=== PATIENT | male | born 1950 | race Caucasian/White ===

== ENCOUNTER 2016-06-07 05:25 | Inpatient (IN) ==
--- NOTE | 2016-06-07 05:30 | Emergency Department Note ---
Disposition Clinical Impression: Cirrhosis of liver, Ascites, Right flank pain, Colitis Disposition: Admitted As Inpatient Condition: Undetermined General Adult HPI - General Chief complaint: ED Abdominal Pain Stated complaint: abdominal Pain Time Seen by Provider: 06/07/16 05:27 - Related Data Home Medications Medication Instructions Recorded Confirmed Cholecalciferol (Vitamin D3) 1,000 unit PO DAILY 05/13/15 06/07/16 [Vitamin D] Insulin ASPART [NovoLOG] 48 - 94 unit SQ TIDWM 05/13/15 06/07/16 Ropinirole HCl [Requip] 2 mg PO HS 05/13/15 06/07/16 Venlafaxine HCl [Effexor Xr] 75 mg PO DAILY 05/13/15 06/07/16 Aspirin Enteric Coated [Aspirin EC] 81 mg PO DAILY 11/13/15 06/07/16 Atorvastatin [Lipitor] 40 mg PO HS 11/13/15 06/07/16 Insulin Glargine,Hum.rec.anlog 160 unit SQ BID 11/13/15 06/07/16 [Lantus Solostar] Lactulose 30 gm PO BID 11/13/15 06/07/16 Melatonin/Pyridoxine HCl (B6) 6 mg PO HS 11/13/15 06/07/16 [Melatonin 3 mg Tablet] Omeprazole [PriLOSEC] 20 mg PO DAILY 11/13/15 06/07/16 Tamsulosin [Flomax] 0.4 mg PO DAILY 11/13/15 06/07/16 Tiotropium [Spiriva] 2 puff IH DAILY 11/13/15 06/07/16 Cyclobenzaprine [Flexeril] 5 mg PO Q8H PRN 05/16/16 06/07/16 Furosemide [Lasix] 40 mg PO DAILY 05/16/16 06/07/16 Lisinopril [Zestril] 2.5 mg PO DAILY 05/16/16 06/07/16 Metformin HCl [Metformin HCl ER] 1,000 mg PO BID 05/16/16 06/07/16 RisperiDONE [Risperdal] 3 mg PO HS 05/16/16 06/07/16 Rivaroxaban [Xarelto] 10 mg PO DAILY 05/16/16 06/07/16 Sertraline [Zoloft] 50 mg PO DAILY 05/16/16 06/07/16 Spironolactone [Aldactone] 50 mg PO DAILY 05/16/16 06/07/16 Atenolol [Tenormin] 50 mg PO DAILY 05/29/16 06/07/16 Oxycodone HCl 10 mg PO Q6H PRN 05/29/16 06/07/16 Potassium Chloride [K-Tab ER] 10 meq PO BID 05/29/16 06/07/16 Albuterol Neb [Proventil Neb] 2.5 mg IH QID PRN 06/07/16 06/07/16 Albuterol Sulfate [Albuterol 2 puff IH Q4H PRN 06/07/16 06/07/16 Inhaler] HydrOXYzine Pamoate [Vistaril] 1 cap PO PRN PRN 06/07/16 06/07/16 LevETIRAcetam [Keppra] 750 mg PO BID 06/07/16 06/07/16 Previous Rx's Medication Instructions Recorded Ciprofloxacin [Cipro] 500 mg PO BID #20 tablet 06/01/16 HYDROcodone/Acet 10/325 mg [[place] 1 each PO Q6H PRN #30 tablet 06/01/16 10-325 mg] MetroNIDAZOLE [Flagyl] 500 mg PO TID #30 tablet 06/01/16 Allergies Allergy/AdvReac Type Severity Reaction Status Date / Time Iodinated Contrast Media - Allergy Difficulty Verified 06/07/16 06:25 Oral and Breathing ketorolac [From Toradol] Allergy Nausea Verified 06/07/16 06:25 Penicillins Allergy Rash Verified 06/07/16 06:25 butorphanol [From Stadol] AdvReac Nausea Verified 06/08/16 17:28 celecoxib AdvReac unknown Verified 06/07/16 06:25 gabapentin AdvReac unknown Verified 06/07/16 09:34 mirtazapine AdvReac unknown Verified 06/07/16 06:25 tramadol AdvReac unknown Verified 06/07/16 06:25 vancomycin AdvReac unknown Verified 06/07/16 06:25 Past Medical History - Past Medical History Medical history: Reports: cirrhosis, CHF, COPD, coronary artery disease, diabetes, hyperlipidemia, hypertension, TIA Surgical history: Reports: appendectomy, cholecystectomy, herniorrhaphy, knee replacement, other Psychiatric history: Reports: anxiety, depression, PTSD - Social History Smoking Status: Never smoker Smokeless Tobacco Status: No Alcohol use: Reports: none Drug use: Reports: none, other Course Vital Signs Temperature 97.9 F 06/07/16 05:27 Pulse Rate 104 06/07/16 05:27 Respiratory Rate 20 06/07/16 05:27 Blood Pressure 150/79 06/07/16 05:27 O2 Sat by Pulse Oximetry 98 06/07/16 05:27 Temperature 97.5 F L 06/09/16 07:00 Pulse Rate 88 06/09/16 07:00 Respiratory Rate 18 06/09/16 07:00 Blood Pressure 153/82 06/09/16 07:00 O2 Sat by Pulse Oximetry 95 06/09/16 07:00 Oxygen Delivery Oxygen Delivery Room Air Medical Decision Making - Lab Data Result diagrams: 06/08/16 05:07 06/08/16 05:07 Lab Results 06/07/16 06/07/16 06/07/16 Range/Units 06:15 06:15 06:15 WBC 2.5 L (4.3-11.1) K/mcL RBC 2.81 L (4.19-5.50) M/mcL Hgb 8.1 L (12.9-16.9) g/dL Hct 25.1 L (37.5-50.1) % MCV 89.3 (83.0-100.0) fL MCH 28.8 (28.0-33.3) pg MCHC 32.3 (31.6-35.5) g/dL RDW 14.6 H (11.5-14.5) % Plt Count 94 L (140-400) K/mcL MPV 11.0 (9.4-12.4) fL Immature Gran % 0.4 (0-4) % Seg Neutrophils % 50.6 % Lymphocytes % 30.8 % Monocytes % 14.2 % Eosinophils % 3.2 % Basophils % 0.8 % Neutrophils # 1.3 L (1.6-8.9) K/mcL Lymphocytes # 0.8 (0.6-4.6) K/mcL Monocytes # 0.4 (0.0-1.3) K/mcL Eosinophils # 0.1 (0.0-0.6) K/mcL Basophils # 0.0 (0.0-0.2) K/mcL Reactive Lymphocytes Present A (Not Present) Platelet Estimate Slight Decrease L (Normal) Immature Plt Fraction 4.4 (1.1-6.1) % Anisocytosis 1+ A (Not Present) Sodium 134 L (136-145) mEq/L Potassium 5.1 H (3.5-4.5) mEq/L Chloride 106 (98-109) mEq/L Carbon Dioxide 23 (19-29) mEq/L BUN 15 (8-26) mg/dL Creatinine 0.87 (0.72-1.25) mg/dL Est GFR ( Amer) > 60 (> 60) Est GFR (Non-Af Amer) > 60 (> 60) BUN/Creatinine Ratio 17 (6-26) Glucose 219 H (70-99) mg/dL Calculated Osmolality 286 (280-300) Lactic Acid 1.9 (0.5-2.2) mmol/L Calcium 8.7 (8.6-10.8) mg/dL Total Bilirubin 0.4 (0.2-1.2) mg/dL AST 31 (5-34) Units/L ALT 18 (0-55) Units/L Alkaline Phosphatase 123 (38-126) Units/L Creatine Kinase 72 (30-200) Units/L Serum Total Protein 5.9 L (6.0-8.3) g/dL Albumin 2.4 L (3.5-5.0) g/dL Globulin 3.5 (2.4-3.5) g/dL Albumin/Globulin Ratio 0.7 L (1.1-2.2) Attestation Statement - Attestation Attestation: I examined this patient and my medical decision-making was reviewed with the ELECTRIC POWER LINE REPAIRER/PA/Advanced Practice Nurse/Resident Physician. I agree with the documented findings, disposition and treatment plan as described except to the extent set forth below. [id number] time provided in conjunction with the resident physician Dr. Balderrama Patient presents by EMS from home complaining of upper abdominal pain. He has a known history of liver cirrhosis. He was recently admitted to our facility for similar symptoms. He appears older than stated age on exam. Plan of care and management discussed by me with resident physician 06:14: Care to be endorsed to the oncoming physician Dr. Alcantara at 7 AM pending labs, CT abdomen and pelvis and reevaluation. Oncoming physician to determine final disposition
--- NOTE | 2016-06-07 05:44 | Emergency Department Note ---
Disposition Clinical Impression: Right flank pain, Colitis Cirrhosis of liver Qualifiers: Hepatic cirrhosis type: other cirrhosis Qualified Code(s): K74.69 - Other cirrhosis of liver Ascites Qualifiers: Ascites type: other type Qualified Code(s): R18.8 - Other ascites Disposition: Admitted As Inpatient Condition: Undetermined Time of Disposition: 07:00 Abdominal Pain HPI - General Chief Complaint: ED Abdominal Pain Stated Complaint: abdominal Pain Time Seen by Provider: 06/07/16 05:27 Source: patient, EMS Nursing Notes Reviewed: Yes Vital Signs Reviewed: Yes - History of Present Illness HPI Narrative: Patient is 66-year-old male complains of abdominal distention and abdominal pain along the right flank just posterior to mid axillary line patient has a history of cirrhosis secondary to diabetes, and CHF. Patient states that pain is sharp stabbing his radiate around the flank to lower right quadrant. Patient states started yesterday. Patient states nothing makes the pain better nothing makes it worse. Patient had colonoscopy 1 week ago but does not know the results of the tests. Patient thinks Dr. Peace did the procedure. Past surgeries include cholecystectomy, appendectomy. Patient denies tobacco use, patient denies recent drug use. Patient states last use cocaine and opioids pills was 4 years ago. He lives at a half-way Pain Scale: 9 - Related Data Home Medications Medication Instructions Recorded Confirmed Cholecalciferol (Vitamin D3) 1,000 unit PO DAILY 05/13/15 06/07/16 [Vitamin D] Insulin ASPART [NovoLOG] 48 - 94 unit SQ TIDWM 05/13/15 06/07/16 Ropinirole HCl [Requip] 2 mg PO HS 05/13/15 06/07/16 Venlafaxine HCl [Effexor Xr] 75 mg PO DAILY 05/13/15 06/07/16 Aspirin Enteric Coated [Aspirin EC] 81 mg PO DAILY 11/13/15 06/07/16 Atorvastatin [Lipitor] 40 mg PO HS 11/13/15 06/07/16 Insulin Glargine,Hum.rec.anlog 160 unit SQ BID 11/13/15 06/07/16 [Lantus Solostar] Lactulose 30 gm PO BID 11/13/15 06/07/16 Melatonin/Pyridoxine HCl (B6) 6 mg PO HS 11/13/15 06/07/16 [Melatonin 3 mg Tablet] Omeprazole [PriLOSEC] 20 mg PO DAILY 11/13/15 06/07/16 Tamsulosin [Flomax] 0.4 mg PO DAILY 11/13/15 06/07/16 Tiotropium [Spiriva] 2 puff IH DAILY 11/13/15 06/07/16 Cyclobenzaprine [Flexeril] 5 mg PO Q8H PRN 05/16/16 06/07/16 Furosemide [Lasix] 40 mg PO DAILY 05/16/16 06/07/16 Lisinopril [Zestril] 2.5 mg PO DAILY 05/16/16 06/07/16 Metformin HCl [Metformin HCl ER] 1,000 mg PO BID 05/16/16 06/07/16 RisperiDONE [Risperdal] 3 mg PO HS 05/16/16 06/07/16 Rivaroxaban [Xarelto] 10 mg PO DAILY 05/16/16 06/07/16 Sertraline [Zoloft] 50 mg PO DAILY 05/16/16 06/07/16 Spironolactone [Aldactone] 50 mg PO DAILY 05/16/16 06/07/16 Atenolol [Tenormin] 50 mg PO DAILY 05/29/16 06/07/16 Oxycodone HCl 10 mg PO Q6H PRN 05/29/16 06/07/16 Potassium Chloride [K-Tab ER] 10 meq PO BID 05/29/16 06/07/16 Albuterol Neb [Proventil Neb] 2.5 mg IH QID PRN 06/07/16 06/07/16 Albuterol Sulfate [Albuterol 2 puff IH Q4H PRN 06/07/16 06/07/16 Inhaler] HydrOXYzine Pamoate [Vistaril] 1 cap PO PRN PRN 06/07/16 06/07/16 LevETIRAcetam [Keppra] 750 mg PO BID 06/07/16 06/07/16 Previous Rx's Medication Instructions Recorded Ciprofloxacin [Cipro] 500 mg PO BID #20 tablet 06/01/16 HYDROcodone/Acet 10/325 mg [[place] 1 each PO Q6H PRN #30 tablet 06/01/16 10-325 mg] MetroNIDAZOLE [Flagyl] 500 mg PO TID #30 tablet 06/01/16 Allergies Allergy/AdvReac Type Severity Reaction Status Date / Time butorphanol [From Stadol] Allergy Nausea Verified 06/07/16 06:25 Iodinated Contrast Media - Allergy Difficulty Verified 06/07/16 06:25 Oral and Breathing ketorolac [From Toradol] Allergy Nausea Verified 06/07/16 06:25 Penicillins Allergy Rash Verified 06/07/16 06:25 celecoxib AdvReac unknown Verified 06/07/16 06:25 gabapentin AdvReac unknown Verified 06/07/16 09:34 mirtazapine AdvReac unknown Verified 06/07/16 06:25 tramadol AdvReac unknown Verified 06/07/16 06:25 vancomycin AdvReac unknown Verified 06/07/16 06:25 Review of Systems: Patient admits to nausea without vomiting. Patient denies chest pain, shortness of breath, heart palpitations, patient denies diarrhea, denies lower left extremity pain or numbness and tingling. he admits to lower right extremity irritation secondary to orthopedic surgery on the knee All systems ED: reviewed and negative except as stated. Abdominal Pain PMH - Past Medical History Medical history: Reports: cirrhosis, CHF, COPD, coronary artery disease, diabetes, hyperlipidemia, hypertension, TIA Male Surgical History: Reports: appendectomy, cholecystectomy, knee replacement , Tonsillectomy, other Psychiatric history: Reports: anxiety, depression, PTSD - Social History Smoking status: Never smoker Alcohol use: Reports: none Drug use: Reports: none, other Physical Exam Vital Signs Temperature 97.9 F 06/07/16 05:27 Pulse Rate 104 06/07/16 05:27 Respiratory Rate 20 06/07/16 05:27 Blood Pressure 150/79 06/07/16 05:27 O2 Sat by Pulse Oximetry 98 06/07/16 05:27 Temperature 97.9 F 06/07/16 05:27 Pulse Rate 104 06/07/16 05:27 Respiratory Rate 20 06/07/16 05:27 Blood Pressure 150/79 06/07/16 05:27 O2 Sat by Pulse Oximetry 98 06/07/16 05:27 Oxygen Delivery Oxygen Delivery Room Air -General Appearance: Patient is a 66-year-old male who appears very uncomfortable secondary to distended abdomen. Patient did have difficulty taking deep breaths secondary to what appears his abdomen exerting pressure on his thoracic cavity. -Neurological exam: Cranial nerves II-12 intact, no focal deficits observed, strength equal 5/5 bilaterally in upper and lower extremities, cerebellar motion test negative. Negative loss of sensation - Head Head exam: atraumatic, normocephalic, normal inspection - Eye Eye exam: Present: normal appearance, PERRL, EOMI, negative for scleral icterus negative for conjunctival pallor - ENT ENT exam: normal exam, normal oropharynx, mucous membranes moist - Neck Neck exam: Present: normal inspection, full ROM, trachea midline, negative JVD - Chest Chest inspection: Present: Patient has bilateral equal rise and fall of chest wall. Tender to palpation - Respiratory Respiratory exam: Clear to auscultation bilaterally without wheezes rales or rhonchi Cardiovascular Cardiovascular exam: Present: Irregular rate and normal rhythm EKG shows sinus tachycardia 100 bpm. No murmurs rubs or gallops - Abdominal Exam Abdominal exam: Present: Tight distended abdomen. Nontender to palpation. Bowel sounds normoactive throughout all 4 quadrants. Negative for hyper or hyperresonance. Patient has tenderness to palpation just posterior to the midaxillary line lower rib area. Surgical scars bordering umbilicus - Extremities Exam Extremities exam: Present: normal inspection, full ROM - Back Exam Back exam: Present: normal inspection, full ROM. Absent: tenderness, CVA tenderness (R), CVA tenderness (L) - Psychiatric Psychiatric exam: Present: normal affect, normal mood - Skin Skin exam: Present: warm, dry, intact, normal color - General Limitations: no limitations General appearance: alert Course Course Narrative: seen and examined, labs and imaging ordered. - Reevaluation(s) Reevaluation #1: Patient administer 1 mg Dilaudid for pain Time: 06:22 Vital Signs Temperature 97.9 F 06/07/16 05:27 Pulse Rate 104 06/07/16 05:27 Respiratory Rate 20 06/07/16 05:27 Blood Pressure 150/79 06/07/16 05:27 O2 Sat by Pulse Oximetry 98 06/07/16 05:27 Temperature 98.9 F 06/08/16 00:54 Pulse Rate 113 06/08/16 00:54 Respiratory Rate 20 06/08/16 00:54 Blood Pressure 164/79 06/08/16 00:54 O2 Sat by Pulse Oximetry 93 L 06/08/16 00:54 Oxygen Delivery Oxygen Delivery Room Air Abdominal Pain - MDM Narrative Medical decision making narrative: Patient's condition worsened for worsening cirrhosis with possible increasing ascites causing his abdominal distention. Abdomen is very distended what appears to have mild fluid wave. Patient weight in CT and lab results. Patient's care will be transferred to day team. Dr. Khanna. - Lab Data Lab results reviewed: Yes I reviewed the patient's lab results. Result diagrams: 06/07/16 06:15 06/08/16 05:07 Lab Results 06/07/16 06/07/16 06/07/16 Range/Units 06:15 06:15 06:15 WBC 2.5 L (4.3-11.1) K/mcL RBC 2.81 L (4.19-5.50) M/mcL Hgb 8.1 L (12.9-16.9) g/dL Hct 25.1 L (37.5-50.1) % MCV 89.3 (83.0-100.0) fL MCH 28.8 (28.0-33.3) pg MCHC 32.3 (31.6-35.5) g/dL RDW 14.6 H (11.5-14.5) % Plt Count 94 L (140-400) K/mcL MPV 11.0 (9.4-12.4) fL Immature Gran % 0.4 (0-4) % Seg Neutrophils % 50.6 % Lymphocytes % 30.8 % Monocytes % 14.2 % Eosinophils % 3.2 % Basophils % 0.8 % Neutrophils # 1.3 L (1.6-8.9) K/mcL Lymphocytes # 0.8 (0.6-4.6) K/mcL Monocytes # 0.4 (0.0-1.3) K/mcL Eosinophils # 0.1 (0.0-0.6) K/mcL Basophils # 0.0 (0.0-0.2) K/mcL Reactive Lymphocytes Present A (Not Present) Platelet Estimate Slight Decrease L (Normal) Immature Plt Fraction 4.4 (1.1-6.1) % Anisocytosis 1+ A (Not Present) Sodium 134 L (136-145) mEq/L Potassium 5.1 H (3.5-4.5) mEq/L Chloride 106 (98-109) mEq/L Carbon Dioxide 23 (19-29) mEq/L BUN 15 (8-26) mg/dL Creatinine 0.87 (0.72-1.25) mg/dL Est GFR ( Amer) > 60 (> 60) Est GFR (Non-Af Amer) > 60 (> 60) BUN/Creatinine Ratio 17 (6-26) Glucose 219 H (70-99) mg/dL Calculated Osmolality 286 (280-300) Lactic Acid 1.9 (0.5-2.2) mmol/L Calcium 8.7 (8.6-10.8) mg/dL Total Bilirubin 0.4 (0.2-1.2) mg/dL AST 31 (5-34) Units/L ALT 18 (0-55) Units/L Alkaline Phosphatase 123 (38-126) Units/L Creatine Kinase 72 (30-200) Units/L Serum Total Protein 5.9 L (6.0-8.3) g/dL Albumin 2.4 L (3.5-5.0) g/dL Globulin 3.5 (2.4-3.5) g/dL Albumin/Globulin Ratio 0.7 L (1.1-2.2) - EKG Data EKG attestation: Yes I reviewed and interpreted this EKG. EKG results narrative: EKG dated 06/07/2016 at 0551 hrs. shows ventricular rate of 100 beats her and signify sinus tachycardia patient has no acute abnormalities pertaining to ST segments. No previous EKG for comparison
[2016-06-07] MEDS ORDERED: *HR* HYDROmorphone 2 MG/ML SYRINGE IV ONE ×2 (06:18→07:23)
[2016-06-07 06:33] LABS: Basophils % 0.8 %; Eosinophils # 0.1 K/mcL (0.0-0.6); Eosinophils % 3.2 %; Hematocrit 25.1 % (37.5-50.1); Hemoglobin 8.1 g/dL (12.9-16.9); Immature Granulocytes % 0.4 % (0-4); Immature Platelets 4.4 % (1.1-6.1); Lymphocytes # 0.8 K/mcL (0.6-4.6); Lymphocytes % 30.8 %; Mean Corpuscular HGB Conc 32.3 g/dL (31.6-35.5); Mean Corpuscular Hemoglobin 28.8 pg (28.0-33.3); Mean Corpuscular Volume 89.3 fL (83.0-100.0); Monocytes # 0.4 K/mcL (0.0-1.3); Monocytes % 14.2 %; Neutrophils # 1.3 K/mcL (1.6-8.9); Red Blood Count 2.81 M/mcL (4.19-5.50); Red Cell Distribution Width 14.6 % (11.5-14.5); Segmented Neutrophils % 50.6 %
[2016-06-07 06:34] LABS: Platelet Count 94 K/mcL (140-400)
[2016-06-07 06:43] LABS: Alanine Aminotransferase 18 Units/L (0-55); Albumin 2.4 g/dL (3.5-5.0); Albumin/Globulin Ratio 0.7 (1.1-2.2); Alkaline Phosphatase 123 Units/L (38-126); Aspartate Amino Transferase 31 Units/L (5-34); BUN/Creatinine Ratio 17 (6-26); Bilirubin,Total 0.4 mg/dL (0.2-1.2); Blood Urea Nitrogen 15 mg/dL (8-26); Calcium 8.7 mg/dL (8.6-10.8); Carbon Dioxide 23 mEq/L (19-29); Chloride 106 mEq/L (98-109); Creatine Kinase 72 Units/L (30-200); Globulin 3.5 g/dL (2.4-3.5); Glucose 219 mg/dL (70-99); Osmolality,Calculated 286 (280-300); Sodium 134 mEq/L (136-145); Total Protein 5.9 g/dL (6.0-8.3); eGFR For African Americans > 60 (> 60); eGFR For Non-African Americans > 60 (> 60)
[2016-06-07 06:45] LABS: Potassium 5.1 mEq/L (3.5-4.5)
[2016-06-07 06:52] LABS: Anisocytosis 1+ (Not Present); Platelet Estimate Slight Decrease (Normal); Reactive Lymphocytes Present (Not Present)
--- NOTE | 2016-06-07 08:05 | Emergency Department Note ---
Disposition Clinical Impression: Right flank pain, Colitis Cirrhosis of liver Qualifiers: Hepatic cirrhosis type: other cirrhosis Qualified Code(s): K74.69 - Other cirrhosis of liver Ascites Qualifiers: Ascites type: other type Qualified Code(s): R18.8 - Other ascites Disposition: Admitted As Inpatient Referrals: NO,PCP [Non-Partnered Physician] - Forms: ED Satisfaction Letter, Work/School Release Time of Disposition: 08:59 General Adult HPI - General Chief complaint: ED Abdominal Pain Stated complaint: abdominal Pain Time Seen by Provider: 06/07/16 05:27 Source: patient, EMS Limitations: no limitations Nursing Notes Reviewed: Yes - History of Present Illness Pain Scale: 8 - Related Data Home Medications Medication Instructions Recorded Confirmed Cholecalciferol (Vitamin D3) 1,000 unit PO DAILY 05/13/15 05/29/16 [Vitamin D] Insulin ASPART [NovoLOG] 48 - 94 unit SQ TIDWM 05/13/15 05/29/16 Ropinirole HCl [Requip] 2 mg PO HS 05/13/15 05/29/16 Venlafaxine HCl [Effexor Xr] 75 mg PO DAILY 05/13/15 05/29/16 Aspirin Enteric Coated [Aspirin EC] 81 mg PO DAILY 11/13/15 05/29/16 Atorvastatin [Lipitor] 40 mg PO HS 11/13/15 05/29/16 Insulin Glargine,Hum.rec.anlog 160 unit SQ BID 11/13/15 05/29/16 [Lantus Solostar] Lactulose 30 gm PO BID 11/13/15 05/29/16 LevETIRAcetam [Levetiracetam] 750 mg PO BID 11/13/15 05/29/16 Melatonin/Pyridoxine HCl (B6) 6 mg PO HS 11/13/15 05/29/16 [Melatonin 3 mg Tablet] Omeprazole [PriLOSEC] 20 mg PO DAILY 11/13/15 05/29/16 Tamsulosin [Flomax] 0.4 mg PO DAILY 11/13/15 05/29/16 Tiotropium [Spiriva] 2 puff IH DAILY 11/13/15 05/29/16 Cyclobenzaprine [Flexeril] 5 mg PO Q8H PRN 05/16/16 05/29/16 Furosemide [Lasix] 40 mg PO DAILY 05/16/16 05/29/16 Lisinopril [Zestril] 2.5 mg PO DAILY 05/16/16 05/29/16 Metformin HCl [Metformin HCl ER] 1,000 mg PO BID 05/16/16 05/29/16 RisperiDONE [Risperdal] 3 mg PO HS 05/16/16 05/29/16 Rivaroxaban [Xarelto] 10 mg PO DAILY 05/16/16 05/29/16 Sertraline [Zoloft] 50 mg PO DAILY 05/16/16 05/29/16 Spironolactone [Aldactone] 50 mg PO DAILY 05/16/16 05/29/16 Atenolol [Tenormin] 50 mg PO DAILY 05/29/16 05/29/16 Oxycodone HCl 10 mg PO Q6H PRN 05/29/16 05/29/16 Potassium Chloride [K-Tab ER] 10 meq PO BID 05/29/16 05/29/16 Previous Rx's Medication Instructions Recorded Ciprofloxacin [Cipro] 500 mg PO BID #20 tablet 06/01/16 HYDROcodone/Acet 10/325 mg [[place] 1 each PO Q6H PRN #30 tablet 06/01/16 10-325 mg] MetroNIDAZOLE [Flagyl] 500 mg PO TID #30 tablet 06/01/16 Allergies Allergy/AdvReac Type Severity Reaction Status Date / Time butorphanol [From Stadol] Allergy Nausea Verified 06/07/16 06:25 Iodinated Contrast Media - Allergy Difficulty Verified 06/07/16 06:25 Oral and Breathing ketorolac [From Toradol] Allergy Nausea Verified 06/07/16 06:25 Penicillins Allergy Rash Verified 06/07/16 06:25 celecoxib AdvReac unknown Verified 06/07/16 06:25 mirtazapine AdvReac unknown Verified 06/07/16 06:25 tramadol AdvReac unknown Verified 06/07/16 06:25 vancomycin AdvReac unknown Verified 06/07/16 06:25 Past Medical History - Past Medical History Medical history: Reports: cirrhosis, CHF, COPD, coronary artery disease, diabetes, hyperlipidemia, hypertension, TIA Surgical history: Reports: appendectomy, cholecystectomy, herniorrhaphy, knee replacement, other Psychiatric history: Reports: anxiety, depression, PTSD - Social History Smoking Status: Never smoker Smokeless Tobacco Status: No Alcohol use: Reports: none Drug use: Reports: none, other Physical Exam - General Limitations: no limitations General appearance: alert Course - Reevaluation(s) Reevaluation #1: 66-year-old with history of cirrhosis comes in complaining of abdominal pain. Seen by Dr. Blackmon. 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 I did review the CT scan which shows some inflammation around the sigmoid colon with the thickening of the sigmoid colon. Time: 07:58 - Consultations Consultation #1: Discussed with , admit Time: 08:59 Vital Signs Temperature 97.9 F 06/07/16 05:27 Pulse Rate 104 06/07/16 05:27 Respiratory Rate 20 06/07/16 05:27 Blood Pressure 150/79 06/07/16 05:27 O2 Sat by Pulse Oximetry 98 06/07/16 05:27 Temperature 97.9 F 06/07/16 05:27 Pulse Rate 97 06/07/16 07:36 Respiratory Rate 19 06/07/16 07:36 Blood Pressure 132/64 06/07/16 07:36 O2 Sat by Pulse Oximetry 94 L 06/07/16 07:36 Oxygen Delivery Oxygen Delivery Room Air Medical Decision Making - Lab Data Lab results reviewed: Yes I reviewed the patient's lab results. Result diagrams: 06/07/16 06:15 06/07/16 06:15 Lab Results 06/07/16 06/07/16 06/07/16 Range/Units 06:15 06:15 06:15 WBC 2.5 L (4.3-11.1) K/mcL RBC 2.81 L (4.19-5.50) M/mcL Hgb 8.1 L (12.9-16.9) g/dL Hct 25.1 L (37.5-50.1) % MCV 89.3 (83.0-100.0) fL MCH 28.8 (28.0-33.3) pg MCHC 32.3 (31.6-35.5) g/dL RDW 14.6 H (11.5-14.5) % Plt Count 94 L (140-400) K/mcL MPV 11.0 (9.4-12.4) fL Immature Gran % 0.4 (0-4) % Seg Neutrophils % 50.6 % Lymphocytes % 30.8 % Monocytes % 14.2 % Eosinophils % 3.2 % Basophils % 0.8 % Neutrophils # 1.3 L (1.6-8.9) K/mcL Lymphocytes # 0.8 (0.6-4.6) K/mcL Monocytes # 0.4 (0.0-1.3) K/mcL Eosinophils # 0.1 (0.0-0.6) K/mcL Basophils # 0.0 (0.0-0.2) K/mcL Reactive Lymphocytes Present A (Not Present) Platelet Estimate Slight Decrease L (Normal) Immature Plt Fraction 4.4 (1.1-6.1) % Anisocytosis 1+ A (Not Present) Sodium 134 L (136-145) mEq/L Potassium 5.1 H (3.5-4.5) mEq/L Chloride 106 (98-109) mEq/L Carbon Dioxide 23 (19-29) mEq/L BUN 15 (8-26) mg/dL Creatinine 0.87 (0.72-1.25) mg/dL Est GFR ( Amer) > 60 (> 60) Est GFR (Non-Af Amer) > 60 (> 60) BUN/Creatinine Ratio 17 (6-26) Glucose 219 H (70-99) mg/dL Calculated Osmolality 286 (280-300) Lactic Acid 1.9 (0.5-2.2) mmol/L Calcium 8.7 (8.6-10.8) mg/dL Total Bilirubin 0.4 (0.2-1.2) mg/dL AST 31 (5-34) Units/L ALT 18 (0-55) Units/L Alkaline Phosphatase 123 (38-126) Units/L Creatine Kinase 72 (30-200) Units/L Serum Total Protein 5.9 L (6.0-8.3) g/dL Albumin 2.4 L (3.5-5.0) g/dL Globulin 3.5 (2.4-3.5) g/dL Albumin/Globulin Ratio 0.7 L (1.1-2.2) - Radiology Data Radiology results reviewed: Yes I reviewed the patient's radiology results. Abdomen/Pelvis CT 06/07/16 05:38 IMPRESSION: Small bilateral pleural effusions with bibasilar ground-glass opacity and interlobular septal thickening. Correlation for edema is recommended. Cirrhotic morphology liver with splenomegaly. Increased mesenteric edema is likely related to cirrhosis. Circumferential wall thickening of the rectosigmoid colon suspected with adjacent fat stranding. Correlation for inflammation is recommended. D/ / Cinthia Armenta Cha, MD / Cinthia Armenta Cha, MD Interpreting Provider: Cinthia Armenta Cha, MD
[2016-06-07] MEDS ORDERED: MetroNIDAZOLE 500 MG/100 ML 500 MG/100 ML BAG IVPB ONE (08:58)
[2016-06-07] MEDS ORDERED: Naloxone 0.4 MG/ML INJ IVP PRN (09:28)
[2016-06-07] MEDS ORDERED: Ondansetron 4 MG/2 ML VIAL IVP PRN (09:28)
[2016-06-07] MEDS ORDERED: Acetaminophen 325 MG TABLET PO PRN (09:28)
--- NOTE | 2016-06-07 09:28 | Internal Med History&Physical ---
<Kandis Vaughn - Last Filed: 06/07/16 09:44> Date of Encounter: 06/07/16 Time of Encounter: 08:50 Assessment and Plan (1) Abdominal pain Current visit: No Status: Acute - Pressure-like abdominal pain mostly at RLQ with abdominal distension. - Likely multifactorial including urinary retention, colitis and/or liver cirrhosis. - Navarro catheter for urinary retention. - Continue Cipro & Flagyl for colitis. - Percocet prn pain. - Zofran prn nausea/vomiting. - Continue to monitor. Qualifiers: Abdominal location: lower abdomen, unspecified Qualified Code(s): R10.30 - Lower abdominal pain, unspecified (2) Urinary retention Current visit: Yes Status: Acute - CT A/P showed significant enlarged urinary bladder compared to prior study. - Likely secondary to diabetes-associated neurogenic bladder in the setting of BPH. - Will have Navarro placed. - Consider urology consult or outpatient referral depending patient's clinical progression. (3) Hyperkalemia Current visit: Yes Status: Acute - K at 5.1 on initial presentation. - Likely secondary to supplemental K use at home. - Hold K supplement. - Continue to monitor. (4) Colitis Current visit: Yes Status: Acute - CT A/P suggests rectosigmoid colon inflammation. - Colonoscopy on 05/31/16 found diffuse inflammation and edema of rectum. Biopsy suggests possible infectious colitis vs. early IBD. - Unlikely ischemic colitis given normal lactic acid. - Likely improves since prior hospitalization given decrease in diarrhea per patient. - Continue Cipro & Flagyl. (5) Cirrhosis of liver Current visit: Yes Status: Chronic - Clinically stable with no significant sign of hepatic encephalopathy. - Continue lactulose. Qualifiers: Hepatic cirrhosis type: other cirrhosis Qualified Code(s): K74.69 - Other cirrhosis of liver (6) Pancytopenia Current visit: No Status: Chronic - Chronic pancytopenia, likely secondary to his liver cirrhosis. - Continue to monitor with CBC. (7) DM2 (diabetes mellitus, type 2) Current visit: No Status: Chronic - Levemir 50 units BID and sliding scale insulin. - Diabetic diet. Qualifiers: Diabetes mellitus complication status: with hyperglycemia Diabetes mellitus group home insulin use: with intermediate designer use Qualified Code(s): E11.65 - Type 2 diabetes mellitus with hyperglycemia; Z79.4 - intermodal customer service (current) use of insulin (8) CAD (coronary artery disease) Current visit: No Status: Chronic - Continue aspirin, beta-pranay, BIBIANA-I and statin. Qualifiers: Coronary Disease-Associated Artery/Lesion type: unspecified vessel or lesion type [place] vs. transplanted heart: [place] heart Associated angina: without angina Qualified Code(s): I25.10 - Atherosclerotic heart disease of [place] coronary artery without angina pectoris (9) DVT prophylaxis Current visit: No Status: Acute - On Xarelto. Internal Medicine - H&P: HPI Chief complaint: Right flank pain & abdominal distension Admitted From: Emergency Dept Plans for Post Hospital Care: Home History of present illness: Mr. Ramirez is a 66 year old male with PMH of liver cirrhosis, DM, CAD, COPD, HTN and HLD. Patient presented with complaint of worsening right flank pain and abdominal distension for several days. Patient describes the pain as constant pressure affecting mostly right lower quadrant. It's associated with some nausea and shortness of breath. Patient has some diarrhea before but that has been getting better. Patient had colonoscopy by Dr. Peace on 05/31/16 which found diffuse inflammation and edema of rectum. Biopsy suggests possible infectious colitis vs. early IBD or ischemia. Patient was discharged on with 10-day course of Cipro & Flagyl, which patient has been taking. Patient denies fever, chills, chest pain, vomiting, hematochezia, melena. Patient states his urination usually starts slowly but denies dysuria or hematuria. Patient is full code. Past Med Surg Social Fam HX - Past Medical History Medical history: cirrhosis, CHF, COPD, coronary artery disease, diabetes, hyperlipidemia, hypertension, TIA Psychiatric history: anxiety, depression, PTSD - Past Surgical History Surgical History: appendectomy, cholecystectomy, herniorrhaphy, knee replacement , other - Social History Smoking Status: Never smoker Smokeless Tobacco Status: No Alcohol use: none Drug use: none, other - Family History Mother Living Status: Hx Family Cancer: Yes Internal Medicine - H&P: Meds Cholecalciferol (Vitamin D3) [Vitamin D] 1,000 unit PO DAILY 05/13/15 [History] Insulin ASPART [NovoLOG] 48 - 94 unit SQ TIDWM 05/13/15 [History] Ropinirole HCl [Requip] 2 mg PO HS 05/13/15 [History] Venlafaxine HCl [Effexor Xr] 75 mg PO DAILY 05/13/15 [History] Aspirin Enteric Coated [Aspirin EC] 81 mg PO DAILY 11/13/15 [History] Atorvastatin [Lipitor] 40 mg PO HS 11/13/15 [History] Insulin Glargine,Hum.rec.anlog [Lantus Solostar] 160 unit SQ BID 11/13/15 [ History] Lactulose 30 gm PO BID 11/13/15 [History] Melatonin/Pyridoxine HCl (B6) [Melatonin 3 mg Tablet] 6 mg PO HS 11/13/15 [ History] Omeprazole [PriLOSEC] 20 mg PO DAILY 11/13/15 [History] Tamsulosin [Flomax] 0.4 mg PO DAILY 11/13/15 [History] Tiotropium [Spiriva] 2 puff IH DAILY 11/13/15 [History] Cyclobenzaprine [Flexeril] 5 mg PO Q8H PRN 05/16/16 [History] Furosemide [Lasix] 40 mg PO DAILY 05/16/16 [History] Lisinopril [Zestril] 2.5 mg PO DAILY 05/16/16 [History] Metformin HCl [Metformin HCl ER] 1,000 mg PO BID 05/16/16 [History] RisperiDONE [Risperdal] 3 mg PO HS 05/16/16 [History] Rivaroxaban [Xarelto] 10 mg PO DAILY 05/16/16 [History] Sertraline [Zoloft] 50 mg PO DAILY 05/16/16 [History] Spironolactone [Aldactone] 50 mg PO DAILY 05/16/16 [History] Atenolol [Tenormin] 50 mg PO DAILY 05/29/16 [History] Oxycodone HCl 10 mg PO Q6H PRN 05/29/16 [History] Potassium Chloride [K-Tab ER] 10 meq PO BID 05/29/16 [History] Ciprofloxacin [Cipro] 500 mg PO BID #20 tablet 06/01/16 [Rx] HYDROcodone/Acet 10/325 mg [[place] 10-325 mg] 1 each PO Q6H PRN #30 tablet [Rx] MetroNIDAZOLE [Flagyl] 500 mg PO TID #30 tablet 06/01/16 [Rx] Albuterol Neb [Proventil Neb] 2.5 mg IH QID PRN 06/07/16 [History] Albuterol Sulfate [Albuterol Inhaler] 2 puff IH Q4H PRN 06/07/16 [History] LevETIRAcetam [Keppra] 750 mg PO BID 06/07/16 [History] Allergies butorphanol [From Stadol] Allergy (Verified 06/07/16 06:25) Nausea Iodinated Contrast Media - Oral and Allergy (Verified 06/07/16 06:25) Difficulty Breathing ketorolac [From Toradol] Allergy (Verified 06/07/16 06:25) Nausea Penicillins Allergy (Verified 06/07/16 06:25) Rash celecoxib Adverse Reaction (Verified 06/07/16 06:25) [facility] gabapentin Adverse Reaction (Verified 06/07/16 09:34) unknown [facility] list. mirtazapine Adverse Reaction (Verified 06/07/16 06:25) unknown [facility] tramadol Adverse Reaction (Verified 06/07/16 06:25) unknown [facility] vancomycin Adverse Reaction (Verified 06/07/16 06:25) unknown [facility] All Systems PM: A 10-system review of systems was performed and is negative for pertinent findings except as documented above in the HPI. - Constitutional Constitutional: no anorexia, no chills, no fever(s) - EENT Eyes: no change in vision Ears: no decreased hearing Nose, mouth and throat: no dysphagia - Cardiovascular Cardiovascular ROS IM: edema (BLE), no chest pain, no palpitations, no syncope - Respiratory Respiratory: cough, dyspnea, no hemoptysis, no excessive phlegm production - Gastrointestinal Gastrointestinal: as per HPI, abdominal pain (RLQ), nausea, no hematochezia, no melena, no vomiting - Genitourinary Genitourinary ROS male: as per HPI, no dysuria, no hematuria - Integumentary Integumentary IM: no pruritus, no rash - Neurological Neurological ROS: no focal weakness, no numbness, no tingling - Hematologic/Lymphatic Hematologic/Lymphatic: no easy bleeding, no easy bruising - Constitutional Vitals: Temp Pulse Resp BP Pulse Ox 97.9 F 97 19 132/64 94 L 06/07/16 05:27 06/07/16 07:36 06/07/16 07:36 06/07/16 07:36 06/07/16 07:36 General appearance: Present: cooperative, A&O X 3, no acute distress, answers questions appropriately - Head Head exam: Present: atraumatic, normocephalic - Eye Eye exam: Present: PERRL, conjuntiva pink, sclera anicteric - Neck Neck exam general surgery: Present: supple, trachea midline. Absent: lymphadenopathy - Respiratory Respiratory exam: Present: CTAB. Absent: accessory muscle use, rales, rhonchi, wheezes - Cardiovascular Cardiovascular exam: Present: RRR, +S1, +S2. Absent: diastolic murmur, gallop, rubs, systolic murmur - GI/Abdominal GI/Abdominal exam: Present: normal bowel sounds, soft, tenderness (RLQ > RUQ > LLQ), no peritoneal signs. Absent: distended - Extremities Exam Extremities exam: Present: warm, radial pulses palpable and symetrical. Absent : calf tenderness, cyanotic, pedal edema - Neurological Exam Neurological exam: Present: CN II-XII intact, oriented X3, no focal deficits. Absent: pronater drift, facial droop, speech deficit - Skin Skin exam: Present: dry, intact, warm Internal Med - H&P Results - Labs CBC & Chem 7: 06/07/16 06:15 06/07/16 06:15 Labs: Short CBC 06/07/16 Range/Units 06:15 WBC 2.5 L (4.3-11.1) K/mcL Hgb 8.1 L (12.9-16.9) g/dL Hct 25.1 L (37.5-50.1) % Plt Count 94 L (140-400) K/mcL Neutrophils # 1.3 L (1.6-8.9) K/mcL BMP 06/07/16 06:15 Sodium 134 L Potassium 5.1 H Chloride 106 Carbon Dioxide 23 BUN 15 Creatinine 0.87 Glucose 219 H Calcium 8.7 Liver Function 06/07/16 Range/Units 06:15 Total Bilirubin 0.4 (0.2-1.2) mg/dL AST 31 (5-34) Units/L ALT 18 (0-55) Units/L Alkaline Phosphatase 123 (38-126) Units/L Albumin 2.4 L (3.5-5.0) g/dL - Impressions ITS Impressions Abdomen/Pelvis CT 06/07/16 05:38 IMPRESSION: Small bilateral pleural effusions with bibasilar ground-glass opacity and interlobular septal thickening. Correlation for edema is recommended. Cirrhotic morphology liver with splenomegaly. Increased mesenteric edema is likely related to cirrhosis. Circumferential wall thickening of the rectosigmoid colon suspected with adjacent fat stranding. Correlation for inflammation is recommended. D/ / Cinthia Armenta Cha, MD / Cinthia Armenta Cha, MD Interpreting Provider: Cinthia Armenta Cha, MD <Wiley Painter - Last Filed: 06/07/16 11:28> Date of Encounter: 06/07/16 Internal Medicine - H&P: HPI History of present illness: Mr. Ramirez is a 66 year old male All Systems PM: A 10-system review of systems was performed and is negative for pertinent findings except as documented above in the HPI. - Constitutional Vitals: Temp Pulse Resp BP Pulse Ox 97.9 F 98 19 117/75 95 06/07/16 05:27 06/07/16 09:49 06/07/16 10:18 06/07/16 10:18 06/07/16 09:49 Internal Med - H&P Results - Labs CBC & Chem 7: 06/07/16 06:15 06/07/16 06:15 - Attending Attestation I have seen and examined this patient independently. I have discussed the case with the resident, Dr. Vaughn. I agree with the data gathering in the HPI, physical examination findings, assessment and plan as documented by the resident. Abd pain, recently discharged, possible colitis in setting of cirrhosis. Additionally, evidence of urinary retention. Refused navarro. Eventually was able to urinate, will continue monitoring. IV antibiotics. Possible sleep apnea, will do nocturnal pulse ox eval. The plan of care was discussed in detail with the patient, he expressed understanding.
[2016-06-07] MEDS ORDERED: *HR* HYDROcodone/Acet 10/325 mg TABLET PO PRN (09:35)
[2016-06-07] MEDS ORDERED: D5% in Water 1,000 ML IV PRN (09:39)
[2016-06-07] MEDS ORDERED: Dextrose Gel 15 GM PO PRN ×2 (09:39)
[2016-06-07] MEDS ORDERED: *HR* Dextrose 50 % in Water (Syg) 50 ML SYRINGE IVP PRN (09:39)
[2016-06-07] MEDS: Insulin LISPRO 300 UNITS/3 ML VIAL SQ SCH ×2 (11:48→20:05)
[2016-06-07] MEDS: Insulin DETEMIR 100 UNIT/ML X5UNITS SQ SCH ×2 (11:48→22:35)
[2016-06-07] MEDS: *HR* HYDROcodone/Acet 10/325 mg TABLET PO PRN ×2 (15:20→20:06)
[2016-06-07] MEDS: hydrOXYzine pamoate 25 MG CAPSULE PO PRN (15:20)
[2016-06-07] MEDS: MetroNIDAZOLE 500 MG/100 ML 500 MG/100 ML BAG IVPB SCH ×2 (16:54→23:48)
[2016-06-07] MEDS: Lactulose Oral Soln 20 GM/30 ML UDC PO SCH (20:05)
[2016-06-07] MEDS: RisperiDAL 3 MG TABLET PO SCH (20:05)
[2016-06-07] MEDS: rOPINIRole 1 MG TABLET PO SCH (20:05)
[2016-06-07] MEDS: levETIRAcetam 250 MG TABLET PO SCH (20:05)
[2016-06-07] MEDS ORDERED: INSULIN GLARGINE HUM REC ANLOG SQ SCH (21:00)
[2016-06-07] MEDS ORDERED: Insulin LISPRO 300 UNITS/3 ML VIAL SQ SCH (21:00)
[2016-06-07] MEDS ORDERED: [UNRECOGNIZED DRUG - OTHER] SQ SCH (21:00)
[2016-06-08] MEDS: *HR* HYDROcodone/Acet 10/325 mg TABLET PO PRN ×5 (00:01→20:06)
[2016-06-08] MEDS: hydrOXYzine pamoate 25 MG CAPSULE PO PRN ×4 (00:53→20:05)
[2016-06-08 05:55] LABS: INR 1.3; Prothrombin Time 14.6 Seconds (9.4-12.1)
[2016-06-08 06:21] LABS: Basophils % 0.8 %; Eosinophils # 0.1 K/mcL (0.0-0.6); Eosinophils % 3.2 %; Hematocrit 25.5 % (37.5-50.1); Hemoglobin 8.3 g/dL (12.9-16.9); Mean Corpuscular HGB Conc 32.5 g/dL (31.6-35.5); Mean Corpuscular Hemoglobin 28.5 pg (28.0-33.3); Mean Corpuscular Volume 87.6 fL (83.0-100.0); Mean Platelet Volume 11.6 fL (9.4-12.4); Monocytes # 0.3 K/mcL (0.0-1.3); Monocytes % 11.3 %; Neutrophils # 1.4 K/mcL (1.6-8.9); Platelet Count 106 K/mcL (140-400); Red Blood Count 2.91 M/mcL (4.19-5.50); Red Cell Distribution Width 14.5 % (11.5-14.5); Segmented Neutrophils % 54.7 %
[2016-06-08 06:36] LABS: Alanine Aminotransferase 20 Units/L (0-55); Albumin 2.3 g/dL (3.5-5.0); Albumin/Globulin Ratio 0.6 (1.1-2.2); Alkaline Phosphatase 119 Units/L (38-126); Aspartate Amino Transferase 34 Units/L (5-34); BUN/Creatinine Ratio 15 (6-26); Bilirubin,Total 0.4 mg/dL (0.2-1.2); Blood Urea Nitrogen 13 mg/dL (8-26); Calcium 8.5 mg/dL (8.6-10.8); Carbon Dioxide 26 mEq/L (19-29); Chloride 105 mEq/L (98-109); Globulin 3.6 g/dL (2.4-3.5); Glucose 207 mg/dL (70-99); Osmolality,Calculated 286 (280-300); Potassium 4.3 mEq/L (3.5-4.5); Sodium 135 mEq/L (136-145); Total Protein 5.9 g/dL (6.0-8.3); eGFR For African Americans > 60 (> 60); eGFR For Non-African Americans > 60 (> 60)
[2016-06-08 06:54] LABS: Lymphocytes # 0.8 K/mcL (0.6-4.6)
[2016-06-08] MEDS: levETIRAcetam 250 MG TABLET PO SCH ×2 (07:24→19:57)
[2016-06-08] MEDS: Aspirin Enteric Coated 81 MG Tablet PO SCH (07:24)
[2016-06-08] MEDS: MetroNIDAZOLE 500 MG/100 ML 500 MG/100 ML BAG IVPB SCH ×3 (07:25→23:38)
[2016-06-08] MEDS: *HR* Rivaroxaban 10 MG TABLET PO SCH (07:25)
[2016-06-08] MEDS: Lactulose Oral Soln 20 GM/30 ML UDC PO SCH ×2 (07:29→19:58)
[2016-06-08] MEDS: Insulin LISPRO 300 UNITS/3 ML VIAL SQ SCH ×4 (07:48→17:40)
[2016-06-08] MEDS: Insulin DETEMIR 100 UNIT/ML X5UNITS SQ SCH ×2 (07:58→21:18)
[2016-06-08 08:03] LABS: Hypochromasia Present (Not Present); Platelet Estimate Slight Decrease (Normal); Reactive Lymphocytes Present (Not Present)
--- NOTE | 2016-06-08 14:32 | Electrocardiograph Report ---
[facility] Test Date: 2016-06-07 Pat Name: MIGUELITO MESSINA Department: [id number] Room: 3A35 Gender: M Paralegal Specialist: NATHALIE : 1950 Requested By: Srinivas Parra Order Number: [id number] Reading MD: Elian Montague MD Measurements Intervals [place] Rate: 100 P: 51 MI: 183 QRS: 19 QRSD: 95 T: 30 QT: 322 QTc: 379 Interpretive Statements SINUS TACHYCARDIA Electronically Signed On 06-08-16 14:31:31 EST by Elian Montague MD
[2016-06-08] MEDS ORDERED: Ipratropium/Albuterol Neb 3 ML IH PRN (15:08)
--- NOTE | 2016-06-08 15:19 | Internal Med Progress Note ---
Date of Encounter: 06/08/16 Time of Encounter: 09:00 - Assessment and plan (1) Abdominal pain Current Visit: No Status: Resolved Assessment and plan: Etiology is undetermined. CT of abdomen have been done, shows inflammatory changes. Patient had a recent colonoscopy, was diagnosed as a colitis. Will continue Cipro and Flagyl, pain control, IV fluid. We will send stool sample for C. difficile test. Qualifiers: Abdominal location: right lower quadrant Qualified Code(s): R10.31 - Right lower quadrant pain (2) Colitis Current Visit: Yes Status: Acute Assessment and plan: We will continue IV Cipro and Flagyl. (3) Urinary retention Current Visit: Yes Status: Acute Assessment and plan: Patient was placed on Mendez catheter. (4) Cirrhosis of liver Current Visit: Yes Status: Chronic Assessment and plan: Clinically stable. Continue home medication Qualifiers: Hepatic cirrhosis type: other cirrhosis Qualified Code(s): K74.69 - Other cirrhosis of liver (5) DVT prophylaxis Current Visit: No Status: Acute Assessment and plan: Patient has xarelto low-dose (10mg po qd) in his home medication list. Will continue. (6) Diabetes Current Visit: No Status: Acute Assessment and plan: We will place patient on basal and sliding scale insulin. He use high-dose insulin at home Qualifiers: Diabetes mellitus type: type 2 Diabetes mellitus complication status: without complication Diabetes mellitus residential insulin use: with residential use Qualified Code(s): E11.9 - Type 2 diabetes mellitus without complications ; Z79.4 - joint terminal attack controller (current) use of insulin (7) HTN (hypertension) Current Visit: No Status: Acute Assessment and plan: Stable, continue home medication. Qualifiers: Hypertension type: essential hypertension Qualified Code(s): I10 - Essential (primary) hypertension (8) CHF (congestive heart failure) Current Visit: No Status: Chronic Assessment and plan: No signs of EXACERBATION. Continue home medication Qualifiers: Congestive heart failure type: diastolic Congestive heart failure chronicity: chronic Qualified Code(s): I50.32 - Chronic diastolic (congestive ) heart failure (9) Chronic obstructive pulmonary disease Current Visit: No Status: Chronic Assessment and plan: Stable. We will continue home medication and place patient on DuoNeb when necessary Qualifiers: COPD type: chronic bronchitis Chronic bronchitis type: simple Qualified Code(s): J41.0 - Simple chronic bronchitis - Time Spent With Patient Greater than 35 minutes - Subjective Interval history: Patient is a 66-year-old male admitted for abdominal pain, he was diagnosed as colitis by colonoscopy recently, on Cipro and Flagyl by mouth. Past history is significant for cirrhosis, COPD, CHF, CAD, diabetes, hyperlipidemia, hypertension, TIA. Patient was seen and examined. He still complains of abdominal pain with diarrhea, the diarrhea is mixed [place] with stool. No fever. Vital signs generally stable. Ask for more pain medication. Will continue IV Cipro and Flagyl, closely monitor patient. stool for C. difficile test ordered. - Constitutional Vitals: Temp Pulse Resp BP Pulse Ox 97.6 F 81 16 134/70 98 06/08/16 15:01 06/08/16 15:01 06/08/16 15:01 06/08/16 15:01 06/08/16 15:01 General appearance: Present: cooperative, A&O X 3, no acute distress, answers questions appropriately - Head Head exam: Present: atraumatic, normocephalic - Eye Eye exam: Present: PERRL, conjuntiva pink, sclera anicteric Pupils: Present: PERRL - Neck Neck exam general surgery: Present: supple, trachea midline. Absent: lymphadenopathy - Respiratory Respiratory exam: Present: CTAB. Absent: accessory muscle use, rales, rhonchi, wheezes - Cardiovascular Cardiovascular exam: Present: RRR, +S1, +S2. Absent: diastolic murmur, gallop, rubs, systolic murmur - GI/Abdominal GI/Abdominal exam: Present: normal bowel sounds, soft, tenderness (Mild tenderness on RLQ, without rebound or guarding), no peritoneal signs. Absent: distended - Extremities Exam Extremities exam: Present: warm, radial pulses palpable and symetrical. Absent : calf tenderness, cyanotic, pedal edema - Neurological Exam Neurological exam: Present: CN II-XII intact, oriented X3, no focal deficits. Absent: pronater drift, facial droop, speech deficit - Skin Skin exam: Present: dry, intact Internal Medicine: Result - Labs CBC & Chem 7: 06/08/16 05:07 06/08/16 05:07 Labs: Short CBC 06/08/16 Range/Units 05:07 WBC 2.5 L (4.3-11.1) K/mcL Hgb 8.3 L (12.9-16.9) g/dL Hct 25.5 L (37.5-50.1) % Plt Count 106 L (140-400) K/mcL Neutrophils # 1.4 L (1.6-8.9) K/mcL BMP 06/08/16 05:07 Sodium 135 L Potassium 4.3 Chloride 105 Carbon Dioxide 26 BUN 13 Creatinine 0.84 Glucose 207 H Calcium 8.5 L Liver Function 06/08/16 Range/Units 05:07 Total Bilirubin 0.4 (0.2-1.2) mg/dL AST 34 (5-34) Units/L ALT 20 (0-55) Units/L Alkaline Phosphatase 119 (38-126) Units/L Albumin 2.3 L (3.5-5.0) g/dL - ABG Interpretation ABG results: PT/INR, D-dimer PT 14.6 Seconds (9.4-12.1) H 06/08/16 05:07 - VTE Documentation of Mechanical Device: Intermittent pneumatic compression device Consult Discharge Plan - Plan [facility]errals: [facility] Care Provider[facility] -
[2016-06-08] MEDS: *HR* OxyCODONE Immed Rel 5 MG TABLET PO PRN (17:35)
[2016-06-08] MEDS: Tiotropium 18 MCG inhalation IH SCH (17:40)
[2016-06-08] MEDS: RisperiDAL 3 MG TABLET PO SCH (19:57)
[2016-06-08] MEDS: rOPINIRole 1 MG TABLET PO SCH (19:57)
[2016-06-08] MEDS ORDERED: PYRIDOXINE HCL PO SCH (21:00)
[2016-06-08] MEDS ORDERED: MELATONIN PO SCH (21:00)
[2016-06-08] MEDS ORDERED: Insulin LISPRO 300 UNITS/3 ML VIAL SQ SCH (21:00)
[2016-06-08] MEDS ORDERED: LEVETIRACETAM 750 MG PO SCH (21:00)
[2016-06-09] MEDS: *HR* OxyCODONE Immed Rel 5 MG TABLET PO PRN ×2 (00:19→06:27)
[2016-06-09] MEDS: *HR* HYDROcodone/Acet 10/325 mg TABLET PO PRN ×2 (05:18→11:25)
[2016-06-09] MEDS: Insulin LISPRO 300 UNITS/3 ML VIAL SQ SCH ×4 (08:00→11:29)
[2016-06-09] MEDS: MetroNIDAZOLE 500 MG/100 ML 500 MG/100 ML BAG IVPB SCH (08:00)
[2016-06-09] MEDS: *HR* Rivaroxaban 10 MG TABLET PO SCH (08:02)
[2016-06-09] MEDS: levETIRAcetam 250 MG TABLET PO SCH (08:02)
[2016-06-09] MEDS: Aspirin Enteric Coated 81 MG Tablet PO SCH (08:03)
[2016-06-09] MEDS: Lactulose Oral Soln 20 GM/30 ML UDC PO SCH (08:03)
[2016-06-09] MEDS: Tiotropium 18 MCG inhalation IH SCH (08:14)
[2016-06-09] MEDS: Insulin DETEMIR 100 UNIT/ML X5UNITS SQ SCH (08:23)
[2016-06-09] MEDS: hydrOXYzine pamoate 25 MG CAPSULE PO PRN (08:23)
[2016-06-09 10:47] VITALS: BP 94/55
--- NOTE | 2016-06-09 11:01 | Discharge Summary ---
Date of Encounter: 06/09/16 Time of Encounter: 09:30 - Discharge Diagnosis (1) Abdominal pain Priority: Primary Status: Acute Qualifiers: Abdominal location: lower abdomen, unspecified Qualified Code(s): R10.30 - Lower abdominal pain, unspecified (2) CAD (coronary artery disease) Priority: Secondary Status: Chronic Qualifiers: Coronary Disease-Associated Artery/Lesion type: unspecified vessel or lesion type [place] vs. transplanted heart: [place] heart Associated angina: without angina Qualified Code(s): I25.10 - Atherosclerotic heart disease of [place] coronary artery without angina pectoris (3) Cirrhosis of liver Priority: Secondary Status: Chronic Qualifiers: Hepatic cirrhosis type: other cirrhosis Qualified Code(s): K74.69 - Other cirrhosis of liver (4) Colitis Priority: Secondary Status: Acute (5) DM2 (diabetes mellitus, type 2) Priority: Secondary Status: Chronic Qualifiers: Diabetes mellitus complication status: with hyperglycemia Diabetes mellitus long term care pharmacist insulin use: with long term care pharmacist use Qualified Code(s): E11.65 - Type 2 diabetes mellitus with hyperglycemia; Z79.4 - terminal operator (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 patient takes 10 mEq of potassium chloride twice daily. Will decrease dosage to 10 mEq once daily. (8) Pancytopenia Priority: Secondary Status: Chronic (9) Urinary retention Priority: Secondary Status: Acute - Discharge Medications Prescriptions: Potassium Chloride [K-Tab ER] 10 meq PO DAILY #30 tablet.er Home Medications: Cholecalciferol (Vitamin D3) [Vitamin D] 1,000 unit PO DAILY 05/13/15 [History] Insulin ASPART [NovoLOG] 48 - 94 unit SQ TIDWM 05/13/15 [History] Ropinirole HCl [Requip] 2 mg PO HS 05/13/15 [History] Venlafaxine HCl [Effexor Xr] 75 mg PO DAILY 05/13/15 [History] Aspirin Enteric Coated [Aspirin EC] 81 mg PO DAILY 11/13/15 [History] Atorvastatin [Lipitor] 40 mg PO HS 11/13/15 [History] Insulin Glargine,Hum.rec.anlog [Lantus Solostar] 160 unit SQ BID 11/13/15 [ History] Lactulose 30 gm PO BID 11/13/15 [History] Melatonin/Pyridoxine HCl (B6) [Melatonin 3 mg Tablet] 6 mg PO HS 11/13/15 [ History] Omeprazole [PriLOSEC] 20 mg PO DAILY 11/13/15 [History] Tamsulosin [Flomax] 0.4 mg PO DAILY 11/13/15 [History] Tiotropium [Spiriva] 2 puff IH DAILY 11/13/15 [History] Cyclobenzaprine [Flexeril] 5 mg PO Q8H PRN 05/16/16 [History] Furosemide [Lasix] 40 mg PO DAILY 05/16/16 [History] Lisinopril [Zestril] 2.5 mg PO DAILY 05/16/16 [History] Metformin HCl [Metformin HCl ER] 1,000 mg PO BID 05/16/16 [History] RisperiDONE [Risperdal] 3 mg PO HS 05/16/16 [History] Rivaroxaban [Xarelto] 10 mg PO DAILY 05/16/16 [History] Sertraline [Zoloft] 50 mg PO DAILY 05/16/16 [History] Spironolactone [Aldactone] 50 mg PO DAILY 05/16/16 [History] Atenolol [Tenormin] 50 mg PO DAILY 05/29/16 [History] Oxycodone HCl 10 mg PO Q6H PRN 05/29/16 [History] Ciprofloxacin [Cipro] 500 mg PO BID #20 tablet 06/01/16 [Rx] HYDROcodone/Acet 10/325 mg [[place] 10-325 mg] 1 each PO Q6H PRN #30 tablet [Rx] MetroNIDAZOLE [Flagyl] 500 mg PO TID #30 tablet 06/01/16 [Rx] Albuterol Neb [Proventil Neb] 2.5 mg IH QID PRN 06/07/16 [History] Albuterol Sulfate [Albuterol Inhaler] 2 puff IH Q4H PRN 06/07/16 [History] HydrOXYzine Pamoate [Vistaril] 1 cap PO PRN PRN 06/07/16 [History] LevETIRAcetam [Keppra] 750 mg PO BID 06/07/16 [History] Potassium Chloride [K-Tab ER] 10 meq PO DAILY #30 tablet.er 06/09/16 [Rx] Allergies/Adverse Reactions: Allergies Iodinated Contrast Media - Oral and Allergy (Verified 06/07/16 06:25) Difficulty Breathing ketorolac [From Toradol] Allergy (Verified 06/07/16 06:25) Nausea Penicillins Allergy (Verified 06/07/16 06:25) Rash butorphanol [From Stadol] Adverse Reaction (Verified 06/08/16 17:28) Nausea celecoxib Adverse Reaction (Verified 06/07/16 06:25) unknown listed on [place] med rec gabapentin Adverse Reaction (Verified 06/07/16 09:34) unknown [place] list. 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 Ramirez is a 66 year old male with history of essential hypertension who was recently discharged from the hospital after being treated for colitis presented to the ER complaining of abdominal pain. he underwent a CT scan of his abdomen and pelvis which did not show any acute findings besides colitis. He also presented with complaints of urinary retention.he was recommended a Mendez catheter. However, he declined this. He received intravenous antibiotics for colitis. He also received oral narcotic medications for pain. His pain improved with these measures. At this time, he is tolerating oral diet well. He is stable to be discharged ho and will follow up with his primary care provider for further management of his chronic medical conditions. He will also be referred to urology for his complaints of urinary retention. Patient does have a history of BPH and takes Flomax which he will continue to use. - Time Spent with Patient Total time spent providing and/or coordinating discharge services: Less than 30 minutes (25 min) - Constitutional Vitals: Temp Pulse Resp BP Pulse Ox 98.2 F 74 16 94/55 99 06/09/16 10:46 06/09/16 10:46 06/09/16 10:46 06/09/16 10:46 06/09/16 10:46 General appearance: Present: cooperative, A&O X 3, no acute distress, answers questions appropriately - Respiratory Respiratory exam: Present: CTAB. Absent: accessory muscle use, rales, rhonchi, wheezes - Cardiovascular Cardiovascular exam: Present: RRR, +S1, +S2. Absent: diastolic murmur, gallop, rubs, systolic murmur - GI/Abdominal GI/Abdominal exam: Present: normal bowel sounds, soft, tenderness (mild right lower quadrant and flank), no peritoneal signs. Absent: distended - Psychiatric Psychiatric exam: Present: normal affect, normal mood - VTE Documentation of Mechanical Device: Intermittent pneumatic compression device - Attending Attestation This document has been at least partially created by [employer] recognition technology by Dr. Ames. Errors in grammar, wording or other phrases may exist. If errors are found after the documentation is signed, they will be addressed individually in the addendum section of this document when appropriate.
== END 2016-06-09 13:22 | disposition home or self-care (01) | DRG 392 ==
LOC: EMEROO 05:25 → SUATTDRO 09:22 → 3ANU 09:22
PROVIDERS: ADMIT Internal Medicine; ATTEND Internal Medicine

== ENCOUNTER 2016-07-11 17:24 | Observation (INO) ==
[2016-07-11] MEDS ORDERED: *HR* HYDROcodone/Acet 5/325 mg TABLET PO ONE (18:06)
[2016-07-11 18:32] LABS: VBG HCO3 26.6 mEq/L (21-27); VBG PH 7.37 pH Units (7.32-7.42)
[2016-07-11 18:33] LABS: Hemoglobin 8.5 g/dL (12.9-16.9); Mean Platelet Volume 10.9 fL (9.4-12.4); Red Cell Distribution Width 15.5 % (11.5-14.5)
[2016-07-11 18:35] LABS: Basophils % 0.3 %; Eosinophils # 0.1 K/mcL (0.0-0.6); Eosinophils % 2.2 %; Hematocrit 26.7 % (37.5-50.1); Immature Granulocytes % 0.3 % (0-4); Immature Platelets 5.9 % (1.1-6.1); Lymphocytes % 31.4 %; Mean Corpuscular HGB Conc 31.8 g/dL (31.6-35.5); Mean Corpuscular Hemoglobin 26.3 pg (28.0-33.3); Mean Corpuscular Volume 82.7 fL (83.0-100.0); Monocytes # 0.2 K/mcL (0.0-1.3); Neutrophils # 1.9 K/mcL (1.6-8.9); Red Blood Count 3.23 M/mcL (4.19-5.50); Segmented Neutrophils % 59.8 %
[2016-07-11 18:40] LABS: Beta-Hydroxybutyric Acid 0.17 mmol/L (0.02-0.27)
[2016-07-11 18:47] LABS: Alanine Aminotransferase 28 Units/L (0-55); Albumin 3.2 g/dL (3.5-5.0); Albumin/Globulin Ratio 0.6 (1.1-2.2); Alkaline Phosphatase 124 Units/L (38-126); Aspartate Amino Transferase 37 Units/L (5-34); BUN/Creatinine Ratio 28 (6-26); Bilirubin,Total 0.5 mg/dL (0.2-1.2); Blood Urea Nitrogen 34 mg/dL (8-26); Calcium 9.5 mg/dL (8.6-10.8); Carbon Dioxide 22 mEq/L (19-29); Chloride 100 mEq/L (98-109); Globulin 5.2 g/dL (2.4-3.5); Glucose 460 mg/dL (70-99); Osmolality,Calculated 298 (280-300); Potassium 4.9 mEq/L (3.5-4.5); Sodium 130 mEq/L (136-145); Total Protein 8.4 g/dL (6.0-8.3); eGFR For African Americans > 60 (> 60); eGFR For Non-African Americans 59 (> 60)
[2016-07-11 18:51] LABS: Platelet Count 77 K/mcL (140-400)
[2016-07-11 18:53] LABS: Large Platelets Present (Not Present); Platelet Estimate Decreased (Normal); Toxic Granulation Present (Not Present)
[2016-07-11 18:54] LABS: Hypochromasia Present (Not Present); Microcytosis Present (Not Present)
[2016-07-11] MEDS: 0.9 % Sodium Chloride 1,000 ML IVC SCH ×3 (18:55→21:30)
[2016-07-11] MEDS ORDERED: *HR* LORazepam 2 MG/ML VIAL IVP ONE (20:30)
[2016-07-11] MEDS ORDERED: Insulin DETEMIR 100 UNIT/ML X5UNITS SQ ONE (20:51)
[2016-07-11] MEDS ORDERED: 0.9 % Sodium Chloride 1,000 ML IVC SCH (21:00)
--- NOTE | 2016-07-11 21:49 | Emergency Department Note ---
Disposition Clinical Impression: Pancytopenia, Hyperglycemia Disposition: Admitted As Inpatient General Adult HPI - General Chief complaint: ED Dizziness Stated complaint: "high BG" Time Seen by Provider: 07/11/16 17:27 Source: patient, EMS Limitations: no limitations Nursing Notes Reviewed: Yes Vital Signs Reviewed: Yes - History of Present Illness HPI Narrative: 66-year-old male who presents with concern for hyperglycemia. He has a history of pancytopenia, hyperglycemia for approximately one week. He is taking his Lantus at home which is confirmed at 102 units. He admits to not being able to control his blood glucose at home and having more symptoms related to hyperglycemia. He denies fever, chills, cough, chest pain. No recent hospitalizations or illness. Pain Scale: 5 - Related Data Home Medications Medication Instructions Recorded Confirmed Cholecalciferol (Vitamin D3) 1,000 unit PO DAILY 05/13/15 06/07/16 [Vitamin D] Insulin ASPART [NovoLOG] 48 - 94 unit SQ TIDWM 05/13/15 06/07/16 Ropinirole HCl [Requip] 2 mg PO HS 05/13/15 06/07/16 Venlafaxine HCl [Effexor Xr] 75 mg PO DAILY 05/13/15 06/07/16 Aspirin Enteric Coated [Aspirin EC] 81 mg PO DAILY 11/13/15 06/07/16 Atorvastatin [Lipitor] 40 mg PO HS 11/13/15 06/07/16 Insulin Glargine,Hum.rec.anlog 160 unit SQ BID 11/13/15 06/07/16 [Lantus Solostar] Lactulose 30 gm PO BID 11/13/15 06/07/16 Melatonin/Pyridoxine HCl (B6) 6 mg PO HS 11/13/15 06/07/16 [Melatonin 3 mg Tablet] Omeprazole [PriLOSEC] 20 mg PO DAILY 11/13/15 06/07/16 Tamsulosin [Flomax] 0.4 mg PO DAILY 11/13/15 06/07/16 Tiotropium [Spiriva] 2 puff IH DAILY 11/13/15 06/07/16 Cyclobenzaprine [Flexeril] 5 mg PO Q8H PRN 05/16/16 06/07/16 Furosemide [Lasix] 40 mg PO DAILY 05/16/16 06/07/16 Lisinopril [Zestril] 2.5 mg PO DAILY 05/16/16 06/07/16 Metformin HCl [Metformin HCl ER] 1,000 mg PO BID 05/16/16 06/07/16 RisperiDONE [Risperdal] 3 mg PO HS 05/16/16 06/07/16 Rivaroxaban [Xarelto] 10 mg PO DAILY 05/16/16 06/07/16 Sertraline [Zoloft] 50 mg PO DAILY 05/16/16 06/07/16 Spironolactone [Aldactone] 50 mg PO DAILY 05/16/16 06/07/16 Atenolol [Tenormin] 50 mg PO DAILY 05/29/16 06/07/16 Oxycodone HCl 10 mg PO Q6H PRN 05/29/16 06/07/16 Albuterol Neb [Proventil Neb] 2.5 mg IH QID PRN 06/07/16 06/07/16 Albuterol Sulfate [Albuterol 2 puff IH Q4H PRN 06/07/16 06/07/16 Inhaler] HydrOXYzine Pamoate [Vistaril] 1 cap PO PRN PRN 06/07/16 06/07/16 LevETIRAcetam [Keppra] 750 mg PO BID 06/07/16 06/07/16 Previous Rx's Medication Instructions Recorded Ciprofloxacin [Cipro] 500 mg PO BID #20 tablet 06/01/16 HYDROcodone/Acet 10/325 mg [[place] 1 each PO Q6H PRN #30 tablet 06/01/16 10-325 mg] MetroNIDAZOLE [Flagyl] 500 mg PO TID #30 tablet 06/01/16 Potassium Chloride [K-Tab ER] 10 meq PO DAILY #30 tablet.er 06/09/16 Allergies Allergy/AdvReac Type Severity Reaction Status Date / Time Iodinated Contrast Media - Allergy Difficulty Verified 06/07/16 06:25 Oral and Breathing ketorolac [From Toradol] Allergy Nausea Verified 06/07/16 06:25 Penicillins Allergy Rash Verified 06/07/16 06:25 butorphanol [From Stadol] AdvReac Nausea Verified 06/08/16 17:28 celecoxib AdvReac unknown Verified 06/07/16 06:25 gabapentin AdvReac unknown Verified 06/07/16 09:34 mirtazapine AdvReac unknown Verified 06/07/16 06:25 tramadol AdvReac unknown Verified 06/07/16 06:25 vancomycin AdvReac unknown Verified 06/07/16 06:25 All systems ED: reviewed and negative except as stated. Past Medical History - Past Medical History Medical history: Reports: cirrhosis, CHF, COPD, coronary artery disease, diabetes, hyperlipidemia, hypertension, TIA Surgical history: Reports: appendectomy, cholecystectomy, herniorrhaphy, knee replacement, other Psychiatric history: Reports: anxiety, depression, PTSD - Social History Smoking Status: Never smoker Smokeless Tobacco Status: No Alcohol use: Reports: none Drug use: Reports: none Physical Exam Marty warm and dry no acute distress Pupils are equal and reactive to light, extra occular muscle movements are normal, TMs are clear bilaterally Trachea is midline Lungs are clear and equal bilaterally without rales, rhonchi, wheezing Cardiovascular exam shows no murmur, regular rate and rhythm Abdomen is soft and nontender, no peritonitis, guarding Extremities are well-perfused Neurovascular exam shows cranial nerves II through XII grossly intact no focal neurological deficit - General Limitations: no limitations General appearance: alert Course Vital Signs Temperature 97.6 F 07/11/16 17:36 Pulse Rate 109 07/11/16 17:36 Respiratory Rate 24 07/11/16 17:36 Blood Pressure 149/89 07/11/16 17:36 O2 Sat by Pulse Oximetry 94 L 07/11/16 17:36 Temperature 97.6 F 07/11/16 17:36 Pulse Rate 97 07/11/16 20:07 Respiratory Rate 18 07/11/16 21:38 Blood Pressure 135/88 07/11/16 21:38 O2 Sat by Pulse Oximetry 96 07/11/16 20:07 Oxygen Delivery Oxygen Delivery Room Air Medical Decision Making - MDM Narrative Medical decision making narrative: Hyperglycemia, improvement with normal saline. We will administer home dose of Lantus as requested by hospitalist team. We will administer at half the prescribed dose. Continue IV hydration, cardiac biomarkers are negative. Chest x-ray shows no evidence of infectious causes. He does have ongoing pancytopenia which appears to be baseline. Plan to admit, currently in stable condition. EKG shows sinus tachycardia, low voltage, right ventricular conduction delay, normal axis, normal intervals, nonspecific ST segment changes - Lab Data Lab results reviewed: Yes I reviewed the patient's lab results. Result diagrams: 07/11/16 18:22 07/11/16 18:22 Lab Results 07/11/16 07/11/16 07/11/16 Range/Units 17:35 18:22 18:22 WBC 3.2 L (4.3-11.1) K/mcL RBC 3.23 L (4.19-5.50) M/mcL Hgb 8.5 L (12.9-16.9) g/dL Hct 26.7 L (37.5-50.1) % MCV 82.7 L (83.0-100.0) fL MCH 26.3 L (28.0-33.3) pg MCHC 31.8 (31.6-35.5) g/dL RDW 15.5 H (11.5-14.5) % Plt Count 77 L (140-400) K/mcL MPV 10.9 (9.4-12.4) fL Immature Gran % 0.3 (0-4) % Seg Neutrophils % 59.8 % Lymphocytes % 31.4 % Monocytes % 6.0 % Eosinophils % 2.2 % Basophils % 0.3 % Neutrophils # 1.9 (1.6-8.9) K/mcL Lymphocytes # 1.0 (0.6-4.6) K/mcL Monocytes # 0.2 (0.0-1.3) K/mcL Eosinophils # 0.1 (0.0-0.6) K/mcL Basophils # 0.0 (0.0-0.2) K/mcL Toxic Granulation Present A (Not Present) Platelet Estimate Decreased L (Normal) Large Platelets Present A (Not Present) Immature Plt Fraction 5.9 (1.1-6.1) % Hypochromasia Present A (Not Present) Microcytosis Present A (Not Present) VBG pH (7.32-7.42) pH Units VBG pCO2 (41-51) mmHg VBG pO2 (25-40) mmHg VBG HCO3 (21-27) mEq/L Sodium 130 L (136-145) mEq/L Potassium 4.9 H (3.5-4.5) mEq/L Chloride 100 (98-109) mEq/L Carbon Dioxide 22 (19-29) mEq/L BUN 34 H (8-26) mg/dL Creatinine 1.23 (0.72-1.25) mg/dL Est GFR ( Amer) > 60 (> 60) Est GFR (Non-Af Amer) 59 L (> 60) BUN/Creatinine Ratio 28 H (6-26) Glucose 460 H (70-99) mg/dL POC Glucose 505 H* (58-89) Calculated Osmolality 298 (280-300) Calcium 9.5 (8.6-10.8) mg/dL Total Bilirubin 0.5 (0.2-1.2) mg/dL AST 37 H (5-34) Units/L ALT 28 (0-55) Units/L Alkaline Phosphatase 124 (38-126) Units/L Troponin I (0-0.03) ng/mL Serum Total Protein 8.4 H (6.0-8.3) g/dL Albumin 3.2 L (3.5-5.0) g/dL Globulin 5.2 H (2.4-3.5) g/dL Albumin/Globulin Ratio 0.6 L (1.1-2.2) Beta-Hydroxybutyric Acd 0.17 (0.02-0.27) mmol/L 07/11/16 07/11/16 Range/Units 18:22 18:22 WBC (4.3-11.1) K/mcL RBC (4.19-5.50) M/mcL Hgb (12.9-16.9) g/dL Hct (37.5-50.1) % MCV (83.0-100.0) fL MCH (28.0-33.3) pg MCHC (31.6-35.5) g/dL RDW (11.5-14.5) % Plt Count (140-400) K/mcL MPV (9.4-12.4) fL Immature Gran % (0-4) % Seg Neutrophils % % Lymphocytes % % Monocytes % % Eosinophils % % Basophils % % Neutrophils # (1.6-8.9) K/mcL Lymphocytes # (0.6-4.6) K/mcL Monocytes # (0.0-1.3) K/mcL Eosinophils # (0.0-0.6) K/mcL Basophils # (0.0-0.2) K/mcL Toxic Granulation (Not Present) Platelet Estimate (Normal) Large Platelets (Not Present) Immature Plt Fraction (1.1-6.1) % Hypochromasia (Not Present) Microcytosis (Not Present) VBG pH 7.37 (7.32-7.42) pH Units VBG pCO2 46 (41-51) mmHg VBG pO2 59 H (25-40) mmHg VBG HCO3 26.6 (21-27) mEq/L Sodium (136-145) mEq/L Potassium (3.5-4.5) mEq/L Chloride (98-109) mEq/L Carbon Dioxide (19-29) mEq/L BUN (8-26) mg/dL Creatinine (0.72-1.25) mg/dL Est GFR ( Amer) (> 60) Est GFR (Non-Af Amer) (> 60) BUN/Creatinine Ratio (6-26) Glucose (70-99) mg/dL POC Glucose (58-89) Calculated Osmolality (280-300) Calcium (8.6-10.8) mg/dL Total Bilirubin (0.2-1.2) mg/dL AST (5-34) Units/L ALT (0-55) Units/L Alkaline Phosphatase (38-126) Units/L Troponin I 0.00 (0-0.03) ng/mL Serum Total Protein (6.0-8.3) g/dL Albumin (3.5-5.0) g/dL Globulin (2.4-3.5) g/dL Albumin/Globulin Ratio (1.1-2.2) Beta-Hydroxybutyric Acd (0.02-0.27) mmol/L - Radiology Data Radiology results reviewed: Yes I reviewed the patient's radiology results.
[2016-07-11] MEDS ORDERED: *HR* Morphine 2 MG/ML SYRINGE IVP PRN (22:29)
[2016-07-11] MEDS ORDERED: *HR* Dextrose 50 % in Water (Syg) 50 ML SYRINGE IVP PRN (22:29)
[2016-07-11] MEDS ORDERED: Ondansetron 4 MG/2 ML VIAL IVP PRN (22:29)
[2016-07-11] MEDS ORDERED: Dextrose Gel 15 GM PO PRN ×2 (22:29)
[2016-07-11] MEDS ORDERED: Naloxone 0.4 MG/ML INJ IVP PRN (22:29)
[2016-07-11] MEDS ORDERED: D5% in Water 1,000 ML IV PRN (22:29)
[2016-07-11] MEDS ORDERED: *HR* OxyCODONE Immed Rel 5 MG TABLET PO PRN (22:37)
--- NOTE | 2016-07-11 22:49 | Internal Med History&Physical ---
Date of Encounter: 07/11/16 Time of Encounter: 21:55 Assessment and Plan (1) Poorly controlled diabetes mellitus Current visit: Yes Status: Acute 1. Home med list needs verified. Pt unaware of much/most of his medications/ doses. 2. Will continue Levemir at 50 U SQ BID along with SSI. 3. Monitor glucose and adjust insulin as necessary. 4. Pt needs diabetic education and diet modification. (2) Pancytopenia Current visit: Yes Status: Chronic 1. Monitor counts. 2. Chronic and likely due to his history of Cirrhosis. 3. Outpatient follow up with Hematology. 4. Recommend holding and confirming Xarelto until verification of meds and reason for Xarelto. Patient unable to confirm. (3) Dehydration Current visit: Yes Status: Acute 1. Hold diuretics. 2. Continue IVF hydration. 3. Monitor I/O. 4. Oral hydration ad deacon. (4) DVT prophylaxis Current visit: Yes Status: Acute 1. Heparin SQ. 2. Monitor for any bleeding given his thrombocytopenia (platelet count of 77). Internal Medicine - H&P: HPI Chief complaint: high glucose Admitted From: Emergency Dept Plans for Post Hospital Care: Home History of present illness: Mr. Ramirez is a 66 year old male who presents the ER tonight by maddie for complaints of high glucose. He lives in a [facility] and noticed that his glucoses have been running high the last few days. He has been unable to control his glucose. He therefore called the squad and was brought to the ER. In the ER, he was evaluated and noted to have evidence of hyperglycemia without DKA. He was fluid resuscitated and given a dose of insulin with improvement in his glucose. Because of his poor glucose control and dehydration, he was admitted to the hospitalist service. Upon my assessment of the patient, patient appears dry and complains of polyuria and polydipsia. He also complains of blurred vision with his poor glucose control. Otherwise, he has no complaints. He denies any chest pain, cough, congestion, short of breath, fevers, vomiting, or diarrhea. Regarding his diabetes, he appears to be in need of some further diabetic education. He does not eat a diabetic diet and pretty much eats what is in front of him. He states he lives in a usp and they eat meals together and there is no specific diet restrictions placed upon him. [facility]. He does not recall when his last A1c was drawn and does not know if he's had any changes to his medical regimen. Past Med Surg Social Fam HX - Past Medical History Attestation: Yes The following information was validated with the patient. 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) Drug use: none Recent Out of Country Travel Within the Last 8 Weeks: No - Family History Mother Living Status: Hx Family Cancer: Yes Internal Medicine - H&P: Meds Cholecalciferol (Vitamin D3) [Vitamin D] 1,000 unit PO DAILY 05/13/15 [History] Insulin ASPART [NovoLOG] 48 - 94 unit SQ TIDWM 05/13/15 [History] Ropinirole HCl [Requip] 2 mg PO HS 05/13/15 [History] Venlafaxine HCl [Effexor Xr] 75 mg PO DAILY 05/13/15 [History] Aspirin Enteric Coated [Aspirin EC] 81 mg PO DAILY 11/13/15 [History] Atorvastatin [Lipitor] 40 mg PO HS 11/13/15 [History] Insulin Glargine,Hum.rec.anlog [Lantus Solostar] 160 unit SQ BID 11/13/15 [ History] Lactulose 30 gm PO BID 11/13/15 [History] Melatonin/Pyridoxine HCl (B6) [Melatonin 3 mg Tablet] 6 mg PO HS 11/13/15 [ History] Omeprazole [PriLOSEC] 20 mg PO DAILY 11/13/15 [History] Tamsulosin [Flomax] 0.4 mg PO DAILY 11/13/15 [History] Tiotropium [Spiriva] 2 puff IH DAILY 11/13/15 [History] Cyclobenzaprine [Flexeril] 5 mg PO Q8H PRN 05/16/16 [History] Furosemide [Lasix] 40 mg PO DAILY 05/16/16 [History] Lisinopril [Zestril] 2.5 mg PO DAILY 05/16/16 [History] Metformin HCl [Metformin HCl ER] 1,000 mg PO BID 05/16/16 [History] RisperiDONE [Risperdal] 3 mg PO HS 05/16/16 [History] Rivaroxaban [Xarelto] 10 mg PO DAILY 05/16/16 [History] Sertraline [Zoloft] 50 mg PO DAILY 05/16/16 [History] Spironolactone [Aldactone] 50 mg PO DAILY 05/16/16 [History] Atenolol [Tenormin] 50 mg PO DAILY 05/29/16 [History] Oxycodone HCl 10 mg PO Q6H PRN 05/29/16 [History] Ciprofloxacin [Cipro] 500 mg PO BID #20 tablet 06/01/16 [Rx] HYDROcodone/Acet 10/325 mg [[place] 10-325 mg] 1 each PO Q6H PRN #30 tablet [Rx] MetroNIDAZOLE [Flagyl] 500 mg PO TID #30 tablet 06/01/16 [Rx] Albuterol Neb [Proventil Neb] 2.5 mg IH QID PRN 06/07/16 [History] Albuterol Sulfate [Albuterol Inhaler] 2 puff IH Q4H PRN 06/07/16 [History] HydrOXYzine Pamoate [Vistaril] 1 cap PO PRN PRN 06/07/16 [History] LevETIRAcetam [Keppra] 750 mg PO BID 06/07/16 [History] Potassium Chloride [K-Tab ER] 10 meq PO DAILY #30 tablet.er 06/09/16 [Rx] Allergies Iodinated Contrast Media - Oral and Allergy (Verified 06/07/16 06:25) Difficulty Breathing ketorolac [From Toradol] Allergy (Verified 06/07/16 06:25) Nausea Penicillins Allergy (Verified 06/07/16 06:25) Rash butorphanol [From Stadol] Adverse Reaction (Verified 06/08/16 17:28) Nausea celecoxib Adverse Reaction (Verified 06/07/16 06:25) [facility] gabapentin Adverse Reaction (Verified 06/07/16 09:34) unknown [facility] list. mirtazapine Adverse Reaction (Verified 06/07/16 06:25) unknown listed [facility] tramadol Adverse Reaction (Verified 06/07/16 06:25) unknown listed [facility] vancomycin Adverse Reaction (Verified 06/07/16 06:25) unknown listed on [facility] - Constitutional Constitutional: no chills, no fever(s) - EENT Eyes: blurry vision, no diplopia Ears: no ear pain, no tinnitus Nose, mouth and throat: no nasal congestion, no sinus pressure, no sore throat - Cardiovascular Cardiovascular ROS IM: no chest pain, no diaphoresis, no dyspnea, no dyspnea on exertion - Respiratory Respiratory: no cough, no hemoptysis - Gastrointestinal Gastrointestinal: no abdominal pain, no diarrhea, no hematemesis, no hematochezia, no melena, no nausea, no vomiting - Genitourinary Genitourinary ROS male: no dysuria, no flank pain, no hematuria - Musculoskeletal Musculoskeletal ROS IM: arthralgias, back pain - Integumentary Integumentary IM: no rash, no jaundice - Neurological Neurological ROS: no dizziness, no focal weakness, no frequent falls, no headache(s) - Psychiatric Psychiatric: anxiety, no depression - Endocrine Endocrine IM: polydipsia, polyphagia, polyuria, no cold intolerance, no heat intolerance - Hematologic/Lymphatic Hematologic/Lymphatic: easy bruising, no lymphadenopathy - Allergic/Immunologic Allergic/Immunologic: no wheezing, no GI upset with certain foods - Constitutional Vitals: Temp Pulse Resp BP Pulse Ox 97.6 F 88 18 166/66 94 L 07/11/16 22:06 07/11/16 22:06 07/11/16 22:06 07/11/16 22:06 07/11/16 22:06 General appearance: Present: cooperative, disheveled, A&O X 3, no acute distress , obese, answers questions appropriately Exam: looks dry - Head Head exam: Present: atraumatic, normal inspection - Expanded Head Exam Head exam expanded: Absent: abrasion, general tenderness - Eye Eye exam: Present: EOMI, normal appearance, PERRL. Absent: scleral icterus Pupils: Present: normal accommodation - ENT ENT exam: Present: mucous membranes dry, normal exam, normal oropharynx - Neck Neck exam general surgery: Present: full ROM, supple. Absent: normal inspection , thyromegaly - Respiratory Respiratory exam: Present: CTAB. Absent: chest wall tenderness, rales, respiratory distress, rhonchi, wheezes - Cardiovascular Cardiovascular exam: Present: RRR, +S1, +S2. Absent: diastolic murmur, systolic murmur - GI/Abdominal GI/Abdominal exam: Present: normal bowel sounds, soft. Absent: hepatomegaly, mass, splenomegaly, tenderness - Extremities Exam Extremities exam: Present: warm. Absent: calf tenderness, full ROM (limited in both knees -- had bilateral knee replacements), joint swelling, pedal edema - Back Exam Back exam: Present: normal inspection. Absent: CVA tenderness (L), CVA tenderness (R) - Neurological Exam Neurological exam: Present: alert, CN II-XII intact, oriented X3, no focal deficits - Psychiatric Psychiatric exam: Present: anxious - Skin Skin exam: Present: dry, warm. Absent: rash Internal Med - H&P Results - Labs CBC & Chem 7: 07/11/16 18:22 07/11/16 18:22 - Diagnostic Studies Chest x-ray Status: image reviewed by me (negative)
[2016-07-11] MEDS: Albuterol 2.5 MG/3 ML NEBULIZER IH SCH (23:04)
[2016-07-12] MEDS: 0.9 % Sodium Chloride 1,000 ML IVC SCH ×2 (00:59→08:48)
[2016-07-12 03:40] LABS: Basophils % 0.6 %; Eosinophils # 0.2 K/mcL (0.0-0.6); Eosinophils % 4.9 %; Hematocrit 24.4 % (37.5-50.1); Hemoglobin 7.7 g/dL (12.9-16.9); Immature Platelets 5.3 % (1.1-6.1); Lymphocytes # 1.3 K/mcL (0.6-4.6); Lymphocytes % 38.7 %; Mean Corpuscular HGB Conc 31.6 g/dL (31.6-35.5); Mean Corpuscular Volume 82.4 fL (83.0-100.0); Mean Platelet Volume 10.9 fL (9.4-12.4); Monocytes # 0.4 K/mcL (0.0-1.3); Monocytes % 11.3 %; Neutrophils # 1.5 K/mcL (1.6-8.9); Red Blood Count 2.96 M/mcL (4.19-5.50); Red Cell Distribution Width 15.7 % (11.5-14.5); Segmented Neutrophils % 44.5 %
[2016-07-12 03:42] LABS: Platelet Count 73 K/mcL (140-400)
[2016-07-12 03:44] LABS: INR 1.2; Prothrombin Time 13.3 Seconds (9.4-12.1)
[2016-07-12 03:46] LABS: Activated Partial Thrombo Time 32.3 Seconds (26.0-36.0)
[2016-07-12 03:53] LABS: Alanine Aminotransferase 25 Units/L (0-55); Albumin 2.9 g/dL (3.5-5.0); Albumin/Globulin Ratio 0.6 (1.1-2.2); Alkaline Phosphatase 111 Units/L (38-126); Aspartate Amino Transferase 30 Units/L (5-34); BUN/Creatinine Ratio 28 (6-26); Bilirubin,Total 0.5 mg/dL (0.2-1.2); Blood Urea Nitrogen 23 mg/dL (8-26); Calcium 8.9 mg/dL (8.6-10.8); Carbon Dioxide 23 mEq/L (19-29); Chloride 106 mEq/L (98-109); Globulin 4.5 g/dL (2.4-3.5); Glucose 134 mg/dL (70-99); Magnesium 1.5 mg/dL (1.6-2.6); Osmolality,Calculated 284 (280-300); Potassium 4.1 mEq/L (3.5-4.5); Sodium 134 mEq/L (136-145); Total Protein 7.4 g/dL (6.0-8.3); eGFR For African Americans > 60 (> 60); eGFR For Non-African Americans > 60 (> 60)
[2016-07-12] MEDS: Albuterol 2.5 MG/3 ML NEBULIZER IH SCH (04:09)
[2016-07-12] MEDS ORDERED: *HR* Heparin 5,000 UNIT/ML VIAL SQ SCH (07:00)
[2016-07-12 07:02] VITALS: BP 148/78
[2016-07-12] MEDS ORDERED: Insulin LISPRO 300 UNITS/3 ML VIAL SQ SCH ×2 (07:30→08:00)
[2016-07-12] MEDS ORDERED: Insulin DETEMIR 100 UNIT/ML X5UNITS SQ SCH (09:00)
[2016-07-12] MEDS ORDERED: levETIRAcetam 250 MG TABLET PO SCH (09:06)
[2016-07-12] MEDS ORDERED: Venlafaxine XR (24 HR) 75 MG CAP.ER.24H PO SCH (09:15)
[2016-07-12] MEDS ORDERED: *HR* LORazepam 1 MG TABLET PO ONE (09:38)
[2016-07-12 10:38] LABS: Hematocrit 27.7 % (37.5-50.1); Hemoglobin 8.6 g/dL (12.9-16.9)
--- NOTE | 2016-07-12 11:16 | Discharge Summary ---
Date of Encounter: 07/12/16 Time of Encounter: 11:14 - Discharge Diagnosis (1) Poorly controlled diabetes mellitus Priority: Primary Status: Acute (2) Pancytopenia Priority: Secondary Status: Acute (3) Dehydration Priority: Secondary Status: Acute (4) DVT prophylaxis Priority: Secondary Status: Acute - Discharge Medications Home Medications: Cholecalciferol (Vitamin D3) [Vitamin D] 1,000 unit PO DAILY 05/13/15 [History] Insulin ASPART [NovoLOG] 48 - 94 unit SQ TIDWM 05/13/15 [History] Ropinirole HCl [Requip] 2 mg PO HS 05/13/15 [History] Venlafaxine HCl [Effexor Xr] 75 mg PO DAILY 05/13/15 [History] Aspirin Enteric Coated [Aspirin EC] 81 mg PO DAILY 11/13/15 [History] Atorvastatin [Lipitor] 40 mg PO HS 11/13/15 [History] Insulin Glargine,Hum.rec.anlog [Lantus Solostar] 160 unit SQ BID 11/13/15 [ History] Lactulose 30 gm PO BID 11/13/15 [History] Melatonin/Pyridoxine HCl (B6) [Melatonin 3 mg Tablet] 6 mg PO HS 11/13/15 [ History] Omeprazole [PriLOSEC] 20 mg PO DAILY 11/13/15 [History] Tamsulosin [Flomax] 0.4 mg PO DAILY 11/13/15 [History] Tiotropium [Spiriva] 2 puff IH DAILY 11/13/15 [History] Cyclobenzaprine [Flexeril] 5 mg PO Q8H PRN 05/16/16 [History] Furosemide [Lasix] 40 mg PO DAILY 05/16/16 [History] Lisinopril [Zestril] 2.5 mg PO DAILY 05/16/16 [History] Metformin HCl [Metformin HCl ER] 1,000 mg PO BID 05/16/16 [History] RisperiDONE [Risperdal] 3 mg PO HS 05/16/16 [History] Rivaroxaban [Xarelto] 10 mg PO DAILY 05/16/16 [History] Sertraline [Zoloft] 50 mg PO DAILY 05/16/16 [History] Spironolactone [Aldactone] 50 mg PO DAILY 05/16/16 [History] Atenolol [Tenormin] 50 mg PO DAILY 05/29/16 [History] Oxycodone HCl 10 mg PO Q6H PRN 05/29/16 [History] Ciprofloxacin [Cipro] 500 mg PO BID #20 tablet 06/01/16 [Rx] HYDROcodone/Acet 10/325 mg [[place] 10-325 mg] 1 each PO Q6H PRN #30 tablet [Rx] MetroNIDAZOLE [Flagyl] 500 mg PO TID #30 tablet 06/01/16 [Rx] Albuterol Neb [Proventil Neb] 2.5 mg IH QID PRN 06/07/16 [History] Albuterol Sulfate [Albuterol Inhaler] 2 puff IH Q4H PRN 06/07/16 [History] HydrOXYzine Pamoate [Vistaril] 1 cap PO PRN PRN 06/07/16 [History] LevETIRAcetam [Keppra] 750 mg PO BID 06/07/16 [History] Potassium Chloride [K-Tab ER] 10 meq PO DAILY #30 tablet.er 06/09/16 [Rx] Allergies/Adverse Reactions: Allergies Iodinated Contrast Media - Oral and Allergy (Verified 06/07/16 06:25) Difficulty Breathing ketorolac [From Toradol] Allergy (Verified 06/07/16 06:25) Nausea Penicillins Allergy (Verified 06/07/16 06:25) Rash butorphanol [From Stadol] Adverse Reaction (Verified 06/08/16 17:28) Nausea celecoxib Adverse Reaction (Verified 06/07/16 06:25) unknown listed on [place] med rec gabapentin Adverse Reaction (Verified 06/07/16 09:34) unknown [facility] mirtazapine Adverse Reaction (Verified 06/07/16 06:25) unknown listed on [place] tramadol Adverse Reaction (Verified 06/07/16 06:25) unknown listed on [place] med rec vancomycin Adverse Reaction (Verified 06/07/16 06:25) unknown listed on [facility] rec Procedures/tests Complete & Pending: Procedures Performed prior 72 hours Category Date Time Status ECG 12 lead ECG [ECG] AM 0600 Y 07/12/16 06:00 Ordered Date of admission: 07/11/16 21:07 [facility] care physician: [facility] Consults: 07/11/16 22:29 Consult to Pegger Dobby Looms [CONS] Routine Comment: Discharging clinician: Adolfo Ames Anticipated date of discharge: 07/12/16 - Patient Status Disposition: Home, Self-Care Condition: Good Functional capacity at discharge: independent ambulation Overall status at discharge: patient is progressing back to baseline - Discharge Instructions Follow Up With: [facility] [Primary Care Provider] - Forms: ED Satisfaction Letter - Diet and Activity Diet: diabetic diet Hospital course: Mr. Ramirez is a 66 year old male with history of diabetes mellitus type 2, PTSD was observed in the hospital after presenting with severe hyperglycemia. She was treated with insulin with improvement in his blood sugars. He does have poorly controlled diabetes. He was recommended diabetes education but patient was anxious this morning and requesting intravenous anxiolytics. He does have a history of PTSD. He takes Zoloft, Effexor and was given these medications and oral Ativan. However the patient wished to leave the hospital against medical advise instead of waiting further. His blood sugars have improved. He does understand the risks involved with his decision. His hemoglobin level was 7.7 this morning but a recheck showed a hemoglobin of 8.6. Patient does have chronic pancytopenia related to liver disease - Time Spent with Patient Total time spent providing and/or coordinating discharge services: Less than 30 minutes (20 min) - Constitutional Vitals: Temp Pulse Resp BP Pulse Ox 98.5 F 106 18 148/78 95 07/12/16 06:59 07/12/16 06:59 07/12/16 06:59 07/12/16 06:59 07/12/16 06:59 General appearance: Present: cooperative, disheveled, A&O X 3, no acute distress , obese, answers questions appropriately - Respiratory Respiratory exam: Present: CTAB. Absent: accessory muscle use, rales, rhonchi, wheezes - Psychiatric Psychiatric exam: Present: anxious - Attending Attestation This document has been at least partially created by [employer] recognition technology by Dr. Ames. Errors in grammar, wording or other phrases may exist. If errors are found after the documentation is signed, they will be addressed individually in the addendum section of this document when appropriate.
[2016-07-12] MEDS ORDERED: rOPINIRole 1 MG TABLET PO SCH (21:00)
[2016-07-12] MEDS ORDERED: RisperiDAL 3 MG TABLET PO SCH (21:00)
--- NOTE | 2016-07-13 17:23 | Electrocardiograph Report ---
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
== END 2016-07-12 11:08 | disposition left against medical advice (07) ==
LOC: EMEROO 17:24 → INTOOBSV 21:07 → 3BNU 21:07
PROVIDERS: ADMIT Pediatrics; ATTEND Internal Medicine

== ENCOUNTER 2016-08-10 20:02 | Inpatient (IN) ==
[2016-08-10] MEDS ORDERED: Ondansetron 4 MG/2 ML VIAL IVP ONE (20:47)
[2016-08-10] MEDS ORDERED: *HR* Morphine 2 MG/ML SYRINGE IVP ONE ×2 (20:47→23:24)
[2016-08-10] MEDS ORDERED: 0.9 % Sodium Chloride 1,000 ML IVC ONE ×2 (20:47→22:44)
[2016-08-10 21:21] LABS: Basophils % 0.4 %; Eosinophils # 0.1 K/mcL (0.0-0.6); Eosinophils % 2.1 %; Hematocrit 28.4 % (37.5-50.1); Hemoglobin 9.1 g/dL (12.9-16.9); Immature Granulocytes % 0.4 % (0-4); Lymphocytes # 1.4 K/mcL (0.6-4.6); Mean Corpuscular Hemoglobin 24.9 pg (28.0-33.3); Mean Corpuscular Volume 77.6 fL (83.0-100.0); Monocytes # 0.7 K/mcL (0.0-1.3); Monocytes % 12.3 %; Neutrophils # 3.4 K/mcL (1.6-8.9); Platelet Count 100 K/mcL (140-400); Red Blood Count 3.66 M/mcL (4.19-5.50); Red Cell Distribution Width 15.9 % (11.5-14.5); Segmented Neutrophils % 59.8 %
[2016-08-10 21:27] LABS: INR 1.6; Prothrombin Time 17.2 Seconds (9.4-12.1)
[2016-08-10 21:40] LABS: Albumin 3.3 g/dL (3.5-5.0); Albumin/Globulin Ratio 0.7 (1.1-2.2); Bilirubin,Direct 0.2 mg/dL (0.0-0.5); Bilirubin,Indirect 0.2 mg/dL (0.0-1.2); Bilirubin,Total 0.4 mg/dL (0.2-1.2); Calcium 9.2 mg/dL (8.6-10.8); Potassium 5.7 mEq/L (3.5-4.5); Total Protein 8.3 g/dL (6.0-8.3)
--- NOTE | 2016-08-10 22:38 | Emergency Department Note ---
Disposition Clinical Impression: Dehydration, Abdominal pain, Chronic anemia, Cirrhosis, Hyperkalemia, Hyponatremia Disposition: Admitted As Inpatient Condition: Good [facility] - Forms: Work/School Release, ED Satisfaction Letter Time of Disposition: 22:46 Abdominal Pain HPI - General Chief Complaint: ED Abdominal Pain Stated Complaint: AMS / Abd Pain / Rectal Bleeding Time Seen by Provider: 08/10/16 20:14 Source: patient, EMS Mode of arrival: ambulatory Nursing Notes Reviewed: Yes Vital Signs Reviewed: Yes - History of Present Illness HPI Narrative: 66-year-old male presents to the emergency room for lower abdominal pain and rectal bleeding. States he woke up this morning not feeling well. He had some nausea but no vomiting. He states he has had about 4 bouts of bright red bloody stool. He also admits this lower abdominal pain as well as some subjective fevers and diaphoresis. He denies any chest pain. Denies shortness of breath. Upon arrival he was found to have a pulse ox of 90%. He denies any recent cough or sputum production. No other complaints at this time. He does have a history of diabetes as well as cirrhosis. He states he had seen a liver doctor in [place] 3 years ago. Has had no problems with this since. Pt Subjective Complaint: abdominal pain Onset (ago): hour(s) Consistency: constant Location: suprapubic Pain Severity: moderate Pain Scale: 7 Quality: aching Radiation: none Migration to: no migration Improves with: nothing Worsens with: nothing Associated symptoms: Reports: nausea, fever, chills, hematochezia Treatments prior to arrival: none - Related Data Home Medications Medication Instructions Recorded Confirmed Cholecalciferol (Vitamin D3) 1,000 unit PO DAILY 05/13/15 06/07/16 [Vitamin D] Insulin ASPART [NovoLOG] 48 - 94 unit SQ TIDWM 05/13/15 06/07/16 Ropinirole HCl [Requip] 2 mg PO HS 05/13/15 06/07/16 Venlafaxine HCl [Effexor Xr] 75 mg PO DAILY 05/13/15 06/07/16 Aspirin Enteric Coated [Aspirin EC] 81 mg PO DAILY 11/13/15 06/07/16 Atorvastatin [Lipitor] 40 mg PO HS 11/13/15 06/07/16 Insulin Glargine,Hum.rec.anlog 160 unit SQ BID 11/13/15 06/07/16 [Lantus Solostar] Lactulose 30 gm PO BID 11/13/15 06/07/16 Melatonin/Pyridoxine HCl (B6) 6 mg PO HS 11/13/15 06/07/16 [Melatonin 3 mg Tablet] Omeprazole [PriLOSEC] 20 mg PO DAILY 11/13/15 06/07/16 Tamsulosin [Flomax] 0.4 mg PO DAILY 11/13/15 06/07/16 Tiotropium [Spiriva] 2 puff IH DAILY 11/13/15 06/07/16 Cyclobenzaprine [Flexeril] 5 mg PO Q8H PRN 05/16/16 06/07/16 Furosemide [Lasix] 40 mg PO DAILY 05/16/16 06/07/16 Lisinopril [Zestril] 2.5 mg PO DAILY 05/16/16 06/07/16 Metformin HCl [Metformin HCl ER] 1,000 mg PO BID 05/16/16 06/07/16 RisperiDONE [Risperdal] 3 mg PO HS 05/16/16 06/07/16 Rivaroxaban [Xarelto] 10 mg PO DAILY 05/16/16 06/07/16 Sertraline [Zoloft] 50 mg PO DAILY 05/16/16 06/07/16 Spironolactone [Aldactone] 50 mg PO DAILY 05/16/16 06/07/16 Atenolol [Tenormin] 50 mg PO DAILY 05/29/16 06/07/16 Oxycodone HCl 10 mg PO Q6H PRN 05/29/16 06/07/16 Albuterol Neb [Proventil Neb] 2.5 mg IH QID PRN 06/07/16 06/07/16 Albuterol Sulfate [Albuterol 2 puff IH Q4H PRN 06/07/16 06/07/16 Inhaler] HydrOXYzine Pamoate [Vistaril] 1 cap PO PRN PRN 06/07/16 06/07/16 LevETIRAcetam [Keppra] 750 mg PO BID 06/07/16 06/07/16 Previous Rx's Medication Instructions Recorded Ciprofloxacin [Cipro] 500 mg PO BID #20 tablet 06/01/16 HYDROcodone/Acet 10/325 mg [[place] 1 each PO Q6H PRN #30 tablet 06/01/16 10-325 mg] MetroNIDAZOLE [Flagyl] 500 mg PO TID #30 tablet 06/01/16 Potassium Chloride [K-Tab ER] 10 meq PO DAILY #30 tablet.er 06/09/16 Ondansetron HCl [Zofran] 4 mg PO Q6HR #12 tablet 07/26/16 HYDROcodone/Acet 5/325 mg [[place] 1 tab PO Q6H PRN #12 tab 08/08/16 5-325 mg] Allergies Allergy/AdvReac Type Severity Reaction Status Date / Time Iodinated Contrast Media - Allergy Difficulty Verified 06/07/16 06:25 Oral and Breathing ketorolac [From Toradol] Allergy Nausea Verified 06/07/16 06:25 Penicillins Allergy Rash Verified 06/07/16 06:25 butorphanol [From Stadol] AdvReac Nausea Verified 06/08/16 17:28 celecoxib AdvReac unknown Verified 06/07/16 06:25 gabapentin AdvReac unknown Verified 06/07/16 09:34 mirtazapine AdvReac unknown Verified 06/07/16 06:25 tramadol AdvReac unknown Verified 06/07/16 06:25 vancomycin AdvReac unknown Verified 06/07/16 06:25 All systems ED: reviewed and negative except as stated. Constitutional: Reports: as per HPI Eyes: Reports: as per HPI ENT ED: Reports: as per HPI Cardiovascular: Reports: as per HPI Respiratory: Reports: as per HPI Gastrointestinal: Reports: abdominal pain, nausea, hematochezia Genitourinary: Reports: as per HPI Musculoskeletal: Reports: as per HPI Integumentary: Reports: as per HPI Neurological: Reports: as per HPI Psychiatric: Reports: as per HPI Endocrine: Reports: as per HPI Hematological/Lymphatic: Reports: as per HPI Abdominal Pain PMH - Past Medical History Medical history: Reports: cirrhosis, CHF, COPD, coronary artery disease, diabetes, hyperlipidemia, hypertension, TIA Male Surgical History: Reports: appendectomy, cholecystectomy, knee replacement , Tonsillectomy, other Psychiatric history: Reports: anxiety, depression, PTSD - Social History Smoking status: Never smoker Alcohol use: Reports: none Drug use: Reports: none Physical Exam - General Limitations: no limitations General appearance: alert, in distress, other (Diaphoretic ) - Chest Chest inspection: Present: normal inspection, symmetric chest wall rise - Respiratory Respiratory exam: Present: normal lung sounds bilaterally. Absent: respiratory distress - Cardiovascular Cardiovascular exam: Present: regular rate, normal rhythm - Abdominal Exam Abdominal exam: Present: soft, tenderness (Positive for suprapubic tenderness on palpation. No guarding or rebound.) Abdominal tenderness: Present: suprapubic - Rectal Exam Title Coordinator present during exam: Yes (Normal exam. No gross blood. ) Rectal exam: Present: heme (-) stool - Expanded Lower Extremity Exam Hip/Pelvis exam: Present: normal inspection. Absent: tenderness, swelling Neurovascular/Tendon exam: Present: normal capillary refill - Neurological Exam Neurological exam: Present: alert, oriented X3 - Psychiatric Psychiatric exam: Present: normal affect, normal mood - Skin Skin exam: Present: diaphoresis Course Course Narrative: Patient was given pain medication as well as antiemetics and IV fluids. He had a plethora of abnormal lab values. His CT scan of the abdomen and pelvis did not show any acute pathology other than his chronic cirrhotic findings. Still awaiting a urinalysis as the patient has been unable to urinate. Patient was found to be diaphoretic upon my exam however he was afebrile when he checked his temperature. His lactate is slightly elevated as well. I feel the patient needs to be admitted for IV fluids as well as observation. Vital Signs Temperature 98.6 F 08/10/16 20:04 Pulse Rate 101 08/10/16 20:04 Respiratory Rate 16 08/10/16 20:04 Blood Pressure 109/53 08/10/16 20:04 O2 Sat by Pulse Oximetry 96 08/10/16 20:04 Temperature 98.6 F 08/10/16 20:04 Pulse Rate 83 08/10/16 21:04 Respiratory Rate 16 08/10/16 21:04 Blood Pressure 112/64 08/10/16 21:04 O2 Sat by Pulse Oximetry 97 08/10/16 21:04 Oxygen Delivery Oxygen Delivery Nasal Cannula Abdominal Pain - MDM Narrative Medical decision making narrative: Spoke with the hospitalist. Will admit to their service. His vitals are stable this time. - Medical Records Medical records reviewed: Yes I reviewed the patient's medical records. - Lab Data Lab results reviewed: Yes I reviewed the patient's lab results. Result diagrams: 08/10/16 21:09 08/10/16 21:09 Lab Results 08/10/16 08/10/16 08/10/16 Range/Units 20:16 21:09 21:09 WBC 5.7 (4.3-11.1) K/mcL RBC 3.66 L (4.19-5.50) M/mcL Hgb 9.1 L (12.9-16.9) g/dL Hct 28.4 L (37.5-50.1) % MCV 77.6 L (83.0-100.0) fL MCH 24.9 L (28.0-33.3) pg MCHC 32.0 (31.6-35.5) g/dL RDW 15.9 H (11.5-14.5) % Plt Count 100 L (140-400) K/mcL MPV 11.0 (9.4-12.4) fL Immature Gran % 0.4 (0-4) % Seg Neutrophils % 59.8 % Lymphocytes % 25.0 % Monocytes % 12.3 % Eosinophils % 2.1 % Basophils % 0.4 % Neutrophils # 3.4 (1.6-8.9) K/mcL Lymphocytes # 1.4 (0.6-4.6) K/mcL Monocytes # 0.7 (0.0-1.3) K/mcL Eosinophils # 0.1 (0.0-0.6) K/mcL Basophils # 0.0 (0.0-0.2) K/mcL PT 17.2 H (9.4-12.1) Seconds INR 1.6 APTT 36.0 (26.0-36.0) Seconds Sodium (136-145) mEq/L Potassium (3.5-4.5) mEq/L Chloride (98-109) mEq/L Carbon Dioxide (19-29) mEq/L BUN (8-26) mg/dL Creatinine (0.72-1.25) mg/dL Est GFR ( Amer) (> 60) Est GFR (Non-Af Amer) (> 60) BUN/Creatinine Ratio (6-26) Glucose (70-99) mg/dL POC Glucose 296 H (58-89) Calculated Osmolality (280-300) Lactic Acid (0.5-2.2) mmol/L Calcium (8.6-10.8) mg/dL Total Bilirubin (0.2-1.2) mg/dL Direct Bilirubin (0.0-0.5) mg/dL Indirect Bilirubin (0.0-1.2) mg/dL AST (5-34) Units/L ALT (0-55) Units/L Alkaline Phosphatase (38-126) Units/L Serum Total Protein (6.0-8.3) g/dL Albumin (3.5-5.0) g/dL Globulin (2.4-3.5) g/dL Albumin/Globulin Ratio (1.1-2.2) Lipase (8-78) Units/L Stool Occult Blood (Negative) 08/10/16 08/10/16 08/10/16 Range/Units 21:09 21:09 21:20 WBC (4.3-11.1) K/mcL RBC (4.19-5.50) M/mcL Hgb (12.9-16.9) g/dL Hct (37.5-50.1) % MCV (83.0-100.0) fL MCH (28.0-33.3) pg MCHC (31.6-35.5) g/dL RDW (11.5-14.5) % Plt Count (140-400) K/mcL MPV (9.4-12.4) fL Immature Gran % (0-4) % Seg Neutrophils % % Lymphocytes % % Monocytes % % Eosinophils % % Basophils % % Neutrophils # (1.6-8.9) K/mcL Lymphocytes # (0.6-4.6) K/mcL Monocytes # (0.0-1.3) K/mcL Eosinophils # (0.0-0.6) K/mcL Basophils # (0.0-0.2) K/mcL PT (9.4-12.1) Seconds INR APTT (26.0-36.0) Seconds Sodium 125 L (136-145) mEq/L Potassium 5.7 H (3.5-4.5) mEq/L Chloride 92 L (98-109) mEq/L Carbon Dioxide 22 (19-29) mEq/L BUN 56 H (8-26) mg/dL Creatinine 2.29 H (0.72-1.25) mg/dL Est GFR ( Amer) 35 L (> 60) Est GFR (Non-Af Amer) 29 L (> 60) BUN/Creatinine Ratio 24 (6-26) Glucose 331 H (70-99) mg/dL POC Glucose (58-89) Calculated Osmolality 288 (280-300) Lactic Acid 3.1 H (0.5-2.2) mmol/L Calcium 9.2 (8.6-10.8) mg/dL Total Bilirubin 0.4 (0.2-1.2) mg/dL Direct Bilirubin 0.2 (0.0-0.5) mg/dL Indirect Bilirubin 0.2 (0.0-1.2) mg/dL AST 35 H (5-34) Units/L ALT 37 (0-55) Units/L Alkaline Phosphatase 140 H (38-126) Units/L Serum Total Protein 8.3 (6.0-8.3) g/dL Albumin 3.3 L (3.5-5.0) g/dL Globulin 5.0 H (2.4-3.5) g/dL Albumin/Globulin Ratio 0.7 L (1.1-2.2) Lipase 62 (8-78) Units/L Stool Occult Blood Negative (Negative) - Radiology Data Radiology results reviewed: Yes I reviewed the patient's radiology results. - EKG Data EKG attestation: Yes I reviewed and interpreted this EKG. EKG results narrative: EKG shows a rate of 98. Normal sinus rhythm. Normal axis. NC interval 179. QRS 92. Cardiac acute to 378. No signs of acute ischemia. EKG shows normal: sinus rhythm
[2016-08-10] MEDS ORDERED: Naloxone 0.4 MG/ML INJ IVP PRN (23:44)
[2016-08-10] MEDS ORDERED: *HR* OxyCODONE Immed Rel 5 MG TABLET PO PRN (23:44)
[2016-08-10] MEDS ORDERED: *HR* HYDROmorphone (PF) 1 MG/ML SYRINGE IVP PRN (23:44)
[2016-08-10] MEDS ORDERED: *HR* Promethazine 25 MG/ML VIAL IVP PRN (23:44)
[2016-08-10] MEDS ORDERED: Acetaminophen 325 MG TABLET PO PRN (23:44)
--- NOTE | 2016-08-10 23:57 | Internal Med History&Physical ---
Date of Encounter: 08/10/16 Time of Encounter: 23:00 Assessment and Plan (1) Acute abdominal pain syndrome Status: Acute . (2) Rectal bleeding Status: Acute . (3) Toxic metabolic encephalopathy Status: Acute . (4) Delirium due to conditions classified elsewhere Status: Acute . (5) Chronic liver disease and cirrhosis Status: Chronic . (6) Abdominal pain, chronic, left lower quadrant Status: Chronic . (7) Postoperative pain of right knee Status: Acute . (8) Acute and chronic respiratory failure with hypoxia Status: Acute . (9) Diastolic CHF with preserved left ventricular function, NYHA class 2 Status: Chronic . (10) Bicytopenia Status: Acute . (11) Acute kidney injury superimposed on CKD Status: Acute . (12) Hyperkalemia, diminished renal excretion Status: Acute . (13) Anxiety about health Status: Acute . (14) Anxiety associated with depression Status: Acute . (15) Obesity (BMI 30-39.9) Status: Chronic . (16) CAD (coronary artery disease), [place] coronary artery Status: Chronic . Qualifiers: [place] vs. transplanted heart: [place] heart Associated angina: angina presence unspecified Qualified Code(s): I25.10 - Atherosclerotic heart disease of [place] coronary artery without angina pectoris (17) Dyslipidemia associated with type 2 diabetes mellitus Status: Chronic . (18) Quit consuming alcohol in remote past Status: Chronic . (19) Debility, unspecified Status: Chronic . (20) Poorly controlled diabetes mellitus Status: Chronic . (21) Urinary retention Status: Chronic . (22) CAD (coronary artery disease) Status: Chronic . Qualifiers: Coronary Disease-Associated Artery/Lesion type: [place] artery [place] vs. transplanted heart: [place] heart Associated angina: without angina Qualified Code(s): I25.10 - Atherosclerotic heart disease of [place] coronary artery without angina pectoris (23) Chronic obstructive pulmonary disease Status: Chronic . Qualifiers: COPD type: chronic bronchitis Chronic bronchitis type: simple Qualified Code(s): J41.0 - Simple chronic bronchitis (24) DM2 (diabetes mellitus, type 2) Status: Chronic . Qualifiers: Diabetes mellitus complication status: with unspecified complications Diabetes mellitus fitness and wellness coordinator insulin use: with assisted use Qualified Code(s) : E11.8 - Type 2 diabetes mellitus with unspecified complications; Z79.4 - halfway (current) use of insulin (25) Depression Status: Chronic . Qualifiers: Depression Type: unspecified Qualified Code(s): F32.9 - Major depressive disorder, single episode, unspecified (26) Essential hypertension Status: Chronic . (27) Hyperlipidemia Status: Chronic . Qualifiers: Hyperlipidemia type: mixed hyperlipidemia Qualified Code(s): E78.2 - Mixed hyperlipidemia (28) Hyponatremia Status: Acute . (29) Lactic acidosis Status: Acute . (30) Hx of drug abuse Status: Chronic . Internal Medicine - H&P: HPI Chief complaint: Abdominal pain. Confusion. Blood in stool. Admitted From: Emergency Dept Plans for Post Hospital Care: Home History of present illness: Mr. Ramirez is a 66 year old male [facility] patient with h/o chronic pain syndrome, osteoarthritis, osteopenia, DM, hypertension, dyslipidemia, history of TIA, history of cirrhotic liver disease (remote history of alcoholism) with portosystemic hypertension, diastolic CHF with preserved LVEF, CAD, COPD, type II DM, depression-anxiety/PTSD/?bipolar disorder, RLS, GERD, BPH/prostatism, CKD III, obesity, nonsmoker The patient was visited and interviewed and examined. Patient was admitted with complaints of altered mental status associated with lower abdominal pain of 7/10 severity and rectal bleeding. He reports 4 episodes of bright red bloody stool. He presents a complex history which includes cirrhotic liver disease and advanced atherosclerotic cardiovascular disease. The patient is on chronic anticoagulation with Xarelto. Hemoccult stool obtained in the ED was negative. No gross evidence of blood or bleeding was seen at the time of initial triage. Initial screening studies however demonstrated microcytic hypochromic anemia worrisome for long-standing iron deficiency+/- ABL, thrombocytopenia, stage IV MJ/CKD, hyperkalemia, hyponatremia, hyperglycemia, lactic acidemia. Given extensive PMH, HPI, clinical findings, laboratory data the patient will undergo further evaluation in this position. Cumulative laboratory and radiographic data base will be considered and discussed. Pertinent ancillary medical records including ECW and PCI documentation when available was reviewed and considered. Given the patient's presenting concerns, past medical history, clinical findings and symptoms, he is admitted at this time will undergo further evaluation and disposition. Orders were written as per Computerized physician order manager system.......................................................................... .................... Consultative opinions will be sought as clinical circumstances justify. Pain management needs will be addressed. Laboratory /radiographic data base will be updated as appropriate. Studies include: Cultures of blood and urine and sputum, amylase, lipase, coags, cpk, ammonia, UA, UDS, cardiac injury panel, BNP, metabolic and hematologic panel, magnesium, phosphorus, ionized calcium, thyroid panel, lipid profile, A1c, C- peptide, CRP ,sedimentation rate, respiratory infection profile, respiratory virus panel, blood gas, lactic acid, serologies, etc. Precautions: Aspiration, fall, delirium protocol/surveillance initiated. Telemetry with continuous hemodynamic monitoring and pulse oximetry initiated. Empiric antibiotic coverage: Intravenous Rocephin and Flagyl pending culture data. Special studies: CT chest/abd/pel, chest x-ray, telemetry, EKG. Pulmonary toilet: Incentive spirometry, aerosol bronchodilator, mucolytic, antitussive, supplemental oxygen. Corticosteroid therapy. CPAP/BiPAP supplemental oxygen delivery. Aerosol Mucomyst therapy. Fluid and electrolyte repletion efforts will proceed. Careful attention to fluid balance and renal recovery will be emphasized. Avoidance of nephrotoxic exposure and adverse drug drug interaction in the setting of impaired renal function will be monitored closely. Acute coronary syndrome protocol/surveillance initiated. Chronic anticoagulation w/ Xarelto withheld confirmation or exclusion of lower GI bleed. DVT and PUD prophylaxis initiated: PPI therapy, intermittent pneumatic cuffs. Early ambulation will be encouraged. Immunization updates recommended. Influenza and pneumococcal vaccinations as part of ongoing preventative healthcare recommendations strongly recommended. Smoke cessation counseling briefly addressed. Patient is a nonsmoker. Advanced care directive discussion briefly addressed. Patient does not declare any healthcare restrictions at this time. Cardiovascular risk appraisal and cardiovascular risk reduction efforts will be emphasized. Physical /occupational therapy may be counseled to evaluate patient's function capacity and progressive mobility of her circumstances justify. Sliding scale insulin coverage, ADA dietary restraint and schedule an as-needed basis fingerstick glucose assessments were initiated. Nutrition/diabetes education counseling may be considered as circumstances justify. Outpatient medication schedules will be reviewed confirmed and facilitated as appropriate. Reconciliation of home treatments including adjustment substitutions and reintroduction into the treatment regimen as necessary maintenance therapies for chronic pre-existing medical conditions. Plan of care has been reviewed and discussed in detail with the patient. Questions addressed. Hospital course dictated by clinical findings, treatment response and potential consultative interventions. Patient is a risk for further acute clinical decline due to his frailty, chief complaints and comorbid conditions. Condition is serious. Prognosis is guarded. CODE STATUS is full. Past Med Surg Social Fam HX - Past Medical History Source: old records reviewed Medical history: arthritis, cirrhosis, CHF, COPD, coronary artery disease, diabetes, GERD, hyperlipidemia, hypertension, liver disease, osteoporosis, TIA, other (Restless leg syndrome.) Psychiatric history: anxiety, depression, PTSD, other - Past Surgical History Surgical History: appendectomy, cholecystectomy, herniorrhaphy, knee replacement , other - Social History Smoking Status: Never smoker Smokeless Tobacco Status: No Alcohol use: none Drug use: none Occupational status: retired Current living situation: With Family Activity Level: Independent ambulation, Mostly sedentary Recent Out of Country Travel Within the Last 8 Weeks: No Exposure or Possible Exposure to Illness During Travel: No - Family History Mother Living Status: Hx Family Cancer: Yes Internal Medicine - H&P: Meds Cholecalciferol (Vitamin D3) [Vitamin D] 1,000 unit PO DAILY 05/13/15 [History] Insulin ASPART [NovoLOG] 48 - 94 unit SQ TIDWM 05/13/15 [History] Ropinirole HCl [Requip] 2 mg PO HS 05/13/15 [History] Venlafaxine HCl [Effexor Xr] 75 mg PO DAILY 05/13/15 [History] Aspirin Enteric Coated [Aspirin EC] 81 mg PO DAILY 11/13/15 [History] Atorvastatin [Lipitor] 40 mg PO HS 11/13/15 [History] Insulin Glargine,Hum.rec.anlog [Lantus Solostar] 160 unit SQ BID 11/13/15 [ History] Lactulose 45 ml PO TID 11/13/15 [History] Omeprazole [PriLOSEC] 20 mg PO DAILY 11/13/15 [History] Tamsulosin [Flomax] 0.4 mg PO DAILY 11/13/15 [History] Furosemide [Lasix] 40 mg PO DAILY 05/16/16 [History] Lisinopril [Zestril] 2.5 mg PO HS 05/16/16 [History] RisperiDONE [Risperdal] 3 mg PO HS 05/16/16 [History] Rivaroxaban [Xarelto] 10 mg PO DAILY 05/16/16 [History] Sertraline [Zoloft] 50 mg PO DAILY 05/16/16 [History] Spironolactone [Aldactone] 50 mg PO DAILY 05/16/16 [History] Atenolol [Tenormin] 50 mg PO DAILY 05/29/16 [History] LevETIRAcetam [Keppra] 750 mg PO BID 06/07/16 [History] Ipratropium/Albuterol Neb [Duoneb] 3 ml IH Q6HR PRN 08/10/16 [History] HYDROcodone/Acet 5/325 mg [[place]aco 5-325 mg] 1 tab PO BID PRN #20 tablet 08/19/16 [Rx] Rifaximin [Xifaxan] 200 mg PO BID tablet 08/19/16 [Rx] Dicyclomine [Bentyl] 10 mg PO QID PRN #20 capsule 09/01/16 [Rx] Ondansetron HCl [Zofran] 4 mg PO Q6HR PRN #20 tablet 09/01/16 [Rx] Allergies Iodinated Contrast Media - Oral and Allergy (Verified 08/31/16 21:14) Difficulty Breathing ketorolac [From Toradol] Allergy (Verified 08/31/16 21:14) Nausea Penicillins Allergy (Verified 08/31/16 21:14) Rash butorphanol [From Stadol] Adverse Reaction (Verified 08/31/16 21:14) Nausea celecoxib Adverse Reaction (Verified 08/31/16 21:14) [facility] gabap[facility] Adverse Reaction (Verified 08/31/16 21:14) unknown [facility] list. mirtazapine Adverse Reaction (Verified 08/31/16 21:14) [facility] tramadol Adverse Reaction (Verified 08/31/16 21:14) [facility] vancomycin Adverse Reaction (Verified 08/31/16 21:14) unknown [facility] ROS unobtainable: due to mental status All Systems PM: A 10-system review of systems was performed and is negative for pertinent findings except as documented above in the HPI. - Constitutional Constitutional: as per HPI - EENT Eyes: as per HPI Ears: as per HPI Nose, mouth and throat: as per HPI - Cardiovascular Cardiovascular ROS IM: as per HPI - Respiratory Respiratory: as per HPI - Gastrointestinal Gastrointestinal: as per HPI - Genitourinary Genitourinary ROS male: as per HPI - Musculoskeletal Musculoskeletal ROS IM: as per HPI - Integumentary Integumentary IM: as per HPI - Neurological Neurological ROS: as per HPI - Psychiatric Psychiatric: as per HPI - Endocrine Endocrine IM: as per HPI - Hematologic/Lymphatic Hematologic/Lymphatic: as per HPI - Allergic/Immunologic Allergic/Immunologic: as per HPI - Constitutional Vitals: Temp Pulse Resp BP Pulse Ox 98.6 F 83 16 112/64 97 08/10/16 20:04 08/10/16 21:04 08/10/16 21:04 08/10/16 21:04 08/10/16 21:04 General appearance: Present: disheveled, A&O X 2, mild distress, morbidly obese. Absent: answers questions appropriately - Head Head exam: Present: atraumatic, normocephalic - Eye Eye exam: Present: EOMI, PERRL, conjuntiva pink, sclera anicteric Pupils: Present: normal accommodation, PERRL - ENT ENT exam: Present: mucous membranes moist, normal oropharynx - Neck Neck exam general surgery: Present: full ROM, supple, trachea midline. Absent: lymphadenopathy, tenderness, nuchal rigidity - Respiratory Respiratory exam: Present: decreased breath sounds, CTAB. Absent: accessory muscle use, rales, rhonchi, wheezes - Cardiovascular Cardiovascular exam: Present: distant heart sounds, RRR, +S1, +S2. Absent: diastolic murmur, gallop, rubs, systolic murmur - GI/Abdominal GI/Abdominal exam: Present: normal bowel sounds, soft, no peritoneal signs. Absent: distended, tenderness - Extremities Exam Extremities exam: Present: full ROM, warm, radial pulses palpable and symetrical. Absent: calf tenderness, cyanotic, pedal edema - Neurological Exam Neurological exam: Present: alert, altered, CN II-XII intact, no focal deficits. Absent: oriented X3, pronater drift, facial droop, speech deficit - Expanded Neurological Exam Neurological exam expanded: Present: ataxia, inattentive, protecting the airway. Absent: expressive aphasia, receptive aphasia Patient oriented to: Present: person, place. Absent: time Speech: Present: garbled Coma Scale Eye Opening: To Voice Coma Scale Motor Response: Localizes to Pain Coma Scale Verbal Response: Inappropriate Coma Scale Total: 11 - Psychiatric Psychiatric exam: Present: anxious, depressed, flat affect - Skin Skin exam: Present: dry, intact, warm. Absent: petechiae, rash, urticaria, vesicles Internal Med - H&P Results - Labs CBC & Chem 7: 08/19/16 04:50 08/19/16 06:26 - Impressions Vital Signs Temp Pulse Resp BP Pulse Ox 08/10/16 21:04 83 16 112/64 97 08/10/16 20:04 98.6 F 101 16 109/53 96 Intake and Output 08/10/16 08/10/16 08/10/16 07:59 15:59 23:59 Other: Weight 108.862 kg Patient Weight 08/10/16 23:59 Weight 108.862 kg Short CBC 08/10/16 Range/Units 21:09 WBC 5.7 (4.3-11.1) K/mcL Hgb 9.1 L (12.9-16.9) g/dL Hct 28.4 L (37.5-50.1) % Plt Count 100 L (140-400) K/mcL Neutrophils # 3.4 (1.6-8.9) K/mcL BMP 08/10/16 Range/Units 21:09 Sodium 125 L (136-145) mEq/L Potassium 5.7 H (3.5-4.5) mEq/L Chloride 92 L (98-109) mEq/L Carbon Dioxide 22 (19-29) mEq/L BUN 56 H (8-26) mg/dL Creatinine 2.29 H (0.72-1.25) mg/dL Glucose 331 H (70-99) mg/dL Calcium 9.2 (8.6-10.8) mg/dL Liver Function 08/10/16 Range/Units 21:09 Total Bilirubin 0.4 (0.2-1.2) mg/dL Direct Bilirubin 0.2 (0.0-0.5) mg/dL AST 35 H (5-34) Units/L ALT 37 (0-55) Units/L Alkaline Phosphatase 140 H (38-126) Units/L Albumin 3.3 L (3.5-5.0) g/dL Abnormal lab results RBC 3.66 M/mcL (4.19-5.50) L 08/10/16 21:09 Hgb 9.1 g/dL (12.9-16.9) L 08/10/16 21:09 Hct 28.4 % (37.5-50.1) L 08/10/16 21:09 MCV 77.6 fL (83.0-100.0) L 08/10/16 21:09 MCH 24.9 pg (28.0-33.3) L 08/10/16 21:09 RDW 15.9 % (11.5-14.5) H 08/10/16 21:09 Plt Count 100 K/mcL (140-400) L 08/10/16 21:09 PT 17.2 Seconds (9.4-12.1) H 08/10/16 21:09 Sodium 125 mEq/L (136-145) L 08/10/16 21:09 Potassium 5.7 mEq/L (3.5-4.5) H 08/10/16 21:09 Chloride 92 mEq/L (98-109) L 08/10/16 21:09 BUN 56 mg/dL (8-26) H 08/10/16 21:09 Creatinine 2.29 mg/dL (0.72-1.25) H 08/10/16 21:09 Est GFR ( Amer) 35 (> 60) L 08/10/16 21:09 Est GFR (Non-Af Amer) 29 (> 60) L 08/10/16 21:09 Glucose 331 mg/dL (70-99) H 08/10/16 21:09 POC Glucose 296 (58-89) H 08/10/16 20:16 Lactic Acid 3.1 mmol/L (0.5-2.2) H 08/10/16 21:09 AST 35 Units/L (5-34) H 08/10/16 21:09 Alkaline Phosphatase 140 Units/L (38-126) H 08/10/16 21:09 Ammonia 89 mcmol/L (18-72) H 08/10/16 23:09 Albumin 3.3 g/dL (3.5-5.0) L 08/10/16 21:09 Globulin 5.0 g/dL (2.4-3.5) H 08/10/16 21:09 Albumin/Globulin Ratio 0.7 (1.1-2.2) L 08/10/16 21:09 Allergies Allergy/AdvReac Type Severity Reaction Status Date / Time Iodinated Contrast Media - Allergy Difficulty Verified 06/07/16 06:25 Oral and Breathing ketorolac [From Toradol] Allergy Nausea Verified 06/07/16 06:25 Penicillins Allergy Rash Verified 06/07/16 06:25 butorphanol [From Stadol] AdvReac Nausea Verified 06/08/16 17:28 celecoxib AdvReac unknown Verified 06/07/16 06:25 gabapentin AdvReac unknown Verified 06/07/16 09:34 mirtazapine AdvReac unknown Verified 06/07/16 06:25 tramadol AdvReac unknown Verified 06/07/16 06:25 vancomycin AdvReac unknown Verified 06/07/16 06:25 Laboratory Results WBC 5.7 K/mcL (4.3-11.1) 08/10/16 21:09 RBC 3.66 M/mcL (4.19-5.50) L 08/10/16 21:09 Hgb 9.1 g/dL (12.9-16.9) L 08/10/16 21:09 Hct 28.4 % (37.5-50.1) L 08/10/16 21:09 MCV 77.6 fL (83.0-100.0) L 08/10/16 21:09 MCH 24.9 pg (28.0-33.3) L 08/10/16 21:09 MCHC 32.0 g/dL (31.6-35.5) 08/10/16 21:09 RDW 15.9 % (11.5-14.5) H 08/10/16 21:09 Plt Count 100 K/mcL (140-400) L 08/10/16 21:09 MPV 11.0 fL (9.4-12.4) 08/10/16 21:09 Immature Gran % 0.4 % (0-4) 08/10/16 21:09 Seg Neutrophils % 59.8 % 08/10/16 21:09 Lymphocytes % 25.0 % 08/10/16 21:09 Monocytes % 12.3 % 08/10/16 21:09 Eosinophils % 2.1 % 08/10/16 21:09 Basophils % 0.4 % 08/10/16 21:09 Neutrophils # 3.4 K/mcL (1.6-8.9) 08/10/16 21:09 Lymphocytes # 1.4 K/mcL (0.6-4.6) 08/10/16 21:09 Monocytes # 0.7 K/mcL (0.0-1.3) 08/10/16 21:09 Eosinophils # 0.1 K/mcL (0.0-0.6) 08/10/16 21:09 Basophils # 0.0 K/mcL (0.0-0.2) 08/10/16 21:09 PT 17.2 Seconds (9.4-12.1) H 08/10/16 21:09 INR 1.6 08/10/16 21:09 APTT 36.0 Seconds (26.0-36.0) 08/10/16 21:09 Sodium 125 mEq/L (136-145) L 08/10/16 21:09 Potassium 5.7 mEq/L (3.5-4.5) H 08/10/16 21:09 Chloride 92 mEq/L (98-109) L 08/10/16 21:09 Carbon Dioxide 22 mEq/L (19-29) 08/10/16 21:09 BUN 56 mg/dL (8-26) H 08/10/16 21:09 Creatinine 2.29 mg/dL (0.72-1.25) H 08/10/16 21:09 Est GFR ( Amer) 35 (> 60) L 08/10/16 21:09 Est GFR (Non-Af Amer) 29 (> 60) L 08/10/16 21:09 BUN/Creatinine Ratio 24 (6-26) 08/10/16 21:09 Glucose 331 mg/dL (70-99) H 08/10/16 21:09 POC Glucose 296 (58-89) H 08/10/16 20:16 Calculated Osmolality 288 (280-300) 08/10/16 21:09 Lactic Acid 3.1 mmol/L (0.5-2.2) H 08/10/16 21:09 Calcium 9.2 mg/dL (8.6-10.8) 08/10/16 21:09 Total Bilirubin 0.4 mg/dL (0.2-1.2) 08/10/16 21:09 Direct Bilirubin 0.2 mg/dL (0.0-0.5) 08/10/16 21:09 Indirect Bilirubin 0.2 mg/dL (0.0-1.2) 08/10/16 21:09 AST 35 Units/L (5-34) H 08/10/16 21:09 ALT 37 Units/L (0-55) 08/10/16 21:09 Alkaline Phosphatase 140 Units/L (38-126) H 08/10/16 21:09 Ammonia 89 mcmol/L (18-72) H 08/10/16 23:09 Serum Total Protein 8.3 g/dL (6.0-8.3) 08/10/16 21:09 Albumin 3.3 g/dL (3.5-5.0) L 08/10/16 21:09 Globulin 5.0 g/dL (2.4-3.5) H 08/10/16 21:09 Albumin/Globulin Ratio 0.7 (1.1-2.2) L 08/10/16 21:09 Lipase 62 Units/L (8-78) 08/10/16 21:09 Stool Occult Blood Negative (Negative) 08/10/16 21:20 Impressions Abdomen/Pelvis CT 08/10/16 20:46 IMPRESSION: No acute intra-abdominal or pelvic abnormalities. Stable changes of cirrhosis and portal hypertension. D/ / Moose Arzola MD / Moose Arzola MD Interpreting Provider: Moose Arzola MD Chest X-Ray 08/10/16 20:46 IMPRESSION: No acute cardiopulmonary disease. Stable cardiomegaly. D/ / Jules Gamble MD / Jules Gamble MD Interpreting Provider: Jules Gamble MD - Attending Attestation Allergies Iodinated Contrast Media - Oral and Allergy (Verified 08/31/16 21:14) Difficulty Breathing ketorolac [From Toradol] Allergy (Verified 08/31/16 21:14) Nausea Penicillins Allergy (Verified 08/31/16 21:14) Rash butorphanol [From Stadol] Adverse Reaction (Verified 08/31/16 21:14) Nausea celecoxib Adverse Reaction (Verified 08/31/16 21:14) [facility] gabapentin Adverse Reaction (Verified 08/31/16 21:14) unknown [facility] list. mirtazapine Adverse Reaction (Verified 08/31/16 21:14) [facility] tramadol Adverse Reaction (Verified 08/31/16 21:14) [facility] vancomycin Adverse Reaction (Verified 08/31/16 21:14) [facility] Home Medications Medication Instructions Recorded Confirmed Type Cholecalciferol (Vitamin D3) 1,000 unit PO DAILY 05/13/15 08/24/16 History [Vitamin D] Insulin ASPART [NovoLOG] 48 - 94 unit SQ TIDWM 05/13/15 08/24/16 History Ropinirole HCl [Requip] 2 mg PO HS 05/13/15 08/24/16 History Venlafaxine HCl [Effexor Xr] 75 mg PO DAILY 05/13/15 08/24/16 History Aspirin Enteric Coated [Aspirin EC] 81 mg PO DAILY 11/13/15 08/24/16 History Atorvastatin [Lipitor] 40 mg PO HS 11/13/15 08/24/16 History Insulin Glargine,Hum.rec.anlog 160 unit SQ BID 11/13/15 08/24/16 History [Lantus Solostar] Lactulose 45 ml PO TID 11/13/15 08/24/16 History Omeprazole [PriLOSEC] 20 mg PO DAILY 11/13/15 08/24/16 History Tamsulosin [Flomax] 0.4 mg PO DAILY 11/13/15 08/24/16 History Furosemide [Lasix] 40 mg PO DAILY 05/16/16 08/24/16 History Lisinopril [Zestril] 2.5 mg PO HS 05/16/16 08/24/16 History RisperiDONE [Risperdal] 3 mg PO HS 05/16/16 08/24/16 History Rivaroxaban [Xarelto] 10 mg PO DAILY 05/16/16 08/24/16 History Sertraline [Zoloft] 50 mg PO DAILY 05/16/16 08/24/16 History Spironolactone [Aldactone] 50 mg PO DAILY 05/16/16 08/24/16 History Atenolol [Tenormin] 50 mg PO DAILY 05/29/16 08/24/16 History LevETIRAcetam [Keppra] 750 mg PO BID 06/07/16 08/24/16 History Ipratropium/Albuterol Neb [Duoneb] 3 ml IH Q6HR PRN 08/10/16 08/24/16 History Prescriptions Medication Instructions Recorded Type HYDROcodone/Acet 5/325 mg [[place] 1 tab PO BID PRN #20 tablet 08/19/16 Rx 5-325 mg] Rifaximin [Xifaxan] 200 mg PO BID tablet 08/19/16 Rx Medications Discontinued Medications Acetaminophen (Tylenol) 650 mg PO Q6HR PRN PRN Reason: Mild Pain (1-3) Stop: 02/09/17 23:45 Last Admin: 08/11/16 12:26 Dose: 650 mg Re-Assess: [facility] Pain Assessment Document 08/11/16 13:11 AAS (Rec: 08/11/16 14:02 AAS [id number]) Patient's Stated Pain Level Pain Intensity 5 Acetaminophen (Tylenol) 500 mg PO Q8H PRN PRN Reason: Mild Pain (1-3) Stop: 02/10/17 13:44 Acetaminophen/Hydrocodone Bitart ([place] 5-325 Mg) 1 tab PO BID PRN PRN Reason: Pain Stop: 02/10/17 21:53 Last Admin: 08/12/16 10:29 Dose: 1 tab Re-Assess: [facility] Pain Assessment Document 08/12/16 10:59 SLT (Rec: 08/12/16 11:41 SLT [id number]) Patient's Stated Pain Level Pain Intensity 8 Albuterol Sulfate (Proventil Neb) 2.5 mg IH ONCE ONE PRN Reason: Protocol Stop: 08/12/16 06:23 Last Admin: 08/12/16 07:37 Dose: Albuterol/Ipratropium (Duoneb) 3 ml IH [id number] SHARMIN PRN Reason: Protocol Stop: 02/10/17 04:01 Last Admin: 08/19/16 10:28 Dose: Aspirin (Aspirin Ec) 81 mg PO DAILY [facility] Stop: 02/10/17 09:01 Atenolol (Tenormin) 50 mg PO DAILY [facility] Stop: 02/10/17 09:01 Last Admin: 08/11/16 08:32 Dose: Not Given Non-Admin Reason: Low BP Dextrose/Water (Dextrose 50% (Syg)) 25 ml IVP AD PRN PRN Reason: Hypoglycemia Stop: 02/10/17 00:19 Dextrose/Water (Dextrose 50% (Syg)) 25 ml IVP ONCE PRN PRN Reason: Hypoglycemia Stop: 08/14/16 15:40 Docusate Sodium (Colace) 100 mg PO BID PRN PRN Reason: Constipation Stop: 02/09/17 23:45 Furosemide (Lasix) 40 mg PO DAILY [facility] Stop: 02/10/17 09:01 Glucagon (Glucagen) 1 mg IM ONCE PRN PRN Reason: Hypoglycemia Stop: 02/10/17 00:19 Glucose (Gluctose) 15 gm PO ONCE PRN PRN Reason: Hypoglycemia Stop: 02/10/17 00:19 Glucose (Gluctose) 30 gm PO ONCE PRN PRN Reason: Hypoglycemia Stop: 02/10/17 00:19 Hydralazine HCl (Hydralazine) 10 mg IVP Q6HR PRN PRN Reason: Hypertension Stop: 02/12/17 08:06 Hydromorphone HCl (Dilaudid) 1 mg IVP Q2H PRN PRN Reason: Severe Pain (7-10) Stop: 02/09/17 23:45 Hydromorphone HCl (Dilaudid) 0.5 mg IVP ONCE ONE Stop: 08/15/16 19:48 Last Admin: 08/15/16 20:15 Dose: 0.5 mg Hydromorphone HCl (Dilaudid) 1 mg IVP ONCE ONE Stop: 08/16/16 08:55 Last Admin: 08/16/16 10:37 Dose: 1 mg Re-Assess: LISA Pain Assessment Document 08/16/16 11:22 [facility] (Rec: 08/16/16 11:29 [facility] [id number]) Patient's Stated Pain Level Pain Intensity 0 Comment asleep Hydromorphone HCl (Dilaudid) 1 mg IVP Q4HR PRN PRN Reason: Pain Stop: 02/15/17 12:35 Last Admin: 08/18/16 08:54 Dose: 1 mg Re-Assess: [facility] Pain Assessment Document 08/18/16 09:39 KMB (Rec: 08/18/16 10:24 KMB [id number]) Patient's Stated Pain Level Pain Intensity 4 Hydromorphone HCl (Dilaudid) 1 mg IVP ONCE ONE Stop: 08/16/16 22:59 Last Admin: 08/16/16 23:16 Dose: 1 mg Hydromorphone HCl (Dilaudid) 0.5 mg IVP ONCE ONE Stop: 08/17/16 21:43 Last Admin: 08/17/16 22:05 Dose: 0.5 mg Hydromorphone HCl (Dilaudid) 0.5 mg IVP Q4HR PRN PRN Reason: Pain Stop: 02/15/17 12:35 Last Admin: 08/19/16 04:53 Dose: 0.5 mg Re-Assess: [facility] Pain Assessment Document 08/19/16 05:38 SLT (Rec: 08/19/16 08:25 SLT [id number]) Patient's Stated Pain Level Pain Intensity 8 Comment ab Sodium Chloride (0.9 % Sodium Chloride) 1,000 mls @ 3,750 mls/hr IVC .Q16M ONE Stop: 08/10/16 21:02 Last Admin: 08/10/16 21:45 Dose: 3,750 mls/hr Sodium Chloride (0.9 % Sodium Chloride) 1,000 mls @ 3,750 mls/hr IVC .Q16M ONE Stop: 08/10/16 22:59 Last Admin: 08/11/16 02:40 Dose: Sodium Chloride (0.9 % Sodium Chloride) 1,000 mls @ 125 mls/hr IVC .Q8H SHARMIN Stop: 02/09/17 23:46 Last Admin: 08/11/16 16:11 Dose: Ceftriaxone Sodium 1,000 mg/ (Dextrose) 100 mls @ 200 mls/hr IVPB Q12HR ONE Stop: 08/11/16 00:13 Last Admin: 08/11/16 02:44 Dose: 200 mls/hr Dextrose (Dextrose 5%) 1,000 mls @ 100 mls/hr IV CONT PRN PRN Reason: HYPOGLYCEMIA Stop: 02/10/17 00:19 Ceftriaxone Sodium 1,000 mg/ (Dextrose) 100 mls @ 200 mls/hr IVPB Q12HR [facility] Stop: 02/10/17 18:01 Ceftriaxone Sodium 2,000 mg/ (Dextrose) 100 mls @ 200 mls/hr IVPB Q24H [facility] Stop: 02/10/17 14:01 Ciprofloxacin Lactate (Cipro 400 Mg/200 Ml) 400 mg in 200 mls @ 200 mls/hr IVPB Q24H [facility] Stop: 08/19/16 14:01 Last Infusion: 08/17/16 15:36 Dose: 0 mls/hr Metronidazole (Flagyl 500 Mg/100 Ml) 500 mg in 100 mls @ 100 mls/hr IVPB Q8HR [facility] Stop: 08/19/16 16:01 Last Infusion: 08/19/16 10:54 Dose: 0 mls/hr Calcium Gluconate 1,000 mg/ (Dextrose) 110 mls @ 220 mls/hr IVPB ONCE ONE Stop: 08/11/16 22:14 Last Admin: 08/11/16 23:31 Dose: 220 mls/hr Insulin Human Regular 5 unit/Sodium Bicarbonate 50 meq/Dextrose 550.05 mls @ 800 mls/hr IVC ONCE ONE Stop: 08/11/16 22:28 Last Admin: 08/12/16 01:15 Dose: 800 mls/hr Calcium Gluconate 1,000 mg/ (Dextrose) 110 mls @ 220 mls/hr IVPB ONCE ONE Stop: 08/12/16 06:51 Last Infusion: 08/12/16 07:45 Dose: 0 mls/hr Sodium Chloride (0.9 % Sodium Chloride) 1,000 mls @ 75 mls/hr IVC .[id number] [facility] Stop: 02/11/17 06:34 Last Admin: 08/12/16 08:00 Dose: 75 mls/hr Iron Dextran 1,000 mg/ Sodium (Chloride) 520 mls @ 104 mls/hr IVPB ONCE ONE Stop: 08/12/16 16:59 Last Admin: 08/12/16 15:36 Dose: Iron Dextran 1,000 mg/ Sodium (Chloride) 520 mls @ 104 mls/hr IVPB ONCE ONE Stop: 08/12/16 20:59 Last Admin: 08/12/16 17:00 Dose: 104 mls/hr Sodium Chloride (0.9 % Sodium Chloride) 1,000 mls @ 40 mls/hr IVC .Q24H [facility] Stop: 08/14/16 09:24 Last Admin: 08/13/16 09:35 Dose: 40 mls/hr Magnesium Sulfate 2 gm/ (Dextrose) 104 mls @ 100 mls/hr IVPB ONCE ONE Stop: 08/13/16 11:36 Last Admin: 08/13/16 11:16 Dose: 100 mls/hr Insulin Human Regular 100 unit (/ Sodium Chloride) 101 mls @ 14.14 mls/hr IVC CONT SHARMIN; 14 UNIT/HR PRN Reason: Protocol Stop: 02/12/17 15:46 Last Titration: 08/14/16 01:58 Dose: 24.96 unit/hr, 25.2 mls/hr Insulin Human Regular 250 unit (/ Sodium Chloride) 252.5 mls @ 14.14 mls/hr IVC CONT SHARMIN; 14 UNIT/HR PRN Reason: Protocol Stop: 02/12/17 15:46 Last Titration: 08/14/16 09:36 Dose: 7.02 unit/hr, 7.1 mls/hr Sodium Chloride (0.9 % Sodium Chloride) 1,000 mls @ 70 mls/hr IVC .[id number] [facility] Stop: 02/14/17 16:16 Last Admin: 08/16/16 08:18 Dose: 70 mls/hr Ciprofloxacin Lactate (Cipro 400 Mg/200 Ml) 400 mg in 200 mls @ 200 mls/hr IVPB Q12H [facility] Stop: 08/19/16 14:01 Last Infusion: 08/19/16 15:18 Dose: 0 mls/hr Insulin Detemir (Levemir) 28 unit 0.25 unit/kg (28 unit) SQ HS [facility] Stop: 02/10/17 00:31 Last Admin: 08/11/16 02:45 Dose: 28 unit Insulin Detemir (Levemir) 20 unit SQ BID [facility] Stop: 02/10/17 15:09 Last Admin: 08/12/16 00:07 Dose: 20 unit Insulin Detemir (Levemir) 30 unit SQ BID [facility] Stop: 02/11/17 09:01 Last Admin: 08/12/16 09:00 Dose: 30 unit Insulin Detemir (Levemir) 60 unit SQ BID [facility] Stop: 02/11/17 21:01 Last Admin: 08/12/16 22:21 Dose: 60 unit Insulin Detemir (Levemir) 80 unit SQ BID [facility] Stop: 02/12/17 06:46 Last Admin: 08/13/16 08:06 Dose: 80 unit Insulin Detemir (Levemir) 100 unit SQ HS [facility] Stop: 02/13/17 10:02 Insulin Detemir (Levemir) 100 unit SQ BID [facility] Stop: 02/13/17 10:14 Last Admin: 08/17/16 09:25 Dose: 100 unit Insulin Detemir (Levemir) 60 unit SQ BID [facility] Stop: 02/16/17 21:01 Last Admin: 08/18/16 08:37 Dose: 60 unit Insulin Detemir (Levemir) 60 unit SQ BID [facility] Stop: 02/16/17 21:01 Last Admin: 08/18/16 08:36 Dose: 60 unit Insulin Detemir (Levemir) 65 unit SQ BID [facility] Stop: 02/16/17 21:01 Last Admin: 08/19/16 08:41 Dose: 65 unit Insulin Detemir (Levemir) 65 unit SQ BID [facility] Stop: 02/16/17 21:01 Last Admin: 08/19/16 08:41 Dose: 65 unit Insulin Human Lispro (Humalog) 0 units SQ TIDAC [facility] PRN Reason: Protocol Stop: 02/10/17 07:31 Last Admin: 08/13/16 11:39 Dose: 18 units Insulin Human Lispro (Humalog) 0 units SQ HS [facility] PRN Reason: Protocol Stop: 02/10/17 21:01 Last Admin: 08/12/16 22:25 Dose: 8 units Insulin Human Lispro (Humalog) 10 units SQ TIDWM [facility] Stop: 02/11/17 12:01 Last Admin: 08/13/16 11:39 Dose: 10 units Insulin Human Lispro (Humalog) 10 units SQ ONCE ONE Stop: 08/12/16 14:22 Last Admin: 08/12/16 14:23 Dose: 10 units Insulin Human Lispro (Humalog) 10 units SQ ONCE ONE Stop: 08/13/16 10:46 Last Admin: 08/13/16 11:04 Dose: 10 units Insulin Human Lispro (Humalog) 20 units SQ TIDWM [facility] Stop: 02/12/17 17:01 Insulin Human Lispro (Humalog) 35 units SQ TIDWM [facility] Stop: 02/13/17 12:01 Last Admin: 08/19/16 11:49 Dose: 35 units Insulin Human Lispro (Humalog) 0 units SQ TIDAC [facility] PRN Reason: Protocol Stop: 02/13/17 11:31 Last Admin: 08/19/16 11:49 Dose: 14 units Insulin Human Lispro (Humalog) 0 units SQ HS [facility] PRN Reason: Protocol Stop: 02/13/17 21:01 Last Admin: 08/18/16 21:05 Dose: 7 units Iron Dextran (Dexferrum) 25 mg IVP ONCE ONE Stop: 08/12/16 11:14 Last Admin: 08/12/16 13:54 Dose: Iron Dextran (Dexferrum) 25 mg IVP ONCE ONE Stop: 08/12/16 14:01 Iron Dextran (Dexferrum) 25 mg IVP ONCE ONE Stop: 08/12/16 15:01 Last Admin: 08/12/16 13:56 Dose: 25 mg Lactulose (Lactulose) 30 gm PO TID [facility] Stop: 02/10/17 09:01 Last Admin: 08/13/16 08:07 Dose: Not Given Non-Admin Reason: Patient Refused Lactulose (Lactulose) 10 gm PO TID [facility] Stop: 02/12/17 10:43 Last Admin: 08/19/16 14:06 Dose: Not Given Non-Admin Reason: Patient Refused Levetiracetam (Keppra) 750 mg PO BID [facility] Stop: 02/10/17 09:01 Last Admin: 08/19/16 08:23 Dose: 750 mg Lisinopril (Zestril) 2.5 mg PO HS [facility] PRN Reason: Protocol Stop: 02/10/17 21:01 Lisinopril (Zestril) 2.5 mg PO DAILY [facility] PRN Reason: Protocol Stop: 02/13/17 09:01 Morphine Sulfate (Morphine Sulfate) 4 mg IVP ONCE ONE Stop: 08/10/16 20:48 Last Admin: 08/10/16 21:45 Dose: 4 mg Re-Assess: [facility] Pain Assessment Document 08/10/16 22:15 TAB (Rec: 08/10/16 23:20 TAB [id number]) Patient's Stated Pain Level Pain Intensity 8 Comment "worked for a while" Morphine Sulfate (Morphine Sulfate) 4 mg IVP ONCE ONE Stop: 08/10/16 23:25 Last Admin: 08/11/16 00:18 Dose: 4 mg Re-Assess: [facility] Pain Assessment Document 08/11/16 00:48 CRS (Rec: 08/11/16 01:19 CRS [id number]) Patient's Stated Pain Level Pain Intensity 7 Morphine Sulfate (Morphine Sulfate) 1 mg IVP ONCE ONE Stop: 08/15/16 18:46 Last Admin: 08/15/16 18:54 Dose: 1 mg Re-Assess: [facility] Pain Assessment Document 08/15/16 19:24 BEF (Rec: 08/15/16 23:46 BEF [id number]) Patient's Stated Pain Level Pain Intensity 8 Morphine Sulfate (Morphine Sulfate) 1 mg IVP ONCE ONE Stop: 08/16/16 05:05 Last Admin: 08/16/16 05:14 Dose: 1 mg Naloxone HCl (Narcan) 0.4 mg IVP Q2MIN PRN PRN Reason: Opioid Reversal Stop: 02/09/17 23:45 Omeprazole (Prilosec) 20 mg PO DAILY SHARMIN PRN Reason: Protocol Stop: 02/10/17 09:01 Last Admin: 08/19/16 08:22 Dose: 20 mg Ondansetron HCl (Zofran) 4 mg IVP ONCE ONE PRN Reason: Protocol Stop: 08/10/16 20:48 Last Admin: 08/10/16 21:45 Dose: 4 mg Oxycodone HCl (Roxicodone) 10 mg PO Q6HR PRN PRN Reason: Moderate Pain (4-6) Stop: 02/09/17 23:45 Oxycodone HCl (Roxicodone) 5 mg PO Q6HR PRN PRN Reason: Pain Stop: 02/10/17 18:56 Oxycodone/Acetaminophen (Percocet 5/325) 1 each PO Q8HR PRN PRN Reason: Severe Pain 7-10 Stop: 02/11/17 14:26 Last Admin: 08/13/16 08:15 Dose: 1 each Re-Assess: [facility] Pain Assessment Document 08/13/16 09:00 RD (Rec: 08/13/16 09:29 [facility] [id number]) Patient's Stated Pain Level Pain Intensity 3 Oxycodone/Acetaminophen (Percocet 5/325) 1 each PO Q6H PRN PRN Reason: Severe Pain 7-10 Stop: 02/11/17 14:26 Last Admin: 08/17/16 03:10 Dose: 1 each Oxycodone/Acetaminophen (Percocet 7.5/325) 1 each PO Q4HR PRN PRN Reason: Pain Stop: 02/18/17 08:16 Last Admin: 08/19/16 14:02 Dose: 1 each Re-Assess: [facility] Pain Assessment Document 08/19/16 14:47 SLT (Rec: 08/19/16 14:49 SLT [id number]) Patient's Stated Pain Level Pain Intensity 7 Promethazine HCl (Phenergan) 12.5 mg IVP Q6HR PRN PRN Reason: Nausea And Vomiting Stop: 02/09/17 23:45 Rifaximin (Xifaxan) 200 mg PO BID [facility] Stop: 02/10/17 21:01 Last Admin: 08/19/16 08:22 Dose: 200 mg Risperidone (Risperdal) 3 mg PO HS [facility] Stop: 02/10/17 21:01 Last Admin: 08/18/16 21:16 Dose: 3 mg Rivaroxaban (Xarelto) 10 mg PO DAILY [facility] Stop: 02/10/17 09:01 Rivaroxaban (Xarelto) 10 mg PO 1700 SHARMIN Stop: 02/12/17 17:01 Last Admin: 08/18/16 17:02 Dose: 10 mg Ropinirole HCl (Requip) 2 mg PO HS [facility] Stop: 02/10/17 21:01 Ropinirole HCl (Requip) 2 mg PO HS [facility] Stop: 02/10/17 21:01 Last Admin: 08/18/16 21:15 Dose: 2 mg Sertraline HCl (Zoloft) 50 mg PO DAILY [facility] Stop: 02/10/17 09:01 Last Admin: 08/19/16 08:41 Dose: 50 mg Simvastatin (Zocor) 40 mg PO HS [facility] Stop: 02/10/17 21:01 Last Admin: 08/18/16 21:16 Dose: 40 mg Sodium Polystyrene Sulfonate (Kayexalate) 15 gm PO ONCE ONE Stop: 08/11/16 12:49 Last Admin: 08/11/16 13:58 Dose: Not Given Non-Admin Reason: Patient Refused Sodium Polystyrene Sulfonate (Kayexalate) 30 gm PO ONCE ONE Stop: 08/11/16 21:45 Last Admin: 08/11/16 22:47 Dose: Not Given Non-Admin Reason: Patient Refused Sodium Polystyrene Sulfonate (Kayexalate) 30 gm PO ONCE ONE Stop: 08/12/16 06:23 Last Admin: 08/12/16 09:01 Dose: 30 gm Sodium Polystyrene Sulfonate (Kayexalate) 30 gm PO ONCE ONE Stop: 08/14/16 06:55 Last Admin: 08/14/16 08:27 Dose: Not Given Non-Admin Reason: Patient Refused Spironolactone (Aldactone) 50 mg PO DAILY [facility] Stop: 02/10/17 09:01 Tamsulosin HCl (Flomax) 0.4 mg PO DAILY [facility] PRN Reason: Protocol Stop: 02/10/17 09:01 Last Admin: 08/19/16 08:22 Dose: 0.4 mg Venlafaxine HCl (Effexor Xr) 75 mg PO DAILY [facility] Stop: 02/10/17 09:01 Last Admin: 08/19/16 08:22 Dose: 75 mg Microbiology Results 08/11/16 09:26 Peripheral Venipuncture Blood Culture - Final No growth. 08/11/16 09:26 Peripheral Venipuncture Blood Culture - Final No growth. 08/11/16 08:50 Urine,Clean Catch Urine Culture - Final No growth. Nursing Notes 08/20/16 09:44 Car Top Bolter Note by Kaia Munguia [facility] had [facility]. Called [facility] delimber operator/ Katheryn, she checked with [facility] and stated that they did received this fax. Made SIGNAL CIRCUIT DESIGNER aware. Initialized on 08/20/16 09:44 - END OF NOTE 08/19/16 16:38 Social Work Note by Radha Torresw covering form supply chain systems manager met with patient regarding Pt/OT recommendation for HH. Electrician Supervisor Substation informed patient that [facility]. Patient confirmed. Electrician Supervisor Substation informed patient that [facility] could set up HH with [place] but if any other agency would need to private pay. Patient reported he just needed to file for Medicare but would not do so his ex spouse "could not get his benefits. " patient reported understanding. package sealer requested that [facility] inpatient care manager rn fax over referral to [place] [facility] for HH at [facility] [place]. Electrician Supervisor Substation informed patient's RN. Electrician Supervisor Substation informed patient that [place] would be in contact with patient regarding HH set up once they have reviewed patient's information. Patient reported understanding. Initialized on 08/19/16 16:38 - END OF NOTE 08/19/16 14:15 Car Top Bolter Note by Kaia Munguia Per request of SIGNAL CIRCUIT DESIGNER sent referral packet to the [place]. Initialized on 08/19/16 14:15 - END OF NOTE 08/19/16 12:43 Nurse Note by Cinda Mayers Spoke to [facility] (Furnace Setter) at [facility] ([phone]), He reports that the patient can take a cab back to the [facility] upon d/c because Pat will be unavailable to pick the patient up today. If patient d/c after 3pm, Pat will be at the [facility]dc and be able to pay the cab if the patient does not have the money. [facility] also informed this nurse that patient will need any scripts faxed to [facility] on [facility]. This nurse educated Pat that we will call him when patient d/c's. Initialized on 08/19/16 12:43 - END OF NOTE 08/19/16 11:49 OT Missed Visit by Kaye Palafox OT Missed Visit OT Missed Visit Start: 08/17/16 14: 59 Freq: Status: Active Document 08/19/16 11:48 DLP (Rec: 08/19/16 11:49 DLP [id number]) Missed Visit Reason Missed Visit Reason Refused/Declined Preliminary Draft Until Electronically Signed by Supervising Therapist Initialized on 08/19/16 11:49 - END OF NOTE 08/19/16 09:39 Nurse Note by Cinda Mayers A Patient complained of pain. Educated on what pain medication was available. When informed he had PO medications he replies "Can't I get the shot". Re- educated on what was available. Pain medication administered. When handed patient medications he states "What size is this one" This nurse informed him it was a Percocet 7.5mg. He replies "Man, I really want to go home today" Initialized on 08/19/16 09:39 - END OF NOTE 08/18/16 16:05 Car Top Bolter Note by Kaitlynn Matthews Talked with pt about need for HH. List of providers for [facility] given to pt and he stated he wanted to talk with Pat about who to chose. Informed pt to let staff know as soon as he has made a choice, pt voiced understanding. Initialized on 08/18/16 16:05 - END OF NOTE 08/18/16 13:33 OT Missed Visit by Kerry Gamez OT Missed Visit OT Missed Visit Start: 08/17/16 14: 59 Freq: Status: Active Document 08/18/16 13:33 KMT (Rec: 08/18/16 13:33 KMT [id number]) Missed Visit Reason Missed Visit Reason Refused/Declined Preliminary Draft Until Electronically Signed by Supervising Therapist Initialized on 08/18/16 13:33 - END OF NOTE 08/18/16 11:22 PT Missed Visit by Katheryn Dean PT Missed Visit PT Missed Visit Start: 08/14/16 11: 16 Freq: Status: Active Document 08/18/16 11:21 MJB (Rec: 08/18/16 11:21 MJB [id number]) Missed Visit Reason Missed Visit Reason Refused/Declined Comment stating he doesn't want to do anything until he knows if he is leaving today. Preliminary Draft Until Electronically Signed by Supervising Therapist Initialized on 08/18/16 11:22 - END OF NOTE 08/17/16 15:36 OT Missed Visit by Kaye Palafox OT Missed Visit OT Missed Visit Start: 08/17/16 14: 59 Freq: Status: Active Document 08/17/16 14:59 DLP (Rec: 08/17/16 15:00 DLP [id number]) Missed Visit Reason Missed Visit Reason Refused/Declined Preliminary Draft Until Electronically Signed by Supervising Therapist Initialized on 08/17/16 15:36 - END OF NOTE 08/17/16 15:15 PT Missed Visit by Katheryn Dean PT Missed Visit PT Missed Visit Start: 08/14/16 11: 16 Freq: Status: Active Document 08/17/16 15:14 MJB (Rec: 08/17/16 15:15 MJB [id number]) Missed Visit Reason Missed Visit Reason Refused/Declined Comment Pt adamantly refusing participation in PT services, stating he just didn't want to . Preliminary Draft Until Electronically Signed by Supervising Therapist Initialized on 08/17/16 15:15 - END OF NOTE 08/17/16 15:00 Nurse Note by Denise Nixon continues to be no EPCD's available - called central supply and searched unit - charge nurse aware Initialized on 08/17/16 15:00 - END OF NOTE 08/17/16 09:10 (created 08/17/16 10:07) Nurse Note by Denise Nixon patient requesting dilaudid for complaints of abdominal pain that he rated as an 8 - patient continually falling asleep during assessment prior to administration of pain medication - patient aroused easily and followed commands and continued to express need for pain medication - pain medication administered as ordered Initialized on 08/17/16 10:07 - END OF NOTE 08/17/16 02:12 Nurse Note by Camilla Fierro No EPCD's available in central at this time. erosion control coordinator aware. Initialized on 08/17/16 02:12 - END OF NOTE 08/16/16 22:01 Nurse Note by Suzanne Portillo Offered patient bath and patient refused. Said he may try to get one the next day Initialized on 08/16/16 22:01 - END OF NOTE 08/16/16 12:15 Nurse Note by Tavo Lawson pt said that he had been washed up last night 08/15/16. therefore does not want washed up today 08/16/16. If the pt was washed up it was not charted. Initialized on 08/16/16 12:15 - END OF NOTE 08/16/16 10:39 Nurse Note by Rae Perez Patient's bedside commode emptied after patient had a bowel movement. 1 bowel movement today, 2 voids today, per the patient. Per the patient, the commode hadn't been emptied in 2 days. The commode was half full with urine and bowel. Initialized on 08/16/16 10:39 - END OF NOTE 08/14/16 17:28 Social Work Note by Radha Torres PT/OT completed eval and recommended HH. Electrician Supervisor Substation was informed by patient's hospitalist informed patient during PCR rounding that patient will not dc today. Electrician Supervisor Substation will inform supply chain systems manager of PT/OT recommendation. Electrician Supervisor Substation informed medical staff. Initialized on 08/14/16 17:28 - END OF NOTE 08/14/16 11:24 PT Evaluation by Satnam Jackson (Please sign and return this section for non-electronic signatures) I have reviewed, and agree with, the below stated plan of care: Referring Provider Signature/Printed Name Date Assessment Pt is appropriate for skilled rehab services. PT services are warranted at this time in order to address impairments and functional limitations as stated above. Pt required verbal cues with functional mobility tasks for safe use of RW. He c/o increased pain in R knee during standing activities. He would benefit from continued skilled PT services in home health setting in order to improve gait and balance. PT Treatment Diagnosis Other abnormalities of gait and mobility Rehab Potential Good Planned Interventions Therapeutic Exercise,Therapeutic Activity,Gait Training,Neuromuscular Reeducation PT Treatment Frequency Once a Day, Mon-Fri Estimated PT Needs at Home Health Discharge Pt. will perform all bed Supervision mobility Pt. will perform all transfers Supervision Pt. will demonstrate Good (+) static/dynamic balance Pt. will demonstrate gait ____ 200 ft SBA with walker ___ feet with assist Pt. will participate in of 10 minutes continuous activity Pt. will verbally recall Walker Safety/Assistive D precautions without cues Pt. will perform therapeutic [place] exercise Physical Therapy PT Acute Eval Start: 08/14/16 11: 16 Freq: Status: Active Document 08/14/16 11:16 [facility] (Rec: 08/14/16 11:24 [facility] [id number]) Inpatient Rehab Intake History Date of Admission 08/10/16 Chief Complaint Abdominal Pain PMH/Surgical History Relevant to Rehab Acute abdominal pain syndrome, rectal bleeding, toxic metabolic encephalopathy, delirium, chronic liver disease, cirrhosis, right knee pain, CHF, bicytopenia, CKD, hyperkalemia, obesity, depression, CAD, DM2, COPD, PTSD, TIA Medical Diagnosis Diagnosis Acute Abdominal Pain syndrom Reason for Referral/Orders To evaluate and treat Safety/Limitations History of falls in past 6 months Multiple falls, more than 2 times Restrictions/Precautions Fall Precautions/Risk Fluid/Dietary Restriction Home/PLOF History Provided By Patient Lives With: [facility] Type of Dwelling Single Family Home Number of Floors (Floors) 1 Number of Stairs to Enter (Stairs) 3 Are there handrails? Ramp Entry Bathing Environment Shower Current DME Cane Shower Chair Grab Bars in Shower Grab Bars at Toilet Prior Level Of Function Independent Prior Mobility Level MOD I with cane Driving Facility drives patient to appointments Patient/Family Goal To return to [facility]dc Pain Assessment Pain Present Pain Present Reports Pain Functional Mobility Assessment Bed Mobility Bed Mobility Ability Minimum Assistance 1 Person Assist Bed Mobility Assistive Devices Bed Rail Elevated HOB Bed Transfers Bed Transfer Ability Contact Guard Assist (CGA) 1 Person Assist Bed Transfer Assistive Devices Rolling Walker Transfer Belt Balance Static Sitting Balance Ability Good Dynamic Sitting Balance Ability Good -/Fair + Static Standing Balance Ability Good -/Fair + Dynamic Standing Balance Ability Fair Ambulation Assistive Devices Rolling Walker Endurance Activity Tolerance Fair Gait/Stairs Deviation Assess. General Ambulation Ability Contact Guard Assist (CGA) Ambulation Distance (ft) (feet) 50 Ambulation Assistive Device Rolling Walker Gait Belt Ambulation Ability Comments Pt ambulates with step-through gait pattern. Decreased lima, decreased WB through R LE, and excessive distance from AD are noted. No major instances of LOB appreciated, but pt unsteady throughout. Gross Strength/ROM Upper Extremity Gross UE Strength Other (See Detail) Gross UE ROM Other (See Detail) UE ROM/Strength Detail see OT eval Lower Extremity Gross LE ROM Within Functional Limits LE ROM/Strength Detail B LE strength grossly 4-/5 Edema/Skin Integrity Skin Integrity Comment intact Gross Sensorimotor Sensory Gross Sensation No Deficit Noted Coordination Gross Coordination No Deficit Noted Cognition/Visual Assessment Alertness/Orientation Level of Alertness Alert Active Patient Orientation Person Place Date of Month Awareness/Safety Safety Awareness Patient Is Aware of Their Safety Patient Is Aware of Others Safety Situational Awareness Understands Safety Issues Visual Visual Acuity No Deficits Noted Auditory Hearing Ability Normal Comprehension Ability to Follow Directions Follows Complex Expression/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 Patient Behavior Appropriate Cooperative Speech Pattern Clear Appropriate Coherent Eye Contact Maintains Eye Contact Rehab Education Education Provided Education Topic Bed Mobility Transfers Gait Safety Awareness Teaching Recipient Patient Teaching Method Verbal Response to Teaching Verbalize understanding Acute Care PT POC Stroke Is patient being assessed for No rehabilitation for diagnosis of stroke? Summary AM-PAC PT Basic Mobility Raw Score 19 AM-PAC CMS 0-100% Impaired Score 36 Problems/Impairments/Functional Decreased Functional Endurance Limitation Decreased Functional Mobility/ Transfers Decreased Standing Tolerance Balance Impaired Gait Decreased Strength Assessment Pt is appropriate for skilled rehab services. PT services are warranted at this time in order to address impairments and functional limitations as stated above. Pt required verbal cues with functional mobility tasks for safe use of RW. He c/o increased pain in R knee during standing activities. He would benefit from continued skilled PT services in home health setting in order to improve gait and balance. Rehab Potential Good Disposition at end of Eval/Treatment In bed RN/CLERICAL ASSISTANT informed Call light/phone within reach Tray table within reach All needs met Plan of Care PT Treatment Diagnosis Other abnormalities of gait and mobility Planned Interventions Therapeutic Exercise Therapeutic Activity Gait Training Neuromuscular Reeducation PT Treatment Frequency Once a Day, Mon-Fri Goals Determined With Patient/Family Yes Estimated PT Needs at Discharge Home Health PT Estimated DME Needs at D/C Front Wheeled Walker Shower Chair Functional Mobility Goals Pt. will perform all bed mobility with__ Supervision ___to increase functional indendence. Pt. will perform all transfers with Supervision to increase safe functional mobility and independence. Pt. will demonstrate static/dynamic Good (+) balance during all functional activities allowing increased safety awareness. Pt. will demonstrate gait feet 200 ft SBA with walker with assist using to increase functional mobility, strength, and/or endurance. ROM/Strength/Endurance Goals Pt. will participate in of 10 minutes continuous activity allowing increased endurance while completing ADLs improving quality of life. Education Goals Pt. will verbally recall precautions Walker Safety/Assistive Device without cues for increased safety & compliance in discharge environment. Pt. will perform therapeutic exercise [place] with to improve functional ROM, strength, and endurance during all functional activities. Supervising Therapist Supervising Therapist Satnam Jackson Eval and Re-Eval Charges G-Code Evaluation Time Evaluation Time: Minutes with Patient 15 Complexity Eval/Re-eval Physical Therapy Evaluation High Yes Complexity Documentation Complete PT Charges/Documentation Finished? Yes Last Visit Is patient being discharged from PT No today? Business Needs Financial Class [place] Secondary P[place] PT G-code Therapy Billing Start: 08/14/16 11: 16 Freq: Status: Active Document 08/14/16 11:16 JACKSON (Rec: 08/14/16 11:24 JACKSON [id number]) PT G-codes G-Code Required G-code Required For This Visit No Current G-code Status PT Current Status Mobility PT Current Status Modifier At least 20% but less than 40% impaired, limited or restricted Goal G-code Status PT Goal Status Mobility PT Goal Status Modifer At least 1% but less than 20% impaired, limited or restricted Preliminary Draft Until Electronically Signed by Supervising Therapist Initialized on 08/14/16 11:24 - END OF NOTE 08/14/16 10:28 OT Evaluation by Sofya Gibson (Please sign and return this section for non-electronic signatures) I have reviewed, and agree with, the below stated plan of care: Referring Provider Signature/Printed Name Date OT Treatment Diagnosis Weakness Assessment Pt demonstrated the above following deficits that warrant OT intervention at this time. Rehab Potential Good Planned OT Interventions Therapeutic Exercise,Therapeutic Activity,OT Evaluation OT Treatment Frequency Once a Day, Mon-Fri Estimated OT Needs at Home Health Discharge Patient will participate Modified Independent Patient will improve AM-PAC Patient will perform paced 7-9 minutes functional activity/ADLs while st Patient will improve Bilateral UE strength by 1/2 grade Patient will complete 10-15 min with breaks Patient will complete bed Contact Guard Assistance Patient will sit EOB to >10 minutes improve Patient will improve Supervision Patient will verbally/ Walker Safety/Assistive D demonstrate recall of precautio Occupational Therapy OT Acute Eval Start: 08/14/16 10: 17 Freq: Status: Active Document 08/14/16 10:17 PAC (Rec: 08/14/16 10:28 PAC [id number]) Inpatient Rehab Intake History Date of Admission 08/10/16 Chief Complaint Abdominal Pain PMH/Surgical History Relevant to Rehab Acute abdominal pain syndrome, rectal bleeding, toxic metabolic encephalopathy, delirium, chronic liver disease, cirrhosis, right knee pain, CHF, bicytopenia, CKD, hyperkalemia, obesity, depression, CAD, DM2, COPD, PTSD, TIA Factors/Comorbidities Impacting POC Obesity Substance Abuse Medical Diagnosis Diagnosis Acute Abdominal Pain syndrom Reason for Referral/Orders To evaluate and treat Safety/Limitations History of falls in past 6 months Multiple falls, more than 2 times Restrictions/Precautions Fall Precautions/Risk Fluid/Dietary Restriction Home/PLOF History Provided By Patient Lives With: [facility] Type of Dwelling Single Family Home Number of Floors (Floors) 1 Number of Stairs to Enter (Stairs) 3 Are there handrails? Ramp Entry Bathing Environment Shower Current DME Cane Shower Chair Grab Bars in Shower Grab Bars at Toilet Prior Level Of Function Independent Prior Mobility Level MOD I with cane Driving Facility drives patient to appointments Patient/Family Goal To return to [facility] Pain Assessment Pain Present Pain Present Reports Pain Pain Right Knee Intensity 8 Functional Mobility Assessment Bed Mobility Bed Mobility Ability Minimum Assistance 1 Person Assist Bed Mobility Assistive Devices Bed Rail Elevated HOB Bed Transfers Bed Transfer Ability Contact Guard Assist (CGA) 1 Person Assist Bed Transfer Assistive Devices Rolling Walker Transfer Belt Balance Static Sitting Balance Ability Good Dynamic Sitting Balance Ability Good -/Fair + Static Standing Balance Ability Good -/Fair + Dynamic Standing Balance Ability Fair Ambulation Assistive Devices Rolling Walker Endurance Activity Tolerance Fair Additional Info Additional Information See PT eval ADL Assessment Grooming Grooming Ability Independent Upper Body Dressing Upper Body Dressing Ability Independent Lower Body Dressing Lower Body Dressing Ability Minimum Assistance Bathing Washing/Drying Upper Body Ability Independent Washing/Drying Lower Extremities Ability Minimum Assistance Eating Eating (Feeding) Ability Independent Toileting Performing Toilet Hygiene Ability Independent Managing Clothing Ability Independent Functional Activity Tolerance Activity Tolerance Fair Gross Strength/ROM Upper Extremity Gross UE Strength Other (See Detail) Gross UE ROM Within Functional Limits UE ROM/Strength Detail bilateral shoulder strength was 4-/5 and elbow strength was 3+/5 Limitations/Factors of Tone Rating Muscle Tone Description Normal Edema/Skin Integrity Skin Integrity Comment Intact and functional Gross Sensorimotor Sensory Gross Sensation No Deficit Noted Sensation Response to Light Touch Intact/Normal Stimulus Sensation Response to Kinesthesia ( Intact/Normal Movement) Stimulus Coordination Gross Coordination No Deficit Noted Fine Motor Coordination No Deficit Noted Cognition/Visual Assessment Alertness/Orientation Level of Alertness Alert Active Patient Orientation Person Place Date of Month Awareness/Safety Mental Status Alert & Oriented Safety Awareness Patient Is Aware of Their Safety Patient Is Aware of Others Safety Situational Awareness Understands Safety Issues Attention to Task No Deficits Noted Visual Visual Acuity No Deficits Noted Visual Processing Visual Spatial Deficit No Deficits Noted Auditory Hearing Ability Normal Comprehension Ability to Follow Directions Follows Complex Comprehension Ability Mild Impairment Expression/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 Patient Behavior Appropriate Cooperative Speech Pattern Clear Appropriate Coherent Eye Contact Maintains Eye Contact Problem Solving Problem Solving Ability Able To Solve Simple Problems Able To Solve Complex Problems Memory Memory Summary Memory is intact Acute OT POC Stroke Is patient being assessed for No rehabilitation for diagnosis of stroke? Summary AM-PAC OT Inpatient Daily Activity Raw 18 Score AM-[facility] 0-100% Impaired Score 46 Problems/Impairments/Functional Decreased Functional Endurance Limitation Decreased ADL's/IADL's Decreased Safety/Judgement/ Cognition Decreased Functional Mobility/ Transfers Decreased Standing Tolerance Balance Decreased Strength Assessment Pt demonstrated the above following deficits that warrant OT intervention at this time. Rehab Potential Good Disposition at end of Eval/Treatment In bed Lines intact RN/CLERICAL ASSISTANT informed Call light/phone within reach Tray table within reach All needs met Plan of Care OT Treatment Diagnosis Weakness Planned OT Interventions Therapeutic Exercise Therapeutic Activity OT Evaluation OT Treatment Frequency Once a Day, Mon-Fri Estimated OT Needs at Discharge Home Health OT Estimated DME Needs at D/C Front Wheeled Walker ADL/Outcome Goals Patient will participate in ADLs of Modified Independent various media (dressing,bathing) with___ __ to improve ADL I/participation by hospital discharge. Patient will improve functional outcome -[facility] score on by noted improvement of score (increase or decrease as measured on tool by 2 points) within short term hospitalization stay. Strength/ROM/Endurance Goals Patient will perform paced functional 7-9 minutes activity/ADLs while standing for to improve functional activity tolerance as needed for improved ADL performance prior to discharge. Patient will improve strength by 1 Bilateral UE /2 grade to improve ADL participation & independence by short term hospial stay. Patient will complete of paced 10-15 min with breaks therapeutic exercise to improve functional stamina as needed for daily routine & ADLs by hosptial discharge. Functional Mobility/Standing Goals Patient will complete bed mobility to Contact Guard Assistance improve functional mobility as needed for ADL participation with by hospital discharge. Patient will sit EOB to improve static/ >10 minutes dynamic sitting balance for while engaging in functional tasks/activity in preparation for functional mobility required for ADLs by hospital discharge. Patient will improve functional transfer Supervision ability to to improve independence with ADLs by dicharge from hospital. Compensation/Educational Goals Patient will verbally/demonstrate recall Walker Safety/Assistive Device of precautions in order to increase safety with ADLs & promote proper healing by discharge. Supervising Therapist Supervising Therapist Gladys Royal Eval and Re-Eval Charges G-Code Evaluation Time Evaluation Time: Minutes with Patient 20 Complexity Eval/Re-eval Occupational Therapy Evaluation Moderate Yes Complexity Documentation Complete OT Charges/Documentation Finished? Yes Last Visit Is patient being discharged from OT No today? Business Needs Financial Class [place] OT G-code Therapy Billing Start: 08/14/16 10: 17 Freq: Status: Active Document 08/14/16 10:28 PAC (Rec: 08/14/16 10:28 PAC [id number]) OT G-codes G-Code Required G-code Required For This Visit No Current G-code Status OT Current Status Subsequent PT/OT Status OT Current Status Modifier At least 40% but less than 60% impaired, limited or restricted Goal G-code Status OT Goal Status Subsequent PT/OT Status OT Goal Status Modifier At least 20% but less than 40% impaired, limited or restricted Preliminary Draft Until Electronically Signed by Supervising Therapist Initialized on 08/14/16 10:28 - END OF NOTE 08/13/16 11:47 Nurse Note by Erin Moraes Patient complaining of pain. This nurse spoke with tenzin Elias to give prn percocet that was newly ordered. Initialized on 08/13/16 11:47 - END OF NOTE 08/12/16 13:01 Nurse Note by Coby Ruth Pt refusing to wear EPCD's. This RN educated pt on importance of wearing EPCD' s. Pt voiced understanding and still refused Initialized on 08/12/16 13:01 - END OF NOTE 08/12/16 13:00 Nurse Note by Cinda Mayers notified of patient requesting pain medication. Following message sent: (patient is complaining that he wants a "pain shot" he has been requesting this since yesterday, because he says "I got one when I first got here". He reports to me that he is an ex-drug addict and that is why he lives in the [facility] house now. We switched from the Roxicodone to the [place] which is his home dose. We keep informing him that he is receiving his home dose. He claims to have abdominal pain rating it a 8/10, and that nothing helps but "the shot". No apparent pain or distress.) Awaiting further orders. Initialized on 08/12/16 13:00 - END OF NOTE 08/12/16 12:02 Nurse Note by Cinda Mayers multiple attempts to restart IV unsuccessful. Currently awaiting for IV team to place ultrasound guided IV. aware Initialized on 08/12/16 12:02 - END OF NOTE 08/11/16 16:03 Recycling Technician by Geni Delgadillo Patient fell asleep while talking to him about home care of diabetes. Will try again tomorrow. Initialized on 08/11/16 16:03 - END OF NOTE 08/11/16 16:03 Transport Report by Lindsay Pringle Date: 08/11/16 Transport Method: Stretcher Iodinated Contrast Media - Oral and Allergy (Verified 06/07/16 06:25) Difficulty Breathing ketorolac [From Toradol] Allergy (Verified 06/07/16 06:25) Nausea Penicillins Allergy (Verified 06/07/16 06:25) Rash butorphanol [From Stadol] Adverse Reaction (Verified 06/08/16 17:28) Nausea celecoxib Adverse Reaction (Verified 06/07/16 06:25) unknown gabapentin Adverse Reaction (Verified 06/07/16 09:34) unknown mirtazapine Adverse Reaction (Verified 06/07/16 06:25) unknown tramadol Adverse Reaction (Verified 06/07/16 06:25) unknown vancomycin Adverse Reaction (Verified 06/07/16 06:25) unknown Resuscitation Status Full Code 08/11/16 19:00 Retroperitoneal Ultrasound - Complete [US retroperitoneal comp] [US] Routine Comment: Mode Of Transportation: Stretcher Reason For Exam: MJ Order Doctor: Nesha Solano Exam Performed At:: [facility] Additional Notes/Special Instructions: PREP GIVEN, TRANSPORT AWARE Oxygen: Room Air 2 Mental Status: Alert Fall Risk: Isolation: Nurse Required for Transport: No ___ Yes Limb Restrictions: No ___ Yes Behavioral issue/Risk for Elopement: No ___ Yes Telemetry Room Notification: Destination: MRI XRAY STRESS ULTRASOUND CT DIALYSIS ENDO OTHER: Depart Time: Nurse: Transporter: Arrive Time: Received by: ___ Return Time: Nurse: Transporter: ] Initialized on 08/11/16 16:03 - END OF NOTE 08/11/16 13:58 Nurse Note by Coby Ruth Pt refused to take kayexalate X3 attempts. Pt refusing to wear oma hose. Educated on importance of taking kayexalate and wearing oma hose. Pt still refused Initialized on 08/11/16 13:58 - END OF NOTE 08/11/16 08:20 Nurse Note by Cinda Mayers notified of patient b/p 88/64. Orders to run 1L of fluids at a bolus rate. Initialized on 08/11/16 08:20 - END OF NOTE 08/11/16 05:11 Nurse Note by Sandro Duong Fall precautions put in place at time of admission to nursing unit. Patient instructed to use call light for assistance, and not to get up unassisted without a staff member present in the room. Bed exit alarm is on. Initialized on 08/11/16 05:11 - END OF NOTE 08/11/16 03:46 Nurse Note by Katy Tai Per Dr. Fulton, PRBC's are on hold for hgb less than 7. Initialized on 08/11/16 03:46 - END OF NOTE 08/10/16 23:12 Transport Report by Foreign Zuleta Date: 08/10/16 Transport Method: Stretcher Iodinated Contrast Media - Oral and Allergy (Verified 06/07/16 06:25) Difficulty Breathing ketorolac [From Toradol] Allergy (Verified 06/07/16 06:25) Nausea Penicillins Allergy (Verified 06/07/16 06:25) Rash butorphanol [From Stadol] Adverse Reaction (Verified 06/08/16 17:28) Nausea celecoxib Adverse Reaction (Verified 06/07/16 06:25) unknown gabapentin Adverse Reaction (Verified 06/07/16 09:34) unknown mirtazapine Adverse Reaction (Verified 06/07/16 06:25) unknown tramadol Adverse Reaction (Verified 06/07/16 06:25) unknown vancomycin Adverse Reaction (Verified 06/07/16 06:25) unknown Resuscitation Status Oxygen: 2 Mental Status: Fall Risk: Isolation: Nurse Required for Transport: No ___ Yes Limb Restrictions: No ___ Yes Behavioral issue/Risk for Elopement: No ___ Yes Telemetry Room Notification: Destination: MRI XRAY STRESS ULTRASOUND CT DIALYSIS ENDO OTHER: Depart Time: Nurse: Transporter: Arrive Time: Received by: ___ Return Time: Nurse: Transporter: ] Initialized on 08/10/16 23:12 - END OF NOTE Orders 08/10/16 20:16 POC Glucometer Test [POC] Routine 08/10/16 20:46 CT abd pelvis wo no iv no oral [CT] Stat Mode Of Transportation: Stretcher Reason For Exam: diffuse lower abd pain, rectal bleeding Order Doctor: Edilberto Montes Exam Performed At:: [facility] Allergic to Contrast: No XR chest 1V portable [XR] Stat Mode Of Transportation: Stretcher Reason For Exam: confusion Order Doctor: Edilberto Montes Exam Performed At:: [facility] Additional Notes/Special Instructions: 30..IN CT@2125...PT REPORTS HAVING CXR TODAY@2155HRS...NO PRIOR FOUND IN PACS 08/10/16 20:47 0.9 % Sodium Chloride 1,000 ml IVC 3,750 mls/hr Morphine [Morphine Sulfate] 4 mg IVP ONCE ONE Ondansetron [Zofran] 4 mg IVP ONCE ONE 08/10/16 21:09 Activated Partial Thrombo Time [COAG] Stat Comment: Specimen: Send someone from the department to collect Basic Metabolic Panel Stat Comment: Specimen: Send someone from the department to collect Complete Blood Count [HEME] Stat Comment: Specimen: Send someone from the department to collect Hepatic Panel Stat Comment: Specimen: Send someone from the department to collect Lactate [Lactic Acid ([facility] Only)] Stat Comment: Specimen: Send someone from the department to collect Lipase Stat Comment: Specimen: Send someone from the department to collect Prothrombin Time INR [COAG] Stat Comment: Specimen: Send someone from the department to collect 08/10/16 21:20 Fecal Hemoccult [Occult Blood,Stool] [BF] Stat Comment: Specimen: Send someone from the department to collect 08/10/16 22:[address] Stat Comment: Reason for Visit: Dehydration 08/10/16 22:44 0.9 % Sodium Chloride 1,000 ml IVC 3,750 mls/hr 08/10/16 23:09 Ammonia Stat Comment: Specimen: Send someone from the department to collect 08/10/16 23:24 Morphine [Morphine Sulfate] 4 mg IVP ONCE ONE 08/10/16 23:44 Admit as Inpatient Routine Estimated Total Length of Stay (Days): 3 Plans for Post Hospital Care: Home Inpatient Status Required: Still symptomatic/not sta Unresolved acute problem Explain each choice below Explain Concerns: patient presents w/ acute illness w/ risk for further clinical decline due to co-morbidities Potential Adverse Outcome: Respiratory Failure Cardiac Perfusion Declining Mental Status Is VTE Prophylaxis Indicated?: Yes Apply anti-embolic stockings [RC] .ONCE Insert second IV line [RC] .ONCE Obtain Old EKG [RC] .ONCE Peripheral IV [RC] CONT Saline lock [RC] .ONCE Supplemental oxygen titration [RC] .CONTINUOUS Physician Instructions: Urinary straight catherization [RC] .IF UNABLE TO VOID AFTER 12 HOURS Vital Signs Assessment [RC] PROTOCOL Vital Signs Assessment [RC] Q4H Troponin I Q6H Comment: Specimen: Send someone from the department to collect Acetaminophen [Tylenol] 650 mg PO Q6HR PRN CefTRIAXone [Rocephin] 1,000 mg D5% in Water (Mini-Bag+) [Dextrose 5% (Minibag +) 100 ML] 100 ml IVPB Q12HR Docusate [Colace] 100 mg PO BID PRN HYDROmorphone (PF) [Dilaudid] 1 mg IVP Q2H PRN Naloxone [Narcan] 0.4 mg IVP Q2MIN PRN OxyCODONE Immed Rel [Roxicodone] 10 mg PO Q6HR PRN Promethazine [Phenergan] 12.5 mg IVP Q6HR PRN Resuscitation Status: Active [RES] Routine Comment: Resuscitation Status: Full Code 08/10/16 23:45 0.9 % Sodium Chloride 1,000 ml IVC 125 mls/hr 08/10/16 23:46 Cardiac monitoring [RC] .ONCE 08/10/16 23:47 ECG 12 lead ECG [ECG] Stat Mode Of Transportation: Stretcher Reason For Exam: ams. abd pain.rectal bleeding. Exam Performed At:: [facility] 08/10/16 23:50 12 lead ECG assessment [RC] NOW Cardiac Monitoring Med/Surg [RC] .CONT Telemetry Reason: ACS/CP Continuous pulse oximetry [RC] CONT Comment: Measure intake and output [RC] QSHIFT Measure weight [RC] DAILY RT has an order or consult [RC] NOW 08/10/16 23:51 Oxygen via nasal cannula Nasal Cannula 2 lpm Comment: Titrate O2 to main O2 sat greater than: 92% 08/10/16 Breakfast Clear Liquid Diet Diet Modifications: 08/11/16 00:18 Glucose, blood poc measurement [RC] ACHS Hypoglycemia Treatment Orders [RC] .once Notify provider [RC] once Physician Instructions: Consult to Recycling Technician [CONS] Routine Comment: D5% in Water [Dextrose 5%] 1,000 ml IV CONT Dextrose 50 % in Water (Syg) [Dextrose 50% (Syg)] 25 ml IVP AD PRN Dextrose Gel [Gluctose] 15 gm PO ONCE PRN Dextrose Gel [Gluctose] 30 gm PO ONCE PRN Glucagon, Human Recombinant [GlucaGen] 1 mg IM ONCE PRN 08/11/16 00:30 Insulin DETEMIR [Levemir] 28 unit SQ HS 08/11/16 00:48 Amylase Routine Hgb A1C Routine Comment: Specimen: Send someone from the department to collect Lipid Panel AM 0400 Comment: Specimen: Send someone from the department to collect Magnesium AM 0400 Comment: Specimen: Send someone from the department to collect Phosphorous AM 0400 Comment: Specimen: Send someone from the department to collect Type and Screen [BBK] AM 0400 BBK Wristband Number: [id number] Comment: Specimen: Send someone from the department to collect 08/11/16 01:32 POC Glucometer Test [POC] Routine 08/11/16 04:00 Ipratropium/Albuterol Neb [Duoneb] 3 ml IH [id number] 08/11/16 07:28 Hemoglobin and Hematocrit [HEME] Q6H Comment: Specimen: Send someone from the department to collect Troponin I Q6H Comment: Specimen: Send someone from the department to collect 08/11/16 07:30 Insulin LISPRO [HumaLOG] See Protocol SQ TIDAC 08/11/16 07:53 POC Glucometer Test [POC] Routine 08/11/16 08:11 Mendez [Urinary cath initate/manage] [RC] .NOW Intake and Output, Strict [RC] DAILY 08/11/16 08:50 Culture,Urine [RM] Stat LARRY Source: [facility] [place] Specimen Description: Drug Screen, Urine [UCHEM] Stat Comment: Specimen: Has been collected Eosinophil,Urine [URIN] Routine Comment: Specimen: Has been collected Sodium, Urine [UCHEM] Routine Comment: Specimen: Has been collected Urea Nitrogen,Urine [UCHEM] Routine Comment: Specimen: Has been collected Urinalysis Reflex Cult & Micro [URIN] Stat Comment: Specimen: Has been collected 08/11/16 09:00 Aspirin Enteric Coated [Aspirin EC] 81 mg PO DAILY Atenolol [Tenormin] 50 mg PO DAILY Furosemide [Lasix] 40 mg PO DAILY Lactulose 30 gm PO TID LevETIRAcetam [Keppra] 750 mg PO BID How will this medication be supplied?: Pharmacy to Subsitute Omeprazole [PriLOSEC] 20 mg PO DAILY Rivaroxaban [Xarelto] 10 mg PO DAILY Sertraline [Zoloft] 50 mg PO DAILY Spironolactone [Aldactone] 50 mg PO DAILY Tamsulosin [Flomax] 0.4 mg PO DAILY Venlafaxine XR (24 HR) [Effexor XR] 75 mg PO DAILY 08/11/16 09:01 Consult to Gastroenterology [CONS] Routine Consulting Provider: [facility] [place] Reason for Consult: GI bleed? UC? Call Completed: Yes 08/11/16 09:26 BMP [Basic Metabolic Panel] Stat Comment: Specimen: Send someone from the department to collect CK [Creatine Kinase] Stat Comment: Specimen: Send someone from the department to collect Complete Blood Count [HEME] Stat Comment: Specimen: Send someone from the department to collect Culture,Blood [BC] Stat Comment: LARRY Source: Peripheral Venipuncture Quantity: 2 Specimen: Send someone from the department to collect Specimen Description: Lactic Acid ([facility] Only) Stat Comment: Specimen: Send someone from the department to collect 08/11/16 10:49 Hemoglobin and Hematocrit [HEME] Q6H Comment: Specimen: Send someone from the department to collect Troponin I Q6H Comment: Specimen: Send someone from the department to collect 08/11/16 11:44 POC Glucometer Test [POC] Routine 08/11/16 12:48 Sodium Polystyrene Sulfonate [Kayexalate] 15 gm PO ONCE ONE 08/11/16 13:35 Consult to Nephrology [CONS] Routine Consulting Provider: Kidney Elizabeth/WILMAR/TIARRA/CINTHIA Reason for Consult: MJ Call Completed: Yes 08/11/16 13:43 Acetaminophen [Tylenol] 500 mg PO Q8H PRN 08/11/16 13:47 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 order [RC] NOW Comment: 08/11/16 14:00 CefTRIAXone [Rocephin] 2,000 mg D5% in Water (Mini-Bag+) [Dextrose 5% (Minibag +) 100 ML] 100 ml IVPB Q24H Ciprofloxacin 400 MG/200 ML [Cipro 400 MG/200 ML] 400 mg in 200 ml IVPB Q24H 08/11/16 14:11 EPCD [Intermittent pneumatic earlene] [RC] .CONTINUOUS Intermit Pneumatic Compression Device: Calf Pumps 08/11/16 15:08 Insulin DETEMIR [Levemir] 20 unit SQ BID 08/11/16 15:42 POC Glucometer Test [POC] Routine 08/11/16 15:55 Osmolality,Urine [UCHEM] Routine Comment: Specimen: Has been collected Sodium, Urine [UCHEM] Routine Urinalysis reflex Microscopic [URIN] AM 0400 Comment: Specimen: Has been collected Urine Microalbumin Random [UCHEM] Routine Comment: Specimen: Has been collected Urine Protein Creat Ratio [place] [UCHEM] Routine Comment: Specimen: Has been collected 08/11/16 16:00 MetroNIDAZOLE 500 MG/100 ML [Flagyl 500 MG/100 ML] 500 mg in 100 ml IVPB Q8HR 08/11/16 16:03 Anti-Streptolysin O Antibody Routine Comment: Specimen: Send someone from the department to collect BMP [Basic Metabolic Panel] Routine Comment: Specimen: Send someone from the department to collect CK [Creatine Kinase] Stat Comment: Specimen: Send someone from the department to collect Complement Component 3 Routine Comment: Specimen: Send someone from the department to collect Complement Component 4 Routine Comment: Specimen: Send someone from the department to collect Complete Blood Count [HEME] Routine Comment: Specimen: Send someone from the department to collect Cortisol,Random Routine Comment: Specimen: Send someone from the department to collect F-Actin IgG Reflex Sm Muscle Routine Comment: Specimen: Send someone from the department to collect Ferritin Routine Comment: Specimen: Send someone from the department to collect Folate Routine Comment: Specimen: Send someone from the department to collect Hemoglobin and Hematocrit [HEME] Q6H Comment: Specimen: Send someone from the department to collect Hepatitis Prof.(Routine A,B,C) Routine Comment: Specimen: Send someone from the department to collect Iron Profile Routine Comment: Specimen: Send someone from the department to collect LDH [Lactate Dehydrogenase] Routine Comment: Specimen: Send someone from the department to collect Osmolality Routine Comment: Specimen: Send someone from the department to collect Procalcitonin Routine Comment: Specimen: Send someone from the department to collect Retic Count [HEME] Routine Comment: Specimen: Send someone from the department to collect Thyroid Stimulating Hormone Routine Comment: Specimen: Send someone from the department to collect Uric Acid Routine Comment: Specimen: Send someone from the department to collect VBG [Venous Blood Gas] Routine Comment: Specimen: Send someone from the department to collect Vitamin B12 Routine Comment: Specimen: Send someone from the department to collect 08/11/16 18:00 CefTRIAXone [Rocephin] 1,000 mg D5% in Water (Mini-Bag+) [Dextrose 5% (Minibag +) 100 ML] 100 ml IVPB Q12HR 08/11/16 18:55 OxyCODONE Immed Rel [Roxicodone] 5 mg PO Q6HR PRN 08/11/16 19:00 Retroperitoneal Ultrasound - Complete [US retroperitoneal comp] [US] Routine Comment: Mode Of Transportation: Stretcher Reason For Exam: MJ Order Doctor: Nesha Solano Exam Performed At:: [facility] Additional Notes/Special Instructions: PREP GIVEN, TRANSPORT AWARE 08/11/16 21:00 Insulin LISPRO [HumaLOG] See Protocol SQ HS Lisinopril [Zestril] 2.5 mg PO HS Rifaximin [Xifaxan] 200 mg PO BID RisperiDONE [RisperDAL] 3 mg PO HS Ropinirole [Requip] 2 mg PO HS Ropinirole [Requip] 2 mg PO HS How will this medication be supplied?: Pharmacy to Subsitute Simvastatin [Zocor] 40 mg PO HS 08/11/16 21:44 Sodium Polystyrene Sulfonate [Kayexalate] 30 gm PO ONCE ONE 08/11/16 21:45 Calcium Gluconate 1,000 mg D5% in Water [Dextrose 5%] 100 ml IVPB ONCE 08/11/16 21:47 Insulin Human Regular [HumuLIN R] 5 unit Sodium Bicarbonate 50 meq D10% in Water [Dextrose 10% Water 500 Ml Ivbag] 500 ml IVC ONCE 08/11/16 21:52 HYDROcodone/Acet 5/325 mg [[place] 5-325 mg] 1 tab PO BID PRN 08/11/16 21:53 POC Glucometer Test [POC] Routine 08/11/16 Dinner Diabetic Diet Diet Modifications: 08/12/16 00:44 POC Glucometer Test [POC] Routine 08/12/16 01:23 Complete Blood Count [HEME] AM 0400 Comment: Specimen: Send someone from the department to collect Comprehensive Metabolic Panel AM 0400 Comment: Specimen: Send someone from the department to collect Ionized Calcium AM 0400 Comment: Specimen: Send someone from the department to collect Magnesium AM 0400 Comment: Specimen: Send someone from the department to collect Phosphorous AM 0400 Comment: Specimen: Send someone from the department to collect 08/12/16 04:17 POC Glucometer Test [POC] Routine 08/12/16 04:18 POC Glucometer Test [POC] Routine 08/12/16 05:44 POC Glucometer Test [POC] Routine 08/12/16 06:22 Albuterol Neb [Proventil Neb] 2.5 mg IH ONCE ONE Calcium Gluconate 1,000 mg D5% in Water [Dextrose 5%] 100 ml IVPB ONCE Sodium Polystyrene Sulfonate [Kayexalate] 30 gm PO ONCE ONE 08/12/16 06:29 EKG [ECG 12 lead ECG] [ECG] Stat Mode Of Transportation: Stretcher Reason For Exam: hyperkalemia Order Doctor: Salvatore Patterson Exam Performed At:: [facility] 08/12/16 06:30 12 lead ECG assessment [RC] NOW 08/12/16 06:33 0.9 % Sodium Chloride 1,000 ml IVC 75 mls/hr 08/12/16 07:43 POC Glucometer Test [POC] Routine 08/12/16 09:00 Insulin DETEMIR [Levemir] 30 unit SQ BID 08/12/16 09:10 Protein Electrophoresis Routine Comment: Specimen: Send someone from the department to collect Serum Free Light Chain [[place] Lambda Qnt FLC w Ratio] Routine Comment: Specimen: Send someone from the department to collect 08/12/16 11:13 Iron Dextran Complex [Dexferrum] 25 mg IVP ONCE ONE 08/12/16 11:21 POC Glucometer Test [POC] Routine 08/12/16 11:23 POC Glucometer Test [POC] Routine 08/12/16 12:00 Insulin LISPRO [HumaLOG] 10 units SQ TIDWM Iron Dextran Complex [Dexferrum] 1,000 mg 0.9 % Sodium Chloride 500 ml IVPB ONCE 08/12/16 12:17 EPIV Insertion [RC] .ONCE Powerglide indications: Limited vascular access IV Invasive line management [RC] QSHIFT May use line for blood draws [RC] .PRN Signed consent on chart [RC] .ONCE Surgical preparation, skin ant [RC] .ONCE Consult to Invasive Line Access Team [CONS] Routine Reason for Consult: IV access Line Type: EPIV 08/12/16 12:53 Ammonia Routine Comment: Specimen: Send someone from the department to collect Potassium Routine Comment: Specimen: Send someone from the department to collect 08/12/16 13:55 POC Glucometer Test [POC] Routine 08/12/16 14:00 Iron Dextran Complex [Dexferrum] 25 mg IVP ONCE ONE 08/12/16 14:21 Insulin LISPRO [HumaLOG] 10 units SQ ONCE ONE 08/12/16 14:25 OxyCODONE/APAP 5/325 [Percocet 5/325] 1 each PO Q8HR PRN 08/12/16 15:00 Iron Dextran Complex [Dexferrum] 25 mg IVP ONCE ONE 08/12/16 15:18 POC Glucometer Test [POC] Routine 08/12/16 16:00 Iron Dextran Complex [Dexferrum] 1,000 mg 0.9 % Sodium Chloride 500 ml IVPB ONCE 08/12/16 21:00 Insulin DETEMIR [Levemir] 60 unit SQ BID 08/12/16 21:31 POC Glucometer Test [POC] Routine 08/13/16 04:51 Complete Blood Count [HEME] AM 0400 Comment: Specimen: Send someone from the department to collect Comprehensive Metabolic Panel AM 0400 Comment: Specimen: Send someone from the department to collect Ionized Calcium AM 0400 Comment: Specimen: Send someone from the department to collect Magnesium AM 0400 Comment: Specimen: Send someone from the department to collect Osmolality AM 0400 Comment: Specimen: Send someone from the department to collect 08/13/16 06:45 Insulin DETEMIR [Levemir] 80 unit SQ BID 08/13/16 07:01 POC Glucometer Test [POC] Routine 08/13/16 08:05 HydrALAZINE 10 mg IVP Q6HR PRN 08/13/16 09:22 OxyCODONE/APAP 5/325 [Percocet 5/325] 1 each PO Q6H PRN 08/13/16 09:25 0.9 % Sodium Chloride 1,000 ml IVC 40 mls/hr 08/13/16 09:27 Urinary catheter discontinuati [RC] now 08/13/16 10:34 Magnesium Sulfate 2 gm D5% in Water [Dextrose 5%] 100 ml IVPB ONCE 08/13/16 10:36 POC Glucometer Test [POC] Routine 08/13/16 10:37 POC Glucometer Test [POC] Routine 08/13/16 10:43 Lactulose 10 gm PO TID 08/13/16 10:45 Insulin LISPRO [HumaLOG] 10 units SQ ONCE ONE 08/13/16 11:38 POC Glucometer Test [POC] Routine 08/13/16 15:33 POC Glucometer Test [POC] Routine 08/13/16 15:39 Glucose, blood poc measurement [RC] Q1H Notify provider [RC] .PRN Physician Instructions: Dextrose 50 % in Water (Syg) [Dextrose 50% (Syg)] 25 ml IVP ONCE PRN 08/13/16 15:45 Insulin Human Regular [HumuLIN R] 100 unit 0.9 % Sodium Chloride 100 ml IVC CONT 08/13/16 16:29 POC Glucometer Test [POC] Routine 08/13/16 17:00 Insulin LISPRO [HumaLOG] 20 units SQ TIDWM Rivaroxaban [Xarelto] 10 mg PO 1700 08/13/16 17:31 POC Glucometer Test [POC] Routine 08/13/16 18:43 POC Glucometer Test [POC] Routine 08/13/16 19:56 POC Glucometer Test [POC] Routine 08/13/16 21:01 POC Glucometer Test [POC] Routine 08/13/16 22:06 POC Glucometer Test [POC] Routine 08/13/16 23:02 POC Glucometer Test [POC] Routine 08/14/16 00:03 POC Glucometer Test [POC] Routine 08/14/16 01:03 POC Glucometer Test [POC] Routine 08/14/16 01:57 POC Glucometer Test [POC] Routine 08/14/16 02:15 Insulin Human Regular [HumuLIN R] 250 unit 0.9 % Sodium Chloride 250 ml IVC CONT 08/14/16 03:02 POC Glucometer Test [POC] Routine 08/14/16 04:02 POC Glucometer Test [POC] Routine 08/14/16 04:13 Basic Metabolic Panel AM 0400 Comment: Specimen: Send someone from the department to collect Complete Blood Count [HEME] AM 0400 Comment: Specimen: Send someone from the department to collect Magnesium AM 0400 Comment: Specimen: Send someone from the department to collect 08/14/16 05:14 POC Glucometer Test [POC] Routine 08/14/16 05:59 POC Glucometer Test [POC] Routine 08/14/16 06:54 POC Glucometer Test [POC] Routine Sodium Polystyrene Sulfonate [Kayexalate] 30 gm PO ONCE ONE 08/14/16 07:59 POC Glucometer Test [POC] Routine 08/14/16 08:38 OT [Consult to Occupational Therapy] [CONS] Routine Comment: Evaluate, develop and implement POC PT [Consult to Physical Therapy] [CONS] Routine Comment: Evaluate, develop and implement POC 08/14/16 09:00 Lisinopril [Zestril] 2.5 mg PO DAILY 08/14/16 09:17 POC Glucometer Test [POC] Routine 08/14/16 10:01 Insulin DETEMIR [Levemir] 100 unit SQ HS 08/14/16 10:13 Insulin DETEMIR [Levemir] 100 unit SQ BID 08/14/16 10:33 XR knee RT limited 1-2V [XR] Routine Mode Of Transportation: Stretcher Quantity: 1 Reason For Exam: right knee pain Order Doctor: Salvatore Patterson Exam Performed At:: [facility] Additional Notes/Special Instructions: SEC 08/14/16 11:03 POC Glucometer Test [POC] Routine 08/14/16 11:30 Insulin LISPRO [HumaLOG] See Protocol SQ TIDAC 08/14/16 12:00 Insulin LISPRO [HumaLOG] 35 units SQ TIDWM 08/14/16 12:14 POC Glucometer Test [POC] Routine 08/14/16 17:07 POC Glucometer Test [POC] Routine 08/14/16 21:00 Insulin LISPRO [HumaLOG] See Protocol SQ HS 08/14/16 21:29 POC Glucometer Test [POC] Routine 08/15/16 06:22 Basic Metabolic Panel AM 0400 Comment: Specimen: Send someone from the department to collect Complete Blood Count [HEME] AM 0400 Comment: Specimen: Send someone from the department to collect 08/15/16 07:31 POC Glucometer Test [POC] Routine 08/15/16 11:36 POC Glucometer Test [POC] Routine 08/15/16 14:53 ECG 12 lead ECG [ECG] Routine Mode Of Transportation: Stretcher Reason For Exam: . 08/15/16 16:15 0.9 % Sodium Chloride 1,000 ml IVC 70 mls/hr 08/15/16 16:38 POC Glucometer Test [POC] Routine 08/15/16 16:39 POC Glucometer Test [POC] Routine 08/15/16 18:45 Morphine [Morphine Sulfate] 1 mg IVP ONCE ONE 08/15/16 19:17 POC Glucometer Test [POC] Routine 08/15/16 19:47 HYDROmorphone (PF) [Dilaudid] 0.5 mg IVP ONCE ONE 08/16/16 05:04 Morphine [Morphine Sulfate] 1 mg IVP ONCE ONE 08/16/16 05:39 CMP [Comprehensive Metabolic Panel] Routine Comment: Specimen: Send someone from the department to collect Complete Blood Count [HEME] Routine Comment: Specimen: Send someone from the department to collect 08/16/16 07:39 POC Glucometer Test [POC] Routine 08/16/16 08:54 HYDROmorphone (PF) [Dilaudid] 1 mg IVP ONCE ONE 08/16/16 11:32 POC Glucometer Test [POC] Routine 08/16/16 12:34 HYDROmorphone (PF) [Dilaudid] 1 mg IVP Q4HR PRN 08/16/16 16:29 POC Glucometer Test [POC] Routine 08/16/16 20:53 POC Glucometer Test [POC] Routine 08/16/16 20:55 POC Glucometer Test [POC] Routine 08/16/16 22:58 HYDROmorphone (PF) [Dilaudid] 1 mg IVP ONCE ONE 08/17/16 03:42 Basic Metabolic Panel AM 0400 Comment: Specimen: Send someone from the department to collect Complete Blood Count [HEME] AM 0400 Comment: Specimen: Send someone from the department to collect 08/17/16 04:32 Osmolality,Urine [UCHEM] AM 0400 Comment: Specimen: Has been collected 08/17/16 07:15 POC Glucometer Test [POC] Routine 08/17/16 09:04 POC Glucometer Test [POC] Routine 08/17/16 11:09 POC Glucometer Test [POC] Routine 08/17/16 16:00 POC Glucometer Test [POC] Routine 08/17/16 20:15 POC Glucometer Test [POC] Routine 08/17/16 21:00 Insulin DETEMIR [Levemir] 60 unit SQ BID Insulin DETEMIR [Levemir] 60 unit SQ BID 08/17/16 21:42 HYDROmorphone (PF) [Dilaudid] 0.5 mg IVP ONCE ONE 08/18/16 04:45 Complete Blood Count [HEME] AM 0400 Comment: Specimen: Send someone from the department to collect Comprehensive Metabolic Panel AM 0400 Comment: Specimen: Send someone from the department to collect 08/18/16 07:32 POC Glucometer Test [POC] Routine 08/18/16 10:52 POC Glucometer Test [POC] Routine 08/18/16 11:10 HYDROmorphone (PF) [Dilaudid] 0.5 mg IVP Q4HR PRN 08/18/16 14:00 Ciprofloxacin 400 MG/200 ML [Cipro 400 MG/200 ML] 400 mg in 200 ml IVPB Q12H 08/18/16 16:23 POC Glucometer Test [POC] Routine 08/18/16 20:29 POC Glucometer Test [POC] Routine 08/18/16 21:00 Insulin DETEMIR [Levemir] 65 unit SQ BID Insulin DETEMIR [Levemir] 65 unit SQ BID 08/19/16 04:50 CBC [Complete Blood Count] [HEME] AM 0400 Comment: Specimen: Send someone from the department to collect 08/19/16 06:26 Comprehensive Metabolic Panel AM 0400 Comment: Specimen: Send someone from the department to collect 08/19/16 08:08 POC Glucometer Test [POC] Routine 08/19/16 08:15 OxyCODONE/APAP 7.5/325 [Percocet 7.5/325] 1 each PO Q4HR PRN 08/19/16 09:54 Discharge Order [DISCHARGE] Routine Comment: Is this a conditional discharge order?: No 08/19/16 11:45 POC Glucometer Test [POC] Routine Vital Signs Temp Pulse Resp BP Pulse Ox 08/19/16 11:41 97.8 F 99 17 145/81 90 L 08/19/16 08:20 93 L 08/19/16 08:01 97.9 F 102 17 120/80 93 L 08/19/16 04:28 98.1 F 95 19 138/87 97 08/19/16 00:10 98.1 F 93 18 144/85 98 08/18/16 20:52 98.2 F 99 18 153/79 94 L 08/18/16 15:44 97.9 F 100 17 147/66 94 L 08/18/16 10:53 98.6 F 106 18 113/69 95 08/18/16 09:00 94 L 08/18/16 07:43 98.5 F 96 18 136/83 94 L 08/18/16 04:18 98.4 F 95 18 146/75 94 L 08/17/16 23:20 98.4 F 103 16 135/74 93 L 08/17/16 18:52 97.3 F L 110 18 134/79 95 08/17/16 16:00 97.8 F 97 17 129/71 93 L 08/17/16 11:06 97.6 F 105 18 136/81 95 08/17/16 09:10 93 L 08/17/16 07:16 98.3 F 76 16 135/81 93 L 08/17/16 03:05 98.0 F 99 20 122/71 94 L 08/16/16 22:55 98.1 F 109 18 147/80 96 08/16/16 18:53 97.9 F 96 18 142/74 95 08/16/16 16:22 97.5 F L 96 18 147/82 99 08/16/16 11:00 97.5 F L 103 18 152/82 95 08/16/16 08:30 98 08/16/16 07:34 97.8 F 96 18 161/78 98 08/16/16 03:56 97.9 F 98 18 107/72 92 L 08/16/16 00:50 98.0 F 95 18 122/73 96 08/15/16 18:48 98 F 110 16 126/73 93 L 08/15/16 16:33 98.2 F 109 18 109/68 94 L 08/15/16 15:03 97.5 F L 111 16 135/77 94 L 08/15/16 11:45 96 08/15/16 11:31 98.3 F 98 18 104/65 96 08/15/16 07:27 98.3 F 100 18 124/78 94 L 08/15/16 04:13 98.1 F 90 18 150/73 94 L 08/14/16 23:15 97.9 F 90 18 143/72 93 L 08/14/16 22:10 99 08/14/16 22:08 99 08/14/16 21:22 97.9 F 101 18 144/79 99 08/14/16 16:21 98 F 110 16 151/68 95 08/14/16 12:00 97.7 F 108 16 153/78 93 L 08/14/16 10:58 97.4 F L 105 18 128/79 94 L 08/14/16 08:02 97.8 F 106 18 137/72 97 08/14/16 06:10 97.9 F 108 19 134/87 93 L 08/14/16 01:06 98.5 F 99 19 134/84 90 L 08/13/16 21:28 98.2 F 108 16 151/80 95 08/13/16 16:15 97.7 F 99 16 143/70 97 08/13/16 11:18 97.5 F L 98 16 125/74 97 08/13/16 08:00 96 08/13/16 07:11 98.5 F 112 18 173/93 96 08/13/16 05:27 98.4 F 97 20 139/81 91 L 08/13/16 01:06 97.5 F L 106 20 174/94 95 08/12/16 21:35 97.8 F 101 16 144/83 08/12/16 16:00 98.0 F 98 18 136/73 96 08/12/16 11:20 97.3 F L 110 18 136/75 95 08/12/16 07:43 98.2 F 99 18 127/77 95 08/12/16 05:17 98.1 F 93 18 126/72 95 08/12/16 00:07 97.6 F 103 18 123/72 95 08/11/16 21:56 97.8 F 97 16 120/74 94 L 08/11/16 15:56 16 99 08/11/16 15:43 98.0 F 88 18 101/65 93 L 08/11/16 11:55 98.4 F 88 17 91/57 92 L 08/11/16 10:54 20 96 08/11/16 08:01 98.1 F 82 20 88/64 96 08/11/16 04:50 24 92 L 08/11/16 04:33 98.2 F 80 22 87/52 97 08/11/16 02:52 98.6 F 76 20 99/62 97 08/11/16 01:30 99.4 F 80 22 86/52 97 08/11/16 00:49 18 112/75 08/10/16 23:30 87 16 122/60 97 08/10/16 22:00 89 16 109/54 97 08/10/16 21:30 85 16 109/57 97 08/10/16 21:04 83 16 112/64 97 08/10/16 20:04 98.6 F 101 16 109/53 96 Laboratory Results 03/06/17 03/06/17 03/06/17 Range/Units 20:16 21:09 21:09 WBC 5.7 (4.3-11.1) K/mcL RBC 3.66 L (4.19-5.50) M/mcL Hgb 9.1 L (12.9-16.9) g/dL Hct 28.4 L (37.5-50.1) % MCV 77.6 L (83.0-100.0) fL MCH 24.9 L (28.0-33.3) pg MCHC 32.0 (31.6-35.5) g/dL RDW 15.9 H (11.5-14.5) % Plt Count 100 L (140-400) K/mcL MPV 11.0 (9.4-12.4) fL Reticulocyte # (0.05-0.10) M/mcL Immature Gran % 0.4 (0-4) % Seg Neutrophils % 59.8 % Lymphocytes % 25.0 % Monocytes % 12.3 % Eosinophils % 2.1 % Basophils % 0.4 % Neutrophils # 3.4 (1.6-8.9) K/mcL Lymphocytes # 1.4 (0.6-4.6) K/mcL Monocytes # 0.7 (0.0-1.3) K/mcL Eosinophils # 0.1 (0.0-0.6) K/mcL Basophils # 0.0 (0.0-0.2) K/mcL Nucleated RBCs/100 WBC (0) /100 WBC Reactive Lymphocytes (Not Present) Platelet Estimate (Normal) Immature Plt Fraction (1.1-6.1) % Polychromasia (Not Present) Anisocytosis (Not Present) Microcytosis (Not Present) Percent Retic (1.6-2.8) % Immature Retic Fraction (11.0-38.0) % Retic Hgb Equivalent (28.61-36.33) pg PT 17.2 H (9.4-12.1) Seconds INR 1.6 APTT 36.0 (26.0-36.0) Seconds VBG pH (7.32-7.42) pH Units VBG pCO2 (41-51) mmHg VBG pO2 (25-40) mmHg VBG HCO3 (21-27) mEq/L Sodium (136-145) mEq/L Potassium (3.5-4.5) mEq/L Chloride (98-109) mEq/L Carbon Dioxide (19-29) mEq/L BUN (8-26) mg/dL Creatinine (0.72-1.25) mg/dL Est GFR ( Amer) (> 60) Est GFR (Non-Af Amer) (> 60) BUN/Creatinine Ratio (6-26) Glucose (70-99) mg/dL POC Glucose 296 H (58-89) Est Mean Plasma Glucose mg/dl Hemoglobin A1c ( - 5.6) % Serum Osmolality (280-300) mOsm/kg Calculated Osmolality (280-300) Lactic Acid (0.5-2.2) mmol/L Uric Acid (3.5-7.2) mg/dL Calcium (8.6-10.8) mg/dL Ionized Calcium (1.15-1.35) mmol/L Phosphorus (2.3-4.7) mg/dL Magnesium (1.6-2.6) mg/dL Iron (65-175) mcg/dL % Saturation (20-55) % Transferrin (174-364) mg/dL Ferritin (22-275) ng/ml Total Bilirubin (0.2-1.2) mg/dL Direct Bilirubin (0.0-0.5) mg/dL Indirect Bilirubin (0.0-1.2) mg/dL AST (5-34) Units/L ALT (0-55) Units/L Alkaline Phosphatase (38-126) Units/L Ammonia (18-72) mcmol/L Lactate Dehydrogenase (159-327) Units/L Creatine Kinase (30-200) Units/L Troponin I (0-0.03) ng/mL Prot Electrophor EER Serum Total Protein (6.0-8.3) g/dL Total Protein (PEP) (6.00-8.30) g/dL Albumin (3.5-5.0) g/dL Albumin (PEP) (3.75-5.01) g/dL Globulin (2.4-3.5) g/dL Albumin/Globulin Ratio (1.1-2.2) Ujetz-3-Jptxulxrl (0.19-0.46) g/dL Hpgub-8-Vlqxesvwg (0.48-1.05) g/dL Beta Globulins (0.48-1.10) g/dL Gamma Globulins (0.62-1.51) g/dL PEP Interpretation Triglycerides (< 150) mg/dL Cholesterol (< 200) mg/dL LDL Cholesterol, Calc (0-99) mg/dL VLDL Cholesterol, Calc (< 31) mg/dL HDL Cholesterol (40-59) mg/dL Cholesterol/HDL Ratio (0-4.9) Amylase (25-125) Units/L Lipase (8-78) Units/L Vitamin B12 (213-816) pg/mL Folate (7.0-31.4) ng/mL Procalcitonin (<=0.10) ng/mL TSH (0.350-4.840) mcIU/mL Random Cortisol mcg/dl Serum Immunofix Reflex Urine Color (Yellow) Urine Clarity (Clear) Urine pH (5.0-8.0) pH Units Ur Specific [place] (1.010-1.025) Urine Protein (Neg-Trace) mg/dL Urine Glucose (UA) (Normal) mg/dL Urine Ketones (Negative) mg/dL Urine Blood (Negative) Urine Nitrite (Negative) Urine Bilirubin (Negative) Urine Urobilinogen (Normal) mg/dL Ur Leukocyte Esterase (Negative) Urine Microscopic RBC (0-3) per hpf Urine Microscopic WBC (0-3) per hpf Ur Eosinophil Smear (None Seen) % Ur Squamous Epith Cells (None-Few) per lpf Urine Bacteria (None-Few) per hpf Hyaline Casts (None-Few) per lpf Ur Culture Indicated? (NO) Urine Osmolality (300-1090) mOsm/kg Urine Creatinine mg/dL Urine Microalbumin mg/L Microalb/Creat Ratio (0-30) Protein/Creatinin Ratio (0-0.20) mg/mg Urine Sodium mEq/L Urine Urea Nitrogen mg/dL Urine Total Protein (1-14) mg/dL Stool Occult Blood (Negative) Urine Opiates Screen (Tcmuoe=819) ng/mL Ur Barbiturates Screen (Slpyzd=338) ng/mL Ur Phencyclidine Scrn (Cutoff=25) ng/mL Ur Amphetamines Screen (Nqjbdt=4727) ng/mL U Benzodiazepines Scrn (Tuivql=598) ng/mL Urine Cocaine Screen (Cutoff= 300) ng/mL U Marijuana (THC) Screen (Cutoff = 50) ng/mL IgG (768-1632) mg/dL IgA (68-408) mg/dL IgM (35-263) mg/dL F-Actin IgG Antibody (0-19) Units Smooth Muscle Ab Titer (<1:20) Complement C3 (88-201) mg/dL Complement C4 (10-40) mg/dL Free [place] LC, Quant (0.33-1.94) mg/dL Free Lambda LC, Quant (0.57-2.63) mg/dL Free [place]/Lambda Ratio (0.26-1.65) Hepatitis A IgM Ab (Nonreactive) Hep Bs Antigen (Nonreactive) Hep B Core IgM Ab (Nonreactive) Hepatitis C Ab Screen (Nonreactive) Anti-Streptolysin O Ab (0-330) IU/mL Specimen Rejected Blood Type Antibody Screen Crossmatch 08/10/16 08/10/16 08/10/16 Range/Units 21:09 21:09 21:20 WBC (4.3-11.1) K/mcL RBC (4.19-5.50) M/mcL Hgb (12.9-16.9) g/dL Hct (37.5-50.1) % MCV (83.0-100.0) fL MCH (28.0-33.3) pg MCHC (31.6-35.5) g/dL RDW (11.5-14.5) % Plt Count (140-400) K/mcL MPV (9.4-12.4) fL Reticulocyte # (0.05-0.10) M/mcL Immature Gran % (0-4) % Seg Neutrophils % % Lymphocytes % % Monocytes % % Eosinophils % % Basophils % % Neutrophils # (1.6-8.9) K/mcL Lymphocytes # (0.6-4.6) K/mcL Monocytes # (0.0-1.3) K/mcL Eosinophils # (0.0-0.6) K/mcL Basophils # (0.0-0.2) K/mcL Nucleated RBCs/100 WBC (0) /100 WBC Reactive Lymphocytes (Not Present) Platelet Estimate (Normal) Immature Plt Fraction (1.1-6.1) % Polychromasia (Not Present) Anisocytosis (Not Present) Microcytosis (Not Present) Percent Retic (1.6-2.8) % Immature Retic Fraction (11.0-38.0) % Retic Hgb Equivalent (28.61-36.33) pg PT (9.4-12.1) Seconds INR APTT (26.0-36.0) Seconds VBG pH (7.32-7.42) pH Units VBG pCO2 (41-51) mmHg VBG pO2 (25-40) mmHg VBG HCO3 (21-27) mEq/L Sodium 125 L (136-145) mEq/L Potassium 5.7 H (3.5-4.5) mEq/L Chloride 92 L (98-109) mEq/L Carbon Dioxide 22 (19-29) mEq/L BUN 56 H (8-26) mg/dL Creatinine 2.29 H (0.72-1.25) mg/dL Est GFR ( Amer) 35 L (> 60) Est GFR (Non-Af Amer) 29 L (> 60) BUN/Creatinine Ratio 24 (6-26) Glucose 331 H (70-99) mg/dL POC Glucose (58-89) Est Mean Plasma Glucose mg/dl Hemoglobin A1c ( - 5.6) % Serum Osmolality (280-300) mOsm/kg Calculated Osmolality 288 (280-300) Lactic Acid 3.1 H (0.5-2.2) mmol/L Uric Acid (3.5-7.2) mg/dL Calcium 9.2 (8.6-10.8) mg/dL Ionized Calcium (1.15-1.35) mmol/L Phosphorus (2.3-4.7) mg/dL Magnesium (1.6-2.6) mg/dL Iron (65-175) mcg/dL % Saturation (20-55) % Transferrin (174-364) mg/dL Ferritin (22-275) ng/ml Total Bilirubin 0.4 (0.2-1.2) mg/dL Direct Bilirubin 0.2 (0.0-0.5) mg/dL Indirect Bilirubin 0.2 (0.0-1.2) mg/dL AST 35 H (5-34) Units/L ALT 37 (0-55) Units/L Alkaline Phosphatase 140 H (38-126) Units/L Ammonia (18-72) mcmol/L Lactate Dehydrogenase (159-327) Units/L Creatine Kinase (30-200) Units/L Troponin I (0-0.03) ng/mL Prot Electrophor EER Serum Total Protein 8.3 (6.0-8.3) g/dL Total Protein (PEP) (6.00-8.30) g/dL Albumin 3.3 L (3.5-5.0) g/dL Albumin (PEP) (3.75-5.01) g/dL Globulin 5.0 H (2.4-3.5) g/dL Albumin/Globulin Ratio 0.7 L (1.1-2.2) Hgxxz-0-Bfolfapdk (0.19-0.46) g/dL Egtpz-5-Hunfknfrk (0.48-1.05) g/dL Beta Globulins (0.48-1.10) g/dL Gamma Globulins (0.62-1.51) g/dL PEP Interpretation Triglycerides (< 150) mg/dL Cholesterol (< 200) mg/dL LDL Cholesterol, Calc (0-99) mg/dL VLDL Cholesterol, Calc (< 31) mg/dL HDL Cholesterol (40-59) mg/dL Cholesterol/HDL Ratio (0-4.9) Amylase (25-125) Units/L Lipase 62 (8-78) Units/L Vitamin B12 (213-816) pg/mL Folate (7.0-31.4) ng/mL Procalcitonin (<=0.10) ng/mL TSH (0.350-4.840) mcIU/mL Random Cortisol mcg/dl Serum Immunofix Reflex Urine Color (Yellow) Urine Clarity (Clear) Urine pH (5.0-8.0) pH Units Ur Specific [place] (1.010-1.025) Urine Protein (Neg-Trace) mg/dL Urine Glucose (UA) (Normal) mg/dL Urine Ketones (Negative) mg/dL Urine Blood (Negative) Urine Nitrite (Negative) Urine Bilirubin (Negative) Urine Urobilinogen (Normal) mg/dL Ur Leukocyte Esterase (Negative) Urine Microscopic RBC (0-3) per hpf Urine Microscopic WBC (0-3) per hpf Ur Eosinophil Smear (None Seen) % Ur Squamous Epith Cells (None-Few) per lpf Urine Bacteria (None-Few) per hpf Hyaline Casts (None-Few) per lpf Ur Culture Indicated? (NO) Urine Osmolality (300-1090) mOsm/kg Urine Creatinine mg/dL Urine Microalbumin mg/L Microalb/Creat Ratio (0-30) Protein/Creatinin Ratio (0-0.20) mg/mg Urine Sodium mEq/L Urine Urea Nitrogen mg/dL Urine Total Protein (1-14) mg/dL Stool Occult Blood Negative (Negative) Urine Opiates Screen (Jmvigh=768) ng/mL Ur Barbiturates Screen (Fevkyd=070) ng/mL Ur Phencyclidine Scrn (Cutoff=25) ng/mL Ur Amphetamines Screen (Qjjdyh=5740) ng/mL U Benzodiazepines Scrn (Jzpoql=264) ng/mL Urine Cocaine Screen (Cutoff= 300) ng/mL U Marijuana (THC) Screen (Cutoff = 50) ng/mL IgG (768-1632) mg/dL IgA (68-408) mg/dL IgM (35-263) mg/dL F-Actin IgG Antibody (0-19) Units Smooth Muscle Ab Titer (<1:20) Complement C3 (88-201) mg/dL Complement C4 (10-40) mg/dL Free [place] LC, Quant (0.33-1.94) mg/dL Free [place] LC, Quant (0.57-2.63) mg/dL Free [place]/Lambda Ratio (0.26-1.65) Hepatitis A IgM Ab (Nonreactive) Hep Bs Antigen (Nonreactive) Hep B Core IgM Ab (Nonreactive) Hepatitis C Ab Screen (Nonreactive) Anti-Streptolysin O Ab (0-330) IU/mL Specimen Rejected Blood Type Antibody Screen Crossmatch 08/10/16 08/11/16 08/11/16 Range/Units 23:09 00:48 00:48 WBC (4.3-11.1) K/mcL RBC (4.19-5.50) M/mcL Hgb (12.9-16.9) g/dL Hct (37.5-50.1) % MCV (83.0-100.0) fL MCH (28.0-33.3) pg MCHC (31.6-35.5) g/dL RDW (11.5-14.5) % Plt Count (140-400) K/mcL MPV (9.4-12.4) fL Reticulocyte # (0.05-0.10) M/mcL Immature Gran % (0-4) % Seg Neutrophils % % Lymphocytes % % Monocytes % % Eosinophils % % Basophils % % Neutrophils # (1.6-8.9) K/mcL Lymphocytes # (0.6-4.6) K/mcL Monocytes # (0.0-1.3) K/mcL Eosinophils # (0.0-0.6) K/mcL Basophils # (0.0-0.2) K/mcL Nucleated RBCs/100 WBC (0) /100 WBC Reactive Lymphocytes (Not Present) Platelet Estimate (Normal) Immature Plt Fraction (1.1-6.1) % Polychromasia (Not Present) Anisocytosis (Not Present) Microcytosis (Not Present) Percent Retic (1.6-2.8) % Immature Retic Fraction (11.0-38.0) % Retic Hgb Equivalent (28.61-36.33) pg PT (9.4-12.1) Seconds INR APTT (26.0-36.0) Seconds VBG pH (7.32-7.42) pH Units VBG pCO2 (41-51) mmHg VBG pO2 (25-40) mmHg VBG HCO3 (21-27) mEq/L Sodium (136-145) mEq/L Potassium (3.5-4.5) mEq/L Chloride (98-109) mEq/L Carbon Dioxide (19-29) mEq/L BUN (8-26) mg/dL Creatinine (0.72-1.25) mg/dL Est GFR ( Amer) (> 60) Est GFR (Non-Af Amer) (> 60) BUN/Creatinine Ratio (6-26) Glucose (70-99) mg/dL POC Glucose (58-89) Est Mean Plasma Glucose mg/dl Hemoglobin A1c ( - 5.6) % Serum Osmolality (280-300) mOsm/kg Calculated Osmolality (280-300) Lactic Acid (0.5-2.2) mmol/L Uric Acid (3.5-7.2) mg/dL Calcium (8.6-10.8) mg/dL Ionized Calcium (1.15-1.35) mmol/L Phosphorus 4.4 (2.3-4.7) mg/dL Magnesium 1.6 (1.6-2.6) mg/dL Iron (65-175) mcg/dL % Saturation (20-55) % Transferrin (174-364) mg/dL Ferritin (22-275) ng/ml Total Bilirubin (0.2-1.2) mg/dL Direct Bilirubin (0.0-0.5) mg/dL Indirect Bilirubin (0.0-1.2) mg/dL AST (5-34) Units/L ALT (0-55) Units/L Alkaline Phosphatase (38-126) Units/L Ammonia 89 H (18-72) mcmol/L Lactate Dehydrogenase (159-327) Units/L Creatine Kinase (30-200) Units/L Troponin I 0.00 (0-0.03) ng/mL Prot Electrophor EER Serum Total Protein (6.0-8.3) g/dL Total Protein (PEP) (6.00-8.30) g/dL Albumin (3.5-5.0) g/dL Albumin (PEP) (3.75-5.01) g/dL Globulin (2.4-3.5) g/dL Albumin/Globulin Ratio (1.1-2.2) Vfyoy-3-Yhrlmiyhr (0.19-0.46) g/dL Iqknk-6-Rjibzrtjy (0.48-1.05) g/dL Beta Globulins (0.48-1.10) g/dL Gamma Globulins (0.62-1.51) g/dL PEP Interpretation Triglycerides 160 H (< 150) mg/dL Cholesterol 84 (< 200) mg/dL LDL Cholesterol, Calc 28 (0-99) mg/dL VLDL Cholesterol, Calc 32 H (< 31) mg/dL HDL Cholesterol 24 L (40-59) mg/dL Cholesterol/HDL Ratio 3.5 (0-4.9) Amylase 56 (25-125) Units/L Lipase (8-78) Units/L Vitamin B12 (213-816) pg/mL Folate (7.0-31.4) ng/mL Procalcitonin (<=0.10) ng/mL TSH (0.350-4.840) mcIU/mL Random Cortisol mcg/dl Serum Immunofix Reflex Urine Color (Yellow) Urine Clarity (Clear) Urine pH (5.0-8.0) pH Units Ur Specific [place] (1.010-1.025) Urine Protein (Neg-Trace) mg/dL Urine Glucose (UA) (Normal) mg/dL Urine Ketones (Negative) mg/dL Urine Blood (Negative) Urine Nitrite (Negative) Urine Bilirubin (Negative) Urine Urobilinogen (Normal) mg/dL Ur Leukocyte Esterase (Negative) Urine Microscopic RBC (0-3) per hpf Urine Microscopic WBC (0-3) per hpf Ur Eosinophil Smear (None Seen) % Ur Squamous Epith Cells (None-Few) per lpf Urine Bacteria (None-Few) per hpf Hyaline Casts (None-Few) per lpf Ur Culture Indicated? (NO) Urine Osmolality (300-1090) mOsm/kg Urine Creatinine mg/dL Urine Microalbumin mg/L Microalb/Creat Ratio (0-30) Protein/Creatinin Ratio (0-0.20) mg/mg Urine Sodium mEq/L Urine Urea Nitrogen mg/dL Urine Total Protein (1-14) mg/dL Stool Occult Blood (Negative) Urine Opiates Screen (Uebqls=054) ng/mL Ur Barbiturates Screen (Yiprpn=668) ng/mL Ur Phencyclidine Scrn (Cutoff=25) ng/mL Ur Amphetamines Screen (Clzugs=5447) ng/mL U Benzodiazepines Scrn (Icaeih=600) ng/mL Urine Cocaine Screen (Cutoff= 300) ng/mL U Marijuana (THC) Screen (Cutoff = 50) ng/mL IgG (768-1632) mg/dL IgA (68-408) mg/dL IgM (35-263) mg/dL F-Actin IgG Antibody (0-19) Units Smooth Muscle Ab Titer (<1:20) Complement C3 (88-201) mg/dL Complement C4 (10-40) mg/dL Free [place] LC, Quant (0.33-1.94) mg/dL Free [place] LC, Quant (0.57-2.63) mg/dL Free [place]/Lambda Ratio (0.26-1.65) Hepatitis A IgM Ab (Nonreactive) Hep Bs Antigen (Nonreactive) Hep B Core IgM Ab (Nonreactive) Hepatitis C Ab Screen (Nonreactive) Anti-Streptolysin O Ab (0-330) IU/mL Specimen Rejected Blood Type Antibody Screen Crossmatch 08/11/16 08/11/16 08/11/16 Range/Units 00:48 00:48 01:32 WBC (4.3-11.1) K/mcL RBC (4.19-5.50) M/mcL Hgb (12.9-16.9) g/dL Hct (37.5-50.1) % MCV (83.0-100.0) fL MCH (28.0-33.3) pg MCHC (31.6-35.5) g/dL RDW (11.5-14.5) % Plt Count (140-400) K/mcL MPV (9.4-12.4) fL Reticulocyte # (0.05-0.10) M/mcL Immature Gran % (0-4) % Seg Neutrophils % % Lymphocytes % % Monocytes % % Eosinophils % % Basophils % % Neutrophils # (1.6-8.9) K/mcL Lymphocytes # (0.6-4.6) K/mcL Monocytes # (0.0-1.3) K/mcL Eosinophils # (0.0-0.6) K/mcL Basophils # (0.0-0.2) K/mcL Nucleated RBCs/100 WBC (0) /100 WBC Reactive Lymphocytes (Not Present) Platelet Estimate (Normal) Immature Plt Fraction (1.1-6.1) % Polychromasia (Not Present) Anisocytosis (Not Present) Microcytosis (Not Present) Percent Retic (1.6-2.8) % Immature Retic Fraction (11.0-38.0) % Retic Hgb Equivalent (28.61-36.33) pg PT (9.4-12.1) Seconds INR APTT (26.0-36.0) Seconds VBG pH (7.32-7.42) pH Units VBG pCO2 (41-51) mmHg VBG pO2 (25-40) mmHg VBG HCO3 (21-27) mEq/L Sodium (136-145) mEq/L Potassium (3.5-4.5) mEq/L Chloride (98-109) mEq/L Carbon Dioxide (19-29) mEq/L BUN (8-26) mg/dL Creatinine (0.72-1.25) mg/dL Est GFR ( Amer) (> 60) Est GFR (Non-Af Amer) (> 60) BUN/Creatinine Ratio (6-26) Glucose (70-99) mg/dL POC Glucose 372 H (58-89) Est Mean Plasma Glucose 255 mg/dl Hemoglobin A1c 10.5 H ( - 5.6) % Serum Osmolality (280-300) mOsm/kg Calculated Osmolality (280-300) Lactic Acid (0.5-2.2) mmol/L Uric Acid (3.5-7.2) mg/dL Calcium (8.6-10.8) mg/dL Ionized Calcium (1.15-1.35) mmol/L Phosphorus (2.3-4.7) mg/dL Magnesium (1.6-2.6) mg/dL Iron (65-175) mcg/dL % Saturation (20-55) % Transferrin (174-364) mg/dL Ferritin (22-275) ng/ml Total Bilirubin (0.2-1.2) mg/dL Direct Bilirubin (0.0-0.5) mg/dL Indirect Bilirubin (0.0-1.2) mg/dL AST (5-34) Units/L ALT (0-55) Units/L Alkaline Phosphatase (38-126) Units/L Ammonia (18-72) mcmol/L Lactate Dehydrogenase (159-327) Units/L Creatine Kinase (30-200) Units/L Troponin I (0-0.03) ng/mL Prot Electrophor EER Serum Total Protein (6.0-8.3) g/dL Total Protein (PEP) (6.00-8.30) g/dL Albumin (3.5-5.0) g/dL Albumin (PEP) (3.75-5.01) g/dL Globulin (2.4-3.5) g/dL Albumin/Globulin Ratio (1.1-2.2) Mdomj-0-Zqfkadkcf (0.19-0.46) g/dL Fqtar-1-Cnbwxtzdj (0.48-1.05) g/dL Beta Globulins (0.48-1.10) g/dL Gamma Globulins (0.62-1.51) g/dL PEP Interpretation Triglycerides (< 150) mg/dL Cholesterol (< 200) mg/dL LDL Cholesterol, Calc (0-99) mg/dL VLDL Cholesterol, Calc (< 31) mg/dL HDL Cholesterol (40-59) mg/dL Cholesterol/HDL Ratio (0-4.9) Amylase (25-125) Units/L Lipase (8-78) Units/L Vitamin B12 (213-816) pg/mL Folate (7.0-31.4) ng/mL Procalcitonin (<=0.10) ng/mL TSH (0.350-4.840) mcIU/mL Random Cortisol mcg/dl Serum Immunofix Reflex Urine Color (Yellow) Urine Clarity (Clear) Urine pH (5.0-8.0) pH Units Ur Specific [place] (1.010-1.025) Urine Protein (Neg-Trace) mg/dL Urine Glucose (UA) (Normal) mg/dL Urine Ketones (Negative) mg/dL Urine Blood (Negative) Urine Nitrite (Negative) Urine Bilirubin (Negative) Urine Urobilinogen (Normal) mg/dL Ur Leukocyte Esterase (Negative) Urine Microscopic RBC (0-3) per hpf Urine Microscopic WBC (0-3) per hpf Ur Eosinophil Smear (None Seen) % Ur Squamous Epith Cells (None-Few) per lpf Urine Bacteria (None-Few) per hpf Hyaline Casts (None-Few) per lpf Ur Culture Indicated? (NO) Urine Osmolality (300-1090) mOsm/kg Urine Creatinine mg/dL Urine Microalbumin mg/L Microalb/Creat Ratio (0-30) Protein/Creatinin Ratio (0-0.20) mg/mg Urine Sodium mEq/L Urine Urea Nitrogen mg/dL Urine Total Protein (1-14) mg/dL Stool Occult Blood (Negative) Urine Opiates Screen (Kuzrcy=618) ng/mL Ur Barbiturates Screen (Fvehhw=502) ng/mL Ur Phencyclidine Scrn (Cutoff=25) ng/mL Ur Amphetamines Screen (Ttzfhq=0683) ng/mL U Benzodiazepines Scrn (Gmarwd=639) ng/mL Urine Cocaine Screen (Cutoff= 300) ng/mL U Marijuana (THC) Screen (Cutoff = 50) ng/mL IgG (768-1632) mg/dL IgA (68-408) mg/dL IgM (35-263) mg/dL F-Actin IgG Antibody (0-19) Units Smooth Muscle Ab Titer (<1:20) Complement C3 (88-201) mg/dL Complement C4 (10-40) mg/dL Free [place] LC, Quant (0.33-1.94) mg/dL Free [place] LC, Quant (0.57-2.63) mg/dL Free [place]/Lambda Ratio (0.26-1.65) Hepatitis A IgM Ab (Nonreactive) Hep Bs Antigen (Nonreactive) Hep B Core IgM Ab (Nonreactive) Hepatitis C Ab Screen (Nonreactive) Anti-Streptolysin O Ab (0-330) IU/mL Specimen Rejected Blood Type A NEGATIVE Antibody Screen NEGATIVE Crossmatch See Detail 08/11/16 08/11/16 08/11/16 Range/Units 07:28 07:28 07:53 WBC (4.3-11.1) K/mcL RBC (4.19-5.50) M/mcL Hgb 8.4 L (12.9-16.9) g/dL Hct 26.2 L (37.5-50.1) % MCV (83.0-100.0) fL MCH (28.0-33.3) pg MCHC (31.6-35.5) g/dL RDW (11.5-14.5) % Plt Count (140-400) K/mcL MPV (9.4-12.4) fL Reticulocyte # (0.05-0.10) M/mcL Immature Gran % (0-4) % Seg Neutrophils % % Lymphocytes % % Monocytes % % Eosinophils % % Basophils % % Neutrophils # (1.6-8.9) K/mcL Lymphocytes # (0.6-4.6) K/mcL Monocytes # (0.0-1.3) K/mcL Eosinophils # (0.0-0.6) K/mcL Basophils # (0.0-0.2) K/mcL Nucleated RBCs/100 WBC (0) /100 WBC Reactive Lymphocytes (Not Present) Platelet Estimate (Normal) Immature Plt Fraction (1.1-6.1) % Polychromasia (Not Present) Anisocytosis (Not Present) Microcytosis (Not Present) Percent Retic (1.6-2.8) % Immature Retic Fraction (11.0-38.0) % Retic Hgb Equivalent (28.61-36.33) pg PT (9.4-12.1) Seconds INR APTT (26.0-36.0) Seconds VBG pH (7.32-7.42) pH Units VBG pCO2 (41-51) mmHg VBG pO2 (25-40) mmHg VBG HCO3 (21-27) mEq/L Sodium (136-145) mEq/L Potassium (3.5-4.5) mEq/L Chloride (98-109) mEq/L Carbon Dioxide (19-29) mEq/L BUN (8-26) mg/dL Creatinine (0.72-1.25) mg/dL Est GFR ( Amer) (> 60) Est GFR (Non-Af Amer) (> 60) BUN/Creatinine Ratio (6-26) Glucose (70-99) mg/dL POC Glucose 318 H (58-89) Est Mean Plasma Glucose mg/dl Hemoglobin A1c ( - 5.6) % Serum Osmolality (280-300) mOsm/kg Calculated Osmolality (280-300) Lactic Acid (0.5-2.2) mmol/L Uric Acid (3.5-7.2) mg/dL Calcium (8.6-10.8) mg/dL Ionized Calcium (1.15-1.35) mmol/L Phosphorus (2.3-4.7) mg/dL Magnesium (1.6-2.6) mg/dL Iron (65-175) mcg/dL % Saturation (20-55) % Transferrin (174-364) mg/dL Ferritin (22-275) ng/ml Total Bilirubin (0.2-1.2) mg/dL Direct Bilirubin (0.0-0.5) mg/dL Indirect Bilirubin (0.0-1.2) mg/dL AST (5-34) Units/L ALT (0-55) Units/L Alkaline Phosphatase (38-126) Units/L Ammonia (18-72) mcmol/L Lactate Dehydrogenase (159-327) Units/L Creatine Kinase (30-200) Units/L Troponin I 0.00 (0-0.03) ng/mL Prot Electrophor EER Serum Total Protein (6.0-8.3) g/dL Total Protein (PEP) (6.00-8.30) g/dL Albumin (3.5-5.0) g/dL Albumin (PEP) (3.75-5.01) g/dL Globulin (2.4-3.5) g/dL Albumin/Globulin Ratio (1.1-2.2) Rqyyc-0-Znzpjvile (0.19-0.46) g/dL Vyvil-8-Tibnllwue (0.48-1.05) g/dL Beta Globulins (0.48-1.10) g/dL Gamma Globulins (0.62-1.51) g/dL PEP Interpretation Triglycerides (< 150) mg/dL Cholesterol (< 200) mg/dL LDL Cholesterol, Calc (0-99) mg/dL VLDL Cholesterol, Calc (< 31) mg/dL HDL Cholesterol (40-59) mg/dL Cholesterol/HDL Ratio (0-4.9) Amylase (25-125) Units/L Lipase (8-78) Units/L Vitamin B12 (213-816) pg/mL Folate (7.0-31.4) ng/mL Procalcitonin (<=0.10) ng/mL TSH (0.350-4.840) mcIU/mL Random Cortisol mcg/dl Serum Immunofix Reflex Urine Color (Yellow) Urine Clarity (Clear) Urine pH (5.0-8.0) pH Units Ur Specific [place] (1.010-1.025) Urine Protein (Neg-Trace) mg/dL Urine Glucose (UA) (Normal) mg/dL Urine Ketones (Negative) mg/dL Urine Blood (Negative) Urine Nitrite (Negative) Urine Bilirubin (Negative) Urine Urobilinogen (Normal) mg/dL Ur Leukocyte Esterase (Negative) Urine Microscopic RBC (0-3) per hpf Urine Microscopic WBC (0-3) per hpf Ur Eosinophil Smear (None Seen) % Ur Squamous Epith Cells (None-Few) per lpf Urine Bacteria (None-Few) per hpf Hyaline Casts (None-Few) per lpf Ur Culture Indicated? (NO) Urine Osmolality (300-1090) mOsm/kg Urine Creatinine mg/dL Urine Microalbumin mg/L Microalb/Creat Ratio (0-30) Protein/Creatinin Ratio (0-0.20) mg/mg Urine Sodium mEq/L Urine Urea Nitrogen mg/dL Urine Total Protein (1-14) mg/dL Stool Occult Blood (Negative) Urine Opiates Screen (Zflmhe=707) ng/mL Ur Barbiturates Screen (Xypjla=393) ng/mL Ur Phencyclidine Scrn (Cutoff=25) ng/mL Ur Amphetamines Screen (Lbtbfe=2181) ng/mL U Benzodiazepines Scrn (Vnegvd=229) ng/mL Urine Cocaine Screen (Cutoff= 300) ng/mL U Marijuana (THC) Screen (Cutoff = 50) ng/mL IgG (768-1632) mg/dL IgA (68-408) mg/dL IgM (35-263) mg/dL F-Actin IgG Antibody (0-19) Units Smooth Muscle Ab Titer (<1:20) Complement C3 (88-201) mg/dL Complement C4 (10-40) mg/dL Free [place] LC, Quant (0.33-1.94) mg/dL Free [place] LC, Quant (0.57-2.63) mg/dL Free [place]/Lambda Ratio (0.26-1.65) Hepatitis A IgM Ab (Nonreactive) Hep Bs Antigen (Nonreactive) Hep B Core IgM Ab (Nonreactive) Hepatitis C Ab Screen (Nonreactive) Anti-Streptolysin O Ab (0-330) IU/mL Specimen Rejected Blood Type Antibody Screen Crossmatch 08/11/16 08/11/16 08/11/16 Range/Units 08:50 08:50 08:50 WBC (4.3-11.1) K/mcL RBC (4.19-5.50) M/mcL Hgb (12.9-16.9) g/dL Hct (37.5-50.1) % MCV (83.0-100.0) fL MCH (28.0-33.3) pg MCHC (31.6-35.5) g/dL RDW (11.5-14.5) % Plt Count (140-400) K/mcL MPV (9.4-12.4) fL Reticulocyte # (0.05-0.10) M/mcL Immature Gran % (0-4) % Seg Neutrophils % % Lymphocytes % % Monocytes % % Eosinophils % % Basophils % % Neutrophils # (1.6-8.9) K/mcL Lymphocytes # (0.6-4.6) K/mcL Monocytes # (0.0-1.3) K/mcL Eosinophils # (0.0-0.6) K/mcL Basophils # (0.0-0.2) K/mcL Nucleated RBCs/100 WBC (0) /100 WBC Reactive Lymphocytes (Not Present) Platelet Estimate (Normal) Immature Plt Fraction (1.1-6.1) % Polychromasia (Not Present) Anisocytosis (Not Present) Microcytosis (Not Present) Percent Retic (1.6-2.8) % Immature Retic Fraction (11.0-38.0) % Retic Hgb Equivalent (28.61-36.33) pg PT (9.4-12.1) Seconds INR APTT (26.0-36.0) Seconds VBG pH (7.32-7.42) pH Units VBG pCO2 (41-51) mmHg VBG pO2 (25-40) mmHg VBG HCO3 (21-27) mEq/L Sodium (136-145) mEq/L Potassium (3.5-4.5) mEq/L Chloride (98-109) mEq/L Carbon Dioxide (19-29) mEq/L BUN (8-26) mg/dL Creatinine (0.72-1.25) mg/dL Est GFR ( Amer) (> 60) Est GFR (Non-Af Amer) (> 60) BUN/Creatinine Ratio (6-26) Glucose (70-99) mg/dL POC Glucose (58-89) Est Mean Plasma Glucose mg/dl Hemoglobin A1c ( - 5.6) % Serum Osmolality (280-300) mOsm/kg Calculated Osmolality (280-300) Lactic Acid (0.5-2.2) mmol/L Uric Acid (3.5-7.2) mg/dL Calcium (8.6-10.8) mg/dL Ionized Calcium (1.15-1.35) mmol/L Phosphorus (2.3-4.7) mg/dL Magnesium (1.6-2.6) mg/dL Iron (65-175) mcg/dL % Saturation (20-55) % Transferrin (174-364) mg/dL Ferritin (22-275) ng/ml Total Bilirubin (0.2-1.2) mg/dL Direct Bilirubin (0.0-0.5) mg/dL Indirect Bilirubin (0.0-1.2) mg/dL AST (5-34) Units/L ALT (0-55) Units/L Alkaline Phosphatase (38-126) Units/L Ammonia (18-72) mcmol/L Lactate Dehydrogenase (159-327) Units/L Creatine Kinase (30-200) Units/L Troponin I (0-0.03) ng/mL Prot Electrophor EER Serum Total Protein (6.0-8.3) g/dL Total Protein (PEP) (6.00-8.30) g/dL Albumin (3.5-5.0) g/dL Albumin (PEP) (3.75-5.01) g/dL Globulin (2.4-3.5) g/dL Albumin/Globulin Ratio (1.1-2.2) Rldjo-4-Offbrkhcw (0.19-0.46) g/dL Ewxud-5-Qkbtbgiyz (0.48-1.05) g/dL Beta Globulins (0.48-1.10) g/dL Gamma Globulins (0.62-1.51) g/dL PEP Interpretation Triglycerides (< 150) mg/dL Cholesterol (< 200) mg/dL LDL Cholesterol, Calc (0-99) mg/dL VLDL Cholesterol, Calc (< 31) mg/dL HDL Cholesterol (40-59) mg/dL Cholesterol/HDL Ratio (0-4.9) Amylase (25-125) Units/L Lipase (8-78) Units/L Vitamin B12 (213-816) pg/mL Folate (7.0-31.4) ng/mL Procalcitonin (<=0.10) ng/mL TSH (0.350-4.840) mcIU/mL Random Cortisol mcg/dl Serum Immunofix Reflex Urine Color Yellow (Yellow) Urine Clarity Cloudy A (Clear) Urine pH 5.5 (5.0-8.0) pH Units Ur Specific [place] 1.023 (1.010-1.025) Urine Protein Trace (Neg-Trace) mg/dL Urine Glucose (UA) 100 H (Normal) mg/dL Urine Ketones Trace H (Negative) mg/dL Urine Blood Negative (Negative) Urine Nitrite Negative (Negative) Urine Bilirubin Small H (Negative) Urine Urobilinogen Normal (Normal) mg/dL Ur Leukocyte Esterase Small H (Negative) Urine Microscopic RBC 3-5 H (0-3) per hpf Urine Microscopic WBC 3-5 H (0-3) per hpf Ur Eosinophil Smear 0 (None Seen) % Ur Squamous Epith Cells Many H (None-Few) per lpf Urine Bacteria None Seen (None-Few) per hpf Hyaline Casts Many H (None-Few) per lpf Ur Culture Indicated? YES A (NO) Urine Osmolality (300-1090) mOsm/kg Urine Creatinine mg/dL Urine Microalbumin mg/L Microalb/Creat Ratio (0-30) Protein/Creatinin Ratio (0-0.20) mg/mg Urine Sodium mEq/L Urine Urea Nitrogen mg/dL Urine Total Protein (1-14) mg/dL Stool Occult Blood (Negative) Urine Opiates Screen Positive H (Ndaahh=491) ng/mL Ur Barbiturates Screen Negative (Klwzuj=059) ng/mL Ur Phencyclidine Scrn Negative (Cutoff=25) ng/mL Ur Amphetamines Screen Negative (Yfxhgh=1815) ng/mL U Benzodiazepines Scrn Negative (Ynpzkc=203) ng/mL Urine Cocaine Screen Negative (Cutoff= 300) ng/mL U Marijuana (THC) Screen Negative (Cutoff = 50) ng/mL IgG (768-1632) mg/dL IgA (68-408) mg/dL IgM (35-263) mg/dL F-Actin IgG Antibody (0-19) Units Smooth Muscle Ab Titer (<1:20) Complement C3 (88-201) mg/dL Complement C4 (10-40) mg/dL Free [place] LC, Quant (0.33-1.94) mg/dL Free [place] LC, Quant (0.57-2.63) mg/dL Free [place]/Lambda Ratio (0.26-1.65) Hepatitis A IgM Ab (Nonreactive) Hep Bs Antigen (Nonreactive) Hep B Core IgM Ab (Nonreactive) Hepatitis C Ab Screen (Nonreactive) Anti-Streptolysin O Ab (0-330) IU/mL Specimen Rejected Blood Type Antibody Screen Crossmatch 08/11/16 08/11/16 08/11/16 Range/Units 08:50 09:26 09:26 WBC 4.7 (4.3-11.1) K/mcL RBC 3.28 L (4.19-5.50) M/mcL Hgb 8.1 L (12.9-16.9) g/dL Hct 25.9 L (37.5-50.1) % MCV 79.0 L (83.0-100.0) fL MCH 24.7 L (28.0-33.3) pg MCHC 31.3 L (31.6-35.5) g/dL RDW 15.9 H (11.5-14.5) % Plt Count 85 L (140-400) K/mcL MPV 11.7 (9.4-12.4) fL Reticulocyte # (0.05-0.10) M/mcL Immature Gran % 0.4 (0-4) % Seg Neutrophils % 51.6 % Lymphocytes % 32.8 % Monocytes % 11.6 % Eosinophils % 3.2 % Basophils % 0.4 % Neutrophils # 2.4 (1.6-8.9) K/mcL Lymphocytes # 1.5 (0.6-4.6) K/mcL Monocytes # 0.6 (0.0-1.3) K/mcL Eosinophils # 0.2 (0.0-0.6) K/mcL Basophils # 0.0 (0.0-0.2) K/mcL Nucleated RBCs/100 WBC (0) /100 WBC Reactive Lymphocytes (Not Present) Platelet Estimate (Normal) Immature Plt Fraction 6.3 H (1.1-6.1) % Polychromasia (Not Present) Anisocytosis (Not Present) Microcytosis (Not Present) Percent Retic (1.6-2.8) % Immature Retic Fraction (11.0-38.0) % Retic Hgb Equivalent (28.61-36.33) pg PT (9.4-12.1) Seconds INR APTT (26.0-36.0) Seconds VBG pH (7.32-7.42) pH Units VBG pCO2 (41-51) mmHg VBG pO2 (25-40) mmHg VBG HCO3 (21-27) mEq/L Sodium 126 L (136-145) mEq/L Potassium 5.4 H (3.5-4.5) mEq/L Chloride 97 L (98-109) mEq/L Carbon Dioxide 18 L (19-29) mEq/L BUN 62 H (8-26) mg/dL Creatinine 3.24 H (0.72-1.25) mg/dL Est GFR ( Amer) 23 L (> 60) Est GFR (Non-Af Amer) 19 L (> 60) BUN/Creatinine Ratio 19 (6-26) Glucose 339 H (70-99) mg/dL POC Glucose (58-89) Est Mean Plasma Glucose mg/dl Hemoglobin A1c ( - 5.6) % Serum Osmolality (280-300) mOsm/kg Calculated Osmolality 293 (280-300) Lactic Acid (0.5-2.2) mmol/L Uric Acid (3.5-7.2) mg/dL Calcium 7.9 L (8.6-10.8) mg/dL Ionized Calcium (1.15-1.35) mmol/L Phosphorus (2.3-4.7) mg/dL Magnesium (1.6-2.6) mg/dL Iron (65-175) mcg/dL % Saturation (20-55) % Transferrin (174-364) mg/dL Ferritin (22-275) ng/ml Total Bilirubin (0.2-1.2) mg/dL Direct Bilirubin (0.0-0.5) mg/dL Indirect Bilirubin (0.0-1.2) mg/dL AST (5-34) Units/L ALT (0-55) Units/L Alkaline Phosphatase (38-126) Units/L Ammonia (18-72) mcmol/L Lactate Dehydrogenase (159-327) Units/L Creatine Kinase (30-200) Units/L Troponin I (0-0.03) ng/mL Prot Electrophor EER Serum Total Protein (6.0-8.3) g/dL Total Protein (PEP) (6.00-8.30) g/dL Albumin (3.5-5.0) g/dL Albumin (PEP) (3.75-5.01) g/dL Globulin (2.4-3.5) g/dL Albumin/Globulin Ratio (1.1-2.2) Grzsx-8-Urogleomo (0.19-0.46) g/dL Flpwf-6-Gxwkqortt (0.48-1.05) g/dL Beta Globulins (0.48-1.10) g/dL Gamma Globulins (0.62-1.51) g/dL PEP Interpretation Triglycerides (< 150) mg/dL Cholesterol (< 200) mg/dL LDL Cholesterol, Calc (0-99) mg/dL VLDL Cholesterol, Calc (< 31) mg/dL HDL Cholesterol (40-59) mg/dL Cholesterol/HDL Ratio (0-4.9) Amylase (25-125) Units/L Lipase (8-78) Units/L Vitamin B12 (213-816) pg/mL Folate (7.0-31.4) ng/mL Procalcitonin (<=0.10) ng/mL TSH (0.350-4.840) mcIU/mL Random Cortisol mcg/dl Serum Immunofix Reflex Urine Color (Yellow) Urine Clarity (Clear) Urine pH (5.0-8.0) pH Units Ur Specific [place] (1.010-1.025) Urine Protein (Neg-Trace) mg/dL Urine Glucose (UA) (Normal) mg/dL Urine Ketones (Negative) mg/dL Urine Blood (Negative) Urine Nitrite (Negative) Urine Bilirubin (Negative) Urine Urobilinogen (Normal) mg/dL Ur Leukocyte Esterase (Negative) Urine Microscopic RBC (0-3) per hpf Urine Microscopic WBC (0-3) per hpf Ur Eosinophil Smear (None Seen) % Ur Squamous Epith Cells (None-Few) per lpf Urine Bacteria (None-Few) per hpf Hyaline Casts (None-Few) per lpf Ur Culture Indicated? (NO) Urine Osmolality (300-1090) mOsm/kg Urine Creatinine mg/dL Urine Microalbumin mg/L Microalb/Creat Ratio (0-30) Protein/Creatinin Ratio (0-0.20) mg/mg Urine Sodium 30.0 mEq/L Urine Urea Nitrogen 241 mg/dL Urine Total Protein (1-14) mg/dL Stool Occult Blood (Negative) Urine Opiates Screen (Etozst=624) ng/mL Ur Barbiturates Screen (Thbthh=736) ng/mL Ur Phencyclidine Scrn (Cutoff=25) ng/mL Ur Amphetamines Screen (Zsoyar=6344) ng/mL U Benzodiazepines Scrn (Bewjbp=888) ng/mL Urine Cocaine Screen (Cutoff= 300) ng/mL U Marijuana (THC) Screen (Cutoff = 50) ng/mL IgG (768-1632) mg/dL IgA (68-408) mg/dL IgM (35-263) mg/dL F-Actin IgG Antibody (0-19) Units Smooth Muscle Ab Titer (<1:20) Complement C3 (88-201) mg/dL Complement C4 (10-40) mg/dL Free [place] LC, Quant (0.33-1.94) mg/dL Free [place] LC, Quant (0.57-2.63) mg/dL Free [place]/Lambda Ratio (0.26-1.65) Hepatitis A IgM Ab (Nonreactive) Hep Bs Antigen (Nonreactive) Hep B Core IgM Ab (Nonreactive) Hepatitis C Ab Screen (Nonreactive) Anti-Streptolysin O Ab (0-330) IU/mL Specimen Rejected Blood Type Antibody Screen Crossmatch 08/11/16 08/11/16 08/11/16 Range/Units 09:26 09:26 10:49 WBC (4.3-11.1) K/mcL RBC (4.19-5.50) M/mcL Hgb (12.9-16.9) g/dL Hct (37.5-50.1) % MCV (83.0-100.0) fL MCH (28.0-33.3) pg MCHC (31.6-35.5) g/dL RDW (11.5-14.5) % Plt Count (140-400) K/mcL MPV (9.4-12.4) fL Reticulocyte # (0.05-0.10) M/mcL Immature Gran % (0-4) % Seg Neutrophils % % Lymphocytes % % Monocytes % % Eosinophils % % Basophils % % Neutrophils # (1.6-8.9) K/mcL Lymphocytes # (0.6-4.6) K/mcL Monocytes # (0.0-1.3) K/mcL Eosinophils # (0.0-0.6) K/mcL Basophils # (0.0-0.2) K/mcL Nucleated RBCs/100 WBC (0) /100 WBC Reactive Lymphocytes (Not Present) Platelet Estimate (Normal) Immature Plt Fraction (1.1-6.1) % Polychromasia (Not Present) Anisocytosis (Not Present) Microcytosis (Not Present) Percent Retic (1.6-2.8) % Immature Retic Fraction (11.0-38.0) % Retic Hgb Equivalent (28.61-36.33) pg PT (9.4-12.1) Seconds INR APTT (26.0-36.0) Seconds VBG pH (7.32-7.42) pH Units VBG pCO2 (41-51) mmHg VBG pO2 (25-40) mmHg VBG HCO3 (21-27) mEq/L Sodium (136-145) mEq/L Potassium (3.5-4.5) mEq/L Chloride (98-109) mEq/L Carbon Dioxide (19-29) mEq/L BUN (8-26) mg/dL Creatinine (0.72-1.25) mg/dL Est GFR ( Amer) (> 60) Est GFR (Non-Af Amer) (> 60) BUN/Creatinine Ratio (6-26) Glucose (70-99) mg/dL POC Glucose (58-89) Est Mean Plasma Glucose mg/dl Hemoglobin A1c ( - 5.6) % Serum Osmolality (280-300) mOsm/kg Calculated Osmolality (280-300) Lactic Acid 1.9 (0.5-2.2) mmol/L Uric Acid (3.5-7.2) mg/dL Calcium (8.6-10.8) mg/dL Ionized Calcium (1.15-1.35) mmol/L Phosphorus (2.3-4.7) mg/dL Magnesium (1.6-2.6) mg/dL Iron (65-175) mcg/dL % Saturation (20-55) % Transferrin (174-364) mg/dL Ferritin (22-275) ng/ml Total Bilirubin (0.2-1.2) mg/dL Direct Bilirubin (0.0-0.5) mg/dL Indirect Bilirubin (0.0-1.2) mg/dL AST (5-34) Units/L ALT (0-55) Units/L Alkaline Phosphatase (38-126) Units/L Ammonia (18-72) mcmol/L Lactate Dehydrogenase (159-327) Units/L Creatine Kinase 87 (30-200) Units/L Troponin I 0.00 (0-0.03) ng/mL Prot Electrophor EER Serum Total Protein (6.0-8.3) g/dL Total Protein (PEP) (6.00-8.30) g/dL Albumin (3.5-5.0) g/dL Albumin (PEP) (3.75-5.01) g/dL Globulin (2.4-3.5) g/dL Albumin/Globulin Ratio (1.1-2.2) Svoav-2-Uzqplauud (0.19-0.46) g/dL Oeutx-3-Wlveomkyu (0.48-1.05) g/dL Beta Globulins (0.48-1.10) g/dL Gamma Globulins (0.62-1.51) g/dL PEP Interpretation Triglycerides (< 150) mg/dL Cholesterol (< 200) mg/dL LDL Cholesterol, Calc (0-99) mg/dL VLDL Cholesterol, Calc (< 31) mg/dL HDL Cholesterol (40-59) mg/dL Cholesterol/HDL Ratio (0-4.9) Amylase (25-125) Units/L Lipase (8-78) Units/L Vitamin B12 (213-816) pg/mL Folate (7.0-31.4) ng/mL Procalcitonin (<=0.10) ng/mL TSH (0.350-4.840) mcIU/mL Random Cortisol mcg/dl Serum Immunofix Reflex Urine Color (Yellow) Urine Clarity (Clear) Urine pH (5.0-8.0) pH Units Ur Specific [place] (1.010-1.025) Urine Protein (Neg-Trace) mg/dL Urine Glucose (UA) (Normal) mg/dL Urine Ketones (Negative) mg/dL Urine Blood (Negative) Urine Nitrite (Negative) Urine Bilirubin (Negative) Urine Urobilinogen (Normal) mg/dL Ur Leukocyte Esterase (Negative) Urine Microscopic RBC (0-3) per hpf Urine Microscopic WBC (0-3) per hpf Ur Eosinophil Smear (None Seen) % Ur Squamous Epith Cells (None-Few) per lpf Urine Bacteria (None-Few) per hpf Hyaline Casts (None-Few) per lpf Ur Culture Indicated? (NO) Urine Osmolality (300-1090) mOsm/kg Urine Creatinine mg/dL Urine Microalbumin mg/L Microalb/Creat Ratio (0-30) Protein/Creatinin Ratio (0-0.20) mg/mg Urine Sodium mEq/L Urine Urea Nitrogen mg/dL Urine Total Protein (1-14) mg/dL Stool Occult Blood (Negative) Urine Opiates Screen (Bouric=146) ng/mL Ur Barbiturates Screen (Pviuox=044) ng/mL Ur Phencyclidine Scrn (Cutoff=25) ng/mL Ur Amphetamines Screen (Visbdw=4015) ng/mL U Benzodiazepines Scrn (Iilxll=767) ng/mL Urine Cocaine Screen (Cutoff= 300) ng/mL U Marijuana (THC) Screen (Cutoff = 50) ng/mL IgG (768-1632) mg/dL IgA (68-408) mg/dL IgM (35-263) mg/dL F-Actin IgG Antibody (0-19) Units Smooth Muscle Ab Titer (<1:20) Complement C3 (88-201) mg/dL Complement C4 (10-40) mg/dL Free [place] LC, Quant (0.33-1.94) mg/dL Free [place] LC, Quant (0.57-2.63) mg/dL Free [place]/Lambda Ratio (0.26-1.65) Hepatitis A IgM Ab (Nonreactive) Hep Bs Antigen (Nonreactive) Hep B Core IgM Ab (Nonreactive) Hepatitis C Ab Screen (Nonreactive) Anti-Streptolysin O Ab (0-330) IU/mL Specimen Rejected Blood Type Antibody Screen Crossmatch 08/11/16 08/11/16 08/11/16 Range/Units 10:49 11:44 15:42 WBC (4.3-11.1) K/mcL RBC (4.19-5.50) M/mcL Hgb 8.9 L (12.9-16.9) g/dL Hct 28.4 L (37.5-50.1) % MCV (83.0-100.0) fL MCH (28.0-33.3) pg MCHC (31.6-35.5) g/dL RDW (11.5-14.5) % Plt Count (140-400) K/mcL MPV (9.4-12.4) fL Reticulocyte # (0.05-0.10) M/mcL Immature Gran % (0-4) % Seg Neutrophils % % Lymphocytes % % Monocytes % % Eosinophils % % Basophils % % Neutrophils # (1.6-8.9) K/mcL Lymphocytes # (0.6-4.6) K/mcL Monocytes # (0.0-1.3) K/mcL Eosinophils # (0.0-0.6) K/mcL Basophils # (0.0-0.2) K/mcL Nucleated RBCs/100 WBC (0) /100 WBC Reactive Lymphocytes (Not Present) Platelet Estimate (Normal) Immature Plt Fraction (1.1-6.1) % Polychromasia (Not Present) Anisocytosis (Not Present) Microcytosis (Not Present) Percent Retic (1.6-2.8) % Immature Retic Fraction (11.0-38.0) % Retic Hgb Equivalent (28.61-36.33) pg PT (9.4-12.1) Seconds INR APTT (26.0-36.0) Seconds VBG pH (7.32-7.42) pH Units VBG pCO2 (41-51) mmHg VBG pO2 (25-40) mmHg VBG HCO3 (21-27) mEq/L Sodium (136-145) mEq/L Potassium (3.5-4.5) mEq/L Chloride (98-109) mEq/L Carbon Dioxide (19-29) mEq/L BUN (8-26) mg/dL Creatinine (0.72-1.25) mg/dL Est GFR ( Amer) (> 60) Est GFR (Non-Af Amer) (> 60) BUN/Creatinine Ratio (6-26) Glucose (70-99) mg/dL POC Glucose 345 H 398 H (58-89) Est Mean Plasma Glucose mg/dl Hemoglobin A1c ( - 5.6) % Serum Osmolality (280-300) mOsm/kg Calculated Osmolality (280-300) Lactic Acid (0.5-2.2) mmol/L Uric Acid (3.5-7.2) mg/dL Calcium (8.6-10.8) mg/dL Ionized Calcium (1.15-1.35) mmol/L Phosphorus (2.3-4.7) mg/dL Magnesium (1.6-2.6) mg/dL Iron (65-175) mcg/dL % Saturation (20-55) % Transferrin (174-364) mg/dL Ferritin (22-275) ng/ml Total Bilirubin (0.2-1.2) mg/dL Direct Bilirubin (0.0-0.5) mg/dL Indirect Bilirubin (0.0-1.2) mg/dL AST (5-34) Units/L ALT (0-55) Units/L Alkaline Phosphatase (38-126) Units/L Ammonia (18-72) mcmol/L Lactate Dehydrogenase (159-327) Units/L Creatine Kinase (30-200) Units/L Troponin I (0-0.03) ng/mL Prot Electrophor EER Serum Total Protein (6.0-8.3) g/dL Total Protein (PEP) (6.00-8.30) g/dL Albumin (3.5-5.0) g/dL Albumin (PEP) (3.75-5.01) g/dL Globulin (2.4-3.5) g/dL Albumin/Globulin Ratio (1.1-2.2) Swegk-3-Hcximockq (0.19-0.46) g/dL Skpan-7-Cwgjbvmrj (0.48-1.05) g/dL Beta Globulins (0.48-1.10) g/dL Gamma Globulins (0.62-1.51) g/dL PEP Interpretation Triglycerides (< 150) mg/dL Cholesterol (< 200) mg/dL LDL Cholesterol, Calc (0-99) mg/dL VLDL Cholesterol, Calc (< 31) mg/dL HDL Cholesterol (40-59) mg/dL Cholesterol/HDL Ratio (0-4.9) Amylase (25-125) Units/L Lipase (8-78) Units/L Vitamin B12 (213-816) pg/mL Folate (7.0-31.4) ng/mL Procalcitonin (<=0.10) ng/mL TSH (0.350-4.840) mcIU/mL Random Cortisol mcg/dl Serum Immunofix Reflex Urine Color (Yellow) Urine Clarity (Clear) Urine pH (5.0-8.0) pH Units Ur Specific [place] (1.010-1.025) Urine Protein (Neg-Trace) mg/dL Urine Glucose (UA) (Normal) mg/dL Urine Ketones (Negative) mg/dL Urine Blood (Negative) Urine Nitrite (Negative) Urine Bilirubin (Negative) Urine Urobilinogen (Normal) mg/dL Ur Leukocyte Esterase (Negative) Urine Microscopic RBC (0-3) per hpf Urine Microscopic WBC (0-3) per hpf Ur Eosinophil Smear (None Seen) % Ur Squamous Epith Cells (None-Few) per lpf Urine Bacteria (None-Few) per hpf Hyaline Casts (None-Few) per lpf Ur Culture Indicated? (NO) Urine Osmolality (300-1090) mOsm/kg Urine Creatinine mg/dL Urine Microalbumin mg/L Microalb/Creat Ratio (0-30) Protein/Creatinin Ratio (0-0.20) mg/mg Urine Sodium mEq/L Urine Urea Nitrogen mg/dL Urine Total Protein (1-14) mg/dL Stool Occult Blood (Negative) Urine Opiates Screen (Uepmdn=465) ng/mL Ur Barbiturates Screen (Gggdpt=102) ng/mL Ur Phencyclidine Scrn (Cutoff=25) ng/mL Ur Amphetamines Screen (Imsjpe=3759) ng/mL U Benzodiazepines Scrn (Rbrfop=923) ng/mL Urine Cocaine Screen (Cutoff= 300) ng/mL U Marijuana (THC) Screen (Cutoff = 50) ng/mL IgG (768-1632) mg/dL IgA (68-408) mg/dL IgM (35-263) mg/dL F-Actin IgG Antibody (0-19) Units Smooth Muscle Ab Titer (<1:20) Complement C3 (88-201) mg/dL Complement C4 (10-40) mg/dL Free [place] LC, Quant (0.33-1.94) mg/dL Free [place] LC, Quant (0.57-2.63) mg/dL Free [place]/Lambda Ratio (0.26-1.65) Hepatitis A IgM Ab (Nonreactive) Hep Bs Antigen (Nonreactive) Hep B Core IgM Ab (Nonreactive) Hepatitis C Ab Screen (Nonreactive) Anti-Streptolysin O Ab (0-330) IU/mL Specimen Rejected Blood Type Antibody Screen Crossmatch 08/11/16 08/11/16 08/11/16 Range/Units 15:55 15:55 15:55 WBC (4.3-11.1) K/mcL RBC (4.19-5.50) M/mcL Hgb (12.9-16.9) g/dL Hct (37.5-50.1) % MCV (83.0-100.0) fL MCH (28.0-33.3) pg MCHC (31.6-35.5) g/dL RDW (11.5-14.5) % Plt Count (140-400) K/mcL MPV (9.4-12.4) fL Reticulocyte # (0.05-0.10) M/mcL Immature Gran % (0-4) % Seg Neutrophils % % Lymphocytes % % Monocytes % % Eosinophils % % Basophils % % Neutrophils # (1.6-8.9) K/mcL Lymphocytes # (0.6-4.6) K/mcL Monocytes # (0.0-1.3) K/mcL Eosinophils # (0.0-0.6) K/mcL Basophils # (0.0-0.2) K/mcL Nucleated RBCs/100 WBC (0) /100 WBC Reactive Lymphocytes (Not Present) Platelet Estimate (Normal) Immature Plt Fraction (1.1-6.1) % Polychromasia (Not Present) Anisocytosis (Not Present) Microcytosis (Not Present) Percent Retic (1.6-2.8) % Immature Retic Fraction (11.0-38.0) % Retic Hgb Equivalent (28.61-36.33) pg PT (9.4-12.1) Seconds INR APTT (26.0-36.0) Seconds VBG pH (7.32-7.42) pH Units VBG pCO2 (41-51) mmHg VBG pO2 (25-40) mmHg VBG HCO3 (21-27) mEq/L Sodium (136-145) mEq/L Potassium (3.5-4.5) mEq/L Chloride (98-109) mEq/L Carbon Dioxide (19-29) mEq/L BUN (8-26) mg/dL Creatinine (0.72-1.25) mg/dL Est GFR ( Amer) (> 60) Est GFR (Non-Af Amer) (> 60) BUN/Creatinine Ratio (6-26) Glucose (70-99) mg/dL POC Glucose (58-89) Est Mean Plasma Glucose mg/dl Hemoglobin A1c ( - 5.6) % Serum Osmolality (280-300) mOsm/kg Calculated Osmolality (280-300) Lactic Acid (0.5-2.2) mmol/L Uric Acid (3.5-7.2) mg/dL Calcium (8.6-10.8) mg/dL Ionized Calcium (1.15-1.35) mmol/L Phosphorus (2.3-4.7) mg/dL Magnesium (1.6-2.6) mg/dL Iron (65-175) mcg/dL % Saturation (20-55) % Transferrin (174-364) mg/dL Ferritin (22-275) ng/ml Total Bilirubin (0.2-1.2) mg/dL Direct Bilirubin (0.0-0.5) mg/dL Indirect Bilirubin (0.0-1.2) mg/dL AST (5-34) Units/L ALT (0-55) Units/L Alkaline Phosphatase (38-126) Units/L Ammonia (18-72) mcmol/L Lactate Dehydrogenase (159-327) Units/L Creatine Kinase (30-200) Units/L Troponin I (0-0.03) ng/mL Prot Electrophor EER Serum Total Protein (6.0-8.3) g/dL Total Protein (PEP) (6.00-8.30) g/dL Albumin (3.5-5.0) g/dL Albumin (PEP) (3.75-5.01) g/dL Globulin (2.4-3.5) g/dL Albumin/Globulin Ratio (1.1-2.2) Utpwh-3-Idcrtheti (0.19-0.46) g/dL Jkzxj-0-Mxgnfrpkl (0.48-1.05) g/dL Beta Globulins (0.48-1.10) g/dL Gamma Globulins (0.62-1.51) g/dL PEP Interpretation Triglycerides (< 150) mg/dL Cholesterol (< 200) mg/dL LDL Cholesterol, Calc (0-99) mg/dL VLDL Cholesterol, Calc (< 31) mg/dL HDL Cholesterol (40-59) mg/dL Cholesterol/HDL Ratio (0-4.9) Amylase (25-125) Units/L Lipase (8-78) Units/L Vitamin B12 (213-816) pg/mL Folate (7.0-31.4) ng/mL Procalcitonin (<=0.10) ng/mL TSH (0.350-4.840) mcIU/mL Random Cortisol mcg/dl Serum Immunofix Reflex Urine Color Yellow (Yellow) Urine Clarity Clear (Clear) Urine pH 5.5 (5.0-8.0) pH Units Ur Specific [place] 1.018 (1.010-1.025) Urine Protein Trace (Neg-Trace) mg/dL Urine Glucose (UA) 250 H (Normal) mg/dL Urine Ketones Negative (Negative) mg/dL Urine Blood Moderate H (Negative) Urine Nitrite Negative (Negative) Urine Bilirubin Negative (Negative) Urine Urobilinogen Normal (Normal) mg/dL Ur Leukocyte Esterase Negative (Negative) Urine Microscopic RBC 30-50 H (0-3) per hpf Urine Microscopic WBC 0-3 (0-3) per hpf Ur Eosinophil Smear (None Seen) % Ur Squamous Epith Cells Few (None-Few) per lpf Urine Bacteria None Seen (None-Few) per hpf Hyaline Casts None Seen (None-Few) per lpf Ur Culture Indicated? (NO) Urine Osmolality 429 (300-1090) mOsm/kg Urine Creatinine 84 mg/dL Urine Microalbumin 11 mg/L Microalb/Creat Ratio 13 (0-30) Protein/Creatinin Ratio 0.14 (0-0.20) mg/mg Urine Sodium 44.0 mEq/L Urine Urea Nitrogen mg/dL Urine Total Protein 12 (1-14) mg/dL Stool Occult Blood (Negative) Urine Opiates Screen (Untvvz=665) ng/mL Ur Barbiturates Screen (Faeppd=296) ng/mL Ur Phencyclidine Scrn (Cutoff=25) ng/mL Ur Amphetamines Screen (Tfvqhy=1185) ng/mL U Benzodiazepines Scrn (Klzpfl=103) ng/mL Urine Cocaine Screen (Cutoff= 300) ng/mL U Marijuana (THC) Screen (Cutoff = 50) ng/mL IgG (768-1632) mg/dL IgA (68-408) mg/dL IgM (35-263) mg/dL F-Actin IgG Antibody (0-19) Units Smooth Muscle Ab Titer (<1:20) Complement C3 (88-201) mg/dL Complement C4 (10-40) mg/dL Free [place] LC, Quant (0.33-1.94) mg/dL Free [place] LC, Quant (0.57-2.63) mg/dL Free [place]/Lambda Ratio (0.26-1.65) Hepatitis A IgM Ab (Nonreactive) Hep Bs Antigen (Nonreactive) Hep B Core IgM Ab (Nonreactive) Hepatitis C Ab Screen (Nonreactive) Anti-Streptolysin O Ab (0-330) IU/mL Specimen Rejected Blood Type Antibody Screen Crossmatch 08/11/16 08/11/16 08/11/16 Range/Units 16:03 16:03 16:03 WBC (4.3-11.1) K/mcL RBC (4.19-5.50) M/mcL Hgb 8.1 L (12.9-16.9) g/dL Hct 26.1 L (37.5-50.1) % MCV (83.0-100.0) fL MCH (28.0-33.3) pg MCHC (31.6-35.5) g/dL RDW (11.5-14.5) % Plt Count (140-400) K/mcL MPV (9.4-12.4) fL Reticulocyte # (0.05-0.10) M/mcL Immature Gran % (0-4) % Seg Neutrophils % % Lymphocytes % % Monocytes % % Eosinophils % % Basophils % % Neutrophils # (1.6-8.9) K/mcL Lymphocytes # (0.6-4.6) K/mcL Monocytes # (0.0-1.3) K/mcL Eosinophils # (0.0-0.6) K/mcL Basophils # (0.0-0.2) K/mcL Nucleated RBCs/100 WBC (0) /100 WBC Reactive Lymphocytes (Not Present) Platelet Estimate (Normal) Immature Plt Fraction (1.1-6.1) % Polychromasia (Not Present) Anisocytosis (Not Present) Microcytosis (Not Present) Percent Retic (1.6-2.8) % Immature Retic Fraction (11.0-38.0) % Retic Hgb Equivalent (28.61-36.33) pg PT (9.4-12.1) Seconds INR APTT (26.0-36.0) Seconds VBG pH (7.32-7.42) pH Units VBG pCO2 (41-51) mmHg VBG pO2 (25-40) mmHg VBG HCO3 (21-27) mEq/L Sodium (136-145) mEq/L Potassium (3.5-4.5) mEq/L Chloride (98-109) mEq/L Carbon Dioxide (19-29) mEq/L BUN (8-26) mg/dL Creatinine (0.72-1.25) mg/dL Est GFR ( Amer) (> 60) Est GFR (Non-Af Amer) (> 60) BUN/Creatinine Ratio (6-26) Glucose (70-99) mg/dL POC Glucose (58-89) Est Mean Plasma Glucose mg/dl Hemoglobin A1c ( - 5.6) % Serum Osmolality (280-300) mOsm/kg Calculated Osmolality (280-300) Lactic Acid (0.5-2.2) mmol/L Uric Acid (3.5-7.2) mg/dL Calcium (8.6-10.8) mg/dL Ionized Calcium (1.15-1.35) mmol/L Phosphorus (2.3-4.7) mg/dL Magnesium (1.6-2.6) mg/dL Iron 27 L (65-175) mcg/dL % Saturation 6 L (20-55) % Transferrin 298 (174-364) mg/dL Ferritin 23 (22-275) ng/ml Total Bilirubin (0.2-1.2) mg/dL Direct Bilirubin (0.0-0.5) mg/dL Indirect Bilirubin (0.0-1.2) mg/dL AST (5-34) Units/L ALT (0-55) Units/L Alkaline Phosphatase (38-126) Units/L Ammonia (18-72) mcmol/L Lactate Dehydrogenase (159-327) Units/L Creatine Kinase (30-200) Units/L Troponin I (0-0.03) ng/mL Prot Electrophor EER Serum Total Protein (6.0-8.3) g/dL Total Protein (PEP) (6.00-8.30) g/dL Albumin (3.5-5.0) g/dL Albumin (PEP) (3.75-5.01) g/dL Globulin (2.4-3.5) g/dL Albumin/Globulin Ratio (1.1-2.2) Lcipm-5-Awotanbxc (0.19-0.46) g/dL Zqzgu-8-Lsorgfgzv (0.48-1.05) g/dL Beta Globulins (0.48-1.10) g/dL Gamma Globulins (0.62-1.51) g/dL PEP Interpretation Triglycerides (< 150) mg/dL Cholesterol (< 200) mg/dL LDL Cholesterol, Calc (0-99) mg/dL VLDL Cholesterol, Calc (< 31) mg/dL HDL Cholesterol (40-59) mg/dL Cholesterol/HDL Ratio (0-4.9) Amylase (25-125) Units/L Lipase (8-78) Units/L Vitamin B12 (213-816) pg/mL Folate (7.0-31.4) ng/mL Procalcitonin (<=0.10) ng/mL TSH (0.350-4.840) mcIU/mL Random Cortisol mcg/dl Serum Immunofix Reflex Urine Color (Yellow) Urine Clarity (Clear) Urine pH (5.0-8.0) pH Units Ur Specific [place] (1.010-1.025) Urine Protein (Neg-Trace) mg/dL Urine Glucose (UA) (Normal) mg/dL Urine Ketones (Negative) mg/dL Urine Blood (Negative) Urine Nitrite (Negative) Urine Bilirubin (Negative) Urine Urobilinogen (Normal) mg/dL Ur Leukocyte Esterase (Negative) Urine Microscopic RBC (0-3) per hpf Urine Microscopic WBC (0-3) per hpf Ur Eosinophil Smear (None Seen) % Ur Squamous Epith Cells (None-Few) per lpf Urine Bacteria (None-Few) per hpf Hyaline Casts (None-Few) per lpf Ur Culture Indicated? (NO) Urine Osmolality (300-1090) mOsm/kg Urine Creatinine mg/dL Urine Microalbumin mg/L Microalb/Creat Ratio (0-30) Protein/Creatinin Ratio (0-0.20) mg/mg Urine Sodium mEq/L Urine Urea Nitrogen mg/dL Urine Total Protein (1-14) mg/dL Stool Occult Blood (Negative) Urine Opiates Screen (Zhfbjr=951) ng/mL Ur Barbiturates Screen (Uzpofe=839) ng/mL Ur Phencyclidine Scrn (Cutoff=25) ng/mL Ur Amphetamines Screen (Jxlvrn=3406) ng/mL U Benzodiazepines Scrn (Ivbaka=973) ng/mL Urine Cocaine Screen (Cutoff= 300) ng/mL U Marijuana (THC) Screen (Cutoff = 50) ng/mL IgG (768-1632) mg/dL IgA (68-408) mg/dL IgM (35-263) mg/dL F-Actin IgG Antibody 29 H (0-19) Units Smooth Muscle Ab Titer <1:20 (<1:20) Complement C3 (88-201) mg/dL Complement C4 (10-40) mg/dL Free [place] LC, Quant (0.33-1.94) mg/dL Free [place] LC, Quant (0.57-2.63) mg/dL Free [place]/Lambda Ratio (0.26-1.65) Hepatitis A IgM Ab (Nonreactive) Hep Bs Antigen (Nonreactive) Hep B Core IgM Ab (Nonreactive) Hepatitis C Ab Screen (Nonreactive) Anti-Streptolysin O Ab (0-330) IU/mL Specimen Rejected Blood Type Antibody Screen Crossmatch 03/07/17 03/07/17 03/07/17 Range/Units 16:03 16:03 16:03 WBC (4.3-11.1) K/mcL RBC (4.19-5.50) M/mcL Hgb (12.9-16.9) g/dL Hct (37.5-50.1) % MCV (83.0-100.0) fL MCH (28.0-33.3) pg MCHC (31.6-35.5) g/dL RDW (11.5-14.5) % Plt Count (140-400) K/mcL MPV (9.4-12.4) fL Reticulocyte # (0.05-0.10) M/mcL Immature Gran % (0-4) % Seg Neutrophils % % Lymphocytes % % Monocytes % % Eosinophils % % Basophils % % Neutrophils # (1.6-8.9) K/mcL Lymphocytes # (0.6-4.6) K/mcL Monocytes # (0.0-1.3) K/mcL Eosinophils # (0.0-0.6) K/mcL Basophils # (0.0-0.2) K/mcL Nucleated RBCs/100 WBC (0) /100 WBC Reactive Lymphocytes (Not Present) Platelet Estimate (Normal) Immature Plt Fraction (1.1-6.1) % Polychromasia (Not Present) Anisocytosis (Not Present) Microcytosis (Not Present) Percent Retic (1.6-2.8) % Immature Retic Fraction (11.0-38.0) % Retic Hgb Equivalent (28.61-36.33) pg PT (9.4-12.1) Seconds INR APTT (26.0-36.0) Seconds VBG pH (7.32-7.42) pH Units VBG pCO2 (41-51) mmHg VBG pO2 (25-40) mmHg VBG HCO3 (21-27) mEq/L Sodium (136-145) mEq/L Potassium (3.5-4.5) mEq/L Chloride (98-109) mEq/L Carbon Dioxide (19-29) mEq/L BUN (8-26) mg/dL Creatinine (0.72-1.25) mg/dL Est GFR ( Amer) (> 60) Est GFR (Non-Af Amer) (> 60) BUN/Creatinine Ratio (6-26) Glucose (70-99) mg/dL POC Glucose (58-89) Est Mean Plasma Glucose mg/dl Hemoglobin A1c ( - 5.6) % Serum Osmolality (280-300) mOsm/kg Calculated Osmolality (280-300) Lactic Acid (0.5-2.2) mmol/L Uric Acid (3.5-7.2) mg/dL Calcium (8.6-10.8) mg/dL Ionized Calcium (1.15-1.35) mmol/L Phosphorus (2.3-4.7) mg/dL Magnesium (1.6-2.6) mg/dL Iron (65-175) mcg/dL % Saturation (20-55) % Transferrin (174-364) mg/dL Ferritin (22-275) ng/ml Total Bilirubin (0.2-1.2) mg/dL Direct Bilirubin (0.0-0.5) mg/dL Indirect Bilirubin (0.0-1.2) mg/dL AST (5-34) Units/L ALT (0-55) Units/L Alkaline Phosphatase (38-126) Units/L Ammonia (18-72) mcmol/L Lactate Dehydrogenase (159-327) Units/L Creatine Kinase (30-200) Units/L Troponin I (0-0.03) ng/mL Prot Electrophor EER Serum Total Protein (6.0-8.3) g/dL Total Protein (PEP) (6.00-8.30) g/dL Albumin (3.5-5.0) g/dL Albumin (PEP) (3.75-5.01) g/dL Globulin (2.4-3.5) g/dL Albumin/Globulin Ratio (1.1-2.2) Ascow-7-Fuogytlos (0.19-0.46) g/dL Cfbat-0-Qlecirpao (0.48-1.05) g/dL Beta Globulins (0.48-1.10) g/dL Gamma Globulins (0.62-1.51) g/dL PEP Interpretation Triglycerides (< 150) mg/dL Cholesterol (< 200) mg/dL LDL Cholesterol, Calc (0-99) mg/dL VLDL Cholesterol, Calc (< 31) mg/dL HDL Cholesterol (40-59) mg/dL Cholesterol/HDL Ratio (0-4.9) Amylase (25-125) Units/L Lipase (8-78) Units/L Vitamin B12 (213-816) pg/mL Folate (7.0-31.4) ng/mL Procalcitonin (<=0.10) ng/mL TSH (0.350-4.840) mcIU/mL Random Cortisol mcg/dl Serum Immunofix Reflex Urine Color (Yellow) Urine Clarity (Clear) Urine pH (5.0-8.0) pH Units Ur Specific [place] (1.010-1.025) Urine Protein (Neg-Trace) mg/dL Urine Glucose (UA) (Normal) mg/dL Urine Ketones (Negative) mg/dL Urine Blood (Negative) Urine Nitrite (Negative) Urine Bilirubin (Negative) Urine Urobilinogen (Normal) mg/dL Ur Leukocyte Esterase (Negative) Urine Microscopic RBC (0-3) per hpf Urine Microscopic WBC (0-3) per hpf Ur Eosinophil Smear (None Seen) % Ur Squamous Epith Cells (None-Few) per lpf Urine Bacteria (None-Few) per hpf Hyaline Casts (None-Few) per lpf Ur Culture Indicated? (NO) Urine Osmolality (300-1090) mOsm/kg Urine Creatinine mg/dL Urine Microalbumin mg/L Microalb/Creat Ratio (0-30) Protein/Creatinin Ratio (0-0.20) mg/mg Urine Sodium mEq/L Urine Urea Nitrogen mg/dL Urine Total Protein (1-14) mg/dL Stool Occult Blood (Negative) Urine Opiates Screen (Wwqgyo=215) ng/mL Ur Barbiturates Screen (Ymsoaq=235) ng/mL Ur Phencyclidine Scrn (Cutoff=25) ng/mL Ur Amphetamines Screen (Wzmkzj=1698) ng/mL U Benzodiazepines Scrn (Fclvyv=180) ng/mL Urine Cocaine Screen (Cutoff= 300) ng/mL U Marijuana (THC) Screen (Cutoff = 50) ng/mL IgG (768-1632) mg/dL IgA (68-408) mg/dL IgM (35-263) mg/dL F-Actin IgG Antibody (0-19) Units Smooth Muscle Ab Titer (<1:20) Complement C3 122 (88-201) mg/dL Complement C4 12 (10-40) mg/dL Free [place] LC, Quant (0.33-1.94) mg/dL Free Lambda LC, Quant (0.57-2.63) mg/dL Free [place]/Lambda Ratio (0.26-1.65) Hepatitis A IgM Ab Nonreactive (Nonreactive) Hep Bs Antigen Nonreactive (Nonreactive) Hep B Core IgM Ab Nonreactive (Nonreactive) Hepatitis C Ab Screen Nonreactive (Nonreactive) Anti-Streptolysin O Ab 543 H (0-330) IU/mL Specimen Rejected Blood Type Antibody Screen Crossmatch 08/11/16 08/11/16 08/11/16 Range/Units 16:03 16:03 16:03 WBC (4.3-11.1) K/mcL RBC (4.19-5.50) M/mcL Hgb (12.9-16.9) g/dL Hct (37.5-50.1) % MCV (83.0-100.0) fL MCH (28.0-33.3) pg MCHC (31.6-35.5) g/dL RDW (11.5-14.5) % Plt Count (140-400) K/mcL MPV (9.4-12.4) fL Reticulocyte # (0.05-0.10) M/mcL Immature Gran % (0-4) % Seg Neutrophils % % Lymphocytes % % Monocytes % % Eosinophils % % Basophils % % Neutrophils # (1.6-8.9) K/mcL Lymphocytes # (0.6-4.6) K/mcL Monocytes # (0.0-1.3) K/mcL Eosinophils # (0.0-0.6) K/mcL Basophils # (0.0-0.2) K/mcL Nucleated RBCs/100 WBC (0) /100 WBC Reactive Lymphocytes (Not Present) Platelet Estimate (Normal) Immature Plt Fraction (1.1-6.1) % Polychromasia (Not Present) Anisocytosis (Not Present) Microcytosis (Not Present) Percent Retic (1.6-2.8) % Immature Retic Fraction (11.0-38.0) % Retic Hgb Equivalent (28.61-36.33) pg PT (9.4-12.1) Seconds INR APTT (26.0-36.0) Seconds VBG pH (7.32-7.42) pH Units VBG pCO2 (41-51) mmHg VBG pO2 (25-40) mmHg VBG HCO3 (21-27) mEq/L Sodium (136-145) mEq/L Potassium (3.5-4.5) mEq/L Chloride (98-109) mEq/L Carbon Dioxide (19-29) mEq/L BUN (8-26) mg/dL Creatinine (0.72-1.25) mg/dL Est GFR ( Amer) (> 60) Est GFR (Non-Af Amer) (> 60) BUN/Creatinine Ratio (6-26) Glucose (70-99) mg/dL POC Glucose (58-89) Est Mean Plasma Glucose mg/dl Hemoglobin A1c ( - 5.6) % Serum Osmolality 309 H (280-300) mOsm/kg Calculated Osmolality (280-300) Lactic Acid (0.5-2.2) mmol/L Uric Acid 7.3 H (3.5-7.2) mg/dL Calcium (8.6-10.8) mg/dL Ionized Calcium (1.15-1.35) mmol/L Phosphorus (2.3-4.7) mg/dL Magnesium (1.6-2.6) mg/dL Iron (65-175) mcg/dL % Saturation (20-55) % Transferrin (174-364) mg/dL Ferritin (22-275) ng/ml Total Bilirubin (0.2-1.2) mg/dL Direct Bilirubin (0.0-0.5) mg/dL Indirect Bilirubin (0.0-1.2) mg/dL AST (5-34) Units/L ALT (0-55) Units/L Alkaline Phosphatase (38-126) Units/L Ammonia (18-72) mcmol/L Lactate Dehydrogenase (159-327) Units/L Creatine Kinase 155 (30-200) Units/L Troponin I (0-0.03) ng/mL Prot Electrophor EER Serum Total Protein (6.0-8.3) g/dL Total Protein (PEP) (6.00-8.30) g/dL Albumin (3.5-5.0) g/dL Albumin (PEP) (3.75-5.01) g/dL Globulin (2.4-3.5) g/dL Albumin/Globulin Ratio (1.1-2.2) Uopxa-6-Dzqorabmq (0.19-0.46) g/dL Wgksz-1-Xorfpdlxq (0.48-1.05) g/dL Beta Globulins (0.48-1.10) g/dL Gamma Globulins (0.62-1.51) g/dL PEP Interpretation Triglycerides (< 150) mg/dL Cholesterol (< 200) mg/dL LDL Cholesterol, Calc (0-99) mg/dL VLDL Cholesterol, Calc (< 31) mg/dL HDL Cholesterol (40-59) mg/dL Cholesterol/HDL Ratio (0-4.9) Amylase (25-125) Units/L Lipase (8-78) Units/L Vitamin B12 (213-816) pg/mL Folate (7.0-31.4) ng/mL Procalcitonin (<=0.10) ng/mL TSH 1.808 (0.350-4.840) mcIU/mL Random Cortisol 2.4 mcg/dl Serum Immunofix Reflex Urine Color (Yellow) Urine Clarity (Clear) Urine pH (5.0-8.0) pH Units Ur Specific [place] (1.010-1.025) Urine Protein (Neg-Trace) mg/dL Urine Glucose (UA) (Normal) mg/dL Urine Ketones (Negative) mg/dL Urine Blood (Negative) Urine Nitrite (Negative) Urine Bilirubin (Negative) Urine Urobilinogen (Normal) mg/dL Ur Leukocyte Esterase (Negative) Urine Microscopic RBC (0-3) per hpf Urine Microscopic WBC (0-3) per hpf Ur Eosinophil Smear (None Seen) % Ur Squamous Epith Cells (None-Few) per lpf Urine Bacteria (None-Few) per hpf Hyaline Casts (None-Few) per lpf Ur Culture Indicated? (NO) Urine Osmolality (300-1090) mOsm/kg Urine Creatinine mg/dL Urine Microalbumin mg/L Microalb/Creat Ratio (0-30) Protein/Creatinin Ratio (0-0.20) mg/mg Urine Sodium mEq/L Urine Urea Nitrogen mg/dL Urine Total Protein (1-14) mg/dL Stool Occult Blood (Negative) Urine Opiates Screen (Adxsma=858) ng/mL Ur Barbiturates Screen (Pkmhpw=633) ng/mL Ur Phencyclidine Scrn (Cutoff=25) ng/mL Ur Amphetamines Screen (Czrbjb=1626) ng/mL U Benzodiazepines Scrn (Ydbojz=247) ng/mL Urine Cocaine Screen (Cutoff= 300) ng/mL U Marijuana (THC) Screen (Cutoff = 50) ng/mL IgG (768-1632) mg/dL IgA (68-408) mg/dL IgM (35-263) mg/dL F-Actin IgG Antibody (0-19) Units Smooth Muscle Ab Titer (<1:20) Complement C3 (88-201) mg/dL Complement C4 (10-40) mg/dL Free [place] LC, Quant (0.33-1.94) mg/dL Free [place] LC, Quant (0.57-2.63) mg/dL Free [place]/Lambda Ratio (0.26-1.65) Hepatitis A IgM Ab (Nonreactive) Hep Bs Antigen (Nonreactive) Hep B Core IgM Ab (Nonreactive) Hepatitis C Ab Screen (Nonreactive) Anti-Streptolysin O Ab (0-330) IU/mL Specimen Rejected Blood Type Antibody Screen Crossmatch 08/11/16 08/11/16 08/11/16 Range/Units 16:03 16:03 16:03 WBC (4.3-11.1) K/mcL RBC (4.19-5.50) M/mcL Hgb (12.9-16.9) g/dL Hct (37.5-50.1) % MCV (83.0-100.0) fL MCH (28.0-33.3) pg MCHC (31.6-35.5) g/dL RDW (11.5-14.5) % Plt Count (140-400) K/mcL MPV (9.4-12.4) fL Reticulocyte # 0.07 (0.05-0.10) M/mcL Immature Gran % (0-4) % Seg Neutrophils % % Lymphocytes % % Monocytes % % Eosinophils % % Basophils % % Neutrophils # (1.6-8.9) K/mcL Lymphocytes # (0.6-4.6) K/mcL Monocytes # (0.0-1.3) K/mcL Eosinophils # (0.0-0.6) K/mcL Basophils # (0.0-0.2) K/mcL Nucleated RBCs/100 WBC (0) /100 WBC Reactive Lymphocytes (Not Present) Platelet Estimate (Normal) Immature Plt Fraction (1.1-6.1) % Polychromasia (Not Present) Anisocytosis (Not Present) Microcytosis (Not Present) Percent Retic 2.2 (1.6-2.8) % Immature Retic Fraction 28.0 (11.0-38.0) % Retic Hgb Equivalent 26.2 L (28.61-36.33) pg PT (9.4-12.1) Seconds INR APTT (26.0-36.0) Seconds VBG pH (7.32-7.42) pH Units VBG pCO2 (41-51) mmHg VBG pO2 (25-40) mmHg VBG HCO3 (21-27) mEq/L Sodium (136-145) mEq/L Potassium (3.5-4.5) mEq/L Chloride (98-109) mEq/L Carbon Dioxide (19-29) mEq/L BUN (8-26) mg/dL Creatinine (0.72-1.25) mg/dL Est GFR ( Amer) (> 60) Est GFR (Non-Af Amer) (> 60) BUN/Creatinine Ratio (6-26) Glucose (70-99) mg/dL POC Glucose (58-89) Est Mean Plasma Glucose mg/dl Hemoglobin A1c ( - 5.6) % Serum Osmolality (280-300) mOsm/kg Calculated Osmolality (280-300) Lactic Acid (0.5-2.2) mmol/L Uric Acid (3.5-7.2) mg/dL Calcium (8.6-10.8) mg/dL Ionized Calcium (1.15-1.35) mmol/L Phosphorus (2.3-4.7) mg/dL Magnesium (1.6-2.6) mg/dL Iron (65-175) mcg/dL % Saturation (20-55) % Transferrin (174-364) mg/dL Ferritin (22-275) ng/ml Total Bilirubin (0.2-1.2) mg/dL Direct Bilirubin (0.0-0.5) mg/dL Indirect Bilirubin (0.0-1.2) mg/dL AST (5-34) Units/L ALT (0-55) Units/L Alkaline Phosphatase (38-126) Units/L Ammonia (18-72) mcmol/L Lactate Dehydrogenase 174 (159-327) Units/L Creatine Kinase (30-200) Units/L Troponin I (0-0.03) ng/mL Prot Electrophor EER Serum Total Protein (6.0-8.3) g/dL Total Protein (PEP) (6.00-8.30) g/dL Albumin (3.5-5.0) g/dL Albumin (PEP) (3.75-5.01) g/dL Globulin (2.4-3.5) g/dL Albumin/Globulin Ratio (1.1-2.2) Lhnih-6-Kqfszamen (0.19-0.46) g/dL Qampd-1-Zusmkqhrt (0.48-1.05) g/dL Beta Globulins (0.48-1.10) g/dL Gamma Globulins (0.62-1.51) g/dL PEP Interpretation Triglycerides (< 150) mg/dL Cholesterol (< 200) mg/dL LDL Cholesterol, Calc (0-99) mg/dL VLDL Cholesterol, Calc (< 31) mg/dL HDL Cholesterol (40-59) mg/dL Cholesterol/HDL Ratio (0-4.9) Amylase (25-125) Units/L Lipase (8-78) Units/L Vitamin B12 734 (213-816) pg/mL Folate 10.6 (7.0-31.4) ng/mL Procalcitonin (<=0.10) ng/mL TSH (0.350-4.840) mcIU/mL Random Cortisol mcg/dl Serum Immunofix Reflex Urine Color (Yellow) Urine Clarity (Clear) Urine pH (5.0-8.0) pH Units Ur Specific [place] (1.010-1.025) Urine Protein (Neg-Trace) mg/dL Urine Glucose (UA) (Normal) mg/dL Urine Ketones (Negative) mg/dL Urine Blood (Negative) Urine Nitrite (Negative) Urine Bilirubin (Negative) Urine Urobilinogen (Normal) mg/dL Ur Leukocyte Esterase (Negative) Urine Microscopic RBC (0-3) per hpf Urine Microscopic WBC (0-3) per hpf Ur Eosinophil Smear (None Seen) % Ur Squamous Epith Cells (None-Few) per lpf Urine Bacteria (None-Few) per hpf Hyaline Casts (None-Few) per lpf Ur Culture Indicated? (NO) Urine Osmolality (300-1090) mOsm/kg Urine Creatinine mg/dL Urine Microalbumin mg/L Microalb/Creat Ratio (0-30) Protein/Creatinin Ratio (0-0.20) mg/mg Urine Sodium mEq/L Urine Urea Nitrogen mg/dL Urine Total Protein (1-14) mg/dL Stool Occult Blood (Negative) Urine Opiates Screen (Rdlzdh=255) ng/mL Ur Barbiturates Screen (Bcuomp=562) ng/mL Ur Phencyclidine Scrn (Cutoff=25) ng/mL Ur Amphetamines Screen (Hbadru=9223) ng/mL U Benzodiazepines Scrn (Mktrkl=456) ng/mL Urine Cocaine Screen (Cutoff= 300) ng/mL U Marijuana (THC) Screen (Cutoff = 50) ng/mL IgG (768-1632) mg/dL IgA (68-408) mg/dL IgM (35-263) mg/dL F-Actin IgG Antibody (0-19) Units Smooth Muscle Ab Titer (<1:20) Complement C3 (88-201) mg/dL Complement C4 (10-40) mg/dL Free [place] LC, Quant (0.33-1.94) mg/dL Free [place] LC, Quant (0.57-2.63) mg/dL Free [place]/Lambda Ratio (0.26-1.65) Hepatitis A IgM Ab (Nonreactive) Hep Bs Antigen (Nonreactive) Hep B Core IgM Ab (Nonreactive) Hepatitis C Ab Screen (Nonreactive) Anti-Streptolysin O Ab (0-330) IU/mL Specimen Rejected Blood Type Antibody Screen Crossmatch 08/11/16 08/11/16 08/11/16 Range/Units 16:03 16:03 16:03 WBC 4.1 L (4.3-11.1) K/mcL RBC 3.24 L (4.19-5.50) M/mcL Hgb 8.1 L (12.9-16.9) g/dL Hct 25.4 L (37.5-50.1) % MCV 78.4 L (83.0-100.0) fL MCH 25.0 L (28.0-33.3) pg MCHC 31.9 (31.6-35.5) g/dL RDW 15.9 H (11.5-14.5) % Plt Count 77 L (140-400) K/mcL MPV 11.9 (9.4-12.4) fL Reticulocyte # (0.05-0.10) M/mcL Immature Gran % 0.2 (0-4) % Seg Neutrophils % 48.9 % Lymphocytes % 36.1 % Monocytes % 11.7 % Eosinophils % 2.4 % Basophils % 0.7 % Neutrophils # 2.0 (1.6-8.9) K/mcL Lymphocytes # 1.5 (0.6-4.6) K/mcL Monocytes # 0.5 (0.0-1.3) K/mcL Eosinophils # 0.1 (0.0-0.6) K/mcL Basophils # 0.0 (0.0-0.2) K/mcL Nucleated RBCs/100 WBC (0) /100 WBC Reactive Lymphocytes (Not Present) Platelet Estimate (Normal) Immature Plt Fraction 6.4 H (1.1-6.1) % Polychromasia (Not Present) Anisocytosis (Not Present) Microcytosis (Not Present) Percent Retic (1.6-2.8) % Immature Retic Fraction (11.0-38.0) % Retic Hgb Equivalent (28.61-36.33) pg PT (9.4-12.1) Seconds INR APTT (26.0-36.0) Seconds VBG pH 7.25 L (7.32-7.42) pH Units VBG pCO2 47 (41-51) mmHg VBG pO2 144 H (25-40) mmHg VBG HCO3 20.6 L (21-27) mEq/L Sodium (136-145) mEq/L Potassium (3.5-4.5) mEq/L Chloride (98-109) mEq/L Carbon Dioxide (19-29) mEq/L BUN (8-26) mg/dL Creatinine (0.72-1.25) mg/dL Est GFR ( Amer) (> 60) Est GFR (Non-Af Amer) (> 60) BUN/Creatinine Ratio (6-26) Glucose (70-99) mg/dL POC Glucose (58-89) Est Mean Plasma Glucose mg/dl Hemoglobin A1c ( - 5.6) % Serum Osmolality (280-300) mOsm/kg Calculated Osmolality (280-300) Lactic Acid (0.5-2.2) mmol/L Uric Acid (3.5-7.2) mg/dL Calcium (8.6-10.8) mg/dL Ionized Calcium (1.15-1.35) mmol/L Phosphorus (2.3-4.7) mg/dL Magnesium (1.6-2.6) mg/dL Iron (65-175) mcg/dL % Saturation (20-55) % Transferrin (174-364) mg/dL Ferritin (22-275) ng/ml Total Bilirubin (0.2-1.2) mg/dL Direct Bilirubin (0.0-0.5) mg/dL Indirect Bilirubin (0.0-1.2) mg/dL AST (5-34) Units/L ALT (0-55) Units/L Alkaline Phosphatase (38-126) Units/L Ammonia (18-72) mcmol/L Lactate Dehydrogenase (159-327) Units/L Creatine Kinase (30-200) Units/L Troponin I (0-0.03) ng/mL Prot Electrophor EER Serum Total Protein (6.0-8.3) g/dL Total Protein (PEP) (6.00-8.30) g/dL Albumin (3.5-5.0) g/dL Albumin (PEP) (3.75-5.01) g/dL Globulin (2.4-3.5) g/dL Albumin/Globulin Ratio (1.1-2.2) Iodmf-9-Zzmcfzbmy (0.19-0.46) g/dL Zedpi-8-Hovlvtcfe (0.48-1.05) g/dL Beta Globulins (0.48-1.10) g/dL Gamma Globulins (0.62-1.51) g/dL PEP Interpretation Triglycerides (< 150) mg/dL Cholesterol (< 200) mg/dL LDL Cholesterol, Calc (0-99) mg/dL VLDL Cholesterol, Calc (< 31) mg/dL HDL Cholesterol (40-59) mg/dL Cholesterol/HDL Ratio (0-4.9) Amylase (25-125) Units/L Lipase (8-78) Units/L Vitamin B12 (213-816) pg/mL Folate (7.0-31.4) ng/mL Procalcitonin 0.11 H (<=0.10) ng/mL TSH (0.350-4.840) mcIU/mL Random Cortisol mcg/dl Serum Immunofix Reflex Urine Color (Yellow) Urine Clarity (Clear) Urine pH (5.0-8.0) pH Units Ur Specific [place] (1.010-1.025) Urine Protein (Neg-Trace) mg/dL Urine Glucose (UA) (Normal) mg/dL Urine Ketones (Negative) mg/dL Urine Blood (Negative) Urine Nitrite (Negative) Urine Bilirubin (Negative) Urine Urobilinogen (Normal) mg/dL Ur Leukocyte Esterase (Negative) Urine Microscopic RBC (0-3) per hpf Urine Microscopic WBC (0-3) per hpf Ur Eosinophil Smear (None Seen) % Ur Squamous Epith Cells (None-Few) per lpf Urine Bacteria (None-Few) per hpf Hyaline Casts (None-Few) per lpf Ur Culture Indicated? (NO) Urine Osmolality (300-1090) mOsm/kg Urine Creatinine mg/dL Urine Microalbumin mg/L Microalb/Creat Ratio (0-30) Protein/Creatinin Ratio (0-0.20) mg/mg Urine Sodium mEq/L Urine Urea Nitrogen mg/dL Urine Total Protein (1-14) mg/dL Stool Occult Blood (Negative) Urine Opiates Screen (Xxkpyj=800) ng/mL Ur Barbiturates Screen (Fnoepz=297) ng/mL Ur Phencyclidine Scrn (Cutoff=25) ng/mL Ur Amphetamines Screen (Vuegby=7551) ng/mL U Benzodiazepines Scrn (Kfysgb=830) ng/mL Urine Cocaine Screen (Cutoff= 300) ng/mL U Marijuana (THC) Screen (Cutoff = 50) ng/mL IgG (768-1632) mg/dL IgA (68-408) mg/dL IgM (35-263) mg/dL F-Actin IgG Antibody (0-19) Units Smooth Muscle Ab Titer (<1:20) Complement C3 (88-201) mg/dL Complement C4 (10-40) mg/dL Free [place] LC, Quant (0.33-1.94) mg/dL Free [place] LC, Quant (0.57-2.63) mg/dL Free [place]/Lambda Ratio (0.26-1.65) Hepatitis A IgM Ab (Nonreactive) Hep Bs Antigen (Nonreactive) Hep B Core IgM Ab (Nonreactive) Hepatitis C Ab Screen (Nonreactive) Anti-Streptolysin O Ab (0-330) IU/mL Specimen Rejected Blood Type Antibody Screen Crossmatch 08/11/16 08/11/16 08/12/16 Range/Units 16:03 21:53 00:44 WBC (4.3-11.1) K/mcL RBC (4.19-5.50) M/mcL Hgb (12.9-16.9) g/dL Hct (37.5-50.1) % MCV (83.0-100.0) fL MCH (28.0-33.3) pg MCHC (31.6-35.5) g/dL RDW (11.5-14.5) % Plt Count (140-400) K/mcL MPV (9.4-12.4) fL Reticulocyte # (0.05-0.10) M/mcL Immature Gran % (0-4) % Seg Neutrophils % % Lymphocytes % % Monocytes % % Eosinophils % % Basophils % % Neutrophils # (1.6-8.9) K/mcL Lymphocytes # (0.6-4.6) K/mcL Monocytes # (0.0-1.3) K/mcL Eosinophils # (0.0-0.6) K/mcL Basophils # (0.0-0.2) K/mcL Nucleated RBCs/100 WBC (0) /100 WBC Reactive Lymphocytes (Not Present) Platelet Estimate (Normal) Immature Plt Fraction (1.1-6.1) % Polychromasia (Not Present) Anisocytosis (Not Present) Microcytosis (Not Present) Percent Retic (1.6-2.8) % Immature Retic Fraction (11.0-38.0) % Retic Hgb Equivalent (28.61-36.33) pg PT (9.4-12.1) Seconds INR APTT (26.0-36.0) Seconds VBG pH (7.32-7.42) pH Units VBG pCO2 (41-51) mmHg VBG pO2 (25-40) mmHg VBG HCO3 (21-27) mEq/L Sodium 125 L (136-145) mEq/L Potassium 6.1 H (3.5-4.5) mEq/L Chloride 99 (98-109) mEq/L Carbon Dioxide 17 L (19-29) mEq/L BUN 62 H (8-26) mg/dL Creatinine 2.69 H (0.72-1.25) mg/dL Est GFR ( Amer) 29 L (> 60) Est GFR (Non-Af Amer) 24 L (> 60) BUN/Creatinine Ratio 23 (6-26) Glucose 408 H (70-99) mg/dL POC Glucose 375 H 440 H* (58-89) Est Mean Plasma Glucose mg/dl Hemoglobin A1c ( - 5.6) % Serum Osmolality (280-300) mOsm/kg Calculated Osmolality 295 (280-300) Lactic Acid (0.5-2.2) mmol/L Uric Acid (3.5-7.2) mg/dL Calcium 7.7 L (8.6-10.8) mg/dL Ionized Calcium (1.15-1.35) mmol/L Phosphorus (2.3-4.7) mg/dL Magnesium (1.6-2.6) mg/dL Iron (65-175) mcg/dL % Saturation (20-55) % Transferrin (174-364) mg/dL Ferritin (22-275) ng/ml Total Bilirubin (0.2-1.2) mg/dL Direct Bilirubin (0.0-0.5) mg/dL Indirect Bilirubin (0.0-1.2) mg/dL AST (5-34) Units/L ALT (0-55) Units/L Alkaline Phosphatase (38-126) Units/L Ammonia (18-72) mcmol/L Lactate Dehydrogenase (159-327) Units/L Creatine Kinase (30-200) Units/L Troponin I (0-0.03) ng/mL Prot Electrophor EER Serum Total Protein (6.0-8.3) g/dL Total Protein (PEP) (6.00-8.30) g/dL Albumin (3.5-5.0) g/dL Albumin (PEP) (3.75-5.01) g/dL Globulin (2.4-3.5) g/dL Albumin/Globulin Ratio (1.1-2.2) Uznuk-0-Tvjborlxt (0.19-0.46) g/dL Vzxhu-1-Ltkklowim (0.48-1.05) g/dL Beta Globulins (0.48-1.10) g/dL Gamma Globulins (0.62-1.51) g/dL PEP Interpretation Triglycerides (< 150) mg/dL Cholesterol (< 200) mg/dL LDL Cholesterol, Calc (0-99) mg/dL VLDL Cholesterol, Calc (< 31) mg/dL HDL Cholesterol (40-59) mg/dL Cholesterol/HDL Ratio (0-4.9) Amylase (25-125) Units/L Lipase (8-78) Units/L Vitamin B12 (213-816) pg/mL Folate (7.0-31.4) ng/mL Procalcitonin (<=0.10) ng/mL TSH (0.350-4.840) mcIU/mL Random Cortisol mcg/dl Serum Immunofix Reflex Urine Color (Yellow) Urine Clarity (Clear) Urine pH (5.0-8.0) pH Units Ur Specific [place] (1.010-1.025) Urine Protein (Neg-Trace) mg/dL Urine Glucose (UA) (Normal) mg/dL Urine Ketones (Negative) mg/dL Urine Blood (Negative) Urine Nitrite (Negative) Urine Bilirubin (Negative) Urine Urobilinogen (Normal) mg/dL Ur Leukocyte Esterase (Negative) Urine Microscopic RBC (0-3) per hpf Urine Microscopic WBC (0-3) per hpf Ur Eosinophil Smear (None Seen) % Ur Squamous Epith Cells (None-Few) per lpf Urine Bacteria (None-Few) per hpf Hyaline Casts (None-Few) per lpf Ur Culture Indicated? (NO) Urine Osmolality (300-1090) mOsm/kg Urine Creatinine mg/dL Urine Microalbumin mg/L Microalb/Creat Ratio (0-30) Protein/Creatinin Ratio (0-0.20) mg/mg Urine Sodium mEq/L Urine Urea Nitrogen mg/dL Urine Total Protein (1-14) mg/dL Stool Occult Blood (Negative) Urine Opiates Screen (Twtool=724) ng/mL Ur Barbiturates Screen (Xujrli=213) ng/mL Ur Phencyclidine Scrn (Cutoff=25) ng/mL Ur Amphetamines Screen (Jtcfsp=5959) ng/mL U Benzodiazepines Scrn (Ranonb=147) ng/mL Urine Cocaine Screen (Cutoff= 300) ng/mL U Marijuana (THC) Screen (Cutoff = 50) ng/mL IgG (768-1632) mg/dL IgA (68-408) mg/dL IgM (35-263) mg/dL F-Actin IgG Antibody (0-19) Units Smooth Muscle Ab Titer (<1:20) Complement C3 (88-201) mg/dL Complement C4 (10-40) mg/dL Free [place] LC, Quant (0.33-1.94) mg/dL Free [place] LC, Quant (0.57-2.63) mg/dL Free [place]/Lambda Ratio (0.26-1.65) Hepatitis A IgM Ab (Nonreactive) Hep Bs Antigen (Nonreactive) Hep B Core IgM Ab (Nonreactive) Hepatitis C Ab Screen (Nonreactive) Anti-Streptolysin O Ab (0-330) IU/mL Specimen Rejected Blood Type Antibody Screen Crossmatch 08/12/16 08/12/16 08/12/16 Range/Units 01:23 01:23 04:17 WBC 3.1 L (4.3-11.1) K/mcL RBC 3.29 L (4.19-5.50) M/mcL Hgb 8.2 L (12.9-16.9) g/dL Hct 26.3 L (37.5-50.1) % MCV 79.9 L (83.0-100.0) fL MCH 24.9 L (28.0-33.3) pg MCHC 31.2 L (31.6-35.5) g/dL RDW 15.9 H (11.5-14.5) % Plt Count 76 L (140-400) K/mcL MPV 10.1 (9.4-12.4) fL Reticulocyte # (0.05-0.10) M/mcL Immature Gran % 0.3 (0-4) % Seg Neutrophils % 53.0 % Lymphocytes % 31.4 % Monocytes % 11.4 % Eosinophils % 3.6 % Basophils % 0.3 % Neutrophils # 1.6 (1.6-8.9) K/mcL Lymphocytes # 1.0 (0.6-4.6) K/mcL Monocytes # 0.4 (0.0-1.3) K/mcL Eosinophils # 0.1 (0.0-0.6) K/mcL Basophils # 0.0 (0.0-0.2) K/mcL Nucleated RBCs/100 WBC (0) /100 WBC Reactive Lymphocytes (Not Present) Platelet Estimate (Normal) Immature Plt Fraction 4.8 (1.1-6.1) % Polychromasia (Not Present) Anisocytosis (Not Present) Microcytosis (Not Present) Percent Retic (1.6-2.8) % Immature Retic Fraction (11.0-38.0) % Retic Hgb Equivalent (28.61-36.33) pg PT (9.4-12.1) Seconds INR APTT (26.0-36.0) Seconds VBG pH (7.32-7.42) pH Units VBG pCO2 (41-51) mmHg VBG pO2 (25-40) mmHg VBG HCO3 (21-27) mEq/L Sodium 127 L (136-145) mEq/L Potassium 6.0 H (3.5-4.5) mEq/L Chloride 102 (98-109) mEq/L Carbon Dioxide 19 (19-29) mEq/L BUN 52 H (8-26) mg/dL Creatinine 1.93 H (0.72-1.25) mg/dL Est GFR ( Amer) 43 L (> 60) Est GFR (Non-Af Amer) 35 L (> 60) BUN/Creatinine Ratio 27 H (6-26) Glucose 463 H (70-99) mg/dL POC Glucose 437 H* (58-89) Est Mean Plasma Glucose mg/dl Hemoglobin A1c ( - 5.6) % Serum Osmolality (280-300) mOsm/kg Calculated Osmolality 298 (280-300) Lactic Acid (0.5-2.2) mmol/L Uric Acid (3.5-7.2) mg/dL Calcium 8.5 L (8.6-10.8) mg/dL Ionized Calcium 1.05 L (1.15-1.35) mmol/L Phosphorus 3.6 (2.3-4.7) mg/dL Magnesium 1.8 (1.6-2.6) mg/dL Iron (65-175) mcg/dL % Saturation (20-55) % Transferrin (174-364) mg/dL Ferritin (22-275) ng/ml Total Bilirubin 0.4 (0.2-1.2) mg/dL Direct Bilirubin (0.0-0.5) mg/dL Indirect Bilirubin (0.0-1.2) mg/dL AST 39 H (5-34) Units/L ALT 35 (0-55) Units/L Alkaline Phosphatase 123 (38-126) Units/L Ammonia (18-72) mcmol/L Lactate Dehydrogenase (159-327) Units/L Creatine Kinase (30-200) Units/L Troponin I (0-0.03) ng/mL Prot Electrophor EER Serum Total Protein 7.3 (6.0-8.3) g/dL Total Protein (PEP) (6.00-8.30) g/dL Albumin 2.9 L (3.5-5.0) g/dL Albumin (PEP) (3.75-5.01) g/dL Globulin 4.4 H (2.4-3.5) g/dL Albumin/Globulin Ratio 0.7 L (1.1-2.2) Bczbc-8-Uedpuvgdg (0.19-0.46) g/dL Ypsju-7-Oykivfzpz (0.48-1.05) g/dL Beta Globulins (0.48-1.10) g/dL Gamma Globulins (0.62-1.51) g/dL PEP Interpretation Triglycerides (< 150) mg/dL Cholesterol (< 200) mg/dL LDL Cholesterol, Calc (0-99) mg/dL VLDL Cholesterol, Calc (< 31) mg/dL HDL Cholesterol (40-59) mg/dL Cholesterol/HDL Ratio (0-4.9) Amylase (25-125) Units/L Lipase (8-78) Units/L Vitamin B12 (213-816) pg/mL Folate (7.0-31.4) ng/mL Procalcitonin (<=0.10) ng/mL TSH (0.350-4.840) mcIU/mL Random Cortisol mcg/dl Serum Immunofix Reflex Urine Color (Yellow) Urine Clarity (Clear) Urine pH (5.0-8.0) pH Units Ur Specific [place] (1.010-1.025) Urine Protein (Neg-Trace) mg/dL Urine Glucose (UA) (Normal) mg/dL Urine Ketones (Negative) mg/dL Urine Blood (Negative) Urine Nitrite (Negative) Urine Bilirubin (Negative) Urine Urobilinogen (Normal) mg/dL Ur Leukocyte Esterase (Negative) Urine Microscopic RBC (0-3) per hpf Urine Microscopic WBC (0-3) per hpf Ur Eosinophil Smear (None Seen) % Ur Squamous Epith Cells (None-Few) per lpf Urine Bacteria (None-Few) per hpf Hyaline Casts (None-Few) per lpf Ur Culture Indicated? (NO) Urine Osmolality (300-1090) mOsm/kg Urine Creatinine mg/dL Urine Microalbumin mg/L Microalb/Creat Ratio (0-30) Protein/Creatinin Ratio (0-0.20) mg/mg Urine Sodium mEq/L Urine Urea Nitrogen mg/dL Urine Total Protein (1-14) mg/dL Stool Occult Blood (Negative) Urine Opiates Screen (Frgpza=943) ng/mL Ur Barbiturates Screen (Xvlexn=496) ng/mL Ur Phencyclidine Scrn (Cutoff=25) ng/mL Ur Amphetamines Screen (Lhuawp=0371) ng/mL U Benzodiazepines Scrn ([place]yo[place]w=052) ng/mL Urine Cocaine Screen (Cutoff= 300) ng/mL U Marijuana (THC) Screen (Cutoff = 50) ng/mL IgG (768-1632) mg/dL IgA (68-408) mg/dL IgM (35-263) mg/dL F-Actin IgG Antibody (0-19) Units Smooth Muscle Ab Titer (<1:20) Complement C3 (88-201) mg/dL Complement C4 (10-40) mg/dL Free [place] LC, Quant (0.33-1.94) mg/dL Free [place] LC, Quant (0.57-2.63) mg/dL Free [place]/Lambda Ratio (0.26-1.65) Hepatitis A IgM Ab (Nonreactive) Hep Bs Antigen (Nonreactive) Hep B Core IgM Ab (Nonreactive) Hepatitis C Ab Screen (Nonreactive) Anti-Streptolysin O Ab (0-330) IU/mL Specimen Rejected Blood Type Antibody Screen Crossmatch 08/12/16 08/12/16 08/12/16 Range/Units 04:18 05:44 07:43 WBC (4.3-11.1) K/mcL RBC (4.19-5.50) M/mcL Hgb (12.9-16.9) g/dL Hct (37.5-50.1) % MCV (83.0-100.0) fL MCH (28.0-33.3) pg MCHC (31.6-35.5) g/dL RDW (11.5-14.5) % Plt Count (140-400) K/mcL MPV (9.4-12.4) fL Reticulocyte # (0.05-0.10) M/mcL Immature Gran % (0-4) % Seg Neutrophils % % Lymphocytes % % Monocytes % % Eosinophils % % Basophils % % Neutrophils # (1.6-8.9) K/mcL Lymphocytes # (0.6-4.6) K/mcL Monocytes # (0.0-1.3) K/mcL Eosinophils # (0.0-0.6) K/mcL Basophils # (0.0-0.2) K/mcL Nucleated RBCs/100 WBC (0) /100 WBC Reactive Lymphocytes (Not Present) Platelet Estimate (Normal) Immature Plt Fraction (1.1-6.1) % Polychromasia (Not Present) Anisocytosis (Not Present) Microcytosis (Not Present) Percent Retic (1.6-2.8) % Immature Retic Fraction (11.0-38.0) % Retic Hgb Equivalent (28.61-36.33) pg PT (9.4-12.1) Seconds INR APTT (26.0-36.0) Seconds VBG pH (7.32-7.42) pH Units VBG pCO2 (41-51) mmHg VBG pO2 (25-40) mmHg VBG HCO3 (21-27) mEq/L Sodium (136-145) mEq/L Potassium (3.5-4.5) mEq/L Chloride (98-109) mEq/L Carbon Dioxide (19-29) mEq/L BUN (8-26) mg/dL Creatinine (0.72-1.25) mg/dL Est GFR ( Amer) (> 60) Est GFR (Non-Af Amer) (> 60) BUN/Creatinine Ratio (6-26) Glucose (70-99) mg/dL POC Glucose 403 H* 400 H 371 H (58-89) Est Mean Plasma Glucose mg/dl Hemoglobin A1c ( - 5.6) % Serum Osmolality (280-300) mOsm/kg Calculated Osmolality (280-300) Lactic Acid (0.5-2.2) mmol/L Uric Acid (3.5-7.2) mg/dL Calcium (8.6-10.8) mg/dL Ionized Calcium (1.15-1.35) mmol/L Phosphorus (2.3-4.7) mg/dL Magnesium (1.6-2.6) mg/dL Iron (65-175) mcg/dL % Saturation (20-55) % Transferrin (174-364) mg/dL Ferritin (22-275) ng/ml Total Bilirubin (0.2-1.2) mg/dL Direct Bilirubin (0.0-0.5) mg/dL Indirect Bilirubin (0.0-1.2) mg/dL AST (5-34) Units/L ALT (0-55) Units/L Alkaline Phosphatase (38-126) Units/L Ammonia (18-72) mcmol/L Lactate Dehydrogenase (159-327) Units/L Creatine Kinase (30-200) Units/L Troponin I (0-0.03) ng/mL Prot Electrophor EER Serum Total Protein (6.0-8.3) g/dL Total Protein (PEP) (6.00-8.30) g/dL Albumin (3.5-5.0) g/dL Albumin (PEP) (3.75-5.01) g/dL Globulin (2.4-3.5) g/dL Albumin/Globulin Ratio (1.1-2.2) Ywogg-3-Pdqezvqge (0.19-0.46) g/dL Cqntt-8-Ceeorwhln (0.48-1.05) g/dL Beta Globulins (0.48-1.10) g/dL Gamma Globulins (0.62-1.51) g/dL PEP Interpretation Triglycerides (< 150) mg/dL Cholesterol (< 200) mg/dL LDL Cholesterol, Calc (0-99) mg/dL VLDL Cholesterol, Calc (< 31) mg/dL HDL Cholesterol (40-59) mg/dL Cholesterol/HDL Ratio (0-4.9) Amylase (25-125) Units/L Lipase (8-78) Units/L Vitamin B12 (213-816) pg/mL Folate (7.0-31.4) ng/mL Procalcitonin (<=0.10) ng/mL TSH (0.350-4.840) mcIU/mL Random Cortisol mcg/dl Serum Immunofix Reflex Urine Color (Yellow) Urine Clarity (Clear) Urine pH (5.0-8.0) pH Units Ur Specific [place] (1.010-1.025) Urine Protein (Neg-Trace) mg/dL Urine Glucose (UA) (Normal) mg/dL Urine Ketones (Negative) mg/dL Urine Blood (Negative) Urine Nitrite (Negative) Urine Bilirubin (Negative) Urine Urobilinogen (Normal) mg/dL Ur Leukocyte Esterase (Negative) Urine Microscopic RBC (0-3) per hpf Urine Microscopic WBC (0-3) per hpf Ur Eosinophil Smear (None Seen) % Ur Squamous Epith Cells (None-Few) per lpf Urine Bacteria (None-Few) per hpf Hyaline Casts (None-Few) per lpf Ur Culture Indicated? (NO) Urine Osmolality (300-1090) mOsm/kg Urine Creatinine mg/dL Urine Microalbumin mg/L Microalb/Creat Ratio (0-30) Protein/Creatinin Ratio (0-0.20) mg/mg Urine Sodium mEq/L Urine Urea Nitrogen mg/dL Urine Total Protein (1-14) mg/dL Stool Occult Blood (Negative) Urine Opiates Screen (Xmkylq=222) ng/mL Ur Barbiturates Screen (Bvdymy=148) ng/mL Ur Phencyclidine Scrn (Cutoff=25) ng/mL Ur Amphetamines Screen (Xcztht=8518) ng/mL U Benzodiazepines Scrn (Ewvjcj=799) ng/mL Urine Cocaine Screen (Cutoff= 300) ng/mL U Marijuana (THC) Screen (Cutoff = 50) ng/mL IgG (768-1632) mg/dL IgA (68-408) mg/dL IgM (35-263) mg/dL F-Actin IgG Antibody (0-19) Units Smooth Muscle Ab Titer (<1:20) Complement C3 (88-201) mg/dL Complement C4 (10-40) mg/dL Free [place] LC, Quant (0.33-1.94) mg/dL Free [place] LC, Quant (0.57-2.63) mg/dL Free [place]/Lambda Ratio (0.26-1.65) Hepatitis A IgM Ab (Nonreactive) Hep Bs Antigen (Nonreactive) Hep B Core IgM Ab (Nonreactive) Hepatitis C Ab Screen (Nonreactive) Anti-Streptolysin O Ab (0-330) IU/mL Specimen Rejected Blood Type Antibody Screen Crossmatch 08/12/16 08/12/16 08/12/16 Range/Units 09:10 09:10 11:21 WBC (4.3-11.1) K/mcL RBC (4.19-5.50) M/mcL Hgb (12.9-16.9) g/dL Hct (37.5-50.1) % MCV (83.0-100.0) fL MCH (28.0-33.3) pg MCHC (31.6-35.5) g/dL RDW (11.5-14.5) % Plt Count (140-400) K/mcL MPV (9.4-12.4) fL Reticulocyte # (0.05-0.10) M/mcL Immature Gran % (0-4) % Seg Neutrophils % % Lymphocytes % % Monocytes % % Eosinophils % % Basophils % % Neutrophils # (1.6-8.9) K/mcL Lymphocytes # (0.6-4.6) K/mcL Monocytes # (0.0-1.3) K/mcL Eosinophils # (0.0-0.6) K/mcL Basophils # (0.0-0.2) K/mcL Nucleated RBCs/100 WBC (0) /100 WBC Reactive Lymphocytes (Not Present) Platelet Estimate (Normal) Immature Plt Fraction (1.1-6.1) % Polychromasia (Not Present) Anisocytosis (Not Present) Microcytosis (Not Present) Percent Retic (1.6-2.8) % Immature Retic Fraction (11.0-38.0) % Retic Hgb Equivalent (28.61-36.33) pg PT (9.4-12.1) Seconds INR APTT (26.0-36.0) Seconds VBG pH (7.32-7.42) pH Units VBG pCO2 (41-51) mmHg VBG pO2 (25-40) mmHg VBG HCO3 (21-27) mEq/L Sodium (136-145) mEq/L Potassium (3.5-4.5) mEq/L Chloride (98-109) mEq/L Carbon Dioxide (19-29) mEq/L BUN (8-26) mg/dL Creatinine (0.72-1.25) mg/dL Est GFR ( Amer) (> 60) Est GFR (Non-Af Amer) (> 60) BUN/Creatinine Ratio (6-26) Glucose (70-99) mg/dL POC Glucose 446 H* (58-89) Est Mean Plasma Glucose mg/dl Hemoglobin A1c ( - 5.6) % Serum Osmolality (280-300) mOsm/kg Calculated Osmolality (280-300) Lactic Acid (0.5-2.2) mmol/L Uric Acid (3.5-7.2) mg/dL Calcium (8.6-10.8) mg/dL Ionized Calcium (1.15-1.35) mmol/L Phosphorus (2.3-4.7) mg/dL Magnesium (1.6-2.6) mg/dL Iron (65-175) mcg/dL % Saturation (20-55) % Transferrin (174-364) mg/dL Ferritin (22-275) ng/ml Total Bilirubin (0.2-1.2) mg/dL Direct Bilirubin (0.0-0.5) mg/dL Indirect Bilirubin (0.0-1.2) mg/dL AST (5-34) Units/L ALT (0-55) Units/L Alkaline Phosphatase (38-126) Units/L Ammonia (18-72) mcmol/L Lactate Dehydrogenase (159-327) Units/L Creatine Kinase (30-200) Units/L Troponin I (0-0.03) ng/mL Prot Electrophor EER SEE NOTE Serum Total Protein (6.0-8.3) g/dL Total Protein (PEP) 7.90 (6.00-8.30) g/dL Albumin (3.5-5.0) g/dL Albumin (PEP) 3.59 L (3.75-5.01) g/dL Globulin (2.4-3.5) g/dL Albumin/Globulin Ratio (1.1-2.2) Lvfxo-7-Sbpiqhxmq 0.27 (0.19-0.46) g/dL Bkcrv-0-Ykgfmocjc 0.68 (0.48-1.05) g/dL Beta Globulins 1.07 (0.48-1.10) g/dL Gamma Globulins 2.29 H (0.62-1.51) g/dL PEP Interpretation SEE NOTE Triglycerides (< 150) mg/dL Cholesterol (< 200) mg/dL LDL Cholesterol, Calc (0-99) mg/dL VLDL Cholesterol, Calc (< 31) mg/dL HDL Cholesterol (40-59) mg/dL Cholesterol/HDL Ratio (0-4.9) Amylase (25-125) Units/L Lipase (8-78) Units/L Vitamin B12 (213-816) pg/mL Folate (7.0-31.4) ng/mL Procalcitonin (<=0.10) ng/mL TSH (0.350-4.840) mcIU/mL Random Cortisol mcg/dl Serum Immunofix Reflex CHERELLE Done Urine Color (Yellow) Urine Clarity (Clear) Urine pH (5.0-8.0) pH Units Ur Specific [place] (1.010-1.025) Urine Protein (Neg-Trace) mg/dL Urine Glucose (UA) (Normal) mg/dL Urine Ketones (Negative) mg/dL Urine Blood (Negative) Urine Nitrite (Negative) Urine Bilirubin (Negative) Urine Urobilinogen (Normal) mg/dL Ur Leukocyte Esterase (Negative) Urine Microscopic RBC (0-3) per hpf Urine Microscopic WBC (0-3) per hpf Ur Eosinophil Smear (None Seen) % Ur Squamous Epith Cells (None-Few) per lpf Urine Bacteria (None-Few) per hpf Hyaline Casts (None-Few) per lpf Ur Culture Indicated? (NO) Urine Osmolality (300-1090) mOsm/kg Urine Creatinine mg/dL Urine Microalbumin mg/L Microalb/Creat Ratio (0-30) Protein/Creatinin Ratio (0-0.20) mg/mg Urine Sodium mEq/L Urine Urea Nitrogen mg/dL Urine Total Protein (1-14) mg/dL Stool Occult Blood (Negative) Urine Opiates Screen (Vzgstu=888) ng/mL Ur Barbiturates Screen (Qrkjdq=374) ng/mL Ur Phencyclidine Scrn (Cutoff=25) ng/mL Ur Amphetamines Screen (Obhyvl=6738) ng/mL U Benzodiazepines Scrn (Xsjpwe=520) ng/mL Urine Cocaine Screen (Cutoff= 300) ng/mL U Marijuana (THC) Screen (Cutoff = 50) ng/mL IgG 2240 H (768-1632) mg/dL IgA 327 (68-408) mg/dL IgM 138 (35-263) mg/dL F-Actin IgG Antibody (0-19) Units Smooth Muscle Ab Titer (<1:20) Complement C3 (88-201) mg/dL Complement C4 (10-40) mg/dL Free [place] LC, Quant 8.41 H (0.33-1.94) mg/dL Free [place] LC, Quant 3.22 H (0.57-2.63) mg/dL Free [place]/Lambda Ratio 2.61 H (0.26-1.65) Hepatitis A IgM Ab (Nonreactive) Hep Bs Antigen (Nonreactive) Hep B Core IgM Ab (Nonreactive) Hepatitis C Ab Screen (Nonreactive) Anti-Streptolysin O Ab (0-330) IU/mL Specimen Rejected Blood Type Antibody Screen Crossmatch 08/12/16 08/12/16 08/12/16 Range/Units 11:23 12:53 12:53 WBC (4.3-11.1) K/mcL RBC (4.19-5.50) M/mcL Hgb (12.9-16.9) g/dL Hct (37.5-50.1) % MCV (83.0-100.0) fL MCH (28.0-33.3) pg MCHC (31.6-35.5) g/dL RDW (11.5-14.5) % Plt Count (140-400) K/mcL MPV (9.4-12.4) fL Reticulocyte # (0.05-0.10) M/mcL Immature Gran % (0-4) % Seg Neutrophils % % Lymphocytes % % Monocytes % % Eosinophils % % Basophils % % Neutrophils # (1.6-8.9) K/mcL Lymphocytes # (0.6-4.6) K/mcL Monocytes # (0.0-1.3) K/mcL Eosinophils # (0.0-0.6) K/mcL Basophils # (0.0-0.2) K/mcL Nucleated RBCs/100 WBC (0) /100 WBC Reactive Lymphocytes (Not Present) Platelet Estimate (Normal) Immature Plt Fraction (1.1-6.1) % Polychromasia (Not Present) Anisocytosis (Not Present) Microcytosis (Not Present) Percent Retic (1.6-2.8) % Immature Retic Fraction (11.0-38.0) % Retic Hgb Equivalent (28.61-36.33) pg PT (9.4-12.1) Seconds INR APTT (26.0-36.0) Seconds VBG pH (7.32-7.42) pH Units VBG pCO2 (41-51) mmHg VBG pO2 (25-40) mmHg VBG HCO3 (21-27) mEq/L Sodium (136-145) mEq/L Potassium 5.8 H (3.5-4.5) mEq/L Chloride (98-109) mEq/L Carbon Dioxide (19-29) mEq/L BUN (8-26) mg/dL Creatinine (0.72-1.25) mg/dL Est GFR ( Amer) (> 60) Est GFR (Non-Af Amer) (> 60) BUN/Creatinine Ratio (6-26) Glucose (70-99) mg/dL POC Glucose 487 H* (58-89) Est Mean Plasma Glucose mg/dl Hemoglobin A1c ( - 5.6) % Serum Osmolality (280-300) mOsm/kg Calculated Osmolality (280-300) Lactic Acid (0.5-2.2) mmol/L Uric Acid (3.5-7.2) mg/dL Calcium (8.6-10.8) mg/dL Ionized Calcium (1.15-1.35) mmol/L Phosphorus (2.3-4.7) mg/dL Magnesium (1.6-2.6) mg/dL Iron (65-175) mcg/dL % Saturation (20-55) % Transferrin (174-364) mg/dL Ferritin (22-275) ng/ml Total Bilirubin (0.2-1.2) mg/dL Direct Bilirubin (0.0-0.5) mg/dL Indirect Bilirubin (0.0-1.2) mg/dL AST (5-34) Units/L ALT (0-55) Units/L Alkaline Phosphatase (38-126) Units/L Ammonia 29 (18-72) mcmol/L Lactate Dehydrogenase (159-327) Units/L Creatine Kinase (30-200) Units/L Troponin I (0-0.03) ng/mL Prot Electrophor EER Serum Total Protein (6.0-8.3) g/dL Total Protein (PEP) (6.00-8.30) g/dL Albumin (3.5-5.0) g/dL Albumin (PEP) (3.75-5.01) g/dL Globulin (2.4-3.5) g/dL Albumin/Globulin Ratio (1.1-2.2) Ontef-7-Inkrqtbgb (0.19-0.46) g/dL Xfpvu-9-Rsptubvxx (0.48-1.05) g/dL Beta Globulins (0.48-1.10) g/dL Gamma Globulins (0.62-1.51) g/dL PEP Interpretation Triglycerides (< 150) mg/dL Cholesterol (< 200) mg/dL LDL Cholesterol, Calc (0-99) mg/dL VLDL Cholesterol, Calc (< 31) mg/dL HDL Cholesterol (40-59) mg/dL Cholesterol/HDL Ratio (0-4.9) Amylase (25-125) Units/L Lipase (8-78) Units/L Vitamin B12 (213-816) pg/mL Folate (7.0-31.4) ng/mL Procalcitonin (<=0.10) ng/mL TSH (0.350-4.840) mcIU/mL Random Cortisol mcg/dl Serum Immunofix Reflex Urine Color (Yellow) Urine Clarity (Clear) Urine pH (5.0-8.0) pH Units Ur Specific [place] (1.010-1.025) Urine Protein (Neg-Trace) mg/dL Urine Glucose (UA) (Normal) mg/dL Urine Ketones (Negative) mg/dL Urine Blood (Negative) Urine Nitrite (Negative) Urine Bilirubin (Negative) Urine Urobilinogen (Normal) mg/dL Ur Leukocyte Esterase (Negative) Urine Microscopic RBC (0-3) per hpf Urine Microscopic WBC (0-3) per hpf Ur Eosinophil Smear (None Seen) % Ur Squamous Epith Cells (None-Few) per lpf Urine Bacteria (None-Few) per hpf Hyaline Casts (None-Few) per lpf Ur Culture Indicated? (NO) Urine Osmolality (300-1090) mOsm/kg Urine Creatinine mg/dL Urine Microalbumin mg/L Microalb/Creat Ratio (0-30) Protein/Creatinin Ratio (0-0.20) mg/mg Urine Sodium mEq/L Urine Urea Nitrogen mg/dL Urine Total Protein (1-14) mg/dL Stool Occult Blood (Negative) Urine Opiates Screen (Dhgqws=806) ng/mL Ur Barbiturates Screen (Mdqliv=270) ng/mL Ur Phencyclidine Scrn (Cutoff=25) ng/mL Ur Amphetamines Screen (Sdpbsb=9319) ng/mL U Benzodiazepines Scrn (Yxskbq=961) ng/mL Urine Cocaine Screen (Cutoff= 300) ng/mL U Marijuana (THC) Screen (Cutoff = 50) ng/mL IgG (768-1632) mg/dL IgA (68-408) mg/dL IgM (35-263) mg/dL F-Actin IgG Antibody (0-19) Units Smooth Muscle Ab Titer (<1:20) Complement C3 (88-201) mg/dL Complement C4 (10-40) mg/dL Free [place] LC, Quant (0.33-1.94) mg/dL Free [place] LC, Quant (0.57-2.63) mg/dL Free [place]/Lambda Ratio (0.26-1.65) Hepatitis A IgM Ab (Nonreactive) Hep Bs Antigen (Nonreactive) Hep B Core IgM Ab (Nonreactive) Hepatitis C Ab Screen (Nonreactive) Anti-Streptolysin O Ab (0-330) IU/mL Specimen Rejected Blood Type Antibody Screen Crossmatch 08/12/16 08/12/16 08/12/16 Range/Units 13:55 15:18 21:31 WBC (4.3-11.1) K/mcL RBC (4.19-5.50) M/mcL Hgb (12.9-16.9) g/dL Hct (37.5-50.1) % MCV (83.0-100.0) fL MCH (28.0-33.3) pg MCHC (31.6-35.5) g/dL RDW (11.5-14.5) % Plt Count (140-400) K/mcL MPV (9.4-12.4) fL Reticulocyte # (0.05-0.10) M/mcL Immature Gran % (0-4) % Seg Neutrophils % % Lymphocytes % % Monocytes % % Eosinophils % % Basophils % % Neutrophils # (1.6-8.9) K/mcL Lymphocytes # (0.6-4.6) K/mcL Monocytes # (0.0-1.3) K/mcL Eosinophils # (0.0-0.6) K/mcL Basophils # (0.0-0.2) K/mcL Nucleated RBCs/100 WBC (0) /100 WBC Reactive Lymphocytes (Not Present) Platelet Estimate (Normal) Immature Plt Fraction (1.1-6.1) % Polychromasia (Not Present) Anisocytosis (Not Present) Microcytosis (Not Present) Percent Retic (1.6-2.8) % Immature Retic Fraction (11.0-38.0) % Retic Hgb Equivalent (28.61-36.33) pg PT (9.4-12.1) Seconds INR APTT (26.0-36.0) Seconds VBG pH (7.32-7.42) pH Units VBG pCO2 (41-51) mmHg VBG pO2 (25-40) mmHg VBG HCO3 (21-27) mEq/L Sodium (136-145) mEq/L Potassium (3.5-4.5) mEq/L Chloride (98-109) mEq/L Carbon Dioxide (19-29) mEq/L BUN (8-26) mg/dL Creatinine (0.72-1.25) mg/dL Est GFR ( Amer) (> 60) Est GFR (Non-Af Amer) (> 60) BUN/Creatinine Ratio (6-26) Glucose (70-99) mg/dL POC Glucose 424 H* 386 H 355 H (58-89) Est Mean Plasma Glucose mg/dl Hemoglobin A1c ( - 5.6) % Serum Osmolality (280-300) mOsm/kg Calculated Osmolality (280-300) Lactic Acid (0.5-2.2) mmol/L Uric Acid (3.5-7.2) mg/dL Calcium (8.6-10.8) mg/dL Ionized Calcium (1.15-1.35) mmol/L Phosphorus (2.3-4.7) mg/dL Magnesium (1.6-2.6) mg/dL Iron (65-175) mcg/dL % Saturation (20-55) % Transferrin (174-364) mg/dL Ferritin (22-275) ng/ml Total Bilirubin (0.2-1.2) mg/dL Direct Bilirubin (0.0-0.5) mg/dL Indirect Bilirubin (0.0-1.2) mg/dL AST (5-34) Units/L ALT (0-55) Units/L Alkaline Phosphatase (38-126) Units/L Ammonia (18-72) mcmol/L Lactate Dehydrogenase (159-327) Units/L Creatine Kinase (30-200) Units/L Troponin I (0-0.03) ng/mL Prot Electrophor EER Serum Total Protein (6.0-8.3) g/dL Total Protein (PEP) (6.00-8.30) g/dL Albumin (3.5-5.0) g/dL Albumin (PEP) (3.75-5.01) g/dL Globulin (2.4-3.5) g/dL Albumin/Globulin Ratio (1.1-2.2) Xigkt-3-Bwyqqqkes (0.19-0.46) g/dL Jcsyy-8-Hlxdevmqp (0.48-1.05) g/dL Beta Globulins (0.48-1.10) g/dL Gamma Globulins (0.62-1.51) g/dL PEP Interpretation Triglycerides (< 150) mg/dL Cholesterol (< 200) mg/dL LDL Cholesterol, Calc (0-99) mg/dL VLDL Cholesterol, Calc (< 31) mg/dL HDL Cholesterol (40-59) mg/dL Cholesterol/HDL Ratio (0-4.9) Amylase (25-125) Units/L Lipase (8-78) Units/L Vitamin B12 (213-816) pg/mL Folate (7.0-31.4) ng/mL Procalcitonin (<=0.10) ng/mL TSH (0.350-4.840) mcIU/mL Random Cortisol mcg/dl Serum Immunofix Reflex Urine Color (Yellow) Urine Clarity (Clear) Urine pH (5.0-8.0) pH Units Ur Specific [place] (1.010-1.025) Urine Protein (Neg-Trace) mg/dL Urine Glucose (UA) (Normal) mg/dL Urine Ketones (Negative) mg/dL Urine Blood (Negative) Urine Nitrite (Negative) Urine Bilirubin (Negative) Urine Urobilinogen (Normal) mg/dL Ur Leukocyte Esterase (Negative) Urine Microscopic RBC (0-3) per hpf Urine Microscopic WBC (0-3) per hpf Ur Eosinophil Smear (None Seen) % Ur Squamous Epith Cells (None-Few) per lpf Urine Bacteria (None-Few) per hpf Hyaline Casts (None-Few) per lpf Ur Culture Indicated? (NO) Urine Osmolality (300-1090) mOsm/kg Urine Creatinine mg/dL Urine Microalbumin mg/L Microalb/Creat Ratio (0-30) Protein/Creatinin Ratio (0-0.20) mg/mg Urine Sodium mEq/L Urine Urea Nitrogen mg/dL Urine Total Protein (1-14) mg/dL Stool Occult Blood (Negative) Urine Opiates Screen (Mlypju=967) ng/mL Ur Barbiturates Screen (Vhfnfy=533) ng/mL Ur Phencyclidine Scrn (Cutoff=25) ng/mL Ur Amphetamines Screen (Nhxblo=6364) ng/mL U Benzodiazepines Scrn (Eahtrc=881) ng/mL Urine Cocaine Screen (Cutoff= 300) ng/mL U Marijuana (THC) Screen (Cutoff = 50) ng/mL IgG (768-1632) mg/dL IgA (68-408) mg/dL IgM (35-263) mg/dL F-Actin IgG Antibody (0-19) Units Smooth Muscle Ab Titer (<1:20) Complement C3 (88-201) mg/dL Complement C4 (10-40) mg/dL Free [place] LC, Quant (0.33-1.94) mg/dL Free [place] LC, Quant (0.57-2.63) mg/dL Free [place]/Lambda Ratio (0.26-1.65) Hepatitis A IgM Ab (Nonreactive) Hep Bs Antigen (Nonreactive) Hep B Core IgM Ab (Nonreactive) Hepatitis C Ab Screen (Nonreactive) Anti-Streptolysin O Ab (0-330) IU/mL Specimen Rejected Blood Type Antibody Screen Crossmatch 08/13/16 08/13/16 08/13/16 Range/Units 04:51 04:51 04:51 WBC 2.5 L (4.3-11.1) K/mcL RBC 3.48 L (4.19-5.50) M/mcL Hgb 8.6 L (12.9-16.9) g/dL Hct 27.5 L (37.5-50.1) % MCV 79.0 L (83.0-100.0) fL MCH 24.7 L (28.0-33.3) pg MCHC 31.3 L (31.6-35.5) g/dL RDW 16.0 H (11.5-14.5) % Plt Count 73 L (140-400) K/mcL MPV 10.7 (9.4-12.4) fL Reticulocyte # (0.05-0.10) M/mcL Immature Gran % 0.0 (0-4) % Seg Neutrophils % 49.3 % Lymphocytes % 37.0 % Monocytes % 9.8 % Eosinophils % 3.5 % Basophils % 0.4 % Neutrophils # 1.2 L (1.6-8.9) K/mcL Lymphocytes # 0.9 (0.6-4.6) K/mcL Monocytes # 0.3 (0.0-1.3) K/mcL Eosinophils # 0.1 (0.0-0.6) K/mcL Basophils # 0.0 (0.0-0.2) K/mcL Nucleated RBCs/100 WBC (0) /100 WBC Reactive Lymphocytes (Not Present) Platelet Estimate (Normal) Immature Plt Fraction (1.1-6.1) % Polychromasia (Not Present) Anisocytosis (Not Present) Microcytosis (Not Present) Percent Retic (1.6-2.8) % Immature Retic Fraction (11.0-38.0) % Retic Hgb Equivalent (28.61-36.33) pg PT (9.4-12.1) Seconds INR APTT (26.0-36.0) Seconds VBG pH (7.32-7.42) pH Units VBG pCO2 (41-51) mmHg VBG pO2 (25-40) mmHg VBG HCO3 (21-27) mEq/L Sodium 129 L (136-145) mEq/L Potassium 4.6 H D (3.5-4.5) mEq/L Chloride 98 (98-109) mEq/L Carbon Dioxide 25 (19-29) mEq/L BUN 21 D (8-26) mg/dL Creatinine 1.20 (0.72-1.25) mg/dL Est GFR ( Amer) > 60 (> 60) Est GFR (Non-Af Amer) > 60 (> 60) BUN/Creatinine Ratio 18 (6-26) Glucose 388 H (70-99) mg/dL POC Glucose (58-89) Est Mean Plasma Glucose mg/dl Hemoglobin A1c ( - 5.6) % Serum Osmolality 302 H (280-300) mOsm/kg Calculated Osmolality 287 (280-300) Lactic Acid (0.5-2.2) mmol/L Uric Acid (3.5-7.2) mg/dL Calcium 8.8 (8.6-10.8) mg/dL Ionized Calcium 1.19 (1.15-1.35) mmol/L Phosphorus (2.3-4.7) mg/dL Magnesium 1.2 L (1.6-2.6) mg/dL Iron (65-175) mcg/dL % Saturation (20-55) % Transferrin (174-364) mg/dL Ferritin (22-275) ng/ml Total Bilirubin 0.5 (0.2-1.2) mg/dL Direct Bilirubin (0.0-0.5) mg/dL Indirect Bilirubin (0.0-1.2) mg/dL AST 49 H (5-34) Units/L ALT 42 (0-55) Units/L Alkaline Phosphatase 136 H (38-126) Units/L Ammonia (18-72) mcmol/L Lactate Dehydrogenase (159-327) Units/L Creatine Kinase (30-200) Units/L Troponin I (0-0.03) ng/mL Prot Electrophor EER Serum Total Protein 7.7 (6.0-8.3) g/dL Total Protein (PEP) (6.00-8.30) g/dL Albumin 2.9 L (3.5-5.0) g/dL Albumin (PEP) (3.75-5.01) g/dL Globulin 4.8 H (2.4-3.5) g/dL Albumin/Globulin Ratio 0.6 L (1.1-2.2) Uldeg-5-Yuoxayjke (0.19-0.46) g/dL Dvwvg-6-Uoialmoag (0.48-1.05) g/dL Beta Globulins (0.48-1.10) g/dL Gamma Globulins (0.62-1.51) g/dL PEP Interpretation Triglycerides (< 150) mg/dL Cholesterol (< 200) mg/dL LDL Cholesterol, Calc (0-99) mg/dL VLDL Cholesterol, Calc (< 31) mg/dL HDL Cholesterol (40-59) mg/dL Cholesterol/HDL Ratio (0-4.9) Amylase (25-125) Units/L Lipase (8-78) Units/L Vitamin B12 (213-816) pg/mL Folate (7.0-31.4) ng/mL Procalcitonin (<=0.10) ng/mL TSH (0.350-4.840) mcIU/mL Random Cortisol mcg/dl Serum Immunofix Reflex Urine Color (Yellow) Urine Clarity (Clear) Urine pH (5.0-8.0) pH Units Ur Specific [place] (1.010-1.025) Urine Protein (Neg-Trace) mg/dL Urine Glucose (UA) (Normal) mg/dL Urine Ketones (Negative) mg/dL Urine Blood (Negative) Urine Nitrite (Negative) Urine Bilirubin (Negative) Urine Urobilinogen (Normal) mg/dL Ur Leukocyte Esterase (Negative) Urine Microscopic RBC (0-3) per hpf Urine Microscopic WBC (0-3) per hpf Ur Eosinophil Smear (None Seen) % Ur Squamous Epith Cells (None-Few) per lpf Urine Bacteria (None-Few) per hpf Hyaline Casts (None-Few) per lpf Ur Culture Indicated? (NO) Urine Osmolality (300-1090) mOsm/kg Urine Creatinine mg/dL Urine Microalbumin mg/L Microalb/Creat Ratio (0-30) Protein/Creatinin Ratio (0-0.20) mg/mg Urine Sodium mEq/L Urine Urea Nitrogen mg/dL Urine Total Protein (1-14) mg/dL Stool Occult Blood (Negative) Urine Opiates Screen ([place]=020) ng/mL Ur Barbiturates Screen (Nqphvj=602) ng/mL Ur Phencyclidine Scrn (Cutoff=25) ng/mL Ur Amphetamines Screen ([place]=1811) ng/mL U Benzodiazepines Scrn (Jeufmo=488) ng/mL Urine Cocaine Screen (Cutoff= 300) ng/mL U Marijuana (THC) Screen (Cutoff = 50) ng/mL IgG (768-1632) mg/dL IgA (68-408) mg/dL IgM (35-263) mg/dL F-Actin IgG Antibody (0-19) Units Smooth Muscle Ab Titer (<1:20) Complement C3 (88-201) mg/dL Complement C4 (10-40) mg/dL Free [place] LC, Quant (0.33-1.94) mg/dL Free [place] LC, Quant (0.57-2.63) mg/dL Free [place]/Lambda Ratio (0.26-1.65) Hepatitis A IgM Ab (Nonreactive) Hep Bs Antigen (Nonreactive) Hep B Core IgM Ab (Nonreactive) Hepatitis C Ab Screen (Nonreactive) Anti-Streptolysin O Ab (0-330) IU/mL Specimen Rejected Blood Type Antibody Screen Crossmatch 08/13/16 08/13/16 08/13/16 Range/Units 07:01 10:36 10:37 WBC (4.3-11.1) K/mcL RBC (4.19-5.50) M/mcL Hgb (12.9-16.9) g/dL Hct (37.5-50.1) % MCV (83.0-100.0) fL MCH (28.0-33.3) pg MCHC (31.6-35.5) g/dL RDW (11.5-14.5) % Plt Count (140-400) K/mcL MPV (9.4-12.4) fL Reticulocyte # (0.05-0.10) M/mcL Immature Gran % (0-4) % Seg Neutrophils % % Lymphocytes % % Monocytes % % Eosinophils % % Basophils % % Neutrophils # (1.6-8.9) K/mcL Lymphocytes # (0.6-4.6) K/mcL Monocytes # (0.0-1.3) K/mcL Eosinophils # (0.0-0.6) K/mcL Basophils # (0.0-0.2) K/mcL Nucleated RBCs/100 WBC (0) /100 WBC Reactive Lymphocytes (Not Present) Platelet Estimate (Normal) Immature Plt Fraction (1.1-6.1) % Polychromasia (Not Present) Anisocytosis (Not Present) Microcytosis (Not Present) Percent Retic (1.6-2.8) % Immature Retic Fraction (11.0-38.0) % Retic Hgb Equivalent (28.61-36.33) pg PT (9.4-12.1) Seconds INR APTT (26.0-36.0) Seconds VBG pH (7.32-7.42) pH Units VBG pCO2 (41-51) mmHg VBG pO2 (25-40) mmHg VBG HCO3 (21-27) mEq/L Sodium (136-145) mEq/L Potassium (3.5-4.5) mEq/L Chloride (98-109) mEq/L Carbon Dioxide (19-29) mEq/L BUN (8-26) mg/dL Creatinine (0.72-1.25) mg/dL Est GFR ( Amer) (> 60) Est GFR (Non-Af Amer) (> 60) BUN/Creatinine Ratio (6-26) Glucose (70-99) mg/dL POC Glucose 334 H 415 H* 455 H* (58-89) Est Mean Plasma Glucose mg/dl Hemoglobin A1c ( - 5.6) % Serum Osmolality (280-300) mOsm/kg Calculated Osmolality (280-300) Lactic Acid (0.5-2.2) mmol/L Uric Acid (3.5-7.2) mg/dL Calcium (8.6-10.8) mg/dL Ionized Calcium (1.15-1.35) mmol/L Phosphorus (2.3-4.7) mg/dL Magnesium (1.6-2.6) mg/dL Iron (65-175) mcg/dL % Saturation (20-55) % Transferrin (174-364) mg/dL Ferritin (22-275) ng/ml Total Bilirubin (0.2-1.2) mg/dL Direct Bilirubin (0.0-0.5) mg/dL Indirect Bilirubin (0.0-1.2) mg/dL AST (5-34) Units/L ALT (0-55) Units/L Alkaline Phosphatase (38-126) Units/L Ammonia (18-72) mcmol/L Lactate Dehydrogenase (159-327) Units/L Creatine Kinase (30-200) Units/L Troponin I (0-0.03) ng/mL Prot Electrophor EER Serum Total Protein (6.0-8.3) g/dL Total Protein (PEP) (6.00-8.30) g/dL Albumin (3.5-5.0) g/dL Albumin (PEP) (3.75-5.01) g/dL Globulin (2.4-3.5) g/dL Albumin/Globulin Ratio (1.1-2.2) Mlriu-7-Reqcgiiqt (0.19-0.46) g/dL Ncamt-2-Cxwzvfrte (0.48-1.05) g/dL Beta Globulins (0.48-1.10) g/dL Gamma Globulins (0.62-1.51) g/dL PEP Interpretation Triglycerides (< 150) mg/dL Cholesterol (< 200) mg/dL LDL Cholesterol, Calc (0-99) mg/dL VLDL Cholesterol, Calc (< 31) mg/dL HDL Cholesterol (40-59) mg/dL Cholesterol/HDL Ratio (0-4.9) Amylase (25-125) Units/L Lipase (8-78) Units/L Vitamin B12 (213-816) pg/mL Folate (7.0-31.4) ng/mL Procalcitonin (<=0.10) ng/mL TSH (0.350-4.840) mcIU/mL Random Cortisol mcg/dl Serum Immunofix Reflex Urine Color (Yellow) Urine Clarity (Clear) Urine pH (5.0-8.0) pH Units Ur Specific [place] (1.010-1.025) Urine Protein (Neg-Trace) mg/dL Urine Glucose (UA) (Normal) mg/dL Urine Ketones (Negative) mg/dL Urine Blood (Negative) Urine Nitrite (Negative) Urine Bilirubin (Negative) Urine Urobilinogen (Normal) mg/dL Ur Leukocyte Esterase (Negative) Urine Microscopic RBC (0-3) per hpf Urine Microscopic WBC (0-3) per hpf Ur Eosinophil Smear (None Seen) % Ur Squamous Epith Cells (None-Few) per lpf Urine Bacteria (None-Few) per hpf Hyaline Casts (None-Few) per lpf Ur Culture Indicated? (NO) Urine Osmolality (300-1090) mOsm/kg Urine Creatinine mg/dL Urine Microalbumin mg/L Microalb/Creat Ratio (0-30) Protein/Creatinin Ratio (0-0.20) mg/mg Urine Sodium mEq/L Urine Urea Nitrogen mg/dL Urine Total Protein (1-14) mg/dL Stool Occult Blood (Negative) Urine Opiates Screen (Cpebwq=098) ng/mL Ur Barbiturates Screen (Hgnyzc=941) ng/mL Ur Phencyclidine Scrn (Cutoff=25) ng/mL Ur Amphetamines Screen (Uqhmrs=1742) ng/mL U Benzodiazepines Scrn (Fweero=901) ng/mL Urine Cocaine Screen (Cutoff= 300) ng/mL U Marijuana (THC) Screen (Cutoff = 50) ng/mL IgG (768-1632) mg/dL IgA (68-408) mg/dL IgM (35-263) mg/dL F-Actin IgG Antibody (0-19) Units Smooth Muscle Ab Titer (<1:20) Complement C3 (88-201) mg/dL Complement C4 (10-40) mg/dL Free [place] LC, Quant (0.33-1.94) mg/dL Free [place] LC, Quant (0.57-2.63) mg/dL Free [place]/Lambda Ratio (0.26-1.65) Hepatitis A IgM Ab (Nonreactive) Hep Bs Antigen (Nonreactive) Hep B Core IgM Ab (Nonreactive) Hepatitis C Ab Screen (Nonreactive) Anti-Streptolysin O Ab (0-330) IU/mL Specimen Rejected Blood Type Antibody Screen Crossmatch 08/13/16 08/13/16 08/13/16 Range/Units 11:38 15:33 16:29 WBC (4.3-11.1) K/mcL RBC (4.19-5.50) M/mcL Hgb (12.9-16.9) g/dL Hct (37.5-50.1) % MCV (83.0-100.0) fL MCH (28.0-33.3) pg MCHC (31.6-35.5) g/dL RDW (11.5-14.5) % Plt Count (140-400) K/mcL MPV (9.4-12.4) fL Reticulocyte # (0.05-0.10) M/mcL Immature Gran % (0-4) % Seg Neutrophils % % Lymphocytes % % Monocytes % % Eosinophils % % Basophils % % Neutrophils # (1.6-8.9) K/mcL Lymphocytes # (0.6-4.6) K/mcL Monocytes # (0.0-1.3) K/mcL Eosinophils # (0.0-0.6) K/mcL Basophils # (0.0-0.2) K/mcL Nucleated RBCs/100 WBC (0) /100 WBC Reactive Lymphocytes (Not Present) Platelet Estimate (Normal) Immature Plt Fraction (1.1-6.1) % Polychromasia (Not Present) Anisocytosis (Not Present) Microcytosis (Not Present) Percent Retic (1.6-2.8) % Immature Retic Fraction (11.0-38.0) % Retic Hgb Equivalent (28.61-36.33) pg PT (9.4-12.1) Seconds INR APTT (26.0-36.0) Seconds VBG pH (7.32-7.42) pH Units VBG pCO2 (41-51) mmHg VBG pO2 (25-40) mmHg VBG HCO3 (21-27) mEq/L Sodium (136-145) mEq/L Potassium (3.5-4.5) mEq/L Chloride (98-109) mEq/L Carbon Dioxide (19-29) mEq/L BUN (8-26) mg/dL Creatinine (0.72-1.25) mg/dL Est GFR ( Amer) (> 60) Est GFR (Non-Af Amer) (> 60) BUN/Creatinine Ratio (6-26) Glucose (70-99) mg/dL POC Glucose 433 H* 530 H* 439 H* (58-89) Est Mean Plasma Glucose mg/dl Hemoglobin A1c ( - 5.6) % Serum Osmolality (280-300) mOsm/kg Calculated Osmolality (280-300) Lactic Acid (0.5-2.2) mmol/L Uric Acid (3.5-7.2) mg/dL Calcium (8.6-10.8) mg/dL Ionized Calcium (1.15-1.35) mmol/L Phosphorus (2.3-4.7) mg/dL Magnesium (1.6-2.6) mg/dL Iron (65-175) mcg/dL % Saturation (20-55) % Transferrin (174-364) mg/dL Ferritin (22-275) ng/ml Total Bilirubin (0.2-1.2) mg/dL Direct Bilirubin (0.0-0.5) mg/dL Indirect Bilirubin (0.0-1.2) mg/dL AST (5-34) Units/L ALT (0-55) Units/L Alkaline Phosphatase (38-126) Units/L Ammonia (18-72) mcmol/L Lactate Dehydrogenase (159-327) Units/L Creatine Kinase (30-200) Units/L Troponin I (0-0.03) ng/mL Prot Electrophor EER Serum Total Protein (6.0-8.3) g/dL Total Protein (PEP) (6.00-8.30) g/dL Albumin (3.5-5.0) g/dL Albumin (PEP) (3.75-5.01) g/dL Globulin (2.4-3.5) g/dL Albumin/Globulin Ratio (1.1-2.2) Dcbux-7-Aqqtxzrry (0.19-0.46) g/dL Lzjtb-9-Bocbwfjvl (0.48-1.05) g/dL Beta Globulins (0.48-1.10) g/dL Gamma Globulins (0.62-1.51) g/dL PEP Interpretation Triglycerides (< 150) mg/dL Cholesterol (< 200) mg/dL LDL Cholesterol, Calc (0-99) mg/dL VLDL Cholesterol, Calc (< 31) mg/dL HDL Cholesterol (40-59) mg/dL Cholesterol/HDL Ratio (0-4.9) Amylase (25-125) Units/L Lipase (8-78) Units/L Vitamin B12 (213-816) pg/mL Folate (7.0-31.4) ng/mL Procalcitonin (<=0.10) ng/mL TSH (0.350-4.840) mcIU/mL Random Cortisol mcg/dl Serum Immunofix Reflex Urine Color (Yellow) Urine Clarity (Clear) Urine pH (5.0-8.0) pH Units Ur Specific [place] (1.010-1.025) Urine Protein (Neg-Trace) mg/dL Urine Glucose (UA) (Normal) mg/dL Urine Ketones (Negative) mg/dL Urine Blood (Negative) Urine Nitrite (Negative) Urine Bilirubin (Negative) Urine Urobilinogen (Normal) mg/dL Ur Leukocyte Esterase (Negative) Urine Microscopic RBC (0-3) per hpf Urine Microscopic WBC (0-3) per hpf Ur Eosinophil Smear (None Seen) % Ur Squamous Epith Cells (None-Few) per lpf Urine Bacteria (None-Few) per hpf Hyaline Casts (None-Few) per lpf Ur Culture Indicated? (NO) Urine Osmolality (300-1090) mOsm/kg Urine Creatinine mg/dL Urine Microalbumin mg/L Microalb/Creat Ratio (0-30) Protein/Creatinin Ratio (0-0.20) mg/mg Urine Sodium mEq/L Urine Urea Nitrogen mg/dL Urine Total Protein (1-14) mg/dL Stool Occult Blood (Negative) Urine Opiates Screen (Axrtec=931) ng/mL Ur Barbiturates Screen (Vwobxy=055) ng/mL Ur Phencyclidine Scrn (Cutoff=25) ng/mL Ur Amphetamines Screen (Wlzhwg=1526) ng/mL U Benzodiazepines Scrn (Recngf=489) ng/mL Urine Cocaine Screen (Cutoff= 300) ng/mL U Marijuana (THC) Screen (Cutoff = 50) ng/mL IgG (768-1632) mg/dL IgA (68-408) mg/dL IgM (35-263) mg/dL F-Actin IgG Antibody (0-19) Units Smooth Muscle Ab Titer (<1:20) Complement C3 (88-201) mg/dL Complement C4 (10-40) mg/dL Free [place] LC, Quant (0.33-1.94) mg/dL Free [place] LC, Quant (0.57-2.63) mg/dL Free [place]/Lambda Ratio (0.26-1.65) Hepatitis A IgM Ab (Nonreactive) Hep Bs Antigen (Nonreactive) Hep B Core IgM Ab (Nonreactive) Hepatitis C Ab Screen (Nonreactive) Anti-Streptolysin O Ab (0-330) IU/mL Specimen Rejected Blood Type Antibody Screen Crossmatch 08/13/16 08/13/16 08/13/16 Range/Units 17:31 18:43 19:56 WBC (4.3-11.1) K/mcL RBC (4.19-5.50) M/mcL Hgb (12.9-16.9) g/dL Hct (37.5-50.1) % MCV (83.0-100.0) fL MCH (28.0-33.3) pg MCHC (31.6-35.5) g/dL RDW (11.5-14.5) % Plt Count (140-400) K/mcL MPV (9.4-12.4) fL Reticulocyte # (0.05-0.10) M/mcL Immature Gran % (0-4) % Seg Neutrophils % % Lymphocytes % % Monocytes % % Eosinophils % % Basophils % % Neutrophils # (1.6-8.9) K/mcL Lymphocytes # (0.6-4.6) K/mcL Monocytes # (0.0-1.3) K/mcL Eosinophils # (0.0-0.6) K/mcL Basophils # (0.0-0.2) K/mcL Nucleated RBCs/100 WBC (0) /100 WBC Reactive Lymphocytes (Not Present) Platelet Estimate (Normal) Immature Plt Fraction (1.1-6.1) % Polychromasia (Not Present) Anisocytosis (Not Present) Microcytosis (Not Present) Percent Retic (1.6-2.8) % Immature Retic Fraction (11.0-38.0) % Retic Hgb Equivalent (28.61-36.33) pg PT (9.4-12.1) Seconds INR APTT (26.0-36.0) Seconds VBG pH (7.32-7.42) pH Units VBG pCO2 (41-51) mmHg VBG pO2 (25-40) mmHg VBG HCO3 (21-27) mEq/L Sodium (136-145) mEq/L Potassium (3.5-4.5) mEq/L Chloride (98-109) mEq/L Carbon Dioxide (19-29) mEq/L BUN (8-26) mg/dL Creatinine (0.72-1.25) mg/dL Est GFR ( Amer) (> 60) Est GFR (Non-Af Amer) (> 60) BUN/Creatinine Ratio (6-26) Glucose (70-99) mg/dL POC Glucose 395 H 396 H 346 H (58-89) Est Mean Plasma Glucose mg/dl Hemoglobin A1c ( - 5.6) % Serum Osmolality (280-300) mOsm/kg Calculated Osmolality (280-300) Lactic Acid (0.5-2.2) mmol/L Uric Acid (3.5-7.2) mg/dL Calcium (8.6-10.8) mg/dL Ionized Calcium (1.15-1.35) mmol/L Phosphorus (2.3-4.7) mg/dL Magnesium (1.6-2.6) mg/dL Iron (65-175) mcg/dL % Saturation (20-55) % Transferrin (174-364) mg/dL Ferritin (22-275) ng/ml Total Bilirubin (0.2-1.2) mg/dL Direct Bilirubin (0.0-0.5) mg/dL Indirect Bilirubin (0.0-1.2) mg/dL AST (5-34) Units/L ALT (0-55) Units/L Alkaline Phosphatase (38-126) Units/L Ammonia (18-72) mcmol/L Lactate Dehydrogenase (159-327) Units/L Creatine Kinase (30-200) Units/L Troponin I (0-0.03) ng/mL Prot Electrophor EER Serum Total Protein (6.0-8.3) g/dL Total Protein (PEP) (6.00-8.30) g/dL Albumin (3.5-5.0) g/dL Albumin (PEP) (3.75-5.01) g/dL Globulin (2.4-3.5) g/dL Albumin/Globulin Ratio (1.1-2.2) Zirpv-6-Dsfmaiqty (0.19-0.46) g/dL Mcspn-3-Bygodyoel (0.48-1.05) g/dL Beta Globulins (0.48-1.10) g/dL Gamma Globulins (0.62-1.51) g/dL PEP Interpretation Triglycerides (< 150) mg/dL Cholesterol (< 200) mg/dL LDL Cholesterol, Calc (0-99) mg/dL VLDL Cholesterol, Calc (< 31) mg/dL HDL Cholesterol (40-59) mg/dL Cholesterol/HDL Ratio (0-4.9) Amylase (25-125) Units/L Lipase (8-78) Units/L Vitamin B12 (213-816) pg/mL Folate (7.0-31.4) ng/mL Procalcitonin (<=0.10) ng/mL TSH (0.350-4.840) mcIU/mL Random Cortisol mcg/dl Serum Immunofix Reflex Urine Color (Yellow) Urine Clarity (Clear) Urine pH (5.0-8.0) pH Units Ur Specific [place] (1.010-1.025) Urine Protein (Neg-Trace) mg/dL Urine Glucose (UA) (Normal) mg/dL Urine Ketones (Negative) mg/dL Urine Blood (Negative) Urine Nitrite (Negative) Urine Bilirubin (Negative) Urine Urobilinogen (Normal) mg/dL Ur Leukocyte Esterase (Negative) Urine Microscopic RBC (0-3) per hpf Urine Microscopic WBC (0-3) per hpf Ur Eosinophil Smear (None Seen) % Ur Squamous Epith Cells (None-Few) per lpf Urine Bacteria (None-Few) per hpf Hyaline Casts (None-Few) per lpf Ur Culture Indicated? (NO) Urine Osmolality (300-1090) mOsm/kg Urine Creatinine mg/dL Urine Microalbumin mg/L Microalb/Creat Ratio (0-30) Protein/Creatinin Ratio (0-0.20) mg/mg Urine Sodium mEq/L Urine Urea Nitrogen mg/dL Urine Total Protein (1-14) mg/dL Stool Occult Blood (Negative) Urine Opiates Screen (Ofpqbk=493) ng/mL Ur Barbiturates Screen (Kukuno=784) ng/mL Ur Phencyclidine Scrn (Cutoff=25) ng/mL Ur Amphetamines Screen (Njwbxs=0745) ng/mL U Benzodiazepines Scrn (Fbumrl=841) ng/mL Urine Cocaine Screen (Cutoff= 300) ng/mL U Marijuana (THC) Screen (Cutoff = 50) ng/mL IgG (768-1632) mg/dL IgA (68-408) mg/dL IgM (35-263) mg/dL F-Actin IgG Antibody (0-19) Units Smooth Muscle Ab Titer (<1:20) Complement C3 (88-201) mg/dL Complement C4 (10-40) mg/dL Free [place] LC, Quant (0.33-1.94) mg/dL Free Lambda LC, Quant (0.57-2.63) mg/dL Free [place]/Lambda Ratio (0.26-1.65) Hepatitis A IgM Ab (Nonreactive) Hep Bs Antigen (Nonreactive) Hep B Core IgM Ab (Nonreactive) Hepatitis C Ab Screen (Nonreactive) Anti-Streptolysin O Ab (0-330) IU/mL Specimen Rejected Blood Type Antibody Screen Crossmatch 08/13/16 08/13/16 08/13/16 Range/Units 21:01 22:06 23:02 WBC (4.3-11.1) K/mcL RBC (4.19-5.50) M/mcL Hgb (12.9-16.9) g/dL Hct (37.5-50.1) % MCV (83.0-100.0) fL MCH (28.0-33.3) pg MCHC (31.6-35.5) g/dL RDW (11.5-14.5) % Plt Count (140-400) K/mcL MPV (9.4-12.4) fL Reticulocyte # (0.05-0.10) M/mcL Immature Gran % (0-4) % Seg Neutrophils % % Lymphocytes % % Monocytes % % Eosinophils % % Basophils % % Neutrophils # (1.6-8.9) K/mcL Lymphocytes # (0.6-4.6) K/mcL Monocytes # (0.0-1.3) K/mcL Eosinophils # (0.0-0.6) K/mcL Basophils # (0.0-0.2) K/mcL Nucleated RBCs/100 WBC (0) /100 WBC Reactive Lymphocytes (Not Present) Platelet Estimate (Normal) Immature Plt Fraction (1.1-6.1) % Polychromasia (Not Present) Anisocytosis (Not Present) Microcytosis (Not Present) Percent Retic (1.6-2.8) % Immature Retic Fraction (11.0-38.0) % Retic Hgb Equivalent (28.61-36.33) pg PT (9.4-12.1) Seconds INR APTT (26.0-36.0) Seconds VBG pH (7.32-7.42) pH Units VBG pCO2 (41-51) mmHg VBG pO2 (25-40) mmHg VBG HCO3 (21-27) mEq/L Sodium (136-145) mEq/L Potassium (3.5-4.5) mEq/L Chloride (98-109) mEq/L Carbon Dioxide (19-29) mEq/L BUN (8-26) mg/dL Creatinine (0.72-1.25) mg/dL Est GFR ( Amer) (> 60) Est GFR (Non-Af Amer) (> 60) BUN/Creatinine Ratio (6-26) Glucose (70-99) mg/dL POC Glucose 324 H 258 H 312 H (58-89) Est Mean Plasma Glucose mg/dl Hemoglobin A1c ( - 5.6) % Serum Osmolality (280-300) mOsm/kg Calculated Osmolality (280-300) Lactic Acid (0.5-2.2) mmol/L Uric Acid (3.5-7.2) mg/dL Calcium (8.6-10.8) mg/dL Ionized Calcium (1.15-1.35) mmol/L Phosphorus (2.3-4.7) mg/dL Magnesium (1.6-2.6) mg/dL Iron (65-175) mcg/dL % Saturation (20-55) % Transferrin (174-364) mg/dL Ferritin (22-275) ng/ml Total Bilirubin (0.2-1.2) mg/dL Direct Bilirubin (0.0-0.5) mg/dL Indirect Bilirubin (0.0-1.2) mg/dL AST (5-34) Units/L ALT (0-55) Units/L Alkaline Phosphatase (38-126) Units/L Ammonia (18-72) mcmol/L Lactate Dehydrogenase (159-327) Units/L Creatine Kinase (30-200) Units/L Troponin I (0-0.03) ng/mL Prot Electrophor EER Serum Total Protein (6.0-8.3) g/dL Total Protein (PEP) (6.00-8.30) g/dL Albumin (3.5-5.0) g/dL Albumin (PEP) (3.75-5.01) g/dL Globulin (2.4-3.5) g/dL Albumin/Globulin Ratio (1.1-2.2) Guqft-6-Vrhoktfqi (0.19-0.46) g/dL Lzlbx-0-Cpxbfekhc (0.48-1.05) g/dL Beta Globulins (0.48-1.10) g/dL Gamma Globulins (0.62-1.51) g/dL PEP Interpretation Triglycerides (< 150) mg/dL Cholesterol (< 200) mg/dL LDL Cholesterol, Calc (0-99) mg/dL VLDL Cholesterol, Calc (< 31) mg/dL HDL Cholesterol (40-59) mg/dL Cholesterol/HDL Ratio (0-4.9) Amylase (25-125) Units/L Lipase (8-78) Units/L Vitamin B12 (213-816) pg/mL Folate (7.0-31.4) ng/mL Procalcitonin (<=0.10) ng/mL TSH (0.350-4.840) mcIU/mL Random Cortisol mcg/dl Serum Immunofix Reflex Urine Color (Yellow) Urine Clarity (Clear) Urine pH (5.0-8.0) pH Units Ur Specific [place] (1.010-1.025) Urine Protein (Neg-Trace) mg/dL Urine Glucose (UA) (Normal) mg/dL Urine Ketones (Negative) mg/dL Urine Blood (Negative) Urine Nitrite (Negative) Urine Bilirubin (Negative) Urine Urobilinogen (Normal) mg/dL Ur Leukocyte Esterase (Negative) Urine Microscopic RBC (0-3) per hpf Urine Microscopic WBC (0-3) per hpf Ur Eosinophil Smear (None Seen) % Ur Squamous Epith Cells (None-Few) per lpf Urine Bacteria (None-Few) per hpf Hyaline Casts (None-Few) per lpf Ur Culture Indicated? (NO) Urine Osmolality (300-1090) mOsm/kg Urine Creatinine mg/dL Urine Microalbumin mg/L Microalb/Creat Ratio (0-30) Protein/Creatinin Ratio (0-0.20) mg/mg Urine Sodium mEq/L Urine Urea Nitrogen mg/dL Urine Total Protein (1-14) mg/dL Stool Occult Blood (Negative) Urine Opiates Screen (Kwtgqp=978) ng/mL Ur Barbiturates Screen (Klfwoe=470) ng/mL Ur Phencyclidine Scrn (Cutoff=25) ng/mL Ur Amphetamines Screen (Jdzckt=4602) ng/mL U Benzodiazepines Scrn (Bqnasd=100) ng/mL Urine Cocaine Screen (Cutoff= 300) ng/mL U Marijuana (THC) Screen (Cutoff = 50) ng/mL IgG (768-1632) mg/dL IgA (68-408) mg/dL IgM (35-263) mg/dL F-Actin IgG Antibody (0-19) Units Smooth Muscle Ab Titer (<1:20) Complement C3 (88-201) mg/dL Complement C4 (10-40) mg/dL Free [place] LC, Quant (0.33-1.94) mg/dL Free [place] LC, Quant (0.57-2.63) mg/dL Free [place]/Lambda Ratio (0.26-1.65) Hepatitis A IgM Ab (Nonreactive) Hep Bs Antigen (Nonreactive) Hep B Core IgM Ab (Nonreactive) Hepatitis C Ab Screen (Nonreactive) Anti-Streptolysin O Ab (0-330) IU/mL Specimen Rejected Blood Type Antibody Screen Crossmatch 08/14/16 08/14/16 08/14/16 Range/Units 00:03 01:03 01:57 WBC (4.3-11.1) K/mcL RBC (4.19-5.50) M/mcL Hgb (12.9-16.9) g/dL Hct (37.5-50.1) % MCV (83.0-100.0) fL MCH (28.0-33.3) pg MCHC (31.6-35.5) g/dL RDW (11.5-14.5) % Plt Count (140-400) K/mcL MPV (9.4-12.4) fL Reticulocyte # (0.05-0.10) M/mcL Immature Gran % (0-4) % Seg Neutrophils % % Lymphocytes % % Monocytes % % Eosinophils % % Basophils % % Neutrophils # (1.6-8.9) K/mcL Lymphocytes # (0.6-4.6) K/mcL Monocytes # (0.0-1.3) K/mcL Eosinophils # (0.0-0.6) K/mcL Basophils # (0.0-0.2) K/mcL Nucleated RBCs/100 WBC (0) /100 WBC Reactive Lymphocytes (Not Present) Platelet Estimate (Normal) Immature Plt Fraction (1.1-6.1) % Polychromasia (Not Present) Anisocytosis (Not Present) Microcytosis (Not Present) Percent Retic (1.6-2.8) % Immature Retic Fraction (11.0-38.0) % Retic Hgb Equivalent (28.61-36.33) pg PT (9.4-12.1) Seconds INR APTT (26.0-36.0) Seconds VBG pH (7.32-7.42) pH Units VBG pCO2 (41-51) mmHg VBG pO2 (25-40) mmHg VBG HCO3 (21-27) mEq/L Sodium (136-145) mEq/L Potassium (3.5-4.5) mEq/L Chloride (98-109) mEq/L Carbon Dioxide (19-29) mEq/L BUN (8-26) mg/dL Creatinine (0.72-1.25) mg/dL Est GFR ( Amer) (> 60) Est GFR (Non-Af Amer) (> 60) BUN/Creatinine Ratio (6-26) Glucose (70-99) mg/dL POC Glucose 328 H 318 H 268 H (58-89) Est Mean Plasma Glucose mg/dl Hemoglobin A1c ( - 5.6) % Serum Osmolality (280-300) mOsm/kg Calculated Osmolality (280-300) Lactic Acid (0.5-2.2) mmol/L Uric Acid (3.5-7.2) mg/dL Calcium (8.6-10.8) mg/dL Ionized Calcium (1.15-1.35) mmol/L Phosphorus (2.3-4.7) mg/dL Magnesium (1.6-2.6) mg/dL Iron (65-175) mcg/dL % Saturation (20-55) % Transferrin (174-364) mg/dL Ferritin (22-275) ng/ml Total Bilirubin (0.2-1.2) mg/dL Direct Bilirubin (0.0-0.5) mg/dL Indirect Bilirubin (0.0-1.2) mg/dL AST (5-34) Units/L ALT (0-55) Units/L Alkaline Phosphatase (38-126) Units/L Ammonia (18-72) mcmol/L Lactate Dehydrogenase (159-327) Units/L Creatine Kinase (30-200) Units/L Troponin I (0-0.03) ng/mL Prot Electrophor EER Serum Total Protein (6.0-8.3) g/dL Total Protein (PEP) (6.00-8.30) g/dL Albumin (3.5-5.0) g/dL Albumin (PEP) (3.75-5.01) g/dL Globulin (2.4-3.5) g/dL Albumin/Globulin Ratio (1.1-2.2) Ceaoy-3-Sslkuoupo (0.19-0.46) g/dL Isecr-4-Nefsmromb (0.48-1.05) g/dL Beta Globulins (0.48-1.10) g/dL Gamma Globulins (0.62-1.51) g/dL PEP Interpretation Triglycerides (< 150) mg/dL Cholesterol (< 200) mg/dL LDL Cholesterol, Calc (0-99) mg/dL VLDL Cholesterol, Calc (< 31) mg/dL HDL Cholesterol (40-59) mg/dL Cholesterol/HDL Ratio (0-4.9) Amylase (25-125) Units/L Lipase (8-78) Units/L Vitamin B12 (213-816) pg/mL Folate (7.0-31.4) ng/mL Procalcitonin (<=0.10) ng/mL TSH (0.350-4.840) mcIU/mL Random Cortisol mcg/dl Serum Immunofix Reflex Urine Color (Yellow) Urine Clarity (Clear) Urine pH (5.0-8.0) pH Units Ur Specific [place] (1.010-1.025) Urine Protein (Neg-Trace) mg/dL Urine Glucose (UA) (Normal) mg/dL Urine Ketones (Negative) mg/dL Urine Blood (Negative) Urine Nitrite (Negative) Urine Bilirubin (Negative) Urine Urobilinogen (Normal) mg/dL Ur Leukocyte Esterase (Negative) Urine Microscopic RBC (0-3) per hpf Urine Microscopic WBC (0-3) per hpf Ur Eosinophil Smear (None Seen) % Ur Squamous Epith Cells (None-Few) per lpf Urine Bacteria (None-Few) per hpf Hyaline Casts (None-Few) per lpf Ur Culture Indicated? (NO) Urine Osmolality (300-1090) mOsm/kg Urine Creatinine mg/dL Urine Microalbumin mg/L Microalb/Creat Ratio (0-30) Protein/Creatinin Ratio (0-0.20) mg/mg Urine Sodium mEq/L Urine Urea Nitrogen mg/dL Urine Total Protein (1-14) mg/dL Stool Occult Blood (Negative) Urine Opiates Screen (Iimdmp=773) ng/mL Ur Barbiturates Screen (Auerjp=103) ng/mL Ur Phencyclidine Scrn (Cutoff=25) ng/mL Ur Amphetamines Screen (Jonsqx=4859) ng/mL U Benzodiazepines Scrn (Ficjry=898) ng/mL Urine Cocaine Screen (Cutoff= 300) ng/mL U Marijuana (THC) Screen (Cutoff = 50) ng/mL IgG (768-1632) mg/dL IgA (68-408) mg/dL IgM (35-263) mg/dL F-Actin IgG Antibody (0-19) Units Smooth Muscle Ab Titer (<1:20) Complement C3 (88-201) mg/dL Complement C4 (10-40) mg/dL Free [place] LC, Quant (0.33-1.94) mg/dL Free [place] LC, Quant (0.57-2.63) mg/dL Free [place]/Lambda Ratio (0.26-1.65) Hepatitis A IgM Ab (Nonreactive) Hep Bs Antigen (Nonreactive) Hep B Core IgM Ab (Nonreactive) Hepatitis C Ab Screen (Nonreactive) Anti-Streptolysin O Ab (0-330) IU/mL Specimen Rejected Blood Type Antibody Screen Crossmatch 08/14/16 08/14/16 08/14/16 Range/Units 03:02 04:02 04:13 WBC 2.7 L (4.3-11.1) K/mcL RBC 3.46 L (4.19-5.50) M/mcL Hgb 8.5 L (12.9-16.9) g/dL Hct 27.1 L (37.5-50.1) % MCV 78.3 L (83.0-100.0) fL MCH 24.6 L (28.0-33.3) pg MCHC 31.4 L (31.6-35.5) g/dL RDW 15.9 H (11.5-14.5) % Plt Count 79 L (140-400) K/mcL MPV 10.6 (9.4-12.4) fL Reticulocyte # (0.05-0.10) M/mcL Immature Gran % 0.4 (0-4) % Seg Neutrophils % 48.2 % Lymphocytes % 34.1 % Monocytes % 13.5 % Eosinophils % 3.4 % Basophils % 0.4 % Neutrophils # 1.3 L (1.6-8.9) K/mcL Lymphocytes # 0.9 (0.6-4.6) K/mcL Monocytes # 0.4 (0.0-1.3) K/mcL Eosinophils # 0.1 (0.0-0.6) K/mcL Basophils # 0.0 (0.0-0.2) K/mcL Nucleated RBCs/100 WBC (0) /100 WBC Reactive Lymphocytes (Not Present) Platelet Estimate Decreased L (Normal) Immature Plt Fraction 7.2 H (1.1-6.1) % Polychromasia (Not Present) Anisocytosis (Not Present) Microcytosis (Not Present) Percent Retic (1.6-2.8) % Immature Retic Fraction (11.0-38.0) % Retic Hgb Equivalent (28.61-36.33) pg PT (9.4-12.1) Seconds INR APTT (26.0-36.0) Seconds VBG pH (7.32-7.42) pH Units VBG pCO2 (41-51) mmHg VBG pO2 (25-40) mmHg VBG HCO3 (21-27) mEq/L Sodium (136-145) mEq/L Potassium (3.5-4.5) mEq/L Chloride (98-109) mEq/L Carbon Dioxide (19-29) mEq/L BUN (8-26) mg/dL Creatinine (0.72-1.25) mg/dL Est GFR ( Amer) (> 60) Est GFR (Non-Af Amer) (> 60) BUN/Creatinine Ratio (6-26) Glucose (70-99) mg/dL POC Glucose 217 H 159 H (58-89) Est Mean Plasma Glucose mg/dl Hemoglobin A1c ( - 5.6) % Serum Osmolality (280-300) mOsm/kg Calculated Osmolality (280-300) Lactic Acid (0.5-2.2) mmol/L Uric Acid (3.5-7.2) mg/dL Calcium (8.6-10.8) mg/dL Ionized Calcium (1.15-1.35) mmol/L Phosphorus (2.3-4.7) mg/dL Magnesium (1.6-2.6) mg/dL Iron (65-175) mcg/dL % Saturation (20-55) % Transferrin (174-364) mg/dL Ferritin (22-275) ng/ml Total Bilirubin (0.2-1.2) mg/dL Direct Bilirubin (0.0-0.5) mg/dL Indirect Bilirubin (0.0-1.2) mg/dL AST (5-34) Units/L ALT (0-55) Units/L Alkaline Phosphatase (38-126) Units/L Ammonia (18-72) mcmol/L Lactate Dehydrogenase (159-327) Units/L Creatine Kinase (30-200) Units/L Troponin I (0-0.03) ng/mL Prot Electrophor EER Serum Total Protein (6.0-8.3) g/dL Total Protein (PEP) (6.00-8.30) g/dL Albumin (3.5-5.0) g/dL Albumin (PEP) (3.75-5.01) g/dL Globulin (2.4-3.5) g/dL Albumin/Globulin Ratio (1.1-2.2) Qdsur-3-Ukhrngsog (0.19-0.46) g/dL Psntz-3-Mfbjmlkws (0.48-1.05) g/dL Beta Globulins (0.48-1.10) g/dL Gamma Globulins (0.62-1.51) g/dL PEP Interpretation Triglycerides (< 150) mg/dL Cholesterol (< 200) mg/dL LDL Cholesterol, Calc (0-99) mg/dL VLDL Cholesterol, Calc (< 31) mg/dL HDL Cholesterol (40-59) mg/dL Cholesterol/HDL Ratio (0-4.9) Amylase (25-125) Units/L Lipase (8-78) Units/L Vitamin B12 (213-816) pg/mL Folate (7.0-31.4) ng/mL Procalcitonin (<=0.10) ng/mL TSH (0.350-4.840) mcIU/mL Random Cortisol mcg/dl Serum Immunofix Reflex Urine Color (Yellow) Urine Clarity (Clear) Urine pH (5.0-8.0) pH Units Ur Specific [place] (1.010-1.025) Urine Protein (Neg-Trace) mg/dL Urine Glucose (UA) (Normal) mg/dL Urine Ketones (Negative) mg/dL Urine Blood (Negative) Urine Nitrite (Negative) Urine Bilirubin (Negative) Urine Urobilinogen (Normal) mg/dL Ur Leukocyte Esterase (Negative) Urine Microscopic RBC (0-3) per hpf Urine Microscopic WBC (0-3) per hpf Ur Eosinophil Smear (None Seen) % Ur Squamous Epith Cells (None-Few) per lpf Urine Bacteria (None-Few) per hpf Hyaline Casts (None-Few) per lpf Ur Culture Indicated? (NO) Urine Osmolality (300-1090) mOsm/kg Urine Creatinine mg/dL Urine Microalbumin mg/L Microalb/Creat Ratio (0-30) Protein/Creatinin Ratio (0-0.20) mg/mg Urine Sodium mEq/L Urine Urea Nitrogen mg/dL Urine Total Protein (1-14) mg/dL Stool Occult Blood (Negative) Urine Opiates Screen (Posfmm=876) ng/mL Ur Barbiturates Screen (Lkrrny=085) ng/mL Ur Phencyclidine Scrn (Cutoff=25) ng/mL Ur Amphetamines Screen (Mnwnez=9616) ng/mL U Benzodiazepines Scrn (Tjvzgh=151) ng/mL Urine Cocaine Screen (Cutoff= 300) ng/mL U Marijuana (THC) Screen (Cutoff = 50) ng/mL IgG (768-1632) mg/dL IgA (68-408) mg/dL IgM (35-263) mg/dL F-Actin IgG Antibody (0-19) Units Smooth Muscle Ab Titer (<1:20) Complement C3 (88-201) mg/dL Complement C4 (10-40) mg/dL Free [place] LC, Quant (0.33-1.94) mg/dL Free Lambda LC, Quant (0.57-2.63) mg/dL Free [place]/Lambda Ratio (0.26-1.65) Hepatitis A IgM Ab (Nonreactive) Hep Bs Antigen (Nonreactive) Hep B Core IgM Ab (Nonreactive) Hepatitis C Ab Screen (Nonreactive) Anti-Streptolysin O Ab (0-330) IU/mL Specimen Rejected Blood Type Antibody Screen Crossmatch 08/14/16 08/14/16 08/14/16 Range/Units 04:13 05:14 05:59 WBC (4.3-11.1) K/mcL RBC (4.19-5.50) M/mcL Hgb (12.9-16.9) g/dL Hct (37.5-50.1) % MCV (83.0-100.0) fL MCH (28.0-33.3) pg MCHC (31.6-35.5) g/dL RDW (11.5-14.5) % Plt Count (140-400) K/mcL MPV (9.4-12.4) fL Reticulocyte # (0.05-0.10) M/mcL Immature Gran % (0-4) % Seg Neutrophils % % Lymphocytes % % Monocytes % % Eosinophils % % Basophils % % Neutrophils # (1.6-8.9) K/mcL Lymphocytes # (0.6-4.6) K/mcL Monocytes # (0.0-1.3) K/mcL Eosinophils # (0.0-0.6) K/mcL Basophils # (0.0-0.2) K/mcL Nucleated RBCs/100 WBC (0) /100 WBC Reactive Lymphocytes (Not Present) Platelet Estimate (Normal) Immature Plt Fraction (1.1-6.1) % Polychromasia (Not Present) Anisocytosis (Not Present) Microcytosis (Not Present) Percent Retic (1.6-2.8) % Immature Retic Fraction (11.0-38.0) % Retic Hgb Equivalent (28.61-36.33) pg PT (9.4-12.1) Seconds INR APTT (26.0-36.0) Seconds VBG pH (7.32-7.42) pH Units VBG pCO2 (41-51) mmHg VBG pO2 (25-40) mmHg VBG HCO3 (21-27) mEq/L Sodium 131 L (136-145) mEq/L Potassium 5.0 H (3.5-4.5) mEq/L Chloride 101 (98-109) mEq/L Carbon Dioxide 25 (19-29) mEq/L BUN 16 (8-26) mg/dL Creatinine 0.97 (0.72-1.25) mg/dL Est GFR ( Amer) > 60 (> 60) Est GFR (Non-Af Amer) > 60 (> 60) BUN/Creatinine Ratio 16 (6-26) Glucose 164 H (70-99) mg/dL POC Glucose 128 H 191 H (58-89) Est Mean Plasma Glucose mg/dl Hemoglobin A1c ( - 5.6) % Serum Osmolality (280-300) mOsm/kg Calculated Osmolality 277 L (280-300) Lactic Acid (0.5-2.2) mmol/L Uric Acid (3.5-7.2) mg/dL Calcium 9.1 (8.6-10.8) mg/dL Ionized Calcium (1.15-1.35) mmol/L Phosphorus (2.3-4.7) mg/dL Magnesium 1.7 (1.6-2.6) mg/dL Iron (65-175) mcg/dL % Saturation (20-55) % Transferrin (174-364) mg/dL Ferritin (22-275) ng/ml Total Bilirubin (0.2-1.2) mg/dL Direct Bilirubin (0.0-0.5) mg/dL Indirect Bilirubin (0.0-1.2) mg/dL AST (5-34) Units/L ALT (0-55) Units/L Alkaline Phosphatase (38-126) Units/L Ammonia (18-72) mcmol/L Lactate Dehydrogenase (159-327) Units/L Creatine Kinase (30-200) Units/L Troponin I (0-0.03) ng/mL Prot Electrophor EER Serum Total Protein (6.0-8.3) g/dL Total Protein (PEP) (6.00-8.30) g/dL Albumin (3.5-5.0) g/dL Albumin (PEP) (3.75-5.01) g/dL Globulin (2.4-3.5) g/dL Albumin/Globulin Ratio (1.1-2.2) Xwzgf-5-Spngifzcw (0.19-0.46) g/dL Ucreh-8-Hlpcrpvzp (0.48-1.05) g/dL Beta Globulins (0.48-1.10) g/dL Gamma Globulins (0.62-1.51) g/dL PEP Interpretation Triglycerides (< 150) mg/dL Cholesterol (< 200) mg/dL LDL Cholesterol, Calc (0-99) mg/dL VLDL Cholesterol, Calc (< 31) mg/dL HDL Cholesterol (40-59) mg/dL Cholesterol/HDL Ratio (0-4.9) Amylase (25-125) Units/L Lipase (8-78) Units/L Vitamin B12 (213-816) pg/mL Folate (7.0-31.4) ng/mL Procalcitonin (<=0.10) ng/mL TSH (0.350-4.840) mcIU/mL Random Cortisol mcg/dl Serum Immunofix Reflex Urine Color (Yellow) Urine Clarity (Clear) Urine pH (5.0-8.0) pH Units Ur Specific [place] (1.010-1.025) Urine Protein (Neg-Trace) mg/dL Urine Glucose (UA) (Normal) mg/dL Urine Ketones (Negative) mg/dL Urine Blood (Negative) Urine Nitrite (Negative) Urine Bilirubin (Negative) Urine Urobilinogen (Normal) mg/dL Ur Leukocyte Esterase (Negative) Urine Microscopic RBC (0-3) per hpf Urine Microscopic WBC (0-3) per hpf Ur Eosinophil Smear (None Seen) % Ur Squamous Epith Cells (None-Few) per lpf Urine Bacteria (None-Few) per hpf Hyaline Casts (None-Few) per lpf Ur Culture Indicated? (NO) Urine Osmolality (300-1090) mOsm/kg Urine Creatinine mg/dL Urine Microalbumin mg/L Microalb/Creat Ratio (0-30) Protein/Creatinin Ratio (0-0.20) mg/mg Urine Sodium mEq/L Urine Urea Nitrogen mg/dL Urine Total Protein (1-14) mg/dL Stool Occult Blood (Negative) Urine Opiates Screen (Jkvasa=208) ng/mL Ur Barbiturates Screen (Voqeid=706) ng/mL Ur Phencyclidine Scrn (Cutoff=25) ng/mL Ur Amphetamines Screen (Eautvh=0794) ng/mL U Benzodiazepines Scrn (Emtivp=164) ng/mL Urine Cocaine Screen (Cutoff= 300) ng/mL U Marijuana (THC) Screen (Cutoff = 50) ng/mL IgG (768-1632) mg/dL IgA (68-408) mg/dL IgM (35-263) mg/dL F-Actin IgG Antibody (0-19) Units Smooth Muscle Ab Titer (<1:20) Complement C3 (88-201) mg/dL Complement C4 (10-40) mg/dL Free [place] LC, Quant (0.33-1.94) mg/dL Free [place] LC, Quant (0.57-2.63) mg/dL Free [place]/Lambda Ratio (0.26-1.65) Hepatitis A IgM Ab (Nonreactive) Hep Bs Antigen (Nonreactive) Hep B Core IgM Ab (Nonreactive) Hepatitis C Ab Screen (Nonreactive) Anti-Streptolysin O Ab (0-330) IU/mL Specimen Rejected Blood Type Antibody Screen Crossmatch 08/14/16 08/14/16 08/14/16 Range/Units 06:54 07:59 09:17 WBC (4.3-11.1) K/mcL RBC (4.19-5.50) M/mcL Hgb (12.9-16.9) g/dL Hct (37.5-50.1) % MCV (83.0-100.0) fL MCH (28.0-33.3) pg MCHC (31.6-35.5) g/dL RDW (11.5-14.5) % Plt Count (140-400) K/mcL MPV (9.4-12.4) fL Reticulocyte # (0.05-0.10) M/mcL Immature Gran % (0-4) % Seg Neutrophils % % Lymphocytes % % Monocytes % % Eosinophils % % Basophils % % Neutrophils # (1.6-8.9) K/mcL Lymphocytes # (0.6-4.6) K/mcL Monocytes # (0.0-1.3) K/mcL Eosinophils # (0.0-0.6) K/mcL Basophils # (0.0-0.2) K/mcL Nucleated RBCs/100 WBC (0) /100 WBC Reactive Lymphocytes (Not Present) Platelet Estimate (Normal) Immature Plt Fraction (1.1-6.1) % Polychromasia (Not Present) Anisocytosis (Not Present) Microcytosis (Not Present) Percent Retic (1.6-2.8) % Immature Retic Fraction (11.0-38.0) % Retic Hgb Equivalent (28.61-36.33) pg PT (9.4-12.1) Seconds INR APTT (26.0-36.0) Seconds VBG pH (7.32-7.42) pH Units VBG pCO2 (41-51) mmHg VBG pO2 (25-40) mmHg VBG HCO3 (21-27) mEq/L Sodium (136-145) mEq/L Potassium (3.5-4.5) mEq/L Chloride (98-109) mEq/L Carbon Dioxide (19-29) mEq/L BUN (8-26) mg/dL Creatinine (0.72-1.25) mg/dL Est GFR ( Amer) (> 60) Est GFR (Non-Af Amer) (> 60) BUN/Creatinine Ratio (6-26) Glucose (70-99) mg/dL POC Glucose 103 H 111 H 131 H (58-89) Est Mean Plasma Glucose mg/dl Hemoglobin A1c ( - 5.6) % Serum Osmolality (280-300) mOsm/kg Calculated Osmolality (280-300) Lactic Acid (0.5-2.2) mmol/L Uric Acid (3.5-7.2) mg/dL Calcium (8.6-10.8) mg/dL Ionized Calcium (1.15-1.35) mmol/L Phosphorus (2.3-4.7) mg/dL Magnesium (1.6-2.6) mg/dL Iron (65-175) mcg/dL % Saturation (20-55) % Transferrin (174-364) mg/dL Ferritin (22-275) ng/ml Total Bilirubin (0.2-1.2) mg/dL Direct Bilirubin (0.0-0.5) mg/dL Indirect Bilirubin (0.0-1.2) mg/dL AST (5-34) Units/L ALT (0-55) Units/L Alkaline Phosphatase (38-126) Units/L Ammonia (18-72) mcmol/L Lactate Dehydrogenase (159-327) Units/L Creatine Kinase (30-200) Units/L Troponin I (0-0.03) ng/mL Prot Electrophor EER Serum Total Protein (6.0-8.3) g/dL Total Protein (PEP) (6.00-8.30) g/dL Albumin (3.5-5.0) g/dL Albumin (PEP) (3.75-5.01) g/dL Globulin (2.4-3.5) g/dL Albumin/Globulin Ratio (1.1-2.2) Nlsos-1-Ueygjkssy (0.19-0.46) g/dL Dbkwd-4-Fjjqilwso (0.48-1.05) g/dL Beta Globulins (0.48-1.10) g/dL Gamma Globulins (0.62-1.51) g/dL PEP Interpretation Triglycerides (< 150) mg/dL Cholesterol (< 200) mg/dL LDL Cholesterol, Calc (0-99) mg/dL VLDL Cholesterol, Calc (< 31) mg/dL HDL Cholesterol (40-59) mg/dL Cholesterol/HDL Ratio (0-4.9) Amylase (25-125) Units/L Lipase (8-78) Units/L Vitamin B12 (213-816) pg/mL Folate (7.0-31.4) ng/mL Procalcitonin (<=0.10) ng/mL TSH (0.350-4.840) mcIU/mL Random Cortisol mcg/dl Serum Immunofix Reflex Urine Color (Yellow) Urine Clarity (Clear) Urine pH (5.0-8.0) pH Units Ur Specific [place] (1.010-1.025) Urine Protein (Neg-Trace) mg/dL Urine Glucose (UA) (Normal) mg/dL Urine Ketones (Negative) mg/dL Urine Blood (Negative) Urine Nitrite (Negative) Urine Bilirubin (Negative) Urine Urobilinogen (Normal) mg/dL Ur Leukocyte Esterase (Negative) Urine Microscopic RBC (0-3) per hpf Urine Microscopic WBC (0-3) per hpf Ur Eosinophil Smear (None Seen) % Ur Squamous Epith Cells (None-Few) per lpf Urine Bacteria (None-Few) per hpf Hyaline Casts (None-Few) per lpf Ur Culture Indicated? (NO) Urine Osmolality (300-1090) mOsm/kg Urine Creatinine mg/dL Urine Microalbumin mg/L Microalb/Creat Ratio (0-30) Protein/Creatinin Ratio (0-0.20) mg/mg Urine Sodium mEq/L Urine Urea Nitrogen mg/dL Urine Total Protein (1-14) mg/dL Stool Occult Blood (Negative) Urine Opiates Screen (Ohcqgg=806) ng/mL Ur Barbiturates Screen (Jyvnen=043) ng/mL Ur Phencyclidine Scrn (Cutoff=25) ng/mL Ur Amphetamines Screen (Kbqlfk=5534) ng/mL U Benzodiazepines Scrn (Umwohm=191) ng/mL Urine Cocaine Screen (Cutoff= 300) ng/mL U Marijuana (THC) Screen (Cutoff = 50) ng/mL IgG (768-1632) mg/dL IgA (68-408) mg/dL IgM (35-263) mg/dL F-Actin IgG Antibody (0-19) Units Smooth Muscle Ab Titer (<1:20) Complement C3 (88-201) mg/dL Complement C4 (10-40) mg/dL Free [place] LC, Quant (0.33-1.94) mg/dL Free [place] LC, Quant (0.57-2.63) mg/dL Free [place]/Lambda Ratio (0.26-1.65) Hepatitis A IgM Ab (Nonreactive) Hep Bs Antigen (Nonreactive) Hep B Core IgM Ab (Nonreactive) Hepatitis C Ab Screen (Nonreactive) Anti-Streptolysin O Ab (0-330) IU/mL Specimen Rejected Blood Type Antibody Screen Crossmatch 08/14/16 08/14/16 08/14/16 Range/Units 11:03 12:14 17:07 WBC (4.3-11.1) K/mcL RBC (4.19-5.50) M/mcL Hgb (12.9-16.9) g/dL Hct (37.5-50.1) % MCV (83.0-100.0) fL MCH (28.0-33.3) pg MCHC (31.6-35.5) g/dL RDW (11.5-14.5) % Plt Count (140-400) K/mcL MPV (9.4-12.4) fL Reticulocyte # (0.05-0.10) M/mcL Immature Gran % (0-4) % Seg Neutrophils % % Lymphocytes % % Monocytes % % Eosinophils % % Basophils % % Neutrophils # (1.6-8.9) K/mcL Lymphocytes # (0.6-4.6) K/mcL Monocytes # (0.0-1.3) K/mcL Eosinophils # (0.0-0.6) K/mcL Basophils # (0.0-0.2) K/mcL Nucleated RBCs/100 WBC (0) /100 WBC Reactive Lymphocytes (Not Present) Platelet Estimate (Normal) Immature Plt Fraction (1.1-6.1) % Polychromasia (Not Present) Anisocytosis (Not Present) Microcytosis (Not Present) Percent Retic (1.6-2.8) % Immature Retic Fraction (11.0-38.0) % Retic Hgb Equivalent (28.61-36.33) pg PT (9.4-12.1) Seconds INR APTT (26.0-36.0) Seconds VBG pH (7.32-7.42) pH Units VBG pCO2 (41-51) mmHg VBG pO2 (25-40) mmHg VBG HCO3 (21-27) mEq/L Sodium (136-145) mEq/L Potassium (3.5-4.5) mEq/L Chloride (98-109) mEq/L Carbon Dioxide (19-29) mEq/L BUN (8-26) mg/dL Creatinine (0.72-1.25) mg/dL Est GFR ( Amer) (> 60) Est GFR (Non-Af Amer) (> 60) BUN/Creatinine Ratio (6-26) Glucose (70-99) mg/dL POC Glucose 124 H 131 H 239 H (58-89) Est Mean Plasma Glucose mg/dl Hemoglobin A1c ( - 5.6) % Serum Osmolality (280-300) mOsm/kg Calculated Osmolality (280-300) Lactic Acid (0.5-2.2) mmol/L Uric Acid (3.5-7.2) mg/dL Calcium (8.6-10.8) mg/dL Ionized Calcium (1.15-1.35) mmol/L Phosphorus (2.3-4.7) mg/dL Magnesium (1.6-2.6) mg/dL Iron (65-175) mcg/dL % Saturation (20-55) % Transferrin (174-364) mg/dL Ferritin (22-275) ng/ml Total Bilirubin (0.2-1.2) mg/dL Direct Bilirubin (0.0-0.5) mg/dL Indirect Bilirubin (0.0-1.2) mg/dL AST (5-34) Units/L ALT (0-55) Units/L Alkaline Phosphatase (38-126) Units/L Ammonia (18-72) mcmol/L Lactate Dehydrogenase (159-327) Units/L Creatine Kinase (30-200) Units/L Troponin I (0-0.03) ng/mL Prot Electrophor EER Serum Total Protein (6.0-8.3) g/dL Total Protein (PEP) (6.00-8.30) g/dL Albumin (3.5-5.0) g/dL Albumin (PEP) (3.75-5.01) g/dL Globulin (2.4-3.5) g/dL Albumin/Globulin Ratio (1.1-2.2) Swvbx-8-Blxsietpp (0.19-0.46) g/dL [place]-0-Jrobgeglh (0.48-1.05) g/dL Beta Globulins (0.48-1.10) g/dL Gamma Globulins (0.62-1.51) g/dL PEP Interpretation Triglycerides (< 150) mg/dL Cholesterol (< 200) mg/dL LDL Cholesterol, Calc (0-99) mg/dL VLDL Cholesterol, Calc (< 31) mg/dL HDL Cholesterol (40-59) mg/dL Cholesterol/HDL Ratio (0-4.9) Amylase (25-125) Units/L Lipase (8-78) Units/L Vitamin B12 (213-816) pg/mL Folate (7.0-31.4) ng/mL Procalcitonin (<=0.10) ng/mL TSH (0.350-4.840) mcIU/mL Random Cortisol mcg/dl Serum Immunofix Reflex Urine Color (Yellow) Urine Clarity (Clear) Urine pH (5.0-8.0) pH Units Ur Specific [place] (1.010-1.025) Urine Protein (Neg-Trace) mg/dL Urine Glucose (UA) (Normal) mg/dL Urine Ketones (Negative) mg/dL Urine Blood (Negative) Urine Nitrite (Negative) Urine Bilirubin (Negative) Urine Urobilinogen (Normal) mg/dL Ur Leukocyte Esterase (Negative) Urine Microscopic RBC (0-3) per hpf Urine Microscopic WBC (0-3) per hpf Ur Eosinophil Smear (None Seen) % Ur Squamous Epith Cells (None-Few) per lpf Urine Bacteria (None-Few) per hpf Hyaline Casts (None-Few) per lpf Ur Culture Indicated? (NO) Urine Osmolality (300-1090) mOsm/kg Urine Creatinine mg/dL Urine Microalbumin mg/L Microalb/Creat Ratio (0-30) Protein/Creatinin Ratio (0-0.20) mg/mg Urine Sodium mEq/L Urine Urea Nitrogen mg/dL Urine Total Protein (1-14) mg/dL Stool Occult Blood (Negative) Urine Opiates Screen (Puylea=040) ng/mL Ur Barbiturates Screen (Nvvmhb=607) ng/mL Ur Phencyclidine Scrn (Cutoff=25) ng/mL Ur Amphetamines Screen (Okqqtd=9682) ng/mL U Benzodiazepines Scrn (Mxvdyy=116) ng/mL Urine Cocaine Screen (Cutoff= 300) ng/mL U Marijuana (THC) Screen (Cutoff = 50) ng/mL IgG (768-1632) mg/dL IgA (68-408) mg/dL IgM (35-263) mg/dL F-Actin IgG Antibody (0-19) Units Smooth Muscle Ab Titer (<1:20) Complement C3 (88-201) mg/dL Complement C4 (10-40) mg/dL Free [place] LC, Quant (0.33-1.94) mg/dL Free [place] LC, Quant (0.57-2.63) mg/dL Free [place]/Lambda Ratio (0.26-1.65) Hepatitis A IgM Ab (Nonreactive) Hep Bs Antigen (Nonreactive) Hep B Core IgM Ab (Nonreactive) Hepatitis C Ab Screen (Nonreactive) Anti-Streptolysin O Ab (0-330) IU/mL Specimen Rejected Blood Type Antibody Screen Crossmatch 08/14/16 08/15/16 08/15/16 Range/Units 21:29 06:22 06:22 WBC 3.2 L (4.3-11.1) K/mcL RBC 3.59 L (4.19-5.50) M/mcL Hgb 9.0 L (12.9-16.9) g/dL Hct 28.4 L (37.5-50.1) % MCV 79.1 L (83.0-100.0) fL MCH 25.1 L (28.0-33.3) pg MCHC 31.7 (31.6-35.5) g/dL RDW 15.9 H (11.5-14.5) % Plt Count 84 L (140-400) K/mcL MPV 11.2 (9.4-12.4) fL Reticulocyte # (0.05-0.10) M/mcL Immature Gran % 0.3 (0-4) % Seg Neutrophils % 49.5 % Lymphocytes % 34.2 % Monocytes % 11.3 % Eosinophils % 4.1 % Basophils % 0.6 % Neutrophils # 1.6 (1.6-8.9) K/mcL Lymphocytes # 1.1 (0.6-4.6) K/mcL Monocytes # 0.4 (0.0-1.3) K/mcL Eosinophils # 0.1 (0.0-0.6) K/mcL Basophils # 0.0 (0.0-0.2) K/mcL Nucleated RBCs/100 WBC (0) /100 WBC Reactive Lymphocytes (Not Present) Platelet Estimate Slight Decrease L (Normal) Immature Plt Fraction 5.6 (1.1-6.1) % Polychromasia (Not Present) Anisocytosis (Not Present) Microcytosis (Not Present) Percent Retic (1.6-2.8) % Immature Retic Fraction (11.0-38.0) % Retic Hgb Equivalent (28.61-36.33) pg PT (9.4-12.1) Seconds INR APTT (26.0-36.0) Seconds VBG pH (7.32-7.42) pH Units VBG pCO2 (41-51) mmHg VBG pO2 (25-40) mmHg VBG HCO3 (21-27) mEq/L Sodium 131 L (136-145) mEq/L Potassium 4.7 H (3.5-4.5) mEq/L Chloride 100 (98-109) mEq/L Carbon Dioxide 24 (19-29) mEq/L BUN 14 (8-26) mg/dL Creatinine 1.06 (0.72-1.25) mg/dL Est GFR ( Amer) > 60 (> 60) Est GFR (Non-Af Amer) > 60 (> 60) BUN/Creatinine Ratio 13 (6-26) Glucose 262 H (70-99) mg/dL POC Glucose 307 H (58-89) Est Mean Plasma Glucose mg/dl Hemoglobin A1c ( - 5.6) % Serum Osmolality (280-300) mOsm/kg Calculated Osmolality 282 (280-300) Lactic Acid (0.5-2.2) mmol/L Uric Acid (3.5-7.2) mg/dL Calcium 8.5 L (8.6-10.8) mg/dL Ionized Calcium (1.15-1.35) mmol/L Phosphorus (2.3-4.7) mg/dL Magnesium (1.6-2.6) mg/dL Iron (65-175) mcg/dL % Saturation (20-55) % Transferrin (174-364) mg/dL Ferritin (22-275) ng/ml Total Bilirubin (0.2-1.2) mg/dL Direct Bilirubin (0.0-0.5) mg/dL Indirect Bilirubin (0.0-1.2) mg/dL AST (5-34) Units/L ALT (0-55) Units/L Alkaline Phosphatase (38-126) Units/L Ammonia (18-72) mcmol/L Lactate Dehydrogenase (159-327) Units/L Creatine Kinase (30-200) Units/L Troponin I (0-0.03) ng/mL Prot Electrophor EER Serum Total Protein (6.0-8.3) g/dL Total Protein (PEP) (6.00-8.30) g/dL Albumin (3.5-5.0) g/dL Albumin (PEP) (3.75-5.01) g/dL Globulin (2.4-3.5) g/dL Albumin/Globulin Ratio (1.1-2.2) Inhjb-2-Gfwijjxtf (0.19-0.46) g/dL Czdrc-8-Omuzxhmjr (0.48-1.05) g/dL Beta Globulins (0.48-1.10) g/dL Gamma Globulins (0.62-1.51) g/dL PEP Interpretation Triglycerides (< 150) mg/dL Cholesterol (< 200) mg/dL LDL Cholesterol, Calc (0-99) mg/dL VLDL Cholesterol, Calc (< 31) mg/dL HDL Cholesterol (40-59) mg/dL Cholesterol/HDL Ratio (0-4.9) Amylase (25-125) Units/L Lipase (8-78) Units/L Vitamin B12 (213-816) pg/mL Folate (7.0-31.4) ng/mL Procalcitonin (<=0.10) ng/mL TSH (0.350-4.840) mcIU/mL Random Cortisol mcg/dl Serum Immunofix Reflex Urine Color (Yellow) Urine Clarity (Clear) Urine pH (5.0-8.0) pH Units Ur Specific [place] (1.010-1.025) Urine Protein (Neg-Trace) mg/dL Urine Glucose (UA) (Normal) mg/dL Urine Ketones (Negative) mg/dL Urine Blood (Negative) Urine Nitrite (Negative) Urine Bilirubin (Negative) Urine Urobilinogen (Normal) mg/dL Ur Leukocyte Esterase (Negative) Urine Microscopic RBC (0-3) per hpf Urine Microscopic WBC (0-3) per hpf Ur Eosinophil Smear (None Seen) % Ur Squamous Epith Cells (None-Few) per lpf Urine Bacteria (None-Few) per hpf Hyaline Casts (None-Few) per lpf Ur Culture Indicated? (NO) Urine Osmolality (300-1090) mOsm/kg Urine Creatinine mg/dL Urine Microalbumin mg/L Microalb/Creat Ratio (0-30) Protein/Creatinin Ratio (0-0.20) mg/mg Urine Sodium mEq/L Urine Urea Nitrogen mg/dL Urine Total Protein (1-14) mg/dL Stool Occult Blood (Negative) Urine Opiates Screen (Xwvjzn=868) ng/mL Ur Barbiturates Screen (Msrylt=157) ng/mL Ur Phencyclidine Scrn (Cutoff=25) ng/mL Ur Amphetamines Screen (Ddtxmz=1261) ng/mL U Benzodiazepines Scrn (Diuscl=813) ng/mL Urine Cocaine Screen (Cutoff= 300) ng/mL U Marijuana (THC) Screen (Cutoff = 50) ng/mL IgG (768-1632) mg/dL IgA (68-408) mg/dL IgM (35-263) mg/dL F-Actin IgG Antibody (0-19) Units Smooth Muscle Ab Titer (<1:20) Complement C3 (88-201) mg/dL Complement C4 (10-40) mg/dL Free [place] LC, Quant (0.33-1.94) mg/dL Free [place] LC, Quant (0.57-2.63) mg/dL Free [place]/Lambda Ratio (0.26-1.65) Hepatitis A IgM Ab (Nonreactive) Hep Bs Antigen (Nonreactive) Hep B Core IgM Ab (Nonreactive) Hepatitis C Ab Screen (Nonreactive) Anti-Streptolysin O Ab (0-330) IU/mL Specimen Rejected Blood Type Antibody Screen Crossmatch 08/15/16 08/15/16 08/15/16 Range/Units 07:31 11:36 16:38 WBC (4.3-11.1) K/mcL RBC (4.19-5.50) M/mcL Hgb (12.9-16.9) g/dL Hct (37.5-50.1) % MCV (83.0-100.0) fL MCH (28.0-33.3) pg MCHC (31.6-35.5) g/dL RDW (11.5-14.5) % Plt Count (140-400) K/mcL MPV (9.4-12.4) fL Reticulocyte # (0.05-0.10) M/mcL Immature Gran % (0-4) % Seg Neutrophils % % Lymphocytes % % Monocytes % % Eosinophils % % Basophils % % Neutrophils # (1.6-8.9) K/mcL Lymphocytes # (0.6-4.6) K/mcL Monocytes # (0.0-1.3) K/mcL Eosinophils # (0.0-0.6) K/mcL Basophils # (0.0-0.2) K/mcL Nucleated RBCs/100 WBC (0) /100 WBC Reactive Lymphocytes (Not Present) Platelet Estimate (Normal) Immature Plt Fraction (1.1-6.1) % Polychromasia (Not Present) Anisocytosis (Not Present) Microcytosis (Not Present) Percent Retic (1.6-2.8) % Immature Retic Fraction (11.0-38.0) % Retic Hgb Equivalent (28.61-36.33) pg PT (9.4-12.1) Seconds INR APTT (26.0-36.0) Seconds VBG pH (7.32-7.42) pH Units VBG pCO2 (41-51) mmHg VBG pO2 (25-40) mmHg VBG HCO3 (21-27) mEq/L Sodium (136-145) mEq/L Potassium (3.5-4.5) mEq/L Chloride (98-109) mEq/L Carbon Dioxide (19-29) mEq/L BUN (8-26) mg/dL Creatinine (0.72-1.25) mg/dL Est GFR ( Amer) (> 60) Est GFR (Non-Af Amer) (> 60) BUN/Creatinine Ratio (6-26) Glucose (70-99) mg/dL POC Glucose 247 H 308 H 364 H (58-89) Est Mean Plasma Glucose mg/dl Hemoglobin A1c ( - 5.6) % Serum Osmolality (280-300) mOsm/kg Calculated Osmolality (280-300) Lactic Acid (0.5-2.2) mmol/L Uric Acid (3.5-7.2) mg/dL Calcium (8.6-10.8) mg/dL Ionized Calcium (1.15-1.35) mmol/L Phosphorus (2.3-4.7) mg/dL Magnesium (1.6-2.6) mg/dL Iron (65-175) mcg/dL % Saturation (20-55) % Transferrin (174-364) mg/dL Ferritin (22-275) ng/ml Total Bilirubin (0.2-1.2) mg/dL Direct Bilirubin (0.0-0.5) mg/dL Indirect Bilirubin (0.0-1.2) mg/dL AST (5-34) Units/L ALT (0-55) Units/L Alkaline Phosphatase (38-126) Units/L Ammonia (18-72) mcmol/L Lactate Dehydrogenase (159-327) Units/L Creatine Kinase (30-200) Units/L Troponin I (0-0.03) ng/mL Prot Electrophor EER Serum Total Protein (6.0-8.3) g/dL Total Protein (PEP) (6.00-8.30) g/dL Albumin (3.5-5.0) g/dL Albumin (PEP) (3.75-5.01) g/dL Globulin (2.4-3.5) g/dL Albumin/Globulin Ratio (1.1-2.2) Foqzr-7-Qlowjgwfe (0.19-0.46) g/dL Mfuav-5-Wzckluymd (0.48-1.05) g/dL Beta Globulins (0.48-1.10) g/dL Gamma Globulins (0.62-1.51) g/dL PEP Interpretation Triglycerides (< 150) mg/dL Cholesterol (< 200) mg/dL LDL Cholesterol, Calc (0-99) mg/dL VLDL Cholesterol, Calc (< 31) mg/dL HDL Cholesterol (40-59) mg/dL Cholesterol/HDL Ratio (0-4.9) Amylase (25-125) Units/L Lipase (8-78) Units/L Vitamin B12 (213-816) pg/mL Folate (7.0-31.4) ng/mL Procalcitonin (<=0.10) ng/mL TSH (0.350-4.840) mcIU/mL Random Cortisol mcg/dl Serum Immunofix Reflex Urine Color (Yellow) Urine Clarity (Clear) Urine pH (5.0-8.0) pH Units Ur Specific [place] (1.010-1.025) Urine Protein (Neg-Trace) mg/dL Urine Glucose (UA) (Normal) mg/dL Urine Ketones (Negative) mg/dL Urine Blood (Negative) Urine Nitrite (Negative) Urine Bilirubin (Negative) Urine Urobilinogen (Normal) mg/dL Ur Leukocyte Esterase (Negative) Urine Microscopic RBC (0-3) per hpf Urine Microscopic WBC (0-3) per hpf Ur Eosinophil Smear (None Seen) % Ur Squamous Epith Cells (None-Few) per lpf Urine Bacteria (None-Few) per hpf Hyaline Casts (None-Few) per lpf Ur Culture Indicated? (NO) Urine Osmolality (300-1090) mOsm/kg Urine Creatinine mg/dL Urine Microalbumin mg/L Microalb/Creat Ratio (0-30) Protein/Creatinin Ratio (0-0.20) mg/mg Urine Sodium mEq/L Urine Urea Nitrogen mg/dL Urine Total Protein (1-14) mg/dL Stool Occult Blood (Negative) Urine Opiates Screen (Gatcaz=703) ng/mL Ur Barbiturates Screen (Tqqbxn=539) ng/mL Ur Phencyclidine Scrn (Cutoff=25) ng/mL Ur Amphetamines Screen (Rkteqj=4274) ng/mL U Benzodiazepines Scrn (Mdzkaq=123) ng/mL Urine Cocaine Screen (Cutoff= 300) ng/mL U Marijuana (THC) Screen (Cutoff = 50) ng/mL IgG (768-1632) mg/dL IgA (68-408) mg/dL IgM (35-263) mg/dL F-Actin IgG Antibody (0-19) Units Smooth Muscle Ab Titer (<1:20) Complement C3 (88-201) mg/dL Complement C4 (10-40) mg/dL Free [place] LC, Quant (0.33-1.94) mg/dL Free [place] LC, Quant (0.57-2.63) mg/dL Free [place]/Lambda Ratio (0.26-1.65) Hepatitis A IgM Ab (Nonreactive) Hep Bs Antigen (Nonreactive) Hep B Core IgM Ab (Nonreactive) Hepatitis C Ab Screen (Nonreactive) Anti-Streptolysin O Ab (0-330) IU/mL Specimen Rejected Blood Type Antibody Screen Crossmatch 08/15/16 08/15/16 08/16/16 Range/Units 16:39 19:17 05:39 WBC 3.5 L (4.3-11.1) K/mcL RBC 3.85 L (4.19-5.50) M/mcL Hgb 9.6 L (12.9-16.9) g/dL Hct 30.5 L (37.5-50.1) % MCV 79.2 L (83.0-100.0) fL MCH 24.9 L (28.0-33.3) pg MCHC 31.5 L (31.6-35.5) g/dL RDW 16.4 H (11.5-14.5) % Plt Count 92 L (140-400) K/mcL MPV 10.6 (9.4-12.4) fL Reticulocyte # (0.05-0.10) M/mcL Immature Gran % 0.6 (0-4) % Seg Neutrophils % 54.4 % Lymphocytes % 31.3 % Monocytes % 9.6 % Eosinophils % 3.5 % Basophils % 0.6 % Neutrophils # 1.9 (1.6-8.9) K/mcL Lymphocytes # 1.1 (0.6-4.6) K/mcL Monocytes # 0.3 (0.0-1.3) K/mcL Eosinophils # 0.1 (0.0-0.6) K/mcL Basophils # 0.0 (0.0-0.2) K/mcL Nucleated RBCs/100 WBC (0) /100 WBC Reactive Lymphocytes (Not Present) Platelet Estimate (Normal) Immature Plt Fraction 6.7 H (1.1-6.1) % Polychromasia (Not Present) Anisocytosis (Not Present) Microcytosis (Not Present) Percent Retic (1.6-2.8) % Immature Retic Fraction (11.0-38.0) % Retic Hgb Equivalent (28.61-36.33) pg PT (9.4-12.1) Seconds INR APTT (26.0-36.0) Seconds VBG pH (7.32-7.42) pH Units VBG pCO2 (41-51) mmHg VBG pO2 (25-40) mmHg VBG HCO3 (21-27) mEq/L Sodium (136-145) mEq/L Potassium (3.5-4.5) mEq/L Chloride (98-109) mEq/L Carbon Dioxide (19-29) mEq/L BUN (8-26) mg/dL Creatinine (0.72-1.25) mg/dL Est GFR ( Amer) (> 60) Est GFR (Non-Af Amer) (> 60) BUN/Creatinine Ratio (6-26) Glucose (70-99) mg/dL POC Glucose 373 H 379 H (58-89) Est Mean Plasma Glucose mg/dl Hemoglobin A1c ( - 5.6) % Serum Osmolality (280-300) mOsm/kg Calculated Osmolality (280-300) Lactic Acid (0.5-2.2) mmol/L Uric Acid (3.5-7.2) mg/dL Calcium (8.6-10.8) mg/dL Ionized Calcium (1.15-1.35) mmol/L Phosphorus (2.3-4.7) mg/dL Magnesium (1.6-2.6) mg/dL Iron (65-175) mcg/dL % Saturation (20-55) % Transferrin (174-364) mg/dL Ferritin (22-275) ng/ml Total Bilirubin (0.2-1.2) mg/dL Direct Bilirubin (0.0-0.5) mg/dL Indirect Bilirubin (0.0-1.2) mg/dL AST (5-34) Units/L ALT (0-55) Units/L Alkaline Phosphatase (38-126) Units/L Ammonia (18-72) mcmol/L Lactate Dehydrogenase (159-327) Units/L Creatine Kinase (30-200) Units/L Troponin I (0-0.03) ng/mL Prot Electrophor EER Serum Total Protein (6.0-8.3) g/dL Total Protein (PEP) (6.00-8.30) g/dL Albumin (3.5-5.0) g/dL Albumin (PEP) (3.75-5.01) g/dL Globulin (2.4-3.5) g/dL Albumin/Globulin Ratio (1.1-2.2) Gnmfw-6-Dkwfkaepl (0.19-0.46) g/dL Bitlu-9-Pmlzxfiob (0.48-1.05) g/dL Beta Globulins (0.48-1.10) g/dL Gamma Globulins (0.62-1.51) g/dL PEP Interpretation Triglycerides (< 150) mg/dL Cholesterol (< 200) mg/dL LDL Cholesterol, Calc (0-99) mg/dL VLDL Cholesterol, Calc (< 31) mg/dL HDL Cholesterol (40-59) mg/dL Cholesterol/HDL Ratio (0-4.9) Amylase (25-125) Units/L Lipase (8-78) Units/L Vitamin B12 (213-816) pg/mL Folate (7.0-31.4) ng/mL Procalcitonin (<=0.10) ng/mL TSH (0.350-4.840) mcIU/mL Random Cortisol mcg/dl Serum Immunofix Reflex Urine Color (Yellow) Urine Clarity (Clear) Urine pH (5.0-8.0) pH Units Ur Specific [place] (1.010-1.025) Urine Protein (Neg-Trace) mg/dL Urine Glucose (UA) (Normal) mg/dL Urine Ketones (Negative) mg/dL Urine Blood (Negative) Urine Nitrite (Negative) Urine Bilirubin (Negative) Urine Urobilinogen (Normal) mg/dL Ur Leukocyte Esterase (Negative) Urine Microscopic RBC (0-3) per hpf Urine Microscopic WBC (0-3) per hpf Ur Eosinophil Smear (None Seen) % Ur Squamous Epith Cells (None-Few) per lpf Urine Bacteria (None-Few) per hpf Hyaline Casts (None-Few) per lpf Ur Culture Indicated? (NO) Urine Osmolality (300-1090) mOsm/kg Urine Creatinine mg/dL Urine Microalbumin mg/L Microalb/Creat Ratio (0-30) Protein/Creatinin Ratio (0-0.20) mg/mg Urine Sodium mEq/L Urine Urea Nitrogen mg/dL Urine Total Protein (1-14) mg/dL Stool Occult Blood (Negative) Urine Opiates Screen (Fiapny=816) ng/mL Ur Barbiturates Screen (Bazjwx=633) ng/mL Ur Phencyclidine Scrn (Cutoff=25) ng/mL Ur Amphetamines Screen (Sqvbnh=3556) ng/mL U Benzodiazepines Scrn (Lwkthp=269) ng/mL Urine Cocaine Screen (Cutoff= 300) ng/mL U Marijuana (THC) Screen (Cutoff = 50) ng/mL IgG (768-1632) mg/dL IgA (68-408) mg/dL IgM (35-263) mg/dL F-Actin IgG Antibody (0-19) Units Smooth Muscle Ab Titer (<1:20) Complement C3 (88-201) mg/dL Complement C4 (10-40) mg/dL Free [place] LC, Quant (0.33-1.94) mg/dL Free [place] LC, Quant (0.57-2.63) mg/dL Free [place]/Lambda Ratio (0.26-1.65) Hepatitis A IgM Ab (Nonreactive) Hep Bs Antigen (Nonreactive) Hep B Core IgM Ab (Nonreactive) Hepatitis C Ab Screen (Nonreactive) Anti-Streptolysin O Ab (0-330) IU/mL Specimen Rejected Blood Type Antibody Screen Crossmatch 08/16/16 08/16/16 08/16/16 Range/Units 05:39 07:39 11:32 WBC (4.3-11.1) K/mcL RBC (4.19-5.50) M/mcL Hgb (12.9-16.9) g/dL Hct (37.5-50.1) % MCV (83.0-100.0) fL MCH (28.0-33.3) pg MCHC (31.6-35.5) g/dL RDW (11.5-14.5) % Plt Count (140-400) K/mcL MPV (9.4-12.4) fL Reticulocyte # (0.05-0.10) M/mcL Immature Gran % (0-4) % Seg Neutrophils % % Lymphocytes % % Monocytes % % Eosinophils % % Basophils % % Neutrophils # (1.6-8.9) K/mcL Lymphocytes # (0.6-4.6) K/mcL Monocytes # (0.0-1.3) K/mcL Eosinophils # (0.0-0.6) K/mcL Basophils # (0.0-0.2) K/mcL Nucleated RBCs/100 WBC (0) /100 WBC Reactive Lymphocytes (Not Present) Platelet Estimate (Normal) Immature Plt Fraction (1.1-6.1) % Polychromasia (Not Present) Anisocytosis (Not Present) Microcytosis (Not Present) Percent Retic (1.6-2.8) % Immature Retic Fraction (11.0-38.0) % Retic Hgb Equivalent (28.61-36.33) pg PT (9.4-12.1) Seconds INR APTT (26.0-36.0) Seconds VBG pH (7.32-7.42) pH Units VBG pCO2 (41-51) mmHg VBG pO2 (25-40) mmHg VBG HCO3 (21-27) mEq/L Sodium 131 L (136-145) mEq/L Potassium 4.3 (3.5-4.5) mEq/L Chloride 99 (98-109) mEq/L Carbon Dioxide 25 (19-29) mEq/L BUN 16 (8-26) mg/dL Creatinine 1.17 (0.72-1.25) mg/dL Est GFR ( Amer) > 60 (> 60) Est GFR (Non-Af Amer) > 60 (> 60) BUN/Creatinine Ratio 14 (6-26) Glucose 286 H (70-99) mg/dL POC Glucose 289 H 296 H (58-89) Est Mean Plasma Glucose mg/dl Hemoglobin A1c ( - 5.6) % Serum Osmolality (280-300) mOsm/kg Calculated Osmolality 284 (280-300) Lactic Acid (0.5-2.2) mmol/L Uric Acid (3.5-7.2) mg/dL Calcium 9.0 (8.6-10.8) mg/dL Ionized Calcium (1.15-1.35) mmol/L Phosphorus (2.3-4.7) mg/dL Magnesium (1.6-2.6) mg/dL Iron (65-175) mcg/dL % Saturation (20-55) % Transferrin (174-364) mg/dL Ferritin (22-275) ng/ml Total Bilirubin 0.4 (0.2-1.2) mg/dL Direct Bilirubin (0.0-0.5) mg/dL Indirect Bilirubin (0.0-1.2) mg/dL AST 39 H (5-34) Units/L ALT 40 (0-55) Units/L Alkaline Phosphatase 144 H (38-126) Units/L Ammonia (18-72) mcmol/L Lactate Dehydrogenase (159-327) Units/L Creatine Kinase (30-200) Units/L Troponin I (0-0.03) ng/mL Prot Electrophor EER Serum Total Protein 8.1 (6.0-8.3) g/dL Total Protein (PEP) (6.00-8.30) g/dL Albumin 3.1 L (3.5-5.0) g/dL Albumin (PEP) (3.75-5.01) g/dL Globulin 5.0 H (2.4-3.5) g/dL Albumin/Globulin Ratio 0.6 L (1.1-2.2) Xxztn-4-Asczthcat (0.19-0.46) g/dL Rkpws-0-Wmwtdpkzy (0.48-1.05) g/dL Beta Globulins (0.48-1.10) g/dL Gamma Globulins (0.62-1.51) g/dL PEP Interpretation Triglycerides (< 150) mg/dL Cholesterol (< 200) mg/dL LDL Cholesterol, Calc (0-99) mg/dL VLDL Cholesterol, Calc (< 31) mg/dL HDL Cholesterol (40-59) mg/dL Cholesterol/HDL Ratio (0-4.9) Amylase (25-125) Units/L Lipase (8-78) Units/L Vitamin B12 (213-816) pg/mL Folate (7.0-31.4) ng/mL Procalcitonin (<=0.10) ng/mL TSH (0.350-4.840) mcIU/mL Random Cortisol mcg/dl Serum Immunofix Reflex Urine Color (Yellow) Urine Clarity (Clear) Urine pH (5.0-8.0) pH Units Ur Specific [place] (1.010-1.025) Urine Protein (Neg-Trace) mg/dL Urine Glucose (UA) (Normal) mg/dL Urine Ketones (Negative) mg/dL Urine Blood (Negative) Urine Nitrite (Negative) Urine Bilirubin (Negative) Urine Urobilinogen (Normal) mg/dL Ur Leukocyte Esterase (Negative) Urine Microscopic RBC (0-3) per hpf Urine Microscopic WBC (0-3) per hpf Ur Eosinophil Smear (None Seen) % Ur Squamous Epith Cells (None-Few) per lpf Urine Bacteria (None-Few) per hpf Hyaline Casts (None-Few) per lpf Ur Culture Indicated? (NO) Urine Osmolality (300-1090) mOsm/kg Urine Creatinine mg/dL Urine Microalbumin mg/L Microalb/Creat Ratio (0-30) Protein/Creatinin Ratio (0-0.20) mg/mg Urine Sodium mEq/L Urine Urea Nitrogen mg/dL Urine Total Protein (1-14) mg/dL Stool Occult Blood (Negative) Urine Opiates Screen (Pniuws=718) ng/mL Ur Barbiturates Screen (Scckun=185) ng/mL Ur Phencyclidine Scrn (Cutoff=25) ng/mL Ur Amphetamines Screen (Wmvdfw=1817) ng/mL U Benzodiazepines Scrn (Ccrrgu=062) ng/mL Urine Cocaine Screen (Cutoff= 300) ng/mL U Marijuana (THC) Screen (Cutoff = 50) ng/mL IgG (768-1632) mg/dL IgA (68-408) mg/dL IgM (35-263) mg/dL F-Actin IgG Antibody (0-19) Units Smooth Muscle Ab Titer (<1:20) Complement C3 (88-201) mg/dL Complement C4 (10-40) mg/dL Free [place] LC, Quant (0.33-1.94) mg/dL Free [place] LC, Quant (0.57-2.63) mg/dL Free [place]/Lambda Ratio (0.26-1.65) Hepatitis A IgM Ab (Nonreactive) Hep Bs Antigen (Nonreactive) Hep B Core IgM Ab (Nonreactive) Hepatitis C Ab Screen (Nonreactive) Anti-Streptolysin O Ab (0-330) IU/mL Specimen Rejected Blood Type Antibody Screen Crossmatch 08/16/16 08/16/16 08/16/16 Range/Units 16:29 20:53 20:55 WBC (4.3-11.1) K/mcL RBC (4.19-5.50) M/mcL Hgb (12.9-16.9) g/dL Hct (37.5-50.1) % MCV (83.0-100.0) fL MCH (28.0-33.3) pg MCHC (31.6-35.5) g/dL RDW (11.5-14.5) % Plt Count (140-400) K/mcL MPV (9.4-12.4) fL Reticulocyte # (0.05-0.10) M/mcL Immature Gran % (0-4) % Seg Neutrophils % % Lymphocytes % % Monocytes % % Eosinophils % % Basophils % % Neutrophils # (1.6-8.9) K/mcL Lymphocytes # (0.6-4.6) K/mcL Monocytes # (0.0-1.3) K/mcL Eosinophils # (0.0-0.6) K/mcL Basophils # (0.0-0.2) K/mcL Nucleated RBCs/100 WBC (0) /100 WBC Reactive Lymphocytes (Not Present) Platelet Estimate (Normal) Immature Plt Fraction (1.1-6.1) % Polychromasia (Not Present) Anisocytosis (Not Present) Microcytosis (Not Present) Percent Retic (1.6-2.8) % Immature Retic Fraction (11.0-38.0) % Retic Hgb Equivalent (28.61-36.33) pg PT (9.4-12.1) Seconds INR APTT (26.0-36.0) Seconds VBG pH (7.32-7.42) pH Units VBG pCO2 (41-51) mmHg VBG pO2 (25-40) mmHg VBG HCO3 (21-27) mEq/L Sodium (136-145) mEq/L Potassium (3.5-4.5) mEq/L Chloride (98-109) mEq/L Carbon Dioxide (19-29) mEq/L BUN (8-26) mg/dL Creatinine (0.72-1.25) mg/dL Est GFR ( Amer) (> 60) Est GFR (Non-Af Amer) (> 60) BUN/Creatinine Ratio (6-26) Glucose (70-99) mg/dL POC Glucose 287 H 541 H* 336 H (58-89) Est Mean Plasma Glucose mg/dl Hemoglobin A1c ( - 5.6) % Serum Osmolality (280-300) mOsm/kg Calculated Osmolality (280-300) Lactic Acid (0.5-2.2) mmol/L Uric Acid (3.5-7.2) mg/dL Calcium (8.6-10.8) mg/dL Ionized Calcium (1.15-1.35) mmol/L Phosphorus (2.3-4.7) mg/dL Magnesium (1.6-2.6) mg/dL Iron (65-175) mcg/dL % Saturation (20-55) % Transferrin (174-364) mg/dL Ferritin (22-275) ng/ml Total Bilirubin (0.2-1.2) mg/dL Direct Bilirubin (0.0-0.5) mg/dL Indirect Bilirubin (0.0-1.2) mg/dL AST (5-34) Units/L ALT (0-55) Units/L Alkaline Phosphatase (38-126) Units/L Ammonia (18-72) mcmol/L Lactate Dehydrogenase (159-327) Units/L Creatine Kinase (30-200) Units/L Troponin I (0-0.03) ng/mL Prot Electrophor EER Serum Total Protein (6.0-8.3) g/dL Total Protein (PEP) (6.00-8.30) g/dL Albumin (3.5-5.0) g/dL Albumin (PEP) (3.75-5.01) g/dL Globulin (2.4-3.5) g/dL Albumin/Globulin Ratio (1.1-2.2) Whffy-6-Fyazaustk (0.19-0.46) g/dL Kriam-2-Sximjmhgn (0.48-1.05) g/dL Beta Globulins (0.48-1.10) g/dL Gamma Globulins (0.62-1.51) g/dL PEP Interpretation Triglycerides (< 150) mg/dL Cholesterol (< 200) mg/dL LDL Cholesterol, Calc (0-99) mg/dL VLDL Cholesterol, Calc (< 31) mg/dL HDL Cholesterol (40-59) mg/dL Cholesterol/HDL Ratio (0-4.9) Amylase (25-125) Units/L Lipase (8-78) Units/L Vitamin B12 (213-816) pg/mL Folate (7.0-31.4) ng/mL Procalcitonin (<=0.10) ng/mL TSH (0.350-4.840) mcIU/mL Random Cortisol mcg/dl Serum Immunofix Reflex Urine Color (Yellow) Urine Clarity (Clear) Urine pH (5.0-8.0) pH Units Ur Specific [place] (1.010-1.025) Urine Protein (Neg-Trace) mg/dL Urine Glucose (UA) (Normal) mg/dL Urine Ketones (Negative) mg/dL Urine Blood (Negative) Urine Nitrite (Negative) Urine Bilirubin (Negative) Urine Urobilinogen (Normal) mg/dL Ur Leukocyte Esterase (Negative) Urine Microscopic RBC (0-3) per hpf Urine Microscopic WBC (0-3) per hpf Ur Eosinophil Smear (None Seen) % Ur Squamous Epith Cells (None-Few) per lpf Urine Bacteria (None-Few) per hpf Hyaline Casts (None-Few) per lpf Ur Culture Indicated? (NO) Urine Osmolality (300-1090) mOsm/kg Urine Creatinine mg/dL Urine Microalbumin mg/L Microalb/Creat Ratio (0-30) Protein/Creatinin Ratio (0-0.20) mg/mg Urine Sodium mEq/L Urine Urea Nitrogen mg/dL Urine Total Protein (1-14) mg/dL Stool Occult Blood (Negative) Urine Opiates Screen (Pwngjj=328) ng/mL Ur Barbiturates Screen (Pjqggx=765) ng/mL Ur Phencyclidine Scrn (Cutoff=25) ng/mL Ur Amphetamines Screen (Sppzky=9784) ng/mL U Benzodiazepines Scrn (Zxitcl=834) ng/mL Urine Cocaine Screen (Cutoff= 300) ng/mL U Marijuana (THC) Screen (Cutoff = 50) ng/mL IgG (768-1632) mg/dL IgA (68-408) mg/dL IgM (35-263) mg/dL F-Actin IgG Antibody (0-19) Units Smooth Muscle Ab Titer (<1:20) Complement C3 (88-201) mg/dL Complement C4 (10-40) mg/dL Free [place] LC, Quant (0.33-1.94) mg/dL Free [place]ambda LC, Quant (0.57-2.63) mg/dL Free [place]/Lambda Ratio (0.26-1.65) Hepatitis A IgM Ab (Nonreactive) Hep Bs Antigen (Nonreactive) Hep B Core IgM Ab (Nonreactive) Hepatitis C Ab Screen (Nonreactive) Anti-Streptolysin O Ab (0-330) IU/mL Specimen Rejected Blood Type Antibody Screen Crossmatch 08/17/16 08/17/16 08/17/16 Range/Units 03:42 03:42 04:32 WBC 3.8 L (4.3-11.1) K/mcL RBC 3.56 L (4.19-5.50) M/mcL Hgb 9.0 L (12.9-16.9) g/dL Hct 28.5 L (37.5-50.1) % MCV 80.1 L (83.0-100.0) fL MCH 25.3 L (28.0-33.3) pg MCHC 31.6 (31.6-35.5) g/dL RDW 16.8 H (11.5-14.5) % Plt Count 86 L (140-400) K/mcL MPV 10.7 (9.4-12.4) fL Reticulocyte # (0.05-0.10) M/mcL Immature Gran % 1.1 (0-4) % Seg Neutrophils % 54.8 % Lymphocytes % 30.4 % Monocytes % 9.5 % Eosinophils % 3.4 % Basophils % 0.8 % Neutrophils # 2.1 (1.6-8.9) K/mcL Lymphocytes # 1.2 (0.6-4.6) K/mcL Monocytes # 0.4 (0.0-1.3) K/mcL Eosinophils # 0.1 (0.0-0.6) K/mcL Basophils # 0.0 (0.0-0.2) K/mcL Nucleated RBCs/100 WBC (0) /100 WBC Reactive Lymphocytes (Not Present) Platelet Estimate (Normal) Immature Plt Fraction 6.7 H (1.1-6.1) % Polychromasia (Not Present) Anisocytosis (Not Present) Microcytosis (Not Present) Percent Retic (1.6-2.8) % Immature Retic Fraction (11.0-38.0) % Retic Hgb Equivalent (28.61-36.33) pg PT (9.4-12.1) Seconds INR APTT (26.0-36.0) Seconds VBG pH (7.32-7.42) pH Units VBG pCO2 (41-51) mmHg VBG pO2 (25-40) mmHg VBG HCO3 (21-27) mEq/L Sodium 130 L (136-145) mEq/L Potassium 4.8 H (3.5-4.5) mEq/L Chloride 100 (98-109) mEq/L Carbon Dioxide 24 (19-29) mEq/L BUN 17 (8-26) mg/dL Creatinine 1.28 H (0.72-1.25) mg/dL Est GFR ( Amer) > 60 (> 60) Est GFR (Non-Af Amer) 56 L (> 60) BUN/Creatinine Ratio 13 (6-26) Glucose 365 H (70-99) mg/dL POC Glucose (58-89) Est Mean Plasma Glucose mg/dl Hemoglobin A1c ( - 5.6) % Serum Osmolality (280-300) mOsm/kg Calculated Osmolality 286 (280-300) Lactic Acid (0.5-2.2) mmol/L Uric Acid (3.5-7.2) mg/dL Calcium 8.6 (8.6-10.8) mg/dL Ionized Calcium (1.15-1.35) mmol/L Phosphorus (2.3-4.7) mg/dL Magnesium (1.6-2.6) mg/dL Iron (65-175) mcg/dL % Saturation (20-55) % Transferrin (174-364) mg/dL Ferritin (22-275) ng/ml Total Bilirubin (0.2-1.2) mg/dL Direct Bilirubin (0.0-0.5) mg/dL Indirect Bilirubin (0.0-1.2) mg/dL AST (5-34) Units/L ALT (0-55) Units/L Alkaline Phosphatase (38-126) Units/L Ammonia (18-72) mcmol/L Lactate Dehydrogenase (159-327) Units/L Creatine Kinase (30-200) Units/L Troponin I (0-0.03) ng/mL Prot Electrophor EER Serum Total Protein (6.0-8.3) g/dL Total Protein (PEP) (6.00-8.30) g/dL Albumin (3.5-5.0) g/dL Albumin (PEP) (3.75-5.01) g/dL Globulin (2.4-3.5) g/dL Albumin/Globulin Ratio (1.1-2.2) Bdolf-0-Cbknxdvir (0.19-0.46) g/dL Ffeur-5-Chqlntalo (0.48-1.05) g/dL Beta Globulins (0.48-1.10) g/dL Gamma Globulins (0.62-1.51) g/dL PEP Interpretation Triglycerides (< 150) mg/dL Cholesterol (< 200) mg/dL LDL Cholesterol, Calc (0-99) mg/dL VLDL Cholesterol, Calc (< 31) mg/dL HDL Cholesterol (40-59) mg/dL Cholesterol/HDL Ratio (0-4.9) Amylase (25-125) Units/L Lipase (8-78) Units/L Vitamin B12 (213-816) pg/mL Folate (7.0-31.4) ng/mL Procalcitonin (<=0.10) ng/mL TSH (0.350-4.840) mcIU/mL Random Cortisol mcg/dl Serum Immunofix Reflex Urine Color (Yellow) Urine Clarity (Clear) Urine pH (5.0-8.0) pH Units Ur Specific [place] (1.010-1.025) Urine Protein (Neg-Trace) mg/dL Urine Glucose (UA) (Normal) mg/dL Urine Ketones (Negative) mg/dL Urine Blood (Negative) Urine Nitrite (Negative) Urine Bilirubin (Negative) Urine Urobilinogen (Normal) mg/dL Ur Leukocyte Esterase (Negative) Urine Microscopic RBC (0-3) per hpf Urine Microscopic WBC (0-3) per hpf Ur Eosinophil Smear (None Seen) % Ur Squamous Epith Cells (None-Few) per lpf Urine Bacteria (None-Few) per hpf Hyaline Casts (None-Few) per lpf Ur Culture Indicated? (NO) Urine Osmolality 480 (300-1090) mOsm/kg Urine Creatinine mg/dL Urine Microalbumin mg/L Microalb/Creat Ratio (0-30) Protein/Creatinin Ratio (0-0.20) mg/mg Urine Sodium mEq/L Urine Urea Nitrogen mg/dL Urine Total Protein (1-14) mg/dL Stool Occult Blood (Negative) Urine Opiates Screen (Rxdohc=688) ng/mL Ur Barbiturates Screen (Vuebhd=671) ng/mL Ur Phencyclidine Scrn (Cutoff=25) ng/mL Ur Amphetamines Screen (Znmbxy=2674) ng/mL U Benzodiazepines Scrn (Cevman=104) ng/mL Urine Cocaine Screen (Cutoff= 300) ng/mL U Marijuana (THC) Screen (Cutoff = 50) ng/mL IgG (768-1632) mg/dL IgA (68-408) mg/dL IgM (35-263) mg/dL F-Actin IgG Antibody (0-19) Units Smooth Muscle Ab Titer (<1:20) Complement C3 (88-201) mg/dL Complement C4 (10-40) mg/dL Free [place] LC, Quant (0.33-1.94) mg/dL Free [place] LC, Quant (0.57-2.63) mg/dL Free [place]/Lambda Ratio (0.26-1.65) Hepatitis A IgM Ab (Nonreactive) Hep Bs Antigen (Nonreactive) Hep B Core IgM Ab (Nonreactive) Hepatitis C Ab Screen (Nonreactive) Anti-Streptolysin O Ab (0-330) IU/mL Specimen Rejected Blood Type Antibody Screen Crossmatch 08/17/16 08/17/16 08/17/16 Range/Units 07:15 09:04 11:09 WBC (4.3-11.1) K/mcL RBC (4.19-5.50) M/mcL Hgb (12.9-16.9) g/dL Hct (37.5-50.1) % MCV (83.0-100.0) fL MCH (28.0-33.3) pg MCHC (31.6-35.5) g/dL RDW (11.5-14.5) % Plt Count (140-400) K/mcL MPV (9.4-12.4) fL Reticulocyte # (0.05-0.10) M/mcL Immature Gran % (0-4) % Seg Neutrophils % % Lymphocytes % % Monocytes % % Eosinophils % % Basophils % % Neutrophils # (1.6-8.9) K/mcL Lymphocytes # (0.6-4.6) K/mcL Monocytes # (0.0-1.3) K/mcL Eosinophils # (0.0-0.6) K/mcL Basophils # (0.0-0.2) K/mcL Nucleated RBCs/100 WBC (0) /100 WBC Reactive Lymphocytes (Not Present) Platelet Estimate (Normal) Immature Plt Fraction (1.1-6.1) % Polychromasia (Not Present) Anisocytosis (Not Present) Microcytosis (Not Present) Percent Retic (1.6-2.8) % Immature Retic Fraction (11.0-38.0) % Retic Hgb Equivalent (28.61-36.33) pg PT (9.4-12.1) Seconds INR APTT (26.0-36.0) Seconds VBG pH (7.32-7.42) pH Units VBG pCO2 (41-51) mmHg VBG pO2 (25-40) mmHg VBG HCO3 (21-27) mEq/L Sodium (136-145) mEq/L Potassium (3.5-4.5) mEq/L Chloride (98-109) mEq/L Carbon Dioxide (19-29) mEq/L BUN (8-26) mg/dL Creatinine (0.72-1.25) mg/dL Est GFR ( Amer) (> 60) Est GFR (Non-Af Amer) (> 60) BUN/Creatinine Ratio (6-26) Glucose (70-99) mg/dL POC Glucose 300 H 382 H 326 H (58-89) Est Mean Plasma Glucose mg/dl Hemoglobin A1c ( - 5.6) % Serum Osmolality (280-300) mOsm/kg Calculated Osmolality (280-300) Lactic Acid (0.5-2.2) mmol/L Uric Acid (3.5-7.2) mg/dL Calcium (8.6-10.8) mg/dL Ionized Calcium (1.15-1.35) mmol/L Phosphorus (2.3-4.7) mg/dL Magnesium (1.6-2.6) mg/dL Iron (65-175) mcg/dL % Saturation (20-55) % Transferrin (174-364) mg/dL Ferritin (22-275) ng/ml Total Bilirubin (0.2-1.2) mg/dL Direct Bilirubin (0.0-0.5) mg/dL Indirect Bilirubin (0.0-1.2) mg/dL AST (5-34) Units/L ALT (0-55) Units/L Alkaline Phosphatase (38-126) Units/L Ammonia (18-72) mcmol/L Lactate Dehydrogenase (159-327) Units/L Creatine Kinase (30-200) Units/L Troponin I (0-0.03) ng/mL Prot Electrophor EER Serum Total Protein (6.0-8.3) g/dL Total Protein (PEP) (6.00-8.30) g/dL Albumin (3.5-5.0) g/dL Albumin (PEP) (3.75-5.01) g/dL Globulin (2.4-3.5) g/dL Albumin/Globulin Ratio (1.1-2.2) Fnivi-4-Fhamsorbf (0.19-0.46) g/dL Vlxml-9-Ctzbmhoix (0.48-1.05) g/dL Beta Globulins (0.48-1.10) g/dL Gamma Globulins (0.62-1.51) g/dL PEP Interpretation Triglycerides (< 150) mg/dL Cholesterol (< 200) mg/dL LDL Cholesterol, Calc (0-99) mg/dL VLDL Cholesterol, Calc (< 31) mg/dL HDL Cholesterol (40-59) mg/dL Cholesterol/HDL Ratio (0-4.9) Amylase (25-125) Units/L Lipase (8-78) Units/L Vitamin B12 (213-816) pg/mL Folate (7.0-31.4) ng/mL Procalcitonin (<=0.10) ng/mL TSH (0.350-4.840) mcIU/mL Random Cortisol mcg/dl Serum Immunofix Reflex Urine Color (Yellow) Urine Clarity (Clear) Urine pH (5.0-8.0) pH Units Ur Specific [place] (1.010-1.025) Urine Protein (Neg-Trace) mg/dL Urine Glucose (UA) (Normal) mg/dL Urine Ketones (Negative) mg/dL Urine Blood (Negative) Urine Nitrite (Negative) Urine Bilirubin (Negative) Urine Urobilinogen (Normal) mg/dL Ur Leukocyte Esterase (Negative) Urine Microscopic RBC (0-3) per hpf Urine Microscopic WBC (0-3) per hpf Ur Eosinophil Smear (None Seen) % Ur Squamous Epith Cells (None-Few) per lpf Urine Bacteria (None-Few) per hpf Hyaline Casts (None-Few) per lpf Ur Culture Indicated? (NO) Urine Osmolality (300-1090) mOsm/kg Urine Creatinine mg/dL Urine Microalbumin mg/L Microalb/Creat Ratio (0-30) Protein/Creatinin Ratio (0-0.20) mg/mg Urine Sodium mEq/L Urine Urea Nitrogen mg/dL Urine Total Protein (1-14) mg/dL Stool Occult Blood (Negative) Urine Opiates Screen (Uscqyz=816) ng/mL Ur Barbiturates Screen (Pyulsp=998) ng/mL Ur Phencyclidine Scrn (Cutoff=25) ng/mL Ur Amphetamines Screen (Xjjunm=6826) ng/mL U Benzodiazepines Scrn (Zpwwqw=147) ng/mL Urine Cocaine Screen (Cutoff= 300) ng/mL U Marijuana (THC) Screen (Cutoff = 50) ng/mL IgG (768-1632) mg/dL IgA (68-408) mg/dL IgM (35-263) mg/dL F-Actin IgG Antibody (0-19) Units Smooth Muscle Ab Titer (<1:20) Complement C3 (88-201) mg/dL Complement C4 (10-40) mg/dL Free [place] LC, Quant (0.33-1.94) mg/dL Free [place] LC, Quant (0.57-2.63) mg/dL Free [place]/Lambda Ratio (0.26-1.65) Hepatitis A IgM Ab (Nonreactive) Hep Bs Antigen (Nonreactive) Hep B Core IgM Ab (Nonreactive) Hepatitis C Ab Screen (Nonreactive) Anti-Streptolysin O Ab (0-330) IU/mL Specimen Rejected Blood Type Antibody Screen Crossmatch 08/17/16 08/17/16 08/18/16 Range/Units 16:00 20:15 04:45 WBC 4.4 (4.3-11.1) K/mcL RBC 3.75 L (4.19-5.50) M/mcL Hgb 9.5 L (12.9-16.9) g/dL Hct 29.9 L (37.5-50.1) % MCV 79.7 L (83.0-100.0) fL MCH 25.3 L (28.0-33.3) pg MCHC 31.8 (31.6-35.5) g/dL RDW 17.6 H (11.5-14.5) % Plt Count 92 L (140-400) K/mcL MPV 10.1 (9.4-12.4) fL Reticulocyte # (0.05-0.10) M/mcL Immature Gran % 1.4 (0-4) % Seg Neutrophils % 56.0 % Lymphocytes % 28.2 % Monocytes % 9.9 % Eosinophils % 3.6 % Basophils % 0.9 % Neutrophils # 2.5 (1.6-8.9) K/mcL Lymphocytes # 1.2 (0.6-4.6) K/mcL Monocytes # 0.4 (0.0-1.3) K/mcL Eosinophils # 0.2 (0.0-0.6) K/mcL Basophils # 0.0 (0.0-0.2) K/mcL Nucleated RBCs/100 WBC 0.5 H (0) /100 WBC Reactive Lymphocytes (Not Present) Platelet Estimate (Normal) Immature Plt Fraction 6.5 H (1.1-6.1) % Polychromasia (Not Present) Anisocytosis (Not Present) Microcytosis (Not Present) Percent Retic (1.6-2.8) % Immature Retic Fraction (11.0-38.0) % Retic Hgb Equivalent (28.61-36.33) pg PT (9.4-12.1) Seconds INR APTT (26.0-36.0) Seconds VBG pH (7.32-7.42) pH Units VBG pCO2 (41-51) mmHg VBG pO2 (25-40) mmHg VBG HCO3 (21-27) mEq/L Sodium (136-145) mEq/L Potassium (3.5-4.5) mEq/L Chloride (98-109) mEq/L Carbon Dioxide (19-29) mEq/L BUN (8-26) mg/dL Creatinine (0.72-1.25) mg/dL Est GFR ( Amer) (> 60) Est GFR (Non-Af Amer) (> 60) BUN/Creatinine Ratio (6-26) Glucose (70-99) mg/dL POC Glucose 285 H 310 H (58-89) Est Mean Plasma Glucose mg/dl Hemoglobin A1c ( - 5.6) % Serum Osmolality (280-300) mOsm/kg Calculated Osmolality (280-300) Lactic Acid (0.5-2.2) mmol/L Uric Acid (3.5-7.2) mg/dL Calcium (8.6-10.8) mg/dL Ionized Calcium (1.15-1.35) mmol/L Phosphorus (2.3-4.7) mg/dL Magnesium (1.6-2.6) mg/dL Iron (65-175) mcg/dL % Saturation (20-55) % Transferrin (174-364) mg/dL Ferritin (22-275) ng/ml Total Bilirubin (0.2-1.2) mg/dL Direct Bilirubin (0.0-0.5) mg/dL Indirect Bilirubin (0.0-1.2) mg/dL AST (5-34) Units/L ALT (0-55) Units/L Alkaline Phosphatase (38-126) Units/L Ammonia (18-72) mcmol/L Lactate Dehydrogenase (159-327) Units/L Creatine Kinase (30-200) Units/L Troponin I (0-0.03) ng/mL Prot Electrophor EER Serum Total Protein (6.0-8.3) g/dL Total Protein (PEP) (6.00-8.30) g/dL Albumin (3.5-5.0) g/dL Albumin (PEP) (3.75-5.01) g/dL Globulin (2.4-3.5) g/dL Albumin/Globulin Ratio (1.1-2.2) Xyocv-2-Xgzsmjkio (0.19-0.46) g/dL Muodo-2-Yqwnpukhk (0.48-1.05) g/dL Beta Globulins (0.48-1.10) g/dL Gamma Globulins (0.62-1.51) g/dL PEP Interpretation Triglycerides (< 150) mg/dL Cholesterol (< 200) mg/dL LDL Cholesterol, Calc (0-99) mg/dL VLDL Cholesterol, Calc (< 31) mg/dL HDL Cholesterol (40-59) mg/dL Cholesterol/HDL Ratio (0-4.9) Amylase (25-125) Units/L Lipase (8-78) Units/L Vitamin B12 (213-816) pg/mL Folate (7.0-31.4) ng/mL Procalcitonin (<=0.10) ng/mL TSH (0.350-4.840) mcIU/mL Random Cortisol mcg/dl Serum Immunofix Reflex Urine Color (Yellow) Urine Clarity (Clear) Urine pH (5.0-8.0) pH Units Ur Specific [place] (1.010-1.025) Urine Protein (Neg-Trace) mg/dL Urine Glucose (UA) (Normal) mg/dL Urine Ketones (Negative) mg/dL Urine Blood (Negative) Urine Nitrite (Negative) Urine Bilirubin (Negative) Urine Urobilinogen (Normal) mg/dL Ur Leukocyte Esterase (Negative) Urine Microscopic RBC (0-3) per hpf Urine Microscopic WBC (0-3) per hpf Ur Eosinophil Smear (None Seen) % Ur Squamous Epith Cells (None-Few) per lpf Urine Bacteria (None-Few) per hpf Hyaline Casts (None-Few) per lpf Ur Culture Indicated? (NO) Urine Osmolality (300-1090) mOsm/kg Urine Creatinine mg/dL Urine Microalbumin mg/L Microalb/Creat Ratio (0-30) Protein/Creatinin Ratio (0-0.20) mg/mg Urine Sodium mEq/L Urine Urea Nitrogen mg/dL Urine Total Protein (1-14) mg/dL Stool Occult Blood (Negative) Urine Opiates Screen (Gtjcwa=195) ng/mL Ur Barbiturates Screen (Nelcwn=598) ng/mL Ur Phencyclidine Scrn (Cutoff=25) ng/mL Ur Amphetamines Screen (Snalgd=5037) ng/mL U Benzodiazepines Scrn (Clcnod=782) ng/mL Urine Cocaine Screen (Cutoff= 300) ng/mL U Marijuana (THC) Screen (Cutoff = 50) ng/mL IgG (768-1632) mg/dL IgA (68-408) mg/dL IgM (35-263) mg/dL F-Actin IgG Antibody (0-19) Units Smooth Muscle Ab Titer (<1:20) Complement C3 (88-201) mg/dL Complement C4 (10-40) mg/dL Free [place] LC, Quant (0.33-1.94) mg/dL Free L[place] LC, Quant (0.57-2.63) mg/dL Free [place]/Lambda Ratio (0.26-1.65) Hepatitis A IgM Ab (Nonreactive) Hep Bs Antigen (Nonreactive) Hep B Core IgM Ab (Nonreactive) Hepatitis C Ab Screen (Nonreactive) Anti-Streptolysin O Ab (0-330) IU/mL Specimen Rejected Blood Type Antibody Screen Crossmatch 08/18/16 08/18/16 08/18/16 Range/Units 04:45 07:32 10:52 WBC (4.3-11.1) K/mcL RBC (4.19-5.50) M/mcL Hgb (12.9-16.9) g/dL Hct (37.5-50.1) % MCV (83.0-100.0) fL MCH (28.0-33.3) pg MCHC (31.6-35.5) g/dL RDW (11.5-14.5) % Plt Count (140-400) K/mcL MPV (9.4-12.4) fL Reticulocyte # (0.05-0.10) M/mcL Immature Gran % (0-4) % Seg Neutrophils % % Lymphocytes % % Monocytes % % Eosinophils % % Basophils % % Neutrophils # (1.6-8.9) K/mcL Lymphocytes # (0.6-4.6) K/mcL Monocytes # (0.0-1.3) K/mcL Eosinophils # (0.0-0.6) K/mcL Basophils # (0.0-0.2) K/mcL Nucleated RBCs/100 WBC (0) /100 WBC Reactive Lymphocytes (Not Present) Platelet Estimate (Normal) Immature Plt Fraction (1.1-6.1) % Polychromasia (Not Present) Anisocytosis (Not Present) Microcytosis (Not Present) Percent Retic (1.6-2.8) % Immature Retic Fraction (11.0-38.0) % Retic Hgb Equivalent (28.61-36.33) pg PT (9.4-12.1) Seconds INR APTT (26.0-36.0) Seconds VBG pH (7.32-7.42) pH Units VBG pCO2 (41-51) mmHg VBG pO2 (25-40) mmHg VBG HCO3 (21-27) mEq/L Sodium 131 L (136-145) mEq/L Potassium 4.4 (3.5-4.5) mEq/L Chloride 101 (98-109) mEq/L Carbon Dioxide 23 (19-29) mEq/L BUN 16 (8-26) mg/dL Creatinine 1.13 (0.72-1.25) mg/dL Est GFR ( Amer) > 60 (> 60) Est GFR (Non-Af Amer) > 60 (> 60) BUN/Creatinine Ratio 14 (6-26) Glucose 297 H (70-99) mg/dL POC Glucose 241 H 301 H (58-89) Est Mean Plasma Glucose mg/dl Hemoglobin A1c ( - 5.6) % Serum Osmolality (280-300) mOsm/kg Calculated Osmolality 284 (280-300) Lactic Acid (0.5-2.2) mmol/L Uric Acid (3.5-7.2) mg/dL Calcium 8.9 (8.6-10.8) mg/dL Ionized Calcium (1.15-1.35) mmol/L Phosphorus (2.3-4.7) mg/dL Magnesium (1.6-2.6) mg/dL Iron (65-175) mcg/dL % Saturation (20-55) % Transferrin (174-364) mg/dL Ferritin (22-275) ng/ml Total Bilirubin 0.4 (0.2-1.2) mg/dL Direct Bilirubin (0.0-0.5) mg/dL Indirect Bilirubin (0.0-1.2) mg/dL AST 58 H (5-34) Units/L ALT 50 (0-55) Units/L Alkaline Phosphatase 139 H (38-126) Units/L Ammonia (18-72) mcmol/L Lactate Dehydrogenase (159-327) Units/L Creatine Kinase (30-200) Units/L Troponin I (0-0.03) ng/mL Prot Electrophor EER Serum Total Protein 7.8 (6.0-8.3) g/dL Total Protein (PEP) (6.00-8.30) g/dL Albumin 3.0 L (3.5-5.0) g/dL Albumin (PEP) (3.75-5.01) g/dL Globulin 4.8 H (2.4-3.5) g/dL Albumin/Globulin Ratio 0.6 L (1.1-2.2) Mgiuj-2-Hpcptjooq (0.19-0.46) g/dL Bmqul-9-Yknvtmbwg (0.48-1.05) g/dL Beta Globulins (0.48-1.10) g/dL Gamma Globulins (0.62-1.51) g/dL PEP Interpretation Triglycerides (< 150) mg/dL Cholesterol (< 200) mg/dL LDL Cholesterol, Calc (0-99) mg/dL VLDL Cholesterol, Calc (< 31) mg/dL HDL Cholesterol (40-59) mg/dL Cholesterol/HDL Ratio (0-4.9) Amylase (25-125) Units/L Lipase (8-78) Units/L Vitamin B12 (213-816) pg/mL Folate (7.0-31.4) ng/mL Procalcitonin (<=0.10) ng/mL TSH (0.350-4.840) mcIU/mL Random Cortisol mcg/dl Serum Immunofix Reflex Urine Color (Yellow) Urine Clarity (Clear) Urine pH (5.0-8.0) pH Units Ur Specific [place] (1.010-1.025) Urine Protein (Neg-Trace) mg/dL Urine Glucose (UA) (Normal) mg/dL Urine Ketones (Negative) mg/dL Urine Blood (Negative) Urine Nitrite (Negative) Urine Bilirubin (Negative) Urine Urobilinogen (Normal) mg/dL Ur Leukocyte Esterase (Negative) Urine Microscopic RBC (0-3) per hpf Urine Microscopic WBC (0-3) per hpf Ur Eosinophil Smear (None Seen) % Ur Squamous Epith Cells (None-Few) per lpf Urine Bacteria (None-Few) per hpf Hyaline Casts (None-Few) per lpf Ur Culture Indicated? (NO) Urine Osmolality (300-1090) mOsm/kg Urine Creatinine mg/dL Urine Microalbumin mg/L Microalb/Creat Ratio (0-30) Protein/Creatinin Ratio (0-0.20) mg/mg Urine Sodium mEq/L Urine Urea Nitrogen mg/dL Urine Total Protein (1-14) mg/dL Stool Occult Blood (Negative) Urine Opiates Screen (Mozarn=235) ng/mL Ur Barbiturates Screen (Dohugv=265) ng/mL Ur Phencyclidine Scrn (Cutoff=25) ng/mL Ur Amphetamines Screen (Ymvggb=8238) ng/mL U Benzodiazepines Scrn (Grqyqw=046) ng/mL Urine Cocaine Screen (Cutoff= 300) ng/mL U Marijuana (THC) Screen (Cutoff = 50) ng/mL IgG (768-1632) mg/dL IgA (68-408) mg/dL IgM (35-263) mg/dL F-Actin IgG Antibody (0-19) Units Smooth Muscle Ab Titer (<1:20) Complement C3 (88-201) mg/dL Complement C4 (10-40) mg/dL Free [place] LC, Quant (0.33-1.94) mg/dL Free [place] LC, Quant (0.57-2.63) mg/dL Free [place]/Lambda Ratio (0.26-1.65) Hepatitis A IgM Ab (Nonreactive) Hep Bs Antigen (Nonreactive) Hep B Core IgM Ab (Nonreactive) Hepatitis C Ab Screen (Nonreactive) Anti-Streptolysin O Ab (0-330) IU/mL Specimen Rejected Blood Type Antibody Screen Crossmatch 08/18/16 08/18/16 08/19/16 Range/Units 16:23 20:29 04:50 WBC 4.4 (4.3-11.1) K/mcL RBC 3.83 L (4.19-5.50) M/mcL Hgb 9.6 L (12.9-16.9) g/dL Hct 30.7 L (37.5-50.1) % MCV 80.2 L (83.0-100.0) fL MCH 25.1 L (28.0-33.3) pg MCHC 31.3 L (31.6-35.5) g/dL RDW 18.9 H (11.5-14.5) % Plt Count 79 L (140-400) K/mcL MPV 11.2 (9.4-12.4) fL Reticulocyte # (0.05-0.10) M/mcL Immature Gran % 1.1 (0-4) % Seg Neutrophils % 52.0 % Lymphocytes % 30.9 % Monocytes % 10.8 % Eosinophils % 4.5 % Basophils % 0.7 % Neutrophils # 2.3 (1.6-8.9) K/mcL Lymphocytes # 1.4 (0.6-4.6) K/mcL Monocytes # 0.5 (0.0-1.3) K/mcL Eosinophils # 0.2 (0.0-0.6) K/mcL Basophils # 0.0 (0.0-0.2) K/mcL Nucleated RBCs/100 WBC (0) /100 WBC Reactive Lymphocytes Present A (Not Present) Platelet Estimate Decreased L (Normal) Immature Plt Fraction 7.0 H (1.1-6.1) % Polychromasia 1+ A (Not Present) Anisocytosis 1+ A (Not Present) Microcytosis Present A (Not Present) Percent Retic (1.6-2.8) % Immature Retic Fraction (11.0-38.0) % Retic Hgb Equivalent (28.61-36.33) pg PT (9.4-12.1) Seconds INR APTT (26.0-36.0) Seconds VBG pH (7.32-7.42) pH Units VBG pCO2 (41-51) mmHg VBG pO2 (25-40) mmHg VBG HCO3 (21-27) mEq/L Sodium (136-145) mEq/L Potassium (3.5-4.5) mEq/L Chloride (98-109) mEq/L Carbon Dioxide (19-29) mEq/L BUN (8-26) mg/dL Creatinine (0.72-1.25) mg/dL Est GFR ( Amer) (> 60) Est GFR (Non-Af Amer) (> 60) BUN/Creatinine Ratio (6-26) Glucose (70-99) mg/dL POC Glucose 301 H 309 H (58-89) Est Mean Plasma Glucose mg/dl Hemoglobin A1c ( - 5.6) % Serum Osmolality (280-300) mOsm/kg Calculated Osmolality (280-300) Lactic Acid (0.5-2.2) mmol/L Uric Acid (3.5-7.2) mg/dL Calcium (8.6-10.8) mg/dL Ionized Calcium (1.15-1.35) mmol/L Phosphorus (2.3-4.7) mg/dL Magnesium (1.6-2.6) mg/dL Iron (65-175) mcg/dL % Saturation (20-55) % Transferrin (174-364) mg/dL Ferritin (22-275) ng/ml Total Bilirubin (0.2-1.2) mg/dL Direct Bilirubin (0.0-0.5) mg/dL Indirect Bilirubin (0.0-1.2) mg/dL AST (5-34) Units/L ALT (0-55) Units/L Alkaline Phosphatase (38-126) Units/L Ammonia (18-72) mcmol/L Lactate Dehydrogenase (159-327) Units/L Creatine Kinase (30-200) Units/L Troponin I (0-0.03) ng/mL Prot Electrophor EER Serum Total Protein (6.0-8.3) g/dL Total Protein (PEP) (6.00-8.30) g/dL Albumin (3.5-5.0) g/dL Albumin (PEP) (3.75-5.01) g/dL Globulin (2.4-3.5) g/dL Albumin/Globulin Ratio (1.1-2.2) Twjas-6-Jnvlfwdjx (0.19-0.46) g/dL Uraqg-0-Grgtzsjgx (0.48-1.05) g/dL Beta Globulins (0.48-1.10) g/dL Gamma Globulins (0.62-1.51) g/dL PEP Interpretation Triglycerides (< 150) mg/dL Cholesterol (< 200) mg/dL LDL Cholesterol, Calc (0-99) mg/dL VLDL Cholesterol, Calc (< 31) mg/dL HDL Cholesterol (40-59) mg/dL Cholesterol/HDL Ratio (0-4.9) Amylase (25-125) Units/L Lipase (8-78) Units/L Vitamin B12 (213-816) pg/mL Folate (7.0-31.4) ng/mL Procalcitonin (<=0.10) ng/mL TSH (0.350-4.840) mcIU/mL Random Cortisol mcg/dl Serum Immunofix Reflex Urine Color (Yellow) Urine Clarity (Clear) Urine pH (5.0-8.0) pH Units Ur Specific [place] (1.010-1.025) Urine Protein (Neg-Trace) mg/dL Urine Glucose (UA) (Normal) mg/dL Urine Ketones (Negative) mg/dL Urine Blood (Negative) Urine Nitrite (Negative) Urine Bilirubin (Negative) Urine Urobilinogen (Normal) mg/dL Ur Leukocyte Esterase (Negative) Urine Microscopic RBC (0-3) per hpf Urine Microscopic WBC (0-3) per hpf Ur Eosinophil Smear (None Seen) % Ur Squamous Epith Cells (None-Few) per lpf Urine Bacteria (None-Few) per hpf Hyaline Casts (None-Few) per lpf Ur Culture Indicated? (NO) Urine Osmolality (300-1090) mOsm/kg Urine Creatinine mg/dL Urine Microalbumin mg/L Microalb/Creat Ratio (0-30) Protein/Creatinin Ratio (0-0.20) mg/mg Urine Sodium mEq/L Urine Urea Nitrogen mg/dL Urine Total Protein (1-14) mg/dL Stool Occult Blood (Negative) Urine Opiates Screen (Fgnwka=143) ng/mL Ur Barbiturates Screen (Srgskn=993) ng/mL Ur Phencyclidine Scrn (Cutoff=25) ng/mL Ur Amphetamines Screen (Uddxwj=8484) ng/mL U Benzodiazepines Scrn (Esakfv=585) ng/mL Urine Cocaine Screen (Cutoff= 300) ng/mL U Marijuana (THC) Screen (Cutoff = 50) ng/mL IgG (768-1632) mg/dL IgA (68-408) mg/dL IgM (35-263) mg/dL F-Actin IgG Antibody (0-19) Units Smooth Muscle Ab Titer (<1:20) Complement C3 (88-201) mg/dL Complement C4 (10-40) mg/dL Free [place] LC, Quant (0.33-1.94) mg/dL Free [place] LC, Quant (0.57-2.63) mg/dL Free [place]/Lambda Ratio (0.26-1.65) Hepatitis A IgM Ab (Nonreactive) Hep Bs Antigen (Nonreactive) Hep B Core IgM Ab (Nonreactive) Hepatitis C Ab Screen (Nonreactive) Anti-Streptolysin O Ab (0-330) IU/mL Specimen Rejected Blood Type Antibody Screen Crossmatch 08/19/16 08/19/16 08/19/16 Range/Units 04:50 06:26 08:08 WBC (4.3-11.1) K/mcL RBC (4.19-5.50) M/mcL Hgb (12.9-16.9) g/dL Hct (37.5-50.1) % MCV (83.0-100.0) fL MCH (28.0-33.3) pg MCHC (31.6-35.5) g/dL RDW (11.5-14.5) % Plt Count (140-400) K/mcL MPV (9.4-12.4) fL Reticulocyte # (0.05-0.10) M/mcL Immature Gran % (0-4) % Seg Neutrophils % % Lymphocytes % % Monocytes % % Eosinophils % % Basophils % % Neutrophils # (1.6-8.9) K/mcL Lymphocytes # (0.6-4.6) K/mcL Monocytes # (0.0-1.3) K/mcL Eosinophils # (0.0-0.6) K/mcL Basophils # (0.0-0.2) K/mcL Nucleated RBCs/100 WBC (0) /100 WBC Reactive Lymphocytes (Not Present) Platelet Estimate (Normal) Immature Plt Fraction (1.1-6.1) % Polychromasia (Not Present) Anisocytosis (Not Present) Microcytosis (Not Present) Percent Retic (1.6-2.8) % Immature Retic Fraction (11.0-38.0) % Retic Hgb Equivalent (28.61-36.33) pg PT (9.4-12.1) Seconds INR APTT (26.0-36.0) Seconds VBG pH (7.32-7.42) pH Units VBG pCO2 (41-51) mmHg VBG pO2 (25-40) mmHg VBG HCO3 (21-27) mEq/L Sodium 130 L (136-145) mEq/L Potassium 4.1 (3.5-4.5) mEq/L Chloride 101 (98-109) mEq/L Carbon Dioxide 23 (19-29) mEq/L BUN 17 (8-26) mg/dL Creatinine 0.87 (0.72-1.25) mg/dL Est GFR ( Amer) > 60 (> 60) Est GFR (Non-Af Amer) > 60 (> 60) BUN/Creatinine Ratio 20 (6-26) Glucose 217 H (70-99) mg/dL POC Glucose 233 H (58-89) Est Mean Plasma Glucose mg/dl Hemoglobin A1c ( - 5.6) % Serum Osmolality (280-300) mOsm/kg Calculated Osmolality 278 L (280-300) Lactic Acid (0.5-2.2) mmol/L Uric Acid (3.5-7.2) mg/dL Calcium 8.8 (8.6-10.8) mg/dL Ionized Calcium (1.15-1.35) mmol/L Phosphorus (2.3-4.7) mg/dL Magnesium (1.6-2.6) mg/dL Iron (65-175) mcg/dL % Saturation (20-55) % Transferrin (174-364) mg/dL Ferritin (22-275) ng/ml Total Bilirubin 0.5 (0.2-1.2) mg/dL Direct Bilirubin (0.0-0.5) mg/dL Indirect Bilirubin (0.0-1.2) mg/dL AST 58 H (5-34) Units/L ALT 51 (0-55) Units/L Alkaline Phosphatase 132 H (38-126) Units/L Ammonia (18-72) mcmol/L Lactate Dehydrogenase (159-327) Units/L Creatine Kinase (30-200) Units/L Troponin I (0-0.03) ng/mL Prot Electrophor EER Serum Total Protein 7.5 (6.0-8.3) g/dL Total Protein (PEP) (6.00-8.30) g/dL Albumin 2.9 L (3.5-5.0) g/dL Albumin (PEP) (3.75-5.01) g/dL Globulin 4.6 H (2.4-3.5) g/dL Albumin/Globulin Ratio 0.6 L (1.1-2.2) Ncixe-0-Bakwnwahp (0.19-0.46) g/dL Svriw-9-Lvxgydkmo (0.48-1.05) g/dL Beta Globulins (0.48-1.10) g/dL Gamma Globulins (0.62-1.51) g/dL PEP Interpretation Triglycerides (< 150) mg/dL Cholesterol (< 200) mg/dL LDL Cholesterol, Calc (0-99) mg/dL VLDL Cholesterol, Calc (< 31) mg/dL HDL Cholesterol (40-59) mg/dL Cholesterol/HDL Ratio (0-4.9) Amylase (25-125) Units/L Lipase (8-78) Units/L Vitamin B12 (213-816) pg/mL Folate (7.0-31.4) ng/mL Procalcitonin (<=0.10) ng/mL TSH (0.350-4.840) mcIU/mL Random Cortisol mcg/dl Serum Immunofix Reflex Urine Color (Yellow) Urine Clarity (Clear) Urine pH (5.0-8.0) pH Units Ur Specific [place] (1.010-1.025) Urine Protein (Neg-Trace) mg/dL Urine Glucose (UA) (Normal) mg/dL Urine Ketones (Negative) mg/dL Urine Blood (Negative) Urine Nitrite (Negative) Urine Bilirubin (Negative) Urine Urobilinogen (Normal) mg/dL Ur Leukocyte Esterase (Negative) Urine Microscopic RBC (0-3) per hpf Urine Microscopic WBC (0-3) per hpf Ur Eosinophil Smear (None Seen) % Ur Squamous Epith Cells (None-Few) per lpf Urine Bacteria (None-Few) per hpf Hyaline Casts (None-Few) per lpf Ur Culture Indicated? (NO) Urine Osmolality (300-1090) mOsm/kg Urine Creatinine mg/dL Urine Microalbumin mg/L Microalb/Creat Ratio (0-30) Protein/Creatinin Ratio (0-0.20) mg/mg Urine Sodium mEq/L Urine Urea Nitrogen mg/dL Urine Total Protein (1-14) mg/dL Stool Occult Blood (Negative) Urine Opiates Screen (Ximxlk=725) ng/mL Ur Barbiturates Screen (Dqiwgv=432) ng/mL Ur Phencyclidine Scrn (Cutoff=25) ng/mL Ur Amphetamines Screen (Ksyflb=2121) ng/mL U Benzodiazepines Scrn (Tylrde=996) ng/mL Urine Cocaine Screen (Cutoff= 300) ng/mL U Marijuana (THC) Screen (Cutoff = 50) ng/mL IgG (768-1632) mg/dL IgA (68-408) mg/dL IgM (35-263) mg/dL F-Actin IgG Antibody (0-19) Units Smooth Muscle Ab Titer (<1:20) Complement C3 (88-201) mg/dL Complement C4 (10-40) mg/dL Free [place] LC, Quant (0.33-1.94) mg/dL Free [place] LC, Quant (0.57-2.63) mg/dL Free [place]/Lambda Ratio (0.26-1.65) Hepatitis A IgM Ab (Nonreactive) Hep Bs Antigen (Nonreactive) Hep B Core IgM Ab (Nonreactive) Hepatitis C Ab Screen (Nonreactive) Anti-Streptolysin O Ab (0-330) IU/mL Specimen Rejected Hemolyzed Blood Type Antibody Screen Crossmatch 08/19/16 Range/Units 11:45 WBC (4.3-11.1) K/mcL RBC (4.19-5.50) M/mcL Hgb (12.9-16.9) g/dL Hct (37.5-50.1) % MCV (83.0-100.0) fL MCH (28.0-33.3) pg MCHC (31.6-35.5) g/dL RDW (11.5-14.5) % Plt Count (140-400) K/mcL MPV (9.4-12.4) fL Reticulocyte # (0.05-0.10) M/mcL Immature Gran % (0-4) % Seg Neutrophils % % Lymphocytes % % Monocytes % % Eosinophils % % Basophils % % Neutrophils # (1.6-8.9) K/mcL Lymphocytes # (0.6-4.6) K/mcL Monocytes # (0.0-1.3) K/mcL Eosinophils # (0.0-0.6) K/mcL Basophils # (0.0-0.2) K/mcL Nucleated RBCs/100 WBC (0) /100 WBC Reactive Lymphocytes (Not Present) Platelet Estimate (Normal) Immature Plt Fraction (1.1-6.1) % Polychromasia (Not Present) Anisocytosis (Not Present) Microcytosis (Not Present) Percent Retic (1.6-2.8) % Immature Retic Fraction (11.0-38.0) % Retic Hgb Equivalent (28.61-36.33) pg PT (9.4-12.1) Seconds INR APTT (26.0-36.0) Seconds VBG pH (7.32-7.42) pH Units VBG pCO2 (41-51) mmHg VBG pO2 (25-40) mmHg VBG HCO3 (21-27) mEq/L Sodium (136-145) mEq/L Potassium (3.5-4.5) mEq/L Chloride (98-109) mEq/L Carbon Dioxide (19-29) mEq/L BUN (8-26) mg/dL Creatinine (0.72-1.25) mg/dL Est GFR ( Amer) (> 60) Est GFR (Non-Af Amer) (> 60) BUN/Creatinine Ratio (6-26) Glucose (70-99) mg/dL POC Glucose 321 H (58-89) Est Mean Plasma Glucose mg/dl Hemoglobin A1c ( - 5.6) % Serum Osmolality (280-300) mOsm/kg Calculated Osmolality (280-300) Lactic Acid (0.5-2.2) mmol/L Uric Acid (3.5-7.2) mg/dL Calcium (8.6-10.8) mg/dL Ionized Calcium (1.15-1.35) mmol/L Phosphorus (2.3-4.7) mg/dL Magnesium (1.6-2.6) mg/dL Iron (65-175) mcg/dL % Saturation (20-55) % Transferrin (174-364) mg/dL Ferritin (22-275) ng/ml Total Bilirubin (0.2-1.2) mg/dL Direct Bilirubin (0.0-0.5) mg/dL Indirect Bilirubin (0.0-1.2) mg/dL AST (5-34) Units/L ALT (0-55) Units/L Alkaline Phosphatase (38-126) Units/L Ammonia (18-72) mcmol/L Lactate Dehydrogenase (159-327) Units/L Creatine Kinase (30-200) Units/L Troponin I (0-0.03) ng/mL Prot Electrophor EER Serum Total Protein (6.0-8.3) g/dL Total Protein (PEP) (6.00-8.30) g/dL Albumin (3.5-5.0) g/dL Albumin (PEP) (3.75-5.01) g/dL Globulin (2.4-3.5) g/dL Albumin/Globulin Ratio (1.1-2.2) Rnwwm-8-Xvlvkaxmi (0.19-0.46) g/dL Sdlbb-9-Hattnumdq (0.48-1.05) g/dL Beta Globulins (0.48-1.10) g/dL Gamma Globulins (0.62-1.51) g/dL PEP Interpretation Triglycerides (< 150) mg/dL Cholesterol (< 200) mg/dL LDL Cholesterol, Calc (0-99) mg/dL VLDL Cholesterol, Calc (< 31) mg/dL HDL Cholesterol (40-59) mg/dL Cholesterol/HDL Ratio (0-4.9) Amylase (25-125) Units/L Lipase (8-78) Units/L Vitamin B12 (213-816) pg/mL Folate (7.0-31.4) ng/mL Procalcitonin (<=0.10) ng/mL TSH (0.350-4.840) mcIU/mL Random Cortisol mcg/dl Serum Immunofix Reflex Urine Color (Yellow) Urine Clarity (Clear) Urine pH (5.0-8.0) pH Units Ur Specific [place] (1.010-1.025) Urine Protein (Neg-Trace) mg/dL Urine Glucose (UA) (Normal) mg/dL Urine Ketones (Negative) mg/dL Urine Blood (Negative) Urine Nitrite (Negative) Urine Bilirubin (Negative) Urine Urobilinogen (Normal) mg/dL Ur Leukocyte Esterase (Negative) Urine Microscopic RBC (0-3) per hpf Urine Microscopic WBC (0-3) per hpf Ur Eosinophil Smear (None Seen) % Ur Squamous Epith Cells (None-Few) per lpf Urine Bacteria (None-Few) per hpf Hyaline Casts (None-Few) per lpf Ur Culture Indicated? (NO) Urine Osmolality (300-1090) mOsm/kg Urine Creatinine mg/dL Urine Microalbumin mg/L Microalb/Creat Ratio (0-30) Protein/Creatinin Ratio (0-0.20) mg/mg Urine Sodium mEq/L Urine Urea Nitrogen mg/dL Urine Total Protein (1-14) mg/dL Stool Occult Blood (Negative) Urine Opiates Screen (Pbapso=357) ng/mL Ur Barbiturates Screen (Isrkoo=013) ng/mL Ur Phencyclidine Scrn (Cutoff=25) ng/mL Ur Amphetamines Screen (Vpjrsl=8095) ng/mL U Benzodiazepines Scrn (Yjfcdf=765) ng/mL Urine Cocaine Screen (Cutoff= 300) ng/mL U Marijuana (THC) Screen (Cutoff = 50) ng/mL IgG (768-1632) mg/dL IgA (68-408) mg/dL IgM (35-263) mg/dL F-Actin IgG Antibody (0-19) Units Smooth Muscle Ab Titer (<1:20) Complement C3 (88-201) mg/dL Complement C4 (10-40) mg/dL Free [place] LC, Quant (0.33-1.94) mg/dL Free [place] LC, Quant (0.57-2.63) mg/dL Free [place]/Lambda Ratio (0.26-1.65) Hepatitis A IgM Ab (Nonreactive) Hep Bs Antigen (Nonreactive) Hep B Core IgM Ab (Nonreactive) Hepatitis C Ab Screen (Nonreactive) Anti-Streptolysin O Ab (0-330) IU/mL Specimen Rejected Blood Type Antibody Screen Crossmatch Assessments/Treatments 12 lead ECG assessment Start: 08/10/16 20: 04 Freq: Status: Discharge Document 08/10/16 20:04 TAB (Rec: 08/10/16 21:18 TAB [id number]) EKG EKG performed by ish EKG shown to and signed by dr. montes 12 lead ECG assessment Start: 08/10/16 23: 50 Freq: NOW Status: Complete Document 08/11/16 03:08 CRS (Rec: 08/11/16 03:08 CRS [id number]) Ambulation assistance Start: 08/11/16 03: 07 Freq: Status: Discharge Document 08/13/16 15:28 RDC (Rec: 08/13/16 15:29 RDC [id number]) Document 08/17/16 18:00 AYW (Rec: 08/17/16 18:04 AYW [id number]) Cardiac Monitoring Med/Surg Start: 08/10/16 23: 50 Freq: .CONT Status: Discharge Document 08/12/16 11:58 SLT (Rec: 08/12/16 12:58 SLT [id number]) Cardiac Monitoring Monitor Number [id number] Strip placed in Chart Yes Memory Cleared No Alarms/Limits Heart Rate 104 EKG Method Telemetry Rhythm Sinus Tachycardia MS Interval 0.17 QRS Interval 0.09 QT Interval 0.32 Document 08/19/16 11:49 SLT (Rec: 08/19/16 12:30 SLT [id number]) Cardiac Monitoring Monitor Number [id number] Strip placed in Chart Yes Memory Cleared No Alarms/Limits Heart Rate 99 EKG Method Telemetry Rhythm Sinus Rhythm MS Interval 0.18 QRS Interval 0.08 QT Interval 0.31 Cardiac monitoring Start: 08/10/16 20: 04 Freq: Status: Discharge Document 08/10/16 20:04 TAB (Rec: 08/10/16 21:18 TAB [id number]) Cardiac Monitoring Monitoring Method Bedside Cardiac monitoring Start: 08/10/16 23: 46 Freq: .ONCE Status: Discharge Document 08/11/16 05:06 CRS (Rec: 08/11/16 05:06 CRS [facility] [id number] Alarms/Limits HR Alarm 130/40 Heart Rate 70 Rhythm Sinus Rhythm MS Interval 0.20 QRS Interval 0.07 QT Interval 0.36 Document 08/11/16 12:26 SLT (Rec: 08/11/16 12:38 SLT [facility] [id number] Cardiac Monitoring Monitor Number [id number] Strip placed in Chart Yes Memory Cleared No Alarms/Limits Heart Rate 87 EKG Method Telemetry Rhythm Sinus Rhythm MS Interval 0.17 QRS Interval 0.09 QT Interval 0.32 Document 08/13/16 11:49 RDC (Rec: 08/13/16 11:50 RDC [id number]) Cardiac Monitoring Monitor Number [id number] Strip placed in Chart Yes Memory Cleared No Alarms/Limits HR Alarm 130/40 Heart Rate 97 EKG Method Telemetry Rhythm Sinus Rhythm MS Interval 0.21 QRS Interval 0.06 QT Interval 0.29 Document 08/14/16 02:20 EJC (Rec: 08/14/16 02:21 EJC [id number]) Cardiac Monitoring Strip placed in Chart Yes Alarms/Limits HR Alarm 120/40 Heart Rate 103 EKG Method Telemetry Rhythm Sinus Tachycardia MS Interval 0.19 QRS Interval 0.08 QT Interval 0.29 Document 08/14/16 07:36 EPR (Rec: 08/14/16 07:36 EPR [id number]) Cardiac Monitoring Monitor Number [id number] Strip placed in Chart Yes Alarms/Limits HR Alarm 120/40 Heart Rate 105 EKG Method Telemetry Rhythm Sinus Tachycardia MS Interval 0.11 QRS Interval 0.08 QT Interval 0.28 Document 08/14/16 14:07 EPR (Rec: 08/14/16 14:08 EPR [id number]) Cardiac Monitoring Monitor Number [id number] Strip placed in Chart Yes Alarms/Limits HR Alarm 120/40 Heart Rate 104 EKG Method Telemetry Rhythm Sinus Tachycardia MS Interval 0.24 QRS Interval 0.07 QT Interval 0.32 Document 08/15/16 04:28 EJC (Rec: 08/15/16 04:51 EJC [id number]) Cardiac Monitoring Strip placed in Chart Yes Alarms/Limits HR Alarm 120/40 Heart Rate 101 EKG Method Telemetry Rhythm Sinus Tachycardia MS Interval 0.19 QRS Interval 0.07 QT Interval 0.31 Document 08/15/16 16:35 RDC (Rec: 08/15/16 17:56 RDC [id number]) Cardiac Monitoring Monitor Number [id number] Strip placed in Chart Yes Alarms/Limits HR Alarm 120/40 Heart Rate 107 EKG Method Telemetry Rhythm Sinus Tachycardia MS Interval 0.20 QRS Interval 0.07 QT Interval 0.32 Document 08/15/16 23:33 BEF (Rec: 08/15/16 23:33 BEF [id number]) Cardiac Monitoring Monitor Number [id number] Strip placed in Chart Yes Alarms/Limits HR Alarm 120/40 Heart Rate 103 EKG Method Telemetry Rhythm Sinus Tachycardia MS Interval 0.22 QRS Interval 0.05 QT Interval 0.31 Document 08/16/16 11:36 RDC (Rec: 08/16/16 11:37 RDC [facility] [email or web address] Cardiac Monitoring Monitor Number [id number] Strip placed in Chart Yes Alarms/Limits HR Alarm 120/40 Heart Rate 104 EKG Method Telemetry Rhythm Sinus Tachycardia MS Interval 0.19 QRS Interval 0.04 QT Interval 0.27 Document 08/16/16 23:30 BEF (Rec: 08/17/16 00:49 BEF [facility] [email or web address] Cardiac Monitoring Monitor Number [id number] Strip placed in Chart Yes Alarms/Limits HR Alarm 120/40 Heart Rate 102 EKG Method Telemetry Rhythm Sinus Tachycardia MS Interval 0.23 QRS Interval 0.04 QT Interval 0.30 Document 08/17/16 12:11 AYW (Rec: 08/17/16 12:12 AYW [facility] [email or web address] Cardiac Monitoring Monitor Number [id number] Strip placed in Chart Yes Memory Cleared No Alarms/Limits HR Alarm 120/50 Heart Rate 99 EKG Method Telemetry Rhythm Sinus Rhythm MS Interval 0.20 QRS Interval 0.07 QT Interval 0.33 Collect Specimen Start: 08/10/16 20: 04 Freq: Status: Discharge Document 08/10/16 20:34 TAB (Rec: 08/10/16 21:18 TAB [id number]) Collect Specimen Stool sample obtained as ordered Yes Specimen(s) labled in presence of Yes patient Specimen sent to lab via Hand carried Collect Specimen: [id number] Start: 08/11/16 16: 07 Freq: ONCE Status: Complete Document 08/11/16 16:07 SLT (Rec: 08/11/16 16:21 SLT [facility]) Collect Specimen: [id number] Start: 08/13/16 08: 00 Freq: ONCE Status: Complete Document 08/13/16 08:00 RDC (Rec: 08/13/16 09:54 RDC [id number]) Comfort Measures Start: 08/17/16 18: 00 Freq: Status: Discharge Document 08/17/16 18:00 AYW (Rec: 08/17/16 18:04 AYW [facility] [email or web address] 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, 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 Start: 08/11/16 01: 40 Freq: Status: Discharge Document 08/13/16 15:28 RDC (Rec: 08/13/16 15:29 [id number] Document 08/17/16 18:00 AYW (Rec: 08/17/16 18:04 AYW [facility] [email or web address] 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 GI consulted- pt with chronic anemia, just had EGD/ Colonoscopy May, will hold off on scopes at this time and monitor CBC. Pt to advance to diabetic diet for DIN this evening. Pt very drowsy upon interview. CDE consult pending . BG levels remain >300. Hx: Cirrhosis, CHF, CAD, DM, COPD, HTN, HLD, PTSD Labs: Hgb 8.1, Na 126, K+ 5.4, alb 3.3, A1c 10.5% Meds: NS @ 125ml/hr, SSI High AC/HS, Levemir 28u QHS, Lactulose Bob White Body Weight 154 Comment CBW: 240# unsure of wt hx Diet Diabetic Calories Needed to Maintain Weight 1750-2100kcal (25-30kcal/kg) Estimated Protein Needs 70-84gm (1-1.2gm/kg) Initial assessment face to face time Inadequate food/beverage with patient (mins) intake Nutrition Problem PES Statement r/t restricted diet aeb clear liquid diet this AM, pending GI workup. Initial Assessment Face to face time 15 with patient (mins) (minutes) Nutrition Intervention: Meals and Snacks Comment 1. Diet: Diabetic 2. BG control per physician Nutrition Monitoring: Energy Intake Gastrointestinal Profile Glucose Profile Comment f/u 08/14 Document 08/14/16 16:09 [facility] (Rec: 08/14/16 16:11 [facility] [id number]) Nutritional Assessment - Rhit Subjective Data: Pt with stable Hgb. BG levels in good control with increased insulin. Tolerating PO diet well. No nutritional needs at this time. Labs: BG levels in 100's today Meds: Levemir 100u BID, Humalog 35u BID, SSI, Lactulose TID Bob White Body Weight 154 Comment CBW: 240# unsure of wt hx Diet Diabetic Calories Needed to Maintain Weight 1750-2100kcal (25-30kcal/kg) Estimated Protein Needs 70-84gm (1-1.2gm/kg) Nutrition Intervention: Meals and Snacks Comment 1. Diet: Diabetic 2. BG control per physician Nutrition Monitoring: Energy Intake Glucose Profile Comment f/u 08/21 Discharge Assessment Start: 08/10/16 23: 41 Freq: Status: Discharge Document 08/19/16 11:40 [facility] (Rec: 08/19/16 11:43 [place] [id number]) Discharge Assessment Discharge Disposition Residential [facility] Belongings sent with patient Yes Services Needed at Discharge Home Health Care Services Summary of Care Provided Yes Patient was provided information on Yes accessing patient portal Has Patient Been in Isolation During No Hospital Stay Referrals Made Yes Patient Education Given Yes Discharge Instructions Given To Patient Discharge Instructions Address Activity Diet Weight Measures Medications Symptoms Worsening Follow Up Labs Problems Patient instructed regarding new Yes medications and to provide the list to their Primary Care Provider Patient instructed to carry their Yes medication list with them at all times in case of emergency Was patient discharged on Warfarin for No confirmed VTE diagnosis? Was patient discharged with diagnosis of No ischemic or hemmorrhagic stroke? Flu Vaccine Given No Reason Flu Vaccine Not Given Patient Refused Document 08/19/16 12:07 [facility] (Rec: 08/19/16 12:14 [place] [id number]) Discharge Assessment Discharge Disposition Residential [facility] Belongings sent with patient Yes Services Needed at Discharge Home Health Care Services Summary of Care Provided Yes Patient was provided information on Yes accessing patient portal Level Of Consciousness Awake Alert Appropriate Follows Commands Eating (Feeding) Ability Independent Bathing Ability 1 Person Assist Upper Body Dressing Ability Independent Lower Body Dressing Ability Independent Ambulation Ability Standby Assistance Toileting Ability Standby Assistance Bowel Continent Bladder Continent Has Patient Been in Isolation During No Hospital Stay Doctor's Appointment Made Yes Referrals Made Yes Patient Education Given Yes Discharge Instructions Given To Patient Discharge Instructions Address Activity Diet Weight Measures Medications Symptoms Worsening Follow Up Labs Problems Patient instructed regarding new Yes medications and to provide the list to their Primary Care Provider Patient instructed to carry their Yes medication list with them at all times in case of emergency Was patient discharged on Warfarin for No confirmed VTE diagnosis? Was patient discharged with diagnosis of No ischemic or hemmorrhagic stroke? Flu Vaccine Given No Reason Flu Vaccine Not Given Patient Refused Nursing Summary Admitted for MJ, abdominal pain, GI bleed, cirrhosis. History of arthritis, cirrhosis, CHF, COPD, DM, HTN, TIA, anxiety, depression, PTSD, bilateral knww replacement. Full code. Pt has been on room air. ADA diet, accuchecks ac&hs. Up as tolerated with standby assistance. Uses toilet. A&O x3. Sinus rhythm on tele. Document 08/19/16 12:14 SLT (Rec: 08/19/16 12:15 SLT [id number]) Discharge Assessment Discharge Disposition Residential [facility] Mode of Discharge Private Vehicle Accompanied By well drill operator helper cable tool Belongings sent with patient Yes Services Needed at Discharge Home Health Care Services Summary of Care Provided Yes Patient was provided information on Yes accessing patient portal Level Of Consciousness Awake Alert Appropriate Follows Commands Eating (Feeding) Ability Independent Bathing Ability 1 Person Assist Upper Body Dressing Ability Independent Lower Body Dressing Ability Independent Ambulation Ability Standby Assistance Toileting Ability Standby Assistance Bowel Continent Bladder Continent Has Patient Been in Isolation During No Hospital Stay Doctor's Appointment Made Yes Referrals Made Yes Patient Education Given Yes Discharge Instructions Given To Patient Discharge Instructions Address Activity Diet Weight Measures Medications Symptoms Worsening Follow Up Labs Problems Patient instructed regarding new Yes medications and to provide the list to their Primary Care Provider Patient instructed to carry their Yes medication list with them at all times in case of emergency Was patient discharged on Warfarin for No confirmed VTE diagnosis? Was patient discharged with diagnosis of No ischemic or hemmorrhagic stroke? Flu Vaccine Given No Reason Flu Vaccine Not Given Patient Refused Nursing Summary Admitted for MJ, abdominal pain, GI bleed, cirrhosis. History of arthritis, cirrhosis, CHF, COPD, DM, HTN, TIA, anxiety, depression, PTSD, bilateral knww replacement. Full code. Pt has been on room air. ADA diet, accuchecks ac&hs. Up as tolerated with standby assistance. Uses toilet. A&O x3. Sinus rhythm on tele. Document 08/19/16 13:55 AAS (Rec: 08/19/16 13:59 AAS [id number]) Discharge Assessment Discharge Disposition Residential [facility] Mode of Discharge Private Vehicle Accompanied By well drill operator helper cable tool Belongings sent with patient Yes Services Needed at Discharge Home Health Care Services Summary of Care Provided Yes Patient was provided information on Yes accessing patient portal Level Of Consciousness Awake Alert Appropriate Follows Commands Eating (Feeding) Ability Independent Bathing Ability 1 Person Assist Upper Body Dressing Ability Independent Lower Body Dressing Ability Independent Ambulation Ability Standby Assistance Toileting Ability Standby Assistance Bowel Continent Bladder Continent Has Patient Been in Isolation During No Hospital Stay Doctor's Appointment Made Yes[facility] Ref[facility] PT OT Patient Education Given Yes Discharge Instructions Given To Patient Discharge Instructions Address Activity Diet Weight Measures Medications Symptoms Worsening Follow Up Labs Problems Patient instructed regarding new Yes medications and to provide the list to their Primary Care Provider Patient instructed to carry their Yes medication list with them at all times in case of emergency Prescriptions Given To Patient Was patient discharged on Warfarin for No confirmed VTE diagnosis? Was patient discharged with diagnosis of No ischemic or hemmorrhagic stroke? Flu Vaccine Given No Reason Flu Vaccine Not Given Patient Refused Nursing Summary Admitted for MJ, abdominal pain, GI bleed, cirrhosis. History of arthritis, cirrhosis, CHF, COPD, DM, HTN, TIA, anxiety, depression, PTSD, bilateral knee replacement, drug abuse. Full code. Pt has been on room air. ADA diet, accuchecks ac&hs. Up as tolerated with standby assistance. Uses toilet. A&O x3. Sinus rhythm on tele. Allergies to IV dye, PCN, Torodol, gabapentin, mirtazapine, butorphanol. Patient will return to [facility], and will be contacted by [place] home [facility], pending approval. Refuses flu vaccine at this time. Prescription for pain medication given to patient to have fille.d ED Abdominal Pain Assessment Start: 08/10/16 21: 18 Freq: Status: Discharge Document 08/10/16 20:46 TAB (Rec: 08/11/16 00:23 TAB [id number]) Abdominal Pain Symptoms/Complaint Abdominal Pain Context Unknown Improves With Nothing Worsens With Nothing Associated Symptoms Denies Other Symptoms Level Of Consciousness Awake Alert Follows Commands Patient Orientation Place Name Date of Skin Temperature Warm Skin Moisture Dry Skin Turgor Normal Respiratory Depth Normal Respiratory Effort Non-Labored Respiratory Pattern Regular Abdomen Description Soft Large Round Tender Date of Last Bowel Movement 08/11/16 Nausea/Vomiting Presence Nauseated Bladder Distention Description None ED Discharge Assessment Start: 08/10/16 20: 04 Freq: Status: Discharge Document 08/11/16 00:49 TAB (Rec: 08/11/16 00:52 TAB [id number]) ED Discharge Assessment ED Discharge Disposition Admitted ED Condition on Discharge Fair Med Rec/Patient Pharmacy Completed? No Admitted to 2A Bed assigned 2 A 35 Transported by architectural technician Transported with IV continuing medication Report given to Nurse Information relayed patient's care treatments medications given condition Pain Scale 4 Pain Scale Used Standard (1-10) Blood Pressure 112/75 Heart rate 81 Respiratory Rate 18 Oxygen Delivery Room Air Oxygen Saturation 96 Critical Care Minutes 0 ED General Medical Assessment Start: 08/10/16 20: 04 Freq: Status: Discharge Document 08/10/16 20:04 TAB (Rec: 08/10/16 21:18 TAB [id number]) General Medical Level Of Consciousness Awake Alert Appropriate Follows Commands Patient Orientation Person Place Name Age Date of Skin Temperature Warm Skin Moisture Dry Skin Turgor Normal Respiratory Depth Normal Respiratory Effort Non-Labored Respiratory Pattern Regular Abdomen Description Non-Tender Large Round Tender EPIV (Powerglide Insertion) Start: 08/12/16 12: 17 Freq: .ONCE Status: Complete Document 08/12/16 13:52 KIB (Rec: 08/12/16 13:53 KIB [id number]) EPIV Insertion PICC Team EPIV Charge* Yes EPIV Insertion Checklist Prep the EPIV Site apply chloraprep to the skin using a back and forth scrubbing motion apply chloraprep for 30 seconds allow prep to dry During the Procedure clinician is wearing sterile gloves during insertion sterile field and sterile technique are maintained After the Procedure guidewire removed and visualized sterile technique is used to apply the dressing dressing is dated patient provided with education on EPIV infection prevention Name of Clinician Inserting EPIV kbenson Date 08/12/16 Time 13:00 Education, UTI signs and symptoms Start: 08/11/16 09: 07 Freq: Status: Complete Document 08/13/16 15:28 RDC (Rec: 08/13/16 15:29 [id number] Document 08/17/16 18:00 AYW (Rec: 08/17/16 18:04 AYW [id number]) Education, hyperglycemia signs/symptoms Start: 08/11/16 01: 40 Freq: Status: Discharge Document 08/13/16 15:28 RDC (Rec: 08/13/16 15:29 [id number] Document 08/17/16 18:00 AYW (Rec: 08/17/16 18:04 AYW [id number]) Education, hypoglycemia signs/symptoms Start: 08/11/16 01: 40 Freq: Status: Discharge Document 08/13/16 15:28 RDC (Rec: 08/13/16 15:29 [id number] Document 08/17/16 18:00 AYW (Rec: 08/17/16 18:04 AY 2A14) Education, pain scale Start: 08/17/16 18: 00 Freq: Status: Discharge Document 08/17/16 18:00 AYW (Rec: 08/17/16 18:04 AY [id number]) Education, postdischarge follow-up Start: 08/11/16 01: 40 Freq: Status: Discharge Document 08/13/16 15:28 RD (Rec: 08/13/16 15:29 [id number]) Document 08/17/16 18:00 AYW (Rec: 08/17/16 18:04 [facility] [id number]) Education, urinary catheter care Start: 08/11/16 09: 07 Freq: Status: Complete Document 08/13/16 15:28 RD (Rec: 08/13/16 15:29 [id number]) Document 08/17/16 18:00 AYW (Rec: 08/17/16 18:04 [facility] [id number]) Environmental safety management Start: 08/11/16 03: 07 Freq: Status: Discharge Document 08/13/16 15:28 RD (Rec: 08/13/16 15:29 [id number]) Document 08/17/16 18:00 AYW (Rec: 08/17/16 18:04 AYW [id number]) Fall Precautions Acute Start: 08/11/16 01: 11 Freq: Q12H Status: Discharge Document 08/11/16 01:30 CRS (Rec: 08/11/16 03:07 CRS [id number]) [facility] Fall Risk Assessment Tool Age 60-69 years (1 point) Fall History No falls within last 6 months (0 points) Elimination, Bowel, and Urine Urgency/frequency and incontinence (4 points) Medications: Includes CLERICAL ASSISTANT/opiates, On 1 high fall risk drug (3 antivulsants, ant-hypertensives, points) diuretics, hypnotics, Patient Care Equipment: Any equipment One present (1 point) that tethers patient (e.g. IV infusions, chest tube, indwelling Mobility Unsteady gait (2 points) Cognition N/A (0 points) Total Fall Risk Score 11 Fall Risk Category Moderate Risk (6-13) Fall Risk Interventions Low Risk Interventions Bed in lowest position Top side rails up x 2 Secure brake on bed Use properly fitting non-skid footwear Call light and frequently needed objects within reach Encourage patients/families to call for assistance when needed Fall education including risk assessment, injury risk and routine/ Inspect environment for safety and communication risk Supervise and assist with toileting/ADLs as needed Moderate Risk Interventions Institue fall-risk tooklit ( yellow flag, yellow non-skid socks and Frequent reorientation for confused patients High Risk Interventions Remain with patient while toileting Activate bed/chair exit Document 08/11/16 08:50 SLT (Rec: 08/11/16 11:04 SLT [id number]) [facility] Fall Risk Assessment Tool Age 60-69 years (1 point) Fall History No falls within last 6 months (0 points) Elimination, Bowel, and Urine Urgency/frequency and incontinence (4 points) Medications: Includes CLERICAL ASSISTANT/opiates, On 1 high fall risk drug (3 antivulsants, ant-hypertensives, points) diuretics, hypnotics, Patient Care Equipment: Any equipment One present (1 point) that tethers patient (e.g. IV infusions, chest tube, indwelling Mobility Unsteady gait (2 points) Cognition N/A (0 points) Total Fall Risk Score 11 Fall Risk Category Moderate Risk (6-13) Fall Risk Interventions Low Risk Interventions Bed in lowest position Top side rails up x 2 Secure brake on bed Use properly fitting non-skid footwear Call light and frequently needed objects within reach Encourage patients/families to call for assistance when needed Fall education including risk assessment, injury risk and routine/ Inspect environment for safety and communication risk Supervise and assist with toileting/ADLs as needed Moderate Risk Interventions Institue fall-risk tooklit ( yellow flag, yellow non-skid socks and Frequent reorientation for confused patients High Risk Interventions Remain with patient while toileting Activate bed/chair exit Obtain PT consult, if pat Document 08/11/16 21:12 [id number] (Rec: 08/12/16 06:02 [id number]) [facility] Fall Risk Assessment Tool Age 60-69 years (1 point) Fall History No falls within last 6 months (0 points) Elimination, Bowel, and Urine Urgency/frequency and incontinence (4 points) Medications: Includes CLERICAL ASSISTANT/opiates, On 1 high fall risk drug (3 antivulsants, ant-hypertensives, points) diuretics, hypnotics, Patient Care Equipment: Any equipment One present (1 point) that tethers patient (e.g. IV infusions, chest tube, indwelling Mobility Unsteady gait (2 points) Cognition N/A (0 points) Total Fall Risk Score 11 Fall Risk Category Moderate Risk (6-13) Fall Risk Interventions Low Risk Interventions Bed in lowest position Top side rails up x 2 Secure brake on bed Use properly fitting non-skid footwear Call light and frequently needed objects within reach Encourage patients/families to call for assistance when needed Fall education including risk assessment, injury risk and routine/ Inspect environment for safety and communication risk Supervise and assist with toileting/ADLs as needed Moderate Risk Interventions Institue fall-risk tooklit ( yellow flag, yellow non-skid socks and Frequent reorientation for confused patients High Risk Interventions Remain with patient while toileting Activate bed/chair exit Obtain PT consult, if pat Document 08/12/16 08:00 SLT (Rec: 08/12/16 09:34 SLT [id number]) [facility] Fall Risk Assessment Tool Age 60-69 years (1 point) Fall History No falls within last 6 months (0 points) Elimination, Bowel, and Urine Urgency/frequency and incontinence (4 points) Medications: Includes CLERICAL ASSISTANT/opiates, On 1 high fall risk drug (3 antivulsants, ant-hypertensives, points) diuretics, hypnotics, Patient Care Equipment: Any equipment One present (1 point) that tethers patient (e.g. IV infusions, chest tube, indwelling Mobility Unsteady gait (2 points) Cognition N/A (0 points) Total Fall Risk Score 11 Fall Risk Category Moderate Risk (6-13) Fall Risk Interventions Low Risk Interventions Bed in lowest position Top side rails up x 2 Secure brake on bed Use properly fitting non-skid footwear Call light and frequently needed objects within reach Encourage patients/families to call for assistance when needed Fall education including risk assessment, injury risk and routine/ Inspect environment for safety and communication risk Supervise and assist with toileting/ADLs as needed Moderate Risk Interventions Institue fall-risk tooklit ( yellow flag, yellow non-skid socks and High Risk Interventions Remain with patient while toileting Obtain PT consult, if pat Document 08/12/16 22:14 [id number] (Rec: 08/13/16 03:35 [id number]) [facility] Fall Risk Assessment Tool Age 60-69 years (1 point) Fall History No falls within last 6 months (0 points) Elimination, Bowel, and Urine Urgency/frequency and incontinence (4 points) Medications: Includes CLERICAL ASSISTANT/opiates, On 1 high fall risk drug (3 antivulsants, ant-hypertensives, points) diuretics, hypnotics, Patient Care Equipment: Any equipment One present (1 point) that tethers patient (e.g. IV infusions, chest tube, indwelling Mobility Unsteady gait (2 points) Cognition N/A (0 points) Total Fall Risk Score 11 Fall Risk Category Moderate Risk (6-13) Fall Risk Interventions Low Risk Interventions Bed in lowest position Top side rails up x 2 Secure brake on bed Use properly fitting non-skid footwear Call light and frequently needed objects within reach Encourage patients/families to call for assistance when needed Fall education including risk assessment, injury risk and routine/ Inspect environment for safety and communication risk Supervise and assist with toileting/ADLs as needed Moderate Risk Interventions Institue fall-risk tooklit ( yellow flag, yellow non-skid socks and High Risk Interventions Remain with patient while toileting Obtain PT consult, if pat Document 08/13/16 08:00 [facility] (Rec: 08/13/16 09:54 [id number] Fall Risk Assessment Tool Age 60-69 years (1 point) Fall History No falls within last 6 months (0 points) Elimination, Bowel, and Urine Urgency/frequency and incontinence (4 points) Medications: Includes CLERICAL ASSISTANT/opiates, On 1 high fall risk drug (3 antivulsants, ant-hypertensives, points) diuretics, hypnotics, Patient Care Equipment: Any equipment One present (1 point) that tethers patient (e.g. IV infusions, chest tube, indwelling Mobility Unsteady gait (2 points) Cognition N/A (0 points) Total Fall Risk Score 11 Fall Risk Category Moderate Risk (6-13) Fall Risk Interventions Low Risk Interventions Bed in lowest position Top side rails up x 2 Secure brake on bed Use properly fitting non-skid footwear Call light and frequently needed objects within reach Encourage patients/families to call for assistance when needed Fall education including risk assessment, injury risk and routine/ Inspect environment for safety and communication risk Supervise and assist with toileting/ADLs as needed Moderate Risk Interventions Institue fall-risk tooklit ( yellow flag, yellow non-skid socks and Document 08/13/16 20:22 [facility] (Rec: 08/13/16 20:25 [facility] [id number]) [facility] Fall Risk Assessment Tool Age 60-69 years (1 point) Fall History No falls within last 6 months (0 points) Elimination, Bowel, and Urine Urgency/frequency and incontinence (4 points) Medications: Includes CLERICAL ASSISTANT/opiates, On 1 high fall risk drug (3 antivulsants, ant-hypertensives, points) diuretics, hypnotics, Patient Care Equipment: Any equipment One present (1 point) that tethers patient (e.g. IV infusions, chest tube, indwelling Mobility Unsteady gait (2 points) Cognition N/A (0 points) Total Fall Risk Score 11 Fall Risk Category Moderate Risk (6-13) Fall Risk Interventions Low Risk Interventions Bed in lowest position Top side rails up x 2 Secure brake on bed Use properly fitting non-skid footwear Call light and frequently needed objects within reach Encourage patients/families to call for assistance when needed Fall education including risk assessment, injury risk and routine/ Inspect environment for safety and communication risk Supervise and assist with toileting/ADLs as needed Moderate Risk Interventions Institue fall-risk tooklit ( yellow flag, yellow non-skid socks and High Risk Interventions Remain with patient while toileting Obtain PT consult, if pat Document 08/14/16 08:34 EPR (Rec: 08/14/16 08:38 EPR [id number]) [facility] Fall Risk Assessment Tool Age 60-69 years (1 point) Fall History No falls within last 6 months (0 points) Elimination, Bowel, and Urine Urgency/frequency and incontinence (4 points) Medications: Includes CLERICAL ASSISTANT/opiates, On 1 high fall risk drug (3 antivulsants, ant-hypertensives, points) diuretics, hypnotics, Patient Care Equipment: Any equipment One present (1 point) that tethers patient (e.g. IV infusions, chest tube, indwelling Mobility Unsteady gait (2 points) Cognition N/A (0 points) Total Fall Risk Score 11 Fall Risk Category Moderate Risk (6-13) Fall Risk Interventions Low Risk Interventions Bed in lowest position Top side rails up x 2 Secure brake on bed Use properly fitting non-skid footwear Call light and frequently needed objects within reach Encourage patients/families to call for assistance when needed Fall education including risk assessment, injury risk and routine/ Inspect environment for safety and communication risk Supervise and assist with toileting/ADLs as needed Moderate Risk Interventions Institue fall-risk tooklit ( yellow flag, yellow non-skid socks and High Risk Interventions Remain with patient while toileting Obtain PT consult, if pat Document 08/14/16 22:02 [facility] (Rec: 08/14/16 22:05 [id number]) [facility] Fall Risk Assessment Tool Age 60-69 years (1 point) Fall History No falls within last 6 months (0 points) Elimination, Bowel, and Urine Urgency/frequency and incontinence (4 points) Medications: Includes CLERICAL ASSISTANT/opiates, On 1 high fall risk drug (3 antivulsants, ant-hypertensives, points) diuretics, hypnotics, Patient Care Equipment: Any equipment One present (1 point) that tethers patient (e.g. IV infusions, chest tube, indwelling Mobility Unsteady gait (2 points) Cognition N/A (0 points) Total Fall Risk Score 11 Fall Risk Category Moderate Risk (6-13) Fall Risk Interventions Low Risk Interventions Bed in lowest position Top side rails up x 2 Secure brake on bed Use properly fitting non-skid footwear Call light and frequently needed objects within reach Encourage patients/families to call for assistance when needed Fall education including risk assessment, injury risk and routine/ Inspect environment for safety and communication risk Supervise and assist with toileting/ADLs as needed Moderate Risk Interventions Institue fall-risk tooklit ( yellow flag, yellow non-skid socks and Document 08/15/16 08:54 [facility] (Rec: 08/15/16 08:56 [id number] Fall Risk Assessment Tool Age 60-69 years (1 point) Fall History No falls within last 6 months (0 points) Elimination, Bowel, and Urine Urgency/frequency and incontinence (4 points) Medications: Includes CLERICAL ASSISTANT/opiates, On 1 high fall risk drug (3 antivulsants, ant-hypertensives, points) diuretics, hypnotics, Patient Care Equipment: Any equipment One present (1 point) that tethers patient (e.g. IV infusions, chest tube, indwelling Mobility Unsteady gait (2 points) Cognition N/A (0 points) Total Fall Risk Score 11 Fall Risk Category Moderate Risk (6-13) Fall Risk Interventions Low Risk Interventions Bed in lowest position Top side rails up x 2 Secure brake on bed Use properly fitting non-skid footwear Call light and frequently needed objects within reach Encourage patients/families to call for assistance when needed Fall education including risk assessment, injury risk and routine/ Inspect environment for safety and communication risk Supervise and assist with toileting/ADLs as needed Moderate Risk Interventions Institue fall-risk tooklit ( yellow flag, yellow non-skid socks and High Risk Interventions Remain with patient while toileting Obtain PT consult, if pat Document 08/15/16 11:45 [facility] (Rec: 08/15/16 13:42 [id number]) [facility] [place] Fall Risk Assessment Tool Age 60-69 years (1 point) Fall History No falls within last 6 months (0 points) Elimination, Bowel, and Urine Urgency/frequency and incontinence (4 points) Medications: Includes CLERICAL ASSISTANT/opiates, On 1 high fall risk drug (3 antivulsants, ant-hypertensives, points) diuretics, hypnotics, Patient Care Equipment: Any equipment One present (1 point) that tethers patient (e.g. IV infusions, chest tube, indwelling Mobility Unsteady gait (2 points) Cognition N/A (0 points) Total Fall Risk Score 11 Fall Risk Category Moderate Risk (6-13) Fall Risk Interventions Low Risk Interventions Bed in lowest position Top side rails up x 2 Secure brake on bed Use properly fitting non-skid footwear Call light and frequently needed objects within reach Encourage patients/families to call for assistance when needed Fall education including risk assessment, injury risk and routine/ Inspect environment for safety and communication risk Supervise and assist with toileting/ADLs as needed Moderate Risk Interventions Institue fall-risk tooklit ( yellow flag, yellow non-skid socks and Document 08/15/16 20:00 BE (Rec: 08/15/16 22:40 [id number] [place] Fall Risk Assessment Tool High Fall Risk-Implement High Fall Risk History of more than one fall interventions per protocol within 6 months before admission Fall Risk Category High Risk Fall Risk Interventions Low Risk Interventions Bed in lowest position Top side rails up x 2 Secure brake on bed Use properly fitting non-skid footwear Call light and frequently needed objects within reach Encourage patients/families to call for assistance when needed Fall education including risk assessment, injury risk and routine/ Inspect environment for safety and communication risk Supervise and assist with toileting/ADLs as needed Moderate Risk Interventions Institue fall-risk tooklit ( yellow flag, yellow non-skid socks and High Risk Interventions Remain with patient while toileting Document 08/16/16 08:30 RDC (Rec: 08/16/16 10:06 [facility] [id number]) [facility] [place] Fall Risk Assessment Tool High Fall Risk-Implement High Fall Risk History of more than one fall interventions per protocol within 6 months before admission Fall Risk Category High Risk Fall Risk Interventions Low Risk Interventions Bed in lowest position Top side rails up x 2 Secure brake on bed Use properly fitting non-skid footwear Call light and frequently needed objects within reach Encourage patients/families to call for assistance when needed Fall education including risk assessment, injury risk and routine/ Inspect environment for safety and communication risk Supervise and assist with toileting/ADLs as needed Moderate Risk Interventions Institue fall-risk tooklit ( yellow flag, yellow non-skid socks and High Risk Interventions Remain with patient while toileting Document 08/16/16 21:40 BEF (Rec: 08/17/16 00:18 BEF [facility] [id number] [facility] [place] Fall Risk Assessment Tool High Fall Risk-Implement High Fall Risk History of more than one fall interventions per protocol within 6 months before admission Fall Risk Category High Risk Fall Risk Interventions Low Risk Interventions Bed in lowest position Top side rails up x 2 Secure brake on bed Use properly fitting non-skid footwear Call light and frequently needed objects within reach Encourage patients/families to call for assistance when needed Fall education including risk assessment, injury risk and routine/ Inspect environment for safety and communication risk Supervise and assist with toileting/ADLs as needed Moderate Risk Interventions Institue fall-risk tooklit ( yellow flag, yellow non-skid socks and High Risk Interventions Remain with patient while toileting Document 08/17/16 09:10 AYW (Rec: 08/17/16 10:06 AYW [facility] [id number] [email or web address] Fall Risk Assessment Tool Age 60-69 years (1 point) Fall History One fall within the last 6 months before admission (5 points) Elimination, Bowel, and Urine N/A (0 pts) Medications: Includes CLERICAL ASSISTANT/opiates, On 2 or more high fall risk antivulsants, ant-hypertensives, drugs (5 points) diuretics, hypnotics, Patient Care Equipment: Any equipment None present (0 points) that tethers patient (e.g. IV infusions, chest tube, indwelling Mobility Requires assistance or supervision for transfer/ ambulation (2 points) Cognition N/A (0 points) Total Fall Risk Score 13 Fall Risk Category Moderate Risk (6-13) Fall Risk Interventions Low Risk Interventions Bed in lowest position Top side rails up x 2 Secure brake on bed Use properly fitting non-skid footwear Call light and frequently needed objects within reach Encourage patients/families to call for assistance when needed Fall education including risk assessment, injury risk and routine/ Inspect environment for safety and communication risk Supervise and assist with toileting/ADLs as needed Moderate Risk Interventions Institue fall-risk tooklit ( yellow flag, yellow non-skid socks and Document 08/18/16 06:19 KMA (Rec: 08/18/16 06:23 KMA [facility] [id number]) [facility] [place] Fall Risk Assessment Tool High Fall Risk-Implement High Fall Risk History of more than one fall interventions per protocol within 6 months before admission Fall Risk Category High Risk Fall Risk Interventions Low Risk Interventions Bed in lowest position Top side rails up x 2 Secure brake on bed Use properly fitting non-skid footwear Call light and frequently needed objects within reach Encourage patients/families to call for assistance when needed Fall education including risk assessment, injury risk and routine/ Inspect environment for safety and communication risk Supervise and assist with toileting/ADLs as needed Moderate Risk Interventions Institue fall-risk tooklit ( yellow flag, yellow non-skid socks and Document 08/18/16 08:57 KMB (Rec: 08/18/16 09:05 KMB [facility] [id number] [email or web address] Fall Risk Assessment Tool High Fall Risk-Implement High Fall Risk History of more than one fall interventions per protocol within 6 months before admission Fall Risk Category High Risk Fall Risk Interventions Low Risk Interventions Bed in lowest position Top side rails up x 2 Secure brake on bed Use properly fitting non-skid footwear Call light and frequently needed objects within reach Encourage patients/families to call for assistance when needed Fall education including risk assessment, injury risk and routine/ Inspect environment for safety and communication risk Supervise and assist with toileting/ADLs as needed Moderate Risk Interventions Institue fall-risk tooklit ( yellow flag, yellow non-skid socks and High Risk Interventions Remain with patient while toileting Document 08/18/16 18:00 JKB (Rec: 08/18/16 19:56 JKB [id number]) [facility] Fall Risk Assessment Tool High Fall Risk-Implement High Fall Risk History of more than one fall interventions per protocol within 6 months before admission Fall Risk Category High Risk Fall Risk Interventions Low Risk Interventions Bed in lowest position Top side rails up x 2 Secure brake on bed Use properly fitting non-skid footwear Call light and frequently needed objects within reach Encourage patients/families to call for assistance when needed Fall education including risk assessment, injury risk and routine/ Inspect environment for safety and communication risk Supervise and assist with toileting/ADLs as needed Moderate Risk Interventions Institue fall-risk tooklit ( yellow flag, yellow non-skid socks and High Risk Interventions Remain with patient while toileting Document 08/19/16 08:20 SLT (Rec: 08/19/16 09:46 SLT [facility] [id number]) [facility] Fall Risk Assessment Tool High Fall Risk-Implement High Fall Risk History of more than one fall interventions per protocol within 6 months before admission Fall Risk Category High Risk Fall Risk Interventions Low Risk Interventions Bed in lowest position Top side rails up x 2 Secure brake on bed Use properly fitting non-skid footwear Call light and frequently needed objects within reach Encourage patients/families to call for assistance when needed Fall education including risk assessment, injury risk and routine/ Inspect environment for safety and communication risk Supervise and assist with toileting/ADLs as needed Moderate Risk Interventions Institue fall-risk tooklit ( yellow flag, yellow non-skid socks and High Risk Interventions Remain with patient while toileting Obtain PT consult, if pat Flu Vaccine Screen Start: 08/10/16 23: 41 Freq: Status: Discharge Document 08/19/16 11:40 SLT (Rec: 08/19/16 11:43 SLT 2A16) Flu Vaccine Screen Influenza vaccine indications 6 months of age or older Chronic heart or lung disease (including asthma) Diabetes Mellitus Flu Vaccine Contraindications Patient Refused Vaccine Information Sheet Given(Version Yes 01/11/2015) Patient meets criteria for vaccination No and consents to receive it Document 08/19/16 12:07 SLT (Rec: 08/19/16 12:14 SLT 2A16) Flu Vaccine Screen Influenza vaccine indications 6 months of age or older Chronic heart or lung disease (including asthma) Diabetes Mellitus Flu Vaccine Contraindications Patient Refused Vaccine Information Sheet Given(Version Yes 01/11/2015) Patient meets criteria for vaccination No and consents to receive it Document 08/19/16 12:14 SLT (Rec: 08/19/16 12:15 SLT 2A16) Flu Vaccine Screen Influenza vaccine indications 6 months of age or older Chronic heart or lung disease (including asthma) Diabetes Mellitus Flu Vaccine Contraindications Patient Refused Vaccine Information Sheet Given(Version Yes 01/11/2015) Patient meets criteria for vaccination No and consents to receive it Document 08/19/16 13:55 AAS (Rec: 08/19/16 13:59 AAS 2A14) Flu Vaccine Screen Influenza vaccine indications 6 months of age or older Resident of a detention or chronic care facility Diabetes Mellitus Flu Vaccine Contraindications Patient Refused Vaccine Information Sheet Given(Version Yes 01/11/2015) Patient meets criteria for vaccination No and consents to receive it Glucose, blood point of care measurement Start: 08/11/16 00: 18 Freq: ACHS Status: Discharge Document 08/11/16 01:30 CDP (Rec: 08/11/16 01:40 CDP [id number]) Blood Glucose Assessment Blood Glucose* 372 Hypoglycemia Symptoms None Hyperglycemia Symptoms None Action Taken RN aware. Document 08/11/16 08:01 JRK (Rec: 08/11/16 08:02 JRK 2A19) Blood Glucose Assessment Blood Glucose* 318 Hypoglycemia Symptoms None Hyperglycemia Symptoms None Action Taken RN Notified Document 08/11/16 12:07 JRK (Rec: 08/11/16 12:07 JRK 2A19) Blood Glucose Assessment Blood Glucose* 345 Hypoglycemia Symptoms None Hyperglycemia Symptoms None Action Taken RN NOtified Document 08/11/16 21:56 SPG (Rec: 08/11/16 21:59 SPG 2A16) Blood Glucose Assessment Blood Glucose* 375 Document 08/12/16 05:45 SPG (Rec: 08/12/16 05:45 SPG 2A16) Blood Glucose Assessment Blood Glucose* 400 Document 08/12/16 07:43 MVJ (Rec: 08/12/16 07:45 MVJ 2A16) Blood Glucose Assessment Blood Glucose* 371 Document 08/12/16 11:20 MVJ (Rec: 08/12/16 11:26 MVJ 2A16) Blood Glucose Assessment Blood Glucose* 446 Hypoglycemia Symptoms None Hyperglycemia Symptoms None Document 08/12/16 15:22 AAS (Rec: 08/12/16 15:22 AAS 2A10) Blood Glucose Assessment Blood Glucose* 386 Hypoglycemia Symptoms None Hyperglycemia Symptoms None Action Taken nurse aware Document 08/12/16 21:35 SPG (Rec: 08/12/16 21:36 SPG 2A16) Blood Glucose Assessment Blood Glucose* 355 Document 08/13/16 07:11 CDB (Rec: 08/13/16 07:12 CDB 2A16) Blood Glucose Assessment Blood Glucose* 334 Action Taken RN notified Document 08/13/16 11:18 CDB (Rec: 08/13/16 11:19 CDB 2A16) Blood Glucose Assessment Blood Glucose* 455 Action Taken RN notified Document 08/13/16 11:50 RDC (Rec: 08/13/16 12:09 RDC [id number]) Blood Glucose Assessment Blood Glucose* 433 Document 08/13/16 16:15 CDB (Rec: 08/13/16 16:16 CDB 2A16) Blood Glucose Assessment Blood Glucose* 530 Action Taken Rn notified Document 08/13/16 16:30 CDB (Rec: 08/13/16 16:40 CDB 2A16) Blood Glucose Assessment Blood Glucose* 439 Action Taken RN notified Document 08/14/16 21:22 HMF (Rec: 08/14/16 21:31 HMF 2A16) Blood Glucose Assessment Blood Glucose* 307 Action Taken RN notified Document 08/15/16 07:27 LHG (Rec: 08/15/16 07:31 LHG 2A16) Blood Glucose Assessment Blood Glucose* 247 Hypoglycemia Symptoms None Hyperglycemia Symptoms None Blood Glucose > 180 Action Taken rn notified Document 08/15/16 11:31 APF (Rec: 08/15/16 11:37 APF 2A17) Blood Glucose Assessment Blood Glucose* 308 Action Taken Rn notified Document 08/15/16 16:33 LHG (Rec: 08/15/16 16:40 LHG 2A16) Blood Glucose Assessment Blood Glucose* 373 Hypoglycemia Symptoms None Hyperglycemia Symptoms None Action Taken Rn notified Document 08/15/16 19:15 HMF (Rec: 08/15/16 19:18 HMF 2A16) Blood Glucose Assessment Blood Glucose* 379 Action Taken RN notified Document 08/16/16 07:34 LHG (Rec: 08/16/16 07:39 LHG 2A17) Blood Glucose Assessment Blood Glucose* 289 Hypoglycemia Symptoms None Hyperglycemia Symptoms None Blood Glucose > 180 Action Taken rn notified Document 08/16/16 11:00 LHG (Rec: 08/16/16 11:32 LHG 2A17) Blood Glucose Assessment Blood Glucose* 296 Hypoglycemia Symptoms None Hyperglycemia Symptoms None Blood Glucose > 180 Action Taken rn notified Document 08/16/16 16:22 LHG (Rec: 08/16/16 16:29 LHG 2A17) Blood Glucose Assessment Blood Glucose* 287 Hypoglycemia Symptoms None Hyperglycemia Symptoms None Blood Glucose > 180 Action Taken rn notified Document 08/16/16 20:50 HMF (Rec: 08/16/16 20:57 HMF 2A17) Blood Glucose Assessment Blood Glucose* 336 Action Taken RN notified Document 08/17/16 07:16 VVP (Rec: 08/17/16 07:17 VVP 2A17) Blood Glucose Assessment Blood Glucose* 300 Action Taken notified nurse Document 08/17/16 11:06 VVP (Rec: 08/17/16 11:10 VVP 2A17) Blood Glucose Assessment Blood Glucose* 326 Action Taken notified nurse Document 08/17/16 16:00 VVP (Rec: 08/17/16 16:00 VVP 2A19) Blood Glucose Assessment Blood Glucose* 285 Action Taken notified nurse Document 08/17/16 20:32 KMA (Rec: 08/17/16 20:32 KMA 2A10) Blood Glucose Assessment Blood Glucose* 310 Hypoglycemia Symptoms None Hyperglycemia Symptoms None Action Taken ssi Document 08/18/16 07:31 VVP (Rec: 08/18/16 07:32 VVP 2A17) Blood Glucose Assessment Blood Glucose* 241 Action Taken notified nurse Document 08/18/16 12:01 KMB (Rec: 08/18/16 12:01 KMB 2A14) Blood Glucose Assessment Blood Glucose* 301 Hypoglycemia Symptoms None Hyperglycemia Symptoms None Document 08/18/16 16:24 VVP (Rec: 08/18/16 16:24 VVP 17) Blood Glucose Assessment Blood Glucose* 301 Action Taken notified nurse Document 08/18/16 20:52 DKH (Rec: 08/18/16 20:54 DKH [id number]) Blood Glucose Assessment Blood Glucose* 309 Hyperglycemia Symptoms None Blood Glucose > 180 Action Taken rn notified Document 08/19/16 08:01 ARB (Rec: 08/19/16 08:09 ARB [facility]) Blood Glucose Assessment Blood Glucose* 233 Hypoglycemia Symptoms None Hyperglycemia Symptoms None Action Taken put on board Document 08/19/16 11:41 ARB (Rec: 08/19/16 11:46 ARB [facility]) Blood Glucose Assessment Blood Glucose* 321 Hypoglycemia Symptoms None Hyperglycemia Symptoms None Action Taken put on board Glucose, blood point of care measurement Start: 08/11/16 01: 40 Freq: Status: Discharge Document 08/11/16 15:40 [id number] (Rec: 08/11/16 15:43 [id number] [facility] [id number] Blood Glucose Assessment Blood Glucose* 398 Hypoglycemia Symptoms None Hyperglycemia Symptoms None Glucose, blood point of care measurement Start: 08/13/16 15: 39 Freq: Q1H Status: Complete Document 08/13/16 17:30 KMR (Rec: 08/13/16 17:32 KMR [id number]) Blood Glucose Assessment Blood Glucose* 395 Hypoglycemia Symptoms None Hyperglycemia Symptoms None Action Taken Will notify RN Document 08/13/16 18:47 BAW (Rec: 08/13/16 18:48 BAW [facility] [id number]) Blood Glucose Assessment Blood Glucose* 396 Hypoglycemia Symptoms None Hyperglycemia Symptoms None Document 08/13/16 20:00 EJC (Rec: 08/13/16 20:21 [id number] Blood Glucose Assessment Blood Glucose* 346 Document 08/13/16 21:00 BAW (Rec: 08/13/16 21:11 BAW [facility] [id number]) Blood Glucose Assessment Blood Glucose* 324 Hypoglycemia Symptoms None Hyperglycemia Symptoms None Document 08/13/16 22:00 EJC (Rec: 08/13/16 22:12 [id number] Blood Glucose Assessment Blood Glucose* 258 Document 08/13/16 23:03 BAW (Rec: 08/13/16 23:03 BAW 2A19) Blood Glucose Assessment Blood Glucose* 312 Hypoglycemia Symptoms None Hyperglycemia Symptoms None Document 08/14/16 00:00 EJC (Rec: 08/14/16 00:04 [facility] [id number]) Blood Glucose Assessment Blood Glucose* 328 Document 08/14/16 01:03 BAW (Rec: 08/14/16 01:03 BA 2A19) Blood Glucose Assessment Blood Glucose* 318 Hypoglycemia Symptoms None Hyperglycemia Symptoms None Document 08/14/16 01:58 EJ (Rec: 08/14/16 01:58 [id number][facility] Blood Glucose Assessment Blood Glucose* 268 Document 08/14/16 03:03 [facility] (Rec: 08/14/16 03:03 [id number] Blood Glucose Assessment Blood Glucose* 217 Document 08/14/16 04:02 [facility] (Rec: 08/14/16 04:02 [id number][facility] Blood Glucose Assessment Blood Glucose* 159 Document 08/14/16 06:00 BAW (Rec: 08/14/16 06:33 BA 2A19) Blood Glucose Assessment Blood Glucose* 191 Document 08/14/16 06:54 EJ (Rec: 08/14/16 06:54 [id number] Blood Glucose Assessment Blood Glucose* 103 Document 08/14/16 08:00 CDB (Rec: 08/14/16 08:02 CDB 2A16) Blood Glucose Assessment Blood Glucose* 111 Hypoglycemia Symptoms None Hyperglycemia Symptoms None Action Taken RN notified Document 08/14/16 11:03 EPR (Rec: 08/14/16 11:04 EPR 2A10) Blood Glucose Assessment Blood Glucose* 124 Hypoglycemia Symptoms None Hyperglycemia Symptoms None Document 08/14/16 12:00 CDB (Rec: 08/14/16 12:18 CDB 2A16) Blood Glucose Assessment Blood Glucose* 131 Hypoglycemia Symptoms None Hyperglycemia Symptoms None Action Taken RN notified Hygiene activity Start: 08/11/16 01: 11 Freq: .PRN Status: Discharge Document 08/12/16 01:15 SPG (Rec: 08/12/16 01:16 SPG 2A16) Hygiene Linen Change Complete Document 08/12/16 14:12 MVJ (Rec: 08/12/16 14:12 MVJ 2A16) Hygiene Bath Type Full Bed Bath Bathing Ability Independent Linen Change Complete Document 08/13/16 01:06 SPG (Rec: 08/13/16 01:08 SPG 16) Hygiene Bath Type Full Bed Bath Bathing Ability 2 Person Assist Mendez Care Completed By Staff Linen Change Complete Other Hygiene Hair Washed Document 08/13/16 17:13 CDB (Rec: 08/13/16 17:13 CDB 16) Hygiene Bath Type Full Bed Bath Bathing Ability 1 Person Assist Linen Change Complete Document 08/15/16 10:01 LHG (Rec: 08/15/16 10:01 LHG 16) Hygiene Bath Type Postpone Until Later Document 08/16/16 12:15 LHG (Rec: 08/16/16 12:18 LHG 17) Hygiene Bath Type Refused 08/16/16 12:15 Nurse Note by Tavo Lawson pt said that he had been washed up last night 08/15/16. therefore does not want washed up today 08/16/16. If the pt was washed up it was not charted. Initialized on 08/16/16 12:15 - END OF NOTE Document 08/16/16 22:00 HMF (Rec: 08/16/16 22:01 HMF 17) Hygiene Bath Type Refused Document 08/17/16 21:29 HMF (Rec: 08/17/16 21:29 HMF [facility]) Hygiene Bath Type Full Bed Bath Bathing Ability 1 Person Assist Linen Change Complete Document 08/18/16 22:44 DKH (Rec: 08/18/16 22:44 DKH 17) Hygiene Bath Type Postpone Until Later Document 08/19/16 14:05 ARB (Rec: 08/19/16 14:05 ARB 17) Hygiene Bath Type Refused Linen Change Refused IV-Invasive Line Management Start: 08/11/16 01: 11 Freq: Q4H Status: Discharge Document 08/11/16 01:30 CRS (Rec: 08/11/16 03:07 CRS 2A14) IV/Invasive Line Assessment Right Forearm Date of Insertion 08/10/16 Time of Insertion 21:15 Reason for Line Insertion/Rationale for Replace Lost Fluids Insertion Provide Access for IV Medication(s) Provide Access for Emergency Gauge (gauge) 20 IV Catheter Type Peripheral IV Site Observation Patent Site Observation Intervention Inspected Line Dressing Applied Window Dressing Dry/Intact Line Care Saline Flush Document 08/11/16 05:06 CRS (Rec: 08/11/16 05:06 CRS 2A14) IV/Invasive Line Assessment Right Forearm Date of Insertion 08/10/16 Time of Insertion 21:15 Reason for Line Insertion/Rationale for Replace Lost Fluids Insertion Provide Access for IV Medication(s) Provide Access for Emergency Gauge (gauge) 20 IV Catheter Type Peripheral IV Site Observation Patent Site Observation Intervention Inspected Line Dressing Applied Window Dressing Dry/Intact Document 08/11/16 08:50 SLT (Rec: 08/11/16 11:04 SLT 2A14) IV/Invasive Line Assessment Right Forearm Date of Insertion 08/10/16 Reason for Line Insertion/Rationale for Replace Lost Fluids Insertion Provide Access for IV Medication(s) Provide Access for Emergency Gauge (gauge) 20 IV Catheter Type Peripheral IV Site Observation Patent Site Observation Intervention Inspected Line Dressing Applied Window Dressing Dry/Intact Labs drawn from Line* No Document 08/11/16 12:26 SLT (Rec: 08/11/16 12:38 SLT 2A14) IV/Invasive Line Assessment Right Forearm Date of Insertion 08/10/16 Reason for Line Insertion/Rationale for Replace Lost Fluids Insertion Provide Access for IV Medication(s) Provide Access for Emergency Gauge (gauge) 20 IV Catheter Type Peripheral IV Site Observation Patent Site Observation Intervention Inspected Line Dressing Applied Window Dressing Dry/Intact Labs drawn from Line* No Document 08/11/16 16:07 SLT (Rec: 08/11/16 16:21 SLT 2A14) IV/Invasive Line Assessment Right Forearm Date of Insertion 08/10/16 Reason for Line Insertion/Rationale for Replace Lost Fluids Insertion Provide Access for IV Medication(s) Provide Access for Emergency Gauge (gauge) 20 IV Catheter Type Peripheral IV Site Observation Patent Site Observation Intervention Inspected Line Dressing Applied Window Dressing Dry/Intact Labs drawn from Line* No Document 08/11/16 21:12 [id number] (Rec: 08/12/16 06:02 [id number]) IV/Invasive Line Assessment Right Forearm Date of Insertion 08/10/16 Reason for Line Insertion/Rationale for Replace Lost Fluids Insertion Provide Access for IV Medication(s) Provide Access for Emergency Gauge (gauge) 20 IV Catheter Type Peripheral IV Site Observation Patent Site Observation Intervention Inspected Line Dressing Applied Window Dressing Dry/Intact Line Care Saline Flush Cap(s) Changed Labs drawn from Line* No Document 08/11/16 23:50 [id number] (Rec: 08/12/16 06:04 [id number]) IV/Invasive Line Assessment Right Forearm Date of Insertion 08/10/16 Reason for Line Insertion/Rationale for Replace Lost Fluids Insertion Provide Access for IV Medication(s) Provide Access for Emergency Gauge (gauge) 20 IV Catheter Type Peripheral IV Site Observation Patent Site Observation Intervention Inspected Line Dressing Applied Window Dressing Dry/Intact Line Care Saline Flush Cap(s) Changed Labs drawn from Line* No Document 08/12/16 06:04 [id number] (Rec: 08/12/16 06:07 [id number]) IV/Invasive Line Assessment Right Forearm Date of Insertion 08/10/16 Reason for Line Insertion/Rationale for Replace Lost Fluids Insertion Provide Access for IV Medication(s) Provide Access for Emergency Gauge (gauge) 20 IV Catheter Type Peripheral IV Site Observation Patent Site Observation Intervention Inspected Line Dressing Applied Window Dressing Dry/Intact Line Care Saline Flush Cap(s) Changed Labs drawn from Line* No Document 08/12/16 08:00 SLT (Rec: 08/12/16 09:34 SLT [id number]) IV/Invasive Line Assessment Right Forearm Date of Insertion 08/10/16 Reason for Line Insertion/Rationale for Replace Lost Fluids Insertion Provide Access for IV Medication(s) Provide Access for Emergency Gauge (gauge) 20 IV Catheter Type Peripheral IV Site Observation Patent Site Observation Intervention Inspected Line Dressing Applied Window Dressing Dry/Intact Line Care Saline Flush Labs drawn from Line* No Document 08/12/16 09:00 AAS (Rec: 08/12/16 12:07 AAS [id number]) IV/Invasive Line Assessment Right Forearm Date of Insertion 08/10/16 Reason for Line Insertion/Rationale for Replace Lost Fluids Insertion Provide Access for IV Medication(s) Provide Access for Emergency Gauge (gauge) 20 IV Catheter Type Peripheral IV Site Observation Patent Site Observation Intervention Inspected Line Line Complications Patient Pulled Catheter Out IV-Invasive Line Management Start: 08/12/16 12: 17 Freq: QSHIFT Status: Discharge Document 08/12/16 13:52 KIB (Rec: 08/12/16 13:53 KIB [id number]) IV/Invasive Line Assessment Right Basilic Vein Date of Insertion 08/12/16 Time of Insertion 13:00 Insertion Attempts 1 Reason for Line Insertion/Rationale for Provide Access for IV Insertion Medication(s) Provide Access for Blood Line Insertion Patient Tolerance Tolerated Well Gauge (gauge) 18 IV Catheter Type Extended Peripheral IV Site Observation Patent Site Observation Intervention Virgie IV Inserted Inspected Line Dressing Applied Window Dressing Transparent Dressing Securement Device/Sutures Intact Chlorhexidine Gluconate Impregnated Disc Dry/Intact Date Dressing Last Changed 08/12/16 Line Care Saline Flush P-Locked Dressing Changed Cap(s) Changed Securement Device in Place Check Blood Return Document 08/12/16 16:00 SLT (Rec: 08/12/16 17:53 SLT [id number]) IV/Invasive Line Assessment Right Basilic Vein Date of Insertion 08/12/16 Reason for Line Insertion/Rationale for Provide Access for IV Insertion Medication(s) Provide Access for Blood Gauge (gauge) 18 IV Catheter Type Extended Peripheral IV Site Observation Patent Site Observation Intervention Inspected Line Dressing Applied Window Dressing Transparent Dressing Securement Device/Sutures Intact Chlorhexidine Gluconate Impregnated Disc Dry/Intact Line Care Saline Flush Securement Device in Place Labs drawn from Line* No Document 08/12/16 22:14 [id number] (Rec: 08/13/16 03:35 [id number]) IV/Invasive Line Assessment Right Basilic Vein Date of Insertion 08/12/16 Reason for Line Insertion/Rationale for Replace Lost Fluids Insertion Provide Access for IV Medication(s) Provide Access for Emergency Gauge (gauge) 18 IV Catheter Type Extended Peripheral IV Site Observation Patent Site Observation Intervention Inspected Line Dressing Applied Window Dressing Transparent Dressing Securement Device/Sutures Intact Chlorhexidine Gluconate Impregnated Disc Dry/Intact Line Care Saline Flush Securement Device in Place Labs drawn from Line* No Document 08/13/16 00:18 [id number] (Rec: 08/13/16 07:56 [id number]) IV/Invasive Line Assessment Right Basilic Vein Date of Insertion 08/12/16 Reason for Line Insertion/Rationale for Replace Lost Fluids Insertion Provide Access for IV Medication(s) Provide Access for Emergency Gauge (gauge) 18 IV Catheter Type Extended Peripheral IV Site Observation Patent Site Observation Intervention Inspected Line Dressing Applied Window Dressing Transparent Dressing Securement Device/Sutures Intact Chlorhexidine Gluconate Impregnated Disc Dry/Intact Line Care Saline Flush Securement Device in Place Labs drawn from Line* Yes Document 08/13/16 04:48 [id number] (Rec: 08/13/16 07:59 [id number]) IV/Invasive Line Assessment Right Basilic Vein Date of Insertion 08/12/16 Reason for Line Insertion/Rationale for Replace Lost Fluids Insertion Provide Access for IV Medication(s) Provide Access for Emergency Gauge (gauge) 18 IV Catheter Type Extended Peripheral IV Site Observation Patent Site Observation Intervention Inspected Line Dressing Applied Window Dressing Transparent Dressing Securement Device/Sutures Intact Chlorhexidine Gluconate Impregnated Disc Dry/Intact Line Care Saline Flush Securement Device in Place Labs drawn from Line* Yes Document 08/13/16 08:00 RDC (Rec: 08/13/16 09:54 [id number]) IV/Invasive Line Assessment Right Basilic Vein Date of Insertion 08/12/16 Reason for Line Insertion/Rationale for Replace Lost Fluids Insertion Provide Access for IV Medication(s) Provide Access for Emergency Gauge (gauge) 18 IV Catheter Type Extended Peripheral IV Site Observation Patent Site Observation Intervention Inspected Line Dressing Applied Window Dressing Transparent Dressing Securement Device/Sutures Intact Chlorhexidine Gluconate Impregnated Disc Dry/Intact Line Care Saline Flush Securement Device in Place Document 08/13/16 11:49 RD (Rec: 08/13/16 11:50 [facility]OH[id number]) IV/Invasive Line Assessment Right Basilic Vein Date of Insertion 08/12/16 Reason for Line Insertion/Rationale for Replace Lost Fluids Insertion Provide Access for IV Medication(s) Provide Access for Emergency Gauge (gauge) 18 IV Catheter Type Extended Peripheral IV Site Observation Patent Site Observation Intervention Inspected Line Dressing Applied Window Dressing Transparent Dressing Securement Device/Sutures Intact Chlorhexidine Gluconate Impregnated Disc Dry/Intact Line Care Saline Flush Securement Device in Place Document 08/13/16 15:22 RD (Rec: 08/13/16 15:28 [facility]OH[id number]) IV/Invasive Line Assessment Right Basilic Vein Date of Insertion 08/12/16 Reason for Line Insertion/Rationale for Replace Lost Fluids Insertion Provide Access for IV Medication(s) Provide Access for Emergency Gauge (gauge) 18 IV Catheter Type Extended Peripheral IV Site Observation Patent Site Observation Intervention Inspected Line Dressing Applied Window Dressing Transparent Dressing Securement Device/Sutures Intact Chlorhexidine Gluconate Impregnated Disc Dry/Intact Line Care Saline Flush Securement Device in Place Document 08/13/16 20:22 [facility] (Rec: 08/13/16 20:25 [id number][facility] IV/Invasive Line Assessment Right Basilic Vein Date of Insertion 08/12/16 Reason for Line Insertion/Rationale for Replace Lost Fluids Insertion Provide Access for IV Medication(s) Provide Access for Emergency IV Catheter Type Extended Peripheral IV Site Observation Patent Dressing Applied Window Dressing Transparent Dressing Securement Device/Sutures Intact Chlorhexidine Gluconate Impregnated Disc Dry/Intact Line Care Securement Device in Place Labs drawn from Line* No Document 08/14/16 04:17 [facility] (Rec: 08/14/16 04:18 [id number]) IV/Invasive Line Assessment Right Basilic Vein Date of Insertion 08/12/16 Reason for Line Insertion/Rationale for Replace Lost Fluids Insertion Provide Access for IV Medication(s) Provide Access for Emergency IV Catheter Type Extended Peripheral IV Site Observation Patent Dressing Applied Window Dressing Transparent Dressing Securement Device/Sutures Intact Chlorhexidine Gluconate Impregnated Disc Dry/Intact Line Care Saline Flush Securement Device in Place Line Complications Sluggish Flow Labs drawn from Line* Yes Document 08/14/16 08:34 EPR (Rec: 08/14/16 08:38 EPR [id number]) IV/Invasive Line Assessment Right Basilic Vein Date of Insertion 08/12/16 Reason for Line Insertion/Rationale for Replace Lost Fluids Insertion Provide Access for IV Medication(s) Provide Access for Emergency IV Catheter Type Extended Peripheral IV Site Observation Patent Site Observation Intervention Inspected Line Dressing Applied Window Dressing Transparent Dressing Securement Device/Sutures Intact Chlorhexidine Gluconate Impregnated Disc Dry/Intact Line Care Securement Device in Place Labs drawn from Line* Yes Document 08/14/16 10:34 EPR (Rec: 08/14/16 10:34 EPR [id number]) IV/Invasive Line Assessment Right Basilic Vein Date of Insertion 08/12/16 Reason for Line Insertion/Rationale for Replace Lost Fluids Insertion Provide Access for IV Medication(s) Provide Access for Emergency IV Catheter Type Extended Peripheral IV Site Observation Patent Site Observation Intervention Inspected Line Dressing Applied Window Dressing Transparent Dressing Securement Device/Sutures Intact Chlorhexidine Gluconate Impregnated Disc Dry/Intact Line Care Securement Device in Place Labs drawn from Line* Yes Document 08/14/16 22:02 [facility] (Rec: 08/14/16 22:05 [id number]) IV/Invasive Line Assessment Right Basilic Vein Date of Insertion 08/12/16 Reason for Line Insertion/Rationale for Replace Lost Fluids Insertion Provide Access for IV Medication(s) Provide Access for Emergency IV Catheter Type Extended Peripheral IV Site Observation Patent Site Observation Intervention Inspected Line Dressing Applied Window Dressing Transparent Dressing Securement Device/Sutures Intact Chlorhexidine Gluconate Impregnated Disc Dry/Intact Line Care Securement Device in Place Document 08/15/16 00:42 [facility] (Rec: 08/15/16 00:43 [id number]) IV/Invasive Line Assessment Right Basilic Vein Date of Insertion 08/12/16 Reason for Line Insertion/Rationale for Replace Lost Fluids Insertion Provide Access for IV Medication(s) Provide Access for Emergency IV Catheter Type Extended Peripheral IV Site Observation Patent Dressing Applied Window Dressing Transparent Dressing Securement Device/Sutures Intact Chlorhexidine Gluconate Impregnated Disc Dry/Intact Line Care Saline Flush Securement Device in Place Line Complications No Blood Return Labs drawn from Line* No Document 08/15/16 08:54 [facility] (Rec: 08/15/16 08:56 [id number]) IV/Invasive Line Assessment Right Basilic Vein Date of Insertion 08/12/16 Reason for Line Insertion/Rationale for Replace Lost Fluids Insertion Provide Access for IV Medication(s) Provide Access for Emergency IV Catheter Type Extended Peripheral IV Site Observation Patent Dressing Applied Window Dressing Transparent Dressing Securement Device/Sutures Intact Chlorhexidine Gluconate Impregnated Disc Dry/Intact Line Care Saline Flush Securement Device in Place Line Complications No Blood Return Labs drawn from Line* No Document 08/15/16 11:45 [facility] (Rec: 08/15/16 13:42 [id number]) IV/Invasive Line Assessment Right Basilic Vein Date of Insertion 08/12/16 Reason for Line Insertion/Rationale for Replace Lost Fluids Insertion Provide Access for IV Medication(s) Provide Access for Emergency IV Catheter Type Extended Peripheral IV Site Observation Patent Dressing Applied Window Dressing Transparent Dressing Securement Device/Sutures Intact Chlorhexidine Gluconate Impregnated Disc Dry/Intact Line Care Saline Flush Securement Device in Place Line Complications No Blood Return Document 08/15/16 16:35 [facility] (Rec: 08/15/16 17:56 [id number]) IV/Invasive Line Assessment Right Basilic Vein Date of Insertion 08/12/16 Reason for Line Insertion/Rationale for Replace Lost Fluids Insertion Provide Access for IV Medication(s) Provide Access for Emergency IV Catheter Type Extended Peripheral IV Site Observation Patent Dressing Applied Window Dressing Transparent Dressing Securement Device/Sutures Intact Chlorhexidine Gluconate Impregnated Disc Dry/Intact Line Care Saline Flush Securement Device in Place Line Complications No Blood Return Document 08/15/16 20:00 BEF (Rec: 08/15/16 22:40 BEF [id number]) IV/Invasive Line Assessment Right Basilic Vein Date of Insertion 08/12/16 Reason for Line Insertion/Rationale for Replace Lost Fluids Insertion Provide Access for IV Medication(s) Provide Access for Emergency IV Catheter Type Extended Peripheral IV Site Observation Patent Site Observation Intervention Inspected Line Dressing Applied Window Dressing Transparent Dressing Securement Device/Sutures Intact Chlorhexidine Gluconate Impregnated Disc Dry/Intact Line Care Saline Flush Securement Device in Place Check Blood Return Document 08/15/16 22:40 BEF (Rec: 08/15/16 22:40 BEF [id number]) IV/Invasive Line Assessment Right Basilic Vein Date of Insertion 08/12/16 Reason for Line Insertion/Rationale for Replace Lost Fluids Insertion Provide Access for IV Medication(s) Provide Access for Emergency IV Catheter Type Extended Peripheral IV Site Observation Patent Site Observation Intervention Inspected Line Dressing Applied Window Dressing Transparent Dressing Securement Device/Sutures Intact Chlorhexidine Gluconate Impregnated Disc Dry/Intact Line Care Saline Flush Securement Device in Place Check Blood Return Labs drawn from Line* No Document 08/16/16 08:30 RDC (Rec: 08/16/16 10:06 [facility] [id number]) IV/Invasive Line Assessment Right Basilic Vein Date of Insertion 08/12/16 Reason for Line Insertion/Rationale for Replace Lost Fluids Insertion Provide Access for IV Medication(s) Provide Access for Emergency IV Catheter Type Extended Peripheral IV Site Observation Patent Site Observation Intervention Inspected Line Dressing Applied Window Dressing Transparent Dressing Securement Device/Sutures Intact Chlorhexidine Gluconate Impregnated Disc Dry/Intact Line Care Saline Flush Securement Device in Place Check Blood Return Document 08/16/16 11:36 RDC (Rec: 08/16/16 11:37 RD [id number]) IV/Invasive Line Assessment Right Basilic Vein Date of Insertion 08/12/16 Reason for Line Insertion/Rationale for Replace Lost Fluids Insertion Provide Access for IV Medication(s) Provide Access for Emergency IV Catheter Type Extended Peripheral IV Site Observation Patent Site Observation Intervention Inspected Line Dressing Applied Window Dressing Transparent Dressing Securement Device/Sutures Intact Chlorhexidine Gluconate Impregnated Disc Dry/Intact Line Care Saline Flush Securement Device in Place Check Blood Return Document 08/16/16 17:00 RDC (Rec: 08/16/16 18:11 RD [id number]) IV/Invasive Line Assessment Right Basilic Vein Date of Insertion 08/12/16 Reason for Line Insertion/Rationale for Replace Lost Fluids Insertion Provide Access for IV Medication(s) Provide Access for Emergency IV Catheter Type Extended Peripheral IV Site Observation Patent Site Observation Intervention Inspected Line Dressing Applied Window Dressing Transparent Dressing Securement Device/Sutures Intact Chlorhexidine Gluconate Impregnated Disc Dry/Intact Line Care Saline Flush Securement Device in Place Check Blood Return Document 08/16/16 21:40 BEF (Rec: 08/17/16 00:18 [facility] [id number] IV/Invasive Line Assessment Right Basilic Vein Date of Insertion 08/12/16 Reason for Line Insertion/Rationale for Replace Lost Fluids Insertion Provide Access for IV Medication(s) Provide Access for Emergency IV Catheter Type Extended Peripheral IV Site Observation Patent Site Observation Intervention Inspected Line Dressing Applied Window Dressing Transparent Dressing Securement Device/Sutures Intact Chlorhexidine Gluconate Impregnated Disc Dry/Intact Line Care Saline Flush Securement Device in Place Labs drawn from Line* No Document 08/17/16 09:10 AYW (Rec: 08/17/16 10:06 [facility] [id number] IV/Invasive Line Assessment Right Basilic Vein Date of Insertion 08/12/16 Reason for Line Insertion/Rationale for Replace Lost Fluids Insertion Provide Access for IV Medication(s) Provide Access for Emergency IV Catheter Type Mid-Line Site Observation Patent Site Observation Intervention Inspected Line Dressing Applied Chlorhexidine Gluconate Impregnated Disc Dry/Intact Line Care Saline Flush Securement Device in Place Labs drawn from Line* No Document 08/17/16 12:11 AYW (Rec: 08/17/16 12:12 AYW [id number]) IV/Invasive Line Assessment Right Basilic Vein Date of Insertion 08/12/16 Reason for Line Insertion/Rationale for Replace Lost Fluids Insertion Provide Access for IV Medication(s) Provide Access for Emergency IV Catheter Type Mid-Line Site Observation Patent Site Observation Intervention Inspected Line Dressing Applied Chlorhexidine Gluconate Impregnated Disc Dry/Intact Line Care Saline Flush Securement Device in Place Labs drawn from Line* No Document 08/17/16 16:57 AYW (Rec: 08/17/16 17:02 AYW [id number]) IV/Invasive Line Assessment Right Basilic Vein Date of Insertion 08/12/16 Reason for Line Insertion/Rationale for Replace Lost Fluids Insertion Provide Access for IV Medication(s) Provide Access for Emergency IV Catheter Type Mid-Line Site Observation Patent Site Observation Intervention Inspected Line Dressing Applied Chlorhexidine Gluconate Impregnated Disc Dry/Intact Line Care Saline Flush Securement Device in Place Labs drawn from Line* No Document 08/17/16 20:32 KMA (Rec: 08/17/16 21:05 KMA [id number]) IV/Invasive Line Assessment Right Basilic Vein Date of Insertion 08/12/16 Reason for Line Insertion/Rationale for Provide Access for IV Insertion Medication(s) Provide Access for Emergency IV Catheter Type Extended Peripheral IV Site Observation Patent Site Observation Intervention Inspected Line Dressing Applied Transparent Dressing Chlorhexidine Gluconate Impregnated Disc Dry/Intact Line Care Saline Flush P-Locked Securement Device in Place Check Blood Return Labs drawn from Line* No Document 08/18/16 00:35 KMA (Rec: 08/18/16 00:39 KMA [id number]) IV/Invasive Line Assessment Right Basilic Vein Date of Insertion 08/12/16 Reason for Line Insertion/Rationale for Provide Access for IV Insertion Medication(s) Provide Access for Emergency IV Catheter Type Extended Peripheral IV Site Observation Patent Site Observation Intervention Inspected Line Dressing Applied Transparent Dressing Chlorhexidine Gluconate Impregnated Disc Dry/Intact Line Care Saline Flush Securement Device in Place Check Blood Return Labs drawn from Line* No Document 08/18/16 08:57 KMB (Rec: 08/18/16 09:05 KMB [id number]) IV/Invasive Line Assessment Right Basilic Vein Date of Insertion 08/12/16 Reason for Line Insertion/Rationale for Provide Access for IV Insertion Medication(s) Provide Access for Emergency IV Catheter Type Extended Peripheral IV Site Observation Patent Site Observation Intervention Inspected Line Dressing Applied Transparent Dressing Chlorhexidine Gluconate Impregnated Disc Dry/Intact Line Care Saline Flush Securement Device in Place Check Blood Return Document 08/18/16 11:14 KMB (Rec: 08/18/16 12:40 KMB [id number]) IV/Invasive Line Assessment Right Basilic Vein Date of Insertion 08/12/16 Reason for Line Insertion/Rationale for Provide Access for IV Insertion Medication(s) Provide Access for Emergency IV Catheter Type Extended Peripheral IV Site Observation Patent Site Observation Intervention Inspected Line Dressing Applied Transparent Dressing Chlorhexidine Gluconate Impregnated Disc Dry/Intact Line Care Saline Flush Securement Device in Place Check Blood Return Labs drawn from Line* No Document 08/18/16 16:00 KMB (Rec: 08/18/16 18:23 KMB [facility] [id number] IV/Invasive Line Assessment Right Basilic Vein Date of Insertion 08/12/16 Reason for Line Insertion/Rationale for Provide Access for IV Insertion Medication(s) Provide Access for Emergency IV Catheter Type Extended Peripheral IV Site Observation Patent Site Observation Intervention Inspected Line Dressing Applied Transparent Dressing Chlorhexidine Gluconate Impregnated Disc Dry/Intact Line Care Saline Flush Securement Device in Place Check Blood Return Labs drawn from Line* No Document 08/18/16 19:55 JKB (Rec: 08/18/16 22:20 JKB [facility] [id number] IV/Invasive Line Assessment Right Basilic Vein Date of Insertion 08/12/16 Reason for Line Insertion/Rationale for Provide Access for IV Insertion Medication(s) Provide Access for Emergency IV Catheter Type Extended Peripheral IV Site Observation Patent Site Observation Intervention Inspected Line Dressing Applied Transparent Dressing Chlorhexidine Gluconate Impregnated Disc Dry/Intact Line Care Saline Flush Securement Device in Place Check Blood Return Labs drawn from Line* No Document 08/19/16 05:10 JKB (Rec: 08/19/16 08:23 JKB [id number]) IV/Invasive Line Assessment Right Basilic Vein Date of Insertion 08/12/16 Reason for Line Insertion/Rationale for Provide Access for IV Insertion Medication(s) Provide Access for Emergency IV Catheter Type Extended Peripheral IV Site Observation Patent Site Observation Intervention Inspected Line Dressing Applied Transparent Dressing Chlorhexidine Gluconate Impregnated Disc Dry/Intact Line Care Saline Flush Securement Device in Place Check Blood Return Labs drawn from Line* No Document 08/19/16 08:20 SLT (Rec: 08/19/16 09:46 SLT [facility] [id number] IV/Invasive Line Assessment Right Basilic Vein Date of Insertion 08/12/16 Reason for Line Insertion/Rationale for Provide Access for IV Insertion Medication(s) Provide Access for Emergency Gauge (gauge) 18 IV Catheter Type Extended Peripheral IV Site Observation Patent Site Observation Intervention Inspected Line Dressing Applied Transparent Dressing Chlorhexidine Gluconate Impregnated Disc Dry/Intact Line Care Saline Flush Securement Device in Place Check Blood Return Labs drawn from Line* No Document 08/19/16 11:49 SLT (Rec: 08/19/16 12:30 SLT [facility] [id number] IV/Invasive Line Assessment Right Basilic Vein Date of Insertion 08/12/16 Reason for Line Insertion/Rationale for Provide Access for IV Insertion Medication(s) Provide Access for Emergency Gauge (gauge) 18 IV Catheter Type Extended Peripheral IV Site Observation Patent Site Observation Intervention Inspected Line Dressing Applied Transparent Dressing Chlorhexidine Gluconate Impregnated Disc Dry/Intact Line Care P-Locked Securement Device in Place Labs drawn from Line* No Document 08/19/16 15:19 SLT (Rec: 08/19/16 15:20 SLT [id number]) IV/Invasive Line Assessment Right Basilic Vein Date of Insertion 08/12/16 Reason for Line Insertion/Rationale for Provide Access for IV Insertion Medication(s) Provide Access for Emergency Gauge (gauge) 18 IV Catheter Type Extended Peripheral IV Site Observation Patent Site Observation Intervention Inspected Line Dressing Applied Transparent Dressing Chlorhexidine Gluconate Impregnated Disc Dry/Intact Line Care Saline Flush P-Locked Securement Device in Place Date IV Line Discontinued 08/19/16 Time IV Line Discontinued 15:15 IV Line Discontinue Reason Pt discharging home IV Line Removal Patient Tolerance Tolerated Well Sterile Dressing Applied IV removed/ tip intact Bleeding Controlled Education Completed Expresses Understanding Labs drawn from Line* No Infection risk assessment Start: 08/11/16 09: 07 Freq: Status: Complete Document 08/13/16 15:28 [facility] (Rec: 08/13/16 15:29 [id number] Document 08/17/16 18:00 AYW (Rec: 08/17/16 18:04 AYW [facility] [id number] Initial Patient Assessment Start: 08/11/16 01: 11 Freq: .ONCE Status: Complete Document 08/11/16 01:11 CRS (Rec: 08/11/16 01:18 CRS [id number]) General Questions Date of Arrival on Unit 08/11/16 Time of Arrival on Unit 01:12 Admitted From Emergency Dept Chief Complaint abd pain Onset of Chief Complaint 08/10/16 History Provided By Patient Orientation To Call Light Bed Phone TV Bathroom Smoking Policy Visiting Hours Procedures ID Bracelet On Emergency Contact Name Pat Relationship to Patient snf Emergency Contact Phone Number [phone] Bands applied ID band Allergy band Patient Health Portal Patient was provided information on Yes accessing patient portal Patient Requests Portal Enrollment No Reason No Portal Enrollment No Email Malnutrition Screening Tool (MST) Have You Recently Lost Weight Without No Trying Advance Directives Advance Directives No Advance Directives Information Provided Yes Patient Rights Copy of Rights Given and Verbalizes Yes Understanding Tobacco Free [place]: Copy of AHS Yes Statement Given and Patient Verbalizes Understanding 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 Ability Primary Language Tanzanian Preferred Language Tanzanian Test Developer Required No Ability to Follow Directions Good Able to Read Yes Able to Write Yes 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 Tools None Caregiver 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 Skills No Impairment Impairment Learning Preferences Discussion Hearing Ability Normal Visual Assistive Devices None Pain Assessment Do You Have Any Ongoing (Chronic) Pain No Problems Educated on Pain Scale Yes Past Medical History Medical history arthritis cirrhosis CHF COPD coronary artery disease diabetes GERD hyperlipidemia hypertension liver disease TIA other Male Surgical History appendectomy cholecystectomy herniorrhaphy knee replacement other Psychiatric history anxiety depression PTSD other Smoking Status Never smoker Smokeless Tobacco Status No Alcohol use none Drug use none Occupational status retired Current living situation [facility] Activity level Independent ambulation Uses cane/walker Mostly sedentary Recent Out of Country Travel Within the No Last 8 Weeks Exposure or Possible Exposure to Illness No During Travel Family History-Meaningful Use Mother Living Status Hx Family Cancer Yes Spiritual Needs Spiritual Referral None Psychosocial Over Age 75 and Lives Alone or Over Age No 80 Potential Need for Follow-up Care (ECF, Yes Home Health, ECT) Developmentally Disabled or History of No Mental Health Problems Diagnosis with Edi Manager Need or No Terminal Implications Responsible for Care of Others No Financial Concerns Yes Suspected Abuse or Neglect No Suicidal or Homicidal Ideation No Social Service Consult Needed No Functional Assessment Employment Status Retired Eating (Feeding) Ability Independent Bathing Ability 1 Person Assist Upper Body Dressing Ability Minimum Assistance Lower Body Dressing Ability Minimum Assistance Ambulation Ability Contact Guard Assist (CGA) Toileting Ability Standby Assistance Bladder Continent Bowel Continent Normal Bowel Pattern Daily Date of Last Known Bowel Movement 08/10/16 Intake and Output, Strict Start: 08/11/16 08: 11 Freq: DAILY Status: Discharge Document 08/11/16 15:43 JRK (Rec: 08/11/16 15:46 JRK 2A19) Intake and Output Catheter 400 Urine Color Dark Yellow Document 08/11/16 22:47 SPG (Rec: 08/11/16 22:48 SPG [id number]) Intake and Output Number of Bowel Movements 1 Stool Consistency liquid Stool Color Brown Document 08/12/16 00:07 SPG (Rec: 08/12/16 00:09 SPG [id number]) Intake and Output Catheter 650 Urine Color Straw Document 08/12/16 01:15 SPG (Rec: 08/12/16 01:16 SPG [id number]) Intake and Output Catheter 1,650 Urine Color Bright Yellow Number of Bowel Movements 1 Stool Size Moderate Stool Consistency liquid Document 08/12/16 06:00 SPG (Rec: 08/12/16 06:01 SPG [id number]) Intake and Output Number of Bowel Movements 1 Stool Size Large Stool Consistency liquid Stool Color Terence Colored Document 08/12/16 06:53 MVJ (Rec: 08/12/16 06:53 MVJ [id number]) Intake and Output Catheter 650 Document 08/12/16 07:46 MVJ (Rec: 08/12/16 07:46 MVJ [id number]) Intake and Output Catheter 500 Document 08/12/16 08:53 MVJ (Rec: 08/12/16 08:54 MVJ [id number]) Intake and Output Intake, Oral Amount 480 Meal Breakfast Percent of Meal Consumed 90% Oral Supplements* None Document 08/12/16 09:10 MVJ (Rec: 08/12/16 09:11 MVJ [id number]) Intake and Output Catheter 550 Document 08/12/16 09:47 MVJ (Rec: 08/12/16 09:47 MVJ [id number]) Intake and Output Catheter 400 Document 08/12/16 11:26 MVJ (Rec: 08/12/16 11:26 MVJ [id number]) Intake and Output Catheter 700 Document 08/12/16 13:18 MVJ (Rec: 08/12/16 13:18 MVJ [id number]) Intake and Output Intake, Oral Amount 240 Meal Lunch Percent of Meal Consumed 100% Oral Supplements* None Catheter 550 Document 08/13/16 01:06 SPG (Rec: 08/13/16 01:08 SPG [id number]) Intake and Output Intake, Oral Amount 240 Output, Urine Amount 1,000 Urine Color Dark Yellow Number of Bowel Movements 1 Stool Size Large Stool Consistency loose Stool Color Brown Document 08/13/16 05:27 SPG (Rec: 08/13/16 05:29 SPG [id number]) Intake and Output Catheter 1,000 Urine Color Straw Document 08/13/16 08:00 RDC (Rec: 08/13/16 09:54 RDC [id number]) Intake and Output Output, Urine Amount 0 Document 08/13/16 12:30 KMR (Rec: 08/13/16 14:48 KMR 2A19) Intake and Output Intake, Oral Amount 120 Meal Lunch Percent of Meal Consumed 100% Oral Supplements* None Document 08/13/16 15:22 RDC (Rec: 08/13/16 15:28 RDC [id number]) Intake and Output Number of Voids 1 Document 08/13/16 17:32 KMR (Rec: 08/13/16 17:32 KMR 2A19) Intake and Output Intake, Oral Amount 480 Meal Dinner Percent of Meal Consumed 55% Oral Supplements* None Document 08/14/16 18:24 ANM (Rec: 08/14/16 18:24 ANM 2A19) Intake and Output Intake, Oral Amount 360 Meal Dinner Percent of Meal Consumed 80% Oral Supplements* None Document 08/14/16 22:02 RDC (Rec: 08/14/16 22:05 RDC [id number]) Document 08/15/16 01:48 HMF (Rec: 08/15/16 01:48 HMF 2A16) Intake and Output Number of Voids 1 Document 08/15/16 09:00 LHG (Rec: 08/15/16 09:21 LHG 2A16) Intake and Output Intake, Oral Amount 480 Meal Breakfast Percent of Meal Consumed 100% Oral Supplements* None Document 08/15/16 11:45 RDC (Rec: 08/15/16 13:42 RDC [id number]) Intake and Output Output, Urine Amount 0 Document 08/16/16 08:30 RDC (Rec: 08/16/16 10:06 RDC [id number]) Document 08/16/16 09:00 LHG (Rec: 08/16/16 09:17 LHG 2A17) Intake and Output Intake, Oral Amount 360 Meal Breakfast Percent of Meal Consumed 50% Oral Supplements* None Document 08/16/16 10:39 [id number] (Rec: 08/16/16 10:40 [id number]) Intake and Output Number of Voids 2 Number of Bowel Movements 1 Stool Size Copious Stool Consistency formed Stool Color Brown 08/16/16 10:39 Nurse Note by Rae Perez Patient's bedside commode emptied after patient had a bowel movement. 1 bowel movement today, 2 voids today, per the patient. Per the patient, the commode hadn't been emptied in 2 days. The commode was half full with urine and bowel. Initialized on 08/16/16 10:39 - END OF NOTE Document 08/16/16 13:00 LHG (Rec: 08/16/16 13:14 LHG [facility]) Intake and Output Intake, Oral Amount 240 Meal Lunch Percent of Meal Consumed 75% Oral Supplements* None Document 08/17/16 04:44 BEF (Rec: 08/17/16 04:44 BEF [facility]) Document 08/17/16 09:23 VVP (Rec: 08/17/16 09:23 VVP [facility]) Intake and Output Intake, Oral Amount 240 Meal Breakfast Percent of Meal Consumed 100% Oral Supplements* None Document 08/17/16 13:09 VVP (Rec: 08/17/16 13:09 VVP [facility]) Intake and Output Intake, Other Amount 240 Meal Lunch Percent of Meal Consumed 75% Oral Supplements* None Document 08/17/16 17:38 CDB (Rec: 08/17/16 17:38 CDB [id number]) Intake and Output Intake, Oral Amount 360 Meal Dinner Percent of Meal Consumed 100% Oral Supplements* None Document 08/18/16 08:48 EPR (Rec: 08/18/16 08:49 EPR [id number]) Intake and Output Intake, Oral Amount 450 Meal Breakfast Percent of Meal Consumed 100% Oral Supplements* None Document 08/18/16 08:57 KMB (Rec: 08/18/16 09:05 KMB [facility] [id number] Document 08/18/16 17:43 VVP (Rec: 08/18/16 17:44 VVP [facility]) Intake and Output Intake, Oral Amount 360 Meal Dinner Percent of Meal Consumed 100% Oral Supplements* None Document 08/18/16 20:54 DKH (Rec: 08/18/16 20:55 DKH [id number]) Intake and Output Intake, Oral Amount 240 Meal sandwich Percent of Meal Consumed 100% Oral Supplements* None Document 08/19/16 09:00 [id number] (Rec: 08/19/16 13:07 [id number]) Intake and Output Intake, Oral Amount 240 Meal Lunch Percent of Meal Consumed 100% Oral Supplements* None Measure intake and output Start: 08/10/16 23: 50 Freq: QSHIFT Status: Complete Document 08/11/16 18:44 SPG (Rec: 08/11/16 18:45 SPG 2A16) Intake and Output Stool Size Copious Document 08/11/16 21:56 SPG (Rec: 08/11/16 21:59 SPG 2A16) Intake and Output Catheter 1,250 Urine Color Straw Document 08/12/16 17:47 MVJ (Rec: 08/12/16 17:48 MVJ 2A16) Intake and Output Intake, Oral Amount 240 Meal Dinner Percent of Meal Consumed 90% Oral Supplements* None Document 08/12/16 18:10 MVJ (Rec: 08/12/16 18:10 MVJ 2A16) Intake and Output Catheter 400 Document 08/12/16 21:35 SPG (Rec: 08/12/16 21:36 SPG 2A16) Intake and Output Catheter 950 Urine Color Dark Yellow Document 08/13/16 08:00 RDC (Rec: 08/13/16 09:54 RDC [id number]) Document 08/13/16 22:21 TLS (Rec: 08/13/16 22:22 TLS 2A16) Intake and Output Intake, Oral Amount 0 Output, Urine Amount 3,600 Urine Color Light Rae Metcalfe Document 08/14/16 22:02 RDC (Rec: 08/14/16 22:05 RDC [id number]) Intake and Output Output, Urine Amount 0 Document 08/15/16 13:24 LHG (Rec: 08/15/16 13:25 LHG 2A16) Intake and Output Intake, Oral Amount 240 Meal Lunch Percent of Meal Consumed 100% Oral Supplements* None Document 08/15/16 17:48 LHG (Rec: 08/15/16 17:48 LHG 2A16) Intake and Output Intake, Oral Amount 360 Meal Dinner Percent of Meal Consumed 100% Oral Supplements* None Document 08/15/16 21:48 HMF (Rec: 08/15/16 21:48 HMF 2A16) Intake and Output Intake, Oral Amount 480 Document 08/16/16 08:30 RDC (Rec: 08/16/16 10:06 RDC 2A14) Intake and Output Output, Urine Amount 0 Document 08/16/16 17:46 LHG (Rec: 08/16/16 17:46 LHG 2A17) Intake and Output Intake, Oral Amount 360 Meal Dinner Percent of Meal Consumed 50% Oral Supplements* None Document 08/16/16 19:15 HMF (Rec: 08/16/16 22:55 HMF 2A17) Intake and Output Intake, Oral Amount 240 Document 08/17/16 04:44 BEF (Rec: 08/17/16 04:44 BEF 2A14) Intake and Output Output, Urine Amount 400 Urine Color Pale Document 08/18/16 08:57 KMB (Rec: 08/18/16 09:05 KMB 14) Intake and Output Intake, Oral Amount 0 Output, Urine Amount 0 Measure weight Start: 08/10/16 23: 50 Freq: DAILY Status: Discharge Document 08/11/16 04:33 CDP (Rec: 08/11/16 04:39 CDP 17) Height and Weight Height 1.73 m Document 08/12/16 00:07 SPG (Rec: 08/12/16 00:09 SPG 2A16) Height and Weight Weight 111.584 kg Weight Measurement Method Standing Scale Document 08/13/16 01:06 SPG (Rec: 08/13/16 01:08 SPG 2A16) Height and Weight Weight 108.953 kg Weight Measurement Method Standing Scale Document 08/14/16 06:10 BAW (Rec: 08/14/16 06:11 BAW 2A19) Height and Weight Weight 109.6 kg Weight Measurement Method Built in Bedscale Document 08/16/16 22:00 HMF (Rec: 08/16/16 22:01 HMF 2A17) Height and Weight Weight 111.039 kg Weight Measurement Method Standing Scale Document 08/18/16 04:18 HMF (Rec: 08/18/16 04:31 HMF 17) Height and Weight Weight 109.225 kg Weight Measurement Method Standing Scale Document 08/19/16 04:28 DKH (Rec: 08/19/16 04:29 DKH 17) Height and Weight Weight 108.9 kg Weight Measurement Method Standing Scale Med [employer] Start: 08/10/16 22: 50 Freq: Status: Complete Document 08/10/16 22:50 EJD (Rec: 08/10/16 22:50 EJD [id number]) Pharmacy Med Rec Tech Home Medicatons Reconciled? Yes Was this to catch up from previous day No Does patient take 10 or more medications Yes ? Does patient request medication No education Do home meds include Coumadin, Xarelto, No Pradaxa, Eliquis Added Patient Preferred Pharmacy No Verified Allergies Yes Would Patient Like to use [place] No Patient Pharmacy Nonpharmacologic pain management Start: 08/17/16 18: 00 Freq: Status: Discharge Document 08/17/16 18:00 AYW (Rec: 08/17/16 18:04 AYW [facility]) Notify provider Start: 08/11/16 00: 18 Freq: once Status: Complete Document 08/13/16 15:22 RDC (Rec: 08/13/16 15:28 RDC [id number]) OT Acute Eval Start: 08/14/16 10: 17 Freq: Status: Discharge Document 08/14/16 10:17 PAC (Rec: 08/14/16 10:28 PAC [id number]) Inpatient Rehab Intake Date of Admission 08/10/16 Chief Complaint Abdominal Pain PMH/Surgical History Relevant to Rehab Acute abdominal pain syndrome, rectal bleeding, toxic metabolic encephalopathy, delirium, chronic liver disease, cirrhosis, right knee pain, CHF, bicytopenia, CKD, hyperkalemia, obesity, depression, CAD, DM2, COPD, PTSD, TIA Factors/Comorbidities Impacting POC Obesity Substance Abuse Diagnosis Acute Abdominal Pain syndrom Reason for Referral/Orders To evaluate and treat History of falls in past 6 months Multiple falls, more than 2 times Restrictions/Precautions Fall Precautions/Risk Fluid/Dietary Restriction History Provided By Patient Lives With: [facility] Type of Dwelling Single Family Home Number of Floors (Floors) 1 Number of Stairs to Enter (Stairs) 3 Are there handrails? Ramp Entry Bathing Environment Shower Current DME Cane Shower Chair Grab Bars in Shower Grab Bars at Toilet Prior Level Of Function Independent Prior Mobility Level MOD I with cane Driving Facility drives patient to appointments Patient/Family Goal To return to fdc Pain Assessment Pain Present Reports Pain Right Knee Intensity 8 Functional Mobility Assessment Bed Mobility Ability Minimum Assistance 1 Person Assist Bed Mobility Assistive Devices Bed Rail Elevated HOB Bed Transfer Ability Contact Guard Assist (CGA) 1 Person Assist Bed Transfer Assistive Devices Rolling Walker Transfer Belt Static Sitting Balance Ability Good Dynamic Sitting Balance Ability Good -/Fair + Static Standing Balance Ability Good -/Fair + Dynamic Standing Balance Ability Fair Ambulation Assistive Devices Rolling Walker Activity Tolerance Fair Additional Information See PT eval ADL Assessment Grooming Ability Independent Upper Body Dressing Ability Independent Lower Body Dressing Ability Minimum Assistance Washing/Drying Upper Body Ability Independent Washing/Drying Lower Extremities Ability Minimum Assistance Eating (Feeding) Ability Independent Performing Toilet Hygiene Ability Independent Managing Clothing Ability Independent Activity Tolerance Fair Gross Strength/ROM Gross UE Strength Other (See Detail) Gross UE ROM Within Functional Limits UE ROM/Strength Detail bilateral shoulder strength was 4-/5 and elbow strength was 3+/5 Limitations/Factors of Tone Muscle Tone Description Normal Edema/Skin Integrity Comment Intact and functional Gross Sensorimotor Gross Sensation No Deficit Noted Sensation Response to Light Touch Intact/Normal Stimulus Sensation Response to Kinesthesia ( Intact/Normal Movement) Stimulus Gross Coordination No Deficit Noted Fine Motor Coordination No Deficit Noted Cognition/Visual Assessment Level of Alertness Alert Active Patient Orientation Person Place Date of Month Mental Status Alert & Oriented Safety Awareness Patient Is Aware of Their Safety Patient Is Aware of Others Safety Situational Awareness Understands Safety Issues Attention to Task No Deficits Noted Visual Acuity No Deficits Noted Visual Spatial Deficit No Deficits Noted Hearing Ability Normal Ability to Follow Directions Follows Complex Comprehension Ability Mild Impairment Patient Behavior Appropriate Cooperative Speech Pattern Clear Appropriate Coherent Eye Contact Maintains Eye Contact Problem Solving Ability Able To Solve Simple Problems Able To Solve Complex Problems Memory Summary Memory is intact Acute OT POC Is patient being assessed for No rehabilitation for diagnosis of stroke? AM-PAC OT Inpatient Daily Activity Raw 18 Score AM-[facility] CMS 0-100% Impaired Score 46 Problems/Impairments/Functional Decreased Functional Endurance Limitation Decreased ADL's/IADL's Decreased Safety/Judgement/ Cognition Decreased Functional Mobility/ Transfers Decreased Standing Tolerance Balance Decreased Strength Assessment Pt demonstrated the above following deficits that warrant OT intervention at this time. Rehab Potential Good Disposition at end of Eval/Treatment In bed Lines intact RN/CLERICAL ASSISTANT informed Call light/phone within reach Tray table within reach All needs met OT Treatment Diagnosis Weakness Planned OT Interventions Therapeutic Exercise Therapeutic Activity OT Evaluation OT Treatment Frequency Once a Day, Mon-Fri Estimated OT Needs at Discharge Home Health OT Estimated DME Needs at D/C Front Wheeled Walker Patient will participate in ADLs of Modified Independent various media (dressing,bathing) with___ __ to improve ADL I/participation by hospital discharge. Patient will improve functional outcome AM-PAC score on by noted improvement of score (increase or decrease as measured on tool by 2 points) within short term hospitalization stay. Patient will perform paced functional 7-9 minutes activity/ADLs while standing for to improve functional activity tolerance as needed for improved ADL performance prior to discharge. Patient will improve strength by 1 Bilateral UE /2 grade to improve ADL participation & independence by short term hospial stay. Patient will complete of paced 10-15 min with breaks therapeutic exercise to improve functional stamina as needed for daily routine & ADLs by hosptial discharge. Patient will complete bed mobility to Contact Guard Assistance improve functional mobility as needed for ADL participation with by hospital discharge. Patient will sit EOB to improve static/ >10 minutes dynamic sitting balance for while engaging in functional tasks/activity in preparation for functional mobility required for ADLs by hospital discharge. Patient will improve functional transfer Supervision ability to to improve independence with ADLs by dicharge from hospital. Patient will verbally/demonstrate recall Walker Safety/Assistive Device of precautions in order to increase safety with ADLs & promote proper healing by discharge. Supervising Therapist Gladys Gomezal and Re-Patriciaal Charges Evaluation Time: Minutes with Patient 20 Occupational Therapy Evaluation Moderate Yes Complexity OT Charges/Documentation Finished? Yes Is patient being discharged from OT No today? [place] OT G-code Therapy Billing Start: 08/14/16 10: 17 Freq: Status: Discharge Document 08/14/16 10:28 PAC (Rec: 08/14/16 10:28 PAC [id number]) OT G-codes G-code Required For This Visit No OT Current Status Subsequent PT/OT Status OT Current Status Modifier At least 40% but less than 60% impaired, limited or restricted OT Goal Status Subsequent PT/OT Status OT Goal Status Modifier At least 20% but less than 40% impaired, limited or restricted OT Missed Visit Start: 08/17/16 14: 59 Freq: Status: Discharge Document 08/17/16 14:59 DLP (Rec: 08/17/16 15:00 DLP [id number]) Missed Visit Missed Visit Reason Refused/Declined Document 08/18/16 13:33 KMT (Rec: 08/18/16 13:33 KMT [email or web address]) Missed Visit Missed Visit Reason Refused/Declined Document 08/19/16 11:48 DLP (Rec: 08/19/16 11:49 DLP [id number]) Missed Visit Missed Visit Reason Refused/Declined Oxygen administration Start: 08/11/16 01: 11 Freq: Q12H Status: Discharge Document 08/11/16 01:30 CRS (Rec: 08/11/16 03:07 CRS [id number]) Oxygen O2 Sat by Pulse Oximetry (95-100) 97 Oxygen Delivery Method Nasal Cannula Oxygen Flow Rate (LPM) 2 Document 08/11/16 08:50 SLT (Rec: 08/11/16 11:04 SLT [id number]) Oxygen Oxygen Delivery Method Nasal Cannula Oxygen Flow Rate (LPM) 3 Document 08/13/16 08:00 RDC (Rec: 08/13/16 09:54 RDC [id number]) Oxygen O2 Sat by Pulse Oximetry (95-100) 96 Oxygen Delivery Method Room Air Document 08/13/16 20:22 EJC (Rec: 08/13/16 20:25 EJC [id number]) Oxygen Oxygen Delivery Method Room Air Document 08/14/16 08:34 EPR (Rec: 08/14/16 08:38 EPR 2A10) Oxygen Oxygen Delivery Method Room Air Document 08/14/16 22:08 RDC (Rec: 08/14/16 22:08 RDC [id number]) Oxygen O2 Sat by Pulse Oximetry (95-100) 99 Oxygen Delivery Method Nasal Cannula Oxygen Flow Rate (LPM) 2 Document 08/15/16 08:54 EJC (Rec: 08/15/16 08:56 EJC [id number]) Oxygen Oxygen Delivery Method Room Air Document 08/15/16 11:45 RDC (Rec: 08/15/16 13:42 RDC [id number]) Oxygen O2 Sat by Pulse Oximetry (95-100) 96 Oxygen Delivery Method Room Air Document 08/15/16 20:00 BEF (Rec: 08/15/16 22:40 BEF [id number]) Oxygen Oxygen Delivery Method Room Air Document 08/16/16 08:30 RDC (Rec: 08/16/16 10:06 RDC [id number]) Oxygen O2 Sat by Pulse Oximetry (95-100) 98 Oxygen Delivery Method Room Air Document 08/16/16 21:40 BEF (Rec: 08/17/16 00:18 BEF [id number]) Oxygen Oxygen Delivery Method Room Air Document 08/17/16 09:10 AYW (Rec: 08/17/16 10:06 AYW [id number]) Oxygen Heart rate 98 O2 Sat by Pulse Oximetry (95-100) 93 L Oxygen Delivery Method Room Air Document 08/18/16 09:00 KMB (Rec: 08/18/16 10:30 KMB [id number]) Oxygen O2 Sat by Pulse Oximetry (95-100) 94 L Oxygen Delivery Method Room Air Document 08/19/16 08:20 SLT (Rec: 08/19/16 10:39 SLT [id number]) Oxygen O2 Sat by Pulse Oximetry (95-100) 93 L Oxygen Delivery Method Room Air PT Acute Eval Start: 08/14/16 11: 16 Freq: Status: Discharge Document 08/14/16 11:16 AGK (Rec: 08/14/16 11:24 AGK [id number]) Inpatient Rehab Intake Date of Admission 08/10/16 Chief Complaint Abdominal Pain PMH/Surgical History Relevant to Rehab Acute abdominal pain syndrome, rectal bleeding, toxic metabolic encephalopathy, delirium, chronic liver disease, cirrhosis, right knee pain, CHF, bicytopenia, CKD, hyperkalemia, obesity, depression, CAD, DM2, COPD, PTSD, TIA Diagnosis Acute Abdominal Pain syndrom Reason for Referral/Orders To evaluate and treat History of falls in past 6 months Multiple falls, more than 2 times Restrictions/Precautions Fall Precautions/Risk Fluid/Dietary Restriction History Provided By Patient Lives With: [facility] Type of Dwelling Single Family Home Number of Floors (Floors) 1 Number of Stairs to Enter (Stairs) 3 Are there handrails? Ramp Entry Bathing Environment Shower Current DME Cane Shower Chair Grab Bars in Shower Grab Bars at Toilet Prior Level Of Function Independent Prior Mobility Level MOD I with cane Driving Facility drives patient to appointments Patient/Family Goal To return to fdc Pain Assessment Pain Present Reports Pain Functional Mobility Assessment Bed Mobility Ability Minimum Assistance 1 Person Assist Bed Mobility Assistive Devices Bed Rail Elevated HOB Bed Transfer Ability Contact Guard Assist (CGA) 1 Person Assist Bed Transfer Assistive Devices Rolling Walker Transfer Belt Static Sitting Balance Ability Good Dynamic Sitting Balance Ability Good -/Fair + Static Standing Balance Ability Good -/Fair + Dynamic Standing Balance Ability Fair Ambulation Assistive Devices Rolling Walker Activity Tolerance Fair Gait/Stairs Deviation Assess. Ambulation Ability Contact Guard Assist (CGA) Ambulation Distance (ft) (feet) 50 Ambulation Assistive Device Rolling Walker Gait Belt Ambulation Ability Comments Pt ambulates with step-through gait pattern. Decreased lima, decreased WB through R LE, and excessive distance from AD are noted. No major instances of LOB appreciated, but pt unsteady throughout. Gross Strength/ROM Gross UE Strength Other (See Detail) Gross UE ROM Other (See Detail) UE ROM/Strength Detail see OT eval Gross LE ROM Within Functional Limits LE ROM/Strength Detail B LE strength grossly 4-/5 Edema/Skin Integrity Comment intact Gross Sensorimotor Gross Sensation No Deficit Noted Gross Coordination No Deficit Noted Cognition/Visual Assessment Level of Alertness Alert Active Patient Orientation Person Place Date of Month Safety Awareness Patient Is Aware of Their Safety Patient Is Aware of Others Safety Situational Awareness Understands Safety Issues Visual Acuity No Deficits Noted Hearing Ability Normal Ability to Follow Directions Follows Complex Patient Behavior Appropriate Cooperative Speech Pattern Clear Appropriate Coherent Eye Contact Maintains Eye Contact Rehab Education Education Topic Bed Mobility Transfers Gait Safety Awareness Teaching Recipient Patient Teaching Method Verbal Response to Teaching Verbalize understanding Acute Care PT POC Is patient being assessed for No rehabilitation for diagnosis of stroke? AM-PAC PT Basic Mobility Raw Score 19 AM-PAC CMS 0-100% Impaired Score 36 Problems/Impairments/Functional Decreased Functional Endurance Limitation Decreased Functional Mobility/ Transfers Decreased Standing Tolerance Balance Impaired Gait Decreased Strength Assessment Pt is appropriate for skilled rehab services. PT services are warranted at this time in order to address impairments and functional limitations as stated above. Pt required verbal cues with functional mobility tasks for safe use of RW. He c/o increased pain in R knee during standing activities. He would benefit from continued skilled PT services in home health setting in order to improve gait and balance. Rehab Potential Good Disposition at end of Eval/Treatment In bed RN/CLERICAL ASSISTANT informed Call light/phone within reach Tray table within reach All needs met PT Treatment Diagnosis Other abnormalities of gait and mobility Planned Interventions Therapeutic Exercise Therapeutic Activity Gait Training Neuromuscular Reeducation PT Treatment Frequency Once a Day, Mon-Fri Goals Determined With Patient/Family Yes Estimated PT Needs at Discharge Home Health PT Estimated DME Needs at D/C Front Wheeled Walker Shower Chair Pt. will perform all bed mobility with__ Supervision ___to increase functional indendence. Pt. will perform all transfers with Supervision to increase safe functional mobility and independence. Pt. will demonstrate static/dynamic Good (+) balance during all functional activities allowing increased safety awareness. Pt. will demonstrate gait feet 200 ft SBA with walker with assist using to increase functional mobility, strength, and/or endurance. Pt. will participate in of 10 minutes continuous activity allowing increased endurance while completing ADLs improving quality of life. Pt. will verbally recall precautions Walker Safety/Assistive Device without cues for increased safety & compliance in discharge environment. Pt. will perform therapeutic exercise [place] with to improve functional ROM, strength, and endurance during all functional activities. Supervising Therapist Satnam Szymanski and Archie Charges Evaluation Time: Minutes with Patient 15 Physical Therapy Evaluation High Yes Complexity PT Charges/Documentation Finished? Yes Is patient being discharged from PT No today? Financial Class [place] Y PT G-code Therapy Billing Start: 08/14/16 11: 16 Freq: Status: Discharge Document 08/14/16 11:16 AGK (Rec: 08/14/16 11:24 AGK [id number]) PT G-codes G-code Required For This Visit No PT Current Status Mobility PT Current Status Modifier At least 20% but less than 40% impaired, limited or restricted PT Goal Status Mobility PT Goal Status Modifer At least 1% but less than 20% impaired, limited or restricted PT Missed Visit Start: 08/14/16 11: 16 Freq: Status: Discharge Document 08/17/16 15:14 MJB (Rec: 08/17/16 15:15 MJB [id number]) Missed Visit Missed Visit Reason Refused/Declined Comment Pt adamantly refusing participation in PT services, stating he just didn't want to . Document 08/18/16 11:21 MJB (Rec: 08/18/16 11:21 MJB [id number]) Missed Visit Missed Visit Reason Refused/Declined Comment stating he doesn't want to do anything until he knows if he is leaving today. Pain control assessment - barriers Start: 08/17/16 18: 00 Freq: Status: Discharge Document 08/17/16 18:00 AYW (Rec: 08/17/16 18:04 AYW [id number]) Patient Belongings Start: 08/11/16 01: 11 Freq: .ONCE Status: Complete Document 08/11/16 01:11 CRS (Rec: 08/11/16 01:18 CRS [facility] [id number] Patient Belongings At Bedside Belongings Comment clothes, shoes, jacket, cane, belt, Patient Rounding Start: 08/10/16 20: 04 Freq: Q30M Status: Discharge Document 08/10/16 20:04 TAB (Rec: 08/10/16 21:18 TAB [id number]) Patient Rounding Safety Call Light Within Reach Bed Position Low Side Rails Up X1 Are the Floors Free From Trip Hazards? Yes Is the Room Free From Clutter? Yes Rounding Completed? Yes Patient Rounding Updated patient/family on Plan of Care Checked for Patient Positioning Patient Awake Document 08/10/16 21:04 TAB (Rec: 08/10/16 21:43 TAB [id number]) Patient Rounding Safety Call Light Within Reach Bed Position Low Side Rails Up X1 Are the Floors Free From Trip Hazards? Yes Is the Room Free From Clutter? Yes Rounding Completed? Yes Patient Rounding Updated patient/family on Plan of Care Checked for Patient Positioning Patient Awake Document 08/10/16 22:30 TAB (Rec: 08/11/16 00:32 TAB [id number]) Patient Rounding Safety Call Light Within Reach Bed Position Low Side Rails Up X1 Are the Floors Free From Trip Hazards? Yes Is the Room Free From Clutter? Yes Rounding Completed? Yes Patient Rounding Updated patient/family on Plan of Care Checked for Patient Positioning Patient Awake Document 08/10/16 23:00 TAB (Rec: 08/11/16 00:33 TAB [id number]) Patient Rounding Safety Call Light Within Reach Bed Position Low Side Rails Up X1 Are the Floors Free From Trip Hazards? Yes Is the Room Free From Clutter? Yes Rounding Completed? Yes Patient Rounding Updated patient/family on Plan of Care Checked for Patient Positioning Patient Awake Patient Rounding Start: 08/11/16 01: 11 Freq: Q1H Status: Discharge Document 08/11/16 01:30 CDP (Rec: 08/11/16 01:40 CDP [id number]) Hourly Rounding Hourly Rounding Checked for Patient Positioning Patient Personal Items Placed Within Reach Checked Patient Pain Level Hourly Rounding Completed Yes Patient Resting With Eyes Closed Is family present? Yes: Present at bedside. Comment New ER admit. Vitals assessment completed, weight, accu-check. Equipment in Use Specialty Bed Safety Call Light Within Reach Bed Position Low Bed Exit Alarm Fall Precautions Phone Within Reach Bed Brake On Side Rails Up X1 Side Rails Up X2 Are the Floors Free From Trip Hazards? Yes Is the Room Free From Clutter? Yes 08/11/16 05:11 Nurse Note by Snadro Duong Fall precautions put in place at time of admission to nursing unit. Patient instructed to use call light for assistance, and not to get up unassisted without a staff member present in the room. Bed exit alarm is on. Initialized on 08/11/16 05:11 - END OF NOTE Turn and Postion Bedrest No Turn Q 2HR No Patient Position Back Positioning Aides Pillows Document 08/11/16 01:30 CRS (Rec: 08/11/16 03:07 CRS [id number]) Hourly Rounding Hourly Rounding Checked for Patient Positioning Patient Personal Items Placed Within Reach Checked Patient Pain Level Hourly Rounding Completed Yes Patient Sleeping Is family present? Yes: Present at bedside. Equipment in Use Specialty Bed Safety Call Light Within Reach Bed Position Low Bed Exit Alarm Fall Precautions Phone Within Reach Bed Brake On Side Rails Up X1 Side Rails Up X2 Are the Floors Free From Trip Hazards? Yes Is the Room Free From Clutter? Yes Turn and Postion Bedrest No Turn Q 2HR No Patient Position Back Positioning Aides Pillows Document 08/11/16 04:33 CDP (Rec: 08/11/16 04:39 CDP [id number]) Hourly Rounding Hourly Rounding Checked for Patient Positioning Patient Personal Items Placed Within Reach Checked Patient Pain Level Hourly Rounding Completed Yes Patient Sleeping Is family present? Yes: Present at bedside. Comment Vitals assessment completed. No needs. Equipment in Use Specialty Bed Safety Call Light Within Reach Bed Position Low Bed Exit Alarm Fall Precautions Phone Within Reach Bed Brake On Side Rails Up X1 Side Rails Up X2 Are the Floors Free From Trip Hazards? Yes Is the Room Free From Clutter? Yes Turn and Postion Bedrest No Turn Q 2HR No Patient Position Back Positioning Aides Pillows Document 08/11/16 05:06 CRS (Rec: 08/11/16 05:06 CRS 14) Hourly Rounding Hourly Rounding Checked for Patient Positioning Patient Personal Items Placed Within Reach Hourly Rounding Completed Yes Patient Sleeping Is family present? Yes: Present at bedside. Equipment in Use Specialty Bed Safety Call Light Within Reach Bed Position Low Bed Exit Alarm Fall Precautions Phone Within Reach Bed Brake On Side Rails Up X1 Side Rails Up X2 Are the Floors Free From Trip Hazards? Yes Is the Room Free From Clutter? Yes Turn and Postion Bedrest No Turn Q 2HR No Patient Position Back Positioning Aides Pillows Document 08/11/16 08:50 SLT (Rec: 08/11/16 11:04 SLT 14) Hourly Rounding Hourly Rounding Checked for Patient Positioning Patient Personal Items Placed Within Reach Checked Patient Pain Level Hourly Rounding Completed Yes Patient Awake Is family present? No Equipment in Use Specialty Bed Safety Call Light Within Reach Bed Position Low Bed Exit Alarm Fall Precautions Phone Within Reach Bed Brake On Side Rails Up X1 Side Rails Up X2 Are the Floors Free From Trip Hazards? Yes Is the Room Free From Clutter? Yes Turn and Postion Bedrest No Turn Q 2HR No Patient Position Right Side Positioning Aides Pillows Document 08/11/16 12:26 SLT (Rec: 08/11/16 12:38 SLT 14) Hourly Rounding Hourly Rounding Checked for Patient Positioning Patient Helped to Bathroom or Assisted with Bedpan or Urinal Patient Personal Items Placed Within Reach Checked Patient Pain Level Hourly Rounding Completed Yes Patient Awake Is family present? No Equipment in Use Specialty Bed Safety Call Light Within Reach Bed Position Low Bed Exit Alarm Fall Precautions Phone Within Reach Bed Brake On Side Rails Up X1 Side Rails Up X2 Are the Floors Free From Trip Hazards? Yes Is the Room Free From Clutter? Yes Turn and Postion Bedrest No Turn Q 2HR No Patient Position Bedside Commode Document 08/11/16 15:40 [id number] (Rec: 08/11/16 15:43 [id number]) Hourly Rounding Hourly Rounding Checked for Patient Positioning Patient Personal Items Placed Within Reach Hourly Rounding Completed Yes Patient Sleeping Is family present? No Safety Call Light Within Reach Bed Position Low Phone Within Reach Side Rails Up X2 Are the Floors Free From Trip Hazards? Yes Is the Room Free From Clutter? Yes Turn and Postion Bedrest No Turn Q 2HR No Patient Position Back Document 08/11/16 16:07 SLT (Rec: 08/11/16 16:21 SLT [id number]) Hourly Rounding Hourly Rounding Checked for Patient Positioning Patient Personal Items Placed Within Reach Checked Patient Pain Level Hourly Rounding Completed Yes Patient Awake Is family present? No Equipment in Use Specialty Bed Safety Call Light Within Reach Bed Position Low Bed Exit Alarm Fall Precautions Phone Within Reach Side Rails Up X2 Are the Floors Free From Trip Hazards? Yes Is the Room Free From Clutter? Yes Turn and Postion Bedrest No Turn Q 2HR No Patient Position Back Positioning Aides Pillows Head of Bed Position (degrees) 35 Document 08/11/16 18:45 SPG (Rec: 08/11/16 18:46 SPG [id number]) Hourly Rounding Hourly Rounding Checked for Patient Positioning Patient Helped to Bathroom or Assisted with Bedpan or Urinal Patient Personal Items Placed Within Reach Checked Patient Pain Level Hourly Rounding Completed Yes Patient Awake Is family present? No Equipment in Use Specialty Bed Safety Call Light Within Reach Bed Position Low Fall Precautions Phone Within Reach Bed Brake On Side Rails Up X2 Are the Floors Free From Trip Hazards? Yes Is the Room Free From Clutter? Yes Turn and Postion Bedrest No Document 08/11/16 19:33 [id number] (Rec: 08/11/16 20:36 [id number]) Hourly Rounding Hourly Rounding Checked for Patient Positioning Patient Personal Items Placed Within Reach Checked Patient Pain Level Hourly Rounding Completed Yes Patient Resting With Eyes Closed Is family present? No Equipment in Use Specialty Bed Safety Call Light Within Reach Bed Position Low Fall Precautions Phone Within Reach Bed Brake On Side Rails Up X2 Are the Floors Free From Trip Hazards? Yes Is the Room Free From Clutter? Yes Turn and Postion Bedrest No Turn Q 2HR No Patient Position Back Positioning Aides Pillows Head of Bed Position (degrees) 45 Document 08/11/16 21:12 [id number] (Rec: 08/12/16 06:02 [id number]) Hourly Rounding Hourly Rounding Checked for Patient Positioning Patient Personal Items Placed Within Reach Checked Patient Pain Level Hourly Rounding Completed Yes Patient Resting With Eyes Closed Is family present? No Equipment in Use Specialty Bed Safety Call Light Within Reach Bed Position Low Fall Precautions Phone Within Reach Bed Brake On Side Rails Up X2 Are the Floors Free From Trip Hazards? Yes Is the Room Free From Clutter? Yes Turn and Postion Bedrest No Patient Position Right Side Positioning Aides Pillows Head of Bed Position (degrees) 45 Document 08/11/16 21:56 SPG (Rec: 08/11/16 21:59 SPG [id number]) Hourly Rounding Hourly Rounding Checked for Patient Positioning Patient Personal Items Placed Within Reach Checked Patient Pain Level Hourly Rounding Completed Yes Patient Awake Is family present? No Equipment in Use Specialty Bed Safety Call Light Within Reach Bed Position Low Fall Precautions Phone Within Reach Bed Brake On Side Rails Up X2 Are the Floors Free From Trip Hazards? Yes Is the Room Free From Clutter? Yes Turn and Postion Bedrest No Document 08/11/16 23:50 [id number] (Rec: 08/12/16 06:04 [id number]) Hourly Rounding Hourly Rounding Checked for Patient Positioning Patient Personal Items Placed Within Reach Checked Patient Pain Level Hourly Rounding Completed Yes Patient Sleeping Is family present? No Equipment in Use Specialty Bed Safety Call Light Within Reach Bed Position Low Fall Precautions Phone Within Reach Bed Brake On Side Rails Up X2 Are the Floors Free From Trip Hazards? Yes Is the Room Free From Clutter? Yes Turn and Postion Bedrest No Patient Position Back Positioning Aides Pillows Head of Bed Position (degrees) 45 Document 08/12/16 00:07 SPG (Rec: 08/12/16 00:09 SPG [id number]) Hourly Rounding Hourly Rounding Checked for Patient Positioning Patient Personal Items Placed Within Reach Checked Patient Pain Level Hourly Rounding Completed Yes Patient Awake Is family present? No Equipment in Use Specialty Bed Safety Call Light Within Reach Bed Position Low Fall Precautions Phone Within Reach Bed Brake On Side Rails Up X2 Are the Floors Free From Trip Hazards? Yes Is the Room Free From Clutter? Yes Turn and Postion Bedrest No Document 08/12/16 05:17 SPG (Rec: 08/12/16 05:18 SPG [id number]) Hourly Rounding Hourly Rounding Checked for Patient Positioning Patient Personal Items Placed Within Reach Checked Patient Pain Level Hourly Rounding Completed Yes Patient Sleeping Is family present? No Equipment in Use Specialty Bed Safety Call Light Within Reach Bed Position Low Fall Precautions Phone Within Reach Bed Brake On Side Rails Up X2 Are the Floors Free From Trip Hazards? Yes Is the Room Free From Clutter? Yes Turn and Postion Bedrest No Document 08/12/16 06:04 [id number] (Rec: 08/12/16 06:07 [id number]) Hourly Rounding Hourly Rounding Checked for Patient Positioning Patient Personal Items Placed Within Reach Checked Patient Pain Level Hourly Rounding Completed Yes Patient Sleeping Is family present? No Equipment in Use Specialty Bed Safety Call Light Within Reach Bed Position Low Fall Precautions Phone Within Reach Bed Brake On Side Rails Up X2 Are the Floors Free From Trip Hazards? Yes Is the Room Free From Clutter? Yes Turn and Postion Bedrest No Document 08/12/16 07:50 MVJ (Rec: 08/12/16 07:50 MVJ [id number]) Hourly Rounding Hourly Rounding Checked for Patient Positioning Hourly Rounding Completed Yes Patient Awake Safety Call Light Within Reach Are the Floors Free From Trip Hazards? Yes Is the Room Free From Clutter? Yes Turn and Postion Bedrest No Turn Q 2HR No Document 08/12/16 08:00 SLT (Rec: 08/12/16 09:34 SLT [id number]) Hourly Rounding Hourly Rounding Checked for Patient Positioning Patient Personal Items Placed Within Reach Checked Patient Pain Level Hourly Rounding Completed Yes Patient Awake Is family present? No Equipment in Use Specialty Bed Safety Call Light Within Reach Bed Position Low Fall Precautions Phone Within Reach Bed Brake On Side Rails Up X2 Are the Floors Free From Trip Hazards? Yes Is the Room Free From Clutter? Yes Turn and Postion Bedrest No Turn Q 2HR No Patient Position Sitting on Side of Bed Document 08/12/16 09:47 MVJ (Rec: 08/12/16 09:47 MVJ [id number]) Hourly Rounding Hourly Rounding Checked for Patient Positioning Hourly Rounding Completed Yes Patient Sleeping Safety Call Light Within Reach Are the Floors Free From Trip Hazards? Yes Is the Room Free From Clutter? Yes Turn and Postion Bedrest No Turn Q 2HR No Document 08/12/16 11:58 SLT (Rec: 08/12/16 12:58 SLT [id number]) Hourly Rounding Hourly Rounding Checked for Patient Positioning Patient Personal Items Placed Within Reach Checked Patient Pain Level Hourly Rounding Completed Yes Patient Awake Is family present? No Equipment in Use Specialty Bed Safety Call Light Within Reach Are the Floors Free From Trip Hazards? Yes Is the Room Free From Clutter? Yes Turn and Postion Bedrest No Turn Q 2HR No Patient Position Sitting on Side of Bed Document 08/12/16 12:43 MVJ (Rec: 08/12/16 12:43 MVJ [id number]) Hourly Rounding Hourly Rounding Checked for Patient Positioning Hourly Rounding Completed Yes Patient Awake Safety Call Light Within Reach Are the Floors Free From Trip Hazards? Yes Is the Room Free From Clutter? Yes Turn and Postion Bedrest No Turn Q 2HR No Document 08/12/16 16:00 SLT (Rec: 08/12/16 17:53 T [id number]) Hourly Rounding Hourly Rounding Checked for Patient Positioning Patient Personal Items Placed Within Reach Checked Patient Pain Level Hourly Rounding Completed Yes Patient Awake Is family present? No Equipment in Use Specialty Bed Safety Call Light Within Reach Bed Position Low Fall Precautions Phone Within Reach Bed Brake On Side Rails Up X2 Are the Floors Free From Trip Hazards? Yes Is the Room Free From Clutter? Yes Turn and Postion Bedrest No Turn Q 2HR No Patient Position Back Head of Bed Position (degrees) 30 Document 08/12/16 19:17 [id number] (Rec: 08/13/16 03:28 [id number]) Hourly Rounding Hourly Rounding Checked for Patient Positioning Patient Helped to Bathroom or Assisted with Bedpan or Urinal Patient Personal Items Placed Within Reach Checked Patient Pain Level Hourly Rounding Completed Yes Patient Resting With Eyes Closed Is family present? No Equipment in Use Specialty Bed Safety Call Light Within Reach Bed Position Low Phone Within Reach Bed Brake On Side Rails Up X2 Are the Floors Free From Trip Hazards? Yes Is the Room Free From Clutter? Yes Turn and Postion Bedrest No Turn Q 2HR No Positioning Aides Pillows Head of Bed Position (degrees) 15 Document 08/12/16 21:35 SPG (Rec: 08/12/16 21:36 [facility] [place] Hourly Rounding Hourly Rounding Checked for Patient Positioning Patient Helped to Bathroom or Assisted with Bedpan or Urinal Patient Personal Items Placed Within Reach Checked Patient Pain Level Hourly Rounding Completed Yes Patient Awake Is family present? No Equipment in Use Specialty Bed Safety Call Light Within Reach Bed Position Low Fall Precautions Phone Within Reach Bed Brake On Side Rails Up X2 Are the Floors Free From Trip Hazards? Yes Is the Room Free From Clutter? Yes Turn and Postion Bedrest No Document 08/12/16 22:14 [id number] (Rec: 08/13/16 03:35 [id number]) Hourly Rounding Hourly Rounding Checked for Patient Positioning Patient Personal Items Placed Within Reach Checked Patient Pain Level Hourly Rounding Completed Yes Patient Awake Is family present? No Equipment in Use Specialty Bed Safety Call Light Within Reach Bed Position Low Phone Within Reach Bed Brake On Side Rails Up X2 Are the Floors Free From Trip Hazards? Yes Is the Room Free From Clutter? Yes Turn and Postion Bedrest No Turn Q 2HR No Patient Position Right Side Positioning Aides Pillows Head of Bed Position (degrees) 30 Document 08/13/16 00:18 [id number] (Rec: 08/13/16 07:56 [id number]) Hourly Rounding Hourly Rounding Checked for Patient Positioning Patient Personal Items Placed Within Reach Checked Patient Pain Level Hourly Rounding Completed Yes Patient Sleeping Is family present? No Equipment in Use Specialty Bed Safety Call Light Within Reach Bed Position Low Fall Precautions Phone Within Reach Bed Brake On Side Rails Up X2 Are the Floors Free From Trip Hazards? Yes Is the Room Free From Clutter? Yes Turn and Postion Bedrest No Turn Q 2HR No Patient Position Right Side Positioning Aides Pillows Head of Bed Position (degrees) 30 Document 08/13/16 01:06 SPG (Rec: 08/13/16 01:08 [facility] [place] Hourly Rounding Hourly Rounding Checked for Patient Positioning Patient Helped to Bathroom or Assisted with Bedpan or Urinal Patient Personal Items Placed Within Reach Checked Patient Pain Level Hourly Rounding Completed Yes Patient Awake Is family present? No Equipment in Use Specialty Bed Safety Call Light Within Reach Bed Position Low Phone Within Reach Bed Brake On Side Rails Up X2 Are the Floors Free From Trip Hazards? Yes Is the Room Free From Clutter? Yes Turn and Postion Bedrest No Document 08/13/16 04:48 [id number] (Rec: 08/13/16 07:59 [id number]) Hourly Rounding Hourly Rounding Checked for Patient Positioning Patient Personal Items Placed Within Reach Checked Patient Pain Level Hourly Rounding Completed Yes Patient Sleeping Is family present? No Equipment in Use Specialty Bed Safety Call Light Within Reach Bed Position Low Fall Precautions Phone Within Reach Bed Brake On Side Rails Up X2 Are the Floors Free From Trip Hazards? Yes Is the Room Free From Clutter? Yes Turn and Postion Bedrest No Turn Q 2HR No Patient Position Right Side Positioning Aides Pillows Head of Bed Position (degrees) 35 Document 08/13/16 05:27 SPG (Rec: 08/13/16 05:29 SPG [id number]) Hourly Rounding Hourly Rounding Checked for Patient Positioning Patient Personal Items Placed Within Reach Checked Patient Pain Level Hourly Rounding Completed Yes Patient Resting With Eyes Closed Is family present? No Equipment in Use Specialty Bed Safety Call Light Within Reach Bed Position Low Fall Precautions Phone Within Reach Bed Brake On Side Rails Up X2 Are the Floors Free From Trip Hazards? Yes Is the Room Free From Clutter? Yes Turn and Postion Bedrest No Document 08/13/16 08:00 RDC (Rec: 08/13/16 09:54 RD [id number]) Hourly Rounding Hourly Rounding Checked for Patient Positioning Patient Personal Items Placed Within Reach Checked Patient Pain Level Hourly Rounding Completed Yes Patient Awake Is family present? No Equipment in Use Specialty Bed Safety Call Light Within Reach Bed Position Low Fall Precautions Phone Within Reach Bed Brake On Side Rails Up X2 Are the Floors Free From Trip Hazards? Yes Is the Room Free From Clutter? Yes Turn and Postion Bedrest No Patient Position Sitting up in Bed Document 08/13/16 11:49 RD (Rec: 08/13/16 11:50 [facility] [id number]) Hourly Rounding Hourly Rounding Checked for Patient Positioning Patient Personal Items Placed Within Reach Checked Patient Pain Level Hourly Rounding Completed Yes Patient Awake Is family present? No Equipment in Use Specialty Bed Safety Call Light Within Reach Bed Position Low Fall Precautions Phone Within Reach Bed Brake On Side Rails Up X2 Are the Floors Free From Trip Hazards? Yes Is the Room Free From Clutter? Yes Turn and Postion Bedrest No Patient Position Sitting up in Bed Document 08/13/16 15:22 [facility] (Rec: 08/13/16 15:28 [id number] Hourly Rounding Hourly Rounding Checked for Patient Positioning Patient Personal Items Placed Within Reach Checked Patient Pain Level Hourly Rounding Completed Yes Patient Awake Is family present? No Equipment in Use Specialty Bed Safety Call Light Within Reach Bed Position Low Fall Precautions Phone Within Reach Bed Brake On Side Rails Up X2 Are the Floors Free From Trip Hazards? Yes Is the Room Free From Clutter? Yes Turn and Postion Bedrest No Patient Position Sitting up in Bed Document 08/13/16 20:20 [facility] (Rec: 08/13/16 20:21 [id number] Hourly Rounding Hourly Rounding Checked for Patient Positioning Patient Personal Items Placed Within Reach Checked Patient Pain Level Hourly Rounding Completed Yes Patient Awake Is family present? No Equipment in Use Specialty Bed Safety Call Light Within Reach Bed Position Low Fall Precautions Phone Within Reach Bed Brake On Side Rails Up X2 Are the Floors Free From Trip Hazards? Yes Is the Room Free From Clutter? Yes Turn and Postion Bedrest No Turn Q 2HR No Patient Position Back Document 08/14/16 01:06 BA (Rec: 08/14/16 01:06 BA [id number]) Hourly Rounding Hourly Rounding Checked for Patient Positioning Patient Personal Items Placed Within Reach Hourly Rounding Completed Yes Patient Sleeping Is family present? No Equipment in Use Specialty Bed Safety Call Light Within Reach Bed Position Low Fall Precautions Phone Within Reach Bed Brake On Side Rails Up X2 Are the Floors Free From Trip Hazards? Yes Is the Room Free From Clutter? Yes Turn and Postion Bedrest No Turn Q 2HR No Patient Position Back Document 08/14/16 04:18 [facility] (Rec: 08/14/16 04:18 [id number] Hourly Rounding Hourly Rounding Checked for Patient Positioning Patient Personal Items Placed Within Reach Hourly Rounding Completed Yes Patient Sleeping Is family present? No Equipment in Use Specialty Bed Safety Call Light Within Reach Bed Position Low Fall Precautions Phone Within Reach Bed Brake On Side Rails Up X2 Are the Floors Free From Trip Hazards? Yes Is the Room Free From Clutter? Yes Turn and Postion Bedrest No Turn Q 2HR No Patient Position Right Side Document 08/14/16 06:10 [facility] (Rec: 08/14/16 06:11 [facility] [id number]) Hourly Rounding Hourly Rounding Checked for Patient Positioning Patient Personal Items Placed Within Reach Hourly Rounding Completed Yes Patient Sleeping Is family present? No Equipment in Use Specialty Bed Safety Call Light Within Reach Bed Position Low Bed Exit Alarm Fall Precautions Phone Within Reach Bed Brake On Side Rails Up X2 Are the Floors Free From Trip Hazards? Yes Is the Room Free From Clutter? Yes Turn and Postion Bedrest No Turn Q 2HR No Patient Position Back Document 08/14/16 08:34 [facility] (Rec: 08/14/16 08:38 EPR [id number]) Hourly Rounding Hourly Rounding Checked for Patient Positioning Patient Personal Items Placed Within Reach Checked Patient Pain Level Hourly Rounding Completed Yes Patient Awake Is family present? No Equipment in Use Specialty Bed Safety Call Light Within Reach Bed Position Low Bed Exit Alarm Fall Precautions Phone Within Reach Bed Brake On Side Rails Up X2 Are the Floors Free From Trip Hazards? Yes Is the Room Free From Clutter? Yes Turn and Postion Bedrest No Turn Q 2HR No Patient Position Back Document 08/14/16 10:34 [facility] (Rec: 08/14/16 10:34 [facility] [id number]) Hourly Rounding Hourly Rounding Checked for Patient Positioning Patient Personal Items Placed Within Reach Checked Patient Pain Level Hourly Rounding Completed Yes Patient Awake Is family present? No Equipment in Use Specialty Bed Safety Call Light Within Reach Bed Position Low Bed Exit Alarm Fall Precautions Phone Within Reach Bed Brake On Side Rails Up X2 Are the Floors Free From Trip Hazards? Yes Is the Room Free From Clutter? Yes Turn and Postion Bedrest No Turn Q 2HR No Patient Position Back Document 08/14/16 11:35 [facility] (Rec: 08/14/16 11:36 [facility]PR [id number]) Hourly Rounding Hourly Rounding Checked for Patient Positioning Patient Personal Items Placed Within Reach Checked Patient Pain Level Hourly Rounding Completed Yes Patient Awake Is family present? No Equipment in Use Specialty Bed Safety Call Light Within Reach Bed Position Low Bed Exit Alarm Fall Precautions Phone Within Reach Bed Brake On Side Rails Up X2 Are the Floors Free From Trip Hazards? Yes Is the Room Free From Clutter? Yes Turn and Postion Bedrest No Turn Q 2HR No Patient Position Back Document 08/14/16 15:43 [facility] (Rec: 08/14/16 15:44 [facility]PR [id number]) Hourly Rounding Hourly Rounding Checked for Patient Positioning Patient Personal Items Placed Within Reach Checked Patient Pain Level Hourly Rounding Completed Yes Patient Awake Is family present? No Equipment in Use Specialty Bed Safety Call Light Within Reach Bed Position Low Bed Exit Alarm Fall Precautions Phone Within Reach Bed Brake On Side Rails Up X2 Are the Floors Free From Trip Hazards? Yes Is the Room Free From Clutter? Yes Turn and Postion Bedrest No Turn Q 2HR No Patient Position Back Document 08/14/16 21:22 [facility] (Rec: 08/14/16 21:31 [facility] [id number]) Hourly Rounding Hourly Rounding Checked for Patient Positioning Patient Personal Items Placed Within Reach Checked Patient Pain Level Hourly Rounding Completed Yes Patient Awake Is family present? No Safety Call Light Within Reach Bed Position Low Fall Precautions Phone Within Reach Bed Brake On Side Rails Up X2 Are the Floors Free From Trip Hazards? Yes Is the Room Free From Clutter? Yes Turn and Postion Bedrest No Turn Q 2HR No Patient Position Back Positioning Aides Pillows Document 08/14/16 22:02 [facility] (Rec: 08/14/16 22:05 [facility] [id number]) Hourly Rounding Hourly Rounding Checked for Patient Positioning Patient Personal Items Placed Within Reach Checked Patient Pain Level Hourly Rounding Completed Yes Patient Awake Is family present? No Equipment in Use Specialty Bed Safety Call Light Within Reach Bed Position Low Fall Precautions Phone Within Reach Bed Brake On Side Rails Up X2 Are the Floors Free From Trip Hazards? Yes Is the Room Free From Clutter? Yes Turn and Postion Bedrest No Turn Q 2HR No Patient Position Back Positioning Aides Pillows Document 08/14/16 23:15 [facility] (Rec: 08/14/16 23:22 [facility] [id number]) Hourly Rounding Hourly Rounding Checked for Patient Positioning Patient Personal Items Placed Within Reach Checked Patient Pain Level Hourly Rounding Completed Yes Patient Resting With Eyes Closed Is family present? No Safety Call Light Within Reach Bed Position Low Fall Precautions Phone Within Reach Bed Brake On Side Rails Up X2 Are the Floors Free From Trip Hazards? Yes Is the Room Free From Clutter? Yes Turn and Postion Bedrest No Turn Q 2HR No Patient Position Back Positioning Aides Pillows Document 08/15/16 04:13 [facility] (Rec: 08/15/16 04:20 [facility] [id number]) Hourly Rounding Hourly Rounding Checked for Patient Positioning Patient Personal Items Placed Within Reach Checked Patient Pain Level Hourly Rounding Completed Yes Patient Resting With Eyes Closed Is family present? No Safety Call Light Within Reach Bed Position Low Fall Precautions Phone Within Reach Bed Brake On Side Rails Up X2 Are the Floors Free From Trip Hazards? Yes Is the Room Free From Clutter? Yes Turn and Postion Bedrest No Turn Q 2HR No Patient Position Back Positioning Aides Pillows Document 08/15/16 07:27 [facility] (Rec: 08/15/16 07:31 [facility] [id number]) Hourly Rounding Hourly Rounding Checked for Patient Positioning Patient Personal Items Placed Within Reach Hourly Rounding Completed Yes Patient Sleeping Is family present? No Safety Call Light Within Reach Bed Position Low Fall Precautions Phone Within Reach Bed Brake On Side Rails Up X1 Side Rails Up X2 Are the Floors Free From Trip Hazards? Yes Is the Room Free From Clutter? Yes Turn and Postion Bedrest No Turn Q 2HR No Patient Position Back Document 08/15/16 08:49 [facility] (Rec: 08/15/16 08:50 [facility] [id number]) Hourly Rounding Hourly Rounding Checked for Patient Positioning Patient Personal Items Placed Within Reach Checked Patient Pain Level Hourly Rounding Completed Yes Patient Awake Is family present? No Equipment in Use Specialty Bed Safety Call Light Within Reach Bed Position Low Fall Precautions Phone Within Reach Bed Brake On Side Rails Up X2 Are the Floors Free From Trip Hazards? Yes Is the Room Free From Clutter? Yes Turn and Postion Bedrest No Turn Q 2HR No Patient Position Back Document 08/15/16 09:00 [facility] (Rec: 08/15/16 09:21 [facility] [id number]) Hourly Rounding Hourly Rounding Checked for Patient Positioning Checked Patient Pain Level Hourly Rounding Completed Yes Patient Awake Is family present? No Safety Call Light Within Reach Bed Position Low Fall Precautions Phone Within Reach Bed Brake On Side Rails Up X1 Side Rails Up X2 Are the Floors Free From Trip Hazards? Yes Is the Room Free From Clutter? Yes Turn and Postion Bedrest No Turn Q 2HR No Patient Position Back Document 08/15/16 11:31 [facility] (Rec: 08/15/16 11:37 [facility] [id number]) Hourly Rounding Hourly Rounding Checked for Patient Positioning Patient Personal Items Placed Within Reach Hourly Rounding Completed Yes Patient Resting With Eyes Closed Is family present? No Equipment in Use Specialty Bed Safety Call Light Within Reach Bed Position Low Fall Precautions Phone Within Reach Bed Brake On Side Rails Up X1 Side Rails Up X2 Are the Floors Free From Trip Hazards? Yes Is the Room Free From Clutter? Yes Turn and Postion Bedrest No Turn Q 2HR No Patient Position Back Positioning Aides Pillows Document 08/15/16 11:45 RD (Rec: 08/15/16 13:42 [facility] [id number]) Hourly Rounding Hourly Rounding Checked for Patient Positioning Patient Personal Items Placed Within Reach Checked Patient Pain Level Hourly Rounding Completed Yes Patient Awake Is family present? No Equipment in Use Specialty Bed Safety Call Light Within Reach Bed Position Low Fall Precautions Phone Within Reach Bed Brake On Side Rails Up X1 Side Rails Up X2 Are the Floors Free From Trip Hazards? Yes Is the Room Free From Clutter? Yes Turn and Postion Bedrest No Turn Q 2HR No Patient Position Back Document 08/15/16 13:24 [facility] (Rec: 08/15/16 13:25 [facility] [id number]) Hourly Rounding Hourly Rounding Checked for Patient Positioning Patient Personal Items Placed Within Reach Hourly Rounding Completed Yes Patient Awake Is family present? No Safety Call Light Within Reach Bed Position Low Fall Precautions Phone Within Reach Bed Brake On Side Rails Up X1 Side Rails Up X2 Are the Floors Free From Trip Hazards? Yes Is the Room Free From Clutter? Yes Turn and Postion Bedrest No Turn Q 2HR No Patient Position Back Document 08/15/16 15:03 [facility] (Rec: 08/15/16 15:08 [facility] [id number]) Hourly Rounding Hourly Rounding Checked for Patient Positioning Patient Personal Items Placed Within Reach Hourly Rounding Completed Yes Patient Awake Is family present? No Equipment in Use Specialty Bed Safety Call Light Within Reach Bed Position Low Fall Precautions Phone Within Reach Bed Brake On Side Rails Up X1 Side Rails Up X2 Are the Floors Free From Trip Hazards? Yes Is the Room Free From Clutter? Yes Turn and Postion Bedrest No Turn Q 2HR No Patient Position Back Positioning Aides Pillows Document 08/15/16 16:33 [facility] (Rec: 08/15/16 16:40 [facility] [id number]) Hourly Rounding Hourly Rounding Checked for Patient Positioning Patient Personal Items Placed Within Reach Hourly Rounding Completed Yes Patient Sleeping Is family present? No Safety Call Light Within Reach Bed Position Low Fall Precautions Phone Within Reach Bed Brake On Side Rails Up X1 Side Rails Up X2 Are the Floors Free From Trip Hazards? Yes Is the Room Free From Clutter? Yes Turn and Postion Bedrest No Turn Q 2HR No Patient Position Back Document 08/15/16 16:35 [facility] (Rec: 08/15/16 17:56 [id number]) Hourly Rounding Hourly Rounding Checked for Patient Positioning Patient Personal Items Placed Within Reach Hourly Rounding Completed Yes Patient Sleeping Is family present? No Equipment in Use Specialty Bed Safety Call Light Within Reach Bed Position Low Fall Precautions Phone Within Reach Bed Brake On Side Rails Up X1 Side Rails Up X2 Are the Floors Free From Trip Hazards? Yes Is the Room Free From Clutter? Yes Turn and Postion Bedrest No Turn Q 2HR No Patient Position Back Document 08/15/16 18:48 ADD (Rec: 08/15/16 18:49 ADD [id number]) Hourly Rounding Hourly Rounding Patient Personal Items Placed Within Reach Hourly Rounding Completed Yes Patient Awake Equipment in Use Specialty Bed Safety Call Light Within Reach Bed Position Low Phone Within Reach Bed Brake On Side Rails Up X2 Are the Floors Free From Trip Hazards? Yes Is the Room Free From Clutter? Yes Document 08/15/16 19:15 [facility] (Rec: 08/15/16 19:18 [id number]) Hourly Rounding Hourly Rounding Checked for Patient Positioning Patient Personal Items Placed Within Reach Checked Patient Pain Level Hourly Rounding Completed Yes Patient Resting With Eyes Closed Is family present? No Safety Call Light Within Reach Bed Position Low Fall Precautions Phone Within Reach Bed Brake On Side Rails Up X2 Are the Floors Free From Trip Hazards? Yes Is the Room Free From Clutter? Yes Turn and Postion Bedrest No Turn Q 2HR No Patient Position Back Positioning Aides Pillows Document 08/15/16 20:00 [facility] (Rec: 08/15/16 22:40 [facility] [id number]) Hourly Rounding Hourly Rounding Checked for Patient Positioning Patient Personal Items Placed Within Reach Checked Patient Pain Level Hourly Rounding Completed Yes Patient Awake Is family present? No Equipment in Use Specialty Bed Safety Call Light Within Reach Bed Position Low Fall Precautions Phone Within Reach Bed Brake On Side Rails Up X2 Are the Floors Free From Trip Hazards? Yes Is the Room Free From Clutter? Yes Turn and Postion Bedrest No Turn Q 2HR No Patient Position Back Document 08/15/16 22:40 [facility] (Rec: 08/15/16 22:40 [id number] Hourly Rounding Hourly Rounding Checked for Patient Positioning Patient Personal Items Placed Within Reach Hourly Rounding Completed Yes Patient Awake Is family present? No Equipment in Use Specialty Bed Safety Call Light Within Reach Bed Position Low Fall Precautions Phone Within Reach Bed Brake On Side Rails Up X2 Are the Floors Free From Trip Hazards? Yes Is the Room Free From Clutter? Yes Turn and Postion Bedrest No Turn Q 2HR No Patient Position Back Document 08/15/16 23:48 BE (Rec: 08/15/16 23:48 [id number] Hourly Rounding Hourly Rounding Checked for Patient Positioning Patient Personal Items Placed Within Reach Hourly Rounding Completed Yes Patient Awake Is family present? No Equipment in Use Specialty Bed Safety Call Light Within Reach Bed Position Low Fall Precautions Phone Within Reach Bed Brake On Side Rails Up X2 Are the Floors Free From Trip Hazards? Yes Is the Room Free From Clutter? Yes Turn and Postion Bedrest No Turn Q 2HR No Patient Position Back Document 08/16/16 00:11 [facility] (Rec: 08/16/16 00:11 [id number]) Hourly Rounding Hourly Rounding Checked for Patient Positioning Patient Personal Items Placed Within Reach Hourly Rounding Completed Yes Patient Awake Is family present? No Equipment in Use Specialty Bed Safety Call Light Within Reach Bed Position Low Fall Precautions Phone Within Reach Bed Brake On Side Rails Up X2 Are the Floors Free From Trip Hazards? Yes Is the Room Free From Clutter? Yes Turn and Postion Bedrest No Turn Q 2HR No Patient Position Back Document 08/16/16 00:50 [facility] (Rec: 08/16/16 00:56 F [id number]) Hourly Rounding Hourly Rounding Checked for Patient Positioning Patient Personal Items Placed Within Reach Checked Patient Pain Level Hourly Rounding Completed Yes Patient Resting With Eyes Closed Is family present? No Safety Call Light Within Reach Bed Position Low Fall Precautions Phone Within Reach Bed Brake On Side Rails Up X2 Are the Floors Free From Trip Hazards? Yes Is the Room Free From Clutter? Yes Turn and Postion Bedrest No Turn Q 2HR No Patient Position Back Positioning Aides Pillows Document 08/16/16 03:56 [facility] (Rec: 08/16/16 04:01 F [id number]) Hourly Rounding Hourly Rounding Checked for Patient Positioning Patient Personal Items Placed Within Reach Checked Patient Pain Level Hourly Rounding Completed Yes Patient Resting With Eyes Closed Is family present? No Safety Call Light Within Reach Bed Position Low Fall Precautions Phone Within Reach Bed Brake On Side Rails Up X2 Are the Floors Free From Trip Hazards? Yes Is the Room Free From Clutter? Yes Turn and Postion Bedrest No Turn Q 2HR No Patient Position Back Positioning Aides Pillows Document 08/16/16 05:03 [facility] (Rec: 08/16/16 05:06 [facility] [id number]) Hourly Rounding Hourly Rounding Checked for Patient Positioning Patient Personal Items Placed Within Reach Checked Patient Pain Level Hourly Rounding Completed Yes Patient Awake Is family present? No Equipment in Use Specialty Bed Safety Call Light Within Reach Bed Position Low Fall Precautions Phone Within Reach Bed Brake On Side Rails Up X2 Are the Floors Free From Trip Hazards? Yes Is the Room Free From Clutter? Yes Turn and Postion Bedrest No Turn Q 2HR No Patient Position Sitting on Side of Bed Positioning Aides Pillows Document 08/16/16 07:34 [facility] (Rec: 08/16/16 07:39 [facility] [id number]) Hourly Rounding Hourly Rounding Checked for Patient Positioning Patient Personal Items Placed Within Reach Hourly Rounding Completed Yes Patient Awake Is family present? No Safety Call Light Within Reach Bed Position Low Fall Precautions Phone Within Reach Bed Brake On Side Rails Up X1 Side Rails Up X2 Are the Floors Free From Trip Hazards? Yes Is the Room Free From Clutter? Yes Turn and Postion Bedrest No Turn Q 2HR No Patient Position Back Document 08/16/16 08:30 [facility] (Rec: 08/16/16 10:06 [facility] [id number]) Hourly Rounding Hourly Rounding Checked for Patient Positioning Patient Personal Items Placed Within Reach Checked Patient Pain Level Hourly Rounding Completed Yes Patient Sleeping Is family present? No Equipment in Use Specialty Bed Safety Call Light Within Reach Bed Position Low Fall Precautions Phone Within Reach Bed Brake On Side Rails Up X1 Side Rails Up X2 Are the Floors Free From Trip Hazards? Yes Is the Room Free From Clutter? Yes Turn and Postion Bedrest No Turn Q 2HR No Patient Position Right Side Document 08/16/16 09:00 [facility] (Rec: 08/16/16 09:17 [place] [id number]) Hourly Rounding Hourly Rounding Checked for Patient Positioning Patient Personal Items Placed Within Reach Hourly Rounding Completed Yes Patient Sleeping Is family present? No Safety Call Light Within Reach Bed Position Low Phone Within Reach Bed Brake On Side Rails Up X1 Side Rails Up X2 Are the Floors Free From Trip Hazards? Yes Is the Room Free From Clutter? Yes Turn and Postion Bedrest No Turn Q 2HR No Patient Position Right Side Document 08/16/16 11:00 [facility] (Rec: 08/16/16 11:32 [place] [id number]) Hourly Rounding Hourly Rounding Checked for Patient Positioning Patient Personal Items Placed Within Reach Hourly Rounding Completed Yes Patient Awake Is family present? No Safety Call Light Within Reach Bed Position Low Fall Precautions Phone Within Reach Bed Brake On Side Rails Up X1 Side Rails Up X2 Are the Floors Free From Trip Hazards? Yes Is the Room Free From Clutter? Yes Turn and Postion Bedrest No Turn Q 2HR No Patient Position Back Document 08/16/16 11:36 [facility] (Rec: 08/16/16 11:[id number]) Hourly Rounding Hourly Rounding Checked for Patient Positioning Patient Personal Items Placed Within Reach Checked Patient Pain Level Hourly Rounding Completed Yes Patient Resting With Eyes Closed Is family present? No Equipment in Use Specialty Bed Safety Call Light Within Reach Bed Position Low Fall Precautions Phone Within Reach Bed Brake On Side Rails Up X1 Side Rails Up X2 Are the Floors Free From Trip Hazards? Yes Is the Room Free From Clutter? Yes Turn and Postion Bedrest No Turn Q 2HR No Patient Position Back Document 08/16/16 13:00 [facility] (Rec: 08/16/16 13:14 [place] [id number]) Hourly Rounding Hourly Rounding Checked for Patient Positioning Patient Personal Items Placed Within Reach Hourly Rounding Completed Yes Patient Sleeping Is family present? No Safety Call Light Within Reach Bed Position Low Fall Precautions Phone Within Reach Bed Brake On Side Rails Up X1 Side Rails Up X2 Are the Floors Free From Trip Hazards? Yes Is the Room Free From Clutter? Yes Turn and Postion Bedrest No Turn Q 2HR No Patient Position Back Document 08/16/16 16:22 [facility] (Rec: 08/16/16 16:29 [facility] [id number]) Hourly Rounding Hourly Rounding Checked for Patient Positioning Patient Personal Items Placed Within Reach Hourly Rounding Completed Yes Patient Awake Is family present? No Safety Call Light Within Reach Bed Position Low Fall Precautions Phone Within Reach Bed Brake On Side Rails Up X1 Side Rails Up X2 Are the Floors Free From Trip Hazards? Yes Is the Room Free From Clutter? Yes Turn and Postion Bedrest No Turn Q 2HR No Patient Position Back Document 08/16/16 17:00 RD (Rec: 08/16/16 18:[address] [id number]) Hourly Rounding Hourly Rounding Checked for Patient Positioning Patient Personal Items Placed Within Reach Checked Patient Pain Level Hourly Rounding Completed Yes Patient Awake Is family present? No Equipment in Use Specialty Bed Safety Call Light Within Reach Bed Position Low Fall Precautions Phone Within Reach Bed Brake On Side Rails Up X1 Side Rails Up X2 Are the Floors Free From Trip Hazards? Yes Is the Room Free From Clutter? Yes Turn and Postion Bedrest No Turn Q 2HR No Patient Position Back Document 08/16/16 18:53 [facility] (Rec: 08/16/16 18:57 [facility] 17) Hourly Rounding Hourly Rounding Checked for Patient Positioning Patient Personal Items Placed Within Reach Checked Patient Pain Level Hourly Rounding Completed Yes Patient Awake Is family present? No Safety Call Light Within Reach Bed Position Low Fall Precautions Phone Within Reach Bed Brake On Side Rails Up X2 Are the Floors Free From Trip Hazards? Yes Is the Room Free From Clutter? Yes Turn and Postion Bedrest No Turn Q 2HR No Patient Position Back Positioning Aides Pillows Document 08/16/16 19:43 [facility] (Rec: 08/16/16 19:48 [facility] [id number]) Hourly Rounding Hourly Rounding Checked for Patient Positioning Patient Personal Items Placed Within Reach Checked Patient Pain Level Hourly Rounding Completed Yes Patient Awake Is family present? No Equipment in Use Specialty Bed Safety Call Light Within Reach Bed Position Low Fall Precautions Phone Within Reach Bed Brake On Side Rails Up X2 Are the Floors Free From Trip Hazards? Yes Is the Room Free From Clutter? Yes Turn and Postion Bedrest No Turn Q 2HR No Patient Position Back Positioning Aides Pillows Document 08/16/16 21:40 [facility] (Rec: 08/17/16 00:18 [facility] 14) Hourly Rounding Hourly Rounding Checked for Patient Positioning Patient Personal Items Placed Within Reach Checked Patient Pain Level Hourly Rounding Completed Yes Patient Awake Is family present? No Equipment in Use Specialty Bed Safety Call Light Within Reach Bed Position Low Fall Precautions Phone Within Reach Bed Brake On Side Rails Up X2 Are the Floors Free From Trip Hazards? Yes Is the Room Free From Clutter? Yes Turn and Postion Bedrest No Turn Q 2HR No Patient Position Sitting up in Bed Positioning Aides Pillows Document 08/16/16 21:57 [facility] (Rec: 08/16/16 21:57 BE ) Hourly Rounding Hourly Rounding Checked for Patient Positioning Patient Personal Items Placed Within Reach Checked Patient Pain Level Hourly Rounding Completed Yes Patient Awake Is family present? No Equipment in Use Specialty Bed Safety Call Light Within Reach Bed Position Low Fall Precautions Phone Within Reach Bed Brake On Side Rails Up X2 Are the Floors Free From Trip Hazards? Yes Is the Room Free From Clutter? Yes Turn and Postion Bedrest No Turn Q 2HR No Patient Position Right Side Positioning Aides Pillows Document 08/16/16 22:55 F (Rec: 08/16/16 23:07 F ) Hourly Rounding Hourly Rounding Checked for Patient Positioning Patient Personal Items Placed Within Reach Checked Patient Pain Level Hourly Rounding Completed Yes Patient Resting With Eyes Closed Is family present? No Safety Call Light Within Reach Bed Position Low Fall Precautions Phone Within Reach Bed Brake On Side Rails Up X2 Are the Floors Free From Trip Hazards? Yes Is the Room Free From Clutter? Yes Turn and Postion Bedrest No Turn Q 2HR No Patient Position Back Positioning Aides Pillows Document 08/16/16 23:54 [facility] (Rec: 08/16/16 23:54 BE 14) Hourly Rounding Hourly Rounding Checked for Patient Positioning Patient Personal Items Placed Within Reach Checked Patient Pain Level Hourly Rounding Completed Yes Patient Awake Is family present? No Equipment in Use Specialty Bed Safety Call Light Within Reach Bed Position Low Fall Precautions Phone Within Reach Bed Brake On Side Rails Up X2 Are the Floors Free From Trip Hazards? Yes Is the Room Free From Clutter? Yes Turn and Postion Bedrest No Turn Q 2HR No Patient Position Back Positioning Aides Pillows Document 08/17/16 00:10 [facility] (Rec: 08/17/16 04:03 [facility] 14) Hourly Rounding Hourly Rounding Checked for Patient Positioning Patient Personal Items Placed Within Reach Checked Patient Pain Level Hourly Rounding Completed Yes Patient Awake Is family present? No Equipment in Use Specialty Bed Safety Call Light Within Reach Bed Position Low Fall Precautions Phone Within Reach Bed Brake On Side Rails Up X2 Are the Floors Free From Trip Hazards? Yes Is the Room Free From Clutter? Yes Turn and Postion Bedrest No Turn Q 2HR No Patient Position Back Positioning Aides Pillows Document 08/17/16 01:35 BEF (Rec: 08/17/16 04:03 [facility] ) Hourly Rounding Hourly Rounding Checked for Patient Positioning Patient Personal Items Placed Within Reach Checked Patient Pain Level Hourly Rounding Completed Yes Patient Awake Is family present? No Equipment in Use Specialty Bed Safety Call Light Within Reach Bed Position Low Fall Precautions Phone Within Reach Bed Brake On Side Rails Up X2 Are the Floors Free From Trip Hazards? Yes Is the Room Free From Clutter? Yes Turn and Postion Bedrest No Turn Q 2HR No Patient Position Back Positioning Aides Pillows Document 08/17/16 02:20 BEF (Rec: 08/17/16 04:03 [facility] ) Hourly Rounding Hourly Rounding Checked for Patient Positioning Patient Personal Items Placed Within Reach Checked Patient Pain Level Hourly Rounding Completed Yes Patient Awake Is family present? No Equipment in Use Specialty Bed Safety Call Light Within Reach Bed Position Low Fall Precautions Phone Within Reach Bed Brake On Side Rails Up X2 Are the Floors Free From Trip Hazards? Yes Is the Room Free From Clutter? Yes Turn and Postion Bedrest No Turn Q 2HR No Patient Position Back Positioning Aides Pillows Document 08/17/16 03:05 F (Rec: 08/17/16 03:23 [facility] ) Hourly Rounding Hourly Rounding Checked for Patient Positioning Patient Personal Items Placed Within Reach Checked Patient Pain Level Hourly Rounding Completed Yes Patient Resting With Eyes Closed Is family present? No Safety Call Light Within Reach Bed Position Low Fall Precautions Phone Within Reach Bed Brake On Side Rails Up X2 Are the Floors Free From Trip Hazards? Yes Is the Room Free From Clutter? Yes Turn and Postion Bedrest No Turn Q 2HR No Patient Position Back Positioning Aides Pillows Document 08/17/16 03:10 BEF (Rec: 08/17/16 03:10 BEF 2A14) Hourly Rounding Hourly Rounding Checked for Patient Positioning Patient Personal Items Placed Within Reach Checked Patient Pain Level Hourly Rounding Completed Yes Patient Awake Is family present? No Equipment in Use Specialty Bed Safety Call Light Within Reach Bed Position Low Fall Precautions Phone Within Reach Bed Brake On Side Rails Up X2 Are the Floors Free From Trip Hazards? Yes Is the Room Free From Clutter? Yes Turn and Postion Bedrest No Turn Q 2HR No Patient Position Back Positioning Aides Pillows Document 08/17/16 04:41 BEF (Rec: 08/17/16 04:44 BEF ) Hourly Rounding Hourly Rounding Checked for Patient Positioning Patient Personal Items Placed Within Reach Hourly Rounding Completed Yes Patient Sleeping Is family present? No Equipment in Use Specialty Bed Safety Call Light Within Reach Bed Position Low Fall Precautions Phone Within Reach Bed Brake On Side Rails Up X2 Are the Floors Free From Trip Hazards? Yes Is the Room Free From Clutter? Yes Turn and Postion Bedrest No Turn Q 2HR No Patient Position Back Positioning Aides Pillows Document 08/17/16 06:00 VVP (Rec: 08/17/16 07:23 VVP 17) Hourly Rounding Hourly Rounding Completed Yes Patient Sleeping Is family present? No Safety Call Light Within Reach Bed Position Low Fall Precautions Phone Within Reach Bed Brake On Side Rails Up X2 Are the Floors Free From Trip Hazards? Yes Is the Room Free From Clutter? Yes Turn and Postion Bedrest No Turn Q 2HR No Document 08/17/16 06:04 BEF (Rec: 08/17/16 06:04 BEF [id number]) Hourly Rounding Hourly Rounding Checked for Patient Positioning Patient Personal Items Placed Within Reach Hourly Rounding Completed Yes Patient Awake Is family present? No Equipment in Use Specialty Bed Safety Call Light Within Reach Bed Position Low Fall Precautions Phone Within Reach Bed Brake On Side Rails Up X2 Are the Floors Free From Trip Hazards? Yes Is the Room Free From Clutter? Yes Turn and Postion Bedrest No Turn Q 2HR No Patient Position Back Positioning Aides Pillows Document 08/17/16 07:22 AYW (Rec: 08/17/16 07:22 AYW [id number]) Hourly Rounding Hourly Rounding Checked for Patient Positioning Patient Personal Items Placed Within Reach Hourly Rounding Completed Yes Patient Sleeping Is family present? No Equipment in Use Specialty Bed Safety Call Light Within Reach Bed Position Low Fall Precautions Phone Within Reach Bed Brake On Side Rails Up X2 Are the Floors Free From Trip Hazards? Yes Is the Room Free From Clutter? Yes Turn and Postion Bedrest No Turn Q 2HR No Patient Position Back Document 08/17/16 08:00 VVP (Rec: 08/17/16 09:23 VVP [facility]) Hourly Rounding Hourly Rounding Completed Yes Patient Awake Is family present? No Safety Call Light Within Reach Bed Position Low Fall Precautions Phone Within Reach Bed Brake On Side Rails Up X2 Are the Floors Free From Trip Hazards? Yes Is the Room Free From Clutter? Yes Turn and Postion Bedrest No Turn Q 2HR No Document 08/17/16 09:10 AYW (Rec: 08/17/16 10:06 AYW 14) Hourly Rounding Hourly Rounding Checked for Patient Positioning Patient Personal Items Placed Within Reach Checked Patient Pain Level Hourly Rounding Completed Yes Patient Awake Is family present? No Equipment in Use Specialty Bed Safety Call Light Within Reach Bed Position Low Fall Precautions Phone Within Reach Bed Brake On Side Rails Up X2 Are the Floors Free From Trip Hazards? Yes Is the Room Free From Clutter? Yes Turn and Postion Bedrest No Turn Q 2HR No Patient Position Back Head of Bed Position (degrees) 30 Document 08/17/16 11:41 AYW (Rec: 08/17/16 11:42 AYW 14) Hourly Rounding Hourly Rounding Checked for Patient Positioning Patient Personal Items Placed Within Reach Checked Patient Pain Level Hourly Rounding Completed Yes Patient Sleeping Is family present? No Comment awakens to nurses voice Equipment in Use Specialty Bed Safety Call Light Within Reach Bed Position Low Fall Precautions Phone Within Reach Bed Brake On Side Rails Up X2 Are the Floors Free From Trip Hazards? Yes Is the Room Free From Clutter? Yes Turn and Postion Bedrest No Turn Q 2HR No Patient Position Back Head of Bed Position (degrees) 20 Document 08/17/16 13:04 AYW (Rec: 08/17/16 14:05 AYW [id number]) Hourly Rounding Hourly Rounding Checked for Patient Positioning Patient Personal Items Placed Within Reach Checked Patient Pain Level Hourly Rounding Completed Yes Patient Sleeping Is family present? No Equipment in Use Specialty Bed Safety Call Light Within Reach Bed Position Low Fall Precautions Phone Within Reach Bed Brake On Side Rails Up X2 Are the Floors Free From Trip Hazards? Yes Is the Room Free From Clutter? Yes Turn and Postion Bedrest No Turn Q 2HR No Patient Position Back Head of Bed Position (degrees) 20 Document 08/17/16 15:00 VVP (Rec: 08/17/16 15:02 VVP 17) Hourly Rounding Hourly Rounding Completed Yes Patient Sleeping Is family present? No Safety Call Light Within Reach Bed Position Low Fall Precautions Phone Within Reach Bed Brake On Side Rails Up X2 Are the Floors Free From Trip Hazards? Yes Is the Room Free From Clutter? Yes Turn and Postion Bedrest No Turn Q 2HR No Document 08/17/16 15:36 AYW (Rec: 08/17/16 15:37 AYW 14) Hourly Rounding Hourly Rounding Checked for Patient Positioning Patient Personal Items Placed Within Reach Checked Patient Pain Level Hourly Rounding Completed Yes Patient Awake Is family present? No Equipment in Use Specialty Bed Safety Call Light Within Reach Bed Position Low Fall Precautions Phone Within Reach Bed Brake On Side Rails Up X2 Are the Floors Free From Trip Hazards? Yes Is the Room Free From Clutter? Yes Turn and Postion Bedrest No Turn Q 2HR No Patient Position Back Head of Bed Position (degrees) 20 Document 08/17/16 16:57 AYW (Rec: 08/17/16 17:02 AYW [id number]) Hourly Rounding Hourly Rounding Checked for Patient Positioning Patient Personal Items Placed Within Reach Checked Patient Pain Level Hourly Rounding Completed Yes Patient Awake Is family present? No Equipment in Use Specialty Bed Safety Call Light Within Reach Bed Position Low Fall Precautions Phone Within Reach Bed Brake On Side Rails Up X2 Are the Floors Free From Trip Hazards? Yes Is the Room Free From Clutter? Yes Turn and Postion Bedrest No Turn Q 2HR No Patient Position Back Head of Bed Position (degrees) 20 Document 08/17/16 17:00 AYW (Rec: 08/17/16 17:02 AYW [id number]) Hourly Rounding Hourly Rounding Checked for Patient Positioning Patient Personal Items Placed Within Reach Checked Patient Pain Level Hourly Rounding Completed Yes Patient Awake Is family present? No Equipment in Use Specialty Bed Safety Call Light Within Reach Bed Position Low Fall Precautions Phone Within Reach Bed Brake On Side Rails Up X2 Are the Floors Free From Trip Hazards? Yes Is the Room Free From Clutter? Yes Turn and Postion Bedrest No Turn Q 2HR No Patient Position Back Head of Bed Position (degrees) 20 Document 08/17/16 18:52 F (Rec: 08/17/16 19:15 F [id number]) Hourly Rounding Hourly Rounding Checked for Patient Positioning Patient Personal Items Placed Within Reach Checked Patient Pain Level Hourly Rounding Completed Yes Patient Awake Is family present? No Safety Call Light Within Reach Bed Position Low Fall Precautions Phone Within Reach Bed Brake On Side Rails Up X2 Are the Floors Free From Trip Hazards? Yes Is the Room Free From Clutter? Yes Turn and Postion Bedrest No Turn Q 2HR No Patient Position Back Positioning Aides Pillows Document 08/17/16 23:20 [facility] (Rec: 08/17/16 23:26 [facility] 2A17) Hourly Rounding Hourly Rounding Checked for Patient Positioning Patient Personal Items Placed Within Reach Checked Patient Pain Level Hourly Rounding Completed Yes Patient Sleeping Is family present? No Safety Call Light Within Reach Bed Position Low Fall Precautions Phone Within Reach Bed Brake On Side Rails Up X2 Are the Floors Free From Trip Hazards? Yes Is the Room Free From Clutter? Yes Turn and Postion Bedrest No Turn Q 2HR No Patient Position Back Positioning Aides Pillows Document 08/18/16 04:18 [facility] (Rec: 08/18/16 04:31 [facility] [id number]) Hourly Rounding Hourly Rounding Checked for Patient Positioning Patient Personal Items Placed Within Reach Checked Patient Pain Level Hourly Rounding Completed Yes Patient Resting With Eyes Closed Is family present? Yes Safety Call Light Within Reach Bed Position Low Fall Precautions Phone Within Reach Bed Brake On Side Rails Up X2 Are the Floors Free From Trip Hazards? Yes Is the Room Free From Clutter? Yes Turn and Postion Bedrest No Turn Q 2HR No Patient Position Back Positioning Aides Pillows Document 08/18/16 07:29 KMB (Rec: 08/18/16 07:30 [facility] [id number]) Hourly Rounding Hourly Rounding Checked for Patient Positioning Patient Personal Items Placed Within Reach Hourly Rounding Completed Yes Patient Resting With Eyes Closed Is family present? Yes Equipment in Use Specialty Bed Safety Call Light Within Reach Bed Position Low Fall Precautions Phone Within Reach Bed Brake On Side Rails Up X2 Are the Floors Free From Trip Hazards? Yes Is the Room Free From Clutter? Yes Turn and Postion Bedrest No Turn Q 2HR No Patient Position Back Positioning Aides Pillows Document 08/18/16 08:57 KMB (Rec: 08/18/16 09:05 [facility] [id number]) Hourly Rounding Hourly Rounding Checked for Patient Positioning Patient Personal Items Placed Within Reach Checked Patient Pain Level Hourly Rounding Completed Yes Patient Awake Is family present? No Equipment in Use Specialty Bed Safety Call Light Within Reach Bed Position Low Fall Precautions Phone Within Reach Bed Brake On Side Rails Up X2 Are the Floors Free From Trip Hazards? Yes Is the Room Free From Clutter? Yes Turn and Postion Bedrest No Turn Q 2HR No Patient Position Back Positioning Aides Pillows Document 08/18/16 09:35 KMB (Rec: 08/18/16 10:26 [facility] 14) Hourly Rounding Hourly Rounding Checked for Patient Positioning Patient Personal Items Placed Within Reach Checked Patient Pain Level Hourly Rounding Completed Yes Patient Resting With Eyes Closed Is family present? No Equipment in Use Specialty Bed Safety Call Light Within Reach Bed Exit Alarm Fall Precautions Phone Within Reach Bed Brake On Side Rails Up X2 Are the Floors Free From Trip Hazards? Yes Is the Room Free From Clutter? Yes Turn and Postion Bedrest No Turn Q 2HR No Patient Position Right Side Document 08/18/16 10:00 VVP (Rec: 08/18/16 10:25 VVP [id number]) Hourly Rounding Hourly Rounding Completed Yes Patient Sleeping Is family present? No Safety Call Light Within Reach Bed Exit Alarm Fall Precautions Phone Within Reach Bed Brake On Side Rails Up X2 Are the Floors Free From Trip Hazards? Yes Is the Room Free From Clutter? Yes Turn and Postion Bedrest No Turn Q 2HR No Document 08/18/16 10:26 KMB (Rec: 08/18/16 10:26 [facility] [id number]) Hourly Rounding Hourly Rounding Completed Yes Patient Awake Is family present? No Equipment in Use Specialty Bed Safety Call Light Within Reach Bed Exit Alarm Fall Precautions Phone Within Reach Bed Brake On Side Rails Up X2 Are the Floors Free From Trip Hazards? Yes Is the Room Free From Clutter? Yes Turn and Postion Bedrest No Turn Q 2HR No Patient Position Right Side Document 08/18/16 11:14 KMB (Rec: 08/18/16 11:16 [facility] [id number]) Hourly Rounding Hourly Rounding Checked for Patient Positioning Patient Personal Items Placed Within Reach Checked Patient Pain Level Hourly Rounding Completed Yes Patient Awake Is family present? No Comment PCR rounding Equipment in Use Specialty Bed Safety Call Light Within Reach Bed Exit Alarm Fall Precautions Phone Within Reach Bed Brake On Side Rails Up X2 Are the Floors Free From Trip Hazards? Yes Is the Room Free From Clutter? Yes Turn and Postion Bedrest No Turn Q 2HR No Patient Position Right Side Document 08/18/16 12:28 KMB (Rec: 08/18/16 12:28 KMB 14) Hourly Rounding Hourly Rounding Checked for Patient Positioning Patient Personal Items Placed Within Reach Checked Patient Pain Level Hourly Rounding Completed Yes Patient Resting With Eyes Closed Is family present? No Equipment in Use Specialty Bed Safety Call Light Within Reach Bed Exit Alarm Fall Precautions Phone Within Reach Bed Brake On Side Rails Up X2 Are the Floors Free From Trip Hazards? Yes Is the Room Free From Clutter? Yes Turn and Postion Bedrest No Turn Q 2HR No Patient Position Back Document 08/18/16 13:55 KMB (Rec: 08/18/16 14:57 KMB 14) Hourly Rounding Hourly Rounding Checked for Patient Positioning Patient Personal Items Placed Within Reach Checked Patient Pain Level Hourly Rounding Completed Yes Patient Resting With Eyes Closed Is family present? No Equipment in Use Specialty Bed Safety Call Light Within Reach Bed Exit Alarm Fall Precautions Phone Within Reach Bed Brake On Side Rails Up X2 Are the Floors Free From Trip Hazards? Yes Is the Room Free From Clutter? Yes Turn and Postion Bedrest No Turn Q 2HR No Patient Position Back Document 08/18/16 14:40 KMB (Rec: 08/18/16 15:26 K[facility] [id number]) Hourly Rounding Hourly Rounding Checked for Patient Positioning Patient Personal Items Placed Within Reach Checked Patient Pain Level Hourly Rounding Completed Yes Patient Resting With Eyes Closed Is family present? No Equipment in Use Specialty Bed Safety Call Light Within Reach Bed Exit Alarm Fall Precautions Phone Within Reach Bed Brake On Side Rails Up X2 Are the Floors Free From Trip Hazards? Yes Is the Room Free From Clutter? Yes Turn and Postion Bedrest No Turn Q 2HR No Patient Position Back Document 08/18/16 15:15 KMB (Rec: 08/18/16 16:12 KMB [facility]) Hourly Rounding Hourly Rounding Checked for Patient Positioning Patient Personal Items Placed Within Reach Checked Patient Pain Level Hourly Rounding Completed Yes Patient Resting With Eyes Closed Is family present? No Equipment in Use Specialty Bed Safety Call Light Within Reach Bed Exit Alarm Fall Precautions Phone Within Reach Bed Brake On Side Rails Up X2 Are the Floors Free From Trip Hazards? Yes Is the Room Free From Clutter? Yes Turn and Postion Bedrest No Turn Q 2HR No Patient Position Back Document 08/18/16 16:00 KMB (Rec: 08/18/16 18:23 KMB [facility]) Hourly Rounding Hourly Rounding Checked for Patient Positioning Patient Personal Items Placed Within Reach Checked Patient Pain Level Hourly Rounding Completed Yes Patient Awake Is family present? No Equipment in Use Specialty Bed Safety Call Light Within Reach Bed Exit Alarm Fall Precautions Phone Within Reach Bed Brake On Side Rails Up X2 Are the Floors Free From Trip Hazards? Yes Is the Room Free From Clutter? Yes Turn and Postion Bedrest No Turn Q 2HR No Patient Position Back Document 08/18/16 18:00 JKB (Rec: 08/18/16 19:56 JKB [facility]) Hourly Rounding Hourly Rounding Checked for Patient Positioning Patient Personal Items Placed Within Reach Checked Patient Pain Level Hourly Rounding Completed Yes Patient Awake Is family present? No Comment abdomen Equipment in Use Specialty Bed Safety Call Light Within Reach Bed Exit Alarm Fall Precautions Phone Within Reach Bed Brake On Side Rails Up X2 Are the Floors Free From Trip Hazards? Yes Is the Room Free From Clutter? Yes Turn and Postion Bedrest No Turn Q 2HR No Patient Position Back Head of Bed Position (degrees) 30 Document 08/18/16 22:36 DKH (Rec: 08/18/16 22:37 DKH [id number]) Hourly Rounding Hourly Rounding Checked for Patient Positioning Hourly Rounding Completed Yes Patient Resting With Eyes Closed Is family present? No Safety Call Light Within Reach Bed Position Low Phone Within Reach Bed Brake On Side Rails Up X2 Are the Floors Free From Trip Hazards? Yes Is the Room Free From Clutter? Yes Turn and Postion Bedrest No Turn Q 2HR No Patient Position Right Side Document 08/19/16 06:00 ARB (Rec: 08/19/16 08:01 ARB [facility]) Hourly Rounding Hourly Rounding Checked for Patient Positioning Patient Personal Items Placed Within Reach Hourly Rounding Completed Yes Patient Sleeping Is family present? No Safety Call Light Within Reach Bed Position Low Phone Within Reach Bed Brake On Side Rails Up X2 Are the Floors Free From Trip Hazards? Yes Is the Room Free From Clutter? Yes Turn and Postion Bedrest No Turn Q 2HR No Patient Position Back Document 08/19/16 08:20 SLT (Rec: 08/19/16 09:46 SLT [id number] Hourly Rounding Hourly Rounding Checked for Patient Positioning Patient Personal Items Placed Within Reach Checked Patient Pain Level Hourly Rounding Completed Yes Patient Awake Is family present? No Equipment in Use Specialty Bed Safety Call Light Within Reach Bed Position Low Fall Precautions Phone Within Reach Bed Brake On Side Rails Up X2 Are the Floors Free From Trip Hazards? Yes Is the Room Free From Clutter? Yes Turn and Postion Bedrest No Turn Q 2HR No Patient Position Sitting on Side of Bed Document 08/19/16 10:00 ARB (Rec: 08/19/16 11:41 ARB [facility]) Hourly Rounding Hourly Rounding Checked for Patient Positioning Patient Personal Items Placed Within Reach Hourly Rounding Completed Yes Patient Sleeping Is family present? No Safety Call Light Within Reach Bed Position Low Phone Within Reach Bed Brake On Side Rails Up X2 Are the Floors Free From Trip Hazards? Yes Is the Room Free From Clutter? Yes Turn and Postion Bedrest No Turn Q 2HR No Patient Position Back Document 08/19/16 11:49 SLT (Rec: 08/19/16 12:30 SLT [facility] [id number] Hourly Rounding Hourly Rounding Checked for Patient Positioning Patient Personal Items Placed Within Reach Checked Patient Pain Level Hourly Rounding Completed Yes Patient Awake Is family present? No Equipment in Use Specialty Bed Safety Call Light Within Reach Bed Position Low Fall Precautions Phone Within Reach Bed Brake On Side Rails Up X2 Are the Floors Free From Trip Hazards? Yes Is the Room Free From Clutter? Yes Turn and Postion Bedrest No Turn Q 2HR No Patient Position Back Document 08/19/16 12:00 ARB (Rec: 08/19/16 14:36 ARB [facility] [id number]) Hourly Rounding Hourly Rounding Checked for Patient Positioning Patient Personal Items Placed Within Reach Hourly Rounding Completed Yes Patient Sleeping Is family present? No Safety Call Light Within Reach Bed Position Low Phone Within Reach Bed Brake On Side Rails Up X2 Are the Floors Free From Trip Hazards? Yes Is the Room Free From Clutter? Yes Turn and Postion Bedrest No Turn Q 2HR No Patient Position Back Document 08/19/16 14:50 SLT (Rec: 08/19/16 14:51 SLT [facility] [id number]) Hourly Rounding Hourly Rounding Checked for Patient Positioning Patient Personal Items Placed Within Reach Checked Patient Pain Level Hourly Rounding Completed Yes Patient Awake Is family present? No Equipment in Use Specialty Bed Safety Call Light Within Reach Bed Position Low Fall Precautions Phone Within Reach Bed Brake On Side Rails Up X2 Are the Floors Free From Trip Hazards? Yes Is the Room Free From Clutter? Yes Turn and Postion Bedrest No Turn Q 2HR No Patient Position Sitting up in Bed Perineal care Start: 08/11/16 09: 07 Freq: Status: Complete Document 08/13/16 15:28 RD (Rec: 08/13/16 15:29 [id number] Document 08/17/16 18:00 AYW (Rec: 08/17/16 18:04 AYW [facility] [id number]) RT Continuous Pulse Oximetry Start: 08/10/16 23: 50 Freq: CONT Status: Discharge Document 08/13/16 08:00 RD (Rec: 08/13/16 09:54 [facility] [id number]) Pulse Oximetry O2 Sat by Pulse Oximetry (95-100) 96 Oxygen Delivery Method Room Air Document 08/14/16 22:08 [facility] (Rec: 08/14/16 22:08 [id number] Pulse Oximetry O2 Sat by Pulse Oximetry (95-100) 99 Oxygen Delivery Method Nasal Cannula Oxygen Flow Rate (LPM) 2 Document 08/15/16 20:00 BEF (Rec: 08/15/16 22:40 BEF [id number]) Pulse Oximetry Oxygen Delivery Method Room Air RT PRN/Refused/Not Available Start: 08/11/16 22: 36 Freq: Status: Discharge Document 08/11/16 21:45 WRM (Rec: 08/11/16 22:37 WRM [id number]) PRN/Refused Refused Yes Comment Patient refused and stated " I don't not want a treatment" Document 08/12/16 03:37 WRM (Rec: 08/12/16 05:57 WRM [id number]) PRN/Refused Refused Yes Comment Patient refused tx. Document 08/13/16 10:59 JLC (Rec: 08/13/16 11:00 JLC [id number]) PRN/Refused Refused Yes Comment stated he will call for tx Document 08/13/16 23:04 KDR (Rec: 08/13/16 23:04 KDR [place] [id number]) PRN/Refused Refused Yes Comment pt is will call Document 08/14/16 04:51 KDR (Rec: 08/14/16 04:51 KDR [place] [id number]) PRN/Refused Refused Yes Comment pt is will call Document 08/14/16 22:06 PJS (Rec: 08/14/16 22:08 PJS [id number]) PRN/Refused Refused Yes Comment Pt states he does not want txs . Document 08/16/16 04:34 PJS (Rec: 08/16/16 04:34 PJS [id number]) PRN/Refused Refused Yes Comment Pt is a will call. Document 08/18/16 22:02 [facility] (Rec: 08/18/16 22:02 [facility] [id number]) PRN/Refused Refused Yes Comment Pt is a will call. Document 08/19/16 04:10 [facility] (Rec: 08/19/16 04:11 [facility] [id number]) PRN/Refused Refused Yes Comment Pt is a will call. RT Respiratory Medication Delivery Start: 08/11/16 06: 08 Freq: Status: Discharge Document 08/11/16 04:50 PJE (Rec: 08/11/16 06:10 PJE [id number]) Respiratory Therapy Pre Assessment SPO2 (95-100) 92 L Heart rate 76 Respiratory Rate 24 Oxygen Delivery Method Nasal Cannula O2 Flow Rate 3 Throughout Breath Sounds Diminished Treatment Modality Nebulizer Therapy Respiratory Medications Duoneb Medication Delivery Device Mask Treatment Tolerance Good Initial Aerosol/MDI/DPI* Yes Post RT Medication Delivery Post Heart rate 76 Post Respiratory Rate (breaths/min) 24 Throughout Post Breath Sounds Diminished Treatment Outcome No Change Comment no adverse reaction Document 08/11/16 10:54 [facility] (Rec: 08/11/16 10:55 [facility] [id number]) Respiratory Therapy Pre Assessment SPO2 (95-100) 96 Heart rate 76 Respiratory Rate 20 Oxygen Delivery Method Nasal Cannula O2 Flow Rate 3 Throughout Breath Sounds Diminished Treatment Modality Nebulizer Therapy Respiratory Medications Duoneb Medication Delivery Device Mask Treatment Tolerance Good Sub. Aerosol/MDI/DPI Treatment* Yes Post RT Medication Delivery Post Heart rate 76 Post Respiratory Rate (breaths/min) 24 Throughout Post Breath Sounds Diminished Treatment Outcome No Change Document 08/11/16 15:56 ANB (Rec: 08/11/16 15:58 ANB [id number]) Respiratory Therapy Pre Assessment SPO2 (95-100) 99 Heart rate 68 Respiratory Rate 16 Oxygen Delivery Method Nasal Cannula O2 Flow Rate 2 Throughout Breath Sounds Clear Diminished Treatment Modality Nebulizer Therapy Respiratory Medications Duoneb Medication Delivery Device Mask Treatment Tolerance Excellent Sub. Aerosol/MDI/DPI Treatment* Yes Respiratory Student completed [place] No Post RT Medication Delivery Post Heart rate 72 Post Respiratory Rate (breaths/min) 16 Throughout Post Breath Sounds Clear Diminished Treatment Outcome No Change Respiratory Therapy has recognized a No potential need for Home Oxygen Respiratory Therapy has recognized a No potential need for Home BIPAP/CPAP Comment NO COMPS RT has an order or consult Start: 08/10/16 23: 50 Freq: NOW Status: Complete Document 08/13/16 15:22 [facility] (Rec: 08/13/16 15:28 [facility] [id number]) Saline lock insertion/management Start: 08/10/16 20: 04 Freq: Status: Discharge Document 08/10/16 20:04 TAB (Rec: 08/10/16 21:18 TAB [id number]) IV Insertion/Site Assessment IV Attempt 2 Successful Successful Blood drawn and sent to Lab Yes Right Forearm IV Established 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 No Date of Insertion 08/10/16 Time of Insertion 21:15 Reason for IV Insertion Replace Lost Fluids Provide Access for IV Medication(s) IV Catheter Type Peripheral IV Gauge (gauge) 20 Site Observation Patent Erythema Dressing Applied Window Dressing Patient Tolerance Tolerated Well Sepsis Screening Start: 08/11/16 01: 11 Freq: Q8H Status: Discharge Document 08/11/16 01:30 CRS (Rec: 08/11/16 03:07 CRS [id number]) Sepsis Screening Sepsis Infection Criteria Present none Sepsis SIRS Criteria none Sepsis Screen No Definite Risk Sepsis Action Taken no action required Document 08/11/16 08:50 SLT (Rec: 08/11/16 11:04 SLT [id number]) Sepsis Screening Sepsis Infection Criteria Present none Sepsis SIRS Criteria none Sepsis Screen No Definite Risk Sepsis Action Taken no action required Document 08/11/16 16:07 SLT (Rec: 08/11/16 16:21 SLT [id number]) Sepsis Screening Sepsis Infection Criteria Present suspected infection Sepsis SIRS Criteria none Sepsis Screen No Definite Risk Sepsis Action Taken no action required Document 08/11/16 21:12 [id number] (Rec: 08/12/16 06:02 [id number]) Sepsis Screening Sepsis Infection Criteria Present suspected infection Sepsis SIRS Criteria none Sepsis Screen No Definite Risk Sepsis Action Taken no action required Document 08/12/16 06:04 [id number] (Rec: 08/12/16 06:07 [id number]) Sepsis Screening Sepsis Infection Criteria Present suspected infection Sepsis SIRS Criteria none Sepsis Screen No Definite Risk Sepsis Action Taken no action required Document 08/12/16 08:00 SLT (Rec: 08/12/16 09:34 SLT [id number]) Sepsis Screening Sepsis Infection Criteria Present suspected infection Sepsis SIRS Criteria HR > 90 bpm Sepsis Screen No Definite Risk Sepsis Action Taken no action required Document 08/12/16 16:00 SLT (Rec: 08/12/16 17:53 SLT [id number]) Sepsis Screening Sepsis Infection Criteria Present suspected infection Sepsis SIRS Criteria HR > 90 bpm Sepsis Screen No Definite Risk Sepsis Action Taken no action required Document 08/12/16 22:14 [id number] (Rec: 08/13/16 03:35 [id number]) Sepsis Screening Sepsis Infection Criteria Present suspected infection Sepsis SIRS Criteria HR > 90 bpm Sepsis Screen No Definite Risk Sepsis Action Taken no action required Document 08/13/16 04:48 [id number] (Rec: 08/13/16 07:59 [id number]) Sepsis Screening Sepsis Infection Criteria Present suspected infection Sepsis SIRS Criteria HR > 90 bpm Sepsis Screen No Definite Risk Sepsis Action Taken no action required Document 08/13/16 08:00 RDC (Rec: 08/13/16 09:54 RDC [id number]) Sepsis Screening Sepsis Infection Criteria Present suspected infection Sepsis SIRS Criteria HR > 90 bpm Sepsis Screen No Definite Risk Sepsis Action Taken no action required Document 08/13/16 15:22 RDC (Rec: 08/13/16 15:28 RDC [id number]) Sepsis Screening Sepsis Infection Criteria Present suspected infection Sepsis SIRS Criteria none Sepsis Screen No Definite Risk Sepsis Action Taken no action required Document 08/13/16 20:22 EJC (Rec: 08/13/16 20:25 EJC [id number]) Sepsis Screening Sepsis Infection Criteria Present none Sepsis SIRS Criteria none Sepsis Screen No Definite Risk Sepsis Action Taken no action required Document 08/14/16 04:19 EJC (Rec: 08/14/16 04:19 EJC [id number]) Sepsis Screening Sepsis Infection Criteria Present none Sepsis SIRS Criteria none Sepsis Screen No Definite Risk Sepsis Action Taken no action required Document 08/14/16 08:34 EPR (Rec: 08/14/16 08:38 EPR [id number]) Sepsis Screening Sepsis Infection Criteria Present none Sepsis SIRS Criteria none Sepsis Screen No Definite Risk Sepsis Action Taken no action required Document 08/14/16 15:43 EPR (Rec: 08/14/16 15:44 EPR [id number]) Sepsis Screening Sepsis Infection Criteria Present none Sepsis SIRS Criteria none Sepsis Screen No Definite Risk Sepsis Action Taken no action required Document 08/14/16 22:02 RDC (Rec: 08/14/16 22:05 RDC [id number]) Sepsis Screening Sepsis Infection Criteria Present none Sepsis SIRS Criteria none Sepsis Screen No Definite Risk Sepsis Action Taken no action required Document 08/15/16 08:49 EJC (Rec: 08/15/16 08:49 EJC [id number]) Sepsis Screening Sepsis Infection Criteria Present none Sepsis SIRS Criteria none Sepsis Screen No Definite Risk Sepsis Action Taken no action required Document 08/15/16 11:45 RDC (Rec: 08/15/16 13:42 RDC [id number]) Sepsis Screening Sepsis Infection Criteria Present none Sepsis SIRS Criteria WBC > 12k or < 4k or bands > 10% Sepsis Screen No Definite Risk Sepsis Action Taken no action required Document 08/15/16 20:00 BEF (Rec: 08/15/16 22:40 BEF [id number]) Sepsis Screening Sepsis Infection Criteria Present none Sepsis SIRS Criteria HR > 90 bpm Sepsis Screen No Definite Risk Sepsis Action Taken no action required Document 08/16/16 05:03 BEF (Rec: 08/16/16 05:06 BEF [id number]) Sepsis Screening Sepsis Infection Criteria Present none Sepsis SIRS Criteria HR > 90 bpm Sepsis Screen No Definite Risk Sepsis Action Taken no action required Document 08/16/16 08:30 RDC (Rec: 08/16/16 10:06 RDC [id number]) Sepsis Screening Sepsis Infection Criteria Present none Sepsis SIRS Criteria HR > 90 bpm Sepsis Screen No Definite Risk Sepsis Action Taken no action required Document 08/16/16 17:00 RDC (Rec: 08/16/16 18:11 RDC [id number]) Sepsis Screening Sepsis Infection Criteria Present none Sepsis SIRS Criteria HR > 90 bpm Sepsis Screen No Definite Risk Sepsis Action Taken no action required Document 08/16/16 21:40 BEF (Rec: 08/17/16 00:18 BEF [id number]) Sepsis Screening Sepsis Infection Criteria Present none Sepsis SIRS Criteria WBC > 12k or < 4k or bands > 10% HR > 90 bpm Sepsis Screen No Definite Risk Sepsis Action Taken no action required Document 08/17/16 04:41 BEF (Rec: 08/17/16 04:44 BEF [id number]) Sepsis Screening Sepsis Infection Criteria Present none Sepsis SIRS Criteria WBC > 12k or < 4k or bands > 10% HR > 90 bpm Sepsis Screen No Definite Risk Sepsis Action Taken no action required Document 08/17/16 09:10 AYW (Rec: 08/17/16 10:06 AYW [id number]) Sepsis Screening Sepsis Infection Criteria Present none Sepsis SIRS Criteria none Sepsis Screen No Definite Risk Sepsis Action Taken no action required Document 08/17/16 16:57 AYW (Rec: 08/17/16 17:02 AYW [id number]) Sepsis Screening Sepsis Infection Criteria Present none Sepsis SIRS Criteria HR > 90 bpm Sepsis Screen No Definite Risk Sepsis Action Taken no action required Document 08/17/16 20:32 KMA (Rec: 08/17/16 21:05 KMA [id number]) Sepsis Screening Sepsis Infection Criteria Present suspected infection Sepsis SIRS Criteria WBC > 12k or < 4k or bands > 10% HR > 90 bpm Sepsis Organ Dysfunction Criteria none Present Sepsis Screen Sepsis Risk Sepsis Action Taken provider notified Sepsis Name of Provider Notified John Gamez Document 08/18/16 00:35 KMA (Rec: 08/18/16 00:39 KMA [id number]) Sepsis Screening Sepsis Infection Criteria Present none Sepsis SIRS Criteria WBC > 12k or < 4k or bands > 10% HR > 90 bpm Sepsis Organ Dysfunction Criteria none Present Sepsis Screen No Definite Risk Sepsis Action Taken no action required Document 08/18/16 08:57 KMB (Rec: 08/18/16 09:05 KMB [id number]) Sepsis Screening Sepsis Infection Criteria Present none Sepsis SIRS Criteria HR > 90 bpm Sepsis Screen No Definite Risk Sepsis Action Taken no action required Sepsis Name of Provider Notified John Gamez Document 08/18/16 16:00 KMB (Rec: 08/18/16 18:23 KMB [id number]) Sepsis Screening Sepsis Infection Criteria Present none Sepsis SIRS Criteria HR > 90 bpm Sepsis Screen No Definite Risk Sepsis Action Taken no action required Sepsis Name of Provider Notified John Gamez Document 08/18/16 19:55 JKB (Rec: 08/18/16 22:20 JKB [id number]) Sepsis Screening Sepsis Infection Criteria Present none Sepsis SIRS Criteria HR > 90 bpm Sepsis Screen No Definite Risk Sepsis Action Taken no action required Document 08/18/16 23:40 JKB (Rec: 08/19/16 08:19 JKB [id number]) Sepsis Screening Sepsis Infection Criteria Present none Sepsis SIRS Criteria HR > 90 bpm Sepsis Screen No Definite Risk Sepsis Action Taken no action required Document 08/19/16 05:10 JKB (Rec: 08/19/16 08:20 JKB [id number]) Sepsis Screening Sepsis Infection Criteria Present none Sepsis SIRS Criteria HR > 90 bpm Sepsis Screen No Definite Risk Sepsis Action Taken no action required Document 08/19/16 08:20 SLT (Rec: 08/19/16 09:46 SLT [id number]) Sepsis Screening Sepsis Infection Criteria Present none Sepsis SIRS Criteria HR > 90 bpm Sepsis Screen No Definite Risk Sepsis Action Taken no action required Skin Risk Assessment Scale Start: 08/11/16 01: 11 Freq: Q12H Status: Discharge Document 08/11/16 01:30 CRS (Rec: 08/11/16 03:07 CRS [id number]) Skin Risk Assessment Scale Moisture Risk Occasionally Moist Sensory Perception No Impairment Activity Risk Walks Occasionally Mobility Risk Slightly Limited Nutrition Risk Excellent Friction & Shear Risk No Apparent Problem Skin Risk Total Score (points) 20 Document 08/11/16 08:50 SLT (Rec: 08/11/16 11:04 SLT [id number]) Skin Risk Assessment Scale Moisture Risk Occasionally Moist Sensory Perception No Impairment Activity Risk Walks Occasionally Mobility Risk Slightly Limited Nutrition Risk Excellent Friction & Shear Risk No Apparent Problem Skin Risk Total Score (points) 20 Document 08/11/16 21:12 [id number] (Rec: 08/12/16 06:02 [id number]) Skin Risk Assessment Scale Moisture Risk Occasionally Moist Sensory Perception No Impairment Activity Risk Walks Occasionally Mobility Risk Slightly Limited Nutrition Risk Excellent Friction & Shear Risk No Apparent Problem Skin Risk Total Score (points) 20 Document 08/12/16 08:00 SLT (Rec: 08/12/16 09:34 SLT [id number]) Skin Risk Assessment Scale Moisture Risk Occasionally Moist Sensory Perception No Impairment Activity Risk Walks Occasionally Mobility Risk Slightly Limited Nutrition Risk Excellent Friction & Shear Risk No Apparent Problem Skin Risk Total Score (points) 20 Document 08/12/16 22:14 [id number] (Rec: 08/13/16 03:35 [id number]) Skin Risk Assessment Scale Moisture Risk Occasionally Moist Sensory Perception No Impairment Activity Risk Walks Occasionally Mobility Risk Slightly Limited Nutrition Risk Excellent Friction & Shear Risk No Apparent Problem Skin Risk Total Score (points) 20 Document 08/13/16 09:55 RDC (Rec: 08/13/16 09:55 RDC [id number]) Skin Risk Assessment Scale Moisture Risk Occasionally Moist Sensory Perception No Impairment Activity Risk Walks Occasionally Mobility Risk Slightly Limited Nutrition Risk Excellent Friction & Shear Risk No Apparent Problem Skin Risk Total Score (points) 20 Document 08/13/16 20:22 EJC (Rec: 08/13/16 20:25 EJC [id number]) Skin Risk Assessment Scale Moisture Risk Occasionally Moist Sensory Perception No Impairment Activity Risk Walks Occasionally Mobility Risk Slightly Limited Nutrition Risk Excellent Friction & Shear Risk No Apparent Problem Skin Risk Total Score (points) 20 Document 08/14/16 08:34 EPR (Rec: 08/14/16 08:38 EPR [id number]) Skin Risk Assessment Scale Moisture Risk Occasionally Moist Sensory Perception No Impairment Activity Risk Walks Occasionally Mobility Risk Slightly Limited Nutrition Risk Excellent Friction & Shear Risk No Apparent Problem Skin Risk Total Score (points) 20 Document 08/14/16 22:02 RDC (Rec: 08/14/16 22:05 [id number]) Skin Risk Assessment Scale Moisture Risk Occasionally Moist Sensory Perception No Impairment Activity Risk Walks Occasionally Mobility Risk Slightly Limited Nutrition Risk Excellent Friction & Shear Risk No Apparent Problem Skin Risk Total Score (points) 20 Document 08/15/16 08:54 EJC (Rec: 08/15/16 08:56 EJC [id number]) Skin Risk Assessment Scale Moisture Risk Occasionally Moist Sensory Perception No Impairment Activity Risk Walks Occasionally Mobility Risk Slightly Limited Nutrition Risk Excellent Friction & Shear Risk No Apparent Problem Skin Risk Total Score (points) 20 Document 08/15/16 11:45 RDC (Rec: 08/15/16 13:42 [id number]) Skin Risk Assessment Scale Moisture Risk Occasionally Moist Sensory Perception No Impairment Activity Risk Walks Occasionally Mobility Risk Slightly Limited Nutrition Risk Excellent Friction & Shear Risk No Apparent Problem Skin Risk Total Score (points) 20 Document 08/15/16 20:00 BEF (Rec: 08/15/16 22:40 BEF [id number]) Skin Risk Assessment Scale Moisture Risk Occasionally Moist Sensory Perception No Impairment Activity Risk Walks Occasionally Mobility Risk Slightly Limited Nutrition Risk Adequate Friction & Shear Risk No Apparent Problem Skin Risk Total Score (points) 19 Document 08/16/16 08:30 RDC (Rec: 08/16/16 10:06 RDC [id number]) Skin Risk Assessment Scale Moisture Risk Occasionally Moist Sensory Perception No Impairment Activity Risk Walks Occasionally Mobility Risk Slightly Limited Nutrition Risk Adequate Friction & Shear Risk No Apparent Problem Skin Risk Total Score (points) 19 Document 08/16/16 21:40 BEF (Rec: 08/17/16 00:18 BEF [id number]) Skin Risk Assessment Scale Moisture Risk Occasionally Moist Sensory Perception No Impairment Activity Risk Walks Occasionally Mobility Risk Slightly Limited Nutrition Risk Adequate Friction & Shear Risk No Apparent Problem Skin Risk Total Score (points) 19 Document 08/17/16 09:10 AYW (Rec: 08/17/16 10:06 AYW [id number]) Skin Risk Assessment Scale Moisture Risk Occasionally Moist Sensory Perception No Impairment Activity Risk Walks Occasionally Mobility Risk Slightly Limited Nutrition Risk Adequate Friction & Shear Risk No Apparent Problem Skin Risk Total Score (points) 19 Document 08/18/16 06:19 KMA (Rec: 08/18/16 06:23 KMA [id number]) Skin Risk Assessment Scale Moisture Risk Rarely Moist Sensory Perception No Impairment Activity Risk Walks Occasionally Mobility Risk Slightly Limited Nutrition Risk Adequate Friction & Shear Risk No Apparent Problem Skin Risk Total Score (points) 20 Document 08/18/16 08:57 KMB (Rec: 08/18/16 09:05 KMB [id number]) Skin Risk Assessment Scale Moisture Risk Rarely Moist Sensory Perception No Impairment Activity Risk Walks Occasionally Mobility Risk Slightly Limited Nutrition Risk Adequate Friction & Shear Risk No Apparent Problem Skin Risk Total Score (points) 20 Document 08/18/16 18:00 JKB (Rec: 08/18/16 19:56 JKB [id number]) Skin Risk Assessment Scale Moisture Risk Rarely Moist Sensory Perception No Impairment Activity Risk Walks Occasionally Mobility Risk Slightly Limited Nutrition Risk Adequate Friction & Shear Risk No Apparent Problem Skin Risk Total Score (points) 20 Document 08/19/16 08:20 SLT (Rec: 08/19/16 09:46 SLT [id number]) Skin Risk Assessment Scale Moisture Risk Occasionally Moist Sensory Perception No Impairment Activity Risk Walks Occasionally Mobility Risk Slightly Limited Nutrition Risk Adequate Friction & Shear Risk No Apparent Problem Skin Risk Total Score (points) 19 Social Work Discharge Assessment Start: 08/20/16 12: 19 Freq: Status: Complete Document 08/20/16 12:19 RI (Rec: 08/20/16 12:22 RI [id number]) Social Work Discharge Assessment Discharge Home Additional Services Discharge Comment Patient dc home with referral to [facility] for [facility] for PT /OT Home Health Referral Type New Referral Narrative Patient discharged to snf with referral to [facility] for HH PT/OT System Review Start: 08/11/16 01: 11 Freq: Q8H Status: Discharge Document 08/11/16 01:30 CRS (Rec: 08/11/16 03:07 CRS [id number]) Pain Assessment Pain Present Reports Pain Abdomen Pain Intensity 8 Description Ache Scale Used Numeric (1 - 10) Pain Intervention Medication Neurological Assessment Eye Opening Spontaneous Motor Obeys Commands Verbal Oriented Coma Scale Total 15 Neurologic Status Alert Patient Orientation Person Place Time Arousable To Name Speech Pattern Normal tone Appropriate Slowed Patient Behavior Cooperative Fatigued Mood Description Calm Relaxed Fur Clipper Strength Equal Push/Pull Equal Numbness/Tingling No Facial Symmetry Symmetrical Cardiovascular Assessment Signs and Symptoms None Heart Sounds S1 & S2 Pulse Rhythm Regular Jugular Vein Distention None Capillary Refill < 3 Seconds Right Radial 2+ Left Radial 2+ Right Dorsalis Pedis 1+ Left Dorsalis Pedis 1+ Chest Pain Complaint No Has Confirmed Diagnosis of DVT, PE or No VTE VTE Prophylaxis PO Treatment Platelet Monitoring Mechanical Prophylaxis No Cardiac Monitoring Rhythm Sinus Rhythm Policy Loan Calculator Limits 130/50 Respiratory Assessment Respiratory Symptoms None Effort Normal for Patient Spontaneous Non-Labored Depth Normal Respiratory Pattern Regular Chest Shape Normal Expansion Symmetrical All Lung Wells Clear Oxygen Delivery Method Nasal Cannula Oxygen Flow Rate (LPM) 2 Cough Description None Sputum Amount None Respiratory Comment: no resp distress noted at this time. Gastrointestinal Assessment Abdomen Description Soft Large Round Tender 3 or more loose stools, in less than 24 No hours Nausea/Vomiting Presence None GI Comment: PRN medication given in ED All Four Quadrants Active Flatus Presence Present Genitourinary Assessment Genitourinary Symptoms None Bladder Pattern Normal Voiding Method Toilet Urinal Bladder Distention None Comment: no urine to assess at this time. UA needed. Integumentary Assessment Nail Bed Appearance Octavia Temperature Warm Moisture Dry Turgor Normal Color Pale All Pressure Points Assessed Yes Evidence of Incision/Wounds/Breakdown No Mucous membranes moist, pink and intact Yes Oral Cavity Normal Musculoskeletal Assessment Musculoskeletal Symptoms Generalized Weakness Musculoskeletal Comment: walks with cane at home. Document 08/11/16 08:50 SLT (Rec: 08/11/16 11:04 SLT [id number]) Pain Assessment Pain Present Reports Pain Abdomen Pain Intensity 7 Description Stabbing Scale Used Numeric (1 - 10) Pain Intervention Position Distraction Reduced Environmental Stimuli Darkened Room Comment pain medication on hold d/t low BP Neurological Assessment Eye Opening To Voice Motor Obeys Commands Verbal Oriented Coma Scale Total 14 Neurologic Status Responds to voice Patient Orientation Person Place Time Arousable To Name Speech Pattern Normal tone Appropriate Clear Slowed Patient Behavior Cooperative Fatigued Mood Description Calm Relaxed Fur Clipper Strength Equal Push/Pull Equal Numbness/Tingling No Facial Symmetry Symmetrical Cardiovascular Assessment Signs and Symptoms None Heart Sounds S1 & S2 Pulse Rhythm Regular Jugular Vein Distention None Capillary Refill < 3 Seconds Right Radial 2+ Left Radial 2+ Right Dorsalis Pedis 1+ Left Dorsalis Pedis 1+ Has Confirmed Diagnosis of DVT, PE or No VTE Mechanical Prophylaxis Yes Documentation of Mechanical Device Graduated compression elastic hosiery Mechanical Device Location Bilateral Lower Extremities Cardiac Monitoring Heart Rate 89 Monitoring Method Telemetry Rhythm Sinus Rhythm MS Interval 0.15 QRS Interval 0.06 QT Interval 0.31 Monitor Number [id number] Policy Loan Calculator Limits 130/50 Strip placed in Chart Yes Monitor History Reviewed Yes Memory Cleared No Respiratory Assessment Respiratory Symptoms None Effort Normal for Patient Spontaneous Non-Labored Depth Normal Respiratory Pattern Regular Chest Shape Normal Expansion Symmetrical All Lung Wells Clear Oxygen Delivery Method Nasal Cannula Oxygen Flow Rate (LPM) 3 Cough Description None Sputum Amount None Gastrointestinal Assessment Abdomen Description Soft Large Round Tender 3 or more loose stools, in less than 24 No hours Nausea/Vomiting Presence None All Four Quadrants Active Flatus Presence Present Genitourinary Assessment Genitourinary Symptoms None Bladder Pattern Normal Voiding Method Bedside Commode Urinal Bladder Distention None Suprapubic Tenderness with Palpation No Integumentary Assessment Nail Bed Appearance Octavia Temperature Warm Moisture Dry Turgor Normal Color Pale All Pressure Points Assessed Yes Evidence of Incision/Wounds/Breakdown No Mucous membranes moist, pink and intact Yes Oral Cavity Normal Missing Teeth Musculoskeletal Assessment Musculoskeletal Symptoms Generalized Weakness Document 08/11/16 16:07 SLT (Rec: 08/11/16 16:21 SLT [id number]) Pain Assessment Pain Present Reports Pain Abdomen Pain Intensity 7 Description Stabbing Scale Used Numeric (1 - 10) Pain Intervention Position Distraction Reduced Environmental Stimuli Darkened Room Neurological Assessment Eye Opening Spontaneous Motor Obeys Commands Verbal Oriented Coma Scale Total 15 Neurologic Status Alert Patient Orientation Person Place Time Arousable To Name Speech Pattern Normal tone Appropriate Clear Slowed Patient Behavior Cooperative Fatigued Mood Description Calm Relaxed Fur Clipper Strength Equal Push/Pull Equal Numbness/Tingling No Facial Symmetry Symmetrical Cardiovascular Assessment Signs and Symptoms None Heart Sounds S1 & S2 Pulse Rhythm Regular Jugular Vein Distention None Capillary Refill < 3 Seconds Right Radial 2+ Left Radial 2+ Right Dorsalis Pedis 1+ Left Dorsalis Pedis 1+ Has Confirmed Diagnosis of DVT, PE or No VTE VTE Prophylaxis PO Treatment Platelet Monitoring Mechanical Prophylaxis No Reason Mechanical Device Not Applied Refused by patient Cardiac Monitoring Heart Rate 95 Monitoring Method Telemetry Rhythm Sinus Rhythm MS Interval 0.18 QRS Interval 0.09 QT Interval 0.31 Monitor Number [id number] Policy Loan Calculator Limits 130/50 Strip placed in Chart Yes Monitor History Reviewed Yes Memory Cleared No Respiratory Assessment Respiratory Symptoms None Effort Normal for Patient Spontaneous Non-Labored Depth Normal Respiratory Pattern Regular Chest Shape Normal Expansion Symmetrical All Lung Wells Clear Oxygen Delivery Method Nasal Cannula Oxygen Flow Rate (LPM) 2 Cough Description None Sputum Amount None Gastrointestinal Assessment Abdomen Description Soft Large Round Tender 3 or more loose stools, in less than 24 No hours Nausea/Vomiting Presence None All Four Quadrants Active Flatus Presence Present Genitourinary Assessment Genitourinary Symptoms None Bladder Pattern Normal Voiding Method Bedside Commode Urinal Urine Appearance Clear Color Dark Yellow Bladder Distention None Suprapubic Tenderness with Palpation No Integumentary Assessment Nail Bed Appearance Octavia Temperature Warm Moisture Dry Turgor Normal Color Pale All Pressure Points Assessed No Evidence of Incision/Wounds/Breakdown No Mucous membranes moist, pink and intact Yes Oral Cavity Normal Missing Teeth Musculoskeletal Assessment Musculoskeletal Symptoms Generalized Weakness Document 08/11/16 21:12 [id number] (Rec: 08/12/16 06:02 [id number]) Pain Assessment Pain Present Reports Pain Abdomen Pain Intensity 9 Pain Intervention Position Distraction Reduced Environmental Stimuli Darkened Room Comment pt refused medication available Neurological Assessment Eye Opening Spontaneous Motor Obeys Commands Verbal Oriented Coma Scale Total 15 Neurologic Status Alert Patient Orientation Person Place Time Arousable To Name Speech Pattern Normal tone Appropriate Clear Slowed Delayed Patient Behavior Appropriate Fatigued Resistive to Care Mood Description Calm Relaxed Fur Clipper Strength Equal Push/Pull Equal Numbness/Tingling No Facial Symmetry Symmetrical Blink Present Cough/Gag Normal Neurological Comment: patient alert and oriented x3, pleasant mostly but is a little resistive to care, c/o of pain but refusing medication available and requesting IV pain medication, physician being made aware Cardiovascular Assessment Signs and Symptoms None Heart Sounds S1 & S2 Pulse Rhythm Regular Jugular Vein Distention None Capillary Refill < 3 Seconds Right Radial 2+ Left Radial 2+ Right Dorsalis Pedis 1+ Left Dorsalis Pedis 1+ Chest Pain Complaint No Has Confirmed Diagnosis of DVT, PE or No VTE VTE Prophylaxis PO Treatment Platelet Monitoring Mechanical Prophylaxis No Reason Mechanical Device Not Applied Refused by patient Cardiac Monitoring Heart Rate 90 Monitoring Method Telemetry Rhythm Sinus Rhythm MS Interval 0.12 QRS Interval 0.09 QT Interval 0.30 Monitor Number [id number] Policy Loan Calculator Limits 130/50 Strip placed in Chart Yes Monitor History Reviewed Yes Memory Cleared No Respiratory Assessment Respiratory Symptoms None Effort Normal for Patient Spontaneous Non-Labored Depth Normal Respiratory Pattern Regular Chest Shape Normal Expansion Symmetrical All Lung Wells Clear Oxygen Delivery Method Nasal Cannula Oxygen Flow Rate (LPM) 2 Cough Description None Sputum Amount None Respiratory Comment: no resp distress noted at this time. Gastrointestinal Assessment Abdomen Description Soft Large Round Tender 3 or more loose stools, in less than 24 No hours Nausea/Vomiting Presence None All Four Quadrants Active Flatus Presence Present Genitourinary Assessment Genitourinary Symptoms None Bladder Pattern Normal Voiding Method Indwelling Catheter Urine Appearance Clear Color Bright Yellow Bladder Distention None Suprapubic Tenderness with Palpation No Integumentary Assessment Nail Bed Appearance [place] Temperature Warm Moisture Dry Turgor Normal Color Pale All Pressure Points Assessed No Evidence of Incision/Wounds/Breakdown No Mucous membranes moist, pink and intact Yes Oral Cavity Normal Missing Teeth Musculoskeletal Assessment Musculoskeletal Symptoms Generalized Weakness Muscle Weakness Musculoskeletal Comment: walks with cane at home. Document 08/12/16 06:04 [id number] (Rec: 08/12/16 06:07 [id number] [facility]) Pain Assessment Pain Present Reports No Pain Neurological Assessment Eye Opening To Voice Motor Obeys Commands Verbal Oriented Coma Scale Total 14 Neurologic Status Responds to voice Patient Orientation Person Place Time Arousable To Name Speech Pattern Normal tone Appropriate Clear Slowed Delayed Patient Behavior Appropriate Fatigued Resistive to Care Mood Description Calm Relaxed Fur Clipper Strength Equal Push/Pull Equal Numbness/Tingling No Facial Symmetry Symmetrical Blink Present Cough/Gag Normal Neurological Comment: patient sleeping but is alert and oriented x3 but delayed in responses Cardiovascular Assessment Signs and Symptoms None Heart Sounds S1 & S2 Pulse Rhythm Regular Jugular Vein Distention None Capillary Refill < 3 Seconds Right Radial 2+ Left Radial 2+ Right Dorsalis Pedis 1+ Left Dorsalis Pedis 1+ Chest Pain Complaint No Has Confirmed Diagnosis of DVT, PE or No VTE VTE Prophylaxis PO Treatment Platelet Monitoring Mechanical Prophylaxis No Reason Mechanical Device Not Applied Refused by patient Cardiac Monitoring Heart Rate 95 Monitoring Method Telemetry Rhythm Sinus Rhythm MS Interval 0.13 QRS Interval 0.08 QT Interval 0.28 Monitor Number [id number] Policy Loan Calculator Limits 130/50 Strip placed in Chart Yes Monitor History Reviewed Yes Memory Cleared No Respiratory Assessment Respiratory Symptoms None Effort Normal for Patient Spontaneous Non-Labored Depth Normal Respiratory Pattern Regular Chest Shape Normal Expansion Symmetrical All Lung Wells Clear Oxygen Delivery Method Nasal Cannula Oxygen Flow Rate (LPM) 2 Cough Description None Sputum Amount None Respiratory Comment: no resp distress noted at this time. Gastrointestinal Assessment Abdomen Description Soft Large Round Tender 3 or more loose stools, in less than 24 No hours Nausea/Vomiting Presence None GI Comment: PRN medication given in ED All Four Quadrants Active Flatus Presence Present Genitourinary Assessment Genitourinary Symptoms None Bladder Pattern Normal Voiding Method Indwelling Catheter Urine Appearance Clear Color Bright Yellow Bladder Distention None Suprapubic Tenderness with Palpation No Comment: no urine to assess at this time. UA needed. Integumentary Assessment Nail Bed Appearance [place] Temperature Warm Moisture Dry Turgor Normal Color Pale All Pressure Points Assessed No Evidence of Incision/Wounds/Breakdown No Mucous membranes moist, pink and intact Yes Oral Cavity Normal Missing Teeth Musculoskeletal Assessment Musculoskeletal Symptoms Generalized Weakness Muscle Weakness Musculoskeletal Comment: walks with cane at home. Document 08/12/16 08:00 [facility] (Rec: 08/12/16 09:34 [facility] [id number]) Pain Assessment Pain Present Reports Pain Abdomen Pain Intensity 6 Description Stabbing Scale Used Numeric (1 - 10) Pain Intervention Position Distraction Reduced Environmental Stimuli Neurological Assessment Eye Opening Spontaneous Motor Obeys Commands Verbal Oriented Coma Scale Total 15 Neurologic Status Alert Patient Orientation Person Place Time Arousable To Name Speech Pattern Normal tone Appropriate Clear Slowed Delayed Patient Behavior Appropriate Fatigued Resistive to Care Mood Description Calm Flat Fur Clipper Strength Equal Push/Pull Equal Numbness/Tingling No Facial Symmetry Symmetrical Cardiovascular Assessment Signs and Symptoms None Heart Sounds S1 & S2 Pulse Rhythm Regular Jugular Vein Distention None Capillary Refill < 3 Seconds Right Radial 2+ Left Radial 2+ Right Dorsalis Pedis 1+ Left Dorsalis Pedis 1+ Has Confirmed Diagnosis of DVT, PE or No VTE VTE Prophylaxis PO Treatment Platelet Monitoring Mechanical Prophylaxis No Reason Mechanical Device Not Applied Refused by patient Cardiac Monitoring Heart Rate 103 Monitoring Method Telemetry Rhythm Sinus Tachycardia MS Interval 0.17 QRS Interval 0.08 QT Interval 0.30 Monitor Number [id number] Policy Loan Calculator Limits 130/50 Strip placed in Chart Yes Monitor History Reviewed Yes Memory Cleared No Respiratory Assessment Respiratory Symptoms None Effort Normal for Patient Spontaneous Non-Labored Depth Normal Respiratory Pattern Regular Chest Shape Normal Expansion Symmetrical All Lung Wells Clear Oxygen Delivery Method Nasal Cannula Oxygen Flow Rate (LPM) 2 Cough Description None Sputum Amount None Gastrointestinal Assessment Abdomen Description Soft Large Round Tender 3 or more loose stools, in less than 24 No hours Nausea/Vomiting Presence None All Four Quadrants Active Flatus Presence Present Genitourinary Assessment Genitourinary Symptoms None Bladder Pattern Normal Voiding Method Indwelling Catheter Urine Appearance Clear Color Dark Yellow Bladder Distention None Suprapubic Tenderness with Palpation No Integumentary Assessment Nail Bed Appearance [place] Temperature Warm Moisture Dry Turgor Normal Color Pale All Pressure Points Assessed Yes Evidence of Incision/Wounds/Breakdown No Mucous membranes moist, pink and intact Yes Oral Cavity Normal Missing Teeth Musculoskeletal Assessment Musculoskeletal Symptoms Generalized Weakness Document 08/12/16 16:00 [facility] (Rec: 08/12/16 17:53 [facility] [id number]) Pain Assessment Pain Present Reports No Pain Neurological Assessment Eye Opening Spontaneous Motor Obeys Commands Verbal Oriented Coma Scale Total 15 Neurologic Status Alert Patient Orientation Person Place Time Arousable To Name Speech Pattern Normal tone Appropriate Clear Slowed Delayed Patient Behavior Appropriate Fatigued Resistive to Care Mood Description Calm Flat Bilateral Pupil Reaction Reactive Pupil Size (mm) 3 Pupil [place] Equal Scleral Edema No Fur Clipper Strength Equal Push/Pull Equal Numbness/Tingling No Facial Symmetry Symmetrical Cardiovascular Assessment Signs and Symptoms None Heart Sounds S1 & S2 Pulse Rhythm Regular Jugular Vein Distention None Capillary Refill < 3 Seconds Right Radial 2+ Left Radial 2+ Right Dorsalis Pedis 1+ Left Dorsalis Pedis 1+ Has Confirmed Diagnosis of DVT, PE or No VTE VTE Prophylaxis PO Treatment Platelet Monitoring Mechanical Prophylaxis No Cardiac Monitoring Heart Rate 111 Monitoring Method Telemetry Rhythm Sinus Tachycardia MS Interval 0.16 QRS Interval 0.08 QT Interval 0.32 Monitor Number [id number] Policy Loan Calculator Limits 130/50 Strip placed in Chart Yes Monitor History Reviewed Yes Memory Cleared No Respiratory Assessment Respiratory Symptoms None Effort Normal for Patient Spontaneous Non-Labored Depth Normal Respiratory Pattern Regular Chest Shape Normal Expansion Symmetrical All Lung [place] Clear Oxygen Delivery Method Nasal Cannula Oxygen Flow Rate (LPM) 2 Cough Description None Sputum Amount None Gastrointestinal Assessment Abdomen Description Soft Large Round Tender 3 or more loose stools, in less than 24 No hours Nausea/Vomiting Presence None All Four Quadrants Active Flatus Presence Present Genitourinary Assessment Genitourinary Symptoms None Bladder Pattern Normal Voiding Method Indwelling Catheter Urine Appearance Clear Color Dark Yellow Bladder Distention None Suprapubic Tenderness with Palpation No Integumentary Assessment Nail Bed Appearance [place] Temperature Warm Moisture Dry Turgor Normal Color Pale All Pressure Points Assessed No Evidence of Incision/Wounds/Breakdown No Mucous membranes moist, pink and intact Yes Oral Cavity Normal Missing Teeth Musculoskeletal Assessment Musculoskeletal Symptoms Generalized Weakness Document 08/12/16 22:14 [id number] (Rec: 08/13/16 03:35 [id number]) Pain Assessment Pain Present Reports Pain Abdomen Pain Intensity 5 Description Ache Pain Intervention Position Distraction Reduced Environmental Stimuli Darkened Room Neurological Assessment Eye Opening Spontaneous Motor Obeys Commands Verbal Oriented Coma Scale Total 15 Neurologic Status Alert Patient Orientation Person Place Time Arousable To Name Speech Pattern Normal tone Appropriate Clear Slowed Delayed Patient Behavior Appropriate Fatigued Resistive to Care Mood Description Calm Flat Bilateral Pupil Reaction Reactive Pupil Size (mm) 3 Pupil [place] Equal Scleral Edema No Fur Clipper Strength Equal Push/Pull Equal Numbness/Tingling No Facial Symmetry Symmetrical Blink Present Cough/Gag Normal Neurological Comment: patient has delayed responses but is alert and oriented x3 Cardiovascular Assessment Signs and Symptoms None Heart Sounds S1 & S2 Pulse Rhythm Regular Jugular Vein Distention None Capillary Refill < 3 Seconds Right Radial 2+ Left Radial 2+ Right Dorsalis Pedis 1+ Left Dorsalis Pedis 1+ Chest Pain Complaint No Has Confirmed Diagnosis of DVT, PE or No VTE VTE Prophylaxis PO Treatment Platelet Monitoring Mechanical Prophylaxis No Reason Mechanical Device Not Applied Refused by patient Cardiac Monitoring Heart Rate 98 Monitoring Method Telemetry Rhythm Sinus Rhythm MS Interval 0.12 QRS Interval 0.06 QT Interval 0.26 Monitor Number [id number] Policy Loan Calculator Limits 130/50 Strip placed in Chart Yes Monitor History Reviewed Yes Memory Cleared No Respiratory Assessment Respiratory Symptoms None Effort Normal for Patient Spontaneous Non-Labored Depth Normal Respiratory Pattern Regular Chest Shape Normal Expansion Symmetrical All Lung [place] Clear Oxygen Delivery Method Nasal Cannula Oxygen Flow Rate (LPM) 2 Cough Description None Sputum Amount None Respiratory Comment: no resp distress noted at this time. Gastrointestinal Assessment Abdomen Description Soft Large Round Tender 3 or more loose stools, in less than 24 No hours Nausea/Vomiting Presence None All Four Quadrants Active Flatus Presence Present Genitourinary Assessment Genitourinary Symptoms None Bladder Pattern Normal Voiding Method Indwelling Catheter Urine Appearance Clear Color Dark Yellow Bladder Distention None Suprapubic Tenderness with Palpation No Integumentary Assessment Nail Bed Appearance [place] Temperature Warm Moisture Dry Turgor Normal Color Pale All Pressure Points Assessed No Evidence of Incision/Wounds/Breakdown No Mucous membranes moist, pink and intact Yes Oral Cavity Normal Missing Teeth Musculoskeletal Assessment Musculoskeletal Symptoms Generalized Weakness Muscle Weakness Musculoskeletal Comment: walks with cane at home. Document 08/13/16 04:48 [id number] (Rec: 08/13/16 07:59 [id number]) Pain Assessment Pain Present Allowed to Sleep Neurological Assessment Eye Opening To Voice Motor Obeys Commands Verbal Oriented Coma Scale Total 14 Neurologic Status Responds to voice Patient Orientation Person Place Time Arousable To Name Speech Pattern Normal tone Appropriate Clear Slowed Delayed Patient Behavior Appropriate Fatigued Asleep Mood Description Calm Flat Bilateral Pupil Reaction Reactive Pupil Size (mm) 3 Pupil [place] Equal Scleral Edema No Fur Clipper Strength Equal Push/Pull Equal Numbness/Tingling No Facial Symmetry Symmetrical Blink Present Cough/Gag Normal Neurological Comment: patient has delayed responses but is alert and oriented x3 when awoken from sleep Cardiovascular Assessment Signs and Symptoms None Heart Sounds S1 & S2 Pulse Rhythm Regular Jugular Vein Distention None Capillary Refill < 3 Seconds Right Radial 2+ Left Radial 2+ Right Dorsalis Pedis 1+ Left Dorsalis Pedis 1+ Chest Pain Complaint No Has Confirmed Diagnosis of DVT, PE or No VTE VTE Prophylaxis PO Treatment Platelet Monitoring Mechanical Prophylaxis No Reason Mechanical Device Not Applied Refused by patient Cardiac Monitoring Heart Rate 93 Monitoring Method Telemetry Rhythm Sinus Rhythm MS Interval 0.14 QRS Interval 0.07 QT Interval 0.29 Monitor Number [id number] Policy Loan Calculator Limits 130/50 Strip placed in Chart Yes Monitor History Reviewed Yes Memory Cleared No Respiratory Assessment Respiratory Symptoms None Effort Normal for Patient Spontaneous Non-Labored Depth Normal Respiratory Pattern Regular Chest Shape Normal Expansion Symmetrical All Lung [place] Clear Oxygen Delivery Method Nasal Cannula Oxygen Flow Rate (LPM) 2 Cough Description None Sputum Amount None Respiratory Comment: no resp distress noted at this time. Gastrointestinal Assessment Abdomen Description Soft Large Round Tender 3 or more loose stools, in less than 24 No hours Nausea/Vomiting Presence None All Four Quadrants Active Flatus Presence Present Genitourinary Assessment Genitourinary Symptoms None Bladder Pattern Normal Voiding Method Indwelling Catheter Bladder Distention None Suprapubic Tenderness with Palpation No Comment: no urine to assess at this time. UA needed. Integumentary Assessment Nail Bed Appearance [place] Temperature Warm Moisture Dry Turgor Normal Color Pale All Pressure Points Assessed No Evidence of Incision/Wounds/Breakdown No Mucous membranes moist, pink and intact Yes Oral Cavity Normal Missing Teeth Musculoskeletal Assessment Musculoskeletal Symptoms Generalized Weakness Muscle Weakness Musculoskeletal Comment: walks with cane at home. Document 08/13/16 08:00 [facility] (Rec: 08/13/16 09:54 [facility] [id number]) Pain Assessment Pain Present Reports Pain Abdomen Pain Intensity 7 Description Ache Scale Used Numeric (1 - 10) Pain Intervention Medication Neurological Assessment Eye Opening Spontaneous Motor Obeys Commands Verbal Oriented Coma Scale Total 15 Neurologic Status Alert Patient Orientation Person Place Time Arousable To Name Speech Pattern Normal tone Appropriate Clear Slowed Delayed Patient Behavior Appropriate Cooperative Mood Description Calm Flat Bilateral Pupil Reaction Reactive Pupil Size (mm) 3 Pupil [place] Equal Scleral Edema No Fur Clipper Strength Equal Push/Pull Equal Numbness/Tingling No Facial Symmetry Symmetrical Cardiovascular Assessment Signs and Symptoms None Heart Sounds S1 & S2 Pulse Rhythm Regular Jugular Vein Distention None Capillary Refill < 3 Seconds Circulatory Tenderness Description None Right Radial 2+ Left Radial 2+ Right Dorsalis Pedis 1+ Left Dorsalis Pedis 1+ Has Confirmed Diagnosis of DVT, PE or No VTE VTE Prophylaxis Platelet Monitoring Mechanical Prophylaxis No Cardiac Monitoring Heart Rate 112 Monitoring Method Telemetry Rhythm Sinus Tachycardia MS Interval 0.18 QRS Interval 0.04 QT Interval 0.32 Monitor Number [id number] Policy Loan Calculator Limits 130/50 Strip placed in Chart Yes Monitor History Reviewed Yes Memory Cleared No Respiratory Assessment Respiratory Symptoms None Effort Normal for Patient Spontaneous Non-Labored Depth Normal Respiratory Pattern Regular Chest Shape Normal Expansion Symmetrical All Lung [place] Clear Oxygen Delivery Method Nasal Cannula Oxygen Flow Rate (LPM) 2 Cough Description None Sputum Amount None Gastrointestinal Assessment Abdomen Description Soft Large Round Tender 3 or more loose stools, in less than 24 No hours Nausea/Vomiting Presence None All Four Quadrants Active Flatus Presence Present Genitourinary Assessment Genitourinary Symptoms None Bladder Pattern Normal Voiding Method Urinal Urine Appearance Clear Color Straw Bladder Distention None Suprapubic Tenderness with Palpation No Integumentary Assessment Nail Bed Appearance [place] Temperature Warm Moisture Dry Turgor Normal Color Pale All Pressure Points Assessed Yes Evidence of Incision/Wounds/Breakdown No Mucous membranes moist, pink and intact Yes Oral Cavity Normal Missing Teeth Musculoskeletal Assessment Musculoskeletal Symptoms Generalized Weakness Muscle Weakness Document 08/13/16 15:22 [facility] (Rec: 08/13/16 15:28 [facility] [id number]) Pain Assessment Pain Present Reports No Pain Neurological Assessment Eye Opening Spontaneous Motor Obeys Commands Verbal Oriented Coma Scale Total 15 Neurologic Status Alert Patient Orientation Person Place Time Arousable To Name Speech Pattern Normal tone Appropriate Clear Slowed Delayed Patient Behavior Appropriate Cooperative Mood Description Calm Flat Bilateral Pupil Reaction Reactive Pupil Size (mm) 3 Pupil [place] Equal Scleral Edema No Fur Clipper Strength Equal Push/Pull Equal Numbness/Tingling No Facial Symmetry Symmetrical Cardiovascular Assessment Signs and Symptoms None Heart Sounds S1 & S2 Pulse Rhythm Regular Jugular Vein Distention None Capillary Refill < 3 Seconds Circulatory Tenderness Description None Right Radial 2+ Left Radial 2+ Right Dorsalis Pedis 1+ Left Dorsalis Pedis 1+ Has Confirmed Diagnosis of DVT, PE or No VTE VTE Prophylaxis Platelet Monitoring Mechanical Prophylaxis No Cardiac Monitoring Heart Rate 97 Monitoring Method Telemetry Rhythm Sinus Rhythm MS Interval 0.21 QRS Interval 0.05 QT Interval 0.33 Monitor Number [id number] Strip placed in Chart Yes Memory Cleared No Respiratory Assessment Respiratory Symptoms None Effort Normal for Patient Spontaneous Non-Labored Depth Normal Respiratory Pattern Regular Chest Shape Normal Expansion Symmetrical All Lung Wells Clear Diminished Oxygen Delivery Method Room Air Cough Description None Sputum Amount None Gastrointestinal Assessment Abdomen Description Soft Large Round Tender 3 or more loose stools, in less than 24 No hours Nausea/Vomiting Presence None All Four Quadrants Active Flatus Presence Present Genitourinary Assessment Genitourinary Symptoms None Bladder Pattern Normal Voiding Method Urinal Urine Appearance Clear Color Straw Bladder Distention None Suprapubic Tenderness with Palpation No Integumentary Assessment Nail Bed Appearance [place] Temperature Warm Moisture Dry Turgor Normal Color Pale All Pressure Points Assessed Yes Evidence of Incision/Wounds/Breakdown No Mucous membranes moist, pink and intact Yes Oral Cavity Normal Missing Teeth Musculoskeletal Assessment Musculoskeletal Symptoms Generalized Weakness Muscle Weakness Document 08/13/16 20:27 [facility] (Rec: 08/13/16 20:32 [facility] [id number]) Pain Assessment Pain Present Reports Pain Right Knee Pain Intensity 7 Description Ache Chronic Scale Used Numeric (1 - 10) Pain Intervention Declined Comment pt just had PO medication and he said it helped. Neurological Assessment Eye Opening Spontaneous Motor Obeys Commands Verbal Oriented Coma Scale Total 15 Neurologic Status Alert Patient Orientation Person Place Time Arousable To Name Speech Pattern Normal rate Normal rhythm Normal tone Appropriate Clear Coherent Patient Behavior Appropriate Cooperative Mood Description Calm Relaxed Flat Bilateral Pupil Reaction Reactive Pupil Size (mm) 3 Pupil [place] Equal Scleral Edema No All Four Limbs Strength Normal for Patient Fur Clipper Strength Equal Push/Pull Equal Numbness/Tingling No Facial Symmetry Symmetrical Corneal Reflex Present Bilateral Blink Present Cough/Gag Normal Babinski Reflex Absent Bilateral Doll's-Eye Absent Cardiovascular Assessment Signs and Symptoms None Heart Sounds S1 & S2 Pulse Rhythm Regular Jugular Vein Distention None Capillary Refill < 3 Seconds Circulatory Tenderness Description None Right Radial 2+ Left Radial 2+ Right Dorsalis Pedis 2+ Left Dorsalis Pedis 2+ Has Confirmed Diagnosis of DVT, PE or No VTE VTE Prophylaxis PO Treatment Mechanical Prophylaxis No Cardiac Monitoring Heart Rate 107 Monitoring Method Telemetry Rhythm Sinus Tachycardia MS Interval 0.19 QRS Interval 0.06 QT Interval 0.29 Monitor Number [id number] Policy Loan Calculator Limits 120/40 Strip placed in Chart Yes Respiratory Assessment Respiratory Symptoms None Effort Normal for Patient Spontaneous Non-Labored Depth Normal Respiratory Pattern Regular Chest Shape Normal Expansion Symmetrical All Lung Wells Clear Oxygen Delivery Method Room Air Cough Description None Sputum Amount None Gastrointestinal Assessment Abdomen Description Soft Large Round Tender 3 or more loose stools, in less than 24 No hours Nausea/Vomiting Presence None All Four Quadrants Active Flatus Presence Present Genitourinary Assessment Genitourinary Symptoms None Bladder Pattern Urgency Incontinence Urge Voiding Method Urinal Brief Bladder Distention None Suprapubic Tenderness with Palpation No Comment: no urine to assess at this time. Integumentary Assessment Temperature Warm Moisture Dry Turgor Normal Color Normal All Pressure Points Assessed Yes Evidence of Incision/Wounds/Breakdown No Mucous membranes moist, pink and intact Yes Oral Cavity Normal Missing Teeth Musculoskeletal Assessment Musculoskeletal Symptoms Generalized Weakness Muscle Weakness Document 08/14/16 04:21 [facility] (Rec: 08/14/16 04:23 [facility] [id number]) Pain Assessment Pain Present Allowed to Sleep Neurological Assessment Neurological Comment: full neuro assessment not performed to allow for pt to rest. Cardiovascular Assessment Signs and Symptoms None Heart Sounds S1 & S2 Pulse Rhythm Regular Jugular Vein Distention None Capillary Refill < 3 Seconds Circulatory Tenderness Description None Right Radial 2+ Left Radial 2+ Right Dorsalis Pedis 2+ Left Dorsalis Pedis 2+ Has Confirmed Diagnosis of DVT, PE or No VTE VTE Prophylaxis PO Treatment Mechanical Prophylaxis No Cardiac Monitoring Heart Rate 96 Monitoring Method Telemetry Rhythm Sinus Rhythm MS Interval 0.19 QRS Interval 0.06 QT Interval 0.31 Monitor Number [id number] Policy Loan Calculator Limits 120/40 Strip placed in Chart Yes Respiratory Assessment Respiratory Symptoms None Effort Normal for Patient Spontaneous Non-Labored Depth Normal Respiratory Pattern Regular Chest Shape Normal Expansion Symmetrical All Lung [place] Clear Oxygen Delivery Method Room Air Cough Description None Sputum Amount None Gastrointestinal Assessment Abdomen Description Soft Large Round Tender 3 or more loose stools, in less than 24 No hours Nausea/Vomiting Presence None All Four Quadrants Active Flatus Presence Present Genitourinary Assessment Genitourinary Symptoms None Bladder Pattern Urgency Incontinence Urge Voiding Method Urinal Brief Bladder Distention None Suprapubic Tenderness with Palpation No Comment: no urine to assess at this time. Integumentary Assessment Temperature Warm Moisture Dry Turgor Normal Color Normal All Pressure Points Assessed Yes Evidence of Incision/Wounds/Breakdown No Mucous membranes moist, pink and intact Yes Oral Cavity Normal Missing Teeth Musculoskeletal Assessment Musculoskeletal Symptoms Generalized Weakness Muscle Weakness Document 08/14/16 08:34 [facility] (Rec: 08/14/16 08:38 [id number]) Pain Assessment Pain Present Reports No Pain Neurological Assessment Eye Opening Spontaneous Motor Obeys Commands Verbal Oriented Coma Scale Total 15 Neurologic Status Alert Patient Orientation Person Place Time Arousable To Name Speech Pattern Normal rate Normal rhythm Normal tone Appropriate Clear Coherent Patient Behavior Appropriate Cooperative Mood Description Calm Relaxed Flat Bilateral Pupil Reaction Reactive Pupil Size (mm) 3 Pupil [place] Equal Scleral Edema No All Four Limbs Strength Normal for Patient Fur Clipper Strength Equal Push/Pull Equal Numbness/Tingling No Facial Symmetry Symmetrical Cardiovascular Assessment Signs and Symptoms None Heart Sounds S1 & S2 Pulse Rhythm Regular Jugular Vein Distention None Capillary Refill < 3 Seconds Circulatory Tenderness Description None Right Radial 2+ Left Radial 2+ Right Dorsalis Pedis 2+ Left Dorsalis Pedis 2+ Chest Pain Complaint No Has Confirmed Diagnosis of DVT, PE or No VTE VTE Prophylaxis PO Treatment Mechanical Prophylaxis No Reason Mechanical Device Not Applied Refused by patient Cardiac Monitoring Monitoring Method Telemetry Rhythm Sinus Tachycardia Monitor Number [id number] Strip placed in Chart Yes Respiratory Assessment Respiratory Symptoms None Effort Normal for Patient Spontaneous Non-Labored Depth Normal Respiratory Pattern Regular Chest Shape Normal Expansion Symmetrical All Lung Wells Clear Oxygen Delivery Method Room Air Cough Description None Sputum Amount None Gastrointestinal Assessment Abdomen Description Soft Large Round Tender 3 or more loose stools, in less than 24 No hours Nausea/Vomiting Presence None All Four Quadrants Active Flatus Presence Present Genitourinary Assessment Genitourinary Symptoms None Bladder Pattern Urgency Incontinent Incontinence Urge Voiding Method Bedside Commode Urinal Brief Urine Appearance Clear Color Light Rae Metcalfe Bladder Distention None Suprapubic Tenderness with Palpation No Comment: no urine to assess at this time. Integumentary Assessment Nail Bed Appearance [place] Temperature Warm Moisture Dry Turgor Normal Color Normal All Pressure Points Assessed Yes Evidence of Incision/Wounds/Breakdown No Mucous membranes moist, pink and intact Yes Oral Cavity Normal Missing Teeth Musculoskeletal Assessment Musculoskeletal Symptoms Generalized Weakness Muscle Weakness Musculoskeletal Comment: walks with cane at home. Document 08/14/16 15:43 [facility] (Rec: 08/14/16 15:44 [facility] [id number]) Pain Assessment Pain Present Reports No Pain Neurological Assessment Eye Opening Spontaneous Motor Obeys Commands Verbal Oriented Coma Scale Total 15 Neurologic Status Alert Patient Orientation Person Place Time Arousable To Name Speech Pattern Normal rate Normal rhythm Normal tone Appropriate Clear Coherent Patient Behavior Appropriate Cooperative Mood Description Calm Relaxed Flat Bilateral Pupil Reaction Reactive Pupil Size (mm) 3 Pupil [place] Equal Scleral Edema No All Four Limbs Strength Normal for Patient Fur Clipper Strength Equal Push/Pull Equal Numbness/Tingling No Facial Symmetry Symmetrical Corneal Reflex Present Bilateral Blink Present Cough/Gag Normal Babinski Reflex Absent Bilateral Doll's-Eye Absent Cardiovascular Assessment Signs and Symptoms None Heart Sounds S1 & S2 Pulse Rhythm Regular Jugular Vein Distention None Capillary Refill < 3 Seconds Circulatory Tenderness Description None Right Radial 2+ Left Radial 2+ Right Dorsalis Pedis 2+ Left Dorsalis Pedis 2+ Chest Pain Complaint No Has Confirmed Diagnosis of DVT, PE or No VTE VTE Prophylaxis PO Treatment Mechanical Prophylaxis No Reason Mechanical Device Not Applied Refused by patient Cardiac Monitoring Heart Rate 111 Monitoring Method Telemetry Rhythm Sinus Tachycardia MS Interval 0.19 QRS Interval 0.07 QT Interval 0.27 Monitor Number [id number] Strip placed in Chart Yes Respiratory Assessment Respiratory Symptoms None Effort Normal for Patient Spontaneous Non-Labored Depth Normal Respiratory Pattern Regular Chest Shape Normal Expansion Symmetrical All Lung Wells Clear Oxygen Delivery Method Room Air Cough Description None Sputum Amount None Gastrointestinal Assessment Abdomen Description Soft Large Round Tender 3 or more loose stools, in less than 24 No hours Nausea/Vomiting Presence None All Four Quadrants Active Flatus Presence Present Genitourinary Assessment Genitourinary Symptoms None Bladder Pattern Urgency Incontinent Incontinence Urge Voiding Method Bedside Commode Urinal Brief Urine Appearance Clear Color Light Rae Metcalfe Bladder Distention None Suprapubic Tenderness with Palpation No Integumentary Assessment Nail Bed Appearance [place] Temperature Warm Moisture Dry Turgor Normal Color Normal All Pressure Points Assessed Yes Evidence of Incision/Wounds/Breakdown No Mucous membranes moist, pink and intact Yes Oral Cavity Normal Missing Teeth Musculoskeletal Assessment Musculoskeletal Symptoms Generalized Weakness Muscle Weakness Document 08/14/16 22:02 [facility] (Rec: 08/14/16 22:05 [facility] [id number]) Pain Assessment Pain Present Reports No Pain Neurological Assessment Eye Opening Spontaneous Motor Obeys Commands Verbal Oriented Coma Scale Total 15 Neurologic Status Alert Patient Orientation Person Place Time Arousable To Name Speech Pattern Normal rate Normal rhythm Normal tone Appropriate Clear Coherent Patient Behavior Appropriate Cooperative Mood Description Calm Relaxed Flat Bilateral Pupil Reaction Reactive Pupil Size (mm) 3 Pupil [place] Equal Scleral Edema No All Four Limbs Strength Normal for Patient Fur Clipper Strength Equal Push/Pull Equal Numbness/Tingling No Facial Symmetry Symmetrical Cardiovascular Assessment Signs and Symptoms None Heart Sounds S1 & S2 Pulse Rhythm Regular Jugular Vein Distention None Capillary Refill < 3 Seconds Circulatory Tenderness Description None Right Radial 2+ Left Radial 2+ Right Dorsalis Pedis 2+ Left Dorsalis Pedis 2+ Has Confirmed Diagnosis of DVT, PE or No VTE VTE Prophylaxis PO Treatment Mechanical Prophylaxis No Cardiac Monitoring Heart Rate 100 Monitoring Method Telemetry Rhythm Sinus Rhythm MS Interval 0.19 QRS Interval 0.07 QT Interval 0.31 Monitor Number [id number] Strip placed in Chart Yes Respiratory Assessment Respiratory Symptoms None Effort Normal for Patient Spontaneous Non-Labored Depth Normal Respiratory Pattern Regular Chest Shape Normal Expansion Symmetrical All Lung Wells Clear Oxygen Delivery Method Nasal Cannula Oxygen Flow Rate (LPM) 2 Cough Description None Sputum Amount None Gastrointestinal Assessment Abdomen Description Soft Large Round Tender 3 or more loose stools, in less than 24 No hours Nausea/Vomiting Presence None All Four Quadrants Active Flatus Presence Present Genitourinary Assessment Genitourinary Symptoms None Bladder Pattern Urgency Incontinent Incontinence Urge Voiding Method Bedside Commode Urinal Brief Bladder Distention None Suprapubic Tenderness with Palpation No Comment: no urine to assess at this time. Integumentary Assessment Nail Bed Appearance [place] Temperature Warm Moisture Dry Turgor Normal Color Normal All Pressure Points Assessed Yes Evidence of Incision/Wounds/Breakdown No Mucous membranes moist, pink and intact Yes Oral Cavity Normal Missing Teeth Musculoskeletal Assessment Musculoskeletal Symptoms Generalized Weakness Muscle Weakness Document 08/15/16 00:43 [facility] (Rec: 08/15/16 00:46 [facility] [id number]) Pain Assessment Pain Present Reports No Pain Neurological Assessment Eye Opening Spontaneous Motor Obeys Commands Verbal Oriented Coma Scale Total 15 Neurologic Status Alert Patient Orientation Person Place Time Arousable To Name Speech Pattern Normal rate Normal rhythm Normal tone Appropriate Clear Coherent Patient Behavior Appropriate Cooperative Mood Description Calm Relaxed Flat Bilateral Pupil Reaction Reactive Pupil [place] Equal Scleral Edema No All Four Limbs Strength Normal for Patient Fur Clipper Strength Equal Push/Pull Equal Numbness/Tingling No Facial Symmetry Symmetrical Corneal Reflex Present Bilateral Blink Present Cough/Gag Normal Babinski Reflex Absent Bilateral Doll's-Eye Absent Cardiovascular Assessment Signs and Symptoms None Heart Sounds S1 & S2 Pulse Rhythm Regular Jugular Vein Distention None Capillary Refill < 3 Seconds Circulatory Tenderness Description None Right Radial 2+ Left Radial 2+ Right Dorsalis Pedis 2+ Left Dorsalis Pedis 2+ Has Confirmed Diagnosis of DVT, PE or No VTE VTE Prophylaxis PO Treatment Mechanical Prophylaxis No Cardiac Monitoring Heart Rate 92 Monitoring Method Telemetry Rhythm Sinus Rhythm MS Interval 0.18 QRS Interval 0.08 QT Interval 0.30 Monitor Number [id number] Policy Loan Calculator Limits 120/40 Strip placed in Chart Yes Respiratory Assessment Respiratory Symptoms None Effort Normal for Patient Spontaneous Non-Labored Depth Normal Respiratory Pattern Regular Chest Shape Normal Expansion Symmetrical All Lung Wells Clear Oxygen Delivery Method Room Air Cough Description None Sputum Amount None Gastrointestinal Assessment Abdomen Description Soft Large Round Tender 3 or more loose stools, in less than 24 No hours Nausea/Vomiting Presence None All Four Quadrants Active Flatus Presence Present Genitourinary Assessment Genitourinary Symptoms None Bladder Pattern Urgency Incontinent Incontinence Urge Voiding Method Bedside Commode Urinal Brief Bladder Distention None Suprapubic Tenderness with Palpation No Comment: no urine to assess at this time. Integumentary Assessment Temperature Warm Moisture Dry Turgor Normal Color Normal All Pressure Points Assessed Yes Evidence of Incision/Wounds/Breakdown No Mucous membranes moist, pink and intact Yes Oral Cavity Normal Missing Teeth Musculoskeletal Assessment Musculoskeletal Symptoms Generalized Weakness Muscle Weakness Musculoskeletal Comment: cane at bedside. Document 08/15/16 08:50 [facility] (Rec: 08/15/16 08:53 [facility] [id number]) Pain Assessment Pain Present Reports Pain Right Knee Pain Intensity 8 Description Ache Chronic Scale Used Numeric (1 - 10) Pain Intervention Medication Neurological Assessment Eye Opening Spontaneous Motor Obeys Commands Verbal Oriented Coma Scale Total 15 Neurologic Status Alert Patient Orientation Person Place Time Arousable To Name Speech Pattern Normal rate Normal rhythm Normal tone Appropriate Clear Coherent Patient Behavior Appropriate Cooperative Mood Description Calm Relaxed [place] Bilateral Pupil Reaction Reactive Pupil [place] Equal Scleral Edema No All Four Limbs Strength Normal for Patient Fur Clipper Strength Equal Push/Pull Equal Numbness/Tingling No Facial Symmetry Symmetrical Corneal Reflex Present Bilateral Blink Present Cough/Gag Normal Babinski Reflex Absent Bilateral Doll's-Eye Absent Cardiovascular Assessment Signs and Symptoms None Heart Sounds S1 & S2 Pulse Rhythm Regular Jugular Vein Distention None Capillary Refill < 3 Seconds Circulatory Tenderness Description None Right Radial 2+ Left Radial 2+ Right Dorsalis Pedis 2+ Left Dorsalis Pedis 2+ Has Confirmed Diagnosis of DVT, PE or No VTE VTE Prophylaxis PO Treatment Mechanical Prophylaxis No Cardiac Monitoring Heart Rate 108 Monitoring Method Telemetry Rhythm Sinus Tachycardia MS Interval 0.17 QRS Interval 0.07 QT Interval 0.31 Monitor Number [id number] Policy Loan Calculator Limits 120/40 Strip placed in Chart Yes Respiratory Assessment Respiratory Symptoms None Effort Normal for Patient Spontaneous Non-Labored Depth Normal Respiratory Pattern Regular Chest Shape Normal Expansion Symmetrical All Lung Wells Clear Oxygen Delivery Method Room Air Cough Description None Sputum Amount None Gastrointestinal Assessment Abdomen Description Soft Large Round Tender 3 or more loose stools, in less than 24 No hours Nausea/Vomiting Presence None All Four Quadrants Active Flatus Presence Present Genitourinary Assessment Genitourinary Symptoms None Bladder Pattern Urgency Incontinent Incontinence Urge Voiding Method Bedside Commode Urinal Brief Bladder Distention None Suprapubic Tenderness with Palpation No Comment: no urine to assess at this time. Integumentary Assessment Temperature Warm Moisture Dry Turgor Normal Color Normal All Pressure Points Assessed Yes Evidence of Incision/Wounds/Breakdown No Mucous membranes moist, pink and intact Yes Oral Cavity Normal Missing Teeth Musculoskeletal Assessment Musculoskeletal Symptoms Generalized Weakness Muscle Weakness Musculoskeletal Comment: cane at bedside. Document 08/15/16 11:45 [facility] (Rec: 08/15/16 13:42 [id number] Pain Assessment Pain Present Reports No Pain Neurological Assessment Eye Opening Spontaneous Motor Obeys Commands Verbal Oriented Coma Scale Total 15 Neurologic Status Alert Patient Orientation Person Place Time Arousable To Name Speech Pattern Normal rate Normal rhythm Normal tone Appropriate Clear Coherent Patient Behavior Appropriate Cooperative Mood Description Calm Relaxed Flat Bilateral Pupil Reaction Reactive Pupil Size (mm) 3 Pupil [place] Equal Scleral Edema No All Four Limbs Strength Normal for Patient Fur Clipper Strength Equal Push/Pull Equal Numbness/Tingling No Facial Symmetry Symmetrical Cardiovascular Assessment Signs and Symptoms None Heart Sounds S1 & S2 Pulse Rhythm Regular Jugular Vein Distention None Capillary Refill < 3 Seconds Circulatory Tenderness Description None Right Radial 2+ Left Radial 2+ Right Dorsalis Pedis 2+ Left Dorsalis Pedis 2+ Has Confirmed Diagnosis of DVT, PE or No VTE VTE Prophylaxis PO Treatment Mechanical Prophylaxis No Cardiac Monitoring Heart Rate 98 Monitoring Method Telemetry Rhythm Sinus Rhythm MS Interval 0.20 QRS Interval 0.08 QT Interval 0.29 Monitor Number [id number] Policy Loan Calculator Limits 120/40 Strip placed in Chart Yes Respiratory Assessment Respiratory Symptoms None Effort Normal for Patient Spontaneous Non-Labored Depth Normal Respiratory Pattern Regular Chest Shape Normal Expansion Symmetrical All Lung Wells Clear Oxygen Delivery Method Room Air Cough Description None Sputum Amount None Gastrointestinal Assessment Abdomen Description Soft Large Round Tender 3 or more loose stools, in less than 24 No hours Nausea/Vomiting Presence None All Four Quadrants Active Flatus Presence Present Genitourinary Assessment Genitourinary Symptoms None Bladder Pattern Urgency Incontinent Incontinence Urge Voiding Method Bedside Commode Urinal Brief Bladder Distention None Suprapubic Tenderness with Palpation No Comment: no urine to assess at this time. Integumentary Assessment Nail Bed Appearance [place] Temperature Warm Moisture Dry Turgor Normal Color Normal All Pressure Points Assessed Yes Evidence of Incision/Wounds/Breakdown No Mucous membranes moist, pink and intact Yes Oral Cavity Normal Missing Teeth Musculoskeletal Assessment Musculoskeletal Symptoms Generalized Weakness Muscle Weakness Document 08/15/16 20:00 [facility] (Rec: 08/15/16 22:40 [id number] Pain Assessment Pain Present Reports No Pain right side Pain Intensity 8 Description Stabbing Scale Used Numeric (1 - 10) Pain Intervention Medication Neurological Assessment Eye Opening Spontaneous Motor Obeys Commands Verbal Oriented Coma Scale Total 15 Neurologic Status Alert Patient Orientation Person Place Time Arousable To Name Speech Pattern Normal rate Normal rhythm Normal tone Appropriate Clear Coherent Patient Behavior Appropriate Cooperative Mood Description Calm Relaxed Bilateral Pupil Reaction Reactive Pupil Size (mm) 3 Pupil [place] Equal Scleral Edema No All Four Limbs Strength Normal for Patient Fur Clipper Strength Equal Push/Pull Equal Numbness/Tingling Yes: Bilateral lower extremities Facial Symmetry Symmetrical Neurological Comment: Pt alert and oriented x3. Cardiovascular Assessment Signs and Symptoms Rapid Heart Rate Heart Sounds S1 & S2 Pulse Rhythm Regular Jugular Vein Distention None Capillary Refill < 3 Seconds Circulatory Tenderness Description None Right Radial 2+ Left Radial 2+ Right Dorsalis Pedis 2+ Left Dorsalis Pedis 2+ Has Confirmed Diagnosis of DVT, PE or No VTE VTE Prophylaxis SQ Treatment Mechanical Prophylaxis No Cardiac Monitoring Heart Rate 108 Monitoring Method Telemetry Rhythm Sinus Tachycardia MS Interval 0.19 QRS Interval 0.04 QT Interval 0.29 Monitor Number [id number] Policy Loan Calculator Limits 120/40 Strip placed in Chart Yes Pacemaker Assessment Cardiac Comment: Pt running ST at this time. will continue to monitor. Respiratory Assessment Respiratory Symptoms None Effort Normal for Patient Spontaneous Non-Labored Depth Normal Respiratory Pattern Regular Chest Shape Normal Expansion Symmetrical All Lung Wells Clear Oxygen Delivery Method Room Air Cough Description None Sputum Amount None Respiratory Comment: No cough or sputum noted at this time. Gastrointestinal Assessment Abdomen Description Soft Large Round Tender 3 or more loose stools, in less than 24 No hours Nausea/Vomiting Presence None GI Comment: Pt complaining of abdominal pain present on right side. All Four Quadrants Active Flatus Presence Present Genitourinary Assessment Genitourinary Symptoms None Bladder Pattern Urgency Incontinent Incontinence Urge Voiding Method Bedside Commode Urinal Brief Bladder Distention None Suprapubic Tenderness with Palpation No Comment: No urine present to assess at this time. Integumentary Assessment Nail Bed Appearance [place] Temperature Warm Moisture Dry Turgor Normal Color Normal All Pressure Points Assessed Yes Evidence of Incision/Wounds/Breakdown No Mucous membranes moist, pink and intact Yes Oral Cavity Missing Teeth Integumentary Comment: Pt states he "has dentures but does not wear them". Musculoskeletal Assessment Musculoskeletal Symptoms Generalized Weakness Muscle Weakness Musculoskeletal Comment: cane at bedside. Document 08/16/16 05:03 [facility] (Rec: 08/16/16 05:06 [facility] [id number]) Pain Assessment Pain Present Reports Pain right side Pain Intensity 8 Description Stabbing Scale Used Numeric (1 - 10) Pain Intervention None Comment Asking for order of iv pain medication from physician. Neurological Assessment Eye Opening Spontaneous Motor Obeys Commands Verbal Oriented Coma Scale Total 15 Neurologic Status Alert Patient Orientation Person Place Time Arousable To Name Speech Pattern Normal rate Normal rhythm Normal tone Appropriate Clear Coherent Patient Behavior Appropriate Cooperative Mood Description Calm Relaxed Bilateral Pupil Reaction Reactive Pupil Size (mm) 3 Pupil [place] Equal Scleral Edema No All Four Limbs Strength Normal for Patient Fur Clipper Strength Equal Push/Pull Equal Numbness/Tingling Yes: Bilateral lower extremities Facial Symmetry Symmetrical Blink Present Cough/Gag Normal Doll's-Eye Absent Neurological Comment: Pt alert and oriented x3. Cardiovascular Assessment Signs and Symptoms Rapid Heart Rate Heart Sounds S1 & S2 Pulse Rhythm Regular Jugular Vein Distention None Capillary Refill < 3 Seconds Circulatory Tenderness Description None Right Radial 2+ Left Radial 2+ Right Dorsalis Pedis 2+ Left Dorsalis Pedis 2+ Chest Pain Complaint No Has Confirmed Diagnosis of DVT, PE or No VTE VTE Prophylaxis SQ Treatment Mechanical Prophylaxis No Reason Mechanical Device Not Applied Refused by patient Cardiac Monitoring Heart Rate 102 Monitoring Method Telemetry Rhythm Sinus Tachycardia MS Interval 0.22 QRS Interval 0.05 QT Interval 0.31 Monitor Number [id number] Policy Loan Calculator Limits 120/40 Strip placed in Chart Yes Pacemaker Assessment Cardiac Comment: Pt running ST at this time. will continue to monitor. Respiratory Assessment Respiratory Symptoms None Effort Normal for Patient Spontaneous Non-Labored Depth Normal Respiratory Pattern Regular Chest Shape Normal Expansion Symmetrical All Lung Wells Clear Oxygen Delivery Method Room Air Cough Description None Sputum Amount None Respiratory Comment: No cough or sputum noted at this time. Gastrointestinal Assessment Abdomen Description Soft Large Round Tender 3 or more loose stools, in less than 24 No hours Nausea/Vomiting Presence None GI Comment: Pt complaining of abdominal pain present on right side. All Four Quadrants Active Flatus Presence Present Genitourinary Assessment Genitourinary Symptoms None Bladder Pattern Urgency Incontinent Incontinence Urge Voiding Method Bedside Commode Urinal Brief Urine Appearance Clear Color Light Rae Metcalfe Bladder Distention None Suprapubic Tenderness with Palpation No Comment: No urine present to assess at this time. Integumentary Assessment Nail Bed Appearance [place] Temperature Warm Moisture Dry Turgor Normal Color Normal All Pressure Points Assessed Yes Evidence of Incision/Wounds/Breakdown No Mucous membranes moist, pink and intact Yes Oral Cavity Missing Teeth Integumentary Comment: Pt states he "has dentures but does not wear them". Musculoskeletal Assessment Musculoskeletal Symptoms Generalized Weakness Muscle Weakness Musculoskeletal Comment: cane at bedside. Document 08/16/16 08:30 [facility] (Rec: 08/16/16 10:06 [facility] [id number]) Pain Assessment Pain Present Reports No Pain Neurological Assessment Eye Opening Spontaneous Motor Obeys Commands Verbal Oriented Coma Scale Total 15 Neurologic Status Alert Patient Orientation Person Place Time Arousable To Name Speech Pattern Normal rate Normal rhythm Normal tone Appropriate Clear Coherent Patient Behavior Appropriate Cooperative Mood Description Calm Relaxed Bilateral Pupil Reaction Reactive Pupil Size (mm) 3 Pupil [place] Equal Scleral Edema No All Four Limbs Strength Normal for Patient Fur Clipper Strength Equal Push/Pull Equal Numbness/Tingling Yes: Bilateral lower extremities Facial Symmetry Symmetrical Cardiovascular Assessment Signs and Symptoms None Heart Sounds S1 & S2 Pulse Rhythm Regular Jugular Vein Distention None Capillary Refill < 3 Seconds Circulatory Tenderness Description None Right Radial 2+ Left Radial 2+ Right Dorsalis Pedis 2+ Left Dorsalis Pedis 2+ Has Confirmed Diagnosis of DVT, PE or No VTE VTE Prophylaxis SQ Treatment Mechanical Prophylaxis No Cardiac Monitoring Heart Rate 94 Monitoring Method Telemetry Rhythm Sinus Rhythm MS Interval 0.20 QRS Interval 0.05 QT Interval 0.33 Monitor Number [id number] Policy Loan Calculator Limits 120/40 Strip placed in Chart Yes Respiratory Assessment Respiratory Symptoms None Effort Normal for Patient Spontaneous Non-Labored Depth Normal Respiratory Pattern Regular Chest Shape Normal Expansion Symmetrical All Lung Wells Clear Oxygen Delivery Method Room Air Cough Description None Sputum Amount None Gastrointestinal Assessment Abdomen Description Large Round Distended Tender 3 or more loose stools, in less than 24 No hours Nausea/Vomiting Presence None All Four Quadrants Active Flatus Presence Present Genitourinary Assessment Genitourinary Symptoms None Bladder Pattern Urgency Incontinent Incontinence Urge Voiding Method Bedside Commode Urinal Brief Bladder Distention None Suprapubic Tenderness with Palpation No Comment: No urine present to assess at this time. Integumentary Assessment Nail Bed Appearance [place] Temperature Warm Moisture Dry Turgor Normal Color Normal All Pressure Points Assessed Yes Evidence of Incision/Wounds/Breakdown No Mucous membranes moist, pink and intact Yes Oral Cavity Missing Teeth Musculoskeletal Assessment Musculoskeletal Symptoms Generalized Weakness Muscle Weakness Document 08/16/16 17:00 [facility] (Rec: 08/16/16 18:11 [facility] [id number]) Pain Assessment Pain Present Reports No Pain Neurological Assessment Eye Opening Spontaneous Motor Obeys Commands Verbal Oriented Coma Scale Total 15 Neurologic Status Alert Patient Orientation Person Place Time Arousable To Name Speech Pattern Normal rate Normal rhythm Normal tone Appropriate Clear Coherent Patient Behavior Appropriate Cooperative Mood Description Calm Relaxed Bilateral Pupil Reaction Reactive Pupil Size (mm) 3 Pupil [place] Equal Scleral Edema No All Four Limbs Strength Normal for Patient Fur Clipper Strength Equal Push/Pull Equal Numbness/Tingling Yes: Bilateral lower extremities Facial Symmetry Symmetrical Cardiovascular Assessment Signs and Symptoms None Heart Sounds S1 & S2 Pulse Rhythm Regular Jugular Vein Distention None Capillary Refill < 3 Seconds Circulatory Tenderness Description None Right Radial 2+ Left Radial 2+ Right Dorsalis Pedis 2+ Left Dorsalis Pedis 2+ Has Confirmed Diagnosis of DVT, PE or No VTE VTE Prophylaxis SQ Treatment Mechanical Prophylaxis No Cardiac Monitoring Heart Rate 97 Monitoring Method Telemetry Rhythm Sinus Rhythm MS Interval 0.20 QRS Interval 0.04 QT Interval 0.35 Monitor Number [id number] Strip placed in Chart Yes Respiratory Assessment Respiratory Symptoms None Effort Normal for Patient Spontaneous Non-Labored Depth Normal Respiratory Pattern Regular Chest Shape Normal Expansion Symmetrical All Lung Wells Clear Oxygen Delivery Method Room Air Cough Description None Sputum Amount None Gastrointestinal Assessment Abdomen Description Large Round Distended Tender 3 or more loose stools, in less than 24 No hours Nausea/Vomiting Presence None All Four Quadrants Active Flatus Presence Present Genitourinary Assessment Genitourinary Symptoms None Bladder Pattern Urgency Incontinent Incontinence Urge Voiding Method Bedside Commode Urinal Brief Bladder Distention None Suprapubic Tenderness with Palpation No Comment: No urine present to assess at this time. Integumentary Assessment Nail Bed Appearance [place] Temperature Warm Moisture Dry Turgor Normal Color Normal All Pressure Points Assessed Yes Evidence of Incision/Wounds/Breakdown No Mucous membranes moist, pink and intact Yes Oral Cavity Missing Teeth Musculoskeletal Assessment Musculoskeletal Symptoms Generalized Weakness Muscle Weakness Document 08/16/16 21:40 BEF (Rec: 08/17/16 00:18 BEF [id number]) Pain Assessment Pain Present Reports No Pain right side Pain Intensity 8 Description Stabbing Scale Used Numeric (1 - 10) Pain Intervention Medication Right Knee Pain Intensity 0 Scale Used Numeric (1 - 10) Abdomen Pain Intensity 0 Scale Used Numeric (1 - 10) Pain Intervention None Neurological Assessment Eye Opening Spontaneous Motor Obeys Commands Verbal Oriented Coma Scale Total 15 Neurologic Status Alert Patient Orientation Person Place Time Arousable To Name Speech Pattern Normal rate Normal rhythm Normal tone Appropriate Clear Coherent Patient Behavior Appropriate Cooperative Mood Description Calm Relaxed Bilateral Pupil Reaction Reactive Pupil Size (mm) 3 Pupil [place] Equal Scleral Edema No All Four Limbs Strength Normal for Patient Fur Clipper Strength Equal Push/Pull Equal Numbness/Tingling Yes: Bilateral lower extremities Facial Symmetry Symmetrical Blink Present Cough/Gag Normal Doll's-Eye Absent Neurological Comment: Pt alert and oriented x3. Cardiovascular Assessment Signs and Symptoms Hypertension Heart Sounds S1 & S2 Pulse Rhythm Regular Jugular Vein Distention None Capillary Refill < 3 Seconds Circulatory Tenderness Description None Right Radial 2+ Left Radial 2+ Right Dorsalis Pedis 2+ Left Dorsalis Pedis 2+ Chest Pain Complaint No Has Confirmed Diagnosis of DVT, PE or No VTE VTE Prophylaxis SQ Treatment Mechanical Prophylaxis No Reason Mechanical Device Not Applied Refused by patient Cardiac Monitoring Heart Rate 98 Monitoring Method Telemetry Rhythm Sinus Rhythm MS Interval 0.24 QRS Interval 0.05 QT Interval 0.33 Monitor Number [id number] Policy Loan Calculator Limits 120/40 Strip placed in Chart Yes Pacemaker Assessment Cardiac Comment: Pt running SR on tele at this time. Will continue to monitor . Respiratory Assessment Respiratory Symptoms None Effort Normal for Patient Spontaneous Non-Labored Depth Normal Respiratory Pattern Regular Chest Shape Normal Expansion Symmetrical All Lung Wells Clear Oxygen Delivery Method Room Air Cough Description None Sputum Amount None Respiratory Comment: No cough or sputum noted at this time. Gastrointestinal Assessment Abdomen Description Large Round Distended Tender 3 or more loose stools, in less than 24 No hours Nausea/Vomiting Presence None GI Comment: Pt complaining of abdominal pain present on right side. All Four Quadrants Active Flatus Presence Present Genitourinary Assessment Genitourinary Symptoms None Bladder Pattern Urgency Incontinent Incontinence Urge Voiding Method Bedside Commode Urinal Brief Bladder Distention None Suprapubic Tenderness with Palpation No Comment: No urine present to assess at this time. Integumentary Assessment Nail Bed Appearance [place] Temperature Warm Moisture Dry Turgor Normal Color Normal All Pressure Points Assessed Yes Evidence of Incision/Wounds/Breakdown No Mucous membranes moist, pink and intact Yes Oral Cavity Missing Teeth Integumentary Comment: Pt states he "has dentures but does not wear them". Musculoskeletal Assessment Musculoskeletal Symptoms Generalized Weakness Muscle Weakness Musculoskeletal Comment: cane at bedside. Document 08/17/16 04:41 BEF (Rec: 08/17/16 04:44 BEF [id number]) Pain Assessment Pain Present Allowed to Sleep Neurological Assessment Eye Opening Spontaneous Motor Obeys Commands Verbal Oriented Coma Scale Total 15 Neurologic Status Alert Patient Orientation Person Place Time Arousable To Name Speech Pattern Normal rate Normal rhythm Normal tone Appropriate Clear Coherent Patient Behavior Appropriate Cooperative Mood Description Calm Relaxed Bilateral Pupil Reaction Reactive Pupil Size (mm) 3 Pupil [place] Equal Scleral Edema No All Four Limbs Strength Normal for Patient Fur Clipper Strength Equal Push/Pull Equal Numbness/Tingling Yes: Bilateral lower extremities Facial Symmetry Symmetrical Blink Present Cough/Gag Normal Doll's-Eye Absent Neurological Comment: Pt alert and oriented x3. Cardiovascular Assessment Signs and Symptoms None Heart Sounds S1 & S2 Pulse Rhythm Regular Jugular Vein Distention None Capillary Refill < 3 Seconds Circulatory Tenderness Description None Right Radial 2+ Left Radial 2+ Right Dorsalis Pedis 2+ Left Dorsalis Pedis 2+ Chest Pain Complaint No Has Confirmed Diagnosis of DVT, PE or No VTE VTE Prophylaxis SQ Treatment Mechanical Prophylaxis No Cardiac Monitoring Heart Rate 98 Monitoring Method Telemetry Rhythm Sinus Rhythm MS Interval 0.23 QRS Interval 0.05 QT Interval 0.30 Monitor Number [id number] Policy Loan Calculator Limits 120/40 Strip placed in Chart Yes Pacemaker Assessment Cardiac Comment: Pt running SR on tele at this time. Will continue to monitor . Respiratory Assessment Respiratory Symptoms None Effort Normal for Patient Spontaneous Non-Labored Depth Normal Respiratory Pattern Regular Chest Shape Normal Expansion Symmetrical All Lung Wells Clear Oxygen Delivery Method Room Air Cough Description None Sputum Amount None Respiratory Comment: No cough or sputum noted at this time. Gastrointestinal Assessment Abdomen Description Large Round Distended Tender 3 or more loose stools, in less than 24 No hours Nausea/Vomiting Presence None GI Comment: Pt complaining of abdominal pain present on right side. All Four Quadrants Active Flatus Presence Present Genitourinary Assessment Genitourinary Symptoms None Bladder Pattern Urgency Incontinence Urge Voiding Method Bedside Commode Urinal Brief Urine Appearance Clear Color Light Rae Bladder Distention None Suprapubic Tenderness with Palpation No Integumentary Assessment Nail Bed Appearance [place] Temperature Warm Moisture Dry Turgor Normal Color Normal All Pressure Points Assessed Yes Evidence of Incision/Wounds/Breakdown No Mucous membranes moist, pink and intact Yes Oral Cavity Missing Teeth Integumentary Comment: Pt states he "has dentures but does not wear them". Musculoskeletal Assessment Musculoskeletal Symptoms Generalized Weakness Muscle Weakness Musculoskeletal Comment: cane at bedside. Document 08/17/16 09:10 AYW (Rec: 08/17/16 10:06 AYW [id number]) Pain Assessment Pain Present Reports Pain Abdomen Pain Intensity 8 Description Ache Scale Used Numeric (1 - 10) Pain Intervention Medication Neurological Assessment Eye Opening Spontaneous Motor Obeys Commands Verbal Oriented Coma Scale Total 15 Neurologic Status Alert Patient Orientation Person Place Time Arousable To Name Speech Pattern Normal rate Normal rhythm Normal tone Appropriate Clear Coherent Patient Behavior Appropriate Cooperative Mood Description Calm Relaxed Appropriate Bilateral Pupil Reaction Reactive Pupil Size (mm) 3 Pupil [place] Equal Scleral Edema No All Four Limbs Strength Normal for Patient Fur Clipper Strength Equal Push/Pull Equal Numbness/Tingling Yes: chronic BLE Facial Symmetry Symmetrical Cardiovascular Assessment Signs and Symptoms None Heart Sounds S1 & S2 Pulse Rhythm Regular Jugular Vein Distention None Capillary Refill < 3 Seconds Circulatory Tenderness Description None Right Radial 2+ Left Radial 2+ Right Dorsalis Pedis 2+ Left Dorsalis Pedis 2+ Has Confirmed Diagnosis of DVT, PE or No VTE VTE Prophylaxis PO Treatment Mechanical Prophylaxis No Cardiac Monitoring Heart Rate 98 Monitoring Method Telemetry Rhythm Sinus Rhythm MS Interval 0.18 QRS Interval 0.07 QT Interval 0.36 Monitor Number [id number] Policy Loan Calculator Limits 120/50 Strip placed in Chart Yes Memory Cleared No Respiratory Assessment Respiratory Symptoms None Effort Normal for Patient Spontaneous Non-Labored Depth Normal Respiratory Pattern Regular Chest Shape Normal Expansion Symmetrical All Lung Wells Clear Oxygen Delivery Method Room Air Cough Description None Sputum Amount None Gastrointestinal Assessment Abdomen Description Large Round Firm Tender 3 or more loose stools, in less than 24 No hours Nausea/Vomiting Presence None All Four Quadrants Active Flatus Presence Present Genitourinary Assessment Genitourinary Symptoms None Voiding Method Bedside Commode Urinal Bladder Distention None Suprapubic Tenderness with Palpation No Comment: no urine to assess at time of assessment Integumentary Assessment Nail Bed Appearance [place] Temperature Warm Moisture Dry Turgor Normal Color Normal All Pressure Points Assessed Yes Evidence of Incision/Wounds/Breakdown No Mucous membranes moist, pink and intact Yes Oral Cavity Missing Teeth Musculoskeletal Assessment Musculoskeletal Symptoms Generalized Weakness Document 08/17/16 16:57 AYW (Rec: 08/17/16 17:02 AYW [id number]) Pain Assessment Pain Present Reports No Pain Neurological Assessment Eye Opening Spontaneous Motor Obeys Commands Verbal Oriented Coma Scale Total 15 Neurologic Status Alert Patient Orientation Person Place Time Arousable To Name Speech Pattern Normal rate Normal rhythm Normal tone Appropriate Clear Coherent Patient Behavior Appropriate Cooperative Mood Description Calm Relaxed Appropriate Bilateral Pupil Reaction Reactive Pupil Size (mm) 3 Pupil [place] Equal Scleral Edema No All Four Limbs Strength Normal for Patient Fur Clipper Strength Equal Push/Pull Equal Numbness/Tingling Yes: chronic BLE Facial Symmetry Symmetrical Cardiovascular Assessment Signs and Symptoms None Heart Sounds S1 & S2 Pulse Rhythm Regular Jugular Vein Distention None Capillary Refill < 3 Seconds Circulatory Tenderness Description None Right Radial 2+ Left Radial 2+ Right Dorsalis Pedis 2+ Left Dorsalis Pedis 2+ Chest Pain Complaint No Has Confirmed Diagnosis of DVT, PE or No VTE VTE Prophylaxis PO Treatment Mechanical Prophylaxis No Cardiac Monitoring Heart Rate 96 Monitoring Method Telemetry Rhythm Sinus Rhythm MS Interval 0.20 QRS Interval 0.07 QT Interval 0.35 Monitor Number [id number] Policy Loan Calculator Limits 120/50 Strip placed in Chart Yes Memory Cleared No Respiratory Assessment Respiratory Symptoms None Effort Normal for Patient Spontaneous Non-Labored Depth Normal Respiratory Pattern Regular Chest Shape Normal Expansion Symmetrical All Lung Wells Clear Oxygen Delivery Method Room Air Cough Description None Sputum Amount None Respiratory Comment: No cough or sputum noted at this time. Gastrointestinal Assessment Abdomen Description Large Round Firm Tender 3 or more loose stools, in less than 24 No hours Nausea/Vomiting Presence None All Four Quadrants Active Flatus Presence Present Genitourinary Assessment Genitourinary Symptoms None Bladder Pattern Normal Voiding Method Toilet Urinal Bladder Distention None Suprapubic Tenderness with Palpation No Comment: no urine to assess at time of assessment Integumentary Assessment Nail Bed Appearance [place] Temperature Warm Moisture Dry Turgor Normal Color Normal All Pressure Points Assessed Yes Evidence of Incision/Wounds/Breakdown No Mucous membranes moist, pink and intact Yes Oral Cavity Missing Teeth Musculoskeletal Assessment Musculoskeletal Symptoms Generalized Weakness Document 08/17/16 20:32 KMA (Rec: 08/17/16 21:05 KMA [id number]) Pain Assessment Pain Present Reports Pain Abdomen Pain Intensity 8 Description Ache Scale Used Numeric (1 - 10) Description of Site RLQ Pain Intervention Medication Comment States "They say it's cause of the cirrhosis". Neurological Assessment Eye Opening Spontaneous Motor Obeys Commands Verbal Oriented Coma Scale Total 15 Neurologic Status Alert Patient Orientation Person Place Time Arousable To Name Speech Pattern Normal rate Normal rhythm Normal tone Appropriate Clear Coherent Patient Behavior Appropriate Cooperative Mood Description Calm Relaxed Appropriate Bilateral Pupil Reaction Reactive Pupil Size (mm) 2 Pupil [place] PERRL Scleral Edema No All Four Limbs Strength Normal for Patient Fur Clipper Strength Equal Push/Pull Equal Numbness/Tingling No Facial Symmetry Symmetrical Cardiovascular Assessment Signs and Symptoms Nausea Stomach Pain Abdominal Edema Heart Sounds S1 & S2 Pulse Rhythm Regular Jugular Vein Distention None Capillary Refill < 3 Seconds Circulatory Tenderness Description None Right Radial 2+ Left Radial 2+ Right Dorsalis Pedis 2+ Left Dorsalis Pedis 2+ Chest Pain Complaint No Has Confirmed Diagnosis of DVT, PE or No VTE VTE Prophylaxis PO Treatment Mechanical Prophylaxis No Reason Mechanical Device Not Applied Refused by patient Cardiac Monitoring Heart Rate 99 Monitoring Method Telemetry Rhythm Sinus Rhythm MS Interval 0.20 QRS Interval 0.09 QT Interval 0.33 Monitor Number [id number] Policy Loan Calculator Limits 120/50 Strip placed in Chart Yes Respiratory Assessment Respiratory Symptoms None Effort Normal for Patient Spontaneous Non-Labored Depth Normal Respiratory Pattern Regular Chest Shape Normal Expansion Symmetrical All Lung Wells Clear Oxygen Delivery Method Room Air Cough Description None Sputum Amount None Gastrointestinal Assessment Abdomen Description Round Firm Distended Tender 3 or more loose stools, in less than 24 No: Receiving Lactulose hours therapy. Nausea/Vomiting Presence Nauseated GI Comment: Declines need for medication for nausea, describes as "only a little". All Four Quadrants Hypoactive Genitourinary Assessment Genitourinary Symptoms None Bladder Pattern Normal Voiding Method Toilet Urinal Urine Appearance Clear Color Pale Odor Normal Bladder Distention None Suprapubic Tenderness with Palpation No Integumentary Assessment Nail Bed Appearance [place] Temperature Warm Moisture Dry Turgor Normal Color Normal All Pressure Points Assessed Yes Evidence of Incision/Wounds/Breakdown No Mucous membranes moist, pink and intact Yes Oral Cavity Missing Teeth Musculoskeletal Assessment Musculoskeletal Symptoms Generalized Weakness Musculoskeletal Comment: Cane in room. Document 08/18/16 00:35 KMA (Rec: 08/18/16 00:39 KMA [id number]) Pain Assessment Pain Present Reports Pain Abdomen Pain Intensity 7 Description Ache Scale Used Numeric (1 - 10) Pain Intervention Medication Neurological Assessment Eye Opening Spontaneous Motor Obeys Commands Verbal Oriented Coma Scale Total 15 Neurologic Status Alert Patient Orientation Person Place Time Arousable To Name Speech Pattern Normal rate Normal rhythm Normal tone Appropriate Clear Coherent Patient Behavior Appropriate Cooperative Mood Description Calm Relaxed Appropriate Bilateral Pupil Size (mm) 2 Pupil [place] Equal Scleral Edema No All Four Limbs Strength Normal for Patient Fur Clipper Strength Equal Push/Pull Equal Numbness/Tingling No Facial Symmetry Symmetrical Cardiovascular Assessment Signs and Symptoms Stomach Pain Rapid Heart Rate Abdominal Edema Heart Sounds S1 & S2 Pulse Rhythm Regular Jugular Vein Distention None Capillary Refill < 3 Seconds Circulatory Tenderness Description None Right Radial 2+ Left Radial 2+ Right Dorsalis Pedis 2+ Left Dorsalis Pedis 2+ Chest Pain Complaint No Has Confirmed Diagnosis of DVT, PE or No VTE VTE Prophylaxis PO Treatment Mechanical Prophylaxis No Contraindication No VTE Prophylaxis Not indicated-Anticoagulated or INR therapeutic Cardiac Monitoring Heart Rate 102 Monitoring Method Telemetry Rhythm Sinus Tachycardia First Degree Block MS Interval 0.23 QRS Interval 0.08 QT Interval 0.34 Monitor Number [id number] Policy Loan Calculator Limits 120/50 Strip placed in Chart Yes Pacemaker Assessment Cardiac Comment: . Respiratory Assessment Respiratory Symptoms Tachycardia Effort Normal for Patient Spontaneous Non-Labored Depth Normal Respiratory Pattern Regular Chest Shape Normal Expansion Symmetrical All Lung Wells Clear Diminished Oxygen Delivery Method Room Air Cough Description None Sputum Amount None Gastrointestinal Assessment Abdomen Description Round Firm Distended Tender 3 or more loose stools, in less than 24 No: Receiving Lactulose hours therapy. Nausea/Vomiting Presence None GI Comment: . Genitourinary Assessment Genitourinary Symptoms None Bladder Pattern Normal Voiding Method Toilet Urinal Urine Appearance Clear Color Pale Odor Normal Bladder Distention None Suprapubic Tenderness with Palpation No Integumentary Assessment Temperature Warm Moisture Dry Turgor Normal Color Normal All Pressure Points Assessed Yes Evidence of Incision/Wounds/Breakdown No Mucous membranes moist, pink and intact Yes Oral Cavity Missing Teeth Musculoskeletal Assessment Musculoskeletal Symptoms Generalized Weakness Musculoskeletal Comment: Cane in room. Document 08/18/16 08:57 KMB (Rec: 08/18/16 09:05 KMB [id number]) Pain Assessment Pain Present Reports Pain Abdomen Pain Intensity 8 Description Ache Scale Used Numeric (1 - 10) Pain Intervention Medication Position Distraction Neurological Assessment Eye Opening Spontaneous Motor Obeys Commands Verbal Oriented Coma Scale Total 15 Neurologic Status Alert Patient Orientation Person Place Time Arousable To Name Speech Pattern Normal rate Normal rhythm Normal tone Appropriate Clear Coherent Patient Behavior Appropriate Cooperative Mood Description Calm Relaxed Appropriate Bilateral Pupil Size (mm) 3 Pupil [place] Equal Scleral Edema No All Four Limbs Strength Normal for Patient Fur Clipper Strength Equal Push/Pull Equal Numbness/Tingling No Facial Symmetry Symmetrical Corneal Reflex Present Bilateral Blink Present Cough/Gag Normal Babinski Reflex Absent Bilateral Doll's-Eye Absent Neurological Comment: Patient is alert and oriented to person, place, time and situaiton Cardiovascular Assessment Signs and Symptoms Stomach Pain Rapid Heart Rate Abdominal Edema Heart Sounds S1 & S2 Pulse Rhythm Regular Jugular Vein Distention None Capillary Refill < 3 Seconds Circulatory Tenderness Description None Right Radial 2+ Left Radial 2+ Right Dorsalis Pedis 2+ Left Dorsalis Pedis 2+ Chest Pain Complaint No Has Confirmed Diagnosis of DVT, PE or No VTE VTE Prophylaxis PO Treatment Mechanical Prophylaxis No Contraindication No VTE Prophylaxis Not indicated-Anticoagulated or INR therapeutic Cardiac Monitoring Heart Rate 109 Monitoring Method Telemetry Rhythm Sinus Tachycardia MS Interval 0.19 QRS Interval 0.08 QT Interval 0.33 Monitor Number [id number] Policy Loan Calculator Limits 120/50 Strip placed in Chart Yes Monitor History Reviewed Yes Memory Cleared No Pacemaker Assessment Cardiac Comment: . Respiratory Assessment Respiratory Symptoms Tachycardia Effort Normal for Patient Spontaneous Non-Labored Depth Normal Respiratory Pattern Regular Chest Shape Normal Expansion Symmetrical All Lung Wells Clear Diminished Oxygen Delivery Method Room Air Cough Description None Sputum Amount None Respiratory Comment: No cough or sputum noted at this time. Gastrointestinal Assessment Abdomen Description Round Firm Distended Tender 3 or more loose stools, in less than 24 No: Receiving Lactulose hours therapy. Nausea/Vomiting Presence None GI Comment: . All Four Quadrants Active Flatus Presence Present Genitourinary Assessment Genitourinary Symptoms None Bladder Pattern Normal Incontinence Urge Voiding Method Toilet Urinal Bladder Distention None Suprapubic Tenderness with Palpation No Comment: No urine assessed at this time Integumentary Assessment Nail Bed Appearance [place] Temperature Warm Moisture Dry Turgor Normal Color Normal All Pressure Points Assessed Yes Evidence of Incision/Wounds/Breakdown No Mucous membranes moist, pink and intact Yes Oral Cavity Missing Teeth Integumentary Comment: Pt states he "has dentures but does not wear them". Musculoskeletal Assessment Musculoskeletal Symptoms Generalized Weakness Musculoskeletal Comment: Patient reports using cane while ambulating Document 08/18/16 11:14 KMB (Rec: 08/18/16 12:40 KMB [id number]) Pain Assessment Pain Present Reports Pain Abdomen Pain Intensity 6 Description Ache Scale Used Numeric (1 - 10) Pain Intervention Provider Notified Position Distraction Neurological Assessment Eye Opening Spontaneous Motor Obeys Commands Verbal Oriented Coma Scale Total 15 Neurologic Status Alert Patient Orientation Person Place Time Arousable To Name Speech Pattern Normal rate Normal rhythm Normal tone Appropriate Clear Coherent Patient Behavior Appropriate Cooperative Mood Description Calm Relaxed Appropriate Bilateral Pupil Size (mm) 3 Pupil [place] Equal Scleral Edema No All Four Limbs Strength Normal for Patient Fur Clipper Strength Equal Push/Pull Equal Numbness/Tingling No Facial Symmetry Symmetrical Corneal Reflex Present Bilateral Blink Present Cough/Gag Normal Babinski Reflex Absent Bilateral Doll's-Eye Absent Neurological Comment: Patient is alert and oriented to person, place, time and situaiton Cardiovascular Assessment Signs and Symptoms Stomach Pain Rapid Heart Rate Abdominal Edema Heart Sounds S1 & S2 Pulse Rhythm Regular Jugular Vein Distention None Capillary Refill < 3 Seconds Circulatory Tenderness Description None Right Radial 2+ Left Radial 2+ Right Dorsalis Pedis 2+ Left Dorsalis Pedis 2+ Chest Pain Complaint No Has Confirmed Diagnosis of DVT, PE or No VTE VTE Prophylaxis PO Treatment Mechanical Prophylaxis No Contraindication No VTE Prophylaxis Not indicated-Anticoagulated or INR therapeutic Cardiac Monitoring Heart Rate 107 Monitoring Method Telemetry Rhythm Sinus Tachycardia MS Interval 0.17 QRS Interval 0.11 QT Interval 0.30 Monitor Number [id number] Policy Loan Calculator Limits 120/50 Strip placed in Chart Yes Monitor History Reviewed Yes Memory Cleared No Pacemaker Assessment Cardiac Comment: . Respiratory Assessment Respiratory Symptoms Tachycardia Effort Normal for Patient Spontaneous Non-Labored Depth Normal Respiratory Pattern Regular Chest Shape Normal Expansion Symmetrical All Lung Wells Clear Diminished Oxygen Delivery Method Room Air Oxygen Flow Rate (LPM) 2 Cough Description None Sputum Amount None Respiratory Comment: No cough or sputum noted at this time. Document 08/18/16 16:00 KMB (Rec: 08/18/16 18:23 KMB [id number]) Pain Assessment Pain Present Reports Pain Abdomen Pain Intensity 7 Description Ache Pain Intervention Medication Position Distraction Neurological Assessment Eye Opening Spontaneous Motor Obeys Commands Verbal Oriented Coma Scale Total 15 Neurologic Status Alert Patient Orientation Person Place Time Arousable To Name Speech Pattern Normal rate Normal rhythm Normal tone Appropriate Clear Coherent Patient Behavior Appropriate Cooperative Mood Description Calm Relaxed Appropriate Bilateral Pupil Size (mm) 3 Pupil [place] Equal Scleral Edema No All Four Limbs Strength Normal for Patient Fur Clipper Strength Equal Push/Pull Equal Numbness/Tingling No Facial Symmetry Symmetrical Corneal Reflex Present Bilateral Blink Present Cough/Gag Normal Babinski Reflex Absent Bilateral Doll's-Eye Absent Neurological Comment: Patient is alert and oriented to person, place, time and situaiton Cardiovascular Assessment Signs and Symptoms Stomach Pain Rapid Heart Rate Abdominal Edema Heart Sounds S1 & S2 Pulse Rhythm Regular Jugular Vein Distention None Capillary Refill < 3 Seconds Circulatory Tenderness Description None Right Radial 2+ Left Radial 2+ Right Dorsalis Pedis 2+ Left Dorsalis Pedis 2+ Chest Pain Complaint No Has Confirmed Diagnosis of DVT, PE or No VTE VTE Prophylaxis PO Treatment Mechanical Prophylaxis No Contraindication No VTE Prophylaxis Not indicated-Anticoagulated or INR therapeutic Cardiac Monitoring Heart Rate 99 Monitoring Method Telemetry Rhythm Sinus Rhythm Ectopy Occasional PVC's MS Interval 0.18 QRS Interval 0.10 QT Interval 0.31 Monitor Number [id number] Policy Loan Calculator Limits 120/50 Strip placed in Chart Yes Monitor History Reviewed Yes Memory Cleared No Pacemaker Assessment Cardiac Comment: . Respiratory Assessment Respiratory Symptoms Tachycardia Effort Normal for Patient Spontaneous Non-Labored Depth Normal Respiratory Pattern Regular Chest Shape Normal Expansion Symmetrical All Lung Wells Clear Diminished Oxygen Delivery Method Room Air Cough Description None Sputum Amount None Gastrointestinal Assessment Abdomen Description Round Firm Distended Tender 3 or more loose stools, in less than 24 No hours Nausea/Vomiting Presence None GI Comment: . All Four Quadrants Active Flatus Presence Present Genitourinary Assessment Genitourinary Symptoms None Bladder Pattern Normal Incontinence Urge Voiding Method Toilet Urinal Bladder Distention None Suprapubic Tenderness with Palpation No Comment: No urine assessed at this time Integumentary Assessment Nail Bed Appearance [place] Temperature Warm Moisture Dry Turgor Normal Color Normal All Pressure Points Assessed Yes Evidence of Incision/Wounds/Breakdown No Mucous membranes moist, pink and intact Yes Oral Cavity Missing Teeth Integumentary Comment: Pt states he "has dentures but does not wear them". Musculoskeletal Assessment Musculoskeletal Symptoms Generalized Weakness Musculoskeletal Comment: Patient reports using cane while ambulating Document 08/18/16 19:55 JKB (Rec: 08/18/16 22:20 [id number]) Pain Assessment Pain Present Reports Pain right side Pain Intensity 10 Description Tightness Pressure Tender Scale Used Numeric (1 - 10) Description of Site firm Pain Intervention Position Distraction Darkened Room Right Knee Pain Intensity 5 Abdomen Pain Intensity 10 Description Ache Tightness Pressure Tender Scale Used Numeric (1 - 10) Pain Intervention Medication Position Darkened Room Neurological Assessment Eye Opening Spontaneous Motor Obeys Commands Verbal Oriented Coma Scale Total 15 Neurologic Status Alert Patient Orientation Person Place Time Arousable To Name Speech Pattern Normal rate Normal rhythm Normal tone Appropriate Clear Coherent Patient Behavior Appropriate Cooperative Mood Description Calm Relaxed Appropriate Bilateral Pupil Size (mm) 3 Pupil [place] Equal Scleral Edema No All Four Limbs Strength Normal for Patient Fur Clipper Strength Equal Push/Pull Equal Numbness/Tingling No Facial Symmetry Symmetrical Corneal Reflex Present Bilateral Blink Present Cough/Gag Normal Babinski Reflex Absent Bilateral Doll's-Eye Absent Neurological Comment: Patient is alert and oriented to person, place, time and situaiton Cardiovascular Assessment Signs and Symptoms Stomach Pain Rapid Heart Rate Abdominal Edema Heart Sounds S1 & S2 Pulse Rhythm Regular Jugular Vein Distention None Capillary Refill < 3 Seconds Circulatory Tenderness Description None Right Radial 2+ Left Radial 2+ Right Dorsalis Pedis 2+ Left Dorsalis Pedis 2+ Chest Pain Complaint No Has Confirmed Diagnosis of DVT, PE or No VTE VTE Prophylaxis PO Treatment Mechanical Prophylaxis No Contraindication No VTE Prophylaxis Not indicated-Anticoagulated or INR therapeutic Cardiac Monitoring Heart Rate 101 Monitoring Method Telemetry Rhythm Sinus Rhythm MS Interval 0.20 QRS Interval 0.10 QT Interval 0.30 Monitor Number [id number] Policy Loan Calculator Limits 120/50 Strip placed in Chart Yes Monitor History Reviewed Yes Memory Cleared No Respiratory Assessment Respiratory Symptoms Tachycardia Effort Normal for Patient Spontaneous Non-Labored Depth Normal Respiratory Pattern Regular Chest Shape Normal Expansion Symmetrical All Lung Wells Clear Diminished Oxygen Delivery Method Room Air Cough Description None Sputum Amount None Respiratory Comment: No cough or sputum noted at this time. Gastrointestinal Assessment Abdomen Description Round Firm Distended Tender 3 or more loose stools, in less than 24 No hours Nausea/Vomiting Presence None All Four Quadrants Active Flatus Presence Present Genitourinary Assessment Genitourinary Symptoms None Bladder Pattern Normal Incontinence Urge Voiding Method Toilet Urinal Urine Appearance Clear Color Pale Odor Normal Bladder Distention None Suprapubic Tenderness with Palpation No Comment: No urine assessed at this time Integumentary Assessment Nail Bed Appearance [place] Temperature Warm Moisture Dry Turgor Normal Color Normal All Pressure Points Assessed Yes Evidence of Incision/Wounds/Breakdown No Mucous membranes moist, pink and intact Yes Oral Cavity Missing Teeth Integumentary Comment: Pt states he "has dentures but does not wear them". Musculoskeletal Assessment Musculoskeletal Symptoms Generalized Weakness Musculoskeletal Comment: Patient reports using cane while ambulating Document 08/19/16 05:10 [facility] (Rec: 08/19/16 08:23 [facility] [id number]) Pain Assessment Pain Present Reports Pain right side Pain Intensity 10 Description Tightness Pressure Tender Abdomen Pain Intensity 10 Description Ache Tightness Tender Pain Intervention Medication Position Distraction Reduced Environmental Stimuli Darkened Room Neurological Assessment Eye Opening Spontaneous Motor Obeys Commands Verbal Oriented Coma Scale Total 15 Neurologic Status Alert Patient Orientation Person Place Time Arousable To Name Speech Pattern Normal rate Normal rhythm Normal tone Appropriate Clear Coherent Patient Behavior Appropriate Cooperative Mood Description Calm Relaxed Appropriate Bilateral Pupil Size (mm) 3 Pupil [place] Equal Scleral Edema No All Four Limbs Strength Normal for Patient Fur Clipper Strength Equal Push/Pull Equal Numbness/Tingling No Facial Symmetry Symmetrical Corneal Reflex Present Bilateral Blink Present Cough/Gag Normal Babinski Reflex Absent Bilateral Doll's-Eye Absent Neurological Comment: Patient is alert and oriented to person, place, time and situaiton Cardiovascular Assessment Signs and Symptoms Stomach Pain Rapid Heart Rate Abdominal Edema Heart Sounds S1 & S2 Pulse Rhythm Regular Jugular Vein Distention None Capillary Refill < 3 Seconds Circulatory Tenderness Description None Right Radial 2+ Left Radial 2+ Right Dorsalis Pedis 2+ Left Dorsalis Pedis 2+ Chest Pain Complaint No Has Confirmed Diagnosis of DVT, PE or No VTE VTE Prophylaxis PO Treatment Mechanical Prophylaxis No Contraindication No VTE Prophylaxis Not indicated-Anticoagulated or INR therapeutic Cardiac Monitoring Heart Rate 97 Monitoring Method Telemetry Rhythm Sinus Rhythm Ectopy Occasional PVC's MS Interval 0.17 QRS Interval 0.11 QT Interval 0.35 Monitor Number [id number] Policy Loan Calculator Limits 120/50 Strip placed in Chart Yes Monitor History Reviewed Yes Memory Cleared No Pacemaker Assessment Cardiac Comment: . Respiratory Assessment Respiratory Symptoms Tachycardia Effort Normal for Patient Spontaneous Non-Labored Depth Normal Respiratory Pattern Regular Chest Shape Normal Expansion Symmetrical All Lung Wells Clear Diminished Oxygen Delivery Method Room Air Oxygen Flow Rate (LPM) 2 Cough Description None Sputum Amount None Respiratory Comment: No cough or sputum noted at this time. Gastrointestinal Assessment Abdomen Description Round Firm Distended Tender 3 or more loose stools, in less than 24 No hours Nausea/Vomiting Presence None GI Comment: . All Four Quadrants Active Flatus Presence Present Genitourinary Assessment Genitourinary Symptoms None Bladder Pattern Normal Incontinence Urge Voiding Method Toilet Urinal Urine Appearance Clear Color Pale Odor Normal Bladder Distention None Suprapubic Tenderness with Palpation No Comment: No urine assessed at this time Integumentary Assessment Nail Bed Appearance [place] Temperature Warm Moisture Dry Turgor Normal Color Normal All Pressure Points Assessed Yes Evidence of Incision/Wounds/Breakdown No Mucous membranes moist, pink and intact Yes Oral Cavity Missing Teeth Integumentary Comment: Pt states he "has dentures but does not wear them". Musculoskeletal Assessment Musculoskeletal Symptoms Generalized Weakness Musculoskeletal Comment: Patient reports using cane while ambulating Document 08/19/16 08:20 [facility] (Rec: 08/19/16 09:46 T [id number]) Pain Assessment Pain Present Reports Pain Abdomen Pain Intensity 8 Description Sharp Scale Used Numeric (1 - 10) Pain Intervention Position Distraction Reduced Environmental Stimuli Darkened Room Neurological Assessment Eye Opening Spontaneous Motor Obeys Commands Verbal Oriented Coma Scale Total 15 Neurologic Status Alert Patient Orientation Person Place Time Arousable To Name Speech Pattern Normal rate Normal rhythm Normal tone Appropriate Clear Coherent Patient Behavior Appropriate Cooperative Mood Description Calm Relaxed Bilateral Pupil Reaction Reactive Pupil Size (mm) 3 Pupil [place] Equal Scleral Edema No All Four Limbs Strength Normal for Patient Fur Clipper Strength Equal Push/Pull Equal Numbness/Tingling No Facial Symmetry Symmetrical Cardiovascular Assessment Signs and Symptoms None Heart Sounds S1 & S2 Pulse Rhythm Regular Jugular Vein Distention None Capillary Refill < 3 Seconds Right Radial 2+ Left Radial 2+ Right Dorsalis Pedis 2+ Left Dorsalis Pedis 2+ Has Confirmed Diagnosis of DVT, PE or No VTE VTE Prophylaxis PO Treatment Mechanical Prophylaxis No Reason Mechanical Device Not Applied Refused by patient Cardiac Monitoring Heart Rate 97 Monitoring Method Telemetry Rhythm Sinus Rhythm MS Interval 0.13 QRS Interval 0.07 QT Interval 0.31 Monitor Number [id number] Policy Loan Calculator Limits 120/50 Strip placed in Chart Yes Monitor History Reviewed Yes Memory Cleared No Respiratory Assessment Respiratory Symptoms None Effort Normal for Patient Spontaneous Non-Labored Depth Normal Respiratory Pattern Regular Chest Shape Normal Expansion Symmetrical All Lung Wells Clear Diminished Oxygen Delivery Method Room Air Cough Description None Sputum Amount None Gastrointestinal Assessment Abdomen Description Round Firm Tender 3 or more loose stools, in less than 24 No hours Nausea/Vomiting Presence None All Four Quadrants Active Flatus Presence Present Genitourinary Assessment Genitourinary Symptoms None Bladder Pattern Normal Voiding Method Toilet Urinal Bladder Distention None Suprapubic Tenderness with Palpation No Integumentary Assessment Nail Bed Appearance [place] Temperature Warm Moisture Dry Turgor Normal Color Normal All Pressure Points Assessed Yes Evidence of Incision/Wounds/Breakdown No Mucous membranes moist, pink and intact Yes Oral Cavity Missing Teeth Musculoskeletal Assessment Musculoskeletal Symptoms Generalized Weakness Teaching Record Start: 08/11/16 01: 11 Freq: Q12H Status: Discharge Document 08/11/16 01:30 CRS (Rec: 08/11/16 03:07 CRS [id number]) Teaching Record: General Education Topics Medications Disease Process Hospital Environment Diet Exercise/Activity Response Return demonstration Verbalize understanding Methods Discussion Recipient Patient Family Education Provided: Details admission Document 08/11/16 08:50 SLT (Rec: 08/11/16 11:04 SLT [id number]) Teaching Record: General Education Topics Disease Process Hospital Environment Diet Exercise/Activity Response Verbalize understanding Methods Discussion Recipient Patient Family Document 08/11/16 21:12 [id number] (Rec: 08/12/16 06:02 [id number]) Teaching Record: General Education Topics Medications Hospital Environment Diet Exercise/Activity Response Verbalize understanding Methods Discussion Recipient Patient Education Provided: Details discussed evening medication, importance of diet and activity, as well as importance of using call light Document 08/12/16 08:00 SLT (Rec: 08/12/16 09:34 SLT [id number]) Teaching Record: General Education Topics Medications Hospital Environment Diet Exercise/Activity Signs/Symptoms Response Verbalize understanding Methods Discussion Recipient Patient Document 08/12/16 22:14 [id number] (Rec: 08/13/16 03:35 [id number]) Teaching Record: General Education Topics Medications Hospital Environment Diet Response Verbalize understanding Methods Discussion Recipient Patient Education Provided: Details discussed evening medications and use of hospital equipment with patient, also discussed dietary measures to help control blood glucose Document 08/13/16 08:00 RDC (Rec: 08/13/16 09:54 [id number] Teaching Record: General Education Topics Medications Response Verbalize understanding Methods Discussion Recipient Patient Education Provided: Details Discussed the importance of taking his lactulose. Patient refused. Explained to patient the risks of what can happen if his potassium continues to rise. Document 08/13/16 20:22 [facility] (Rec: 08/13/16 20:25 [facility] [id number]) Teaching Record: General Education Topics Medications Response Verbalize understanding Methods Discussion Recipient Patient Education Provided: Details educated on importance of lactulose, however pt continues to refuse. additionally educated on insulin drip and importance of low sugar PO intake. Document 08/14/16 08:34 EPR (Rec: 08/14/16 08:38 EPR [id number]) Teaching Record: General Education Topics Medications Response Verbalize understanding Methods Discussion Recipient Patient Education Provided: Details educated on importance of lactulose, however pt continues to refuse. additionally educated on insulin drip and importance of low sugar PO intake. Insline gtt continues at this time Document 08/14/16 22:02 RDC (Rec: 08/14/16 22:05 [id number] Teaching Record: General Education Topics Medications Response Verbalize understanding Methods Discussion Recipient Patient Education Provided: Details Pt refuses lactulose. States he has had several BMs today. This nurse educated him on the fact that not taking his lactulose could make his potassium and ammonia levels rise. No other needs at this time. Document 08/15/16 08:54 [facility] (Rec: 08/15/16 08:56 [id number] Teaching Record: General Education Topics Medications Response Verbalize understanding Reinforcement needed Methods Discussion Recipient Patient Education Provided: Details educated on AM medications and ordered lactulose.. pt continues to refuse lactulose. Document 08/15/16 11:45 RDC (Rec: 08/15/16 13:42 [id number] Teaching Record: General Education Topics Medications Response Verbalize understanding Methods Discussion Recipient Patient Education Provided: Details Discussed patients insulin with patient no needs at this time Document 08/15/16 20:00 BEF (Rec: 08/15/16 22:40 BEF [id number]) Teaching Record: General Education Topics Medications Response Verbalize understanding Methods Discussion Recipient Patient Education Provided: Details Discussed evening medications with pt. Document 08/16/16 08:30 RDC (Rec: 08/16/16 10:06 RDC [facility] [id number]) Teaching Record: General Education Topics Medications Response Verbalize understanding Methods Discussion Recipient Patient Education Provided: Details Went over AM medications. NO needs at this time. Document 08/16/16 21:40 BEF (Rec: 08/17/16 00:18 BEF [facility] [id number] Teaching Record: General Education Topics Medications Response Verbalize understanding Methods Discussion Recipient Patient Education Provided: Details Discussed evening medications with pt. Document 08/17/16 09:10 AYW (Rec: 08/17/16 10:06 AYW [facility] [id number]) Teaching Record: General Education Topics Medications Response Verbalize understanding Methods Discussion Recipient Patient Education Provided: Details discussed risks associated with not taking lactulose as ordered Document 08/18/16 06:19 KMA (Rec: 08/18/16 06:23 KMA [facility] [id number]) Teaching Record: General Education Topics Medications Equipment Use Response Verbalize understanding Methods Discussion Recipient Patient Education Provided: Details Reviewed pain medication orders. Oriented to call light . Using appropriately. Document 08/18/16 08:57 KMB (Rec: 08/18/16 09:05 KMB [facility] [id number]) Teaching Record: General Education Topics Medications Hospital Environment Diet Equipment Use Response Verbalize understanding Methods Discussion Recipient Patient Education Provided: Details Medicaitons discussed prior to administration, diet and activity. Enocuraged to use call light for assistance. Document 08/19/16 08:20 SLT (Rec: 08/19/16 09:46 SLT [facility] [id number]) Teaching Record: General Education Topics Medications Hospital Environment Diet Signs/Symptoms Response Verbalize understanding Methods Discussion Recipient Patient Thrombosis Risk Factor Assessment Start: 08/11/16 01: 11 Freq: .ONCE Status: Complete Document 08/11/16 01:11 CRS (Rec: 08/11/16 01:18 CRS [facility] [id number]) Thrombosis Risk Factor Assessment Each Factor Represents 1 point Obesity (BMI > 25) Abnormal pulmonary function ( COPD) Other Risk Factors No Each Risk Factor Represents 2 Points Age 60 - 74 years Each Risk Factor Represents 3 Points History of DVT/PE Other congenital or acquired No thrombophilia - If yes, enter Type in comment Total Risk Factor Score 7 Risk Level Highest Risk Triage Start: 08/10/16 20: 04 Freq: Status: Discharge Document 08/10/16 20:04 TAB (Rec: 08/10/16 21:18 TAB [id number]) Triage Chief Complaint triage ED Abdominal Pain Patient Stated Complaint "abdominal pain" ROSA 3 Onset (ago) day(s) Description of Symptoms "pain is worse today, ongoing abdominal pain" General Appearance alert Work Related Injury? No Mode of arrival EMS Source EMS Limitations no limitations Ebola Risk: Travel/Contact With Anyone No From Affected Area/s Has Patient Experienced Ebola Symptoms No Temperature (97.6 F-99.6 F) 98.6 F Temperature Source Oral Pulse Rate 101 Respiratory Rate 16 Blood Pressure 109/53 O2 Sat by Pulse Oximetry (95-100) 96 Oxygen Delivery Nasal Cannula Height 1.73 m Weight 108.862 kg Weight Measurement Method Stated by Patient Pain Scale 7 Pain Scale Used Standard (1-10) Medical history cirrhosis CHF COPD coronary artery disease diabetes hyperlipidemia hypertension TIA Male surgical history appendectomy cholecystectomy knee replacement Tonsillectomy other Psychiatric history anxiety depression PTSD Smoking Status Never smoker Smokeless Tobacco Status No Alcohol Use none Drug Use none Patient resides with/at [facility] Safety Concerns Feels Safe At This Time Do you currently feel hopless, have No thoughts of self harm, or thoughts of harming others History of fall in last 14 days? No Influenza vaccine up to date Yes Pneumonia vaccine up to date Yes Tetanus UTD yes Coma Scale Eye Opening Spontaneous Coma Scale Motor Response Obeys Commands Coma Scale Verbal Response Oriented Coma Scale Total 15 Mother Family Member Living Status Hx Family Cancer Yes Urinary catheter discontinuation Start: 08/13/16 09: 27 Freq: now Status: Complete Document 08/13/16 08:00 RD (Rec: 08/13/16 09:54 [id number]) Urinary catheter initiation/management Start: 08/11/16 08: 11 Freq: .NOW Status: Complete Document 08/11/16 08:30 AAS (Rec: 08/11/16 09:07 AAS [id number]) Urinary Catheter Assessment Mendez Inserted Using Sterile Technique Yes Urethral (Mendez) Date of Insertion 08/11/16 Indication catheter insertion strict urinary output measurement Catheter Present on Admission No Size ([place] Islander) 16 swedish Catheter Balloon Amount (ml) 10 Patency Patent/Draining Catheter Securement Device in Place Yes Leg Bag Applied No Urine Appearance Clear Color Dark Yellow Odor Normal Output, Urine Amount 100 Document 08/11/16 16:07 SLT (Rec: 08/11/16 16:21 SLT [id number]) Urinary Catheter Assessment Urethral (Mendez) Date of Insertion 08/11/16 Indication catheter insertion strict urinary output measurement Catheter Present on Admission No Size ([place]) 16 swedish Patency Patent/Draining Catheter Securement Device in Place Yes Leg Bag Applied No Urine Appearance Clear Color Dark Yellow Document 08/11/16 21:12 [id number] (Rec: 08/12/16 06:02 [id number]) Urinary Catheter Assessment Urethral (Mendez) Date of Insertion 08/11/16 Indication catheter insertion strict urinary output measurement Catheter Present on Admission No Size ([place]) 16 swedish Patency Patent/Draining Catheter Securement Device in Place Yes Leg Bag Applied No Urine Appearance Clear Color Dark Yellow Document 08/11/16 23:50 [id number] (Rec: 08/12/16 06:04 [id number]) Urinary Catheter Assessment Urethral (Mendez) Date of Insertion 08/11/16 Indication catheter insertion strict urinary output measurement Catheter Present on Admission No Size ([place]) 16 swedish Patency Patent/Draining Catheter Securement Device in Place Yes Leg Bag Applied No Urine Appearance Clear Color Dark Yellow Document 08/13/16 09:58 RDC (Rec: 08/13/16 09:58 RDC [id number]) Urinary Catheter Assessment Urethral (Mendez) Date of Insertion 08/11/16 Indication catheter insertion strict urinary output measurement Catheter Present on Admission No Size ([place]) 16 swedish Patency Patent/Draining Catheter Securement Device in Place Yes Leg Bag Applied No Urine Appearance Clear Color Dark Yellow Date Urinary Catheter Discontinued 08/13/16 Time Urinary Catheter Discontinued 09:58 Able to Void After Catheter Discontinued Yes Vital Signs Assessment Start: 08/10/16 20: 04 Freq: Status: Discharge Document 08/10/16 20:04 TAB (Rec: 08/10/16 21:18 TAB [id number]) ED Vital Signs Pain Reported Pain Reported Pain Scale 7 Pain Scale Used Standard (1-10) Blood Pressure 109/53 Blood Pressure Location Left Arm Source Automatic Cuff Position HOB Elevated Pulse Rate 101 Rhythm Regular Strength Normal Respiratory Rate 16 Depth Normal Effort Non-Labored Pattern Regular Pulse Oximetry (95-100) 96 Oxygen Delivery Nasal Cannula Oxygen Flow Rate (LPM) 2 Document 08/10/16 21:04 TAB (Rec: 08/10/16 21:43 TAB [id number]) ED Vital Signs Pain Reported Pain Reported Pain Scale 7 Pain Scale Used Standard (1-10) Blood Pressure 112/64 Blood Pressure Location Left Arm Source Automatic Cuff Position HOB Elevated Pulse Rate 83 Rhythm Regular Strength Normal Respiratory Rate 16 Depth Normal Pulse Oximetry (95-100) 97 Oxygen Delivery Nasal Cannula Oxygen Flow Rate (LPM) 2 Document 08/10/16 21:30 TAB (Rec: 08/11/16 00:31 TAB [id number]) ED Vital Signs Pain Reported Pain Reported Pain Scale 6 Pain Scale Used Standard (1-10) Blood Pressure 109/57 Blood Pressure Location Left Arm Source Automatic Cuff Position HOB Elevated Pulse Rate 85 Rhythm Regular Strength Normal Respiratory Rate 16 Depth Normal Effort Non-Labored Pattern Regular Pulse Oximetry (95-100) 97 Oxygen Delivery Nasal Cannula Oxygen Flow Rate (LPM) 2 Document 08/10/16 22:00 TAB (Rec: 08/11/16 00:32 TAB [id number]) ED Vital Signs Pain Reported Pain Reported Pain Scale 7 Pain Scale Used Standard (1-10) Blood Pressure 109/54 Blood Pressure Location Left Arm Source Automatic Cuff Position HOB Elevated Pulse Rate 89 Rhythm Regular Strength Normal Respiratory Rate 16 Depth Normal Effort Non-Labored Pattern Regular Pulse Oximetry (95-100) 97 Oxygen Delivery Nasal Cannula Oxygen Flow Rate (LPM) 2 Document 08/10/16 23:30 TAB (Rec: 08/11/16 00:34 TAB [id number]) ED Vital Signs Pain Reported Pain Reported Pain Scale 7 Pain Scale Used Standard (1-10) Blood Pressure 122/60 Blood Pressure Location Left Arm Source Automatic Cuff Position HOB Elevated Pulse Rate 87 Rhythm Regular Strength Normal Respiratory Rate 16 Depth Normal Effort Non-Labored Pattern Regular Pulse Oximetry (95-100) 97 Oxygen Delivery Nasal Cannula Oxygen Flow Rate (LPM) 2 Vital Signs Assessment Start: 08/11/16 01: 11 Freq: Q4H Status: Discharge Document 08/11/16 01:30 CDP (Rec: 08/11/16 01:40 CDP [id number]) Vital Signs with MEWS Temperature (97.6 F-99.6 F) 99.4 F Temperature Source Oral Pulse Rate 80 Respiratory Rate 22 Pulse Oximetry (95-100) 97 Oxygen Delivery Nasal Cannula Oxygen Flow Rate (LPM) 3 Blood Pressure 86/52 Blood Pressure Location Right Arm Source Automatic Cuff Position HOB Elevated Neuro Status *recalled from last Alert documentation MEWS Score 3 Document 08/11/16 02:52 CRS (Rec: 08/11/16 02:52 CRS [id number]) Vital Signs with MEWS Temperature (97.6 F-99.6 F) 98.6 F Temperature Source Axillary Pulse Rate 76 Respiratory Rate 20 Pulse Oximetry (95-100) 97 Oxygen Delivery Nasal Cannula Oxygen Flow Rate (LPM) 2 Blood Pressure 99/62 Neuro Status *recalled from last Alert documentation MEWS Score 2 Document 08/11/16 04:33 CDP (Rec: 08/11/16 04:39 CDP [id number]) Vital Signs with MEWS Temperature (97.6 F-99.6 F) 98.2 F Temperature Source Oral Pulse Rate 80 Respiratory Rate 22 Pulse Oximetry (95-100) 97 Oxygen Delivery Nasal Cannula Oxygen Flow Rate (LPM) 2 Blood Pressure 87/52 Blood Pressure Location Left Arm Source Automatic Cuff Position HOB Elevated Neuro Status *recalled from last Alert documentation MEWS Score 3 Document 08/11/16 08:01 JRK (Rec: 08/11/16 08:02 JRK [id number]) Vital Signs with MEWS Temperature (97.6 F-99.6 F) 98.1 F Temperature Source Oral Pulse Rate 82 Respiratory Rate 20 Pulse Oximetry (95-100) 96 Oxygen Delivery Nasal Cannula Oxygen Flow Rate (LPM) 3 Blood Pressure 88/64 Blood Pressure Location Left Arm Source Automatic Cuff Position Supine Neuro Status *recalled from last Alert documentation MEWS Score 2 Document 08/11/16 11:55 JRK (Rec: 08/11/16 11:55 JRK [id number]) Vital Signs with MEWS Temperature (97.6 F-99.6 F) 98.4 F Temperature Source Oral Pulse Rate 88 Respiratory Rate 17 Pulse Oximetry (95-100) 92 L Blood Pressure 91/57 Blood Pressure Location Left Arm Source Automatic Cuff Position Supine Neuro Status *recalled from last Alert documentation MEWS Score 2 Document 08/11/16 15:43 JRK (Rec: 08/11/16 15:46 JRK [id number]) Vital Signs with MEWS Temperature (97.6 F-99.6 F) 98.0 F Temperature Source Oral Pulse Rate 88 Respiratory Rate 18 Pulse Oximetry (95-100) 93 L Oxygen Delivery Room Air Blood Pressure 101/65 Blood Pressure Location Left Arm Source Automatic Cuff Position Supine Neuro Status *recalled from last Alert documentation MEWS Score 1 Document 08/11/16 21:56 SPG (Rec: 08/11/16 21:59 SPG [id number]) Vital Signs with MEWS Temperature (97.6 F-99.6 F) 97.8 F Temperature Source Oral Pulse Rate 97 Respiratory Rate 16 Pulse Oximetry (95-100) 94 L Oxygen Delivery Room Air Blood Pressure 120/74 Blood Pressure Location Right Arm Source Automatic Cuff Position Supine Neuro Status *recalled from last Alert documentation MEWS Score 1 Document 08/12/16 00:07 SPG (Rec: 08/12/16 00:09 SPG [id number]) Vital Signs with MEWS Temperature (97.6 F-99.6 F) 97.6 F Temperature Source Oral Pulse Rate 103 Respiratory Rate 18 Pulse Oximetry (95-100) 95 Oxygen Delivery Room Air Blood Pressure 123/72 Blood Pressure Location Left Arm Source Automatic Cuff Position Supine Neuro Status *recalled from last Alert documentation MEWS Score 2 Document 08/12/16 05:17 SPG (Rec: 08/12/16 05:18 SPG [id number]) Vital Signs with MEWS Temperature (97.6 F-99.6 F) 98.1 F Temperature Source Oral Pulse Rate 93 Respiratory Rate 18 Pulse Oximetry (95-100) 95 Oxygen Delivery Room Air Blood Pressure 126/72 Blood Pressure Location Right Arm Source Automatic Cuff Position Supine Neuro Status *recalled from last Alert documentation MEWS Score 1 Document 08/12/16 07:43 MVJ (Rec: 08/12/16 07:45 MVJ [id number]) Vital Signs with MEWS Temperature (97.6 F-99.6 F) 98.2 F Temperature Source Oral Pulse Rate 99 Respiratory Rate 18 Pulse Oximetry (95-100) 95 Blood Pressure 127/77 Blood Pressure Location Left Arm Document 08/12/16 11:20 MVJ (Rec: 08/12/16 11:26 MVJ [id number]) Vital Signs with MEWS Temperature (97.6 F-99.6 F) 97.3 F L Temperature Source Oral Pulse Rate 110 Respiratory Rate 18 Pulse Oximetry (95-100) 95 Blood Pressure 136/75 Blood Pressure Location Right Arm Document 08/12/16 16:00 MVJ (Rec: 08/12/16 16:04 MVJ [facility]) Vital Signs with MEWS Temperature (97.6 F-99.6 F) 98.0 F Temperature Source Oral Pulse Rate 98 Respiratory Rate 18 Pulse Oximetry (95-100) 96 Blood Pressure 136/73 Blood Pressure Location Right Radial Artery Document 08/12/16 21:35 SPG (Rec: 08/12/16 21:36 [facility] Vital Signs with MEWS Temperature (97.6 F-99.6 F) 97.8 F Temperature Source Oral Pulse Rate 101 Respiratory Rate 16 Oxygen Delivery Room Air Blood Pressure 144/83 Blood Pressure Location Right Arm Source Automatic Cuff Position Supine Neuro Status *recalled from last Alert documentation Document 08/13/16 01:06 SPG (Rec: 08/13/16 01:08 [facility] Vital Signs with MEWS Temperature (97.6 F-99.6 F) 97.5 F L Temperature Source Oral Pulse Rate 106 Respiratory Rate 20 Pulse Oximetry (95-100) 95 Oxygen Delivery Room Air Blood Pressure 174/94 Blood Pressure Location Right Arm Source Automatic Cuff Position Sitting Neuro Status *recalled from last Alert documentation MEWS Score 2 Document 08/13/16 05:27 SPG (Rec: 08/13/16 05:29 SPG [facility]) Vital Signs with MEWS Temperature (97.6 F-99.6 F) 98.4 F Temperature Source Oral Pulse Rate 97 Respiratory Rate 20 Pulse Oximetry (95-100) 91 L Oxygen Delivery Room Air Blood Pressure 139/81 Blood Pressure Location Right Arm Source Arterial Line Position Supine Neuro Status *recalled from last Alert documentation MEWS Score 1 Document 08/13/16 07:11 CDB (Rec: 08/13/16 07:12 CDB [facility]) Vital Signs with MEWS Temperature (97.6 F-99.6 F) 98.5 F Temperature Source Oral Pulse Rate 112 Respiratory Rate 18 Pulse Oximetry (95-100) 96 Oxygen Delivery Room Air Blood Pressure 173/93 Blood Pressure Location Right Arm Source Automatic Cuff Position Supine Neuro Status *recalled from last Alert documentation MEWS Score 3 Document 08/13/16 11:18 CDB (Rec: 08/13/16 11:19 CDB [id number]) Vital Signs with MEWS Temperature (97.6 F-99.6 F) 97.5 F L Temperature Source Oral Pulse Rate 98 Respiratory Rate 16 Pulse Oximetry (95-100) 97 Oxygen Delivery Room Air Blood Pressure 125/74 Blood Pressure Location Left Arm Source Automatic Cuff Position Supine Neuro Status *recalled from last Alert documentation MEWS Score 1 Document 08/13/16 16:15 CDB (Rec: 08/13/16 16:16 CDB [id number]) Vital Signs with MEWS Temperature (97.6 F-99.6 F) 97.7 F Temperature Source Oral Pulse Rate 99 Respiratory Rate 16 Pulse Oximetry (95-100) 97 Oxygen Delivery Room Air Blood Pressure 143/70 Blood Pressure Location Left Arm Source Automatic Cuff Position Supine Neuro Status *recalled from last Alert documentation MEWS Score 1 Document 08/13/16 21:28 TLS (Rec: 08/13/16 21:29 TLS [facility] [id number] Vital Signs with MEWS Temperature (97.6 F-99.6 F) 98.2 F Temperature Source Oral Pulse Rate 108 Respiratory Rate 16 Pulse Oximetry (95-100) 95 Oxygen Delivery Room Air Blood Pressure 151/80 Blood Pressure Location Left Arm Source Automatic Cuff Position HOB Elevated Neuro Status *recalled from last Alert documentation MEWS Score 2 Document 08/14/16 01:06 BAW (Rec: 08/14/16 01:06 BAW [id number]) Vital Signs with MEWS Temperature (97.6 F-99.6 F) 98.5 F Temperature Source Axillary Pulse Rate 99 Respiratory Rate 19 Pulse Oximetry (95-100) 90 L Oxygen Delivery Room Air Blood Pressure 134/84 Blood Pressure Location Right Arm Source Automatic Cuff Neuro Status *recalled from last Alert documentation MEWS Score 1 Document 08/14/16 06:10 BAW (Rec: 08/14/16 06:11 BAW [id number]) Vital Signs with MEWS Temperature (97.6 F-99.6 F) 97.9 F Temperature Source Oral Pulse Rate 108 Respiratory Rate 19 Pulse Oximetry (95-100) 93 L Oxygen Delivery Room Air Blood Pressure 134/87 Blood Pressure Location Left Femoral Artery Position Supine Neuro Status *recalled from last Alert documentation MEWS Score 2 Document 08/14/16 08:02 CDB (Rec: 08/14/16 08:03 CDB [facility]) Vital Signs with MEWS Temperature (97.6 F-99.6 F) 97.8 F Temperature Source Oral Pulse Rate 106 Respiratory Rate 18 Pulse Oximetry (95-100) 97 Oxygen Delivery Room Air Blood Pressure 137/72 Blood Pressure Location Left Arm Source Automatic Cuff Position Supine Neuro Status *recalled from last Alert documentation MEWS Score 2 Document 08/14/16 10:58 MVJ (Rec: 08/14/16 11:05 MVJ [facility]) Vital Signs with MEWS Temperature (97.6 F-99.6 F) 97.4 F L Temperature Source Oral Pulse Rate 105 Respiratory Rate 18 Pulse Oximetry (95-100) 94 L Blood Pressure 128/79 Blood Pressure Location Left Arm Document 08/14/16 12:00 CDB (Rec: 08/14/16 12:18 CDB [facility]) Vital Signs with MEWS Temperature (97.6 F-99.6 F) 97.7 F Temperature Source Oral Pulse Rate 108 Respiratory Rate 16 Pulse Oximetry (95-100) 93 L Oxygen Delivery Room Air Blood Pressure 153/78 Blood Pressure Location Left Arm Source Automatic Cuff Position Supine Neuro Status *recalled from last Alert documentation MEWS Score 2 Document 08/14/16 16:21 CDB (Rec: 08/14/16 16:21 CDB [facility]) Vital Signs with MEWS Temperature (97.6 F-99.6 F) 98 F Temperature Source Oral Pulse Rate 110 Respiratory Rate 16 Pulse Oximetry (95-100) 95 Oxygen Delivery Room Air Blood Pressure 151/68 Blood Pressure Location Left Arm Source Automatic Cuff Position Supine Neuro Status *recalled from last Alert documentation MEWS Score 2 Document 08/14/16 21:22 HMF (Rec: 08/14/16 21:31 HMF [facility]) Vital Signs with MEWS Temperature (97.6 F-99.6 F) 97.9 F Temperature Source Axillary Pulse Rate 101 Respiratory Rate 18 Pulse Oximetry (95-100) 99 Oxygen Delivery Nasal Cannula Oxygen Flow Rate (LPM) 2 Blood Pressure 144/79 Blood Pressure Location Left Arm Source Automatic Cuff Position Supine Neuro Status *recalled from last Alert documentation MEWS Score 2 Document 08/14/16 22:10 [facility] (Rec: 08/14/16 22:10 [facility] [id number]) Vital Signs with MEWS Pulse Oximetry (95-100) 99 Oxygen Delivery Nasal Cannula Oxygen Flow Rate (LPM) 2 Document 08/14/16 23:15 HMF (Rec: 08/14/16 23:22 [facility] Vital Signs with MEWS Temperature (97.6 F-99.6 F) 97.9 F Temperature Source Axillary Pulse Rate 90 Respiratory Rate 18 Pulse Oximetry (95-100) 93 L Oxygen Delivery Room Air Blood Pressure 143/72 Blood Pressure Location Right Arm Source Automatic Cuff Position Supine Neuro Status *recalled from last Alert documentation MEWS Score 1 Document 08/15/16 04:13 HMF (Rec: 08/15/16 04:20 HMF [id number]) Vital Signs with MEWS Temperature (97.6 F-99.6 F) 98.1 F Temperature Source Axillary Pulse Rate 90 Respiratory Rate 18 Pulse Oximetry (95-100) 94 L Oxygen Delivery Room Air Blood Pressure 150/73 Blood Pressure Location Left Arm Source Automatic Cuff Position Supine Neuro Status *recalled from last Alert documentation MEWS Score 1 Document 08/15/16 07:27 LHG (Rec: 08/15/16 07:31 LHG [facility]) Vital Signs with MEWS Temperature (97.6 F-99.6 F) 98.3 F Temperature Source Oral Pulse Rate 100 Respiratory Rate 18 Pulse Oximetry (95-100) 94 L Oxygen Delivery Room Air Blood Pressure 124/78 Blood Pressure Location Left Arm Source Automatic Cuff Position HOB Elevated Neuro Status *recalled from last Alert documentation MEWS Score 1 Document 08/15/16 11:31 APF (Rec: 08/15/16 11:37 [facility] [place] Vital Signs with MEWS Temperature (97.6 F-99.6 F) 98.3 F Temperature Source Oral Pulse Rate 98 Respiratory Rate 18 Pulse Oximetry (95-100) 96 Oxygen Delivery Room Air Blood Pressure 104/65 Blood Pressure Location Left Radial Artery Source Automatic Cuff Position Right Lateral Neuro Status *recalled from last Alert documentation MEWS Score 1 Document 08/15/16 15:03 APF (Rec: 08/15/16 15:08 [facility] [place] Vital Signs with MEWS Temperature (97.6 F-99.6 F) 97.5 F L Temperature Source Oral Pulse Rate 111 Respiratory Rate 16 Pulse Oximetry (95-100) 94 L Oxygen Delivery Room Air Blood Pressure 135/77 Blood Pressure Location Left Arm Source Automatic Cuff Position HOB Elevated Neuro Status *recalled from last Alert documentation MEWS Score 3 Document 08/15/16 16:33 LHG (Rec: 08/15/16 16:40 LHG [id number]) Vital Signs with MEWS Temperature (97.6 F-99.6 F) 98.2 F Temperature Source Oral Pulse Rate 109 Respiratory Rate 18 Pulse Oximetry (95-100) 94 L Oxygen Delivery Room Air Blood Pressure 109/68 Blood Pressure Location Left Arm Source Automatic Cuff Position HOB Elevated Neuro Status *recalled from last Alert documentation MEWS Score 2 Document 08/15/16 18:48 ADD (Rec: 08/15/16 18:49 ADD [id number]) Vital Signs with MEWS Temperature (97.6 F-99.6 F) 98 F Temperature Source Oral Pulse Rate 110 Respiratory Rate 16 Pulse Oximetry (95-100) 93 L Blood Pressure 126/73 Source Automatic Cuff Position HOB Elevated Neuro Status *recalled from last Alert documentation MEWS Score 2 Document 08/16/16 00:50 HMF (Rec: 08/16/16 00:56 HMF [facility]) Vital Signs with MEWS Temperature (97.6 F-99.6 F) 98.0 F Temperature Source Axillary Pulse Rate 95 Respiratory Rate 18 Pulse Oximetry (95-100) 96 Oxygen Delivery Room Air Blood Pressure 122/73 Blood Pressure Location Left Arm Source Automatic Cuff Position Supine Neuro Status *recalled from last Alert documentation MEWS Score 1 Document 08/16/16 03:56 HMF (Rec: 08/16/16 04:01 HMF [facility] [id number]) Vital Signs with MEWS Temperature (97.6 F-99.6 F) 97.9 F Temperature Source Axillary Pulse Rate 98 Respiratory Rate 18 Pulse Oximetry (95-100) 92 L Oxygen Delivery Room Air Blood Pressure 107/72 Blood Pressure Location Left Arm Source Automatic Cuff Position Supine Neuro Status *recalled from last Alert documentation MEWS Score 1 Document 08/16/16 07:34 LHG (Rec: 08/16/16 07:39 LHG [id number]) Vital Signs with MEWS Temperature (97.6 F-99.6 F) 97.8 F Temperature Source Oral Pulse Rate 96 Respiratory Rate 18 Pulse Oximetry (95-100) 98 Oxygen Delivery Room Air Blood Pressure 161/78 Blood Pressure Location Right Radial Artery Source Automatic Cuff Position HOB Elevated Neuro Status *recalled from last Alert documentation MEWS Score 1 Document 08/16/16 11:00 LH (Rec: 08/16/16 11:32 [place] [id number]) Vital Signs with MEWS Temperature (97.6 F-99.6 F) 97.5 F L Temperature Source Oral Pulse Rate 103 Respiratory Rate 18 Pulse Oximetry (95-100) 95 Oxygen Delivery Room Air Blood Pressure 152/82 Blood Pressure Location Right Radial Artery Source Automatic Cuff Position HOB Elevated Neuro Status *recalled from last Alert documentation MEWS Score 2 Document 08/16/16 16:22 LH (Rec: 08/16/16 16:29 [place] [id number]) Vital Signs with MEWS Temperature (97.6 F-99.6 F) 97.5 F L Temperature Source Oral Pulse Rate 96 Respiratory Rate 18 Pulse Oximetry (95-100) 99 Oxygen Delivery Room Air Blood Pressure 147/82 Blood Pressure Location Right Arm Source Automatic Cuff Position HOB Elevated Neuro Status *recalled from last Alert documentation MEWS Score 1 Document 08/16/16 18:53 [facility] (Rec: 08/16/16 18:57 [place] [id number]) Vital Signs with MEWS Temperature (97.6 F-99.6 F) 97.9 F Temperature Source Oral Pulse Rate 96 Respiratory Rate 18 Pulse Oximetry (95-100) 95 Oxygen Delivery Room Air Blood Pressure 142/74 Blood Pressure Location Left Arm Source Automatic Cuff Position Supine Neuro Status *recalled from last Alert documentation MEWS Score 1 Document 08/16/16 22:55 HMF (Rec: 08/16/16 23:07 [place] [id number]) Vital Signs with MEWS Temperature (97.6 F-99.6 F) 98.1 F Temperature Source Oral Pulse Rate 109 Respiratory Rate 18 Pulse Oximetry (95-100) 96 Oxygen Delivery Room Air Blood Pressure 147/80 Blood Pressure Location Left Arm Source Automatic Cuff Position Supine Neuro Status *recalled from last Alert documentation MEWS Score 2 Document 08/17/16 03:05 HMF (Rec: 08/17/16 03:23 [place] [id number]) Vital Signs with MEWS Temperature (97.6 F-99.6 F) 98.0 F Temperature Source Axillary Pulse Rate 99 Respiratory Rate 20 Pulse Oximetry (95-100) 94 L Oxygen Delivery Room Air Blood Pressure 122/71 Blood Pressure Location Left Arm Source Automatic Cuff Position Supine Neuro Status *recalled from last Alert documentation MEWS Score 1 Document 08/17/16 07:16 VVP (Rec: 08/17/16 07:17 VVP [facility]) Vital Signs with MEWS Temperature (97.6 F-99.6 F) 98.3 F Temperature Source Oral Pulse Rate 76 Respiratory Rate 16 Pulse Oximetry (95-100) 93 L Oxygen Delivery Room Air Blood Pressure 135/81 Blood Pressure Location Left Arm Source Automatic Cuff Position Supine Neuro Status *recalled from last Alert documentation MEWS Score 1 Document 08/17/16 11:06 VVP (Rec: 08/17/16 11:10 VVP [facility]) Vital Signs with MEWS Temperature (97.6 F-99.6 F) 97.6 F Temperature Source Oral Pulse Rate 105 Respiratory Rate 18 Pulse Oximetry (95-100) 95 Oxygen Delivery Nasal Cannula Blood Pressure 136/81 Blood Pressure Location Right Arm Source Automatic Cuff Position Supine Neuro Status *recalled from last Alert documentation MEWS Score 2 Document 08/17/16 16:00 VVP (Rec: 08/17/16 16:00 VVP [facility]) Vital Signs with MEWS Temperature (97.6 F-99.6 F) 97.8 F Temperature Source Oral Pulse Rate 97 Respiratory Rate 17 Pulse Oximetry (95-100) 93 L Oxygen Delivery Room Air Blood Pressure 129/71 Blood Pressure Location Right Arm Neuro Status *recalled from last Alert documentation MEWS Score 1 Document 08/17/16 18:52 HMF (Rec: 08/17/16 19:15 HMF [facility]) Vital Signs with MEWS Temperature (97.6 F-99.6 F) 97.3 F L Temperature Source Oral Pulse Rate 110 Respiratory Rate 18 Pulse Oximetry (95-100) 95 Oxygen Delivery Room Air Blood Pressure 134/79 Blood Pressure Location Left Arm Source Automatic Cuff Position Supine Neuro Status *recalled from last Alert documentation MEWS Score 2 Document 08/17/16 23:20 HMF (Rec: 08/17/16 23:26 HMF [facility]) Vital Signs with MEWS Temperature (97.6 F-99.6 F) 98.4 F Temperature Source Axillary Pulse Rate 103 Respiratory Rate 16 Pulse Oximetry (95-100) 93 L Oxygen Delivery Room Air Blood Pressure 135/74 Blood Pressure Location Left Arm Source Automatic Cuff Position Supine Neuro Status *recalled from last Alert documentation MEWS Score 2 Document 08/18/16 04:18 HMF (Rec: 08/18/16 04:31 HMF [facility]) Vital Signs with MEWS Temperature (97.6 F-99.6 F) 98.4 F Temperature Source Axillary Pulse Rate 95 Respiratory Rate 18 Pulse Oximetry (95-100) 94 L Oxygen Delivery Room Air Blood Pressure 146/75 Blood Pressure Location Left Arm Source Automatic Cuff Position Supine Neuro Status *recalled from last Alert documentation MEWS Score 1 Document 08/18/16 07:43 EPR (Rec: 08/18/16 07:44 EPR [id number]) Vital Signs with MEWS Temperature (97.6 F-99.6 F) 98.5 F Temperature Source Oral Pulse Rate 96 Respiratory Rate 18 Pulse Oximetry (95-100) 94 L Oxygen Delivery Room Air Blood Pressure 136/83 Blood Pressure Location Left Arm Source Automatic Cuff Position Supine Neuro Status *recalled from last Alert documentation MEWS Score 1 Document 08/18/16 10:53 VVP (Rec: 08/18/16 10:53 VVP [facility]) Vital Signs with MEWS Temperature (97.6 F-99.6 F) 98.6 F Temperature Source Oral Pulse Rate 106 Respiratory Rate 18 Pulse Oximetry (95-100) 95 Oxygen Delivery Room Air Blood Pressure 113/69 Blood Pressure Location Left Arm Source Automatic Cuff Position Supine Neuro Status *recalled from last Alert documentation MEWS Score 2 Document 08/18/16 15:44 VVP (Rec: 08/18/16 15:45 VVP [facility]) Vital Signs with MEWS Temperature (97.6 F-99.6 F) 97.9 F Temperature Source Oral Pulse Rate 100 Respiratory Rate 17 Pulse Oximetry (95-100) 94 L Oxygen Delivery Room Air Blood Pressure 147/66 Blood Pressure Location Right Arm Neuro Status *recalled from last Alert documentation MEWS Score 1 Document 08/18/16 20:52 DKH (Rec: 08/18/16 20:54 DKH [id number]) Vital Signs with MEWS Temperature (97.6 F-99.6 F) 98.2 F Temperature Source Oral Pulse Rate 99 Respiratory Rate 18 Pulse Oximetry (95-100) 94 L Blood Pressure 153/79 Blood Pressure Location Left Arm Source Automatic Cuff Position HOB Elevated Neuro Status *recalled from last Alert documentation MEWS Score 1 Document 08/19/16 00:10 DKH (Rec: 08/19/16 00:11 DKH [id number]) Vital Signs with MEWS Temperature (97.6 F-99.6 F) 98.1 F Temperature Source Oral Pulse Rate 93 Respiratory Rate 18 Pulse Oximetry (95-100) 98 Oxygen Delivery Room Air Blood Pressure 144/85 Blood Pressure Location Left Arm Source Automatic Cuff Position HOB Elevated Neuro Status *recalled from last Alert documentation MEWS Score 1 Document 08/19/16 04:28 DKH (Rec: 08/19/16 04:29 DKH [id number]) Vital Signs with MEWS Temperature (97.6 F-99.6 F) 98.1 F Temperature Source Oral Pulse Rate 95 Respiratory Rate 19 Pulse Oximetry (95-100) 97 Oxygen Delivery Room Air Blood Pressure 138/87 Source Automatic Cuff Position HOB Elevated Neuro Status *recalled from last Alert documentation MEWS Score 1 Document 08/19/16 08:01 ARB (Rec: 08/19/16 08:09 [facility] [place] Vital Signs with MEWS Temperature (97.6 F-99.6 F) 97.9 F Temperature Source Oral Pulse Rate 102 Respiratory Rate 17 Pulse Oximetry (95-100) 93 L Oxygen Delivery Room Air Blood Pressure 120/80 Blood Pressure Location Left Arm Source Automatic Cuff Position Sitting Document 08/19/16 11:41 ARB (Rec: 08/19/16 11:46 ARB [facility]) Vital Signs with MEWS Temperature (97.6 F-99.6 F) 97.8 F Temperature Source Oral Pulse Rate 99 Respiratory Rate 17 Pulse Oximetry (95-100) 90 L Oxygen Delivery Room Air Blood Pressure 145/81 Blood Pressure Location Left Arm Source Automatic Cuff Position HOB Elevated Discharge Information ED Provider: Edilberto Montes Status: Departed Time Seen by Provider: 08/10/16 20:14 Condition: Fair Triaged At: 08/10/16 20:03 Other ED Providers: Clarissa Munoz,Ilana Louise,Lacho Santana,Melo Cole,Kofi Pak,Marleen Zheng Traci A Emergency Discharge Date/Time: 08/11/16 00:53 Emergency Discharge Disposition: Admitted As Inpatient Clinical Impression Dehydration Abdominal pain Chronic anemia Cirrhosis Hyperkalemia Hyponatremia Emergency Discharge Comment: Admit Intervention Last Done ED General Medical Assessment 08/10/16 20:04 Query Result Level Of Consciousness Awake Alert Appropriate Follows Commands Patient Orientation Person Place Name Age Date of Skin Temperature Warm Skin Moisture Dry Skin Turgor Normal Respiratory Depth Normal Respiratory Effort Non-Labored Respiratory Pattern Regular Abdomen Description Non-Tender Large Round Tender ED Discharge Assessment 08/11/16 00:49 Query Result ED Discharge Disposition Admitted ED Condition on Discharge Fair Med Rec/Patient Phamracy completed? No ED Admit to 2A Bed assigned 2 A 35 Transported by architectural technician Transported with IV continuing medication Report given to Nurse Information relayed patient's care treatments medications given condition Severity scale (1-10) 4 Pain Scale Used Standard (1-10) Blood Pressure 112/75 Heart rate 81 Respiratory Rate 18 Oxygen Delivery Room Air Pulse Oximetry Reading 96 Critical Care Minutes 0 ED Abdominal Pain Assessment 08/10/16 20:46 Query Result Abdominal Pain Symptoms/Comlaint Abdominal Pain Abdominal Pain Context Unknown Abdominal Pain Improves With Nothing Abdominal Pain Worsens With Nothing Abdominal Pain Associated Symptoms Denies Other Symptoms Level Of Consciousness Awake Alert Follows Commands Patient Orientation Place Name Date of Skin Temperature Warm Skin Moisture Dry Skin Turgor Normal Respiratory Depth Normal Respiratory Effort Non-Labored Respiratory Pattern Regular Abdomen Description Soft Large Round Tender Date of Last Bowel Movement 08/11/16 Nausea/Vomiting Presence Nauseated Bladder Distention Description None Inpatient Discharge Date/Time: 08/19/16 15:33 Inpatient Discharge Disposition: Home, Self-Care Inpatient Discharge Comment: Observation Discharge Date/Time: Observation Discharge Disposition: Observation Discharge Comment: Instructions: Heart Failure (DC) Diabetes Mellitus Type 2 in Adults (DC) Chronic Obstructive Pulmonary Disease (DC) Stand-Alone Forms: Prescriptions: HYDROcodone/Acet 5/325 mg [[place] 5-325 mg] Kevin Summers Visit Report - Forms: - [facility] Provider[facility] - 08/27/16 10:15 am - Additional text: Please follow up with your primary care provider within 5-7 days. Radiology Results Abdomen/Pelvis CT 08/10/16 20:46 IMPRESSION: No acute intra-abdominal or pelvic abnormalities. Stable changes of cirrhosis and portal hypertension. D/ / Moose Arzola MD / Moose Arzola MD Interpreting Provider: Moose Arzola MD Chest X-Ray 08/10/16 20:46 IMPRESSION: No acute cardiopulmonary disease. Stable cardiomegaly. D/ / Jules Gamble MD / Jules Gamble MD Interpreting Provider: Jules Gamble MD Retroperitoneum Ultrasound 08/11/16 19:00 IMPRESSION: Unremarkable ultrasound of the kidneys and urinary bladder. D/ / 08/11/2016 21:20:42 Kelton Ortega MD / earnold Interpreting Provider: Kelton Ortega MD Knee X-Ray 08/14/16 10:33 IMPRESSION: No acute findings. D/ / Alba Conn MD / Alba Conn MD Interpreting Provider: Alba Conn MD
[2016-08-11] MEDS ORDERED: Dextrose Gel 15 GM PO PRN ×2 (00:18)
[2016-08-11] MEDS ORDERED: *HR* Dextrose 50 % in Water (Syg) 50 ML SYRINGE IVP PRN (00:18)
[2016-08-11] MEDS ORDERED: D5% in Water 1,000 ML IV PRN (00:18)
[2016-08-11] MEDS ORDERED: Insulin DETEMIR 100 UNIT/ML X5UNITS SQ SCH (00:30)
[2016-08-11 01:17] LABS: Chol/HDL Ratio 3.5 (0-4.9); Magnesium 1.6 mg/dL (1.6-2.6); Phosphorous 4.4 mg/dL (2.3-4.7)
[2016-08-11] MEDS: 0.9 % Sodium Chloride 1,000 ML IVC SCH ×4 (01:30→16:11)
[2016-08-11 02:48] LABS: Hemoglobin A1C 10.5 %
[2016-08-11] MEDS: Ipratropium/Albuterol Neb 3 ML IH SCH ×4 (04:50→21:51)
[2016-08-11 08:23] LABS: Hematocrit 26.2 % (37.5-50.1); Hemoglobin 8.4 g/dL (12.9-16.9)
[2016-08-11] MEDS: Insulin LISPRO 300 UNITS/3 ML VIAL SQ SCH ×3 (08:28→16:07)
[2016-08-11] MEDS: levETIRAcetam 250 MG TABLET PO SCH ×2 (08:29→21:07)
[2016-08-11] MEDS: Lactulose Oral Soln 20 GM/30 ML UDC PO SCH ×3 (08:29→21:10)
[2016-08-11] MEDS: Venlafaxine XR (24 HR) 75 MG CAP.ER.24H PO SCH (08:31)
[2016-08-11] MEDS ORDERED: *HR* Rivaroxaban 10 MG TABLET PO SCH (09:00)
[2016-08-11] MEDS ORDERED: Aspirin Enteric Coated 81 MG Tablet PO SCH (09:00)
[2016-08-11] MEDS ORDERED: Furosemide 40 MG TABLET PO SCH (09:00)
[2016-08-11 09:09] LABS: Bilirubin,Urine Small (Negative); Blood,Urine Negative (Negative); Clarity,Urine Cloudy (Clear); Color,Urine Yellow (Yellow); Glucose,Urine (UA) 100 mg/dL (Normal); Ketones,Urine Trace mg/dL (Negative); Leukocyte Esterase,Urine Small (Negative); Nitrite,Urine Negative (Negative); PH,Urine 5.5 pH Units (5.0-8.0); Protein,Urine Trace mg/dL (Neg-Trace); Specific Gravity,Urine 1.023 (1.010-1.025); Urobilinogen,Urine Normal (Normal)
[2016-08-11 09:12] LABS: Bacteria,Urine None Seen per hpf (None-Few); Squamous Epithelial Cell,Urine Many per lpf (None-Few)
[2016-08-11 09:16] LABS: Amphetamine Screen,Urine Negative ng/mL (Cutoff=1000); Barbiturate Screen,Urine Negative ng/mL (Cutoff=200); Benzodiazepines Screen,Urine Negative ng/mL (Cutoff=200); Cannabinoid Screen,Urine Negative ng/mL (Cutoff = 50); Cocaine Screen,Urine Negative ng/mL (Cutoff= 300); Opiate Screen,Urine Positive ng/mL (Cutoff=300); Phencyclidine Screen,Urine Negative ng/mL (Cutoff=25)
[2016-08-11 09:26] LABS: Hyaline Casts,Urine Many per lpf (None-Few)
[2016-08-11 09:40] LABS: Hemoglobin 8.1 g/dL (12.9-16.9); Immature Granulocytes % 0.4 % (0-4)
[2016-08-11 09:42] LABS: Basophils % 0.4 %; Eosinophils # 0.2 K/mcL (0.0-0.6); Eosinophils % 3.2 %; Hematocrit 25.9 % (37.5-50.1); Immature Platelets 6.3 % (1.1-6.1); Lymphocytes # 1.5 K/mcL (0.6-4.6); Lymphocytes % 32.8 %; Mean Corpuscular HGB Conc 31.3 g/dL (31.6-35.5); Mean Corpuscular Hemoglobin 24.7 pg (28.0-33.3); Mean Platelet Volume 11.7 fL (9.4-12.4); Monocytes # 0.6 K/mcL (0.0-1.3); Monocytes % 11.6 %; Neutrophils # 2.4 K/mcL (1.6-8.9); Red Blood Count 3.28 M/mcL (4.19-5.50); Red Cell Distribution Width 15.9 % (11.5-14.5); Segmented Neutrophils % 51.6 %
[2016-08-11 09:43] LABS: Platelet Count 85 K/mcL (140-400)
[2016-08-11 10:02] LABS: Calcium 7.9 mg/dL (8.6-10.8); Potassium 5.4 mEq/L (3.5-4.5)
--- NOTE | 2016-08-11 10:09 | Internal Med Progress Note ---
<Salvatore Patterson - Last Filed: 08/11/16 10:08> Date of Encounter: 08/11/16 - Constitutional Vitals: Temp Pulse Resp BP Pulse Ox 98.1 F 82 20 88/64 96 08/11/16 08:01 08/11/16 08:01 08/11/16 08:01 08/11/16 08:01 08/11/16 08:01 General appearance: Present: disheveled, A&O X 2, mild distress, morbidly obese. Absent: answers questions appropriately Internal Medicine: Result - Labs CBC & Chem 7: 08/11/16 09:26 08/11/16 09:26 Labs: Short CBC 08/11/16 08/11/16 Range/Units 07:28 09:26 WBC 4.7 (4.3-11.1) K/mcL Hgb 8.4 L 8.1 L (12.9-16.9) g/dL Hct 26.2 L 25.9 L (37.5-50.1) % Plt Count 85 L (140-400) K/mcL Neutrophils # 2.4 (1.6-8.9) K/mcL BMP 08/11/16 09:26 Sodium 126 L Potassium 5.4 H Chloride 97 L Carbon Dioxide 18 L BUN 62 H Creatinine 3.24 H Glucose 339 H Calcium 7.9 L Cardiac Enzymes 08/11/16 08/11/16 Range/Units 00:48 07:28 Troponin I 0.00 0.00 (0-0.03) ng/mL Urine 08/11/16 Range/Units 08:50 Urine Color Yellow (Yellow) Urine Clarity Cloudy A (Clear) Urine pH 5.5 (5.0-8.0) pH Units Ur Specific [place] 1.023 (1.010-1.025) Urine Protein Trace (Neg-Trace) mg/dL Urine Glucose (UA) 100 H (Normal) mg/dL - ABG Interpretation ABG results: PT/INR, D-dimer PT 17.2 Seconds (9.4-12.1) H 08/10/16 21:09 Consult Discharge Plan - Plan [facility]errals: [facility]Primary Care Provider[facility] - <Piero Macias - Last Filed: 08/17/16 19:43> Time of Encounter: 19:43 - Assessment and plan (1) Metabolic encephalopathy Current Visit: Yes Status: Acute (2) GI bleed Current Visit: Yes Status: Acute Qualifiers: Qualified Code(s): K92.2 - Gastrointestinal hemorrhage, unspecified (3) Acute renal failure Current Visit: Yes Status: Acute Qualifiers: Qualified Code(s): N17.9 - Acute kidney failure, unspecified (4) Cirrhosis Current Visit: Yes Status: Acute Qualifiers: Qualified Code(s): K74.60 - Unspecified cirrhosis of liver - Constitutional Vitals: Temp Pulse Resp BP Pulse Ox 97.3 F L 110 18 134/79 95 08/17/16 18:52 08/17/16 18:52 08/17/16 18:52 08/17/16 18:52 08/17/16 18:52 Internal Medicine: Result - Labs CBC & Chem 7: 08/17/16 03:42 08/17/16 03:42 Labs: Short CBC 08/17/16 Range/Units 03:42 WBC 3.8 L (4.3-11.1) K/mcL Hgb 9.0 L (12.9-16.9) g/dL Hct 28.5 L (37.5-50.1) % Plt Count 86 L (140-400) K/mcL Neutrophils # 2.1 (1.6-8.9) K/mcL BMP 08/17/16 03:42 Sodium 130 L Potassium 4.8 H Chloride 100 Carbon Dioxide 24 BUN 17 Creatinine 1.28 H Glucose 365 H Calcium 8.6 - ABG Interpretation ABG results: PT/INR, D-dimer PT 17.2 Seconds (9.4-12.1) H 08/10/16 21:09 - Attending Attestation I examined this patient and my medical decision-making was reviewed with the ELECTRICIAN SHOP/PA/Advanced Practice Nurse/Resident Physician. I agree with the documented findings, disposition and treatment plan as described except to the extent set forth below. this is not a billable note
[2016-08-11 11:12] LABS: Hematocrit 28.4 % (37.5-50.1); Hemoglobin 8.9 g/dL (12.9-16.9)
--- NOTE | 2016-08-11 12:37 | Gastroenterology Consult Note ---
<LouiseLacho prajapati Ryan - Last Filed: 08/11/16 12:35> Date of Encounter: 08/11/16 Time of Encounter: 11:05 - Assessment and plan (1) Chronic anemia Current Visit: Yes Status: Acute Assessment and plan: Patient with recent colonoscopy and EGD with known history of cirrhosis. FOBT negative. We will hold on any scopes for now. Continue to monitor CBC and transfuse PRBC as needed. (2) Cirrhosis Current Visit: Yes Status: Acute Assessment and plan: AFP 4 on 05/21/2016, F actin 24 on 05/24/2016 will repeat. Liver ultrasound on 05/23/2016 showed heterogeneous echotexture throughout the liver, compatible with diffuse hepatocellular disease Qualifiers: Hepatic cirrhosis type: unspecified hepatic cirrhosis Ascites presence: without ascites Qualified Code(s): K74.60 - Unspecified cirrhosis of liver (3) Abdominal pain Current Visit: Yes Status: Acute Assessment and plan: CT A/P with no acute intra-abdominal abnormalities, shows stable cirrhosis and portal hypertension. Qualifiers: Abdominal location: lower abdomen, unspecified Qualified Code(s): R10.30 - Lower abdominal pain, unspecified - Time Spent With Patient Total time spent is greater than 50% in coordination of care (as documented) at patient's floor/unit and/or counseling patient: GI History of Present Illness - Data of Consult Patient: known to practice within the last 3 years Consult date: 08/11/16 Requesting Physician: Piero Macias MD - Consult Narrative Reason for consult: GI bleed, UC? History of present illness: Mr. Ramirez is a 66 year old male with PMHx of cirrhosis, CHF, COPD, CAD, DM, HLD , HTN, and TIA who presented ot the ED with lower abdominal pain and rectal bleeding. He denies nausea or vomiting. he reported 4 episodes of BRBPR yesterday, but none since admission. He reported lower abdominal pain as well as subjective fevers and diaphoresis. He denies chest pain or SOB. Hgb on admission 9.1 and is 8.1 this AM. Procedures: Colonoscopy 05/31/2016 Dr. Peace diffuse severe inflammation in the rectum secondary to colitis, localized mild inflammation in the proximal transverse colon secondary to colitis EGD 05/26/2016 Dr. Esther jeffries. NSAIDs: ASA Anticoagulation: Xarelto Past Med Surg Social Fam HX - Past Medical History Medical history: arthritis, cirrhosis, CHF, COPD, coronary artery disease, diabetes, GERD, hyperlipidemia, hypertension, liver disease, osteoporosis, TIA, other (Restless leg syndrome.) Psychiatric history: anxiety, depression, PTSD, other - Past Surgical History Surgical History: appendectomy, cholecystectomy, herniorrhaphy, knee replacement , other - Social History Smoking Status: Never smoker Smokeless Tobacco Status: No Alcohol use: none Drug use: none - Family History Mother Living Status: Hx Family Cancer: Yes - Gastrointestinal Gastrointestinal: Present: as per HPI - Constitutional Constitutional: as per HPI - EENT Eyes: as per HPI Ears: Present: as per HPI Nose, mouth and throat: Present: as per HPI - Cardiovascular Cardiovascular ROS: Present: as per HPI - Respiratory Respiratory IM: Present: as per HPI - Genitourinary Genitourinary: Absent: change in color, Urinary frequency - Neurological ROS Neurological GI: Present: as per HPI - Hematologic/Lymphatic Hematologic/Lymphatic pediatric: Present: as per HPI - Musculoskeletal Musculoskeletal ROS GI: Present: as per HPI - Integumentary Integumentary GI: Present: as per HPI - Psychiatric ROS Psychiatric GI: Present: as per HPI - Endocrine Endocrine IM: Present: as per HPI - Constitutional Vitals: Temp Pulse Resp BP Pulse Ox 98.4 F 88 17 91/57 92 L 08/11/16 11:55 08/11/16 11:55 08/11/16 11:55 08/11/16 11:55 08/11/16 11:55 General appearance: Present: cooperative, disheveled, A&O X 2, no acute distress , answers questions appropriately - Head Head exam: Present: atraumatic, normocephalic - Eye Eye exam: Present: normal appearance, sclera anicteric - ENT ENT exam: Present: mucous membranes moist - Neck Neck exam general surgery: Present: normal inspection, trachea midline - Respiratory Respiratory exam: Present: decreased breath sounds, CTAB - Cardiovascular Cardiovascular exam: Present: RRR, +S1, +S2 - GI/Abdominal GI/Abdominal exam: Present: soft, no peritoneal signs. Absent: distended, firm , guarding, tenderness - Rectal Rectal exam: Present: deferred - Extremities Exam Extremities exam: Present: warm - Neurological Exam Neurological exam: Present: no focal deficits - Psychiatric Psychiatric exam: Present: normal affect, normal mood - Skin Skin exam: Present: dry, intact, normal color, warm Results - Labs CBC & Chem 7: 08/11/16 10:49 08/11/16 09:26 Labs: Last Result Calcium 7.9 mg/dL (8.6-10.8) L 08/11/16 09:26 Troponin I 0.00 ng/mL (0-0.03) 08/11/16 10:49 Triglycerides 160 mg/dL (< 150) H 08/11/16 00:48 Stool Occult Blood Negative (Negative) 08/10/16 21:20 Urine Opiates Screen Positive ng/mL (Ceumww=828) H 08/11/16 08:50 Entire Visit Hgb 8.9 g/dL (12.9-16.9) L 08/11/16 10:49 Hct 28.4 % (37.5-50.1) L 08/11/16 10:49 PT 17.2 Seconds (9.4-12.1) H 08/10/16 21:09 Total Bilirubin 0.4 mg/dL (0.2-1.2) 08/10/16 21:09 AST 35 Units/L (5-34) H 08/10/16 21:09 ALT 37 Units/L (0-55) 08/10/16 21:09 Ammonia 89 mcmol/L (18-72) H 08/10/16 23:09 Amylase 56 Units/L (25-125) 08/11/16 00:48 Lipase 62 Units/L (8-78) 08/10/16 21:09 - ABG ABG results: PT/INR, D-dimer PT 17.2 Seconds (9.4-12.1) H 08/10/16 21:09 Consult Discharge Plan - Plan [facility]errals: [facility]Primary Care Provider[facility] - <Melo Santana - Last Filed: 08/11/16 17:19> Date of Encounter: 08/11/16 Time of Encounter: 14:00 - Time Spent With Patient Total time spent is greater than 50% in coordination of care (as documented) at patient's floor/unit and/or counseling patient: GI History of Present Illness - Data of Consult Requesting Physician: Piero Macias MD - Consult Narrative History of present illness: Mr. Ramirez is a 66 year old male - Constitutional Vitals: Temp Pulse Resp BP Pulse Ox 98.0 F 88 16 101/65 99 08/11/16 15:43 08/11/16 15:43 08/11/16 15:56 08/11/16 15:43 08/11/16 15:56 Results - Labs CBC & Chem 7: 08/11/16 16:03 08/11/16 09:26 Labs: Last Result Calcium 7.9 mg/dL (8.6-10.8) L 08/11/16 09:26 Iron 27 mcg/dL (65-175) L 08/11/16 16:03 % Saturation 6 % (20-55) L 08/11/16 16:03 Transferrin 298 mg/dL (174-364) 08/11/16 16:03 Ferritin 23 ng/ml (22-275) 08/11/16 16:03 Troponin I 0.00 ng/mL (0-0.03) 08/11/16 10:49 Triglycerides 160 mg/dL (< 150) H 08/11/16 00:48 Stool Occult Blood Negative (Negative) 08/10/16 21:20 Urine Opiates Screen Positive ng/mL (Sqqbup=475) H 08/11/16 08:50 Entire Visit Hgb 8.1 g/dL (12.9-16.9) L 08/11/16 16:03 Hct 26.1 % (37.5-50.1) L 08/11/16 16:03 PT 17.2 Seconds (9.4-12.1) H 08/10/16 21:09 Ferritin 23 ng/ml (22-275) 08/11/16 16:03 Total Bilirubin 0.4 mg/dL (0.2-1.2) 08/10/16 21:09 AST 35 Units/L (5-34) H 08/10/16 21:09 ALT 37 Units/L (0-55) 08/10/16 21:09 Ammonia 89 mcmol/L (18-72) H 08/10/16 23:09 Amylase 56 Units/L (25-125) 08/11/16 00:48 Lipase 62 Units/L (8-78) 08/10/16 21:09 - ABG ABG results: PT/INR, D-dimer PT 17.2 Seconds (9.4-12.1) H 08/10/16 21:09 - Attending Attestation I examined this patient and my medical decision-making was reviewed with the EMAIL ENGINEER/PA/Advanced Practice Nurse/Resident Physician. I agree with the documented findings, disposition and treatment plan as described except to the extent set forth below.
--- NOTE | 2016-08-11 13:52 | Internal Med Progress Note ---
<Salvatore Patterson - Last Filed: 08/11/16 13:48> Date of Encounter: 08/11/16 Time of Encounter: 08:35 - Assessment and plan (1) Metabolic encephalopathy Current Visit: Yes Status: Acute Assessment and plan: mild patient is somonolent and somewhat altered but easily arousable. Likely from a combination or Hepatic encephalopathy and MJ will continue lactulose add rifamycin Continue IV fluids. (2) Hypotension Current Visit: Yes Status: Acute Assessment and plan: I think this is secondary to hypovolemia with his history of GI bleeding and diarrhea. May also consider infections however he dose not meet SIRS criteria. will place on Cipro and Flagyl. this will be good emperic therapy for GI and UTI infections. will also send blood cultures. UA suggest possible UTI but it is also contaminated as well. will check a procalcitonin. hold antihypertensives (3) GI bleed Current Visit: Yes Status: Acute Assessment and plan: No active bleeding since admission recent colonoscopy by Dr. Santana in May 2016 showed mucosal ulcerations with abscesses. Possible inflammatory bowel disease? We have consulted GI. appreciate their input. (4) Anemia Current Visit: Yes Status: Acute Assessment and plan: Microcytic. Hypotensive. However he has had anemia since 2015. I do not see where it has been worked up so I will order hematinics, reticulocyte and LDH. Continue to monitor H/H Transfuse if < 7.0 or symptomatic (5) Acute renal failure Current Visit: Yes Status: Acute Assessment and plan: According to RIFLE criteria ( SCr > 3X baseline) Prerenal? Seconday to Hypovolemia? Diarrhea? Post renal? will order retroperitoneal US. Intra renal? Hepatorenal? Patient has made approximately 100 c's of urine in the past 6 hours. Hold ACEi, Diuretics I will consult Nephrology as his renal function is rapidly worsening and may need acute dialysis if continues to worse. (6) Cirrhosis Current Visit: Yes Status: Acute Assessment and plan: reportedly from a history of ETOH abuse He is also a diabetic. GI consulted. Child Vázquez class B MELD with Na = 30 However this is in the setting of MJ/ hypotension (7) Diabetes Current Visit: Yes Status: Acute Assessment and plan: continue high dose sliding scale and levemir. Above goal. If continues to rise will increase basal insulin (8) Chronic anticoagulation Current Visit: Yes Status: Acute Assessment and plan: on Xarelto. Patient dose not know why. Will hold as SCR 3.24 (9) Hyperkalemia Current Visit: Yes Status: Acute Assessment and plan: Trending down. will give Kayexalate. should also decrease with insulin. No EKG changes so no Calcium gluconate at this time. trending down. Will continue to monitor. (10) Lactic acidosis Current Visit: Yes Status: Acute Assessment and plan: resolved (11) Hyponatremia Current Visit: Yes Status: Acute Assessment and plan: acute on chronic. secondary to hypovolemia? will order urine sodium, TSH, cortisol, uric acid. (12) Thrombocytopenia Current Visit: Yes Status: Acute Assessment and plan: likely secondary to cirrhosis. continue to monitor (13) Urinary tract infection Current Visit: Yes Status: Acute Assessment and plan: cipro (14) Metabolic acidosis Current Visit: Yes Status: Acute Assessment and plan: MARTHA bicarb 18 IV fluids? diarhea? continue to monitor closely (15) DVT prophylaxis Current Visit: Yes Status: Acute Assessment and plan: EPCDs - Subjective Interval history: Mr. Ramirez is a 66 y.o. male who is limves in a [place] intermediate. He is currently here with a friend tio who dose not know much about the patient medical history. He currently has no family here. HIV from last night is still incomplete. Patient is confusing poor historian at this time. Does admit to some right upper quadrant abdominal pain. He denies any nausea vomiting or diarrhea. Does admit to some bright red blood per rectum. he dose admit admit to diarrhea as well. He can not quantify the amount at this time. He denies fever and chills. He dose seem to answer most questions appropriately but quickly falls back to sleep. - Constitutional Vitals: Temp Pulse Resp BP Pulse Ox 98.4 F 88 17 91/57 92 L 08/11/16 11:55 08/11/16 11:55 08/11/16 11:55 08/11/16 11:55 08/11/16 11:55 Exam: General: This is a well-developed well-nourished 66-year-old male he is currently alert and orientated to person and situation but not time currently. He is somewhat somnolent and falls back asleep quite easily. He does appear to be comfortable does not have a toxic appearance he is in no acute distress at this time. Head: Head is normal cephalic and atraumatic. EENT anicteric sclera, pupils equally round reactive to light and accommodation. Moist mucous membranes. Dentition intact. Obese neck supple without mass or thyromegaly. No cervical or supraclavicular lymphadenopathy palpable on exam. Heart: Heart is regular rate and rhythm without murmurs rubs or gallops. Lungs: Clear to auscultation bilaterally. Other than he does have some fine course sounds in the right upper lung field but this clears with coughing. Abdomen: The abdomen is obese, nondistended. He does have some tenderness in the right upper quadrant. No guarding or rebound tenderness present. There is have some old laparotomy scars. Musculoskeletal: Grossly normal for age no gross deformity noted. Extremities: Was no clubbing or cyanosis. There is some mild pedal edema bilaterally. Integument: No jaundice, rash, or lesions noted. Internal Medicine: Result - Labs CBC & Chem 7: 08/11/16 10:49 08/11/16 09:26 Labs: Short CBC 08/11/16 08/11/16 08/11/16 Range/Units 07:28 09:26 10:49 WBC 4.7 (4.3-11.1) K/mcL Hgb 8.4 L 8.1 L 8.9 L (12.9-16.9) g/dL Hct 26.2 L 25.9 L 28.4 L (37.5-50.1) % Plt Count 85 L (140-400) K/mcL Neutrophils # 2.4 (1.6-8.9) K/mcL BMP 08/11/16 09:26 Sodium 126 L Potassium 5.4 H Chloride 97 L Carbon Dioxide 18 L BUN 62 H Creatinine 3.24 H Glucose 339 H Calcium 7.9 L Cardiac Enzymes 08/11/16 08/11/16 08/11/16 Range/Units 00:48 07:28 10:49 Troponin I 0.00 0.00 0.00 (0-0.03) ng/mL Urine 08/11/16 Range/Units 08:50 Urine Color Yellow (Yellow) Urine Clarity Cloudy A (Clear) Urine pH 5.5 (5.0-8.0) pH Units Ur Specific [place] 1.023 (1.010-1.025) Urine Protein Trace (Neg-Trace) mg/dL Urine Glucose (UA) 100 H (Normal) mg/dL - ABG Interpretation ABG results: PT/INR, D-dimer PT 17.2 Seconds (9.4-12.1) H 08/10/16 21:09 - VTE Documentation of Mechanical Device: Graduated compression elastic hosiery Consult Discharge Plan - Plan Referrals: [facility] [Primary Care Provider[facility] - <Piero Macias - Last Filed: 08/11/16 17:53> Date of Encounter: 08/11/16 - Constitutional Vitals: Temp Pulse Resp BP Pulse Ox 98.0 F 88 16 101/65 99 08/11/16 15:43 08/11/16 15:43 08/11/16 15:56 08/11/16 15:43 08/11/16 15:56 Internal Medicine: Result - Labs CBC & Chem 7: 08/11/16 16:03 08/11/16 09:26 Labs: Short CBC 08/11/16 08/11/16 08/11/16 Range/Units 07:28 09:26 10:49 WBC 4.7 (4.3-11.1) K/mcL Hgb 8.4 L 8.1 L 8.9 L (12.9-16.9) g/dL Hct 26.2 L 25.9 L 28.4 L (37.5-50.1) % Plt Count 85 L (140-400) K/mcL Neutrophils # 2.4 (1.6-8.9) K/mcL 08/11/16 Range/Units 16:03 WBC (4.3-11.1) K/mcL Hgb 8.1 L (12.9-16.9) g/dL Hct 26.1 L (37.5-50.1) % Plt Count (140-400) K/mcL Neutrophils # (1.6-8.9) K/mcL BMP 08/11/16 09:26 Sodium 126 L Potassium 5.4 H Chloride 97 L Carbon Dioxide 18 L BUN 62 H Creatinine 3.24 H Glucose 339 H Calcium 7.9 L Cardiac Enzymes 08/11/16 08/11/16 08/11/16 Range/Units 00:48 07:28 10:49 Troponin I 0.00 0.00 0.00 (0-0.03) ng/mL Urine 08/11/16 08/11/16 Range/Units 08:50 15:55 Urine Color Yellow Yellow (Yellow) Urine Clarity Cloudy A Clear (Clear) Urine pH 5.5 5.5 (5.0-8.0) pH Units Ur Specific [place] 1.023 1.018 (1.010-1.025) Urine Protein Trace Trace (Neg-Trace) mg/dL Urine Glucose (UA) 100 H 250 H (Normal) mg/dL - ABG Interpretation ABG results: PT/INR, D-dimer PT 17.2 Seconds (9.4-12.1) H 08/10/16 21:09 - Attending Attestation I examined this patient and my medical decision-making was reviewed with the METALLUR[employer]ICAL LAB TECHNICIAN/PA/Advanced Practice Nurse/Resident Physician. I agree with the documented findings, disposition and treatment plan as described except to the extent set forth below.
--- NOTE | 2016-08-11 13:55 | Nephrology Consult Note ---
Date of Encounter: 08/11/16 Time of Encounter: 14:10 Assessment and Plan (1) Acute kidney injury Current Visit: Yes Status: Acute Patient presents with non-oliguric MJ with no prior history of CKD. No recent nephrotoxic exposures such as vancomycin, vontrast dye. NSAID use outpatient unclear. Patient has history of cirrhosis and has come confusion during this stay making history taking difficult. Patient has been on xarelto with no clear indication as to why. Patient unaware of why he is on it. Xarelto has been held for now. Patient notes no recent dysuria or hematuria. He notes his appetite has been decreased, but is drinking fluids without difficulty. Patient was hypotensive today with systolic pressures as low as 88. Patient has had 3 L IVF. Will do workup for MJ. Suspect a combination of hypotension with possible decreased oral intake as potential cause. Will repeat Urine sodium and UCr to recalculate FENA. This will provide a picture of whether this is a prerenal ATN or potentially a developing hepatorenal syndrome. At this point further workup needs to be done to determine the cause and the next steps to take. Navarro Catheter in place with straw colored urine. 3/6 SCr 2.29 3/7 SCr 3.24, GFR 19, Na 126, K 5.4, Cl 97, CO2 18, BUN 62, Hgb 8.9, Plt 85 SCr baseline is 0.8-0.97 Hyaline Casts in urine Urine Sodium 30 3/7 UOP 100, although 400cc urine noted in navarro during examination. Plan: -Renal US -Urine protein/creatinine ratio -Repeat urine Na and Urine Creatinine today -Agree with fluids, it is necessary to maintain his volume status and increase his BP -Strict I/Os and daily weights -Avoid nephrotoxic agents -Renally dose medications Thank you for consulting [facility], we will continue to follow. (2) Hypotension Current Visit: Yes Status: Acute see above Qualifiers: Hypotension type: unspecified hypotension type Qualified Code(s): I95.9 - Hypotension, unspecified (3) Hyponatremia Current Visit: Yes Status: Acute acute on chronic, may be secondary to volume status. Will continue to follow, repeat urine sodium. (4) Anemia Current Visit: Yes Status: Chronic Agree with labworkup for potential causes of anemia. Qualifiers: Anemia type: other cause Other causes of anemia: other cause, not classified Qualified Code(s): D64.89 - Other specified anemias (5) Cirrhosis of liver Current Visit: Yes Status: Chronic Manage per GI Qualifiers: Hepatic cirrhosis type: other cirrhosis Qualified Code(s): K74.69 - Other cirrhosis of liver (6) Diabetes Current Visit: Yes Status: Chronic Manage per primary care team Qualifiers: Diabetes mellitus type: type 2 Diabetes mellitus complication status: without complication Diabetes mellitus terminal gauger insulin use: with terminal gauger use Qualified Code(s): E11.9 - Type 2 diabetes mellitus without complications ; Z79.4 - long term care administrator (current) use of insulin History of Present Illness - Reason for Consult Consult date: 08/11/16 Acute Kidney Injury Requesting physician: Salvatore Patterson - Chief Complaint abdominal pain - History of Present Illness Mr. Ramirez is a 66 y/o Male with PMH of DM, ciffhosis, obesity, HTN, HLD, TIA, diastolic CHF, CAD, COPD, GERD and RLS who presented to the ED complaining of lower abdominal pain and 4 episodes of bright red stool. The patient was admitted for IVF and further evaluation. GI is onboard as the patient has chronic anemia and cirrhosis with hgb of 8.9 today. Patient has developed worsening creatinine and thus nephrology was consulted. The patient denies a history of CKD or any other kidney disease. He does have diabetes. He states he has had abdominal pain chronically for "months." He notes recently feeling like his legs are "tight." He notes a recent decrease in appetite from his norm, but states he has been drinking liquids without difficulty. He denies CP, SOB, hematuria, dysuria, vomiting. He denies a family history of kidney disease. He denies recently being acutely ill, having medication changes or antibiotic use, or recent contrast dye administration. He is unsure of why he is on xarelto. Past Med Surg Social Fam HX - Past Medical History Medical history: arthritis, cirrhosis, CHF, COPD, coronary artery disease, diabetes, GERD, hyperlipidemia, hypertension, liver disease, osteoporosis, TIA, other (Restless leg syndrome.) Psychiatric history: anxiety, depression, PTSD, other - Past Surgical History Surgical History: appendectomy, cholecystectomy, herniorrhaphy, knee replacement , other - Social History Smoking Status: Never smoker Smokeless Tobacco Status: No Alcohol use: none Drug use: none - Family History Mother Living Status: Hx Family Cancer: Yes Medications and Allergies Cholecalciferol (Vitamin D3) [Vitamin D] 1,000 unit PO DAILY 05/13/15 [History] Insulin ASPART [NovoLOG] 48 - 100 unit SQ TIDWM 05/13/15 [History] Ropinirole HCl [Requip] 2 mg PO HS 05/13/15 [History] Venlafaxine HCl [Effexor Xr] 75 mg PO DAILY 05/13/15 [History] Aspirin Enteric Coated [Aspirin EC] 81 mg PO DAILY 11/13/15 [History] Atorvastatin [Lipitor] 40 mg PO HS 11/13/15 [History] Insulin Glargine,Hum.rec.anlog [Lantus Solostar] 160 unit SQ BID 11/13/15 [ History] Lactulose 30 gm PO TID 11/13/15 [History] Omeprazole [PriLOSEC] 20 mg PO DAILY 11/13/15 [History] Tamsulosin [Flomax] 0.4 mg PO DAILY 11/13/15 [History] Furosemide [Lasix] 40 mg PO DAILY 05/16/16 [History] Lisinopril [Zestril] 2.5 mg PO HS 05/16/16 [History] RisperiDONE [Risperdal] 3 mg PO HS 05/16/16 [History] Rivaroxaban [Xarelto] 10 mg PO DAILY 05/16/16 [History] Sertraline [Zoloft] 50 mg PO DAILY 05/16/16 [History] Spironolactone [Aldactone] 50 mg PO DAILY 05/16/16 [History] Atenolol [Tenormin] 50 mg PO DAILY 05/29/16 [History] LevETIRAcetam [Keppra] 750 mg PO BID 06/07/16 [History] HYDROcodone/Acet 5/325 mg [[place] 5-325 mg] 1 tab PO BID PRN 08/10/16 [History] Ipratropium/Albuterol Neb [Duoneb] 3 ml IH Q6HR 08/10/16 [History] Allergies Iodinated Contrast Media - Oral and Allergy (Verified 06/07/16 06:25) Difficulty Breathing ketorolac [From Toradol] Allergy (Verified 06/07/16 06:25) Nausea Penicillins Allergy (Verified 06/07/16 06:25) Rash butorphanol [From Stadol] Adverse Reaction (Verified 06/08/16 17:28) Nausea celecoxib Adverse Reaction (Verified 06/07/16 06:25) [facility] gabapentin Adverse Reaction (Verified 06/07/16 09:34) unknown [facility] list. mirtazapine Adverse Reaction (Verified 06/07/16 06:25) unknown [facility] tramadol Adverse Reaction (Verified 06/07/16 06:25) unknown listed [facility] vancomycin Adverse Reaction (Verified 06/07/16 06:25) unknown listed on [facility] Review of Systems All Systems: reviewed and no additional remarkable complaints except as stated Exam - Vital Signs Vital signs: Initial Vital Signs Temp Pulse Resp BP Pulse Ox 98.6 F 101 16 109/53 96 08/10/16 20:04 08/10/16 20:04 08/10/16 20:04 08/10/16 20:04 08/10/16 20:04 Vital Signs - Last 8 Hours Temp Pulse Resp BP Pulse Ox 08/11/16 11:55 98.4 F 88 17 91/57 92 L 08/11/16 10:54 20 96 08/11/16 08:01 98.1 F 82 20 88/64 96 Intake and Output 08/10/16 08/11/16 08/11/16 23:59 07:59 15:59 Intake Total 1999 Output Total 100 / 100 Balance 1900 / 190 Intake: IV Fluids 1999 0.9 % Sodium Chloride 1, 1999 / 1999 000 ML @ 125 mls/hr IVC . Q8H [facility] Rx#:[id number] Output: Urine 100 / 100 Urethral (Navarro) 100 / 100 Other: Blood Glucose* 372 345 - General Appearance General appearance: well-developed, well-nourished, obese EENT: ATNC, PERRL, mucous membranes moist Neck: no JVD, supple Respiratory: clear Cardiology: no murmurs, no rub, no gallops, edema (trace b/l LE), regular rate, regular rhythm, normal S1, normal S2 Gastrointestinal: normoactive bowel sounds, tenderness (RUQ, RLQ), obese Additional Comments: ventral hernia no ascites noted Integumentary: no rash, warm and dry Neurologic: confused, disoriented, CN 3-12 intact Additional Comments: Patient oriented to person, place and situation. He is not oriented to month or year. He states it is June 2015 Patient alert and then falls asleep during exam Musculoskeletal: no deformities, no erythema, no cyanosis, no clubbing Psychiatric: mood/affect appropriate Results - Lab Results 08/11/16 10:49 08/11/16 09:26 Most recent lab results Calcium 7.9 mg/dL (8.6-10.8) L 08/11/16 09:26 Phosphorus 4.4 mg/dL (2.3-4.7) 08/11/16 00:48 Magnesium 1.6 mg/dL (1.6-2.6) 08/11/16 00:48 Urine Sodium 30.0 mEq/L 08/11/16 08:50 - Image Kidney/bladder ultrasound: pending Consult Discharge Plan - Plan [facility]errals: [facility] [Primary Care Provider] -
--- NOTE | 2016-08-11 14:05 | Electrocardiograph Report ---
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
[2016-08-11] MEDS: MetroNIDAZOLE 500 MG/100 ML 500 MG/100 ML BAG IVPB SCH (16:16)
[2016-08-11] MEDS: Insulin DETEMIR 100 UNIT/ML X5UNITS SQ SCH (16:17)
[2016-08-11 16:22] LABS: Protein/Creatinine Ratio,Urine 0.14 mg/mg (0-0.20)
[2016-08-11 16:24] LABS: Bilirubin,Urine Negative (Negative); Blood,Urine Moderate (Negative); Clarity,Urine Clear (Clear); Color,Urine Yellow (Yellow); Glucose,Urine (UA) 250 mg/dL (Normal); Ketones,Urine Negative (Negative); Leukocyte Esterase,Urine Negative (Negative); Nitrite,Urine Negative (Negative); PH,Urine 5.5 pH Units (5.0-8.0); Protein,Urine Trace mg/dL (Neg-Trace); Specific Gravity,Urine 1.018 (1.010-1.025); Urobilinogen,Urine Normal (Normal)
[2016-08-11 16:26] LABS: VBG HCO3 20.6 mEq/L (21-27); VBG PH 7.25 pH Units (7.32-7.42)
[2016-08-11 16:28] LABS: Bacteria,Urine None Seen per hpf (None-Few); Hyaline Casts,Urine None Seen per lpf (None-Few); RBC,Urine 30-50 per hpf (0-3); Squamous Epithelial Cell,Urine Few per lpf (None-Few); WBC,Urine 0-3 per hpf (0-3)
[2016-08-11 16:28] LABS: Hematocrit 26.1 % (37.5-50.1); Hemoglobin 8.1 g/dL (12.9-16.9)
[2016-08-11 16:48] LABS: Uric Acid 7.3 mg/dL (3.5-7.2)
[2016-08-11 16:49] LABS: % Iron Saturation 6 % (20-55); Iron 27 mcg/dL (65-175); Transferrin 298 mg/dL (174-364)
[2016-08-11 17:09] LABS: Thyroid Stimulating Hormone 1.808 mcIU/mL (0.350-4.840)
[2016-08-11 17:15] LABS: Ferritin 23 ng/ml (22-275)
[2016-08-11 17:19] LABS: Hepatitis B Surface Antigen Nonreactive (Nonreactive)
[2016-08-11 17:26] LABS: Folate 10.6 ng/mL (7.0-31.4)
[2016-08-11 18:15] LABS: Retculocyte # 0.07 M/mcL (0.05-0.10); Reticulocyte % 2.2 % (1.6-2.8)
[2016-08-11] MEDS ORDERED: *HR* OxyCODONE Immed Rel 5 MG TABLET PO PRN (18:55)
[2016-08-11 19:03] LABS: Calcium 7.7 mg/dL (8.6-10.8); Potassium 6.1 mEq/L (3.5-4.5)
[2016-08-11 19:19] LABS: Immature Granulocytes % 0.2 % (0-4); Mean Corpuscular HGB Conc 31.9 g/dL (31.6-35.5); Red Cell Distribution Width 15.9 % (11.5-14.5)
[2016-08-11 19:21] LABS: Basophils % 0.7 %; Eosinophils # 0.1 K/mcL (0.0-0.6); Eosinophils % 2.4 %; Hematocrit 25.4 % (37.5-50.1); Hemoglobin 8.1 g/dL (12.9-16.9); Immature Platelets 6.4 % (1.1-6.1); Lymphocytes # 1.5 K/mcL (0.6-4.6); Lymphocytes % 36.1 %; Mean Corpuscular Volume 78.4 fL (83.0-100.0); Mean Platelet Volume 11.9 fL (9.4-12.4); Monocytes # 0.5 K/mcL (0.0-1.3); Monocytes % 11.7 %; Red Blood Count 3.24 M/mcL (4.19-5.50); Segmented Neutrophils % 48.9 %
[2016-08-11 19:24] LABS: Platelet Count 77 K/mcL (140-400)
[2016-08-11] MEDS ORDERED: rOPINIRole 1 MG TABLET PO SCH (21:00)
[2016-08-11] MEDS: rOPINIRole 1 MG TABLET PO SCH (21:04)
[2016-08-11] MEDS: RisperiDAL 3 MG TABLET PO SCH (21:07)
[2016-08-11] MEDS ORDERED: Calcium Gluconate 1,000 MG in D5% in Water 100 ML IVPB ONE (21:45)
[2016-08-11] MEDS ORDERED: Insulin Human Regular 5 UNIT, Sodium Bicarbonate 50 MEQ in D10% in Water 500 ML IVC ONE (21:47)
[2016-08-11] MEDS: *HR* HYDROcodone/Acet 5/325 mg TABLET PO PRN (22:42)
[2016-08-12] MEDS: Insulin DETEMIR 100 UNIT/ML X5UNITS SQ SCH (00:07)
[2016-08-12] MEDS: Insulin LISPRO 300 UNITS/3 ML VIAL SQ SCH ×7 (00:10→22:25)
[2016-08-12 01:33] LABS: Basophils % 0.3 %; Immature Granulocytes % 0.3 % (0-4); Mean Corpuscular HGB Conc 31.2 g/dL (31.6-35.5); Mean Corpuscular Hemoglobin 24.9 pg (28.0-33.3); Red Cell Distribution Width 15.9 % (11.5-14.5)
[2016-08-12 01:34] LABS: Eosinophils # 0.1 K/mcL (0.0-0.6); Eosinophils % 3.6 %; Hematocrit 26.3 % (37.5-50.1); Hemoglobin 8.2 g/dL (12.9-16.9); Immature Platelets 4.8 % (1.1-6.1); Lymphocytes % 31.4 %; Mean Corpuscular Volume 79.9 fL (83.0-100.0); Mean Platelet Volume 10.1 fL (9.4-12.4); Monocytes # 0.4 K/mcL (0.0-1.3); Monocytes % 11.4 %; Neutrophils # 1.6 K/mcL (1.6-8.9); Red Blood Count 3.29 M/mcL (4.19-5.50)
[2016-08-12 01:35] LABS: Platelet Count 76 K/mcL (140-400)
[2016-08-12 01:37] LABS: Ionized Calcium 1.05 mmol/L (1.15-1.35)
[2016-08-12 01:48] LABS: Albumin 2.9 g/dL (3.5-5.0); Albumin/Globulin Ratio 0.7 (1.1-2.2); Bilirubin,Total 0.4 mg/dL (0.2-1.2); Calcium 8.5 mg/dL (8.6-10.8); Globulin 4.4 g/dL (2.4-3.5); Magnesium 1.8 mg/dL (1.6-2.6); Phosphorous 3.6 mg/dL (2.3-4.7); Total Protein 7.3 g/dL (6.0-8.3)
[2016-08-12] MEDS: Ipratropium/Albuterol Neb 3 ML IH SCH ×4 (03:37→22:18)
[2016-08-12] MEDS: MetroNIDAZOLE 500 MG/100 ML 500 MG/100 ML BAG IVPB SCH ×4 (05:54→23:11)
[2016-08-12] MEDS ORDERED: Calcium Gluconate 1,000 MG in D5% in Water 100 ML IVPB ONE (06:22)
[2016-08-12] MEDS ORDERED: Albuterol 2.5 MG/3 ML NEBULIZER IH ONE (06:22)
[2016-08-12] MEDS ORDERED: 0.9 % Sodium Chloride 1,000 ML IVC SCH (06:33)
--- NOTE | 2016-08-12 06:35 | Internal Med Progress Note ---
<Salvatore Patterson - Last Filed: 08/12/16 06:32> Date of Encounter: 08/12/16 Time of Encounter: 06:32 - Assessment and plan (1) Metabolic encephalopathy Current Visit: Yes Status: Acute Assessment and plan: Improving. His is likely due to combination of hepatic encephalopathy and also acute kidney injury. Patient is less somewhat more orientated this morning. We will continue lactulose will titrate to 4 loose stools per day. Continue IV fluids as renal function is improving. Continue to monitor for volume overload. (2) Hypotension Current Visit: Yes Status: Acute Assessment and plan: I think most likely this was due to hypovolemia as the patient's hypotension has resolved with IV fluids. We will continue fluids but I will decrease the rate some as he is starting to have some pedal edema as well as abdominal distention. We will continue to watch him closely for signs of further volume overload especially his pulmonary status. However he did have a severe acute kidney injury and will need to continue to hydrate him at this time. Qualifiers: Hypotension type: unspecified hypotension type Qualified Code(s): I95.9 - Hypotension, unspecified (3) GI bleed Current Visit: Yes Status: Acute Assessment and plan: No active bleeding since admission recent colonoscopy by Dr. Santana in May 2016 showed mucosal ulcerations with abscesses. Possible inflammatory bowel disease? We have consulted GI. appreciate their input. (4) Anemia Current Visit: Yes Status: Acute Assessment and plan: Microcytic. Hypotensive. Iron deficient B12 and folate within normal limits. Reticulocytes are within normal limits. Possibly this reflects patrician deficiency as I would expect them to be elevated given his severity of anemia. Hemoglobin is stable. Continue to monitor H/H Transfuse if < 7.0 or symptomatic (5) Acute renal failure Current Visit: Yes Status: Acute Assessment and plan: Most likely this was due to combination of hypotension, hypovolemia, and his diuretics and antihypertensives. Patient is making a marketed improvement IV fluids. He has adequate urine output. We will continue IV fluids but decrease the rate some as he is certainly have some pedal edema and worsening abdominal distention. Appreciate nephrology's input and recommendations. (6) Cirrhosis Current Visit: Yes Status: Acute Assessment and plan: reportedly from a history of ETOH abuse He is also a diabetic. GI consulted. Child Vázquez class B MELD with Na is now 25 Will continue to monitor closely. Appreciate GIs recommendations. (7) Diabetes Current Visit: Yes Status: Acute Assessment and plan: Abive goal Increase levemir to 30 units BID continue High dose sliding scale. will discuss with pharmacy to make sure we are using as little glucose in IV medications as possible Diabetic diet. (8) Chronic anticoagulation Current Visit: Yes Status: Acute Assessment and plan: on Xarelto. Patient dose not know why. Will hold as SCR 3.24 [facility] (9) Hyperkalemia Current Visit: Yes Status: Acute Assessment and plan: Worsening overnight despite Kayexalate. I believe there are some peaked T waves on the monitor. Stat EKG ordered. Will go ahead and order Calcium Gluconate again. Albuteral, and kayexalate. increased insulin should help as well. Repeat K after treatment continue telemetry (10) Lactic acidosis Current Visit: Yes Status: Acute (11) Hyponatremia Current Visit: Yes Status: Acute Assessment and plan: acute on chronic. likely secondary to volume depletion Improving. (12) Thrombocytopenia Current Visit: Yes Status: Acute Assessment and plan: mild trend down continue to monitor (13) Urinary tract infection Current Visit: Yes Status: Acute Assessment and plan: cipro (14) Metabolic acidosis Current Visit: Yes Status: Acute Assessment and plan: resolved. however now has low anion Gap? Will Check SPEP, UPEP, and serum free light chains. (15) DVT prophylaxis Current Visit: Yes Status: Acute Assessment and plan: EPCDs - Subjective Interval history: No major events overnight. However patient did have some hyperkalemia that worsened over the day. He did have a potassium of 6.1 over night. I noted he was given calcium gluconate as well as Kayexalate. This morning and is still elevated at 6.1. Do note what appears to be peaked T waves on the monitor. I have ordered a stat EKG, calcium gluconate, albuterol, and Kayexalate. Also increasing his insulin this morning so this should also help to bring his potassium down. This morning Mr. Woodard is alert. He is much more alert today than he was yesterday. He is oriented to person and situation. He does complain of some diarrhea overnight. Of note he has been receiving Kayexalate and lactulose. He denies any blood in his stool. He denies any difficulty breathing. He does admit to some increasing abdominal distention and he feels like his feet are puffy. He denies any chest pain or any other discomfort at this time. Denies any nausea or vomiting. He has no further complaints or concerns at this time. - Constitutional Vitals: Temp Pulse Resp BP Pulse Ox 98.1 F 93 18 126/72 95 08/12/16 05:17 08/12/16 05:17 08/12/16 05:17 08/12/16 05:08/12/16 05:17 Exam: General: This is a well-developed well-nourished 66-year-old male who is currently alert and orientated to person and situation but not time. He is lying in bed appears to be comfortable. He is mildly somnolent but easily awakened. No acute distress at this time. HEENT: Has more cephalic atraumatic. Pupils equally round react light and elevation. Anicteric sclera. Moist because membranes. Neck supple without mass or thyromegaly. Neck is obese. No cervical or supraclavicular lymphadenopathy palpable on exam. Heart: Regular rate and rhythm without murmurs rubs or gallops. Lungs: Clear to auscultation bilaterally. No crackles or crepitus at the bases of the lungs. Abdomen: The abdomen is obese. There are what appears to be a laparotomy and mini laparotomy scars on the abdomen. The abdomen is distended more so than yesterday. Tenderness to palpation in the right upper quadrant but it pierced be less than yesterday. Bowel sounds are positive in all quadrants. No bruits no organomegaly. No appreciable fluid splashed with auscultation. Musculoskeletal: Grossly normal for age no gross deformity is noted. Extremities: There is no clubbing or cyanosis. He does have some mild pedal edema which is new from yesterday bilaterally. Integument: No jaundice, no rash no lesions noted. Internal Medicine: Result - Labs CBC & Chem 7: 08/12/16 01:23 08/12/16 01:23 Labs: Short CBC 08/11/16 08/11/16 08/11/16 Range/Units 07:28 09:26 10:49 WBC 4.7 (4.3-11.1) K/mcL Hgb 8.4 L 8.1 L 8.9 L (12.9-16.9) g/dL Hct 26.2 L 25.9 L 28.4 L (37.5-50.1) % Plt Count 85 L (140-400) K/mcL Neutrophils # 2.4 (1.6-8.9) K/mcL 08/11/16 08/11/16 08/12/16 Range/Units 16:03 16:03 01:23 WBC 4.1 L 3.1 L (4.3-11.1) K/mcL Hgb 8.1 L 8.1 L 8.2 L (12.9-16.9) g/dL Hct 26.1 L 25.4 L 26.3 L (37.5-50.1) % Plt Count 77 L 76 L (140-400) K/mcL Neutrophils # 2.0 1.6 (1.6-8.9) K/mcL BMP 08/11/16 08/11/16 08/12/16 09:26 16:03 01:23 Sodium 126 L 125 L 127 L Potassium 5.4 H 6.1 H 6.0 H Chloride 97 L 99 102 Carbon Dioxide 18 L 17 L 19 BUN 62 H 62 H 52 H Creatinine 3.24 H 2.69 H 1.93 H Glucose 339 H 408 H 463 H Calcium 7.9 L 7.7 L 8.5 L Cardiac Enzymes 08/11/16 08/11/16 Range/Units 07:28 10:49 Troponin I 0.00 0.00 (0-0.03) ng/mL Liver Function 08/12/16 Range/Units 01:23 Total Bilirubin 0.4 (0.2-1.2) mg/dL AST 39 H (5-34) Units/L ALT 35 (0-55) Units/L Alkaline Phosphatase 123 (38-126) Units/L Albumin 2.9 L (3.5-5.0) g/dL Urine 08/11/16 08/11/16 Range/Units 08:50 15:55 Urine Color Yellow Yellow (Yellow) Urine Clarity Cloudy A Clear (Clear) Urine pH 5.5 5.5 (5.0-8.0) pH Units Ur Specific [place] 1.023 1.018 (1.010-1.025) Urine Protein Trace Trace (Neg-Trace) mg/dL Urine Glucose (UA) 100 H 250 H (Normal) mg/dL - ABG Interpretation ABG results: PT/INR, D-dimer PT 17.2 Seconds (9.4-12.1) H 08/10/16 21:09 - Impressions Impressions Retroperitoneum Ultrasound 08/11/16 19:00 IMPRESSION: Unremarkable ultrasound of the kidneys and urinary bladder. D/ / 08/11/2016 21:20:42 Kelton Ortega MD / [facility] Interpreting Provider: Kelton Ortega MD - VTE Documentation of Mechanical Device: Graduated compression elastic hosiery Consult Discharge Plan - Plan [facility]errals: [facility] [Primary Care Provider] - <Piero Macias P - Last Filed: 08/12/16 18:38> - Constitutional Vitals: Temp Pulse Resp BP Pulse Ox 98.0 F 98 18 136/73 96 08/12/16 16:00 08/12/16 16:00 08/12/16 16:00 08/12/16 16:00 08/12/16 16:00 Internal Medicine: Result - Labs CBC & Chem 7: 08/12/16 01:23 08/12/16 12:53 Labs: Short CBC 08/11/16 08/12/16 Range/Units 16:03 01:23 WBC 4.1 L 3.1 L (4.3-11.1) K/mcL Hgb 8.1 L 8.2 L (12.9-16.9) g/dL Hct 25.4 L 26.3 L (37.5-50.1) % Plt Count 77 L 76 L (140-400) K/mcL Neutrophils # 2.0 1.6 (1.6-8.9) K/mcL BMP 08/11/16 08/12/16 08/12/16 16:03 01:23 12:53 Sodium 125 L 127 L Potassium 6.1 H 6.0 H 5.8 H Chloride 99 102 Carbon Dioxide 17 L 19 BUN 62 H 52 H Creatinine 2.69 H 1.93 H Glucose 408 H 463 H Calcium 7.7 L 8.5 L Liver Function 08/12/16 Range/Units 01:23 Total Bilirubin 0.4 (0.2-1.2) mg/dL AST 39 H (5-34) Units/L ALT 35 (0-55) Units/L Alkaline Phosphatase 123 (38-126) Units/L Albumin 2.9 L (3.5-5.0) g/dL - ABG Interpretation ABG results: PT/INR, D-dimer PT 17.2 Seconds (9.4-12.1) H 08/10/16 21:09 - Impressions Impressions Retroperitoneum Ultrasound 08/11/16 19:00 IMPRESSION: Unremarkable ultrasound of the kidneys and urinary bladder. D/ / 08/11/2016 21:20:42 Kelton Ortega MD / [facility] Interpreting Provider: Kelton Ortega MD - Attending Attestation I examined this patient and my medical decision-making was reviewed with the CHARGE MASTER SPECIALIST/PA/Advanced Practice Nurse/Resident Physician. I agree with the documented findings, disposition and treatment plan as described except to the extent set forth below.
[2016-08-12] MEDS: Venlafaxine XR (24 HR) 75 MG CAP.ER.24H PO SCH (08:08)
[2016-08-12] MEDS: levETIRAcetam 250 MG TABLET PO SCH ×2 (08:09→22:21)
[2016-08-12] MEDS: Lactulose Oral Soln 20 GM/30 ML UDC PO SCH ×3 (08:53→22:22)
[2016-08-12] MEDS ORDERED: Insulin DETEMIR 100 UNIT/ML X5UNITS SQ SCH ×2 (09:00→21:00)
[2016-08-12] MEDS: *HR* HYDROcodone/Acet 5/325 mg TABLET PO PRN (10:29)
--- NOTE | 2016-08-12 10:44 | Nephrology Progress Note ---
Date of Encounter: 08/12/16 Time of Encounter: 10:39 - Assessment and Plan (1) Acute kidney injury Current Visit: Yes Status: Acute Patient's renal function is improving slowly. Continue current regimen. Agree with medical management of his hyperkalemia. (2) Cirrhosis Current Visit: Yes Status: Acute GI is following. Qualifiers: Qualified Code(s): K74.60 - Unspecified cirrhosis of liver (3) Anemia Current Visit: Yes Status: Chronic Severe iron deficiency anemia. Will give IV iron dextran. Vitamin B12 and folate -replete. Transfuse as needed. Qualifiers: Anemia type: other cause Other causes of anemia: other cause, not classified Qualified Code(s): D64.89 - Other specified anemias (4) Hyperkalemia Current Visit: Yes Status: Acute Agree with medical management. (5) Hyponatremia Current Visit: Yes Status: Acute Monitor closely. Fluid restriction. Check urine and serum osmolality. Subjective Principal diagnosis: MJ Interval history: Patient seen and evaluated. He is sitting on the edge of the bed. He reports that he is feeling better. No new complaints. ROS stable. Objective - Vital Signs Vital signs: Vital Signs Temp Pulse Resp BP Pulse Ox 08/12/16 07:43 98.2 F 99 18 127/77 95 08/12/16 05:17 98.1 F 93 18 126/72 95 08/12/16 00:07 97.6 F 103 18 123/72 95 08/11/16 21:56 97.8 F 97 16 120/74 94 L 08/11/16 15:56 16 99 08/11/16 15:43 98.0 F 88 18 101/65 93 L 08/11/16 11:55 98.4 F 88 17 91/57 92 L 08/11/16 10:54 20 96 Intake and Output 08/11/16 08/12/16 08/12/16 23:59 07:59 15:59 Intake Total 300 / 300 480 / 480 Output Total 1250 / 1250 3450 / 3450 950 / 950 Balance -950 / -950 -3450 / -3450 -470 / -470 Intake: IV Fluids 300 / 300 Cipro 400 MG/200 ML 400 200 / 200 mg In 200 ml @ 200 mls/hr IVPB Q24H [facility] Rx#: [id number] Flagyl 500 MG/100 ML 500 100 / 100 mg In 100 ml @ 100 mls/hr IVPB Q8HR [facility] Rx#: [id number] Oral 480 / 480 Output: Catheter 1250 / 1250 3450 / 3450 950 / 950 Other: Meal Breakfast Percent of Meal Consumed 90% Stool Size Copious Large Stool Consistency liquid liquid Stool Color Brown Terence Colored # Bowel Movements 1 1 Weight 111.584 kg Blood Glucose* 375 371 Patient Weight 08/12/16 23:59 Weight 111.584 kg - General Appearance General appearance: Present: well-developed, well-nourished, obese EENT: Present: ATNC Neck: Present: supple Respiratory: Present: clear Cardiology: Present: edema, regular rate Gastrointestinal: Present: normoactive bowel sounds, no tenderness Integumentary: Present: warm and dry Neurologic: Present: alert and oriented x3 Musculoskeletal: Present: no cyanosis Psychiatric: Present: mood/affect appropriate - Lab 08/12/16 01:23 08/12/16 01:23 Most recent lab results Calcium 8.5 mg/dL (8.6-10.8) L 08/12/16 01:23 Phosphorus 3.6 mg/dL (2.3-4.7) 08/12/16 01:23 Magnesium 1.8 mg/dL (1.6-2.6) 08/12/16 01:23 Urine Creatinine 84 mg/dL 08/11/16 15:55 Urine Sodium 44.0 mEq/L 08/11/16 15:55 Urine Total Protein 12 mg/dL (1-14) 08/11/16 15:55 - VTE Documentation of Mechanical Device: Graduated compression elastic hosiery Consult Discharge Plan - Plan [facility]errals: [facility] [Primary Care Provider] -
[2016-08-12 10:45] LABS: Hepatitis A Antibody IgM Nonreactive (Nonreactive); Hepatitis B Core IgM Nonreactive (Nonreactive); Hepatitis C Virus Antibody Nonreactive (Nonreactive)
[2016-08-12] MEDS ORDERED: Iron Dextran Complex 1,000 MG in 0.9 % Sodium Chloride 500 ML IVPB ONE ×2 (12:00→16:00)
[2016-08-12] MEDS ORDERED: Insulin LISPRO 300 UNITS/3 ML VIAL SQ ONE (14:21)
[2016-08-12] MEDS: *HR* OxyCODONE/APAP 5/325 TABLET PO PRN ×2 (14:47→23:05)
[2016-08-12] MEDS: RisperiDAL 3 MG TABLET PO SCH (22:21)
[2016-08-12] MEDS: rOPINIRole 1 MG TABLET PO SCH (22:21)
[2016-08-13] MEDS: Ipratropium/Albuterol Neb 3 ML IH SCH ×4 (03:33→23:03)
[2016-08-13 04:59] LABS: Basophils % 0.4 %; Eosinophils # 0.1 K/mcL (0.0-0.6); Eosinophils % 3.5 %; Hematocrit 27.5 % (37.5-50.1); Hemoglobin 8.6 g/dL (12.9-16.9); Lymphocytes # 0.9 K/mcL (0.6-4.6); Mean Corpuscular HGB Conc 31.3 g/dL (31.6-35.5); Mean Corpuscular Hemoglobin 24.7 pg (28.0-33.3); Mean Platelet Volume 10.7 fL (9.4-12.4); Monocytes # 0.3 K/mcL (0.0-1.3); Monocytes % 9.8 %; Red Blood Count 3.48 M/mcL (4.19-5.50); Segmented Neutrophils % 49.3 %
[2016-08-13 05:01] LABS: Neutrophils # 1.2 K/mcL (1.6-8.9); Platelet Count 73 K/mcL (140-400)
[2016-08-13 05:03] LABS: Ionized Calcium 1.19 mmol/L (1.15-1.35)
[2016-08-13 05:11] LABS: Alanine Aminotransferase 42 Units/L (0-55); Albumin 2.9 g/dL (3.5-5.0); Albumin/Globulin Ratio 0.6 (1.1-2.2); Alkaline Phosphatase 136 Units/L (38-126); Aspartate Amino Transferase 49 Units/L (5-34); BUN/Creatinine Ratio 18 (6-26); Bilirubin,Total 0.5 mg/dL (0.2-1.2); Calcium 8.8 mg/dL (8.6-10.8); Carbon Dioxide 25 mEq/L (19-29); Chloride 98 mEq/L (98-109); Globulin 4.8 g/dL (2.4-3.5); Glucose 388 mg/dL (70-99); Magnesium 1.2 mg/dL (1.6-2.6); Osmolality,Calculated 287 (280-300); Sodium 129 mEq/L (136-145); Total Protein 7.7 g/dL (6.0-8.3); eGFR For African Americans > 60 (> 60); eGFR For Non-African Americans > 60 (> 60)
[2016-08-13 05:15] LABS: Blood Urea Nitrogen 21 mg/dL (8-26); Potassium 4.6 mEq/L (3.5-4.5)
[2016-08-13] MEDS ORDERED: Insulin DETEMIR 100 UNIT/ML X5UNITS SQ SCH (06:45)
[2016-08-13] MEDS: levETIRAcetam 250 MG TABLET PO SCH ×2 (08:06→20:06)
[2016-08-13] MEDS: Venlafaxine XR (24 HR) 75 MG CAP.ER.24H PO SCH (08:06)
[2016-08-13] MEDS: Lactulose Oral Soln 20 GM/30 ML UDC PO SCH ×3 (08:07→20:05)
[2016-08-13] MEDS: Insulin LISPRO 300 UNITS/3 ML VIAL SQ SCH ×4 (08:07→11:39)
[2016-08-13] MEDS: *HR* OxyCODONE/APAP 5/325 TABLET PO PRN ×3 (08:15→18:50)
--- NOTE | 2016-08-13 09:00 | Electrocardiograph Report ---
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
[2016-08-13] MEDS ORDERED: 0.9 % Sodium Chloride 1,000 ML IVC SCH (09:25)
--- NOTE | 2016-08-13 09:30 | Nephrology Progress Note ---
Date of Encounter: 08/13/16 Time of Encounter: 11:07 - Assessment and Plan (1) Acute kidney injury Current Visit: Yes Status: Acute SCr 1.20, Na 129, K 4.6, Ca 8.8, Mg 1.2 08/11Urine Na 44, Urine Cr 84, 08/11 FENA 1.1% Renal US WNL, no evidence of hydronephrosis 08/12 UOP 7000, intake 1495, NEGATIVE balance -5535 08/13 UOP 1000 so far Plan: -SCr back to baseline -Agree with 2gm Mag replacement -Continue fluid restrictions -Continue to monitor I/Os, daily weights -Hyperkalemia has resolved, patient has refused kayexalate -Hyponatremia improving -FABRIZIO treated with iron, hgb stable -OK to restart lisinopril 2.5mg -Continue to avoid nephrotoxic agents and renally dose medications. -Nephrology will continue to monitor SCr, Na, K tomorrow. Anticipated continued improvement and that we will sign off tomorrow. (2) Hypotension Current Visit: Yes Status: Acute resovled Qualifiers: Hypotension type: unspecified hypotension type Qualified Code(s): I95.9 - Hypotension, unspecified (3) Hyponatremia Current Visit: Yes Status: Acute improving (4) Anemia Current Visit: Yes Status: Chronic FABRIZIO, patient treated with iron. Patient pancytopenic today, manage per Primary team Qualifiers: Anemia type: other cause Other causes of anemia: other cause, not classified Qualified Code(s): D64.89 - Other specified anemias (5) Cirrhosis of liver Current Visit: Yes Status: Chronic Per GI Qualifiers: Hepatic cirrhosis type: other cirrhosis Qualified Code(s): K74.69 - Other cirrhosis of liver (6) Diabetes Current Visit: Yes Status: Chronic Manage per Primary team Qualifiers: Diabetes mellitus type: type 2 Diabetes mellitus complication status: without complication Diabetes mellitus terminal operator insulin use: with custodial use Qualified Code(s): E11.9 - Type 2 diabetes mellitus without complications ; Z79.4 - [facility]FP (current) use of insulin (7) Hyperkalemia Current Visit: Yes Status: Acute improved Subjective Principal diagnosis: MJ Interval history: Patient seen and examined. He is sitting up at the bedside drinking apple juice. Patient denies cp, sob, abdominal pain, dysuria. Objective - Vital Signs Vital signs: Vital Signs Temp Pulse Resp BP Pulse Ox 08/13/16 07:11 98.5 F 112 18 173/93 96 08/13/16 05:27 98.4 F 97 20 139/81 91 L 08/13/16 01:06 97.5 F L 106 20 174/94 95 08/12/16 21:35 97.8 F 101 16 144/83 08/12/16 16:00 98.0 F 98 18 136/73 96 08/12/16 11:20 97.3 F L 110 18 136/75 95 Intake and Output 08/12/16 08/13/16 08/13/16 23:59 07:59 15:59 Intake Total 540 / 540 240 / 240 Output Total 1350 / 1350 1999 / 1999 Balance -810 / -810 -1760 / -1760 Intake: IV Fluids 300 / 300 Cipro 400 MG/200 ML 400 200 / 200 mg In 200 ml @ 200 mls/hr IVPB Q24H [facility] Rx#: [id number] Flagyl 500 MG/100 ML 500 100 / 100 mg In 100 ml @ 100 mls/hr IVPB Q8HR [facility] Rx#: [id number] Oral 240 / 240 240 / 240 Output: Urine 1000 / 1000 Catheter 1350 / 1350 1000 / 1000 Other: Meal Dinner Percent of Meal Consumed 90% Stool Size Large Stool Consistency loose Stool Color Brown # Bowel Movements 1 Weight 108.953 kg Blood Glucose* 355 334 Patient Weight 08/13/16 23:59 Weight 108.953 kg - General Appearance General appearance: Present: well-developed, well-nourished, obese EENT: Present: ATNC, PERRL, mucous membranes moist Neck: Present: supple Respiratory: Present: clear Cardiology: Present: no murmurs, no rub, no gallops, edema, regular rate, regular rhythm, normal S1, normal S2 Additional Comments: trace Gastrointestinal: Present: normoactive bowel sounds, no tenderness, obese Integumentary: Present: no rash, warm and dry Neurologic: Present: no focal deficit, alert and oriented x3 Musculoskeletal: Present: no deformities, no erythema, no cyanosis, no clubbing Psychiatric: Present: mood/affect appropriate, cooperative - Lab 08/13/16 04:51 08/13/16 04:51 Most recent lab results Calcium 8.8 mg/dL (8.6-10.8) 08/13/16 04:51 Phosphorus 3.6 mg/dL (2.3-4.7) 08/12/16 01:23 Magnesium 1.2 mg/dL (1.6-2.6) L 08/13/16 04:51 Urine Creatinine 84 mg/dL 08/11/16 15:55 Urine Sodium 44.0 mEq/L 08/11/16 15:55 Urine Total Protein 12 mg/dL (1-14) 08/11/16 15:55 - Imaging Kidney/bladder ultrasound: report reviewed Additional Comments: Retroperitoneum Ultrasound 08/11/16 19:00 IMPRESSION: Unremarkable ultrasound of the kidneys and urinary bladder. D/ / 08/11/2016 21:20:42 Kelton Ortega MD / earnold Interpreting Provider: Kelton Ortega MD - VTE Documentation of Mechanical Device: Graduated compression elastic hosiery Consult Discharge Plan - Plan [facility]errals: [facility] [Primary Care Provider[facility] -
[2016-08-13] MEDS: MetroNIDAZOLE 500 MG/100 ML 500 MG/100 ML BAG IVPB SCH ×3 (09:34→23:19)
[2016-08-13] MEDS ORDERED: Magnesium Sulfate 2 GM in D5% in Water 100 ML IVPB ONE (10:34)
[2016-08-13] MEDS ORDERED: Insulin LISPRO 300 UNITS/3 ML VIAL SQ ONE (10:45)
--- NOTE | 2016-08-13 10:48 | Internal Med Progress Note ---
<Salvatore Patterson - Last Filed: 08/13/16 11:12> Date of Encounter: 08/13/16 Time of Encounter: 08:10 - Assessment and plan (1) Metabolic encephalopathy Current Visit: Yes Status: Acute Assessment and plan: Result. I believe this is secondary to a combination of hepatic encephalopathy. He did have a markedly elevated ammonia on admission this is since resolved. Additionally he had a acute kidney injury with serum creatinine 3 times his baseline. This is also resolved and serum creatinine is now near normal. He is now alert and orientated. We will continue his lactulose to decrease the dosage as he is having multiple stools throughout the day we will titrate to 3-4 loose stools per day. Continue rifaximin. (2) Hypotension Current Visit: Yes Status: Acute Assessment and plan: Resolved. Now the patient is hypertensive. I have added some when necessary IV hydralazine. Will slowly reintroduce home medications if okay with nephrology. Qualifiers: Hypotension type: unspecified hypotension type Qualified Code(s): I95.9 - Hypotension, unspecified (3) GI bleed Current Visit: Yes Status: Acute Assessment and plan: No bleeding since admission Hemoglobin stable. Gi consulted Did not recommend Endoscopy Qualifiers: Qualified Code(s): K92.2 - Gastrointestinal hemorrhage, unspecified (4) Acute renal failure Current Visit: Yes Status: Acute Assessment and plan: improved Near baseline Qualifiers: Qualified Code(s): N17.9 - Acute kidney failure, unspecified (5) Cirrhosis Current Visit: Yes Status: Acute Assessment and plan: reportedly from a history of ETOH abuse He is also a diabetic. GI consulted. Child Vázquez class B MELD with Na is now 20 Will continue to monitor closely. Appreciate GIs recommendations. Qualifiers: Qualified Code(s): K74.60 - Unspecified cirrhosis of liver (6) Diabetes Current Visit: Yes Status: Acute Assessment and plan: Still above goal. Will increase levemir to 80 BID. Continue sliding scale high dose. Qualifiers: Qualified Code(s): E11.9 - Type 2 diabetes mellitus without complications (7) Chronic anticoagulation Current Visit: Yes Status: Acute Assessment and plan: on Xarelto. Patient dose not know why. [facility] We will discuss again the patient today in possibly reintroduce Xarelto. (8) Hyperkalemia Current Visit: Yes Status: Acute Assessment and plan: Trending down. Expected improved with renal function improvement. (9) Lactic acidosis Current Visit: Yes Status: Acute Assessment and plan: resolved (10) Hyponatremia Current Visit: Yes Status: Acute Assessment and plan: acute on chronic. likely secondary to volume depletion Improving. TSH and cortisol are normal. His of the elevated uric acid. I think this is likely volume depletion hyponatremia. Lastly has underlying chronic type of natremia secondary to diuretic use and also poor nutrition. (11) Urinary tract infection Current Visit: Yes Status: Acute Assessment and plan: On ciprofloxacin. Day #3. Qualifiers: Qualified Code(s): N39.0 - Urinary tract infection, site not specified (12) Metabolic acidosis Current Visit: Yes Status: Acute Assessment and plan: resolved. He has a low anion gap of 6. SPEP and free light chains are pending. (13) Pancytopenia Current Visit: Yes Status: Acute Assessment and plan: Likely secondary to his cirrhosis and splenomegaly. Continue to monitor (14) Neutropenia Current Visit: Yes Status: Acute Assessment and plan: Mild ANC of 1200. Continue to monitor. Qualifiers: Qualified Code(s): D70.9 - Neutropenia, unspecified (15) DVT prophylaxis Current Visit: Yes Status: Acute Assessment and plan: EPCDs - Subjective Interval history: No major events overnight. This morning the patient is much more alert and orientated. Complain of bilateral chronic knee pain this morning. He repeatedly asked for shots of pain medications. He states he has not been able to make it to rehabilitation because of his repeated hospitalizations. He denies any cough or wheeze dyspnea, chest pain, abdominal pain. He does complain of multiple loose bowels as he has been taking lactulose. He states that he does not take home lactulose as prescribed because of this reason. He denies any further complaints or concerns at this time. - Constitutional Vitals: Temp Pulse Resp BP Pulse Ox 98.5 F 112 18 173/93 96 08/13/16 07:11 08/13/16 07:11 08/13/16 07:11 08/13/16 07:11 08/13/16 08:00 Exam: General: This is a well-developed well-nourished 66-year-old male who is alert and orientated to person place time and situation. He is sitting up in bed appears to be comfortable he is eating breakfast distress at this time. Head: Head is normocephalic and atraumatic. EENT: Anicteric sclera, pupils equally round reactive to light and accommodation , moist mucous membranes, tongue is midline, poor dentition, neck supple without mass or thyromegaly. No cervical or supraclavicular lymphadenopathy palpable on exam. Heart: Heart is regular rate and rhythm without murmurs rubs or gallops. No JVD. Lungs: Clear to auscultation bilaterally normal effort of breathing. Abdomen: Abdomen is obese, distended mildly, there are old areas of the abdomen looks like a laparotomy and also a mini laparotomy scar. Bowel sounds are positive in all 4 quadrants. Mild tenderness to palpation in the right upper quadrant. Musculoskeletal: Grossly normal for age no gross deformities noted. Extremities: There is no clubbing or cyanosis. He does have some new pedal edema of the feet that was absent yesterday. Integument: There is no rashes, jaundice, lesions, telangiectasias noted on exam. Internal Medicine: Result - Labs CBC & Chem 7: 08/13/16 04:51 08/13/16 04:51 Labs: Short CBC 08/13/16 Range/Units 04:51 WBC 2.5 L (4.3-11.1) K/mcL Hgb 8.6 L (12.9-16.9) g/dL Hct 27.5 L (37.5-50.1) % Plt Count 73 L (140-400) K/mcL Neutrophils # 1.2 L (1.6-8.9) K/mcL BMP 08/12/16 08/13/16 12:53 04:51 Sodium 129 L Potassium 5.8 H 4.6 H D Chloride 98 Carbon Dioxide 25 BUN 21 D Creatinine 1.20 Glucose 388 H Calcium 8.8 Liver Function 08/13/16 Range/Units 04:51 Total Bilirubin 0.5 (0.2-1.2) mg/dL AST 49 H (5-34) Units/L ALT 42 (0-55) Units/L Alkaline Phosphatase 136 H (38-126) Units/L Albumin 2.9 L (3.5-5.0) g/dL - ABG Interpretation ABG results: PT/INR, D-dimer PT 17.2 Seconds (9.4-12.1) H 08/10/16 21:09 - VTE Documentation of Mechanical Device: Graduated compression elastic hosiery Consult Discharge Plan - Plan Referrals: [facility] [Primary Care Provider] - <Piero Macias - Last Filed: 08/13/16 18:35> - Constitutional Vitals: Temp Pulse Resp BP Pulse Ox 97.7 F 99 16 143/70 97 08/13/16 16:15 08/13/16 16:15 08/13/16 16:15 08/13/16 16:15 08/13/16 16:15 Internal Medicine: Result - Labs CBC & Chem 7: 08/13/16 04:51 08/13/16 04:51 Labs: Short CBC 08/13/16 Range/Units 04:51 WBC 2.5 L (4.3-11.1) K/mcL Hgb 8.6 L (12.9-16.9) g/dL Hct 27.5 L (37.5-50.1) % Plt Count 73 L (140-400) K/mcL Neutrophils # 1.2 L (1.6-8.9) K/mcL BMP 08/13/16 04:51 Sodium 129 L Potassium 4.6 H D Chloride 98 Carbon Dioxide 25 BUN 21 D Creatinine 1.20 Glucose 388 H Calcium 8.8 Liver Function 08/13/16 Range/Units 04:51 Total Bilirubin 0.5 (0.2-1.2) mg/dL AST 49 H (5-34) Units/L ALT 42 (0-55) Units/L Alkaline Phosphatase 136 H (38-126) Units/L Albumin 2.9 L (3.5-5.0) g/dL - ABG Interpretation ABG results: PT/INR, D-dimer PT 17.2 Seconds (9.4-12.1) H 08/10/16 21:09 - Attending Attestation I examined this patient and my medical decision-making was reviewed with the CLINICAL NURSING DIRECTOR/PA/Advanced Practice Nurse/Resident Physician. I agree with the documented findings, disposition and treatment plan as described except to the extent set forth below.
[2016-08-13] MEDS ORDERED: *HR* Dextrose 50 % in Water (Syg) 50 ML SYRINGE IVP PRN (15:39)
[2016-08-13] MEDS: Insulin Human Regular 100 UNIT in 0.9 % Sodium Chloride 100 ML IVC SCH ×2 (16:30→23:20)
[2016-08-13] MEDS ORDERED: Insulin LISPRO 300 UNITS/3 ML VIAL SQ SCH (17:00)
[2016-08-13] MEDS: *HR* Rivaroxaban 10 MG TABLET PO SCH (17:42)
[2016-08-13] MEDS: RisperiDAL 3 MG TABLET PO SCH (20:05)
[2016-08-13] MEDS: rOPINIRole 1 MG TABLET PO SCH (20:05)
[2016-08-14] MEDS: *HR* OxyCODONE/APAP 5/325 TABLET PO PRN ×3 (02:11→19:28)
[2016-08-14] MEDS ORDERED: Insulin Human Regular 250 UNIT in 0.9 % Sodium Chloride 250 ML IVC SCH (02:15)
[2016-08-14] MEDS: Ipratropium/Albuterol Neb 3 ML IH SCH ×4 (04:50→22:06)
[2016-08-14 04:53] LABS: Immature Granulocytes % 0.4 % (0-4); Red Cell Distribution Width 15.9 % (11.5-14.5)
[2016-08-14 04:55] LABS: Basophils % 0.4 %; Eosinophils # 0.1 K/mcL (0.0-0.6); Eosinophils % 3.4 %; Hematocrit 27.1 % (37.5-50.1); Hemoglobin 8.5 g/dL (12.9-16.9); Immature Platelets 7.2 % (1.1-6.1); Lymphocytes # 0.9 K/mcL (0.6-4.6); Lymphocytes % 34.1 %; Mean Corpuscular HGB Conc 31.4 g/dL (31.6-35.5); Mean Corpuscular Hemoglobin 24.6 pg (28.0-33.3); Mean Corpuscular Volume 78.3 fL (83.0-100.0); Mean Platelet Volume 10.6 fL (9.4-12.4); Monocytes # 0.4 K/mcL (0.0-1.3); Monocytes % 13.5 %; Neutrophils # 1.3 K/mcL (1.6-8.9); Red Blood Count 3.46 M/mcL (4.19-5.50); Segmented Neutrophils % 48.2 %
[2016-08-14 05:10] LABS: BUN/Creatinine Ratio 16 (6-26); Blood Urea Nitrogen 16 mg/dL (8-26); Calcium 9.1 mg/dL (8.6-10.8); Carbon Dioxide 25 mEq/L (19-29); Chloride 101 mEq/L (98-109); Glucose 164 mg/dL (70-99); Osmolality,Calculated 277 (280-300); Sodium 131 mEq/L (136-145); eGFR For African Americans > 60 (> 60); eGFR For Non-African Americans > 60 (> 60)
[2016-08-14 05:17] LABS: Magnesium 1.7 mg/dL (1.6-2.6)
[2016-08-14 05:50] LABS: Platelet Count 79 K/mcL (140-400)
[2016-08-14 06:36] LABS: Platelet Estimate Decreased (Normal)
[2016-08-14 07:49] LABS: Complement Component 3 122 mg/dL (88-201); Complement Component 4 12 mg/dL (10-40)
[2016-08-14] MEDS: Lactulose Oral Soln 20 GM/30 ML UDC PO SCH ×3 (08:27→21:39)
[2016-08-14] MEDS: Venlafaxine XR (24 HR) 75 MG CAP.ER.24H PO SCH (08:27)
[2016-08-14] MEDS: MetroNIDAZOLE 500 MG/100 ML 500 MG/100 ML BAG IVPB SCH ×2 (08:27→15:48)
[2016-08-14] MEDS: levETIRAcetam 250 MG TABLET PO SCH ×2 (08:27→21:38)
[2016-08-14] MEDS ORDERED: Insulin DETEMIR 100 UNIT/ML X5UNITS SQ SCH (10:01)
--- NOTE | 2016-08-14 10:03 | Nephrology Progress Note ---
<Nesha Solano - Last Filed: 08/14/16 14:16> Date of Encounter: 08/14/16 Time of Encounter: 10:42 - Assessment and Plan (1) Acute kidney injury Current Visit: Yes Status: Acute 08/14 SCr 0.97, Na 131, K 5, Mg 1.7 08/11 Urine Na 44, Urine Cr 84, 08/11 FENA 1.1% Renal US WNL, no evidence of hydronephrosis 08/13 UOP 5600, intake 1241, NEGATIVE balance -4359 Patient had elevated blood sugars yesterday despite increases in his insulin regimen. He has been put on an insulin drip today. Plan: -SCr back to baseline -Continue fluid restrictions -Continue to monitor I/Os, daily weights -Hyponatremia improving -FABRIZIO treated with iron, hgb stable -OK to restart lisinopril 2.5mg -Continue to avoid nephrotoxic agents and renally dose medications. (2) Hypotension Current Visit: Yes Status: Acute resovled, ok to continue lisinopril Qualifiers: Hypotension type: unspecified hypotension type Qualified Code(s): I95.9 - Hypotension, unspecified (3) Hyponatremia Current Visit: Yes Status: Acute improving (4) Anemia Current Visit: Yes Status: Chronic FABRIZIO, patient treated with iron. Patient pancytopenic today, manage per Primary team Qualifiers: Anemia type: other cause Other causes of anemia: other cause, not classified Qualified Code(s): D64.89 - Other specified anemias (5) Cirrhosis of liver Current Visit: Yes Status: Chronic Per GI Qualifiers: Hepatic cirrhosis type: other cirrhosis Qualified Code(s): K74.69 - Other cirrhosis of liver (6) Diabetes Current Visit: Yes Status: Chronic Manage per Primary team Qualifiers: Diabetes mellitus type: type 2 Diabetes mellitus complication status: without complication Diabetes mellitus buttermaker continuous churn insulin use: with mcfp use Qualified Code(s): E11.9 - Type 2 diabetes mellitus without complications ; Z79.4 - buttermaker continuous churn (current) use of insulin (7) Hyperkalemia Current Visit: Yes Status: Acute Subjective Principal diagnosis: MJ Interval history: Patient seen and examined. The patient complains of being hungry since he is NPO. Patient denies cp, sob, abdominal pain, dysuria. Objective - Vital Signs Vital signs: Vital Signs Temp Pulse Resp BP Pulse Ox 08/14/16 08:02 97.8 F 106 18 137/72 97 08/14/16 06:10 97.9 F 108 19 134/87 93 L 08/14/16 01:06 98.5 F 99 19 134/84 90 L 08/13/16 21:28 98.2 F 108 16 151/80 95 08/13/16 16:15 97.7 F 99 16 143/70 97 08/13/16 11:18 97.5 F L 98 16 125/74 97 Intake and Output 08/13/16 08/14/16 08/14/16 23:59 07:59 15:59 Intake Total 681.0 / 681.0 265.4 / 265.4 Output Total 3600 / 3600 Balance -2919.0 / -2919.0 265.4 / 265.4 Intake: IV Fluids 201.0 / 201.0 265.4 / 265.4 HumuLIN R 250 UNIT In 0. 101.0 / 101.0 165.4 / 165.4 9 % Sodium Chloride 250 ML @ 14 UNIT/HR 14.14 mls /hr IVC CONT [facility] Rx#: [id number] Flagyl 500 MG/100 ML 500 100 / 100 100 / 100 mg In 100 ml @ 100 mls/hr IVPB Q8HR [facility] Rx#: [id number] Oral 480 / 480 Output: Urine 3600 / 3600 Other: Meal Dinner Percent of Meal Consumed 55% Weight 109.6 kg Blood Glucose* 312 103 131 Patient Weight 08/14/16 23:59 Weight 109.6 kg - General Appearance General appearance: Present: well-developed, well-nourished, obese EENT: Present: ATNC, PERRL, mucous membranes moist Neck: Present: supple Respiratory: Present: clear Cardiology: Present: no murmurs, no rub, no gallops, no edema, regular rate, regular rhythm, normal S1, normal S2 Gastrointestinal: Present: normoactive bowel sounds, no tenderness, obese Integumentary: Present: no rash, warm and dry Neurologic: Present: no focal deficit Musculoskeletal: Present: no deformities, no erythema, no cyanosis, no clubbing Psychiatric: Present: mood/affect appropriate, cooperative - Lab 08/14/16 04:13 08/14/16 04:13 Most recent lab results Calcium 9.1 mg/dL (8.6-10.8) 08/14/16 04:13 Phosphorus 3.6 mg/dL (2.3-4.7) 08/12/16 01:23 Magnesium 1.7 mg/dL (1.6-2.6) 08/14/16 04:13 Urine Creatinine 84 mg/dL 08/11/16 15:55 Urine Sodium 44.0 mEq/L 08/11/16 15:55 Urine Total Protein 12 mg/dL (1-14) 08/11/16 15:55 - Imaging Kidney/bladder ultrasound: report reviewed Additional Comments: Retroperitoneum Ultrasound 08/11/16 19:00 IMPRESSION: Unremarkable ultrasound of the kidneys and urinary bladder. D/ /11/2016 21:20:42 Kelton Ortega MD / earnold Interpreting Provider: Kelton Ortega MD - Allied health notes Allied health notes reviewed: OT - VTE Documentation of Mechanical Device: Graduated compression elastic hosiery Consult Discharge Plan - Plan [facility]errals: [facility] [Primary Care Provider] - <Marleen Valdez - Last Filed: 08/15/16 11:58> Objective - Vital Signs Vital signs: Vital Signs Temp Pulse Resp BP Pulse Ox 08/15/16 11:31 98.3 F 98 18 104/65 96 08/15/16 07:27 98.3 F 100 18 124/78 94 L 08/15/16 04:13 98.1 F 90 18 150/73 94 L 08/14/16 23:15 97.9 F 90 18 143/72 93 L 08/14/16 22:10 99 08/14/16 22:08 99 08/14/16 21:22 97.9 F 101 18 144/79 99 08/14/16 16:21 98 F 110 16 151/68 95 08/14/16 12:00 97.7 F 108 16 153/78 93 L Intake and Output 08/14/16 08/15/16 08/15/16 23:59 07:59 15:59 Intake Total 460 / 460 100 / 100 480 / 480 Output Total 0 / 0 Balance 460 / 460 100 / 100 480 / 480 Intake: IV Fluids 100 / 100 100 / 100 Flagyl 500 MG/100 ML 500 100 / 100 100 / 100 mg In 100 ml @ 100 mls/hr IVPB Q8HR [facility] Rx#: [id number] Oral 360 / 360 480 / 480 Output: Urine 0 / 0 Other: Meal Dinner Breakfast Percent of Meal Consumed 80% 100% # Voids 1 Blood Glucose* 307 247 308 - Lab 08/15/16 06:22 08/15/16 06:22 Most recent lab results Calcium 8.5 mg/dL (8.6-10.8) L 08/15/16 06:22 Phosphorus 3.6 mg/dL (2.3-4.7) 08/12/16 01:23 Magnesium 1.7 mg/dL (1.6-2.6) 08/14/16 04:13 Urine Creatinine 84 mg/dL 08/11/16 15:55 Urine Sodium 44.0 mEq/L 08/11/16 15:55 Urine Total Protein 12 mg/dL (1-14) 08/11/16 15:55 - Attending Attestation I examined this patient and my medical decision-making was reviewed with the RE[employer]IVER/PA/Advanced Practice Nurse/Resident Physician. I agree with the documented findings, disposition and treatment plan as described except to the extent set forth below. Pt seen and examined with erratic blood sugars due to noncompliance with diet. Renal function now normalized. Potassium slightly elevated likely due to hyperglycemia, management per primary team. Sodium improving but hindered by hyperglycemia as well. Will sign off but continue to monitor labs while hospitalized. Please, reconsult prn.
--- NOTE | 2016-08-14 10:36 | Internal Med Progress Note ---
<Salvatore Patterson - Last Filed: 08/14/16 10:55> Date of Encounter: 08/14/16 Time of Encounter: 10:33 - Assessment and plan (1) Metabolic encephalopathy Current Visit: Yes Status: Acute Assessment and plan: Result. I believe this is secondary to a combination of hepatic encephalopathy. He did have a markedly elevated ammonia on admission this is since resolved. Additionally he had a acute kidney injury with serum creatinine 3 times his baseline. This is also resolved and serum creatinine is now normal. He is now alert and orientated. patient is refusing lactulose. I educated him on this yesterday but continues to refuse. I will continue to attempt education. (2) Hypotension Current Visit: Yes Status: Acute Assessment and plan: Resolved. Now the patient is hypertensive. I have added some when necessary IV hydralazine. hold off on lisinopril with his Hyperkalemia. Qualifiers: Hypotension type: unspecified hypotension type Qualified Code(s): I95.9 - Hypotension, unspecified (3) GI bleed Current Visit: Yes Status: Acute Assessment and plan: No bleeding since admission Hemoglobin stable. Gi consulted Did not recommend Endoscopy possible colitis. continue Cipro /Flagyl. will give 7 day course. Qualifiers: Qualified Code(s): K92.2 - Gastrointestinal hemorrhage, unspecified (4) Acute renal failure Current Visit: Yes Status: Acute Assessment and plan: Per rifle criteria. However never oliguric. Resolved. I think most likely this was prerenal from dehydration. However interestingly enough he has a positive Anti Streptolysin O. However C3 is normal. However with the patients hypotension and normal C3 I think that dehydration and diuretic usage is a better explanation than Poststreptococcal GN. We do Appreciate Nephrologies input. Qualifiers: Qualified Code(s): N17.9 - Acute kidney failure, unspecified (5) Cirrhosis Current Visit: Yes Status: Acute Assessment and plan: reportedly from a history of ETOH abuse He is also a diabetic. GI consulted. Child Vázquez class B MELD with Na is now 17 Will continue to monitor closely. Appreciate GIs recommendations. Qualifiers: Qualified Code(s): K74.60 - Unspecified cirrhosis of liver (6) Diabetes Current Visit: Yes Status: Acute Assessment and plan: uncontolled. we had to start insulin gtt yesterday despite increasing insulin. we will transition back to SQ insulin. today. Qualifiers: Qualified Code(s): E11.9 - Type 2 diabetes mellitus without complications (7) Chronic anticoagulation Current Visit: Yes Status: Acute Assessment and plan: on Xarelto. secondary to having a spontaneous DVT in the past. Renal function now normal we will continue (8) Hyperkalemia Current Visit: Yes Status: Acute Assessment and plan: trending up Now 5.0 patient refusing Kayexalate. Should improve with better glycemic control. will also place him on Renal diet. (9) Lactic acidosis Current Visit: Yes Status: Acute Assessment and plan: resolved (10) Hyponatremia Current Visit: Yes Status: Acute Assessment and plan: acute on chronic. likely secondary to volume depletion Improving. TSH and cortisol are normal. His of the elevated uric acid. I think this is likely volume depletion hyponatremia. Lastly has underlying chronic type of hyponatremia secondary to diuretic use and also poor nutrition. (11) Urinary tract infection Current Visit: Yes Status: Acute Assessment and plan: On ciprofloxacin. Day #4. Qualifiers: Qualified Code(s): N39.0 - Urinary tract infection, site not specified (12) Metabolic acidosis Current Visit: Yes Status: Acute Assessment and plan: resolved. AG 5 today. SPEP and free light chains are pending. (13) Pancytopenia Current Visit: Yes Status: Acute Assessment and plan: Likely secondary to his cirrhosis and splenomegaly. Continue to monitor (14) Neutropenia Current Visit: Yes Status: Acute Assessment and plan: Mild/ improving ANC of 1300. Continue to monitor. Qualifiers: Qualified Code(s): D70.9 - Neutropenia, unspecified (15) DVT prophylaxis Current Visit: Yes Status: Acute Assessment and plan: EPCDs - Subjective Interval history: No major events overnight. This Am the patient states that he is feeling better. He is mentating normally today. He states that he dose have some right knee pain. He states tht it is chronic but it is worse the past 2-3 days. He denies any dyspnea, cough, wheeeze, chest pain/ He has no further complaints or concerns at this time. - Constitutional Vitals: Temp Pulse Resp BP Pulse Ox 97.8 F 106 18 137/72 97 08/14/16 08:02 08/14/16 08:02 08/14/16 08:02 08/14/16 08:02 08/14/16 08:02 Exam: General: This is a well-developed well-nourished 66-year-old male who is alert and orientated worse with some situation. He is lying in bed. She comfortable in no acute distress this time. Head: Head is more cephalic and atraumatic. EENT: Anicteric sclerae, pupils round react light and accommodation normal external appearance of ears nose and eyes. Moist mucous nares. Neck is supple without masses thyromegaly. No cervical or supraclavicular lymphadenopathy palpable on exam. Heart: Regular rate and rhythm without murmurs rubs or gallops. Lungs: Clearbilaterally. Normal effort of breathing. Abdomen: He does have surgical scars, obese, distended slightly, bowel sounds positive in all 4 quadrants. No tenderness to palpation. Musculoskeletal: Grossly normal for a sugar storing noted. Surgical scars on both knees appears to have had total knee replacements bilaterally. No tenderness or warmth or crepitus the knees bilaterally. Integument: No rashes or lesions or jaundice. Extremities: No clubbing, cyanosis, or edema. Internal Medicine: Result - Labs CBC & Chem 7: 08/14/16 04:13 08/14/16 04:13 Labs: Short CBC 08/14/16 Range/Units 04:13 WBC 2.7 L (4.3-11.1) K/mcL Hgb 8.5 L (12.9-16.9) g/dL Hct 27.1 L (37.5-50.1) % Plt Count 79 L (140-400) K/mcL Neutrophils # 1.3 L (1.6-8.9) K/mcL BMP 08/14/16 04:13 Sodium 131 L Potassium 5.0 H Chloride 101 Carbon Dioxide 25 BUN 16 Creatinine 0.97 Glucose 164 H Calcium 9.1 - ABG Interpretation ABG results: PT/INR, D-dimer PT 17.2 Seconds (9.4-12.1) H 08/10/16 21:09 - VTE Documentation of Mechanical Device: Graduated compression elastic hosiery Consult Discharge Plan - Plan [facility]errals: [facility] [Primary Care Provider[facility] - <Piero Macias P - Last Filed: 08/14/16 18:23> - Constitutional Vitals: Temp Pulse Resp BP Pulse Ox 98 F 110 16 151/68 95 08/14/16 16:21 08/14/16 16:21 08/14/16 16:21 08/14/16 16:21 08/14/16 16:21 Internal Medicine: Result - Labs CBC & Chem 7: 08/14/16 04:13 08/14/16 04:13 Labs: Short CBC 08/14/16 Range/Units 04:13 WBC 2.7 L (4.3-11.1) K/mcL Hgb 8.5 L (12.9-16.9) g/dL Hct 27.1 L (37.5-50.1) % Plt Count 79 L (140-400) K/mcL Neutrophils # 1.3 L (1.6-8.9) K/mcL BMP 08/14/16 04:13 Sodium 131 L Potassium 5.0 H Chloride 101 Carbon Dioxide 25 BUN 16 Creatinine 0.97 Glucose 164 H Calcium 9.1 - ABG Interpretation ABG results: PT/INR, D-dimer PT 17.2 Seconds (9.4-12.1) H 08/10/16 21:09 - Impressions Impressions Knee X-Ray 08/14/16 10:33 IMPRESSION: No acute findings. D/ / Alba Conn MD / Alba Conn MD Interpreting Provider: Alba Conn MD - Attending Attestation I examined this patient and my medical decision-making was reviewed with the DIE CAST SUPERVISOR/PA/Advanced Practice Nurse/Resident Physician. I agree with the documented findings, disposition and treatment plan as described except to the extent set forth below. insulin drip d/c eating well awaiting placement.
[2016-08-14] MEDS: Insulin DETEMIR 100 UNIT/ML X5UNITS SQ SCH ×2 (10:39→21:38)
[2016-08-14] MEDS: Insulin LISPRO 300 UNITS/3 ML VIAL SQ SCH ×5 (11:36→21:38)
[2016-08-14 12:37] LABS: F-Actin (sm muscle) Ab IgG 29 Units (0-19)
[2016-08-14] MEDS: *HR* Rivaroxaban 10 MG TABLET PO SCH (15:48)
[2016-08-14 18:10] LABS: Kappa Qnt Free Light Chains 8.41 mg/dL (0.33-1.94); Lambda Qnt Free Light Chains 3.22 mg/dL (0.57-2.63)
[2016-08-14] MEDS: RisperiDAL 3 MG TABLET PO SCH (21:38)
[2016-08-14] MEDS: rOPINIRole 1 MG TABLET PO SCH (21:38)
[2016-08-14 23:32] LABS: Alpha 2 Globulin (PEP) 0.68 g/dL (0.48-1.05); Beta Globulin (PEP) 1.07 g/dL (0.48-1.10)
[2016-08-15] MEDS: MetroNIDAZOLE 500 MG/100 ML 500 MG/100 ML BAG IVPB SCH ×4 (00:36→23:45)
[2016-08-15] MEDS: Ipratropium/Albuterol Neb 3 ML IH SCH ×4 (04:56→22:56)
[2016-08-15 06:53] LABS: BUN/Creatinine Ratio 13 (6-26); Blood Urea Nitrogen 14 mg/dL (8-26); Carbon Dioxide 24 mEq/L (19-29); Chloride 100 mEq/L (98-109); Potassium 4.7 mEq/L (3.5-4.5); Sodium 131 mEq/L (136-145)
[2016-08-15 06:54] LABS: Calcium 8.5 mg/dL (8.6-10.8); Glucose 262 mg/dL (70-99); Osmolality,Calculated 282 (280-300); eGFR For African Americans > 60 (> 60); eGFR For Non-African Americans > 60 (> 60)
[2016-08-15 07:07] LABS: Basophils % 0.6 %
[2016-08-15 07:09] LABS: Eosinophils # 0.1 K/mcL (0.0-0.6); Eosinophils % 4.1 %; Hematocrit 28.4 % (37.5-50.1); Immature Granulocytes % 0.3 % (0-4); Immature Platelets 5.6 % (1.1-6.1); Lymphocytes # 1.1 K/mcL (0.6-4.6); Lymphocytes % 34.2 %; Mean Corpuscular HGB Conc 31.7 g/dL (31.6-35.5); Mean Corpuscular Hemoglobin 25.1 pg (28.0-33.3); Mean Corpuscular Volume 79.1 fL (83.0-100.0); Mean Platelet Volume 11.2 fL (9.4-12.4); Monocytes # 0.4 K/mcL (0.0-1.3); Monocytes % 11.3 %; Neutrophils # 1.6 K/mcL (1.6-8.9); Red Blood Count 3.59 M/mcL (4.19-5.50); Red Cell Distribution Width 15.9 % (11.5-14.5); Segmented Neutrophils % 49.5 %
[2016-08-15 07:31] LABS: Platelet Count 84 K/mcL (140-400)
[2016-08-15] MEDS: levETIRAcetam 250 MG TABLET PO SCH ×2 (08:39→20:10)
[2016-08-15] MEDS: Venlafaxine XR (24 HR) 75 MG CAP.ER.24H PO SCH (08:39)
[2016-08-15] MEDS: *HR* OxyCODONE/APAP 5/325 TABLET PO PRN ×2 (08:40→18:04)
[2016-08-15] MEDS: Insulin DETEMIR 100 UNIT/ML X5UNITS SQ SCH ×2 (08:40→20:14)
[2016-08-15] MEDS: Insulin LISPRO 300 UNITS/3 ML VIAL SQ SCH ×7 (08:40→20:18)
[2016-08-15] MEDS: Lactulose Oral Soln 20 GM/30 ML UDC PO SCH ×3 (08:49→20:01)
[2016-08-15 09:35] LABS: Platelet Estimate Slight Decrease (Normal)
[2016-08-15] MEDS: 0.9 % Sodium Chloride 1,000 ML IVC SCH (16:45)
[2016-08-15] MEDS: *HR* Rivaroxaban 10 MG TABLET PO SCH (16:45)
--- NOTE | 2016-08-15 17:56 | Internal Med Progress Note ---
Date of Encounter: 08/15/16 Time of Encounter: 17:54 - Assessment and plan (1) Metabolic encephalopathy Current Visit: Yes Status: Acute Assessment and plan: Resolving metabolic encephalopathy. It was a combination of hepatic impairment encephalopathy along with the infection Patient is getting better. Noted patient had a couple of episodes of sinus tachycardia today. Patient is on appropriate antibiotics. Started patient on IV fluids 70 mL/h (2) GI bleed Current Visit: Yes Status: Acute Assessment and plan: No more further GI bleed. GI recommended no endoscopy at this point. Hemoglobin and hematocrit is stable. Qualifiers: Qualified Code(s): K92.2 - Gastrointestinal hemorrhage, unspecified (3) Acute renal failure Current Visit: Yes Status: Acute Assessment and plan: Per rifle criteria. However never oliguric. Resolved. I think most likely this was prerenal from dehydration. However interestingly enough he has a positive Anti Streptolysin O. However C3 is normal. However with the patients hypotension and normal C3 I think that dehydration and diuretic usage is a better explanation than Poststreptococcal GN. We do Appreciate Nephrologies input. 08/15/2016. Nephrology input appreciated. Qualifiers: Qualified Code(s): N17.9 - Acute kidney failure, unspecified (4) Cirrhosis Current Visit: Yes Status: Acute Assessment and plan: reportedly from a history of ETOH abuse He is also a diabetic. GI consulted. Child Vázquez class B MELD with Na is now 17 Will continue to monitor closely. Appreciate GIs recommendations. Qualifiers: Qualified Code(s): K74.60 - Unspecified cirrhosis of liver - Subjective Interval history: seen and examined patient claims that he is fatigued no new complaints other than that. - Constitutional Vitals: Temp Pulse Resp BP Pulse Ox 98.2 F 109 18 109/68 94 L 08/15/16 16:33 08/15/16 16:33 08/15/16 16:33 08/15/16 16:33 08/15/16 16:33 General appearance: Present: disheveled, A&O X 2, mild distress, morbidly obese. Absent: answers questions appropriately - Head Head exam: Present: atraumatic, normocephalic - Eye Eye exam: Present: PERRL, conjuntiva pink, sclera anicteric Pupils: Present: PERRL - Neck Neck exam general surgery: Present: supple, trachea midline. Absent: lymphadenopathy - Respiratory Respiratory exam: Present: CTAB. Absent: accessory muscle use, rales, rhonchi, wheezes - Cardiovascular Cardiovascular exam: Present: RRR, +S1, +S2. Absent: diastolic murmur, gallop, rubs, systolic murmur - GI/Abdominal GI/Abdominal exam: Present: normal bowel sounds, soft, no peritoneal signs. Absent: distended, tenderness - Extremities Exam Extremities exam: Present: warm, radial pulses palpable and symetrical. Absent : calf tenderness, cyanotic, pedal edema - Neurological Exam Neurological exam: Present: CN II-XII intact, oriented X3, no focal deficits. Absent: pronater drift, facial droop, speech deficit - Skin Skin exam: Present: dry, intact Internal Medicine: Result - Labs CBC & Chem 7: 08/15/16 06:22 08/15/16 06:22 Labs: Short CBC 08/15/16 Range/Units 06:22 WBC 3.2 L (4.3-11.1) K/mcL Hgb 9.0 L (12.9-16.9) g/dL Hct 28.4 L (37.5-50.1) % Plt Count 84 L (140-400) K/mcL Neutrophils # 1.6 (1.6-8.9) K/mcL BMP 08/15/16 06:22 Sodium 131 L Potassium 4.7 H Chloride 100 Carbon Dioxide 24 BUN 14 Creatinine 1.06 Glucose 262 H Calcium 8.5 L - ABG Interpretation ABG results: PT/INR, D-dimer PT 17.2 Seconds (9.4-12.1) H 08/10/16 21:09 - VTE Documentation of Mechanical Device: Graduated compression elastic hosiery Consult Discharge Plan - Plan [facility]errals: [facility] [Primary Care Provider] -
[2016-08-15] MEDS ORDERED: *HR* Morphine 2 MG/ML SYRINGE IVP ONE (18:45)
[2016-08-15] MEDS ORDERED: *HR* HYDROmorphone (PF) 1 MG/ML SYRINGE IVP ONE (19:47)
[2016-08-15] MEDS: rOPINIRole 1 MG TABLET PO SCH (20:10)
[2016-08-15] MEDS: RisperiDAL 3 MG TABLET PO SCH (20:10)
[2016-08-15 20:13] LABS: Smooth Muscle Ab Titer IgG <1:20 (<1:20)
[2016-08-15 20:16] LABS: IFE Reflexed IFE Done; Immunoglobulin A 327 mg/dL (68-408); Immunoglobulin G 2240 mg/dL (768-1632); Immunoglobulin M 138 mg/dL (35-263)
[2016-08-16] MEDS: Ipratropium/Albuterol Neb 3 ML IH SCH ×4 (04:34→21:46)
[2016-08-16] MEDS ORDERED: *HR* Morphine 2 MG/ML SYRINGE IVP ONE (05:04)
[2016-08-16 05:51] LABS: Red Cell Distribution Width 16.4 % (11.5-14.5)
[2016-08-16 05:53] LABS: Basophils % 0.6 %; Eosinophils # 0.1 K/mcL (0.0-0.6); Eosinophils % 3.5 %; Hematocrit 30.5 % (37.5-50.1); Hemoglobin 9.6 g/dL (12.9-16.9); Immature Granulocytes % 0.6 % (0-4); Immature Platelets 6.7 % (1.1-6.1); Lymphocytes # 1.1 K/mcL (0.6-4.6); Lymphocytes % 31.3 %; Mean Corpuscular HGB Conc 31.5 g/dL (31.6-35.5); Mean Corpuscular Hemoglobin 24.9 pg (28.0-33.3); Mean Corpuscular Volume 79.2 fL (83.0-100.0); Mean Platelet Volume 10.6 fL (9.4-12.4); Monocytes # 0.3 K/mcL (0.0-1.3); Monocytes % 9.6 %; Neutrophils # 1.9 K/mcL (1.6-8.9); Red Blood Count 3.85 M/mcL (4.19-5.50); Segmented Neutrophils % 54.4 %
[2016-08-16 05:55] LABS: Platelet Count 92 K/mcL (140-400)
[2016-08-16 05:56] LABS: Alanine Aminotransferase 40 Units/L (0-55); Albumin 3.1 g/dL (3.5-5.0); Albumin/Globulin Ratio 0.6 (1.1-2.2); Alkaline Phosphatase 144 Units/L (38-126); Aspartate Amino Transferase 39 Units/L (5-34); BUN/Creatinine Ratio 14 (6-26); Bilirubin,Total 0.4 mg/dL (0.2-1.2); Blood Urea Nitrogen 16 mg/dL (8-26); Carbon Dioxide 25 mEq/L (19-29); Chloride 99 mEq/L (98-109); Glucose 286 mg/dL (70-99); Osmolality,Calculated 284 (280-300); Potassium 4.3 mEq/L (3.5-4.5); Sodium 131 mEq/L (136-145); Total Protein 8.1 g/dL (6.0-8.3); eGFR For African Americans > 60 (> 60); eGFR For Non-African Americans > 60 (> 60)
[2016-08-16] MEDS: 0.9 % Sodium Chloride 1,000 ML IVC SCH (08:18)
[2016-08-16] MEDS: levETIRAcetam 250 MG TABLET PO SCH ×2 (08:18→21:47)
[2016-08-16] MEDS: Insulin DETEMIR 100 UNIT/ML X5UNITS SQ SCH ×2 (08:19→21:48)
[2016-08-16] MEDS: Venlafaxine XR (24 HR) 75 MG CAP.ER.24H PO SCH (08:19)
[2016-08-16] MEDS: MetroNIDAZOLE 500 MG/100 ML 500 MG/100 ML BAG IVPB SCH ×3 (08:19→23:16)
[2016-08-16] MEDS: Insulin LISPRO 300 UNITS/3 ML VIAL SQ SCH ×7 (08:20→21:50)
[2016-08-16] MEDS: Lactulose Oral Soln 20 GM/30 ML UDC PO SCH ×3 (08:20→20:37)
[2016-08-16] MEDS ORDERED: *HR* HYDROmorphone (PF) 1 MG/ML SYRINGE IVP ONE ×2 (08:54→22:58)
[2016-08-16] MEDS: *HR* OxyCODONE/APAP 5/325 TABLET PO PRN ×2 (12:38→20:36)
[2016-08-16] MEDS: *HR* HYDROmorphone (PF) 1 MG/ML SYRINGE IVP PRN ×3 (14:46→23:52)
--- NOTE | 2016-08-16 15:11 | Internal Med Progress Note ---
Date of Encounter: 08/16/16 Time of Encounter: 15:08 - Assessment and plan (1) Metabolic encephalopathy Current Visit: Yes Status: Acute Assessment and plan: Resolving metabolic encephalopathy. It was a combination of hepatic impairment encephalopathy along with the infection Patient is getting better. Noted patient had a couple of episodes of sinus tachycardia today. Patient is on appropriate antibiotics. Started patient on IV fluids 70 mL/h 08/16/2016 getting better asking for pain medications with narcotic pain meds ,his HR is with in normal limits without narcotic meds, he is tachycardic he has narcotic dependency (2) GI bleed Current Visit: Yes Status: Acute Assessment and plan: No more further GI bleed. GI recommended no endoscopy at this point. Hemoglobin and hematocrit is stable. Qualifiers: Qualified Code(s): K92.2 - Gastrointestinal hemorrhage, unspecified (3) Acute renal failure Current Visit: Yes Status: Acute Assessment and plan: Per rifle criteria. However never oliguric. Resolved. I think most likely this was prerenal from dehydration. However interestingly enough he has a positive Anti Streptolysin O. However C3 is normal. However with the patients hypotension and normal C3 I think that dehydration and diuretic usage is a better explanation than Poststreptococcal GN. We do Appreciate Nephrologies input. 08/15/2016. Nephrology input appreciated. Qualifiers: Qualified Code(s): N17.9 - Acute kidney failure, unspecified (4) Cirrhosis Current Visit: Yes Status: Acute Assessment and plan: reportedly from a history of ETOH abuse He is also a diabetic. GI consulted. Child Vázquez class B MELD with Na is now 18 Will continue to monitor closely. Appreciate GIs recommendations. Qualifiers: Qualified Code(s): K74.60 - Unspecified cirrhosis of liver - Subjective Interval history: seen and examined patient claims that he is fatigued no new complaints other than that. 08/16/2016 has generalized pain asking for pain medications with narcotic pain meds ,his HR is with in normal limits without narcotic meds, he is tachycardic he has narcotic dependency - Constitutional Vitals: Temp Pulse Resp BP Pulse Ox 97.5 F L 103 18 152/82 95 08/16/16 11:00 08/16/16 11:00 08/16/16 11:00 08/16/16 11:00 08/16/16 11:00 General appearance: Present: disheveled, A&O X 2, mild distress, morbidly obese. Absent: answers questions appropriately - Head Head exam: Present: atraumatic, normocephalic - Eye Eye exam: Present: PERRL, conjuntiva pink, sclera anicteric Pupils: Present: PERRL - Neck Neck exam general surgery: Present: supple, trachea midline. Absent: lymphadenopathy - Respiratory Respiratory exam: Present: CTAB. Absent: accessory muscle use, rales, rhonchi, wheezes - Cardiovascular Cardiovascular exam: Present: RRR, +S1, +S2. Absent: diastolic murmur, gallop, rubs, systolic murmur - GI/Abdominal GI/Abdominal exam: Present: normal bowel sounds, soft, no peritoneal signs. Absent: distended, tenderness - Extremities Exam Extremities exam: Present: warm, radial pulses palpable and symetrical. Absent : calf tenderness, cyanotic, pedal edema - Neurological Exam Neurological exam: Present: CN II-XII intact, oriented X3, no focal deficits. Absent: pronater drift, facial droop, speech deficit - Skin Skin exam: Present: dry, intact Internal Medicine: Result - Labs CBC & Chem 7: 08/16/16 05:39 08/16/16 05:39 Labs: Short CBC 08/16/16 Range/Units 05:39 WBC 3.5 L (4.3-11.1) K/mcL Hgb 9.6 L (12.9-16.9) g/dL Hct 30.5 L (37.5-50.1) % Plt Count 92 L (140-400) K/mcL Neutrophils # 1.9 (1.6-8.9) K/mcL BMP 08/16/16 05:39 Sodium 131 L Potassium 4.3 Chloride 99 Carbon Dioxide 25 BUN 16 Creatinine 1.17 Glucose 286 H Calcium 9.0 Liver Function 08/16/16 Range/Units 05:39 Total Bilirubin 0.4 (0.2-1.2) mg/dL AST 39 H (5-34) Units/L ALT 40 (0-55) Units/L Alkaline Phosphatase 144 H (38-126) Units/L Albumin 3.1 L (3.5-5.0) g/dL - ABG Interpretation ABG results: PT/INR, D-dimer PT 17.2 Seconds (9.4-12.1) H 08/10/16 21:09 - VTE Documentation of Mechanical Device: Graduated compression elastic hosiery Consult Discharge Plan - Plan [facility]errals: [facility] [Primary Care Provider] -
[2016-08-16] MEDS: *HR* Rivaroxaban 10 MG TABLET PO SCH (16:58)
[2016-08-16] MEDS: RisperiDAL 3 MG TABLET PO SCH (21:47)
[2016-08-16] MEDS: rOPINIRole 1 MG TABLET PO SCH (21:48)
[2016-08-17] MEDS: *HR* OxyCODONE/APAP 5/325 TABLET PO PRN (03:10)
[2016-08-17] MEDS: *HR* HYDROmorphone (PF) 1 MG/ML SYRINGE IVP PRN ×4 (03:41→20:16)
[2016-08-17] MEDS: Ipratropium/Albuterol Neb 3 ML IH SCH ×4 (03:44→22:48)
[2016-08-17 03:45] LABS: Basophils % 0.8 %; Eosinophils # 0.1 K/mcL (0.0-0.6); Eosinophils % 3.4 %; Hematocrit 28.5 % (37.5-50.1); Immature Granulocytes % 1.1 % (0-4); Immature Platelets 6.7 % (1.1-6.1); Lymphocytes # 1.2 K/mcL (0.6-4.6); Lymphocytes % 30.4 %; Mean Corpuscular HGB Conc 31.6 g/dL (31.6-35.5); Mean Corpuscular Hemoglobin 25.3 pg (28.0-33.3); Mean Corpuscular Volume 80.1 fL (83.0-100.0); Mean Platelet Volume 10.7 fL (9.4-12.4); Monocytes # 0.4 K/mcL (0.0-1.3); Monocytes % 9.5 %; Neutrophils # 2.1 K/mcL (1.6-8.9); Red Blood Count 3.56 M/mcL (4.19-5.50); Red Cell Distribution Width 16.8 % (11.5-14.5); Segmented Neutrophils % 54.8 %
[2016-08-17 03:54] LABS: Platelet Count 86 K/mcL (140-400)
[2016-08-17 03:56] LABS: BUN/Creatinine Ratio 13 (6-26); Blood Urea Nitrogen 17 mg/dL (8-26); Calcium 8.6 mg/dL (8.6-10.8); Carbon Dioxide 24 mEq/L (19-29); Chloride 100 mEq/L (98-109); Glucose 365 mg/dL (70-99); Osmolality,Calculated 286 (280-300); Potassium 4.8 mEq/L (3.5-4.5); Sodium 130 mEq/L (136-145); eGFR For African Americans > 60 (> 60); eGFR For Non-African Americans 56 (> 60)
[2016-08-17] MEDS: Insulin LISPRO 300 UNITS/3 ML VIAL SQ SCH ×7 (09:11→20:21)
[2016-08-17] MEDS: Lactulose Oral Soln 20 GM/30 ML UDC PO SCH ×3 (09:14→20:24)
[2016-08-17] MEDS: levETIRAcetam 250 MG TABLET PO SCH ×2 (09:15→20:18)
[2016-08-17] MEDS: Venlafaxine XR (24 HR) 75 MG CAP.ER.24H PO SCH (09:15)
[2016-08-17] MEDS: MetroNIDAZOLE 500 MG/100 ML 500 MG/100 ML BAG IVPB SCH ×2 (09:16→16:50)
[2016-08-17] MEDS: Insulin DETEMIR 100 UNIT/ML X5UNITS SQ SCH ×3 (09:25→20:24)
--- NOTE | 2016-08-17 15:23 | Electrocardiograph Report ---
[place] [id number] Test Date: 2016-08-15 Pat Name: Teddy Ramirez Department: 112 Room: 2A Gender: M Weed Cutter: : 1950 Requested By: Piero Macias Order Number: [id number] Reading MD: Augustine Woodard Measurements Intervals [place] Rate: 108 P: 49 ID: [id number] QRS: 6 QRSD: 99 T: 36 QT: 336 QTc: 400 Interpretive Statements SINUS TACHYCARDIA Electronically Signed On 08-17-2016 15:22:13 EDT by Augustine Woodard
--- NOTE | 2016-08-17 16:45 | Internal Med Progress Note ---
Date of Encounter: 08/17/16 Time of Encounter: 16:43 - Assessment and plan (1) Metabolic encephalopathy Current Visit: Yes Status: Acute Assessment and plan: Resolving metabolic encephalopathy. It was a combination of hepatic impairment encephalopathy along with the infection ( Colitis) Patient is getting better. Noted patient had a couple of episodes of sinus tachycardia today. Patient is on appropriate antibiotics. Started patient on IV fluids 70 mL/h 08/16/2016 getting better asking for pain medications with narcotic pain meds ,his HR is with in normal limits without narcotic meds, he is tachycardic he has narcotic dependency 08/17/2016 resolving metabolic encehalopathy ( hepatic impairment and Colitis) On cipro and flagyl ( day 7) Need total 10 days of therapy awaiting for placement. narcotic dependency (2) GI bleed Current Visit: Yes Status: Acute Assessment and plan: No more further GI bleed. GI recommended no endoscopy at this point. Hemoglobin and hematocrit is stable. Qualifiers: Qualified Code(s): K92.2 - Gastrointestinal hemorrhage, unspecified (3) Acute renal failure Current Visit: Yes Status: Acute Assessment and plan: Per rifle criteria. However never oliguric. Resolved. I think most likely this was prerenal from dehydration. However interestingly enough he has a positive Anti Streptolysin O. However C3 is normal. However with the patients hypotension and normal C3 I think that dehydration and diuretic usage is a better explanation than Poststreptococcal GN. We do Appreciate Nephrologies input. 08/15/2016. Nephrology input appreciated. Qualifiers: Qualified Code(s): N17.9 - Acute kidney failure, unspecified (4) Cirrhosis Current Visit: Yes Status: Acute Assessment and plan: reportedly from a history of ETOH abuse He is also a diabetic. GI consulted. Child Vázquez class B MELD with Na is now 18 Qualifiers: Qualified Code(s): K74.60 - Unspecified cirrhosis of liver - Subjective Interval history: seen and examined patient claims that he is fatigued no new complaints other than that. 08/16/2016 has generalized pain asking for pain medications with narcotic pain meds ,his HR is with in normal limits without narcotic meds, he is tachycardic he has narcotic dependency 08/17/2016 still complained of generalized pain. on hydromorphone stable HR on above med. - Constitutional Vitals: Temp Pulse Resp BP Pulse Ox 97.8 F 97 17 129/71 93 L 08/17/16 16:00 08/17/16 16:00 08/17/16 16:00 08/17/16 16:00 08/17/16 16:00 General appearance: Present: disheveled, A&O X 2, mild distress, morbidly obese. Absent: answers questions appropriately - Head Head exam: Present: atraumatic, normocephalic - Eye Eye exam: Present: PERRL, conjuntiva pink, sclera anicteric Pupils: Present: PERRL - Neck Neck exam general surgery: Present: supple, trachea midline. Absent: lymphadenopathy - Respiratory Respiratory exam: Present: CTAB. Absent: accessory muscle use, rales, rhonchi, wheezes - Cardiovascular Cardiovascular exam: Present: RRR, +S1, +S2. Absent: diastolic murmur, gallop, rubs, systolic murmur - GI/Abdominal GI/Abdominal exam: Present: normal bowel sounds, soft, no peritoneal signs. Absent: distended, tenderness - Extremities Exam Extremities exam: Present: warm, radial pulses palpable and symetrical. Absent : calf tenderness, cyanotic, pedal edema - Neurological Exam Neurological exam: Present: CN II-XII intact, oriented X3, no focal deficits. Absent: pronater drift, facial droop, speech deficit - Skin Skin exam: Present: dry, intact Internal Medicine: Result - Labs CBC & Chem 7: 08/17/16 03:42 08/17/16 03:42 Labs: Short CBC 08/17/16 Range/Units 03:42 WBC 3.8 L (4.3-11.1) K/mcL Hgb 9.0 L (12.9-16.9) g/dL Hct 28.5 L (37.5-50.1) % Plt Count 86 L (140-400) K/mcL Neutrophils # 2.1 (1.6-8.9) K/mcL BMP 08/17/16 03:42 Sodium 130 L Potassium 4.8 H Chloride 100 Carbon Dioxide 24 BUN 17 Creatinine 1.28 H Glucose 365 H Calcium 8.6 - ABG Interpretation ABG results: PT/INR, D-dimer PT 17.2 Seconds (9.4-12.1) H 03/06/17 21:09 - VTE Documentation of Mechanical Device: Graduated compression elastic hosiery Consult Discharge Plan - Plan Referrals: [facility] [Primary Care Provider] -
[2016-08-17] MEDS: *HR* Rivaroxaban 10 MG TABLET PO SCH (16:50)
[2016-08-17] MEDS: rOPINIRole 1 MG TABLET PO SCH (20:18)
[2016-08-17] MEDS: RisperiDAL 3 MG TABLET PO SCH (20:18)
[2016-08-17] MEDS ORDERED: Insulin DETEMIR 100 UNIT/ML X5UNITS SQ SCH (21:00)
[2016-08-17] MEDS ORDERED: *HR* HYDROmorphone (PF) 1 MG/ML SYRINGE IVP ONE (21:42)
--- NOTE | 2016-08-17 21:46 | Event Note ---
Date of Encounter: 08/17/16 Time of Encounter: 09:35 Covering night provider was paged at [phone] regarding patient continuing abdominal pain. He was seen and examined shortly therafter. He reports 8/10 abdominal pain, related to his liver cirrhosis that has not worsened since arrival, but not improved. He states that the dilaudid that he received around 1999, did not help him that much and that he was told by his day attending to stay ahead of the pain. He reports mild nausea as well, but not too bad. Exam: sft, non-tender to palpation, non -distended abdomin, bs present Will order a one-time dose of 0.5 mg dilaudid
[2016-08-18] MEDS: MetroNIDAZOLE 500 MG/100 ML 500 MG/100 ML BAG IVPB SCH ×3 (00:26→17:03)
[2016-08-18] MEDS: *HR* HYDROmorphone (PF) 1 MG/ML SYRINGE IVP PRN ×6 (00:27→20:58)
[2016-08-18] MEDS: Ipratropium/Albuterol Neb 3 ML IH SCH ×4 (04:32→22:01)
[2016-08-18 05:05] LABS: Basophils % 0.9 %; Hemoglobin 9.5 g/dL (12.9-16.9); Immature Granulocytes % 1.4 % (0-4); Mean Platelet Volume 10.1 fL (9.4-12.4); Nucleated Red Blood Cells 0.5 /100 WBC (0)
[2016-08-18 05:07] LABS: Eosinophils # 0.2 K/mcL (0.0-0.6); Eosinophils % 3.6 %; Hematocrit 29.9 % (37.5-50.1); Immature Platelets 6.5 % (1.1-6.1); Lymphocytes % 28.2 %; Mean Corpuscular HGB Conc 31.8 g/dL (31.6-35.5); Mean Corpuscular Hemoglobin 25.3 pg (28.0-33.3); Mean Corpuscular Volume 79.7 fL (83.0-100.0); Monocytes # 0.4 K/mcL (0.0-1.3); Monocytes % 9.9 %; Neutrophils # 2.5 K/mcL (1.6-8.9); Red Blood Count 3.75 M/mcL (4.19-5.50); Red Cell Distribution Width 17.6 % (11.5-14.5)
[2016-08-18 05:09] LABS: Lymphocytes # 1.2 K/mcL (0.6-4.6); Platelet Count 92 K/mcL (140-400)
[2016-08-18 05:18] LABS: Alanine Aminotransferase 50 Units/L (0-55); Albumin/Globulin Ratio 0.6 (1.1-2.2); Alkaline Phosphatase 139 Units/L (38-126); Aspartate Amino Transferase 58 Units/L (5-34); BUN/Creatinine Ratio 14 (6-26); Bilirubin,Total 0.4 mg/dL (0.2-1.2); Blood Urea Nitrogen 16 mg/dL (8-26); Calcium 8.9 mg/dL (8.6-10.8); Carbon Dioxide 23 mEq/L (19-29); Chloride 101 mEq/L (98-109); Globulin 4.8 g/dL (2.4-3.5); Glucose 297 mg/dL (70-99); Osmolality,Calculated 284 (280-300); Potassium 4.4 mEq/L (3.5-4.5); Sodium 131 mEq/L (136-145); Total Protein 7.8 g/dL (6.0-8.3); eGFR For African Americans > 60 (> 60); eGFR For Non-African Americans > 60 (> 60)
[2016-08-18] MEDS: levETIRAcetam 250 MG TABLET PO SCH ×2 (08:34→21:16)
[2016-08-18] MEDS: Venlafaxine XR (24 HR) 75 MG CAP.ER.24H PO SCH (08:35)
[2016-08-18] MEDS: Insulin LISPRO 300 UNITS/3 ML VIAL SQ SCH ×7 (08:35→21:05)
[2016-08-18] MEDS: Insulin DETEMIR 100 UNIT/ML X5UNITS SQ SCH ×4 (08:36→21:18)
[2016-08-18] MEDS: Lactulose Oral Soln 20 GM/30 ML UDC PO SCH ×3 (08:37→21:17)
--- NOTE | 2016-08-18 13:47 | Internal Med Progress Note ---
<Nesha Solano - Last Filed: 08/18/16 13:45> Date of Encounter: 08/18/16 Time of Encounter: 09:00 - Assessment and plan (1) Metabolic encephalopathy Current Visit: Yes Status: Acute Assessment and plan: Resolving metabolic encephalopathy suspected to be secondary to a combination of hepatic impairment encephalopathy along with the colitis infection The patient will complete his course of IV Cipro and flagyl tomorrow (currently day 8) OK to discharge back to longterm after completes course of IV abx (2) Diabetes Current Visit: Yes Status: Chronic Assessment and plan: Patient on 160units BID of lantus at home. Patient has been sneaking extra sandwhiches, snacks, juices during hospitalization. Last week was briefly on an insulin drip secondary to glucose >500 after drinking jugs of juice, requiring 300nits total. Levemir increased to 120units BID for today with better control. Glucoses in the 200s today. 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 (4) Anemia Current Visit: Yes Status: Chronic Assessment and plan: Chronic, most likely secondary to cirrhosis. Qualifiers: Anemia type: other cause Other causes of anemia: other cause, not classified Qualified Code(s): D64.89 - Other specified anemias (5) Hyponatremia Current Visit: Yes Status: Chronic Assessment and plan: Chronic, has returned to patient's baseline (6) Cirrhosis of liver Current Visit: Yes Status: Chronic Assessment and plan: Patient has been seen by GI. Chronic known condition, thought to be secondary to alcohol use. No changes or further workup at this time. Qualifiers: Hepatic cirrhosis type: other cirrhosis Qualified Code(s): K74.69 - Other cirrhosis of liver (7) Urinary tract infection Current Visit: Yes Status: Acute Assessment and plan: On ciprofloxacin. Day #8. Qualifiers: Qualified Code(s): N39.0 - Urinary tract infection, site not specified (8) Chronic anticoagulation Current Visit: Yes Status: Acute Assessment and plan: Patient on Xarelto secondary to having a spontaneous DVT in the past. (9) Abdominal pain Current Visit: Yes Status: Acute Assessment and plan: Patient complains of abdominal pain. Was started on IV dilaudid 1mg PRN 08/16, per nursing staff the patient has been requesting it regularly, even after just getting doses. He is sleeping most of the day. Will need to wean patient back to his home dose of [place] BID. Discussed with patient and he states "I guess the pain will just get worse when I leave." He does not localize the pain, just states it is in his abdomen. Not reproducible with palpation. Plan: -Decrease PRN dose of dilaudid to 0.5mg Q4hr -Will plan to continue to wean to PO meds for discharge Qualifiers: Abdominal location: lower abdomen, unspecified Qualified Code(s): R10.30 - Lower abdominal pain, unspecified - Subjective Interval history: Patient seen and examined. Patient in the bed sleeping upon entering. Complains of vague pain, when asked where the pain is located he states that it is abdominal. Patient denies cp, sob, dysuria. - Constitutional Vitals: Temp Pulse Resp BP Pulse Ox 98.6 F 106 18 113/69 95 08/18/16 10:53 08/18/16 10:53 08/18/16 10:53 08/18/16 10:53 08/18/16 10:53 General appearance: Present: cooperative, disheveled, A&O X 2, morbidly obese, pleasant, no acute distress, answers questions appropriately - Head Head exam: Present: atraumatic, normocephalic - Eye Eye exam: Present: EOMI, PERRL - ENT ENT exam: Present: mucous membranes moist - Neck Neck exam general surgery: Present: supple, trachea midline. Absent: lymphadenopathy - Respiratory Respiratory exam: Present: CTAB. Absent: accessory muscle use, rales, rhonchi, wheezes - Cardiovascular Cardiovascular exam: Present: RRR, +S1, +S2. Absent: diastolic murmur, gallop, rubs, systolic murmur - GI/Abdominal GI/Abdominal exam: Present: normal bowel sounds, soft, no peritoneal signs. Absent: distended, tenderness - Extremities Exam Extremities exam: Present: normal capillary refill, normal inspection, warm, radial pulses palpable and symetrical. Absent: calf tenderness, cyanotic, pedal edema, tenderness - Neurological Exam Neurological exam: Present: alert, oriented X3, no focal deficits. Absent: facial droop, speech deficit - Psychiatric Psychiatric exam: Present: normal affect, normal mood - Skin Skin exam: Present: dry, intact. Absent: diaphoretic, erythema, rash Internal Medicine: Result - Labs CBC & Chem 7: 08/18/16 04:45 08/18/16 04:45 Labs: Short CBC 08/18/16 Range/Units 04:45 WBC 4.4 (4.3-11.1) K/mcL Hgb 9.5 L (12.9-16.9) g/dL Hct 29.9 L (37.5-50.1) % Plt Count 92 L (140-400) K/mcL Neutrophils # 2.5 (1.6-8.9) K/mcL BMP 08/18/16 04:45 Sodium 131 L Potassium 4.4 Chloride 101 Carbon Dioxide 23 BUN 16 Creatinine 1.13 Glucose 297 H Calcium 8.9 Liver Function 08/18/16 Range/Units 04:45 Total Bilirubin 0.4 (0.2-1.2) mg/dL AST 58 H (5-34) Units/L ALT 50 (0-55) Units/L Alkaline Phosphatase 139 H (38-126) Units/L Albumin 3.0 L (3.5-5.0) g/dL - ABG Interpretation ABG results: PT/INR, D-dimer PT 17.2 Seconds (9.4-12.1) H 08/10/16 21:09 - VTE Documentation of Mechanical Device: Graduated compression elastic hosiery Consult Discharge Plan - Plan [facility] Care Provider[facility] - <Kevin Summers - Last Filed: 08/18/16 16:33> - Assessment and plan (1) Metabolic encephalopathy Current Visit: Yes Status: Acute (2) Cirrhosis of liver Current Visit: No Status: Chronic Qualifiers: Hepatic cirrhosis type: other cirrhosis Qualified Code(s): K74.69 - Other cirrhosis of liver (3) Portal hypertension Current Visit: Yes Status: Chronic Assessment and plan: Due to cirrhosis (4) Diabetes Current Visit: Yes Status: Acute Qualifiers: Diabetes mellitus type: type 2 Diabetes mellitus complication status: with hyperglycemia Diabetes mellitus heel builder machine insulin use: with heel builder machine use Qualified Code(s): E11.65 - Type 2 diabetes mellitus with hyperglycemia; 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 (6) Diastolic CHF, chronic Current Visit: Yes Status: Acute (7) CHF (congestive heart failure) Current Visit: No Status: Chronic Assessment and plan: Supportive care. Qualifiers: Congestive heart failure type: diastolic Congestive heart failure chronicity: chronic Qualified Code(s): I50.32 - Chronic diastolic (congestive ) heart failure (8) Hyponatremia Current Visit: Yes Status: Chronic (9) Pancytopenia Current Visit: Yes Status: Chronic Assessment and plan: Related to chronic liver disease and chronic illness. - Constitutional Vitals: Temp Pulse Resp BP Pulse Ox 97.9 F 100 17 147/66 94 L 08/18/16 15:44 08/18/16 15:44 08/18/16 15:44 08/18/16 15:44 08/18/16 15:44 Internal Medicine: Result - Labs CBC & Chem 7: 08/18/16 04:45 08/18/16 04:45 Labs: Short CBC 08/18/16 Range/Units 04:45 WBC 4.4 (4.3-11.1) K/mcL Hgb 9.5 L (12.9-16.9) g/dL Hct 29.9 L (37.5-50.1) % Plt Count 92 L (140-400) K/mcL Neutrophils # 2.5 (1.6-8.9) K/mcL BMP 08/18/16 04:45 Sodium 131 L Potassium 4.4 Chloride 101 Carbon Dioxide 23 BUN 16 Creatinine 1.13 Glucose 297 H Calcium 8.9 Liver Function 08/18/16 Range/Units 04:45 Total Bilirubin 0.4 (0.2-1.2) mg/dL AST 58 H (5-34) Units/L ALT 50 (0-55) Units/L Alkaline Phosphatase 139 H (38-126) Units/L Albumin 3.0 L (3.5-5.0) g/dL - ABG Interpretation ABG results: PT/INR, D-dimer PT 17.2 Seconds (9.4-12.1) H 08/10/16 21:09 - Attending Attestation I examined this patient and my medical decision-making was reviewed with the Resident Physician on 08/18/16. I agree with the documented findings, disposition and treatment plan as described except to the extent set forth below. Mr. Jolley is currently admitted for acute encephalopathy related to acute infection (colitis) and hepatic disease. He remains moderate to high risk due to issues with his blood sugar and need for IV abx. Mr. Jolley continues to complain of pain. He is taking IV Dilaudid frequently. CT of abdomen negative on admission. No fever or chills. Wants to go to [facility] at [place]. Exam Alert. Sleeping but easily arousable. Heart reg Lungs clear Abd soft. Labs reviewed - Na 131, Plt 92, BS 301 I/P 1. Acute metabolic encephalopathy - seems to be improving. He is more alert and interactive than reported on admit. Continue current plan of management. 2. Chronic cirrhosis 3. Chronic thrombocytopenia - most likely from portal hypertension 4. Chronic anemia 5. Abd pain - pain control 6. Presumed colitis - on Cipro/Flagyl 7. Insulin req DM with significant [facility] Complete 10 days abx (IV and PO).
[2016-08-18] MEDS: *HR* Rivaroxaban 10 MG TABLET PO SCH (17:02)
[2016-08-18] MEDS: rOPINIRole 1 MG TABLET PO SCH (21:15)
[2016-08-18] MEDS: RisperiDAL 3 MG TABLET PO SCH (21:16)
[2016-08-19] MEDS: *HR* HYDROmorphone (PF) 1 MG/ML SYRINGE IVP PRN ×2 (01:01→04:53)
[2016-08-19] MEDS: MetroNIDAZOLE 500 MG/100 ML 500 MG/100 ML BAG IVPB SCH ×2 (01:02→08:22)
[2016-08-19] MEDS: Ipratropium/Albuterol Neb 3 ML IH SCH ×2 (04:10→10:28)
[2016-08-19 05:15] LABS: Basophils % 0.7 %
[2016-08-19 05:18] LABS: Eosinophils # 0.2 K/mcL (0.0-0.6); Eosinophils % 4.5 %; Hematocrit 30.7 % (37.5-50.1); Hemoglobin 9.6 g/dL (12.9-16.9); Immature Granulocytes % 1.1 % (0-4); Lymphocytes # 1.4 K/mcL (0.6-4.6); Lymphocytes % 30.9 %; Mean Corpuscular HGB Conc 31.3 g/dL (31.6-35.5); Mean Corpuscular Hemoglobin 25.1 pg (28.0-33.3); Mean Corpuscular Volume 80.2 fL (83.0-100.0); Mean Platelet Volume 11.2 fL (9.4-12.4); Monocytes # 0.5 K/mcL (0.0-1.3); Monocytes % 10.8 %; Neutrophils # 2.3 K/mcL (1.6-8.9); Red Blood Count 3.83 M/mcL (4.19-5.50); Red Cell Distribution Width 18.9 % (11.5-14.5)
[2016-08-19 05:29] LABS: Platelet Count 79 K/mcL (140-400)
[2016-08-19 06:05] LABS: Anisocytosis 1+ (Not Present); Microcytosis Present (Not Present); Platelet Estimate Decreased (Normal); Polychromasia 1+ (Not Present); Reactive Lymphocytes Present (Not Present)
[2016-08-19 06:42] LABS: Alanine Aminotransferase 51 Units/L (0-55); Albumin 2.9 g/dL (3.5-5.0); Albumin/Globulin Ratio 0.6 (1.1-2.2); Alkaline Phosphatase 132 Units/L (38-126); Aspartate Amino Transferase 58 Units/L (5-34); BUN/Creatinine Ratio 20 (6-26); Bilirubin,Total 0.5 mg/dL (0.2-1.2); Blood Urea Nitrogen 17 mg/dL (8-26); Calcium 8.8 mg/dL (8.6-10.8); Carbon Dioxide 23 mEq/L (19-29); Chloride 101 mEq/L (98-109); Globulin 4.6 g/dL (2.4-3.5); Glucose 217 mg/dL (70-99); Osmolality,Calculated 278 (280-300); Potassium 4.1 mEq/L (3.5-4.5); Sodium 130 mEq/L (136-145); Total Protein 7.5 g/dL (6.0-8.3); eGFR For African Americans > 60 (> 60); eGFR For Non-African Americans > 60 (> 60)
[2016-08-19] MEDS: Venlafaxine XR (24 HR) 75 MG CAP.ER.24H PO SCH (08:22)
[2016-08-19] MEDS: levETIRAcetam 250 MG TABLET PO SCH (08:23)
[2016-08-19] MEDS: Insulin LISPRO 300 UNITS/3 ML VIAL SQ SCH ×4 (08:24→11:49)
[2016-08-19] MEDS: Lactulose Oral Soln 20 GM/30 ML UDC PO SCH ×2 (08:26→14:06)
[2016-08-19] MEDS: Insulin DETEMIR 100 UNIT/ML X5UNITS SQ SCH ×2 (08:41)
[2016-08-19] MEDS: *HR* OxyCODONE/APAP 7.5/325 TABLET PO PRN ×2 (09:39→14:02)
--- NOTE | 2016-08-19 09:41 | Internal Med Progress Note ---
Date of Encounter: 08/19/16 Time of Encounter: 09:39 - Assessment and plan (1) Metabolic encephalopathy Current Visit: Yes Status: Acute Assessment and plan: Resolving metabolic encephalopathy suspected to be secondary to a combination of hepatic impairment encephalopathy along with the colitis infection The patient will complete his course of IV Cipro and flagyl tomorrow (currently day 8) OK to discharge back to shelter after completes course of IV abx (2) Diabetes Current Visit: Yes Status: Chronic Assessment and plan: Patient on 160units BID of lantus at home. Patient has been sneaking extra sandwhiches, snacks, juices during hospitalization. Last week was briefly on an insulin drip secondary to glucose >500 after drinking jugs of juice, requiring 300nits total. Levemir increased to 120units BID for today with better control. Glucoses in the 200s today. Plan: -Increase levemir to 130 units BID -Continue SS insulin -Continue diabetic diet, avoid juices and excessive snacks Qualifiers: Diabetes mellitus type: type 2 Diabetes mellitus complication status: without complication Diabetes mellitus fdc insulin use: with fdc use Qualified Code(s): E11.9 - Type 2 diabetes mellitus without complications ; Z79.4 - alf (current) use of insulin (3) Acute kidney injury Current Visit: Yes Status: Resolved Assessment and plan: Resolved, Cr back to baseline. (4) Anemia Current Visit: Yes Status: Chronic Assessment and plan: Chronic, most likely secondary to cirrhosis. Qualifiers: Anemia type: other cause Other causes of anemia: other cause, not classified Qualified Code(s): D64.89 - Other specified anemias (5) Hyponatremia Current Visit: Yes Status: Chronic Assessment and plan: Chronic, has returned to patient's baseline (6) Cirrhosis of liver Current Visit: Yes Status: Chronic Assessment and plan: Patient has been seen by GI. Chronic known condition, thought to be secondary to alcohol use. No changes or further workup at this time. Qualifiers: Hepatic cirrhosis type: other cirrhosis Qualified Code(s): K74.69 - Other cirrhosis of liver (7) Urinary tract infection Current Visit: Yes Status: Acute Assessment and plan: On ciprofloxacin. Day #8. Qualifiers: Qualified Code(s): N39.0 - Urinary tract infection, site not specified (8) Chronic anticoagulation Current Visit: Yes Status: Acute Assessment and plan: Patient on Xarelto secondary to having a spontaneous DVT in the past. (9) Abdominal pain Current Visit: Yes Status: Acute Assessment and plan: Patient denies any abdominal pain today Was started on IV dilaudid 1mg PRN 08/16, per nursing staff the patient has been requesting it regularly, even after just getting doses. He is sleeping most of the day. Will need to wean patient back to his home dose of [place] BID. Discussed with patient and he states "I guess the pain will just get worse when I leave." He does not localize the pain, just states it is in his abdomen. Not reproducible with palpation. Plan: -Discontinue dilaudid -Percocet 7.5mg PO Q4hr PRN Qualifiers: Abdominal location: lower abdomen, unspecified Qualified Code(s): R10.30 - Lower abdominal pain, unspecified - Subjective Interval history: Patient seen and examined. Patient in the bed sleeping upon entering. Patient denies any abdominal or back pain today. Patient denies cp, sob, dysuria. Yesterday afternoon [facility] - Constitutional Vitals: Temp Pulse Resp BP Pulse Ox 97.9 F 102 17 120/80 93 L 08/19/16 08:01 08/19/16 08:01 08/19/16 08:01 08/19/16 08:01 08/19/16 08:01 General appearance: Present: cooperative, disheveled, A&O X 2, morbidly obese, pleasant, no acute distress, answers questions appropriately - Head Head exam: Present: atraumatic, normocephalic - Eye Eye exam: Present: EOMI, PERRL, conjuntiva pink, sclera anicteric - Neck Neck exam general surgery: Present: supple, trachea midline. Absent: lymphadenopathy - Respiratory Respiratory exam: Present: CTAB. Absent: accessory muscle use, rales, rhonchi, wheezes - Cardiovascular Cardiovascular exam: Present: RRR, +S1, +S2. Absent: diastolic murmur, gallop, rubs, systolic murmur - GI/Abdominal GI/Abdominal exam: Present: normal bowel sounds, soft, no peritoneal signs. Absent: distended, tenderness - Extremities Exam Extremities exam: Present: warm, radial pulses palpable and symetrical. Absent : calf tenderness, cyanotic, pedal edema - Neurological Exam Neurological exam: Present: oriented X3, no focal deficits. Absent: motor sensory deficit, facial droop, speech deficit - Psychiatric Psychiatric exam: Present: normal affect, normal mood Additional comments: drowsy, but easily arousable - Skin Skin exam: Present: dry, intact, normal color, warm. Absent: diaphoretic, erythema, rash Internal Medicine: Result - Labs CBC & Chem 7: 08/19/16 04:50 08/19/16 06:26 Labs: Short CBC 08/19/16 Range/Units 04:50 WBC 4.4 (4.3-11.1) K/mcL Hgb 9.6 L (12.9-16.9) g/dL Hct 30.7 L (37.5-50.1) % Plt Count 79 L (140-400) K/mcL Neutrophils # 2.3 (1.6-8.9) K/mcL BMP 08/19/16 06:26 Sodium 130 L Potassium 4.1 Chloride 101 Carbon Dioxide 23 BUN 17 Creatinine 0.87 Glucose 217 H Calcium 8.8 Liver Function 08/19/16 Range/Units 06:26 Total Bilirubin 0.5 (0.2-1.2) mg/dL AST 58 H (5-34) Units/L ALT 51 (0-55) Units/L Alkaline Phosphatase 132 H (38-126) Units/L Albumin 2.9 L (3.5-5.0) g/dL - ABG Interpretation ABG results: PT/INR, D-dimer PT 17.2 Seconds (9.4-12.1) H 08/10/16 21:09 - VTE Documentation of Mechanical Device: Graduated compression elastic hosiery Consult Discharge Plan - Plan [facility]errals: [facility] [Primary Care Provider] -
--- NOTE | 2016-08-19 09:48 | Discharge Summary ---
<Nesha Solano - Last Filed: 08/19/16 09:46> Date of Encounter: 08/19/16 Time of Encounter: 09:46 - Discharge Diagnosis (1) Metabolic encephalopathy Priority: Primary Status: Resolved (2) Diabetes Priority: Primary Status: Chronic Qualifiers: Diabetes mellitus type: type 2 Diabetes mellitus complication status: without complication Diabetes mellitus terminal worker insulin use: with terminal worker use Qualified Code(s): E11.9 - Type 2 diabetes mellitus without complications ; Z79.4 - group home (current) use of insulin (3) Acute kidney injury Priority: Primary Status: Resolved (4) Anemia Priority: Primary Status: Chronic Qualifiers: Anemia type: other cause Other causes of anemia: other cause, not classified Qualified Code(s): D64.89 - Other specified anemias (5) Hyponatremia Priority: Secondary Status: Chronic (6) Cirrhosis of liver Priority: Secondary Status: Chronic Qualifiers: Hepatic cirrhosis type: other cirrhosis Qualified Code(s): K74.69 - Other cirrhosis of liver (7) Urinary tract infection Priority: Primary Status: Acute Qualifiers: Qualified Code(s): N39.0 - Urinary tract infection, site not specified (8) Chronic anticoagulation Priority: Secondary Status: Chronic (9) Abdominal pain Priority: Primary Status: Chronic Qualifiers: Abdominal location: lower abdomen, unspecified Qualified Code(s): R10.30 - Lower abdominal pain, unspecified - Discharge Medications Prescriptions: HYDROcodone/Acet 5/325 mg [[place] 5-325 mg] 1 tab PO BID PRN #20 tablet PRN Reason: Pain Home Medications: Cholecalciferol (Vitamin D3) [Vitamin D] 1,000 unit PO DAILY 05/13/15 [History] Insulin ASPART [NovoLOG] 48 - 100 unit SQ TIDWM 05/13/15 [History] Ropinirole HCl [Requip] 2 mg PO HS 05/13/15 [History] Venlafaxine HCl [Effexor Xr] 75 mg PO DAILY 05/13/15 [History] Aspirin Enteric Coated [Aspirin EC] 81 mg PO DAILY 11/13/15 [History] Atorvastatin [Lipitor] 40 mg PO HS 11/13/15 [History] Insulin Glargine,Hum.rec.anlog [Lantus Solostar] 160 unit SQ BID 11/13/15 [ History] Lactulose 30 gm PO TID 11/13/15 [History] Omeprazole [PriLOSEC] 20 mg PO DAILY 11/13/15 [History] Tamsulosin [Flomax] 0.4 mg PO DAILY 11/13/15 [History] Furosemide [Lasix] 40 mg PO DAILY 05/16/16 [History] Lisinopril [Zestril] 2.5 mg PO HS 05/16/16 [History] RisperiDONE [Risperdal] 3 mg PO HS 05/16/16 [History] Rivaroxaban [Xarelto] 10 mg PO DAILY 05/16/16 [History] Sertraline [Zoloft] 50 mg PO DAILY 05/16/16 [History] Spironolactone [Aldactone] 50 mg PO DAILY 05/16/16 [History] Atenolol [Tenormin] 50 mg PO DAILY 05/29/16 [History] LevETIRAcetam [Keppra] 750 mg PO BID 06/07/16 [History] Ipratropium/Albuterol Neb [Duoneb] 3 ml IH Q6HR 08/10/16 [History] HYDROcodone/Acet 5/325 mg [[place] 5-325 mg] 1 tab PO BID PRN #20 tablet 08/19/16 [Rx] Rifaximin [Xifaxan] 200 mg PO BID tablet 08/19/16 [Rx] Allergies/Adverse Reactions: Allergies Iodinated Contrast Media - Oral and Allergy (Verified 06/07/16 06:25) Difficulty Breathing ketorolac [From Toradol] Allergy (Verified 06/07/16 06:25) Nausea Penicillins Allergy (Verified 06/07/16 06:25) Rash butorphanol [From Stadol] Adverse Reaction (Verified 06/08/16 17:28) Nausea celecoxib Adverse Reaction (Verified 06/07/16 06:25) unknown [facility] gabapentin Adverse Reaction (Verified 06/07/16 09:34) unknown [facility] list. mirtazapine Adverse Reaction (Verified 06/07/16 06:25) unknown listed on [facility] tramadol Adverse Reaction (Verified 06/07/16 06:25) unknown listed on [facility] vancomycin Adverse Reaction (Verified 06/07/16 06:25) unknown listed on [facility] Date of admission: 08/10/16 23:44 Primary care physician: [facility] Consults: 08/11/16 00:18 Consult to [facility] [CONS] Routine Comment: 08/11/16 09:01 Consult to Gastroenterology [CONS] Routine Consulting Provider: [facility] Reason for Consult: GI bleed? UC? Call Completed: Yes 08/11/16 13:35 Consult to Nephrology [CONS] Routine Consulting Provider: [facility]/TI[facility]RA/[facility] Reason for Consult: MJ Call Completed: Yes 08/12/16 12:17 Consult to Invasive Line Access Team [CONS] Routine Reason for Consult: IV access Line Type: EPIV 08/14/16 08:38 OT [Consult to Occupational Therapy] [CONS] Routine Comment: Evaluate, develop and implement POC PT [Consult to Physical Therapy] [CONS] Routine Comment: Evaluate, develop and implement POC Discharging clinician: Kevin Summers Anticipated date of discharge: 08/19/16 - Patient Status Disposition: Home, Self-Care Condition: Fair - Discharge Instructions Instructions: Heart Failure (DC), Diabetes Mellitus Type 2 in Adults (DC), Chronic Obstructive Pulmonary Disease (DC) Follow Up With: [facility] [Primary Care Provider] - 08/27/16 10:15 am Additional Instructions: Please follow up with your primary care provider within 5-7 days. - Diet and Activity Activity: resume usual activities as tolerated Hospital course: Mr. Ramirez is a 66 year old male - Time Spent with Patient Total time spent providing and/or coordinating discharge services: - Constitutional Vitals: Temp Pulse Resp BP Pulse Ox 97.9 F 102 17 120/80 93 L 08/19/16 08:01 08/19/16 08:01 08/19/16 08:01 08/19/16 08:01 08/19/16 08:01 General appearance: Present: cooperative, disheveled, A&O X 2, morbidly obese, pleasant, no acute distress, answers questions appropriately - Head Head exam: Present: atraumatic, normocephalic - Eye Eye exam: Present: EOMI, PERRL, conjuntiva pink, sclera anicteric - Neck Neck exam general surgery: Present: supple, trachea midline. Absent: lymphadenopathy - Respiratory Respiratory exam: Present: CTAB. Absent: accessory muscle use, rales, rhonchi, wheezes - Cardiovascular Cardiovascular exam: Present: RRR, +S1, +S2. Absent: diastolic murmur, gallop, rubs, systolic murmur - GI/Abdominal GI/Abdominal exam: Present: normal bowel sounds, soft, no peritoneal signs. Absent: distended, tenderness - Extremities Exam Extremities exam: Present: warm, radial pulses palpable and symetrical. Absent : calf tenderness, cyanotic, pedal edema - Neurological Exam Neurological exam: Present: oriented X3, no focal deficits. Absent: facial droop, speech deficit - Psychiatric Psychiatric exam: Present: normal affect, normal mood - Skin Skin exam: Present: dry, intact, warm. Absent: diaphoretic - VTE Documentation of Mechanical Device: Graduated compression elastic hosiery <Kevin Summers - Last Filed: 08/19/16 18:59> - Discharge Diagnosis (1) Metabolic encephalopathy Status: Resolved (2) Cirrhosis of liver Status: Chronic Qualifiers: Hepatic cirrhosis type: other cirrhosis Qualified Code(s): K74.69 - Other cirrhosis of liver (3) Portal hypertension Status: Chronic (4) Diabetes Status: Acute Qualifiers: Diabetes mellitus type: type 2 Diabetes mellitus complication status: with hyperglycemia Diabetes mellitus care home insulin use: with terminal worker use Qualified Code(s): E11.65 - Type 2 diabetes mellitus with hyperglycemia; Z79.4 - group home (current) use of insulin (5) Abdominal pain, chronic, left lower quadrant Status: Chronic (6) Diastolic CHF, chronic Status: Acute (7) CHF (congestive heart failure) Status: Chronic Qualifiers: Congestive heart failure type: diastolic Congestive heart failure chronicity: chronic Qualified Code(s): I50.32 - Chronic diastolic (congestive ) heart failure (8) Hyponatremia Status: Chronic (9) Pancytopenia Status: Chronic Date of admission: 08/10/16 23:44 [facility] care physician: [facility] Consults: 08/11/16 00:18 Consult to [facility] [CONS] Routine Comment: 08/11/16 09:01 Consult to Gastroenterology [CONS] Routine Consulting Provider: [facility] [place] Reason for Consult: GI bleed? UC? Call Completed: Yes 08/11/16 13:35 Consult to Nephrology [CONS] Routine Consulting Provider: [facility]/TIARRA/[facility] Reason for Consult: MJ Call Completed: Yes 08/12/16 12:17 Consult to Invasive Line Access Team [CONS] Routine Reason for Consult: IV access Line Type: EPIV 08/14/16 08:38 OT [Consult to Occupational Therapy] [CONS] Routine Comment: Evaluate, develop and implement POC PT [Consult to Physical Therapy] [CONS] Routine Comment: Evaluate, develop and implement POC Hospital course: Mr. Ramirez is a 66 year old male - Time Spent with Patient Total time spent providing and/or coordinating discharge services: 38min - Constitutional Vitals: Temp Pulse Resp BP Pulse Ox 97.8 F 99 17 145/81 90 L 08/19/16 11:41 08/19/16 11:41 08/19/16 11:41 08/19/16 11:41 08/19/16 11:41 - Attending Attestation I examined this patient and my medical decision-making was reviewed with the Resident Physician on 08/19/16. I agree with the documented findings, disposition and treatment plan as described except to the extent set forth below. Mr. Ramirez is doing OK. He wants to go home today. Medically he is stable at this time. Afebrile. BP good. Exam Alert. Comfortable in bed. Heart reg Lungs clear Plan D/C today. Follow up with PCP.
--- NOTE | 2016-08-19 11:21 | Physician Discharge Referral ---
Home Health/Hosp Referral Info Transfer to: Home Health Provider in Charge Post Discharge: PCP - Diagnosis (1) Acute renal failure Status: Acute (2) Cirrhosis Status: Acute (3) Diabetes Status: Acute (4) Pancytopenia Status: Acute (5) Toxic metabolic encephalopathy Status: Acute - Respiratory Orders Smoking Cessation: Smoking cessation has been advised. For more information, call the [place] Tobacco Quit Line at 4-831-EQJT-NOW. - Diet/Nutrition Diet/Nutrition Orders: No Added Salt (PEREZ) Diet/Nutrition: List: diabetic diet - Activity Activity Orders: Ambulate - Services Needed Following services are medically necessary services: Home Health Aide, Physical Therapy, Occupational Therapy - Transfer Medications Home Medications: Cholecalciferol (Vitamin D3) [Vitamin D] 1,000 unit PO DAILY 05/13/15 [History] Insulin ASPART [NovoLOG] 48 - 100 unit SQ TIDWM 05/13/15 [History] Ropinirole HCl [Requip] 2 mg PO HS 05/13/15 [History] Venlafaxine HCl [Effexor Xr] 75 mg PO DAILY 05/13/15 [History] Aspirin Enteric Coated [Aspirin EC] 81 mg PO DAILY 11/13/15 [History] Atorvastatin [Lipitor] 40 mg PO HS 11/13/15 [History] Insulin Glargine,Hum.rec.anlog [Lantus Solostar] 160 unit SQ BID 11/13/15 [ History] Lactulose 30 gm PO TID 11/13/15 [History] Omeprazole [PriLOSEC] 20 mg PO DAILY 11/13/15 [History] Tamsulosin [Flomax] 0.4 mg PO DAILY 11/13/15 [History] Furosemide [Lasix] 40 mg PO DAILY 05/16/16 [History] Lisinopril [Zestril] 2.5 mg PO HS 05/16/16 [History] RisperiDONE [Risperdal] 3 mg PO HS 05/16/16 [History] Rivaroxaban [Xarelto] 10 mg PO DAILY 05/16/16 [History] Sertraline [Zoloft] 50 mg PO DAILY 05/16/16 [History] Spironolactone [Aldactone] 50 mg PO DAILY 05/16/16 [History] Atenolol [Tenormin] 50 mg PO DAILY 05/29/16 [History] LevETIRAcetam [Keppra] 750 mg PO BID 06/07/16 [History] HYDROcodone/Acet 5/325 mg [[place]eral 5-325 mg] 1 tab PO BID PRN 08/10/16 [History] Ipratropium/Albuterol Neb [Duoneb] 3 ml IH Q6HR 08/10/16 [History] Allergies/Adverse Reactions: Allergies Iodinated Contrast Media - Oral and Allergy (Verified 06/07/16 06:25) Difficulty Breathing ketorolac [From Toradol] Allergy (Verified 06/07/16 06:25) Nausea Penicillins Allergy (Verified 06/07/16 06:25) Rash butorphanol [From Stadol] Adverse Reaction (Verified 06/08/16 17:28) Nausea celecoxib Adverse Reaction (Verified 06/07/16 06:25) [facility] gabapentin Adverse Reaction (Verified 06/07/16 09:34) unknown [facility] list. mirtazapine Adverse Reaction (Verified 06/07/16 06:25) [facility] tramadol Adverse Reaction (Verified 06/07/16 06:25) [facility] vancomycin Adverse Reaction (Verified 06/07/16 06:25) [facility] Certification: Further, I certify that my clinical findings support that this patient is homebound (i.e. absences from home require considerable and taxing effort and are for medical reasons or zoroastrian services or infrequently or short duration when for other reasons) because: Homebound Reason: Patient requires assistance of a person or device to safely leave home, Leaving home requires considerable and taxing effort due to condition Attestation: My signature below is to certify that this patient is under my care and that I, or nurse practitioner, or a physician's physician's assistant working with me, has a face-to -face encounter with this patient.
[2016-08-19 11:46] VITALS: BP 145/81
== END 2016-08-19 15:33 | disposition home or self-care (01) | DRG 441 ==
LOC: 2ANU 20:02 → EMEROO 20:02 → SUATTDRO 23:44 → 2ANU 08-11 00:53
PROVIDERS: ADMIT Internal Medicine; ATTEND Internal Medicine

== ENCOUNTER 2016-08-23 16:37 | Inpatient (IN) ==
[2016-08-23 17:05] LABS: Bilirubin,Urine Negative (Negative); Blood,Urine Negative (Negative); Clarity,Urine Clear (Clear); Color,Urine Yellow (Yellow); Glucose,Urine (UA) >=1000 mg/dL (Normal); Ketones,Urine Negative (Negative); Leukocyte Esterase,Urine Negative (Negative); Nitrite,Urine Negative (Negative); PH,Urine 6.5 pH Units (5.0-8.0); Protein,Urine Negative (Neg-Trace); Specific Gravity,Urine > 1.030 (1.010-1.025); Urobilinogen,Urine Normal (Normal)
--- NOTE | 2016-08-23 17:07 | Emergency Department Note ---
Disposition Clinical Impression: Hyperglycemia, Suicidal ideation Disposition: Admitted As Inpatient Condition: Good Referrals: NO,PCP [Primary Care Provider] - Forms: ED Satisfaction Letter Time of Disposition: 23:02 Psych HPI - General Chief Complaint: ED Psychiatric Symptoms Stated Complaint: PTSD Time Seen by Provider: 08/23/16 16:40 Source: patient, EMS Mode of arrival: ambulatory Limitations: no limitations Nursing Notes Reviewed: Yes Vital Signs Reviewed: Yes - History of Present Illness HPI Narrative: Patient is a 66-year-old male with past medical history GERD, CHF, CAD, hyperlipidemia, hypertension, cirrhosis. He also has a past medical history of anxiety, depression, PTSD. He takes Zoloft daily. He presents today due to transient suicidal thoughts, feeling down and depressed. Patient states that he was here admitted for right knee septic arthritis and cirrhosis recently. Has not really had any issues with these since drained is discharged. However, he states that he does not want to be alone, has had suicidal thoughts over the past 2-3 days that come and go, no specific plans. Denies any homicidal ideation, visual or auditory hallucinations. Denies any chest pain, shortness of breath, nausea, vomiting, fevers, abdominal pain. - Related Data Home Medications Medication Instructions Recorded Confirmed Cholecalciferol (Vitamin D3) 1,000 unit PO DAILY 05/13/15 08/10/16 [Vitamin D] Insulin ASPART [NovoLOG] 48 - 100 unit SQ TIDWM 05/13/15 08/10/16 Ropinirole HCl [Requip] 2 mg PO HS 05/13/15 08/10/16 Venlafaxine HCl [Effexor Xr] 75 mg PO DAILY 05/13/15 08/10/16 Aspirin Enteric Coated [Aspirin EC] 81 mg PO DAILY 11/13/15 08/10/16 Atorvastatin [Lipitor] 40 mg PO HS 11/13/15 08/10/16 Insulin Glargine,Hum.rec.anlog 160 unit SQ BID 11/13/15 08/10/16 [Lantus Solostar] Lactulose 30 gm PO TID 11/13/15 08/10/16 Omeprazole [PriLOSEC] 20 mg PO DAILY 11/13/15 08/10/16 Tamsulosin [Flomax] 0.4 mg PO DAILY 11/13/15 08/10/16 Furosemide [Lasix] 40 mg PO DAILY 05/16/16 08/10/16 Lisinopril [Zestril] 2.5 mg PO HS 05/16/16 08/10/16 RisperiDONE [Risperdal] 3 mg PO HS 05/16/16 08/10/16 Rivaroxaban [Xarelto] 10 mg PO DAILY 05/16/16 08/10/16 Sertraline [Zoloft] 50 mg PO DAILY 05/16/16 08/10/16 Spironolactone [Aldactone] 50 mg PO DAILY 05/16/16 08/10/16 Atenolol [Tenormin] 50 mg PO DAILY 05/29/16 08/10/16 LevETIRAcetam [Keppra] 750 mg PO BID 06/07/16 08/10/16 Ipratropium/Albuterol Neb [Duoneb] 3 ml IH Q6HR 08/10/16 08/10/16 Previous Rx's Medication Instructions Recorded HYDROcodone/Acet 5/325 mg [[place] 1 tab PO BID PRN #20 tablet 08/19/16 5-325 mg] Rifaximin [Xifaxan] 200 mg PO BID tablet 08/19/16 Allergies Allergy/AdvReac Type Severity Reaction Status Date / Time Iodinated Contrast Media - Allergy Difficulty Verified 08/23/16 16:37 Oral and Breathing ketorolac [From Toradol] Allergy Nausea Verified 08/23/16 16:37 Penicillins Allergy Rash Verified 08/23/16 16:37 butorphanol [From Stadol] AdvReac Nausea Verified 08/23/16 16:37 celecoxib AdvReac unknown Verified 08/23/16 16:37 gabapentin AdvReac unknown Verified 08/23/16 16:37 mirtazapine AdvReac unknown Verified 08/23/16 16:37 tramadol AdvReac unknown Verified 08/23/16 16:37 vancomycin AdvReac unknown Verified 08/23/16 16:37 Constitutional: Denies: fever ENT ED: Denies: ear pain Cardiovascular: Denies: chest pain, palpitations Respiratory: Denies: cough, dyspnea, wheezes Gastrointestinal: Denies: abdominal pain, nausea Genitourinary: Denies: urgency, dysuria Musculoskeletal: Denies: back pain, neck pain Integumentary: Denies: rash Neurological: Denies: headache, weakness, numbness, paresthesias Psychiatric: Reports: anxiety, depression, suicidal thoughts. Denies: homicidal thoughts, auditory hallucinations, visual hallucinations Past Medical History - Past Medical History Attestation: Yes The following information was validated with the patient. Medical history: Reports: arthritis, cirrhosis, CHF, COPD, coronary artery disease, diabetes, GERD, hyperlipidemia, hypertension, liver disease, osteoporosis, TIA Surgical history: Reports: appendectomy, cholecystectomy, herniorrhaphy, knee replacement, other Psychiatric history: Reports: anxiety, depression, PTSD, previous psychiatric hospitalization - Social History Smoking Status: Never smoker Smokeless Tobacco Status: No Alcohol use: Reports: none Drug use: Reports: none Physical Exam - General Limitations: no limitations General appearance: alert, anxious - Head Head exam: atraumatic, normocephalic, normal inspection - Eye Eye exam: Present: normal appearance, PERRL, EOMI - ENT ENT exam: normal exam, normal oropharynx, mucous membranes moist - Neck Neck exam: Present: normal inspection, full ROM, trachea midline - Chest Chest inspection: Present: normal inspection, symmetric chest wall rise - Respiratory Respiratory exam: Present: normal lung sounds bilaterally - Cardiovascular Cardiovascular exam: Present: regular rate, normal rhythm, normal heart sounds - Abdominal Exam Abdominal exam: Present: soft, tenderness (Multiple tenderness of the right upper quadrant), distention. Absent: guarding, rebound, rigidity - Extremities Exam Extremities exam: Present: normal inspection, full ROM. Absent: tenderness, pedal edema - Neurological Exam Neurological exam: Present: alert, oriented X3 - Psychiatric Psychiatric exam: Present: depressed, flat affect - Skin Skin exam: Present: warm, dry, intact, normal color Course Course Narrative: Patient mildly hypertensive on presentation. The rest of his vitals were within normal limits. Patient did have distention of abdomen and mild right upper quadrant tenderness that he states is chronic. No guarding or peritoneal signs. Patient has suicidal ideation with no specific plan. He does change his story and states that he hears occasional voices. But they do not tell him to do anything harmful. Will obtain psychiatric clearance labs and then have psychiatric team evaluate. 23:04 patient lives concerning for hyperglycemia in the 400s. Patient was given insulin multiple doses and still had a blood sugar in the 300s. Psychiatric team evaluated the patient and believe that it was necessary to admit the patient for suicidal ideation. However, the psychiatrist has recommended that the patient be admitted to medicine service due to hyperglycemia. Patient will be admitted to medicine service for hyperglycemia, suicidal ideation. Psychiatry will act as a consult to the case. [place] slip signed and on chart. Vital Signs Temperature 99.1 F 08/23/16 16:38 Pulse Rate 116 08/23/16 16:38 Respiratory Rate 20 08/23/16 16:38 Blood Pressure 155/80 08/23/16 16:38 O2 Sat by Pulse Oximetry 98 08/23/16 16:38 Temperature 98.1 F 08/23/16 22:57 Pulse Rate 93 08/23/16 22:57 Respiratory Rate 16 08/23/16 22:57 Blood Pressure 162/89 08/23/16 22:57 O2 Sat by Pulse Oximetry 95 08/23/16 22:57 Oxygen Delivery Oxygen Delivery Room Air Psych - MDM Narrative Medical decision making narrative: Patient mildly hypertensive on presentation. The rest of his vitals were within normal limits. Patient did have distention of abdomen and mild right upper quadrant tenderness that he states is chronic. No guarding or peritoneal signs. Patient has suicidal ideation with no specific plan. He does change his story and states that he hears occasional voices. But they do not tell him to do anything harmful. Will obtain psychiatric clearance labs and then have psychiatric team evaluate. 23:04 patient lives concerning for hyperglycemia in the 400s. Patient was given insulin multiple doses and still had a blood sugar in the 300s. Psychiatric team evaluated the patient and believe that it was necessary to admit the patient for suicidal ideation. However, the psychiatrist has recommended that the patient be admitted to medicine service due to hyperglycemia. Patient will be admitted to medicine service for hyperglycemia, suicidal ideation. Psychiatry will act as a consult to the case. [place] slip signed and on chart. - Lab Data Lab results reviewed: Yes I reviewed the patient's lab results. Result diagrams: 08/23/16 17:37 08/23/16 17:37 Lab Results 08/23/16 08/23/16 08/23/16 Range/Units 16:56 16:59 17:37 WBC 2.3 L (4.3-11.1) K/mcL RBC 3.91 L (4.19-5.50) M/mcL Hgb 10.4 L (12.9-16.9) g/dL Hct 32.1 L (37.5-50.1) % MCV 82.1 L (83.0-100.0) fL MCH 26.6 L (28.0-33.3) pg MCHC 32.4 (31.6-35.5) g/dL RDW 19.0 H (11.5-14.5) % Plt Count 76 L (140-400) K/mcL MPV 10.4 (9.4-12.4) fL Immature Gran % 0.4 (0-4) % Seg Neutrophils % 50.5 % Lymphocytes % 35.8 % Monocytes % 9.3 % Eosinophils % 2.7 % Basophils % 1.3 % Neutrophils # 1.2 L (1.6-8.9) K/mcL Lymphocytes # 0.8 (0.6-4.6) K/mcL Monocytes # 0.2 (0.0-1.3) K/mcL Eosinophils # 0.1 (0.0-0.6) K/mcL Basophils # 0.0 (0.0-0.2) K/mcL Platelet Estimate Decreased L (Normal) Immature Plt Fraction 6.1 (1.1-6.1) % Anisocytosis 1+ A (Not Present) Sodium (136-145) mEq/L Potassium (3.5-4.5) mEq/L Chloride (98-109) mEq/L Carbon Dioxide (19-29) mEq/L BUN (8-26) mg/dL Creatinine (0.72-1.25) mg/dL Est GFR ( Amer) (> 60) Est GFR (Non-Af Amer) (> 60) BUN/Creatinine Ratio (6-26) Glucose (70-99) mg/dL POC Glucose (58-89) Calculated Osmolality (280-300) Calcium (8.6-10.8) mg/dL Urine Color Yellow (Yellow) Urine Clarity Clear (Clear) Urine pH 6.5 (5.0-8.0) pH Units Ur Specific [place] > 1.030 H (1.010-1.025) Urine Protein Negative (Neg-Trace) mg/dL Urine Glucose (UA) >=1000 H (Normal) mg/dL Urine Ketones Negative (Negative) mg/dL Urine Blood Negative (Negative) Urine Nitrite Negative (Negative) Urine Bilirubin Negative (Negative) Urine Urobilinogen Normal (Normal) mg/dL Ur Leukocyte Esterase Negative (Negative) Salicylates (15-30) mg/dL Urine Opiates Screen Positive H (Lgslan=530) ng/mL Acetaminophen (10-30) mcg/mL Ur Barbiturates Screen Negative (Erwryo=537) ng/mL Ur Phencyclidine Scrn Negative (Cutoff=25) ng/mL Ur Amphetamines Screen Negative (Njwxnh=3253) ng/mL U Benzodiazepines Scrn Negative (Ilhgrj=508) ng/mL Urine Cocaine Screen Negative (Cutoff= 300) ng/mL U Marijuana (THC) Screen Negative (Cutoff = 50) ng/mL Ethyl Alcohol (0-10) mg/dL 08/23/16 08/23/16 08/23/16 Range/Units 17:37 19:38 20:36 WBC (4.3-11.1) K/mcL RBC (4.19-5.50) M/mcL Hgb (12.9-16.9) g/dL Hct (37.5-50.1) % MCV (83.0-100.0) fL MCH (28.0-33.3) pg MCHC (31.6-35.5) g/dL RDW (11.5-14.5) % Plt Count (140-400) K/mcL MPV (9.4-12.4) fL Immature Gran % (0-4) % Seg Neutrophils % % Lymphocytes % % Monocytes % % Eosinophils % % Basophils % % Neutrophils # (1.6-8.9) K/mcL Lymphocytes # (0.6-4.6) K/mcL Monocytes # (0.0-1.3) K/mcL Eosinophils # (0.0-0.6) K/mcL Basophils # (0.0-0.2) K/mcL Platelet Estimate (Normal) Immature Plt Fraction (1.1-6.1) % Anisocytosis (Not Present) Sodium 132 L (136-145) mEq/L Potassium 4.4 (3.5-4.5) mEq/L Chloride 99 (98-109) mEq/L Carbon Dioxide 22 (19-29) mEq/L BUN 14 (8-26) mg/dL Creatinine 1.22 (0.72-1.25) mg/dL Est GFR ( Amer) > 60 (> 60) Est GFR (Non-Af Amer) 60 (> 60) BUN/Creatinine Ratio 11 (6-26) Glucose 437 H (70-99) mg/dL POC Glucose 387 H 372 H (58-89) Calculated Osmolality 293 (280-300) Calcium 8.9 (8.6-10.8) mg/dL Urine Color (Yellow) Urine Clarity (Clear) Urine pH (5.0-8.0) pH Units Ur Specific [place] (1.010-1.025) Urine Protein (Neg-Trace) mg/dL Urine Glucose (UA) (Normal) mg/dL Urine Ketones (Negative) mg/dL Urine Blood (Negative) Urine Nitrite (Negative) Urine Bilirubin (Negative) Urine Urobilinogen (Normal) mg/dL Ur Leukocyte Esterase (Negative) Salicylates < 5.0 L (15-30) mg/dL Urine Opiates Screen (Gstnry=779) ng/mL Acetaminophen < 1.0 L (10-30) mcg/mL Ur Barbiturates Screen (Knhdes=646) ng/mL Ur Phencyclidine Scrn (Cutoff=25) ng/mL Ur Amphetamines Screen (Vabtuh=2655) ng/mL U Benzodiazepines Scrn (Uvevvp=529) ng/mL Urine Cocaine Screen (Cutoff= 300) ng/mL U Marijuana (THC) Screen (Cutoff = 50) ng/mL Ethyl Alcohol < 10 (0-10) mg/dL 08/23/16 08/23/16 08/23/16 Range/Units 20:47 21:34 21:53 WBC (4.3-11.1) K/mcL RBC (4.19-5.50) M/mcL Hgb (12.9-16.9) g/dL Hct (37.5-50.1) % MCV (83.0-100.0) fL MCH (28.0-33.3) pg MCHC (31.6-35.5) g/dL RDW (11.5-14.5) % Plt Count (140-400) K/mcL MPV (9.4-12.4) fL Immature Gran % (0-4) % Seg Neutrophils % % Lymphocytes % % Monocytes % % Eosinophils % % Basophils % % Neutrophils # (1.6-8.9) K/mcL Lymphocytes # (0.6-4.6) K/mcL Monocytes # (0.0-1.3) K/mcL Eosinophils # (0.0-0.6) K/mcL Basophils # (0.0-0.2) K/mcL Platelet Estimate (Normal) Immature Plt Fraction (1.1-6.1) % Anisocytosis (Not Present) Sodium (136-145) mEq/L Potassium (3.5-4.5) mEq/L Chloride (98-109) mEq/L Carbon Dioxide (19-29) mEq/L BUN (8-26) mg/dL Creatinine (0.72-1.25) mg/dL Est GFR ( Amer) (> 60) Est GFR (Non-Af Amer) (> 60) BUN/Creatinine Ratio (6-26) Glucose (70-99) mg/dL POC Glucose 376 H 310 H 308 H (58-89) Calculated Osmolality (280-300) Calcium (8.6-10.8) mg/dL Urine Color (Yellow) Urine Clarity (Clear) Urine pH (5.0-8.0) pH Units Ur Specific [place] (1.010-1.025) Urine Protein (Neg-Trace) mg/dL Urine Glucose (UA) (Normal) mg/dL Urine Ketones (Negative) mg/dL Urine Blood (Negative) Urine Nitrite (Negative) Urine Bilirubin (Negative) Urine Urobilinogen (Normal) mg/dL Ur Leukocyte Esterase (Negative) Salicylates (15-30) mg/dL Urine Opiates Screen (Kbdefd=825) ng/mL Acetaminophen (10-30) mcg/mL Ur Barbiturates Screen (Uwkbfi=781) ng/mL Ur Phencyclidine Scrn (Cutoff=25) ng/mL Ur Amphetamines Screen (Xbxbyz=1147) ng/mL U Benzodiazepines Scrn (Fexabi=629) ng/mL Urine Cocaine Screen (Cutoff= 300) ng/mL U Marijuana (THC) Screen (Cutoff = 50) ng/mL Ethyl Alcohol (0-10) mg/dL Psychiatric Medical Clearance - Medical Clearance Checklist Medical History: No Social History Section defined Current Vitals: Last Vital Signs Temp 98.1 F 08/23/16 22:57 Pulse 93 08/23/16 22:57 Resp 16 08/23/16 22:57 BP 162/89 08/23/16 22:57 Pulse Ox 95 08/23/16 22:57 Psychiatric Lab Panel: Drug Levels and Toxicity 08/23/16 08/23/16 16:56 17:37 Urine Opiates Screen Positive H Acetaminophen < 1.0 L Ur Barbiturates Screen Negative Ur Phencyclidine Scrn Negative Ur Amphetamines Screen Negative U Benzodiazepines Scrn Negative Urine Cocaine Screen Negative U Marijuana (THC) Screen Negative Ethyl Alcohol < 10 Abnormal Labs: Abnormal lab results WBC 2.3 K/mcL (4.3-11.1) L 08/23/16 17:37 RBC 3.91 M/mcL (4.19-5.50) L 08/23/16 17:37 Hgb 10.4 g/dL (12.9-16.9) L 08/23/16 17:37 Hct 32.1 % (37.5-50.1) L 08/23/16 17:37 MCV 82.1 fL (83.0-100.0) L 08/23/16 17:37 MCH 26.6 pg (28.0-33.3) L 08/23/16 17:37 RDW 19.0 % (11.5-14.5) H 08/23/16 17:37 Plt Count 76 K/mcL (140-400) L 08/23/16 17:37 Neutrophils # 1.2 K/mcL (1.6-8.9) L 08/23/16 17:37 Platelet Estimate Decreased (Normal) L 08/23/16 17:37 Anisocytosis 1+ (Not Present) A 08/23/16 17:37 Sodium 132 mEq/L (136-145) L 08/23/16 17:37 Glucose 437 mg/dL (70-99) H 08/23/16 17:37 POC Glucose 308 (58-89) H 08/23/16 21:53 Ur Specific [place] > 1.030 (1.010-1.025) H 08/23/16 16:59 Urine Glucose (UA) >=1000 mg/dL (Normal) H 08/23/16 16:59 Salicylates < 5.0 mg/dL (15-30) L 08/23/16 17:37 Urine Opiates Screen Positive ng/mL (Mvokkd=007) H 08/23/16 16:56 Acetaminophen < 1.0 mcg/mL (10-30) L 08/23/16 17:37 Statement of Medical Clearance: I have evaluated the patient, reviewed diagnostic information, and certify that the patient's medical condition is sufficiently stable that transfer to the psychiatric unit does not pose a significant risk of deterioration. Stuart - Stuart Situation: Demographics, MOA Background: Presenting Complaint, Relevant PMH, Meds, & Allergies Assessment: Vital Signs, Course and respsone to treatment, Exam Concerns, Patient/Family Expectation, Pertinant Lab Results, Outstanding Labs Recommendation: Barrier(s) to disposition, Recommendation based on pending studies, treatments, or consults Stuart Report Given to: Dr. Donaldo Davidson Repor Time: 23:03 Attestation Statement - Attestation Attestation: For this encounter, I have reviewed the resident, TELEMETRY TECH, or PA documentation, treatment plan, and medical decision making; and I have had face to face time with this patient. 66-year-old male presents with concerns of anxiety, depression and fleeting suicidal ideation. Patient states that he often has fleeting thoughts but does not have a specific plan. Patient states that he is depressed because of his recent medical history of multiple admissions to the hospital. Patient denies suicidal ideation during my initial evaluation. Patient denies chest pain shortness of breath, nausea, vomiting, diarrhea, fever, chills, headache. Denies taking extra of his medications or attempting to hurt himself prior to arrival. Patient is a and has been admitted at the [facility] in the past. Patient has elevation of his glucose on his laboratory results. He does not have an anion gap and does not exhibit symptoms consistent with DKA or HHS. Patient states his blood sugars often in the 300-400 range. Patient reports it is quite frequent that his blood sugar is this elevated. Behavioral health initially requested that the patient have his blood sugar be 200 prior to seeing him. Patient was given multiple doses of insulin and his blood sugar is now 310 on reevaluation. I spoke with the covering psychiatrist who agreed the patient was likely able to be seen for psychiatric evaluation as he is not exhibiting symptoms consistent with DKA or HHS. However if the patient needs to be admitted he will be admitted to a medical bed because of his elevated blood sugars. Haris is currently seeing the patient. Care will be transferred to Dr. Templeton pending reevaluation and disposition.
[2016-08-23 17:12] LABS: Amphetamine Screen,Urine Negative ng/mL (Cutoff=1000); Barbiturate Screen,Urine Negative ng/mL (Cutoff=200); Benzodiazepines Screen,Urine Negative ng/mL (Cutoff=200); Cannabinoid Screen,Urine Negative ng/mL (Cutoff = 50); Cocaine Screen,Urine Negative ng/mL (Cutoff= 300); Opiate Screen,Urine Positive ng/mL (Cutoff=300); Phencyclidine Screen,Urine Negative ng/mL (Cutoff=25)
[2016-08-23] MEDS ORDERED: *HR* OxyCODONE/APAP 5/325 TABLET PO ONE (17:29)
[2016-08-23 18:01] LABS: Hematocrit 32.1 % (37.5-50.1); Hemoglobin 10.4 g/dL (12.9-16.9); Mean Corpuscular HGB Conc 32.4 g/dL (31.6-35.5); Mean Platelet Volume 10.4 fL (9.4-12.4)
[2016-08-23 18:03] LABS: Basophils % 1.3 %; Eosinophils # 0.1 K/mcL (0.0-0.6); Eosinophils % 2.7 %; Immature Granulocytes % 0.4 % (0-4); Immature Platelets 6.1 % (1.1-6.1); Lymphocytes # 0.8 K/mcL (0.6-4.6); Lymphocytes % 35.8 %; Mean Corpuscular Hemoglobin 26.6 pg (28.0-33.3); Mean Corpuscular Volume 82.1 fL (83.0-100.0); Monocytes # 0.2 K/mcL (0.0-1.3); Monocytes % 9.3 %; Red Blood Count 3.91 M/mcL (4.19-5.50); Segmented Neutrophils % 50.5 %
[2016-08-23 18:15] LABS: BUN/Creatinine Ratio 11 (6-26); Blood Urea Nitrogen 14 mg/dL (8-26); Calcium 8.9 mg/dL (8.6-10.8); Carbon Dioxide 22 mEq/L (19-29); Chloride 99 mEq/L (98-109); Glucose 437 mg/dL (70-99); Osmolality,Calculated 293 (280-300); Potassium 4.4 mEq/L (3.5-4.5); Sodium 132 mEq/L (136-145); eGFR For African Americans > 60 (> 60); eGFR For Non-African Americans 60 (> 60)
[2016-08-23] MEDS ORDERED: *HR* LORazepam 1 MG TABLET PO ONE ×2 (18:19→19:42)
[2016-08-23 18:20] LABS: Acetaminophen < 1.0 mcg/mL (10-30); Ethanol < 10 mg/dL (0-10); Salicylate < 5.0 mg/dL (15-30)
[2016-08-23 18:25] LABS: Neutrophils # 1.2 K/mcL (1.6-8.9); Platelet Count 76 K/mcL (140-400)
[2016-08-23 18:31] LABS: Anisocytosis 1+ (Not Present); Platelet Estimate Decreased (Normal)
[2016-08-23] MEDS ORDERED: Insulin Regular, Human 100 UNIT/ML SQ ONE ×4 (18:46→21:17)
[2016-08-24] MEDS ORDERED: *HR* Promethazine 25 MG/ML VIAL IVP PRN (03:56)
[2016-08-24] MEDS ORDERED: Naloxone 0.4 MG/ML INJ IVP PRN (03:56)
[2016-08-24] MEDS ORDERED: Acetaminophen 325 MG TABLET PO PRN (03:56)
[2016-08-24] MEDS ORDERED: *HR* Dextrose 50 % in Water (Syg) 50 ML SYRINGE IVP PRN (03:56)
[2016-08-24] MEDS ORDERED: D5% in Water 1,000 ML IV PRN (03:56)
[2016-08-24] MEDS ORDERED: Dextrose Gel 15 GM PO PRN ×2 (03:56)
[2016-08-24] MEDS ORDERED: 0.9 % Sodium Chloride 1,000 ML ONE (04:01)
--- NOTE | 2016-08-24 04:15 | Internal Med History&Physical ---
Date of Encounter: 08/24/16 Time of Encounter: 04:08 Assessment and Plan (1) Poorly controlled diabetes mellitus Current visit: Yes Status: Acute 1. This is most likely due to non-compliance and anxiety/depression. 2. Will resume home basal insulin and add SSI. 3. Monitor glucose and adjust accordingly. 4. Consult psychiatry for depression. (2) Suicidal ideations Current visit: Yes Status: Acute 1. Suicide precautions. 2. 24 hour sitter. 3. Consult psychiatry. (3) Cirrhosis Current visit: Yes Status: Chronic 1. Continue home meds as appropriate. 2. Monitor for any complications and/or encephalopathy. 3. 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 Qualifiers: Hepatic cirrhosis type: other cirrhosis Qualified Code(s): K74.69 - Other cirrhosis of liver (4) DVT prophylaxis Current visit: No Status: Acute 1. Heparin SQ> 2. Monitor platelet counts. Internal Medicine - H&P: HPI Chief complaint: suicidal thoughts Admitted From: Emergency Dept Plans for Post Hospital Care: Home History of present illness: Mr. Ramirez is a 66 year old male who [facility] complaints of depression, suicidal thoughts, and feeling alone. Although he does not have a plan, he states he is suicidal and does not wish to be discharged back to his shelter where he resides. Initial workup in the ER revealed the patient to have hyperglycemia and poorly controlled diabetes. Psychiatrist was contacted but recommend admission to medicine due to poorly controlled diabetes. He therefore was admitted to the hospitalist service. Upon my assessment of the patient, he is sleeping but easily arousable. He admits to having had suicidal thoughts and tendency, but he does not have any plan. He denies any thoughts of homicide. Regarding his diabetes, he states he has poor control, mostly due to lack of compliance with diet and his medications. He states that when he is depressed, he does not maintain his home medications and does not check his glucose. Additionally, he eats what he wants and does not check his glucose either. He denies any fevers, chills, night sweats, profuse vomiting or diarrhea. Patient received insulin in the ER and was admitted to hospitalist service. Past Med Surg Social Fam HX - Past Medical History Attestation: Yes The following information was validated with the patient. Source: patient, old records reviewed Medical history: arthritis, cirrhosis, CHF, COPD, coronary artery disease, diabetes, GERD, hyperlipidemia, hypertension, liver disease, osteoporosis, TIA Psychiatric history: anxiety, depression, PTSD, previous psychiatric hospitalization - Past Surgical History Surgical History: appendectomy, cholecystectomy, herniorrhaphy, knee replacement , other - Social History Smoking Status: Never smoker Smokeless Tobacco Status: No Alcohol use: none Drug use: none Current living situation: Senior [facility] Activity Level: Independent ambulation Recent Out of Country Travel Within the Last 8 Weeks: No - Family History Mother Living Status: Hx Family Cancer: Yes Internal Medicine - H&P: Meds Cholecalciferol (Vitamin D3) [Vitamin D] 1,000 unit PO DAILY 05/13/15 [History] Insulin ASPART [NovoLOG] 48 - 100 unit SQ TIDWM 05/13/15 [History] Ropinirole HCl [Requip] 2 mg PO HS 05/13/15 [History] Venlafaxine HCl [Effexor Xr] 75 mg PO DAILY 05/13/15 [History] Aspirin Enteric Coated [Aspirin EC] 81 mg PO DAILY 11/13/15 [History] Atorvastatin [Lipitor] 40 mg PO HS 11/13/15 [History] Insulin Glargine,Hum.rec.anlog [Lantus Solostar] 160 unit SQ BID 11/13/15 [ History] Lactulose 30 gm PO TID 11/13/15 [History] Omeprazole [PriLOSEC] 20 mg PO DAILY 11/13/15 [History] Tamsulosin [Flomax] 0.4 mg PO DAILY 11/13/15 [History] Furosemide [Lasix] 40 mg PO DAILY 05/16/16 [History] Lisinopril [Zestril] 2.5 mg PO HS 05/16/16 [History] RisperiDONE [Risperdal] 3 mg PO HS 05/16/16 [History] Rivaroxaban [Xarelto] 10 mg PO DAILY 05/16/16 [History] Sertraline [Zoloft] 50 mg PO DAILY 05/16/16 [History] Spironolactone [Aldactone] 50 mg PO DAILY 05/16/16 [History] Atenolol [Tenormin] 50 mg PO DAILY 05/29/16 [History] LevETIRAcetam [Keppra] 750 mg PO BID 06/07/16 [History] Ipratropium/Albuterol Neb [Duoneb] 3 ml IH Q6HR PRN 08/10/16 [History] HYDROcodone/Acet 5/325 mg [[place] 5-325 mg] 1 tab PO BID PRN #20 tablet 08/19/16 [Rx] Rifaximin [Xifaxan] 200 mg PO BID tablet 08/19/16 [Rx] Allergies Iodinated Contrast Media - Oral and Allergy (Verified 08/23/16 16:37) Difficulty Breathing ketorolac [From Toradol] Allergy (Verified 08/23/16 16:37) Nausea Penicillins Allergy (Verified 08/23/16 16:37) Rash butorphanol [From Stadol] Adverse Reaction (Verified 08/23/16 16:37) Nausea celecoxib Adverse Reaction (Verified 08/23/16 16:37) [facility] gabap[facility] Adverse Reaction (Verified 08/23/16 16:37) unknown [facility] list. mirtazapine Adverse Reaction (Verified 08/23/16 16:37) [facility] tramadol Adverse Reaction (Verified 08/23/16 16:37) [facility] vancomycin Adverse Reaction (Verified 08/23/16 16:37) [facility] - Constitutional Constitutional: no chills, no fever(s), no night sweats - EENT Eyes: no change in vision, no decreased night vision, no photophobia Ears: no ear pain, no tinnitus Nose, mouth and throat: no nasal congestion, no sinus pressure, no sore throat, no throat swelling - Cardiovascular Cardiovascular ROS IM: no as per HPI, no chest pain, no dyspnea, no dyspnea on exertion - Respiratory Respiratory: no cough, no dyspnea, no hemoptysis - Gastrointestinal Gastrointestinal: no abdominal pain, no belching, no diarrhea, no vomiting - Genitourinary Genitourinary ROS male: no dysuria, no flank pain, no hematuria - Musculoskeletal Musculoskeletal ROS IM: back pain, stiffness - Integumentary Integumentary IM: no rash, no jaundice - Neurological Neurological ROS: no dizziness, no focal weakness, no frequent falls - Psychiatric Psychiatric: anxiety, depression, hopelessness, suicidal ideation, no hallucinations, no homicidal ideation - Endocrine Endocrine IM: polydipsia, polyuria, no polyphagia - Hematologic/Lymphatic Hematologic/Lymphatic: easy bruising, no lymphadenopathy - Allergic/Immunologic Allergic/Immunologic: no wheezing, no GI upset with certain foods - Constitutional Vitals: Temp Pulse Resp BP Pulse Ox 98.2 F 94 15 126/74 96 08/24/16 00:27 08/24/16 00:27 08/24/16 00:27 08/24/16 00:27 08/24/16 00:27 General appearance: Present: cooperative, A&O X 3, pleasant, no acute distress, answers questions appropriately - Head Head exam: Present: atraumatic, normal inspection - Expanded Head Exam Head exam expanded: Absent: abrasion, contusion, general tenderness - Eye Eye exam: Present: EOMI, normal appearance, PERRL. Absent: scleral icterus Pupils: Present: normal accommodation - ENT ENT exam: Present: mucous membranes dry, normal exam, normal oropharynx - Neck Neck exam general surgery: Present: full ROM, supple, trachea midline. Absent: tenderness - Respiratory Respiratory exam: Present: CTAB. Absent: chest wall tenderness, rales, respiratory distress, rhonchi, wheezes - Cardiovascular Cardiovascular exam: Present: RRR, +S1, +S2. Absent: diastolic murmur, systolic murmur - GI/Abdominal GI/Abdominal exam: Present: normal bowel sounds, soft, no peritoneal signs. Absent: hepatomegaly, mass, splenomegaly, tenderness - Extremities Exam Extremities exam: Present: full ROM, warm. Absent: calf tenderness, joint swelling, pedal edema - Back Exam Back exam: Present: normal inspection. Absent: CVA tenderness (L), CVA tenderness (R) - Neurological Exam Neurological exam: Present: alert, CN II-XII intact, oriented X3, no focal deficits, strengths equal and symetr throughout - Psychiatric Psychiatric exam: Present: depressed, suicidal ideation. Absent: homicidal ideation - Skin Skin exam: Present: dry, warm. Absent: rash Internal Med - H&P Results - Labs CBC & Chem 7: 08/23/16 17:37 08/23/16 17:37
[2016-08-24] MEDS: 0.9 % Sodium Chloride 1,000 ML IVC SCH ×2 (06:07→13:42)
[2016-08-24] MEDS: *HR* Morphine 2 MG/ML SYRINGE IVP PRN ×5 (06:11→22:01)
[2016-08-24 06:13] LABS: Immature Granulocytes % 0.4 % (0-4)
[2016-08-24] MEDS: *HR* Heparin 5,000 UNIT/ML VIAL SQ SCH ×3 (06:13→22:00)
[2016-08-24 06:15] LABS: Basophils % 1.2 %; Eosinophils # 0.1 K/mcL (0.0-0.6); Eosinophils % 4.2 %; Hematocrit 32.7 % (37.5-50.1); Hemoglobin 10.2 g/dL (12.9-16.9); Immature Platelets 6.5 % (1.1-6.1); Lymphocytes % 37.5 %; Mean Corpuscular HGB Conc 31.2 g/dL (31.6-35.5); Mean Corpuscular Hemoglobin 25.7 pg (28.0-33.3); Mean Corpuscular Volume 82.4 fL (83.0-100.0); Mean Platelet Volume 10.4 fL (9.4-12.4); Monocytes # 0.3 K/mcL (0.0-1.3); Neutrophils # 1.2 K/mcL (1.6-8.9); Red Blood Count 3.97 M/mcL (4.19-5.50); Red Cell Distribution Width 19.3 % (11.5-14.5); Segmented Neutrophils % 44.7 %
[2016-08-24 06:19] LABS: Hemoglobin A1C 9.4 %; Platelet Count 66 K/mcL (140-400)
[2016-08-24 06:26] LABS: Alanine Aminotransferase 51 Units/L (0-55); Albumin 3.2 g/dL (3.5-5.0); Albumin/Globulin Ratio 0.7 (1.1-2.2); Alkaline Phosphatase 144 Units/L (38-126); Aspartate Amino Transferase 47 Units/L (5-34); BUN/Creatinine Ratio 14 (6-26); Bilirubin,Total 0.4 mg/dL (0.2-1.2); Blood Urea Nitrogen 13 mg/dL (8-26); Calcium 8.9 mg/dL (8.6-10.8); Carbon Dioxide 22 mEq/L (19-29); Chloride 103 mEq/L (98-109); Globulin 4.8 g/dL (2.4-3.5); Glucose 209 mg/dL (70-99); Magnesium 1.3 mg/dL (1.6-2.6); Osmolality,Calculated 282 (280-300); Sodium 133 mEq/L (136-145); eGFR For African Americans > 60 (> 60); eGFR For Non-African Americans > 60 (> 60)
[2016-08-24] MEDS ORDERED: *HR* LORazepam 1 MG TABLET PO ONE (06:50)
[2016-08-24 06:57] LABS: Platelet Estimate Decreased (Normal)
[2016-08-24 06:59] LABS: Anisocytosis 1+ (Not Present)
[2016-08-24] MEDS ORDERED: Magnesium Sulfate 2 GM in D5% in Water 100 ML IVPB ONE (08:17)
[2016-08-24] MEDS: levETIRAcetam 250 MG TABLET PO SCH ×2 (08:25→21:03)
[2016-08-24] MEDS: Cholecalciferol (D-3) 1,000 UNIT TABLET PO SCH (08:27)
[2016-08-24] MEDS: Aspirin Enteric Coated 81 MG Tablet PO SCH (08:27)
[2016-08-24] MEDS: Insulin DETEMIR 100 UNIT/ML X5UNITS SQ SCH ×2 (08:34→21:05)
[2016-08-24] MEDS: Insulin LISPRO 300 UNITS/3 ML VIAL SQ SCH ×5 (08:35→18:05)
[2016-08-24] MEDS: *HR* HYDROcodone/Acet 5/325 mg TABLET PO PRN (08:42)
[2016-08-24] MEDS ORDERED: INSULIN GLARGINE HUM REC ANLOG SQ SCH (09:00)
[2016-08-24] MEDS ORDERED: [UNRECOGNIZED DRUG - OTHER] SQ SCH (09:00)
[2016-08-24] MEDS: Ipratropium/Albuterol Neb 3 ML IH SCH ×3 (11:02→22:03)
--- NOTE | 2016-08-24 16:02 | Consult Note ---
Date of Encounter: 08/24/16 Time of Encounter: 15:10 Assessment & Recommendation (1) Altered mental status Current visit: Yes Status: Acute Assessment & Recommendation: Patient is a 66 years old gentleman admitted to evaluate poorly controlled diabetes and suicidal ideation. Patient denies any suicidal ideation and he had psychiatric treatment history at the [facility] in [place] and according to him in for treatment for ADHD with Ritalin until 2 years ago. Apparently the patient's did not follow-up and did not schedule an appointment for psychiatric care. Patient does not have any acute psychiatric condition that require inpatient treatment. Recommend that he schedule an outpatient psychiatric appointments at the [facility] to continue his care and [place] and maintain his treatments at the [facility]. I discussed this recommendation with the patient's and he is agreeable. Thank you for consultation Qualifiers: Altered mental status type: delirium Qualified Code(s): R41.0 - Disorientation, unspecified History of Present Illness Patient: new to practice Requesting Physician: Laisha Myers Reason for consult: Suicidal ideation History of present illness: Mr. Ramirez is a 66 year old male admitted to the hospital for evaluation of hyperglycemia and and suicidal ideation. Patient was found to be diabetic and poorly controlled with glucose level over 400. He is being treated and stabilized on the medical floor at this time. Psychiatric consultation was requested to evaluate suicidal ideation. Patient stated that he was under psychiatric care at the [facility] in [place], he moved to [place] 2 years ago and has not had follow-up appointments with psychiatry. Patient told me he was treated in the past for attention deficit with Ritalin and has been off for 2 years. He likes to go back on medication for attention and he denies any suicidal ideation or intention to harm himself. He admits to noncompliance with medication as advised. He reports previous treatment and psychiatric care at the [facility] in [place]. CC: Laisha Myers Past Med Surg Social Fam HX - Past Medical History Medical history: arthritis, cirrhosis, CHF, COPD, coronary artery disease, diabetes, GERD, hyperlipidemia, hypertension, liver disease, osteoporosis, TIA - Past Psychiatric History Psychiatric history: Reports: ADHD, previous psychiatric hospitalization Past psychiatric history details: [facility] in [place] Family psychiatric history: Unknown Family History of Suicide: Unknown - Past Surgical History Surgical History: appendectomy, cholecystectomy, herniorrhaphy, knee replacement , other - Social History Smoking Status: Never smoker Smokeless Tobacco Status: No Alcohol use: none Drug use: none - Family History Mother Living Status: Hx Family Cancer: Yes Medications & Allergies Cholecalciferol (Vitamin D3) [Vitamin D] 1,000 unit PO DAILY 05/13/15 [History] Insulin ASPART [NovoLOG] 48 - 100 unit SQ TIDWM 05/13/15 [History] Ropinirole HCl [Requip] 2 mg PO HS 05/13/15 [History] Venlafaxine HCl [Effexor Xr] 75 mg PO DAILY 05/13/15 [History] Aspirin Enteric Coated [Aspirin EC] 81 mg PO DAILY 11/13/15 [History] Atorvastatin [Lipitor] 40 mg PO HS 11/13/15 [History] Insulin Glargine,Hum.rec.anlog [Lantus Solostar] 160 unit SQ BID 11/13/15 [ History] Lactulose 30 gm PO TID 11/13/15 [History] Omeprazole [PriLOSEC] 20 mg PO DAILY 11/13/15 [History] Tamsulosin [Flomax] 0.4 mg PO DAILY 11/13/15 [History] Furosemide [Lasix] 40 mg PO DAILY 05/16/16 [History] Lisinopril [Zestril] 2.5 mg PO HS 05/16/16 [History] RisperiDONE [Risperdal] 3 mg PO HS 05/16/16 [History] Rivaroxaban [Xarelto] 10 mg PO DAILY 05/16/16 [History] Sertraline [Zoloft] 50 mg PO DAILY 05/16/16 [History] Spironolactone [Aldactone] 50 mg PO DAILY 05/16/16 [History] Atenolol [Tenormin] 50 mg PO DAILY 05/29/16 [History] LevETIRAcetam [Keppra] 750 mg PO BID 06/07/16 [History] Ipratropium/Albuterol Neb [Duoneb] 3 ml IH Q6HR PRN 08/10/16 [History] HYDROcodone/Acet 5/325 mg [[place] 5-325 mg] 1 tab PO BID PRN #20 tablet 08/19/16 [Rx] Rifaximin [Xifaxan] 200 mg PO BID tablet 08/19/16 [Rx] Allergies Iodinated Contrast Media - Oral and Allergy (Verified 08/23/16 16:37) Difficulty Breathing ketorolac [From Toradol] Allergy (Verified 08/23/16 16:37) Nausea Penicillins Allergy (Verified 08/23/16 16:37) Rash butorphanol [From Stadol] Adverse Reaction (Verified 08/23/16 16:37) Nausea celecoxib Adverse Reaction (Verified 08/23/16 16:37) [facility] gabap[facility] Adverse Reaction (Verified 08/23/16 16:37) unknown [facility] list. mirtazapine Adverse Reaction (Verified 08/23/16 16:37) [facility] tramadol Adverse Reaction (Verified 08/23/16 16:37) [facility] vancomycin Adverse Reaction (Verified 08/23/16 16:37) [facility] Review of Systems Psychiatric: Reports: difficulty concentrating Mental Status Exam Patient orientation: Yes Person, Yes Time, Yes Place Level of alertness: Alert Patient appearance: Appropriate, Unkempt, Obese Behavior: calm, cooperative Psychomotor activity: Normal Eye contact: Maintains Eye Contact Mood description: Euthymic/stable Affect description: congruent with mood, full range Speech pattern: Normal rate, Normal rhythm, Normal tone Speech volume: Normal Thought process: Linear, Goal Oriented Thought content: No Suicidal ideation, No Homicidal ideation, No Overt delusions Perceptual disturbances: No Auditory hallucinations, No Visual hallucinations Attention span: Capable of Focused Attention Memory description: Grossly Intact Patient reliability: Reliable Historian Intelligence estimate: Average Judgment: Limited Insight: Partial Results - Vital Signs Vital signs: Temp Pulse Resp BP Pulse Ox 97.5 F L 84 20 138/79 95 08/24/16 10:51 08/24/16 10:51 08/24/16 10:51 08/24/16 10:51 08/24/16 10:51 - Labs Labs: Laboratory Last Values WBC 2.6 K/mcL (4.3-11.1) L 08/24/16 05:47 RBC 3.97 M/mcL (4.19-5.50) L 08/24/16 05:47 Hgb 10.2 g/dL (12.9-16.9) L 08/24/16 05:47 Hct 32.7 % (37.5-50.1) L 08/24/16 05:47 MCV 82.4 fL (83.0-100.0) L 08/24/16 05:47 MCH 25.7 pg (28.0-33.3) L 08/24/16 05:47 MCHC 31.2 g/dL (31.6-35.5) L 08/24/16 05:47 RDW 19.3 % (11.5-14.5) H 08/24/16 05:47 Plt Count 66 K/mcL (140-400) L 08/24/16 05:47 MPV 10.4 fL (9.4-12.4) 08/24/16 05:47 Immature Gran % 0.4 % (0-4) 08/24/16 05:47 Seg Neutrophils % 44.7 % 08/24/16 05:47 Lymphocytes % 37.5 % 08/24/16 05:47 Monocytes % 12.0 % 08/24/16 05:47 Eosinophils % 4.2 % 08/24/16 05:47 Basophils % 1.2 % 08/24/16 05:47 Neutrophils # 1.2 K/mcL (1.6-8.9) L 08/24/16 05:47 Lymphocytes # 1.0 K/mcL (0.6-4.6) 08/24/16 05:47 Monocytes # 0.3 K/mcL (0.0-1.3) 08/24/16 05:47 Eosinophils # 0.1 K/mcL (0.0-0.6) 08/24/16 05:47 Basophils # 0.0 K/mcL (0.0-0.2) 08/24/16 05:47 Platelet Estimate Decreased (Normal) L 08/24/16 05:47 Immature Plt Fraction 6.5 % (1.1-6.1) H 08/24/16 05:47 Anisocytosis 1+ (Not Present) A 08/24/16 05:47 Sodium 133 mEq/L (136-145) L 08/24/16 05:47 Potassium 4.0 mEq/L (3.5-4.5) 08/24/16 05:47 Chloride 103 mEq/L (98-109) 08/24/16 05:47 Carbon Dioxide 22 mEq/L (19-29) 08/24/16 05:47 BUN 13 mg/dL (8-26) 08/24/16 05:47 Creatinine 0.92 mg/dL (0.72-1.25) 08/24/16 05:47 Est GFR ( Amer) > 60 (> 60) 08/24/16 05:47 Est GFR (Non-Af Amer) > 60 (> 60) 08/24/16 05:47 BUN/Creatinine Ratio 14 (6-26) 08/24/16 05:47 Glucose 209 mg/dL (70-99) H 08/24/16 05:47 POC Glucose 237 (58-89) H 08/24/16 07:17 Est Mean Plasma Glucose 223 mg/dl 08/24/16 05:47 Hemoglobin A1c 9.4 % (-5.6) H 08/24/16 05:47 Calculated Osmolality 282 (280-300) 08/24/16 05:47 Calcium 8.9 mg/dL (8.6-10.8) 08/24/16 05:47 Magnesium 1.3 mg/dL (1.6-2.6) L 08/24/16 05:47 Total Bilirubin 0.4 mg/dL (0.2-1.2) 08/24/16 05:47 AST 47 Units/L (5-34) H 08/24/16 05:47 ALT 51 Units/L (0-55) 08/24/16 05:47 Alkaline Phosphatase 144 Units/L (38-126) H 08/24/16 05:47 Serum Total Protein 8.0 g/dL (6.0-8.3) 08/24/16 05:47 Albumin 3.2 g/dL (3.5-5.0) L 08/24/16 05:47 Globulin 4.8 g/dL (2.4-3.5) H 08/24/16 05:47 Albumin/Globulin Ratio 0.7 (1.1-2.2) L 08/24/16 05:47 Urine Color Yellow (Yellow) 08/23/16 16:59 Urine Clarity Clear (Clear) 08/23/16 16:59 Urine pH 6.5 pH Units (5.0-8.0) 08/23/16 16:59 Ur Specific [place] > 1.030 (1.010-1.025) H 08/23/16 16:59 Urine Protein Negative mg/dL (Neg-Trace) 08/23/16 16:59 Urine Glucose (UA) >=1000 mg/dL (Normal) H 08/23/16 16:59 Urine Ketones Negative mg/dL (Negative) 08/23/16 16:59 Urine Blood Negative (Negative) 08/23/16 16:59 Urine Nitrite Negative (Negative) 08/23/16 16:59 Urine Bilirubin Negative (Negative) 08/23/16 16:59 Urine Urobilinogen Normal mg/dL (Normal) 08/23/16 16:59 Ur Leukocyte Esterase Negative (Negative) 08/23/16 16:59 Salicylates < 5.0 mg/dL (15-30) L 08/23/16 17:37 Urine Opiates Screen Positive ng/mL (Ofneul=227) H 08/23/16 16:56 Acetaminophen < 1.0 mcg/mL (10-30) L 08/23/16 17:37 Ur Barbiturates Screen Negative ng/mL (Qwxpch=670) 08/23/16 16:56 Ur Phencyclidine Scrn Negative ng/mL (Cutoff=25) 08/23/16 16:56 Ur Amphetamines Screen Negative ng/mL (Ktider=2738) 08/23/16 16:56 U Benzodiazepines Scrn Negative ng/mL (Khsmrj=379) 08/23/16 16:56 Urine Cocaine Screen Negative ng/mL (Cutoff= 300) 08/23/16 16:56 U Marijuana (THC) Screen Negative ng/mL (Cutoff = 50) 08/23/16 16:56 Ethyl Alcohol < 10 mg/dL (0-10) 08/23/16 17:37 Consult Discharge Plan - Plan Referrals: NO,PCP [Primary Care Provider] -
[2016-08-24] MEDS ORDERED: RisperiDAL 3 MG TABLET PO SCH (21:00)
[2016-08-24] MEDS ORDERED: Insulin LISPRO 300 UNITS/3 ML VIAL SQ SCH (21:00)
[2016-08-25] MEDS: *HR* HYDROcodone/Acet 5/325 mg TABLET PO PRN ×2 (00:23→13:20)
[2016-08-25] MEDS: 0.9 % Sodium Chloride 1,000 ML IVC SCH ×2 (00:24→11:36)
[2016-08-25] MEDS: *HR* Morphine 2 MG/ML SYRINGE IVP PRN ×2 (02:20→09:29)
[2016-08-25] MEDS: Ipratropium/Albuterol Neb 3 ML IH SCH ×2 (03:54→09:55)
[2016-08-25] MEDS: *HR* Heparin 5,000 UNIT/ML VIAL SQ SCH ×2 (05:32→13:22)
[2016-08-25] MEDS ORDERED: Magnesium Sulfate 2 GM in D5% in Water 100 ML IVPB STA (08:04)
[2016-08-25] MEDS ORDERED: Insulin DETEMIR 100 UNIT/ML X5UNITS SQ SCH (09:00)
[2016-08-25] MEDS: Insulin LISPRO 300 UNITS/3 ML VIAL SQ SCH ×4 (09:29→11:36)
[2016-08-25] MEDS: Cholecalciferol (D-3) 1,000 UNIT TABLET PO SCH (09:31)
[2016-08-25] MEDS: Aspirin Enteric Coated 81 MG Tablet PO SCH (09:32)
[2016-08-25] MEDS: levETIRAcetam 250 MG TABLET PO SCH (09:32)
[2016-08-25 11:26] VITALS: BP 170/84
--- NOTE | 2016-08-25 13:41 | Discharge Summary ---
Date of Encounter: 08/25/16 Time of Encounter: 13:00 - Discharge Diagnosis (1) Suicidal ideation Priority: Primary Status: Acute (2) Diabetes Priority: Primary Status: Chronic Qualifiers: Diabetes mellitus type: type 2 Diabetes mellitus complication status: without complication Diabetes mellitus mcc insulin use: with middle or intermediate school principal use Qualified Code(s): E11.9 - Type 2 diabetes mellitus without complications ; Z79.4 - MCC (current) use of insulin (3) Hyperglycemia Priority: Primary Status: Acute (4) Chronic obstructive pulmonary disease Priority: Secondary Status: Chronic Qualifiers: COPD type: chronic bronchitis Chronic bronchitis type: simple Qualified Code(s): J41.0 - Simple chronic bronchitis (5) Cirrhosis Priority: Secondary Status: Chronic Qualifiers: Hepatic cirrhosis type: unspecified hepatic cirrhosis Ascites presence: without ascites Qualified Code(s): K74.60 - Unspecified cirrhosis of liver (6) Depression Priority: Secondary Status: Chronic Qualifiers: Depression Type: unspecified Qualified Code(s): F32.9 - Major depressive disorder, single episode, unspecified (7) Diastolic CHF, chronic Priority: Secondary Status: Chronic - Discharge Medications Home Medications: Cholecalciferol (Vitamin D3) [Vitamin D] 1,000 unit PO DAILY 05/13/15 [History] Insulin ASPART [NovoLOG] 48 - 94 unit SQ TIDWM 05/13/15 [History] Ropinirole HCl [Requip] 2 mg PO HS 05/13/15 [History] Venlafaxine HCl [Effexor Xr] 75 mg PO DAILY 05/13/15 [History] Aspirin Enteric Coated [Aspirin EC] 81 mg PO DAILY 11/13/15 [History] Atorvastatin [Lipitor] 40 mg PO HS 11/13/15 [History] Insulin Glargine,Hum.rec.anlog [Lantus Solostar] 160 unit SQ BID 11/13/15 [ History] Lactulose 45 ml PO TID 11/13/15 [History] Omeprazole [PriLOSEC] 20 mg PO DAILY 11/13/15 [History] Tamsulosin [Flomax] 0.4 mg PO DAILY 11/13/15 [History] Furosemide [Lasix] 40 mg PO DAILY 05/16/16 [History] Lisinopril [Zestril] 2.5 mg PO HS 05/16/16 [History] RisperiDONE [Risperdal] 3 mg PO HS 05/16/16 [History] Rivaroxaban [Xarelto] 10 mg PO DAILY 05/16/16 [History] Sertraline [Zoloft] 50 mg PO DAILY 05/16/16 [History] Spironolactone [Aldactone] 50 mg PO DAILY 05/16/16 [History] Atenolol [Tenormin] 50 mg PO DAILY 05/29/16 [History] LevETIRAcetam [Keppra] 750 mg PO BID 06/07/16 [History] Ipratropium/Albuterol Neb [Duoneb] 3 ml IH Q6HR PRN 08/10/16 [History] HYDROcodone/Acet 5/325 mg [[place] 5-325 mg] 1 tab PO BID PRN #20 tablet 08/19/16 [Rx] Rifaximin [Xifaxan] 200 mg PO BID tablet 08/19/16 [Rx] Allergies/Adverse Reactions: Allergies Iodinated Contrast Media - Oral and Allergy (Verified 08/23/16 16:37) Difficulty Breathing ketorolac [From Toradol] Allergy (Verified 08/23/16 16:37) Nausea Penicillins Allergy (Verified 08/23/16 16:37) Rash butorphanol [From Stadol] Adverse Reaction (Verified 08/23/16 16:37) Nausea celecoxib Adverse Reaction (Verified 08/23/16 16:37) unknown listed on [facility] med rec gabapentin Adverse Reaction (Verified 08/23/16 16:37) unknown [facility] mirtazapine Adverse Reaction (Verified 08/23/16 16:37) unknown listed on [facility] med rec tramadol Adverse Reaction (Verified 08/23/16 16:37) unknown listed on [facility] med rec vancomycin Adverse Reaction (Verified 08/23/16 16:37) unknown listed on [facility] rec Date of admission: 08/25/16 10:35 Primary care physician: PCP NO - Patient Status Disposition: Home, Self-Care Condition: Good Functional capacity at discharge: independent ambulation Overall status at discharge: patient is progressing back to baseline - Discharge Instructions Follow Up With: NO,PCP [Primary Care Provider] - (F/U IN THE [facility]IATRY CLINIC AT THE [facility] SCHEDULED. October 07 at 11:00.) [facility],PCP [Non-Partnered Physician] - 08/27/16 10:15 am - Diet and Activity Activity: resume usual activities as tolerated Diet: diabetic diet, low fat, low cholesterol, low salt diet Interval History: Patient is back with our psychiatry doctor yesterday and he is agreeable to go home today. He has no complaints. Hospital course: Mr. Ramirez is a 66 year old male with past medical history of diastolic heart failure, liver cirrhosis, COPD, coronary artery disease, diabetes mellitus poorly controlled, hypertension, PT of the and multiple prior psychiatric hospitalizations. Presented to our ED because of depression and suicidal thoughts. She was noted to have hyperglycemia but no DKA and she was admitted to our medical units to treat first diabetes. Patient has a difficult to control diabetes due to insulin resistance. He takes is 160 units subcutaneous twice daily. He received IV fluid hydration and Levemir 80 units twice daily as well as a strict diabetic diet. His blood sugars were still in the 200s so insulin was increased to 100 twice a day. Recheck at discharge was 281. DKA. He was tolerating diet and ambulating well. Our psychiatry team cleared patient to go home and go to his already scheduled follow-up appointment in the [place] psychiatry unit. PLAN: With PCP in one week for diabetes control. Accu-Chek before meals and at bedtime. - Time Spent with Patient Total time spent providing and/or coordinating discharge services: - Constitutional Vitals: Temp Pulse Resp BP Pulse Ox 97.9 F 79 16 170/84 98 08/25/16 11:25 08/25/16 11:25 08/25/16 11:25 08/25/16 11:25 08/25/16 11:25 General appearance: Present: cooperative, A&O X 3, pleasant, no acute distress, answers questions appropriately - Eye Eye exam: Present: PERRL, sclera anicteric - ENT ENT exam: Present: mucous membranes moist - Neck Neck exam general surgery: Present: supple, trachea midline. Absent: lymphadenopathy - Respiratory Respiratory exam: Present: CTAB - Cardiovascular Cardiovascular exam: Present: RRR - GI/Abdominal GI/Abdominal exam: Present: normal bowel sounds, soft. Absent: distended, tenderness - Extremities Exam Extremities exam: Absent: pedal edema - Back Exam Back exam: Absent: CVA tenderness (L), CVA tenderness (R) - Neurological Exam Neurological exam: Present: alert, oriented X3, no focal deficits, strengths equal and symetr throughout. Absent: facial droop, speech deficit - Skin Skin exam: Absent: rash
== END 2016-08-25 14:25 | disposition home or self-care (01) | DRG 638 ==
LOC: EMEROO 16:37 → 3ANU 16:37 → SUATTDRO 23:04 → 3ANU 23:13
PROVIDERS: ADMIT Internal Medicine; ATTEND Internal Medicine

== ENCOUNTER 2016-09-11 15:07 | Inpatient (IN) ==
--- NOTE | 2016-09-11 15:16 | Emergency Department Note ---
Disposition Clinical Impression: MJ (acute kidney injury), Dehydration, Hypotension, Altered mental status, Hyperkalemia Disposition: Admitted As Inpatient Referrals: NO,PCP [Non-Partnered Physician] - Forms: ED Satisfaction Letter Altered Mental Status HPI - General Chief Complaint: ED Altered Mental Status Stated Complaint: ams Time Seen by Provider: 09/11/16 15:08 Source: patient Limitations: altered mental status Nursing Notes Reviewed: Yes Vital Signs Reviewed: Yes - History of Present Illness HPI Narrative: Is a 66-year-old male who comes from a [place] [facility] who gives us a limited history of weakness and not getting out of bed for 2 days. He does not have any specific symptoms complaints except for being tired and not feeling well. Denies any cough fever chills nausea vomiting or diarrhea MD complaint: altered mental status Associated symptoms: Reports: malaise. Denies: chest pain, fever, nausea/ vomiting, rash, shortness of breath - Related Data Home Medications Medication Instructions Recorded Confirmed Cholecalciferol (Vitamin D3) 1,000 unit PO DAILY 05/13/15 08/24/16 [Vitamin D] Insulin ASPART [NovoLOG] 48 - 94 unit SQ TIDWM 05/13/15 08/24/16 Ropinirole HCl [Requip] 2 mg PO HS 05/13/15 08/24/16 Venlafaxine HCl [Effexor Xr] 75 mg PO DAILY 05/13/15 08/24/16 Aspirin Enteric Coated [Aspirin EC] 81 mg PO DAILY 11/13/15 08/24/16 Atorvastatin [Lipitor] 40 mg PO HS 11/13/15 08/24/16 Insulin Glargine,Hum.rec.anlog 160 unit SQ BID 11/13/15 08/24/16 [Lantus Solostar] Lactulose 45 ml PO TID 11/13/15 08/24/16 Omeprazole [PriLOSEC] 20 mg PO DAILY 11/13/15 08/24/16 Tamsulosin [Flomax] 0.4 mg PO DAILY 11/13/15 08/24/16 Furosemide [Lasix] 40 mg PO DAILY 05/16/16 08/24/16 Lisinopril [Zestril] 2.5 mg PO HS 05/16/16 08/24/16 RisperiDONE [Risperdal] 3 mg PO HS 05/16/16 08/24/16 Rivaroxaban [Xarelto] 10 mg PO DAILY 05/16/16 08/24/16 Sertraline [Zoloft] 50 mg PO DAILY 05/16/16 08/24/16 Spironolactone [Aldactone] 50 mg PO DAILY 05/16/16 08/24/16 Atenolol [Tenormin] 50 mg PO DAILY 05/29/16 08/24/16 LevETIRAcetam [Keppra] 750 mg PO BID 06/07/16 08/24/16 Ipratropium/Albuterol Neb [Duoneb] 3 ml IH Q6HR PRN 08/10/16 08/24/16 Previous Rx's Medication Instructions Recorded HYDROcodone/Acet 5/325 mg [[place] 1 tab PO BID PRN #20 tablet 08/19/16 5-325 mg] Rifaximin [Xifaxan] 200 mg PO BID tablet 08/19/16 Dicyclomine [Bentyl] 10 mg PO QID PRN #20 capsule 09/01/16 Ondansetron HCl [Zofran] 4 mg PO Q6HR PRN #20 tablet 09/01/16 Allergies Allergy/AdvReac Type Severity Reaction Status Date / Time Iodinated Contrast Media - Allergy Difficulty Verified 08/31/16 21:14 Oral and Breathing ketorolac [From Toradol] Allergy Nausea Verified 08/31/16 21:14 Penicillins Allergy Rash Verified 08/31/16 21:14 butorphanol [From Stadol] AdvReac Nausea Verified 08/31/16 21:14 celecoxib AdvReac unknown Verified 08/31/16 21:14 gabapentin AdvReac unknown Verified 08/31/16 21:14 mirtazapine AdvReac unknown Verified 08/31/16 21:14 tramadol AdvReac unknown Verified 08/31/16 21:14 vancomycin AdvReac unknown Verified 08/31/16 21:14 All systems ED: reviewed and negative except as stated. Constitutional: Reports: weakness Past Medical History - Past Medical History Source: patient, old records reviewed, nursing notes reviewed Medical history: Reports: arthritis, cirrhosis, CHF, COPD, coronary artery disease, diabetes, GERD, hyperlipidemia, hypertension, liver disease, osteoporosis, TIA Surgical history: Reports: appendectomy, cholecystectomy, herniorrhaphy, knee replacement, other Psychiatric history: Reports: ADHD, previous psychiatric hospitalization - Social History Smoking Status: Never smoker Smokeless Tobacco Status: No Alcohol use: Reports: none Drug use: Reports: none Physical Exam - General Limitations: no limitations General appearance: alert, in no apparent distress - Head Head exam: atraumatic, normocephalic, normal inspection - Eye Eye exam: Present: normal appearance, PERRL, EOMI - ENT ENT exam: mucous membranes dry - Neck Neck exam: Present: normal inspection, full ROM, trachea midline - Chest Chest inspection: Present: normal inspection, symmetric chest wall rise - Respiratory Respiratory exam: Present: normal lung sounds bilaterally - Cardiovascular Cardiovascular exam: Present: regular rate, normal rhythm, normal heart sounds - Abdominal Exam Abdominal exam: Present: soft, Non-Tender. Absent: tenderness, distention, guarding, rebound, rigidity - Neurological Exam Neurological exam: Present: alert (somnolent) - Psychiatric Psychiatric exam: Present: flat affect - Skin Skin exam: Present: warm, dry, intact, normal color Course - Reevaluation(s) Reevaluation #1: Patient sitting up in bed now normotensive he is alert to person and place he is unsure of the date or month. He is eating dinner now Time: 18:19 Vital Signs Temperature 97.8 F 09/11/16 15:10 Pulse Rate 72 09/11/16 15:10 Respiratory Rate 16 09/11/16 15:10 Blood Pressure 85/45 09/11/16 15:10 O2 Sat by Pulse Oximetry 92 09/11/16 15:10 Temperature 97.8 F 09/11/16 15:10 Pulse Rate 75 09/11/16 17:53 Respiratory Rate 18 09/11/16 17:34 Blood Pressure 77/44 09/11/16 17:53 O2 Sat by Pulse Oximetry 99 09/11/16 17:53 Oxygen Delivery Oxygen Delivery Nasal Cannula Altered Mental Status - Differential Diagnosis Likely: altered mental status, delirium, dementia, hypoglycemia, hyponatremia, psychiatric disease, subarachnoid hemorrhage - Medical Records Medical records reviewed: Yes I reviewed the patient's medical records. - Lab Data Lab results reviewed: Yes I reviewed the patient's lab results. Result diagrams: 09/11/16 15:56 09/11/16 15:56 Lab Results 04/07/17 04/07/17 04/07/17 Range/Units 15:56 15:56 15:56 WBC 7.4 D (4.3-11.1) K/mcL RBC 4.37 (4.19-5.50) M/mcL Hgb 12.3 L (12.9-16.9) g/dL Hct 37.0 L (37.5-50.1) % MCV 84.7 (83.0-100.0) fL MCH 28.1 (28.0-33.3) pg MCHC 33.2 (31.6-35.5) g/dL RDW 19.9 H (11.5-14.5) % Plt Count 90 L (140-400) K/mcL MPV 11.9 (9.4-12.4) fL Immature Gran % 0.3 (0-4) % Seg Neutrophils % 70.8 % Lymphocytes % 18.2 % Monocytes % 8.2 % Eosinophils % 2.0 % Basophils % 0.5 % Neutrophils # 5.2 (1.6-8.9) K/mcL Lymphocytes # 1.4 (0.6-4.6) K/mcL Monocytes # 0.6 (0.0-1.3) K/mcL Eosinophils # 0.2 (0.0-0.6) K/mcL Basophils # 0.0 (0.0-0.2) K/mcL PT 18.0 H (9.4-12.1) Seconds INR 1.6 APTT 34.9 (26.0-36.0) Seconds Sodium 130 L (136-145) mEq/L Potassium 6.1 H (3.5-4.5) mEq/L Chloride 96 L (98-109) mEq/L Carbon Dioxide 18 L (19-29) mEq/L BUN 81 H (8-26) mg/dL Creatinine 5.01 H (0.72-1.25) mg/dL Est GFR ( Amer) 14 L (> 60) Est GFR (Non-Af Amer) 12 L (> 60) BUN/Creatinine Ratio 16 (6-26) Glucose 273 H (70-99) mg/dL Calculated Osmolality 304 H (280-300) Lactic Acid (0.5-2.2) mmol/L Calcium 10.0 (8.6-10.8) mg/dL Total Bilirubin 0.6 (0.2-1.2) mg/dL Direct Bilirubin 0.3 (0.0-0.5) mg/dL Indirect Bilirubin 0.3 (0.0-1.2) mg/dL AST 71 H (5-34) Units/L ALT 83 H (0-55) Units/L Alkaline Phosphatase 184 H (38-126) Units/L Ammonia (18-72) mcmol/L Troponin I (0-0.03) ng/mL Serum Total Protein 8.2 (6.0-8.3) g/dL Albumin 3.4 L (3.5-5.0) g/dL Globulin 4.8 H (2.4-3.5) g/dL Albumin/Globulin Ratio 0.7 L (1.1-2.2) TSH 4.157 (0.350-4.840) mcIU/mL Urine Color (Yellow) Urine Clarity (Clear) Urine pH (5.0-8.0) pH Units Ur Specific [place] (1.010-1.025) Urine Protein (Neg-Trace) mg/dL Urine Glucose (UA) (Normal) mg/dL Urine Ketones (Negative) mg/dL Urine Blood (Negative) Urine Nitrite (Negative) Urine Bilirubin (Negative) Urine Urobilinogen (Normal) mg/dL Ur Leukocyte Esterase (Negative) Ur Culture Indicated? (NO) Urine Opiates Screen (Rjpysh=904) ng/mL Ur Barbiturates Screen (Ykgfuz=443) ng/mL Ur Phencyclidine Scrn (Cutoff=25) ng/mL Ur Amphetamines Screen (Npqaod=2471) ng/mL U Benzodiazepines Scrn (Yrpems=263) ng/mL Crossnore (0.6-1.2) mEq/L Urine Cocaine Screen (Cutoff= 300) ng/mL U Marijuana (THC) Screen (Cutoff = 50) ng/mL Ethyl Alcohol < 10 (0-10) mg/dL Specimen Rejected 09/11/16 09/11/16 09/11/16 Range/Units 15:56 15:56 15:56 WBC (4.3-11.1) K/mcL RBC (4.19-5.50) M/mcL Hgb (12.9-16.9) g/dL Hct (37.5-50.1) % MCV (83.0-100.0) fL MCH (28.0-33.3) pg MCHC (31.6-35.5) g/dL RDW (11.5-14.5) % Plt Count (140-400) K/mcL MPV (9.4-12.4) fL Immature Gran % (0-4) % Seg Neutrophils % % Lymphocytes % % Monocytes % % Eosinophils % % Basophils % % Neutrophils # (1.6-8.9) K/mcL Lymphocytes # (0.6-4.6) K/mcL Monocytes # (0.0-1.3) K/mcL Eosinophils # (0.0-0.6) K/mcL Basophils # (0.0-0.2) K/mcL PT (9.4-12.1) Seconds INR APTT (26.0-36.0) Seconds Sodium (136-145) mEq/L Potassium (3.5-4.5) mEq/L Chloride (98-109) mEq/L Carbon Dioxide (19-29) mEq/L BUN (8-26) mg/dL Creatinine (0.72-1.25) mg/dL Est GFR ( Amer) (> 60) Est GFR (Non-Af Amer) (> 60) BUN/Creatinine Ratio (6-26) Glucose (70-99) mg/dL Calculated Osmolality (280-300) Lactic Acid (0.5-2.2) mmol/L Calcium (8.6-10.8) mg/dL Total Bilirubin (0.2-1.2) mg/dL Direct Bilirubin (0.0-0.5) mg/dL Indirect Bilirubin (0.0-1.2) mg/dL AST (5-34) Units/L ALT (0-55) Units/L Alkaline Phosphatase (38-126) Units/L Ammonia 28 (18-72) mcmol/L Troponin I 0.01 (0-0.03) ng/mL Serum Total Protein (6.0-8.3) g/dL Albumin (3.5-5.0) g/dL Globulin (2.4-3.5) g/dL Albumin/Globulin Ratio (1.1-2.2) TSH (0.350-4.840) mcIU/mL Urine Color (Yellow) Urine Clarity (Clear) Urine pH (5.0-8.0) pH Units Ur Specific [place] (1.010-1.025) Urine Protein (Neg-Trace) mg/dL Urine Glucose (UA) (Normal) mg/dL Urine Ketones (Negative) mg/dL Urine Blood (Negative) Urine Nitrite (Negative) Urine Bilirubin (Negative) Urine Urobilinogen (Normal) mg/dL Ur Leukocyte Esterase (Negative) Ur Culture Indicated? (NO) Urine Opiates Screen (Hvodfl=987) ng/mL Ur Barbiturates Screen (Agcgpe=108) ng/mL Ur Phencyclidine Scrn (Cutoff=25) ng/mL Ur Amphetamines Screen (Yzjnwt=0355) ng/mL U Benzodiazepines Scrn (Kwzknp=172) ng/mL Crossnore (0.6-1.2) mEq/L Urine Cocaine Screen (Cutoff= 300) ng/mL U Marijuana (THC) Screen (Cutoff = 50) ng/mL Ethyl Alcohol (0-10) mg/dL Specimen Rejected Hemolyzed 09/11/16 09/11/16 09/11/16 Range/Units 15:57 16:44 16:45 WBC (4.3-11.1) K/mcL RBC (4.19-5.50) M/mcL Hgb (12.9-16.9) g/dL Hct (37.5-50.1) % MCV (83.0-100.0) fL MCH (28.0-33.3) pg MCHC (31.6-35.5) g/dL RDW (11.5-14.5) % Plt Count (140-400) K/mcL MPV (9.4-12.4) fL Immature Gran % (0-4) % Seg Neutrophils % % Lymphocytes % % Monocytes % % Eosinophils % % Basophils % % Neutrophils # (1.6-8.9) K/mcL Lymphocytes # (0.6-4.6) K/mcL Monocytes # (0.0-1.3) K/mcL Eosinophils # (0.0-0.6) K/mcL Basophils # (0.0-0.2) K/mcL PT (9.4-12.1) Seconds INR APTT (26.0-36.0) Seconds Sodium (136-145) mEq/L Potassium (3.5-4.5) mEq/L Chloride (98-109) mEq/L Carbon Dioxide (19-29) mEq/L BUN (8-26) mg/dL Creatinine (0.72-1.25) mg/dL Est GFR ( Amer) (> 60) Est GFR (Non-Af Amer) (> 60) BUN/Creatinine Ratio (6-26) Glucose (70-99) mg/dL Calculated Osmolality (280-300) Lactic Acid (0.5-2.2) mmol/L Calcium (8.6-10.8) mg/dL Total Bilirubin (0.2-1.2) mg/dL Direct Bilirubin (0.0-0.5) mg/dL Indirect Bilirubin (0.0-1.2) mg/dL AST (5-34) Units/L ALT (0-55) Units/L Alkaline Phosphatase (38-126) Units/L Ammonia (18-72) mcmol/L Troponin I (0-0.03) ng/mL Serum Total Protein (6.0-8.3) g/dL Albumin (3.5-5.0) g/dL Globulin (2.4-3.5) g/dL Albumin/Globulin Ratio (1.1-2.2) TSH (0.350-4.840) mcIU/mL Urine Color Yellow (Yellow) Urine Clarity Clear (Clear) Urine pH 5.0 (5.0-8.0) pH Units Ur Specific [place] 1.023 (1.010-1.025) Urine Protein Negative (Neg-Trace) mg/dL Urine Glucose (UA) >=1000 H (Normal) mg/dL Urine Ketones Negative (Negative) mg/dL Urine Blood Negative (Negative) Urine Nitrite Negative (Negative) Urine Bilirubin Small H (Negative) Urine Urobilinogen Normal (Normal) mg/dL Ur Leukocyte Esterase Negative (Negative) Ur Culture Indicated? NO (NO) Urine Opiates Screen Positive H (Xqyvve=437) ng/mL Ur Barbiturates Screen Negative (Itaabj=012) ng/mL Ur Phencyclidine Scrn Negative (Cutoff=25) ng/mL Ur Amphetamines Screen Negative (Crgpvn=8090) ng/mL U Benzodiazepines Scrn Negative (Kkqpma=574) ng/mL [place] < 0.1 L (0.6-1.2) mEq/L Urine Cocaine Screen Negative (Cutoff= 300) ng/mL U Marijuana (THC) Screen Negative (Cutoff = 50) ng/mL Ethyl Alcohol (0-10) mg/dL Specimen Rejected 09/11/16 Range/Units 16:45 WBC (4.3-11.1) K/mcL RBC (4.19-5.50) M/mcL Hgb (12.9-16.9) g/dL Hct (37.5-50.1) % MCV (83.0-100.0) fL MCH (28.0-33.3) pg MCHC (31.6-35.5) g/dL RDW (11.5-14.5) % Plt Count (140-400) K/mcL MPV (9.4-12.4) fL Immature Gran % (0-4) % Seg Neutrophils % % Lymphocytes % % Monocytes % % Eosinophils % % Basophils % % Neutrophils # (1.6-8.9) K/mcL Lymphocytes # (0.6-4.6) K/mcL Monocytes # (0.0-1.3) K/mcL Eosinophils # (0.0-0.6) K/mcL Basophils # (0.0-0.2) K/mcL PT (9.4-12.1) Seconds INR APTT (26.0-36.0) Seconds Sodium (136-145) mEq/L Potassium (3.5-4.5) mEq/L Chloride (98-109) mEq/L Carbon Dioxide (19-29) mEq/L BUN (8-26) mg/dL Creatinine (0.72-1.25) mg/dL Est GFR ( Amer) (> 60) Est GFR (Non-Af Amer) (> 60) BUN/Creatinine Ratio (6-26) Glucose (70-99) mg/dL Calculated Osmolality (280-300) Lactic Acid 1.8 (0.5-2.2) mmol/L Calcium (8.6-10.8) mg/dL Total Bilirubin (0.2-1.2) mg/dL Direct Bilirubin (0.0-0.5) mg/dL Indirect Bilirubin (0.0-1.2) mg/dL AST (5-34) Units/L ALT (0-55) Units/L Alkaline Phosphatase (38-126) Units/L Ammonia (18-72) mcmol/L Troponin I (0-0.03) ng/mL Serum Total Protein (6.0-8.3) g/dL Albumin (3.5-5.0) g/dL Globulin (2.4-3.5) g/dL Albumin/Globulin Ratio (1.1-2.2) TSH (0.350-4.840) mcIU/mL Urine Color (Yellow) Urine Clarity (Clear) Urine pH (5.0-8.0) pH Units Ur Specific [place] (1.010-1.025) Urine Protein (Neg-Trace) mg/dL Urine Glucose (UA) (Normal) mg/dL Urine Ketones (Negative) mg/dL Urine Blood (Negative) Urine Nitrite (Negative) Urine Bilirubin (Negative) Urine Urobilinogen (Normal) mg/dL Ur Leukocyte Esterase (Negative) Ur Culture Indicated? (NO) Urine Opiates Screen (Ajsuey=899) ng/mL Ur Barbiturates Screen (Rsxwlj=725) ng/mL Ur Phencyclidine Scrn (Cutoff=25) ng/mL Ur Amphetamines Screen (Ovrpam=0572) ng/mL U Benzodiazepines Scrn (Vupchl=476) ng/mL Crossnore (0.6-1.2) mEq/L Urine Cocaine Screen (Cutoff= 300) ng/mL U Marijuana (THC) Screen (Cutoff = 50) ng/mL Ethyl Alcohol (0-10) mg/dL Specimen Rejected - Radiology Data Radiology results reviewed: Yes I reviewed the patient's radiology results. - EKG Data EKG attestation: Yes I reviewed and interpreted this EKG. TPA Checklist - LKW: 3-4.5 hrs Add. Contraindications Patient/family understanding: The patient/family members have been counseled and understood the risk, benefit , and alternatives of treatment.
[2016-09-11] MEDS: 0.9 % Sodium Chloride 1,000 ML IVC SCH ×2 (15:41→17:21)
[2016-09-11 16:06] LABS: Basophils % 0.5 %; Eosinophils # 0.2 K/mcL (0.0-0.6); Hemoglobin 12.3 g/dL (12.9-16.9); Immature Granulocytes % 0.3 % (0-4); Lymphocytes # 1.4 K/mcL (0.6-4.6); Lymphocytes % 18.2 %; Mean Corpuscular HGB Conc 33.2 g/dL (31.6-35.5); Mean Corpuscular Hemoglobin 28.1 pg (28.0-33.3); Mean Corpuscular Volume 84.7 fL (83.0-100.0); Mean Platelet Volume 11.9 fL (9.4-12.4); Monocytes # 0.6 K/mcL (0.0-1.3); Monocytes % 8.2 %; Neutrophils # 5.2 K/mcL (1.6-8.9); Red Blood Count 4.37 M/mcL (4.19-5.50); Red Cell Distribution Width 19.9 % (11.5-14.5); Segmented Neutrophils % 70.8 %
[2016-09-11 16:08] LABS: Platelet Count 90 K/mcL (140-400)
[2016-09-11 16:13] LABS: INR 1.6
[2016-09-11 16:15] LABS: Activated Partial Thrombo Time 34.9 Seconds (26.0-36.0)
[2016-09-11 17:06] LABS: Amphetamine Screen,Urine Negative ng/mL (Cutoff=1000); Barbiturate Screen,Urine Negative ng/mL (Cutoff=200); Benzodiazepines Screen,Urine Negative ng/mL (Cutoff=200); Cannabinoid Screen,Urine Negative ng/mL (Cutoff = 50); Cocaine Screen,Urine Negative ng/mL (Cutoff= 300); Opiate Screen,Urine Positive ng/mL (Cutoff=300); Phencyclidine Screen,Urine Negative ng/mL (Cutoff=25)
[2016-09-11 17:08] LABS: Alanine Aminotransferase 83 Units/L (0-55); Albumin 3.4 g/dL (3.5-5.0); Albumin/Globulin Ratio 0.7 (1.1-2.2); Alkaline Phosphatase 184 Units/L (38-126); Aspartate Amino Transferase 71 Units/L (5-34); BUN/Creatinine Ratio 16 (6-26); Bilirubin,Direct 0.3 mg/dL (0.0-0.5); Bilirubin,Indirect 0.3 mg/dL (0.0-1.2); Bilirubin,Total 0.6 mg/dL (0.2-1.2); Carbon Dioxide 18 mEq/L (19-29); Chloride 96 mEq/L (98-109); Globulin 4.8 g/dL (2.4-3.5); Glucose 273 mg/dL (70-99); Osmolality,Calculated 304 (280-300); Potassium 6.1 mEq/L (3.5-4.5); Sodium 130 mEq/L (136-145); Total Protein 8.2 g/dL (6.0-8.3); eGFR For African Americans 14 (> 60); eGFR For Non-African Americans 12 (> 60)
[2016-09-11 17:09] LABS: Blood Urea Nitrogen 81 mg/dL (8-26); Ethanol < 10 mg/dL (0-10)
[2016-09-11] MEDS ORDERED: Calcium Gluconate 1,000 MG in D5% in Water 100 ML IVPB ONE (17:24)
[2016-09-11] MEDS ORDERED: Sodium Bicarbonate 50 MEQ/50 ML VIAL IVP ONE (17:25)
[2016-09-11] MEDS ORDERED: Albuterol 2.5 MG/3 ML NEBULIZER IH ONE (17:26)
[2016-09-11 17:28] LABS: Thyroid Stimulating Hormone 4.157 mcIU/mL (0.350-4.840)
[2016-09-11] MEDS ORDERED: Insulin Human Regular 10 UNIT in 0.9 % Sodium Chloride 10 ML IV ONE (17:41)
[2016-09-11] MEDS ORDERED: *HR* Dextrose 50 % in Water (Syg) 50 ML SYRINGE IVP ONE (17:42)
[2016-09-11 17:44] LABS: Bilirubin,Urine Small (Negative); Blood,Urine Negative (Negative); Clarity,Urine Clear (Clear); Color,Urine Yellow (Yellow); Glucose,Urine (UA) >=1000 mg/dL (Normal); Ketones,Urine Negative (Negative); Protein,Urine Negative (Neg-Trace); Specific Gravity,Urine 1.023 (1.010-1.025); Urobilinogen,Urine Normal (Normal)
[2016-09-11 17:45] LABS: Leukocyte Esterase,Urine Negative (Negative); Nitrite,Urine Negative (Negative)
[2016-09-11] MEDS: 0.9 % Sodium Chloride 1,000 ML IVC ONE ×2 (17:46→18:54)
[2016-09-11] MEDS ORDERED: 0.9 % Sodium Chloride 1,000 ML IVC SCH (19:15)
--- NOTE | 2016-09-11 21:34 | Internal Med History&Physical ---
Date of Encounter: 09/11/16 Time of Encounter: 21:31 Assessment and Plan (1) MJ (acute kidney injury) Current visit: Yes Status: Acute contribution of poor po intake and dehydration iv hydration and nephrology consult (2) Altered mental status Current visit: Yes Status: Acute underlying psych issues Qualifiers: Altered mental status type: unspecified Qualified Code(s): R41.82 - Altered mental status, unspecified (3) Dehydration Current visit: Yes Status: Acute poor po intake (4) Hyperkalemia Current visit: Yes Status: Acute due to renal failure treated in er (5) Diabetes mellitus with hyperglycemia Current visit: No Status: Chronic known to be poorly controlled resume home meds and sliding scale Qualifiers: Diabetes mellitus type: type 2 Diabetes mellitus residential insulin use: with termite renewal inspector use Qualified Code(s): E11.65 - Type 2 diabetes mellitus with hyperglycemia; Z79.4 - exterminator (current) use of insulin (6) HTN (hypertension) Current visit: No Status: Chronic well controlled Qualifiers: Hypertension type: essential hypertension Qualified Code(s): I10 - Essential (primary) hypertension (7) Hyperglycemia Current visit: No Status: Acute uncontrolled dm (8) Cirrhosis Current visit: No Status: Chronic chronic Qualifiers: Hepatic cirrhosis type: unspecified hepatic cirrhosis Ascites presence: without ascites Qualified Code(s): K74.60 - Unspecified cirrhosis of liver (9) Generalized weakness Current visit: Yes Status: Acute generalized Internal Medicine - H&P: HPI Chief complaint: renal failure, poor po intake Admitted From: Emergency Dept Plans for Post Hospital Care: Home History of present illness: Mr. Ramirez is a 66 year old male Patient with history of diabetes, pancytopenia, COPD, hypertension, TIA, high cholesterol, PTSD with anxiety and depression, history of suicidal ideation, CAD and the cirrhosis patient lives in a fdc was sent into the emergency room due to generalized weakness , poor by mouth intake and not getting out of bed for the last 2 days patient is awake, says he feels very tired. In the ER creatinine has gotten worse to about 5.1 potassium 6. He has underlying renal failure creatinine about 3 in august and followed by nephrology . No specific symptom from the patient Past Med Surg Social Fam HX - Past Medical History Medical history: arthritis, cirrhosis, CHF, COPD, coronary artery disease, diabetes, GERD, hyperlipidemia, hypertension, liver disease, osteoporosis, TIA Psychiatric history: ADHD, previous psychiatric hospitalization - Past Surgical History Surgical History: appendectomy, cholecystectomy, herniorrhaphy, knee replacement , other - Social History Smoking Status: Never smoker Smokeless Tobacco Status: No Alcohol use: none Drug use: none - Family History Mother Living Status: Hx Family Cancer: Yes Internal Medicine - H&P: Meds Cholecalciferol (Vitamin D3) [Vitamin D] 1,000 unit PO DAILY 05/13/15 [History] Insulin ASPART [NovoLOG] 48 - 94 unit SQ TIDWM 05/13/15 [History] Ropinirole HCl [Requip] 2 mg PO HS 05/13/15 [History] Venlafaxine HCl [Effexor Xr] 75 mg PO DAILY 05/13/15 [History] Aspirin Enteric Coated [Aspirin EC] 81 mg PO DAILY 11/13/15 [History] Atorvastatin [Lipitor] 40 mg PO HS 11/13/15 [History] Insulin Glargine,Hum.rec.anlog [Lantus Solostar] 160 unit SQ BID 11/13/15 [ History] Lactulose 45 ml PO TID 11/13/15 [History] Omeprazole [PriLOSEC] 20 mg PO DAILY 11/13/15 [History] Tamsulosin [Flomax] 0.4 mg PO DAILY 11/13/15 [History] Furosemide [Lasix] 40 mg PO DAILY 05/16/16 [History] Lisinopril [Zestril] 2.5 mg PO HS 05/16/16 [History] RisperiDONE [Risperdal] 3 mg PO HS 05/16/16 [History] Rivaroxaban [Xarelto] 10 mg PO DAILY 05/16/16 [History] Sertraline [Zoloft] 50 mg PO DAILY 05/16/16 [History] Spironolactone [Aldactone] 50 mg PO DAILY 05/16/16 [History] Atenolol [Tenormin] 50 mg PO DAILY 05/29/16 [History] LevETIRAcetam [Keppra] 750 mg PO BID 06/07/16 [History] Ipratropium/Albuterol Neb [Duoneb] 3 ml IH Q6HR PRN 08/10/16 [History] HYDROcodone/Acet 5/325 mg [[place] 5-325 mg] 1 tab PO BID PRN #20 tablet 08/19/16 [Rx] Rifaximin [Xifaxan] 200 mg PO BID tablet 08/19/16 [Rx] Dicyclomine [Bentyl] 10 mg PO QID PRN #20 capsule 09/01/16 [Rx] Ondansetron HCl [Zofran] 4 mg PO Q6HR PRN #20 tablet 09/01/16 [Rx] Allergies Iodinated Contrast Media - Oral and Allergy (Verified 08/31/16 21:14) Difficulty Breathing ketorolac [From Toradol] Allergy (Verified 08/31/16 21:14) Nausea Penicillins Allergy (Verified 08/31/16 21:14) Rash butorphanol [From Stadol] Adverse Reaction (Verified 08/31/16 21:14) Nausea celecoxib Adverse Reaction (Verified 08/31/16 21:14) unknown listed on [facility] med rec gabapentin Adverse Reaction (Verified 08/31/16 21:14) unknown [facility] mirtazapine Adverse Reaction (Verified 08/31/16 21:14) [facility] tramadol Adverse Reaction (Verified 08/31/16 21:14) [facility] vancomycin Adverse Reaction (Verified 08/31/16 21:14) unknown listed on [facility] rec All Systems PM: A 10-system review of systems was performed and is negative for pertinent findings except as documented above in the HPI. - Constitutional Constitutional: anorexia, fatigue, malaise - EENT Eyes: no change in vision, no discharge, no pain, no photophobia Ears: no ear discharge, no ear pain, no tinnitus Nose, mouth and throat: no dysphagia, no nasal discharge, no neck pain, no sore throat - Cardiovascular Cardiovascular ROS IM: no chest pain, no diaphoresis, no dyspnea, no lightheadedness, no palpitations, no syncope - Respiratory Respiratory: no cough, no dyspnea, no wheezing, no excessive phlegm production - Gastrointestinal Gastrointestinal: no abdominal pain, no diarrhea, no hematemesis, no hematochezia, no melena, no nausea, no vomiting - Musculoskeletal Musculoskeletal ROS IM: no numbness, no tingling - Integumentary Integumentary IM: no rash, no unusual bruising - Constitutional Vitals: Temp Pulse Resp BP Pulse Ox 97.8 F 80 16 104/57 96 09/11/16 15:10 09/11/16 21:00 09/11/16 21:09 09/11/16 21:09 09/11/16 21:00 General appearance: Present: A&O X 3 - Eye Eye exam: Present: PERRL, conjuntiva pink, sclera anicteric Pupils: Present: PERRL - Neck Neck exam general surgery: Present: supple, trachea midline. Absent: lymphadenopathy - Respiratory Respiratory exam: Present: CTAB. Absent: accessory muscle use, rales, rhonchi, wheezes - Cardiovascular Cardiovascular exam: Present: RRR, +S1, +S2. Absent: diastolic murmur, gallop, rubs, systolic murmur - GI/Abdominal GI/Abdominal exam: Present: normal bowel sounds, soft, no peritoneal signs. Absent: distended, tenderness Internal Med - H&P Results - Labs CBC & Chem 7: 09/11/16 15:56 09/11/16 15:56
[2016-09-11] MEDS ORDERED: Naloxone 0.4 MG/ML INJ IVP PRN (21:43)
[2016-09-11] MEDS ORDERED: Ipratropium/Albuterol Neb 3 ML IH PRN (21:46)
[2016-09-11] MEDS ORDERED: Ondansetron ODT 4 MG TAB.RAPDIS PO PRN (21:46)
[2016-09-11] MEDS ORDERED: Dextrose Gel 15 GM PO PRN ×2 (21:56)
[2016-09-11] MEDS ORDERED: *HR* Dextrose 50 % in Water (Syg) 50 ML SYRINGE IVP PRN (21:56)
[2016-09-11] MEDS ORDERED: D5% in Water 1,000 ML IVC PRN (21:56)
[2016-09-12] MEDS: *HR* HYDROcodone/Acet 5/325 mg TABLET PO PRN ×3 (03:16→11:48)
[2016-09-12] MEDS: 0.9 % Sodium Chloride 1,000 ML IVC SCH ×3 (03:17→17:25)
[2016-09-12] MEDS ORDERED: *HR* Enoxaparin 40 MG/0.4 ML SYRINGE SQ SCH (06:00)
[2016-09-12 07:04] LABS: Albumin/Globulin Ratio 0.8 (1.1-2.2); Bilirubin,Total 0.5 mg/dL (0.2-1.2); Calcium 8.9 mg/dL (8.6-10.8); Magnesium 1.8 mg/dL (1.6-2.6)
[2016-09-12 07:07] LABS: Potassium 4.7 mEq/L (3.5-4.5)
[2016-09-12 07:31] LABS: Basophils % 0.8 %; Eosinophils # 0.2 K/mcL (0.0-0.6); Eosinophils % 3.9 %; Hematocrit 32.5 % (37.5-50.1); Hemoglobin 10.9 g/dL (12.9-16.9); Immature Granulocytes % 1.9 % (0-4); Lymphocytes # 1.8 K/mcL (0.6-4.6); Lymphocytes % 34.3 %; Mean Corpuscular HGB Conc 33.5 g/dL (31.6-35.5); Mean Corpuscular Hemoglobin 27.5 pg (28.0-33.3); Mean Corpuscular Volume 81.9 fL (83.0-100.0); Monocytes # 0.6 K/mcL (0.0-1.3); Monocytes % 11.3 %; Red Blood Count 3.97 M/mcL (4.19-5.50); Red Cell Distribution Width 19.5 % (11.5-14.5); Segmented Neutrophils % 47.8 %
[2016-09-12 07:35] LABS: Hemoglobin A1C 10.3 %
[2016-09-12 08:09] LABS: Neutrophils # 2.5 K/mcL (1.6-8.9); Platelet Count 64 K/mcL (140-400)
[2016-09-12 08:11] LABS: Anisocytosis 1+ (Not Present); Platelet Estimate Decreased (Normal)
[2016-09-12] MEDS ORDERED: INSULIN GLARGINE HUM REC ANLOG SQ SCH (09:00)
[2016-09-12] MEDS ORDERED: Insulin DETEMIR 100 UNIT/ML X5UNITS SQ SCH ×2 (09:00)
[2016-09-12] MEDS ORDERED: [UNRECOGNIZED DRUG - OTHER] SQ SCH (09:00)
[2016-09-12] MEDS: Lactulose Oral Soln 20 GM/30 ML UDC PO SCH ×3 (09:57→22:38)
[2016-09-12] MEDS: Cholecalciferol (D-3) 1,000 UNIT TABLET PO SCH (09:58)
[2016-09-12] MEDS: levETIRAcetam 250 MG TABLET PO SCH ×2 (09:58→22:38)
[2016-09-12] MEDS: Insulin LISPRO 300 UNITS/3 ML VIAL SQ SCH ×4 (09:58→22:37)
[2016-09-12] MEDS: Aspirin Enteric Coated 81 MG Tablet PO SCH (09:58)
[2016-09-12] MEDS: *HR* Rivaroxaban 10 MG TABLET PO SCH (09:58)
[2016-09-12] MEDS: Venlafaxine XR (24 HR) 75 MG CAP.ER.24H PO SCH (09:58)
[2016-09-12] MEDS: Insulin DETEMIR 100 UNIT/ML X5UNITS SQ SCH ×3 (12:02→22:37)
[2016-09-12] MEDS: *HR* HYDROcodone/Acet 7.5/325 mg TABLET PO PRN ×2 (15:23→23:59)
[2016-09-12] MEDS ORDERED: Insulin LISPRO 300 UNITS/3 ML VIAL SQ SCH (21:00)
[2016-09-12] MEDS: RisperiDAL 3 MG TABLET PO SCH (22:39)
[2016-09-12] MEDS: rOPINIRole 1 MG TABLET PO SCH (22:39)
[2016-09-13] MEDS: 0.9 % Sodium Chloride 1,000 ML IVC SCH ×3 (01:10→21:01)
[2016-09-13] MEDS: Venlafaxine XR (24 HR) 75 MG CAP.ER.24H PO SCH (09:03)
[2016-09-13] MEDS: *HR* Rivaroxaban 10 MG TABLET PO SCH (09:03)
[2016-09-13] MEDS: Insulin DETEMIR 100 UNIT/ML X5UNITS SQ SCH ×4 (09:03→20:48)
[2016-09-13] MEDS: Insulin LISPRO 300 UNITS/3 ML VIAL SQ SCH ×4 (09:03→20:49)
[2016-09-13] MEDS: Aspirin Enteric Coated 81 MG Tablet PO SCH (09:04)
[2016-09-13] MEDS: *HR* HYDROcodone/Acet 7.5/325 mg TABLET PO PRN ×2 (09:04→17:15)
[2016-09-13] MEDS: Cholecalciferol (D-3) 1,000 UNIT TABLET PO SCH (09:04)
[2016-09-13] MEDS: levETIRAcetam 250 MG TABLET PO SCH ×2 (09:04→20:47)
[2016-09-13] MEDS: Lactulose Oral Soln 20 GM/30 ML UDC PO SCH ×3 (09:05→20:47)
--- NOTE | 2016-09-13 12:04 | Internal Med Progress Note ---
Date of Encounter: 09/13/16 Time of Encounter: 11:53 - Assessment and plan (1) Acute kidney injury Status: Acute Assessment and plan: serum creatinine noted to be improving; likely related to dehydration and poor oral intake; continue IV hydration and monitor urine output and serum creatinine ; (2) Hyperkalemia Status: Acute Assessment and plan: due to acute renal failure; improved but noted to be increasing again; will hold Spironolactone and give a dose of Kayexalate; continue Telemetry and monitor electrolytes closely; (3) Acute encephalopathy Status: Resolved (4) BPH (benign prostatic hyperplasia) Status: Chronic Qualifiers: Prostatic enlargement morphology: unspecified morphology Lower urinary tract symptom presence: presence of symptoms unspecified Qualified Code(s): N40.0 - Benign prostatic hyperplasia without lower urinary tract symptoms (5) Anxiety Status: Chronic (6) PTSD (post-traumatic stress disorder) Status: Chronic (7) DM2 (diabetes mellitus, type 2) Status: Chronic Assessment and plan: uncontrolled even as outpatient; continue Accucheck blood glucose monitoring with basal bolus insulin regimen; will increase basal insulin dose as blood sugars continue to be high; diabetic diet; Qualifiers: Diabetes mellitus complication status: with hyperglycemia Diabetes mellitus usp insulin use: with termite control servicer use Qualified Code(s): E11.65 - Type 2 diabetes mellitus with hyperglycemia; Z79.4 - FDC (current) use of insulin (8) Chronic obstructive pulmonary disease Status: Chronic Qualifiers: COPD type: chronic bronchitis Chronic bronchitis type: simple Qualified Code(s): J41.0 - Simple chronic bronchitis (9) Essential hypertension Status: Chronic Assessment and plan: BP well-controlled; resume home medications; (10) Hyperlipidemia Status: Chronic Qualifiers: Hyperlipidemia type: mixed hyperlipidemia Qualified Code(s): E78.2 - Mixed hyperlipidemia (11) Depression Status: Chronic Qualifiers: Depression Type: unspecified Qualified Code(s): F32.9 - Major depressive disorder, single episode, unspecified (12) CHF (congestive heart failure) Status: Chronic Qualifiers: Congestive heart failure type: diastolic Congestive heart failure chronicity: chronic Qualified Code(s): I50.32 - Chronic diastolic (congestive ) heart failure (13) CAD (coronary artery disease) Status: Chronic Qualifiers: Coronary Disease-Associated Artery/Lesion type: [place] artery [place] vs. transplanted heart: [place] heart Associated angina: without angina Qualified Code(s): I25.10 - Atherosclerotic heart disease of [place] coronary artery without angina pectoris (14) Cirrhosis of liver Status: Chronic Qualifiers: Hepatic cirrhosis type: unspecified hepatic cirrhosis Ascites presence: without ascites Qualified Code(s): K74.60 - Unspecified cirrhosis of liver - Subjective Interval history: Reports no chest pain, shortness of breath or palpitations. Labs have not been drawn this morning as he did not like being disturbing his sleep. Also reports new onset of urinary incontinence. Mendez catheter was removed last night as he reported pain. - Constitutional Vitals: Temp Pulse Resp BP Pulse Ox 98.1 F 82 16 110/73 94 09/13/16 11:13 09/13/16 11:13 09/13/16 11:13 09/13/16 11:13 09/13/16 11:13 General appearance: Present: A&O X 3, answers questions appropriately - Respiratory Respiratory exam: Present: CTAB. Absent: accessory muscle use, rales, rhonchi, wheezes - Cardiovascular Cardiovascular exam: Present: RRR, +S1, +S2. Absent: diastolic murmur, gallop, rubs, systolic murmur - GI/Abdominal GI/Abdominal exam: Present: normal bowel sounds, soft, no peritoneal signs. Absent: distended, tenderness - Extremities Exam Extremities exam: Present: pedal edema, warm, radial pulses palpable and symetrical. Absent: calf tenderness, cyanotic Internal Medicine: Result - Labs CBC & Chem 7: 09/12/16 06:23 09/14/16 04:25 - ABG Interpretation ABG results: PT/INR, D-dimer PT 18.0 Seconds (9.4-12.1) H 09/11/16 15:56 Consult Discharge Plan - Plan Instructions: Diabetes Mellitus Type 2 in Adults (DC) [facility]errals: [facility] [Primary Care Provider] -
[2016-09-13 13:48] LABS: Calcium 8.8 mg/dL (8.6-10.8)
[2016-09-13] MEDS: rOPINIRole 1 MG TABLET PO SCH (20:47)
[2016-09-13] MEDS: RisperiDAL 3 MG TABLET PO SCH (20:47)
[2016-09-14] MEDS: *HR* HYDROcodone/Acet 7.5/325 mg TABLET PO PRN (01:07)
[2016-09-14] MEDS: *HR* HYDROcodone/Acet 5/325 mg TABLET PO PRN ×3 (04:37→17:47)
[2016-09-14 05:37] LABS: Calcium 9.1 mg/dL (8.6-10.8); Potassium 4.9 mEq/L (3.5-4.5)
[2016-09-14] MEDS: 0.9 % Sodium Chloride 1,000 ML IVC SCH (06:44)
[2016-09-14] MEDS: Insulin LISPRO 300 UNITS/3 ML VIAL SQ SCH ×2 (07:55→11:51)
[2016-09-14] MEDS: Venlafaxine XR (24 HR) 75 MG CAP.ER.24H PO SCH (08:34)
[2016-09-14] MEDS: Cholecalciferol (D-3) 1,000 UNIT TABLET PO SCH (08:34)
[2016-09-14] MEDS: levETIRAcetam 250 MG TABLET PO SCH (08:34)
[2016-09-14] MEDS: Aspirin Enteric Coated 81 MG Tablet PO SCH (08:34)
[2016-09-14] MEDS: *HR* Rivaroxaban 10 MG TABLET PO SCH (08:34)
[2016-09-14] MEDS: Lactulose Oral Soln 20 GM/30 ML UDC PO SCH ×2 (08:35→15:22)
[2016-09-14] MEDS: Insulin DETEMIR 100 UNIT/ML X5UNITS SQ SCH ×2 (08:42)
--- NOTE | 2016-09-14 08:51 | Electrocardiograph Report ---
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
--- NOTE | 2016-09-14 12:33 | Discharge Summary ---
Date of Encounter: 09/14/16 Time of Encounter: 12:28 - Discharge Diagnosis (1) Acute kidney injury Priority: Primary Status: Acute (2) Hyperkalemia Priority: Primary Status: Acute (3) Acute encephalopathy Priority: Primary Status: Resolved (4) BPH (benign prostatic hyperplasia) Priority: Secondary Status: Chronic Qualifiers: Prostatic enlargement morphology: unspecified morphology Lower urinary tract symptom presence: presence of symptoms unspecified Qualified Code(s): N40.0 - Benign prostatic hyperplasia without lower urinary tract symptoms (5) Anxiety Priority: Secondary Status: Chronic (6) PTSD (post-traumatic stress disorder) Priority: Secondary Status: Chronic (7) DM2 (diabetes mellitus, type 2) Priority: Secondary Status: Chronic Qualifiers: Diabetes mellitus complication status: with hyperglycemia 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: with intermodal owner 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 truck driver use Qualified Code(s): E11.65 - Type 2 diabetes mellitus with hyperglycemia; Z79.4 - retirement (current) use of insulin (8) Chronic obstructive pulmonary disease Priority: Secondary Status: Chronic Qualifiers: COPD type: chronic bronchitis Chronic bronchitis type: simple Qualified Code(s): J41.0 - Simple chronic bronchitis (9) Essential hypertension Priority: Secondary Status: Chronic (10) Hyperlipidemia Priority: Secondary Status: Chronic Qualifiers: Hyperlipidemia type: mixed hyperlipidemia Qualified Code(s): E78.2 - Mixed hyperlipidemia (11) Depression Priority: Secondary Status: Chronic Qualifiers: Depression Type: unspecified Qualified Code(s): F32.9 - Major depressive disorder, single episode, unspecified (12) CHF (congestive heart failure) Priority: Secondary Status: Chronic Qualifiers: Congestive heart failure type: diastolic Congestive heart failure chronicity: chronic Qualified Code(s): I50.32 - Chronic diastolic (congestive ) heart failure (13) CAD (coronary artery disease) Priority: Secondary Status: Chronic Qualifiers: Coronary Disease-Associated Artery/Lesion type: [place] artery [place] vs. transplanted heart: [place] heart Associated angina: without angina Qualified Code(s): I25.10 - Atherosclerotic heart disease of [place] coronary artery without angina pectoris (14) Cirrhosis of liver Priority: Secondary Status: Chronic Qualifiers: Hepatic cirrhosis type: unspecified hepatic cirrhosis Ascites presence: without ascites Qualified Code(s): K74.60 - Unspecified cirrhosis of liver - Discharge Medications Home Medications: Cholecalciferol (Vitamin D3) [Vitamin D] 1,000 unit PO DAILY 05/13/15 [History] Insulin ASPART [NovoLOG] 48 - 94 unit SQ TIDWM 05/13/15 [History] Ropinirole HCl [Requip] 2 mg PO HS 05/13/15 [History] Venlafaxine HCl [Effexor Xr] 75 mg PO DAILY 05/13/15 [History] Aspirin Enteric Coated [Aspirin EC] 81 mg PO DAILY 11/13/15 [History] Atorvastatin [Lipitor] 40 mg PO HS 11/13/15 [History] Insulin Glargine,Hum.rec.anlog [Lantus Solostar] 160 unit SQ BID 11/13/15 [ History] Lactulose 45 ml PO TID 11/13/15 [History] Omeprazole [PriLOSEC] 20 mg PO DAILY 11/13/15 [History] Tamsulosin [Flomax] 0.4 mg PO DAILY 11/13/15 [History] Furosemide [Lasix] 40 mg PO DAILY 05/16/16 [History] RisperiDONE [Risperdal] 3 mg PO HS 05/16/16 [History] Rivaroxaban [Xarelto] 10 mg PO DAILY 05/16/16 [History] Sertraline [Zoloft] 50 mg PO DAILY 05/16/16 [History] Atenolol [Tenormin] 50 mg PO DAILY 05/29/16 [History] LevETIRAcetam [Keppra] 750 mg PO BID 06/07/16 [History] Ipratropium/Albuterol Neb [Duoneb] 3 ml IH Q6HR PRN 08/10/16 [History] Rifaximin [Xifaxan] 200 mg PO BID tablet 08/19/16 [Rx] Dicyclomine [Bentyl] 10 mg PO QID PRN #20 capsule 09/01/16 [Rx] Ondansetron HCl [Zofran] 4 mg PO Q6HR PRN #20 tablet 09/01/16 [Rx] HYDROcodone/Acet 5/325 mg [[place] 5-325 mg] 1 tab PO BID PRN #8 tablet 09/14/16 [ Rx] Lisinopril [Zestril] 2.5 mg PO HS #0 09/14/16 [Rx] Allergies/Adverse Reactions: Allergies Iodinated Contrast Media - Oral and Allergy (Verified 08/31/16 21:14) Difficulty Breathing ketorolac [From Toradol] Allergy (Verified 08/31/16 21:14) Nausea Penicillins Allergy (Verified 08/31/16 21:14) Rash butorphanol [From Stadol] Adverse Reaction (Verified 08/31/16 21:14) Nausea celecoxib Adverse Reaction (Verified 08/31/16 21:14) unknown listed on [facility] med rec gabapentin Adverse Reaction (Verified 08/31/16 21:14) unknown [facility] mirtazapine Adverse Reaction (Verified 08/31/16 21:14) unknown listed on [facility] tramadol Adverse Reaction (Verified 08/31/16 21:14) unknown listed [facility] vancomycin Adverse Reaction (Verified 08/31/16 21:14) unknown listed on [facility] med [facility] Date of admission: 09/11/16 20:33 Primary care physician: PCP [facility] Consults: 09/11/16 21:46 Consult to Nephrology [CONS] Routine Consulting Provider: Kidney Elizabeth/WILMAR/TIARRA/CINTHIA Reason for Consult: acute renal failure and hyperkalemia Time Notified: 21:46 Call Completed: No Discharging clinician: Paula Wagner Anticipated date of discharge: 09/14/16 - Patient Status Disposition: Transfer Other Condition: Good Functional capacity at discharge: independent ambulation Overall status at discharge: patient is progressing back to baseline - Discharge Instructions Instructions: Diabetes Mellitus Type 2 in Adults (DC) Follow [facility] With: [facility] [[facility] Care Provider[facility] - - Diet and Activity Activity: resume usual activities as tolerated Diet: diabetic diet, low fat, low cholesterol, low salt diet, other (renal, low K diet) Hospital course: Mr. Ramirez is a 66 year old male with multiple medical problems admitted with altered metnal status nad dehydration due to poor oral intake. He was noted to have acute renal failure along with hyperkalemia and metabolic acidosis. He was started on IV hydration along with medical management for hyperkalemia and serum potassium and creatinine gradually started improving. Spironolactone and ACEI are currently being held at discharge due to MJ and elevated potassium. Patient is otherwise doing well, tolerates oral diet and is medically stable for discharge with outpatient Nephrology and PCP f/up. - Time Spent with Patient Total time spent providing and/or coordinating discharge services: Greater than 30 minutes (50 min) - Constitutional Vitals: Temp Pulse Resp BP Pulse Ox 97.5 F L 83 18 136/77 94 09/14/16 11:39 09/14/16 11:39 09/14/16 11:39 09/14/16 11:39 09/14/16 11:39 General appearance: Present: A&O X 3, answers questions appropriately - Respiratory Respiratory exam: Present: CTAB. Absent: accessory muscle use, rales, rhonchi, wheezes - Cardiovascular Cardiovascular exam: Present: RRR, +S1, +S2. Absent: diastolic murmur, gallop, rubs, systolic murmur
[2016-09-15 10:27] VITALS: BP 136/77
--- NOTE | 2016-09-17 11:44 | Internal Med Progress Note ---
Date of Encounter: 09/12/16 Time of Encounter: 10:30 - Assessment and plan (1) Acute kidney injury Status: Acute Assessment and plan: serum creatinine noted to be improving; likely related to dehydration and poor oral intake; continue IV hydration and monitor urine output and serum creatinine ; (2) Hyperkalemia Status: Acute Assessment and plan: due to acute renal failure; currently improving; continue Telemetry and monitor electrolytes closely; (3) Acute encephalopathy Status: Resolved Assessment and plan: currently at baseline; (4) BPH (benign prostatic hyperplasia) Status: Chronic Qualifiers: Prostatic enlargement morphology: unspecified morphology Lower urinary tract symptom presence: presence of symptoms unspecified Qualified Code(s): N40.0 - Benign prostatic hyperplasia without lower urinary tract symptoms (5) Anxiety Status: Chronic (6) PTSD (post-traumatic stress disorder) Status: Chronic (7) DM2 (diabetes mellitus, type 2) Status: Chronic Assessment and plan: blood sugars noted to be poorly controlled; also has poorly controlled DM, hbA1C at 10.3%; will increase dose of basal insulin and continue Accucheck blood glucose monitoring with basal bolus insulin regimen; diabetic diet; Qualifiers: Diabetes mellitus complication status: with hyperglycemia 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: with senior living use Qualified Code(s): E11.65 - Type 2 diabetes mellitus with hyperglycemia; Z79.4 - retirement (current) use of insulin (8) Chronic obstructive pulmonary disease Status: Chronic Qualifiers: COPD type: chronic bronchitis Chronic bronchitis type: simple Qualified Code(s): J41.0 - Simple chronic bronchitis (9) Essential hypertension Status: Chronic (10) Hyperlipidemia Status: Chronic Qualifiers: Hyperlipidemia type: mixed hyperlipidemia Qualified Code(s): E78.2 - Mixed hyperlipidemia (11) Depression Status: Chronic Qualifiers: Depression Type: unspecified Qualified Code(s): F32.9 - Major depressive disorder, single episode, unspecified (12) CHF (congestive heart failure) Status: Chronic Qualifiers: Congestive heart failure type: diastolic Congestive heart failure chronicity: chronic Qualified Code(s): I50.32 - Chronic diastolic (congestive ) heart failure (13) CAD (coronary artery disease) Status: Chronic Qualifiers: Coronary Disease-Associated Artery/Lesion type: [place] artery [place] vs. transplanted heart: [place] heart Associated angina: without angina Qualified Code(s): I25.10 - Atherosclerotic heart disease of [place] coronary artery without angina pectoris (14) Cirrhosis of liver Status: Chronic Qualifiers: Hepatic cirrhosis type: unspecified hepatic cirrhosis Qualified Code(s): K74.60 - Unspecified cirrhosis of liver - Subjective Interval history: Reports feeling better; noted to be more alert and oriented; no chest pain, shortness of breath, cough but does have leg swelling; - Constitutional Vitals: Temp Pulse Resp BP Pulse Ox 97.5 F L 83 18 136/77 94 09/14/16 11:39 09/14/16 11:39 09/14/16 11:39 09/14/16 11:39 09/14/16 11:39 General appearance: Present: A&O X 3, answers questions appropriately - Respiratory Respiratory exam: Present: CTAB. Absent: accessory muscle use, rales, rhonchi, wheezes - Cardiovascular Cardiovascular exam: Present: RRR, +S1, +S2. Absent: diastolic murmur, gallop, rubs, systolic murmur - GI/Abdominal GI/Abdominal exam: Present: normal bowel sounds, soft, no peritoneal signs. Absent: distended, tenderness - Extremities Exam Extremities exam: Present: pedal edema, warm, radial pulses palpable and symetrical. Absent: calf tenderness, cyanotic Internal Medicine: Result - Labs CBC & Chem 7: 09/12/16 06:23 09/14/16 04:25 - ABG Interpretation ABG results: PT/INR, D-dimer PT 18.0 Seconds (9.4-12.1) H 09/11/16 15:56 Consult Discharge Plan - Plan Instructions: Diabetes Mellitus Type 2 in Adults (DC) [facility]: [facility] [Primary Care Provider] -
== END 2016-09-14 18:12 | disposition other institution (70) | DRG 682 ==
LOC: EMEROO 15:07 → 2ANU 20:33 → SUATTDRO 20:33 → 2ANU 21:25
PROVIDERS: ADMIT Nurse Practitioner Acute Care; ATTEND Internal Medicine

== ENCOUNTER 2016-10-06 08:32 | Inpatient (IN) ==
[2016-10-06] MEDS ORDERED: 0.9 % Sodium Chloride 1,000 ML IVC ONE ×2 (08:56→10:26)
--- NOTE | 2016-10-06 09:20 | Emergency Department Note ---
Disposition Clinical Impression: Syncope Disposition: Still a Patient Condition: Fair Referrals: NO,PCP [Primary Care Provider] - Forms: Work/School Release, ED Satisfaction Letter Time of Disposition: 11:06 Syncope HPI - General Chief Complaint: ED Syncope Stated Complaint: Low BP Time Seen by Provider: 10/06/16 08:56 Source: patient, EMS Mode of arrival: private vehicle Limitations: no limitations Nursing Notes Reviewed: Yes Vital Signs Reviewed: Yes - History of Present Illness HPI Narrative: 66-year-old male presents to the emergency department via EMS after reportedly having a syncopal episode. Patient was also seen to have a low blood pressure. Patient is a frequent visitor of the emergency department for chronic pain. He presents to the emergency department from a [facility]. He denies any new medications or adjustments to any of his medications. He is a known diabetic. He is not taking any of his diabetes medications today. He denies taking any of his morning medications. Patient states that when ambulating [place] after eating breakfast while standing he became dizzy and lightheaded and briefly fell to his knee. He denies any head injury or loss of consciousness. He denies any chest pain, shortness of breath, fever, chills, nausea, vomiting or abdominal pain. He is not currently dizzy or lightheaded. He has no additional injuries or complaints. Pt Subjective Complaint: felt faint, almost passed out Onset (ago): Just BI DEVELOPER Duration: second(s) Prodromal Symptoms: lightheaded Witnessed: yes - by bystander Context: standing up Injuries Sustained Associated with Event: none Current Symptoms: back to baseline History: none Treatments prior to arrival: none Associated trauma secondary to event: No - Related Data Home Medications Medication Instructions Recorded Confirmed Cholecalciferol (Vitamin D3) 1,000 unit PO DAILY 05/13/15 09/18/16 [Vitamin D] Insulin ASPART [NovoLOG] 48 - 94 unit SQ TIDWM 05/13/15 09/18/16 Ropinirole HCl [Requip] 2 mg PO HS 05/13/15 09/18/16 Venlafaxine HCl [Effexor Xr] 75 mg PO DAILY 05/13/15 09/18/16 Aspirin Enteric Coated [Aspirin EC] 81 mg PO DAILY 11/13/15 09/18/16 Atorvastatin [Lipitor] 40 mg PO HS 11/13/15 09/18/16 Insulin Glargine,Hum.rec.anlog 160 unit SQ BID 11/13/15 09/18/16 [Lantus Solostar] Lactulose 45 ml PO TID 11/13/15 09/18/16 Omeprazole [PriLOSEC] 20 mg PO DAILY 11/13/15 09/18/16 Tamsulosin [Flomax] 0.4 mg PO DAILY 11/13/15 09/18/16 Furosemide [Lasix] 40 mg PO DAILY 05/16/16 09/18/16 RisperiDONE [Risperdal] 3 mg PO HS 05/16/16 09/18/16 Rivaroxaban [Xarelto] 10 mg PO DAILY 05/16/16 09/18/16 Sertraline [Zoloft] 50 mg PO DAILY 05/16/16 09/18/16 Atenolol [Tenormin] 50 mg PO DAILY 05/29/16 09/18/16 LevETIRAcetam [Keppra] 750 mg PO BID 06/07/16 09/18/16 Ipratropium/Albuterol Neb [Duoneb] 3 ml IH Q6HR PRN 08/10/16 09/18/16 Previous Rx's Medication Instructions Recorded Rifaximin [Xifaxan] 200 mg PO BID tablet 08/19/16 Dicyclomine [Bentyl] 10 mg PO QID PRN #20 capsule 09/01/16 Ondansetron HCl [Zofran] 4 mg PO Q6HR PRN #20 tablet 09/01/16 HYDROcodone/Acet 5/325 mg [[place] 1 tab PO BID PRN #8 tablet 09/14/16 5-325 mg] Lisinopril [Zestril] 2.5 mg PO HS #0 09/14/16 Allergies Allergy/AdvReac Type Severity Reaction Status Date / Time Iodinated Contrast Media - Allergy Difficulty Verified 08/31/16 21:14 Oral and Breathing ketorolac [From Toradol] Allergy Nausea Verified 08/31/16 21:14 Penicillins Allergy Rash Verified 08/31/16 21:14 butorphanol [From Stadol] AdvReac Nausea Verified 08/31/16 21:14 celecoxib AdvReac unknown Verified 08/31/16 21:14 gabapentin AdvReac unknown Verified 08/31/16 21:14 mirtazapine AdvReac unknown Verified 08/31/16 21:14 tramadol AdvReac unknown Verified 08/31/16 21:14 vancomycin AdvReac unknown Verified 08/31/16 21:14 All systems ED: reviewed and negative except as stated. Constitutional: Denies: fever, chills Cardiovascular: Denies: chest pain, palpitations Respiratory: Denies: cough, dyspnea, wheezes Gastrointestinal: Denies: abdominal pain, nausea, vomiting Musculoskeletal: Reports: arthralgia (Right knee pain, chronic). Denies: back pain, neck pain Integumentary: Denies: rash, abrasion, lesions Neurological: Reports: other (Dizziness, lightheadedness). Denies: headache Psychiatric: Denies: anxiety, depression, suicidal thoughts, homicidal thoughts Past Medical History - Past Medical History Attestation: Yes The following information was validated with the patient. Source: patient, nursing notes reviewed Medical history: Reports: arthritis, cirrhosis, CHF, COPD, coronary artery disease, diabetes, GERD, hyperlipidemia, hypertension, liver disease, osteoporosis, TIA Surgical history: Reports: appendectomy, cholecystectomy, herniorrhaphy, knee replacement, other Psychiatric history: Reports: ADHD, previous psychiatric hospitalization - Social History Smoking Status: Never smoker Smokeless Tobacco Status: No Alcohol use: Reports: none Drug use: Reports: none Physical Exam - General Limitations: no limitations General appearance: alert, in no apparent distress - Head Head exam: atraumatic, normocephalic, normal inspection - Eye Eye exam: Present: normal appearance, PERRL - Neck Neck exam: Present: normal inspection, full ROM, trachea midline - Chest Chest inspection: Present: normal inspection, symmetric chest wall rise Course Course Narrative: I discussed this patient's case with the oncoming attending, Dr. Shea. He assumed care of this patient @ 1100. Vital Signs Temperature 97.6 F 10/06/16 08:33 Pulse Rate 90 10/06/16 08:33 Respiratory Rate 24 10/06/16 08:33 Blood Pressure 80/51 10/06/16 08:33 O2 Sat by Pulse Oximetry 94 10/06/16 08:33 Temperature 97.6 F 10/06/16 08:33 Pulse Rate 87 10/06/16 08:54 Respiratory Rate 24 10/06/16 08:54 Blood Pressure 83/40 10/06/16 08:54 O2 Sat by Pulse Oximetry 95 10/06/16 08:54 Oxygen Delivery Oxygen Delivery Room Air Syncope - Lab Data Lab results reviewed: Yes I reviewed the patient's lab results. - Radiology Data Radiology results reviewed: Yes I reviewed the patient's radiology results.
[2016-10-06] MEDS ORDERED: Lidocaine -MPF 1% 2 ML VIAL ID PRN (09:21)
[2016-10-06 09:31] LABS: Basophils % 0.6 %; Eosinophils # 0.2 K/mcL (0.0-0.6); Eosinophils % 3.9 %; Hematocrit 32.8 % (37.5-50.1); Hemoglobin 11.1 g/dL (12.9-16.9); Immature Granulocytes % 0.2 % (0-4); Lymphocytes # 1.3 K/mcL (0.6-4.6); Lymphocytes % 27.7 %; Mean Corpuscular HGB Conc 33.8 g/dL (31.6-35.5); Mean Corpuscular Hemoglobin 28.1 pg (28.0-33.3); Mean Platelet Volume 10.5 fL (9.4-12.4); Monocytes # 0.5 K/mcL (0.0-1.3); Monocytes % 10.6 %; Neutrophils # 2.6 K/mcL (1.6-8.9); Red Blood Count 3.95 M/mcL (4.19-5.50); Red Cell Distribution Width 16.6 % (11.5-14.5)
[2016-10-06 09:32] LABS: Platelet Count 69 K/mcL (140-400)
[2016-10-06 09:35] LABS: INR 1.3; Prothrombin Time 13.6 Seconds (9.4-12.1)
[2016-10-06 09:43] LABS: Albumin 3.1 g/dL (3.5-5.0); Albumin/Globulin Ratio 0.9 (1.1-2.2); Bilirubin,Total 0.3 mg/dL (0.2-1.2); Calcium 9.5 mg/dL (8.6-10.8); Globulin 3.6 g/dL (2.4-3.5); Potassium 5.1 mEq/L (3.5-4.5); Total Protein 6.7 g/dL (6.0-8.3)
[2016-10-06 09:47] LABS: Platelet Estimate Decreased (Normal)
[2016-10-06] MEDS ORDERED: Insulin Human Regular 10 UNIT in 0.9 % Sodium Chloride 10 ML IV ONE (11:01)
[2016-10-06 12:08] LABS: Bilirubin,Urine Negative (Negative); Blood,Urine Negative (Negative); Clarity,Urine Clear (Clear); Color,Urine Yellow (Yellow); Glucose,Urine (UA) >=1000 mg/dL (Normal); Ketones,Urine Negative (Negative); Leukocyte Esterase,Urine Negative (Negative); Nitrite,Urine Negative (Negative); Protein,Urine Negative (Neg-Trace); Specific Gravity,Urine 1.021 (1.010-1.025); Urobilinogen,Urine Normal (Normal)
[2016-10-06] MEDS ORDERED: Calcium Gluconate 1,000 MG in D5% in Water 100 ML IVPB ONE (13:34)
[2016-10-06] MEDS ORDERED: Naloxone 0.4 MG/ML INJ IVP PRN (14:50)
[2016-10-06] MEDS ORDERED: Ondansetron ODT 4 MG TAB.RAPDIS PO PRN (14:56)
[2016-10-06] MEDS ORDERED: Ipratropium/Albuterol Neb 3 ML IH PRN (14:56)
--- NOTE | 2016-10-06 14:59 | Event Note ---
Date of Encounter: 10/06/16 Time of Encounter: 14:54 Patient seen and examined with nurse practitioner. Patient presents with lethargy and recurrent syncopal episodes due to hypotension. He was found to have hyponatremia hyperkalemia and slight metabolic acidosis. He denies any diarrhea or vomiting but feels nauseous. He does not drink alcohol. Symptoms have been going on for several months. I suspect adrenal insufficiency. Will check Cortisol level with morning labs done today at 9 AM. I will also repeat Cortisol at 5 AM tomorrow if it is nonconclusive. I will not start any emperic steroids to avoid confounding the labs. 2 L bolus of NS will be given continue normal saline 125 miles an hour. Hold all blood pressure medications. He denies any G.I. bleeding while he is on the road so now for prior PE and hemoglobin at baseline. Hyperglycemic hyperosmolar state, will hydrate and give insulin every 4 hours as needed. Continuous telemetry monitoring. Physical therapy and occupational therapy to see the patient. He lives in a care home. He wants to be full code.
--- NOTE | 2016-10-06 15:08 | Internal Med History&Physical ---
Date of Encounter: 10/06/16 Time of Encounter: 15:02 Assessment and Plan (1) Hypotension Current visit: No Status: Acute Patient with lightheadedness and near syncope on standing. Blood pressures running 80s/40s on arrival. Patient given 2L of fluid boluses in ED. Continue with IV fluids 0.9NS at 100mL/hr. Hold all blood pressure medications. Suspect adrenal insufficiency with orthostatic hypotension, hyponatremia and hyperkalemia, we are checking morning cortisol to confirm. If confirmed, will start patient on steroids. Qualifiers: Hypotension type: orthostatic hypotension Qualified Code(s): I95.1 - Orthostatic hypotension (2) Hyponatremia Current visit: No Status: Acute sodium of 124. Patient appears to have had hyponatremia on previous labs. Suspect Adrenal insufficiency. Will get morning cortisol level to confirm. Will hydrate with 0.9NS at 100mL/hr. Recheck chemistry in the morning. (3) Hyperglycemia Current visit: No Status: Acute Patient presented with blood sugar of 490. He was given 10u of insulin in ED and blood sugar came down to 355 on recheck. (4) Acute kidney injury Current visit: No Status: Acute BUN of 52 and creatinine of 2.98, up from baseline. Will hydrate and recheck chemistry in the morning. (5) DM2 (diabetes mellitus, type 2) Current visit: No Status: Chronic Not well controlled as evidenced by Hgb A1c of 10.3 on 09/12/16. Check blood sugar ACHS Basal insulin of 26u Levemir BID 10u short acting insuling TIDWM sliding scale correction dose ACHS hypoglycemic protocol. Qualifiers: Diabetes mellitus complication status: with hyperglycemia Diabetes mellitus nursing home insulin use: with management supervisor use Qualified Code(s): E11.65 - Type 2 diabetes mellitus with hyperglycemia; Z79.4 - retirement (current) use of insulin (6) Hyperkalemia Current visit: No Status: Acute Potassium of 5.1. Patient given Calcium gluconate, sodium bicarb and 10u of IV insulin. Suspect adrenal insufficiency, we are checking morning cortisol for comfirmation. Hold lasix Will recheck chemistry in the morning. (7) Chronic anticoagulation Current visit: No Status: Chronic Patient on Xarelto for history of PE. He denies any bleeding episodes. Continue home dose of xarelto. (8) DVT prophylaxis Current visit: No Status: Acute anti-embolic stockings Patient on xarelto for history of PE, additional pharmacologic prophylaxis not warrented. Internal Medicine - H&P: HPI Chief complaint: syncope Admitted From: Emergency Dept Plans for Post Hospital Care: Home (detention) History of present illness: Mr. Ramirez is a 66 year old male with diabetes, hypertension, hyperlipidemia, history of PE on several toe, CHF, COPD, liver disease, who presented to the emergency department today with complaints of lightheadedness, and passing out after standing up from the breakfast table this morning. He reports this morning when he stood up from the breakfast table he felt lightheaded and fell to his knees, when he was helped up, he got lightheaded again. Patient also reports poor appetite, but reports he has been eating and drinking. He reports occasional blurry vision. He denies headache, new numbness or tingling, focal weakness. He denies fever, chills or sweats. He denies chest pain, palpitations and shortness of breath. Evaluation in the ED was significant for hypotension with blood pressures in 80s/40s. He was also hyponatremic with sodium of 124, hyperkalemic with potassium of 5.1. His creatinine was up from baseline to 2.98, and BUN was elevated to 52. CXR showed no evidence of acute cardiopulmonary disease. On exam, patient was alert and oriented, in no distress. Lungs were clear to auscultation bilaterally, heart had regular rate and rhythm. Past Med Surg Social Fam HX - Past Medical History Medical history: arthritis, cirrhosis, CHF, COPD, coronary artery disease, diabetes, GERD, hyperlipidemia, hypertension, liver disease, osteoporosis, TIA Psychiatric history: ADHD, previous psychiatric hospitalization - Past Surgical History Surgical History: appendectomy, cholecystectomy, herniorrhaphy, knee replacement , other - Social History Smoking Status: Never smoker Smokeless Tobacco Status: No Alcohol use: none (former) Drug use: none (former) - Family History Mother Living Status: Age at : 62 Cause of : brain cancer Hx Family Cancer: Yes Father Living Status: Age at : 89 Cause of : cirrhosis Internal Medicine - H&P: Meds Cholecalciferol (Vitamin D3) [Vitamin D] 1,000 unit PO DAILY 05/13/15 [History] Insulin ASPART [NovoLOG] 48 - 94 unit SQ TIDWM 12/07/15 [History] Ropinirole HCl [Requip] 2 mg PO HS 05/13/15 [History] Venlafaxine HCl [Effexor Xr] 75 mg PO DAILY 05/13/15 [History] Aspirin Enteric Coated [Aspirin EC] 81 mg PO DAILY 11/13/15 [History] Atorvastatin [Lipitor] 40 mg PO HS 11/13/15 [History] Insulin Glargine,Hum.rec.anlog [Lantus Solostar] 160 unit SQ BID 11/13/15 [ History] Lactulose 45 ml PO TID 11/13/15 [History] Omeprazole [PriLOSEC] 20 mg PO DAILY 11/13/15 [History] Tamsulosin [Flomax] 0.4 mg PO DAILY 11/13/15 [History] Furosemide [Lasix] 40 mg PO DAILY 05/16/16 [History] RisperiDONE [Risperdal] 3 mg PO HS 05/16/16 [History] Rivaroxaban [Xarelto] 10 mg PO DAILY 05/16/16 [History] Sertraline [Zoloft] 50 mg PO DAILY 05/16/16 [History] Atenolol [Tenormin] 50 mg PO DAILY 05/29/16 [History] LevETIRAcetam [Keppra] 750 mg PO BID 06/07/16 [History] Ipratropium/Albuterol Neb [Duoneb] 3 ml IH Q6HR PRN 08/10/16 [History] Rifaximin [Xifaxan] 200 mg PO BID tablet 08/19/16 [Rx] Dicyclomine [Bentyl] 10 mg PO QID PRN #20 capsule 09/01/16 [Rx] Ondansetron HCl [Zofran] 4 mg PO Q6HR PRN #20 tablet 09/01/16 [Rx] HYDROcodone/Acet 5/325 mg [Jber 5-325 mg] 1 tab PO BID PRN #8 tablet 09/14/16 [ Rx] Lisinopril [Zestril] 2.5 mg PO HS #0 09/14/16 [Rx] Allergies Iodinated Contrast Media - Oral and Allergy (Verified 10/06/16 13:24) Difficulty Breathing ketorolac [From Toradol] Allergy (Verified 10/06/16 13:24) Nausea Penicillins Allergy (Verified 10/06/16 13:24) Rash butorphanol [From Stadol] Adverse Reaction (Verified 10/06/16 13:24) Nausea celecoxib Adverse Reaction (Verified 10/06/16 13:24) [facility] gabapentin Adverse Reaction (Verified 10/06/16 13:24) unknown [facility] list. mirtazapine Adverse Reaction (Verified 10/06/16 13:24) [facility] tramadol Adverse Reaction (Verified 10/06/16 13:24) [facility] vancomycin Adverse Reaction (Verified 10/06/16 13:24) unknown listed on [facility] med [facility] All Systems PM: A 10-system review of systems was performed and is negative for pertinent findings except as documented above in the HPI. - Constitutional Constitutional: anorexia, no chills, no fever(s), no night sweats - EENT Eyes: blurry vision, no change in vision, no discharge, no pain, no photophobia Ears: no ear discharge, no ear pain, no tinnitus Nose, mouth and throat: no dysphagia, no nasal discharge, no neck pain, no sore throat - Cardiovascular Cardiovascular ROS IM: lightheadedness, no chest pain, no diaphoresis, no dyspnea, no palpitations, no syncope - Respiratory Respiratory: no cough, no dyspnea, no wheezing, no excessive phlegm production - Gastrointestinal Gastrointestinal: no abdominal pain, no diarrhea, no hematemesis, no hematochezia, no melena, no nausea, no vomiting - Musculoskeletal Musculoskeletal ROS IM: no numbness, no tingling - Integumentary Integumentary IM: no rash, no unusual bruising - Neurological Neurological ROS: no confusion, no convulsions, no focal weakness, no numbness, no tingling, no tremor(s) - Hematologic/Lymphatic Hematologic/Lymphatic: no easy bruising - Constitutional Vitals: Temp Pulse Resp BP Pulse Ox 97.6 F 96 15 129/68 99 10/06/16 14:45 10/06/16 14:45 10/06/16 14:45 10/06/16 14:45 10/06/16 14:45 - Head Head exam: Present: atraumatic, normocephalic - Eye Eye exam: Present: PERRL, conjuntiva pink, sclera anicteric Pupils: Present: PERRL - Neck Neck exam general surgery: Present: supple, trachea midline. Absent: lymphadenopathy - Respiratory Respiratory exam: Present: CTAB. Absent: accessory muscle use, rales, rhonchi, wheezes - Cardiovascular Cardiovascular exam: Present: RRR, +S1, +S2. Absent: diastolic murmur, gallop, rubs, systolic murmur - GI/Abdominal GI/Abdominal exam: Present: normal bowel sounds, soft, no peritoneal signs. Absent: distended, tenderness - Extremities Exam Extremities exam: Present: warm, radial pulses palpable and symetrical. Absent : calf tenderness, cyanotic, pedal edema - Neurological Exam Neurological exam: Present: CN II-XII intact, oriented X3, no focal deficits. Absent: pronater drift, facial droop, speech deficit - Skin Skin exam: Present: dry, intact Internal Med - H&P Results - Labs CBC & Chem 7: 10/06/16 09:19 10/06/16 09:19 Labs: All Lab Results (24 Hours) 10/06/16 10/06/16 10/06/16 Range/Units 09:19 09:19 09:19 WBC 4.6 (4.3-11.1) K/mcL RBC 3.95 L (4.19-5.50) M/mcL Hgb 11.1 L (12.9-16.9) g/dL Hct 32.8 L (37.5-50.1) % MCV 83.0 (83.0-100.0) fL MCH 28.1 (28.0-33.3) pg MCHC 33.8 (31.6-35.5) g/dL RDW 16.6 H (11.5-14.5) % Plt Count 69 L (140-400) K/mcL MPV 10.5 (9.4-12.4) fL Immature Gran % 0.2 (0-4) % Seg Neutrophils % 57.0 % Lymphocytes % 27.7 % Monocytes % 10.6 % Eosinophils % 3.9 % Basophils % 0.6 % Neutrophils # 2.6 (1.6-8.9) K/mcL Lymphocytes # 1.3 (0.6-4.6) K/mcL Monocytes # 0.5 (0.0-1.3) K/mcL Eosinophils # 0.2 (0.0-0.6) K/mcL Basophils # 0.0 (0.0-0.2) K/mcL Platelet Estimate Decreased L (Normal) PT 13.6 H (9.4-12.1) Seconds INR 1.3 APTT 31.0 (26.0-36.0) Seconds Sodium 124 L (136-145) mEq/L Potassium 5.1 H (3.5-4.5) mEq/L Chloride 97 L (98-109) mEq/L Carbon Dioxide 20 (19-29) mEq/L BUN 52 H (8-26) mg/dL Creatinine 2.98 H (0.72-1.25) mg/dL Est GFR ( Amer) 26 L (> 60) Est GFR (Non-Af Amer) 21 L (> 60) BUN/Creatinine Ratio 17 (6-26) Glucose 490 H (70-99) mg/dL POC Glucose (58-89) Calculated Osmolality 294 (280-300) Calcium 9.5 (8.6-10.8) mg/dL Total Bilirubin 0.3 (0.2-1.2) mg/dL AST 30 (5-34) Units/L ALT 48 (0-55) Units/L Alkaline Phosphatase 134 H (38-126) Units/L Troponin I (0-0.03) ng/mL Serum Total Protein 6.7 (6.0-8.3) g/dL Albumin 3.1 L (3.5-5.0) g/dL Globulin 3.6 H (2.4-3.5) g/dL Albumin/Globulin Ratio 0.9 L (1.1-2.2) Urine Color (Yellow) Urine Clarity (Clear) Urine pH (5.0-8.0) pH Units Ur Specific [place] (1.010-1.025) Urine Protein (Neg-Trace) mg/dL Urine Glucose (UA) (Normal) mg/dL Urine Ketones (Negative) mg/dL Urine Blood (Negative) Urine Nitrite (Negative) Urine Bilirubin (Negative) Urine Urobilinogen (Normal) mg/dL Ur Leukocyte Esterase (Negative) Ur Culture Indicated? (NO) 10/06/16 10/06/16 10/06/16 Range/Units 09:19 11:44 14:48 WBC (4.3-11.1) K/mcL RBC (4.19-5.50) M/mcL Hgb (12.9-16.9) g/dL Hct (37.5-50.1) % MCV (83.0-100.0) fL MCH (28.0-33.3) pg MCHC (31.6-35.5) g/dL RDW (11.5-14.5) % Plt Count (140-400) K/mcL MPV (9.4-12.4) fL Immature Gran % (0-4) % Seg Neutrophils % % Lymphocytes % % Monocytes % % Eosinophils % % Basophils % % Neutrophils # (1.6-8.9) K/mcL Lymphocytes # (0.6-4.6) K/mcL Monocytes # (0.0-1.3) K/mcL Eosinophils # (0.0-0.6) K/mcL Basophils # (0.0-0.2) K/mcL Platelet Estimate (Normal) PT (9.4-12.1) Seconds INR APTT (26.0-36.0) Seconds Sodium (136-145) mEq/L Potassium (3.5-4.5) mEq/L Chloride (98-109) mEq/L Carbon Dioxide (19-29) mEq/L BUN (8-26) mg/dL Creatinine (0.72-1.25) mg/dL Est GFR ( Amer) (> 60) Est GFR (Non-Af Amer) (> 60) BUN/Creatinine Ratio (6-26) Glucose (70-99) mg/dL POC Glucose 355 H (58-89) Calculated Osmolality (280-300) Calcium (8.6-10.8) mg/dL Total Bilirubin (0.2-1.2) mg/dL AST (5-34) Units/L ALT (0-55) Units/L Alkaline Phosphatase (38-126) Units/L Troponin I 0.00 (0-0.03) ng/mL Serum Total Protein (6.0-8.3) g/dL Albumin (3.5-5.0) g/dL Globulin (2.4-3.5) g/dL Albumin/Globulin Ratio (1.1-2.2) Urine Color Yellow (Yellow) Urine Clarity Clear (Clear) Urine pH 6.0 (5.0-8.0) pH Units Ur Specific [place] 1.021 (1.010-1.025) Urine Protein Negative (Neg-Trace) mg/dL Urine Glucose (UA) >=1000 H (Normal) mg/dL Urine Ketones Negative (Negative) mg/dL Urine Blood Negative (Negative) Urine Nitrite Negative (Negative) Urine Bilirubin Negative (Negative) Urine Urobilinogen Normal (Normal) mg/dL Ur Leukocyte Esterase Negative (Negative) Ur Culture Indicated? NO (NO) - Diagnostic Studies Chest x-ray Additional comments: Chest X-Ray 10/06/16 08:56 IMPRESSION: 1. No evidence of acute cardiopulmonary disease. 2. Cardiomegaly. D/ / Kp Díaz MD / Kp Díaz MD Interpreting Provider: Kp Díaz MD
[2016-10-06] MEDS ORDERED: Dextrose Gel 15 GM PO PRN ×2 (15:21)
[2016-10-06] MEDS ORDERED: *HR* Dextrose 50 % in Water (Syg) 50 ML SYRINGE IVP PRN (15:21)
[2016-10-06] MEDS ORDERED: D5% in Water 1,000 ML IVC PRN (15:21)
[2016-10-06] MEDS: Lactulose Oral Soln 20 GM/30 ML UDC PO SCH ×2 (17:47→21:48)
[2016-10-06] MEDS: Insulin LISPRO 300 UNITS/3 ML VIAL SQ SCH ×3 (17:48→21:47)
[2016-10-06] MEDS: 0.9 % Sodium Chloride 1,000 ML IVC SCH (17:49)
[2016-10-06] MEDS: LEVETIRACETAM 750 MG PO SCH ×2 (17:50→22:18)
[2016-10-06] MEDS: *HR* HYDROcodone/Acet 5/325 mg TABLET PO PRN (18:28)
[2016-10-06] MEDS ORDERED: Insulin DETEMIR 100 UNIT/ML X5UNITS SQ SCH (21:00)
[2016-10-06] MEDS: rOPINIRole 1 MG TABLET PO SCH (21:46)
[2016-10-06] MEDS: risperiDONE 1 MG TABLET PO SCH (21:46)
[2016-10-06] MEDS: levETIRAcetam 250 MG TABLET PO SCH (21:47)
[2016-10-06] MEDS: Insulin DETEMIR 100 UNIT/ML X5UNITS SQ SCH (21:47)
[2016-10-07] MEDS: *HR* HYDROcodone/Acet 5/325 mg TABLET PO PRN (04:29)
[2016-10-07] MEDS: 0.9 % Sodium Chloride 1,000 ML IVC SCH ×2 (04:55→15:26)
[2016-10-07 05:14] LABS: Mean Corpuscular Volume 84.4 fL (83.0-100.0); Mean Platelet Volume 10.8 fL (9.4-12.4); Red Cell Distribution Width 16.9 % (11.5-14.5)
[2016-10-07 05:16] LABS: Eosinophils # 0.2 K/mcL (0.0-0.6); Eosinophils % 5.4 %; Hematocrit 31.8 % (37.5-50.1); Hemoglobin 10.8 g/dL (12.9-16.9); Immature Platelets 6.7 % (1.1-6.1); Lymphocytes % 41.7 %; Mean Corpuscular Hemoglobin 28.6 pg (28.0-33.3); Monocytes # 0.3 K/mcL (0.0-1.3); Monocytes % 9.2 %; Neutrophils # 1.3 K/mcL (1.6-8.9); Red Blood Count 3.77 M/mcL (4.19-5.50); Segmented Neutrophils % 42.7 %
[2016-10-07 05:48] LABS: Calcium 8.8 mg/dL (8.6-10.8); Magnesium 1.9 mg/dL (1.6-2.6)
[2016-10-07 05:56] LABS: Lymphocytes # 1.3 K/mcL (0.6-4.6); Platelet Count 63 K/mcL (140-400)
[2016-10-07] MEDS ORDERED: Cosyntropin 250 MCG/2 ML VIAL IVP ONE (07:33)
[2016-10-07] MEDS: Venlafaxine XR (24 HR) 75 MG CAP.ER.24H PO SCH (09:08)
[2016-10-07] MEDS: levETIRAcetam 250 MG TABLET PO SCH ×2 (09:08→20:37)
[2016-10-07] MEDS: Aspirin Enteric Coated 81 MG Tablet PO SCH (09:08)
[2016-10-07] MEDS: Lactulose Oral Soln 20 GM/30 ML UDC PO SCH ×3 (09:09→20:38)
[2016-10-07] MEDS: Insulin DETEMIR 100 UNIT/ML X5UNITS SQ SCH ×2 (09:09→20:38)
[2016-10-07] MEDS: *HR* Rivaroxaban 10 MG TABLET PO SCH (09:09)
[2016-10-07] MEDS: Insulin LISPRO 300 UNITS/3 ML VIAL SQ SCH ×7 (09:09→20:37)
[2016-10-07] MEDS: *HR* OxyCODONE/APAP 7.5/325 TABLET PO PRN ×3 (09:23→22:39)
--- NOTE | 2016-10-07 13:44 | Internal Med Progress Note ---
<Foreign Solano - Last Filed: 10/07/16 14:45> Date of Encounter: 10/07/16 Time of Encounter: 13:42 - Assessment and plan (1) Adrenal insufficiency Current Visit: Yes Status: Acute Assessment and plan: Patient presented with hypotension, hyponatremia, hyperkalemia. Concerns for adrenal deficiency. Cosyntropin completed which demonstrated a baseline of 9.2 , 30 minute 13.4 and 60 minute 16.8. Plan: - We will start hydrocortisone 10 mg every morning and 5 mg at bedtime (2) Hyponatremia Current Visit: No Status: Acute Assessment and plan: Patient presents with sodium 124 history of low to normal sodium in the past. This is associated with hyperkalemia and hypotension. Likely secondary to adrenal insufficiency. - Sodium improved from 124-131 with IV fluids - Patient is stable Plan: -Continue IV fluids - Patient received mineral corticosteroid and glucocorticosteroid placement. (3) Diabetes Current Visit: No Status: Chronic Assessment and plan: Patient with known type II diabetic who presented with a glucose of 490, hyponatremia, even after correcting pseudohyponatremia. - Current glucose 247 - Plan for improved glucose control during inpatient stay Plan: -Levemir 26 units twice a day - Mealtime replacements 3 times a day - Inpatient sliding scale low-dose. 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 Currently stable. Plan: -Continue on breathing treatments, DuoNeb nebs every 6 hours when necessary Qualifiers: COPD type: chronic bronchitis Chronic bronchitis type: simple Qualified Code(s): J41.0 - Simple chronic bronchitis (5) Cirrhosis of liver Current Visit: No Status: Chronic Assessment and plan: History of [place]. Likely contributing to chronic medical conditions. Qualifiers: Hepatic cirrhosis type: unspecified hepatic cirrhosis Ascites presence: without ascites Qualified Code(s): K74.60 - Unspecified cirrhosis of liver (6) Obesity (BMI 30-39.9) Current Visit: No Status: Chronic Assessment and plan: Patient is morbidly obese with fatty liver disease, hyperlipidemia, diabetes and hypertension. Weight loss would benefit the patient in improving longevity. (7) CAD (coronary artery disease), [place] coronary artery Current Visit: No Status: Chronic Assessment and plan: Known history of coronary artery disease. Continue aspirin, beta pranay and simvastatin. Qualifiers: [place] vs. transplanted heart: [place] heart Associated angina: angina presence unspecified Qualified Code(s): I25.10 - Atherosclerotic heart disease of [place] coronary artery without angina pectoris (8) Thrombocytopenia Current Visit: No Status: Acute Assessment and plan: Platelet count 63 likely secondary to liver cirrhosis and chronic medical conditions. - Continue monitoring with daily CBCs. Physical exam without findings of bleeding. (9) Acute kidney injury superimposed on CKD Current Visit: No Status: Acute Assessment and plan: Patient presented with a creatinine of 2.98 in the setting of hypotension and hyperglycemia. Appears to be a mixed picture. Patient is receiving IV fluids with improvement of his creatinine to 1.53. Plan: - Continue IV rehydration - Continue blood pressure control - We will monitor renal function - Avoid nephrotoxic medications and renally dose antibiotics. - Subjective Interval history: Mr. Ramirez has been seen and evaluated this morning at patient bedside. He is awake, alert and in no acute distress. He denies any discomfort, pains, current problems. Describing his medical problems brought him then he said that he was standing and felt that he is going to fall and washed himself fall to the ground with inability to stop himself. He denies any current lightheadedness, syncope episodes, chest pain, palpitations, blurry vision. Discussing the preceding factors he denies adjuvant appetite had been drinking fluids and going about his daily business. - Constitutional Vitals: Temp Pulse Resp BP Pulse Ox 97.5 F L 86 17 127/75 96 10/07/16 11:05 10/07/16 11:05 10/07/16 11:05 10/07/16 11:05 10/07/16 11:05 - Head Head exam: Present: atraumatic, normocephalic - Eye Eye exam: Present: PERRL, conjuntiva pink, sclera anicteric Pupils: Present: PERRL - Neck Neck exam general surgery: Present: supple, trachea midline. Absent: lymphadenopathy - Respiratory Respiratory exam: Present: CTAB. Absent: accessory muscle use, rales, rhonchi, wheezes - Cardiovascular Cardiovascular exam: Present: RRR, +S1, +S2. Absent: diastolic murmur, gallop, rubs, systolic murmur - GI/Abdominal GI/Abdominal exam: Present: normal bowel sounds, soft, no peritoneal signs. Absent: distended, tenderness - Extremities Exam Extremities exam: Present: warm, radial pulses palpable and symetrical. Absent : calf tenderness, cyanotic, pedal edema - Neurological Exam Neurological exam: Present: alert, oriented X3, no focal deficits. Absent: pronater drift, facial droop, speech deficit Internal Medicine: Result - Labs CBC & Chem 7: 10/07/16 04:55 10/07/16 04:55 Labs: Short CBC 10/07/16 Range/Units 04:55 WBC 3.0 L (4.3-11.1) K/mcL Hgb 10.8 L (12.9-16.9) g/dL Hct 31.8 L (37.5-50.1) % Plt Count 63 L (140-400) K/mcL Neutrophils # 1.3 L (1.6-8.9) K/mcL BMP 10/07/16 04:55 Sodium 131 L D Potassium 5.0 H Chloride 106 Carbon Dioxide 21 BUN 36 H D Creatinine 1.53 H Glucose 272 H Calcium 8.8 - ABG Interpretation ABG results: PT/INR, D-dimer PT 13.6 Seconds (9.4-12.1) H 10/06/16 09:19 Consult Discharge Plan - Plan Referrals: NO,PCP [Primary Care Provider] - <Demetrio Horne - Last Filed: 10/07/16 19:12> Date of Encounter: 10/07/16 - Constitutional Vitals: Temp Pulse Resp BP Pulse Ox 98.4 F 102 17 180/75 93 10/07/16 15:02 10/07/16 15:02 10/07/16 15:02 10/07/16 15:02 10/07/16 15:02 Internal Medicine: Result - Labs CBC & Chem 7: 10/07/16 04:55 10/07/16 04:55 Labs: Short CBC 10/07/16 Range/Units 04:55 WBC 3.0 L (4.3-11.1) K/mcL Hgb 10.8 L (12.9-16.9) g/dL Hct 31.8 L (37.5-50.1) % Plt Count 63 L (140-400) K/mcL Neutrophils # 1.3 L (1.6-8.9) K/mcL BMP 10/07/16 04:55 Sodium 131 L D Potassium 5.0 H Chloride 106 Carbon Dioxide 21 BUN 36 H D Creatinine 1.53 H Glucose 272 H Calcium 8.8 - ABG Interpretation ABG results: PT/INR, D-dimer PT 13.6 Seconds (9.4-12.1) H 10/06/16 09:19 - Attending Attestation I examined this patient and my medical decision-making was reviewed with the Resident Physician, Dr Ramirez. I agree with the documented findings, disposition and treatment plan as described except to the extent set forth below. He is no acute distress, speaking in full sentences. Heart is regular rate and rhythm S1-S2 no murmurs rubs or gallops. Plan: IV fluids. Workup for adrenal insufficiency was positive. Start oral hydrocortisone and monitor his vital signs closely. Increase insulin regimen for uncontrolled diabetes.
[2016-10-07] MEDS ORDERED: Insulin LISPRO 300 UNITS/3 ML VIAL SQ SCH (17:49)
[2016-10-07] MEDS: Hydrocortisone 10 MG TABLET PO SCH (20:37)
[2016-10-07] MEDS: rOPINIRole 1 MG TABLET PO SCH (20:38)
[2016-10-07] MEDS: risperiDONE 1 MG TABLET PO SCH (20:39)
[2016-10-08 03:41] LABS: Basophils % 0.4 %; Eosinophils # 0.1 K/mcL (0.0-0.6); Eosinophils % 3.5 %; Hematocrit 31.6 % (37.5-50.1); Hemoglobin 10.7 g/dL (12.9-16.9); Immature Granulocytes % 0.7 % (0-4); Lymphocytes # 1.1 K/mcL (0.6-4.6); Lymphocytes % 36.8 %; Mean Corpuscular HGB Conc 33.9 g/dL (31.6-35.5); Mean Corpuscular Hemoglobin 28.2 pg (28.0-33.3); Mean Corpuscular Volume 83.2 fL (83.0-100.0); Mean Platelet Volume 10.7 fL (9.4-12.4); Monocytes # 0.3 K/mcL (0.0-1.3); Monocytes % 8.8 %; Neutrophils # 1.4 K/mcL (1.6-8.9); Platelet Count 55 K/mcL (140-400); Red Cell Distribution Width 16.7 % (11.5-14.5); Segmented Neutrophils % 49.8 %
[2016-10-08 03:46] LABS: Albumin 2.9 g/dL (3.5-5.0); Albumin/Globulin Ratio 0.8 (1.1-2.2); Bilirubin,Total 0.3 mg/dL (0.2-1.2); Calcium 8.6 mg/dL (8.6-10.8); Globulin 3.8 g/dL (2.4-3.5); Potassium 4.6 mEq/L (3.5-4.5); Total Protein 6.7 g/dL (6.0-8.3)
[2016-10-08] MEDS: 0.9 % Sodium Chloride 1,000 ML IVC SCH (04:36)
[2016-10-08] MEDS: *HR* OxyCODONE/APAP 7.5/325 TABLET PO PRN ×2 (06:35→19:48)
--- NOTE | 2016-10-08 06:50 | Electrocardiograph Report ---
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
[2016-10-08] MEDS: Lactulose Oral Soln 20 GM/30 ML UDC PO SCH ×3 (09:18→19:46)
[2016-10-08] MEDS: levETIRAcetam 250 MG TABLET PO SCH ×2 (09:20→19:47)
[2016-10-08] MEDS: Hydrocortisone 10 MG TABLET PO SCH ×2 (09:20→19:48)
[2016-10-08] MEDS: Aspirin Enteric Coated 81 MG Tablet PO SCH (09:20)
[2016-10-08] MEDS: Venlafaxine XR (24 HR) 75 MG CAP.ER.24H PO SCH (09:21)
[2016-10-08] MEDS: Insulin LISPRO 300 UNITS/3 ML VIAL SQ SCH ×3 (09:21→18:05)
[2016-10-08] MEDS: *HR* Rivaroxaban 10 MG TABLET PO SCH (09:21)
[2016-10-08] MEDS: Insulin DETEMIR 100 UNIT/ML X5UNITS SQ SCH ×2 (09:28→20:12)
[2016-10-08] MEDS ORDERED: *HR* Dextrose 50 % in Water (Syg) 50 ML SYRINGE IVP PRN ×2 (11:17→16:13)
[2016-10-08] MEDS ORDERED: Insulin Regular, Human 100 UNIT/ML IV PRN (11:17)
[2016-10-08] MEDS ORDERED: Insulin Human Regular 100 UNIT in 0.9 % Sodium Chloride 100 ML IVC SCH (11:30)
--- NOTE | 2016-10-08 14:15 | Internal Med Progress Note ---
<Foreign Solano - Last Filed: 10/08/16 14:12> Date of Encounter: 10/08/16 Time of Encounter: 10:00 - Assessment and plan (1) Adrenal insufficiency Current Visit: Yes Status: Acute Assessment and plan: Patient presented with hypotension, hyponatremia, hyperkalemia. Concerns for adrenal deficiency. Cosyntropin completed which demonstrated a baseline of 9.2 , 30 minute 13.4 and 60 minute 16.8. - Blood pressures remain stable, electrolytes are appropriate. Plan: - Continue hydrocortisone 10 mg every morning and 5 mg at bedtime (2) Hyponatremia Current Visit: No Status: Acute Assessment and plan: Hyponatremia likely secondary to HHS and adrenal insufficiency. This is a mixed picture as the patient demonstrated adrenal insufficiency with cosyntropin test yesterday. He is also is an uncontrolled noncompliant type II diabetic, with average glucoses greater than 200. - Current sodium is 132 correcting sodium with glucose demonstrates a sodium of 140. Plan: -Continue IV fluids - Patient received mineral corticosteroid and glucocorticosteroid placement. (3) Diabetes Current Visit: No Status: Chronic Assessment and plan: Patient's demonstrated to be noncompliance uncontrolled type II diabetic. He has been eating foods beyond his diabetic diet which has proven to be difficult to control his glucoses. Given that his glucose is 551 despite our current regiment we will start him on a insulin drip. Plan: - Insulin drip at 0.1 mg/kg - Every hour glucose checks. - Correctable electrolytes. Qualifiers: Diabetes mellitus type: type 2 Diabetes mellitus complication status: without complication Diabetes mellitus custodial insulin use: with custodial use Qualified Code(s): E11.9 - Type 2 diabetes mellitus without complications ; Z79.4 - skilled nursing (current) use of insulin (4) Chronic obstructive pulmonary disease Current Visit: No Status: Chronic Assessment and plan: Patient is a history of COPD. Currently stable. Plan: -Continue on breathing treatments, DuoNeb nebs every 6 hours when necessary Qualifiers: COPD type: chronic bronchitis Chronic bronchitis type: simple Qualified Code(s): J41.0 - Simple chronic bronchitis (5) Cirrhosis of liver Current Visit: No Status: Chronic Assessment and plan: History of [place]. Likely contributing to chronic medical conditions. Qualifiers: Hepatic cirrhosis type: unspecified hepatic cirrhosis Ascites presence: without ascites Qualified Code(s): K74.60 - Unspecified cirrhosis of liver (6) Obesity (BMI 30-39.9) Current Visit: No Status: Chronic Assessment and plan: Patient is morbidly obese with fatty liver disease, hyperlipidemia, diabetes and hypertension. Weight loss would benefit the patient in improving longevity. (7) CAD (coronary artery disease), [place] coronary artery Current Visit: No Status: Chronic Assessment and plan: Known history of coronary artery disease. Continue aspirin, beta pranay and simvastatin. Qualifiers: [place] vs. transplanted heart: [place] heart Associated angina: angina presence unspecified Qualified Code(s): I25.10 - Atherosclerotic heart disease of [place] coronary artery without angina pectoris (8) Thrombocytopenia Current Visit: No Status: Acute Assessment and plan: Thrombocytopenia likely secondary to liver cirrhosis and chronic medical conditions. - Continue monitoring with daily CBCs. Physical exam without findings of bleeding. (9) Acute kidney injury superimposed on CKD Current Visit: No Status: Acute Assessment and plan: Acute kidney injury slowly improving with IV fluids. Improvement is complicated by uncontrolled diabetes. Plan: - Continue IV rehydration - Continue blood pressure control - We will monitor renal function - Avoid nephrotoxic medications and renally dose antibiotics. - Subjective Interval history: Mr. Ramirez has been seen and evaluated this morning at patient bedside. He is awake, alert and in no acute distress. He denies any discomfort, pains, current problems. He said he continues to have to urinate frequently. When discussing his glucoses he said he I have been not eating right. He described a recent discussion with his PCP where he was released from the [facility] and was on his way home when they stopped to get hamburgers. He said his glucoses usually run high and that is normal for him. Further discussion with nursing staff revealed that the patient has been ordering pizza and eating beyond his diabetic diet. - Constitutional Vitals: Temp Pulse Resp BP Pulse Ox 98.4 F 91 17 146/79 95 10/08/16 11:25 10/08/16 11:25 10/08/16 11:25 10/08/16 11:25 10/08/16 11:25 General appearance: Present: cooperative, A&O X 3, pleasant, no acute distress - Head Head exam: Present: atraumatic, normocephalic - Eye Eye exam: Present: PERRL, conjuntiva pink, sclera anicteric Pupils: Present: PERRL - ENT ENT exam: Present: mucous membranes moist - Neck Neck exam general surgery: Present: supple, trachea midline. Absent: lymphadenopathy - Respiratory Respiratory exam: Present: CTAB. Absent: accessory muscle use, rales, rhonchi, wheezes - Cardiovascular Cardiovascular exam: Present: RRR, +S1, +S2. Absent: diastolic murmur, gallop, rubs, systolic murmur - GI/Abdominal GI/Abdominal exam: Present: normal bowel sounds, soft, no peritoneal signs. Absent: distended, tenderness - Neurological Exam Neurological exam: Present: alert, oriented X3, no focal deficits. Absent: pronater drift, facial droop, speech deficit - Psychiatric Psychiatric exam: Present: normal affect, normal mood Internal Medicine: Result - Labs CBC & Chem 7: 10/08/16 03:20 10/08/16 03:20 Labs: Short CBC 10/08/16 Range/Units 03:20 WBC 2.9 L (4.3-11.1) K/mcL Hgb 10.7 L (12.9-16.9) g/dL Hct 31.6 L (37.5-50.1) % Plt Count 55 L (140-400) K/mcL Neutrophils # 1.4 L (1.6-8.9) K/mcL BMP 10/08/16 03:20 Sodium 132 L Potassium 4.6 H Chloride 103 Carbon Dioxide 22 BUN 28 H Creatinine 1.49 H Glucose 426 H Calcium 8.6 Liver Function 10/08/16 Range/Units 03:20 Total Bilirubin 0.3 (0.2-1.2) mg/dL AST 34 (5-34) Units/L ALT 46 (0-55) Units/L Alkaline Phosphatase 136 H (38-126) Units/L Albumin 2.9 L (3.5-5.0) g/dL - ABG Interpretation ABG results: PT/INR, D-dimer PT 13.6 Seconds (9.4-12.1) H 10/06/16 09:19 Consult Discharge Plan - Plan Referrals: NO,PCP [Primary Care Provider] - <Demetrio Horne - Last Filed: 10/08/16 17:53> Date of Encounter: 10/08/16 - Constitutional Vitals: Temp Pulse Resp BP Pulse Ox 98.1 F 89 17 149/83 97 10/08/16 15:04 10/08/16 15:04 10/08/16 15:04 10/08/16 15:04 10/08/16 15:04 Internal Medicine: Result - Labs CBC & Chem 7: 10/08/16 03:20 10/08/16 03:20 Labs: Short CBC 10/08/16 Range/Units 03:20 WBC 2.9 L (4.3-11.1) K/mcL Hgb 10.7 L (12.9-16.9) g/dL Hct 31.6 L (37.5-50.1) % Plt Count 55 L (140-400) K/mcL Neutrophils # 1.4 L (1.6-8.9) K/mcL BMP 10/08/16 03:20 Sodium 132 L Potassium 4.6 H Chloride 103 Carbon Dioxide 22 BUN 28 H Creatinine 1.49 H Glucose 426 H Calcium 8.6 Liver Function 10/08/16 Range/Units 03:20 Total Bilirubin 0.3 (0.2-1.2) mg/dL AST 34 (5-34) Units/L ALT 46 (0-55) Units/L Alkaline Phosphatase 136 H (38-126) Units/L Albumin 2.9 L (3.5-5.0) g/dL - ABG Interpretation ABG results: PT/INR, D-dimer PT 13.6 Seconds (9.4-12.1) H 10/06/16 09:19 - Attending Attestation I examined this patient and my medical decision-making was reviewed with the Resident Physician, Dr Solano. I agree with the documented findings, disposition and treatment plan as described except to the extent set forth below. Patient reports bilateral knee pain. On examination he has mild soft tissue edema and crepitus to mobilization of both knees. He does have bilateral post knee replacement surgical scars. His glucose was greater than 500 and his diabetes is poorly controlled partly because of dietary indiscretions also because of initiation of therapy with glucocorticoids. Plan: We started the patient on insulin drip. Continue with this and wean off when his glucose is below 200. Monitor blood glucose every 1 hour. I have counseled the patient regarding diabetic diet. We will obtain PT and OT evaluation. Continue with hydrocortisone and repeat orthostatic vital signs in the morning. He is at very high risk for adverse effects F discharged home at this time given his uncontrolled diabetes and requirement for insulin drip as well as recent syncope. He will continue to require monitoring in the hospital for at least 2 more days. I will request inpatient admission. For past medical history family history social history and review of systems please refer to the original H&P dictated during this admission. There are no changes or updates. He is at high risk for morbidity mortality and complications due to IV insulin drip which requires hourly glucose monitoring.
[2016-10-08] MEDS ORDERED: D5% in Water 1,000 ML IVC PRN (16:13)
[2016-10-08 18:43] LABS: BUN/Creatinine Ratio 20 (6-26); Blood Urea Nitrogen 26 mg/dL (8-26); Calcium 8.7 mg/dL (8.6-10.8); Carbon Dioxide 24 mEq/L (19-29); Chloride 104 mEq/L (98-109); Glucose 294 mg/dL (70-99); Osmolality,Calculated 292 (280-300); Potassium 4.7 mEq/L (3.5-4.5); Sodium 133 mEq/L (136-145); eGFR For African Americans > 60 (> 60); eGFR For Non-African Americans 56 (> 60)
[2016-10-08] MEDS: risperiDONE 1 MG TABLET PO SCH (19:47)
[2016-10-08] MEDS: rOPINIRole 1 MG TABLET PO SCH (19:48)
[2016-10-08] MEDS ORDERED: Insulin LISPRO 300 UNITS/3 ML VIAL SQ SCH (21:00)
[2016-10-09] MEDS: *HR* OxyCODONE/APAP 7.5/325 TABLET PO PRN ×2 (02:33→09:20)
[2016-10-09 08:13] LABS: Basophils % 1.1 %; Eosinophils # 0.1 K/mcL (0.0-0.6); Eosinophils % 3.8 %; Immature Granulocytes % 0.4 % (0-4); Lymphocytes # 1.2 K/mcL (0.6-4.6); Lymphocytes % 44.9 %; Mean Corpuscular HGB Conc 33.3 g/dL (31.6-35.5); Mean Corpuscular Hemoglobin 27.8 pg (28.0-33.3); Mean Corpuscular Volume 83.5 fL (83.0-100.0); Mean Platelet Volume 10.4 fL (9.4-12.4); Monocytes # 0.2 K/mcL (0.0-1.3); Monocytes % 8.4 %; Neutrophils # 1.1 K/mcL (1.6-8.9); Red Blood Count 3.95 M/mcL (4.19-5.50); Red Cell Distribution Width 16.8 % (11.5-14.5); Segmented Neutrophils % 41.4 %
[2016-10-09 08:14] LABS: Platelet Count 53 K/mcL (140-400)
[2016-10-09 08:18] LABS: BUN/Creatinine Ratio 20 (6-26); Blood Urea Nitrogen 25 mg/dL (8-26); Calcium 8.8 mg/dL (8.6-10.8); Carbon Dioxide 25 mEq/L (19-29); Chloride 103 mEq/L (98-109); Glucose 227 mg/dL (70-99); Osmolality,Calculated 292 (280-300); Sodium 135 mEq/L (136-145); eGFR For African Americans > 60 (> 60); eGFR For Non-African Americans 59 (> 60)
--- NOTE | 2016-10-09 09:08 | Discharge Summary ---
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 Qualified Code(s): E11.9 - Type 2 diabetes mellitus without complications ; Z79.4 - terminal worker (current) use of insulin (4) Chronic obstructive pulmonary disease Priority: Secondary Status: Chronic Qualifiers: COPD type: chronic bronchitis Chronic bronchitis type: simple Qualified Code(s): J41.0 - Simple chronic bronchitis (5) Cirrhosis of liver Priority: Secondary Status: Chronic Qualifiers: Hepatic cirrhosis type: unspecified hepatic cirrhosis Ascites presence: without ascites Qualified Code(s): K74.60 - Unspecified cirrhosis of liver (6) Obesity (BMI 30-39.9) Priority: Secondary Status: Chronic (7) CAD (coronary artery disease), [place] coronary artery Priority: Secondary Status: Chronic Qualifiers: [place] vs. transplanted heart: [place] heart Associated angina: angina presence unspecified Qualified Code(s): I25.10 - Atherosclerotic heart disease of [place] coronary artery without angina pectoris (8) Thrombocytopenia Priority: Secondary Status: Acute (9) Acute kidney injury superimposed on CKD Priority: Primary Status: Acute - Discharge Medications Home Medications: Cholecalciferol (Vitamin D3) [Vitamin D] 1,000 unit PO DAILY 05/13/15 [History] Insulin ASPART [NovoLOG] 48 - 94 unit SQ TIDWM 05/13/15 [History] Ropinirole HCl [Requip] 2 mg PO HS 05/13/15 [History] Venlafaxine HCl [Effexor Xr] 75 mg PO DAILY 05/13/15 [History] Aspirin Enteric Coated [Aspirin EC] 81 mg PO DAILY 11/13/15 [History] Atorvastatin [Lipitor] 40 mg PO HS 11/13/15 [History] Insulin Glargine,Hum.rec.anlog [Lantus Solostar] 160 unit SQ BID 11/13/15 [ History] Lactulose 45 ml PO TID 11/13/15 [History] Omeprazole [PriLOSEC] 20 mg PO DAILY 11/13/15 [History] Tamsulosin [Flomax] 0.4 mg PO DAILY 11/13/15 [History] Furosemide [Lasix] 40 mg PO DAILY 05/16/16 [History] RisperiDONE [Risperdal] 3 mg PO HS 05/16/16 [History] Rivaroxaban [Xarelto] 10 mg PO DAILY 05/16/16 [History] Sertraline [Zoloft] 50 mg PO DAILY 05/16/16 [History] Atenolol [Tenormin] 50 mg PO DAILY 05/29/16 [History] LevETIRAcetam [Keppra] 750 mg PO BID 06/07/16 [History] Ipratropium/Albuterol Neb [Duoneb] 3 ml IH Q6HR PRN 08/10/16 [History] Rifaximin [Xifaxan] 200 mg PO BID tablet 08/19/16 [Rx] Dicyclomine [Bentyl] 10 mg PO QID PRN #20 capsule 09/01/16 [Rx] Ondansetron HCl [Zofran] 4 mg PO Q6HR PRN #20 tablet 09/01/16 [Rx] HYDROcodone/Acet 5/325 mg [[place] 5-325 mg] 1 tab PO BID PRN #8 tablet 09/14/16 [ Rx] Lisinopril [Zestril] 2.5 mg PO HS #0 09/14/16 [Rx] Hydrocortisone [Cortef] 5 mg PO HS #0 tablet 10/09/16 [Rx] Hydrocortisone [Cortef] 10 mg PO QAM #0 tablet 10/09/16 [Rx] Allergies/Adverse Reactions: Allergies Iodinated Contrast Media - Oral and Allergy (Verified 10/06/16 13:24) Difficulty Breathing ketorolac [From Toradol] Allergy (Verified 10/06/16 13:24) Nausea Penicillins Allergy (Verified 10/06/16 13:24) Rash butorphanol [From Stadol] Adverse Reaction (Verified 10/06/16 13:24) Nausea celecoxib Adverse Reaction (Verified 10/06/16 13:24) [facility] gabapentin Adverse Reaction (Verified 10/06/16 13:24) unknown [facility] list. mirtazapine Adverse Reaction (Verified 10/06/16 13:24) [facility] tramadol Adverse Reaction (Verified 10/06/16 13:24) [facility] vancomycin Adverse Reaction (Verified 10/06/16 13:24) [facility] Date of admission: 10/08/16 17:51 Primary care physician: PCP NO Discharging clinician: Foreign Solano Anticipated date of discharge: 10/09/16 - Patient Status Disposition: Transfer [facility] Condition: Fair Functional capacity at discharge: independent ambulation Overall status at discharge: patient is progressing back to baseline - Discharge Instructions Instructions: Syncope (DC) Follow Up With: NO,PCP [Primary Care Provider] - Additional Instructions: Recommend follow-up with her primary care provider in the next 3-5 days. Check blood pressure daily Take medications as prescribed. I recommended moderate exercise as tolerated and healthy diabetic diet. - Diet and Activity Diet: diabetic diet, low fat, low cholesterol Interval History: Mr. Ramirez is a 66 year old male with diabetes, hypertension, hyperlipidemia, history of PE on several toe, CHF, COPD, liver disease, who presented to the emergency department with complaints of lightheadedness, and passing out after standing up from the breakfast table this morning. He was admitted to general medical floor with hypotension with a blood pressure of 80 over 40s on arrival he received 2 L of normal saline. He was also hyponatremic with a sodium 124 hyperglycemic with a blood sugar of 490, found to have acute kidney injury on chronic kidney disease and hyperkalemia. He was started on subcutaneous insulin and nothing by mouth. He was given calcium gluconate and sodium bicarbonate. He underwent cosyntropin testing and found to have adrenal insufficiency and was started on hydrocortisone 10 mg in a.m. and 5 mg in the PM. There was significant difficulty controlling Mr. Worthington's glucose with subcutaneous insulin. He was ordering in pizza and eating above his prescribed diabetic diet. His glucose reached 551 and he required an insulin drip to bring his glucoses back down to his baseline of 200. He was instructed to abide by his diabetic diet while in the hospital and discussion about healthy eating upon discharge was discussed with the patient. His subcutaneous insulin was readjusted and he remained a stable glucose around 200 overnight. His blood pressure remains stable since starting by mouth steroids. His hyponatremia improved, his acute kidney injury resolved, hyperkalemia resolved. He was seen and evaluated on 10/09/2016 and deemed stable to return back to the [facility]. Hospital course: Mr. Ramirez is a 66 year old male - Time Spent with Patient Total time spent providing and/or coordinating discharge services: - Constitutional Vitals: Temp Pulse Resp BP Pulse Ox 97.7 F 83 16 136/79 96 10/09/16 07:38 10/09/16 07:38 10/09/16 07:38 10/09/16 07:38 10/09/16 07:38 General appearance: Present: cooperative, A&O X 3, morbidly obese, pleasant, no acute distress - Head Head exam: Present: atraumatic, normocephalic - Eye Eye exam: Present: PERRL, conjuntiva pink, sclera anicteric Pupils: Present: PERRL - ENT ENT exam: Present: mucous membranes moist - Neck Neck exam general surgery: Present: supple, trachea midline. Absent: lymphadenopathy - Respiratory Respiratory exam: Present: CTAB. Absent: accessory muscle use, rales, rhonchi, wheezes - Cardiovascular Cardiovascular exam: Present: RRR, +S1, +S2. Absent: diastolic murmur, gallop, rubs, systolic murmur - GI/Abdominal GI/Abdominal exam: Present: normal bowel sounds, soft, no peritoneal signs. Absent: distended, tenderness - Extremities Exam Extremities exam: Present: warm, radial pulses palpable and symetrical. Absent : calf tenderness, cyanotic, pedal edema - Neurological Exam Neurological exam: Present: alert, oriented X3, no focal deficits. Absent: pronater drift, facial droop, speech deficit - Psychiatric Psychiatric exam: Present: normal affect, normal mood <Demetrio Horne - Last Filed: 10/09/16 19:18> Date of Encounter: 10/09/16 Date of admission: 10/08/16 17:51 Primary care physician: PCP NO Hospital course: Mr. Ramirez is a 66 year old male - Time Spent with Patient Total time spent providing and/or coordinating discharge services: - Constitutional Vitals: Temp Pulse Resp BP Pulse Ox 97.5 F L 91 16 156/89 97 10/09/16 11:34 10/09/16 11:34 10/09/16 11:34 10/09/16 11:34 10/09/16 11:34 - Attending Attestation I examined this patient and my medical decision-making was reviewed with the Resident Physician, Dr. Solano. I agree with the documented findings, disposition and treatment plan as described except to the extent set forth below. The patient was admitted to our service after he suffered an episode of syncope. He was found to be hypotensive. He was dehydrated and had uncontrolled diabetes. His laboratory studies revealed electrolyte abnormalities including hyperkalemia and hyponatremia. He was diagnosed with adrenal insufficiency based on an appropriate ACTH stimulation test results and clinical picture. He was started on oral hydrocortisone. He required treatment with IV insulin drip due to uncontrolled diabetes. Currently his blood glucose is controlled. He was counseled about the importance of dietary and medication compliance. Given his high risk for recurrence and multiple readmissions, inadequate medication and diet adherence and his poor functional status secondary to chronic pain and bilateral knee replacement he would benefit from continued inpatient hospitalization at the [facility]. He will be transferred to the [facility] facility in [place] this afternoon.
[2016-10-09] MEDS: Aspirin Enteric Coated 81 MG Tablet PO SCH (09:17)
[2016-10-09] MEDS: *HR* Rivaroxaban 10 MG TABLET PO SCH (09:17)
[2016-10-09] MEDS: Venlafaxine XR (24 HR) 75 MG CAP.ER.24H PO SCH (09:17)
[2016-10-09] MEDS: levETIRAcetam 250 MG TABLET PO SCH (09:17)
[2016-10-09] MEDS: Hydrocortisone 10 MG TABLET PO SCH (09:17)
[2016-10-09] MEDS: Insulin DETEMIR 100 UNIT/ML X5UNITS SQ SCH (09:22)
[2016-10-09] MEDS: Insulin LISPRO 300 UNITS/3 ML VIAL SQ SCH ×4 (09:22→12:09)
[2016-10-09] MEDS: Lactulose Oral Soln 20 GM/30 ML UDC PO SCH (09:31)
--- NOTE | 2016-10-09 09:43 | Physician Discharge Referral ---
ExtendedCare Referral Info Provider in Charge after Transfer: PCP Institutional Level of Care: Skilled - Diagnosis (1) Adrenal insufficiency Priority: Primary Status: Acute (2) Hyponatremia Priority: Primary Status: Acute (3) Diabetes Priority: Primary Status: Chronic (4) Chronic obstructive pulmonary disease Priority: Secondary Status: Chronic (5) Cirrhosis of liver Priority: Secondary Status: Chronic (6) Obesity (BMI 30-39.9) Priority: Secondary Status: Chronic (7) CAD (coronary artery disease), [place] coronary artery Priority: Secondary Status: Chronic (8) Thrombocytopenia Priority: Primary Status: Acute (9) Acute kidney injury superimposed on CKD Priority: Primary Status: Acute - Transfer Medications Home Medications: Cholecalciferol (Vitamin D3) [Vitamin D] 1,000 unit PO DAILY 05/13/15 [History] Insulin ASPART [NovoLOG] 48 - 94 unit SQ TIDWM 05/13/15 [History] Ropinirole HCl [Requip] 2 mg PO HS 05/13/15 [History] Venlafaxine HCl [Effexor Xr] 75 mg PO DAILY 05/13/15 [History] Aspirin Enteric Coated [Aspirin EC] 81 mg PO DAILY 11/13/15 [History] Atorvastatin [Lipitor] 40 mg PO HS 11/13/15 [History] Insulin Glargine,Hum.rec.anlog [Lantus Solostar] 160 unit SQ BID 11/13/15 [ History] Lactulose 45 ml PO TID 11/13/15 [History] Omeprazole [PriLOSEC] 20 mg PO DAILY 11/13/15 [History] Tamsulosin [Flomax] 0.4 mg PO DAILY 11/13/15 [History] Furosemide [Lasix] 40 mg PO DAILY 05/16/16 [History] RisperiDONE [Risperdal] 3 mg PO HS 05/16/16 [History] Rivaroxaban [Xarelto] 10 mg PO DAILY 05/16/16 [History] Sertraline [Zoloft] 50 mg PO DAILY 05/16/16 [History] Atenolol [Tenormin] 50 mg PO DAILY 05/29/16 [History] LevETIRAcetam [Keppra] 750 mg PO BID 06/07/16 [History] Ipratropium/Albuterol Neb [Duoneb] 3 ml IH Q6HR PRN 08/10/16 [History] Rifaximin [Xifaxan] 200 mg PO BID tablet 08/19/16 [Rx] Dicyclomine [Bentyl] 10 mg PO QID PRN #20 capsule 09/01/16 [Rx] Ondansetron HCl [Zofran] 4 mg PO Q6HR PRN #20 tablet 09/01/16 [Rx] HYDROcodone/Acet 5/325 mg [[place] 5-325 mg] 1 tab PO BID PRN #8 tablet 09/14/16 [ Rx] Lisinopril [Zestril] 2.5 mg PO HS #0 09/14/16 [Rx] Hydrocortisone [Cortef] 5 mg PO HS #0 tablet 10/09/16 [Rx] Hydrocortisone [Cortef] 10 mg PO QAM #0 tablet 10/09/16 [Rx] Allergies/Adverse Reactions: Allergies Iodinated Contrast Media - Oral and Allergy (Verified 10/06/16 13:24) Difficulty Breathing ketorolac [From Toradol] Allergy (Verified 10/06/16 13:24) Nausea Penicillins Allergy (Verified 10/06/16 13:24) Rash butorphanol [From Stadol] Adverse Reaction (Verified 10/06/16 13:24) Nausea celecoxib Adverse Reaction (Verified 10/06/16 13:24) unknown listed on [place] med rec gabapentin Adverse Reaction (Verified 10/06/16 13:24) unknown [facility] list[facility] mirtazapine Adverse Reaction (Verified 10/06/16 13:24) [facility] tramadol Adverse Reaction (Verified 10/06/16 13:24) [facility] vancomycin Adverse Reaction (Verified 10/06/16 13:24) unknown listed on [place] med rec - Respiratory Orders Smoking Cessation: Smoking cessation has been advised. For more information, call the [place] Tobacco Quit Line at 8-685-GMHT-NOW. - Ancillary Orders May use pressure relief devices daily prn, May consult with Dentist, Importer Or Exporter, Retirement Sales Consultant PRN - Advance Directives Living Will: No Power of Deposition Operator: No Code Status: Full Code - Mobility Orders Ambulate - Rehabiliation Orders Rehab Potential: Good Rehab Orders: Evaluation for Physical Therapy, Evaluation for Occupational Therapy - Treatments Skin tear care topically daily PRN per policy, Fleet enema rectally every other day PRN cleansing purposes - Diet Orders No Added Salt (PEREZ) (Diabetic diet) CERTIFICATION: I certify that the transfer of the above named patient to an Extended Care Facility is necessary for the continuing treatment of the diagnosis listed. The above information is true and accurate reflection of patient's current condition. Confidential - Redisclosure prohibited without a patient's written consent.
[2016-10-09 11:39] VITALS: BP 156/89
== END 2016-10-09 13:36 | DRG 644 ==
LOC: 3BNU 08:32 → EMEROO 08:32 → SUATTDRO 13:07 → 3BNU 13:27
PROVIDERS: ADMIT Hospitalist; ATTEND Internal Medicine

== ENCOUNTER 2016-10-27 08:46 | Inpatient (IN) ==
--- NOTE | 2016-10-27 09:17 | Emergency Department Note ---
Disposition Clinical Impression: Poorly controlled diabetes mellitus Disposition: Still a Patient Condition: Fair [facility]errals: [facility] Care Provider[facility] - Forms: ED Satisfaction Letter Time of Disposition: 11:17 General Adult HPI - General Chief complaint: ED Syncope Stated complaint: Almost passed out Time Seen by Provider: 10/27/16 08:49 Source: patient, EMS Mode of arrival: EMS Limitations: other Nursing Notes Reviewed: Yes Vital Signs Reviewed: Yes - History of Present Illness HPI Narrative: Patient brought to the ED by EMS from intermediate. [facility]. He states he is having weakness, felt like he was going to pass out, thinks his blood sugar is high. He states he has had problems with his blood sugar. Patient is awake and alert however, somewhat drowsy. He is requesting to be transferred to the ED. He is not wishing anything to be done at this time. I explained that once we start the process of [facility] the [facility] it may take several hours and if he is ill we need to start treatment sooner. He is wanting to call someone to pick him up and take him to the [facility]. If he decides to allow us to start treatment we will order labs, and start the workup . Onset (ago): unknown Pain Severity: similar to prior episodes Pain Scale: 7 Consistency: constant Improves with: nothing Worsens with: nothing Associated symptoms: Reports: denies other symptoms - Related Data Home Medications Medication Instructions Recorded Confirmed Cholecalciferol (Vitamin D3) 1,000 unit PO DAILY 05/13/15 10/06/16 [Vitamin D] Insulin ASPART [NovoLOG] 48 - 94 unit SQ TIDWM 05/13/15 10/06/16 Ropinirole HCl [Requip] 2 mg PO HS 05/13/15 10/06/16 Venlafaxine HCl [Effexor Xr] 75 mg PO DAILY 05/13/15 10/06/16 Aspirin Enteric Coated [Aspirin EC] 81 mg PO DAILY 11/13/15 10/06/16 Atorvastatin [Lipitor] 40 mg PO HS 11/13/15 10/06/16 Insulin Glargine,Hum.rec.anlog 160 unit SQ BID 11/13/15 10/06/16 [Lantus Solostar] Lactulose 45 ml PO TID 11/13/15 10/06/16 Omeprazole [PriLOSEC] 20 mg PO DAILY 11/13/15 10/06/16 Tamsulosin [Flomax] 0.4 mg PO DAILY 11/13/15 10/06/16 Furosemide [Lasix] 40 mg PO DAILY 05/16/16 10/06/16 Rivaroxaban [Xarelto] 10 mg PO DAILY 05/16/16 10/06/16 Sertraline [Zoloft] 50 mg PO DAILY 05/16/16 10/06/16 risperiDONE [Risperdal] 3 mg PO HS 05/16/16 10/06/16 Atenolol [Tenormin] 50 mg PO DAILY 05/29/16 10/06/16 LevETIRAcetam [Keppra] 750 mg PO BID 06/07/16 10/06/16 Ipratropium/Albuterol Neb [Duoneb] 3 ml IH Q6HR PRN 08/10/16 10/06/16 Previous Rx's Medication Instructions Recorded Rifaximin [Xifaxan] 200 mg PO BID tablet 08/19/16 Dicyclomine [Bentyl] 10 mg PO QID PRN #20 capsule 09/01/16 Ondansetron HCl [Zofran] 4 mg PO Q6HR PRN #20 tablet 09/01/16 HYDROcodone/Acet 5/325 mg [[place] 1 tab PO BID PRN #8 tablet 09/14/16 5-325 mg] Lisinopril [Zestril] 2.5 mg PO HS #0 09/14/16 Hydrocortisone [Cortef] 5 mg PO HS #0 tablet 10/09/16 Hydrocortisone [Cortef] 10 mg PO QAM #0 tablet 10/09/16 Allergies Allergy/AdvReac Type Severity Reaction Status Date / Time Iodinated Contrast Media - Allergy Difficulty Verified 10/06/16 13:24 Oral and Breathing ketorolac [From Toradol] Allergy Nausea Verified 10/06/16 13:24 Penicillins Allergy Rash Verified 10/06/16 13:24 butorphanol [From Stadol] AdvReac Nausea Verified 10/06/16 13:24 celecoxib AdvReac unknown Verified 10/06/16 13:24 gabapentin AdvReac unknown Verified 10/06/16 13:24 mirtazapine AdvReac unknown Verified 10/06/16 13:24 tramadol AdvReac unknown Verified 10/06/16 13:24 vancomycin AdvReac unknown Verified 10/06/16 13:24 All systems ED: reviewed and negative except as stated. Constitutional: Reports: weakness Eyes: Denies: eye pain, eye discharge, vision change ENT ED: Denies: ear pain, throat pain, dental pain, hearing loss, epistaxis, congestion, dysphagia Cardiovascular: Denies: chest pain, palpitations, dyspnea on exertion, edema, syncope Respiratory: Denies: cough, dyspnea, wheezes, hemoptysis, stridor Gastrointestinal: Reports: abdominal pain, nausea. Denies: vomiting, diarrhea, constipation, hematemesis, melena, hematochezia Musculoskeletal: Denies: back pain, neck pain, arthralgia, myalgia Integumentary: Reports: other (extremely dry, scaly especially lower extremitites ) Neurological: Reports: weakness. Denies: headache, numbness, paresthesias, confusion, abnormal gait, vertigo Psychiatric: Denies: anxiety, depression, suicidal thoughts, homicidal thoughts , auditory hallucinations, visual hallucinations Endocrine: Reports: fatigue, polydipsia, polyuria Hematological/Lymphatic: Denies: easy bleeding, easy bruising Past Medical History - Past Medical History Attestation: Yes The following information was validated with the patient. Source: patient, nursing notes reviewed Medical history: Reports: arthritis, cirrhosis, CHF, COPD, coronary artery disease, diabetes, GERD, hyperlipidemia, hypertension, liver disease, osteoporosis, TIA Surgical history: Reports: appendectomy, cholecystectomy, herniorrhaphy, knee replacement, other Psychiatric history: Reports: ADHD, previous psychiatric hospitalization - Social History Smoking Status: Never smoker Smokeless Tobacco Status: No Alcohol use: Reports: none Drug use: Reports: none Physical Exam - General Limitations: other General appearance: alert - Head Head exam: atraumatic, normocephalic, normal inspection - Eye Eye exam: Present: normal appearance, PERRL, EOMI - ENT ENT exam: normal exam, normal oropharynx, mucous membranes moist - Neck Neck exam: Present: normal inspection, full ROM, trachea midline. Absent: tenderness, meningismus, lymphadenopathy, thyromegaly - Chest Chest inspection: Present: normal inspection, symmetric chest wall rise - Respiratory Respiratory exam: Present: normal lung sounds bilaterally - Cardiovascular Cardiovascular exam: Present: regular rate, normal rhythm, normal heart sounds. Absent: systolic murmur, diastolic murmur, JVD - Abdominal Exam Abdominal exam: Present: Non-Tender, distention, diminished bowel sounds. Absent: guarding, rebound - Extremities Exam Extremities exam: Present: normal inspection, full ROM. Absent: tenderness, pedal edema - Expanded Lower Extremity Exam Neurovascular/Tendon exam: Absent: normal fine/light touch, foot drop Gait: not tested/not observed - Back Exam Back exam: Present: normal inspection, full ROM. Absent: tenderness - Neurological Exam Neurological exam: Present: alert, oriented X3 - Psychiatric Psychiatric exam: Present: normal affect, normal mood Course - Reevaluation(s) Reevaluation #1: spoke with Fabian Hernández nurse uniform force captain at the [facility]. He advised to complete work up, make determination if he needed admitted or not and then call them back if he warrants admission to their facility . Explained this to the patient. Time: 10:11 Vital Signs Temperature 97.7 F 10/27/16 08:48 Pulse Rate 102 10/27/16 08:48 Respiratory Rate 16 10/27/16 08:48 Blood Pressure 129/69 10/27/16 08:48 O2 Sat by Pulse Oximetry 96 10/27/16 08:48 Temperature 97.7 F 10/27/16 08:48 Pulse Rate 96 10/27/16 12:47 Respiratory Rate 16 10/27/16 12:47 Blood Pressure 122/66 10/27/16 12:47 O2 Sat by Pulse Oximetry 98 10/27/16 12:47 Oxygen Delivery Oxygen Delivery Room Air Medical Decision Making - Lab Data Result diagrams: 10/27/16 09:41 10/27/16 09:41 Lab Results 10/27/16 10/27/16 10/27/16 Range/Units 09:41 09:41 09:41 WBC 4.3 (4.3-11.1) K/mcL RBC 4.38 (4.19-5.50) M/mcL Hgb 12.3 L (12.9-16.9) g/dL Hct 36.0 L (37.5-50.1) % MCV 82.2 L (83.0-100.0) fL MCH 28.1 (28.0-33.3) pg MCHC 34.2 (31.6-35.5) g/dL RDW 15.8 H (11.5-14.5) % Plt Count 71 L (140-400) K/mcL MPV 10.4 (9.4-12.4) fL Immature Gran % 0.2 (0-4) % Seg Neutrophils % 62.7 % Lymphocytes % 23.3 % Monocytes % 9.6 % Eosinophils % 3.7 % Basophils % 0.5 % Neutrophils # 2.7 (1.6-8.9) K/mcL Lymphocytes # 1.0 (0.6-4.6) K/mcL Monocytes # 0.4 (0.0-1.3) K/mcL Eosinophils # 0.2 (0.0-0.6) K/mcL Basophils # 0.0 (0.0-0.2) K/mcL Platelet Estimate Decreased L (Normal) Immature Plt Fraction 4.5 (1.1-6.1) % PT 13.4 H (9.4-12.1) Seconds INR 1.2 APTT 33.4 (26.0-36.0) Seconds Sodium 129 L (136-145) mEq/L Potassium 5.0 H (3.5-4.5) mEq/L Chloride 99 (98-109) mEq/L Carbon Dioxide 21 (19-29) mEq/L BUN 49 H (8-26) mg/dL Creatinine 1.65 H (0.72-1.25) mg/dL Est GFR ( Amer) 51 L (> 60) Est GFR (Non-Af Amer) 42 L (> 60) BUN/Creatinine Ratio 30 H (6-26) Glucose 332 H (70-99) mg/dL Calculated Osmolality 294 (280-300) Calcium 10.3 (8.6-10.8) mg/dL Total Bilirubin 0.9 (0.2-1.2) mg/dL AST 53 H (5-34) Units/L ALT 48 (0-55) Units/L Alkaline Phosphatase 144 H (38-126) Units/L Troponin I (0-0.03) ng/mL Serum Total Protein 8.0 (6.0-8.3) g/dL Albumin 3.6 (3.5-5.0) g/dL Globulin 4.4 H (2.4-3.5) g/dL Albumin/Globulin Ratio 0.8 L (1.1-2.2) 10/27/16 Range/Units 09:41 WBC (4.3-11.1) K/mcL RBC (4.19-5.50) M/mcL Hgb (12.9-16.9) g/dL Hct (37.5-50.1) % MCV (83.0-100.0) fL MCH (28.0-33.3) pg MCHC (31.6-35.5) g/dL RDW (11.5-14.5) % Plt Count (140-400) K/mcL MPV (9.4-12.4) fL Immature Gran % (0-4) % Seg Neutrophils % % Lymphocytes % % Monocytes % % Eosinophils % % Basophils % % Neutrophils # (1.6-8.9) K/mcL Lymphocytes # (0.6-4.6) K/mcL Monocytes # (0.0-1.3) K/mcL Eosinophils # (0.0-0.6) K/mcL Basophils # (0.0-0.2) K/mcL Platelet Estimate (Normal) Immature Plt Fraction (1.1-6.1) % PT (9.4-12.1) Seconds INR APTT (26.0-36.0) Seconds Sodium (136-145) mEq/L Potassium (3.5-4.5) mEq/L Chloride (98-109) mEq/L Carbon Dioxide (19-29) mEq/L BUN (8-26) mg/dL Creatinine (0.72-1.25) mg/dL Est GFR ( Amer) (> 60) Est GFR (Non-Af Amer) (> 60) BUN/Creatinine Ratio (6-26) Glucose (70-99) mg/dL Calculated Osmolality (280-300) Calcium (8.6-10.8) mg/dL Total Bilirubin (0.2-1.2) mg/dL AST (5-34) Units/L ALT (0-55) Units/L Alkaline Phosphatase (38-126) Units/L Troponin I 0.00 (0-0.03) ng/mL Serum Total Protein (6.0-8.3) g/dL Albumin (3.5-5.0) g/dL Globulin (2.4-3.5) g/dL Albumin/Globulin Ratio (1.1-2.2) [email or web address] - Stuart Situation: Demographics Background: Presenting Complaint, Relevant PMH, Meds, & Allergies Assessment: Vital Signs, Course and respsone to treatment, Patient/Family Expectation, Outstanding Labs Recommendation: Recommendation based on pending studies, treatments, or consults SIgor Report Given to: Heladio Handley Repor Time: 11:16
[2016-10-27] MEDS ORDERED: 0.9 % Sodium Chloride 1,000 ML IVC ONE (09:18)
[2016-10-27 09:48] LABS: Hemoglobin 12.3 g/dL (12.9-16.9); Immature Granulocytes % 0.2 % (0-4); Immature Platelets 4.5 % (1.1-6.1); Lymphocytes % 23.3 %; Mean Corpuscular HGB Conc 34.2 g/dL (31.6-35.5); Mean Corpuscular Hemoglobin 28.1 pg (28.0-33.3); Mean Corpuscular Volume 82.2 fL (83.0-100.0); Mean Platelet Volume 10.4 fL (9.4-12.4); Monocytes % 9.6 %; Platelet Count 71 K/mcL (140-400); Red Blood Count 4.38 M/mcL (4.19-5.50); Red Cell Distribution Width 15.8 % (11.5-14.5); Segmented Neutrophils % 62.7 %
[2016-10-27 09:49] LABS: Basophils % 0.5 %; Eosinophils # 0.2 K/mcL (0.0-0.6); Eosinophils % 3.7 %; Monocytes # 0.4 K/mcL (0.0-1.3); Neutrophils # 2.7 K/mcL (1.6-8.9)
[2016-10-27 09:54] LABS: INR 1.2; Prothrombin Time 13.4 Seconds (9.4-12.1)
[2016-10-27 09:57] LABS: Activated Partial Thrombo Time 33.4 Seconds (26.0-36.0)
[2016-10-27 10:02] LABS: Albumin 3.6 g/dL (3.5-5.0); Albumin/Globulin Ratio 0.8 (1.1-2.2); Bilirubin,Total 0.9 mg/dL (0.2-1.2); Calcium 10.3 mg/dL (8.6-10.8); Globulin 4.4 g/dL (2.4-3.5)
[2016-10-27 10:09] LABS: Platelet Estimate Decreased (Normal)
--- NOTE | 2016-10-27 11:18 | Emergency Department Note ---
START Narrative - START START: I assumed care when the patient was checked out to me and spent direct face-to- face time with the patient, and agree with the APC findings assessment and plan. 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 On my examination he demonstrates no abdominal pain. He has not complained of chest pain or shortness of breath. He has a minor abrasion on his left knee. He does not remember when his last tetanus shot was. Impression: Dehydration Near-syncope Diabetes mellitus Hyperglycemia Acute kidney injury Anemia Knee abrasion/Left Cirrhosis of the liver Tachycardia Cardiomegaly The patient did not want to go to the [facility], transfer was offered but he declined and wanted to stay here. IV fluids were given. The patient seems to be dehydrated based on his elevated BUN and creatinine, MJ is noted, hyperglycemia noted. A stone the patient's near syncopal event, apparent dehydration, acute kidney injury and hyperglycemia, I thought it be appropriate to admit the patient the hospital. I discussed the case with the hospitalist on-call who has accepted the patient to their care. The patient is currently stable pending admission.
[2016-10-27] MEDS ORDERED: Tdap (Boostrix) Vaccine 0.5 ML SYRINGE IM ONE (11:55)
[2016-10-27] MEDS ORDERED: *HR* Morphine 2 MG/ML SYRINGE IVP ONE ×2 (13:23→20:48)
[2016-10-27] MEDS ORDERED: Ondansetron 4 MG/2 ML VIAL IVP ONE (13:23)
[2016-10-27] MEDS ORDERED: Naloxone 0.4 MG/ML INJ IVP PRN (14:41)
[2016-10-27] MEDS ORDERED: Ondansetron ODT 4 MG TAB.RAPDIS SL PRN (14:41)
--- NOTE | 2016-10-27 15:26 | Internal Med History&Physical ---
Date of Encounter: 10/27/16 Time of Encounter: 15:23 Assessment and Plan (1) Near syncope Current visit: Yes Status: Acute details unclear but apparently felt like he "was going to pass out". Etiology unknown, possibly dehydration. Carotids, echo, orthostatics, head CT pending (2) Encephalopathy Current visit: Yes Status: Acute drowsy on arrival. Baseline LOC X4. Does have liver hx, possible fall prior to admission. Check head CT, ammonia level (3) Cirrhosis of liver Current visit: No Status: Chronic per hx. LFTs elevated but appear at baseline. INR and Albumin normal. Cont home rifaximin, lactulose. Ammonia level pending Qualifiers: Hepatic cirrhosis type: unspecified hepatic cirrhosis Ascites presence: without ascites Qualified Code(s): K74.60 - Unspecified cirrhosis of liver (4) Thrombocytopenia Current visit: Yes Status: Acute PLTS 71 (baseline 50-60). No active/abnormal bleeding. Monitor closely with anticoagulation. (5) Adrenal insufficiency Current visit: Yes Status: Acute per hx. BP stable, cont home steroids. (6) Hyponatremia Current visit: Yes Status: Acute NA 129, drowsy but neurologically intact. Suspect secondary to adrenal insuff. Cont steroids. Monitor repeat Na (7) Acute kidney injury Current visit: No Status: Acute appears to have known CKD. Cr 1.6 (has been as high as 5 in 09/2016). IV fluids, hold nephrotoxic agents. Monitor repeat CMP (8) Pulmonary air embolism Current visit: Yes Status: Acute per hx. Cont home Xarelto. Qualifiers: Encounter type: sequela Qualified Code(s): T79.0XXS - Air embolism ( traumatic), sequela (9) DM2 (diabetes mellitus, type 2) Current visit: No Status: Chronic per hx. Cont home insulin regimen. Monitor blood sugar and titrate PRN Qualifiers: Diabetes mellitus complication status: with hyperglycemia Diabetes mellitus senior living insulin use: with exterminator termite use Qualified Code(s): E11.65 - Type 2 diabetes mellitus with hyperglycemia; Z79.4 - senior living (current) use of insulin (10) CAD (coronary artery disease) Current visit: No Status: Chronic per hx. Asymptomatic, denies CP. EKG with sinus tachycardia, no acute ST changes (likely dehydration). Cont home ASA, statin, BB Qualifiers: Coronary Disease-Associated Artery/Lesion type: [place] artery [place] vs. transplanted heart: menominee heart Associated angina: without angina Qualified Code(s): I25.10 - Atherosclerotic heart disease of [place] coronary artery without angina pectoris (11) HTN (hypertension) Current visit: No Status: Chronic per hx. BP variable but controlled. Cont home BP medications. Monitor BP and titrate PRN Qualifiers: Hypertension type: essential hypertension Qualified Code(s): I10 - Essential (primary) hypertension (12) DVT prophylaxis Current visit: No Status: Acute SCDs Internal Medicine - H&P: HPI Chief complaint: just not feeling right History of present illness: Mr. Ramirez is a 66 year old male with PMH non-alcoholic fatty liver disease, diabetes, adrenal insufficiency and CAD who presented to [facility] from long term with apparent near syncope event. He was found to have worsening renal function and was confused, therefore he was admitted for further work-up and treatment. Information obtained from chart review and patient report. Per ED report, patient apparently reported feeling weak and like he was foing to pass out prior to arrival. No family, long term staff at bedside for collateral. On my exam he is drowsy and alrt to self and place only. He does not give clear description as to what happened that brought him to ER. He says he just didn't feel well, says he stayed up to late. He does recognize that he is confused. Says he is cold and wants to sleep. No CP or SOB Past Med Surg Social Fam HX - Past Medical History Medical history: arthritis, cirrhosis, CHF, COPD, coronary artery disease, diabetes, GERD, hyperlipidemia, hypertension, liver disease, osteoporosis, TIA Psychiatric history: ADHD, previous psychiatric hospitalization - Past Surgical History Surgical History: appendectomy, cholecystectomy, herniorrhaphy, knee replacement , other - Social History Smoking Status: Never smoker Smokeless Tobacco Status: No Alcohol use: none Drug use: none - Family History Mother Living Status: Hx Family Cancer: Yes Father Living Status: Internal Medicine - H&P: Meds Cholecalciferol (Vitamin D3) [Vitamin D] 1,000 unit PO DAILY 05/13/15 [History] Insulin ASPART [NovoLOG] 48 - 94 unit SQ TIDWM 05/13/15 [History] Ropinirole HCl [Requip] 2 mg PO HS 05/13/15 [History] Venlafaxine HCl [Effexor Xr] 75 mg PO DAILY 05/13/15 [History] Aspirin Enteric Coated [Aspirin EC] 81 mg PO DAILY 11/13/15 [History] Atorvastatin [Lipitor] 40 mg PO HS 11/13/15 [History] Insulin Glargine,Hum.rec.anlog [Lantus Solostar] 160 unit SQ BID 11/13/15 [ History] Lactulose 45 ml PO TID 11/13/15 [History] Omeprazole [PriLOSEC] 20 mg PO DAILY 11/13/15 [History] Tamsulosin [Flomax] 0.4 mg PO DAILY 11/13/15 [History] Furosemide [Lasix] 40 mg PO DAILY 05/16/16 [History] Rivaroxaban [Xarelto] 10 mg PO DAILY 05/16/16 [History] Sertraline [Zoloft] 50 mg PO DAILY 05/16/16 [History] risperiDONE [Risperdal] 3 mg PO HS 05/16/16 [History] Atenolol [Tenormin] 50 mg PO DAILY 05/29/16 [History] LevETIRAcetam [Keppra] 750 mg PO BID 06/07/16 [History] Ipratropium/Albuterol Neb [Duoneb] 3 ml IH Q6HR PRN 08/10/16 [History] Rifaximin [Xifaxan] 200 mg PO BID tablet 08/19/16 [Rx] Dicyclomine [Bentyl] 10 mg PO QID PRN #20 capsule 09/01/16 [Rx] Ondansetron HCl [Zofran] 4 mg PO Q6HR PRN #20 tablet 09/01/16 [Rx] HYDROcodone/Acet 5/325 mg [[place] 5-325 mg] 1 tab PO BID PRN #8 tablet 09/14/16 [ Rx] Lisinopril [Zestril] 2.5 mg PO HS #0 09/14/16 [Rx] Hydrocortisone [Cortef] 5 mg PO HS #0 tablet 10/09/16 [Rx] Hydrocortisone [Cortef] 10 mg PO QAM #0 tablet 10/09/16 [Rx] Allergies Iodinated Contrast Media - Oral and Allergy (Verified 10/06/16 13:24) Difficulty Breathing ketorolac [From Toradol] Allergy (Verified 10/06/16 13:24) Nausea Penicillins Allergy (Verified 10/06/16 13:24) Rash butorphanol [From Stadol] Adverse Reaction (Verified 10/06/16 13:24) Nausea celecoxib Adverse Reaction (Verified 10/06/16 13:24) unknown listed on [facility] med rec gabapentin Adverse Reaction (Verified 10/06/16 13:24) unknown [facility] list. mirtazapine Adverse Reaction (Verified 10/06/16 13:24) unknown listed on [facility] med rec tramadol Adverse Reaction (Verified 10/06/16 13:24) unknown listed on [facility] med rec vancomycin Adverse Reaction (Verified 10/06/16 13:24) unknown listed on [facility] med rec All Systems PM: A 10-system review of systems was performed and is negative for pertinent findings except as documented above in the HPI. - Constitutional Constitutional: weakness, no chills, no fever(s), no night sweats - EENT Eyes: no change in vision, no discharge, no pain, no photophobia Ears: no ear discharge, no ear pain, no tinnitus Nose, mouth and throat: no dysphagia, no nasal discharge, no neck pain, no sore throat - Cardiovascular Cardiovascular ROS IM: syncope, no chest pain, no diaphoresis, no dyspnea, no lightheadedness, no palpitations - Respiratory Respiratory: no cough, no dyspnea, no wheezing, no excessive phlegm production - Gastrointestinal Gastrointestinal: no abdominal pain, no diarrhea, no hematemesis, no hematochezia, no melena, no nausea, no vomiting - Musculoskeletal Musculoskeletal ROS IM: no numbness, no tingling - Integumentary Integumentary IM: no rash, no unusual bruising - Neurological Neurological ROS: no confusion, no convulsions, no focal weakness, no numbness, no tingling, no tremor(s) - Psychiatric Psychiatric: confusion - Hematologic/Lymphatic Hematologic/Lymphatic: no easy bruising - Constitutional Vitals: Temp Pulse Resp BP Pulse Ox 97.7 F 105 16 138/80 96 10/27/16 08:48 10/27/16 14:42 10/27/16 15:18 10/27/16 15:18 10/27/16 14:42 General appearance: Present: A&O X 2, morbidly obese, no acute distress - Head Head exam: Present: atraumatic, normocephalic - Eye Eye exam: Present: PERRL, conjuntiva pink, sclera anicteric Pupils: Present: PERRL - Neck Neck exam general surgery: Present: supple, trachea midline. Absent: lymphadenopathy - Respiratory Respiratory exam: Present: CTAB. Absent: accessory muscle use, rales, rhonchi, wheezes - Cardiovascular Cardiovascular exam: Present: RRR, +S1, +S2. Absent: diastolic murmur, gallop, rubs, systolic murmur - GI/Abdominal GI/Abdominal exam: Present: normal bowel sounds, soft, no peritoneal signs. Absent: distended, tenderness - Extremities Exam Extremities exam: Present: warm, radial pulses palpable and symetrical. Absent : calf tenderness, cyanotic, pedal edema - Neurological Exam Neurological exam: Present: CN II-XII intact, no focal deficits. Absent: pronater drift, facial droop, speech deficit - Skin Skin exam: Present: dry, intact, pallor Internal Med - H&P Results - Labs CBC & Chem 7: 10/27/16 09:41 10/27/16 14:06
--- NOTE | 2016-10-27 15:44 | Event Note ---
Date of Encounter: 10/27/16 Time of Encounter: 15:42 1. Possible syncopal episode, unclear etiology, possible dehydration Continue IV fluids Fall precautions 2. History of cirrhosis, order an ammonia level, may start lactulose 3. Hyponatremia, likely related to adrenal insufficiency Continue Solu-Cortef 4. Diabetes type 2, continue insulin sliding scale 5. Tachycardia, likely related to dehydration, continue IV fluids Ordered a urine analysis Admit to inpatient. Full code. Time spent on this admission 40 minutes
[2016-10-27 16:30] LABS: INR 1.2; Prothrombin Time 13.3 Seconds (9.4-12.1)
[2016-10-27 16:32] LABS: Activated Partial Thrombo Time 32.3 Seconds (26.0-36.0)
[2016-10-27] MEDS ORDERED: Dextrose Gel 15 GM PO PRN ×2 (16:52)
[2016-10-27] MEDS ORDERED: D5% in Water 1,000 ML IVC PRN (16:52)
[2016-10-27] MEDS ORDERED: *HR* Dextrose 50 % in Water (Syg) 50 ML SYRINGE IVP PRN (16:52)
--- NOTE | 2016-10-27 17:35 | Electrocardiograph Report ---
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
[2016-10-27 17:59] LABS: Hemoglobin A1C 11.5 %
[2016-10-27] MEDS ORDERED: Hydrocortisone 10 MG TABLET PO SCH (18:00)
[2016-10-27] MEDS: 0.9 % Sodium Chloride 1,000 ML IVC SCH (18:30)
[2016-10-27] MEDS: Lactulose Oral Soln 20 GM/30 ML UDC PO SCH ×3 (18:30→21:17)
[2016-10-27] MEDS ORDERED: Insulin LISPRO 300 UNITS/3 ML VIAL SQ SCH (21:00)
[2016-10-28] MEDS: *HR* Morphine 2 MG/ML SYRINGE IVP PRN ×2 (00:49→07:09)
[2016-10-28 01:26] LABS: Bilirubin,Urine Negative (Negative); Blood,Urine Negative (Negative); Clarity,Urine Clear (Clear); Color,Urine Yellow (Yellow); Glucose,Urine (UA) >=1000 mg/dL (Normal); Ketones,Urine Negative (Negative); Leukocyte Esterase,Urine Negative (Negative); Nitrite,Urine Negative (Negative); Protein,Urine Negative (Neg-Trace); Specific Gravity,Urine 1.023 (1.010-1.025); Urobilinogen,Urine Normal (Normal)
[2016-10-28 03:49] LABS: Hemoglobin 11.7 g/dL (12.9-16.9); Immature Granulocytes % 0.3 % (0-4); Mean Platelet Volume 10.6 fL (9.4-12.4); Red Cell Distribution Width 15.9 % (11.5-14.5)
[2016-10-28 03:51] LABS: Basophils % 1.2 %; Eosinophils # 0.2 K/mcL (0.0-0.6); Eosinophils % 5.2 %; Hematocrit 34.6 % (37.5-50.1); Immature Platelets 4.7 % (1.1-6.1); Lymphocytes # 1.4 K/mcL (0.6-4.6); Lymphocytes % 42.2 %; Mean Corpuscular HGB Conc 33.8 g/dL (31.6-35.5); Mean Corpuscular Hemoglobin 28.3 pg (28.0-33.3); Mean Corpuscular Volume 83.8 fL (83.0-100.0); Monocytes # 0.3 K/mcL (0.0-1.3); Monocytes % 10.3 %; Red Blood Count 4.13 M/mcL (4.19-5.50); Segmented Neutrophils % 40.8 %
[2016-10-28 03:53] LABS: Neutrophils # 1.4 K/mcL (1.6-8.9); Platelet Count 72 K/mcL (140-400)
[2016-10-28 04:06] LABS: Alanine Aminotransferase 45 Units/L (0-55); Albumin 3.2 g/dL (3.5-5.0); Albumin/Globulin Ratio 0.8 (1.1-2.2); Alkaline Phosphatase 132 Units/L (38-126); Aspartate Amino Transferase 46 Units/L (5-34); BUN/Creatinine Ratio 30 (6-26); Bilirubin,Total 0.7 mg/dL (0.2-1.2); Carbon Dioxide 25 mEq/L (19-29); Chloride 102 mEq/L (98-109); Glucose 265 mg/dL (70-99); Osmolality,Calculated 293 (280-300); Potassium 4.9 mEq/L (3.5-4.5); Sodium 133 mEq/L (136-145); Total Protein 7.2 g/dL (6.0-8.3); eGFR For African Americans > 60 (> 60); eGFR For Non-African Americans > 60 (> 60)
[2016-10-28] MEDS: Ipratropium/Albuterol Neb 3 ML IH SCH ×2 (04:09→10:44)
[2016-10-28 04:10] LABS: Blood Urea Nitrogen 34 mg/dL (8-26)
[2016-10-28] MEDS: Lactulose Oral Soln 20 GM/30 ML UDC PO SCH (07:39)
[2016-10-28] MEDS: 0.9 % Sodium Chloride 1,000 ML IVC SCH ×3 (07:40→07:52)
[2016-10-28] MEDS: Insulin LISPRO 300 UNITS/3 ML VIAL SQ SCH ×4 (07:41→12:04)
[2016-10-28] MEDS ORDERED: Venlafaxine XR (24 HR) 37.5 MG CAP.ER.24H PO SCH (09:00)
[2016-10-28] MEDS ORDERED: Aspirin Enteric Coated 81 MG Tablet PO SCH (09:00)
[2016-10-28] MEDS ORDERED: Furosemide 40 MG TABLET PO SCH (09:00)
[2016-10-28] MEDS ORDERED: Insulin DETEMIR 100 UNIT/ML X5UNITS SQ SCH (09:00)
[2016-10-28] MEDS ORDERED: *HR* Rivaroxaban 10 MG TABLET PO SCH (09:30)
--- NOTE | 2016-10-28 09:53 | Discharge Summary ---
Date of Encounter: 10/28/16 Time of Encounter: 09:00 - Discharge Diagnosis (1) Near syncope Priority: Primary Status: Acute (2) Acute kidney injury Priority: Secondary Status: Acute (3) Adrenal insufficiency Priority: Secondary Status: Acute (4) Cirrhosis of liver Priority: Secondary Status: Chronic Qualifiers: Hepatic cirrhosis type: unspecified hepatic cirrhosis Ascites presence: without ascites Qualified Code(s): K74.60 - Unspecified cirrhosis of liver (5) DM2 (diabetes mellitus, type 2) Priority: Secondary Status: Chronic Qualifiers: Diabetes mellitus complication status: with hyperglycemia Diabetes mellitus jewel grinder insulin use: with usp use Qualified Code(s): E11.65 - Type 2 diabetes mellitus with hyperglycemia; Z79.4 - disability representative (current) use of insulin (6) Encephalopathy Priority: Secondary Status: Acute (7) HTN (hypertension) Priority: Secondary Status: Chronic Qualifiers: Hypertension type: essential hypertension Qualified Code(s): I10 - Essential (primary) hypertension (8) Hyponatremia Priority: Secondary Status: Acute (9) Thrombocytopenia Priority: Secondary Status: Acute - Discharge Medications Prescriptions: Hydrocortisone [Cortef] 5 mg PO QPM #30 tablet Home Medications: Cholecalciferol (Vitamin D3) [Vitamin D] 2,000 unit PO DAILY 05/13/15 [History] Insulin ASPART [NovoLOG] 25 unit SQ TIDWM 05/13/15 [History] Ropinirole HCl [Requip] 2 mg PO HS 05/13/15 [History] Aspirin Enteric Coated [Aspirin EC] 81 mg PO DAILY 11/13/15 [History] Atorvastatin [Lipitor] 40 mg PO HS 11/13/15 [History] Insulin Glargine,Hum.rec.anlog [Lantus Solostar] 55 unit SQ BID 11/13/15 [ History] Lactulose 15 gm PO BID 11/13/15 [History] Omeprazole [PriLOSEC] 20 mg PO DAILY 11/13/15 [History] Tamsulosin [Flomax] 0.4 mg PO DAILY 11/13/15 [History] Furosemide [Lasix] 40 mg PO DAILY 05/16/16 [History] Rivaroxaban [Xarelto] 10 mg PO DAILY 05/16/16 [History] risperiDONE [Risperdal] 3 mg PO HS 05/16/16 [History] Atenolol [Tenormin] 50 mg PO DAILY 05/29/16 [History] Ipratropium/Albuterol Neb [Duoneb] 3 ml IH QID 08/10/16 [History] Lisinopril [Zestril] 2.5 mg PO HS #0 09/14/16 [Rx] Cyprohepatdine [Periactin] 4 mg PO HS 10/27/16 [History] DiphenhydraMINE [Benadryl] 50 mg PO HS 10/27/16 [History] Melatonin 9 mg PO HS 10/27/16 [History] Metformin HCl [Glucophage] 1,000 mg PO BIDWM 10/27/16 [History] Sertraline [Zoloft] 100 mg PO DAILY 10/27/16 [History] Spironolactone [Aldactone] 50 mg PO DAILY 10/27/16 [History] Venlafaxine HCl [Venlafaxine HCl ER] 37.5 mg PO DAILY 10/27/16 [History] Hydrocortisone [Cortef] 5 mg PO QPM #30 tablet 10/28/16 [Rx] Allergies/Adverse Reactions: Allergies Iodinated Contrast Media - Oral and Allergy (Verified 10/06/16 13:24) Difficulty Breathing ketorolac [From Toradol] Allergy (Verified 10/06/16 13:24) Nausea Penicillins Allergy (Verified 10/06/16 13:24) Rash butorphanol [From Stadol] Adverse Reaction (Verified 10/06/16 13:24) Nausea celecoxib Adverse Reaction (Verified 10/06/16 13:24) unknown listed on [facility] gabapentin Adverse Reaction (Verified 10/06/16 13:24) unknown [facility] mirtazapine Adverse Reaction (Verified 10/06/16 13:24) [facility] tramadol Adverse Reaction (Verified 10/06/16 13:24) unknown listed on [facility] vancomycin Adverse Reaction (Verified 10/06/16 13:24) unknown listed on [facility] Date of admission: 10/27/16 18:40 [facility] care [facility] Discharging clinician: Adolfo Ames Anticipated date of discharge: 10/28/16 - Patient Status Disposition: Home, Self-Care Condition: Good Functional capacity at discharge: independent ambulation Overall status at discharge: patient is back to baseline - Discharge Instructions Instructions: Dehydration (DC), Syncope (DC), Diabetic Hyperglycemia (DC) Follow Up With: [facility] [Outside] - 11/03/16 9:15 am (Follow-up in one week) - Diet and Activity Activity: increase activity as tolerated, resume usual activities as tolerated Diet: diabetic diet, low fat, low cholesterol, low salt diet Hospital course: Mr. Ramirez is a 66 year old male with a history of diabetes mellitus type 2, prior pulmonary embolism, cirrhosis of the liver, hypertension and coronary artery disease along with adrenal insufficiency who was admitted here following episodes of near syncope. Patient never lost consciousness. He was found to have acute kidney injury and was dehydrated. His ammonia levels were normal. He was treated for this with IV hydration with improvement in his symptoms. This morning his feeling much better and is able to ambulate on his own without any issues. He wishes to go home. Workup here has been negative. Patient had a negative head CT for acute bleed or stroke. He did have age-related cerebral atrophy and chronic microangiopathic ischemic changes. Carotid Dopplers showed some nonstenotic plaque on the right side. Patient has had normal blood pressure and normal orthostatics here. [facility] at a [facility] and has no other needs at this time. He does take ibuprofen which can cause renal dysfunction and I am stopping this medication. She has also been restarted on Solu-Cortef which was not listed on his home med list. He does have a history of adrenal insufficiency. This could be contributing to his symptoms also. This morning, his blood sugars were elevated but his insulin regimen was adjusted and he received extra insulin coverage with improvement in his blood sugars. - Time Spent with Patient Total time spent providing and/or coordinating discharge services: Less than 30 minutes (25 min) - Constitutional Vitals: Temp Pulse Resp BP Pulse Ox 98.3 F 92 16 116/72 97 10/28/16 07:23 10/28/16 07:23 10/28/16 07:23 10/28/16 07:23 10/28/16 07:23 General appearance: Present: A&O X 2, morbidly obese, no acute distress - Eye Eye exam: Present: PERRL, conjuntiva pink, sclera anicteric Pupils: Present: PERRL - Respiratory Respiratory exam: Present: CTAB. Absent: accessory muscle use, rales, rhonchi, wheezes - Cardiovascular Cardiovascular exam: Present: RRR, +S1, +S2. Absent: diastolic murmur, gallop, rubs, systolic murmur - Extremities Exam Extremities exam: Present: warm, radial pulses palpable and symetrical. Absent : calf tenderness, cyanotic, pedal edema - Attending Attestation This document has been at least partially created by [email or web address] recognition technology by Dr. Ames. Errors in grammar, wording or other phrases may exist. If errors are found after the documentation is signed, they will be addressed individually in the addendum section of this document when appropriate.
[2016-10-28 11:21] VITALS: BP 104/63
[2016-10-28] MEDS ORDERED: Insulin Human Regular 10 UNIT in 0.9 % Sodium Chloride 10 ML IV ONE (11:22)
--- NOTE | 2016-10-28 13:54 | Carotid Imaging Report ---
Carotid Duplex Patient Name:Teddy Ramirez Order Number:[id number] Procedure Date:10/27/2016 Date:1950ge:66 yrs Gender:Male Lt BP:138 / 80 mmHg Rt.BP:150 / 75 mmHgHeart Rate: Location:[facility] Room #: 3A33 Caption Writer:Rae Latif Referring MD:Landy Schulte CNP online content editor:[facility] Reading MD:Julio Moreno MD Primary Indications:near syncope Risk Factors Yes/No Hypertension Yes Hypercholesterolemia Yes Diabetes Yes Impressions: Findings: Bilateral carotid system has nonstenotic plaque. Recommendations: After imaging the patient returned to their room. Findings Carotid Duplex: Right: The right proximal common carotid artery has a PSV of 72 cm/s and a EDV of 14 cm/s. The right mid common carotid artery has a PSV of 73 cm/s and a EDV of 16 cm/s. The right distal common carotid artery has a PSV of 66 cm/s and a EDV of 16 cm/s. The right bifurcation has a PSV of 83 cm/s and a EDV of 21 cm/s. There is nonstenotic plaque in the right proximal internal carotid artery with a PSV of 106 cm/s and a EDV of 32 cm/s. There is heterogeneous plaque. The right mid internal carotid artery has a PSV of 101 cm/s and a EDV of 29 cm/s. The right distal internal carotid artery has a PSV of 83 cm/s and a EDV of 24 cm/s. The right eca has a PSV of 53 cm/s and a EDV of 12 cm/s. The right vertebral artery has a PSV of 18 cm/s and a EDV of 5 cm/s. The right mid internal carotid, right distal internal carotid and right vertebral arteries were not well visualized. Left: The left proximal common carotid artery has a PSV of 80 cm/s and a EDV of 17 cm/s. The left mid common carotid artery has a PSV of 76 cm/s and a EDV of 14 cm/s. The left distal common carotid artery has a PSV of 85 cm/s and a EDV of 18 cm/s. The left bifurcation has a PSV of 81 cm/s and a EDV of 19 cm/s. The left proximal internal carotid artery has a PSV of 74 cm/s and a EDV of 20 cm/s. The left mid internal carotid artery has a PSV of 57 cm/s and a EDV of 20 cm/s. The left distal internal carotid artery has a PSV of 50 cm/s and a EDV of 12 cm/s. The left eca has a PSV of 74 cm/s and a EDV of 9 cm/s. The left vertebral artery has a PSV of 48 cm/s and a EDV of 11 cm/s. The left distal internal carotid artery was not well visualized. Prior Study: No prior study available for comparison. Carotid Results Right PSV EDV Assessment Proximal CCA 72 14 Normal Mid CCA 73 16 Normal Distal CCA 66 16 Normal Bifurcation 83 21 Normal Proximal ICA 106 32 Non Stenotic Plaque Mid ICA 101 29 Not Well Visualized Distal ICA 83 24 Not Well Visualized ECA 53 12 Normal Vertebral Artery 18 5 Not Well Visualized Left PSV EDV Assessment Proximal CCA 80 17 Normal Mid CCA 76 14 Normal Distal CCA 85 18 Normal Bifurcation 81 19 Normal Proximal ICA 74 20 Normal Mid ICA 57 20 Normal Distal ICA 50 12 Not Well Visualized ECA 74 9 Normal Vertebral Artery 48 11 Normal Ratio's Right ICA/CCA Ratio: 1.45 ICA/CCA Values: 106/73 Left ICA/CCA Ratio: 0.97 ICA/CCA Values: 74/76 Updated by Julio Moreno MD on 10/28/2016 1:46:32 PM electronically signed on 10/28/2016 1:46:55 PM with status of Final
--- NOTE | 2016-10-28 14:12 | ECHO - Doppler Report ---
Echocardiogram Name: Teddy Ramirez Date of Study: 10/28/2016 Date: 1950 Ht: 68.0 in Medical Record#: [id number] Age: 66 Wt: 240.0 lb Gender: Male BSA: 2.21 Order #: [id number] Location: [facility] Room #: [id number] Reading Physician: Natalie Orona DO Bakery Technician: Saritha Conde RVT, [facility] Ordering Physician: Landy Schulte CNP Primary Physician: [facility] Indications: Syncope Impressions: LVEF 60%. Normal left ventricular size and systolic function. There is evidence of moderate diastolic dysfunction of the left ventricle. Normal right ventricular size and function. No significant valvular dysfunction. No pulmonary hypertension. Left Ventricular Wall Motion: Rest Echo Findings All wall segments showed normal motion. Findings: Study Quality * Technically adequate exam. ECG Findings * Normal sinus rhythm. Left Ventricle * LVEF 60%. * Normal LV chamber size, wall thickness and function. * Moderate left ventricular diastolic dysfunction. Aorta * Normally sized aortic root. Left Atrium * Normal left atrial size. Mitral Valve * Normal mitral valve structure. * No mitral stenosis. * No mitral regurgitation. Aortic Valve * No aortic regurgitation. * Trileaflet aortic valve. * Mildly calcified aortic valve leaflets. * No aortic stenosis. Tricuspid Valve * Tricuspid valve not well visualized. * Trace tricuspid regurgitation. * Estimated RA pressure is 3 mmHg. * Estimated RVSP is 20 mmHg. * No pulmonary hypertension. Pulmonic Valve * Pulmonic valve is not well visualized. * No pulmonic stenosis. * No pulmonic regurgitation. Pulmonary Artery * Pulmonary artery not well visualized. Right Ventricle * Normal right ventricular structure and function. Right Atrium * Normal right atrial size. Pericardium * There is no pericardial effusion present. Interatrial Septum * No evidence of PFO by color Doppler. IVC * Normal IVC dimensions and inspiratory collapse. History Hypertension Diabetes Hypercholesteremia Congestive Heart Failure 05-14-2015 a Previous Echo was performed. Measurements: BP: 132/ 68 2D Normal Values IVSd: 1.10 cm 0.6 - 1.0 cm LVIDd: 4.90 cm 3.7 - 5.6 cm LVPWd: 1.20 cm 0.6 - 1.1 cm LVIDs: 3.80 cm 1.5 - 3.6 cm AO: 3.00 cm < 4.0 cm LA: 4.10 cm 2.0 - 4.0cm %FS: 22.40 cm >25 % LA volume: 30 Mitral Valve Dec Time:261.00 msec Peak E:.93 m/sec Peak A:.83 m/sec E/A Ratio:1.1 Peak E' Lat Delon:6.63 cm/s Peak E' Med Delon:7.51 cm/s E/E' Lat Ratio:14 E/E' Med Ratio:12.4 Tricuspid Valve TV Regurg Peak Grad: 17.00mmHg TV Regurg Peak Delon: 2.08m/sec Updated by Natalie Orona on 10/28/2016 2:07:51 PM electronically signed on 10/28/2016 2:08:18 PM with status of Final [employer] [place]: 1=Normal, 2=Hypokinesis, 3=Akinesis, 4=Dyskinesis, 5=Aneurysmal, 6=Hyperkinetic, X=Not Visualized (Blank)=Missing
[2016-10-28] MEDS ORDERED: rOPINIRole 1 MG TABLET PO SCH (21:00)
[2016-10-28] MEDS ORDERED: Melatonin 3 MG TABLET PO SCH (21:00)
[2016-10-28] MEDS ORDERED: RisperiDAL 3 MG TABLET PO SCH (21:00)
== END 2016-10-28 13:52 | disposition home or self-care (01) | DRG 682 ==
LOC: EMEROO 08:46 → 3ANU 08:46 → SUATTDRO 18:40
PROVIDERS: ADMIT Internal Medicine; ATTEND Internal Medicine

== ENCOUNTER 2016-11-11 03:40 | Inpatient (IN) ==
[2016-11-11] MEDS ORDERED: 0.9 % Sodium Chloride 1,000 ML IVC ONE ×3 (03:55→05:49)
--- NOTE | 2016-11-11 04:08 | Emergency Department Note ---
Disposition Clinical Impression: Generalized weakness, Frequent falls, Lactic acidosis, Severe sepsis, MJ ( acute kidney injury) Hypotension Qualifiers: Hypotension type: other hypotension type Qualified Code(s): I95.89 - Other hypotension Altered mental status Qualifiers: Altered mental status type: unspecified Qualified Code(s): R41.82 - Altered mental status, unspecified Disposition: Admitted As Inpatient Condition: Good Time of Disposition: 07:38 General Adult HPI - General Chief complaint: ED Fall Stated complaint: falls Time Seen by Provider: 11/11/16 03:42 Source: patient, EMS Mode of arrival: EMS Limitations: no limitations Nursing Notes Reviewed: Yes Vital Signs Reviewed: Yes - History of Present Illness HPI Narrative: 66-year-old male presents for frequent falls. He has chronic weakness is lower extremities which he normally uses a walker to ambulate. He reports falling 3 times over the past 24 hours. This 1st episode occurred 730 yesterday morning while trying to go to the bathroom. He denies using his walker at that time. He felt like his right leg gave out and it crumbled causing him to fall onto his knees. He again fell around 0900 with a similar feeling of leg weakness, this time he felt to his right and landed on his right hip. He then again felt several hours later. With each episode he denies any loss of consciousness or head injury. He does report taking Xarelto for history of blood clots. He reports prodromal symptoms such as lightheadedness and shortness of breath. He denies any chest pain or headache. He denies any recent illness, fever, cough or diarrhea. He reports some mild right hip tenderness. He denies any neck pain, back pain or urinary symptoms. He does report some constipation which is the reason for him to get up prior to these falls when he went to the bathroom. Pain Scale: 0 - Related Data Home Medications Medication Instructions Recorded Confirmed Cholecalciferol (Vitamin D3) 2,000 unit PO DAILY 05/13/15 11/11/16 [Vitamin D] Insulin ASPART [NovoLOG] 48 - 100 unit SQ TIDWM 05/13/15 11/11/16 Aspirin Enteric Coated [Aspirin EC] 81 mg PO DAILY 11/13/15 11/11/16 Atorvastatin [Lipitor] 40 mg PO HS 11/13/15 11/11/16 Insulin Glargine,Hum.rec.anlog 160 unit SQ BID 11/13/15 11/11/16 [Lantus Solostar] Lactulose 15 gm PO BID 11/13/15 11/11/16 Omeprazole [PriLOSEC] 20 mg PO DAILY 11/13/15 11/11/16 Tamsulosin [Flomax] 0.4 mg PO DAILY 11/13/15 11/11/16 Furosemide [Lasix] 40 mg PO DAILY 05/16/16 11/11/16 Rivaroxaban [Xarelto] 10 mg PO DAILY 05/16/16 11/11/16 risperiDONE [Risperdal] 3 mg PO HS 05/16/16 11/11/16 Atenolol [Tenormin] 50 mg PO DAILY 05/29/16 11/11/16 Ipratropium/Albuterol Neb [Duoneb] 3 ml IH QID 08/10/16 11/11/16 DiphenhydraMINE [Benadryl] 50 mg PO HS 10/27/16 11/11/16 Sertraline [Zoloft] 50 mg PO DAILY 10/27/16 11/11/16 Spironolactone [Aldactone] 50 mg PO DAILY 10/27/16 11/11/16 Venlafaxine HCl [Effexor Xr] 75 mg PO DAILY 11/11/16 11/11/16 HYDROcodone/Acet 5/325 mg [[place] 1 tab PO Q4H PRN 11/12/16 11/12/16 5-325 mg] Previous Rx's Medication Instructions Recorded Lisinopril [Zestril] 2.5 mg PO HS #0 09/14/16 Hydrocortisone [Cortef] 10 mg PO DAILY #30 tablet 11/13/16 Allergies Allergy/AdvReac Type Severity Reaction Status Date / Time Iodinated Contrast- Oral and Allergy Difficulty Verified 11/11/16 08:37 IV Dye Breathing ketorolac [From Toradol] Allergy Nausea Verified 11/11/16 08:37 Penicillins Allergy Rash Verified 11/11/16 08:37 butorphanol [From Stadol] AdvReac Nausea Verified 11/11/16 08:37 celecoxib AdvReac unknown Verified 11/11/16 08:37 gabapentin AdvReac unknown Verified 11/11/16 08:37 mirtazapine AdvReac unknown Verified 11/11/16 08:37 tramadol AdvReac unknown Verified 11/11/16 08:37 vancomycin AdvReac unknown Verified 11/11/16 08:37 All systems ED: reviewed and negative except as stated. Constitutional: Reports: weakness. Denies: fever, chills Cardiovascular: Denies: chest pain, palpitations Respiratory: Reports: dyspnea. Denies: cough Gastrointestinal: Reports: constipation. Denies: abdominal pain, nausea, vomiting Genitourinary: Denies: urgency, dysuria Musculoskeletal: Reports: arthralgia. Denies: back pain, neck pain, joint swelling Integumentary: Denies: rash, abrasion Neurological: Denies: headache, weakness Endocrine: Denies: fatigue Past Medical History - Past Medical History Attestation: Yes The following information was validated with the patient. Source: patient Medical history: Reports: arthritis, cirrhosis, CHF, COPD, coronary artery disease, diabetes, GERD, hyperlipidemia, hypertension, liver disease, osteoporosis, TIA Surgical history: Reports: appendectomy, cholecystectomy, herniorrhaphy, knee replacement, other Psychiatric history: Reports: anxiety, depression, panic disorder, PTSD, previous psychiatric hospitalization - Social History Smoking Status: Never smoker Smokeless Tobacco Status: No Alcohol use: Reports: none Drug use: Reports: none Physical Exam - General Limitations: no limitations General appearance: in no apparent distress, obese, other (somnolent but easily arousable) - Head Head exam: atraumatic, normocephalic, normal inspection - Eye Eye exam: Present: normal appearance, PERRL, EOMI. Absent: scleral icterus - ENT ENT exam: normal exam, normal oropharynx, mucous membranes moist - Neck Neck exam: Present: normal inspection, full ROM, trachea midline. Absent: tenderness - Expanded Neck Exam Neck exam focused ED: Absent: midline tenderness, tenderness (other) - Chest Chest inspection: Present: normal inspection, symmetric chest wall rise. Absent : tenderness, rash - Respiratory Respiratory exam: Present: normal lung sounds bilaterally. Absent: respiratory distress, wheezes - Cardiovascular Cardiovascular exam: Present: regular rate, normal rhythm, normal heart sounds - Abdominal Exam Abdominal exam: Present: soft (obese), Non-Tender, normal bowel sounds, scar. Absent: tenderness, distention, guarding, rebound, rigidity, ascites - Extremities Exam Extremities exam: Present: normal inspection, full ROM. Absent: tenderness, pedal edema - Back Exam Back exam: Present: normal inspection, full ROM. Absent: tenderness, vertebral tenderness - Neurological Exam Neurological exam: Present: alert, oriented X3, CN II-XII intact - Expanded Neurological Exam Patient oriented to: Present: person, place, time Speech: Present: fluid speech Cranial nerves: EOM function (II, III, IV, ): Normal, facial sensation (V): Normal, facial palsy (VII): Normal, gag reflex (IX): Normal, spinal accessory function (XI): Normal, tongue deviation (XII): Normal Motor strength - LUE: 5/5 Motor strength - RUE: 5/5 Motor strength - LLE: 5/5 Motor strength - RLE: 5/5 - Psychiatric Psychiatric exam: Present: normal affect, normal mood - Skin Skin exam: Present: warm, dry, intact, normal color Course Course Narrative: 66-year-old male presents for frequent falls. Reports fallen a total of 3 times denies any head trauma or loss of consciousness. He is somnolent easily arousable. Initially he is hypotensive SBP 70s. He is alert and oriented to person place and time. No obvious signs of trauma. Neurologic exam is normal without any focal neural deficits. He does not have any midline neck tenderness. Only complains of right hip pain. Tenderness with palpation. The lower extremity does not appear to be shortened or internally rotated. He has chronic leg pain and weakness which is why he uses a walker. He does admit to not using it all 3 times when he fell. Heart is regular rate and rhythm. Lungs are clear to auscultation bilaterally. He denies any recent illness other than constipation over the past few days. Will get a CT of his head and right hip xray. Septic workup initiated due to unexplained hypotension. - Reevaluation(s) Reevaluation #1: Remains hypotensive. He has received 1 L of normal saline without any significant increase in blood pressure. Review of medication list and medical records, he takes hydrocortisone chronically for adrenal insufficiency. He is on metformin 1000 mg BID which may explain his lactic acidosis with no obvious source of infection at this time. Awaiting urinalysis. Stress dose of 100 milligrams hydrocortisone for blood pressures given. Blood cultures have been drawn. Initial lactate 6.1. His lactate has been as high as 7 in the past without any obvious source of infection.He has a chronic hyponatremia 131. Elevation his creatinine 2.97, this has been significantly elevated in the past as his 5. His blood pressures have been low in the past but recently have been within the normal range the last month. Will continue to fluid resuscitate with additional 2 L normal saline. If his blood pressure does not significantly increase may consider central line placement and possible Levophed. Patient is afebrile and continues to deny any recent illness or pain or discomfort. He has taken Cefepime in the past for similar symptoms of septic shock. He is allergic to vancomycin, reports swelling of the airway. Recent blood cultures have been no growth to date. Time: 05:21 Reevaluation #2: Despite almost 3L of normal saline and 100mg hydrocortisone, he remains hypotensive. Right IJ central line placed for possible vasopressor intitiation. Informed consent was obtained. Patient was able to repeat the procedure and indications which include possible medications that increase blood pressure. He understands the risks for infection, bleeding and cannulation of the artery. Levophed ordered for vasopressor support if needed. After 3 L of fluid resuscitation his systolic blood pressure has been consistently 100s. Will admit to the intensive this ICU for further management. Repeat lactate down trending 3.6. Reassessment of patient, he remains somnolent and easily arousal. He is continues to be oriented to person place and time. On repeat abdominal exam he remains soft nontender nondistended. Time: 07:46 Reevaluation #3: Chest x-ray reveals no pneumothorax and apporpirate placement of line in SVC. Line is ok to use. Time: 08:10 - Consultations Consultation #1: Spoke with vamp marker donna Flores to admit for hypotension, severe sepsis, lactic acidosis, AMS. Received 3 L resuscitation and persistent hypotension. R IJ CVC placed, BPs consistently SBP 100s. Request for CT abd/ pelvis and then admit to ICU. No abdominal tenderness. Time: 07:44 Vital Signs Temperature 97.6 F 11/11/16 03:50 Pulse Rate 107 11/11/16 03:50 Respiratory Rate 20 11/11/16 03:50 Blood Pressure 77/45 11/11/16 03:50 O2 Sat by Pulse Oximetry 97 11/11/16 03:50 Temperature 97.5 F L 11/13/16 11:46 Pulse Rate 76 11/13/16 11:46 Respiratory Rate 16 11/13/16 11:46 Blood Pressure 145/81 11/13/16 11:46 O2 Sat by Pulse Oximetry 96 11/13/16 11:46 Oxygen Delivery Oxygen Delivery Room Air Procedures - Central Line Placement Right IJ Central Line Inserted*: Yes Central Line Insertion: emergent Consent Obtained: verbal consent, written consent Procedural Pause: verify patient name and date of , timeout performed per policy, leslie and assess the site, assemble equipment and verify supplies, perform hand hygiene Patient Placed on Monitor/Pulse Ox: Yes During the Procedure: clinician is wearing sterile gloves, cap, mask,& gown during insertion, sterile field and sterile technique are maintained, patient's face is covered with drape or mask and wearing a cap, everyone in room is wearing a mask Central Line Prep: Chlorhexidine scrub, sterile drapes applied Prep the Procedure Site: apply chloraprep to the skin using a back and forth scrubbing motion, apply chloraprep for 30 seconds (upper body), 1-2 min ( femoral sites), allow prep to dry, drape the patient with a full body drape Local Anesthetic: lidocaine 1% Ultrasound Used for Placement: Yes Central Line Lumen Inserted: triple Post Procedure: sutured in place, good blood return, all ports aspirated, flushed, capped, sterile dressing applied, guide wire removed and visualized Post Procedure X-Ray: tip of catheter in good position, no pneumothorax seen Patient Tolerated Procedure: well, no complications Complications: none Name of Clinician Inserting Central Line: Rickie Lozano Date: 11/11/16 Time: 08:09 Medical Decision Making - Medical Records Medical records reviewed: Yes I reviewed the patient's medical records. - Lab Data Lab results reviewed: Yes I reviewed the patient's lab results. Result diagrams: 11/13/16 05:16 11/13/16 05:16 Lab Results 11/11/16 11/11/16 11/11/16 Range/Units 04:03 04:18 04:18 WBC 11.5 H (4.3-11.1) K/mcL RBC 4.72 (4.19-5.50) M/mcL Hgb 13.4 (12.9-16.9) g/dL Hct 38.9 (37.5-50.1) % MCV 82.4 L (83.0-100.0) fL MCH 28.4 (28.0-33.3) pg MCHC 34.4 (31.6-35.5) g/dL RDW 14.9 H (11.5-14.5) % Plt Count 97 L (140-400) K/mcL MPV 11.2 (9.4-12.4) fL Immature Gran % 0.4 (0-4) % Seg Neutrophils % 68.1 % Lymphocytes % 20.4 % Monocytes % 8.5 % Eosinophils % 2.1 % Basophils % 0.5 % Neutrophils # 7.8 (1.6-8.9) K/mcL Lymphocytes # 2.4 (0.6-4.6) K/mcL Monocytes # 1.0 (0.0-1.3) K/mcL Eosinophils # 0.2 (0.0-0.6) K/mcL Basophils # 0.1 (0.0-0.2) K/mcL Sodium (136-145) mEq/L Potassium (3.5-4.5) mEq/L Chloride (98-109) mEq/L Carbon Dioxide (19-29) mEq/L BUN (8-26) mg/dL Creatinine (0.72-1.25) mg/dL Est GFR ( Amer) (> 60) Est GFR (Non-Af Amer) (> 60) BUN/Creatinine Ratio (6-26) Glucose (70-99) mg/dL POC Glucose 255 H (58-89) Calculated Osmolality (280-300) Lactic Acid (0.5-2.2) mmol/L Calcium (8.6-10.8) mg/dL Phosphorus (2.3-4.7) mg/dL Magnesium (1.6-2.6) mg/dL Total Bilirubin (0.2-1.2) mg/dL Direct Bilirubin (0.0-0.5) mg/dL Indirect Bilirubin (0.0-1.2) mg/dL AST (5-34) Units/L ALT (0-55) Units/L Alkaline Phosphatase (38-126) Units/L Troponin I 0.01 (0-0.03) ng/mL Serum Total Protein (6.0-8.3) g/dL Albumin (3.5-5.0) g/dL Globulin (2.4-3.5) g/dL Albumin/Globulin Ratio (1.1-2.2) Urine Color (Yellow) Urine Clarity (Clear) Urine pH (5.0-8.0) pH Units Ur Specific [place] (1.010-1.025) Urine Protein (Neg-Trace) mg/dL Urine Glucose (UA) (Normal) mg/dL Urine Ketones (Negative) mg/dL Urine Blood (Negative) Urine Nitrite (Negative) Urine Bilirubin (Negative) Urine Urobilinogen (Normal) mg/dL Ur Leukocyte Esterase (Negative) Ur Culture Indicated? (NO) Urine Opiates Screen (Ttaddg=087) ng/mL Ur Barbiturates Screen (Skszsn=171) ng/mL Ur Phencyclidine Scrn (Cutoff=25) ng/mL Ur Amphetamines Screen (Xyypsv=8782) ng/mL U Benzodiazepines Scrn (Spvnss=088) ng/mL Urine Cocaine Screen (Cutoff= 300) ng/mL U Marijuana (THC) Screen (Cutoff = 50) ng/mL 11/11/16 11/11/16 11/11/16 Range/Units 04:18 04:25 05:50 WBC (4.3-11.1) K/mcL RBC (4.19-5.50) M/mcL Hgb (12.9-16.9) g/dL Hct (37.5-50.1) % MCV (83.0-100.0) fL MCH (28.0-33.3) pg MCHC (31.6-35.5) g/dL RDW (11.5-14.5) % Plt Count (140-400) K/mcL MPV (9.4-12.4) fL Immature Gran % (0-4) % Seg Neutrophils % % Lymphocytes % % Monocytes % % Eosinophils % % Basophils % % Neutrophils # (1.6-8.9) K/mcL Lymphocytes # (0.6-4.6) K/mcL Monocytes # (0.0-1.3) K/mcL Eosinophils # (0.0-0.6) K/mcL Basophils # (0.0-0.2) K/mcL Sodium 131 L (136-145) mEq/L Potassium 4.3 (3.5-4.5) mEq/L Chloride 91 L (98-109) mEq/L Carbon Dioxide 21 (19-29) mEq/L BUN 48 H (8-26) mg/dL Creatinine 2.97 H (0.72-1.25) mg/dL Est GFR ( Amer) 26 L (> 60) Est GFR (Non-Af Amer) 21 L (> 60) BUN/Creatinine Ratio 16 (6-26) Glucose 268 H (70-99) mg/dL POC Glucose (58-89) Calculated Osmolality 294 (280-300) Lactic Acid 6.1 H* (0.5-2.2) mmol/L Calcium 10.5 (8.6-10.8) mg/dL Phosphorus 4.8 H (2.3-4.7) mg/dL Magnesium 1.8 (1.6-2.6) mg/dL Total Bilirubin 0.9 (0.2-1.2) mg/dL Direct Bilirubin 0.5 (0.0-0.5) mg/dL Indirect Bilirubin 0.4 (0.0-1.2) mg/dL AST 41 H (5-34) Units/L ALT 51 (0-55) Units/L Alkaline Phosphatase 162 H (38-126) Units/L Troponin I (0-0.03) ng/mL Serum Total Protein 8.5 H (6.0-8.3) g/dL Albumin 3.7 (3.5-5.0) g/dL Globulin 4.8 H (2.4-3.5) g/dL Albumin/Globulin Ratio 0.8 L (1.1-2.2) Urine Color Yellow (Yellow) Urine Clarity Clear (Clear) Urine pH 6.0 (5.0-8.0) pH Units Ur Specific [place] 1.030 H (1.010-1.025) Urine Protein Negative (Neg-Trace) mg/dL Urine Glucose (UA) >=1000 H (Normal) mg/dL Urine Ketones Negative (Negative) mg/dL Urine Blood Negative (Negative) Urine Nitrite Negative (Negative) Urine Bilirubin Negative (Negative) Urine Urobilinogen Normal (Normal) mg/dL Ur Leukocyte Esterase Negative (Negative) Ur Culture Indicated? NO (NO) Urine Opiates Screen (Oiancg=999) ng/mL Ur Barbiturates Screen (Ioijiv=339) ng/mL Ur Phencyclidine Scrn (Cutoff=25) ng/mL Ur Amphetamines Screen (Ubvgnw=7744) ng/mL U Benzodiazepines Scrn (Zjciqx=524) ng/mL Urine Cocaine Screen (Cutoff= 300) ng/mL U Marijuana (THC) Screen (Cutoff = 50) ng/mL 11/11/16 11/11/16 Range/Units 05:50 06:25 WBC (4.3-11.1) K/mcL RBC (4.19-5.50) M/mcL Hgb (12.9-16.9) g/dL Hct (37.5-50.1) % MCV (83.0-100.0) fL MCH (28.0-33.3) pg MCHC (31.6-35.5) g/dL RDW (11.5-14.5) % Plt Count (140-400) K/mcL MPV (9.4-12.4) fL Immature Gran % (0-4) % Seg Neutrophils % % Lymphocytes % % Monocytes % % Eosinophils % % Basophils % % Neutrophils # (1.6-8.9) K/mcL Lymphocytes # (0.6-4.6) K/mcL Monocytes # (0.0-1.3) K/mcL Eosinophils # (0.0-0.6) K/mcL Basophils # (0.0-0.2) K/mcL Sodium (136-145) mEq/L Potassium (3.5-4.5) mEq/L Chloride (98-109) mEq/L Carbon Dioxide (19-29) mEq/L BUN (8-26) mg/dL Creatinine (0.72-1.25) mg/dL Est GFR ( Amer) (> 60) Est GFR (Non-Af Amer) (> 60) BUN/Creatinine Ratio (6-26) Glucose (70-99) mg/dL POC Glucose (58-89) Calculated Osmolality (280-300) Lactic Acid 3.6 H (0.5-2.2) mmol/L Calcium (8.6-10.8) mg/dL Phosphorus (2.3-4.7) mg/dL Magnesium (1.6-2.6) mg/dL Total Bilirubin (0.2-1.2) mg/dL Direct Bilirubin (0.0-0.5) mg/dL Indirect Bilirubin (0.0-1.2) mg/dL AST (5-34) Units/L ALT (0-55) Units/L Alkaline Phosphatase (38-126) Units/L Troponin I (0-0.03) ng/mL Serum Total Protein (6.0-8.3) g/dL Albumin (3.5-5.0) g/dL Globulin (2.4-3.5) g/dL Albumin/Globulin Ratio (1.1-2.2) Urine Color (Yellow) Urine Clarity (Clear) Urine pH (5.0-8.0) pH Units Ur Specific [place] (1.010-1.025) Urine Protein (Neg-Trace) mg/dL Urine Glucose (UA) (Normal) mg/dL Urine Ketones (Negative) mg/dL Urine Blood (Negative) Urine Nitrite (Negative) Urine Bilirubin (Negative) Urine Urobilinogen (Normal) mg/dL Ur Leukocyte Esterase (Negative) Ur Culture Indicated? (NO) Urine Opiates Screen Negative (Jjaqnz=069) ng/mL Ur Barbiturates Screen Negative (Lqdicd=569) ng/mL Ur Phencyclidine Scrn Negative (Cutoff=25) ng/mL Ur Amphetamines Screen Negative (Cqpbuy=5572) ng/mL U Benzodiazepines Scrn Negative (Ploewd=927) ng/mL Urine Cocaine Screen Negative (Cutoff= 300) ng/mL U Marijuana (THC) Screen Negative (Cutoff = 50) ng/mL - Radiology Data Radiology results reviewed: Yes I reviewed the patient's radiology results. Head CT 11/11/16 03:55 IMPRESSION: No acute intracranial abnormality. D/ / Jules Whipple MD / Jules Whipple MD Interpreting Provider: Jules Whipple MD Hip X-Ray 11/11/16 03:55 IMPRESSION: No acute osseous abnormality of the right hip or pelvis evident. D/ / Roby Lee MD / Roby Lee MD Interpreting Provider: Royb Lee MD Chest X-Ray 11/11/16 07:07 IMPRESSION: Interval placement of right internal jugular central venous catheter with the tip overlying the mid SVC. No pneumothorax. Slightly increasing bibasilar opacities which may reflect atelectasis. D/ / Geena Iqbal MD / Geena Iqbal MD Interpreting Provider: Geena Iqbal MD - EKG Data EKG #1 EKG attestation: Yes I reviewed and interpreted this EKG. EKG results narrative: EKG performed 457 normal sinus rhythm 85 bpm, good R-R wave progression, normal axis, there are no ST elevations or depressions, no T-wave inversions. There are old Q waves in lead III. Intervals are within normal limits TN interval 171 QRS 98 QT QTC 362 404. There is right ventricular delay in V1-V2. Compared to old EKG performed 10/27/2016 shows consistent findings of sinus rhythm with right ventricular delay. No acute ischemic changes. Critical Care Time Critical Care Time: Yes Total Critical Care Time: 60 Attestation: The high probability of a clinically significant, sudden or life threatening deterioration of the [CV] system(s) required my full and direct attention, intervention and personal management. The aggregate critical care time was [60] minutes. This time is in addition to time spent performing reported procedures but includes the following: [X] Data Review and interpretation [X] Patient assessment and monitoring of vital signs [X] Documentation [X] Medication orders and management Attestation Statement - Attestation Attestation: I personally interviewed and examined this patient and my medical decision- making was reviewed with the ED Resident Physician, Dr. Lozano I agree with the documented findings, disposition and treatment plan as described except to the extent set forth below. Pt is a 66 yo wm, who presented to the ED with reports of falls at home secondary to gen weakness, and unstable VS. Pt was drowsy, but verbally responsive to questions, pale and c/o hip pain secondary to recent fall. No head injury and no neck/back pain per pt, but pt unable to remain awake consistently during exam questions, and arrives hypotensive. I agree with PE and documentation by Dr. Lozano as documented. Pt was treated aggressively as possible sepsis from time of arrival. Started with IVF and c-collar placed on neck and sent for imaging related to fall. Dee cx's obtained and following 3 liters fluid bolus, and IV steroids pt remained hypotensive. Supervised Dr. Lozano place central venous line and began pressors. Pt started on empiric antibx and some improvement of BP following pressors. Pt admitted to ICU for further eval/mgmt.
[2016-11-11 04:28] LABS: Basophils # 0.1 K/mcL (0.0-0.2); Basophils % 0.5 %; Eosinophils # 0.2 K/mcL (0.0-0.6); Eosinophils % 2.1 %; Hematocrit 38.9 % (37.5-50.1); Hemoglobin 13.4 g/dL (12.9-16.9); Immature Granulocytes % 0.4 % (0-4); Lymphocytes % 20.4 %; Mean Corpuscular HGB Conc 34.4 g/dL (31.6-35.5); Mean Corpuscular Hemoglobin 28.4 pg (28.0-33.3); Mean Corpuscular Volume 82.4 fL (83.0-100.0); Mean Platelet Volume 11.2 fL (9.4-12.4); Monocytes % 8.5 %; Neutrophils # 7.8 K/mcL (1.6-8.9); Red Blood Count 4.72 M/mcL (4.19-5.50); Red Cell Distribution Width 14.9 % (11.5-14.5); Segmented Neutrophils % 68.1 %
[2016-11-11 04:29] LABS: Lymphocytes # 2.4 K/mcL (0.6-4.6); Platelet Count 97 K/mcL (140-400)
[2016-11-11 04:43] LABS: Albumin 3.7 g/dL (3.5-5.0); Albumin/Globulin Ratio 0.8 (1.1-2.2); Bilirubin,Direct 0.5 mg/dL (0.0-0.5); Bilirubin,Indirect 0.4 mg/dL (0.0-1.2); Bilirubin,Total 0.9 mg/dL (0.2-1.2); Calcium 10.5 mg/dL (8.6-10.8); Globulin 4.8 g/dL (2.4-3.5); Magnesium 1.8 mg/dL (1.6-2.6); Phosphorous 4.8 mg/dL (2.3-4.7); Potassium 4.3 mEq/L (3.5-4.5); Total Protein 8.5 g/dL (6.0-8.3)
[2016-11-11] MEDS ORDERED: Hydrocortisone Sodium Succ 100 MG/2 ML VIAL IVP ONE (05:42)
[2016-11-11 05:57] LABS: Bilirubin,Urine Negative (Negative); Blood,Urine Negative (Negative); Clarity,Urine Clear (Clear); Color,Urine Yellow (Yellow); Glucose,Urine (UA) >=1000 mg/dL (Normal); Ketones,Urine Negative (Negative); Leukocyte Esterase,Urine Negative (Negative); Nitrite,Urine Negative (Negative); Protein,Urine Negative (Neg-Trace); Urobilinogen,Urine Normal (Normal)
[2016-11-11] MEDS ORDERED: Cefepime HCl 2,000 MG in D5% in Water (Mini-Bag+) 100 ML IVPB ONE (06:16)
[2016-11-11] MEDS ORDERED: D5% in Water (Mini-Bag+) 100 ML IVPB ONE (06:53)
--- NOTE | 2016-11-11 08:32 | Pulmonology History & Physical ---
<Nesha Solano - Last Filed: 11/11/16 11:51> Date of Encounter: 11/11/16 Time of Encounter: 08:25 Assessment and Plan (1) Severe sepsis Current visit: Yes Status: Acute [employer]CTIONS: Suspected hepatic encephalopathy, patient is currently lethargic/sleepy but oriented, able to follow commands. We will restart lactulose 10 mg 3 times a day patient has a history of falls and weakness, head CT negative with no focal neurological deficit. Suspect his falls were secondary to hypovolemia Pulmonary: Chest x-ray shows no acute process, oxygen saturations greater than 94% on room air Cardiovascular: Hypotension in the setting of sepsis versus hypovolemia with lactic acidosis. Hypotension is improving following a 3L bolus of fluid. We will give a 500 bolus of LR and reassess volume status. Replete as necessary. GI: Nutrition: Patient is currently nothing by mouth, will reassess and advance diet based on patient's neurologic status GI Prophylaxis: Protonix IV while nothing by mouth. Patient complains of chronic constipation with hard stools. Last stool yesterday a.m. Will restart lactulose 3 times a day Renal: MJ suspected to be secondary to hypovolemia and dehydration as patient appears dry on exam, with serum creatinine of 2.67, patient has had 3L and then a 500 mL bolus of LR. Will recheck BMP this afternoon ID: Patient is afebrile, no obvious source of infection. No cough, shortness of breath. Blood cultures, urine culture, sputum culture have been ordered. Greg a swab of the nares sent. Patient has received 1 dose of cefepime in the ER. Do not suspect that this is an infectious process, but that it is secondary to hypovolemia. We will de-escalate antibiotics as culture results come in. Heme/Onc: Xarelto for DVT prophylaxis. H/H stable Endorcine: Patient is a poorly controlled diabetic. Hemoglobin A1c on 10/27/16 11.1%. Her med list the patient is on Lantus 160 units twice a day with a high- dose sliding scale in addition to 25 units prandial. Blood sugars have been uncontrolled, are increasing to the mid 300s despite high-dose sliding scale. Patient has greater than 1000mg of glucose in his urine. Will start the patient on an insulin drip per protocol. Lines: all lines checked and no evidence of infections: CVC in the right IJ Skin: skin care to prevent pressure ulcers per nursing routine care. Patient is stable to go to a telemetry floor once a bed is available. CODE STATUS: Full Code (2) Lactic acidosis Current visit: No Status: Acute (3) Hypotension Current visit: Yes Status: Acute Qualifiers: Hypotension type: other hypotension type Qualified Code(s): I95.89 - Other hypotension (4) Frequent falls Current visit: Yes Status: Acute (5) Acute kidney injury Current visit: No Status: Acute (6) DM2 (diabetes mellitus, type 2) Current visit: Yes Status: Chronic Qualifiers: Diabetes mellitus complication status: with hyperglycemia Diabetes mellitus terminal manager insulin use: with mcfp use Qualified Code(s): E11.65 - Type 2 diabetes mellitus with hyperglycemia; Z79.4 - jail (current) use of insulin (7) Cirrhosis Current visit: No Status: Chronic Qualifiers: Hepatic cirrhosis type: unspecified hepatic cirrhosis Ascites presence: without ascites Qualified Code(s): K74.60 - Unspecified cirrhosis of liver (8) CAD (coronary artery disease) Current visit: No Status: Chronic Qualifiers: Coronary Disease-Associated Artery/Lesion type: [place] artery [place] vs. transplanted heart: [place] heart Associated angina: without angina Qualified Code(s): I25.10 - Atherosclerotic heart disease of [place] coronary artery without angina pectoris (9) Chronic obstructive pulmonary disease Current visit: No Status: Chronic Qualifiers: COPD type: chronic bronchitis Chronic bronchitis type: simple Qualified Code(s): J41.0 - Simple chronic bronchitis (10) DVT prophylaxis Current visit: Yes Status: Acute [employer]: Hx of hepatic encephalopathy, patient is currently lethargic/sleepy but oriented, able to follow commands. Head CT negative. Pulmonary: Cardiovascular: GI: Nutrition: GI Prophylaxis Renal: ID: Patient is afebrile, no obvious source of infection. No cough, shortness of breath. Blood cultures, urine culture, sputum culture have been ordered. Patient has received 1 dose Heme/Onc: DVT Prophylaxis Endorcine: Lines: all lines checked and no evidence of infections: CVC in the right IJ Skin: skin care to prevent pressure ulcers per nursing routine care. CODE STATUS: Full Code History of Present Illness Chief complaint: Multiple falls HPI: Mr. Ramirez is a 66 year old male with PMH non-alcoholic fatty liver disease, diabetes, adrenal insufficiency, history of PE and CAD who presented to the emergency department after multiple falls yesterday evening and altered mental status. The patient has chronic weakness of the lower extremities and has had multiple admissions over the past several months for similar symptoms. The patient states that yesterday morning around 0730 he was up trying to get to the bathroom and was not using his walker when he states that his right leg gave out and caused him to fall to his knees. He fell a second time around 0900 , at which time he states that he felt a similar weakness in his legs and fell to his right landing on his hip. He states that he fell again a few hours later. He denies LOC or injury to his head with each fall. He is taking the Route toe for a history of. He does report that he experienced lightheadedness and shortness of breath prior to these falls as well, however he now denies any dizziness, shortness of breath, chest pain. He does complain of abdominal tenderness, but cannot locate a specific portion of his abdomen that hurts. He denies fever, chills, headache, neck pain, nausea, vomiting, diarrhea. He does state that she has had constipation. He states he last had a bowel movement yesterday morning and that it was "hard". He denies melena or bloody stool. He denies any recent illness. Past Med Surg Social Fam HX - Past Medical History Medical history: arthritis, cirrhosis, CHF, COPD, coronary artery disease, diabetes, GERD, hyperlipidemia, hypertension, liver disease, osteoporosis, TIA Psychiatric history: anxiety, depression, panic disorder, PTSD, previous psychiatric hospitalization - Past Surgical History Surgical History: appendectomy, cholecystectomy, herniorrhaphy, knee replacement , other - Social History Smoking Status: Never smoker Smokeless Tobacco Status: No Alcohol use: none Drug use: none - Family History Mother Living Status: Hx Family Cancer: Yes Father Living Status: Hx Family Cardiac Disorders: No Medications and Allergies Cholecalciferol (Vitamin D3) [Vitamin D] 2,000 unit PO DAILY 05/13/15 [History] Insulin ASPART [NovoLOG] 48 - 100 unit SQ TIDWM 05/13/15 [History] Aspirin Enteric Coated [Aspirin EC] 81 mg PO DAILY 11/13/15 [History] Atorvastatin [Lipitor] 40 mg PO HS 11/13/15 [History] Insulin Glargine,Hum.rec.anlog [Lantus Solostar] 160 unit SQ BID 11/13/15 [ History] Lactulose 15 gm PO BID 11/13/15 [History] Omeprazole [PriLOSEC] 20 mg PO DAILY 11/13/15 [History] Tamsulosin [Flomax] 0.4 mg PO DAILY 11/13/15 [History] Furosemide [Lasix] 40 mg PO DAILY 05/16/16 [History] Rivaroxaban [Xarelto] 10 mg PO DAILY 05/16/16 [History] risperiDONE [Risperdal] 3 mg PO HS 05/16/16 [History] Atenolol [Tenormin] 50 mg PO DAILY 05/29/16 [History] Ipratropium/Albuterol Neb [Duoneb] 3 ml IH QID 08/10/16 [History] Lisinopril [Zestril] 2.5 mg PO HS #0 09/14/16 [Rx] DiphenhydraMINE [Benadryl] 50 mg PO HS 10/27/16 [History] Sertraline [Zoloft] 50 mg PO DAILY 10/27/16 [History] Spironolactone [Aldactone] 50 mg PO DAILY 10/27/16 [History] Hydrocortisone [Cortef] 5 mg PO QPM #30 tablet 10/28/16 [Rx] Venlafaxine HCl [Effexor Xr] 75 mg PO DAILY 11/11/16 [History] Allergies Iodinated Contrast- Oral and IV Dye Allergy (Verified 11/11/16 08:37) Difficulty Breathing ketorolac [From Toradol] Allergy (Verified 11/11/16 08:37) Nausea Penicillins Allergy (Verified 11/11/16 08:37) Rash butorphanol [From Stadol] Adverse Reaction (Verified 11/11/16 08:37) Nausea celecoxib Adverse Reaction (Verified 11/11/16 08:37) [facility] gabapentin Adverse Reaction (Verified 11/11/16 08:37) unknown [facility] list. mirtazapine Adverse Reaction (Verified 11/11/16 08:37) [facility] tramadol Adverse Reaction (Verified 11/11/16 08:37) [facility] vancomycin Adverse Reaction (Verified 11/11/16 08:37) unknown listed on [facility] med rec All Systems: A 10-system review of systems was performed and is negative for pertinent findings except as documented above in the HPI. - Constitutional Constitutional: frequent falls, weakness, no chills, no fever(s), no headache(s) - EENT Nose, mouth and throat: no dizziness, no headache(s) - Cardiovascular Cardiovascular: no chest pain, no diaphoresis, no palpitations, no syncope - Respiratory Respiratory: no dyspnea - Gastrointestinal Gastrointestinal: abdominal pain, other (Constipation), no diarrhea, no hematemesis, no hematochezia, no loose stools, no melena, no nausea, no vomiting - Genitourinary Genitourinary: no dysuria - Musculoskeletal Musculoskeletal: weakness, no neck pain - Integumentary Integumentary: no erythema, no rash - Neurological Neurological: frequent falls, weakness, no syncope - Psychiatric Psychiatric: no anxiety, no depression - Endocrine Endocrine: no palpitations - Hematologic/Lymphatic Hematologic/Lymphatic: no easy bruising Physical Examination Vital Signs: Vital Signs, Last 4 Hours Resp BP 11/11/16 08:10 18 97/49 General appearance: no acute distress, lethargic Eyes: nonicteric ENT: oropharynx dry Neck: supple, no lymphadenopathy, no JVD Effort: normal Inspection: normal Auscultation: bilateral: clear Cardiovascular: regular rate and rhythm Gastrointestinal: normoactive bowel sounds, soft, tender, non-distended Integumentary: normal, other (Dry skin of bilateral lower extremity) Extremities: no cyanosis, no edema, pulses normal non-focal exam, other (Pupils pinpoint but reactive to light) mood appropriate, other (Patient lethargic, falling asleep during examination) Results - Laboratory Findings CBC and BMP: 11/11/16 04:18 11/11/16 04:18 Abnormal lab findings: Abnormal lab results WBC 11.5 K/mcL (4.3-11.1) H 11/11/16 04:18 MCV 82.4 fL (83.0-100.0) L 11/11/16 04:18 RDW 14.9 % (11.5-14.5) H 11/11/16 04:18 Plt Count 97 K/mcL (140-400) L 11/11/16 04:18 Sodium 131 mEq/L (136-145) L 11/11/16 04:18 Chloride 91 mEq/L (98-109) L 11/11/16 04:18 BUN 48 mg/dL (8-26) H 11/11/16 04:18 Creatinine 2.97 mg/dL (0.72-1.25) H 11/11/16 04:18 Est GFR ( Amer) 26 (> 60) L 11/11/16 04:18 Est GFR (Non-Af Amer) 21 (> 60) L 11/11/16 04:18 Glucose 268 mg/dL (70-99) H 11/11/16 04:18 POC Glucose 255 (58-89) H 11/11/16 04:03 Lactic Acid 3.6 mmol/L (0.5-2.2) H 11/11/16 06:25 Phosphorus 4.8 mg/dL (2.3-4.7) H 11/11/16 04:18 AST 41 Units/L (5-34) H 11/11/16 04:18 Alkaline Phosphatase 162 Units/L (38-126) H 11/11/16 04:18 Serum Total Protein 8.5 g/dL (6.0-8.3) H 11/11/16 04:18 Globulin 4.8 g/dL (2.4-3.5) H 11/11/16 04:18 Albumin/Globulin Ratio 0.8 (1.1-2.2) L 11/11/16 04:18 Ur Specific [place] 1.030 (1.010-1.025) H 11/11/16 05:50 Urine Glucose (UA) >=1000 mg/dL (Normal) H 11/11/16 05:50 - Diagnostic Findings Chest x-ray: report reviewed, image reviewed <Eliezer Smith W - Last Filed: 11/11/16 12:34> Date of Encounter: 11/11/16 History of Present Illness HPI: Mr. Ramirez is a 66 year old male All Systems: A 10-system review of systems was performed and is negative for pertinent findings except as documented above in the HPI. Physical Examination Vital Signs: Vital Signs, Last 4 Hours Resp BP 11/11/16 08:10 18 97/49 Results - Laboratory Findings CBC and BMP: 11/11/16 04:18 11/11/16 04:18 Abnormal lab findings: Abnormal lab results WBC 11.5 K/mcL (4.3-11.1) H 11/11/16 04:18 MCV 82.4 fL (83.0-100.0) L 11/11/16 04:18 RDW 14.9 % (11.5-14.5) H 11/11/16 04:18 Plt Count 97 K/mcL (140-400) L 11/11/16 04:18 Sodium 131 mEq/L (136-145) L 11/11/16 04:18 Chloride 91 mEq/L (98-109) L 11/11/16 04:18 BUN 48 mg/dL (8-26) H 11/11/16 04:18 Creatinine 2.97 mg/dL (0.72-1.25) H 11/11/16 04:18 Est GFR ( Amer) 26 (> 60) L 11/11/16 04:18 Est GFR (Non-Af Amer) 21 (> 60) L 11/11/16 04:18 Glucose 268 mg/dL (70-99) H 11/11/16 04:18 POC Glucose 309 (58-89) H 11/11/16 08:34 Lactic Acid 3.6 mmol/L (0.5-2.2) H 11/11/16 06:25 Phosphorus 4.8 mg/dL (2.3-4.7) H 11/11/16 04:18 AST 41 Units/L (5-34) H 11/11/16 04:18 Alkaline Phosphatase 162 Units/L (38-126) H 11/11/16 04:18 Serum Total Protein 8.5 g/dL (6.0-8.3) H 11/11/16 04:18 Globulin 4.8 g/dL (2.4-3.5) H 11/11/16 04:18 Albumin/Globulin Ratio 0.8 (1.1-2.2) L 11/11/16 04:18 Ur Specific [place] 1.030 (1.010-1.025) H 11/11/16 05:50 Urine Glucose (UA) >=1000 mg/dL (Normal) H 11/11/16 05:50 - Attending Attestation I examined this patient and my medical decision-making was reviewed with the TINNING EQUIPMENT TENDER/PA/Advanced Practice Nurse/Resident Physician. I agree with the documented findings, disposition and treatment plan as described except to the extent set forth below. Patient seen and examined at bedside Labs, radiology, chart personally reviewed. All lines examined without evidence of infection. Neuropsych: Suspected Hepatic Encephalopathy. Restart Lactulose. C/o falls and weakness CT head negative. No focal deficit. Likely related to hypovolemia. Pulm: Stable acceptable O2 sats on rmair. CXR no acute process. Cards:Hypotension s/t sepsis vs hypovolemia with lactic acidosis improving with fluids. ECG no STEMI trop wnl. FEN-GI:Abdominal CT negative. appears to lethargic for diet at present so NPO reevaluate later today. Renal: Mild MJ likely prerenal fluids given. Repeat Renal Function later today. follow UOP. Mendez placed. ID: Covering for presumed Severe Sepsis with Abx. Lactate trending down. Heme/Onc: cont xarelto for history of VTE Endo: History of Adrenal Insuff. Stress dose hydrocortisone given. History fo DM2 cont to monitor blood sugars. SSI for now. Hold metformin. Integ/MSK: Skin care per protocol to prevent ulcers. CODE: Full Code.
[2016-11-11 09:04] LABS: Amphetamine Screen,Urine Negative ng/mL (Cutoff=1000); Barbiturate Screen,Urine Negative ng/mL (Cutoff=200); Benzodiazepines Screen,Urine Negative ng/mL (Cutoff=200); Cannabinoid Screen,Urine Negative ng/mL (Cutoff = 50); Cocaine Screen,Urine Negative ng/mL (Cutoff= 300); Opiate Screen,Urine Negative ng/mL (Cutoff=300); Phencyclidine Screen,Urine Negative ng/mL (Cutoff=25)
[2016-11-11] MEDS ORDERED: Ondansetron 4 MG/2 ML VIAL IVP PRN ×2 (09:06→13:10)
[2016-11-11] MEDS ORDERED: Naloxone 0.4 MG/ML INJ IVP PRN ×2 (09:06→13:10)
[2016-11-11] MEDS ORDERED: Ringers Solution, Lactated 500 ML IVC ONE (09:13)
[2016-11-11] MEDS ORDERED: Pantoprazole 40 MG VIAL IVPB SCH (09:15)
[2016-11-11] MEDS ORDERED: Ringers Solution, Lactated 1,000 ML ONE (09:15)
[2016-11-11 09:33] LABS: Acetaminophen < 1.0 mcg/mL (10-30); Salicylate < 5.0 mg/dL (15-30)
[2016-11-11] MEDS ORDERED: *HR* Dextrose 50 % in Water (Syg) 50 ML SYRINGE IVP PRN ×2 (09:33→13:10)
[2016-11-11] MEDS ORDERED: Dextrose Gel 15 GM PO PRN ×4 (09:33→13:10)
[2016-11-11] MEDS ORDERED: D5% in Water 1,000 ML IVC PRN ×2 (09:33→13:10)
[2016-11-11] MEDS ORDERED: Lactulose Oral Soln 20 GM/30 ML UDC PO SCH (10:45)
[2016-11-11] MEDS ORDERED: Hydrocortisone 10 MG TABLET PO SCH (10:47)
[2016-11-11] MEDS ORDERED: Aspirin Enteric Coated 81 MG Tablet PO SCH (11:00)
[2016-11-11] MEDS ORDERED: *HR* Rivaroxaban 10 MG TABLET PO SCH (11:00)
[2016-11-11] MEDS ORDERED: Venlafaxine XR (24 HR) 75 MG CAP.ER.24H PO SCH (11:00)
[2016-11-11] MEDS ORDERED: Insulin DETEMIR 100 UNIT/ML X5UNITS SQ ONE (11:08)
[2016-11-11] MEDS ORDERED: Insulin Human Regular 100 UNIT in 0.9 % Sodium Chloride 100 ML IVC SCH (11:15)
[2016-11-11] MEDS ORDERED: Insulin LISPRO 300 UNITS/3 ML VIAL SQ SCH (12:00)
[2016-11-11] MEDS ORDERED: Aspirin 81 MG TAB.CHEW ONE (12:17)
[2016-11-11] MEDS ORDERED: Ipratropium/Albuterol Neb 3 ML IH SCH (13:00)
[2016-11-11] MEDS: Insulin Human Regular 100 UNIT in 0.9 % Sodium Chloride 100 ML IVC SCH ×3 (14:15→18:10)
--- NOTE | 2016-11-11 15:47 | Electrocardiograph Report ---
[employer] Test Date: 2016-11-11 Pat Name: Teddy Ramirez Department: 105 Room: 2N03 Gender: M Sweatband Shaper: : 1950 Requested By: Rickie Lozano Order Number: [id number] Gary MD: Brenton Gramajo MD Measurements Intervals [place] Rate: 85 P: 41 MD: 171 QRS: -4 QRSD: 98 T: 32 QT: 362 QTc: 404 Interpretive Statements SINUS RHYTHM POSSIBLE RIGHT VENTRICULAR CONDUCTION DELAY [RSR (QR) IN V1/V2] PROBABLE INFERIOR MYOCARDIAL INFARCTION [35 ms Q WAVE IN II/aVF], PROBABLY OLD Electronically Signed On 11-11-2016 15:45:36 EDT by Brenton Gramajo MD
[2016-11-11] MEDS: Ipratropium/Albuterol Neb 3 ML IH SCH ×2 (16:28→22:54)
[2016-11-11] MEDS: Hydrocortisone 10 MG TABLET PO SCH ×2 (16:59→23:47)
[2016-11-11] MEDS: Lactulose Oral Soln 20 GM/30 ML UDC PO SCH ×3 (16:59→21:09)
[2016-11-11] MEDS ORDERED: Insulin DETEMIR 100 UNIT/ML X5UNITS SQ SCH (21:00)
[2016-11-11] MEDS ORDERED: RisperiDAL 3 MG TABLET PO SCH (21:00)
[2016-11-11] MEDS: Insulin DETEMIR 100 UNIT/ML X5UNITS SQ SCH (21:09)
[2016-11-11] MEDS: RisperiDAL 3 MG TABLET PO SCH (21:09)
[2016-11-12] MEDS: Ipratropium/Albuterol Neb 3 ML IH SCH ×2 (03:38→10:55)
[2016-11-12] MEDS: Hydrocortisone 10 MG TABLET PO SCH ×4 (06:28→23:28)
[2016-11-12] MEDS: Pantoprazole 40 MG VIAL IVPB SCH (07:51)
[2016-11-12] MEDS: Lactulose Oral Soln 20 GM/30 ML UDC PO SCH ×3 (07:51→20:46)
[2016-11-12] MEDS: Aspirin Enteric Coated 81 MG Tablet PO SCH (07:52)
[2016-11-12] MEDS: Cholecalciferol (D-3) 1,000 UNIT TABLET PO SCH (07:52)
[2016-11-12] MEDS: *HR* Rivaroxaban 10 MG TABLET PO SCH (07:52)
[2016-11-12] MEDS: Venlafaxine XR (24 HR) 75 MG CAP.ER.24H PO SCH (07:52)
[2016-11-12] MEDS: Insulin DETEMIR 100 UNIT/ML X5UNITS SQ SCH ×2 (08:05→22:25)
[2016-11-12] MEDS: Insulin LISPRO 300 UNITS/3 ML VIAL SQ SCH ×4 (08:07→20:45)
[2016-11-12] MEDS ORDERED: Cholecalciferol (D-3) 1,000 UNIT TABLET PO SCH (09:00)
[2016-11-12 09:17] LABS: Mean Corpuscular HGB Conc 34.3 g/dL (31.6-35.5)
[2016-11-12 09:19] LABS: Hematocrit 31.5 % (37.5-50.1); Hemoglobin 10.8 g/dL (12.9-16.9); Immature Platelets 7.4 % (1.1-6.1); Lymphocytes # 0.8 K/mcL (0.6-4.6); Mean Corpuscular Hemoglobin 29.1 pg (28.0-33.3); Mean Corpuscular Volume 84.9 fL (83.0-100.0); Mean Platelet Volume 11.7 fL (9.4-12.4); Red Blood Count 3.71 M/mcL (4.19-5.50); Red Cell Distribution Width 15.1 % (11.5-14.5)
[2016-11-12 09:30] LABS: BUN/Creatinine Ratio 31 (6-26); Blood Urea Nitrogen 43 mg/dL (8-26); Calcium 8.5 mg/dL (8.6-10.8); Carbon Dioxide 25 mEq/L (19-29); Chloride 101 mEq/L (98-109); Glucose 233 mg/dL (70-99); Osmolality,Calculated 290 (280-300); Phosphorous 3.1 mg/dL (2.3-4.7); Potassium 4.7 mEq/L (3.5-4.5); Sodium 131 mEq/L (136-145); eGFR For African Americans > 60 (> 60); eGFR For Non-African Americans 51 (> 60)
[2016-11-12 09:46] LABS: Platelet Count 52 K/mcL (140-400)
[2016-11-12] MEDS ORDERED: *HR* Morphine 2 MG/ML SYRINGE IVP PRN (10:20)
--- NOTE | 2016-11-12 10:24 | Internal Med Progress Note ---
<Foreign Solano - Last Filed: 11/12/16 15:07> Date of Encounter: 11/12/16 Time of Encounter: 10:23 - Assessment and plan (1) Severe sepsis Current Visit: Yes Status: Acute Assessment and plan: Patient admitted with lactic acidosis at 6.1, acute on chronic kidney disease, significant hypotension was originally admitted to the ICU after receiving 100 mg Cortef and multiple boluses of IV fluids. - Current blood pressure is stable, patient is back on normal home dose of Cortef. Antihypertensives are held. Possible cause of significant hypotension possibly due to adrenal insufficiency and missed hydrocortisone doses. Plan: - Continue with Cortef - Monitor blood pressure - Monitor for other signs of infection. (2) Hyponatremia Current Visit: No Status: Acute Assessment and plan: Hyponatremia likely secondary to adrenal insufficiency. Current sodium 131, potassium 4.7 and stable blood pressures. Plan: - Monitor sodium with daily labs. (3) DM2 (diabetes mellitus, type 2) Current Visit: Yes Status: Chronic Assessment and plan: Patient is an uncontrolled type II diabetic who does not follow a strict diet. His last hemoglobin A1c was 11.5 and was difficult to control with his prior hospitalization. Plan: - Continue Levemir 100 units subcutaneous twice a day - Continue high-dose sliding scale insulin - Continue ACHS glucose checks. Qualifiers: Diabetes mellitus complication status: with hyperglycemia Diabetes mellitus machine long goods helper insulin use: with snf use Qualified Code(s): E11.65 - Type 2 diabetes mellitus with hyperglycemia; Z79.4 - intermediate teacher (current) use of insulin (4) Cirrhosis Current Visit: No Status: Chronic Assessment and plan: Patient has known liver cirrhosis. - Currently stable - Ammonia 33 Plan: - Continue home dose lactulose - Monitor mental status. Qualifiers: Hepatic cirrhosis type: unspecified hepatic cirrhosis Ascites presence: without ascites Qualified Code(s): K74.60 - Unspecified cirrhosis of liver (5) CAD (coronary artery disease), [place] coronary artery Current Visit: No Status: Chronic Assessment and plan: No history of coronary artery disease: Continue aspirin 81 mg, atorvastatin 40 mg by mouth at bedtime. Holding antihypertensives and beta pranay at this time. Plan to restart when patient is stable. Qualifiers: [place] vs. transplanted heart: [place] heart Associated angina: angina presence unspecified Qualified Code(s): I25.10 - Atherosclerotic heart disease of [place] coronary artery without angina pectoris (6) Frequent falls Current Visit: Yes Status: Acute Assessment and plan: Patient suffered multiple falls in the setting of hypotension. The patient also complains of chronic weakness in his right lower extremity unchanged since prior to admission. Plan: - Continue to monitor patient mental status during inpatient stay - Physical therapy to evaluate - Patient needs to follow up with orthopedics as planned prior to admission. - Assisted device for walking. (7) Lactic acidosis Current Visit: Yes Status: Acute Assessment and plan: Lactic acidosis likely secondary to hypotension and poor perfusion resolved. (8) Hypotension Current Visit: Yes Status: Acute Assessment and plan: Hypotension suspected secondary to adrenal insufficiency. Patient received 100 mg Cortef in the emergency department and IV fluids. Patient is continued on home dose Cortef and blood pressures are stable. Plan: - To hold antihypertensives until blood pressures been stable for 24 hours. Qualifiers: Hypotension type: other hypotension type Qualified Code(s): I95.89 - Other hypotension (9) MJ (acute kidney injury) Current Visit: Yes Status: Acute Assessment and plan: Acute kidney injury in the setting of hypotension and dehydration. Patient is received IV fluid rehydration and stabilization of his blood pressure. Renal function improving. Plan: - Continue by mouth intake - Continue glucose control - Continue taking Cortef - Avoid nephrotoxic medications and renally dose antibiotics - Recheck with BMP in a.m. (10) Adrenal insufficiency Current Visit: No Status: Acute Assessment and plan: Patient has a history with recent diagnosis of adrenal insufficiency and has been taking Cortef at home. Suspect that he may have missed a couple doses as he came in hypotensive without findings of infection. - Blood pressure stable patient is slightly hyponatremic, potassium stable Plan: - Continue Cortef as scheduled. - Subjective Interval history: Mr. Ramirez 66M has been seen and evaluated patient bedside this morning. He is alert awake oriented no acute distress. He does have some mild discomfort in his right lower extremity which she said is been feeling weak for roughly 1 month and he fell prior to admission. He denies any headaches, blurry vision, syncopal episodes, nausea vomiting diarrhea constipation, chest pain, palpitations. He believes that it may be one of his blood pressure medications causing his low blood pressure is unsure what medications he is taking. - Constitutional Vitals: Temp Pulse Resp BP Pulse Ox 98.0 F 75 14 123/70 96 11/12/16 07:45 11/12/16 07:45 11/12/16 07:45 11/12/16 07:45 11/12/16 07:45 Exam: General: Patient alert, awake, oriented 3, interactive, in no acute distress HEENT: Normocephalic, atraumatic, pupils equal reactive to light, nasal cavity pain and open septum median position, oral mucosa moist, uvula midline, neck supple trachea midline no palpable lymphadenopathy, no thyromegaly. Chest: Symmetric bilateral correlating with respiratory effort, effort nonlabored. Cardiac: Regular rate and rhythm, positive S1, S2, no bruits appreciated bilateral carotids, Radial pulses 2+ bilateral, posterior tibial and dorsal pedal pulses 2+ bilateral. Respiratory: Clear to auscultation all lung [place] Abdomen: Soft, nontender, positive bowel sounds, no palpable masses appreciated on examination Extremities: Symmetric bilateral, no erythema or edema, dry skin bilateral lower extremities patient moving all 4 extremities spontaneously. Neurologic: No focal deficits appreciated on examination. Face symmetric, muscle strength symmetric bilateral upper and lower extremities. Internal Medicine: Result - Labs CBC & Chem 7: 11/12/16 08:30 11/12/16 08:30 Labs: Short CBC 11/12/16 Range/Units 08:30 WBC 5.8 (4.3-11.1) K/mcL Hgb 10.8 L D (12.9-16.9) g/dL Hct 31.5 L (37.5-50.1) % Plt Count 52 L (140-400) K/mcL BMP 11/12/16 08:30 Sodium 131 L Potassium 4.7 H Chloride 101 Carbon Dioxide 25 BUN 43 H Creatinine 1.40 H D Glucose 233 H Calcium 8.5 L D Liver Function 11/12/16 Range/Units 08:30 Albumin 3.0 L (3.5-5.0) g/dL Consult Discharge Plan - Plan [facility] Provider[facility] - 11/20/16 10:00 am <Wiley Painter - Last Filed: 11/12/16 15:45> Date of Encounter: 11/12/16 - Constitutional Vitals: Temp Pulse Resp BP Pulse Ox 97.8 F 84 14 135/64 97 11/12/16 15:20 11/12/16 15:20 11/12/16 15:20 11/12/16 15:20 11/12/16 15:20 Internal Medicine: Result - Labs CBC & Chem 7: 11/12/16 08:30 11/12/16 08:30 Labs: Short CBC 11/12/16 Range/Units 08:30 WBC 5.8 (4.3-11.1) K/mcL Hgb 10.8 L D (12.9-16.9) g/dL Hct 31.5 L (37.5-50.1) % Plt Count 52 L (140-400) K/mcL Neutrophils # 4.9 (1.6-8.9) K/mcL BMP 11/12/16 08:30 Sodium 131 L Potassium 4.7 H Chloride 101 Carbon Dioxide 25 BUN 43 H Creatinine 1.40 H D Glucose 233 H Calcium 8.5 L D Liver Function 11/12/16 Range/Units 08:30 Albumin 3.0 L (3.5-5.0) g/dL - Attending Attestation I examined this patient and my medical decision-making was reviewed with the PROTECTION CONSULTANT/PA/Advanced Practice Nurse/Resident Physician. I agree with the documented findings, disposition and treatment plan as described except to the extent set forth below. adrenal insuf, continue with steroids, insulin therapy. D/W patient. BP improved.
[2016-11-12 11:13] LABS: Monocytes # 0.1 K/mcL (0.0-1.3); Neutrophils # 4.9 K/mcL (1.6-8.9); Reactive Lymphocytes Present (Not Present)
[2016-11-12 11:14] LABS: Platelet Estimate Decreased (Normal)
[2016-11-12] MEDS ORDERED: Ipratropium/Albuterol Neb 3 ML IH PRN (11:23)
[2016-11-12] MEDS: RisperiDAL 3 MG TABLET PO SCH (20:46)
[2016-11-12] MEDS: *HR* HYDROcodone/Acet 5/325 mg TABLET PO PRN (23:27)
[2016-11-13] MEDS: *HR* HYDROcodone/Acet 5/325 mg TABLET PO PRN ×4 (04:11→23:11)
[2016-11-13 06:08] LABS: Immature Granulocytes % 0.5 % (0-4)
[2016-11-13] MEDS: Hydrocortisone 10 MG TABLET PO SCH ×4 (06:08→23:11)
[2016-11-13 06:10] LABS: Hematocrit 31.4 % (37.5-50.1); Hemoglobin 10.9 g/dL (12.9-16.9); Immature Platelets 6.9 % (1.1-6.1); Lymphocytes # 0.7 K/mcL (0.6-4.6); Lymphocytes % 15.8 %; Mean Corpuscular HGB Conc 34.7 g/dL (31.6-35.5); Mean Corpuscular Hemoglobin 28.5 pg (28.0-33.3); Mean Corpuscular Volume 82.2 fL (83.0-100.0); Mean Platelet Volume 11.2 fL (9.4-12.4); Monocytes # 0.2 K/mcL (0.0-1.3); Monocytes % 3.6 %; Neutrophils # 3.3 K/mcL (1.6-8.9); Red Blood Count 3.82 M/mcL (4.19-5.50); Red Cell Distribution Width 14.6 % (11.5-14.5); Segmented Neutrophils % 80.1 %
[2016-11-13 06:13] LABS: Platelet Count 53 K/mcL (140-400)
[2016-11-13 06:24] LABS: Alanine Aminotransferase 34 Units/L (0-55); Albumin 3.2 g/dL (3.5-5.0); Albumin/Globulin Ratio 0.8 (1.1-2.2); Alkaline Phosphatase 137 Units/L (38-126); Aspartate Amino Transferase 28 Units/L (5-34); BUN/Creatinine Ratio 27 (6-26); Blood Urea Nitrogen 33 mg/dL (8-26); Calcium 8.7 mg/dL (8.6-10.8); Carbon Dioxide 20 mEq/L (19-29); Chloride 98 mEq/L (98-109); Globulin 3.9 g/dL (2.4-3.5); Glucose 310 mg/dL (70-99); Osmolality,Calculated 289 (280-300); Potassium 4.3 mEq/L (3.5-4.5); Sodium 130 mEq/L (136-145); Total Protein 7.1 g/dL (6.0-8.3); eGFR For African Americans > 60 (> 60); eGFR For Non-African Americans 59 (> 60)
[2016-11-13] MEDS: Lactulose Oral Soln 20 GM/30 ML UDC PO SCH ×3 (07:56→20:19)
[2016-11-13] MEDS: Insulin DETEMIR 100 UNIT/ML X5UNITS SQ SCH ×2 (07:56→20:27)
[2016-11-13] MEDS: Cholecalciferol (D-3) 1,000 UNIT TABLET PO SCH (07:57)
[2016-11-13] MEDS: Pantoprazole 40 MG VIAL IVPB SCH (07:57)
[2016-11-13] MEDS: *HR* Rivaroxaban 10 MG TABLET PO SCH (07:57)
[2016-11-13] MEDS: Aspirin Enteric Coated 81 MG Tablet PO SCH (07:57)
[2016-11-13] MEDS: Venlafaxine XR (24 HR) 75 MG CAP.ER.24H PO SCH (07:57)
[2016-11-13] MEDS: Insulin LISPRO 300 UNITS/3 ML VIAL SQ SCH ×4 (07:58→20:15)
--- NOTE | 2016-11-13 08:48 | Discharge Summary ---
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 transplanted heart: [place] heart Associated angina: angina presence unspecified Qualified Code(s): I25.10 - Atherosclerotic heart disease of [place] coronary artery without angina pectoris (6) Frequent falls Priority: Primary Status: Acute (7) Lactic acidosis Priority: Primary Status: Acute (8) Hypotension Priority: Primary Status: Acute Qualifiers: Hypotension type: other hypotension type Qualified Code(s): I95.89 - Other hypotension (9) MJ (acute kidney injury) Priority: Primary Status: Acute (10) Adrenal insufficiency Priority: Primary Status: Acute - Discharge Medications Prescriptions: Hydrocortisone [Cortef] 10 mg PO DAILY #30 tablet Home Medications: Cholecalciferol (Vitamin D3) [Vitamin D] 2,000 unit PO DAILY 05/13/15 [History] Insulin ASPART [NovoLOG] 48 - 100 unit SQ TIDWM 05/13/15 [History] Aspirin Enteric Coated [Aspirin EC] 81 mg PO DAILY 11/13/15 [History] Atorvastatin [Lipitor] 40 mg PO HS 11/13/15 [History] Insulin Glargine,Hum.rec.anlog [Lantus Solostar] 160 unit SQ BID 11/13/15 [ History] Lactulose 15 gm PO BID 11/13/15 [History] Omeprazole [PriLOSEC] 20 mg PO DAILY 11/13/15 [History] Tamsulosin [Flomax] 0.4 mg PO DAILY 11/13/15 [History] Furosemide [Lasix] 40 mg PO DAILY 05/16/16 [History] Rivaroxaban [Xarelto] 10 mg PO DAILY 05/16/16 [History] risperiDONE [Risperdal] 3 mg PO HS 05/16/16 [History] Atenolol [Tenormin] 50 mg PO DAILY 05/29/16 [History] Ipratropium/Albuterol Neb [Duoneb] 3 ml IH QID 08/10/16 [History] Lisinopril [Zestril] 2.5 mg PO HS #0 09/14/16 [Rx] DiphenhydraMINE [Benadryl] 50 mg PO HS 10/27/16 [History] Sertraline [Zoloft] 50 mg PO DAILY 10/27/16 [History] Spironolactone [Aldactone] 50 mg PO DAILY 10/27/16 [History] Venlafaxine HCl [Effexor Xr] 75 mg PO DAILY 11/11/16 [History] HYDROcodone/Acet 5/325 mg [[place]udley 5-325 mg] 1 tab PO Q4H PRN 11/12/16 [History] Hydrocortisone [Cortef] 10 mg PO DAILY #30 tablet 11/13/16 [Rx] Allergies/Adverse Reactions: Allergies Iodinated Contrast- Oral and IV Dye Allergy (Verified 11/11/16 08:37) Difficulty Breathing ketorolac [From Toradol] Allergy (Verified 11/11/16 08:37) Nausea Penicillins Allergy (Verified 11/11/16 08:37) Rash butorphanol [From Stadol] Adverse Reaction (Verified 11/11/16 08:37) Nausea celecoxib Adverse Reaction (Verified 11/11/16 08:37) unknown listed on [facility] rec gabapentin Adverse Reaction (Verified 11/11/16 08:37) unknown [facility] mirtazapine Adverse Reaction (Verified 11/11/16 08:37) unknown listed on [facility] rec tramadol Adverse Reaction (Verified 11/11/16 08:37) unknown listed on [facility] rec vancomycin Adverse Reaction (Verified 11/11/16 08:37) unknown listed on [facility] rec Date of admission: 11/11/16 07:48 [facility] care physician: [facility] Consults: 11/12/16 10:46 Consult to Physical Therapy [CONS] Routine Comment: Evaluate, develop and implement POC Reason for Consult: weakness, frequent falls, from OT [Consult to Occupational Therapy] [CONS] Routine Comment: Evaluate, develop and implement POC Reason for Consult: Weakness, from Discharging clinician: Foreign Solano Anticipated date of discharge: 11/13/16 - Patient Status Disposition: Home, Self-Care Condition: Good Functional capacity at discharge: uses cane/walker Overall status at discharge: patient is progressing back to baseline - Discharge Instructions Follow Up With: [facility] [Primary Care Provider] - 11/20/16 10:00 am Albert Baron, BUSINESS DEVELOPMENT ENGINEER [Partnered Physician] - Additional Instructions: 1. Follow-up with your primary care provider in the next 3-5 days 2. Take all prescriptions as prescribed, any concerns or questions contact her primary care provider. 3. Return to the emergency department if: - Diet and Activity Activity: increase activity as tolerated Diet: diabetic diet, low salt diet Hospital course: Mr. Ramirez is a 66 year old male - Time Spent with Patient Total time spent providing and/or coordinating discharge services: - Constitutional Vitals: Temp Pulse Resp BP Pulse Ox 97.5 F L 71 13 145/77 95 11/13/16 07:28 11/13/16 07:28 11/13/16 07:28 11/13/16 07:28 11/13/16 07:28 Exam: General: Patient alert, awake, oriented 3, interactive, in no acute distress HEENT: Normocephalic, atraumatic, pupils equal reactive to light, nasal cavity pain and open septum median position, oral mucosa moist, uvula midline, neck supple trachea midline no palpable lymphadenopathy, no thyromegaly. Chest: Symmetric bilateral correlating with respiratory effort, effort nonlabored. Cardiac: Regular rate and rhythm, positive S1, S2, no bruits appreciated bilateral carotids, Radial pulses 2+ bilateral, posterior tibial and dorsal pedal pulses 2+ bilateral. Respiratory: Clear to auscultation all lung mckeon Abdomen: Soft, nontender, positive bowel sounds, no palpable masses appreciated on examination Extremities: Symmetric bilateral, no erythema or edema, patient moving all 4 extremities spontaneously. Neurologic: No focal deficits appreciated on examination. Face symmetric, muscle strength symmetric bilateral upper and lower extremities.
[2016-11-13] MEDS ORDERED: Insulin Human Regular 7 UNIT in 0.9 % Sodium Chloride 10 ML IV STA (12:39)
[2016-11-13] MEDS: Insulin Human Regular 7 UNIT in 0.9 % Sodium Chloride 10 ML IV STA ×2 (12:58→13:12)
[2016-11-13] MEDS ORDERED: *HR* Dextrose 50 % in Water (Syg) 50 ML SYRINGE IVP PRN (14:36)
--- NOTE | 2016-11-13 14:44 | Internal Med Progress Note ---
<Foreign Solano - Last Filed: 11/13/16 14:42> Date of Encounter: 11/13/16 Time of Encounter: 10:00 - Assessment and plan (1) Severe sepsis Current Visit: Yes Status: Acute Assessment and plan: Patient admitted with lactic acidosis at 6.1, acute on chronic kidney disease, significant hypotension was originally admitted to the ICU after receiving 100 mg Cortef and multiple boluses of IV fluids. - Current blood pressure is stable, patient is back on normal home dose of Cortef. Antihypertensives are held. Possible cause of significant hypotension possibly due to adrenal insufficiency and missed hydrocortisone doses. Plan: - Continue with Cortef - Monitor blood pressure - Monitor for other signs of infection. (2) Hyponatremia Current Visit: No Status: Acute Assessment and plan: Hyponatremia likely secondary to adrenal insufficiency. Current sodium 131, potassium 4.7 and stable blood pressures. Plan: - Monitor sodium with daily labs. (3) DM2 (diabetes mellitus, type 2) Current Visit: Yes Status: Chronic Assessment and plan: Patient is an uncontrolled type II diabetic who does not follow a strict diet. His last hemoglobin A1c was 11.5 and was difficult to control with his prior hospitalization. His glucose is elevated to greater than 400 even after IV insulin push. At this time he will require continuous IV insulin to reduce his glucose. This is not treating DKA but to control his glucoses prior to restarting improved insulin coverage. Plan: - Increase Levemir to 125 units subcutaneous twice a day - Continue high-dose sliding scale insulin - Continue ACHS glucose checks. 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 - Currently stable - Ammonia 33 Plan: - Continue home dose lactulose - Monitor mental status. Qualifiers: Hepatic cirrhosis type: unspecified hepatic cirrhosis Ascites presence: without ascites Qualified Code(s): K74.60 - Unspecified cirrhosis of liver (5) CAD (coronary artery disease), [place] coronary artery Current Visit: No Status: Chronic Assessment and plan: No history of coronary artery disease: Continue aspirin 81 mg, atorvastatin 40 mg by mouth at bedtime. Holding antihypertensives and beta pranay at this time. Plan to restart when patient is stable. Qualifiers: [place] vs. transplanted heart: [place] heart Associated angina: angina presence unspecified Qualified Code(s): I25.10 - Atherosclerotic heart disease of [place] coronary artery without angina pectoris (6) Frequent falls Current Visit: Yes Status: Acute Assessment and plan: Patient suffered multiple falls in the setting of hypotension. The patient also complains of chronic weakness in his right lower extremity unchanged since prior to admission. Plan: - Continue to monitor patient mental status during inpatient stay - Physical therapy to evaluate - Patient needs to follow up with orthopedics as planned prior to admission. - Assisted device for walking. (7) Lactic acidosis Current Visit: Yes Status: Acute Assessment and plan: Lactic acidosis likely secondary to hypotension and poor perfusion resolved. (8) Hypotension Current Visit: Yes Status: Acute Assessment and plan: Hypotension suspected secondary to adrenal insufficiency. Patient received 100 mg Cortef in the emergency department and IV fluids. Patient is continued on home dose Cortef and blood pressures are stable. Plan: - To hold antihypertensives until blood pressures been stable for 24 hours. Qualifiers: Hypotension type: other hypotension type Qualified Code(s): I95.89 - Other hypotension (9) MJ (acute kidney injury) Current Visit: Yes Status: Acute Assessment and plan: Resolved. (10) Adrenal insufficiency Current Visit: No Status: Acute Assessment and plan: Patient has a history with recent diagnosis of adrenal insufficiency and has been taking Cortef at home. Suspect that he may have missed a couple doses as he came in hypotensive without findings of infection. - Blood pressure stable patient is slightly hyponatremic, potassium stable Plan: - Continue Cortef as scheduled. - Subjective Interval history: Mr. Ramirez 66M has been seen and evaluated patient bedside this morning. He is alert awake oriented no acute distress. He feels well and back to his normal self. He denies any lightheadedness, nausea, vomiting, syncopal episodes of dizziness or trouble thinking. He has been tolerating food per mouth, passing gas and having bowel movements. No new symptoms and no concerns. - Constitutional Vitals: Temp Pulse Resp BP Pulse Ox 97.5 F L 76 16 145/81 96 11/13/16 11:46 11/13/16 11:46 11/13/16 11:46 11/13/16 11:46 11/13/16 11:46 Exam: General: Patient alert, awake, oriented 3, interactive, in no acute distress HEENT: Normocephalic, atraumatic, pupils equal reactive to light, nasal cavity pain and open septum median position, oral mucosa moist, uvula midline, neck supple trachea midline no palpable lymphadenopathy, no thyromegaly. Chest: Symmetric bilateral correlating with respiratory effort, effort nonlabored. Cardiac: Regular rate and rhythm, positive S1, S2, no bruits appreciated bilateral carotids, Radial pulses 2+ bilateral, posterior tibial and dorsal pedal pulses 2+ bilateral. Respiratory: Clear to auscultation all lung mckeon Abdomen: Soft, nontender, positive bowel sounds, no palpable masses appreciated on examination Extremities: Symmetric bilateral, no erythema or edema, patient moving all 4 extremities spontaneously. Neurologic: No focal deficits appreciated on examination. Face symmetric, muscle strength symmetric bilateral upper and lower extremities. Internal Medicine: Result - Labs CBC & Chem 7: 11/13/16 05:16 11/13/16 05:16 Labs: Short CBC 11/13/16 Range/Units 05:16 WBC 4.1 L (4.3-11.1) K/mcL Hgb 10.9 L (12.9-16.9) g/dL Hct 31.4 L (37.5-50.1) % Plt Count 53 L (140-400) K/mcL Neutrophils # 3.3 (1.6-8.9) K/mcL BMP 11/13/16 05:16 Sodium 130 L Potassium 4.3 Chloride 98 Carbon Dioxide 20 BUN 33 H D Creatinine 1.24 Glucose 310 H Calcium 8.7 Liver Function 11/13/16 Range/Units 05:16 Total Bilirubin 1.0 (0.2-1.2) mg/dL AST 28 (5-34) Units/L ALT 34 (0-55) Units/L Alkaline Phosphatase 137 H (38-126) Units/L Albumin 3.2 L (3.5-5.0) g/dL Consult Discharge Plan - Plan Additional Instructions: 1. Follow-up with your primary care provider in the next 3-5 days 2. Take all prescriptions as prescribed, any concerns or questions contact her primary care provider. 3. Return to the emergency department if: Referrals: Albert Baron CNP [Partnered Physician] - [facility]Primary Care Provider[facility] - 11/20/16 10:00 am Prescriptions: Hydrocortisone [Cortef] 10 mg PO DAILY #30 tablet <Wiley Painter - Last Filed: 11/13/16 15:48> Date of Encounter: 11/13/16 - Constitutional Vitals: Temp Pulse Resp BP Pulse Ox 97.9 F 62 16 149/81 96 11/13/16 14:58 11/13/16 14:58 11/13/16 14:58 11/13/16 14:58 11/13/16 14:58 Internal Medicine: Result - Labs CBC & Chem 7: 11/13/16 05:16 11/13/16 05:16 Labs: Short CBC 11/13/16 Range/Units 05:16 WBC 4.1 L (4.3-11.1) K/mcL Hgb 10.9 L (12.9-16.9) g/dL Hct 31.4 L (37.5-50.1) % Plt Count 53 L (140-400) K/mcL Neutrophils # 3.3 (1.6-8.9) K/mcL BMP 11/13/16 05:16 Sodium 130 L Potassium 4.3 Chloride 98 Carbon Dioxide 20 BUN 33 H D Creatinine 1.24 Glucose 310 H Calcium 8.7 Liver Function 11/13/16 Range/Units 05:16 Total Bilirubin 1.0 (0.2-1.2) mg/dL AST 28 (5-34) Units/L ALT 34 (0-55) Units/L Alkaline Phosphatase 137 H (38-126) Units/L Albumin 3.2 L (3.5-5.0) g/dL - Attending Attestation I examined this patient and my medical decision-making was reviewed with the BEHAVIORAL SCHOOL COUNSELORS/PA/Advanced Practice Nurse/Resident Physician. I agree with the documented findings, disposition and treatment plan as described except to the extent set forth below. uncontrolled DM, will start insulin drip and monitor fingersticks according to protocol. Agree with Dr. Solano.
[2016-11-13] MEDS ORDERED: Insulin Human Regular 100 UNIT in 0.9 % Sodium Chloride 100 ML IVC SCH (14:45)
[2016-11-13] MEDS: RisperiDAL 3 MG TABLET PO SCH (20:13)
[2016-11-13] MEDS ORDERED: Insulin DETEMIR 100 UNIT/ML X5UNITS SQ SCH (21:00)
[2016-11-14 04:02] LABS: Red Cell Distribution Width 14.8 % (11.5-14.5)
[2016-11-14 04:03] LABS: Basophils % 0.3 %; Hematocrit 31.8 % (37.5-50.1); Hemoglobin 11.1 g/dL (12.9-16.9); Immature Granulocytes % 0.3 % (0-4); Immature Platelets 6.7 % (1.1-6.1); Lymphocytes # 0.6 K/mcL (0.6-4.6); Lymphocytes % 17.3 %; Mean Corpuscular HGB Conc 34.9 g/dL (31.6-35.5); Monocytes # 0.3 K/mcL (0.0-1.3); Monocytes % 7.2 %; Neutrophils # 2.7 K/mcL (1.6-8.9); Red Blood Count 3.83 M/mcL (4.19-5.50); Segmented Neutrophils % 74.9 %
[2016-11-14 04:05] LABS: Platelet Count 61 K/mcL (140-400)
[2016-11-14 04:16] LABS: BUN/Creatinine Ratio 23 (6-26); Blood Urea Nitrogen 25 mg/dL (8-26); Calcium 8.4 mg/dL (8.6-10.8); Carbon Dioxide 24 mEq/L (19-29); Chloride 103 mEq/L (98-109); Glucose 255 mg/dL (70-99); Osmolality,Calculated 291 (280-300); Potassium 4.4 mEq/L (3.5-4.5); Sodium 134 mEq/L (136-145); eGFR For African Americans > 60 (> 60); eGFR For Non-African Americans > 60 (> 60)
[2016-11-14 04:17] LABS: Alanine Aminotransferase 34 Units/L (0-55); Albumin 3.1 g/dL (3.5-5.0); Albumin/Globulin Ratio 0.8 (1.1-2.2); Alkaline Phosphatase 126 Units/L (38-126); Aspartate Amino Transferase 28 Units/L (5-34); BUN/Creatinine Ratio 23 (6-26); Bilirubin,Total 0.5 mg/dL (0.2-1.2); Blood Urea Nitrogen 26 mg/dL (8-26); Calcium 8.4 mg/dL (8.6-10.8); Carbon Dioxide 24 mEq/L (19-29); Chloride 102 mEq/L (98-109); Globulin 3.9 g/dL (2.4-3.5); Glucose 256 mg/dL (70-99); Osmolality,Calculated 290 (280-300); Potassium 4.4 mEq/L (3.5-4.5); Sodium 133 mEq/L (136-145); eGFR For African Americans > 60 (> 60); eGFR For Non-African Americans > 60 (> 60)
[2016-11-14] MEDS: Hydrocortisone 10 MG TABLET PO SCH (06:31)
[2016-11-14] MEDS: *HR* HYDROcodone/Acet 5/325 mg TABLET PO PRN ×2 (06:34→10:52)
[2016-11-14 07:07] VITALS: BP 150/81
[2016-11-14] MEDS ORDERED: Insulin DETEMIR 100 UNIT/ML X5UNITS SQ SCH (09:00)
[2016-11-14] MEDS: Insulin LISPRO 300 UNITS/3 ML VIAL SQ SCH (09:08)
[2016-11-14] MEDS: Cholecalciferol (D-3) 1,000 UNIT TABLET PO SCH (09:09)
[2016-11-14] MEDS: Aspirin Enteric Coated 81 MG Tablet PO SCH (09:09)
[2016-11-14] MEDS: Venlafaxine XR (24 HR) 75 MG CAP.ER.24H PO SCH (09:09)
[2016-11-14] MEDS: *HR* Rivaroxaban 10 MG TABLET PO SCH (09:10)
[2016-11-14] MEDS: Lactulose Oral Soln 20 GM/30 ML UDC PO SCH (09:10)
[2016-11-14] MEDS: Pantoprazole 40 MG VIAL IVPB SCH (09:10)
--- NOTE | 2016-11-14 10:23 | Discharge Summary ---
Date of Encounter: 11/14/16 Time of Encounter: 10:21 - Discharge Diagnosis (1) Severe sepsis Priority: Secondary Status: Acute (2) MJ (acute kidney injury) Priority: Secondary Status: Acute (3) Hypotension Priority: Primary Status: Acute Qualifiers: Hypotension type: other hypotension type Qualified Code(s): I95.89 - Other hypotension (4) Hyperglycemia Priority: Secondary Status: Acute (5) Adrenal insufficiency Priority: Secondary Status: Acute (6) DVT prophylaxis Priority: Secondary Status: Acute - Discharge Medications Prescriptions: Hydrocortisone [Cortef] 10 mg PO DAILY #30 tablet Home Medications: Cholecalciferol (Vitamin D3) [Vitamin D] 2,000 unit PO DAILY 05/13/15 [History] Insulin ASPART [NovoLOG] 48 - 100 unit SQ TIDWM 05/13/15 [History] Aspirin Enteric Coated [Aspirin EC] 81 mg PO DAILY 11/13/15 [History] Atorvastatin [Lipitor] 40 mg PO HS 11/13/15 [History] Insulin Glargine,Hum.rec.anlog [Lantus Solostar] 160 unit SQ BID 11/13/15 [ History] Lactulose 15 gm PO BID 11/13/15 [History] Omeprazole [PriLOSEC] 20 mg PO DAILY 11/13/15 [History] Tamsulosin [Flomax] 0.4 mg PO DAILY 11/13/15 [History] Furosemide [Lasix] 40 mg PO DAILY 05/16/16 [History] Rivaroxaban [Xarelto] 10 mg PO DAILY 05/16/16 [History] risperiDONE [Risperdal] 3 mg PO HS 05/16/16 [History] Atenolol [Tenormin] 50 mg PO DAILY 05/29/16 [History] Ipratropium/Albuterol Neb [Duoneb] 3 ml IH QID 08/10/16 [History] Lisinopril [Zestril] 2.5 mg PO HS #0 09/14/16 [Rx] DiphenhydraMINE [Benadryl] 50 mg PO HS 10/27/16 [History] Sertraline [Zoloft] 50 mg PO DAILY 10/27/16 [History] Spironolactone [Aldactone] 50 mg PO DAILY 10/27/16 [History] Venlafaxine HCl [Effexor Xr] 75 mg PO DAILY 11/11/16 [History] HYDROcodone/Acet 5/325 mg [[place] 5-325 mg] 1 tab PO Q4H PRN 11/12/16 [History] Hydrocortisone [Cortef] 10 mg PO DAILY #30 tablet 11/13/16 [Rx] Allergies/Adverse Reactions: Allergies Iodinated Contrast- Oral and IV Dye Allergy (Verified 11/11/16 08:37) Difficulty Breathing ketorolac [From Toradol] Allergy (Verified 11/11/16 08:37) Nausea Penicillins Allergy (Verified 11/11/16 08:37) Rash butorphanol [From Stadol] Adverse Reaction (Verified 11/11/16 08:37) Nausea celecoxib Adverse Reaction (Verified 11/11/16 08:37) unknown listed on [facility] rec gabapentin Adverse Reaction (Verified 11/11/16 08:37) unknown [facility] list. mirtazapine Adverse Reaction (Verified 11/11/16 08:37) unknown listed on [facility] rec tramadol Adverse Reaction (Verified 11/11/16 08:37) unknown listed on [facility] rec vancomycin Adverse Reaction (Verified 11/11/16 08:37) unknown listed on [facility] rec Date of admission: 11/11/16 07:48 Primary care physician: PCP [facility] Consults: 11/12/16 10:46 Consult to Physical Therapy [CONS] Routine Comment: Evaluate, develop and implement POC Reason for Consult: weakness, frequent falls, from OT [Consult to Occupational Therapy] [CONS] Routine Comment: Evaluate, develop and implement POC Reason for Consult: Weakness, from Discharging clinician: Wiley Painter Anticipated date of discharge: 11/14/16 - Patient Status Disposition: Home, Self-Care Condition: Good - Discharge Instructions Follow Up With: Albert Baron, A AND P MECHANIC [Partnered Physician] - [facility],PCP [Primary Care Provider] - 11/20/16 10:00 am Additional Instructions: 1. Follow-up with your primary care provider in the next 3-5 days 2. Take all prescriptions as prescribed, any concerns or questions contact her primary care provider. 3. Return to the emergency department if: - Diet and Activity Activity: increase activity as tolerated Diet: diabetic diet, other Interval History: As per HPI on admission: Mr. Ramirez is a 66 year old male with PMH non-alcoholic fatty liver disease, diabetes, adrenal insufficiency, history of PE and CAD who presented to the emergency department after multiple falls yesterday evening and altered mental status. The patient has chronic weakness of the lower extremities and has had multiple admissions over the past several months for similar symptoms. The patient states that yesterday morning around 0730 he was up trying to get to the bathroom and was not using his walker when he states that his right leg gave out and caused him to fall to his knees. He fell a second time around 0900 , at which time he states that he felt a similar weakness in his legs and fell to his right landing on his hip. He states that he fell again a few hours later. He denies LOC or injury to his head with each fall. He is taking the Route toe for a history of. He does report that he experienced lightheadedness and shortness of breath prior to these falls as well, however he now denies any dizziness, shortness of breath, chest pain. He does complain of abdominal tenderness, but cannot locate a specific portion of his abdomen that hurts. He denies fever, chills, headache, neck pain, nausea, vomiting, diarrhea. He does state that she has had constipation. He states he last had a bowel movement yesterday morning and that it was "hard". He denies melena or bloody stool. He denies any recent illness. Hospital course: Mr. Ramirez is a 66 year old male admitted with hypotension, initially with criteria for severe sepsis. However no source of infection was identified. He initially was admitted to the intensive care unit, his blood pressure improved after IV fluids and treatment with steroids. Of note, the patient has a history of adrenal insufficiency on chronic steroid therapy, however the patient had not been taking his steroids at home. He also presented with hyperglycemia, he at some point during this admission had to be a started on insulin drip for better control of his glucose levels. The patient is currently mowing the medical is stable, his glucose control has improved. He will be discharged home today, he will continue with insulin therapy, anticoagulation, and steroid therapy at home. The plan of care was explained in detail to the patient. He will follow-up with his primary care physician for further management as outpatient. He had a central line placed in the right internal jugular vein which was removed 2 days ago. - Time Spent with Patient Total time spent providing and/or coordinating discharge services: - Constitutional Vitals: Temp Pulse Resp BP Pulse Ox 97.7 F 60 16 150/81 95 11/14/16 07:06 11/14/16 07:06 11/14/16 07:06 11/14/16 07:06 11/14/16 07:06 General appearance: Present: pleasant, obese - Head Head exam: Present: atraumatic, normocephalic - Eye Eye exam: Present: PERRL, conjuntiva pink, sclera anicteric Pupils: Present: PERRL - Neck Neck exam general surgery: Present: supple, trachea midline. Absent: lymphadenopathy - Respiratory Respiratory exam: Present: CTAB. Absent: accessory muscle use, rales, rhonchi, wheezes - Cardiovascular Cardiovascular exam: Present: RRR, +S1, +S2. Absent: diastolic murmur, gallop, rubs, systolic murmur - GI/Abdominal GI/Abdominal exam: Present: normal bowel sounds, soft, no peritoneal signs. Absent: distended, tenderness - Extremities Exam Extremities exam: Present: warm, radial pulses palpable and symetrical. Absent : calf tenderness, cyanotic, pedal edema - Neurological Exam Neurological exam: Present: CN II-XII intact, oriented X3, no focal deficits. Absent: pronater drift, facial droop, speech deficit - Skin Skin exam: Present: dry, intact
== END 2016-11-14 11:45 | disposition home or self-care (01) | DRG 872 ==
LOC: EMEROO 03:40 → ICNU 07:48 → 2NNU 15:34 → 3ANU 11-12 16:06
PROVIDERS: ADMIT Internal Medicine Hospice and Palliative Medicine; ATTEND Internal Medicine Hospice and Palliative Medicine

== ENCOUNTER 2017-01-25 22:14 | Observation (INO) ==
[2017-01-25] MEDS ORDERED: 0.9 % Sodium Chloride 1,000 ML IVC ONE (22:40)
[2017-01-25] MEDS ORDERED: Ondansetron 4 MG/2 ML VIAL IVP ONE (22:40)
[2017-01-25 22:58] LABS: Bilirubin,Urine Negative (Negative); Blood,Urine Negative (Negative); Clarity,Urine Clear (Clear); Color,Urine Yellow (Yellow); Glucose,Urine (UA) >=1000 mg/dL (Normal); Ketones,Urine Negative (Negative); Leukocyte Esterase,Urine Negative (Negative); Nitrite,Urine Negative (Negative); PH,Urine 6.5 pH Units (5.0-8.0); Protein,Urine Negative (Neg-Trace); Specific Gravity,Urine 1.028 (1.010-1.025); Urobilinogen,Urine Normal (Normal)
[2017-01-25] MEDS ORDERED: *HR* Morphine 2 MG/ML SYRINGE IVP ONE (22:58)
--- NOTE | 2017-01-25 22:58 | Emergency Department Note ---
Disposition Clinical Impression: Nausea vomiting and diarrhea, Elevated lactic acid level, Hyperglycemia due to type 1 diabetes mellitus Disposition: Admitted As Inpatient Condition: Fair [facility]: [facility]Primary Care Provider[facility] - Forms: ED Satisfaction Letter Nausea/Vomiting/Diarrhea HPI - General Chief complaint: ED Nausea/Vomiting/Diarrhea Stated complaint: n/v x5 hours Time Seen by Provider: 01/25/17 22:26 Source: patient Mode of arrival: private vehicle Limitations: no limitations Nursing Notes Reviewed: Yes Vital Signs Reviewed: Yes - History of Present Illness Pt Subjective Complaint: nausea, vomiting, abdominal pain Onset (ago): hour(s) Description of emesis: food contents, watery Number of episodes of emesis: 10 Description of Diarrhea: water Number of episodes: 4 Associated Abdominal Pain: Yes If pain, Location of pain: RUQ Radiation: diffuse Severity: moderate Quality: stabbing, sharp Consistency: constant Improves with: nothing Worsens with: vomiting Context: other (Hx of similar about a month ago and Hx of Cirrhosis.) Associated symptoms: Reports: loss of appetite, malaise, nausea/vomiting. Denies: myalgias, chest pain, cough, diaphoresis, fever/chills, headaches, rash , dysuria, shortness of breath, syncope, weakness, other - Related Data Home Medications Medication Instructions Recorded Confirmed Cholecalciferol (Vitamin D3) 2,000 unit PO DAILY 05/13/15 11/11/16 [Vitamin D] Insulin ASPART [NovoLOG] 48 - 100 unit SQ TIDWM 05/13/15 11/11/16 Aspirin Enteric Coated [Aspirin EC] 81 mg PO DAILY 11/13/15 11/11/16 Atorvastatin [Lipitor] 40 mg PO HS 11/13/15 11/11/16 Insulin Glargine,Hum.rec.anlog 160 unit SQ BID 11/13/15 11/11/16 [Lantus Solostar] Lactulose 15 gm PO BID 11/13/15 11/11/16 Omeprazole [PriLOSEC] 20 mg PO DAILY 11/13/15 11/11/16 Tamsulosin [Flomax] 0.4 mg PO DAILY 11/13/15 11/11/16 Furosemide [Lasix] 40 mg PO DAILY 05/16/16 11/11/16 Rivaroxaban [Xarelto] 10 mg PO DAILY 05/16/16 11/11/16 risperiDONE [Risperdal] 3 mg PO HS 05/16/16 11/11/16 Atenolol [Tenormin] 50 mg PO DAILY 05/29/16 11/11/16 Ipratropium/Albuterol Neb [Duoneb] 3 ml IH QID 08/10/16 11/11/16 DiphenhydraMINE [Benadryl] 50 mg PO HS 10/27/16 11/11/16 Sertraline [Zoloft] 50 mg PO DAILY 10/27/16 11/11/16 Spironolactone [Aldactone] 50 mg PO DAILY 10/27/16 11/11/16 Venlafaxine HCl [Effexor Xr] 75 mg PO DAILY 11/11/16 11/11/16 HYDROcodone/Acet 5/325 mg [[place] 1 tab PO Q4H PRN 11/12/16 11/12/16 5-325 mg] Previous Rx's Medication Instructions Recorded Lisinopril [Zestril] 2.5 mg PO HS #0 09/14/16 Hydrocortisone [Cortef] 10 mg PO DAILY #30 tablet 11/13/16 Allergies Allergy/AdvReac Type Severity Reaction Status Date / Time Iodinated Contrast- Oral and Allergy Difficulty Verified 11/11/16 08:37 IV Dye Breathing ketorolac [From Toradol] Allergy Nausea Verified 11/11/16 08:37 Penicillins Allergy Rash Verified 11/11/16 08:37 butorphanol [From Stadol] AdvReac Nausea Verified 11/11/16 08:37 celecoxib AdvReac unknown Verified 11/11/16 08:37 gabapentin AdvReac unknown Verified 11/11/16 08:37 mirtazapine AdvReac unknown Verified 11/11/16 08:37 tramadol AdvReac unknown Verified 11/11/16 08:37 vancomycin AdvReac unknown Verified 11/11/16 08:37 All systems ED: reviewed and negative except as stated. Review of Systems: As Per HPI Constitutional: Denies: fever, chills, weakness Cardiovascular: Denies: chest pain, palpitations, dyspnea on exertion, orthopnea , edema, syncope Respiratory: Denies: cough, dyspnea, wheezes Gastrointestinal: Reports: as per HPI, abdominal pain, nausea, vomiting, diarrhea, other (distention). Denies: constipation, hematemesis, melena, hematochezia Genitourinary: Denies: dysuria, hematuria Musculoskeletal: Denies: back pain, neck pain, joint swelling Integumentary: Denies: rash, pruritus Neurological: Denies: headache, weakness, confusion, vertigo Hematological/Lymphatic: Denies: easy bleeding, easy bruising Past Medical History - Past Medical History Attestation: Yes The following information was validated with the patient. Source: patient Medical history: Reports: arthritis, cirrhosis, CHF, COPD, coronary artery disease, diabetes, GERD, hyperlipidemia, hypertension, liver disease, osteoporosis, TIA Surgical history: Reports: appendectomy, cholecystectomy, herniorrhaphy, knee replacement, other Psychiatric history: Reports: anxiety, depression, panic disorder, PTSD, previous psychiatric hospitalization - Social History Smoking Status: Never smoker Smokeless Tobacco Status: No Alcohol use: Reports: none Drug use: Reports: none Physical Exam - General Limitations: no limitations General appearance: alert, in no apparent distress - Head Head exam: atraumatic, normocephalic, normal inspection - Eye Eye exam: Present: normal appearance, PERRL. Absent: scleral icterus, conjunctival injection, periorbital swelling - ENT ENT exam: mucous membranes dry - Neck Neck exam: Present: normal inspection, full ROM, trachea midline. Absent: tenderness, meningismus - Chest Chest inspection: Present: normal inspection - Respiratory Respiratory exam: Present: normal lung sounds bilaterally. Absent: respiratory distress, wheezes - Cardiovascular Cardiovascular exam: Present: regular rate, normal rhythm, normal heart sounds - Abdominal Exam Abdominal exam: Present: soft, tenderness, distention, diminished bowel sounds, ascites. Absent: guarding, rebound, rigidity, Trivedi's sign, mass, pulsatile mass Abdominal tenderness: Present: RUQ, moderate - Extremities Exam Extremities exam: Present: normal inspection, full ROM, pedal edema - Expanded Lower Extremity Exam Gait: not tested/not observed - Neurological Exam Neurological exam: Present: alert, oriented X3, CN II-XII intact - Psychiatric Psychiatric exam: Present: normal affect, normal mood - Skin Skin exam: Present: warm, dry, intact, normal color Course Course Narrative: Patient presents from home for evaluation of NVD and RUQ abd pain x 1 day. He states that he has not been able to keep anything down and his sugar has been out of control for several days. Pain began after the vomiting. Diarrhea has been mild compared to the vomiting. He denies new foods or meds. He has generalized weakness as well. On exam he is tender in the RUQ. Will check labs, give fluids, meds and scan the andomen / pelvis. - Reevaluation(s) Reevaluation #1: Abd pain still present. Additional meds ordered. Pulse improved. Patient has not received the insulin yet. Time: 00:25 Reevaluation #2: Repeat accu check after 10 units IV insulin is 329. Lactic acid elevated as well. CT shows no acute abnormality. Patient continues to have nausea and diarrhea. No additional vomiting that I have seen. Review of the vitals was confusion initially, as the patient was afebrile, then had a fever, tachycardia and tachypnea. After review of the nursing notes, It appears that these abnormal vitals were entered in error. They should have been entered on a different patient, but were accidentally entered on this patient. Thus, this patient has not had a documented fever, tachypnea or a heart rate above 111 while in the ER. Unfortunately, he does have ascites, abd pain, hx of cirrhosis , pancytopenia, hyperglycemia and continued volume loss. Will contat hospitalist for admission. Case discussed with Dr. Bruner. He has seen the patient and agrees with the assessment and plan. He also recommends obtaining a CXR. CXR is negative. Time: 02:07 Vital Signs Temperature 98.1 F 01/25/17 22:15 Pulse Rate 111 01/25/17 22:15 Respiratory Rate 16 01/25/17 22:15 Blood Pressure 153/77 01/25/17 22:15 O2 Sat by Pulse Oximetry 98 01/25/17 22:15 Temperature 98.6 F 01/25/17 23:16 Pulse Rate 88 01/26/17 02:20 Respiratory Rate 16 01/26/17 02:20 Blood Pressure 154/80 01/26/17 02:20 O2 Sat by Pulse Oximetry 96 01/26/17 02:20 Oxygen Delivery Oxygen Delivery Room Air Nausea/Vomiting/Diarrhea - Medical Records Medical records reviewed: Yes I reviewed the patient's medical records. - Lab Data Lab results reviewed: Yes I reviewed the patient's lab results. Lab results narrative: Laboratory Last Values WBC 3.7 K/mcL (4.3-11.1) L 01/25/17 23:07 RBC 3.52 M/mcL (4.19-5.50) L 01/25/17 23:07 Hgb 10.4 g/dL (12.9-16.9) L 01/25/17 23:07 Hct 30.7 % (37.5-50.1) L 01/25/17 23:07 MCV 87.2 fL (83.0-100.0) 01/25/17 23:07 MCH 29.5 pg (28.0-33.3) 01/25/17 23:07 MCHC 33.9 g/dL (31.6-35.5) 01/25/17 23:07 RDW 14.7 % (11.5-14.5) H 01/25/17 23:07 Plt Count 65 K/mcL (140-400) L 01/25/17 23:07 MPV 10.7 fL (9.4-12.4) 01/25/17 23:07 Immature Gran % 0.3 % (0-4) 01/25/17 23:07 Seg Neutrophils % 59.2 % 01/25/17 23:07 Lymphocytes % 24.8 % 01/25/17 23:07 Monocytes % 11.9 % 01/25/17 23:07 Eosinophils % 3.0 % 01/25/17 23:07 Basophils % 0.8 % 01/25/17 23:07 Neutrophils # 2.2 K/mcL (1.6-8.9) 01/25/17 23:07 Lymphocytes # 0.9 K/mcL (0.6-4.6) 01/25/17 23:07 Monocytes # 0.4 K/mcL (0.0-1.3) 01/25/17 23:07 Eosinophils # 0.1 K/mcL (0.0-0.6) 01/25/17 23:07 Basophils # 0.0 K/mcL (0.0-0.2) 01/25/17 23:07 Immature Plt Fraction 4.6 % (1.1-6.1) 01/25/17 23:07 Sodium 132 mEq/L (136-145) L 01/25/17 23:07 Potassium 4.6 mEq/L (3.5-4.5) H 01/25/17 23:07 Chloride 101 mEq/L (98-109) 01/25/17 23:07 Carbon Dioxide 21 mEq/L (19-29) 01/25/17 23:07 BUN 31 mg/dL (8-26) H 01/25/17 23:07 Creatinine 1.49 mg/dL (0.72-1.25) H 01/25/17 23:07 Est GFR ( Amer) 57 (> 60) L 01/25/17 23:07 Est GFR (Non-Af Amer) 47 (> 60) L 01/25/17 23:07 BUN/Creatinine Ratio 21 (6-26) 01/25/17 23:07 Glucose 399 mg/dL (70-99) H 01/25/17 23:07 Calculated Osmolality 297 (280-300) 01/25/17 23:07 Calcium 9.8 mg/dL (8.6-10.8) 01/25/17 23:07 Total Bilirubin 0.5 mg/dL (0.2-1.2) 01/25/17 23:07 AST 39 Units/L (5-34) H 01/25/17 23:07 ALT 36 Units/L (0-55) 01/25/17 23:07 Alkaline Phosphatase 120 Units/L (38-126) 01/25/17 23:07 Serum Total Protein 7.4 g/dL (6.0-8.3) 01/25/17 23:07 Albumin 3.2 g/dL (3.5-5.0) L 01/25/17 23:07 Globulin 4.2 g/dL (2.4-3.5) H 01/25/17 23:07 Albumin/Globulin Ratio 0.8 (1.1-2.2) L 01/25/17 23:07 Urine Color Yellow (Yellow) 01/25/17 22:30 Urine Clarity Clear (Clear) 01/25/17 22:30 Urine pH 6.5 pH Units (5.0-8.0) 01/25/17 22:30 Ur Specific [place] 1.028 (1.010-1.025) H 01/25/17 22:30 Urine Protein Negative mg/dL (Neg-Trace) 01/25/17 22:30 Urine Glucose (UA) >=1000 mg/dL (Normal) H 01/25/17 22:30 Urine Ketones Negative mg/dL (Negative) 01/25/17 22:30 Urine Blood Negative (Negative) 01/25/17 22:30 Urine Nitrite Negative (Negative) 01/25/17 22:30 Urine Bilirubin Negative (Negative) 01/25/17 22:30 Urine Urobilinogen Normal mg/dL (Normal) 01/25/17 22:30 Ur Leukocyte Esterase Negative (Negative) 01/25/17 22:30 Ur Culture Indicated? NO (NO) 01/25/17 22:30 Result diagrams: 01/25/17 23:07 01/25/17 23:07 Lab Results 01/25/17 01/25/17 01/25/17 Range/Units 22:30 23:07 23:07 WBC 3.7 L (4.3-11.1) K/mcL RBC 3.52 L (4.19-5.50) M/mcL Hgb 10.4 L (12.9-16.9) g/dL Hct 30.7 L (37.5-50.1) % MCV 87.2 (83.0-100.0) fL MCH 29.5 (28.0-33.3) pg MCHC 33.9 (31.6-35.5) g/dL RDW 14.7 H (11.5-14.5) % Plt Count 65 L (140-400) K/mcL MPV 10.7 (9.4-12.4) fL Immature Gran % 0.3 (0-4) % Seg Neutrophils % 59.2 % Lymphocytes % 24.8 % Monocytes % 11.9 % Eosinophils % 3.0 % Basophils % 0.8 % Neutrophils # 2.2 (1.6-8.9) K/mcL Lymphocytes # 0.9 (0.6-4.6) K/mcL Monocytes # 0.4 (0.0-1.3) K/mcL Eosinophils # 0.1 (0.0-0.6) K/mcL Basophils # 0.0 (0.0-0.2) K/mcL Immature Plt Fraction 4.6 (1.1-6.1) % Sodium 132 L (136-145) mEq/L Potassium 4.6 H (3.5-4.5) mEq/L Chloride 101 (98-109) mEq/L Carbon Dioxide 21 (19-29) mEq/L BUN 31 H (8-26) mg/dL Creatinine 1.49 H (0.72-1.25) mg/dL Est GFR ( Amer) 57 L (> 60) Est GFR (Non-Af Amer) 47 L (> 60) BUN/Creatinine Ratio 21 (6-26) Glucose 399 H (70-99) mg/dL Calculated Osmolality 297 (280-300) Lactic Acid (0.5-2.2) mmol/L Calcium 9.8 (8.6-10.8) mg/dL Total Bilirubin 0.5 (0.2-1.2) mg/dL AST 39 H (5-34) Units/L ALT 36 (0-55) Units/L Alkaline Phosphatase 120 (38-126) Units/L Serum Total Protein 7.4 (6.0-8.3) g/dL Albumin 3.2 L (3.5-5.0) g/dL Globulin 4.2 H (2.4-3.5) g/dL Albumin/Globulin Ratio 0.8 L (1.1-2.2) Beta-Hydroxybutyric Acd (0.02-0.27) mmol/L Urine Color Yellow (Yellow) Urine Clarity Clear (Clear) Urine pH 6.5 (5.0-8.0) pH Units Ur Specific [place] 1.028 H (1.010-1.025) Urine Protein Negative (Neg-Trace) mg/dL Urine Glucose (UA) >=1000 H (Normal) mg/dL Urine Ketones Negative (Negative) mg/dL Urine Blood Negative (Negative) Urine Nitrite Negative (Negative) Urine Bilirubin Negative (Negative) Urine Urobilinogen Normal (Normal) mg/dL Ur Leukocyte Esterase Negative (Negative) Ur Culture Indicated? NO (NO) 01/26/17 01/26/17 Range/Units 00:26 00:26 WBC (4.3-11.1) K/mcL RBC (4.19-5.50) M/mcL Hgb (12.9-16.9) g/dL Hct (37.5-50.1) % MCV (83.0-100.0) fL MCH (28.0-33.3) pg MCHC (31.6-35.5) g/dL RDW (11.5-14.5) % Plt Count (140-400) K/mcL MPV (9.4-12.4) fL Immature Gran % (0-4) % Seg Neutrophils % % Lymphocytes % % Monocytes % % Eosinophils % % Basophils % % Neutrophils # (1.6-8.9) K/mcL Lymphocytes # (0.6-4.6) K/mcL Monocytes # (0.0-1.3) K/mcL Eosinophils # (0.0-0.6) K/mcL Basophils # (0.0-0.2) K/mcL Immature Plt Fraction (1.1-6.1) % Sodium (136-145) mEq/L Potassium (3.5-4.5) mEq/L Chloride (98-109) mEq/L Carbon Dioxide (19-29) mEq/L BUN (8-26) mg/dL Creatinine (0.72-1.25) mg/dL Est GFR ( Amer) (> 60) Est GFR (Non-Af Amer) (> 60) BUN/Creatinine Ratio (6-26) Glucose (70-99) mg/dL Calculated Osmolality (280-300) Lactic Acid 2.7 H (0.5-2.2) mmol/L Calcium (8.6-10.8) mg/dL Total Bilirubin (0.2-1.2) mg/dL AST (5-34) Units/L ALT (0-55) Units/L Alkaline Phosphatase (38-126) Units/L Serum Total Protein (6.0-8.3) g/dL Albumin (3.5-5.0) g/dL Globulin (2.4-3.5) g/dL Albumin/Globulin Ratio (1.1-2.2) Beta-Hydroxybutyric Acd 0.23 (0.02-0.27) mmol/L Urine Color (Yellow) Urine Clarity (Clear) Urine pH (5.0-8.0) pH Units Ur Specific [place] (1.010-1.025) Urine Protein (Neg-Trace) mg/dL Urine Glucose (UA) (Normal) mg/dL Urine Ketones (Negative) mg/dL Urine Blood (Negative) Urine Nitrite (Negative) Urine Bilirubin (Negative) Urine Urobilinogen (Normal) mg/dL Ur Leukocyte Esterase (Negative) Ur Culture Indicated? (NO) - Radiology Data Radiology results reviewed: Yes I reviewed the patient's radiology results. - EKG Data EKG attestation: Yes I reviewed and interpreted this EKG. EKG shows normal: sinus rhythm, axis, intervals, QRS complexes, ST-T waves Rate: normal Rhythm: NSR [place]/QRS: normal When compared to previous EKG there are: no significant changes Interpretation: no acute changes, unchanged when compared to prior tracing (date ) (11/11/16) Attestation Statement - Attestation Attestation: I, Kobi Bruner DO have provided [id number] time during the care of this patient. Detailed review the presentation, symptoms, medical history were discussed and reviewed with the mid-level provider Ania Marrero PA-C/[employer]. Medical intervention labs and imaging studies were reviewed in detail. See full documentation of physical exam and course of care in the mid-level provider 's note. I agree with the determined course of care, medical interventio,n and disposition put forth by the mid-level provider. See below documentation for changes or alterations in documentation. 66-year-old male presents emergency room with abdominal pain. Patient has history of liver cirrhosis with no ascites. Over the last several days she has had abdominal discomfort with fevers and chills. Workup here did show stable pancytopenia for which she has chronic issue. Patient did have an elevated lactic acid as well as increase in his kidney function. Patient is concerning for infection of unknown etiology potentially from his liver cirrhosis and fluid in his abdomen as well as respiratory related issues. Because of the abnormality including the acute kidney insufficiency as well as the fever and abdominal discomfort from home with elevated lactic acid patient will be admitted to the hospital for definitive evaluation and management. Otherwise patient is stable resting comfortably in the bed. See documentation of admission her request requirements from the mid-level provider. Otherwise patient is stable in no acute distress on my evaluation. Physical exam shows clear lungs with its regular abdomen is distended but no guarding no peritoneal like symptoms at this time. He moves all 4 extremities. Otherwise the patient is in no specific distress at this time. Disposition pending admission process
[2017-01-25 23:13] LABS: Hemoglobin 10.4 g/dL (12.9-16.9); Immature Granulocytes % 0.3 % (0-4); Monocytes % 11.9 %
[2017-01-25 23:15] LABS: Basophils % 0.8 %; Eosinophils # 0.1 K/mcL (0.0-0.6); Hematocrit 30.7 % (37.5-50.1); Immature Platelets 4.6 % (1.1-6.1); Lymphocytes # 0.9 K/mcL (0.6-4.6); Lymphocytes % 24.8 %; Mean Corpuscular HGB Conc 33.9 g/dL (31.6-35.5); Mean Corpuscular Hemoglobin 29.5 pg (28.0-33.3); Mean Corpuscular Volume 87.2 fL (83.0-100.0); Mean Platelet Volume 10.7 fL (9.4-12.4); Monocytes # 0.4 K/mcL (0.0-1.3); Neutrophils # 2.2 K/mcL (1.6-8.9); Red Blood Count 3.52 M/mcL (4.19-5.50); Red Cell Distribution Width 14.7 % (11.5-14.5); Segmented Neutrophils % 59.2 %
[2017-01-25 23:16] LABS: Platelet Count 65 K/mcL (140-400)
[2017-01-25 23:26] LABS: Albumin 3.2 g/dL (3.5-5.0); Albumin/Globulin Ratio 0.8 (1.1-2.2); Bilirubin,Total 0.5 mg/dL (0.2-1.2); Calcium 9.8 mg/dL (8.6-10.8); Globulin 4.2 g/dL (2.4-3.5); Potassium 4.6 mEq/L (3.5-4.5); Total Protein 7.4 g/dL (6.0-8.3)
[2017-01-25] MEDS ORDERED: Insulin Human Regular 10 UNIT in 0.9 % Sodium Chloride 10 ML IV ONE (23:46)
[2017-01-26] MEDS ORDERED: *HR* Morphine 2 MG/ML SYRINGE IVP ONE ×2 (00:27→01:43)
[2017-01-26 00:39] LABS: Beta-Hydroxybutyric Acid 0.23 mmol/L (0.02-0.27)
[2017-01-26] MEDS ORDERED: 0.9 % Sodium Chloride 1,000 ML IVC ONE ×2 (01:05→01:32)
[2017-01-26] MEDS ORDERED: Ondansetron 4 MG/2 ML VIAL IVP ONE (01:43)
[2017-01-26] MEDS ORDERED: Acetaminophen 325 MG TABLET PO PRN (05:12)
[2017-01-26] MEDS ORDERED: Ondansetron 4 MG/2 ML VIAL IVP PRN (05:12)
[2017-01-26] MEDS ORDERED: Naloxone 0.4 MG/ML INJ IVP PRN (05:12)
[2017-01-26] MEDS ORDERED: D5% in Water 1,000 ML IVC PRN (05:16)
[2017-01-26] MEDS ORDERED: *HR* Dextrose 50 % in Water (Syg) 50 ML SYRINGE IVP PRN (05:16)
[2017-01-26] MEDS ORDERED: Dextrose Gel 15 GM PO PRN ×2 (05:16)
--- NOTE | 2017-01-26 05:25 | Internal Med History&Physical ---
<Kandis Vaughn - Last Filed: 01/26/17 05:17> Date of Encounter: 01/26/17 Time of Encounter: 04:00 Assessment and Plan (1) Intractable nausea and vomiting Current visit: Yes Status: Acute - Nausea/vomiting/diarrhea not well-controlled by IV Zofran in ED. - Likely secondary to viral gastroenteritis. - Continue hydration with IV fluid. - Continue IV Zofran prn nausea. - NPO for now. Consider advance diet if patient's symptoms improves. - Admit to hospital for IV hydration and nausea/vomiting control. Total time spent on admission: 40 minutes. Qualifiers: Vomiting type: unspecified Qualified Code(s): R11.2 - Nausea with vomiting , unspecified (2) Gastroenteritis Current visit: Yes Status: Acute - Likely viral gastroenteritis. - No leukocytosis and no suspected wall thickening per CT A/P. (3) MJ (acute kidney injury) Current visit: No Status: Acute - SCr 1.49 in ED, which is worse compared to SCr 1.11 on 11/14/16. - Likely pre-renal secondary to current intractable nausea/vomiting/diarrhea likely from gastroenteritis. - Continue hydration with IV fluid. - Hold diuretics and avoid nephrotoxin. - Continue to monitor renal function and electrolytes. (4) Diabetes mellitus, insulin dependent (IDDM), uncontrolled Current visit: Yes Status: Chronic - Poorly controlled with Hgb A1C 11.5% on 10/27/16 - Check Hgb A1C. - Insulin sliding scale with routine AccuCheck. Qualifiers: Diabetes mellitus complication status: with unspecified complications Qualified Code(s): E10.8 - Type 1 diabetes mellitus with unspecified complications; E10.65 - Type 1 diabetes mellitus with hyperglycemia (5) HTN (hypertension) Current visit: No Status: Chronic - BP 150s/80s in ED. - Hold diuretic for current MJ. Will use hydralazine prn for blood pressure control at this time. Qualifiers: Hypertension type: essential hypertension Qualified Code(s): I10 - Essential (primary) hypertension (6) Cirrhosis of liver Current visit: No Status: Chronic - Non-alcoholic liver cirrhosis. - CT A/P found stable cirrhotic morphology of liver and spleen. - Hold Lasix and spironolactone at this time given current MJ. Qualifiers: Hepatic cirrhosis type: unspecified hepatic cirrhosis Ascites presence: without ascites Qualified Code(s): K74.60 - Unspecified cirrhosis of liver (7) CHF (congestive heart failure) Current visit: No Status: Chronic - Echo on 10/28/16 showed LVEF 60% with moderate diastolic dysfunction. - Hold diuretic at this time given current MJ. - Strict I/O. Qualifiers: Congestive heart failure type: diastolic Congestive heart failure chronicity: chronic Qualified Code(s): I50.32 - Chronic diastolic (congestive ) heart failure (8) History of adrenal insufficiency Current visit: Yes Status: Chronic - Patient was discharged home with hydrocortisone 10 mg PO daily on 10/09/16 for adrenal insufficiency. - Patient reports not taking any steroid at this time. - Will need further confirmation on home medication list. - Low suspicion of adrenal crisis at this time given patient' high blood pressure on admission. (9) DVT prophylaxis Current visit: No Status: Acute - History of PE currently on Xarelto. - Continue Xarelto. Internal Medicine - H&P: HPI Chief complaint: Nausea/vomiting/diarrhea Admitted From: Emergency Dept Plans for Post Hospital Care: Home History of present illness: Mr. Ramirez is a 66 year old male with PMH of IDDM, non-alcoholic liver cirrhosis , dCHF (LVEF 60% with moderate diastolic dysfunction per echo on 10/28/16), history of adrenal insufficiency, history of PE currently on Xarelto. Patient presented with complaint of nausea/vomiting/diarrhea starting 10 pm last night. Patient reports the vomitus is green-yellow color and stool is loosen with 3-4 bowel movements yesterday but no hematochezia or melena. It's associated with RLQ abdominal pain and fever. Patient also states having poor appetite for a week but weight gain of 8 lbs in 10 days. Patient denies dyspnea, cough, chest pain, dysuria, dysphagia. Patient denies recent travel or sick contact. Patient denies eating unusual or uoi-qfahb-nqdnjm food recently. Patient reports no recent change on medication and states he is not on any steroid at home. In ED, patient was noted to have SCr 1.49. CXR found no acute process. CT A/P found cirrhotic morphology of the liver & splenomegaly but no acute abnormality. Patient received IV ceftriaxone and 2L of IV NS. Patient's abdominal pain and nausea persisted despite of multiple doses of IV morphine & Zofran in ED. Past Med Surg Social Fam HX - Past Medical History Medical history: arthritis, cirrhosis, CHF, COPD, coronary artery disease, diabetes, GERD, hyperlipidemia, hypertension, liver disease, osteoporosis, TIA Psychiatric history: anxiety, depression, panic disorder, PTSD, previous psychiatric hospitalization - Past Surgical History Surgical History: appendectomy, cholecystectomy, herniorrhaphy, knee replacement , other - Social History Smoking Status: Never smoker Smokeless Tobacco Status: No Alcohol use: none Drug use: none - Family History Mother Adopted: No Living Status: Age at : 63 Cause of : Cancer Hx Family Cancer: Yes Father Living Status: Age at : 89 Cause of : natural Hx Family Cardiac Disorders: No Internal Medicine - H&P: Meds Cholecalciferol (Vitamin D3) [Vitamin D] 2,000 unit PO DAILY 05/13/15 [History] Insulin ASPART [NovoLOG] 48 - 100 unit SQ TIDWM 05/13/15 [History] Aspirin Enteric Coated [Aspirin EC] 81 mg PO DAILY 11/13/15 [History] Atorvastatin [Lipitor] 40 mg PO HS 11/13/15 [History] Insulin Glargine,Hum.rec.anlog [Lantus Solostar] 160 unit SQ BID 11/13/15 [ History] Lactulose 15 gm PO BID 11/13/15 [History] Omeprazole [PriLOSEC] 20 mg PO DAILY 11/13/15 [History] Tamsulosin [Flomax] 0.4 mg PO DAILY 11/13/15 [History] Furosemide [Lasix] 40 mg PO DAILY 05/16/16 [History] Rivaroxaban [Xarelto] 10 mg PO DAILY 05/16/16 [History] risperiDONE [Risperdal] 3 mg PO HS 05/16/16 [History] Atenolol [Tenormin] 50 mg PO DAILY 05/29/16 [History] Ipratropium/Albuterol Neb [Duoneb] 3 ml IH QID 08/10/16 [History] Lisinopril [Zestril] 2.5 mg PO HS #0 09/14/16 [Rx] DiphenhydraMINE [Benadryl] 50 mg PO HS PRN 10/27/16 [History] Sertraline [Zoloft] 100 mg PO DAILY 10/27/16 [History] Spironolactone [Aldactone] 50 mg PO DAILY 10/27/16 [History] Cyprohepatdine [Periactin] 4 mg PO HS 01/26/17 [History] Ibuprofen [Motrin] 600 mg PO Q8HR PRN 01/26/17 [History] Melatonin [Melatin] 9 mg PO HS 01/26/17 [History] Metformin HCl [Glucophage] 1,000 mg PO BID 01/26/17 [History] 3 Allergy/AdvReac Type Severity Reaction Status Date / Time Iodinated Contrast- Oral and Allergy Difficulty Verified 01/26/17 08:46 IV Dye Breathing ketorolac [From Toradol] Allergy Nausea Verified 01/26/17 08:46 Penicillins Allergy Rash Verified 01/26/17 08:46 butorphanol [From Stadol] AdvReac Nausea Verified 01/26/17 08:46 celecoxib AdvReac unknown Verified 01/26/17 08:46 gabapentin AdvReac unknown Verified 01/26/17 08:46 mirtazapine AdvReac unknown Verified 01/26/17 08:46 tramadol AdvReac unknown Verified 01/26/17 08:46 vancomycin AdvReac unknown Verified 01/26/17 08:46 All Systems PM: A 10-system review of systems was performed and is negative for pertinent findings except as documented above in the HPI. - Constitutional Constitutional: anorexia, fever(s), weight gain, no chills - EENT Eyes: no change in vision Ears: no decreased hearing Nose, mouth and throat: no dysphagia, no odynophagia - Cardiovascular Cardiovascular ROS IM: no chest pain, no edema, no syncope - Respiratory Respiratory: no cough, no dyspnea, no hemoptysis - Gastrointestinal Gastrointestinal: as per HPI, abdominal pain, diarrhea, nausea, vomiting, no hematochezia, no melena - Genitourinary Genitourinary ROS male: no difficulty urinating, no dysuria, no hematuria - Integumentary Integumentary IM: no pruritus, no rash - Neurological Neurological ROS: no focal weakness, no numbness, no tingling - Hematologic/Lymphatic Hematologic/Lymphatic: easy bleeding, no easy bruising - Constitutional Vitals: Temp Pulse Resp BP Pulse Ox 98 F 85 16 162/84 96 01/26/17 03:20 01/26/17 03:50 08/22/17 03:20 01/26/17 03:50 01/26/17 02:20 General appearance: Present: cooperative, A&O X 3, no acute distress, answers questions appropriately - Head Head exam: Present: atraumatic, normocephalic - Eye Eye exam: Present: EOMI, PERRL, conjuntiva pink, sclera anicteric - Neck Neck exam general surgery: Present: supple, trachea midline. Absent: lymphadenopathy - Respiratory Respiratory exam: Present: CTAB. Absent: accessory muscle use, rales, rhonchi, wheezes - Cardiovascular Cardiovascular exam: Present: RRR, +S1, +S2. Absent: diastolic murmur, gallop, rubs, systolic murmur - GI/Abdominal GI/Abdominal exam: Present: normal bowel sounds, soft, tenderness (RLQ > RUQ > LLQ). Absent: distended - Extremities Exam Extremities exam: Present: warm, radial pulses palpable and symmetrical. Absent : calf tenderness, cyanotic, pedal edema - Neurological Exam Neurological exam: Present: CN II-XII intact, oriented X3, no focal deficits. Absent: pronater drift, facial droop, speech deficit - Skin Skin exam: Present: dry, intact, warm Internal Med - H&P Results - Labs CBC & Chem 7: 01/25/17 23:07 01/25/17 23:07 Labs: Cardiac Enzymes 01/26/17 Range/Units Unknown Troponin I 0.03 (0-0.03) ng/mL <Demetrio Horne - Last Filed: 01/27/17 04:31> Date of Encounter: 01/26/17 Internal Medicine - H&P: HPI History of present illness: Mr. Ramirez is a 66 year old male All Systems PM: A 10-system review of systems was performed and is negative for pertinent findings except as documented above in the HPI. - Constitutional Vitals: Temp Pulse Resp BP Pulse Ox 98.2 F 96 18 160/82 95 01/27/17 04:21 01/27/17 04:21 01/27/17 04:21 01/27/17 04:21 01/27/17 04:21 Internal Med - H&P Results - Labs CBC & Chem 7: 01/26/17 06:23 01/26/17 06:23 Labs: Short CBC 08/22/17 Range/Units 06:23 WBC 3.3 L (4.3-11.1) K/mcL Hgb 9.9 L (12.9-16.9) g/dL Hct 29.8 L (37.5-50.1) % Plt Count 61 L (140-400) K/mcL BMP 01/26/17 06:23 Sodium 135 L Potassium 4.0 Chloride 105 Carbon Dioxide 24 BUN 24 Creatinine 1.13 Glucose 222 H Calcium 9.3 - Attending Attestation I examined this patient and my medical decision-making was reviewed with the Resident Physician, Dr. Kandis Vaughn. I agree with the documented findings, disposition and treatment plan as described except to the extent set forth below. I have independently obtained history and examined the patient and my findings are summarized below: Patient presented to the hospital with intractable nausea vomiting and diarrhea. He is being admitted for management of acute gastroenteritis. Plan: Supportive care with IV fluids, IV opiates for pain and Zofran for nausea.
[2017-01-26] MEDS: *HR* Morphine 2 MG/ML SYRINGE IVP PRN ×5 (05:41→22:41)
[2017-01-26] MEDS: *HR* Rivaroxaban 10 MG TABLET PO SCH (05:52)
[2017-01-26] MEDS ORDERED: Insulin LISPRO 300 UNITS/3 ML VIAL SQ SCH ×3 (06:00→21:00)
[2017-01-26] MEDS: 0.9 % Sodium Chloride 1,000 ML IVC SCH ×3 (06:22→21:00)
[2017-01-26 07:44] LABS: Hematocrit 29.8 % (37.5-50.1); Hemoglobin 9.9 g/dL (12.9-16.9); Immature Platelets 5.9 % (1.1-6.1); Mean Corpuscular HGB Conc 33.2 g/dL (31.6-35.5); Mean Corpuscular Hemoglobin 28.9 pg (28.0-33.3); Mean Corpuscular Volume 86.9 fL (83.0-100.0); Mean Platelet Volume 11.9 fL (9.4-12.4); Red Blood Count 3.43 M/mcL (4.19-5.50); Red Cell Distribution Width 14.8 % (11.5-14.5)
[2017-01-26 08:41] LABS: BUN/Creatinine Ratio 21 (6-26); Blood Urea Nitrogen 24 mg/dL (8-26); Calcium 9.3 mg/dL (8.6-10.8); Carbon Dioxide 24 mEq/L (19-29); Chloride 105 mEq/L (98-109); Glucose 222 mg/dL (70-99); Osmolality,Calculated 291 (280-300); Sodium 135 mEq/L (136-145); eGFR For African Americans > 60 (> 60); eGFR For Non-African Americans > 60 (> 60)
--- NOTE | 2017-01-26 09:23 | Event Note ---
<Boby Benavides - Last Filed: 01/26/17 09:17> Date of Encounter: 01/26/17 Time of Encounter: 08:55 Pt seen and examined by me at bedside. Patient reports N, V, D starting late last night. He reports he is feeling better this morning. He has not vomited or had diarrhea since admission. He reports his nausea is better. He denies new food exposure, recent abx use, travel outside the country, or recent camping. He states hsi abdominal pain is improved, but is still 7/10. Patient denies missing doses of his home emdications. He denies blood in his vomit or stool. On exam heart is RRR, no m/g/r; lungs are CTAB no w/r/r and abd is soft , obese , diffusely tender RLQ>RUQ>LLQ, normal bowel sounds. Continue current plan. <Piero Macias - Last Filed: 01/26/17 18:17> Date of Encounter: 01/26/17 I examined this patient and my medical decision-making was reviewed with the Resident Physician. I agree with the documented findings, disposition and treatment plan as described except to the extent set forth below.
[2017-01-26] MEDS: RisperiDAL 3 MG TABLET PO SCH (09:36)
[2017-01-26 10:46] LABS: Hemoglobin A1C 8.9 %
[2017-01-26] MEDS: Insulin LISPRO 300 UNITS/3 ML VIAL SQ SCH ×2 (12:05→16:28)
[2017-01-27] MEDS: *HR* Morphine 2 MG/ML SYRINGE IVP PRN ×2 (02:35→06:32)
[2017-01-27] MEDS: 0.9 % Sodium Chloride 1,000 ML IVC SCH ×2 (04:25→10:33)
[2017-01-27 05:43] LABS: Hematocrit 28.8 % (37.5-50.1); Hemoglobin 9.7 g/dL (12.9-16.9); Mean Corpuscular HGB Conc 33.7 g/dL (31.6-35.5); Mean Corpuscular Hemoglobin 29.4 pg (28.0-33.3); Mean Corpuscular Volume 87.3 fL (83.0-100.0); Red Blood Count 3.3 M/mcL (4.19-5.50)
[2017-01-27 05:45] LABS: Immature Platelets 5.1 % (1.1-6.1); Mean Platelet Volume 10.7 fL (9.4-12.4); Red Cell Distribution Width 14.8 % (11.5-14.5)
[2017-01-27 05:59] LABS: BUN/Creatinine Ratio 16 (6-26); Blood Urea Nitrogen 16 mg/dL (8-26); Calcium 8.9 mg/dL (8.6-10.8); Chloride 105 mEq/L (98-109); Glucose 342 mg/dL (70-99); Osmolality,Calculated 291 (280-300); Potassium 4.6 mEq/L (3.5-4.5); Sodium 133 mEq/L (136-145); eGFR For African Americans > 60 (> 60); eGFR For Non-African Americans > 60 (> 60)
[2017-01-27 06:25] LABS: Carbon Dioxide 22 mEq/L (19-29)
[2017-01-27] MEDS: *HR* Rivaroxaban 10 MG TABLET PO SCH (06:31)
[2017-01-27 07:16] VITALS: BP 162/73
[2017-01-27] MEDS: RisperiDAL 3 MG TABLET PO SCH (07:55)
[2017-01-27] MEDS: *HR* HYDROcodone/Acet 5/325 mg TABLET PO PRN ×2 (07:55→12:08)
[2017-01-27] MEDS: Insulin LISPRO 300 UNITS/3 ML VIAL SQ SCH ×2 (07:57→12:08)
--- NOTE | 2017-01-27 07:58 | Electrocardiograph Report ---
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
--- NOTE | 2017-01-27 08:37 | Internal Med Progress Note ---
<PapitojaredonofreBoby liang - Last Filed: 01/27/17 10:20> Date of Encounter: 01/27/17 Time of Encounter: 08:35 - Assessment and plan (1) Intractable nausea and vomiting Status: Acute Assessment and plan: Present on admission. Likely secondary to viral gastroenteritis Improved. No vomiting or diarrhea since admission. Some increased nausea with advancement of diet. Has been tolerating advancement well though. Continue prn zofran IV fluids stopped. Possible D/C tomorrow if stays stable. Qualifiers: Vomiting type: unspecified Qualified Code(s): R11.2 - Nausea with vomiting , unspecified (2) Gastroenteritis Status: Acute Assessment and plan: Present on admission. Likely viral. CT A/P showed no wall thickening. V/D have resolved. Continue to advance diet as tolerated. (3) CHF (congestive heart failure) Status: Chronic Assessment and plan: Chronic diastolic dysfunction Continue I/Os Consider restarting lasix now that MJ and V/D have resolved Qualifiers: Congestive heart failure type: diastolic Congestive heart failure chronicity: chronic Qualified Code(s): I50.32 - Chronic diastolic (congestive ) heart failure (4) HTN (hypertension) Status: Chronic Assessment and plan: Chronic Restarted patient's home medications continue hydralazine PRN. Qualifiers: Hypertension type: essential hypertension Qualified Code(s): I10 - Essential (primary) hypertension (5) Cirrhosis of liver Status: Chronic Assessment and plan: Non alcoholic liver cirrhosis. CT A/P showed stable cirrhotic morphology Consider restarting lasix and spirnalactone now that MJ has resolved. Qualifiers: Hepatic cirrhosis type: unspecified hepatic cirrhosis Ascites presence: without ascites Qualified Code(s): K74.60 - Unspecified cirrhosis of liver (6) Pancytopenia Status: Chronic Assessment and plan: Unknown etiology Chronic issue. Oncology was consulted in May 2016 for Pelvic Lymphadenopathy see on CT with some but progression since last CT 1 year prior. They recommended Follow up out patient for PET scan further work up. They stated evidence of Iron deficiency, chronic thrombocytopenia. B12 and folate were within normal limits. Will need follow up as an outpatient. (7) MJ (acute kidney injury) Status: Acute Assessment and plan: Resolved likely 2/2 to N/V/D. Cr 1.49 on admission. Cr now 1.01 IV fluids stopped consider restarting lasix and spirnalactone. (8) Diabetes mellitus, insulin dependent (IDDM), uncontrolled Status: Chronic Assessment and plan: Hgb A1C improved to 8.9 was 11.5 in october. consider restarting home insulin regimen continue SSI, acuchecks for now. Qualifiers: Diabetes mellitus complication status: with unspecified complications Qualified Code(s): E10.8 - Type 1 diabetes mellitus with unspecified complications; E10.65 - Type 1 diabetes mellitus with hyperglycemia (9) History of adrenal insufficiency Status: Chronic Assessment and plan: Patient was discharged home with hydrocortisone in october for adrenal inssufficiency. Not taking at home prior to this admission. Patient does not appear to be insufficient currently. Will need out patient f/u. - Subjective Interval history: Patient has been tolerating advancement of his diet. Patient reports some nausea with increased diet, but denies Vomiting or Diarrhea. He reports he feels his stomach is more distended and still has mild tenderness on the R side of his abdomen. - Constitutional Vitals: Temp Pulse Resp BP Pulse Ox 98.6 F 103 17 162/73 94 01/27/17 07:10 01/27/17 07:10 01/27/17 07:10 01/27/17 07:10 01/27/17 08:16 General appearance: Present: cooperative, A&O X 3, no acute distress, answers questions appropriately - Head Head exam: Present: atraumatic, normocephalic - Eye Eye exam: Present: PERRL, sclera anicteric - Neck Neck exam general surgery: Present: supple, trachea midline - Respiratory Respiratory exam: Present: CTAB. Absent: rales, respiratory distress, rhonchi, wheezes - Cardiovascular Cardiovascular exam: Present: RRR, +S1, +S2. Absent: diastolic murmur, gallop, rubs, systolic murmur - GI/Abdominal GI/Abdominal exam: Present: distended, normal bowel sounds, soft, tenderness ( Mild RLQ and RUQ. ) - Extremities Exam Extremities exam: Absent: calf tenderness, cyanotic, pedal edema - Neurological Exam Neurological exam: Present: alert, oriented X3. Absent: facial droop, speech deficit - Psychiatric Psychiatric exam: Present: normal affect, normal mood - Skin Skin exam: Present: dry, intact, warm Internal Medicine: Result - Labs CBC & Chem 7: 01/27/17 05:18 01/27/17 05:18 Labs: Short CBC 01/27/17 Range/Units 05:18 WBC 2.6 L (4.3-11.1) K/mcL Hgb 9.7 L (12.9-16.9) g/dL Hct 28.8 L (37.5-50.1) % Plt Count 58 L (140-400) K/mcL BMP 01/26/17 01/27/17 06:23 05:18 Sodium 135 L 133 L Potassium 4.0 4.6 H Chloride 105 105 Carbon Dioxide 24 22 BUN 24 16 Creatinine 1.13 1.01 Glucose 222 H 342 H Calcium 9.3 8.9 Consult Discharge Plan - Plan Instructions: Diabetes Mellitus Type 2 in Adults (DC), Gastroenteritis (DC) Additional Instructions: Please follow up with your primary care provider within 1 week of discharge. Please follow up with Hematology/oncology as scheduled. Please follow up with Endocrinology as scheduled. Please resume all of your home medications and take them as prescribed. Please return to the hospital if you experience any new or worsening symptoms. Referrals: Beatriz Salinas MD [Partnered Physician] - (Web request sent 01/27/17. Office is to call Pt. ) Sherlyn Ramos MD [Partnered Physician] - 02/18/17 10:00 am (Please follow up with Dr. Ramos at [facility]. [phone]) [place],PCP [Primary Care Provider] - 02/02/17 9:15 am <Piero Macias - Last Filed: 01/27/17 17:34> Date of Encounter: 01/27/17 - Constitutional Vitals: Temp Pulse Resp BP Pulse Ox 98.6 F 103 17 162/73 94 01/27/17 07:10 01/27/17 07:10 01/27/17 07:10 01/27/17 07:10 01/27/17 08:16 Internal Medicine: Result - Labs CBC & Chem 7: 01/27/17 05:18 01/27/17 05:18 Labs: Short CBC 01/27/17 Range/Units 05:18 WBC 2.6 L (4.3-11.1) K/mcL Hgb 9.7 L (12.9-16.9) g/dL Hct 28.8 L (37.5-50.1) % Plt Count 58 L (140-400) K/mcL BMP 01/27/17 05:18 Sodium 133 L Potassium 4.6 H Chloride 105 Carbon Dioxide 22 BUN 16 Creatinine 1.01 Glucose 342 H Calcium 8.9 - Attending Attestation I examined this patient and my medical decision-making was reviewed with the Resident Physician. I agree with the documented findings, disposition and treatment plan as described except to the extent set forth below.
[2017-01-27] MEDS ORDERED: Aspirin Enteric Coated 81 MG Tablet PO SCH (10:30)
[2017-01-27] MEDS ORDERED: Cholecalciferol (D-3) 1,000 UNIT TABLET PO SCH (10:30)
--- NOTE | 2017-01-27 11:05 | Discharge Summary ---
<Boby Benavides - Last Filed: 01/27/17 12:15> Date of Encounter: 01/27/17 Time of Encounter: 11:01 - Discharge Diagnosis (1) Intractable nausea and vomiting Priority: Secondary Status: Acute Qualifiers: Vomiting type: unspecified Qualified Code(s): R11.2 - Nausea with vomiting , unspecified (2) Gastroenteritis Priority: Primary Status: Acute (3) CHF (congestive heart failure) Priority: Secondary Status: Chronic Qualifiers: Congestive heart failure type: diastolic Congestive heart failure chronicity: chronic Qualified Code(s): I50.32 - Chronic diastolic (congestive ) heart failure (4) HTN (hypertension) Priority: Secondary Status: Chronic Qualifiers: Hypertension type: essential hypertension Qualified Code(s): I10 - Essential (primary) hypertension (5) Cirrhosis of liver Priority: Secondary Status: Chronic Qualifiers: Hepatic cirrhosis type: unspecified hepatic cirrhosis Ascites presence: without ascites Qualified Code(s): K74.60 - Unspecified cirrhosis of liver (6) Pancytopenia Priority: Secondary Status: Chronic (7) MJ (acute kidney injury) Priority: Secondary Status: Acute (8) Diabetes mellitus, insulin dependent (IDDM), uncontrolled Priority: Secondary Status: Chronic Qualifiers: Diabetes mellitus complication status: with unspecified complications Qualified Code(s): E10.8 - Type 1 diabetes mellitus with unspecified complications; E10.65 - Type 1 diabetes mellitus with hyperglycemia (9) History of adrenal insufficiency Priority: Secondary Status: Chronic - Discharge Medications Home Medications: Cholecalciferol (Vitamin D3) [Vitamin D] 2,000 unit PO DAILY 05/13/15 [History] Insulin ASPART [NovoLOG] 48 - 100 unit SQ TIDWM 05/13/15 [History] Aspirin Enteric Coated [Aspirin EC] 81 mg PO DAILY 11/13/15 [History] Atorvastatin [Lipitor] 40 mg PO HS 11/13/15 [History] Insulin Glargine,Hum.rec.anlog [Lantus Solostar] 160 unit SQ BID 11/13/15 [ History] Lactulose 15 gm PO BID 11/13/15 [History] Omeprazole [PriLOSEC] 20 mg PO DAILY 11/13/15 [History] Tamsulosin [Flomax] 0.4 mg PO DAILY 11/13/15 [History] Furosemide [Lasix] 40 mg PO DAILY 05/16/16 [History] Rivaroxaban [Xarelto] 10 mg PO DAILY 05/16/16 [History] risperiDONE [Risperdal] 3 mg PO HS 05/16/16 [History] Atenolol [Tenormin] 50 mg PO DAILY 05/29/16 [History] Ipratropium/Albuterol Neb [Duoneb] 3 ml IH QID 08/10/16 [History] Lisinopril [Zestril] 2.5 mg PO HS #0 09/14/16 [Rx] DiphenhydraMINE [Benadryl] 50 mg PO HS PRN 10/27/16 [History] Sertraline [Zoloft] 100 mg PO DAILY 10/27/16 [History] Spironolactone [Aldactone] 50 mg PO DAILY 10/27/16 [History] Cyprohepatdine [Periactin] 4 mg PO HS 01/26/17 [History] Ibuprofen [Motrin] 600 mg PO Q8HR PRN 01/26/17 [History] Melatonin [Melatin] 9 mg PO HS 01/26/17 [History] Metformin HCl [Glucophage] 1,000 mg PO BID 01/26/17 [History] Buprenorphine HCl/Naloxone HCl [Buprenorphin-Naloxon 8-2 mg Sl] 1 tab SL BID [History] Allergies/Adverse Reactions: 3 Allergy/AdvReac Type Severity Reaction Status Date / Time Iodinated Contrast- Oral and Allergy Difficulty Verified 01/26/17 08:46 IV Dye Breathing ketorolac [From Toradol] Allergy Nausea Verified 01/26/17 08:46 Penicillins Allergy Rash Verified 01/26/17 08:46 butorphanol [From Stadol] AdvReac Nausea Verified 01/26/17 08:46 celecoxib AdvReac unknown Verified 01/26/17 08:46 gabapentin AdvReac unknown Verified 01/26/17 08:46 mirtazapine AdvReac unknown Verified 01/26/17 08:46 tramadol AdvReac unknown Verified 01/26/17 08:46 vancomycin AdvReac unknown Verified 01/26/17 08:46 Procedures/tests Complete & Pending: CT A/P: "FINDINGS: Lower Chest: Bibasilar dependent airspace disease is most compatible with cyst. Organs: The morphology liver is cirrhotic with nodular contour as well fissure widening, caudate lobe and lateral segment hypertrophy. There a stable medial segment 2.4 cm cyst, benign finding which typically requires no specific follow-up. The spleen is mildly prominent size, stable. Noncontrast images of the pancreas, adrenal glands, and kidneys show no acute abnormality. The gallbladder is surgically absent. GI/Bowel: The bowel shows normal caliber and course without suspected wall thickening. Although the appendix is not visualized, no secondary signs of pericecal inflammation are present. Pelvis: The prostate gland and urinary bladder show no abnormality. Peritoneum/Retroperitoneum: The aorta shows calcifications without aneurysmal dilation. Bones/Soft Tissues: No acute or focal bony abnormality. Shotty upper abdominal adenopathy is unchanged, a finding common in the setting of chronic liver disease. There is evidence of prior anterior abdominal wall hernia repair with radiopaque mesh. No recurrent hernia. No free fluid CT/CT abd pelvis wo no iv no oral IMPRESSION: Stable noncontrast findings of the abdomen and pelvis including cirrhotic morphology of the liver and splenomegaly." CXR: " FINDINGS: The lungs and pleural spaces are without acute focal process. Mild cardiomegaly is noted There is no evidence of pneumothorax. The osseous structures are without acute process. XR/XR chest 1V portable IMPRESSION: No acute process. Mild cardiomegaly" Date of admission: 01/26/17 03:04 Primary care physician: PCP [place] Consults: 01/26/17 04:04 Consult to Nutrition [CONS] Routine Comment: pt recently lost weight n/v Consulting Provider: NUTRITION Reason for Dietary Consult: MST Score 01/26/17 05:56 Consult to Laundrette Owner [CONS] Routine Reason for SW Consult: pt from [facility] aff[facility] with [facility] Discharging clinician: Boby Benavides Anticipated date of discharge: 01/27/17 - Patient Status Disposition: Home, Self-Care Condition: Fair Functional capacity at discharge: independent ambulation Overall status at discharge: patient is progressing back to baseline - Discharge Instructions Instructions: Diabetes Mellitus Type 2 in Adults (DC), Gastroenteritis (DC) Follow Up With: Beatriz Salinas MD [Partnered Physician] - (Web request sent 01/27/17. Office is to call Pt. ) Sherlyn Ramos MD [Partnered Physician] - 02/18/17 10:00 am (Please follow up with Dr. Ramos at [facility]. [phone]) [facility],PCP [Primary Care Provider] - 02/02/17 9:15 am Additional Instructions: Please follow up with your primary care provider within 1 week of discharge. Please follow up with Hematology/oncology as scheduled. Please follow up with Endocrinology as scheduled. Please resume all of your home medications and take them as prescribed. Please return to the hospital if you experience any new or worsening symptoms. - Diet and Activity Activity: resume usual activities as tolerated Diet: diabetic diet, low salt diet Interval History: Patient reports feeling well enough to go home and would like to be discharged. We will arrange out patient follow up with heme/onc and endocrinology and send the patient home. Hospital course: Mr. Ramirez is a 66 year old male c PMHx of IDDM, non-alcoholic liver cirrhosis, dCHF (LVEF 60% with moderate diastolic dysfunction per echo on 10/28/16), history of adrenal insufficiency, history of PE currently on Xarelto, COPD, CAD , HLD, HTN, TIA, Pancytopenia reports to the hospital for intractable Nausea, Vomiting, Diarrhea. Patient was treated with IV fluids and Zofran. Patient had no Vomiting or Diarrhea during hospitalization. Patient had an MJ on admission which resolved with IV fluids. Patient's diet was advanced successfully back to full diet and was discharged back to his alf. Patient will need follow up with Heme/Onc and Endocrinology for his chronic problems of pancytopenia, and Adrenal insufficiency. - Time Spent with Patient Total time spent providing and/or coordinating discharge services: 40 minutes - Constitutional Vitals: Temp Pulse Resp BP Pulse Ox 98.6 F 103 17 162/73 94 01/27/17 07:10 01/27/17 07:10 01/27/17 07:10 01/27/17 07:10 01/27/17 08:16 General appearance: Present: cooperative, A&O X 3, no acute distress, answers questions appropriately - Head Head exam: Present: atraumatic, normocephalic - Eye Eye exam: Present: PERRL, sclera anicteric Pupils: Present: PERRL - Neck Neck exam general surgery: Present: supple, trachea midline - Respiratory Respiratory exam: Present: CTAB. Absent: rales, rhonchi, wheezes - Cardiovascular Cardiovascular exam: Present: RRR, +S1, +S2. Absent: distant heart sounds, gallop, rubs, systolic murmur - GI/Abdominal GI/Abdominal exam: Present: normal bowel sounds, soft. Absent: tenderness - Extremities Exam Extremities exam: Absent: calf tenderness, cyanotic, pedal edema - Neurological Exam Neurological exam: Present: alert, oriented X3. Absent: facial droop, speech deficit - Psychiatric Psychiatric exam: Present: normal affect, normal mood - Skin Skin exam: Present: dry, intact, warm <Colleen,Piero P - Last Filed: 01/27/17 17:35> Date of Encounter: 01/27/17 Date of admission: 01/26/17 03:04 Primary care physician: PCP [facility] Consults: 01/26/17 04:04 Consult to Nutrition [CONS] Routine Comment: pt recently lost weight n/v Consulting Provider: NUTRITION Reason for Dietary Consult: MST Score 01/26/17 05:56 Consult to Laundrette Owner [CONS] Routine Reason for SW Consult: pt from [facility]ilated with [facility] Hospital course: Mr. Ramirez is a 66 year old male - Time Spent with Patient Total time spent providing and/or coordinating discharge services: - Constitutional Vitals: Temp Pulse Resp BP Pulse Ox 98.6 F 103 17 162/73 94 01/27/17 07:10 01/27/17 07:10 01/27/17 07:10 01/27/17 07:10 01/27/17 08:16 - Attending Attestation I examined this patient and my medical decision-making was reviewed with the Resident Physician. I agree with the documented findings, disposition and treatment plan as described except to the extent set forth below. Follow-up with hematology/oncology for persistent pancytopenia. Patient had a previous follow-up with hematology oncology for the same reason. Diarrhea resolved. Patient is keen for home Follow up with PCP/specialist appointment which is scheduled previously
== END 2017-01-27 13:41 | disposition home or self-care (01) ==
LOC: EMEROO 22:14 → 2ANU 22:14
PROVIDERS: ADMIT Internal Medicine; ATTEND Internal Medicine

== ENCOUNTER 2017-01-29 21:45 | Inpatient (IN) ==
[2017-01-29] MEDS ORDERED: 0.9 % Sodium Chloride 1,000 ML IVC ONE ×2 (21:51→22:44)
[2017-01-29] MEDS ORDERED: Ondansetron 4 MG/2 ML VIAL IVP ONE (21:51)
[2017-01-29 22:27] LABS: VBG HCO3 20.8 mEq/L (21-27); VBG PH 7.37 pH Units (7.32-7.42)
[2017-01-29 22:33] LABS: Basophils % 0.2 %; Eosinophils # 0.1 K/mcL (0.0-0.6); Eosinophils % 2.7 %; Hematocrit 31.7 % (37.5-50.1); Hemoglobin 10.9 g/dL (12.9-16.9); Immature Granulocytes % 0.2 % (0-4); Lymphocytes # 1.1 K/mcL (0.6-4.6); Lymphocytes % 24.8 %; Mean Corpuscular HGB Conc 34.4 g/dL (31.6-35.5); Mean Corpuscular Hemoglobin 29.3 pg (28.0-33.3); Mean Corpuscular Volume 85.2 fL (83.0-100.0); Mean Platelet Volume 11.6 fL (9.4-12.4); Monocytes # 0.3 K/mcL (0.0-1.3); Monocytes % 6.9 %; Neutrophils # 2.9 K/mcL (1.6-8.9); Platelet Count 76 K/mcL (140-400); Red Blood Count 3.72 M/mcL (4.19-5.50); Red Cell Distribution Width 14.6 % (11.5-14.5); Segmented Neutrophils % 65.2 %
[2017-01-29 22:45] LABS: Albumin 3.4 g/dL (3.5-5.0); Albumin/Globulin Ratio 0.8 (1.1-2.2); Bilirubin,Direct 0.4 mg/dL (0.0-0.5); Bilirubin,Indirect 0.2 mg/dL (0.0-1.2); Bilirubin,Total 0.6 mg/dL (0.2-1.2); Calcium 9.6 mg/dL (8.6-10.8); Globulin 4.3 g/dL (2.4-3.5); Potassium 4.1 mEq/L (3.5-4.5); Total Protein 7.7 g/dL (6.0-8.3)
--- NOTE | 2017-01-29 22:48 | Emergency Department Note ---
Disposition Clinical Impression: Dehydration, MJ (acute kidney injury), Poorly controlled diabetes mellitus, Obesity (BMI 30-39.9), Hyperglycemia without ketosis, Lactic acidosis Disposition: Admitted As Inpatient Condition: Good Time of Disposition: 23:39 General Adult HPI - General Chief complaint: ED General Medical Stated complaint: hyperglycemia Time Seen by Provider: 01/29/17 21:51 Source: patient, EMS Limitations: no limitations Nursing Notes Reviewed: Yes Vital Signs Reviewed: Yes - History of Present Illness HPI Narrative: 66-year-old male with history of insulin-dependent diabetes mellitus presents to the ED via EMS for hyperglycemia. Sugars have been greater than 500 despite giving when he reports 300 units of insulin. States his normally on a sliding scale and takes roughly 104 units. He had a meal which consisted of a open sandwich, pork chop, macaroni and cheese his blood sugar was 500. It remained that high. He does report some nausea. Denies any recent illness. He was just recently discharged from the hospital for his CHEN cirrhosis and intractable nausea and vomiting. Denies any chest pain, shortness of breath. Denies any new medications. He does live at a [facility]. Pain Scale: 0 - Related Data Home Medications Medication Instructions Recorded Confirmed Cholecalciferol (Vitamin D3) 2,000 unit PO DAILY 05/13/15 01/26/17 [Vitamin D] Insulin ASPART [NovoLOG] 48 - 100 unit SQ TIDWM 05/13/15 01/26/17 Aspirin Enteric Coated [Aspirin EC] 81 mg PO DAILY 11/13/15 01/26/17 Atorvastatin [Lipitor] 40 mg PO HS 11/13/15 01/26/17 Insulin Glargine,Hum.rec.anlog 160 unit SQ BID 11/13/15 01/26/17 [Lantus Solostar] Lactulose 15 gm PO BID 11/13/15 01/26/17 Omeprazole [PriLOSEC] 20 mg PO DAILY 11/13/15 01/26/17 Tamsulosin [Flomax] 0.4 mg PO DAILY 11/13/15 01/26/17 Furosemide [Lasix] 40 mg PO DAILY 05/16/16 01/26/17 Rivaroxaban [Xarelto] 10 mg PO DAILY 05/16/16 01/26/17 risperiDONE [Risperdal] 3 mg PO HS 05/16/16 01/26/17 Atenolol [Tenormin] 50 mg PO DAILY 05/29/16 01/26/17 Ipratropium/Albuterol Neb [Duoneb] 3 ml IH QID 08/10/16 01/26/17 DiphenhydraMINE [Benadryl] 50 mg PO HS PRN 10/27/16 01/26/17 Sertraline [Zoloft] 100 mg PO DAILY 10/27/16 01/26/17 Spironolactone [Aldactone] 50 mg PO DAILY 10/27/16 01/26/17 Cyprohepatdine [Periactin] 4 mg PO HS 01/26/17 01/26/17 Ibuprofen [Motrin] 600 mg PO Q8HR PRN 01/26/17 01/26/17 Melatonin [Melatin] 9 mg PO HS 01/26/17 01/26/17 Metformin HCl [Glucophage] 1,000 mg PO BID 01/26/17 01/26/17 Buprenorphine HCl/Naloxone HCl 1 tab SL BID 01/27/17 01/27/17 [Buprenorphin-Naloxon 8-2 mg Sl] Previous Rx's Medication Instructions Recorded Lisinopril [Zestril] 2.5 mg PO HS #0 09/14/16 Allergies Allergy/AdvReac Type Severity Reaction Status Date / Time Iodinated Contrast- Oral and Allergy Difficulty Verified 01/26/17 08:46 IV Dye Breathing ketorolac [From Toradol] Allergy Nausea Verified 01/26/17 08:46 Penicillins Allergy Rash Verified 01/26/17 08:46 butorphanol [From Stadol] AdvReac Nausea Verified 01/26/17 08:46 celecoxib AdvReac unknown Verified 01/26/17 08:46 gabapentin AdvReac unknown Verified 01/26/17 08:46 mirtazapine AdvReac unknown Verified 01/26/17 08:46 tramadol AdvReac unknown Verified 01/26/17 08:46 vancomycin AdvReac unknown Verified 01/26/17 08:46 All systems ED: reviewed and negative except as stated. Review of Systems: As Per HPI Constitutional: Denies: fever, chills Cardiovascular: Denies: chest pain, dyspnea on exertion Respiratory: Denies: cough, dyspnea Gastrointestinal: Reports: nausea. Denies: abdominal pain, vomiting Genitourinary: Denies: urgency, dysuria Musculoskeletal: Denies: back pain, neck pain Integumentary: Denies: rash, abrasion, lesions Neurological: Denies: headache, weakness, numbness Past Medical History - Past Medical History Attestation: Yes The following information was validated with the patient. Source: patient Medical history: Reports: arthritis, cirrhosis, CHF, COPD, coronary artery disease, diabetes, GERD, hyperlipidemia, hypertension, liver disease, osteoporosis, TIA Surgical history: Reports: appendectomy, cholecystectomy, herniorrhaphy, knee replacement, other Psychiatric history: Reports: anxiety, depression, panic disorder, PTSD, previous psychiatric hospitalization - Social History Smoking Status: Never smoker Smokeless Tobacco Status: No Alcohol use: Reports: none Drug use: Reports: none Physical Exam - General Limitations: no limitations General appearance: alert, in no apparent distress - Head Head exam: atraumatic, normocephalic, normal inspection - Eye Eye exam: Present: normal appearance, EOMI - ENT ENT exam: normal exam, normal oropharynx, mucous membranes dry - Neck Neck exam: Present: normal inspection, full ROM, trachea midline - Chest Chest inspection: Present: normal inspection, symmetric chest wall rise - Respiratory Respiratory exam: Present: normal lung sounds bilaterally. Absent: respiratory distress, wheezes - Cardiovascular Cardiovascular exam: Present: regular rate, normal rhythm, normal heart sounds - Abdominal Exam Abdominal exam: Present: soft (obese), Non-Tender, normal bowel sounds. Absent : tenderness, distention, guarding, rebound, rigidity - Extremities Exam Extremities exam: Present: normal inspection, full ROM, normal capillary refill. Absent: tenderness, pedal edema, calf tenderness - Back Exam Back exam: Present: normal inspection, full ROM. Absent: tenderness, CVA tenderness (R), CVA tenderness (L) - Neurological Exam Neurological exam: Present: alert, oriented X3, CN II-XII intact - Skin Skin exam: Present: warm, dry, intact, normal color Course - Reevaluation(s) Reevaluation #1: Patient presents with uncontrolled diabetes. His initial glucose 411. He is afebrile. Here is no acute distress. Or mucosal membranes do appear slightly dry. He has been nauseated with some vomiting over the past week recently discharged 2 days ago. DKA workup initiated, he has received over 2 L normal saline. No serum ketones or acidosis. He does have a hyponatremia secondary to his hyperglycemia. He has chronic thrombocytopenia that appear stable. Lactate however is significantly elevated 4.1. His creatinine is also elevated 1.65. Consistent with dehydration and acute kidney injury. Not consistent with DKA or HHS. No ketosis. The rest of his labs are fairly unremarkable. Patient would benefit admission to control his sugars as well as fluid hydration. Impression is dehydration, acute kidney injury, hyperglycemia without ketosis and lactic acidosis. At this time will not start a insulin drip. Patient is in agreement with this plan. He does report a slight headache. Morphine was ordered for pain. Time: 23:00 - Consultations Consultation #1: Spoke with on-call hospitalist donna Rubio to admit for hyperglycemia, acute kidney injury, and lactic acidosis. No further orders at this time Time: 23:38 Vital Signs Temperature 98.4 F 01/29/17 21:47 Pulse Rate 98 01/29/17 21:47 Respiratory Rate 18 01/29/17 21:47 Blood Pressure 141/74 01/29/17 21:47 O2 Sat by Pulse Oximetry 97 01/29/17 21:47 Temperature 98.4 F 01/30/17 05:19 Pulse Rate 86 01/30/17 05:19 Respiratory Rate 16 01/30/17 05:19 Blood Pressure 131/67 01/30/17 05:19 O2 Sat by Pulse Oximetry 97 01/30/17 05:19 Oxygen Delivery Oxygen Delivery Room Air Medical Decision Making - Medical Records Medical records reviewed: Yes I reviewed the patient's medical records. - Lab Data Lab results reviewed: Yes I reviewed the patient's lab results. Result diagrams: 01/30/17 05:00 01/30/17 05:00 Lab Results 01/29/17 01/29/17 01/29/17 Range/Units 21:50 21:51 22:15 WBC (4.3-11.1) K/mcL RBC (4.19-5.50) M/mcL Hgb (12.9-16.9) g/dL Hct (37.5-50.1) % MCV (83.0-100.0) fL MCH (28.0-33.3) pg MCHC (31.6-35.5) g/dL RDW (11.5-14.5) % Plt Count (140-400) K/mcL MPV (9.4-12.4) fL Immature Gran % (0-4) % Seg Neutrophils % % Lymphocytes % % Monocytes % % Eosinophils % % Basophils % % Neutrophils # (1.6-8.9) K/mcL Lymphocytes # (0.6-4.6) K/mcL Monocytes # (0.0-1.3) K/mcL Eosinophils # (0.0-0.6) K/mcL Basophils # (0.0-0.2) K/mcL Platelet Estimate (Normal) Polychromasia (Not Present) VBG pH (7.32-7.42) pH Units VBG pCO2 (41-51) mmHg VBG pO2 (25-40) mmHg VBG HCO3 (21-27) mEq/L Sodium (136-145) mEq/L Potassium (3.5-4.5) mEq/L Chloride (98-109) mEq/L Carbon Dioxide (19-29) mEq/L BUN (8-26) mg/dL Creatinine (0.72-1.25) mg/dL Est GFR ( Amer) (> 60) Est GFR (Non-Af Amer) (> 60) BUN/Creatinine Ratio (6-26) Glucose (70-99) mg/dL POC Glucose 428 H* 411 H* (58-89) Calculated Osmolality (280-300) Lactic Acid 4.1 H* (0.5-2.2) mmol/L Calcium (8.6-10.8) mg/dL Total Bilirubin (0.2-1.2) mg/dL Direct Bilirubin (0.0-0.5) mg/dL Indirect Bilirubin (0.0-1.2) mg/dL AST (5-34) Units/L ALT (0-55) Units/L Alkaline Phosphatase (38-126) Units/L Serum Total Protein (6.0-8.3) g/dL Albumin (3.5-5.0) g/dL Globulin (2.4-3.5) g/dL Albumin/Globulin Ratio (1.1-2.2) Amylase (25-125) Units/L Lipase (8-78) Units/L Beta-Hydroxybutyric Acd (0.02-0.27) mmol/L Urine Color (Yellow) Urine Clarity (Clear) Urine pH (5.0-8.0) pH Units Ur Specific Coats (1.010-1.025) Urine Protein (Neg-Trace) mg/dL Urine Glucose (UA) (Normal) mg/dL Urine Ketones (Negative) mg/dL Urine Blood (Negative) Urine Nitrite (Negative) Urine Bilirubin (Negative) Urine Urobilinogen (Normal) mg/dL Ur Leukocyte Esterase (Negative) Ur Culture Indicated? (NO) 01/29/17 01/29/17 01/29/17 Range/Units 22:15 22:15 22:15 WBC 4.5 D (4.3-11.1) K/mcL RBC 3.72 L (4.19-5.50) M/mcL Hgb 10.9 L (12.9-16.9) g/dL Hct 31.7 L (37.5-50.1) % MCV 85.2 (83.0-100.0) fL MCH 29.3 (28.0-33.3) pg MCHC 34.4 (31.6-35.5) g/dL RDW 14.6 H (11.5-14.5) % Plt Count 76 L (140-400) K/mcL MPV 11.6 (9.4-12.4) fL Immature Gran % 0.2 (0-4) % Seg Neutrophils % 65.2 % Lymphocytes % 24.8 % Monocytes % 6.9 % Eosinophils % 2.7 % Basophils % 0.2 % Neutrophils # 2.9 (1.6-8.9) K/mcL Lymphocytes # 1.1 (0.6-4.6) K/mcL Monocytes # 0.3 (0.0-1.3) K/mcL Eosinophils # 0.1 (0.0-0.6) K/mcL Basophils # 0.0 (0.0-0.2) K/mcL Platelet Estimate Decreased L (Normal) Polychromasia 1+ A (Not Present) VBG pH (7.32-7.42) pH Units VBG pCO2 (41-51) mmHg VBG pO2 (25-40) mmHg VBG HCO3 (21-27) mEq/L Sodium 130 L (136-145) mEq/L Potassium 4.1 (3.5-4.5) mEq/L Chloride 100 (98-109) mEq/L Carbon Dioxide 21 (19-29) mEq/L BUN 21 (8-26) mg/dL Creatinine 1.65 H D (0.72-1.25) mg/dL Est GFR ( Amer) 51 L (> 60) Est GFR (Non-Af Amer) 42 L (> 60) BUN/Creatinine Ratio 13 (6-26) Glucose 411 H (70-99) mg/dL POC Glucose (58-89) Calculated Osmolality 290 (280-300) Lactic Acid (0.5-2.2) mmol/L Calcium 9.6 (8.6-10.8) mg/dL Total Bilirubin 0.6 (0.2-1.2) mg/dL Direct Bilirubin 0.4 (0.0-0.5) mg/dL Indirect Bilirubin 0.2 (0.0-1.2) mg/dL AST 39 H (5-34) Units/L ALT 39 (0-55) Units/L Alkaline Phosphatase 142 H (38-126) Units/L Serum Total Protein 7.7 (6.0-8.3) g/dL Albumin 3.4 L (3.5-5.0) g/dL Globulin 4.3 H (2.4-3.5) g/dL Albumin/Globulin Ratio 0.8 L (1.1-2.2) Amylase 85 (25-125) Units/L Lipase 98 H (8-78) Units/L Beta-Hydroxybutyric Acd 0.23 (0.02-0.27) mmol/L Urine Color (Yellow) Urine Clarity (Clear) Urine pH (5.0-8.0) pH Units Ur Specific Coats (1.010-1.025) Urine Protein (Neg-Trace) mg/dL Urine Glucose (UA) (Normal) mg/dL Urine Ketones (Negative) mg/dL Urine Blood (Negative) Urine Nitrite (Negative) Urine Bilirubin (Negative) Urine Urobilinogen (Normal) mg/dL Ur Leukocyte Esterase (Negative) Ur Culture Indicated? (NO) 01/29/17 01/29/17 01/29/17 Range/Units 22:15 22:44 23:41 WBC (4.3-11.1) K/mcL RBC (4.19-5.50) M/mcL Hgb (12.9-16.9) g/dL Hct (37.5-50.1) % MCV (83.0-100.0) fL MCH (28.0-33.3) pg MCHC (31.6-35.5) g/dL RDW (11.5-14.5) % Plt Count (140-400) K/mcL MPV (9.4-12.4) fL Immature Gran % (0-4) % Seg Neutrophils % % Lymphocytes % % Monocytes % % Eosinophils % % Basophils % % Neutrophils # (1.6-8.9) K/mcL Lymphocytes # (0.6-4.6) K/mcL Monocytes # (0.0-1.3) K/mcL Eosinophils # (0.0-0.6) K/mcL Basophils # (0.0-0.2) K/mcL Platelet Estimate (Normal) Polychromasia (Not Present) VBG pH 7.37 (7.32-7.42) pH Units VBG pCO2 36 L (41-51) mmHg VBG pO2 51 H (25-40) mmHg VBG HCO3 20.8 L (21-27) mEq/L Sodium (136-145) mEq/L Potassium (3.5-4.5) mEq/L Chloride (98-109) mEq/L Carbon Dioxide (19-29) mEq/L BUN (8-26) mg/dL Creatinine (0.72-1.25) mg/dL Est GFR ( Amer) (> 60) Est GFR (Non-Af Amer) (> 60) BUN/Creatinine Ratio (6-26) Glucose (70-99) mg/dL POC Glucose 327 H (58-89) Calculated Osmolality (280-300) Lactic Acid (0.5-2.2) mmol/L Calcium (8.6-10.8) mg/dL Total Bilirubin (0.2-1.2) mg/dL Direct Bilirubin (0.0-0.5) mg/dL Indirect Bilirubin (0.0-1.2) mg/dL AST (5-34) Units/L ALT (0-55) Units/L Alkaline Phosphatase (38-126) Units/L Serum Total Protein (6.0-8.3) g/dL Albumin (3.5-5.0) g/dL Globulin (2.4-3.5) g/dL Albumin/Globulin Ratio (1.1-2.2) Amylase (25-125) Units/L Lipase (8-78) Units/L Beta-Hydroxybutyric Acd (0.02-0.27) mmol/L Urine Color Yellow (Yellow) Urine Clarity Clear (Clear) Urine pH 6.0 (5.0-8.0) pH Units Ur Specific Coats > 1.030 H (1.010-1.025) Urine Protein Negative (Neg-Trace) mg/dL Urine Glucose (UA) >=1000 H (Normal) mg/dL Urine Ketones Negative (Negative) mg/dL Urine Blood Negative (Negative) Urine Nitrite Negative (Negative) Urine Bilirubin Negative (Negative) Urine Urobilinogen Normal (Normal) mg/dL Ur Leukocyte Esterase Negative (Negative) Ur Culture Indicated? NO (NO)
[2017-01-29 22:50] LABS: Bilirubin,Urine Negative (Negative); Blood,Urine Negative (Negative); Clarity,Urine Clear (Clear); Color,Urine Yellow (Yellow); Glucose,Urine (UA) >=1000 mg/dL (Normal); Ketones,Urine Negative (Negative); Leukocyte Esterase,Urine Negative (Negative); Nitrite,Urine Negative (Negative); Protein,Urine Negative (Neg-Trace); Specific Gravity,Urine > 1.030 (1.010-1.025); Urobilinogen,Urine Normal (Normal)
--- NOTE | 2017-01-29 22:52 | Emergency Department Note ---
START Narrative - START START: I examined this patient and my medical decision-making was reviewed with the Resident Physician. I agree with the documented findings, disposition and treatment plan as described except to the extent set forth below. Patient seen with the emergency medicine resident Dr. Rickie Lozano, Please see a copy of his notes for details of the H&P, ED evaluation, management and disposition. I have independently evaluated the patient and confirmed appropriate portions of the history and physical exam. Briefly: This is a 6-year-old insulin-dependent diabetic by EMS for persistent hyperglycemia. Patient says his sugars up in over 500. Despite being discharged from [facility] less than 2 days ago. He said despite using escalating doses of insulin at home up to "100 units at a time". His sugars have remained high. He arrives awake and alert slightly dehydrated. GCS 15. Lab screening will be occurring for hyperglycemia workup IV fluids. Disposition pending. Providing 30 minutes of critical care services for this patient.
[2017-01-29 22:58] LABS: Platelet Estimate Decreased (Normal); Polychromasia 1+ (Not Present)
[2017-01-29] MEDS ORDERED: *HR* Morphine 2 MG/ML SYRINGE IVP ONE (23:08)
[2017-01-29] MEDS ORDERED: 0.9 % Sodium Chloride 1,000 ML IVC SCH (23:45)
[2017-01-30] MEDS ORDERED: Naloxone 0.4 MG/ML INJ IVP PRN (00:29)
[2017-01-30] MEDS ORDERED: *HR* Morphine 2 MG/ML SYRINGE IVP ONE (00:33)
[2017-01-30] MEDS ORDERED: Acetaminophen 325 MG TABLET PO PRN (00:34)
[2017-01-30] MEDS ORDERED: Ondansetron 4 MG/2 ML VIAL IVP PRN (00:34)
[2017-01-30] MEDS ORDERED: *HR* Dextrose 50 % in Water (Syg) 50 ML SYRINGE IVP PRN (00:39)
[2017-01-30] MEDS ORDERED: Dextrose Gel 15 GM PO PRN ×2 (00:39)
[2017-01-30] MEDS ORDERED: D5% in Water 1,000 ML IVC PRN (00:39)
--- NOTE | 2017-01-30 01:11 | Internal Med History&Physical ---
<Francisco Rosas - Last Filed: 01/30/17 01:05> Date of Encounter: 01/30/17 Time of Encounter: 01:05 Assessment and Plan (1) Hyperglycemia due to type 1 diabetes mellitus Current visit: Yes Status: Acute 66 y/o male presents with chief complaint of hyperglycemia. Reports blood sugar consistently elevated above 500. On presentation blood sugar is 404 At home patient is on Lantus 160 units twice a day and states he was using NovoLog 100 units before meals. Patient reports following diabetic diet. Reviewing EMR records patient's hemoglobin A1c improved from 11.4% in October 2016 to 8.9% in January 2017. 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 ACHS DVT prophylaxis (2) Abdominal pain Current visit: Yes Status: Acute Reports left lower quadrant abdominal pain at a 7 out of 10 sharp started after he was discharged a few days ago from [facility] for viral gastroenteritis. On physical exam patient's abdomen is nontender, nondistended with bowel sounds , without guarding, without organomegaly, without rigidity During previous admission CT abdomen/pelvis showed stable liver cirrhosis and was negative for any complications Denies nausea, vomiting, diarrhea, hematochezia, melena Plan: We will continue monitor serial abdominal exams. If pain becomes worse may need more imaging. Qualifiers: Abdominal location: left lower quadrant Qualified Code(s): R10.32 - Left lower quadrant pain (3) Lactic acidosis Current visit: Yes Status: Acute increased lactic acid insetting of MJ, hyperglycemia. Patient is afebrile, WBC within normal limits, blood pressure stable, instability within normal limits. Bicarb wnl pH 7.37, pco2 36 etiology unclear. Patient does report abdominal pain. Recently discharged for viral gastroenteritis. Plan: trend lactic acid IVF If abdominal pain worsening, may require reimaging of abdomen. (4) Acute kidney injury Current visit: Yes Status: Acute Patient's baseline serum creatinine is 1 Presented several 1.65 Likely secondary to dehydration in setting of hyperglycemia and uncontrolled diabetes mellitus Plan: IV fluids Avoid NSAIDs, contrast hold lasix and spironolactone (5) Cirrhosis of liver Current visit: Yes Status: Chronic History of non-alcoholic liver cirrhosis CT abdomen and pelvis in January 2017 shows stable liver morphology. Plan: continue lactulose hold lasix and spironolactone until MJ improves. Qualifiers: Hepatic cirrhosis type: unspecified hepatic cirrhosis Ascites presence: without ascites Qualified Code(s): K74.60 - Unspecified cirrhosis of liver (6) CHF (congestive heart failure) Current visit: Yes Status: Chronic hx of diastolic CHF Echo october 2016 LVEF 60% with moderate diastolic dysfunction No LE edema or lung crakles plan: hold lisinopril, lasix, spironolactone until MJ resolves. Qualifiers: Congestive heart failure type: diastolic Congestive heart failure chronicity: chronic Qualified Code(s): I50.32 - Chronic diastolic (congestive ) heart failure (7) Hx of drug abuse Current visit: Yes Status: Chronic reviewing EMR records has hx of durg abuse including opiates and amphetamines plan: high risk if given any iv or po narcotics recommend Tylenol with max daily dose of 3000mg. (8) DVT prophylaxis Current visit: Yes Status: Acute Patient is on xeralto at home. Reviewing EMR records, I cannot find indication for being on xeralto. at this point we will continue this medication and this can be clarified in the morning. hgb is stable Internal Medicine - H&P: HPI Chief complaint: uncontrolled hyperglycemia Admitted From: Home Plans for Post Hospital Care: Home History of present illness: Mr. Ramirez is a 66 year old male presents with chief complaint of hyperglycemia. Patient was recently transferred from [place] for viral gastroenteritis. Patient states that after discharge he had resolution of his symptoms of nausea vomiting abdominal pain. After he returned home patient had difficulty controlling his blood sugars. He states his blood sugars were above 500. States he follows a diabetic diet. Patient is on insulin Lantus 160 units subcutaneous twice a day and states he was taking NovoLog 100 units subcutaneous before meals. Even with these interventions his blood sugar remained elevated. Patient reports headaches, blurry vision. Denies polyuria, polydipsia. Patient reports left lower quadrant abdominal pain that is sharp 8 out of 10, without radiation. Reports pain started after returning to home from [place]. Denies nausea, vomiting. Denies decreased appetite. Denies exacerbating or relieving factors. Denies diarrhea, melena, hematochezia. Denies dysuria, hematuria, urinary frequency, urgency. Past Med Surg Social Fam HX - Past Medical History Medical history: arthritis, cirrhosis, CHF, COPD, coronary artery disease, diabetes, GERD, hyperlipidemia, hypertension, liver disease, osteoporosis, TIA Psychiatric history: anxiety, depression, panic disorder, PTSD, previous psychiatric hospitalization - Past Surgical History Surgical History: appendectomy, cholecystectomy, herniorrhaphy, knee replacement , other - Social History Smoking Status: Never smoker Smokeless Tobacco Status: No Alcohol use: none Drug use: none - Family History Mother Adopted: No Living Status: Hx Family Cancer: Yes Father Living Status: Hx Family Cardiac Disorders: No Internal Medicine - H&P: Meds Cholecalciferol (Vitamin D3) [Vitamin D] 2,000 unit PO DAILY 05/13/15 [History] Insulin ASPART [NovoLOG] 48 - 100 unit SQ TIDWM 05/13/15 [History] Aspirin Enteric Coated [Aspirin EC] 81 mg PO DAILY 11/13/15 [History] Atorvastatin [Lipitor] 40 mg PO HS 11/13/15 [History] Insulin Glargine,Hum.rec.anlog [Lantus Solostar] 160 unit SQ BID 11/13/15 [ History] Lactulose 15 gm PO BID 11/13/15 [History] Omeprazole [PriLOSEC] 20 mg PO DAILY 11/13/15 [History] Tamsulosin [Flomax] 0.4 mg PO DAILY 11/13/15 [History] Furosemide [Lasix] 40 mg PO DAILY 05/16/16 [History] Rivaroxaban [Xarelto] 10 mg PO DAILY 05/16/16 [History] risperiDONE [Risperdal] 3 mg PO HS 05/16/16 [History] Atenolol [Tenormin] 50 mg PO DAILY 05/29/16 [History] Ipratropium/Albuterol Neb [Duoneb] 3 ml IH QID 08/10/16 [History] Lisinopril [Zestril] 2.5 mg PO HS #0 09/14/16 [Rx] DiphenhydraMINE [Benadryl] 50 mg PO HS PRN 10/27/16 [History] Sertraline [Zoloft] 100 mg PO DAILY 10/27/16 [History] Spironolactone [Aldactone] 50 mg PO DAILY 10/27/16 [History] Cyprohepatdine [Periactin] 4 mg PO HS 01/26/17 [History] Ibuprofen [Motrin] 600 mg PO Q8HR PRN 01/26/17 [History] Melatonin [Melatin] 9 mg PO HS 01/26/17 [History] Metformin HCl [Glucophage] 1,000 mg PO BID 01/26/17 [History] Buprenorphine HCl/Naloxone HCl [Buprenorphin-Naloxon 8-2 mg Sl] 1 tab SL BID [History] 3 Allergy/AdvReac Type Severity Reaction Status Date / Time Iodinated Contrast- Oral and Allergy Difficulty Verified 01/26/17 08:46 IV Dye Breathing ketorolac [From Toradol] Allergy Nausea Verified 01/26/17 08:46 Penicillins Allergy Rash Verified 01/26/17 08:46 butorphanol [From Stadol] AdvReac Nausea Verified 01/26/17 08:46 celecoxib AdvReac unknown Verified 01/26/17 08:46 gabapentin AdvReac unknown Verified 01/26/17 08:46 mirtazapine AdvReac unknown Verified 01/26/17 08:46 tramadol AdvReac unknown Verified 01/26/17 08:46 vancomycin AdvReac unknown Verified 01/26/17 08:46 All Systems PM: A 10-system review of systems was performed and is negative for pertinent findings except as documented above in the HPI. Review of systems: Constitutional: Denies fever, chills HEENT: Denies , neck pain, sore throat, rhinorrhea. Reports Headache, blurry vision Heart: Denies chest pain palpitations Lungs: Denies shortness of breath cough Abdomen: Reports abdominal pain. Denies nausea, vomiting, diarrhea Back: Denies back pain Kidney: Denies dysuria, hematuria Skin: warm and dry Extremities: Denies swelling, pain Neuro: Denies numbness, and tingling - Constitutional Vitals: Temp Pulse Resp BP Pulse Ox 0 F L 98 18 110/53 97 01/30/17 00:39 01/29/17 21:47 01/30/17 00:39 01/30/17 00:39 01/29/17 21:47 - Other Additional findings: General: Pleasant male without distress HEENT: Head atraumatic, normocephalic, EOMI, PERRLA, neck nontender to palpation , absent lymphadenopathy, Moist Mucous Membranes, Heart: Regular rate and rhythm with no murmur Lungs: Clear to auscultation bilaterally Abdomen: Soft nontender, nondistended, positive bowel sounds, absent organomegaly, absent guarding, absent rigidity Skin: warm and dry Extremities: Absent pedal edema, Neuro: Cranial nerves II through XII intact, UE and LE sensation equal bilaterally, UE and LEstrength 5/5, alert oriented 3, Vascular: Pedal and radial pulses 2 out of 4 Internal Med - H&P Results - Labs CBC & Chem 7: 01/29/17 22:15 01/29/17 22:15 <Shivani Metcalflaurel Mejia - Last Filed: 01/30/17 02:02> Date of Encounter: 01/30/17 Internal Medicine - H&P: HPI History of present illness: Mr. Ramirez is a 66 year old male All Systems PM: A 10-system review of systems was performed and is negative for pertinent findings except as documented above in the HPI. - Constitutional Vitals: Temp Pulse Resp BP Pulse Ox 98.6 F 94 18 115/65 94 01/30/17 01:27 01/30/17 01:27 01/30/17 01:27 01/30/17 01:27 01/30/17 01:27 Internal Med - H&P Results - Labs CBC & Chem 7: 01/29/17 22:15 01/29/17 22:15 - Attending Attestation I examined this patient and my medical decision-making was reviewed with the Resident Physician. I agree with the documented findings, disposition and treatment plan as described except to the extent set forth below. 66-year-old male who presents with poorly controlled diabetes. He does in a usp and has his insulin dose drawn up for him. He mentions that he takes a sliding scale 3 times a day of low novoLog, Lantus 60 units twice a day. He follows with an meat grinder at the [facility] (unable to recall name of meat grinder). Today he checked his blood sugar with high reading of 534. On review of systems he noted bilateral anterior, abdominal discomfort , feels distended but is moving bowels. ROS 14 point review of systems reviewed as best as possible given presentation. Pertinent positive or negative as per HPI or otherwise reviewed as negative General - AAO x 3, his body habitus Psych - Appropriate affect/speech. No agitation Eyes - LEIDA. Eye lids intact. No scleral icterus Heart - Sinus. RRR. S1 and S2 present. No added HS/murmurs appreciated. No elevated JVD appreciated. No calf swellings/erythema Lung - Adequate air entry b/l, No crackes/wheezes appreciated GI - Soft, no guarding or rigidity. No hepatosplenomegaly/ascites. BS+ - No CVA/suprapubic tenderness or palpable bladder distension Skin - Intact. No rash/petechiae/ecchymosis. Warm extremities MSK - Joints with normal ROM. No joint swellings Assessment and plan Poorly controlled DMII - optimize insulin - trial U500 for more reliable absorption - monitor CBG with adjustment - follow up outpatient endocrinology Lactate acidosis - IVF - trend lactic acid Abdo discomfort - check CXR - monitor for now, management pending further hospital course
[2017-01-30] MEDS ORDERED: Insulin DETEMIR 100 UNIT/ML X5UNITS SQ SCH ×2 (01:30→21:00)
[2017-01-30] MEDS: Insulin DETEMIR 100 UNIT/ML X5UNITS SQ SCH ×4 (02:07→21:09)
[2017-01-30] MEDS: Ipratropium/Albuterol Neb 3 ML IH SCH ×4 (04:25→22:47)
[2017-01-30 05:20] LABS: Basophils % 0.5 %; Eosinophils % 4.6 %; Hemoglobin 9.8 g/dL (12.9-16.9); Red Cell Distribution Width 14.9 % (11.5-14.5)
[2017-01-30 05:22] LABS: Eosinophils # 0.2 K/mcL (0.0-0.6); Hematocrit 28.6 % (37.5-50.1); Immature Granulocytes % 0.5 % (0-4); Immature Platelets 6.1 % (1.1-6.1); Lymphocytes # 1.3 K/mcL (0.6-4.6); Lymphocytes % 30.7 %; Mean Corpuscular HGB Conc 34.3 g/dL (31.6-35.5); Mean Corpuscular Hemoglobin 29.5 pg (28.0-33.3); Mean Corpuscular Volume 86.1 fL (83.0-100.0); Mean Platelet Volume 11.4 fL (9.4-12.4); Monocytes # 0.4 K/mcL (0.0-1.3); Monocytes % 10.1 %; Red Blood Count 3.32 M/mcL (4.19-5.50); Segmented Neutrophils % 53.6 %
[2017-01-30 05:32] LABS: Neutrophils # 2.3 K/mcL (1.6-8.9); Platelet Count 70 K/mcL (140-400)
[2017-01-30 05:36] LABS: BUN/Creatinine Ratio 15 (6-26); Blood Urea Nitrogen 21 mg/dL (8-26); Calcium 8.6 mg/dL (8.6-10.8); Carbon Dioxide 21 mEq/L (19-29); Chloride 107 mEq/L (98-109); Glucose 231 mg/dL (70-99); Magnesium 1.2 mg/dL (1.6-2.6); Osmolality,Calculated 288 (280-300); Potassium 4.1 mEq/L (3.5-4.5); Sodium 134 mEq/L (136-145); eGFR For African Americans > 60 (> 60); eGFR For Non-African Americans 51 (> 60)
[2017-01-30] MEDS: Pantoprazole 40 MG VIAL IVP SCH (06:16)
[2017-01-30] MEDS: 0.9 % Sodium Chloride 1,000 ML IVC SCH ×2 (06:18→16:43)
[2017-01-30] MEDS ORDERED: Magnesium Sulfate 2 GM in D5% in Water 100 ML IVPB ONE ×2 (06:22→11:17)
--- NOTE | 2017-01-30 07:29 | Event Note ---
<Boby Benavides - Last Filed: 01/30/17 11:07> Date of Encounter: 01/30/17 Time of Encounter: 10:45 Patient reports that his sugars were uncontrolled back at [facility]. Patient reports he was confused. Patient was eager to leave last admission and feels he may have demanded to leave too soon. He reports he is still nauseated and still has abdominal pain and that his abdomen feels distended. On exam heart is RRR, no m/g/r, lungs are CTAB no w/r/r. Abd: soft, +BS, No tenderness on pusing with stethescope while listening, but reports some tenderness to palpation in B/L lower quadrants when asked. Pt has been given 2mg Morphine Q 12hrs to manage his pain, he is requesting more, but due to his hx of Opioid abuse we are limiting his amount of opioid medications. He reports he stopped suboxone on his on a while ago and has been clean since then. Continue tylenol. Allergic to other NSAIDS (toradol, celecoxib) and Tramadol but appears to take ibuprofen. Consider trying once MJ resolves. Lactic acidosis has resolved with improvement of his sugars and IV hydration. Patient's Magnesium is low. Will replete. Continue to monitor sugars. <Piero Macias - Last Filed: 01/30/17 14:46> Date of Encounter: 01/30/17 I examined this patient and my medical decision-making was reviewed with the Resident Physician. I agree with the documented findings, disposition and treatment plan as described except to the extent set forth below.
[2017-01-30] MEDS ORDERED: Insulin LISPRO 300 UNITS/3 ML VIAL SQ SCH (08:00)
[2017-01-30] MEDS: Lactulose Oral Soln 20 GM/30 ML UDC PO SCH ×3 (08:35→21:09)
[2017-01-30] MEDS: *HR* Rivaroxaban 10 MG TABLET PO SCH (08:36)
[2017-01-30] MEDS: Aspirin Enteric Coated 81 MG Tablet PO SCH (08:36)
[2017-01-30] MEDS: Insulin LISPRO 300 UNITS/3 ML VIAL SQ SCH ×4 (08:37→21:12)
[2017-01-30] MEDS: *HR* Insulin Regular U-500 500 UNIT/ML SQ SCH ×4 (08:37→17:38)
[2017-01-30] MEDS ORDERED: Furosemide 40 MG TABLET PO SCH (09:00)
[2017-01-30] MEDS: *HR* Morphine 2 MG/ML SYRINGE IVP PRN ×2 (10:32→21:17)
[2017-01-30] MEDS: RisperiDAL 3 MG TABLET PO SCH (21:10)
[2017-01-30] MEDS: Melatonin 3 MG TABLET PO SCH (21:10)
[2017-01-30] MEDS: *HR* Promethazine 25 MG/ML VIAL IVP PRN (23:33)
[2017-01-31] MEDS: Ipratropium/Albuterol Neb 3 ML IH SCH ×4 (05:01→23:18)
[2017-01-31] MEDS: Pantoprazole 40 MG VIAL IVP SCH (05:17)
[2017-01-31] MEDS: 0.9 % Sodium Chloride 1,000 ML IVC SCH ×2 (05:18→17:18)
[2017-01-31] MEDS ORDERED: *HR* OxyCODONE/APAP 7.5/325 TABLET PO ONE (06:20)
--- NOTE | 2017-01-31 06:36 | Event Note ---
Date of Encounter: 01/31/17 Time of Encounter: 06:34 Throughout the night the patient had been complaining of abdominal pain. I have evaluated him at the bedside, currently reports severe lower abdominal pain , on exam he is in no acute distress, appears comfortable, heart is regular, not tachycardic. Abdomen soft nontender to palpation. Assessment and plan: The patient is asking to receive his dose of IV morphine earlier this morning for his abdominal pain. Based on the patient's request and physical examination as well as reviewing his laboratory data and imaging studies I suspect drug-seeking behavior and therefore I will not order any additional IV opiates. I will give 1 dose of oral Percocet.
[2017-01-31] MEDS: Insulin LISPRO 300 UNITS/3 ML VIAL SQ SCH ×4 (08:39→21:48)
--- NOTE | 2017-01-31 08:41 | Internal Med Progress Note ---
<ShobhaLacho machado Arleth - Last Filed: 01/31/17 11:25> Date of Encounter: 01/31/17 Time of Encounter: 08:38 - Assessment and plan (1) Hyperglycemia due to type 1 diabetes mellitus Current Visit: Yes Status: Acute Assessment and plan: Blood sugar elevated on presentation at 411. Given recent A1c of 8.9 patient's blood sugar is not completely well controlled at home. Continue with Levemir insulin with U500 for mealtime coverage. The U500 is new for the patient and this seems to be controlling his Mealtime blood sugars appropriately as his morning sugar was 136 this morning. Continue current regimen and continue to monitor. Patient is significantly hyperglycemic during the day he may benefit from adding Levemir in the morning. (2) Lactic acidosis Current Visit: Yes Status: Acute Assessment and plan: Lactic acid 4.1 on presentation. Quickly decreased to 1.8. Likely related to severe dehydration in the setting of hyperglycemia. (3) MJ (acute kidney injury) Current Visit: Yes Status: Acute Assessment and plan: On CKD stage III. Likely related to dehydration. Improving. Continue fluid hydration. (4) Gastroenteritis Current Visit: No Status: Acute Assessment and plan: Improving. Patient was recently admitted for viral gastroenteritis. Still complaining of mild abdominal pain and occasional nausea but denies vomiting or diarrhea. Continue supportive care. - Subjective Interval history: Patient seen and examined at bedside. Patient states that he feels okay this morning. He reports mild abdominal pain all the way across mid abdomen. He reports mild nausea but denies vomiting, change in stool habits. He denies fever, chills. - Constitutional Vitals: Temp Pulse Resp BP Pulse Ox 98 F 91 16 143/78 96 01/31/17 07:57 01/31/17 07:57 01/31/17 07:57 01/31/17 07:57 01/31/17 07:57 General appearance: Present: A&O X 3, pleasant, no acute distress - Respiratory Respiratory exam: Present: CTAB. Absent: rales, rhonchi, wheezes - Cardiovascular Cardiovascular exam: Present: RRR. Absent: gallop, rubs, systolic murmur - GI/Abdominal GI/Abdominal exam: Present: normal bowel sounds, soft. Absent: distended, tenderness - Extremities Exam Extremities exam: Present: warm. Absent: pedal edema, tenderness - Neurological Exam Neurological exam: Present: alert, CN II-XII intact, oriented X3, no focal deficits Internal Medicine: Result - Labs CBC & Chem 7: 01/31/17 09:08 01/31/17 09:08 - Impressions Impressions Chest/Abdomen X-ray 01/30/17 01:45 IMPRESSION: No air-filled dilated loops of bowel. Mild prominence of interstitial markings in the lung bases which may be related to mild edema. D/ / Alba Conn MD / Alba Conn MD Interpreting Provider: Alba Conn MD Consult Discharge Plan - Plan [facility]errals: [facility] [Primary Care Provider[facility] - <Piero Macias P - Last Filed: 01/31/17 17:12> Date of Encounter: 01/31/17 - Constitutional Vitals: Temp Pulse Resp BP Pulse Ox 98.3 F 84 16 143/81 96 01/31/17 15:47 01/31/17 15:47 01/31/17 15:47 01/31/17 15:47 01/31/17 15:47 Internal Medicine: Result - Labs CBC & Chem 7: 01/31/17 09:08 01/31/17 09:08 Labs: Short CBC 01/31/17 Range/Units 09:08 WBC 3.0 L (4.3-11.1) K/mcL Hgb 9.6 L (12.9-16.9) g/dL Hct 28.9 L (37.5-50.1) % Plt Count 59 L (140-400) K/mcL Neutrophils # 1.9 (1.6-8.9) K/mcL BMP 01/31/17 09:08 Sodium 131 L Potassium 5.0 H Chloride 105 Carbon Dioxide 19 BUN 16 Creatinine 1.09 Glucose 221 H Calcium 9.1 - Attending Attestation I examined this patient and my medical decision-making was reviewed with the Resident Physician. I agree with the documented findings, disposition and treatment plan as described except to the extent set forth below.
[2017-01-31] MEDS: *HR* Rivaroxaban 10 MG TABLET PO SCH (08:46)
[2017-01-31] MEDS: Lactulose Oral Soln 20 GM/30 ML UDC PO SCH ×2 (08:46→21:48)
[2017-01-31] MEDS: *HR* Insulin Regular U-500 500 UNIT/ML SQ SCH ×3 (08:46→17:14)
[2017-01-31] MEDS: Aspirin Enteric Coated 81 MG Tablet PO SCH (08:46)
[2017-01-31 09:19] LABS: Immature Granulocytes % 0.3 % (0-4); Mean Corpuscular HGB Conc 33.2 g/dL (31.6-35.5); Mean Corpuscular Hemoglobin 29.6 pg (28.0-33.3)
[2017-01-31 09:21] LABS: Basophils % 0.3 %; Eosinophils # 0.1 K/mcL (0.0-0.6); Eosinophils % 3.7 %; Hematocrit 28.9 % (37.5-50.1); Hemoglobin 9.6 g/dL (12.9-16.9); Lymphocytes # 0.7 K/mcL (0.6-4.6); Lymphocytes % 22.7 %; Mean Corpuscular Volume 89.2 fL (83.0-100.0); Mean Platelet Volume 11.4 fL (9.4-12.4); Monocytes # 0.3 K/mcL (0.0-1.3); Neutrophils # 1.9 K/mcL (1.6-8.9); Red Blood Count 3.24 M/mcL (4.19-5.50); Red Cell Distribution Width 15.1 % (11.5-14.5)
[2017-01-31 09:31] LABS: BUN/Creatinine Ratio 15 (6-26); Blood Urea Nitrogen 16 mg/dL (8-26); Calcium 9.1 mg/dL (8.6-10.8); Carbon Dioxide 19 mEq/L (19-29); Chloride 105 mEq/L (98-109); Glucose 221 mg/dL (70-99); Magnesium 1.3 mg/dL (1.6-2.6); Osmolality,Calculated 280 (280-300); Sodium 131 mEq/L (136-145); eGFR For African Americans > 60 (> 60); eGFR For Non-African Americans > 60 (> 60)
[2017-01-31 09:42] LABS: Platelet Count 59 K/mcL (140-400)
[2017-01-31 09:44] LABS: Anisocytosis 1+ (Not Present); Platelet Estimate Decreased (Normal)
[2017-01-31] MEDS: *HR* Morphine 2 MG/ML SYRINGE IVP PRN ×2 (10:03→19:15)
[2017-01-31] MEDS: Melatonin 3 MG TABLET PO SCH (21:47)
[2017-01-31] MEDS: Insulin DETEMIR 100 UNIT/ML X5UNITS SQ SCH ×2 (21:47)
[2017-01-31] MEDS: RisperiDAL 3 MG TABLET PO SCH (21:53)
[2017-01-31] MEDS: *HR* Promethazine 25 MG/ML VIAL IVP PRN (22:45)
[2017-02-01] MEDS: *HR* Morphine 2 MG/ML SYRINGE IVP PRN ×2 (01:38→08:16)
[2017-02-01] MEDS: Ipratropium/Albuterol Neb 3 ML IH SCH ×3 (05:07→10:20)
[2017-02-01] MEDS: Pantoprazole 40 MG VIAL IVP SCH (05:20)
[2017-02-01 05:22] LABS: Basophils # 0.1 K/mcL (0.0-0.2); Basophils % 1.5 %; Eosinophils # 0.3 K/mcL (0.0-0.6); Eosinophils % 7.6 %; Hematocrit 30.2 % (37.5-50.1); Hemoglobin 10.3 g/dL (12.9-16.9); Immature Granulocytes % 0.3 % (0-4); Lymphocytes # 1.2 K/mcL (0.6-4.6); Mean Corpuscular HGB Conc 34.1 g/dL (31.6-35.5); Mean Corpuscular Hemoglobin 29.7 pg (28.0-33.3); Mean Platelet Volume 10.5 fL (9.4-12.4); Monocytes # 0.4 K/mcL (0.0-1.3); Monocytes % 12.1 %; Neutrophils # 1.4 K/mcL (1.6-8.9); Red Blood Count 3.47 M/mcL (4.19-5.50); Red Cell Distribution Width 15.1 % (11.5-14.5); Segmented Neutrophils % 42.5 %
[2017-02-01 05:23] LABS: Platelet Count 61 K/mcL (140-400)
[2017-02-01] MEDS: 0.9 % Sodium Chloride 1,000 ML IVC SCH (05:25)
[2017-02-01 05:40] LABS: BUN/Creatinine Ratio 18 (6-26); Blood Urea Nitrogen 18 mg/dL (8-26); Calcium 9.7 mg/dL (8.6-10.8); Carbon Dioxide 23 mEq/L (19-29); Chloride 109 mEq/L (98-109); Glucose 115 mg/dL (70-99); Magnesium 1.3 mg/dL (1.6-2.6); Osmolality,Calculated 287 (280-300); Potassium 4.3 mEq/L (3.5-4.5); Sodium 137 mEq/L (136-145); eGFR For African Americans > 60 (> 60); eGFR For Non-African Americans > 60 (> 60)
--- NOTE | 2017-02-01 07:55 | Internal Med Progress Note ---
Date of Encounter: 02/01/17 Time of Encounter: 07:45 - Constitutional Vitals: Temp Pulse Resp BP Pulse Ox 98.3 F 86 20 121/73 95 02/01/17 06:29 02/01/17 06:29 02/01/17 06:29 02/01/17 06:29 02/01/17 06:29 General appearance: Present: A&O X 3, pleasant, no acute distress Internal Medicine: Result - Labs CBC & Chem 7: 02/01/17 05:00 02/01/17 05:00 Labs: Short CBC 01/31/17 02/01/17 Range/Units 09:08 05:00 WBC 3.0 L 3.3 L (4.3-11.1) K/mcL Hgb 9.6 L 10.3 L (12.9-16.9) g/dL Hct 28.9 L 30.2 L (37.5-50.1) % Plt Count 59 L 61 L (140-400) K/mcL Neutrophils # 1.9 1.4 L (1.6-8.9) K/mcL BMP 01/31/17 02/01/17 09:08 05:00 Sodium 131 L 137 Potassium 5.0 H 4.3 Chloride 105 109 Carbon Dioxide 19 23 BUN 16 18 Creatinine 1.09 1.00 Glucose 221 H 115 H Calcium 9.1 9.7 Consult Discharge Plan - Plan Referrals: [facility] [Primary Care Provider] -
[2017-02-01] MEDS: Lactulose Oral Soln 20 GM/30 ML UDC PO SCH (08:15)
[2017-02-01] MEDS: Insulin LISPRO 300 UNITS/3 ML VIAL SQ SCH ×2 (08:16→11:51)
[2017-02-01] MEDS: *HR* Insulin Regular U-500 500 UNIT/ML SQ SCH ×2 (08:20→11:50)
[2017-02-01] MEDS: Aspirin Enteric Coated 81 MG Tablet PO SCH (08:22)
[2017-02-01] MEDS: *HR* Rivaroxaban 10 MG TABLET PO SCH (08:22)
[2017-02-01] MEDS ORDERED: Magnesium Oxide 400 MG TABLET PO SCH (09:00)
--- NOTE | 2017-02-01 09:26 | Discharge Summary ---
<Boby Benavides - Last Filed: 02/01/17 11:04> Date of Encounter: 02/01/17 Time of Encounter: 09:22 - Discharge Diagnosis (1) Hyperglycemia due to type 1 diabetes mellitus Priority: Primary Status: Acute (2) Hx of drug abuse Priority: Secondary Status: Chronic (3) Acute kidney injury Priority: Secondary Status: Acute (4) Abdominal pain Priority: Secondary Status: Acute Qualifiers: Abdominal location: left lower quadrant Qualified Code(s): R10.32 - Left lower quadrant pain (5) CHF (congestive heart failure) Priority: Secondary Status: Chronic Qualifiers: Congestive heart failure type: diastolic Congestive heart failure chronicity: chronic Qualified Code(s): I50.32 - Chronic diastolic (congestive ) heart failure (6) Cirrhosis of liver Priority: Secondary Status: Chronic Qualifiers: Hepatic cirrhosis type: unspecified hepatic cirrhosis Ascites presence: without ascites Qualified Code(s): K74.60 - Unspecified cirrhosis of liver (7) Gastroenteritis Priority: Secondary Status: Acute - Discharge Medications Home Medications: Cholecalciferol (Vitamin D3) [Vitamin D] 2,000 unit PO DAILY 05/13/15 [History] Insulin ASPART [NovoLOG] 48 - 100 unit SQ TIDWM 05/13/15 [History] Aspirin Enteric Coated [Aspirin EC] 81 mg PO DAILY 11/13/15 [History] Atorvastatin [Lipitor] 40 mg PO HS 11/13/15 [History] Insulin Glargine,Hum.rec.anlog [Lantus Solostar] 160 unit SQ BID 11/13/15 [ History] Lactulose 15 gm PO BID 11/13/15 [History] Omeprazole [PriLOSEC] 20 mg PO DAILY 11/13/15 [History] Tamsulosin [Flomax] 0.4 mg PO DAILY 11/13/15 [History] Furosemide [Lasix] 40 mg PO DAILY 05/16/16 [History] Rivaroxaban [Xarelto] 10 mg PO DAILY 05/16/16 [History] risperiDONE [Risperdal] 3 mg PO HS 05/16/16 [History] Atenolol [Tenormin] 50 mg PO DAILY 05/29/16 [History] Ipratropium/Albuterol Neb [Duoneb] 3 ml IH QID 08/10/16 [History] Lisinopril [Zestril] 2.5 mg PO HS #0 09/14/16 [Rx] DiphenhydraMINE [Benadryl] 50 mg PO HS PRN 10/27/16 [History] Sertraline [Zoloft] 100 mg PO DAILY 10/27/16 [History] Spironolactone [Aldactone] 50 mg PO DAILY 10/27/16 [History] Cyprohepatdine [Periactin] 4 mg PO HS 01/26/17 [History] Ibuprofen [Motrin] 600 mg PO Q8HR PRN 01/26/17 [History] Melatonin [Melatin] 9 mg PO HS 01/26/17 [History] Metformin HCl [Glucophage] 1,000 mg PO BID 01/26/17 [History] Buprenorphine HCl/Naloxone HCl [Buprenorphin-Naloxon 8-2 mg Sl] 1 tab SL BID [History] Magnesium Oxide [Mag-Ox] 400 mg PO DAILY #30 tab 02/01/17 [Rx] Allergies/Adverse Reactions: 3 Allergy/AdvReac Type Severity Reaction Status Date / Time Iodinated Contrast- Oral and Allergy Difficulty Verified 01/26/17 08:46 IV Dye Breathing ketorolac [From Toradol] Allergy Nausea Verified 01/26/17 08:46 Penicillins Allergy Rash Verified 01/26/17 08:46 butorphanol [From Stadol] AdvReac Nausea Verified 01/26/17 08:46 celecoxib AdvReac unknown Verified 01/26/17 08:46 gabapentin AdvReac unknown Verified 01/26/17 08:46 mirtazapine AdvReac unknown Verified 01/26/17 08:46 tramadol AdvReac unknown Verified 01/26/17 08:46 vancomycin AdvReac unknown Verified 01/26/17 08:46 Procedures/tests Complete & Pending: CXR/Abd XR: "FINDINGS: Cardiac silhouette is enlarged. No pneumothorax. No pleural effusion. Mild prominence of interstitial markings in the lung bases. No findings to suggest free air. No air-filled dilated loops of bowel. Surgical clips right upper quadrant. XR/XR acute abdominal series IMPRESSION: No air-filled dilated loops of bowel. Mild prominence of interstitial markings in the lung bases which may be related to mild edema." Date of admission: 01/30/17 00:07 Primary care physician: PCP EUGENIO Consults: 01/30/17 00:39 Consult to Critical Care Transport Nurse [CONS] Routine Comment: Reason for Consult: uncontrolled diabetes 01/30/17 01:15 Consult to Meat And Poultry Inspector [CONS] Routine Reason for SW Consult: From [facility]. EUGENIO Avalos Team. Frequent admission, just discharged three days ago from [facility]. Discharging clinician: Boby Benavides Anticipated date of discharge: 02/01/17 - Patient Status Disposition: Home, Self-Care Condition: Good Functional capacity at discharge: independent ambulation Overall status at discharge: patient is progressing back to baseline - Discharge Instructions Instructions: Magnesium Oxide (By mouth), Diabetes Mellitus Type 2 in Adults ( DC) Follow Up With: EUGENIO,PCP [Primary Care Provider] - 02/02/17 9:15 am (Please follow up as schedule...) Additional Instructions: Please follow up with your primary care provider within 1 week of discharge. Please follow up with any specialist appointments you have scheduled. Please restart all your home medications and take them as directed. You magnesium was a little low. Please take the prescribed Magnesium-Oxide pill once a day until you see your primary care provider. Then follow their directions. Please return to the hospital if you experience any new or worsening symptoms. - Diet and Activity Activity: resume usual activities as tolerated Diet: diabetic diet Hospital course: Mr. Ramirez is a 66 year old male - Time Spent with Patient Total time spent providing and/or coordinating discharge services: - Constitutional Vitals: Temp Pulse Resp BP Pulse Ox 98.3 F 86 20 121/73 95 02/01/17 06:29 02/01/17 06:29 02/01/17 06:29 02/01/17 06:29 02/01/17 06:29 General appearance: Present: A&O X 3, pleasant, no acute distress - Head Head exam: Present: atraumatic, normocephalic - Eye Eye exam: Present: PERRL, sclera anicteric - ENT ENT exam: Present: mucous membranes moist - Neck Neck exam general surgery: Present: supple, trachea midline - Respiratory Respiratory exam: Present: CTAB. Absent: rales, rhonchi, wheezes - Cardiovascular Cardiovascular exam: Present: RRR, +S1, +S2. Absent: diastolic murmur, gallop, rubs, systolic murmur - GI/Abdominal GI/Abdominal exam: Present: normal bowel sounds, soft, tenderness (RLQ) - Extremities Exam Extremities exam: Absent: calf tenderness, cyanotic, pedal edema - Neurological Exam Neurological exam: Present: alert, oriented X3. Absent: facial droop, speech deficit - Psychiatric Psychiatric exam: Present: normal affect, normal mood - Skin Skin exam: Present: dry, intact, warm <Colleen,Piero P - Last Filed: 02/01/17 18:35> Date of Encounter: 02/01/17 Date of admission: 02/01/17 13:03 Primary care physician: PCP ND Hospital course: Mr. Ramirez is a 66 year old male - Time Spent with Patient Total time spent providing and/or coordinating discharge services: - Constitutional Vitals: Temp Pulse Resp BP Pulse Ox 98.2 F 88 18 131/70 96 02/01/17 10:41 02/01/17 10:41 02/01/17 10:41 02/01/17 10:41 02/01/17 10:41 - Attending Attestation I examined this patient and my medical decision-making was reviewed with the Resident Physician. I agree with the documented findings, disposition and treatment plan as described except to the extent set forth below.
[2017-02-01 10:45] VITALS: BP 131/70
== END 2017-02-01 14:40 | disposition home or self-care (01) | DRG 638 ==
LOC: 2ANU 21:45 → EMEROO 21:45 → 2ANU 01-30 00:48
PROVIDERS: ADMIT Internal Medicine; ATTEND Internal Medicine

== ENCOUNTER 2017-03-01 18:14 | Inpatient (IN) ==
[2017-03-01] MEDS ORDERED: Ondansetron 4 MG/2 ML VIAL IVP ONE (21:48)
[2017-03-01] MEDS ORDERED: 0.9 % Sodium Chloride 1,000 ML IVC ONE ×2 (21:48→23:35)
[2017-03-01] MEDS ORDERED: *HR* HYDROmorphone (PF) 1 MG/ML SYRINGE IVP ONE (21:49)
--- NOTE | 2017-03-01 22:03 | Emergency Department Note ---
Disposition Clinical Impression: Hematochezia, Hyperglycemia Abdominal pain Qualifiers: Abdominal location: generalized Qualified Code(s): R10.84 - Generalized abdominal pain Disposition: Admitted As Inpatient Condition: Good GI Bleed HPI - General Chief complaint: ED GI Bleed Stated complaint: hyperglycemia Time Seen by Provider: 03/01/17 21:26 Source: patient Mode of arrival: EMS Limitations: no limitations Nursing Notes Reviewed: Yes Vital Signs Reviewed: Yes - History of Present Illness HPI Narrative: 67-year-old male history of cirrhosis, chest, COPD on anticoagulation who [facility] due to hyperglycemia and rectal bleeding. Patient states that he has been admitted there since the third of this month for his breathing and PTSD. He states that today he went to the bathroom and noticed some bright red blood dripping whenever he was done. The [facility] elected to have the patient transferred here for evaluation. He reports he is having right -sided abdominal pain and has a history of cirrhosis. States he has had his gallbladder and appendix out. Reports normal bowel movements. He states that he has had hemorrhoids before. Denies any hematuria, hemoptysis. No other complaints. 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 Denies: nausea, vomiting Treatments Prior to Arrival: none - Related Data Home Medications Medication Instructions Recorded Confirmed Cholecalciferol (Vitamin D3) 2,000 unit PO DAILY 05/13/15 03/02/17 [Vitamin D] Insulin ASPART [NovoLOG] 25 unit SQ TIDWM 05/13/15 03/02/17 Aspirin Enteric Coated [Aspirin EC] 81 mg PO DAILY 11/13/15 03/02/17 Atorvastatin [Lipitor] 40 mg PO HS 11/13/15 03/02/17 Insulin Glargine,Hum.rec.anlog 160 unit SQ BID 11/13/15 03/02/17 [Lantus Solostar] Lactulose 15 gm PO BID 11/13/15 03/02/17 Omeprazole [PriLOSEC] 20 mg PO DAILY 11/13/15 03/02/17 Tamsulosin [Flomax] 0.4 mg PO DAILY 11/13/15 03/02/17 Furosemide [Lasix] 40 mg PO DAILY 05/16/16 03/02/17 Rivaroxaban [Xarelto] 10 mg PO DAILY 05/16/16 03/02/17 risperiDONE [Risperdal] 3 mg PO HS 05/16/16 03/02/17 Atenolol [Tenormin] 50 mg PO DAILY 05/29/16 03/02/17 Ipratropium/Albuterol Neb [Duoneb] 3 ml IH QID 08/10/16 03/02/17 Sertraline [Zoloft] 100 mg PO HS 10/27/16 03/02/17 Spironolactone [Aldactone] 50 mg PO DAILY 10/27/16 03/02/17 Cyprohepatdine [Periactin] 4 mg PO HS 01/26/17 03/02/17 Ibuprofen [Motrin] 600 mg PO Q8HR PRN 01/26/17 03/02/17 Melatonin [Melatin] 9 mg PO HS 01/26/17 03/02/17 Metformin HCl [Glucophage] 1,000 mg PO BID 01/26/17 03/02/17 Buprenorphine HCl/Naloxone HCl 1 tab SL BID 01/27/17 03/02/17 [Buprenorphin-Naloxon 8-2 mg Sl] Lisinopril 2.5 mg PO HS 02/03/17 03/02/17 Melatonin [Melatin] 9 mg PO HS 02/03/17 03/02/17 Previous Rx's Medication Instructions Recorded Magnesium Oxide [Mag-Ox] 400 mg PO DAILY #30 tab 02/01/17 Allergies Allergy/AdvReac Type Severity Reaction Status Date / Time Iodinated Contrast- Oral and Allergy Difficulty Verified 03/01/17 19:16 IV Dye Breathing ketorolac [From Toradol] Allergy Nausea Verified 03/01/17 19:16 Penicillins Allergy Rash Verified 03/01/17 19:16 butorphanol [From Stadol] AdvReac Nausea Verified 03/01/17 19:16 celecoxib AdvReac unknown Verified 03/01/17 19:16 diphenhydramine AdvReac See Verified 03/01/17 19:16 [From Benadryl] Comments gabapentin AdvReac unknown Verified 03/01/17 19:16 Methadone AdvReac See Verified 03/01/17 19:16 Comments mirtazapine AdvReac unknown Verified 03/01/17 19:16 morphine AdvReac See Verified 03/01/17 19:16 Comments tramadol AdvReac unknown Verified 02/03/17 21:00 vancomycin AdvReac unknown Verified 02/03/17 21:00 All systems ED: reviewed and negative except as stated. Cardiovascular: Denies: chest pain Respiratory: Denies: dyspnea Gastrointestinal: Reports: abdominal pain, hematochezia. Denies: nausea, vomiting, diarrhea, hematemesis, melena Hematological/Lymphatic: Denies: easy bleeding, easy bruising Past Medical History - Past Medical History Attestation: Yes The following information was validated with the patient. Source: patient Medical history: Reports: arthritis, cirrhosis, CHF, COPD, coronary artery disease, diabetes, GERD, hyperlipidemia, hypertension, liver disease, osteoporosis, TIA Surgical history: Reports: appendectomy, cholecystectomy, herniorrhaphy, knee replacement, other Psychiatric history: Reports: anxiety, depression, panic disorder, PTSD, previous psychiatric hospitalization - Social History Smoking Status: Never smoker Smokeless Tobacco Status: No Alcohol use: Reports: none Drug use: Reports: none Physical Exam - General Limitations: no limitations General appearance: alert, in no apparent distress - Head Head exam: atraumatic, normocephalic, normal inspection - Eye Eye exam: Present: normal appearance, EOMI - ENT ENT exam: normal exam - Neck Neck exam: Present: normal inspection, full ROM - Chest Chest inspection: Present: normal inspection, symmetric chest wall rise - Respiratory Respiratory exam: Present: normal lung sounds bilaterally - Cardiovascular Cardiovascular exam: Present: regular rate, normal rhythm, normal heart sounds - Abdominal Exam Abdominal exam: Present: soft, tenderness (Mild tenderness to palpation in the right upper and lower quadrants. No distention guarding or rigidity.). Absent : distention, guarding, rigidity - Rectal Exam Rectal exam: Present: normal inspection, normal rectal tone, heme (+) stool, hemorrhoids - Extremities Exam Extremities exam: Present: normal inspection, full ROM - Expanded Upper Extremity Exam Shoulder exam: Present: normal inspection, full ROM Arm exam: Present: normal inspection, full ROM Elbow exam: Present: normal inspection, full ROM Forearm/Wrist exam: Present: normal inspection, full ROM Hand exam: Present: normal inspection, full ROM - Expanded Lower Extremity Exam Hip/Pelvis exam: Present: normal inspection, full ROM Upper leg exam: Present: normal inspection, full ROM Knee exam: Present: normal inspection, full ROM Lower leg exam: Present: normal inspection, full ROM Ankle exam: Present: normal inspection, full ROM Foot/toe exam: Present: normal inspection, full ROM Neurovascular/Tendon exam: Absent: motor deficit, sensory deficit - Neurological Exam Neurological exam: Present: alert, other (GCS 15. Nonfocal neurologic exam.) - Psychiatric Psychiatric exam: Present: normal affect, normal mood - Skin Skin exam: Present: warm, dry, intact, normal color Course Course Narrative: Patient seen and examined. He has hemorrhoids here on exam with grossly bloody exam. Nonsurgical abdomen on exam. We will get a CT scan of the abdomen and pelvis as well as labs to evaluate for DKA as he is hyperglycemic here. Patient requests something for nausea and pain. - Reevaluation(s) Reevaluation #1: Discussed results of imaging and lab work with the patient. He requests something else for pain. We will provide this and admitted to the hospital. Vital Signs Temperature 97.8 F 03/01/17 19:13 Pulse Rate 86 03/01/17 19:13 Respiratory Rate 18 03/01/17 19:13 Blood Pressure 127/69 03/01/17 19:13 O2 Sat by Pulse Oximetry 96 03/01/17 19:13 Temperature 98.3 F 03/02/17 04:50 Pulse Rate 80 03/02/17 04:50 Respiratory Rate 17 03/02/17 04:50 Blood Pressure 115/73 03/02/17 04:50 O2 Sat by Pulse Oximetry 93 03/02/17 04:50 Oxygen Delivery Oxygen Delivery Room Air GI Bleed - [facility] Narrative Medical decision making narrative: 67-year-old male presents to the ER due to rectal bleeding and hyperglycemia[facility] and [facility]. Reports a bloody bowel movement today. He is on anticoagulation but is unsure why and it is not listed in his medical records. No bleeding from any other source. CT scan shows no acute findings. He is chronically anemic appears stable from his prior. Patient given 2 L of normal saline and 10 units of insulin. Patient admitted to the hospitalist service. - Lab Data Lab results reviewed: Yes I reviewed the patient's lab results. Result diagrams: 03/01/17 22:24 03/01/17 22:24 Lab Results 03/01/17 03/01/17 03/01/17 Range/Units 21:42 22:24 22:24 WBC 4.3 (4.3-11.1) K/mcL RBC 3.46 L (4.19-5.50) M/mcL Hgb 9.9 L (12.9-16.9) g/dL Hct 29.0 L (37.5-50.1) % MCV 83.8 D (83.0-100.0) fL MCH 28.6 (28.0-33.3) pg MCHC 34.1 (31.6-35.5) g/dL RDW 14.0 (11.5-14.5) % Plt Count 65 L (140-400) K/mcL MPV 11.8 (9.4-12.4) fL Immature Gran % 0.5 (0-4) % Seg Neutrophils % 62.3 % Lymphocytes % 24.5 % Monocytes % 9.9 % Eosinophils % 2.1 % Basophils % 0.7 % Neutrophils # 2.7 (1.6-8.9) K/mcL Lymphocytes # 1.1 (0.6-4.6) K/mcL Monocytes # 0.4 (0.0-1.3) K/mcL Eosinophils # 0.1 (0.0-0.6) K/mcL Basophils # 0.0 (0.0-0.2) K/mcL Immature Plt Fraction 7.7 H (1.1-6.1) % PT 16.1 H (9.4-12.1) Seconds INR 1.5 APTT 37.0 H (26.0-36.0) Seconds VBG pH (7.32-7.42) pH Units VBG pCO2 (41-51) mmHg VBG pO2 (25-40) mmHg VBG HCO3 (21-27) mEq/L Sodium (136-145) mEq/L Potassium (3.5-4.5) mEq/L Chloride (98-109) mEq/L Carbon Dioxide (19-29) mEq/L BUN (8-26) mg/dL Creatinine (0.72-1.25) mg/dL Est GFR ( Amer) (> 60) Est GFR (Non-Af Amer) (> 60) BUN/Creatinine Ratio (6-26) Glucose (70-99) mg/dL Calculated Osmolality (280-300) Calcium (8.6-10.8) mg/dL Total Bilirubin (0.2-1.2) mg/dL AST (5-34) Units/L ALT (0-55) Units/L Alkaline Phosphatase (38-126) Units/L Serum Total Protein (6.0-8.3) g/dL Albumin (3.5-5.0) g/dL Globulin (2.4-3.5) g/dL Albumin/Globulin Ratio (1.1-2.2) Beta-Hydroxybutyric Acd (0.02-0.27) mmol/L Stool Occult Blood Positive A (Negative) Blood Type Antibody Screen 03/01/17 03/01/17 03/01/17 Range/Units 22:24 22:24 22:24 WBC (4.3-11.1) K/mcL RBC (4.19-5.50) M/mcL Hgb (12.9-16.9) g/dL Hct (37.5-50.1) % MCV (83.0-100.0) fL MCH (28.0-33.3) pg MCHC (31.6-35.5) g/dL RDW (11.5-14.5) % Plt Count (140-400) K/mcL MPV (9.4-12.4) fL Immature Gran % (0-4) % Seg Neutrophils % % Lymphocytes % % Monocytes % % Eosinophils % % Basophils % % Neutrophils # (1.6-8.9) K/mcL Lymphocytes # (0.6-4.6) K/mcL Monocytes # (0.0-1.3) K/mcL Eosinophils # (0.0-0.6) K/mcL Basophils # (0.0-0.2) K/mcL Immature Plt Fraction (1.1-6.1) % PT (9.4-12.1) Seconds INR APTT (26.0-36.0) Seconds VBG pH (7.32-7.42) pH Units VBG pCO2 (41-51) mmHg VBG pO2 (25-40) mmHg VBG HCO3 (21-27) mEq/L Sodium 128 L (136-145) mEq/L Potassium 4.4 (3.5-4.5) mEq/L Chloride 99 (98-109) mEq/L Carbon Dioxide 20 (19-29) mEq/L BUN 32 H (8-26) mg/dL Creatinine 1.35 H (0.72-1.25) mg/dL Est GFR ( Amer) > 60 (> 60) Est GFR (Non-Af Amer) 53 L (> 60) BUN/Creatinine Ratio 24 (6-26) Glucose 540 H* (70-99) mg/dL Calculated Osmolality 297 (280-300) Calcium 8.9 (8.6-10.8) mg/dL Total Bilirubin 0.5 (0.2-1.2) mg/dL AST 50 H (5-34) Units/L ALT 61 H (0-55) Units/L Alkaline Phosphatase 132 H (38-126) Units/L Serum Total Protein 7.7 (6.0-8.3) g/dL Albumin 3.2 L (3.5-5.0) g/dL Globulin 4.5 H (2.4-3.5) g/dL Albumin/Globulin Ratio 0.7 L (1.1-2.2) Beta-Hydroxybutyric Acd 0.15 (0.02-0.27) mmol/L Stool Occult Blood (Negative) Blood Type A NEGATIVE Antibody Screen NEGATIVE 03/01/17 Range/Units 22:24 WBC (4.3-11.1) K/mcL RBC (4.19-5.50) M/mcL Hgb (12.9-16.9) g/dL Hct (37.5-50.1) % MCV (83.0-100.0) fL MCH (28.0-33.3) pg MCHC (31.6-35.5) g/dL RDW (11.5-14.5) % Plt Count (140-400) K/mcL MPV (9.4-12.4) fL Immature Gran % (0-4) % Seg Neutrophils % % Lymphocytes % % Monocytes % % Eosinophils % % Basophils % % Neutrophils # (1.6-8.9) K/mcL Lymphocytes # (0.6-4.6) K/mcL Monocytes # (0.0-1.3) K/mcL Eosinophils # (0.0-0.6) K/mcL Basophils # (0.0-0.2) K/mcL Immature Plt Fraction (1.1-6.1) % PT (9.4-12.1) Seconds INR APTT (26.0-36.0) Seconds VBG pH 7.41 (7.32-7.42) pH Units VBG pCO2 38 L (41-51) mmHg VBG pO2 100 H (25-40) mmHg VBG HCO3 24 (21-27) mEq/L Sodium (136-145) mEq/L Potassium (3.5-4.5) mEq/L Chloride (98-109) mEq/L Carbon Dioxide (19-29) mEq/L BUN (8-26) mg/dL Creatinine (0.72-1.25) mg/dL Est GFR ( Amer) (> 60) Est GFR (Non-Af Amer) (> 60) BUN/Creatinine Ratio (6-26) Glucose (70-99) mg/dL Calculated Osmolality (280-300) Calcium (8.6-10.8) mg/dL Total Bilirubin (0.2-1.2) mg/dL AST (5-34) Units/L ALT (0-55) Units/L Alkaline Phosphatase (38-126) Units/L Serum Total Protein (6.0-8.3) g/dL Albumin (3.5-5.0) g/dL Globulin (2.4-3.5) g/dL Albumin/Globulin Ratio (1.1-2.2) Beta-Hydroxybutyric Acd (0.02-0.27) mmol/L Stool Occult Blood (Negative) Blood Type Antibody Screen - Radiology Data Radiology results reviewed: Yes I reviewed the patient's radiology results. Abdomen/Pelvis CT 03/01/17 21:50 IMPRESSION: Cirrhotic appearing liver with splenomegaly, right upper quadrant adenopathy, and mild pelvic adenopathy. No obvious source of patient's GI bleed identified. With continued clinical concern, recommend GI bleed scan or endoscopy for further evaluation. Incidentally noted right lower lobe pulmonary micronodules. RECOMMENDATIONS: Fleischner Society guidelines for follow-up and management of pulmonary nodules: Nodule size less than or equal to 4 mm In a low-risk patient, no follow-up needed. In a high-risk patient, follow-up CT at 12 months; if unchanged, no further follow-up. Nodule size equals 4-6 mm In a low-risk patient, follow-up CT at 12 months; if unchanged, no further follow-up. In a high-risk patient, initial follow-up CT at 6-12 months then at 18-24 months if no change. Nodule size equals 6-8 mm In a low-risk patient, initial follow-up CT at 6-12 months then at 18-24 months if no change. In a high-risk patient, initial follow-up CT at 3-6 months then at 9-12 months and 24 months if no change. Nodule size greater than 8 mm In low-risk and high-risk patients follow-up CT at around 3, 9, and 24 months, dynamic contrast-enhanced CT, PET, and/or biopsy. Low risk patients include individuals with minimal or absent history of smoking and other known risk factors. High risk patients include individuals with a history of smoking or other known risk factors. Radiology 2005; [id number] D/ / Evan De Oliveira MD / Evan De Oliveira MD Interpreting Provider: Evan De Oliveira MD - EKG Data EKG attestation: Yes I reviewed and interpreted this EKG. EKG results narrative: EKG demonstrates sinus rhythm with a rate of 86 bpm. Normal axis. Normal intervals. Normal R-wave progression. No gross ST elevations or depressions. No acute ischemic findings. S.B.A.R. - S.B.A.R. Situation: Demographics, MOA Background: Presenting Complaint, Relevant PMH, Meds, & Allergies Assessment: Course and respsone to treatment, Exam Concerns, Patient/Family Expectation, Pertinant Lab Results, Outstanding Labs Recommendation: Barrier(s) to disposition, Recommendation based on pending studies, treatments, or consults S.B.A.R. Report Given to: Dr. Castillo Attestation Statement - Attestation Attestation: I examined this patient and my medical decision-making was reviewed with the Resident Physician. I agree with the documented findings, disposition and treatment plan as described except to the extent set forth below. Male patient with concern for hyperglycemia. Blood glucose is greater than 500. Plan to admit for glycemic control.
[2017-03-01 22:34] LABS: Basophils % 0.7 %; Eosinophils # 0.1 K/mcL (0.0-0.6); Eosinophils % 2.1 %; Hemoglobin 9.9 g/dL (12.9-16.9); Immature Granulocytes % 0.5 % (0-4); Immature Platelets 7.7 % (1.1-6.1); Lymphocytes # 1.1 K/mcL (0.6-4.6); Lymphocytes % 24.5 %; Mean Corpuscular HGB Conc 34.1 g/dL (31.6-35.5); Mean Corpuscular Hemoglobin 28.6 pg (28.0-33.3); Mean Platelet Volume 11.8 fL (9.4-12.4); Monocytes # 0.4 K/mcL (0.0-1.3); Monocytes % 9.9 %; Neutrophils # 2.7 K/mcL (1.6-8.9); Red Blood Count 3.46 M/mcL (4.19-5.50); Segmented Neutrophils % 62.3 %; VBG PH 7.41 pH Units (7.32-7.42)
[2017-03-01 22:40] LABS: INR 1.5; Prothrombin Time 16.1 Seconds (9.4-12.1)
[2017-03-01 22:49] LABS: Alanine Aminotransferase 61 Units/L (0-55); Albumin 3.2 g/dL (3.5-5.0); Albumin/Globulin Ratio 0.7 (1.1-2.2); Alkaline Phosphatase 132 Units/L (38-126); Aspartate Amino Transferase 50 Units/L (5-34); BUN/Creatinine Ratio 24 (6-26); Bilirubin,Total 0.5 mg/dL (0.2-1.2); Blood Urea Nitrogen 32 mg/dL (8-26); Calcium 8.9 mg/dL (8.6-10.8); Carbon Dioxide 20 mEq/L (19-29); Chloride 99 mEq/L (98-109); Globulin 4.5 g/dL (2.4-3.5); Osmolality,Calculated 297 (280-300); Potassium 4.4 mEq/L (3.5-4.5); Sodium 128 mEq/L (136-145); Total Protein 7.7 g/dL (6.0-8.3); eGFR For African Americans > 60 (> 60); eGFR For Non-African Americans 53 (> 60)
[2017-03-01 23:01] LABS: Mean Corpuscular Volume 83.8 fL (83.0-100.0); Platelet Count 65 K/mcL (140-400)
[2017-03-01 23:03] LABS: Glucose 540 mg/dL (70-99)
[2017-03-01] MEDS ORDERED: Insulin Human Regular 10 UNIT in 0.9 % Sodium Chloride 10 ML IV ONE (23:35)
[2017-03-02] MEDS ORDERED: *HR* HYDROmorphone (PF) 1 MG/ML SYRINGE IVP ONE (00:32)
--- NOTE | 2017-03-02 02:22 | Internal Med History&Physical ---
Date of Encounter: 03/02/17 Time of Encounter: 02:19 Assessment and Plan (1) Hematochezia Current visit: Yes Status: Acute Hold Xarelto GI eval (2) GI bleed Current visit: Yes Status: Acute As above Abd CT unremarkable Qualifiers: GI bleed type/associated pathology: anorectal hemorrhage Qualified Code(s) : K62.5 - Hemorrhage of anus and rectum (3) Adrenal insufficiency Current visit: Yes Status: Chronic (4) Anemia Current visit: Yes Status: Chronic Hb stable at baseline Anemia of chronic kidney disease Qualifiers: Anemia type: unspecified type Qualified Code(s): D64.9 - Anemia, unspecified (5) Anxiety associated with depression Current visit: Yes Status: Chronic [facility] ([facility]) DVT prophylaxis Current visit: Yes Status: Acute Patient with hematochezia EPCDs (7) Diabetes Current visit: Yes Status: Chronic Uncontrolled, with hyperglycemia Insulin-basal, prandial and high dose correctional dose FS ACHS Qualifiers: Diabetes mellitus type: type 2 Diabetes mellitus complication status: with hyperglycemia Diabetes mellitus penitentiary insulin use: with penitentiary use Qualified Code(s): E11.65 - Type 2 diabetes mellitus with hyperglycemia; Z79.4 - USP (current) use of insulin (8) Hyponatremia Current visit: Yes Status: Chronic Chronic hyponatremia with psuedohyponatremia due to hyperglycemia Corrected Na at baseline, continue to monitor (9) Pulmonary air embolism Current visit: No Status: Chronic Hx if, hold Xarelto for now due to hematochezia Qualifiers: Encounter type: sequela Qualified Code(s): T79.0XXS - Air embolism ( traumatic), sequela (10) Thrombocytopenia Current visit: Yes Status: Chronic PLT is at baseline Chronic, due to liver cirrhosis (11) CAD (coronary artery disease) Current visit: Yes Status: Chronic Hold ASA due to hematochezia Resume other home meds Qualifiers: Coronary Disease-Associated Artery/Lesion type: [place] artery [place] vs. transplanted heart: [place] heart Associated angina: without angina Qualified Code(s): I25.10 - Atherosclerotic heart disease of [place] coronary artery without angina pectoris (12) CHF (congestive heart failure) Current visit: Yes Status: Chronic Euvolemic Continue home meds Qualifiers: Congestive heart failure type: diastolic Congestive heart failure chronicity: chronic Qualified Code(s): I50.32 - Chronic diastolic (congestive ) heart failure (13) Chronic obstructive pulmonary disease Current visit: Yes Status: Chronic Not in exacerbation Duonebs prn Resume home inhalers Qualifiers: COPD type: chronic bronchitis Chronic bronchitis type: unspecified Qualified Code(s): J42 - Unspecified chronic bronchitis (14) Cirrhosis of liver Current visit: Yes Status: Chronic NO demonstrable ascites on exam and on CT Chronic splenomegaly and pelvic lymphadenopathy Continue lactulose Mental status is intact is at this time Qualifiers: Hepatic cirrhosis type: unspecified hepatic cirrhosis Ascites presence: without ascites Qualified Code(s): K74.60 - Unspecified cirrhosis of liver (15) Essential hypertension Current visit: Yes Status: Chronic BP is controlled (16) Hx of drug abuse Current visit: Yes Status: Chronic Avoid feeding opiate abuse, no indication for IV opiates at this time Internal Medicine - H&P: HPI Chief complaint: Rectal bleed Admitted From: Hospital to Hospital Transfer Plans for Post Hospital Care: Home History of present illness: Mr. Ramirez is a 67 year old male Mr. Ramirez with PMHx of Polysubstance abuse, IDDM, non-alcoholic liver cirrhosis, dCHF (LVEF 60% with moderate diastolic dysfunction per echo on 10/28/16), CKD III, history of adrenal insufficiency, history of PE currently on Xarelto, COPD, CAD, HLD, HTN, TIA, Pancytopenia He was being managed at the [facility] for SOB and PTSD, he was transferred to [facility] for management of rectal bleed and hyperglycemia He has a known history of hemorrhoids and has been having bright red dripping following BM during the day yesterday prior to transfer. No hematemesis, no hematuria, no melena. He is on Xarelto for PE He has no new symptoms at this time Patient is known to be drug-seeking and has received dilaudidX2 from ER. I do not see an objective cause of his RUQ pain at this time as his exam is unremarkable for acute abdomen, his abd CT was unremarkable, and he was not receiving any medications while he was in the Psych unit at the [facility], there is no indication for IV opiates at this time His work up is at baseline except a positive stool occult blood Past Med Surg Social Fam HX - Past Medical History Medical history: arthritis, cirrhosis, CHF, COPD, coronary artery disease, diabetes, GERD, hyperlipidemia, hypertension, liver disease, osteoporosis, TIA Psychiatric history: anxiety, depression, panic disorder, PTSD, previous psychiatric hospitalization - Past Surgical History Surgical History: appendectomy, cholecystectomy, herniorrhaphy, knee replacement , other - Social History Smoking Status: Never smoker Smokeless Tobacco Status: No Alcohol use: none Drug use: none - Family History Mother Adopted: No Living Status: Hx Family Cancer: Yes Hx Family Endocrine Disorder: Yes (DM2) Father Living Status: Hx Family Cardiac Disorders: No Internal Medicine - H&P: Meds Cholecalciferol (Vitamin D3) [Vitamin D] 2,000 unit PO DAILY 05/13/15 [History] Insulin ASPART [NovoLOG] 25 unit SQ TIDWM 05/13/15 [History] Aspirin Enteric Coated [Aspirin EC] 81 mg PO DAILY 11/13/15 [History] Atorvastatin [Lipitor] 40 mg PO HS 11/13/15 [History] Insulin Glargine,Hum.rec.anlog [Lantus Solostar] 160 unit SQ BID 11/13/15 [ History] Lactulose 15 gm PO BID 11/13/15 [History] Omeprazole [PriLOSEC] 20 mg PO DAILY 11/13/15 [History] Tamsulosin [Flomax] 0.4 mg PO DAILY 11/13/15 [History] Furosemide [Lasix] 40 mg PO DAILY 05/16/16 [History] Rivaroxaban [Xarelto] 10 mg PO DAILY 05/16/16 [History] risperiDONE [Risperdal] 3 mg PO HS 05/16/16 [History] Atenolol [Tenormin] 50 mg PO DAILY 05/29/16 [History] Ipratropium/Albuterol Neb [Duoneb] 3 ml IH QID 08/10/16 [History] Sertraline [Zoloft] 100 mg PO HS 10/27/16 [History] Spironolactone [Aldactone] 50 mg PO DAILY 10/27/16 [History] Cyprohepatdine [Periactin] 4 mg PO HS 01/26/17 [History] Ibuprofen [Motrin] 600 mg PO Q8HR PRN 01/26/17 [History] Melatonin [Melatin] 9 mg PO HS 01/26/17 [History] Metformin HCl [Glucophage] 1,000 mg PO BID 01/26/17 [History] Buprenorphine HCl/Naloxone HCl [Buprenorphin-Naloxon 8-2 mg Sl] 1 tab SL BID [History] Magnesium Oxide [Mag-Ox] 400 mg PO DAILY #30 tab 02/01/17 [Rx] Lisinopril 2.5 mg PO HS 02/03/17 [History] Melatonin [Melatin] 9 mg PO HS 02/03/17 [History] 3 Allergy/AdvReac Type Severity Reaction Status Date / Time Iodinated Contrast- Oral and Allergy Difficulty Verified 03/01/17 19:16 IV Dye Breathing ketorolac [From Toradol] Allergy Nausea Verified 03/01/17 19:16 Penicillins Allergy Rash Verified 03/01/17 19:16 butorphanol [From Stadol] AdvReac Nausea Verified 03/01/17 19:16 celecoxib AdvReac unknown Verified 03/01/17 19:16 diphenhydramine AdvReac See Verified 03/01/17 19:16 [From Benadryl] Comments gabapentin AdvReac unknown Verified 03/01/17 19:16 Methadone AdvReac See Verified 03/01/17 19:16 Comments mirtazapine AdvReac unknown Verified 03/01/17 19:16 morphine AdvReac See Verified 03/01/17 19:16 Comments tramadol AdvReac unknown Verified 02/03/17 21:00 vancomycin AdvReac unknown Verified 02/03/17 21:00 All Systems PM: A 10-system review of systems was performed and is negative for pertinent findings except as documented above in the HPI. - Constitutional Constitutional: no chills, no fever(s), no night sweats - EENT Eyes: no change in vision, no discharge, no pain, no photophobia Nose, mouth and throat: no dysphagia, no nasal discharge, no neck pain, no sore throat - Cardiovascular Cardiovascular ROS IM: no chest pain, no diaphoresis, no dyspnea, no lightheadedness, no palpitations, no syncope - Respiratory Respiratory: no cough, no dyspnea, no wheezing, no excessive phlegm production - Gastrointestinal Gastrointestinal: as per HPI, hematochezia - Musculoskeletal Musculoskeletal ROS IM: no numbness, no tingling - Integumentary Integumentary IM: no rash, no unusual bruising - Neurological Neurological ROS: no confusion, no convulsions, no focal weakness, no numbness, no tingling, no tremor(s) - Hematologic/Lymphatic Hematologic/Lymphatic: no easy bruising - Constitutional Vitals: Temp Pulse Resp BP Pulse Ox 98 F 80 17 123/77 95 03/02/17 01:45 03/02/17 01:45 03/02/17 01:45 03/02/17 01:45 03/02/17 01:45 Gen: VSS, sleeping but rousable, not in ay form of distress HEENT: Moist mucosa, not cyanotic, not pale Chest: CTAB Heart: S1, S2 only,no m/g/r Abdomen: Multiple scars++, soft and not tender Extremities: No edema Neuro: AAOX3, moves all limbs spontaneously : rectal exam deferred Internal Med - H&P Results - Labs CBC & Chem 7: 03/01/17 22:24 03/01/17 22:24
[2017-03-02] MEDS ORDERED: D5% in Water 1,000 ML IVC PRN (02:25)
[2017-03-02] MEDS ORDERED: Dextrose Gel 15 GM PO PRN ×2 (02:25)
[2017-03-02] MEDS ORDERED: *HR* Dextrose 50 % in Water (Syg) 50 ML SYRINGE IVP PRN (02:25)
[2017-03-02] MEDS ORDERED: Naloxone 0.4 MG/ML INJ IVP PRN (02:26)
[2017-03-02 06:54] LABS: Basophils % 0.9 %; Immature Granulocytes % 0.2 % (0-4)
[2017-03-02 06:56] LABS: Eosinophils # 0.2 K/mcL (0.0-0.6); Hematocrit 28.9 % (37.5-50.1); Hemoglobin 9.6 g/dL (12.9-16.9); Immature Platelets 7.7 % (1.1-6.1); Lymphocytes # 1.4 K/mcL (0.6-4.6); Lymphocytes % 33.6 %; Mean Corpuscular HGB Conc 33.2 g/dL (31.6-35.5); Mean Corpuscular Hemoglobin 28.2 pg (28.0-33.3); Mean Corpuscular Volume 84.8 fL (83.0-100.0); Monocytes # 0.4 K/mcL (0.0-1.3); Monocytes % 9.6 %; Neutrophils # 2.2 K/mcL (1.6-8.9); Red Blood Count 3.41 M/mcL (4.19-5.50); Segmented Neutrophils % 51.7 %
[2017-03-02 06:57] LABS: BUN/Creatinine Ratio 25 (6-26); Blood Urea Nitrogen 27 mg/dL (8-26); Calcium 8.5 mg/dL (8.6-10.8); Carbon Dioxide 21 mEq/L (19-29); Chloride 105 mEq/L (98-109); Glucose 217 mg/dL (70-99); Osmolality,Calculated 290 (280-300); Potassium 4.4 mEq/L (3.5-4.5); Sodium 134 mEq/L (136-145); eGFR For African Americans > 60 (> 60); eGFR For Non-African Americans > 60 (> 60)
[2017-03-02 07:13] LABS: Platelet Count 70 K/mcL (140-400)
[2017-03-02] MEDS: Furosemide 40 MG TABLET PO SCH (09:04)
[2017-03-02] MEDS: Lactulose Oral Soln 20 GM/30 ML UDC PO SCH ×2 (09:04→20:44)
[2017-03-02] MEDS: Cholecalciferol (D-3) 1,000 UNIT TABLET PO SCH (09:04)
[2017-03-02] MEDS: *HR* HYDROmorphone (PF) 1 MG/ML SYRINGE IVP PRN ×3 (09:05→20:44)
[2017-03-02] MEDS: Insulin LISPRO 300 UNITS/3 ML VIAL SQ SCH ×7 (09:05→21:57)
[2017-03-02] MEDS: Insulin DETEMIR 100 UNIT/ML X5UNITS SQ SCH ×2 (09:07→20:45)
--- NOTE | 2017-03-02 11:31 | Event Note ---
<Lacho Louise - Last Filed: 03/02/17 11:27> Date of Encounter: 03/02/17 Time of Encounter: 10:30 Attempted to see patient 3 times, and patient was off floor. Chart reviewed. CT A/P with cirrhotic appearing liver with splenomegaly, right upper quadrant adenopathy and mild pelvic adenopathy. No ascites noted. Pt was sent from [facility] for BRBPR. Xarelto has been stopped. He has known cirrhosis, last EGD 05/2016 was normal. Check RUQ US and AFP. Plan for colonoscopy tomorrow. Clear liquid diet today, no red or purple. NPO at midnight. If unable tolerate NuLytely please use MiraLAX prep. If not clear by 6 AM, give 2 tap water enemas. <Angelo Echols - Last Filed: 03/05/17 15:49> Date of Encounter: 03/05/17 I also went several times to his room but, could not find him there.
--- NOTE | 2017-03-02 15:43 | Gastroenterology Consult Note ---
Date of Encounter: 03/02/17 Time of Encounter: 15:39 - Assessment and plan (1) Hematochezia Current Visit: Yes Status: Acute Assessment and plan: Reported episode of bright red blood per rectum at [facility] FOBT positive. Hemoglobin stable at 9.6 Previous colonoscopy 05/2016 with diffuse inflammation of rectum consistent with colitis and localized mild inflamation of proximal transverse colon. iopsies with rectal focal ulcerated colonic mucosa witha cute inflammation and abscess formation, proximal transverse colon with localized mild inflammation. Differential included colitis vs early inflammatory bowel disease. Will obtain Inflammatory Bowel disease panle. Will prep for colonoscopy tomorrow, NPO at midnight. - Time Spent With Patient Total time spent is greater than 50% in coordination of care (as documented) at patient's floor/unit and/or counseling patient: GI History of Present Illness - Data of Consult Patient: known to practice within the last 3 years Consult date: 03/02/17 Requesting Physician: Johan Wiley MD - Consult Narrative Reason for consult: blood per rectum History of present illness: Mr. Ramirez is a 67 year old male who is being evaluated today for concerns of bright red blood per rectum. Per his report, he was at the [facility] receiving care for shortness of breath and PTSD when about 2 days ago he began noticing increasing blood both on his underwear, when he wiped as well as in the toilet water when he used the restroom. Yesterday he noticed when he stood up from the toilet he had blood dripping from his rectal area onto the floor in the bathroom. He was then brought to the emergency room for further evaluation. He reports he has chronic right-sided abdominal pain, he characterizes this as sharp. He does believe that this may get slightly worse prior to bowel movements but is not relieved by bowel movements. He states the only thing that helps his pain is the pain medication which he received while he is in the hospital. He denies any history of hemorrhoids but states that he was told when he was in the ER that he does have hemorrhoids. He reports that he does have 2 regular bowel movements per day. He denies any straining or excessive pushing with these bowel movements. He denies any history of pebble like stools. He does report that his normal stools are large in caliber and forms. He denies any blackening of the stool but does believe that his stool is a little bit darker over the past couple of days and it has been previously. He is on chronic anticoagulation for a pulmonary embolism, he states this was approximately 2 years ago. He reports that the pulmonary embolism was his 1st pulmonary embolism and he has never had any other issues. Per record review, patient has had multiple admissions for concerns are bright red blood per rectum. He has had a colonoscopy. He has also consistently complained of right lower quadrant abdominal pain for numerous times in previous admissions. Workups to date has been negative for any source of his abdominal pain. Colonoscopy: 05/2016 Dr. Peace Past Med Surg Social [facility] HX - Past Medical History Medical history: arthritis, cirrhosis, CHF, COPD, coronary artery disease, diabetes, GERD, hyperlipidemia, hypertension, liver disease, osteoporosis, TIA Psychiatric history: anxiety, depression, panic disorder, PTSD, previous psychiatric hospitalization - Past Surgical History Surgical History: appendectomy, cholecystectomy, herniorrhaphy, knee replacement , other - Social History Smoking Status: Never smoker Smokeless Tobacco Status: No Alcohol use: none Drug use: none - Family History Mother Adopted: No Living Status: Hx Family Cancer: Yes Hx Family Endocrine Disorder: Yes (DM2) Father Living Status: Hx Family Cardiac Disorders: No - Gastrointestinal Gastrointestinal: Present: abdominal pain (right sided), hematochezia. Absent: constipation, diarrhea, heartburn, melena, nausea - Constitutional Constitutional: no fever(s) - EENT Ears: Absent: ear discharge Nose, mouth and throat: Absent: hoarseness, sore throat - Cardiovascular Cardiovascular ROS: Absent: chest pain - Respiratory Respiratory IM: Absent: cough, hemoptysis, wheezing - Genitourinary Genitourinary: Absent: change in color - Neurological ROS Neurological GI: Absent: frequent falls - Constitutional Vitals: Temp Pulse Resp BP Pulse Ox 98.2 F 67 17 112/71 95 03/02/17 12:18 03/02/17 12:18 03/02/17 12:18 03/02/17 12:18 03/02/17 12:18 General appearance: Present: cooperative, A&O X 3, no acute distress, obese, answers questions appropriately - Head Head exam: Present: atraumatic, normocephalic - Eye Eye exam: Present: normal appearance. Absent: scleral icterus, conjuntiva pink - ENT ENT exam: Present: mucous membranes moist - Neck Neck exam general surgery: Present: supple, trachea midline - Respiratory Respiratory exam: Present: CTAB. Absent: rales, rhonchi, wheezes - Cardiovascular Cardiovascular exam: Present: RRR, +S1, +S2. Absent: diastolic murmur, systolic murmur - GI/Abdominal GI/Abdominal exam: Present: normal bowel sounds, soft, tenderness (diffuse right side, more in upper right quadrant). Absent: distended, guarding, hepatomegaly, mass - Extremities Exam Extremities exam: Present: normal capillary refill, warm Results - Labs CBC & Chem 7: 03/02/17 06:14 03/02/17 06:14 Labs: Last Result Calcium 8.5 mg/dL (8.6-10.8) L 03/02/17 06:14 Stool Occult Blood Positive (Negative) A 03/01/17 21:42 Entire Visit Hgb 9.6 g/dL (12.9-16.9) L 03/02/17 06:14 Hct 28.9 % (37.5-50.1) L 03/02/17 06:14 PT 16.1 Seconds (9.4-12.1) H 03/01/17 22:24 Total Bilirubin 0.5 mg/dL (0.2-1.2) 03/01/17 22:24 AST 50 Units/L (5-34) H 03/01/17 22:24 ALT 61 Units/L (0-55) H 03/01/17 22:24 - ABG ABG results: PT/INR, D-dimer PT 16.1 Seconds (9.4-12.1) H 03/01/17 22:24 - Impressions Impressions Pulmonary Perfusion Imaging 03/02/17 09:16 IMPRESSION: Very low probability for pulmonary embolism. D/ / Kp Díaz MD / Kp Díaz MD Interpreting Provider: Kp Díaz MD Chest X-Ray 03/02/17 09:59 IMPRESSION: Mild bibasilar likely atelectasis. D/ / 03/02/2017 11:52:58 Rickie Rodgers MD / kelly Interpreting Provider: Rickie Rodgers MD Liver Ultrasound 03/02/17 11:00 IMPRESSION: 2.7 cm hyperechoic lesion within the right hepatic lobe which corresponds to a hypodense lesion seen on previous CT exam. The lesion is compatible with a hemangioma. Cholecystectomy. Cirrhosis. D/ / 03/02/2017 12:02:23 Sage Byrne MD / kelly Interpreting Provider: Sage Byrne MD Consult Discharge Plan - Plan [facility]errals[facility] [Primary Care Provider[facility] -
[2017-03-02] MEDS ORDERED: SODIUM CHLORIDE/NAHCO3/KCL/PEG 4,000 ML SOLN.RECON PO ONE (17:00)
--- NOTE | 2017-03-02 19:26 | Electrocardiograph Report ---
[place] [id number] Test Date: 2017-03-01 Pat Name: Teddy Ramirez Department: 103 Room: 2A Gender: M [employer] Hand: : 1950 Requested By: Everton Linares Order Number: [id number] Reading MD: Deb Woodard Measurements Intervals [place] Rate: 86 P: 40 W[place]: 193 QRS: 16 QRSD: 96 T: 33 QT: 355 QTc: 398 Interpretive Statements SINUS RHYTHM POSSIBLE RIGHT VENTRICULAR CONDUCTION DELAY [RSR (QR) IN V1/V2] Electronically Signed On 03-02-2017 19:25:26 EDT by Deb Woodard
[2017-03-02] MEDS: Melatonin 3 MG TABLET PO SCH (20:45)
[2017-03-02] MEDS: RisperiDAL 3 MG TABLET PO SCH (20:45)
[2017-03-02] MEDS: Cyprohepatdine 4 MG TABLET PO SCH (20:45)
[2017-03-02] MEDS ORDERED: Insulin DETEMIR 100 UNIT/ML X5UNITS SQ SCH (21:00)
--- NOTE | 2017-03-02 22:50 | Event Note ---
Date of Encounter: 03/02/17 Time of Encounter: 09:00 See H&P from earlier today. No more episodes of BRBPR. No CP/SOB, dizziness. Addendum: GI has evaluated patient and plans for colonoscopy.
[2017-03-03] MEDS ORDERED: Ondansetron 4 MG/2 ML VIAL IVP PRN (00:20)
[2017-03-03] MEDS: *HR* HYDROmorphone (PF) 1 MG/ML SYRINGE IVP PRN ×2 (00:55→05:32)
[2017-03-03] MEDS ORDERED: Polyethylene Glycol 3350 255 GM POWDER PO ONE ×2 (04:57→18:41)
[2017-03-03 05:25] LABS: Eosinophils % 4.3 %; Hematocrit 30.1 % (37.5-50.1); Immature Granulocytes % 0.2 % (0-4)
[2017-03-03 05:27] LABS: Basophils % 0.8 %; Eosinophils # 0.2 K/mcL (0.0-0.6); Hemoglobin 9.8 g/dL (12.9-16.9); Immature Platelets 7.7 % (1.1-6.1); Lymphocytes # 1.5 K/mcL (0.6-4.6); Lymphocytes % 30.5 %; Mean Corpuscular HGB Conc 32.6 g/dL (31.6-35.5); Mean Platelet Volume 11.9 fL (9.4-12.4); Monocytes # 0.5 K/mcL (0.0-1.3); Red Cell Distribution Width 14.3 % (11.5-14.5); Segmented Neutrophils % 54.2 %
[2017-03-03 05:36] LABS: BUN/Creatinine Ratio 25 (6-26); Blood Urea Nitrogen 29 mg/dL (8-26); Calcium 8.8 mg/dL (8.6-10.8); Carbon Dioxide 24 mEq/L (19-29); Chloride 104 mEq/L (98-109); Glucose 137 mg/dL (70-99); Osmolality,Calculated 292 (280-300); Potassium 4.1 mEq/L (3.5-4.5); Sodium 137 mEq/L (136-145); eGFR For African Americans > 60 (> 60); eGFR For Non-African Americans > 60 (> 60)
[2017-03-03 05:39] LABS: Neutrophils # 2.7 K/mcL (1.6-8.9); Platelet Count 72 K/mcL (140-400)
[2017-03-03] MEDS: Insulin LISPRO 300 UNITS/3 ML VIAL SQ SCH ×7 (08:09→22:24)
[2017-03-03] MEDS: Cholecalciferol (D-3) 1,000 UNIT TABLET PO SCH (08:19)
[2017-03-03] MEDS: Insulin DETEMIR 100 UNIT/ML X5UNITS SQ SCH ×2 (08:19→20:16)
[2017-03-03] MEDS: Lactulose Oral Soln 20 GM/30 ML UDC PO SCH ×3 (08:19→20:19)
[2017-03-03] MEDS: Furosemide 40 MG TABLET PO SCH (08:19)
[2017-03-03] MEDS ORDERED: *HR* OxyCODONE Immed Rel 5 MG TABLET PO PRN (10:28)
--- NOTE | 2017-03-03 19:33 | Internal Med Progress Note ---
Date of Encounter: 03/03/17 Time of Encounter: 11:50 - Assessment and plan (1) GI bleed Current Visit: Yes Status: Acute Assessment and plan: Anticipate colonoscopy tomorrow by GI Qualifiers: GI bleed type/associated pathology: anorectal hemorrhage Qualified Code(s) : K62.5 - Hemorrhage of anus and rectum (2) Abdominal pain Current Visit: Yes Status: Chronic Assessment and plan: Objectively there is no source of pain. On physical exam, abdomen is soft and non-distended with no peritoneal signs, and he is non toxic in appearance. There is voluntary guarding. Could be from colitis/UC. Will follow-up post colonoscopy. Best to avoid IV pain medication and preferred if we can reduce PO medication to avoid GI side effects/ constipation. Qualifiers: Abdominal location: generalized Qualified Code(s): R10.84 - Generalized abdominal pain (3) CAD (coronary artery disease) Current Visit: Yes Status: Chronic Assessment and plan: AC currently held because of bleeding Qualifiers: Coronary Disease-Associated Artery/Lesion type: [place] artery [place] vs. transplanted heart: [place] heart Associated angina: without angina Qualified Code(s): I25.10 - Atherosclerotic heart disease of [place] coronary artery without angina pectoris (4) CHF (congestive heart failure) Current Visit: Yes Status: Chronic Assessment and plan: On BIBIANA inhibitor and spironolactone Qualifiers: Congestive heart failure type: diastolic Congestive heart failure chronicity: chronic Qualified Code(s): I50.32 - Chronic diastolic (congestive ) heart failure (5) Chronic obstructive pulmonary disease Current Visit: Yes Status: Chronic Assessment and plan: aerosol treatments as needed Qualifiers: COPD type: chronic bronchitis Chronic bronchitis type: unspecified Qualified Code(s): J42 - Unspecified chronic bronchitis (6) Cirrhosis of liver Current Visit: Yes Status: Chronic Assessment and plan: Stable Qualifiers: Hepatic cirrhosis type: unspecified hepatic cirrhosis Ascites presence: without ascites Qualified Code(s): K74.60 - Unspecified cirrhosis of liver (7) Hx of drug abuse Current Visit: Yes Status: Chronic Assessment and plan: Would like to decrease opiate use to avoid addiction and seeking. Discussed this extensively with patient. - Subjective Interval history: No hematochezia, melena, CP, SOB, N/V. Complains of abdominal pain asks for IV dilauded instead of PO - Constitutional Vitals: Temp Pulse Resp BP Pulse Ox 98.2 F 77 19 133/75 92 03/03/17 15:42 03/03/17 15:42 03/03/17 15:42 03/03/17 15:42 03/03/17 15:42 General appearance: Present: A&O X 3, no acute distress, answers questions appropriately Exam: - Gastrointestinal + TTP lower quadrants, soft, non distended - Cardiovascular RRR, normal s1/s2 - Respiratory CTAB -Extremities No cyanosis, no edema Internal Medicine: Result - Labs CBC & Chem 7: 03/03/17 04:26 03/03/17 04:26 Labs: Short CBC 03/03/17 Range/Units 04:26 WBC 4.9 (4.3-11.1) K/mcL Hgb 9.8 L (12.9-16.9) g/dL Hct 30.1 L (37.5-50.1) % Plt Count 72 L (140-400) K/mcL Neutrophils # 2.7 (1.6-8.9) K/mcL BMP 03/03/17 04:26 Sodium 137 Potassium 4.1 Chloride 104 Carbon Dioxide 24 BUN 29 H Creatinine 1.15 Glucose 137 H Calcium 8.8 - ABG Interpretation ABG results: PT/INR, D-dimer PT 16.1 Seconds (9.4-12.1) H 03/01/17 22:24 Consult Discharge Plan - Plan Referrals: EUGENIO,PCP [Primary Care Provider] - 03/11/17 10:00 am
[2017-03-03] MEDS: Melatonin 3 MG TABLET PO SCH (20:14)
[2017-03-03] MEDS: Cyprohepatdine 4 MG TABLET PO SCH (20:14)
[2017-03-03] MEDS: RisperiDAL 3 MG TABLET PO SCH (20:14)
[2017-03-03] MEDS: *HR* OxyCODONE Immed Rel 5 MG TABLET PO PRN (20:14)
[2017-03-04] MEDS: *HR* OxyCODONE Immed Rel 5 MG TABLET PO PRN ×2 (02:36→22:01)
[2017-03-04 05:30] LABS: Basophils % 0.9 %; Eosinophils # 0.1 K/mcL (0.0-0.6); Eosinophils % 3.6 %; Hematocrit 29.9 % (37.5-50.1); Immature Granulocytes % 0.3 % (0-4); Lymphocytes % 31.5 %; Mean Corpuscular HGB Conc 33.4 g/dL (31.6-35.5); Mean Corpuscular Hemoglobin 28.2 pg (28.0-33.3); Mean Corpuscular Volume 84.5 fL (83.0-100.0); Mean Platelet Volume 11.7 fL (9.4-12.4); Monocytes # 0.3 K/mcL (0.0-1.3); Monocytes % 9.9 %; Neutrophils # 1.8 K/mcL (1.6-8.9); Red Blood Count 3.54 M/mcL (4.19-5.50); Red Cell Distribution Width 13.7 % (11.5-14.5); Segmented Neutrophils % 53.8 %
[2017-03-04 05:31] LABS: Platelet Count 67 K/mcL (140-400)
[2017-03-04 05:42] LABS: BUN/Creatinine Ratio 19 (6-26); Blood Urea Nitrogen 21 mg/dL (8-26); Calcium 8.9 mg/dL (8.6-10.8); Carbon Dioxide 23 mEq/L (19-29); Chloride 99 mEq/L (98-109); Glucose 343 mg/dL (70-99); Osmolality,Calculated 289 (280-300); Potassium 3.8 mEq/L (3.5-4.5); Sodium 131 mEq/L (136-145); eGFR For African Americans > 60 (> 60); eGFR For Non-African Americans > 60 (> 60)
--- NOTE | 2017-03-04 07:57 | Internal Med Progress Note ---
Date of Encounter: 03/04/17 Time of Encounter: 07:55 - Assessment and plan (1) GI bleed Current Visit: Yes Status: Acute Assessment and plan: Has colonoscopy today. Qualifiers: GI bleed type/associated pathology: anorectal hemorrhage Qualified Code(s) : K62.5 - Hemorrhage of anus and rectum (2) Abdominal pain Current Visit: Yes Status: Chronic Assessment and plan: Objectively there is no source of pain. On physical exam, abdomen is soft and non-distended with no peritoneal signs, and he is non toxic in appearance. There is voluntary guarding. Could be from colitis/UC. Will follow-up post colonoscopy. Best to avoid IV pain medication and preferred if we can reduce PO medication to avoid GI side effects/ constipation. Qualifiers: Abdominal location: generalized Qualified Code(s): R10.84 - Generalized abdominal pain (3) CAD (coronary artery disease) Current Visit: Yes Status: Chronic Assessment and plan: AC currently held because of bleeding Qualifiers: Coronary Disease-Associated Artery/Lesion type: [place] artery [place] vs. transplanted heart: [place] heart Associated angina: without angina Qualified Code(s): I25.10 - Atherosclerotic heart disease of [place] coronary artery without angina pectoris (4) CHF (congestive heart failure) Current Visit: Yes Status: Chronic Assessment and plan: On BIBIANA inhibitor and spironolactone Qualifiers: Congestive heart failure type: diastolic Congestive heart failure chronicity: chronic Qualified Code(s): I50.32 - Chronic diastolic (congestive ) heart failure (5) Chronic obstructive pulmonary disease Current Visit: Yes Status: Chronic Assessment and plan: aerosol treatments as needed Qualifiers: COPD type: chronic bronchitis Chronic bronchitis type: unspecified Qualified Code(s): J42 - Unspecified chronic bronchitis (6) Cirrhosis of liver Current Visit: Yes Status: Chronic Assessment and plan: Stable Qualifiers: Hepatic cirrhosis type: unspecified hepatic cirrhosis Ascites presence: without ascites Qualified Code(s): K74.60 - Unspecified cirrhosis of liver (7) Hx of drug abuse Current Visit: Yes Status: Chronic Assessment and plan: Would like to decrease opiate use to avoid addiction and seeking. Discussed this extensively with patient. - Subjective Interval history: No hematochezia, melena, CP, SOB, N/V. - Constitutional Vitals: Temp Pulse Resp BP Pulse Ox 98.4 F 93 16 142/80 92 03/04/17 07:00 03/04/17 07:00 03/04/17 07:00 03/04/17 07:00 03/04/17 07:00 General appearance: Present: A&O X 3, no acute distress, answers questions appropriately - Head Head exam: Present: atraumatic, normocephalic - Respiratory Respiratory exam: Present: CTAB. Absent: accessory muscle use, rales, rhonchi, wheezes - Cardiovascular Cardiovascular exam: Present: RRR, +S1, +S2. Absent: diastolic murmur, gallop, rubs, systolic murmur - GI/Abdominal GI/Abdominal exam: Present: normal bowel sounds, soft, no peritoneal signs. Absent: distended, tenderness Internal Medicine: Result - Labs CBC & Chem 7: 03/04/17 05:03 03/04/17 05:03 Labs: Short CBC 03/04/17 Range/Units 05:03 WBC 3.3 L (4.3-11.1) K/mcL Hgb 10.0 L (12.9-16.9) g/dL Hct 29.9 L (37.5-50.1) % Plt Count 67 L (140-400) K/mcL Neutrophils # 1.8 (1.6-8.9) K/mcL BMP 03/04/17 05:03 Sodium 131 L Potassium 3.8 Chloride 99 Carbon Dioxide 23 BUN 21 Creatinine 1.09 Glucose 343 H Calcium 8.9 - ABG Interpretation ABG results: PT/INR, D-dimer PT 16.1 Seconds (9.4-12.1) H 03/01/17 22:24 Consult Discharge Plan - Plan Additional Instructions: Follow-up with gastroenterology in 2 weeks [facility]: [facility] Provider[facility] - 03/11/17 10:00 am
[2017-03-04] MEDS: Cholecalciferol (D-3) 1,000 UNIT TABLET PO SCH (09:03)
[2017-03-04] MEDS: Furosemide 40 MG TABLET PO SCH (09:03)
[2017-03-04] MEDS: Lactulose Oral Soln 20 GM/30 ML UDC PO SCH ×2 (09:03→21:44)
[2017-03-04] MEDS: Insulin DETEMIR 100 UNIT/ML X5UNITS SQ SCH ×2 (09:03→21:44)
[2017-03-04] MEDS: Insulin LISPRO 300 UNITS/3 ML VIAL SQ SCH ×7 (09:03→21:44)
[2017-03-04] MEDS ORDERED: Insulin DETEMIR 100 UNIT/ML X5UNITS SQ ONE (09:06)
[2017-03-04] MEDS ORDERED: *HR* FentaNYL (PF) 100 MCG/2 ML VIAL ONE (11:40)
[2017-03-04] MEDS ORDERED: *HR* Midazolam HCl 5 MG/5 ML VIAL IVP ONE (11:40)
[2017-03-04] MEDS ORDERED: *HR* FentaNYL (PF) 100 MCG/2 ML VIAL IVP PRN (12:52)
[2017-03-04] MEDS ORDERED: *HR* Midazolam HCl 5 MG/5 ML VIAL IVP PRN (12:52)
[2017-03-04] MEDS ORDERED: Simethicone 40 MG/0.6 ML MLS IR ONE (12:52)
--- NOTE | 2017-03-04 12:54 | Pre-Sedation Evaluation ---
Pre-sedation evaluation - Pre-sedation checklist Date of procedure: 03/04/17 Recent Vitals: Last Vital Signs Temp 97.8 F 03/04/17 11:53 Pulse 76 03/04/17 11:53 Resp 18 03/04/17 11:53 BP 140/78 03/04/17 11:53 Pulse Ox 91 03/04/17 11:53 ASA Classification *see protocol: CLASS II-Mild systemic disease, E-EMERGENCY- Add to any of the above to indicate emergent Plan of Care: Pt appropriate candidate for procedure/moderate/conscious sedation , Risks/benefits of procedure/sedation discussed w/ patient/family
--- NOTE | 2017-03-04 18:32 | Discharge Summary ---
Date of Encounter: 03/04/17 Time of Encounter: 18:29 - Discharge Diagnosis (1) GI bleed Priority: Primary Status: Acute Qualifiers: GI bleed type/associated pathology: anorectal hemorrhage Qualified Code(s) : K62.5 - Hemorrhage of anus and rectum (2) Abdominal pain Priority: Secondary Status: Chronic Qualifiers: Abdominal location: generalized Qualified Code(s): R10.84 - Generalized abdominal pain (3) CAD (coronary artery disease) Priority: Secondary Status: Chronic Qualifiers: Coronary Disease-Associated Artery/Lesion type: [place] artery [place] vs. transplanted heart: [place] heart Associated angina: without angina Qualified Code(s): I25.10 - Atherosclerotic heart disease of [place] coronary artery without angina pectoris (4) CHF (congestive heart failure) Priority: Secondary Status: Chronic Qualifiers: Congestive heart failure type: diastolic Congestive heart failure chronicity: chronic Qualified Code(s): I50.32 - Chronic diastolic (congestive ) heart failure (5) Chronic obstructive pulmonary disease Priority: Secondary Status: Chronic Qualifiers: COPD type: chronic bronchitis Chronic bronchitis type: unspecified Qualified Code(s): J42 - Unspecified chronic bronchitis (6) Cirrhosis of liver Priority: Secondary Status: Chronic Qualifiers: Hepatic cirrhosis type: unspecified hepatic cirrhosis Ascites presence: without ascites Qualified Code(s): K74.60 - Unspecified cirrhosis of liver (7) Hx of drug abuse Priority: Secondary Status: Chronic - Discharge Medications Home Medications: Cholecalciferol (Vitamin D3) [Vitamin D] 2,000 unit PO DAILY 05/13/15 [History] Insulin ASPART [NovoLOG] 25 unit SQ TIDWM 05/13/15 [History] Aspirin Enteric Coated [Aspirin EC] 81 mg PO DAILY 11/13/15 [History] Atorvastatin [Lipitor] 40 mg PO HS 11/13/15 [History] Insulin Glargine,Hum.rec.anlog [Lantus Solostar] 55 unit SQ BID 11/13/15 [ History] Lactulose 15 gm PO BID 11/13/15 [History] Omeprazole [PriLOSEC] 20 mg PO DAILY 11/13/15 [History] Tamsulosin [Flomax] 0.4 mg PO DAILY 11/13/15 [History] Furosemide [Lasix] 40 mg PO DAILY 05/16/16 [History] Rivaroxaban [Xarelto] 10 mg PO DAILY 05/16/16 [History] risperiDONE [Risperdal] 3 mg PO HS 05/16/16 [History] Atenolol [Tenormin] 50 mg PO DAILY 05/29/16 [History] Ipratropium/Albuterol Neb [Duoneb] 3 ml IH QID 08/10/16 [History] Sertraline [Zoloft] 100 mg PO HS 10/27/16 [History] Spironolactone [Aldactone] 50 mg PO DAILY 10/27/16 [History] Cyprohepatdine [Periactin] 4 mg PO HS 01/26/17 [History] Buprenorphine HCl/Naloxone HCl [Buprenorphin-Naloxon 8-2 mg Sl] 2 tab SL BID [History] Magnesium Oxide [Mag-Ox] 400 mg PO DAILY #30 tab 02/01/17 [Rx] Lisinopril 2.5 mg PO HS 02/03/17 [History] Melatonin [Melatin] 9 mg PO HS 02/03/17 [History] glipiZIDE [Glipizide] 10 mg PO BID 03/02/17 [History] Allergies/Adverse Reactions: 3 Allergy/AdvReac Type Severity Reaction Status Date / Time Iodinated Contrast- Oral and Allergy Difficulty Verified 03/01/17 19:16 IV Dye Breathing ketorolac [From Toradol] Allergy Nausea Verified 03/01/17 19:16 Penicillins Allergy Rash Verified 03/01/17 19:16 butorphanol [From Stadol] AdvReac Nausea Verified 03/01/17 19:16 celecoxib AdvReac unknown Verified 03/01/17 19:16 diphenhydramine AdvReac See Verified 03/01/17 19:16 [From Benadryl] Comments gabapentin AdvReac unknown Verified 03/01/17 19:16 Methadone AdvReac See Verified 03/01/17 19:16 Comments mirtazapine AdvReac unknown Verified 03/01/17 19:16 morphine AdvReac See Verified 03/01/17 19:16 Comments tramadol AdvReac unknown Verified 02/03/17 21:00 vancomycin AdvReac unknown Verified 02/03/17 21:00 Procedures/tests Complete & Pending: Procedures Performed prior 72 hours Category Date Time Status US liver [US] Routine Exams 03/02/17 11:00 Completed VQ Scan [NM pul vent and perfuse] [NM] Routine Exams 03/02/17 09:16 Completed Date of admission: 03/02/17 00:27 Primary care physician: PCP EUGENIO Consults: 03/02/17 08:56 Consult to Gastroenterology [CONS] Routine Consulting Provider: Gastroenterology Elizabeth Reason for Consult: History of LGIB, presents with BRBPR Call Completed: Yes Discharging clinician: Johan Wiley - Patient Status Disposition: Home, Self-Care Condition: Good Functional capacity at discharge: independent ambulation - Discharge Instructions [facility] - 03/11/17 10:00 am Forms: ED Satisfaction Letter Additional Instructions: Follow-up with gastroenterology in 2 weeks - Diet and Activity Activity: increase activity as tolerated Diet: advance to your usual diet Interval History: Mr. Ramirez is a 67 year old male Mr. Ramirez with PMHx of Polysubstance abuse, IDDM, non-alcoholic liver cirrhosis, dCHF (LVEF 60% with moderate diastolic dysfunction per echo on 10/28/16), CKD III, history of adrenal insufficiency, history of PE currently on Xarelto, COPD, CAD, HLD, HTN, TIA, Pancytopenia He was being managed at the [facility] for SOB and PTSD, he was transferred to [facility] for management of rectal bleed and hyperglycemia He has a known history of hemorrhoids and has been having bright red dripping following BM during the day yesterday prior to transfer. No hematemesis, no hematuria, no melena. He is on Xarelto for PE He has no new symptoms at this time Patient is known to be drug-seeking and has received dilaudidX2 from ER. I do not see an objective cause of his RUQ pain at this time as his exam is unremarkable for acute abdomen, his abd CT was unremarkable, and he was not receiving any medications while he was in the Psych unit at the [facility], there is no indication for IV opiates at this time His work up is at baseline except a positive stool occult blood Hospital course: He was monitored for further bleeding. Patient did not have any gross bloody stools. Hemoglobin remained at baseline. He was hemodynamically stable. A colonoscopy was done and showed mild inflammation in the rectum, otherwise was unremarkable. He was discharged home in stable condition. - Time Spent with Patient Total time spent providing and/or coordinating discharge services: - Constitutional Vitals: Temp Pulse Resp BP Pulse Ox 97.3 F L 77 16 119/69 94 03/04/17 15:56 03/04/17 15:56 03/04/17 15:56 03/04/17 15:56 03/04/17 15:56 General appearance: Present: A&O X 3, no acute distress, answers questions appropriately - Respiratory Respiratory exam: Present: CTAB. Absent: accessory muscle use, rales, rhonchi, wheezes - Cardiovascular Cardiovascular exam: Present: RRR, +S1, +S2. Absent: diastolic murmur, gallop, rubs, systolic murmur - GI/Abdominal GI/Abdominal exam: Present: normal bowel sounds, soft, no peritoneal signs. Absent: distended, tenderness
[2017-03-04] MEDS: RisperiDAL 3 MG TABLET PO SCH (21:42)
[2017-03-04] MEDS: Melatonin 3 MG TABLET PO SCH (21:42)
[2017-03-04] MEDS: Cyprohepatdine 4 MG TABLET PO SCH (21:42)
[2017-03-05] MEDS: *HR* OxyCODONE Immed Rel 5 MG TABLET PO PRN ×2 (04:18→12:09)
[2017-03-05] MEDS: Insulin LISPRO 300 UNITS/3 ML VIAL SQ SCH ×4 (08:17→12:10)
[2017-03-05] MEDS: Insulin DETEMIR 100 UNIT/ML X5UNITS SQ SCH (08:18)
[2017-03-05] MEDS: Cholecalciferol (D-3) 1,000 UNIT TABLET PO SCH (08:19)
[2017-03-05] MEDS: Lactulose Oral Soln 20 GM/30 ML UDC PO SCH (08:19)
[2017-03-05] MEDS: Furosemide 40 MG TABLET PO SCH (08:19)
[2017-03-05 11:08] VITALS: BP 138/70
--- NOTE | 2017-03-06 07:01 | Internal Med Progress Note ---
Date of Encounter: 03/05/17 Time of Encounter: 08:30 - Assessment and plan (1) GI bleed Status: Acute Assessment and plan: Resolved Qualifiers: GI bleed type/associated pathology: anorectal hemorrhage Qualified Code(s) : K62.5 - Hemorrhage of anus and rectum (2) Abdominal pain Status: Chronic Assessment and plan: Objectively there is no source of pain. On physical exam, abdomen is soft and non-distended with no peritoneal signs, and he is non toxic in appearance. There is voluntary guarding. Could be from colitis/UC. Will follow-up post colonoscopy. Best to avoid IV pain medication and preferred if we can reduce PO medication to avoid GI side effects/ constipation. Qualifiers: Abdominal location: generalized Qualified Code(s): R10.84 - Generalized abdominal pain (3) CAD (coronary artery disease) Status: Chronic Assessment and plan: AC currently held because of bleeding Qualifiers: Coronary Disease-Associated Artery/Lesion type: [place] artery [place] vs. transplanted heart: [place] heart Associated angina: without angina Qualified Code(s): I25.10 - Atherosclerotic heart disease of [place] coronary artery without angina pectoris (4) CHF (congestive heart failure) Status: Chronic Assessment and plan: On BIBIANA inhibitor and spironolactone Qualifiers: Congestive heart failure type: diastolic Congestive heart failure chronicity: chronic Qualified Code(s): I50.32 - Chronic diastolic (congestive ) heart failure (5) Chronic obstructive pulmonary disease Status: Chronic Assessment and plan: aerosol treatments as needed Qualifiers: COPD type: chronic bronchitis Chronic bronchitis type: unspecified Qualified Code(s): J42 - Unspecified chronic bronchitis (6) Cirrhosis of liver Status: Chronic Assessment and plan: Stable Qualifiers: Hepatic cirrhosis type: unspecified hepatic cirrhosis Ascites presence: without ascites Qualified Code(s): K74.60 - Unspecified cirrhosis of liver (7) Hx of drug abuse Status: Chronic Assessment and plan: Would like to decrease opiate use to avoid addiction and seeking. Discussed this extensively with patient. - Subjective Interval history: No hematochezia, melena, CP, SOB, N/V. - Constitutional Vitals: Temp Pulse Resp BP Pulse Ox 97.9 F 84 18 138/70 96 03/05/17 11:07 03/05/17 11:07 03/05/17 11:07 03/05/17 11:07 03/05/17 11:07 General appearance: Present: A&O X 3, no acute distress, answers questions appropriately - Neck Neck exam general surgery: Present: supple, trachea midline. Absent: lymphadenopathy - Respiratory Respiratory exam: Present: CTAB. Absent: accessory muscle use, rales, rhonchi, wheezes - Cardiovascular Cardiovascular exam: Present: RRR, +S1, +S2. Absent: diastolic murmur, gallop, rubs, systolic murmur - GI/Abdominal GI/Abdominal exam: Present: normal bowel sounds, soft, no peritoneal signs. Absent: distended, tenderness Internal Medicine: Result - Labs CBC & Chem 7: 03/04/17 05:03 03/04/17 05:03 - ABG Interpretation ABG results: PT/INR, D-dimer PT 16.1 Seconds (9.4-12.1) H 03/01/17 22:24 Consult Discharge Plan - Plan Instructions: Heart Failure (DC), Urinary Tract Infection in Men (DC), Syncope (DC), Diabetes Mellitus Type 2 in Adults (DC), Chronic Obstructive Pulmonary Disease (DC), Chronic Hypertension (DC), Anemia (GEN), Anxiety (DC) Additional Instructions: Follow-up with gastroenterology in 2 weeks [facility]errals: [facility] [Primary Care Provider[facility] - 03/11/17 10:00 am eMlo Santana MD [Partnered Physician] - 03/18/17 2:40 pm
== END 2017-03-05 15:10 | disposition home or self-care (01) | DRG 378 ==
LOC: EMEROO 18:14 → 2ANU 18:14 → OBSVTOIN 03-02 00:27 → SUATTDRO 03-02 00:27 → 2ANU 03-02 00:47
PROVIDERS: ADMIT Internal Medicine; ATTEND Student in an Organized Health Care Education/Training Program

== ENCOUNTER 2017-03-26 18:13 | Inpatient (IN) ==
[2017-03-26] MEDS ORDERED: Ipratropium/Albuterol Neb 3 ML IH ONE (18:17)
[2017-03-26] MEDS ORDERED: methylPREDNISolone 125 MG/2 ML VIAL IVP ONE (18:17)
--- NOTE | 2017-03-26 18:21 | Emergency Department Note ---
Disposition Clinical Impression: Acute exacerbation of chronic obstructive airways disease Community acquired pneumonia Qualifiers: Laterality: unspecified laterality Qualified Code(s): J18.9 - Pneumonia, unspecified organism Disposition: Admitted As Inpatient Condition: Fair [facility]errals: [facility]Primary Care Provider[facility] - Forms: ED Satisfaction Letter Time of Disposition: 19:35 SOB HPI - General Chief Complaint: ED Shortness of Breath/Dyspnea Stated Complaint: MARCIAL Time Seen by Provider: 03/26/17 18:16 Source: patient, EMS Mode of arrival: EMS Limitations: no limitations Nursing Notes Reviewed: Yes Vital Signs Reviewed: Yes - History of Present Illness 67-year-old with a history of COPD comes in complaining of increasing shortness of breath today. Patient states he hasn't felt well today. Pt Subjective Complaint: shortness of breath Onset (ago): [employer] Context: recent illness Severity: moderate Consistency/Duration: constant Improves with: nothing Worsens with: exertion Known history of: COPD Associated symptoms: Reports: cough, wheezing Treatment prior to arrival: oxygen, bronchodilator Cough present: Yes Cough Description: Involuntary Cough Frequency: Intermittent - Related Data Home Medications Medication Instructions Recorded Confirmed Cholecalciferol (Vitamin D3) 2,000 unit PO DAILY 05/13/15 03/02/17 [Vitamin D] Insulin ASPART [NovoLOG] 25 unit SQ TIDWM 05/13/15 03/02/17 Aspirin Enteric Coated [Aspirin EC] 81 mg PO DAILY 11/13/15 03/02/17 Atorvastatin [Lipitor] 40 mg PO HS 11/13/15 03/02/17 Insulin Glargine,Hum.rec.anlog 55 unit SQ BID 11/13/15 03/02/17 [Lantus Solostar] Lactulose 15 gm PO BID 11/13/15 03/02/17 Omeprazole [PriLOSEC] 20 mg PO DAILY 11/13/15 03/02/17 Tamsulosin [Flomax] 0.4 mg PO DAILY 11/13/15 03/02/17 Furosemide [Lasix] 40 mg PO DAILY 05/16/16 03/02/17 Rivaroxaban [Xarelto] 10 mg PO DAILY 05/16/16 03/02/17 risperiDONE [Risperdal] 3 mg PO HS 05/16/16 03/02/17 Atenolol [Tenormin] 50 mg PO DAILY 05/29/16 03/02/17 Ipratropium/Albuterol Neb [Duoneb] 3 ml IH QID 08/10/16 03/02/17 Sertraline [Zoloft] 100 mg PO HS 10/27/16 03/02/17 Spironolactone [Aldactone] 50 mg PO DAILY 10/27/16 03/02/17 Cyprohepatdine [Periactin] 4 mg PO HS 01/26/17 03/02/17 Buprenorphine HCl/Naloxone HCl 2 tab SL BID 01/27/17 03/02/17 [Buprenorphin-Naloxon 8-2 mg Sl] Lisinopril 2.5 mg PO HS 02/03/17 03/02/17 Melatonin [Melatin] 9 mg PO HS 02/03/17 03/02/17 glipiZIDE [Glipizide] 10 mg PO BID 03/02/17 03/02/17 Previous Rx's Medication Instructions Recorded Magnesium Oxide [Mag-Ox] 400 mg PO DAILY #30 tab 02/01/17 Allergies Allergy/AdvReac Type Severity Reaction Status Date / Time Iodinated Contrast- Oral and Allergy Difficulty Verified 03/01/17 19:16 IV Dye Breathing ketorolac [From Toradol] Allergy Nausea Verified 03/01/17 19:16 Penicillins Allergy Rash Verified 03/01/17 19:16 butorphanol [From Stadol] AdvReac Nausea Verified 03/01/17 19:16 celecoxib AdvReac unknown Verified 03/01/17 19:16 diphenhydramine AdvReac See Verified 03/01/17 19:16 [From Benadryl] Comments gabapentin AdvReac unknown Verified 03/01/17 19:16 Methadone AdvReac See Verified 03/01/17 19:16 Comments mirtazapine AdvReac unknown Verified 03/01/17 19:16 morphine AdvReac See Verified 03/01/17 19:16 Comments tramadol AdvReac unknown Verified 02/03/17 21:00 vancomycin AdvReac unknown Verified 02/03/17 21:00 All systems ED: reviewed and negative except as stated. Constitutional: Denies: fever, chills, weakness, weight change Eyes: Denies: eye pain, eye discharge, vision change ENT ED: Denies: ear pain, throat pain, dental pain, hearing loss, epistaxis, congestion, dysphagia Cardiovascular: Denies: chest pain, palpitations, dyspnea on exertion, edema, syncope Respiratory: Reports: cough, dyspnea, wheezes. Denies: hemoptysis, stridor Gastrointestinal: Denies: abdominal pain, nausea, vomiting, diarrhea, constipation, hematemesis, melena, hematochezia Genitourinary: Denies: urgency, dysuria, frequency, hematuria Musculoskeletal: Denies: back pain, neck pain, arthralgia, myalgia Integumentary: Denies: rash, abrasion, lesions Neurological: Denies: headache, weakness, numbness, paresthesias, confusion, abnormal gait, vertigo Psychiatric: Denies: anxiety, depression, suicidal thoughts, homicidal thoughts , auditory hallucinations, visual hallucinations Endocrine: Denies: fatigue Hematological/Lymphatic: Denies: easy bleeding, easy bruising Allergic/Immunologic: Denies: facial swelling, urticaria Past Medical History - Past Medical History Medical history: Reports: arthritis, cirrhosis, CHF, COPD, coronary artery disease, diabetes, GERD, hyperlipidemia, hypertension, liver disease, osteoporosis, TIA Surgical history: Reports: appendectomy, cholecystectomy, herniorrhaphy, knee replacement, other Psychiatric history: Reports: anxiety, depression, panic disorder, PTSD, previous psychiatric hospitalization - Social History Smoking Status: Never smoker Smokeless Tobacco Status: No Alcohol use: Reports: none Drug use: Reports: none Physical Exam - General Limitations: no limitations General appearance: alert, in no apparent distress - Head Head exam: atraumatic, normocephalic, normal inspection - Eye Eye exam: Present: normal appearance, PERRL, EOMI - ENT ENT exam: normal exam, normal oropharynx, mucous membranes moist - Neck Neck exam: Present: normal inspection, full ROM, trachea midline - Chest Chest inspection: Present: normal inspection, symmetric chest wall rise - Respiratory Respiratory exam: Present: wheezes, prolonged expiratory phase - Cardiovascular Cardiovascular exam: Present: regular rate, normal rhythm, normal heart sounds - Abdominal Exam Abdominal exam: Present: soft, Non-Tender. Absent: tenderness, distention, guarding, rebound, rigidity - Extremities Exam Extremities exam: Present: normal inspection, full ROM. Absent: tenderness, pedal edema - Expanded Lower Extremity Exam Neurovascular/Tendon exam: Absent: motor deficit, sensory deficit, tendon deficit Gait: not tested/not observed - Back Exam Back exam: Present: normal inspection, full ROM. Absent: tenderness - Neurological Exam Neurological exam: Present: alert, oriented X3 - Psychiatric Psychiatric exam: Present: normal affect, normal mood - Skin Skin exam: Present: warm, dry, intact, normal color Course - Reevaluation(s) Reevaluation #1: 67-year-old with increasing shortness of breath for the last couple of days. Workup included some congestive changes versus pneumonia on the chest x-ray, normal white count, elevated lactate, d-dimer at 219. Patient was given Lasix and antibiotics. Patient will be admitted. Time: 19:35 - Consultations Consultation #1: Discussed with Dr. Carrero, admit. Time: 19:59 Vital Signs Temperature 98.9 F 03/26/17 18:15 Pulse Rate 96 03/26/17 18:15 Respiratory Rate 24 03/26/17 18:15 Blood Pressure 111/61 03/26/17 18:15 O2 Sat by Pulse Oximetry 97 03/26/17 18:15 Temperature 98.9 F 03/26/17 18:15 Pulse Rate 94 03/26/17 18:54 Respiratory Rate 22 03/26/17 18:54 Blood Pressure 109/61 03/26/17 18:54 O2 Sat by Pulse Oximetry 100 03/26/17 18:54 Oxygen Delivery Oxygen Delivery Room Air Shortness of Breath/Dyspnea - Lab Data Result diagrams: 03/26/17 18:41 03/26/17 18:41 Lab Results 03/26/17 03/26/17 03/26/17 Range/Units 18:41 18:41 18:41 WBC 4.2 L (4.3-11.1) K/mcL RBC 3.04 L (4.19-5.50) M/mcL Hgb 8.5 L (12.9-16.9) g/dL Hct 26.3 L (37.5-50.1) % MCV 86.5 (83.0-100.0) fL MCH 28.0 (28.0-33.3) pg MCHC 32.3 (31.6-35.5) g/dL RDW 14.6 H (11.5-14.5) % Plt Count 62 L (140-400) K/mcL MPV 11.8 (9.4-12.4) fL Immature Gran % 0.5 (0-4) % Seg Neutrophils % 64.8 % Lymphocytes % 23.6 % Monocytes % 8.2 % Eosinophils % 2.4 % Basophils % 0.5 % Neutrophils # 2.7 (1.6-8.9) K/mcL Lymphocytes # 1.0 (0.6-4.6) K/mcL Monocytes # 0.3 (0.0-1.3) K/mcL Eosinophils # 0.1 (0.0-0.6) K/mcL Basophils # 0.0 (0.0-0.2) K/mcL Platelet Estimate Decreased L (Normal) Sodium 133 L (136-145) mEq/L Potassium 4.1 (3.5-4.5) mEq/L Chloride 104 (98-109) mEq/L Carbon Dioxide 22 (19-29) mEq/L BUN 14 (8-26) mg/dL Creatinine 1.29 H (0.72-1.25) mg/dL Est GFR ( Amer) > 60 (> 60) Est GFR (Non-Af Amer) 56 L (> 60) BUN/Creatinine Ratio 11 (6-26) Glucose 400 H (70-99) mg/dL Calculated Osmolality 293 (280-300) Lactic Acid 2.9 H (0.5-2.2) mmol/L Calcium 8.2 L (8.6-10.8) mg/dL Troponin I (0-0.03) ng/mL B-Natriuretic Peptide (0-100) pg/mL 03/26/17 03/26/17 Range/Units 18:41 18:41 WBC (4.3-11.1) K/mcL RBC (4.19-5.50) M/mcL Hgb (12.9-16.9) g/dL Hct (37.5-50.1) % MCV (83.0-100.0) fL MCH (28.0-33.3) pg MCHC (31.6-35.5) g/dL RDW (11.5-14.5) % Plt Count (140-400) K/mcL MPV (9.4-12.4) fL Immature Gran % (0-4) % Seg Neutrophils % % Lymphocytes % % Monocytes % % Eosinophils % % Basophils % % Neutrophils # (1.6-8.9) K/mcL Lymphocytes # (0.6-4.6) K/mcL Monocytes # (0.0-1.3) K/mcL Eosinophils # (0.0-0.6) K/mcL Basophils # (0.0-0.2) K/mcL Platelet Estimate (Normal) Sodium (136-145) mEq/L Potassium (3.5-4.5) mEq/L Chloride (98-109) mEq/L Carbon Dioxide (19-29) mEq/L BUN (8-26) mg/dL Creatinine (0.72-1.25) mg/dL Est GFR ( Amer) (> 60) Est GFR (Non-Af Amer) (> 60) BUN/Creatinine Ratio (6-26) Glucose (70-99) mg/dL Calculated Osmolality (280-300) Lactic Acid (0.5-2.2) mmol/L Calcium (8.6-10.8) mg/dL Troponin I 0.00 (0-0.03) ng/mL B-Natriuretic Peptide 219 H (0-100) pg/mL - Radiology Data Radiology results reviewed: Yes I reviewed the patient's radiology results. Chest X-Ray 03/26/17 18:17 IMPRESSION: Findings as above concerning for multifocal pneumonia or edema. D/ / Alba Conn MD / Alba Conn MD Interpreting Provider: Alba Conn MD - EKG Data EKG attestation: Yes I reviewed and interpreted this EKG. EKG shows normal: Reports: sinus rhythm Rate: Reports: normal Rhythm: Reports: NSR Interpretation: Reports: no acute changes
[2017-03-26] MEDS ORDERED: Furosemide 40 MG/4 ML VIAL IVP ONE (18:24)
[2017-03-26 18:54] LABS: Hematocrit 26.3 % (37.5-50.1); Hemoglobin 8.5 g/dL (12.9-16.9); Mean Corpuscular HGB Conc 32.3 g/dL (31.6-35.5); Mean Corpuscular Volume 86.5 fL (83.0-100.0); Mean Platelet Volume 11.8 fL (9.4-12.4); Red Blood Count 3.04 M/mcL (4.19-5.50); Red Cell Distribution Width 14.6 % (11.5-14.5); Segmented Neutrophils % 64.8 %
[2017-03-26 18:55] LABS: Basophils % 0.5 %; Eosinophils # 0.1 K/mcL (0.0-0.6); Eosinophils % 2.4 %; Immature Granulocytes % 0.5 % (0-4); Lymphocytes % 23.6 %; Monocytes # 0.3 K/mcL (0.0-1.3); Monocytes % 8.2 %; Neutrophils # 2.7 K/mcL (1.6-8.9)
[2017-03-26 18:56] LABS: Platelet Count 62 K/mcL (140-400)
[2017-03-26 19:07] LABS: BUN/Creatinine Ratio 11 (6-26); Blood Urea Nitrogen 14 mg/dL (8-26); Calcium 8.2 mg/dL (8.6-10.8); Carbon Dioxide 22 mEq/L (19-29); Chloride 104 mEq/L (98-109); Glucose 400 mg/dL (70-99); Osmolality,Calculated 293 (280-300); Potassium 4.1 mEq/L (3.5-4.5); Sodium 133 mEq/L (136-145); eGFR For African Americans > 60 (> 60); eGFR For Non-African Americans 56 (> 60)
[2017-03-26 19:26] LABS: Platelet Estimate Decreased (Normal)
[2017-03-26] MEDS ORDERED: Levofloxacin 750 MG/150 ML 750 MG/150 ML BAG IVPB ONE (19:32)
--- NOTE | 2017-03-26 22:42 | Internal Med History&Physical ---
Date of Encounter: 03/27/17 Time of Encounter: 22:42 Assessment and Plan (1) Sepsis Current visit: Yes Status: Acute Met 2 SIRS criteria tachycardia HR 96 and tachypnea RR 24 (WBC 4.2 in the setting of chronic pancytopenia) Lactic acid 2.9 --> 2.2 Blood, sputum, and urine cultures pending Started on Levaquin in the ED. Continue Levaquin and Aztreonam Blood and sputum cultures pending Sepsis bolus not given due to acute exacerbation of CHF Qualifiers: Sepsis type: sepsis due to unspecified organism Qualified Code(s): A41.9 - Sepsis, unspecified organism (2) HAP (hospital-acquired pneumonia) Current visit: Yes Status: Acute CXR revealed multifocal pneumonia and pulmonary edema. He is allergic to PCN and Vanc Started on Levaquin in the ED. Continue Levaquin and Aztreonam Blood and sputum cultures pending Continue incentive spirometry, Mucinex, and Duonebs (3) Acute exacerbation of chronic obstructive airways disease Current visit: Yes Status: Acute Continue steroids, antibiotics, and Duonebs (4) Acute respiratory failure with hypoxia Current visit: Yes Status: Acute Pateint very somnolent during time of exam. He is abusable on command, but quickly dozed off to sleep after finishing a sentence. His SpO2 was only 89% on RA and AGB revealed a pO2 level of 42. Patient reports that he has severe claustrophobia and is not able to wear a CPAP or BiPap mask. Consider 6-minute walk test to evaluate need for home O2 prior to discharge (5) Diastolic CHF with preserved left ventricular function, NYHA class 2 Current visit: Yes Status: Chronic Acute on chronic diastolic CHF Echo 10/28/16 revealed LVEF 60% and evidence of moderate diastolic dysfunction of the left ventricle. BNP 231, rales on exam, 2+ leg edema Serial troponins negative x2 CXR revealed multifocal pneumonia and pulmonary edema. Fluid restrictions Lasix (6) Acute kidney injury superimposed on CKD Current visit: No Status: Acute IVF not given due to acute CHF exacerbation (7) Colitis Current visit: No Status: Acute CT abd/plv reveals mild stranding surrounding the cecum which is concerning for mild focal colitis of undetermined etiology, poorly evaluated on noncontrast exam. Patient denies diarrhea Consider CT with contrast if further concern for colitis Continue antibiotics (8) Cirrhosis of liver Current visit: No Status: Chronic Ammonia level 44 CT abd/plv reveals cirrhotic appearing liver with splenomegaly Qualifiers: Hepatic cirrhosis type: unspecified hepatic cirrhosis Ascites presence: without ascites Qualified Code(s): K74.60 - Unspecified cirrhosis of liver (9) Pancytopenia Current visit: No Status: Acute Chronic pamncytopenia CT abd/plv reveals splenomegaly Continue to monitor (10) DM2 (diabetes mellitus, type 2) Current visit: No Status: Chronic HGB a1c 8.9 01/26/17 Continue insulin regimen and accuchecks Qualifiers: Diabetes mellitus complication status: with hyperglycemia Diabetes mellitus long-term insulin use: with long-term use Qualified Code(s): E11.65 - Type 2 diabetes mellitus with hyperglycemia; Z79.4 - FPC (current) use of insulin (11) CAD (coronary artery disease), [place] coronary artery Current visit: No Status: Chronic Continue home meds Qualifiers: [place] vs. transplanted heart: [place] heart Associated angina: angina presence unspecified Qualified Code(s): I25.10 - Atherosclerotic heart disease of [place] coronary artery without angina pectoris (12) Essential hypertension Current visit: No Status: Chronic Continue home meds (13) Hyperlipidemia Current visit: No Status: Chronic Continue home meds Qualifiers: Hyperlipidemia type: mixed hyperlipidemia Qualified Code(s): E78.2 - Mixed hyperlipidemia (14) Hypomagnesemia Current visit: Yes Status: Acute Supplement mag Continue to monitor (15) Hypophosphatemia Current visit: Yes Status: Acute Supplement phos Continue to monitor (16) Obesity (BMI 30-39.9) Current visit: No Status: Chronic Discuss diet modification and exercise (17) DVT prophylaxis Current visit: Yes Status: Acute Resume home [facility] Internal Medicine - H&P: HPI Chief complaint: SOB Admitted From: Home ([facility]itent[facility]) History of present illness: Mr. Ramirez is a 67 year old male with a PMH of cirrhosis, CHF, COPD, CAD, DM Type 2, HTN, HLD, GERD, and obesity who presented from a [facility] c/o increased SOB, productive cough, and wheezing today. SOB is constant and worse with exertion. He also reports right flank pain and appears very somnolent during time of exam. He is abusable on command, but quickly dozed off to sleep after finishing a sentence. His SpO2 was only 89% on RA and AGB revealed a pO2 level of 42. Patient reports that he has severe claustrophobia and is not able to wear a CPAP or BiPap mask. In the ED, labs revealed WBC 4.2, lactic acid 2.2, BNP 231. CXR revealed multifocal pneumonia and pulmonary edema. He is allergic to PCN and Vanc. Patient was started on Levaquin in the ED. Past Med Surg Social Fam HX - Past Medical History Medical history: arthritis, cirrhosis, CHF, COPD, coronary artery disease, diabetes, GERD, hyperlipidemia, hypertension, liver disease, osteoporosis, TIA Psychiatric history: anxiety, depression, panic disorder, PTSD, previous psychiatric hospitalization - Past Surgical History Surgical History: appendectomy, cholecystectomy, herniorrhaphy, knee replacement , other - Social History Smoking Status: Never smoker Smokeless Tobacco Status: No Alcohol use: none Drug use: none - Family History Mother Adopted: No Living Status: Hx Family Cancer: Yes Hx Family Endocrine Disorder: Yes (DM2) Father Living Status: Hx Family Cardiac Disorders: No Internal Medicine - H&P: Meds Cholecalciferol (Vitamin D3) [Vitamin D] 2,000 unit PO DAILY 05/13/15 [History] Insulin ASPART [NovoLOG] 25 unit SQ TIDWM 05/13/15 [History] Aspirin Enteric Coated [Aspirin EC] 81 mg PO DAILY 11/13/15 [History] Atorvastatin [Lipitor] 40 mg PO HS 11/13/15 [History] Insulin Glargine,Hum.rec.anlog [Lantus Solostar] 55 unit SQ BID 11/13/15 [ History] Lactulose 15 gm PO BID 11/13/15 [History] Omeprazole [PriLOSEC] 20 mg PO DAILY 11/13/15 [History] Tamsulosin [Flomax] 0.4 mg PO DAILY 11/13/15 [History] Furosemide [Lasix] 40 mg PO DAILY 05/16/16 [History] Rivaroxaban [Xarelto] 10 mg PO DAILY 05/16/16 [History] risperiDONE [Risperdal] 3 mg PO HS 05/16/16 [History] Atenolol [Tenormin] 50 mg PO DAILY 05/29/16 [History] Ipratropium/Albuterol Neb [Duoneb] 3 ml IH QID 08/10/16 [History] Sertraline [Zoloft] 100 mg PO HS 10/27/16 [History] Spironolactone [Aldactone] 50 mg PO DAILY 10/27/16 [History] Cyprohepatdine [Periactin] 4 mg PO HS 01/26/17 [History] Buprenorphine HCl/Naloxone HCl [Buprenorphin-Naloxon 8-2 mg Sl] 2 tab SL BID [History] Magnesium Oxide [Mag-Ox] 400 mg PO DAILY #30 tab 02/01/17 [Rx] Lisinopril 2.5 mg PO HS 02/03/17 [History] Melatonin [Melatin] 9 mg PO HS 02/03/17 [History] glipiZIDE [Glipizide] 10 mg PO BID 03/02/17 [History] 3 Allergy/AdvReac Type Severity Reaction Status Date / Time Iodinated Contrast- Oral and Allergy Difficulty Verified 03/01/17 19:16 IV Dye Breathing ketorolac [From Toradol] Allergy Nausea Verified 03/01/17 19:16 Penicillins Allergy Rash Verified 03/01/17 19:16 butorphanol [From Stadol] AdvReac Nausea Verified 03/01/17 19:16 celecoxib AdvReac unknown Verified 03/01/17 19:16 diphenhydramine AdvReac See Verified 03/01/17 19:16 [From Benadryl] Comments gabapentin AdvReac unknown Verified 03/01/17 19:16 Methadone AdvReac See Verified 03/01/17 19:16 Comments mirtazapine AdvReac unknown Verified 03/01/17 19:16 morphine AdvReac See Verified 03/01/17 19:16 Comments tramadol AdvReac unknown Verified 02/03/17 21:00 vancomycin AdvReac unknown Verified 02/03/17 21:00 All Systems PM: A 10-system review of systems was performed and is negative for pertinent findings except as documented above in the HPI. - Constitutional Constitutional: fatigue, lethargy, weight gain, no chills, no fever(s), no weakness, no weight loss - EENT Eyes: no change in vision Nose, mouth and throat: no nasal congestion, no sinus pressure - Cardiovascular Cardiovascular ROS IM: palpitations, no chest pain - Respiratory Respiratory: cough, dyspnea, dyspnea on exertion, wheezing, excessive phlegm production, change in phlegm color - Gastrointestinal Gastrointestinal: abdominal pain (r flank), no constipation, no diarrhea, no nausea, no vomiting - Genitourinary Genitourinary ROS male: no dysuria, no urinary frequency, no urinary urgency - Musculoskeletal Musculoskeletal ROS IM: no atrophy, no limited range of motion, no numbness, no tingling - Integumentary Integumentary IM: no erythema, no rash, no jaundice - Neurological Neurological ROS: no frequent falls, no headache(s), no numbness, no tingling, no tremor(s), no weakness - Psychiatric Psychiatric: no anxiety, no depression - Endocrine Endocrine IM: no polydipsia, no polyphagia, no polyuria - Constitutional Vitals: Temp Pulse Resp BP Pulse Ox 97.7 F 93 14 144/76 93 03/26/17 21:15 03/26/17 21:15 03/26/17 21:15 03/26/17 21:15 03/26/17 21:15 General appearance: Present: no acute distress, obese Exam: very somnolent, abusable on command, but quickly dozed off to sleep after finishing a sentence - Head Head exam: Present: atraumatic, normal inspection, normocephalic - Eye Eye exam: Present: EOMI, PERRL - ENT ENT exam: Present: mucous membranes moist, normal oropharynx - Neck Neck exam general surgery: Present: normal inspection, supple. Absent: tenderness - Respiratory Respiratory exam: Present: decreased breath sounds (bibasilar), rales, tachypnea. Absent: accessory muscle use, respiratory distress - Cardiovascular Cardiovascular exam: Present: RRR, +S1, +S2 - GI/Abdominal GI/Abdominal exam: Present: distended, hypoactive bowel sounds, soft, tenderness (RLQ, R flank). Absent: guarding - Extremities Exam Extremities exam: Present: normal capillary refill, pedal edema (2+), warm - Back Exam Back exam: Present: CVA tenderness (R), normal inspection, tenderness - Neurological Exam Neurological exam: Present: no focal deficits. Absent: speech deficit Additional comments: somnolent, lethargic, protecting airway - Expanded Neurological Exam Coma Scale Eye Opening: To Voice Coma Scale Motor Response: Obeys Commands Coma Scale Verbal Response: Oriented Coma Scale Total: 14 - Psychiatric Psychiatric exam: Present: flat affect, normal mood - Skin Skin exam: Present: dry, warm. Absent: rash Internal Med - H&P Results - Labs CBC & Chem 7: 03/26/17 18:41 03/27/17 00:43 - Pulse Oximetry Interpretation Digit-Finger O2 Sat by Pulse Oximetry: 89 (RA) Actions taken: placed on BiPAP (patient refused) - EKG Data -: EKG Interpreted by Myself - Impressions Impressions Chest X-Ray 03/26/17 18:17 IMPRESSION: Findings as above concerning for multifocal pneumonia or edema. D/ / Alba Conn MD / Alba Conn MD Interpreting Provider: Alba Conn MD Abdomen/Pelvis CT 03/27/17 23:43 IMPRESSION: There is mild stranding surrounding the cecum which is concerning for mild focal colitis of undetermined etiology, poorly evaluated on noncontrast exam. No evidence of nephrolithiasis or hydronephrosis. Stable lymphadenopathy. Cirrhotic appearing liver with splenomegaly. D/ / Annika Gallagher MD / Annika Gallagher MD Interpreting Provider: Annika Gallagher MD
[2017-03-26] MEDS ORDERED: Dextrose Gel 15 GM PO PRN ×2 (23:37)
[2017-03-26] MEDS ORDERED: D5% in Water 1,000 ML IVC PRN (23:37)
[2017-03-26] MEDS ORDERED: *HR* Dextrose 50 % in Water (Syg) 50 ML SYRINGE IVP PRN (23:37)
[2017-03-26] MEDS ORDERED: Insulin LISPRO 300 UNITS/3 ML VIAL SQ SCH (23:45)
[2017-03-26] MEDS ORDERED: Naloxone 0.4 MG/ML INJ IVP PRN (23:48)
[2017-03-26] MEDS ORDERED: Ondansetron 4 MG/2 ML VIAL IVP PRN (23:48)
[2017-03-26] MEDS ORDERED: *HR* Promethazine 25 MG/ML VIAL IVP PRN (23:48)
[2017-03-27] MEDS: Ipratropium/Albuterol Neb 3 ML IH SCH ×7 (00:40→23:50)
[2017-03-27 00:55] LABS: INR 1.5; Prothrombin Time 16.6 Seconds (9.4-12.1)
[2017-03-27 00:58] LABS: Activated Partial Thrombo Time 35.9 Seconds (26.0-36.0)
[2017-03-27 01:00] LABS: Magnesium 1.5 mg/dL (1.6-2.6); Phosphorous 1.9 mg/dL (2.3-4.7)
[2017-03-27 01:04] LABS: Albumin 3.2 g/dL (3.5-5.0); Albumin/Globulin Ratio 0.7 (1.1-2.2); Bilirubin,Direct 0.5 mg/dL (0.0-0.5); Bilirubin,Indirect 0.4 mg/dL (0.0-1.2); Bilirubin,Total 0.9 mg/dL (0.2-1.2); Calcium 8.8 mg/dL (8.6-10.8); Globulin 4.5 g/dL (2.4-3.5); Potassium 4.3 mEq/L (3.5-4.5); Total Protein 7.7 g/dL (6.0-8.3)
[2017-03-27 01:10] LABS: ABG Base Excess -1 mEq/L (-2 to 3); ABG HCO3 24 mEq/L (21-27); ABG Oxygen Saturation 77 % (95-98); ABG PCO2 39 mmHg (35-45); ABG PO2 42 mmHg (85-104); ABG TCO2 25 mEq/L (20-26); Blood Gas Modality RA
[2017-03-27] MEDS: Furosemide 40 MG/4 ML VIAL IVP SCH ×2 (01:12→08:57)
[2017-03-27] MEDS: Melatonin 3 MG TABLET PO SCH ×2 (01:16→21:39)
[2017-03-27] MEDS: RisperiDAL 3 MG TABLET PO SCH ×2 (01:16→21:37)
[2017-03-27] MEDS: Insulin DETEMIR 100 UNIT/ML X5UNITS SQ SCH ×3 (01:17→21:44)
[2017-03-27] MEDS: Lactulose Oral Soln 20 GM/30 ML UDC PO SCH ×3 (01:17→21:34)
[2017-03-27] MEDS: Aztreonam 2,000 MG in D5% in Water (Mini-Bag+) 100 ML IVPB SCH ×3 (01:18→17:32)
[2017-03-27 01:39] LABS: Bilirubin,Urine Negative (Negative); Blood,Urine Negative (Negative); Clarity,Urine Clear (Clear); Color,Urine Yellow (Yellow); Glucose,Urine (UA) >=1000 mg/dL (Normal); Ketones,Urine Negative (Negative); Leukocyte Esterase,Urine Negative (Negative); Nitrite,Urine Negative (Negative); Protein,Urine Negative (Neg-Trace); Specific Gravity,Urine 1.014 (1.010-1.025); Urobilinogen,Urine Normal (Normal)
[2017-03-27 01:45] LABS: Amphetamine Screen,Urine Negative ng/mL (Cutoff=1000); Barbiturate Screen,Urine Negative ng/mL (Cutoff=200); Benzodiazepines Screen,Urine Negative ng/mL (Cutoff=200); Cannabinoid Screen,Urine Negative ng/mL (Cutoff = 50); Cocaine Screen,Urine Negative ng/mL (Cutoff= 300); Opiate Screen,Urine Negative ng/mL (Cutoff=300); Phencyclidine Screen,Urine Negative ng/mL (Cutoff=25)
--- NOTE | 2017-03-27 04:28 | Event Note ---
Date of Encounter: 03/27/17 Time of Encounter: 04:28 Patient seen and examined with biomedical service engineer. Hypoxic respiratory failure YouTube CHF and COPD exacerbation. Patients refusing BiPAp unfortunately. Will start iv diuresis antibiotics follow response.
[2017-03-27] MEDS ORDERED: Magnesium Sulfate 2 GM in D5% in Water 100 ML IVPB ONE (05:33)
[2017-03-27] MEDS: MethylPREDNISolone 40 MG/ML VIAL IVP SCH ×2 (05:45→12:28)
[2017-03-27] MEDS ORDERED: Insulin LISPRO 300 UNITS/3 ML VIAL SQ SCH (08:00)
[2017-03-27] MEDS: Insulin LISPRO 300 UNITS/3 ML VIAL SQ SCH ×7 (08:53→21:43)
[2017-03-27] MEDS: Cholecalciferol (D-3) 1,000 UNIT TABLET PO SCH (08:56)
[2017-03-27] MEDS: Aspirin Enteric Coated 81 MG Tablet PO SCH (08:57)
[2017-03-27] MEDS: GuaiFENesin/Dextromethorphan TABLET PO SCH ×2 (08:57→21:36)
[2017-03-27] MEDS: *HR* Rivaroxaban 10 MG TABLET PO SCH (08:57)
[2017-03-27] MEDS: Magnesium Oxide 400 MG TABLET PO SCH (08:57)
[2017-03-27 11:52] LABS: Mixed Venous Blood pCO2 38 mmHg (44-46); Mixed Venous Blood pH 7.37 pH Units (7.34-7.36); Mixed Venous Blood pO2 128 mmHg (35-45)
[2017-03-27 11:57] LABS: Magnesium 2.1 mg/dL (1.6-2.6); Phosphorous 2.8 mg/dL (2.3-4.7)
[2017-03-27 14:32] LABS: Adenovirus Not Detected (Not Detect); Bordetella Pertussis Not Detected (Not Detect); Chlamydophila pneumoniae Not Detected (Not Detect); Coronavirus 229E Not Detected (Not Detect); Coronavirus HKU1 Not Detected (Not Detect); Coronavirus NL63 Not Detected (Not Detect); Coronavirus OC43 Not Detected (Not Detect); Human Metapneumovirus Not Detected (Not Detect); Human Rhinovirus/Enterovirus Not Detected (Not Detect); Influenza A Subtype 2009 H1 Not Detected (Not Detect); Influenza A Untypeable Not Detected (Not Detect); Influenza B Not Detected (Not Detect); Mycoplasma pneumoniae Not Detected (Not Detect); Parainfluenza Virus 1 Not Detected (Not Detect); Parainfluenza Virus 2 Not Detected (Not Detect); Parainfluenza Virus 3 Not Detected (Not Detect); Parainfluenza Virus 4 Not Detected (Not Detect); Respiratory Syncytial Virus Not Detected (Not Detect)
--- NOTE | 2017-03-27 15:41 | Internal Med Progress Note ---
Date of Encounter: 03/27/17 Time of Encounter: 09:00 - Assessment and plan (1) Acute exacerbation of chronic obstructive airways disease Current Visit: Yes Status: Acute Assessment and plan: Teddy Ramirez is a 67-year-old male with past medical history COPD, CAD, cirrhosis, diabetes, diastolic CHF and morbid obesity who presented to [place] [facility] [place] with complaints of shortness of breath. He was found to have pneumonia and colitis. He was admitted for IV ATB and further workup and treatment. 1. Acute respiratory failure with hypoxia: somnolent on admission. Has underlying COPD and pneumonia. ABG revealed a pO2 level of 42. Patient reports he has severe claustrophobia and refusing to wear a CPAP or BiPap mask. Spoke to patient at length on 03/27 and strongly encouraged BiPAP. He is agreeable to try at at bedtime but refusing at this time. Wean steroids. Closely monitor respiratory status. Patient is okay with intubation if needed however continues to refuse BiPAP. 2.Acute encephalopathy: With persistent drowsiness. Patient will respond easily when spoken to but quickly falls back asleep. ABG with PCO2 39, ammonia level normal, urine drug screen negative. Multifactorial with acute illness. However also concern for CO2 retention. Previous ABG possibly next. Repeat ABG. 2. Hospital-acquired pneumonia: CXR revealed multifocal pneumonia. Allergy to PCN and Vancomycin. WBC 8, afebrile. Urinary antigens and respiratory PCR negative. Continue Levaquin and Aztreonam. Continue incentive spirometry, Mucinex, and Duonebs. De-escalate ATVs as cultures finalize and/or patient clinically improves. 3. Colitis: Non-contrast abdominal CT with mild stranding around cecum, concerning for focal colitis. Patient denies abdominal pain, no loose stool. Unable to have contrast due to renal function at this time. Continue Levaquin add Flagyl. 4. MJ: Cr 1.2 on admission and elevated to 1.5 on 03/27. Per chart review, patient has had intermittent MJ however renal function overall appears normal. Home BIBIANA and IV lasix stopped. IV fluids, monitor repeat renal function. 5. Sepsis: with tachycardia, tachypnea, (WBC 4.2 in the setting of chronic pancytopenia) and elevated Lactic acid. He is drowsy but does not appear acute or toxic. Hemodynamically stable. Sepsis secondary to pneumonia and colitis. Continue ATB's as noted above. Blood, sputum and urine cultures pending. 6. Diastolic CHF with preserved left ventricular function, NYHA class II: per hx. 10/2016 TTE with EF 60% and evidence of moderate diastolic dysfunction. CXR with possible pulmonary edema. With lower extremity edema on exam but does not appear overtly overloaded. Will give one time IV bolus with worsening renal function. Monitor fluid status. Daily weights and I's and O's. He has diuresed almost 5 L since admission. Stop IV lasix, resume home lasix 03/28. 7. Cirrhosis: Per history. Abdominal CT with cirrhotic-appearing liver with splenomegaly. AST and alkaline phosphatase elevated but appears stable. Albumin 3.2, INR 1.5. Thrombocytopenia stable. Continue home lactulose, ammonia level pending. 8. Diabetes: per hx. uncontrolled, Hgb A1c 10%. In the setting of steroid use but suspect component of medication and dietary noncompliance. Continue long- acting insulin, holding oral hypoglycemics. Increase SSRI to high dose. Beta hydroxybutyrate negative. Monitor blood sugar and titrate PRN 9. CAD: per hx. Denies CP. Continue home ASA, statin, BB 10. DVT prophylaxis: SCDs with thrombocytopenia and MJ (2) Acute respiratory failure with hypoxia Current Visit: Yes Status: Acute (3) Cirrhosis Current Visit: No Status: Chronic Qualifiers: Hepatic cirrhosis type: unspecified hepatic cirrhosis Ascites presence: without ascites Qualified Code(s): K74.60 - Unspecified cirrhosis of liver (4) Diastolic CHF with preserved left ventricular function, NYHA class 2 Current Visit: Yes Status: Chronic (5) HAP (hospital-acquired pneumonia) Current Visit: Yes Status: Acute - Subjective Interval history: Patient is new to me. Information obtained from chart review and patient report. He is drowsy, will wake up when spoken to when name called but then quickly falls back asleep. Throat patient at length and stressed the importance of wearing BiPAP. Patient says he is claustrophobic and is adamantly refusing advised patient that if his respiratory status worsens he would need to be intubated and patient is okay with that area and he has no complaints besides being tired and generally not feeling well. No shortness of breath no chest pain. - Constitutional Vitals: Temp Pulse Resp BP Pulse Ox 98.1 F 86 16 115/70 94 03/27/17 10:00 03/27/17 10:00 03/27/17 10:00 03/27/17 10:00 03/27/17 10:00 General appearance: Present: A&O X 3, no acute distress, obese - Head Head exam: Present: atraumatic, normocephalic - Eye Eye exam: Present: PERRL, conjuntiva pink, sclera anicteric Pupils: Present: PERRL - Neck Neck exam general surgery: Present: supple, trachea midline. Absent: lymphadenopathy - Respiratory Respiratory exam: Present: CTAB. Absent: accessory muscle use, rales, rhonchi, wheezes - Cardiovascular Cardiovascular exam: Present: RRR, +S1, +S2. Absent: diastolic murmur, gallop, rubs, systolic murmur - GI/Abdominal GI/Abdominal exam: Present: normal bowel sounds, soft, no peritoneal signs. Absent: distended, tenderness - Extremities Exam Extremities exam: Present: pedal edema, warm, radial pulses palpable and symmetrical. Absent: calf tenderness, cyanotic Additional comments: Lower Extremity edema - Neurological Exam Neurological exam: Present: CN II-XII intact, no focal deficits. Absent: pronater drift, facial droop, speech deficit Additional comments: Drowsy but arousable - Skin Skin exam: Present: dry, intact Internal Medicine: Result - Labs CBC & Chem 7: 03/26/17 18:41 03/27/17 00:43 Labs: Cardiac Enzymes 03/27/17 03/27/17 Range/Units 06:15 11:21 Troponin I 0.01 0.00 (0-0.03) ng/mL - ABG Interpretation ABG results: ABG ABG pH 7.40 pH Units (7.32-7.45) 03/27/17 00:58 ABG pCO2 39 mmHg (35-45) 03/27/17 00:58 ABG pO2 42 mmHg (85-104) L* 03/27/17 00:58 ABG O2 Saturation 77 % (95-98) L 03/27/17 00:58 PT/INR, D-dimer PT 16.6 Seconds (9.4-12.1) H 03/27/17 00:43 - Impressions Impressions Abdomen/Pelvis CT 03/27/17 23:43 IMPRESSION: There is mild stranding surrounding the cecum which is concerning for mild focal colitis of undetermined etiology, poorly evaluated on noncontrast exam. No evidence of nephrolithiasis or hydronephrosis. Stable lymphadenopathy. Cirrhotic appearing liver with splenomegaly. D/ / Annika Gallagher MD / Annika Gallagher MD Interpreting Provider: Annika Gallagher MD Consult Discharge Plan - Plan [facility]errals: [facility] [Primary Care Provider] -
[2017-03-27] MEDS ORDERED: 0.9 % Sodium Chloride 1,000 ML IVC SCH (17:00)
[2017-03-27] MEDS ORDERED: 0.9 % Sodium Chloride 500 ML IVC SCH (17:45)
[2017-03-27] MEDS: Cyprohepatdine 4 MG TABLET PO SCH (21:37)
[2017-03-28] MEDS: Aztreonam 2,000 MG in D5% in Water (Mini-Bag+) 100 ML IVPB SCH ×3 (00:32→16:41)
[2017-03-28] MEDS: MetroNIDAZOLE 500 MG/100 ML 500 MG/100 ML BAG IVPB SCH ×3 (01:55→16:41)
[2017-03-28] MEDS: Ipratropium/Albuterol Neb 3 ML IH SCH ×6 (05:11→22:54)
[2017-03-28 05:46] LABS: Hemoglobin A1C 8.9 %; Mean Corpuscular Hemoglobin 28.3 pg (28.0-33.3)
[2017-03-28 05:48] LABS: Hematocrit 26.3 % (37.5-50.1); Hemoglobin 8.7 g/dL (12.9-16.9); Immature Platelets 9.6 % (1.1-6.1); Mean Corpuscular HGB Conc 33.1 g/dL (31.6-35.5); Mean Corpuscular Volume 85.7 fL (83.0-100.0); Red Blood Count 3.07 M/mcL (4.19-5.50); Red Cell Distribution Width 14.7 % (11.5-14.5)
[2017-03-28 05:57] LABS: Alanine Aminotransferase 38 Units/L (0-55); Albumin 2.7 g/dL (3.5-5.0); Albumin/Globulin Ratio 0.6 (1.1-2.2); Alkaline Phosphatase 119 Units/L (38-126); Aspartate Amino Transferase 22 Units/L (5-34); BUN/Creatinine Ratio 27 (6-26); Bilirubin,Total 0.6 mg/dL (0.2-1.2); Calcium 8.8 mg/dL (8.6-10.8); Carbon Dioxide 23 mEq/L (19-29); Chloride 105 mEq/L (98-109); Globulin 4.2 g/dL (2.4-3.5); Glucose 289 mg/dL (70-99); Osmolality,Calculated 298 (280-300); Potassium 4.5 mEq/L (3.5-4.5); Sodium 135 mEq/L (136-145); Total Protein 6.9 g/dL (6.0-8.3); eGFR For African Americans > 60 (> 60); eGFR For Non-African Americans 58 (> 60)
[2017-03-28 05:59] LABS: Blood Urea Nitrogen 34 mg/dL (8-26)
[2017-03-28] MEDS: Insulin DETEMIR 100 UNIT/ML X5UNITS SQ SCH ×2 (08:56→21:07)
[2017-03-28] MEDS: Lactulose Oral Soln 20 GM/30 ML UDC PO SCH ×2 (08:56→21:06)
[2017-03-28] MEDS: Insulin LISPRO 300 UNITS/3 ML VIAL SQ SCH ×7 (08:56→21:11)
[2017-03-28] MEDS: Cholecalciferol (D-3) 1,000 UNIT TABLET PO SCH (08:59)
[2017-03-28] MEDS: *HR* Rivaroxaban 10 MG TABLET PO SCH (08:59)
[2017-03-28] MEDS: Aspirin Enteric Coated 81 MG Tablet PO SCH (08:59)
[2017-03-28] MEDS: Magnesium Oxide 400 MG TABLET PO SCH (08:59)
[2017-03-28] MEDS: GuaiFENesin/Dextromethorphan TABLET PO SCH ×2 (08:59→21:06)
[2017-03-28] MEDS ORDERED: MethylPREDNISolone 40 MG/ML VIAL IVP SCH (09:00)
--- NOTE | 2017-03-28 17:20 | Internal Med Progress Note ---
Date of Encounter: 03/28/17 Time of Encounter: 17:17 - Assessment and plan (1) Acute exacerbation of chronic obstructive airways disease Current Visit: Yes Status: Acute Assessment and plan: Teddy Ramirez is a 67-year-old male with past medical history COPD, CAD, cirrhosis, diabetes, diastolic CHF and morbid obesity who presented to a [facility] [place] on 03/26/2017 with complaints of shortness of breath. He was found to have pneumonia and colitis. He was admitted for IV ATB and further workup and treatment. 1. Acute respiratory failure with hypoxia: somnolent on admission. Has underlying COPD and pneumonia. ABG revealed a pO2 level of 42. Patient reports he has severe claustrophobia and refusing to wear a CPAP or BiPap mask. Spoke to patient at length on 03/27 and strongly encouraged BiPAP. He is agreeable to try at at bedtime but refusing at this time. Significantly improved on 03/28 exam. Will de-escalate steroids to PO. Encourage aggressive and stenosis biometry. 2.Acute encephalopathy: With persistent drowsiness. Patient will respond easily when spoken to but quickly falls back asleep. ABG with PCO2 39, ammonia level normal, urine drug screen negative. Multifactorial with acute illness. However also concern for CO2 retention. Previous ABG possibly mixed. Mentation improved on 03/28 exam. 2. Hospital-acquired pneumonia: CXR revealed multifocal pneumonia. Allergy to PCN and Vancomycin. WBC 8, afebrile. Urinary antigens and respiratory PCR negative. Stop Aztreonam. Continue Levaquin. Continue incentive spirometry, Mucinex, and Duonebs. 3. Colitis: Non-contrast abdominal CT with mild stranding around cecum, concerning for focal colitis. Patient denies abdominal pain, no loose stool. Unable to have contrast due to renal function at this time. Continue Levaquin add Flagyl. 4. MJ: Cr 1.2 on admission and elevated to 1.5 on 03/27. Per chart review, patient has had intermittent MJ however renal function overall appears normal. Cr improved with stopping home BIBIANA and IV lasix. Home Lasix resumed 5. Sepsis: with tachycardia, tachypnea, (WBC 4.2 in the setting of chronic pancytopenia) and elevated Lactic acid. Secondary to pneumonia and colitis. Blood and urine cultures negative. Repeat lactic acid trended down. Continue ATB's as noted above. 6. Diastolic CHF with preserved left ventricular function, NYHA class II: per hx. 10/2016 TTE with EF 60% and evidence of moderate diastolic dysfunction. CXR with possible pulmonary edema. With lower extremity edema on exam but does not appear overtly overloaded. Will give one time IV bolus with worsening renal function. Monitor fluid status. Daily weights and I's and O's. He has diuresed almost 5 L since admission. Stop IV lasix, resume home lasix 03/28. 7. Cirrhosis: Per history. Abdominal CT with cirrhotic-appearing liver with splenomegaly. AST and alkaline phosphatase elevated but appears stable. Albumin 3.2, INR 1.5. Thrombocytopenia stable. Continue home lactulose 8. Diabetes: per hx. uncontrolled, Hgb A1c 10%. In the setting of steroid use but suspect component of medication and dietary noncompliance. Continue long- acting insulin, holding oral hypoglycemics. Increase SSRI to high dose. Beta hydroxybutyrate negative. Monitor blood sugar and titrate PRN 9. CAD: per hx. Denies CP. Continue home ASA, statin, BB 10. DVT prophylaxis: SCDs with thrombocytopenia and MJ (2) Acute respiratory failure with hypoxia Current Visit: Yes Status: Acute (3) Cirrhosis Current Visit: No Status: Chronic Qualifiers: Hepatic cirrhosis type: unspecified hepatic cirrhosis Ascites presence: without ascites Qualified Code(s): K74.60 - Unspecified cirrhosis of liver (4) Diastolic CHF with preserved left ventricular function, NYHA class 2 Current Visit: Yes Status: Chronic (5) HAP (hospital-acquired pneumonia) Current Visit: Yes Status: Acute - Subjective Interval history: Seen and examined at bedside. Patient says he feels better. Still little tired he is complaining of right-sided pain and requesting IV pain medicine. Offered when necessary Tylenol or ibuprofen and patient declined. He is more compliant with medications was still refusing BiPAP and breathing treatments. He denies shortness of breath no chest pain. - Constitutional Vitals: Temp Pulse Resp BP Pulse Ox 98.2 F 75 18 132/75 91 03/28/17 14:54 03/28/17 14:54 03/28/17 14:54 03/28/17 14:54 03/28/17 14:54 General appearance: Present: A&O X 3, no acute distress, obese - Head Head exam: Present: atraumatic, normocephalic - Eye Eye exam: Present: PERRL, conjuntiva pink, sclera anicteric Pupils: Present: PERRL - Neck Neck exam general surgery: Present: supple, trachea midline. Absent: lymphadenopathy - Respiratory Respiratory exam: Present: CTAB. Absent: accessory muscle use, rales, rhonchi, wheezes - Cardiovascular Cardiovascular exam: Present: RRR, +S1, +S2. Absent: diastolic murmur, gallop, rubs, systolic murmur - GI/Abdominal GI/Abdominal exam: Present: normal bowel sounds, soft, no peritoneal signs. Absent: distended, tenderness Additional comments: Obese - Extremities Exam Extremities exam: Present: warm, radial pulses palpable and symmetrical. Absent : calf tenderness, cyanotic, pedal edema - Neurological Exam Neurological exam: Present: CN II-XII intact, oriented X3, no focal deficits. Absent: pronater drift, facial droop, speech deficit - Skin Skin exam: Present: dry, intact Internal Medicine: Result - Labs CBC & Chem 7: 03/28/17 04:41 03/28/17 04:41 Labs: Short CBC 03/28/17 Range/Units 04:41 WBC 6.2 (4.3-11.1) K/mcL Hgb 8.7 L (12.9-16.9) g/dL Hct 26.3 L (37.5-50.1) % Plt Count 63 L (140-400) K/mcL BMP 03/28/17 04:41 Sodium 135 L Potassium 4.5 Chloride 105 Carbon Dioxide 23 BUN 34 H D Creatinine 1.25 Glucose 289 H Calcium 8.8 Liver Function 03/28/17 Range/Units 04:41 Total Bilirubin 0.6 (0.2-1.2) mg/dL AST 22 (5-34) Units/L ALT 38 (0-55) Units/L Alkaline Phosphatase 119 (38-126) Units/L Albumin 2.7 L (3.5-5.0) g/dL - ABG Interpretation ABG results: ABG ABG pH 7.40 pH Units (7.32-7.45) 03/27/17 00:58 ABG pCO2 39 mmHg (35-45) 03/27/17 00:58 ABG pO2 42 mmHg (85-104) L* 03/27/17 00:58 ABG O2 Saturation 77 % (95-98) L 03/27/17 00:58 PT/INR, D-dimer PT 16.6 Seconds (9.4-12.1) H 03/27/17 00:43 Consult Discharge Plan - Plan [facility]errals: [facility] [Primary Care Provider] -
--- NOTE | 2017-03-28 19:22 | Electrocardiograph Report ---
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
[2017-03-28] MEDS ORDERED: Levofloxacin 750 MG/150 ML 750 MG/150 ML BAG IVPB SCH (21:00)
[2017-03-28] MEDS: RisperiDAL 3 MG TABLET PO SCH (21:06)
[2017-03-28] MEDS: Cyprohepatdine 4 MG TABLET PO SCH (21:06)
[2017-03-28] MEDS: Melatonin 3 MG TABLET PO SCH (21:27)
[2017-03-29] MEDS: Ipratropium/Albuterol Neb 3 ML IH SCH ×5 (04:30→16:35)
[2017-03-29 04:44] LABS: Hematocrit 27.6 % (37.5-50.1)
[2017-03-29 04:46] LABS: Hemoglobin 8.8 g/dL (12.9-16.9); Immature Platelets 7.5 % (1.1-6.1); Mean Corpuscular HGB Conc 31.9 g/dL (31.6-35.5); Mean Corpuscular Hemoglobin 27.7 pg (28.0-33.3); Mean Corpuscular Volume 86.8 fL (83.0-100.0); Mean Platelet Volume 11.1 fL (9.4-12.4); Red Blood Count 3.18 M/mcL (4.19-5.50); Red Cell Distribution Width 14.8 % (11.5-14.5)
[2017-03-29 05:06] LABS: Alanine Aminotransferase 39 Units/L (0-55); Albumin 2.7 g/dL (3.5-5.0); Albumin/Globulin Ratio 0.6 (1.1-2.2); Alkaline Phosphatase 116 Units/L (38-126); Aspartate Amino Transferase 38 Units/L (5-34); BUN/Creatinine Ratio 29 (6-26); Bilirubin,Total 0.6 mg/dL (0.2-1.2); Blood Urea Nitrogen 36 mg/dL (8-26); Calcium 8.8 mg/dL (8.6-10.8); Carbon Dioxide 22 mEq/L (19-29); Chloride 104 mEq/L (98-109); Globulin 4.2 g/dL (2.4-3.5); Glucose 171 mg/dL (70-99); Osmolality,Calculated 288 (280-300); Potassium 4.1 mEq/L (3.5-4.5); Sodium 133 mEq/L (136-145); Total Protein 6.9 g/dL (6.0-8.3); eGFR For African Americans > 60 (> 60); eGFR For Non-African Americans 57 (> 60)
[2017-03-29] MEDS ORDERED: predniSONE 20 MG TABLET PO SCH (09:00)
[2017-03-29] MEDS ORDERED: Furosemide 40 MG TABLET PO SCH (09:00)
[2017-03-29] MEDS: Insulin DETEMIR 100 UNIT/ML X5UNITS SQ SCH (09:05)
[2017-03-29] MEDS: Insulin LISPRO 300 UNITS/3 ML VIAL SQ SCH ×4 (09:05→12:47)
[2017-03-29] MEDS: Cholecalciferol (D-3) 1,000 UNIT TABLET PO SCH (09:06)
[2017-03-29] MEDS: Aspirin Enteric Coated 81 MG Tablet PO SCH (09:06)
[2017-03-29] MEDS: MetroNIDAZOLE 500 MG/100 ML 500 MG/100 ML BAG IVPB SCH ×2 (09:06)
[2017-03-29] MEDS: GuaiFENesin/Dextromethorphan TABLET PO SCH (09:06)
[2017-03-29] MEDS: *HR* Rivaroxaban 10 MG TABLET PO SCH (09:07)
[2017-03-29] MEDS: Magnesium Oxide 400 MG TABLET PO SCH (09:07)
[2017-03-29] MEDS: Lactulose Oral Soln 20 GM/30 ML UDC PO SCH ×2 (09:08→09:20)
[2017-03-29 14:57] LABS: Hematocrit 27.4 % (37.5-50.1); Immature Platelets 5.9 % (1.1-6.1); Mean Corpuscular HGB Conc 32.8 g/dL (31.6-35.5); Mean Corpuscular Volume 85.1 fL (83.0-100.0); Mean Platelet Volume 10.9 fL (9.4-12.4); Red Blood Count 3.22 M/mcL (4.19-5.50)
--- NOTE | 2017-03-29 16:10 | Internal Med Progress Note ---
Date of Encounter: 03/29/17 Time of Encounter: 15:59 - Assessment and plan (1) Acute exacerbation of chronic obstructive airways disease Current Visit: Yes Status: Acute Assessment and plan: Teddy Ramirez is a 67-year-old male with past medical history COPD, CAD, cirrhosis, diabetes, diastolic CHF and morbid obesity who presented to a [facility] [place] on 03/26/2017 with complaints of shortness of breath. He was found to have pneumonia and colitis. He was admitted for IV ATB and further workup and treatment. Hospital course prolonged by qualifying for home O2 and anorectal hemorrhage. 1. Acute respiratory failure with hypoxia: somnolent on admission. Has underlying COPD and pneumonia. ABG revealed a pO2 level of 42. Patient reports he has severe claustrophobia and refusing to wear a CPAP or BiPap mask. Spoke to patient at length on 03/27 and strongly encouraged BiPAP. Now adequately oxygenating with NC. He did qualify for home which has been set up prior to discharge 2.Acute encephalopathy: With persistent drowsiness. Patient will respond easily when spoken to but quickly falls back asleep. ABG with PCO2 39, ammonia level normal, urine drug screen negative. Multifactorial with acute illness. However also concern for CO2 retention. Previous ABG possibly mixed. Mentation improved on 03/28 exam. 3. Hospital-acquired pneumonia: Unspecified organism. CXR revealed multifocal pneumonia. Allergy to PCN and Vancomycin. WBC 8, afebrile. Urinary antigens and respiratory PCR negative. Aztreonam stopped. Continue incentive spirometry , Mucinex, and Duonebs. Continue Levaquin (every 48 hour due to renal failure; dose 1/7). 4. Colorectal hemorrhage: Recently admitted 02/2017 for similar symptoms. Colonoscopy at that time showed a nonbleeding polyp and scattered inflammation with erosions and erythema and friability to the rectum. Now with acute onset BRBPR on 03/29. Hemodynamically stable. Repeat Hgb 9 improved from previous. Occult stool pending. Consult GI if Hgb drops or bleeding persist. If Hgb stable then okay to discharge with outpatient follow-up. 5. Colitis: Non-contrast abdominal CT with mild stranding around cecum, concerning for focal colitis. Patient denies abdominal pain, no loose stool. Unable to have contrast due to renal function at this time. Continue Levaquin add Flagyl. 6. MJ: Cr 1.2 on admission and elevated to 1.5 on 03/27. Per chart review, patient has had intermittent MJ however renal function overall appears normal. Cr improved with stopping home BIBIANA and IV lasix. Home Lasix resumed 7. Sepsis: with tachycardia, tachypnea, (WBC 4.2 in the setting of chronic pancytopenia) and elevated Lactic acid. Secondary to pneumonia and colitis. Blood and urine cultures negative. Repeat lactic acid trended down. Continue ATB's as noted above. 8. Diastolic CHF with preserved left ventricular function, NYHA class II: per hx. 10/2016 TTE with EF 60% and evidence of moderate diastolic dysfunction. CXR with possible pulmonary edema. With lower extremity edema on exam but does not appear overtly overloaded. Will give one time IV bolus with worsening renal function. Monitor fluid status. Daily weights and I's and O's. He has diuresed almost 5 L since admission. Stop IV lasix, resume home lasix 03/28. 9. Cirrhosis: Per history. Abdominal CT with cirrhotic-appearing liver with splenomegaly. AST and alkaline phosphatase elevated but appears stable. Albumin 3.2, INR 1.5. Thrombocytopenia stable. Continue home lactulose 10. Diabetes: per hx. uncontrolled, Hgb A1c 10%. In the setting of steroid use but suspect component of medication and dietary noncompliance. Continue long- acting insulin, holding oral hypoglycemics. Increase SSRI to high dose. Beta hydroxybutyrate negative. Monitor blood sugar and titrate PRN 11. CAD: per hx. Denies CP. Continue home ASA, statin, BB 12. DVT prophylaxis: SCDs with thrombocytopenia and MJ (2) Acute respiratory failure with hypoxia Current Visit: Yes Status: Acute (3) Cirrhosis Current Visit: No Status: Chronic Qualifiers: Hepatic cirrhosis type: unspecified hepatic cirrhosis Ascites presence: without ascites Qualified Code(s): K74.60 - Unspecified cirrhosis of liver (4) Diastolic CHF with preserved left ventricular function, NYHA class 2 Current Visit: Yes Status: Chronic (5) HAP (hospital-acquired pneumonia) Current Visit: Yes Status: Acute - Subjective Interval history: Seen and examined at bedside. Says he feels better and wants to go home. He does report some intermittent shortness of breath. He is agreeable for oxygen qualification. He has been more compliant with medications however still refusing BiPAP. - Constitutional Vitals: Temp Pulse Resp BP Pulse Ox 97.6 F 80 15 148/73 91 03/29/17 12:29 03/29/17 12:29 03/29/17 12:29 03/29/17 12:29 03/29/17 12:29 General appearance: Present: A&O X 3, no acute distress, obese - Head Head exam: Present: atraumatic, normocephalic - Eye Eye exam: Present: PERRL, conjuntiva pink, sclera anicteric Pupils: Present: PERRL - Neck Neck exam general surgery: Present: supple, trachea midline. Absent: lymphadenopathy - Respiratory Respiratory exam: Present: CTAB. Absent: accessory muscle use, rales, rhonchi, wheezes - Cardiovascular Cardiovascular exam: Present: RRR, +S1, +S2. Absent: diastolic murmur, gallop, rubs, systolic murmur Additional comments: diminished - GI/Abdominal GI/Abdominal exam: Present: normal bowel sounds, soft, no peritoneal signs. Absent: distended, tenderness - Extremities Exam Extremities exam: Present: warm, radial pulses palpable and symmetrical. Absent : calf tenderness, cyanotic, pedal edema - Neurological Exam Neurological exam: Present: CN II-XII intact, oriented X3, no focal deficits. Absent: pronater drift, facial droop, speech deficit - Skin Skin exam: Present: dry, intact Internal Medicine: Result - Labs CBC & Chem 7: 03/29/17 14:49 03/29/17 04:28 Labs: Short CBC 03/29/17 03/29/17 Range/Units 04:28 14:49 WBC 5.3 4.2 L (4.3-11.1) K/mcL Hgb 8.8 L 9.0 L (12.9-16.9) g/dL Hct 27.6 L 27.4 L (37.5-50.1) % Plt Count 72 L 63 L (140-400) K/mcL BMP 03/29/17 04:28 Sodium 133 L Potassium 4.1 Chloride 104 Carbon Dioxide 22 BUN 36 H Creatinine 1.26 H Glucose 171 H Calcium 8.8 Liver Function 03/29/17 Range/Units 04:28 Total Bilirubin 0.6 (0.2-1.2) mg/dL AST 38 H (5-34) Units/L ALT 39 (0-55) Units/L Alkaline Phosphatase 116 (38-126) Units/L Albumin 2.7 L (3.5-5.0) g/dL - ABG Interpretation ABG results: ABG ABG pH 7.40 pH Units (7.32-7.45) 03/27/17 00:58 ABG pCO2 39 mmHg (35-45) 03/27/17 00:58 ABG pO2 42 mmHg (85-104) L* 03/27/17 00:58 ABG O2 Saturation 77 % (95-98) L 03/27/17 00:58 PT/INR, D-dimer PT 16.6 Seconds (9.4-12.1) H 03/27/17 00:43 - Impressions Impressions Abdomen Ultrasound 03/29/17 13:30 IMPRESSION: 1. No visualized ascites. Abdominal distention is likely related to laxity of the anterior and lateral abdominal wall musculature and prominent intra-abdominal fat as seen on CT. 2. Limited evaluation of the liver with findings consistent with changes of cirrhosis seen on prior studies. 3. At least mild splenomegaly. D/ / Lacho Lacy MD / Lacho Lacy MD Interpreting Provider: Lacho Lacy MD Consult Discharge Plan - Plan [facility]errals: [facility] [Primary Care Provider] -
[2017-03-29 16:30] VITALS: BP 148/81
--- NOTE | 2017-03-30 09:11 | Discharge Summary ---
Date of Encounter: 03/29/17 Time of Encounter: 17:00 - Discharge Diagnosis (1) Acute exacerbation of chronic obstructive airways disease Priority: Primary Status: Acute Comments: Teddy Ramirez is a 67-year-old male with past medical history COPD, CAD, cirrhosis, diabetes, diastolic CHF and morbid obesity who presented to a [facility] on 03/26/2017 with complaints of shortness of breath. He was found to have pneumonia and colitis. He was admitted for IV ATB and further workup and treatment. Hospital course prolonged by qualifying for home O2 and anorectal hemorrhage. Patient left AMA on 03/29/2017 1. Acute respiratory failure with hypoxia: somnolent on admission. Has underlying COPD and pneumonia. ABG revealed a pO2 level of 42. Patient reports he has severe claustrophobia and refusing to wear a CPAP or BiPap mask. Spoke to patient at length on 03/27 and strongly encouraged BiPAP. Now adequately oxygenating with NC. He did qualify for home which has been set up prior to discharge 2.Acute encephalopathy: With persistent drowsiness. Patient will respond easily when spoken to but quickly falls back asleep. ABG with PCO2 39, ammonia level normal, urine drug screen negative. Multifactorial with acute illness. However also concern for CO2 retention. Previous ABG possibly mixed. Mentation improved on 03/28 exam. 3. Hospital-acquired pneumonia: Unspecified organism. CXR revealed multifocal pneumonia. Allergy to PCN and Vancomycin. WBC 8, afebrile. Urinary antigens and respiratory PCR negative. Aztreonam stopped. Continue incentive spirometry , Mucinex, and Duonebs. Continue Levaquin (every 48 hour due to renal failure; dose /7). 4. Colorectal hemorrhage: Recently admitted 02/2017 for similar symptoms. Colonoscopy at that time showed a nonbleeding polyp and scattered inflammation with erosions and erythema and friability to the rectum. Now with acute onset BRBPR on 03/29. Hemodynamically stable. Repeat Hgb 9 improved from previous. Occult stool pending. Consult GI if Hgb drops or bleeding persist. If Hgb stable then okay to discharge with outpatient follow-up. 5. Colitis: Non-contrast abdominal CT with mild stranding around cecum, concerning for focal colitis. Patient denies abdominal pain, no loose stool. Unable to have contrast due to renal function at this time. Continue Levaquin add Flagyl. 6. MJ: Cr 1.2 on admission and elevated to 1.5 on 03/27. Per chart review, patient has had intermittent MJ however renal function overall appears normal. Cr improved with stopping home BIBIANA and IV lasix. Home Lasix resumed 7. Sepsis: with tachycardia, tachypnea, (WBC 4.2 in the setting of chronic pancytopenia) and elevated Lactic acid. Secondary to pneumonia and colitis. Blood and urine cultures negative. Repeat lactic acid trended down. Continue ATB's as noted above. 8. Diastolic CHF with preserved left ventricular function, NYHA class II: per hx. 10/2016 TTE with EF 60% and evidence of moderate diastolic dysfunction. CXR with possible pulmonary edema. With lower extremity edema on exam but does not appear overtly overloaded. Will give one time IV bolus with worsening renal function. Monitor fluid status. Daily weights and I's and O's. He has diuresed almost 5 L since admission. Stop IV lasix, resume home lasix 03/28. 9. Cirrhosis: Per history. Abdominal CT with cirrhotic-appearing liver with splenomegaly. AST and alkaline phosphatase elevated but appears stable. Albumin 3.2, INR 1.5. Thrombocytopenia stable. Continue home lactulose 10. Diabetes: per hx. uncontrolled, Hgb A1c 10%. In the setting of steroid use but suspect component of medication and dietary noncompliance. Continue long- acting insulin, holding oral hypoglycemics. Increase SSRI to high dose. Beta hydroxybutyrate negative. Monitor blood sugar and titrate PRN 11. CAD: per hx. Denies CP. Continue home ASA, statin, BB 12. DVT prophylaxis: SCDs with thrombocytopenia and MJ (2) Acute respiratory failure with hypoxia Priority: Primary Status: Acute (3) Cirrhosis Priority: Primary Status: Chronic Qualifiers: Hepatic cirrhosis type: unspecified hepatic cirrhosis Ascites presence: without ascites Qualified Code(s): K74.60 - Unspecified cirrhosis of liver (4) Diastolic CHF with preserved left ventricular function, NYHA class 2 Priority: Primary Status: Chronic (5) HAP (hospital-acquired pneumonia) Priority: Primary Status: Acute - Discharge Medications Home Medications: Cholecalciferol (Vitamin D3) [Vitamin D] 2,000 unit PO DAILY 05/13/15 [History] Insulin ASPART [NovoLOG] 25 unit SQ TIDWM 12/07/15 [History] Aspirin Enteric Coated [Aspirin EC] 81 mg PO DAILY 11/13/15 [History] Atorvastatin [Lipitor] 40 mg PO HS 11/13/15 [History] Insulin Glargine,Hum.rec.anlog [Lantus Solostar] 55 unit SQ BID 11/13/15 [ History] Lactulose 15 gm PO BID 11/13/15 [History] Omeprazole [PriLOSEC] 20 mg PO DAILY 11/13/15 [History] Tamsulosin [Flomax] 0.4 mg PO DAILY 11/13/15 [History] Furosemide [Lasix] 40 mg PO DAILY 05/16/16 [History] Rivaroxaban [Xarelto] 10 mg PO DAILY 05/16/16 [History] risperiDONE [Risperdal] 3 mg PO HS 05/16/16 [History] Atenolol [Tenormin] 50 mg PO DAILY 05/29/16 [History] Ipratropium/Albuterol Neb [Duoneb] 3 ml IH QID 08/10/16 [History] Sertraline [Zoloft] 100 mg PO HS 10/27/16 [History] Spironolactone [Aldactone] 50 mg PO DAILY 10/27/16 [History] Cyprohepatdine [Periactin] 4 mg PO HS 01/26/17 [History] Buprenorphine HCl/Naloxone HCl [Buprenorphin-Naloxon 8-2 mg Sl] 2 tab SL BID [History] Magnesium Oxide [Mag-Ox] 400 mg PO DAILY #30 tab 02/01/17 [Rx] Lisinopril 2.5 mg PO HS 02/03/17 [History] Melatonin [Melatin] 9 mg PO HS 02/03/17 [History] glipiZIDE [Glipizide] 10 mg PO BID 03/02/17 [History] Allergies/Adverse Reactions: 3 Allergy/AdvReac Type Severity Reaction Status Date / Time Iodinated Contrast- Oral and Allergy Difficulty Verified 03/01/17 19:16 IV Dye Breathing ketorolac [From Toradol] Allergy Nausea Verified 03/01/17 19:16 Penicillins Allergy Rash Verified 03/01/17 19:16 butorphanol [From Stadol] AdvReac Nausea Verified 03/01/17 19:16 celecoxib AdvReac unknown Verified 03/01/17 19:16 diphenhydramine AdvReac See Verified 03/01/17 19:16 [From Benadryl] Comments gabapentin AdvReac unknown Verified 03/01/17 19:16 Methadone AdvReac See Verified 03/01/17 19:16 Comments mirtazapine AdvReac unknown Verified 03/01/17 19:16 morphine AdvReac See Verified 03/01/17 19:16 Comments tramadol AdvReac unknown Verified 02/03/17 21:00 vancomycin AdvReac unknown Verified 02/03/17 21:00 Procedures/tests Complete & Pending: Procedures Performed prior 72 hours Category Date Time Status abdominal ultrasound - limited [US abdomen limited] [US Exams 03/29/17 13:30 Completed ] Stat Date of admission: 03/27/17 04:25 [facility] physician: [facility] Consults: 03/29/17 10:05 Consult to Treatment Coordinator [CONS] Routine Reason for SW Consult: oxygen therapy [facility] Discharging clinician: Landy Schulte Anticipated date of discharge: 03/29/17 - Patient Status Disposition: Left Against Medical Advice Condition: Good Functional capacity at discharge: independent ambulation Overall status at discharge: patient is progressing back to baseline - Discharge Instructions Follow Up With: [facility] [Primary Care Provider] - - Diet and Activity Activity: increase activity as tolerated Diet: advance to your usual diet Interval History: See 03/29/2017 progress note for interval history. Patient did not want to stay and left AMA Hospital course: See assessment and plan for hospital course - Time Spent with Patient Total time spent providing and/or coordinating discharge services: Less than 30 minutes - Constitutional Vitals: Temp Pulse Resp BP Pulse Ox 98.0 F 76 16 148/81 90 03/29/17 16:29 03/29/17 16:29 03/29/17 16:29 03/29/17 16:29 03/29/17 16:29 General appearance: Present: A&O X 3, no acute distress, obese - Head Head exam: Present: atraumatic, normocephalic - Eye Eye exam: Present: PERRL, conjuntiva pink, sclera anicteric Pupils: Present: PERRL - Neck Neck exam general surgery: Present: supple, trachea midline. Absent: lymphadenopathy - Respiratory Respiratory exam: Present: CTAB. Absent: accessory muscle use, rales, rhonchi, wheezes - Cardiovascular Cardiovascular exam: Present: RRR, +S1, +S2. Absent: diastolic murmur, gallop, rubs, systolic murmur - GI/Abdominal GI/Abdominal exam: Present: normal bowel sounds, soft, no peritoneal signs. Absent: distended, tenderness Additional comments: obese - Extremities Exam Extremities exam: Present: warm, radial pulses palpable and symmetrical. Absent : calf tenderness, cyanotic, pedal edema - Neurological Exam Neurological exam: Present: CN II-XII intact, oriented X3, no focal deficits. Absent: pronater drift, facial droop, speech deficit - Skin Skin exam: Present: dry, intact
== END 2017-03-29 17:35 | disposition left against medical advice (07) | DRG 871 ==
LOC: 3BNU 18:13 → EMEROO 18:13 → 3BNU 20:52
PROVIDERS: ADMIT Hospitalist; ATTEND Registered Nurse

== ENCOUNTER 2017-04-06 20:00 | Inpatient (IN) ==
[2017-04-06] MEDS: 0.9 % Sodium Chloride 1,000 ML IVC SCH ×3 (20:30→21:57)
[2017-04-06 20:41] LABS: Hemoglobin 9.4 g/dL (12.9-16.9); Lymphocytes % 23.8 %; Mean Corpuscular Volume 82.5 fL (83.0-100.0); Red Cell Distribution Width 14.9 % (11.5-14.5)
[2017-04-06 20:43] LABS: Basophils % 0.2 %; Eosinophils # 0.1 K/mcL (0.0-0.6); Eosinophils % 2.3 %; Hematocrit 28.8 % (37.5-50.1); Immature Granulocytes % 0.2 % (0-4); Immature Platelets 8.9 % (1.1-6.1); Mean Corpuscular HGB Conc 32.6 g/dL (31.6-35.5); Mean Corpuscular Hemoglobin 26.9 pg (28.0-33.3); Monocytes # 0.5 K/mcL (0.0-1.3); Red Blood Count 3.49 M/mcL (4.19-5.50); Segmented Neutrophils % 62.5 %
[2017-04-06 20:46] LABS: Lymphocytes # 1.1 K/mcL (0.6-4.6)
[2017-04-06 20:47] LABS: Platelet Count 79 K/mcL (140-400)
[2017-04-06 20:48] LABS: INR 1.4; Prothrombin Time 15.1 Seconds (9.4-12.1)
[2017-04-06 20:51] LABS: Activated Partial Thrombo Time 35.2 Seconds (26.0-36.0)
--- NOTE | 2017-04-06 20:53 | Emergency Department Note ---
Disposition Clinical Impression: Hyperglycemia without ketosis, Acute renal insufficiency, Dehydration Pneumonia Qualifiers: Pneumonia type: due to unspecified organism Laterality: bilateral Lung location : lower lobe of lung Qualified Code(s): J18.9 - Pneumonia, unspecified organism Disposition: Admitted As Inpatient [facility] - Forms: ED Satisfaction Letter, Work/School Release General Adult HPI - General Chief complaint: ED General Medical Stated complaint: Elevated Blood Sugar Source: EMS Nursing Notes Reviewed: Yes Vital Signs Reviewed: Yes - History of Present Illness HPI Narrative: 67-year-old male with past medical history of type 2 diabetes, CHF, liver cirrhosis, hyperlipidemia, reports to the emergency department with concerns for high blood glucose. EMS brought him in stating that his blood glucose at home was in the 500s. Patient reports that he is having right lower quadrant abdominal pain as well. Patient states that his abdominal pain is slightly different from where he normally is when he is going into diabetic ketoacidosis. Pain Scale: 2 - Related Data Home Medications Medication Instructions Recorded Confirmed Cholecalciferol (Vitamin D3) 2,000 unit PO DAILY 05/13/15 04/06/17 [Vitamin D] Insulin ASPART [NovoLOG] 35 unit SQ TIDAC 05/13/15 04/06/17 Aspirin Enteric Coated [Aspirin EC] 81 mg PO DAILY 11/13/15 04/06/17 Atorvastatin [Lipitor] 40 mg PO HS 11/13/15 04/06/17 Insulin Glargine,Hum.rec.anlog 80 unit SQ BID 11/13/15 04/06/17 [Lantus Solostar] Omeprazole [PriLOSEC] 20 mg PO DAILY 11/13/15 04/06/17 Tamsulosin [Flomax] 0.4 mg PO DAILY 11/13/15 04/06/17 Furosemide [Lasix] 40 mg PO DAILY 05/16/16 04/06/17 risperiDONE [Risperdal] 3 mg PO HS 05/16/16 04/06/17 Atenolol [Tenormin] 50 mg PO DAILY 05/29/16 04/06/17 Ipratropium/Albuterol Neb [Duoneb] 3 ml IH QID 08/10/16 04/06/17 Sertraline [Zoloft] 100 mg PO HS 10/27/16 04/06/17 Spironolactone [Aldactone] 50 mg PO DAILY 10/27/16 04/06/17 Buprenorphine HCl/Naloxone HCl 2 tab SL BID 01/27/17 04/06/17 [Buprenorphin-Naloxon 8-2 mg Sl] Lisinopril 2.5 mg PO HS 02/03/17 04/06/17 Melatonin [Melatin] 9 mg PO HS 02/03/17 04/06/17 Insulin ASPART [NovoLOG] 3 - 8 unit SQ TID PRN 04/06/17 04/06/17 Lidocaine Patch [Lidoderm 5% patch] 1 each TP DAILY 04/06/17 04/06/17 Rifaximin [Xifaxan] 550 mg PO BID 04/06/17 04/06/17 Allergies Allergy/AdvReac Type Severity Reaction Status Date / Time Iodinated Contrast- Oral and Allergy Difficulty Verified 03/01/17 19:16 IV Dye Breathing ketorolac [From Toradol] Allergy Nausea Verified 03/01/17 19:16 Penicillins Allergy Rash Verified 03/01/17 19:16 butorphanol [From Stadol] AdvReac Nausea Verified 03/01/17 19:16 celecoxib AdvReac unknown Verified 03/01/17 19:16 diphenhydramine AdvReac See Verified 03/01/17 19:16 [From Benadryl] Comments gabapentin AdvReac unknown Verified 03/01/17 19:16 Methadone AdvReac See Verified 03/01/17 19:16 Comments mirtazapine AdvReac unknown Verified 03/01/17 19:16 morphine AdvReac See Verified 03/01/17 19:16 Comments tramadol AdvReac unknown Verified 02/03/17 21:00 vancomycin AdvReac unknown Verified 02/03/17 21:00 Past Medical History - Past Medical History Medical history: Reports: arthritis, cirrhosis, CHF, COPD, coronary artery disease, diabetes, GERD, hyperlipidemia, hypertension, liver disease, osteoporosis, TIA Surgical history: Reports: appendectomy, cholecystectomy, herniorrhaphy, knee replacement, other Psychiatric history: Reports: anxiety, depression, panic disorder, PTSD, previous psychiatric hospitalization - Social History Smoking Status: Never smoker Smokeless Tobacco Status: No Alcohol use: Reports: none Drug use: Reports: none Physical Exam - General General appearance: lethargic Course Vital Signs Temperature 98.1 F 04/06/17 20:07 Pulse Rate 82 04/06/17 20:07 Respiratory Rate 24 04/06/17 20:07 Blood Pressure 82/41 04/06/17 20:07 O2 Sat by Pulse Oximetry 95 04/06/17 20:07 Temperature 98.1 F 04/06/17 20:07 Pulse Rate 82 04/06/17 21:23 Respiratory Rate 26 04/06/17 21:23 Blood Pressure 107/58 04/06/17 21:23 O2 Sat by Pulse Oximetry 98 04/06/17 21:23 Oxygen Delivery Oxygen Delivery Nasal Cannula Medical Decision Making - MDM Narrative Medical decision making narrative: 67-year-old male presents to the emergency department with concern for hyperglycemia. Patient initially had of blood glucose of 469 here. Patient was hypotensive at 82/51. Patient was complaining of right lower quadrant abdominal pain. Sepsis order set was obtained. There was also concern for diabetic ketoacidosis at that time. Electrocardiogram did not reveal any ischemic changes. Troponin was negative. Chest x-ray did not reveal any airspace disease. Due to the patient's right lower quadrant abdominal pain at CT scan of abdomen and pelvis for performed. There was patchy airspace disease detected in lower lungs bilaterally which could correlate with pneumonia. Patient's hypotension resolved in the emergency department after administration of 2 L bolus of normal saline. We refrain from administering more as this patient has a history of congestive heart failure and liver cirrhosis and we did not want to volume overload him. After measures as of 2 L bolus of normal saline, repeat blood glucose was much lower 289. Patient was given Levaquin and cefepime for antimicrobials for his bilateral lower lobe pneumonia in the emergency department. Patient was admitted to the hospitalist. Chest X-Ray 04/06/17 20:17 IMPRESSION: No focal airspace disease. Cardiomegaly. D/ / 04/06/2017 20:54:43 Kelton Ortega MD / kylee Interpreting Provider: Kelton Ortega MD Abdomen/Pelvis CT 04/06/17 21:47 IMPRESSION: 1. No definite acute abnormality detected. Pericecal inflammation seen previously has for the most part resolved. 2. Patchy airspace disease in lower lungs bilaterally, possibly atelectasis but correlate with any clinical evidence of pneumonia. 3. Cirrhotic morphology liver with evidence of portal hypertension. 4. Mildly limited by respiratory motion artifact. D/ / Salvatore Snyder MD / Salvatore Snyder MD Interpreting Provider: Salvatore Snyder MD Vital Signs Temperature 98.1 F 04/06/17 20:07 Pulse Rate 82 04/06/17 20:07 Respiratory Rate 24 04/06/17 20:07 Blood Pressure 82/41 04/06/17 20:07 O2 Sat by Pulse Oximetry 95 04/06/17 20:07 Temperature 98.1 F 04/06/17 20:07 Pulse Rate 82 04/06/17 21:23 Respiratory Rate 26 04/06/17 21:23 Blood Pressure 107/58 04/06/17 21:23 O2 Sat by Pulse Oximetry 98 04/06/17 21:23 Oxygen Delivery Oxygen Delivery Nasal Cannula - Medical Records Medical records reviewed: Yes I reviewed the patient's medical records. - Lab Data Lab results reviewed: Yes I reviewed the patient's lab results. Result diagrams: 04/06/17 20:28 04/06/17 20:28 Lab Results 04/06/17 04/06/17 04/06/17 Range/Units 20:28 20:28 20:28 WBC 4.8 (4.3-11.1) K/mcL RBC 3.49 L (4.19-5.50) M/mcL Hgb 9.4 L D (12.9-16.9) g/dL Hct 28.8 L (37.5-50.1) % MCV 82.5 L (83.0-100.0) fL MCH 26.9 L (28.0-33.3) pg MCHC 32.6 (31.6-35.5) g/dL RDW 14.9 H (11.5-14.5) % Plt Count 79 L (140-400) K/mcL MPV 11.0 (9.4-12.4) fL Immature Gran % 0.2 (0-4) % Seg Neutrophils % 62.5 % Lymphocytes % 23.8 % Monocytes % 11.0 % Eosinophils % 2.3 % Basophils % 0.2 % Neutrophils # 3.0 (1.6-8.9) K/mcL Lymphocytes # 1.1 (0.6-4.6) K/mcL Monocytes # 0.5 (0.0-1.3) K/mcL Eosinophils # 0.1 (0.0-0.6) K/mcL Basophils # 0.0 (0.0-0.2) K/mcL Immature Plt Fraction 8.9 H (1.1-6.1) % PT 15.1 H (9.4-12.1) Seconds INR 1.4 APTT 35.2 (26.0-36.0) Seconds Sample Site ABG pH (7.32-7.45) pH Units ABG pCO2 (35-45) mmHg ABG pO2 (85-104) mmHg ABG HCO3 (21-27) mEq/L ABG Total CO2 (20-26) mEq/L ABG O2 Saturation (95-98) % ABG Base Excess (-2 to 3) mEq/L [place] Test O2 Delivery Device Inspired O2 (1-15=lpm xr00-107=%) Sodium 131 L (136-145) mEq/L Potassium 4.1 (3.5-4.5) mEq/L Chloride 97 L (98-109) mEq/L Carbon Dioxide 23 (19-29) mEq/L BUN 20 (8-26) mg/dL Creatinine 2.06 H (0.72-1.25) mg/dL Est GFR ( Amer) 39 L (> 60) Est GFR (Non-Af Amer) 32 L (> 60) BUN/Creatinine Ratio 10 (6-26) Glucose 469 H (70-99) mg/dL Calculated Osmolality 295 (280-300) Lactic Acid (0.5-2.2) mmol/L Calcium 9.2 (8.6-10.8) mg/dL Phosphorus 4.3 (2.3-4.7) mg/dL Magnesium 1.8 (1.6-2.6) mg/dL Total Bilirubin 0.6 (0.2-1.2) mg/dL Direct Bilirubin 0.3 (0.0-0.5) mg/dL Indirect Bilirubin 0.3 (0.0-1.2) mg/dL AST 37 H (5-34) Units/L ALT 42 (0-55) Units/L Alkaline Phosphatase 129 H (38-126) Units/L Ammonia (18-72) mcmol/L Troponin I (0-0.03) ng/mL B-Natriuretic Peptide (0-100) pg/mL Serum Total Protein 7.3 (6.0-8.3) g/dL Albumin 2.9 L (3.5-5.0) g/dL Globulin 4.4 H (2.4-3.5) g/dL Albumin/Globulin Ratio 0.7 L (1.1-2.2) Lipase 91 H (8-78) Units/L Beta-Hydroxybutyric Acd (0.02-0.27) mmol/L Urine Color (Yellow) Urine Clarity (Clear) Urine pH (5.0-8.0) pH Units Ur Specific [place] (1.010-1.025) Urine Protein (Neg-Trace) mg/dL Urine Glucose (UA) (Normal) mg/dL Urine Ketones (Negative) mg/dL Urine Blood (Negative) Urine Nitrite (Negative) Urine Bilirubin (Negative) Urine Urobilinogen (Normal) mg/dL Ur Leukocyte Esterase (Negative) Ur Culture Indicated? (NO) 04/06/17 04/06/17 04/06/17 Range/Units 20:28 20:28 20:28 WBC (4.3-11.1) K/mcL RBC (4.19-5.50) M/mcL Hgb (12.9-16.9) g/dL Hct (37.5-50.1) % MCV (83.0-100.0) fL MCH (28.0-33.3) pg MCHC (31.6-35.5) g/dL RDW (11.5-14.5) % Plt Count (140-400) K/mcL MPV (9.4-12.4) fL Immature Gran % (0-4) % Seg Neutrophils % % Lymphocytes % % Monocytes % % Eosinophils % % Basophils % % Neutrophils # (1.6-8.9) K/mcL Lymphocytes # (0.6-4.6) K/mcL Monocytes # (0.0-1.3) K/mcL Eosinophils # (0.0-0.6) K/mcL Basophils # (0.0-0.2) K/mcL Immature Plt Fraction (1.1-6.1) % PT (9.4-12.1) Seconds INR APTT (26.0-36.0) Seconds Sample Site ABG pH (7.32-7.45) pH Units ABG pCO2 (35-45) mmHg ABG pO2 (85-104) mmHg ABG HCO3 (21-27) mEq/L ABG Total CO2 (20-26) mEq/L ABG O2 Saturation (95-98) % ABG Base Excess (-2 to 3) mEq/L [place] Test O2 Delivery Device Inspired O2 (1-15=lpm ai20-104=%) Sodium (136-145) mEq/L Potassium (3.5-4.5) mEq/L Chloride (98-109) mEq/L Carbon Dioxide (19-29) mEq/L BUN (8-26) mg/dL Creatinine (0.72-1.25) mg/dL Est GFR ( Amer) (> 60) Est GFR (Non-Af Amer) (> 60) BUN/Creatinine Ratio (6-26) Glucose (70-99) mg/dL Calculated Osmolality (280-300) Lactic Acid 3.7 H (0.5-2.2) mmol/L Calcium (8.6-10.8) mg/dL Phosphorus (2.3-4.7) mg/dL Magnesium (1.6-2.6) mg/dL Total Bilirubin (0.2-1.2) mg/dL Direct Bilirubin (0.0-0.5) mg/dL Indirect Bilirubin (0.0-1.2) mg/dL AST (5-34) Units/L ALT (0-55) Units/L Alkaline Phosphatase (38-126) Units/L Ammonia (18-72) mcmol/L Troponin I 0.00 (0-0.03) ng/mL B-Natriuretic Peptide 47 (0-100) pg/mL Serum Total Protein (6.0-8.3) g/dL Albumin (3.5-5.0) g/dL Globulin (2.4-3.5) g/dL Albumin/Globulin Ratio (1.1-2.2) Lipase (8-78) Units/L Beta-Hydroxybutyric Acd (0.02-0.27) mmol/L Urine Color (Yellow) Urine Clarity (Clear) Urine pH (5.0-8.0) pH Units Ur Specific [place] (1.010-1.025) Urine Protein (Neg-Trace) mg/dL Urine Glucose (UA) (Normal) mg/dL Urine Ketones (Negative) mg/dL Urine Blood (Negative) Urine Nitrite (Negative) Urine Bilirubin (Negative) Urine Urobilinogen (Normal) mg/dL Ur Leukocyte Esterase (Negative) Ur Culture Indicated? (NO) 04/06/17 04/06/17 04/06/17 Range/Units 20:28 20:47 21:01 WBC (4.3-11.1) K/mcL RBC (4.19-5.50) M/mcL Hgb (12.9-16.9) g/dL Hct (37.5-50.1) % MCV (83.0-100.0) fL MCH (28.0-33.3) pg MCHC (31.6-35.5) g/dL RDW (11.5-14.5) % Plt Count (140-400) K/mcL MPV (9.4-12.4) fL Immature Gran % (0-4) % Seg Neutrophils % % Lymphocytes % % Monocytes % % Eosinophils % % Basophils % % Neutrophils # (1.6-8.9) K/mcL Lymphocytes # (0.6-4.6) K/mcL Monocytes # (0.0-1.3) K/mcL Eosinophils # (0.0-0.6) K/mcL Basophils # (0.0-0.2) K/mcL Immature Plt Fraction (1.1-6.1) % PT (9.4-12.1) Seconds INR APTT (26.0-36.0) Seconds Sample Site ABG pH (7.32-7.45) pH Units ABG pCO2 (35-45) mmHg ABG pO2 (85-104) mmHg ABG HCO3 (21-27) mEq/L ABG Total CO2 (20-26) mEq/L ABG O2 Saturation (95-98) % ABG Base Excess (-2 to 3) mEq/L [place] Test O2 Delivery Device Inspired O2 (1-15=lpm zo98-404=%) Sodium (136-145) mEq/L Potassium (3.5-4.5) mEq/L Chloride (98-109) mEq/L Carbon Dioxide (19-29) mEq/L BUN (8-26) mg/dL Creatinine (0.72-1.25) mg/dL Est GFR ( Amer) (> 60) Est GFR (Non-Af Amer) (> 60) BUN/Creatinine Ratio (6-26) Glucose (70-99) mg/dL Calculated Osmolality (280-300) Lactic Acid (0.5-2.2) mmol/L Calcium (8.6-10.8) mg/dL Phosphorus (2.3-4.7) mg/dL Magnesium (1.6-2.6) mg/dL Total Bilirubin (0.2-1.2) mg/dL Direct Bilirubin (0.0-0.5) mg/dL Indirect Bilirubin (0.0-1.2) mg/dL AST (5-34) Units/L ALT (0-55) Units/L Alkaline Phosphatase (38-126) Units/L Ammonia 58 (18-72) mcmol/L Troponin I (0-0.03) ng/mL B-Natriuretic Peptide (0-100) pg/mL Serum Total Protein (6.0-8.3) g/dL Albumin (3.5-5.0) g/dL Globulin (2.4-3.5) g/dL Albumin/Globulin Ratio (1.1-2.2) Lipase (8-78) Units/L Beta-Hydroxybutyric Acd 0.24 (0.02-0.27) mmol/L Urine Color Yellow (Yellow) Urine Clarity Clear (Clear) Urine pH 6.0 (5.0-8.0) pH Units Ur Specific [place] 1.028 H (1.010-1.025) Urine Protein Negative (Neg-Trace) mg/dL Urine Glucose (UA) >=1000 H (Normal) mg/dL Urine Ketones Negative (Negative) mg/dL Urine Blood Negative (Negative) Urine Nitrite Negative (Negative) Urine Bilirubin Negative (Negative) Urine Urobilinogen Normal (Normal) mg/dL Ur Leukocyte Esterase Negative (Negative) Ur Culture Indicated? NO (NO) 04/06/17 04/06/17 Range/Units 21:15 22:53 WBC (4.3-11.1) K/mcL RBC (4.19-5.50) M/mcL Hgb (12.9-16.9) g/dL Hct (37.5-50.1) % MCV (83.0-100.0) fL MCH (28.0-33.3) pg MCHC (31.6-35.5) g/dL RDW (11.5-14.5) % Plt Count (140-400) K/mcL MPV (9.4-12.4) fL Immature Gran % (0-4) % Seg Neutrophils % % Lymphocytes % % Monocytes % % Eosinophils % % Basophils % % Neutrophils # (1.6-8.9) K/mcL Lymphocytes # (0.6-4.6) K/mcL Monocytes # (0.0-1.3) K/mcL Eosinophils # (0.0-0.6) K/mcL Basophils # (0.0-0.2) K/mcL Immature Plt Fraction (1.1-6.1) % PT (9.4-12.1) Seconds INR APTT (26.0-36.0) Seconds Sample Site L Radial ABG pH 7.33 (7.32-7.45) pH Units ABG pCO2 48 H (35-45) mmHg ABG pO2 87 (85-104) mmHg ABG HCO3 25 (21-27) mEq/L ABG Total CO2 27 H (20-26) mEq/L ABG O2 Saturation 96 (95-98) % ABG Base Excess -1 (-2 to 3) mEq/L [place] Test N/A O2 Delivery Device Cannula Inspired O2 28.0 (1-15=lpm mx24-881=%) Sodium (136-145) mEq/L Potassium (3.5-4.5) mEq/L Chloride (98-109) mEq/L Carbon Dioxide (19-29) mEq/L BUN (8-26) mg/dL Creatinine (0.72-1.25) mg/dL Est GFR ( Amer) (> 60) Est GFR (Non-Af Amer) (> 60) BUN/Creatinine Ratio (6-26) Glucose (70-99) mg/dL Calculated Osmolality (280-300) Lactic Acid 1.6 (0.5-2.2) mmol/L Calcium (8.6-10.8) mg/dL Phosphorus (2.3-4.7) mg/dL Magnesium (1.6-2.6) mg/dL Total Bilirubin (0.2-1.2) mg/dL Direct Bilirubin (0.0-0.5) mg/dL Indirect Bilirubin (0.0-1.2) mg/dL AST (5-34) Units/L ALT (0-55) Units/L Alkaline Phosphatase (38-126) Units/L Ammonia (18-72) mcmol/L Troponin I (0-0.03) ng/mL B-Natriuretic Peptide (0-100) pg/mL Serum Total Protein (6.0-8.3) g/dL Albumin (3.5-5.0) g/dL Globulin (2.4-3.5) g/dL Albumin/Globulin Ratio (1.1-2.2) Lipase (8-78) Units/L Beta-Hydroxybutyric Acd (0.02-0.27) mmol/L Urine Color (Yellow) Urine Clarity (Clear) Urine pH (5.0-8.0) pH Units Ur Specific [place] (1.010-1.025) Urine Protein (Neg-Trace) mg/dL Urine Glucose (UA) (Normal) mg/dL Urine Ketones (Negative) mg/dL Urine Blood (Negative) Urine Nitrite (Negative) Urine Bilirubin (Negative) Urine Urobilinogen (Normal) mg/dL Ur Leukocyte Esterase (Negative) Ur Culture Indicated? (NO) - Radiology Data Radiology results reviewed: Yes I reviewed the patient's radiology results. - EKG Data EKG #1 EKG attestation: Yes I reviewed and interpreted this EKG. EKG results narrative: 20:44 Ventricular rate 80 beats per minute, NC interval 170 ms, QRS duration 94 ms, QT 401 ms, QTC 437 ms, normal axis. Sinus rhythm with a ventricular rate of 80 bpm. There is no evidence of any acute ST segment changes on the echocardiogram that are suggestive of ischemia.
[2017-04-06 21:04] LABS: Albumin 2.9 g/dL (3.5-5.0); Albumin/Globulin Ratio 0.7 (1.1-2.2); Bilirubin,Direct 0.3 mg/dL (0.0-0.5); Bilirubin,Indirect 0.3 mg/dL (0.0-1.2); Bilirubin,Total 0.6 mg/dL (0.2-1.2); Calcium 9.2 mg/dL (8.6-10.8); Globulin 4.4 g/dL (2.4-3.5); Magnesium 1.8 mg/dL (1.6-2.6); Phosphorous 4.3 mg/dL (2.3-4.7); Potassium 4.1 mEq/L (3.5-4.5); Total Protein 7.3 g/dL (6.0-8.3)
[2017-04-06 21:11] LABS: Bilirubin,Urine Negative (Negative); Blood,Urine Negative (Negative); Clarity,Urine Clear (Clear); Color,Urine Yellow (Yellow); Glucose,Urine (UA) >=1000 mg/dL (Normal); Ketones,Urine Negative (Negative); Leukocyte Esterase,Urine Negative (Negative); Nitrite,Urine Negative (Negative); Protein,Urine Negative (Neg-Trace); Specific Gravity,Urine 1.028 (1.010-1.025); Urobilinogen,Urine Normal (Normal)
[2017-04-06 21:18] LABS: ABG Base Excess -1 mEq/L (-2 to 3); ABG HCO3 25 mEq/L (21-27); ABG Oxygen Saturation 96 % (95-98); ABG PCO2 48 mmHg (35-45); ABG PH 7.33 pH Units (7.32-7.45); ABG PO2 87 mmHg (85-104); ABG TCO2 27 mEq/L (20-26)
[2017-04-06] MEDS ORDERED: Insulin Human Regular 10 UNIT in 0.9 % Sodium Chloride 10 ML IV ONE (21:48)
[2017-04-06] MEDS ORDERED: Ondansetron 4 MG/2 ML VIAL IVP ONE (22:32)
[2017-04-06] MEDS ORDERED: *HR* FentaNYL (PF) 100 MCG/2 ML VIAL IVP ONE (22:32)
[2017-04-06] MEDS ORDERED: Levofloxacin 750 MG/150 ML 750 MG/150 ML BAG IVPB ONE (23:26)
--- NOTE | 2017-04-06 23:30 | Emergency Department Note ---
START Narrative - START START: I examined this patient and my medical decision-making was reviewed with the Resident Physician. I agree with the documented findings, disposition and treatment plan as described except to the extent set forth below. 67 showed male presents emergency room for elevated blood sugar concerns. States his blood sugars are running in the 500s. Patient has been very somnolent. This is similar to his past presentation to the ER last week. He was admitted to the [facility] at that time for depression and suicidal ideation. He presents today to the ER for concerns for the sugar issue. He is also complaining of some right-sided abdominal pain. It is unclear whether he is actually compliant with his diabetes medications. He denies any cough. No documented fevers. No vomiting or diarrhea. On his workup here shows him to be slightly dehydrated with an elevation of his creatinine. Patient was also found to have bilateral lower lobe infiltrates concerning for possible pneumonia. This could be the cause of his elevated blood sugars as well. He was given insulin. He has an allergy to vancomycin so therefore we cannot cover him with Vanco for MRSA coverage. We will give him Levaquin and cefepime for pseudomonal coverage as [facility] He has been given some IV fluids. He was not in DKA. His pH was okay. Patient was given over 2 L of fluid. He was given the insulin and then the above antibiotics. This CT scan did not reveal any intra-abdominal pathology but again did find some infiltrates in his lungs. His vitals are stable at this time. Medical care time spent was 40 minutes. Time spent and medical management, fluid resuscitation, and workup of his elevated sugars as well as treatment of hyperglycemia and possible pneumonia.
[2017-04-06] MEDS ORDERED: Cefepime HCl 2,000 MG in Water for inj. (sterile) 10 ML IVP SCH (23:58)
--- NOTE | 2017-04-07 00:20 | Emergency Department Note ---
Disposition Clinical Impression: Hyperglycemia without ketosis, Acute renal insufficiency, Dehydration Pneumonia Qualifiers: Pneumonia type: due to unspecified organism Laterality: bilateral Lung location : lower lobe of lung Qualified Code(s): J18.9 - Pneumonia, unspecified organism Disposition: Admitted As Inpatient General Adult HPI - General Chief complaint: ED General Medical Stated complaint: Elevated Blood Sugar Source: EMS - History of Present Illness Pain Scale: 2 - Related Data Home Medications Medication Instructions Recorded Confirmed Cholecalciferol (Vitamin D3) 2,000 unit PO DAILY 05/13/15 04/06/17 [Vitamin D] Insulin ASPART [NovoLOG] 35 unit SQ TIDAC 05/13/15 04/06/17 Aspirin Enteric Coated [Aspirin EC] 81 mg PO DAILY 11/13/15 04/06/17 Atorvastatin [Lipitor] 40 mg PO HS 11/13/15 04/06/17 Insulin Glargine,Hum.rec.anlog 80 unit SQ BID 11/13/15 04/06/17 [Lantus Solostar] Omeprazole [PriLOSEC] 20 mg PO DAILY 11/13/15 04/06/17 Tamsulosin [Flomax] 0.4 mg PO DAILY 11/13/15 04/06/17 Furosemide [Lasix] 40 mg PO DAILY 05/16/16 04/06/17 risperiDONE [Risperdal] 3 mg PO HS 05/16/16 04/06/17 Atenolol [Tenormin] 50 mg PO DAILY 05/29/16 04/06/17 Ipratropium/Albuterol Neb [Duoneb] 3 ml IH QID 08/10/16 04/06/17 Sertraline [Zoloft] 100 mg PO HS 10/27/16 04/06/17 Spironolactone [Aldactone] 50 mg PO DAILY 10/27/16 04/06/17 Buprenorphine HCl/Naloxone HCl 2 tab SL BID 01/27/17 04/06/17 [Buprenorphin-Naloxon 8-2 mg Sl] Lisinopril 2.5 mg PO HS 02/03/17 04/06/17 Melatonin [Melatin] 9 mg PO HS 02/03/17 04/06/17 Insulin ASPART [NovoLOG] 3 - 8 unit SQ TID PRN 04/06/17 04/06/17 Lidocaine Patch [Lidoderm 5% patch] 1 each TP DAILY 04/06/17 04/06/17 Rifaximin [Xifaxan] 550 mg PO BID 04/06/17 04/06/17 Allergies Allergy/AdvReac Type Severity Reaction Status Date / Time Iodinated Contrast- Oral and Allergy Difficulty Verified 03/01/17 19:16 IV Dye Breathing ketorolac [From Toradol] Allergy Nausea Verified 03/01/17 19:16 Penicillins Allergy Rash Verified 03/01/17 19:16 butorphanol [From Stadol] AdvReac Nausea Verified 03/01/17 19:16 celecoxib AdvReac unknown Verified 03/01/17 19:16 diphenhydramine AdvReac See Verified 03/01/17 19:16 [From Benadryl] Comments gabapentin AdvReac unknown Verified 03/01/17 19:16 Methadone AdvReac See Verified 03/01/17 19:16 Comments mirtazapine AdvReac unknown Verified 03/01/17 19:16 morphine AdvReac See Verified 03/01/17 19:16 Comments tramadol AdvReac unknown Verified 02/03/17 21:00 vancomycin AdvReac unknown Verified 02/03/17 21:00 All systems ED: reviewed and negative except as stated. Review of Systems: As Per HPI Constitutional: Reports: chills. Denies: fever Cardiovascular: Denies: chest pain Respiratory: Reports: cough. Denies: dyspnea Gastrointestinal: Reports: abdominal pain Genitourinary: Denies: urgency Musculoskeletal: Denies: back pain Integumentary: Denies: rash Neurological: Denies: headache Endocrine: Reports: fatigue Past Medical History - Past Medical History Medical history: Reports: arthritis, cirrhosis, CHF, COPD, coronary artery disease, diabetes, GERD, hyperlipidemia, hypertension, liver disease, osteoporosis, TIA Surgical history: Reports: appendectomy, cholecystectomy, herniorrhaphy, knee replacement, other Psychiatric history: Reports: anxiety, depression, panic disorder, PTSD, previous psychiatric hospitalization - Social History Smoking Status: Never smoker Smokeless Tobacco Status: No Alcohol use: Reports: none Drug use: Reports: none Physical Exam General: Obese 67-year-old male who appears to be uncomfortable, somnolent Head: autraumatic, EOMI, no conjuncitval pallor, no scleral icterus, Mouth: oral mucous membranes dry Neck: neck soft, trachea midline Chest:: Equal chest wall rise Lungs: Normal lungs sounds bilaterally, no wheezes, no respiratory distress Heart: normal heart sounds, normal rate and rhythm, Abdomen: Obese, mildly distended, right lower quadrant tenderness to palpation, no rigidity, no guarding, no rebdound tenderness Lower Extremities: no pedal edema, calves non-tender Integumentary: Skin warm, dry, and intact Neuro: Alert and oriented to person place and time Psych: normal affect, normal mood - General General appearance: lethargic Course Vital Signs Temperature 98.1 F 04/06/17 20:07 Pulse Rate 82 04/06/17 20:07 Respiratory Rate 24 04/06/17 20:07 Blood Pressure 82/41 04/06/17 20:07 O2 Sat by Pulse Oximetry 95 04/06/17 20:07 Temperature 98.1 F 04/06/17 20:07 Pulse Rate 82 04/06/17 21:23 Respiratory Rate 26 04/06/17 21:23 Blood Pressure 107/58 04/06/17 21:23 O2 Sat by Pulse Oximetry 98 04/06/17 21:23 Oxygen Delivery Oxygen Delivery Nasal Cannula Medical Decision Making - Lab Data Result diagrams: 04/06/17 20:28 04/06/17 20:28 Lab Results 04/06/17 04/06/17 04/06/17 Range/Units 20:28 20:28 20:28 WBC 4.8 (4.3-11.1) K/mcL RBC 3.49 L (4.19-5.50) M/mcL Hgb 9.4 L D (12.9-16.9) g/dL Hct 28.8 L (37.5-50.1) % MCV 82.5 L (83.0-100.0) fL MCH 26.9 L (28.0-33.3) pg MCHC 32.6 (31.6-35.5) g/dL RDW 14.9 H (11.5-14.5) % Plt Count 79 L (140-400) K/mcL MPV 11.0 (9.4-12.4) fL Immature Gran % 0.2 (0-4) % Seg Neutrophils % 62.5 % Lymphocytes % 23.8 % Monocytes % 11.0 % Eosinophils % 2.3 % Basophils % 0.2 % Neutrophils # 3.0 (1.6-8.9) K/mcL Lymphocytes # 1.1 (0.6-4.6) K/mcL Monocytes # 0.5 (0.0-1.3) K/mcL Eosinophils # 0.1 (0.0-0.6) K/mcL Basophils # 0.0 (0.0-0.2) K/mcL Immature Plt Fraction 8.9 H (1.1-6.1) % PT 15.1 H (9.4-12.1) Seconds INR 1.4 APTT 35.2 (26.0-36.0) Seconds Sample Site ABG pH (7.32-7.45) pH Units ABG pCO2 (35-45) mmHg ABG pO2 (85-104) mmHg ABG HCO3 (21-27) mEq/L ABG Total CO2 (20-26) mEq/L ABG O2 Saturation (95-98) % ABG Base Excess (-2 to 3) mEq/L [place] Test O2 Delivery Device Inspired O2 (1-15=lpm [id number]=%) Sodium 131 L (136-145) mEq/L Potassium 4.1 (3.5-4.5) mEq/L Chloride 97 L (98-109) mEq/L Carbon Dioxide 23 (19-29) mEq/L BUN 20 (8-26) mg/dL Creatinine 2.06 H (0.72-1.25) mg/dL Est GFR ( Amer) 39 L (> 60) Est GFR (Non-Af Amer) 32 L (> 60) BUN/Creatinine Ratio 10 (6-26) Glucose 469 H (70-99) mg/dL Calculated Osmolality 295 (280-300) Lactic Acid (0.5-2.2) mmol/L Calcium 9.2 (8.6-10.8) mg/dL Phosphorus 4.3 (2.3-4.7) mg/dL Magnesium 1.8 (1.6-2.6) mg/dL Total Bilirubin 0.6 (0.2-1.2) mg/dL Direct Bilirubin 0.3 (0.0-0.5) mg/dL Indirect Bilirubin 0.3 (0.0-1.2) mg/dL AST 37 H (5-34) Units/L ALT 42 (0-55) Units/L Alkaline Phosphatase 129 H (38-126) Units/L Ammonia (18-72) mcmol/L Troponin I (0-0.03) ng/mL B-Natriuretic Peptide (0-100) pg/mL Serum Total Protein 7.3 (6.0-8.3) g/dL Albumin 2.9 L (3.5-5.0) g/dL Globulin 4.4 H (2.4-3.5) g/dL Albumin/Globulin Ratio 0.7 L (1.1-2.2) Lipase 91 H (8-78) Units/L Beta-Hydroxybutyric Acd (0.02-0.27) mmol/L Urine Color (Yellow) Urine Clarity (Clear) Urine pH (5.0-8.0) pH Units Ur Specific [place] (1.010-1.025) Urine Protein (Neg-Trace) mg/dL Urine Glucose (UA) (Normal) mg/dL Urine Ketones (Negative) mg/dL Urine Blood (Negative) Urine Nitrite (Negative) Urine Bilirubin (Negative) Urine Urobilinogen (Normal) mg/dL Ur Leukocyte Esterase (Negative) Ur Culture Indicated? (NO) 04/06/17 04/06/17 04/06/17 Range/Units 20:28 20:28 20:28 WBC (4.3-11.1) K/mcL RBC (4.19-5.50) M/mcL Hgb (12.9-16.9) g/dL Hct (37.5-50.1) % MCV (83.0-100.0) fL MCH (28.0-33.3) pg MCHC (31.6-35.5) g/dL RDW (11.5-14.5) % Plt Count (140-400) K/mcL MPV (9.4-12.4) fL Immature Gran % (0-4) % Seg Neutrophils % % Lymphocytes % % Monocytes % % Eosinophils % % Basophils % % Neutrophils # (1.6-8.9) K/mcL Lymphocytes # (0.6-4.6) K/mcL Monocytes # (0.0-1.3) K/mcL Eosinophils # (0.0-0.6) K/mcL Basophils # (0.0-0.2) K/mcL Immature Plt Fraction (1.1-6.1) % PT (9.4-12.1) Seconds INR APTT (26.0-36.0) Seconds Sample Site ABG pH (7.32-7.45) pH Units ABG pCO2 (35-45) mmHg ABG pO2 (85-104) mmHg ABG HCO3 (21-27) mEq/L ABG Total CO2 (20-26) mEq/L ABG O2 Saturation (95-98) % ABG Base Excess (-2 to 3) mEq/L [place] Test O2 Delivery Device Inspired O2 (1-15=lpm [id number]=%) Sodium (136-145) mEq/L Potassium (3.5-4.5) mEq/L Chloride (98-109) mEq/L Carbon Dioxide (19-29) mEq/L BUN (8-26) mg/dL Creatinine (0.72-1.25) mg/dL Est GFR ( Amer) (> 60) Est GFR (Non-Af Amer) (> 60) BUN/Creatinine Ratio (6-26) Glucose (70-99) mg/dL Calculated Osmolality (280-300) Lactic Acid 3.7 H (0.5-2.2) mmol/L Calcium (8.6-10.8) mg/dL Phosphorus (2.3-4.7) mg/dL Magnesium (1.6-2.6) mg/dL Total Bilirubin (0.2-1.2) mg/dL Direct Bilirubin (0.0-0.5) mg/dL Indirect Bilirubin (0.0-1.2) mg/dL AST (5-34) Units/L ALT (0-55) Units/L Alkaline Phosphatase (38-126) Units/L Ammonia (18-72) mcmol/L Troponin I 0.00 (0-0.03) ng/mL B-Natriuretic Peptide 47 (0-100) pg/mL Serum Total Protein (6.0-8.3) g/dL Albumin (3.5-5.0) g/dL Globulin (2.4-3.5) g/dL Albumin/Globulin Ratio (1.1-2.2) Lipase (8-78) Units/L Beta-Hydroxybutyric Acd (0.02-0.27) mmol/L Urine Color (Yellow) Urine Clarity (Clear) Urine pH (5.0-8.0) pH Units Ur Specific [place] (1.010-1.025) Urine Protein (Neg-Trace) mg/dL Urine Glucose (UA) (Normal) mg/dL Urine Ketones (Negative) mg/dL Urine Blood (Negative) Urine Nitrite (Negative) Urine Bilirubin (Negative) Urine Urobilinogen (Normal) mg/dL Ur Leukocyte Esterase (Negative) Ur Culture Indicated? (NO) 04/06/17 04/06/17 04/06/17 Range/Units 20:28 20:47 21:01 WBC (4.3-11.1) K/mcL RBC (4.19-5.50) M/mcL Hgb (12.9-16.9) g/dL Hct (37.5-50.1) % MCV (83.0-100.0) fL MCH (28.0-33.3) pg MCHC (31.6-35.5) g/dL RDW (11.5-14.5) % Plt Count (140-400) K/mcL MPV (9.4-12.4) fL Immature Gran % (0-4) % Seg Neutrophils % % Lymphocytes % % Monocytes % % Eosinophils % % Basophils % % Neutrophils # (1.6-8.9) K/mcL Lymphocytes # (0.6-4.6) K/mcL Monocytes # (0.0-1.3) K/mcL Eosinophils # (0.0-0.6) K/mcL Basophils # (0.0-0.2) K/mcL Immature Plt Fraction (1.1-6.1) % PT (9.4-12.1) Seconds INR APTT (26.0-36.0) Seconds Sample Site ABG pH (7.32-7.45) pH Units ABG pCO2 (35-45) mmHg ABG pO2 (85-104) mmHg ABG HCO3 (21-27) mEq/L ABG Total CO2 (20-26) mEq/L ABG O2 Saturation (95-98) % ABG Base Excess (-2 to 3) mEq/L [place] Test O2 Delivery Device Inspired O2 (1-15=lpm [id number]=%) Sodium (136-145) mEq/L Potassium (3.5-4.5) mEq/L Chloride (98-109) mEq/L Carbon Dioxide (19-29) mEq/L BUN (8-26) mg/dL Creatinine (0.72-1.25) mg/dL Est GFR ( Amer) (> 60) Est GFR (Non-Af Amer) (> 60) BUN/Creatinine Ratio (6-26) Glucose (70-99) mg/dL Calculated Osmolality (280-300) Lactic Acid (0.5-2.2) mmol/L Calcium (8.6-10.8) mg/dL Phosphorus (2.3-4.7) mg/dL Magnesium (1.6-2.6) mg/dL Total Bilirubin (0.2-1.2) mg/dL Direct Bilirubin (0.0-0.5) mg/dL Indirect Bilirubin (0.0-1.2) mg/dL AST (5-34) Units/L ALT (0-55) Units/L Alkaline Phosphatase (38-126) Units/L Ammonia 58 (18-72) mcmol/L Troponin I (0-0.03) ng/mL B-Natriuretic Peptide (0-100) pg/mL Serum Total Protein (6.0-8.3) g/dL Albumin (3.5-5.0) g/dL Globulin (2.4-3.5) g/dL Albumin/Globulin Ratio (1.1-2.2) Lipase (8-78) Units/L Beta-Hydroxybutyric Acd 0.24 (0.02-0.27) mmol/L Urine Color Yellow (Yellow) Urine Clarity Clear (Clear) Urine pH 6.0 (5.0-8.0) pH Units Ur Specific [place] 1.028 H (1.010-1.025) Urine Protein Negative (Neg-Trace) mg/dL Urine Glucose (UA) >=1000 H (Normal) mg/dL Urine Ketones Negative (Negative) mg/dL Urine Blood Negative (Negative) Urine Nitrite Negative (Negative) Urine Bilirubin Negative (Negative) Urine Urobilinogen Normal (Normal) mg/dL Ur Leukocyte Esterase Negative (Negative) Ur Culture Indicated? NO (NO) 04/06/17 04/06/17 Range/Units 21:15 22:53 WBC (4.3-11.1) K/mcL RBC (4.19-5.50) M/mcL Hgb (12.9-16.9) g/dL Hct (37.5-50.1) % MCV (83.0-100.0) fL MCH (28.0-33.3) pg MCHC (31.6-35.5) g/dL RDW (11.5-14.5) % Plt Count (140-400) K/mcL MPV (9.4-12.4) fL Immature Gran % (0-4) % Seg Neutrophils % % Lymphocytes % % Monocytes % % Eosinophils % % Basophils % % Neutrophils # (1.6-8.9) K/mcL Lymphocytes # (0.6-4.6) K/mcL Monocytes # (0.0-1.3) K/mcL Eosinophils # (0.0-0.6) K/mcL Basophils # (0.0-0.2) K/mcL Immature Plt Fraction (1.1-6.1) % PT (9.4-12.1) Seconds INR APTT (26.0-36.0) Seconds Sample Site L Radial ABG pH 7.33 (7.32-7.45) pH Units ABG pCO2 48 H (35-45) mmHg ABG pO2 87 (85-104) mmHg ABG HCO3 25 (21-27) mEq/L ABG Total CO2 27 H (20-26) mEq/L ABG O2 Saturation 96 (95-98) % ABG Base Excess -1 (-2 to 3) mEq/L [place] Test N/A O2 Delivery Device Cannula Inspired O2 28.0 (1-15=lpm bj23-400=%) Sodium (136-145) mEq/L Potassium (3.5-4.5) mEq/L Chloride (98-109) mEq/L Carbon Dioxide (19-29) mEq/L BUN (8-26) mg/dL Creatinine (0.72-1.25) mg/dL Est GFR ( Amer) (> 60) Est GFR (Non-Af Amer) (> 60) BUN/Creatinine Ratio (6-26) Glucose (70-99) mg/dL Calculated Osmolality (280-300) Lactic Acid 1.6 (0.5-2.2) mmol/L Calcium (8.6-10.8) mg/dL Phosphorus (2.3-4.7) mg/dL Magnesium (1.6-2.6) mg/dL Total Bilirubin (0.2-1.2) mg/dL Direct Bilirubin (0.0-0.5) mg/dL Indirect Bilirubin (0.0-1.2) mg/dL AST (5-34) Units/L ALT (0-55) Units/L Alkaline Phosphatase (38-126) Units/L Ammonia (18-72) mcmol/L Troponin I (0-0.03) ng/mL B-Natriuretic Peptide (0-100) pg/mL Serum Total Protein (6.0-8.3) g/dL Albumin (3.5-5.0) g/dL Globulin (2.4-3.5) g/dL Albumin/Globulin Ratio (1.1-2.2) Lipase (8-78) Units/L Beta-Hydroxybutyric Acd (0.02-0.27) mmol/L Urine Color (Yellow) Urine Clarity (Clear) Urine pH (5.0-8.0) pH Units Ur Specific [place] (1.010-1.025) Urine Protein (Neg-Trace) mg/dL Urine Glucose (UA) (Normal) mg/dL Urine Ketones (Negative) mg/dL Urine Blood (Negative) Urine Nitrite (Negative) Urine Bilirubin (Negative) Urine Urobilinogen (Normal) mg/dL Ur Leukocyte Esterase (Negative) Ur Culture Indicated? (NO)
[2017-04-07 03:07] LABS: ABG Base Excess 1 mEq/L (-2 to 3); ABG HCO3 28 mEq/L (21-27); ABG Oxygen Saturation 96 % (95-98); ABG PCO2 53 mmHg (35-45); ABG PH 7.32 pH Units (7.32-7.45); ABG PO2 90 mmHg (85-104); ABG TCO2 29 mEq/L (20-26)
[2017-04-07] MEDS ORDERED: Ondansetron 4 MG/2 ML VIAL IVP PRN (03:09)
[2017-04-07] MEDS ORDERED: *HR* Dextrose 50 % in Water (Syg) 50 ML SYRINGE IVP PRN (03:15)
[2017-04-07] MEDS ORDERED: Dextrose Gel 15 GM PO PRN ×2 (03:15)
[2017-04-07] MEDS ORDERED: D5% in Water 1,000 ML IVC PRN (03:15)
--- NOTE | 2017-04-07 04:39 | Internal Med History&Physical ---
Date of Encounter: 04/07/17 Time of Encounter: 02:50 Assessment and Plan (1) Acute hypercapnic respiratory failure Current visit: Yes Status: Acute 1. I placed patient on BiPap and am withholding any further sedating medications. 2. Will provide aerosols as needed for wheezing. 3. Wean off Bipap when more awake. 4. ABG's as needed. (2) Pneumonia Current visit: Yes Status: Suspected 1. I am unable to obtain any history whatsoever. 2. Based upon limited ER records and imaging studies, will treat for possible pneumonia with antibiotics given in ER (Cefepime and Levaquin). 3. Bipap and respiratory support as needed. 4. Blood cultures obtained in ER. Qualifiers: Pneumonia type: due to unspecified organism Laterality: bilateral Lung location: lower lobe of lung Qualified Code(s): J18.9 - Pneumonia, unspecified organism (3) Acute encephalopathy Current visit: Yes Status: Acute 1. I suspect this is due to medication effect -- opiates plus sedating psychiatric medications. 2. Hold meds for now until patient is awake and provide further history. 3. I ordered STAT Head CT (negative) and urine drug screen. (4) IDDM (insulin dependent diabetes mellitus) Current visit: Yes Status: Chronic 1. Will keep npo for now and place him on SSI. 2. Monitor glucose and adjust and add basal insulin as necessary. (5) DVT prophylaxis Current visit: Yes Status: Acute 1. EPCD's. 2. Patient with liver disease, low platelets, coagulopathy of liver disease. Thus, no anticoagulants due to high bleeding risk. Internal Medicine - H&P: HPI Chief complaint: somnolence; altered mental state Admitted From: Emergency Dept Plans for Post Hospital Care: Transfer Assisted Facility History of present illness: Mr. Ramirez is a 67 year old male who was admitted from the ER to the hospitalist service for vague complaints of abdominal pain and altered mental status. Once he arrived to the floor, nursing staff paged me to see him right away as he was quite somnolent and minimally responsive. When I arrived to the room, patient was somnolent and only responded to painful and very loud stimuli. He drifted right back to sleep thereafter and did not answer any questions whatsoever. I am therefore unable to obtain any history from him whatsoever. I ordered a stat glucose level which was stable in the mid 100s. I also ordered a stat ABG and placed him on BiPAP for concerns of possible hypercapnic respiratory failure and possible opiate side effects. He is currently maintaining his airway. I briefly reviewed his medication list at the bedside with his nurse and noted that he is on Suboxone. He was given a dose of fentanyl in the ER for his abdominal pain. I am suspicious that he is somnolent likely from his medications. I am hesitant to reverse him with Narcan as I am concerned he might experience a withdrawal seizure and/or side effects if we administer Narcan. However, if necessary, we will administer Narcan. I reviewed his old records and note that he appears to have a history of cirrhosis, diabetes, opiate dependency, and PTSD. He is on several medications which can affect neurologic and psychiatric status. Workup in the ER was concerning for possible pneumonia. We will treat him as such, hydrate him with IV fluids, place him on BiPAP for respiratory support, and monitor him closely from a cardiopulmonary standpoint. 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 If necessary, will proceed with Narcan administration. I discussed this at length with patient's nurse and he verbalized my requests and understanding. Past Med Surg Social Fam HX - Past Medical History Source: unable to obtain (from patient), old records reviewed, nursing notes reviewed Medical history: arthritis, cirrhosis, CHF, COPD, coronary artery disease, diabetes, GERD, hyperlipidemia, hypertension, liver disease, osteoporosis, TIA Psychiatric history: anxiety, depression, panic disorder, PTSD, previous psychiatric hospitalization - Past Surgical History Surgical History: appendectomy, cholecystectomy, herniorrhaphy, knee replacement , other - Social History Smoking Status: Never smoker Smokeless Tobacco Status: No Alcohol use: none Drug use: none - Family History Mother Adopted: No Living Status: Hx Family Cancer: Yes Hx Family Endocrine Disorder: Yes (DM2) Father Living Status: Hx Family Cardiac Disorders: No Internal Medicine - H&P: Meds Cholecalciferol (Vitamin D3) [Vitamin D] 2,000 unit PO DAILY 05/13/15 [History] Insulin ASPART [NovoLOG] 35 unit SQ TIDAC 05/13/15 [History] Aspirin Enteric Coated [Aspirin EC] 81 mg PO DAILY 11/13/15 [History] Atorvastatin [Lipitor] 40 mg PO HS 11/13/15 [History] Insulin Glargine,Hum.rec.anlog [Lantus Solostar] 80 unit SQ BID 11/13/15 [ History] Omeprazole [PriLOSEC] 20 mg PO DAILY 11/13/15 [History] Tamsulosin [Flomax] 0.4 mg PO DAILY 11/13/15 [History] Furosemide [Lasix] 40 mg PO DAILY 05/16/16 [History] risperiDONE [Risperdal] 3 mg PO HS 05/16/16 [History] Atenolol [Tenormin] 50 mg PO DAILY 05/29/16 [History] Ipratropium/Albuterol Neb [Duoneb] 3 ml IH QID 08/10/16 [History] Sertraline [Zoloft] 100 mg PO HS 10/27/16 [History] Spironolactone [Aldactone] 50 mg PO DAILY 10/27/16 [History] Buprenorphine HCl/Naloxone HCl [Buprenorphin-Naloxon 8-2 mg Sl] 2 tab SL BID [History] Lisinopril 2.5 mg PO HS 02/03/17 [History] Melatonin [Melatin] 9 mg PO HS 02/03/17 [History] Insulin ASPART [NovoLOG] 3 - 8 unit SQ TID PRN 04/06/17 [History] Lidocaine Patch [Lidoderm 5% patch] 1 each TP DAILY 04/06/17 [History] Rifaximin [Xifaxan] 550 mg PO BID 04/06/17 [History] 3 Allergy/AdvReac Type Severity Reaction Status Date / Time Iodinated Contrast- Oral and Allergy Difficulty Verified 03/01/17 19:16 IV Dye Breathing ketorolac [From Toradol] Allergy Nausea Verified 03/01/17 19:16 Penicillins Allergy Rash Verified 03/01/17 19:16 butorphanol [From Stadol] AdvReac Nausea Verified 03/01/17 19:16 celecoxib AdvReac unknown Verified 03/01/17 19:16 diphenhydramine AdvReac See Verified 03/01/17 19:16 [From Benadryl] Comments gabapentin AdvReac unknown Verified 03/01/17 19:16 Methadone AdvReac See Verified 03/01/17 19:16 Comments mirtazapine AdvReac unknown Verified 03/01/17 19:16 morphine AdvReac See Verified 03/01/17 19:16 Comments tramadol AdvReac unknown Verified 02/03/17 21:00 vancomycin AdvReac unknown Verified 02/03/17 21:00 ROS unobtainable: due to mental status - Constitutional Vitals: Temp Pulse Resp BP Pulse Ox 97.7 F 87 14 132/64 99 04/07/17 00:53 04/07/17 00:53 04/07/17 03:04 04/07/17 00:53 04/07/17 03:04 General appearance: Present: no acute distress. Absent: answers questions appropriately Exam: Patient responds to painful and loud verbal stimuli only; drifts right back to sleep immediately thereafter. Pupils roughly 2-3 mm and reactive bilaterally. - Head Head exam: Present: atraumatic, normal inspection - Expanded Head Exam Head exam expanded: Absent: abrasion, contusion, general tenderness - Eye Eye exam: Present: PERRL. Absent: scleral icterus - ENT ENT exam: Present: mucous membranes dry, normal exam - Neck Neck exam general surgery: Present: full ROM, supple, trachea midline. Absent: lymphadenopathy, tenderness, nuchal rigidity - Expanded Neck Exam Neck exam: Absent: carotid bruit - Respiratory Respiratory exam: Present: prolonged expiratory phase, rhonchi, wheezes. Absent : accessory muscle use, chest wall tenderness, rales Additional comments: maintaining his airway - Cardiovascular Cardiovascular exam: Present: distant heart sounds, RRR, +S1, +S2. Absent: diastolic murmur, JVD, systolic murmur - GI/Abdominal GI/Abdominal exam: Present: soft. Absent: guarding, hepatomegaly, mass, rebound , splenomegaly, tenderness - Extremities Exam Extremities exam: Present: warm, radial pulses palpable and symmetrical. Absent : calf tenderness, tenderness - Back Exam Back exam: Absent: CVA tenderness (L), CVA tenderness (R) - Neurological Exam Additional comments: somnolent; responds only to pain and loud verbal stimuli as above - Psychiatric Additional comments: somnolent as noted above - Skin Skin exam: Present: dry, warm. Absent: rash Internal Med - H&P Results - Labs CBC & Chem 7: 04/06/17 20:28 04/06/17 20:28 - ABG Interpretation ABG results: 04/07/17 03:02 ABG pH 7.32 ABG pCO2 53 H ABG pO2 90 ABG HCO3 28 H ABG Total CO2 29 H ABG O2 Saturation 96 ABG Base Excess 1 - EKG Data -: EKG Interpreted by Myself - EKG Data Prior EKG available for review: no EKG comments: 04/07/17 04:43 Sinus rhythm; no acute ST-T changes - Impressions ITS Impressions Head CT 04/07/17 03:15 IMPRESSION: No acute intracranial abnormality. D/ / Ze Cruz MD / Ze Cruz MD Interpreting Provider: Ze Cruz MD - Diagnostic Studies Chest x-ray Status: image reviewed by me (negative other than cardiomegaly; CT abdomen suggests pneumonia)
[2017-04-07] MEDS ORDERED: Albuterol 2.5 MG/3 ML NEBULIZER IH PRN (04:52)
[2017-04-07 05:15] LABS: Basophils % 0.5 %; INR 1.3; Prothrombin Time 14.5 Seconds (9.4-12.1); Red Cell Distribution Width 15.1 % (11.5-14.5)
[2017-04-07 05:17] LABS: Activated Partial Thrombo Time 33.5 Seconds (26.0-36.0); Eosinophils # 0.1 K/mcL (0.0-0.6); Eosinophils % 3.1 %; Hematocrit 27.1 % (37.5-50.1); Hemoglobin 8.6 g/dL (12.9-16.9); Immature Granulocytes % 0.5 % (0-4); Immature Platelets 7.9 % (1.1-6.1); Lymphocytes % 24.4 %; Mean Corpuscular HGB Conc 31.7 g/dL (31.6-35.5); Mean Corpuscular Hemoglobin 26.6 pg (28.0-33.3); Mean Corpuscular Volume 83.9 fL (83.0-100.0); Mean Platelet Volume 10.9 fL (9.4-12.4); Monocytes # 0.4 K/mcL (0.0-1.3); Monocytes % 11.1 %; Neutrophils # 2.4 K/mcL (1.6-8.9); Red Blood Count 3.23 M/mcL (4.19-5.50); Segmented Neutrophils % 60.4 %
[2017-04-07 05:20] LABS: Platelet Count 69 K/mcL (140-400)
[2017-04-07 05:33] LABS: Albumin 2.8 g/dL (3.5-5.0); Albumin/Globulin Ratio 0.7 (1.1-2.2); Bilirubin,Total 0.4 mg/dL (0.2-1.2); Calcium 8.5 mg/dL (8.6-10.8); Globulin 4.1 g/dL (2.4-3.5); Magnesium 1.7 mg/dL (1.6-2.6); Potassium 4.2 mEq/L (3.5-4.5); Total Protein 6.9 g/dL (6.0-8.3)
[2017-04-07 05:46] LABS: Hemoglobin A1C 9.3 %
[2017-04-07] MEDS ORDERED: Insulin LISPRO 300 UNITS/3 ML VIAL SQ SCH (06:00)
[2017-04-07] MEDS ORDERED: Cefepime HCl 2,000 MG in D5% in Water (Mini-Bag+) 100 ML IVPB SCH (06:00)
[2017-04-07] MEDS ORDERED: Cefepime HCl 1,000 MG in D5% in Water (Mini-Bag+) 100 ML IVPB SCH (06:00)
[2017-04-07] MEDS ORDERED: Cefepime HCl 1,000 MG in Water for inj. (sterile) 10 ML IVP SCH (06:00)
[2017-04-07] MEDS: 0.9 % Sodium Chloride 1,000 ML IVC SCH ×2 (06:58→16:49)
[2017-04-07] MEDS: Ipratropium/Albuterol Neb 3 ML IH SCH ×5 (07:43→23:42)
--- NOTE | 2017-04-07 08:03 | Electrocardiograph Report ---
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
--- NOTE | 2017-04-07 10:50 | Internal Med Progress Note ---
Date of Encounter: 04/07/17 Time of Encounter: 10:40 - Assessment and plan (1) Acute encephalopathy Current Visit: Yes Status: Acute Assessment and plan: Multifactorial: Drugs, MJ on CKD Ammonia level is normal, renal function slightly worse than baseline, PCO2 slightly elevated, urine toxicology is pending patient on multiple sedating medications He is awake and oriented X2 at time of review, monitor off BiPAP , clear liquid diet as tolerated (2) CAD (coronary artery disease), [place] coronary artery Current Visit: Yes Status: Chronic Assessment and plan: Resume home meds Qualifiers: [place] vs. transplanted heart: [place] heart Associated angina: angina presence unspecified Qualified Code(s): I25.10 - Atherosclerotic heart disease of [place] coronary artery without angina pectoris (3) Acute hypercapnic respiratory failure Current Visit: Yes Status: Acute Assessment and plan: Mild. PCO2 48-53, compensated. PH is normal BiPAP at bedtime, BiPAP qualification prior to discharge (4) Pneumonia Current Visit: Yes Status: Acute Assessment and plan: Patient was being treated for pneumonia prior to discharge a few days ago Continue levaquin to complete the course CXR in this admission is not convincing for pneumonia Qualifiers: Pneumonia type: due to unspecified organism Laterality: bilateral Lung location: lower lobe of lung Qualified Code(s): J18.9 - Pneumonia, unspecified organism (5) IDDM (insulin dependent diabetes mellitus) Current Visit: Yes Status: Chronic Assessment and plan: FS ACHS Continue insulin regimen (6) DVT prophylaxis Current Visit: Yes Status: Acute Assessment and plan: EPCD's. Patient with liver disease, low platelets, coagulopathy of liver disease. Thus, no anticoagulants due to high bleeding risk. (7) CHF (congestive heart failure) Current Visit: Yes Status: Chronic Assessment and plan: Chronic, euvolemic, resume home meds, including lasix Qualifiers: Congestive heart failure type: diastolic Congestive heart failure chronicity: chronic Qualified Code(s): I50.32 - Chronic diastolic (congestive ) heart failure (8) Morbid obesity with BMI of 40.0-44.9, adult Current Visit: Yes Status: Chronic Assessment and plan: Lifestyle modification - Subjective Interval history: Seen and evaluated at bedside Patient is admitted for acute metabolic encephalopathy possibly secondary to drug misuse and hypoxia/hypercapnea He is much more awake at time of review and asking for something to eat He states he only remembered he was brought in for shortness of breath - Constitutional Vitals: Temp Pulse Resp BP Pulse Ox 98.5 F 81 14 116/72 98 04/07/17 07:20 04/07/17 07:20 04/07/17 07:43 04/07/17 07:20 04/07/17 07:43 General appearance: Present: disheveled, A&O X 2, morbidly obese, no acute distress. Absent: answers questions appropriately - Head Head exam: Present: atraumatic, normocephalic - Eye Eye exam: Present: PERRL, conjuntiva pink, sclera anicteric Pupils: Present: PERRL - ENT ENT exam: Present: mucous membranes dry (poor oral hygeine) - Neck Neck exam general surgery: Present: supple, trachea midline. Absent: lymphadenopathy - Respiratory Respiratory exam: Present: CTAB. Absent: accessory muscle use, rales, rhonchi, wheezes - Cardiovascular Cardiovascular exam: Present: RRR, +S1, +S2. Absent: diastolic murmur, gallop, rubs, systolic murmur - GI/Abdominal GI/Abdominal exam: Present: normal bowel sounds, soft, no peritoneal signs. Absent: distended, tenderness - Additional comments: M[place] with clear urine - Extremities Exam Extremities exam: Present: warm, radial pulses palpable and symmetrical. Absent : calf tenderness, cyanotic, pedal edema - Neurological Exam Neurological exam: Present: alert, CN II-XII intact, no focal deficits, strengths equal and symetr throughout. Absent: oriented X3, pronater drift, facial droop, speech deficit - Skin Skin exam: Present: dry, intact Internal Medicine: Result - Labs CBC & Chem 7: 04/07/17 04:42 04/07/17 04:42 Labs: Short CBC 04/07/17 Range/Units 04:42 WBC 3.9 L (4.3-11.1) K/mcL Hgb 8.6 L (12.9-16.9) g/dL Hct 27.1 L (37.5-50.1) % Plt Count 69 L (140-400) K/mcL Neutrophils # 2.4 (1.6-8.9) K/mcL BMP 04/07/17 04:42 Sodium 136 Potassium 4.2 Chloride 103 Carbon Dioxide 23 BUN 22 Creatinine 1.77 H Glucose 156 H Calcium 8.5 L Liver Function 04/07/17 Range/Units 04:42 Total Bilirubin 0.4 (0.2-1.2) mg/dL AST 48 H (5-34) Units/L ALT 49 (0-55) Units/L Alkaline Phosphatase 116 (38-126) Units/L Albumin 2.8 L (3.5-5.0) g/dL - ABG Interpretation ABG results: ABG ABG pH 7.32 pH Units (7.32-7.45) 04/07/17 03:02 ABG pCO2 53 mmHg (35-45) H 04/07/17 03:02 ABG pO2 90 mmHg (85-104) 04/07/17 03:02 ABG O2 Saturation 96 % (95-98) 04/07/17 03:02 PT/INR, D-dimer PT 14.5 Seconds (9.4-12.1) H 04/07/17 04:42 - Impressions Impressions Head CT 04/07/17 03:15 IMPRESSION: No acute intracranial abnormality. D/ / Ze Cruz MD / Ze Cruz MD Interpreting Provider: Ze Cruz MD Consult Discharge Plan - Plan [facility] [Primary Care Provider[facility] -
[2017-04-07] MEDS: Pantoprazole 40 MG VIAL IVP SCH (12:32)
[2017-04-07] MEDS: Insulin LISPRO 300 UNITS/3 ML VIAL SQ SCH ×2 (16:50→20:55)
[2017-04-07] MEDS: RisperiDAL 3 MG TABLET PO SCH (20:54)
[2017-04-07] MEDS: BUPRENORPHINE HCL SL SCH (20:54)
[2017-04-07] MEDS: NALOXONE HCL SL SCH (20:54)
[2017-04-07] MEDS: Melatonin 3 MG TABLET PO SCH (21:01)
[2017-04-07] MEDS: Insulin DETEMIR 100 UNIT/ML X5UNITS SQ SCH (21:07)
[2017-04-08] MEDS: Ipratropium/Albuterol Neb 3 ML IH SCH ×6 (03:37→23:05)
[2017-04-08] MEDS: 0.9 % Sodium Chloride 1,000 ML IVC SCH (04:54)
[2017-04-08 05:55] LABS: Basophils % 0.5 %; Immature Granulocytes % 0.3 % (0-4); Red Blood Count 3.08 M/mcL (4.19-5.50)
[2017-04-08 05:57] LABS: Eosinophils # 0.1 K/mcL (0.0-0.6); Eosinophils % 2.5 %; Hematocrit 26.4 % (37.5-50.1); Hemoglobin 8.3 g/dL (12.9-16.9); Immature Platelets 6.2 % (1.1-6.1); Lymphocytes # 0.8 K/mcL (0.6-4.6); Lymphocytes % 23.1 %; Mean Corpuscular HGB Conc 31.4 g/dL (31.6-35.5); Mean Corpuscular Hemoglobin 26.9 pg (28.0-33.3); Mean Corpuscular Volume 85.7 fL (83.0-100.0); Mean Platelet Volume 11.3 fL (9.4-12.4); Monocytes # 0.4 K/mcL (0.0-1.3); Monocytes % 11.3 %; Red Cell Distribution Width 15.4 % (11.5-14.5); Segmented Neutrophils % 62.3 %
[2017-04-08 06:14] LABS: BUN/Creatinine Ratio 19 (6-26); Blood Urea Nitrogen 22 mg/dL (8-26); Calcium 8.3 mg/dL (8.6-10.8); Carbon Dioxide 24 mEq/L (19-29); Chloride 105 mEq/L (98-109); Glucose 261 mg/dL (70-99); Osmolality,Calculated 292 (280-300); Potassium 4.6 mEq/L (3.5-4.5); Sodium 135 mEq/L (136-145); eGFR For African Americans > 60 (> 60); eGFR For Non-African Americans > 60 (> 60)
[2017-04-08 06:17] LABS: Neutrophils # 2.2 K/mcL (1.6-8.9); Platelet Count 61 K/mcL (140-400)
[2017-04-08] MEDS: Insulin LISPRO 300 UNITS/3 ML VIAL SQ SCH ×4 (08:15→21:43)
[2017-04-08] MEDS: Cholecalciferol (D-3) 1,000 UNIT TABLET PO SCH (08:16)
[2017-04-08] MEDS: Aspirin Enteric Coated 81 MG Tablet PO SCH (08:16)
[2017-04-08] MEDS: Furosemide 40 MG TABLET PO SCH (08:16)
[2017-04-08] MEDS: Pantoprazole 40 MG VIAL IVP SCH (08:16)
[2017-04-08] MEDS: NALOXONE HCL SL SCH (08:17)
[2017-04-08] MEDS: BUPRENORPHINE HCL SL SCH (08:17)
[2017-04-08] MEDS: Insulin DETEMIR 100 UNIT/ML X5UNITS SQ SCH ×2 (10:05→22:20)
--- NOTE | 2017-04-08 10:56 | Internal Med Progress Note ---
Date of Encounter: 04/08/17 Time of Encounter: 10:45 - Assessment and plan (1) Acute encephalopathy Current Visit: Yes Status: Resolved Assessment and plan: Multifactorial: Drugs, MJ on CKD Ammonia level is normal, renal function slightly worse than baseline, PCO2 slightly elevated, urine toxicology is pending-04/07 He is now awake and mental status is back to baseline (2) CAD (coronary artery disease), [place] coronary artery Current Visit: Yes Status: Chronic Assessment and plan: no cp, continue home meds Qualifiers: [place] vs. transplanted heart: [place] heart Associated angina: angina presence unspecified Qualified Code(s): I25.10 - Atherosclerotic heart disease of [place] coronary artery without angina pectoris (3) Acute hypercapnic respiratory failure Current Visit: Yes Status: Acute Assessment and plan: Resolved Continue BiPAP at bedtime, continue O2 supplement Shoulder Xray showed cardiomegaly with possible pulm edema D/C IVF, home lasix dose continued (4) Pneumonia Current Visit: Yes Status: Acute Assessment and plan: Patient was being treated for pneumonia prior to discharge a few days ago Continue levaquin to complete the course CXR in this admission is not convincing for pneumonia Qualifiers: Pneumonia type: due to unspecified organism Laterality: bilateral Lung location: lower lobe of lung Qualified Code(s): J18.9 - Pneumonia, unspecified organism (5) IDDM (insulin dependent diabetes mellitus) Current Visit: Yes Status: Chronic Assessment and plan: FS ACHS Continue insulin regimen (6) DVT prophylaxis Current Visit: Yes Status: Acute Assessment and plan: EPCD's. Patient with liver disease, low platelets, coagulopathy of liver disease. Thus, no anticoagulants due to high bleeding risk. (7) CHF (congestive heart failure) Current Visit: Yes Status: Chronic Assessment and plan: Chronic, euvolemic, resume home meds, including lasix Qualifiers: Congestive heart failure type: diastolic Congestive heart failure chronicity: chronic Qualified Code(s): I50.32 - Chronic diastolic (congestive ) heart failure (8) Morbid obesity with BMI of 40.0-44.9, adult Current Visit: Yes Status: Chronic Assessment and plan: Lifestyle modification - Subjective Interval history: Seen and evaluated at bedside Patient is admitted for acute metabolic encephalopathy possibly secondary to drug misuse and hypoxia/hypercapnea Complained of R shoulder pain, Shoulder Xray done showed mild degenrative changes, no acute fractures [facility], confirmed with CM that patient does have a CPAP at his [facility] but is only non- compliant He is otherwise clinically improving and denies any new complains - Constitutional Vitals: Temp Pulse Resp BP Pulse Ox 98.0 F 98 15 120/56 98 04/08/17 07:30 04/08/17 07:30 04/08/17 07:30 04/08/17 07:30 04/08/17 08:25 General appearance: Present: A&O X 3, morbidly obese, pleasant, no acute distress. Absent: answers questions appropriately - Head Head exam: Present: atraumatic, normocephalic - Eye Eye exam: Present: PERRL, conjuntiva pink, sclera anicteric Pupils: Present: PERRL - Neck Neck exam general surgery: Present: supple, trachea midline. Absent: lymphadenopathy - Respiratory Respiratory exam: Present: CTAB. Absent: accessory muscle use, rales, rhonchi, wheezes - Cardiovascular Cardiovascular exam: Present: RRR, +S1, +S2. Absent: diastolic murmur, gallop, rubs, systolic murmur - GI/Abdominal GI/Abdominal exam: Present: normal bowel sounds, soft, no peritoneal signs. Absent: distended, tenderness - Extremities Exam Extremities exam: Present: warm, radial pulses palpable and symmetrical. Absent : calf tenderness, cyanotic, pedal edema - Neurological Exam Neurological exam: Present: alert, CN II-XII intact, oriented X3, no focal deficits. Absent: pronater drift, facial droop, speech deficit - Skin Skin exam: Present: dry, intact Internal Medicine: Result - Labs CBC & Chem 7: 04/08/17 05:38 04/08/17 05:38 Labs: Short CBC 04/08/17 Range/Units 05:38 WBC 3.6 L (4.3-11.1) K/mcL Hgb 8.3 L (12.9-16.9) g/dL Hct 26.4 L (37.5-50.1) % Plt Count 61 L (140-400) K/mcL Neutrophils # 2.2 (1.6-8.9) K/mcL BMP 04/08/17 05:38 Sodium 135 L Potassium 4.6 H Chloride 105 Carbon Dioxide 24 BUN 22 Creatinine 1.18 Glucose 261 H Calcium 8.3 L - ABG Interpretation ABG results: ABG ABG pH 7.32 pH Units (7.32-7.45) 04/07/17 03:02 ABG pCO2 53 mmHg (35-45) H 04/07/17 03:02 ABG pO2 90 mmHg (85-104) 04/07/17 03:02 ABG O2 Saturation 96 % (95-98) 04/07/17 03:02 PT/INR, D-dimer PT 14.5 Seconds (9.4-12.1) H 04/07/17 04:42 - VTE Documentation of Mechanical Device: Intermittent pneumatic compression device Consult Discharge Plan - Plan [facility]errals: [facility] [Primary Care Provider] -
[2017-04-08] MEDS ORDERED: Levofloxacin 750 MG/150 ML 750 MG/150 ML BAG IVPB SCH ×2 (18:00)
[2017-04-08] MEDS: RisperiDAL 3 MG TABLET PO SCH (21:41)
[2017-04-08] MEDS: Melatonin 3 MG TABLET PO SCH (21:41)
[2017-04-09] MEDS: Ipratropium/Albuterol Neb 3 ML IH SCH ×6 (03:00→23:58)
[2017-04-09 04:12] LABS: Hemoglobin 8.6 g/dL (12.9-16.9)
[2017-04-09 04:13] LABS: Basophils % 0.6 %; Eosinophils # 0.1 K/mcL (0.0-0.6); Eosinophils % 3.6 %; Hematocrit 26.3 % (37.5-50.1); Immature Platelets 6.6 % (1.1-6.1); Lymphocytes # 0.9 K/mcL (0.6-4.6); Lymphocytes % 26.6 %; Mean Corpuscular HGB Conc 32.7 g/dL (31.6-35.5); Mean Corpuscular Hemoglobin 27.1 pg (28.0-33.3); Mean Platelet Volume 12.2 fL (9.4-12.4); Monocytes # 0.4 K/mcL (0.0-1.3); Monocytes % 10.4 %; Red Blood Count 3.17 M/mcL (4.19-5.50); Red Cell Distribution Width 15.4 % (11.5-14.5); Segmented Neutrophils % 58.8 %
[2017-04-09 04:25] LABS: BUN/Creatinine Ratio 17 (6-26); Blood Urea Nitrogen 23 mg/dL (8-26); Carbon Dioxide 25 mEq/L (19-29); Chloride 103 mEq/L (98-109); Glucose 391 mg/dL (70-99); Osmolality,Calculated 298 (280-300); Potassium 4.7 mEq/L (3.5-4.5); Sodium 134 mEq/L (136-145); eGFR For African Americans > 60 (> 60); eGFR For Non-African Americans 54 (> 60)
[2017-04-09 04:30] LABS: Platelet Count 57 K/mcL (140-400)
[2017-04-09] MEDS: Aspirin Enteric Coated 81 MG Tablet PO SCH (07:55)
[2017-04-09] MEDS: Furosemide 40 MG TABLET PO SCH (07:55)
[2017-04-09] MEDS: Cholecalciferol (D-3) 1,000 UNIT TABLET PO SCH (07:55)
[2017-04-09] MEDS: Insulin LISPRO 300 UNITS/3 ML VIAL SQ SCH ×5 (07:56→22:10)
[2017-04-09] MEDS: Insulin DETEMIR 100 UNIT/ML X5UNITS SQ SCH ×2 (10:21→22:10)
--- NOTE | 2017-04-09 12:12 | Internal Med Progress Note ---
Date of Encounter: 04/09/17 Time of Encounter: 12:12 - Assessment and plan (1) Acute encephalopathy Current Visit: Yes Status: Resolved Assessment and plan: Multifactorial: Drugs, MJ on CKD, Hypercapnea Ammonia level is normal, renal function slightly worse than baseline, PCO2 slightly elevated, urine toxicology is pending-04/07 He is now awake and mental status is back to baseline (2) CAD (coronary artery disease), [place] coronary artery Current Visit: Yes Status: Chronic Assessment and plan: no cp, continue home meds Qualifiers: [place] vs. transplanted heart: [place] heart Associated angina: angina presence unspecified Qualified Code(s): I25.10 - Atherosclerotic heart disease of [place] coronary artery without angina pectoris (3) Acute hypercapnic respiratory failure Current Visit: Yes Status: Acute Assessment and plan: Resolved Continue BiPAP at bedtime, continue O2 supplement Shoulder Xray showed cardiomegaly with possible pulm edema D/C IVF, home lasix dose continued (4) Pneumonia Current Visit: Yes Status: Acute Assessment and plan: Patient was being treated for pneumonia prior to discharge a few days ago Continue levaquin to complete the course CXR in this admission is not convincing for pneumonia Qualifiers: Pneumonia type: due to unspecified organism Laterality: bilateral Lung location: lower lobe of lung Qualified Code(s): J18.9 - Pneumonia, unspecified organism (5) IDDM (insulin dependent diabetes mellitus) Current Visit: Yes Status: Chronic Assessment and plan: FS ACHS Add prandial insulin FS uncontrolled, continue to monitor Continue insulin regimen (6) DVT prophylaxis Current Visit: Yes Status: Acute Assessment and plan: EPCD's. Patient with liver disease, low platelets, coagulopathy of liver disease. Thus, no anticoagulants due to high bleeding risk. (7) CHF (congestive heart failure) Current Visit: Yes Status: Chronic Assessment and plan: Chronic, euvolemic, resume home meds, including lasix Qualifiers: Congestive heart failure type: diastolic Congestive heart failure chronicity: chronic Qualified Code(s): I50.32 - Chronic diastolic (congestive ) heart failure (8) Morbid obesity with BMI of 40.0-44.9, adult Current Visit: Yes Status: Chronic Assessment and plan: Lifestyle modification - Subjective Interval history: Seen and evaluated at bedside Patient is admitted for acute metabolic encephalopathy possibly secondary to drug misuse and hypoxia/hypercapnea He has no new complains SOLUTION DIRECTOR confirmed patient has BiPAP and O2 at long term but is known to be non- complaint - Constitutional Vitals: Temp Pulse Resp BP Pulse Ox 97.7 F 71 16 116/69 97 04/09/17 10:51 04/09/17 10:51 04/09/17 10:51 04/09/17 10:51 04/09/17 10:51 General appearance: Present: A&O X 3, morbidly obese, pleasant, no acute distress. Absent: answers questions appropriately - Head Head exam: Present: atraumatic, normocephalic - Eye Eye exam: Present: PERRL, conjuntiva pink, sclera anicteric Pupils: Present: PERRL - Neck Neck exam general surgery: Present: supple, trachea midline. Absent: lymphadenopathy - Respiratory Respiratory exam: Present: CTAB. Absent: accessory muscle use, rales, rhonchi, wheezes - Cardiovascular Cardiovascular exam: Present: RRR, +S1, +S2. Absent: diastolic murmur, gallop, rubs, systolic murmur - GI/Abdominal GI/Abdominal exam: Present: normal bowel sounds, soft, no peritoneal signs. Absent: distended, tenderness - Extremities Exam Extremities exam: Present: warm, radial pulses palpable and symmetrical. Absent : calf tenderness, cyanotic, pedal edema - Neurological Exam Neurological exam: Present: alert, CN II-XII intact, oriented X3, no focal deficits. Absent: pronater drift, facial droop, speech deficit - Skin Skin exam: Present: dry, intact Internal Medicine: Result - Labs CBC & Chem 7: 04/09/17 03:42 04/09/17 03:42 Labs: Short CBC 04/09/17 Range/Units 03:42 WBC 3.4 L (4.3-11.1) K/mcL Hgb 8.6 L (12.9-16.9) g/dL Hct 26.3 L (37.5-50.1) % Plt Count 57 L (140-400) K/mcL Neutrophils # 2.0 (1.6-8.9) K/mcL BMP 04/09/17 03:42 Sodium 134 L Potassium 4.7 H Chloride 103 Carbon Dioxide 25 BUN 23 Creatinine 1.32 H Glucose 391 H Calcium 9.0 - ABG Interpretation ABG results: ABG ABG pH 7.32 pH Units (7.32-7.45) 04/07/17 03:02 ABG pCO2 53 mmHg (35-45) H 04/07/17 03:02 ABG pO2 90 mmHg (85-104) 04/07/17 03:02 ABG O2 Saturation 96 % (95-98) 04/07/17 03:02 PT/INR, D-dimer PT 14.5 Seconds (9.4-12.1) H 04/07/17 04:42 - VTE Documentation of Mechanical Device: Intermittent pneumatic compression device Consult Discharge Plan - Plan [facility]: [facility] [Primary Care Provider[facility] -
[2017-04-09] MEDS ORDERED: Insulin LISPRO 300 UNITS/3 ML VIAL SQ SCH (17:00)
[2017-04-09] MEDS ORDERED: levoFLOXacin 750 MG TABLET PO SCH (18:00)
[2017-04-09] MEDS: RisperiDAL 3 MG TABLET PO SCH (22:09)
[2017-04-09] MEDS: Melatonin 3 MG TABLET PO SCH (22:09)
[2017-04-10] MEDS: Ipratropium/Albuterol Neb 3 ML IH SCH ×3 (04:05→11:36)
[2017-04-10] MEDS: Insulin LISPRO 300 UNITS/3 ML VIAL SQ SCH ×4 (07:56→12:03)
[2017-04-10] MEDS: Cholecalciferol (D-3) 1,000 UNIT TABLET PO SCH (07:59)
[2017-04-10] MEDS: Furosemide 40 MG TABLET PO SCH (07:59)
[2017-04-10] MEDS: Aspirin Enteric Coated 81 MG Tablet PO SCH (08:00)
[2017-04-10] MEDS: Insulin DETEMIR 100 UNIT/ML X5UNITS SQ SCH (10:17)
--- NOTE | 2017-04-10 10:57 | Discharge Summary ---
Date of Encounter: 04/10/17 Time of Encounter: 10:54 - Discharge Diagnosis (1) Acute encephalopathy Priority: Primary Status: Resolved (2) CAD (coronary artery disease), [place] coronary artery Priority: Secondary Status: Chronic Qualifiers: [place] vs. transplanted heart: [place] heart Associated angina: angina presence unspecified Qualified Code(s): I25.10 - Atherosclerotic heart disease of [place] coronary artery without angina pectoris (3) Acute hypercapnic respiratory failure Priority: Primary Status: Resolved (4) Pneumonia Priority: Primary Status: Acute Qualifiers: Pneumonia type: due to unspecified organism Laterality: bilateral Lung location: lower lobe of lung Qualified Code(s): J18.9 - Pneumonia, unspecified organism (5) IDDM (insulin dependent diabetes mellitus) Priority: Secondary Status: Chronic (6) DVT prophylaxis Priority: Primary Status: Acute (7) CHF (congestive heart failure) Priority: Secondary Status: Chronic Qualifiers: Congestive heart failure type: diastolic Congestive heart failure chronicity: chronic Qualified Code(s): I50.32 - Chronic diastolic (congestive ) heart failure (8) Morbid obesity with BMI of 40.0-44.9, adult Priority: Secondary Status: Chronic - Discharge Medications Home Medications: Cholecalciferol (Vitamin D3) [Vitamin D] 2,000 unit PO DAILY 05/13/15 [History] Insulin ASPART [NovoLOG] 35 unit SQ TIDAC 05/13/15 [History] Aspirin Enteric Coated [Aspirin EC] 81 mg PO DAILY 11/13/15 [History] Atorvastatin [Lipitor] 40 mg PO HS 11/13/15 [History] Insulin Glargine,Hum.rec.anlog [Lantus Solostar] 80 unit SQ BID 11/13/15 [ History] Omeprazole [PriLOSEC] 20 mg PO DAILY 11/13/15 [History] Tamsulosin [Flomax] 0.4 mg PO DAILY 11/13/15 [History] Furosemide [Lasix] 40 mg PO DAILY 05/16/16 [History] risperiDONE [Risperdal] 3 mg PO HS 05/16/16 [History] Atenolol [Tenormin] 50 mg PO DAILY 05/29/16 [History] Ipratropium/Albuterol Neb [Duoneb] 3 ml IH QID 08/10/16 [History] Sertraline [Zoloft] 100 mg PO HS 10/27/16 [History] Spironolactone [Aldactone] 50 mg PO DAILY 10/27/16 [History] Buprenorphine HCl/Naloxone HCl [Buprenorphin-Naloxon 8-2 mg Sl] 2 tab SL BID [History] Lisinopril 2.5 mg PO HS 02/03/17 [History] Melatonin [Melatin] 9 mg PO HS 02/03/17 [History] Insulin ASPART [NovoLOG] 3 - 8 unit SQ TID PRN 04/06/17 [History] Lidocaine Patch [Lidoderm 5% patch] 1 each TP DAILY 04/06/17 [History] Rifaximin [Xifaxan] 550 mg PO BID 04/06/17 [History] ALPRAZolam [Xanax 0.5 MG Tablet] 0.25 mg PO TID 04/07/17 [History] levoFLOXacin [Levaquin] 750 mg PO Q24H tablet 04/10/17 [Rx] Allergies/Adverse Reactions: 3 Allergy/AdvReac Type Severity Reaction Status Date / Time Iodinated Contrast- Oral and Allergy Difficulty Verified 03/01/17 19:16 IV Dye Breathing ketorolac [From Toradol] Allergy Nausea Verified 03/01/17 19:16 Penicillins Allergy Rash Verified 03/01/17 19:16 butorphanol [From Stadol] AdvReac Nausea Verified 03/01/17 19:16 celecoxib AdvReac unknown Verified 03/01/17 19:16 diphenhydramine AdvReac See Verified 03/01/17 19:16 [From Benadryl] Comments gabapentin AdvReac unknown Verified 03/01/17 19:16 Methadone AdvReac See Verified 03/01/17 19:16 Comments mirtazapine AdvReac unknown Verified 03/01/17 19:16 morphine AdvReac See Verified 03/01/17 19:16 Comments tramadol AdvReac unknown Verified 02/03/17 21:00 vancomycin AdvReac unknown Verified 02/03/17 21:00 Date of admission: 04/07/17 03:10 Primary care physician: PCP [place] Discharging clinician: Bernabe Enriquez Anticipated date of discharge: 04/10/17 - Patient Status Disposition: Transfer Other Condition: Fair Functional capacity at discharge: independent ambulation Overall status at discharge: patient is back to baseline - Discharge Instructions Instructions: Dehydration (DC), Diabetic Hyperglycemia (DC), Impaired Kidney Function (DC) [facility] [[facility] Provider[facility] - Additional Instructions: Follow up with PCP Kindly comply with your oxygen and CPAP - Diet and Activity Activity: resume usual activities as tolerated, wear oxygen at all times, other (Wear CPAP at night) Diet: diabetic diet, low fat, low cholesterol, low salt diet Interval History: See below Hospital course: Mr. Ramirez is a 67 year old male with CHFpEF, CKD III, COPD, JOSEFA on CPAP, Chronic Resp failure on home O2, BIpolar/Depression/PTSD He was admitted following shortness of breath and altered mental status at assisted He was managed for MJ on CKD, Acute hypercapneic respiratory failure and acute metabolic encephalopathy Patient is back to baseline and symptoms have resolved Renal function is back to baseline Patient was seen and evaluated at bedside, no new complains He was treated for Pneumonia during his last admission in the past week. Levaquin was continued. There is no new pneumonia in this admission Patient educated extensively about complaince with oxygen and CPAP Per [facility], he is non-compliant High risk for readmission, due to non-compliance Home meds resumed patient educated - Time Spent with Patient Total time spent providing and/or coordinating discharge services: Greater than 30 minutes - Constitutional Vitals: Temp Pulse Resp BP Pulse Ox 98.6 F 73 16 112/57 97 04/10/17 06:30 04/10/17 06:30 04/10/17 06:30 04/10/17 06:30 04/10/17 06:30 General appearance: Present: A&O X 3, morbidly obese, pleasant, no acute distress. Absent: answers questions appropriately - Head Head exam: Present: atraumatic, normocephalic - Eye Eye exam: Present: PERRL, conjuntiva pink, sclera anicteric Pupils: Present: PERRL - Neck Neck exam general surgery: Present: supple, trachea midline. Absent: lymphadenopathy - Respiratory Respiratory exam: Present: CTAB. Absent: accessory muscle use, rales, rhonchi, wheezes - Cardiovascular Cardiovascular exam: Present: RRR, +S1, +S2. Absent: diastolic murmur, gallop, rubs, systolic murmur - GI/Abdominal GI/Abdominal exam: Present: normal bowel sounds, soft, no peritoneal signs. Absent: distended, tenderness - Extremities Exam Extremities exam: Present: warm, radial pulses palpable and symmetrical. Absent : calf tenderness, cyanotic, pedal edema - Neurological Exam Neurological exam: Present: alert, CN II-XII intact, oriented X3, no focal deficits. Absent: pronater drift, facial droop, speech deficit - Skin Skin exam: Present: dry, intact - VTE Documentation of Mechanical Device: Intermittent pneumatic compression device
[2017-04-10 11:16] VITALS: BP 117/75
== END 2017-04-10 12:45 | disposition other institution (70) | DRG 189 ==
LOC: EMEROO 20:00 → 2ANU 20:00
PROVIDERS: ADMIT Internal Medicine; ATTEND Internal Medicine

== ENCOUNTER 2017-05-09 10:18 | Observation (INO) ==
[2017-05-09] MEDS ORDERED: methylPREDNISolone 125 MG/2 ML VIAL IVP ONE (10:25)
[2017-05-09] MEDS ORDERED: Ipratropium/Albuterol Neb 3 ML IH ONE (10:25)
--- NOTE | 2017-05-09 10:38 | Emergency Department Note ---
Disposition Clinical Impression: HAP (hospital-acquired pneumonia), COPD with exacerbation Disposition: Admitted As Inpatient Condition: Fair [facility] Care Provider[facility] - Forms: ED Satisfaction Letter Time of Disposition: 13:09 SOB HPI - General Chief Complaint: ED Shortness of Breath/Dyspnea Stated Complaint: SOB Time Seen by Provider: 05/09/17 10:23 Source: patient, EMS Limitations: no limitations Nursing Notes Reviewed: Yes Vital Signs Reviewed: Yes - History of Present Illness I did review the previous records the patient has been here multiple times and the patient presents per EMS and I did see the patient immediately upon arrival and also spoke with the paramedics and the patient presents from a [facility] with shortness of breath and they did get a oxygen saturation of 90% on room air and 92% on 3 L nasal cannula versus typical oxygen administration at home that he does use intermittently. He does have some chest tightness which is nonexertional without a pleuritic aspect and no radiation. He does have some rhinorrhea and a dry cough but no hemoptysis. Does have increased swelling of the lower extremities. He does have a history of congestive heart failure. He denies any fevers, no blood in the urine or stool. No lower extremity pain. Social history: Is never smoked. His parents did smoke. The patient does have a history of prescription pill abuse and that is the reason he is in the [facility] and the patient has been clean for the last 3 years. - Related Data Home Medications Medication Instructions Recorded Confirmed Cholecalciferol (Vitamin D3) 2,000 unit PO DAILY 05/13/15 04/07/17 [Vitamin D] Insulin ASPART [NovoLOG] 35 unit SQ TIDAC 05/13/15 04/07/17 Aspirin Enteric Coated [Aspirin EC] 81 mg PO DAILY 11/13/15 04/07/17 Atorvastatin [Lipitor] 40 mg PO HS 11/13/15 04/07/17 Insulin Glargine,Hum.rec.anlog 80 unit SQ BID 11/13/15 04/07/17 [Lantus Solostar] Omeprazole [PriLOSEC] 20 mg PO DAILY 11/13/15 04/07/17 Tamsulosin [Flomax] 0.4 mg PO DAILY 11/13/15 04/07/17 Furosemide [Lasix] 40 mg PO DAILY 05/16/16 04/07/17 risperiDONE [Risperdal] 3 mg PO HS 05/16/16 04/07/17 Atenolol [Tenormin] 50 mg PO DAILY 05/29/16 04/07/17 Ipratropium/Albuterol Neb [Duoneb] 3 ml IH QID 08/10/16 04/07/17 Sertraline [Zoloft] 100 mg PO HS 10/27/16 04/07/17 Spironolactone [Aldactone] 50 mg PO DAILY 10/27/16 04/07/17 Buprenorphine HCl/Naloxone HCl 2 tab SL BID 01/27/17 04/07/17 [Buprenorphin-Naloxon 8-2 mg Sl] Lisinopril 2.5 mg PO HS 02/03/17 04/07/17 Melatonin [Melatin] 9 mg PO HS 02/03/17 04/07/17 Insulin ASPART [NovoLOG] 3 - 8 unit SQ TID PRN 04/06/17 04/07/17 Lidocaine Patch [Lidoderm 5% patch] 1 each TP DAILY 04/06/17 04/07/17 Rifaximin [Xifaxan] 550 mg PO BID 04/06/17 04/07/17 ALPRAZolam [Xanax 0.5 MG Tablet] 0.25 mg PO TID 04/07/17 04/07/17 Previous Rx's Medication Instructions Recorded levoFLOXacin [Levaquin] 750 mg PO Q24H tablet 04/10/17 Allergies Allergy/AdvReac Type Severity Reaction Status Date / Time Iodinated Contrast- Oral and Allergy Difficulty Verified 03/01/17 19:16 IV Dye Breathing ketorolac [From Toradol] Allergy Nausea Verified 03/01/17 19:16 Penicillins Allergy Rash Verified 03/01/17 19:16 butorphanol [From Stadol] AdvReac Nausea Verified 03/01/17 19:16 celecoxib AdvReac unknown Verified 03/01/17 19:16 diphenhydramine AdvReac See Verified 03/01/17 19:16 [From Benadryl] Comments gabapentin AdvReac unknown Verified 03/01/17 19:16 Methadone AdvReac See Verified 03/01/17 19:16 Comments mirtazapine AdvReac unknown Verified 03/01/17 19:16 morphine AdvReac See Verified 03/01/17 19:16 Comments tramadol AdvReac unknown Verified 02/03/17 21:00 vancomycin AdvReac unknown Verified 02/03/17 21:00 Review of Systems: Constitutional: No fever Vision: No blurred vision ENT: + rhinorrhea Respiratory: + cough Allergic: No allergies : No blood in urine GI: No blood in stool Hematologic: No bruising Dermatologic: No skin rash Musculoskeletal: No pain in the extremities Neuro: No numbness of the extremities Past Medical History - Past Medical History Medical history: Reports: arthritis, cirrhosis, CHF, COPD, coronary artery disease, diabetes, GERD, hyperlipidemia, hypertension, liver disease, osteoporosis, TIA Surgical history: Reports: appendectomy, cholecystectomy, herniorrhaphy, knee replacement, other Psychiatric history: Reports: anxiety, depression, panic disorder, PTSD, previous psychiatric hospitalization - Social History Smoking Status: Never smoker Smokeless Tobacco Status: No Alcohol use: Reports: none Drug use: Reports: none Physical Exam CONSTITUTIONAL: Alert and oriented X3, well-nourished, well appearing, in no apparent distress HEAD: Normocephalic; atraumatic. EYES: PERRL, no scleral icterus. NOSE: The nose is normal in appearance without rhinorrhea RESP: Normal chest excursion with respiration; breath sounds clear and equal bilaterally; no wheezes, rhonchi, or rales CARD: Regular rhythm, without murmurs, rub or gallop ABD: Non-distended; non-tender, soft,without rigidity, rebound or guarding SKIN: Normal for age and race; warm and dry; no apparent lesions EXTREMITIES: Pulses are 2 plus and equal times 4 extremities, significant bilateral symmetric peripheral edema but no erythema or signs of infection. No calf muscle pain with palpation - General Limitations: no limitations General appearance: alert, in distress Course Vital Signs Temperature 98.8 F 05/09/17 10:22 Pulse Rate 81 05/09/17 10:22 Respiratory Rate 28 05/09/17 10:22 Blood Pressure 147/75 05/09/17 10:22 O2 Sat by Pulse Oximetry 94 05/09/17 10:22 Temperature 98.8 F 05/09/17 10:22 Pulse Rate 72 05/09/17 12:22 Respiratory Rate 20 05/09/17 12:22 Blood Pressure 131/85 05/09/17 12:22 O2 Sat by Pulse Oximetry 95 05/09/17 12:22 Oxygen Delivery Oxygen Delivery Nasal Cannula Shortness of Breath/Dyspnea - MDM Narrative Medical decision making narrative: Patient does have bilateral wheezing which is likely secondary to COPD exacerbation but could also be from congestive heart failure so chest x-ray, labs including troponin and BNP levels are all checked. Do another and IV steroids are given to the patient. My suspicion is COPD exacerbation more likely as the etiology of his symptoms. The patient will be watched closely here in the emergency department. 1039 I did review the patient's EKG showing normal sinus rhythm with a rate of 77 and without acute ischemic change 1040 - Medical Records Medical records reviewed: Yes I reviewed the patient's medical records. - Lab Data Result diagrams: 05/09/17 11:08 05/09/17 11:08 Lab Results 05/09/17 05/09/17 05/09/17 Range/Units 10:40 10:45 10:45 WBC (4.3-11.1) K/mcL RBC (4.19-5.50) M/mcL Hgb (12.9-16.9) g/dL Hct (37.5-50.1) % MCV (83.0-100.0) fL MCH (28.0-33.3) pg MCHC (31.6-35.5) g/dL RDW (11.5-14.5) % Plt Count (140-400) K/mcL MPV (9.4-12.4) fL Immature Gran % (0-4) % Seg Neutrophils % % Lymphocytes % % Monocytes % % Eosinophils % % Basophils % % Neutrophils # (1.6-8.9) K/mcL Lymphocytes # (0.6-4.6) K/mcL Monocytes # (0.0-1.3) K/mcL Eosinophils # (0.0-0.6) K/mcL Basophils # (0.0-0.2) K/mcL Immature Plt Fraction (1.1-6.1) % Sodium (136-145) mEq/L Potassium (3.5-4.5) mEq/L Chloride (98-109) mEq/L Carbon Dioxide (19-29) mEq/L BUN (8-26) mg/dL Creatinine (0.72-1.25) mg/dL Est GFR ( Amer) (> 60) Est GFR (Non-Af Amer) (> 60) BUN/Creatinine Ratio (6-26) Glucose (70-99) mg/dL POC Glucose 308 H (58-89) Calculated Osmolality (280-300) Calcium (8.6-10.8) mg/dL Troponin I 0.02 (0-0.03) ng/mL B-Natriuretic Peptide (0-100) pg/mL Specimen Rejected Hemolyzed 05/09/17 05/09/17 05/09/17 Range/Units 11:08 11:08 11:10 WBC 4.3 (4.3-11.1) K/mcL RBC 3.19 L (4.19-5.50) M/mcL Hgb 8.7 L (12.9-16.9) g/dL Hct 27.1 L (37.5-50.1) % MCV 85.0 (83.0-100.0) fL MCH 27.3 L (28.0-33.3) pg MCHC 32.1 (31.6-35.5) g/dL RDW 19.2 H (11.5-14.5) % Plt Count 59 L (140-400) K/mcL MPV 11.6 (9.4-12.4) fL Immature Gran % 0.5 (0-4) % Seg Neutrophils % 81.6 % Lymphocytes % 10.2 % Monocytes % 6.3 % Eosinophils % 0.7 % Basophils % 0.7 % Neutrophils # 3.5 (1.6-8.9) K/mcL Lymphocytes # 0.4 L (0.6-4.6) K/mcL Monocytes # 0.3 (0.0-1.3) K/mcL Eosinophils # 0.0 (0.0-0.6) K/mcL Basophils # 0.0 (0.0-0.2) K/mcL Immature Plt Fraction 6.1 (1.1-6.1) % Sodium 137 (136-145) mEq/L Potassium 3.9 (3.5-4.5) mEq/L Chloride 104 (98-109) mEq/L Carbon Dioxide 27 (19-29) mEq/L BUN 27 H (8-26) mg/dL Creatinine 1.23 (0.72-1.25) mg/dL Est GFR ( Amer) > 60 (> 60) Est GFR (Non-Af Amer) 59 L (> 60) BUN/Creatinine Ratio 22 (6-26) Glucose 380 H (70-99) mg/dL POC Glucose (58-89) Calculated Osmolality 305 H (280-300) Calcium 9.2 (8.6-10.8) mg/dL Troponin I (0-0.03) ng/mL B-Natriuretic Peptide 578 H (0-100) pg/mL Specimen Rejected
[2017-05-09 11:20] LABS: Basophils % 0.7 %; Eosinophils % 0.7 %; Hematocrit 27.1 % (37.5-50.1); Hemoglobin 8.7 g/dL (12.9-16.9); Immature Granulocytes % 0.5 % (0-4); Immature Platelets 6.1 % (1.1-6.1); Lymphocytes # 0.4 K/mcL (0.6-4.6); Lymphocytes % 10.2 %; Mean Corpuscular HGB Conc 32.1 g/dL (31.6-35.5); Mean Corpuscular Hemoglobin 27.3 pg (28.0-33.3); Mean Platelet Volume 11.6 fL (9.4-12.4); Monocytes # 0.3 K/mcL (0.0-1.3); Monocytes % 6.3 %; Neutrophils # 3.5 K/mcL (1.6-8.9); Red Blood Count 3.19 M/mcL (4.19-5.50); Red Cell Distribution Width 19.2 % (11.5-14.5); Segmented Neutrophils % 81.6 %
[2017-05-09 11:22] LABS: Platelet Count 59 K/mcL (140-400)
[2017-05-09] MEDS ORDERED: Cefepime HCl 2,000 MG in D5% in Water (Mini-Bag+) 100 ML IVPB STA (11:47)
[2017-05-09] MEDS ORDERED: Levofloxacin 750 MG/150 ML 750 MG/150 ML BAG IVPB ONE (11:48)
[2017-05-09] MEDS ORDERED: Cefepime HCl 2,000 MG in Water for inj. (sterile) 20 ML IVP ONE (11:51)
[2017-05-09 12:20] LABS: BUN/Creatinine Ratio 22 (6-26); Blood Urea Nitrogen 27 mg/dL (8-26); Calcium 9.2 mg/dL (8.6-10.8); Carbon Dioxide 27 mEq/L (19-29); Chloride 104 mEq/L (98-109); Glucose 380 mg/dL (70-99); Osmolality,Calculated 305 (280-300); Potassium 3.9 mEq/L (3.5-4.5); Sodium 137 mEq/L (136-145); eGFR For African Americans > 60 (> 60); eGFR For Non-African Americans 59 (> 60)
[2017-05-09] MEDS ORDERED: Furosemide 40 MG/4 ML VIAL IVP SCH (15:00)
[2017-05-09] MEDS ORDERED: Azithromycin 500 MG in D5% in Water 250 ML IVPB SCH (15:00)
[2017-05-09] MEDS ORDERED: ALPRAZolam 0.5 MG TABLET PO SCH (15:00)
--- NOTE | 2017-05-09 15:12 | Internal Med History&Physical ---
Date of Encounter: 05/09/17 Time of Encounter: 15:09 Assessment and Plan (1) Acute CHF (congestive heart failure) Current visit: Yes Status: Acute We will start the patient on laisx 40 mg IV twice-daily. Strict intake and output Qualifiers: Qualified Code(s): I50.9 - Heart failure, unspecified (2) COPD exacerbation Current visit: Yes Status: Acute Nebulizer treatment, prednisone 40 mgdaily Levaquin for acute bronchitis, (3) Diabetes mellitus Current visit: Yes Status: Acute Continue home regimen in addition to sliding scale Qualifiers: Qualified Code(s): E11.9 - Type 2 diabetes mellitus without complications (4) Anemia Current visit: Yes Status: Acute Chronic anemia likely anemia of chronic disease. No obvious GI blood loss. Check stool For occult blood Qualifiers: Qualified Code(s): D64.9 - Anemia, unspecified Internal Medicine - H&P: HPI Chief complaint: sob History of present illness: Mr. Ramirez is a 67 year old male presents to the emergency room today from retirement with a main complain of shortness of breath. For the past day or so patient has been noticing progressive shortness of breath to the point where a short of breath at rest in addition to swelling of both lower extremities. He mentioned that he has been having a nonproductive cough . He denies any fever or chills. He denies any sputum production. He has been found to be hypoxic by paramedics. Past Med Surg Social Fam HX - Past Medical History Medical history: arthritis, cirrhosis, CHF, COPD, coronary artery disease, diabetes, GERD, hyperlipidemia, hypertension, liver disease, osteoporosis, TIA Psychiatric history: anxiety, depression, panic disorder, PTSD, previous psychiatric hospitalization - Past Surgical History Surgical History: appendectomy, cholecystectomy, herniorrhaphy, knee replacement , other - Social History Smoking Status: Never smoker Smokeless Tobacco Status: No Alcohol use: none Drug use: none - Family History Mother Adopted: No Living Status: Hx Family Cancer: Yes Hx Family Endocrine Disorder: Yes (DM2) Hx Family Neurologic Disorders: Yes (mother of brain tumor per pt) Father Living Status: Hx Family Cardiac Disorders: No Internal Medicine - H&P: Meds Cholecalciferol (Vitamin D3) [Vitamin D] 2,000 unit PO DAILY 05/13/15 [History] Insulin ASPART [NovoLOG] 35 unit SQ TIDAC 05/13/15 [History] Aspirin Enteric Coated [Aspirin EC] 81 mg PO DAILY 11/13/15 [History] Atorvastatin [Lipitor] 40 mg PO HS 11/13/15 [History] Insulin Glargine,Hum.rec.anlog [Lantus Solostar] 80 unit SQ BID 11/13/15 [ History] Omeprazole [PriLOSEC] 20 mg PO DAILY 11/13/15 [History] Tamsulosin [Flomax] 0.4 mg PO DAILY 11/13/15 [History] Furosemide [Lasix] 40 mg PO DAILY 05/16/16 [History] risperiDONE [Risperdal] 3 mg PO HS 05/16/16 [History] Atenolol [Tenormin] 50 mg PO DAILY 05/29/16 [History] Ipratropium/Albuterol Neb [Duoneb] 3 ml IH QID 08/10/16 [History] Sertraline [Zoloft] 100 mg PO HS 10/27/16 [History] Spironolactone [Aldactone] 50 mg PO DAILY 10/27/16 [History] Lisinopril 2.5 mg PO HS 02/03/17 [History] Melatonin [Melatin] 9 mg PO HS 02/03/17 [History] Insulin ASPART [NovoLOG] 3 - 8 unit SQ TID PRN 04/06/17 [History] Lidocaine Patch [Lidoderm 5% patch] 1 each TP DAILY 04/06/17 [History] Rifaximin [Xifaxan] 550 mg PO BID 04/06/17 [History] ALPRAZolam [Xanax 0.5 MG Tablet] 0.25 mg PO TID 04/07/17 [History] 3 Allergy/AdvReac Type Severity Reaction Status Date / Time Iodinated Contrast- Oral and Allergy Difficulty Verified 03/01/17 19:16 IV Dye Breathing ketorolac [From Toradol] Allergy Nausea Verified 03/01/17 19:16 Penicillins Allergy Rash Verified 03/01/17 19:16 butorphanol [From Stadol] AdvReac Nausea Verified 03/01/17 19:16 celecoxib AdvReac unknown Verified 03/01/17 19:16 diphenhydramine AdvReac See Verified 09/25/17 19:16 [From Benadryl] Comments gabapentin AdvReac unknown Verified 03/01/17 19:16 Methadone AdvReac See Verified 03/01/17 19:16 Comments mirtazapine AdvReac unknown Verified 03/01/17 19:16 morphine AdvReac See Verified 03/01/17 19:16 Comments tramadol AdvReac unknown Verified 02/03/17 21:00 vancomycin AdvReac unknown Verified 02/03/17 21:00 All Systems PM: A 10-system review of systems was performed and is negative for pertinent findings except as documented above in the HPI. Review of systems: 10 point review of systems is negative except for HPI - Constitutional Vitals: Temp Pulse Resp BP Pulse Ox 97.9 F 72 20 147/81 95 05/09/17 13:51 05/09/17 12:22 05/09/17 13:51 05/09/17 13:51 05/09/17 12:22 Exam: Gen.: patient is alert oriented times 3 not in distress Jil: normal S1 S2 no additional sounds are murmurs chest: course breast sound crackles in bases abdomen: soft nontender nondistended normal bowel sounds lower extremity: 2+ swelling Internal Med - H&P Results - Labs CBC & Chem 7: 05/09/17 11:08 05/09/17 11:08
[2017-05-09 15:55] VITALS: BP 121/70
[2017-05-09] MEDS ORDERED: 0.9 % Sodium Chloride 1,000 ML ONE (16:31)
[2017-05-09] MEDS ORDERED: Ipratropium/Albuterol Neb 3 ML IH SCH (17:00)
[2017-05-09] MEDS ORDERED: *HR* EPINEPHrine 1 MG/10 ML SYRINGE IVP ONE (17:09)
--- NOTE | 2017-05-09 19:24 | Discharge Summary ---
Date of Encounter: 05/09/17 Time of Encounter: 19:20 - Discharge Diagnosis (1) Acute CHF (congestive heart failure) Priority: Primary Status: Acute Qualifiers: Qualified Code(s): I50.9 - Heart failure, unspecified (2) COPD exacerbation Priority: Primary Status: Acute (3) Diabetes mellitus Priority: Primary Status: Acute Qualifiers: Qualified Code(s): E11.9 - Type 2 diabetes mellitus without complications (4) Anemia Priority: Primary Status: Acute Qualifiers: Qualified Code(s): D64.9 - Anemia, unspecified - Discharge Medications Home Medications: Cholecalciferol (Vitamin D3) [Vitamin D] 2,000 unit PO DAILY 05/13/15 [History] Insulin ASPART [NovoLOG] 35 unit SQ TIDAC 05/13/15 [History] Aspirin Enteric Coated [Aspirin EC] 81 mg PO DAILY 11/13/15 [History] Atorvastatin [Lipitor] 40 mg PO HS 11/13/15 [History] Insulin Glargine,Hum.rec.anlog [Lantus Solostar] 80 unit SQ BID 11/13/15 [ History] Omeprazole [PriLOSEC] 20 mg PO DAILY 11/13/15 [History] Tamsulosin [Flomax] 0.4 mg PO DAILY 11/13/15 [History] Furosemide [Lasix] 40 mg PO DAILY 05/16/16 [History] risperiDONE [Risperdal] 3 mg PO HS 05/16/16 [History] Atenolol [Tenormin] 50 mg PO DAILY 05/29/16 [History] Ipratropium/Albuterol Neb [Duoneb] 3 ml IH QID 08/10/16 [History] Sertraline [Zoloft] 100 mg PO HS 10/27/16 [History] Spironolactone [Aldactone] 50 mg PO DAILY 10/27/16 [History] Lisinopril 2.5 mg PO HS 02/03/17 [History] Melatonin [Melatin] 9 mg PO HS 02/03/17 [History] Insulin ASPART [NovoLOG] 3 - 8 unit SQ TID PRN 04/06/17 [History] Lidocaine Patch [Lidoderm 5% patch] 1 each TP DAILY 04/06/17 [History] Rifaximin [Xifaxan] 550 mg PO BID 04/06/17 [History] ALPRAZolam [Xanax 0.5 MG Tablet] 0.25 mg PO TID 04/07/17 [History] Allergies/Adverse Reactions: 3 Allergy/AdvReac Type Severity Reaction Status Date / Time Iodinated Contrast- Oral and Allergy Difficulty Verified 03/01/17 19:16 IV Dye Breathing ketorolac [From Toradol] Allergy Nausea Verified 03/01/17 19:16 Penicillins Allergy Rash Verified 03/01/17 19:16 butorphanol [From Stadol] AdvReac Nausea Verified 03/01/17 19:16 celecoxib AdvReac unknown Verified 03/01/17 19:16 diphenhydramine AdvReac See Verified 03/01/17 19:16 [From Benadryl] Comments gabapentin AdvReac unknown Verified 03/01/17 19:16 Methadone AdvReac See Verified 03/01/17 19:16 Comments mirtazapine AdvReac unknown Verified 03/01/17 19:16 morphine AdvReac See Verified 03/01/17 19:16 Comments tramadol AdvReac unknown Verified 02/03/17 21:00 vancomycin AdvReac unknown Verified 02/03/17 21:00 Date of admission: 05/09/17 13:27 Primary care physician: PCP EUGENIO - Patient Status Disposition: Condition: Fair - Discharge Instructions Follow Up With: EUGENIO,PCP [Primary Care Provider] - Interval History: 67-year-old male who presented to the hospital with respiratory distress due to CHF exacerbation and COPD exacerbation. I saw the patient in the emergency room. The patient was comfortable speaking in full sentences on 2 L of oxygen. He was started on treatment for congestive heart failure exacerbation as well as COPD exacerbation. After arrival to the floor patient went into a cardiorespiratory arrest. He was found in the bathroom on responses cyanotic. CPR was initiated according to ACLS protocol but unfortunately was not successful and patient . Hospital course: Mr. Ramirez is a 67 year old male - Time Spent with Patient Total time spent providing and/or coordinating discharge services: - Constitutional Vitals: Temp Pulse Resp BP Pulse Ox 97.6 F 72 16 121/70 94 05/09/17 15:55 05/09/17 15:55 05/09/17 15:55 05/09/17 15:55 05/09/17 15:55 Exam: patient cyanotic. CPR in progress.
[2017-05-09] MEDS ORDERED: Insulin DETEMIR 100 UNIT/ML X5UNITS SQ SCH (21:00)
[2017-05-09] MEDS ORDERED: RisperiDAL 3 MG TABLET PO SCH (21:00)
--- NOTE | 2017-05-09 21:09 | Anesthesia Progress Note ---
Date of Encounter: 05/09/17 Time of Encounter: 17:00 Anesthesia Note - Note Note: called to unit stat call, patient lying on floor compressions and bag mask ventilation in progress, VS unstable SpO2 unregistered, HR by compression only, no palpable spontaneous pulses, intubated with ease CMAC #8 tube open VC first pass, immediate ETCO2, SpO2 increased to 89-91% variable, airway management with ETT intact to respiratory. 05/09/17 21:01
[2017-05-10] MEDS ORDERED: Aspirin Enteric Coated 81 MG Tablet PO SCH (09:00)
[2017-05-10] MEDS ORDERED: predniSONE 20 MG TABLET PO SCH (09:00)
[2017-05-10] MEDS ORDERED: Levofloxacin 750 MG/150 ML 750 MG/150 ML BAG IVPB SCH (09:00)
== END 2017-05-09 17:10 | disposition expired ==
LOC: 3BNU 10:18 → EMEROO 10:18 → 3BNU 14:11
PROVIDERS: ADMIT Hospitalist; ATTEND Registered Nurse